=== PATIENT | male | born 1950 | race Hispanic/Latino ===

== ENCOUNTER 2025-02-10 00:29 | Inpatient (IN) | payer OTHER ==
[~2025-02-10] VITALS: Ht 170.2 cm; Wt 88.9 kg
[2025-02-10] VITALS (11 sets, daily range): BP systolic 103–124; BP diastolic 58–73; PULSE 54–71; RESP 16–18; TEMP 97.6–98; O2SAT 98
[2025-02-10] MEDS: 0.9% NACL 500ML IV.SOLN 500 ML IV ONE (00:53)
[2025-02-10] MEDS ORDERED: 0.9%NACL 1000ML 1,000 ML IV ONE (01:00)
[2025-02-10 01:03] LABS: IMMATURE GRANULOCYTE ABSOLUTE 0.03 K/uL (0-1); NUCLEATED RED BLOOD CELLS 0.0 % (0.0-0.19); PLATELET COUNT (AUTO) 177 K/uL (130-400); RED BLOOD CELL COUNT(AUTO) 5.65 MIL/uL (4.50-6.20); RED CELL DISTRIBUTION WIDTH 13.6 % (11.0-15.5); WHITE BLOOD COUNT (AUTO) 9.9 K/uL (4.8-10.8)
[2025-02-10 01:06] LABS: INR 1.06 (0.85-1.15)
[2025-02-10 01:07] LABS: CREATINE KINASE, TOTAL 106.0 U/L (21-232); CREATININE 1.3 mg/dL (0.5-1.3); GLOMERULAR FILTR. RATE CALC 57.0 mL/min (>90); SODIUM SERUM 138.0 mmol/L (136-145); UREA NITROGEN, BLOOD 21.0 mg/dL (7-18)
[2025-02-10 01:08] LABS: GLUCOSE,RANDOM 464.0 mg/dL (70-105)
--- NOTE | 2025-02-10 01:33 | ERN ---
General Chief Complaint: Chest Pain Stated Complaint: CHEST PAIN. SOB Time Seen by MD: 00:30 Time Seen by Midlevel: 00:30 Source: patient History of Present Illness Initial Comments The patient is a 74-year-old male with a past medical history of type 2 diabetes and hypertension presenting to the emergency department for evaluation of chest pain that started a proximally 1 hour prior to arrival. Patient states he was going to bed when the chest pain started. On arrival with the chest pain has improved. Allergies: Coded Allergies: No Known Drug Allergies (Unverified Allergy, Unknown, 08/31/15) Home Meds Reported Medications Metformin HCl (Metformin HCl) 500 Mg Tablet, 500 MG PO BID, TAB 08/31/15 Past Medical History Past Medical History: Diabetes-Type II, High Cholesterol Past Surgical History: Cholecystectomy, Other Surgical History Other: CARDIAC STENTS ROS Dictation CONSTITUTIONAL: Negative except for HPI HEAD/FACE: Negative except for HPI EENT: Negative except for HPI RESPIRATORY: Negative except for HPI GASTROINTESTINAL/ABDOMINAL: Negative except for HPI GENITOURINARY: Negative except for HPI MUSCULOSKELETAL: Negative except for HPI INTEGUMENTARY: Negative except for HPI NEUROLOGICAL/PSYCH: Negative except for HPI HEMATOLOGIC/LYMPHATIC: Negative except for HPI All Systems Negative, Except as noted above. 13 point review of systems assessed and all negative except for above. Physical Exam Physical Exam Dictation Vital Signs reviewed General Appearance: Alert, oriented x 3, no acute distress, well developed, nourished. Head and Face: non-traumatic. Eyes: PERRL, pink conjunctivas, eyelid no trauma, anterior chamber with arcus senilis. Ears: Pinnas intact and no signs of trauma or erythema ear canals clear and no discharge TM no erythema Nose: No discharge, no bleeding. Oropharynx: Mouth normal, tongue pink, pharynx clear,no erythema, tonsils no exudates, no abscesses noted, mucous membrane moist Neck: Supple, non-tender, no thyromegaly, no masses, no JVD, no bruits Breast:Deferred Chest:No tenderness, no crepitus, no paradoxical movement, no retractions Lungs:Clear, well-ventilated, symmetric, no rales, no wheezing, no rhonchi, no stridor, good breath sounds bilaterally Heart: Regular rate, regular rhythm, no murmur, no gallops Vascular: no peripheral edema, Abdomen: Soft, positive bowel sounds, nondistended, no guarding, nontender, no rebound, no masses no hepatomegaly, no splenomegaly, no Correa's sign, no hernias. Rectal: Deferred Genital: Deferred Neurological: Normal speech, motor function intact, sensory function intact Musculoskeletal: Neck nontender, full range of motion, back nontender, full range of motion, Extremities: nontender, full range of motion Skin: Color pink, dry, no turgor, no rash, no lacerations, no abrasions, no contusions. Lymphatic: Deferred Results Laboratory and Microbiology Lab and Micro Result Laboratory Tests Test 02/10/25 00:40 02/10/25 00:43 02/10/25 01:37 White Blood Count 9.9 K/uL (4.8-10.8) Red Blood Count 5.65 MIL/uL (4.50-6.20) Hemoglobin 16.9 g/dL (14.0-18.0) Hematocrit 50.1 % (42-54) Mean Corpuscular Volume 88.7 fL (79-99) Mean Corpuscular Hemoglobin 29.9 pg (27.0-33.0) Mean Corpuscular Hemoglobin Concent 33.7 g/dL (32.0-36.0) Red Cell Distribution Width 13.6 % (11.0-15.5) Platelet Count 177 K/uL (130-400) Mean Platelet Volume 11.2 fL (7.5-10.5) H Immature Granulocyte % (Auto) 0.3 % (0-1) Neutrophils (%) (Auto) 46.0 % (40.0-77.0) Lymphocytes (%) (Auto) 41.9 % (21.0-51.0) Monocytes (%) (Auto) 6.9 % (3.0-13.0) Eosinophils (%) (Auto) 4.2 % (0.0-8.0) Basophils (%) (Auto) 0.7 % (0.0-5.0) Neutrophils # (Auto) 4.6 K/uL (1.8-7.7) Lymphocytes # (Auto) 4.2 K/uL (1.0-4.8) Monocytes # (Auto) 0.7 K/uL (0.1-1.0) Eosinophils # (Auto) 0.42 K/uL (0.00-0.70) Basophils # (Auto) 0.07 K/uL (0.00-0.20) Absolute Immature Granulocyte (auto 0.03 K/uL (0-1) Nucleated Red Blood Cells 0.0 % (0.0-0.19) Prothrombin Time 11.2 SEC (9.6-11.6) Prothromb Time International Ratio 1.06 (0.85-1.15) Activated Partial Thromboplast Time 27.6 SEC (26.3-35.5) Sodium Level 138 mmol/L (136-145) Potassium Level 3.8 mmol/L (3.5-5.1) Chloride Level 99 mmol/L (101-111) L Carbon Dioxide Level 29 mmol/L (21-32) Blood Urea Nitrogen 21 mg/dL (7-18) H Creatinine 1.3 mg/dL (0.5-1.3) Glomerular Filtration Rate Calc 57 mL/min (>90) Random Glucose 464 mg/dL (70-105) *H Total Calcium 9.0 mg/dL (8.5-10.1) Magnesium Level 1.90 mg/dL (1.80-2.40) Total Creatine Kinase 106 U/L (21-232) # Troponin I High Sensitivity 21 ng/L (4-75) 174 ng/L (4-75) *H B-Type Natriuretic Peptide 217 pg/mL (0-100) H Whole Blood Glucose 439 MG/DL (70-110) *H Bedside Glucose Comment Notified Nurse Labs Reviewed?: Yes MDM MDM: The patient is a 74-year-old male with a past medical history of type 2 diabetes and hypertension presenting to the emergency department for evaluation of chest pain that started a proximally 1 hour prior to arrival. Patient states he was going to bed when the chest pain started. On arrival with the chest pain has improved. On physical examination the patient is in no acute distress. Initial vital signs are stable. CBC shows no leukocytosis, no anemia, no thrombocytopenia. Chemistries reveal hyperglycemia with a random glucose of 464. CO2 normal. Anion gap normal. Patient is not in DKA. Patient was given 500 cc of IV fluids and was given 5 units of regular IV insulin. Initial troponin is negative. Initial EKG shows normal sinus rhythm with no ST elevations or ST depressions noted. A repeat troponin was performed which is now elevated at 174. A repeat EKG was performed which shows ST depressions consistent with an NSTEMI. Patient was started on heparin. Case discussed with benchmark service who agrees to admit for further observation and management. Differential diagnosis: NSTEMI, STEMI, costochondritis Rationale: Tests considered and ordered secondary to shared decision making include: Previous outside records reviewed: Old ER visits. Risk of complication and/or morbidity or mortality of patient management: None Medications-Per medication reconciliation Need for hospitalization: Patient does meet criteria for hospitalization. Need for emergency major/minor surgery: No There are no social concerns with this patient. Prescription drug management Prescriptions will include symptomatic care Patient's prior external medical records from other ER visits were reviewed by me as indicated. Prior testing and results from previous visits were reviewed. Prior tests were taken into account with medical decision making and resource utilization, independent historian/historians were used to obtain complete medical history. I independently interpreted the test that were performed, results were reviewed by me and considered findings on radiology if ordered. Medical management and examination interpretation discussions were had by me with other qualified healthcare professionals as indicated for the patient's care. ED Course Orders Procedure Category Date Status Time 12 Lead Ekg Tracing- EKG 02/10/25 Logged Technical 00:30 B-Type Natriuretic LAB 02/10/25 Complete Peptide 00:30 Cbc With Differential LAB 02/10/25 Complete 00:30 Basic Metabolic Panel LAB 02/10/25 Complete 00:30 Creatine Kinase, Total LAB 02/10/25 Complete 00:30 Magnesium LAB 02/10/25 Complete 00:30 Pt And Ptt LAB 02/10/25 Complete 00:30 Troponin I High LAB 02/10/25 Complete Sensitivity 00:30 Chest 1vw RAD 02/10/25 Taken 00:30 Bedside Glucose CPOE 02/10/25 Transmitted Fingerstick 00:41 0.9%Nacl 1000ml (Ns PHA 02/10/25 Complete 1000ml) 01:00 0.9% Nacl 500ml PHA 02/10/25 Complete Iv.Soln (Ns 500ml 01:00 Troponin I High LAB 02/10/25 Complete Sensitivity 01:40 Insulin Regular, PHA 02/10/25 Complete Human 3ml (Humulin R 01:30 Bedside Glucose CPOE 02/10/25 Transmitted Fingerstick 02:22 Current Medications Medications (Trade) Dose Ordered Sig/Carol Route PRN Reason Start Time Stop Time Status Last Admin Dose Admin Insulin Human Regular (humuLIN R 100 UNIT/ML 3ML) 5 unit ONCE ONCE IV 02/10/25 01:30 02/10/25 01:31 DC 02/10/25 01:30 Sodium Chloride 500 ml @ 0 mls/hr ONCE ONCE IV 02/10/25 01:00 02/10/25 01:01 DC 02/10/25 00:53 Sodium Chloride 1,000 ml @ 0 mls/hr ONCE ONCE IV 02/10/25 01:00 02/10/25 00:46 DC Vital Signs Date Time Temp Pulse Resp B/P (MAP) Pulse Ox O2 Delivery O2 Flow Rate FiO2 02/10/25 00:49 76 12 95/68 96 Room Air* 0 21 02/10/25 00:30 96.4 85 18 96/61 96 Room Air HEART Score Response (Comments) Value History: Moderate suspicion (+1) 1 EKG: Repolarization changes 1 Age: > 65yrs (+2) 2 Risk Factors: 1-2 risk factors (+1) 1 Initial Troponin: >3x Normal Limit (+2) 2 HEART Score Risk: High Risk for MACE (7-10) Total 7 DX & DISP Disposition: Inpatient Departure Impression: Primary Impression: Chest pain Additional Impressions: Non-STEMI (non-ST elevated myocardial infarction), Hyperglycemia Condition: Stable Referrals: NELLY DAVIS MD (PCP) Time of Disposition: 02:46 I have reviewed the case, and I agree with, Diagnosis and Plan I performed the substantive portion of the visit. I have reviewed and personally made and approve the management plan that is documented in the note by myself or the [facility]TON. I acknowledge for responsibility for the patient's management plan. ORLANDO PRAJAPATI PAC Feb 10, 2025 01:33
[2025-02-10] MEDS: ASPIRIN 325MG TAB PO ONE (02:32)
--- NOTE | 2025-02-10 02:49 | HMCIMG ---
EXAM: CR Chest, 1 view CLINICAL HISTORY: Shortness of breath. COMPARISON: None provided. FINDINGS: The lungs show no infiltrates or other acute findings. No pleural effusion or pneumothorax. The cardiomediastinal silhouette is within normal limits. No acute osseous abnormality. IMPRESSION: No acute cardiopulmonary process is evident. /[place]
--- NOTE | 2025-02-10 04:33 | NUR ---
Keyon DUFF,HOIST WORKER AT BEDSIDE
[2025-02-10] MEDS ORDERED: GLUCAGON 1MG KIT 1 MG ML IM PRN (05:00)
[2025-02-10] MEDS ORDERED: NITROGLYCERIN 0.4 MG SL TAB SL PRN (05:00)
[2025-02-10] MEDS ORDERED: DEXTROSE 50%-WATER 50 ML DISP.SYRIN IV PRN (05:00)
--- NOTE | 2025-02-10 05:28 | HP ---
[facility] Date of Service: Feb 10, 2025 Time of Service: 05:02 PCP: Zahraa Salvador HISTORY OF PRESENT ILLNESS: This is a 74-year-old male,a [employer] by m[employer]onism whith past medical history of diabetes, hyperlipidemia and NE/coronary artery disease with cardiac stent who presented to the Ed for complaints of midsternal chest pain that is non radiating associated with diaphoresis and this happened when patient was laying down in bed aroun 11:50 pm last night and decided to come to the ED for evaluation.Patient reports pain was persistent.As per patient he had a history of heart attack before and underwent a stent placement.Patient reports the only medication he is taking is Metformin.Patient states he is supposed to be on Aspirin but has stopped taking it.Patient reports he occasionally drinks beer and last drink was yesterday ,had 2 beers he said. Seen and examined patient in the ER awake,alert and coherent,appears comfortable.Patient denies fever,chills,cough,nausea,vomiting,palpitation and shortness of breath. Latest vital signs temperature 98.2, heart rate 75, blood pressure 124/70 saturation 97% on room air. Labs: CBC unremarkable. Chloride 99, BUN 21, random glucose 469 to 439 to 327. Troponin from 21-174. ECG result revealed revealed sinus rhythm heart rate 85 with atrial premature complex anterolateral infarct age indeterminate. Second EKG result revealed sinus rhythm heart rate 73 with left anterior fascicular block. Probable anterolateral infarct age indeterminate. Abnormal T consider ischemia lateral leads.. Chest x-ray result revealed no acute cardiopulmonary process is evident. While in the ER patient received 1500 mL NS bolus, insulin 5 units IV, aspirin 325 mg p.o. and patient was started on heparin drip per ACS protocol. We will admit patient for further medical management. REVIEW OF SYSTEMS CONSTITUTIONAL: Complain of diaphoresis Denies fevers, chills, or night sweats. No unintentional weight loss reported. NEUROLOGICAL: Denies headache, amaurosis fugax, motor weakness, sensory deficit, vertigo/spinning sensation, gait abnormalities, or tremors. ENT: No hearing loss, otalgia, otorrhea, rhinitis, rhinorrhea, hoarseness, or sore throat. CARDIOVASCULAR: Complain of midsternal chest pain Deniesdyspnea on exertion, orthopnea, paroxysmal nocturnal dyspnea, palpitations, life-threatening arrhythmias, claudication. PULMONARY: Denies any shortness of breath, cough, phlegm/sputum, hemoptysis, pleuritic chest pain. SLEEP: Denies morning headaches, daytime somnolence or napping. Denies difficulty falling asleep, staying asleep, waking from sleep. Denies knowledge of snoring. GASTROINTESTINAL: Denies any type of dysphagia to either liquids or solids. Denies nausea, vomiting, pyrosis, early satiety, abdominal pain, diarrhea, constipation, or changes in stool consistency or caliber. Denies coffee-ground emesis, hematemesis, hematochezia, or melanotic stools. GENITOURINARY: Denies frequency, urgency, nocturia, hematuria or incontinence (Storage/Irritative symptoms.) Low urinary stream, straining to void, urinary intermittency or hesitancy, splitting of the voiding stream, terminal dribbling. ENDOCRINOLOGIC: Denies polyuria, polydipsia, polyphagia or heat/cold intolerances. HEMATOLOGIC: Denies thrombophilia/previous clots, or coagulopathy/bleeding disorders. ONCOLOGIC: Denies personal history of malignancy. DERMATOLOGIC: Denies rashes or pruritus. PSYCHIATRIC: Denies any suicidal or homicidal ideation. Denies hallucinations. PAST MEDICAL HISTORY: [ Diabetes, hyperlipidemia, NE/coronary artery disease ] PAST SURGICAL HISTORY: [ Cardiac stent, cholecystectomy and left inguinal hernia repair ] PAST SOCIAL HISTORY: [ Patient lives with . Patient admits he drinks two beer yesterday. Patient reports he occasional drinks alcohol denies cigarette and recreational drug use. ] FAMILY HISTORY: [ Diabetes, cardiovascular disease, asthma and cancer ] Coded Allergies: No Known Drug Allergies (Unverified Allergy, Unknown, 08/31/15) PHYSICAL EXAM GENERAL APPEARANCE: The patient is awake, alert, and oriented, in no acute cardiopulmonary distress. NEUROLOGICAL: Cranial nerves II-XII grossly intact. Motor is 5/5 in bilateral upper and lower extremities proximal to distal. No sensory deficits. HEENT: Face is symmetric. Pupils are equal and reactive. Extraocular movements are intact. NECK: Supple. No JVD. No thyromegaly. No submental, submandibular, pre- /postauricular, occipital or supraclavicular lymphadenopathy. CHEST: Normal chest expansion. No Telemetry. LUNGS: Absence of any rales, rhonchi or any wheezing. CARDIOVASCULAR: Regular. S1 and S2 normal. No appreciable rubs, murmurs or g allops. ABDOMEN: Soft, nontender, and nondistended. There is no rebound, voluntary gua rding, or rigidity. : Deferred. No De Jesus. EXTREMITIES: Non-edematous and not cyanotic. No clubbing. Good capillary refill. SKIN: No skin breakdown. Vital Sign (Last 24 Hours) 02/10/25 03:54 Temp 98.2 Pulse 75 Resp 16 B/P (MAP) 124/70 Pulse Ox 97 O2 Delivery Room Air* O2 Flow Rate 0 FiO2 21 LABS: Laboratory: Test 02/10/25 03:51 02/10/25 01:37 02/10/25 00:43 02/10/25 00:40 Range/Units Whole Blood Glucose 327 H 70-110 MG/DL Troponin I High Sensitivity 174 *H 4-75 ng/L Bedside Glucose Comment Notified Nurse White Blood Count 9.9 4.8-10.8 K/uL Red Blood Count 5.65 4.50-6.20 MIL/uL Hemoglobin 16.9 14.0-18.0 g/dL Hematocrit 50.1 42-54 % Mean Corpuscular Volume 88.7 79-99 fL Mean Corpuscular Hemoglobin 29.9 27.0-33.0 pg Mean Corpuscular Hemoglobin Concent 33.7 32.0-36.0 g/dL Red Cell Distribution Width 13.6 11.0-15.5 % Platelet Count 177 130-400 K/uL Mean Platelet Volume 11.2 H 7.5-10.5 fL Immature Granulocyte % (Auto) 0.3 0-1 % Neutrophils (%) (Auto) 46.0 40.0-77.0 % Lymphocytes (%) (Auto) 41.9 21.0-51.0 % Monocytes (%) (Auto) 6.9 3.0-13.0 % Eosinophils (%) (Auto) 4.2 0.0-8.0 % Basophils (%) (Auto) 0.7 0.0-5.0 % Neutrophils # (Auto) 4.6 1.8-7.7 K/uL Lymphocytes # (Auto) 4.2 1.0-4.8 K/uL Monocytes # (Auto) 0.7 0.1-1.0 K/uL Eosinophils # (Auto) 0.42 0.00-0.70 K/uL Basophils # (Auto) 0.07 0.00-0.20 K/uL Absolute Immature Granulocyte (auto 0.03 0-1 K/uL Nucleated Red Blood Cells 0.0 0.0-0.19 % Prothrombin Time 11.2 9.6-11.6 SEC Prothromb Time International Ratio 1.06 0.85-1.15 Activated Partial Thromboplast Time 27.6 26.3-35.5 SEC Sodium Level 138 136-145 mmol/L Potassium Level 3.8 3.5-5.1 mmol/L Chloride Level 99 L 101-111 mmol/L Carbon Dioxide Level 29 21-32 mmol/L Blood Urea Nitrogen 21 H 7-18 mg/dL Creatinine 1.3 0.5-1.3 mg/dL Glomerular Filtration Rate Calc 57 >90 mL/min Random Glucose 464 *H 70-105 mg/dL Total Calcium 9.0 8.5-10.1 mg/dL Magnesium Level 1.90 1.80-2.40 mg/dL Total Creatine Kinase 106 # 21-232 U/L B-Type Natriuretic Peptide 217 H 0-100 pg/mL Current Medications Medications (Trade) Dose Ordered Sig/Carol Route PRN Reason Start Time Stop Time Status Last Admin Dose Admin Acetaminophen (TYLenol 325MG TAB) 650 mg Q4H PRN PO MILD PAIN (1-3) 02/10/25 05:00 03/12/25 04:59 Acetaminophen (TYLenol 325MG TAB) 650 mg Q6H PRN PO TEMPERATURE GREATER THAN 101.5 02/10/25 05:00 03/12/25 04:59 Aspirin (Aspirin 81mg Ec Tab) 81 mg DAILY PO 02/10/25 09:00 03/12/25 08:59 Dextrose (D50w) 50 ml AD PRN IV HYPOGLYCEMIA PROTOCOL 02/10/25 05:00 03/12/25 04:59 Famotidine (Pepcid 20mg Tab) 20 mg DAILY PO 02/10/25 09:00 03/12/25 08:59 Glucagon (Glucagon 1mg Kit) 1 mg AD PRN IM HYPOGLYCEMIA PROTOCOL 02/10/25 05:00 03/12/25 04:59 Heparin Sodium/ Dextrose 250 ml @ 0 mls/hr PROTOCOL IV 02/10/25 03:00 03/12/25 02:59 02/10/25 03:00 16.2 MLS/HR Insulin Human Regular (humuLIN R 100 UNIT/ML 3ML) INSULIN SLIDING SCAL... Q4H SQ 02/10/25 05:00 03/12/25 04:59 Magnesium Sulfate 50 ml @ 0 mls/hr PROTOCOL PRN IV OTHER [SEE ORDER COMMENTS] 02/10/25 05:00 03/12/25 04:59 Nitroglycerin (Nitrostat) 0.4 mg PROTOCOL PRN SL CHEST PAIN 02/10/25 05:00 03/12/25 04:59 Ondansetron HCl (zoFRAN 4MG INJ) 4 mg Q6H PRN IV NAUSEA/VOMITING 02/10/25 05:00 03/12/25 04:59 Potassium Chloride 100 ml @ 100 mls/hr AD PRN IV POTASSIUM PROTOCOL 02/10/25 05:00 03/12/25 04:59 Potassium Chloride (K-Dur/Klor-Con 20meq) 20 meq AD PRN PO POTASSIUM PROTOCOL 02/10/25 05:00 03/12/25 04:59 Potassium Chloride (KCl 10% Elixir 20meq/15ml) 20 meq AD PRN PO POTASSIUM PROTOCOL 02/10/25 05:00 03/12/25 04:59 Sodium Chloride 1,000 ml @ 100 mls/hr Q10H IV 02/10/25 05:00 03/12/25 04:59 DIAGNOSTICS / RADIOLOGY: [ ] ASSESSMENT: Chest pain rule out ACS: NSTEMI POA Hyperglycemia secondary to uncontrolled diabetes POA Hyperlipidemia POA Obesity POA NE/Coronary artery disease with cardiac stent POA PLAN: We will admit patient in PCCU We will start on consistent carb diet We will start on aspirin 81 mg p.o. daily We will start on famotidine 20 mg p.o. daily for GI prophylaxis We will start NS @ 100 ml / hr x 1 bag and re evaluate We will replace electrolytes as needed per protocol We will start on insulin sliding scale q.4 hours with hypoglycemia protocol We will add prn medication for fever,pain,cough , nausea and vomiting We will reconcile home meds once medlist available We will trend troponin q.6 x3 We will request for echocardiogram We will seek Cardiology consultation We will request labs in am Further orders to follow depending on above results Case discussed with attending physician and came up with above treatment and plan of care. ADVANCED CARE PLANNING 1. Which of the following were discussed? Hospice Care - No Therapeutic options - Yes Advance Directives - No Other discussions - 2. Discussed with who? Patient and Emily 3. Voluntary nature of this service was explained to the patient? Yes 4. Amount of time spent - _24 min 5. Reviewed by Physician? (if this service was performed by NPP) Yes Patient seen and examined by me. Agree with note by WIND UP OPERATOR SEE ADDITIONAL ORDERS PER CHART DISCUSSED WITH NURSING STAFF MIGUEL DUFF DATA KEYER Feb 10, 2025 05:28
[2025-02-10] MEDS: 0.9%NACL 1000ML 1,000 ML IV SCH (05:56)
--- NOTE | 2025-02-10 06:05 | EKG ---
[facility] Test Date: 2025-02-10 Test Time: 02:31:00 Pat Name: EMMY GRACE Department: [facility]HIP Room: 201 Gender: M Photogeologist: [id number] : 1950 Requested By: ORLANDO PRAJAPATI Order Number: [id number] Reading MD: Benjamin Don Measurements Intervals [place] Rate: 73 P: 36 [place]: 170 QRS: -42 QRSD: 88 T: 186 QT: 367 QTc: 404 Interpretive Statements Sinus rhythm Left anterior fascicular block Old extensive anteroalateral myocardial infarction. Inferolateral ischemic changes. Compared to ECG 03/10/2016 06:24:08 Left anterior fascicular block now present ST-wave abnormality now present Possible ischemia now present Myocardial infarct finding still present Electronically Signed On 02-10-2025 19:03:15 SLIPPER MAKER by Benjamin Don Please click the below link to view image of tracing.
--- NOTE | 2025-02-10 06:06 | EKG ---
[facility] Test Date: 2025-02-10 Test Time: 00:27:05 Pat Name: EMMY GRACE Department: EDHIP Room: 201 Gender: M Licensed Occupational Therapist: [id number] : 1950 Requested By: ORLANDO PRAJAPATI Order Number: [id number] Reading MD: Benjamin Don Measurements Intervals [place] Rate: 85 P: 44 [place]: 171 QRS: -10 QRSD: 100 T: 73 QT: 357 QTc: 424 Interpretive Statements Sinus rhythm Atrial premature complex Anterolateral infarct, age indeterminate Compared to ECG 03/10/2016 06:24:08 Atrial premature complex(es) now present Myocardial infarct finding still present Electronically Signed On 02-10-2025 19:02:10 SITE PROMOTION AGENT by Benjamin Don Please click the below link to view image of tracing.
[2025-02-10 09:09] LABS: INR 1.01 (0.85-1.15)
[2025-02-10] MEDS: FAMOTIDINE 20MG TAB PO SCH (09:11)
[2025-02-10] MEDS: ASPIRIN 81 MG EC TAB PO SCH (09:11)
--- NOTE | 2025-02-10 09:21 | NUR ---
DCP:HOME Pt currently lives at home with his Emily Coffey [phone]. Pt states that he uses a cane at home to ambulate. Pt does not have any home health or provider services. Pt states that he is able to complete ADL independently. PCP is [place] [facility] and uses [facility] for any RX needs. At DC pt will want to go home and family can assist with transportation.
[2025-02-10 10:02] LABS: APPEARANCE,URINE CLEAR (CLEAR); GLUCOSE, URINE (UA) >=1000 mg/dL (NEGATIVE); LEUKOCYTE ESTERASE ,URINE NEGATIVE Leu/uL (NEGATIVE); NITRATE,URINE NEGATIVE (NEGATIVE); OCCULT BLOOD,URINE NEGATIVE (NEGATIVE)
[2025-02-10 10:03] LABS: ADD UA MICROSCOPIC YES
[2025-02-10 10:28] LABS: SQUAMOUS EPITHELIAL CELL,UR RARE /HPF (0-2)
--- NOTE | 2025-02-10 11:51 | PN ---
[facility] PROGRESS NOTE Date of Service: Feb 10, 2025 Time of Service: 11:27 HISTORY OF PRESENT ILLNESS: This is a 74-year-old male,a [employer] whith past medical history of diabetes, hyperlipidemia and AZ/coronary artery disease with cardiac stent who presented to the Ed for complaints of midsternal chest pain that is non radiating associated with diaphoresis and this happened when patient was laying down in bed aroun 11:50 pm last night and decided to come to the ED for evaluation.Patient reports pain was persistent.As per patient he had a history of heart attack before and underwent a stent placement.Patient reports the only medication he is taking is Metformin.Patient states he is supposed to be on Aspirin but has stopped taking it.Patient reports he occasionally drinks beer and last drink was yesterday ,had 2 beers he said. Seen and examined patient in the ER awake,alert and coherent,appears comfortable.Patient denies fever,chills,cough,nausea,vomiting,palpitation and shortness of breath. Latest vital signs temperature 98.2, heart rate 75, blood pressure 124/70 saturation 97% on room air. Labs: CBC unremarkable. Chloride 99, BUN 21, random glucose 469 to 439 to 327. Troponin from . ECG result revealed revealed sinus rhythm heart rate 85 with atrial premature complex anterolateral infarct age indeterminate. Second EKG result revealed sinus rhythm heart rate 73 with left anterior fascicular block. Probable anterolateral infarct age indeterminate. Abnormal T consider ischemia lateral leads.. Chest x-ray result revealed no acute cardiopulmonary process is evident. While in the ER patient received 1500 mL NS bolus, insulin 5 units IV, aspirin 325 mg p.o. and patient was started on heparin drip per ACS protocol. SUBJECTIVE: 02/10/25: Patient was seen and evaluated in ED9. Patient was alert, awake and orientedX3. Patient reports that he doesn't have any chest pain today. Patient reports occasional shortness of breath during nights. Patient denies any shortness of breath, nausea, vomiting, palpitations and lightheadedness. Patient denies any abdominal pain, burning urination. Patient mentions that he only takes metformin 3-4 times per week and has stopped taking aspirin because it wasn't reconciled. Troponin from . 2D ECHO was done, pending results. Patient is currently on Heparin drip REVIEW OF SYSTEMS CONSTITUTIONAL: Denies fevers, chills, or night sweats. No unintentional weight loss reported. NEUROLOGICAL: Denies headache, amaurosis fugax, motor weakness, sensory deficit, vertigo/spinning sensation, gait abnormalities, or tremors. ENT: No hearing loss, otalgia, otorrhea, rhinitis, rhinorrhea, hoarseness, or sore throat. CARDIOVASCULAR: Denies chest pain, dyspnea on exertion, orthopnea, paroxysmal nocturnal dyspnea, palpitations, life-threatening arrhythmias, claudication. PULMONARY: Denies any shortness of breath, cough, phlegm/sputum, hemoptysis, pleuritic chest pain. SLEEP: Denies morning headaches, daytime somnolence or napping. Denies difficulty falling asleep, staying asleep, waking from sleep. Denies knowledge of snoring. GASTROINTESTINAL: Denies any type of dysphagia to either liquids or solids. Denies nausea, vomiting, pyrosis, early satiety, abdominal pain, diarrhea, constipation, or changes in stool consistency or caliber. Denies coffee-ground emesis, hematemesis, hematochezia, or melanotic stools. GENITOURINARY: Denies frequency, urgency, nocturia, hematuria or incontinence (Storage/Irritative symptoms.) Low urinary stream, straining to void, urinary intermittency or hesitancy, splitting of the voiding stream, terminal dribbling. ENDOCRINOLOGIC: Denies polyuria, polydipsia, polyphagia or heat/cold intolerances. HEMATOLOGIC: Denies thrombophilia/previous clots, or coagulopathy/bleeding disorders. ONCOLOGIC: Denies personal history of malignancy. DERMATOLOGIC: Denies rashes or pruritus. PSYCHIATRIC: Denies any suicidal or homicidal ideation. Denies hallucinations. PHYSICAL EXAM GENERAL APPEARANCE: The patient is awake, alert, and oriented, in no acute cardiopulmonary distress. NEUROLOGICAL: Cranial nerves II-XII grossly intact. Motor is 5/5 in bilateral upper and lower extremities proximal to distal. No sensory deficits. HEENT: Face is symmetric. Pupils are equal and reactive. Extraocular movements are intact. NECK: Supple. No JVD. No thyromegaly. No submental, submandibular, pre- /postauricular, occipital or supraclavicular lymphadenopathy. CHEST: Normal chest expansion. No Telemetry. LUNGS: Absence of any rales, rhonchi or any wheezing. CARDIOVASCULAR: Regular. S1 and S2 normal. No appreciable rubs, murmurs or gallops. ABDOMEN: Soft, nontender, and nondistended. There is no rebound, voluntary guarding, or rigidity. : Deferred. No De Jesus. EXTREMITIES: Non-edematous and not cyanotic. No clubbing. Good capillary refill. SKIN: No skin breakdown. Vital Signs (last 8hr) Date Time Temp Pulse Resp B/P (MAP) Pulse Ox O2 Delivery O2 Flow Rate FiO2 02/10/25 07:28 97.9 71 14 121/69 98 Room Air* 0 21 02/10/25 05:58 98.1 71 16 111/68 97 Room Air* 0 21 02/10/25 03:54 98.2 75 16 124/70 97 Room Air* 0 21 LABS: Laboratory: Test 02/10/25 09:10 02/10/25 08:54 02/10/25 08:51 02/10/25 01:37 Range/Units Urine Color LIGHT-YELLOW YELLOW Urine Appearance CLEAR CLEAR Urine pH 5.5 5.0-8.0 Urine Specific [place] 1.039 H 1.001-1.031 Urine Protein NEGATIVE NEGATIVE mg/dL Urine Glucose (UA) >=1000 H NEGATIVE mg/dL Urine Ketones 10 H NEGATIVE mg/dL Urine Occult Blood NEGATIVE NEGATIVE Urine Nitrate NEGATIVE NEGATIVE Urine Bilirubin NEGATIVE NEGATIVE mg/dL Urine Urobilinogen 0.2 0.2-1.0 mg/dL Urine Leukocyte Esterase NEGATIVE NEGATIVE Minerva/uL Urine RBC 0-1 0-1 /HPF Urine WBC 6-10 H 0-1 /HPF Urine Squamous Epithelial Cells RARE 0-2 /HPF Urine Bacteria None None Seen /HPF Whole Blood Glucose 285 H 70-110 MG/DL Prothrombin Time 10.7 9.6-11.6 SEC Prothromb Time International Ratio 1.01 0.85-1.15 Activated Partial Thromboplast Time 59.9 #H 26.3-35.5 SEC Whole Blood Ketones Quantitative 0.4 0.0-0.6 mmol/L Troponin I High Sensitivity 174 *H 4-75 ng/L Test 02/10/25 00:43 02/10/25 00:40 Range/Units Bedside Glucose Comment Notified Nurse White Blood Count 9.9 4.8-10.8 K/uL Red Blood Count 5.65 4.50-6.20 MIL/uL Hemoglobin 16.9 14.0-18.0 g/dL Hematocrit 50.1 42-54 % Mean Corpuscular Volume 88.7 79-99 fL Mean Corpuscular Hemoglobin 29.9 27.0-33.0 pg Mean Corpuscular Hemoglobin Concent 33.7 32.0-36.0 g/dL Red Cell Distribution Width 13.6 11.0-15.5 % Platelet Count 177 130-400 K/uL Mean Platelet Volume 11.2 H 7.5-10.5 fL Immature Granulocyte % (Auto) 0.3 0-1 % Neutrophils (%) (Auto) 46.0 40.0-77.0 % Lymphocytes (%) (Auto) 41.9 21.0-51.0 % Monocytes (%) (Auto) 6.9 3.0-13.0 % Eosinophils (%) (Auto) 4.2 0.0-8.0 % Basophils (%) (Auto) 0.7 0.0-5.0 % Neutrophils # (Auto) 4.6 1.8-7.7 K/uL Lymphocytes # (Auto) 4.2 1.0-4.8 K/uL Monocytes # (Auto) 0.7 0.1-1.0 K/uL Eosinophils # (Auto) 0.42 0.00-0.70 K/uL Basophils # (Auto) 0.07 0.00-0.20 K/uL Absolute Immature Granulocyte (auto 0.03 0-1 K/uL Nucleated Red Blood Cells 0.0 0.0-0.19 % Sodium Level 138 136-145 mmol/L Potassium Level 3.8 3.5-5.1 mmol/L Chloride Level 99 L 101-111 mmol/L Carbon Dioxide Level 29 21-32 mmol/L Blood Urea Nitrogen 21 H 7-18 mg/dL Creatinine 1.3 0.5-1.3 mg/dL Glomerular Filtration Rate Calc 57 >90 mL/min Random Glucose 464 *H 70-105 mg/dL Total Calcium 9.0 8.5-10.1 mg/dL Magnesium Level 1.90 1.80-2.40 mg/dL Total Creatine Kinase 106 # 21-232 U/L B-Type Natriuretic Peptide 217 H 0-100 pg/mL Current Medications Medications (Trade) Dose Ordered Sig/Carol Route PRN Reason Start Time Stop Time Status Last Admin Dose Admin Acetaminophen (TYLenol 325MG TAB) 650 mg Q4H PRN PO MILD PAIN (1-3) 02/10/25 05:00 03/12/25 04:59 Acetaminophen (TYLenol 325MG TAB) 650 mg Q6H PRN PO TEMPERATURE GREATER THAN 101.5 02/10/25 05:00 03/12/25 04:59 Aspirin (Aspirin 81mg Ec Tab) 81 mg DAILY PO 02/10/25 09:00 03/12/25 08:59 02/10/25 09:11 81 MG Dextrose (D50w) 50 ml AD PRN IV HYPOGLYCEMIA PROTOCOL 02/10/25 05:00 03/12/25 04:59 Famotidine (Pepcid 20mg Tab) 20 mg DAILY PO 02/10/25 09:00 03/12/25 08:59 02/10/25 09:11 20 MG Glucagon (Glucagon 1mg Kit) 1 mg AD PRN IM HYPOGLYCEMIA PROTOCOL 02/10/25 05:00 03/12/25 04:59 Heparin Sodium/ Dextrose 250 ml @ 0 mls/hr PROTOCOL IV 02/10/25 03:00 03/12/25 02:59 02/10/25 03:00 16.2 MLS/HR Insulin Human Regular (humuLIN R 100 UNIT/ML 3ML) INSULIN SLIDING SCAL... Q4H SQ 02/10/25 05:00 02/10/25 11:10 DC 02/10/25 09:15 6 UNIT Insulin Human Regular (humuLIN R 100 UNIT/ML 3ML) INSULIN SLIDING SCAL... Q6H6 SQ 02/10/25 12:00 03/12/25 04:59 Magnesium Sulfate 50 ml @ 0 mls/hr PROTOCOL PRN IV OTHER [SEE ORDER COMMENTS] 02/10/25 05:00 03/12/25 04:59 Nitroglycerin (Nitrostat) 0.4 mg PROTOCOL PRN SL CHEST PAIN 02/10/25 05:00 03/12/25 04:59 Ondansetron HCl (zoFRAN 4MG INJ) 4 mg Q6H PRN IV NAUSEA/VOMITING 02/10/25 05:00 03/12/25 04:59 Potassium Chloride 100 ml @ 100 mls/hr AD PRN IV POTASSIUM PROTOCOL 02/10/25 05:00 03/12/25 04:59 Potassium Chloride (K-Dur/Klor-Con 20meq) 20 meq AD PRN PO POTASSIUM PROTOCOL 02/10/25 05:00 03/12/25 04:59 Potassium Chloride (KCl 10% Elixir 20meq/15ml) 20 meq AD PRN PO POTASSIUM PROTOCOL 02/10/25 05:00 03/12/25 04:59 Sodium Chloride 1,000 ml @ 100 mls/hr Q10H IV 02/10/25 05:00 03/12/25 04:59 02/10/25 05:56 100 MLS/HR DIAGNOSTICS / RADIOLOGY: [place] [address] [address] IMAGING REPORT Signed PATIENT: EMMY GRACE MR#: [id number] : 1950 SEX: M AGE: 74 LOCATION: [facility] ORDER STATUS: REG ER REPORT#: [id number] SERVICE REASON: sob ORDERING PHYSICIAN: ORLANDO PRAJAPATI PAC PROCEDURE: CXR1VW - CHEST 1VW EXAM: CR Chest, 1 view CLINICAL HISTORY: Shortness of breath. COMPARISON: None provided. FINDINGS: The lungs show no infiltrates or other acute findings. No pleural effusion or pneumothorax. The cardiomediastinal silhouette is within normal limits. No acute osseous abnormality. IMPRESSION: No acute cardiopulmonary process is evident. /[place] DICTATED BY: LAN BURR Jr., MD DATE: 02/10/25347 ELECTRONICALLY SIGNED BY: LAN BURR Jr., MD DATE: 02/10/25347 ASSESSMENT: Chest pain rule out ACS: NSTEMI POA Hyperglycemia secondary to uncontrolled diabetes POA Hyperlipidemia POA Medication noncompliance, POA Obesity POA AZ/Coronary artery disease with cardiac stent POA PLAN: Chest pain rule out ACS: NSTEMI POA: * On presentation patient vitals were temperature 98.2, heart rate 75, blood pressure 124/70 saturation 97% on room air. Pertinent labs - Troponin from 21- 174. Total CK-106 * EKG was done which revealed sinus rhythm heart rate 85 with atrial premature complex anterolateral infarct age indeterminate. Second EKG result revealed sinus rhythm heart rate 73 with left anterior fascicular block. Probable anterolateral infarct age indeterminate. Abnormal T consider ischemia lateral leads. * PERC score was one, Wells score was zero. Very low suspicion for Pulmonary Embolism. * Chest x-ray was done, results show no acute cardiopulmonary process * 2-D ECHO was ordered, pending results. * Lipid panel was ordered, pending results. * Cardiology was consulted, will follow their recommendations. * Started on Heparin drip. * Started patient on aspirin 81 mg p.o. daily * Troponin trends 21>174 * Will trend troponin q.6 x3 Hyperglycemia secondary to uncontrolled diabetes POA: * On presentation Random blood glucose levels 469>439>327. * Ketones - 0.4, Anion gap was 10. DKA was ruled out. * Patient started on Insulin Sliding Scale with monitoring Q6H. * Started patient on IV fluids Sodium Chloride 1000mls @ 100mls/hr. * Endocrinology was consulted, will follow their recommendations. Supportive measures * GI prophylaxis with Famotidine * DVT prophylaxis with SCD's. Already on Heparin. ATTESTATION BY PHYSICIAN I have seen and examined the patient. I reviewed the documentation, medical decision making, and treatment plan as noted by the resident physician above. I agree with the findings and plan of care. DIANNE STEELE MD, SHAJI MD Feb 10, 2025 11:51
--- NOTE | 2025-02-10 12:53 | CONS ---
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 He presented to the emergency room with acute onset of midsternal chest pressure associated with diaphoresis but no dyspnea, beginning at about midnight prompting ER visit. He ruled in for an NSTEMI with initial troponin of 21 increasing further to 174 on the 2nd troponin. His 12 lead EKG in the ER demonstrates an extensive old anterior wall ME with QS is from V1 to V4 and [address] depressions leads 2, AVF, and V5 and V6. Preliminary report of the 2D echo today demonstrated an LVEF of 35-40%. He has had no recurrent chest discomfort since approximately 1 hour after arrival. Past Medical History: As per HPI and summarized below Past Surgical History: Hernia repair Cholecystectomy Family History: Noncontributory Social History: Noncontributory Habits: Never smoker. Occasional alcohol consumption. Denies illicit drug use Home Meds: Metformin 100 mg b.i.d. Current Meds: Medications Dose Ordered Sig/Carol Start Time Stop Time Status Last Admin Heparin Sodium/ Dextrose 250 ml @ 0 mls/hr PROTOCOL 02/10/25 03:00 03/12/25 02:59 02/10/25 03:00 Acetaminophen 650 mg Q6H PRN 02/10/25 05:00 03/12/25 04:59 Acetaminophen 650 mg Q4H PRN 02/10/25 05:00 03/12/25 04:59 Ondansetron HCl 4 mg Q6H PRN 02/10/25 05:00 03/12/25 04:59 Nitroglycerin 0.4 mg PROTOCOL PRN 02/10/25 05:00 03/12/25 04:59 Famotidine 20 mg DAILY 02/10/25 09:00 03/12/25 08:59 02/10/25 09:11 Sodium Chloride 1,000 ml @ 100 mls/hr Q10H 02/10/25 05:00 03/12/25 04:59 02/10/25 05:56 Dextrose 50 ml AD PRN 02/10/25 05:00 03/12/25 04:59 Glucagon 1 mg AD PRN 02/10/25 05:00 03/12/25 04:59 Magnesium Sulfate 50 ml @ 0 mls/hr PROTOCOL PRN 02/10/25 05:00 03/12/25 04:59 Potassium Chloride 100 ml @ 100 mls/hr AD PRN 02/10/25 05:00 03/12/25 04:59 Potassium Chloride 20 meq AD PRN 02/10/25 05:00 03/12/25 04:59 Potassium Chloride 20 meq AD PRN 02/10/25 05:00 03/12/25 04:59 Aspirin 81 mg DAILY 02/10/25 09:00 03/12/25 08:59 02/10/25 09:11 Insulin Human Regular INSULIN SLIDING SCAL... Q6H6 02/10/25 12:00 03/12/25 04:59 02/10/25 13:09 Review of Systems: CONST: No fever, fatigue, or weight changes. EYES: No recent vision problems. ENT: No congestion, ear pain, or sore throat. C/V: Chest pressure with associated diaphoresis prompting ER visit. Denies palpitations and dyspnea. RESP: No cough, congestion, wheezing or shortness of breath. GI: No abdominal pain, nausea, vomiting, constipation, or diarrhea. : No incontinence or dysuria. SKIN: No rash. NEURO: No headache, focal numbness or weakness, dizziness, or seizures. PSYCH: No depression or anxiety. HEME: No abnormal bruising or bleeding. LYMPH: No swollen glands. Physical Examination: GENERAL: No acute distress. HEAD: Normal with no signs of head trauma. EYES: PERRLA, EOMI, conjunctiva and sclera normal. ENT: Hearing grossly intact, normal oropharynx. NECK: Supple without JVD. There is no tenderness, lymphadenopathy, or masses. No thyromegaly. Normal carotid upstrokes without bruits. LUNGS: Clear breath sounds bilaterally. No wheezes, or rhonchi. HEART: Normal rate and rhythm. Normal S1 and S2 without murmurs, gallop or rub. VASC: Peripheral pulses +2 bilaterally. ABD: Bowel sounds normal, soft, nontender, no masses, no organomegaly. No audible bruits. : Not examined LYMPH: No lymphadenopathy noted. EXT: No clubbing, cyanosis, in 1+ left pedal edema. SKIN: No rashes or lesions noted. NEURO: Awake, alert, and oriented x3. No focal sensory or strength deficits noted. Vital Signs (last 8hr) Date Time Temp Pulse Resp B/P (MAP) Pulse Ox O2 Delivery O2 Flow Rate FiO2 02/10/25 12:02 98.1 61 14 105/63 95 Room Air* 0 21 02/10/25 07:28 97.9 71 14 121/69 98 Room Air* 0 21 02/10/25 05:58 98.1 71 16 111/68 97 Room Air* 0 21 Laboratory: Hematology Labs: Test 02/10/25 00:40 Range/Units White Blood Count 9.9 4.8-10.8 K/uL Red Blood Count 5.65 4.50-6.20 MIL/uL Hemoglobin 16.9 14.0-18.0 g/dL Hematocrit 50.1 42-54 % Mean Corpuscular Volume 88.7 79-99 fL Mean Corpuscular Hemoglobin 29.9 27.0-33.0 pg Mean Corpuscular Hemoglobin Concent 33.7 32.0-36.0 g/dL Red Cell Distribution Width 13.6 11.0-15.5 % Platelet Count 177 130-400 K/uL Mean Platelet Volume 11.2 H 7.5-10.5 fL Immature Granulocyte % (Auto) 0.3 0-1 % Neutrophils (%) (Auto) 46.0 40.0-77.0 % Lymphocytes (%) (Auto) 41.9 21.0-51.0 % Monocytes (%) (Auto) 6.9 3.0-13.0 % Eosinophils (%) (Auto) 4.2 0.0-8.0 % Basophils (%) (Auto) 0.7 0.0-5.0 % Neutrophils # (Auto) 4.6 1.8-7.7 K/uL Lymphocytes # (Auto) 4.2 1.0-4.8 K/uL Monocytes # (Auto) 0.7 0.1-1.0 K/uL Eosinophils # (Auto) 0.42 0.00-0.70 K/uL Basophils # (Auto) 0.07 0.00-0.20 K/uL Absolute Immature Granulocyte (auto 0.03 0-1 K/uL Nucleated Red Blood Cells 0.0 0.0-0.19 % Chemistry Labs: Test 02/10/25 11:51 02/10/25 08:51 02/10/25 01:37 02/10/25 00:43 Range/Units Whole Blood Glucose 239 H 70-110 MG/DL Whole Blood Ketones Quantitative 0.4 0.0-0.6 mmol/L Troponin I High Sensitivity 174 *H 4-75 ng/L Bedside Glucose Comment Notified Nurse Test 02/10/25 00:40 Range/Units Sodium Level 138 136-145 mmol/L Potassium Level 3.8 3.5-5.1 mmol/L Chloride Level 99 L 101-111 mmol/L Carbon Dioxide Level 29 21-32 mmol/L Blood Urea Nitrogen 21 H 7-18 mg/dL Creatinine 1.3 0.5-1.3 mg/dL Glomerular Filtration Rate Calc 57 >90 mL/min Random Glucose 464 *H 70-105 mg/dL Total Calcium 9.0 8.5-10.1 mg/dL Magnesium Level 1.90 1.80-2.40 mg/dL Total Creatine Kinase 106 # 21-232 U/L B-Type Natriuretic Peptide 217 H 0-100 pg/mL Coagulation Labs: Test 02/10/25 08:51 Range/Units Prothrombin Time 10.7 9.6-11.6 SEC Prothromb Time International Ratio 1.01 0.85-1.15 Activated Partial Thromboplast Time 59.9 #H 26.3-35.5 SEC Diagnostics / Radiology: Impression and Plan: Non-STEMI with initial troponin of 21 increasing to 174, with associated inferolateral ischemic EKG changes: CAD status post remote extensive anterior wall ME 03/09/2016 s/p 2.5 x 23 mm Xience Alpine BLAIR to the proximal to mid LAD, 2.5 x 8 mm Xience Alpine BLAIR to the mid LAD, and 2.25 by 15 mm Xience Alpine BLAIR to the distal LAD: Noncompliance with antiplatelet therapy and statin therapy: -proceed with heparin drip as you are doing, Plavix 600 mg load followed by 75 mg daily, and aspirin 325 mg load followed by 81 mg daily -proceed with left heart catheterization. The complications, risks, alternatives, and benefits were discussed with the patient and he understands and wishes to proceed. Further recommendations will follow depending on the results of his cardiac catheterization. Moderate ischemic cardiomyopathy with LVEF of 35-40% by preliminary 2D echo 02/10/2025: Noncompliance with CHRISTIANNE inhibitor therapy in the past: Acute on chronic HFrEF: -furosemide 20 IV now and in a.m., with plans for reassessment (BNP of 217 with CHF changes on chest x-ray 02/10/2025) -begin Jardiance 10 mg daily, Entresto 24/26 mg 0.5 tablet p.o. b.i.d., and spironolactone 25 mg p.o. 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
[2025-02-10 13:19] LABS: INR 1.04 (0.85-1.15)
[2025-02-10] MEDS: EMPAGLIFLOZIN 10MG TABLET PO SCH (14:30)
[2025-02-10] MEDS: SPIRONOLACTONE 25 MG TAB PO SCH (14:30)
[2025-02-10] MEDS: ASPIRIN 325MG TAB PO SCH (14:32)
[2025-02-10] MEDS ORDERED: IOHEXOL-350 50ML VIAL IV ONE (15:22)
[2025-02-10] MEDS ORDERED: LIDOCAINE HCL 400MG/20ML VIAL ONE (15:22)
[2025-02-10] MEDS ORDERED: IOHEXOL 350 MG/ML 100ML INFUS..BTL IV ONE (15:22)
[2025-02-10] MEDS ORDERED: NITROGLYCERIN 50MG VIAL ONE (15:23)
[2025-02-10] MEDS ORDERED: HEParin-NS 1,000 UNIT/500 ML 1,000 ML IV ONE (15:23)
[2025-02-10] MEDS ORDERED: HEParin-NS 1,000 UNIT/500 ML 500 ML IV ONE (15:35)
[2025-02-10] MEDS ORDERED: MIDAZOLAM HCL 1 MG/ML 2ML VIAL ONE (15:40)
[2025-02-10] MEDS ORDERED: BIVALIRUDIN 250 MG/VIAL IV ONE (16:15)
--- NOTE | 2025-02-10 17:48 | PRN ---
DATE OF PROCEDURE: 02/10/2025 PROCEDURE PERFORMED: LEFT HEART CATHETERIZATION, LV-GRAM, LEFT AND RIGHT SELECTIVE CORONARY ANGIOGRAM, INJECTION OF RIGHT SUBCLAVIAN (ARTERIA LUSORIA), INJECTION OF RIGHT COMMON CAROTID, INJECTION OF LEFT SUBCLAVIAN, RIGHT COMMON FEMORAL ANGIOGRAM, MYNX CLOSURE OF RIGHT COMMON FEMORAL ARTERY, AND CONSCIOUS SEDATION PROCESSING OPERATOR: Benjamin Cannon MD, [facility] INDICATION: Small non STEMI, acute on chronic HFrEF, inferolateral ischemic EKG changes PROCEDURE NOTE: After informed consent was obtained the patient was prepped and draped in the usual sterile fashion. A 6 [place] arterial sheath was inserted in the right femoral artery using a micropuncture technique with a front wall, first pass puncture, with ultrasoud guidance. This was performed after fluoroscopic identification of bony landmarks to facilitate a more accurate puncture of the right common femoral artery. The arterial sheath was aspirated and flushed. A 6 [place] pigtail catheter was then advanced over a J-tipped guidewire to the ascending aorta and was prolapsed into the left ventricle. The catheter was aspirated and flushed and pressure measurements were obtained. A left ventriculogram was then performed in a 30 KOO projection. A pullback procedure was then performed, and this catheter was removed over a J-tipped guidewire. A 6F JL-4 was then advanced to the ascending aorta over a J-tipped guidewire, was aspirated and flushed, and was used for selective left coronary angiograms in multiple obliquities. A JR-4 was advanced in a similar fashion to the ascending aorta over a J-tipped guidewire and was used for selective right coronary angiograms in multiple obliquities with findings as outlined below. To assess suitability for use as a bypass conduit the JR4 was then used for selective injection of the left subclavian artery. 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 Mynx closure was successful without bleeding or hematoma. The patient tolerated the procedure well and was returned to the holding area in stable condition. FINDINGS: LEFT HEART HEMODYNAMICS: The patient's LVEDP was 22 mm of mercury prior to the LV-gram and unchanged at 22 mm of mercury after. There was no aortic valve gradient on pullback procedure. LEFT VENTRICULOGRAM: A left ventriculogram in a 30 degree KOO projection demonstrated only basal segments benjy with akinesis of the anteroapical wall, dyskinesis of the apex, and akinesis of the inferoapical wall. The LVEF estimate was 20%. There was no angiographic MR. CORONARY ANGIOGRAM: LEFT MAIN: The left main was normal. LEFT ANTERIOR DESCENDING: The LAD was chronically occluded just after a 1st diagonal branch with the o ngoing LAD noted to fill by [id number] collaterals. There was patency of the mid and distal LAD identified. The 1st diagonal had a 60% ostial stenosis and provided a collateral to the diagonal two. LEFT CIRCUMFLEX: The left circumflex had a 90% proximal stenosis and a 60% stenosis on the superior branch of the OM1 with a 70% stenosis on the inferior branch of the OM1. The distal left circumflex terminated in the AV groove as a small trifurcating terminal OM2. RAMUS INTERMEDIATE BRANCH: There was no ramus intermediate branch. RIGHT CORONARY ARTERY: The right coronary was dominant and had a 50% ostial stenosis, 75% proximal stenosis, 60 and 60% tandem mid RCA stenosis, and a 95% hazy-appearing distal RCA stenosis (culprit). The PDA had a 90% ostial stenosis. There were moderate sized PDA, PLVB1, and PLVB2 branches. IMPRESSION: Severe ischemic cardiomyopathy with LVEF of 20% and only basal segments con tracting. There may be significant viable myocardium in the circumflex and distal RCA distribution. Non STEMI (tiny) likely due to 95% distal RCA stenosis which provides collateral filling of a chronically occluded mid LAD. There was visible patency of the mid to distal LAD via collaterals from the RCA. Severe three-vessel CAD with occluded mid LAD, 90% proximal left circumflex, 95% distal RCA, and 90% ostial PDA. No aortic stenosis. No mitral regurgitation. 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 Suitable BISHOP for use as a bypass conduit. RECOMMENDATION: Consider coronary artery bypass grafting with either intra-aortic balloon pump or Impella support COMPLICATIONS OF PROCEDURE: None, the patient tolerated the procedure well and was returned to his room in stable condition. HEMOSTASIS: Mynx closure device successful without bleeding or hematoma. ESTIMATED BLOOD LOSS: Less than 10 mL. CONTRAST TOTAL: 155 mL. BENJAMIN CANNON MD Feb 10, 2025 17:48
--- NOTE | 2025-02-10 18:12 | HMCSR ---
APPROVED REPORT EXAM: Two-dimensional and M-mode echocardiogram with Doppler and color Doppler. INDICATION ICD: Non ST-elevation SC I21.4 2D Dimensions RVDd 3.4 cm LVEF(%) 35.5 (>50%) LA ESV INDEX (BP) 30.44 mL/m2 IVSd 1.1 (0.7-1.1cm) FS(%) 17 % LVDd 6.0 (3.8-5.6cm) LA (2D) 4.0 (1.6-4.0cm) PWd 0.9 (0.7-1.1cm) Ao Root(2D) 3.9 (2.0-3.7cm) IVSs 1.3 cm LVOT diam 2.3 (1.8-2.4cm) LVDs 5.0 (2.5-4.0cm) PWs 1.3 cm Deformation Strain Apical 4 -8.5 % Apical 2 -9.7 % Apical 3 -8.2 % Global Strain -8.8 % M-Mode Dimensions EPSS 1.9 cm LA (MM) 4.5 (1.6-4.0cm) Ao Root(MM) 4.2 (2.0-3.7cm) Aortic Valve AoV Vmax 0.9 m/s Ao Peak GR 3.5 mmHg LVOT Vmax 0.8 m/s AoV VTI 0.2 m Ao Mean GR 2.2 mmHg LVOT VTI 0.16 m MAHIN (VMAX) 3.74 cm2 Al P1/2T 735 ms MAHIN (VTI) 3.9 cm2 Mitral Valve MV E Vmax 94.1 cm/s DECEL Time 136 ms MV A Vmax 58.4 cm/s P 1/2 T 31 ms E/A ratio 1.6 MVA (PHT) 7.1 cm2 TDI E/E' Medial 23.6 E/E' Lateral 27.9 Medial E' Peak V 3.98 cm/s Lateral E' Peak V 3.37 cm/s Pulmonary Valve PV Vmax 0.8 m/s PI End Beatrice. Jose 184.0 cm/s PV Mean GR 1.5 mmHg PV Peak GR 2.7 mmHg Tricuspid Valve TR Vmax 1.6 m/s RAP (EST) 3 mmHg RVSP 13.7 mmHg TR Peak GR 10.7 mmHg Left Ventricle The left ventricle is normal size. Reduced GLS -9.0% Distal inferoseptal thinning and akinesis. Apical, apical lateral, and anteroapical thinning and akinesis. There is normal left ventricular wall thickness. LVEF is 25%. Stage III diastolic dysfunction. Right Ventricle The right ventricle is normal size. Right ventricular systolic function is borderline reduced. Atria The left atrium size is normal. The right atrium size is normal. Aortic Valve The aortic valve is trileaflet normal in structure. Trace of aortic regurgitation is present. There is no aortic valvular stenosis. Mitral Valve The mitral valve is normal in structure. There is trace mitral valve regurgitation noted. Posterior mitral annular calcification. There is no mitral valve stenosis. Tricuspid Valve The tricuspid valve is normal in structure. There is trace of tricuspid valve regurgitation noted. Pulmonic Valve The pulmonary valve is normal in structure. There is trace pulmonic valvular regurgitation. Great Vessels The aortic root is normal in size. The IVC is normal in size and collapses >50% with inspiration. Pericardium There is no pericardial effusion. Other Information Quality : Fair Conclusion The left ventricle is normal size. There is normal left ventricular wall thickness. Reduced GLS -9.0% Distal inferoseptal thinning and akinesis. Apical, apical lateral, and anteroapical thinning and akinesis. LVEF is 25%. Stage III diastolic dysfunction. There is trace mitral valve regurgitation noted. Posterior mitral annular calcification. There is trace of tricuspid valve regurgitation noted. There is no pericardial effusion.
[2025-02-10] MEDS: SACUBITRIL/VALSARTAN 1 EACH TABLET PO SCH (21:10)
[2025-02-11] VITALS (9 sets, daily range): BP systolic 97–120; BP diastolic 49–75; PULSE 63–74; RESP 18; TEMP 97.9–98.5; O2SAT 98
[2025-02-11 03:57] LABS: IMMATURE GRANULOCYTE ABSOLUTE 0.02 K/uL (0-1); NUCLEATED RED BLOOD CELLS 0.0 % (0.0-0.19); PLATELET COUNT (AUTO) 164 K/uL (130-400); RED BLOOD CELL COUNT(AUTO) 5.05 MIL/uL (4.50-6.20); RED CELL DISTRIBUTION WIDTH 13.9 % (11.0-15.5); WHITE BLOOD COUNT (AUTO) 8.6 K/uL (4.8-10.8)
[2025-02-11 04:16] LABS: ERYTHROCYTE SEDIMENTATION RATE 9 MM/HR (0-20)
[2025-02-11 04:32] LABS: ASPARTATE AMINOTRANSFERASE 73.0 U/L (10-37); CREATINE KINASE, TOTAL 287.0 U/L (21-232); CREATININE 0.8 mg/dL (0.5-1.3); GLOMERULAR FILTR. RATE CALC 92.0 mL/min (>90); GLUCOSE,RANDOM 199.0 mg/dL (70-105); LDL DIRECT 82.0 mg/dL (0-99); SODIUM SERUM 138.0 mmol/L (136-145); TOTAL PROTEIN, SERUM 5.9 g/dL (6.0-8.3); UREA NITROGEN, BLOOD 14.0 mg/dL (7-18)
--- NOTE | 2025-02-11 06:36 | CONS ---
CONSULT NOTE: Endocrinology Consult Chief complaint: chest pain Reason for consult: uncontrolled dm-2 DOS: 02/11/25 HISTORY OF PRESENT ILLNESS: This is a 74-year-old male,a Denominational by adventist whith past medical history of diabetes, hyperlipidemia and IA/coronary artery disease with cardiac stent who presented to the Ed for complaints of midsternal chest pain cardiac cath show triple vessel heart disease and CTS consulted. patient in the ER awake,alert and coherent,appears comfortable.Patient denies fever,chills,cough,nausea,vomiting,palpitation and shortness of breath. Latest vital signs temperature 98.2, heart rate 75, blood pressure 124/70 saturation 97% on room air. Labs: CBC unremarkable. Chloride 99, BUN 21, random glucose 469 to 439 to 327. Troponin from 21-174. ECG result revealed revealed sinus rhythm heart rate 85 with atrial premature complex anterolateral infarct age indeterminate. Second EKG result revealed sinus rhythm heart rate 73 with left anterior fascicular block. Probable anterolateral infarct age indeterminate. Abnormal T consider ischemia lateral leads.. Chest x-ray result revealed no acute cardiopulmonary process is evident. While in the ER patient received 1500 mL NS bolus, insulin 5 units IV, aspirin 325 mg p.o. and patient was started on heparin drip per ACS protocol. Home diabetic regimen: metformin 500 mg bid, Hba1c 13.9% REVIEW OF SYSTEMS CONSTITUTIONAL: Denies fevers, chills, or night sweats. No unintentional weight loss reported. NEUROLOGICAL: Denies headache, amaurosis fugax, motor weakness, sensory deficit, vertigo/spinning sensation, gait abnormalities, or tremors. ENT: No hearing loss, otalgia, otorrhea, rhinitis, rhinorrhea, hoarseness, or sore throat. CARDIOVASCULAR: Deniesdyspnea on exertion, orthopnea, paroxysmal nocturnal dyspnea, palpitations, life-threatening arrhythmias, claudication. PULMONARY: Denies any shortness of breath, cough, phlegm/sputum, hemoptysis, pleuritic chest pain. SLEEP: Denies morning headaches, daytime somnolence or napping. Denies difficulty falling asleep, staying asleep, waking from sleep. Denies knowledge of snoring. GASTROINTESTINAL: Denies any type of dysphagia to either liquids or solids. Denies nausea, vomiting, pyrosis, early satiety, abdominal pain, diarrhea, constipation, or changes in stool consistency or caliber. Denies coffee-ground emesis, hematemesis, hematochezia, or melanotic stools. GENITOURINARY: Denies frequency, urgency, nocturia, hematuria or incontinence (Storage/Irritative symptoms.) Low urinary stream, straining to void, urinary intermittency or hesitancy, splitting of the voiding stream, terminal dribbling. ENDOCRINOLOGIC: Denies polyuria, polydipsia, polyphagia or heat/cold intolerances. HEMATOLOGIC: Denies thrombophilia/previous clots, or coagulopathy/bleeding disorders. ONCOLOGIC: Denies personal history of malignancy. DERMATOLOGIC: Denies rashes or pruritus. PSYCHIATRIC: Denies any suicidal or homicidal ideation. Denies hallucinations. PAST MEDICAL HISTORY: [ Diabetes, hyperlipidemia, IA/coronary artery disease ] PAST SURGICAL HISTORY: [ Cardiac stent, cholecystectomy and left inguinal hernia repair ] PAST SOCIAL HISTORY: [ Patient lives with . Patient admits he drinks two beer yesterday. Patient reports he occasional drinks alcohol denies cigarette and recreational drug use. ] FAMILY HISTORY: [ Diabetes, cardiovascular disease, asthma and cancer ] Coded Allergies: No Known Drug Allergies (Unverified Allergy, Unknown, 08/31/15) PHYSICAL EXAM GENERAL APPEARANCE: The patient is awake, alert, and oriented, in no acute cardiopulmonary distress. NEUROLOGICAL: Cranial nerves II-XII grossly intact. Motor is 5/5 in bilateral upper and lower extremities proximal to distal. No sensory deficits. HEENT: Face is symmetric. Pupils are equal and reactive. Extraocular movements are intact. NECK: Supple. No JVD. No thyromegaly. No submental, submandibular, pre- /postauricular, occipital or supraclavicular lymphadenopathy. CHEST: Normal chest expansion. No Telemetry. LUNGS: Absence of any rales, rhonchi or any wheezing. CARDIOVASCULAR: Regular. S1 and S2 normal. No appreciable rubs, murmurs or gallops. ABDOMEN: Soft, nontender, and nondistended. There is no rebound, voluntary guarding, or rigidity. : Deferred. No De Jesus. EXTREMITIES: Non-edematous and not cyanotic. No clubbing. Good capillary refill. SKIN: No skin breakdown. ASSESSMENT: Hyperglycemia secondary to uncontrolled diabetes POA Home diabetic regimen: metformin 500 mg bid, Hba1c 13.9% glucose is uncontrolled at home and glucose is high, so insulin adjusted. Chest pain rule out ACS: NSTEMI POA triple vessel disease Hyperlipidemia POA Obesity POA IA/Coronary artery disease with cardiac stent POA PLAN: start Lantus 15 units daily and adjust for fasting glucose. start Regular insulin 3 units three times before meals and adjust for post- prandial glucose. Continue medium dose sliding scale insulin. Monitor glucose q x 6 hourly. Continue carb consistent diet. Keep glucose less than 180 mg/dl. Patient will need insulin at discharge. Thanks for allowing me to participate in patient care and will continue to follow up. Vital Signs 02/10/25 02/11/25 22:33 04:00 Temp 98.1 Pulse 63 Resp 18 B/P (MAP) 97/49 Pulse Ox 96 O2 Delivery Room Air O2 Flow Rate 0 FiO2 21 Hematology Labs: Test 02/11/25 03:13 Range/Units White Blood Count 8.6 4.8-10.8 K/uL Red Blood Count 5.05 4.50-6.20 MIL/uL Hemoglobin 15.0 14.0-18.0 g/dL Hematocrit 44.2 42-54 % Mean Corpuscular Volume 87.5 79-99 fL Mean Corpuscular Hemoglobin 29.7 27.0-33.0 pg Mean Corpuscular Hemoglobin Concent 33.9 32.0-36.0 g/dL Red Cell Distribution Width 13.9 11.0-15.5 % Platelet Count 164 130-400 K/uL Mean Platelet Volume 11.3 H 7.5-10.5 fL Immature Granulocyte % (Auto) 0.2 0-1 % Neutrophils (%) (Auto) 63.6 40.0-77.0 % Lymphocytes (%) (Auto) 23.0 21.0-51.0 % Monocytes (%) (Auto) 7.9 3.0-13.0 % Eosinophils (%) (Auto) 4.5 0.0-8.0 % Basophils (%) (Auto) 0.8 0.0-5.0 % Neutrophils # (Auto) 5.5 1.8-7.7 K/uL Lymphocytes # (Auto) 2.0 1.0-4.8 K/uL Monocytes # (Auto) 0.7 0.1-1.0 K/uL Eosinophils # (Auto) 0.39 0.00-0.70 K/uL Basophils # (Auto) 0.07 0.00-0.20 K/uL Absolute Immature Granulocyte (auto 0.02 0-1 K/uL Nucleated Red Blood Cells 0.0 0.0-0.19 % Erythrocyte Sedimentation Rate 9 0-20 MM/HR Chemistry Labs: Test 02/11/25 04:41 02/11/25 03:13 02/10/25 19:07 02/10/25 08:51 Range/Units Whole Blood Glucose 181 H 70-110 MG/DL Sodium Level 138 136-145 mmol/L Potassium Level 3.3 L 3.5-5.1 mmol/L Chloride Level 103 101-111 mmol/L Carbon Dioxide Level 26 21-32 mmol/L Blood Urea Nitrogen 14 7-18 mg/dL Creatinine 0.8 0.5-1.3 mg/dL Glomerular Filtration Rate Calc 92 >90 mL/min Random Glucose 199 H 70-105 mg/dL Hemoglobin A1c 13.9 H 4.0-6.0 % Estimated Average Glucose (eAG) 352 H 70-126 mg/dL Total Calcium 8.3 L 8.5-10.1 mg/dL Magnesium Level 1.60 L 1.80-2.40 mg/dL Total Bilirubin 1.6 H 0.2-1.0 mg/dL Aspartate Amino Transf (AST/SGOT) 73 H 10-37 U/L Alanine Aminotransferase (ALT/SGPT) 35 12-78 U/L Alkaline Phosphatase 60 50-136 U/L Total Creatine Kinase 287 #H 21-232 U/L Troponin I High Sensitivity 76714 *H 4-75 ng/L Total Protein 5.9 L 6.0-8.3 g/dL Albumin 3.1 L 3.5-5.0 g/dL Triglycerides Level 75 30-200 mg/dL Cholesterol Level 139 <200 mg/dL LDL Cholesterol 82 0-99 mg/dL HDL Cholesterol 49 29-71 mg/dL Thyroid Stimulating Hormone (TSH) 2.64 0.36-3.74 uIU/mL B-Type Natriuretic Peptide 488 H 0-100 pg/mL Whole Blood Ketones Quantitative 0.4 0.0-0.6 mmol/L Test 02/10/25 00:43 Range/Units Bedside Glucose Comment Notified Nurse Coagulation Labs: Test 02/11/25 05:23 02/10/25 12:56 Range/Units Activated Partial Thromboplast Time 27.1 26.3-35.5 SEC Prothrombin Time 11.0 9.6-11.6 SEC Prothromb Time International Ratio 1.04 0.85-1.15 Current Medications Medications (Trade) Dose Ordered Sig/Carol Route Start Time Stop Time Status Last Admin Dose Admin Aspirin (Aspirin 325mg Tab) 325 mg ONCE PO 02/10/25 14:30 02/10/25 17:22 DC 02/10/25 14:32 325 MG Aspirin (Aspirin 81mg Ec Tab) 81 mg DAILY PO 02/10/25 09:00 03/12/25 08:59 02/10/25 09:11 81 MG Clopidogrel Bisulfate (plaVIX 300MG TAB) 600 mg ONCE PO 02/10/25 14:00 02/10/25 17:22 DC 02/10/25 14:19 600 MG Clopidogrel Bisulfate (plaVIX 75MG) 75 mg DAILY PO 02/11/25 09:00 03/13/25 08:59 Empaglifozin (Jardiance 10mg) 10 mg DAILY PO 02/10/25 14:30 03/12/25 14:29 Famotidine (Pepcid 20mg Tab) 20 mg DAILY PO 02/10/25 09:00 03/12/25 08:59 02/10/25 09:11 20 MG Furosemide (LASix 20MG VIAL) 20 mg ONCE IV 02/10/25 17:00 02/10/25 21:00 DC 02/10/25 17:00 20 MG Furosemide (LASix 20MG VIAL) 20 mg ONCE IV 02/11/25 09:00 02/11/25 13:00 Heparin Sodium/ Dextrose 250 ml @ 0 mls/hr PROTOCOL IV 02/10/25 03:00 02/10/25 17:22 DC 02/10/25 03:00 16.2 MLS/HR Heparin Sodium/ Dextrose 250 ml @ 0 mls/hr Q6H IV 02/11/25 06:30 03/13/25 06:29 02/11/25 05:53 0 MLS/HR Insulin Human Regular (humuLIN R 100 UNIT/ML 3ML) INSULIN SLIDING SCAL... Q4H SQ 02/10/25 05:00 02/10/25 11:10 DC 02/10/25 09:15 6 UNIT Insulin Human Regular (humuLIN R 100 UNIT/ML 3ML) INSULIN SLIDING SCAL... Q6H6 SQ 02/10/25 12:00 03/12/25 04:59 02/11/25 05:09 2 UNIT Sacubitril/ Valsartan (Entresto 24 Mg-26 Mg Tablet) 0.5 each BID PO 02/10/25 21:00 03/12/25 20:59 02/10/25 21:10 0.5 EACH Sodium Chloride 1,000 ml @ 100 mls/hr Q10H IV 02/10/25 05:00 02/10/25 17:22 DC 02/10/25 14:20 100 MLS/HR Spironolactone (Aldactone 25mg) 25 mg DAILY PO 02/10/25 14:30 03/12/25 14:29 EUGENE ZARATE MD Feb 11, 2025 06:36
--- NOTE | 2025-02-11 07:25 | PN ---
[facility] Cardiology Progress Note CARDIOLOGY PROGRESS NOTE FEBRUARY 11, 2025 Problems: 1. Non ST-elevation myocardial infarction 2. Remote myocardial infarction status post stenting of the mid LAD and distal L AD February 2016 3. Multivessel CAD with ejection fraction of 20% per for Yazidi 5. Diabetes mellitus type 2 6. Dyslipidemia 7. Hypertension 8. 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 Buddhist 10. History of beta estela intolerance due to erectile dysfunction This patient was admitted with a non ST-elevation [place] and underwent left heart catheterization yesterday. He was found to have multivessel CAD with total occlusion of the LAD which fills via collaterals. Ejection fraction of 20%. This morning blood pressure is running 100 systolic heart rate is in the 60s the patient is afebrile. White count 8.6 hemoglobin 15 platelet count [id number]. Potassium 3.3 BUN 14 creatinine 0.8. [place] [address]. LDL olga lidia sterol of 82. The patient continues on aspirin clopidogrel empagliflozin famotidine heparin protocol insulin scale potassium protocol Entresto and spironolactone. Surgical consult has been requested. The patient has been pain-free overnight. Cath site shows no hematoma. Clopidogrel until a decision is made regarding surgery. MAGGIE PIKE MD Feb 11, 2025 07:25
--- NOTE | 2025-02-11 07:30 | NUR ---
DR. FRIED HERE AND SPOKE WITH PT CONCERNING SURGERY TO BYPASS HIS HEART OCCLUSIONS AND THE NEED TO USE THE IMPELLA 5 DURING AND AFTER SURGERY. PT WAS ADVISED OF THE RISKS INVOLVED WITH THE SURGERY AND WAS ALLOWED TO ASK QUESTIONS AND HAVE ALSO BEEN ADVISED THAT DR PACHECO WOULD BE THE SURGEON THAT WOULD PROBABLY BE DOING THE SURGERY AND PT AND HIS ASKED IF THEY WANTED FOR DR RICHARD TO DO IT HOW COULD THAT HAPPEN. DR. FRIED TOLD THEM THEY WOULD HAVE TO GO TO [place] TO HAVE THE SURGERY DONE. THEY WOULD LIKE TO CONSIDER THAT OPTION, DR FRIED TOLD THEM TO THINK ABOUT IT AND THAT HE WOULD BE BACK TOMORROW TO SEE THE PATIENT.
--- NOTE | 2025-02-11 11:49 | EKG ---
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 : [id number] Requested By: ORLANDO PRAJAPATI Order Number: [id number] Reading MD: Benjamin Don Measurements Intervals [place] Rate: 63 P: 33 DC: 159 QRS: -51 QRSD: 88 T: 0 QT: 383 QTc: 392 Interpretive Statements Sinus rhythm Inferior-lateral ischemia suspected Probable old anterior infarct, age indeterminate Compared to ECG 02/10/2025 02:31:00 Left anterior fascicular block no longer present Possible ischemia no longer present Myocardial infarct finding still present Electronically Signed On 02-11-2025 18:59:11 [employer]GER [employer]ARM by Benjamin Don Please click the below link to view image of tracing.
[2025-02-11 12:10] LABS: INR 1.09 (0.85-1.15)
--- NOTE | 2025-02-11 12:22 | CONS ---
SUBJECTIVE: The patient is a 74-year-old male with diabetes mellitus, hyperlipidemia, and known coronary artery disease, having undergone replacement of 3 stents in his left anterior descending artery in [address] elevation [place]. The patient has not always been compliant with his medications or his followup. The patient presented on this hospitalization with chest pain and diaphoresis and had an elevation in his troponins. His ischemic changes on his EKG were in the inferior leads and he was taken to the pharmacy laboratory technician where he was found to have multivessel coronary artery disease. The culprit lesion was felt to be his distal right coronary artery. His proximal LAD was occluded with retrograde filling of the LAD via the right system. He also had a 90% proximal left circumflex stenosis. On echocardiogram, the patient's ejection fraction was severely depressed and subjectively looked approximately 15% to 20%. Cardiovascular Surgery was consulted for possible coronary artery bypass grafting. OBJECTIVE: GENERAL: On exam, the patient is a pleasant elderly male, in no apparent distress. HEENT: Normocephalic, atraumatic. Extraocular movements intact. CHEST: He is breathing comfortably, off of oxygen. HEART: S1 and S2, and regular. LUNGS: Unlabored at rest on room air while sitting in bed in the upright position. His lungs are clear to auscultation. ABDOMEN: Reveals mild to moderate obesity. EXTREMITIES: Perfusion of his lower extremities appears adequate. LABORATORY DATA: His BUN is 14, creatinine 0.8. His CBC results are uneventful. His troponin started at 21 roughly 2 days ago and has bumped up to 14,000 today. His chest x-ray today appears clear. He had some mild interstitial edema on his initial chest x-ray on admission. ASSESSMENT AND PLAN: Multivessel coronary artery disease. I believe the patient would have a survival benefit and a better chance at symptom relief with coronary artery bypass grafting, which would be high risk given his age and low ejection fraction. I would perform the surgery with Impella left ventricular assist support. This was presented to the family. They are going to think about it. I will [place] back tomorrow and see what the decision is. TID: [id number] RECEIPT: [id number]
--- NOTE | 2025-02-11 14:22 | PN ---
[facility] PROGRESS NOTE Date of Service: Feb 11, 2025 Time of Service: 14:21 HISTORY OF PRESENT ILLNESS: This is a 74-year-old male,a Shinto by faith whith past medical history of diabetes, hyperlipidemia and HI/coronary artery disease with cardiac stent who presented to the Ed for complaints of midsternal chest pain that is non radiating associated with diaphoresis and this happened when patient was laying down in bed aroun 11:50 pm last night and decided to come to the ED for evaluation.Patient reports pain was persistent.As per patient he had a history of heart attack before and underwent a stent placement.Patient reports the only medication he is taking is Metformin.Patient states he is supposed to be on Aspirin but has stopped taking it.Patient reports he occasionally drinks beer and last drink was yesterday ,had 2 beers he said. Seen and examined patient in the ER awake,alert and coherent,appears comfortable.Patient denies fever,chills,cough,nausea,vomiting,palpitation and shortness of breath. Latest vital signs temperature 98.2, heart rate 75, blood pressure 124/70 saturation 97% on room air. Labs: CBC unremarkable. Chloride 99, BUN 21, random glucose 469 to 439 to 327. Troponin from -. ECG result revealed revealed sinus rhythm heart rate 85 with atrial premature complex anterolateral infarct age indeterminate. Second EKG result revealed sinus rhythm heart rate 73 with left anterior fascicular block. Probable anterolateral infarct age indeterminate. Abnormal T consider ischemia lateral leads.. Chest x-ray result revealed no acute cardiopulmonary process is evident. While in the ER patient received 1500 mL NS bolus, insulin 5 units IV, aspirin 325 mg p.o. and patient was started on heparin drip per ACS protocol. SUBJECTIVE: 02/10/25: Patient was seen and evaluated in ED9. Patient was alert, awake and orientedX3. Patient reports that he doesn't have any chest pain today. Patient reports occasional shortness of breath during nights. Patient denies any shortness of breath, nausea, vomiting, palpitations and lightheadedness. Patient denies any abdominal pain, burning urination. Patient mentions that he only takes metformin 3-4 times per week and has stopped taking aspirin because it wasn't reconciled. Troponin from -. 2D ECHO was done, pending results. Patient is currently on Heparin drip 02/11/25: Patient was evaluated at the bedside this morning. No overnight event. He is AAO x3. patient reported that he does not have chest pain or shortness of breath. He is hemodynamically stable. The labs remarkable for potassium 3.3, magnesium 1.6, HbA1c 13.9, troponin 12781. Left heart catheterization revealed severe triple-vessel disease. Echocardiogram revealed 25% ejection fraction with segmental akinesis. CT surgery was consulted who recommended CABG with Impella left ventricle assist. Family to decide about the procedure. He is currently on heparin drip, aspirin. Endocrinology on board. Rest of the plan as discussed below. REVIEW OF SYSTEMS CONSTITUTIONAL: Denies fevers, chills, or night sweats. No unintentional weight loss reported. NEUROLOGICAL: Denies headache, amaurosis fugax, motor weakness, sensory deficit, vertigo/spinning sensation, gait abnormalities, or tremors. ENT: No hearing loss, otalgia, otorrhea, rhinitis, rhinorrhea, hoarseness, or sore throat. CARDIOVASCULAR: Denies chest pain, dyspnea on exertion, orthopnea, paroxysmal nocturnal dyspnea, palpitations, life-threatening arrhythmias, claudication. PULMONARY: Denies any shortness of breath, cough, phlegm/sputum, hemoptysis, pleuritic chest pain. SLEEP: Denies morning headaches, daytime somnolence or napping. Denies difficulty falling asleep, staying asleep, waking from sleep. Denies knowledge of snoring. GASTROINTESTINAL: Denies any type of dysphagia to either liquids or solids. Denies nausea, vomiting, pyrosis, early satiety, abdominal pain, diarrhea, constipation, or changes in stool consistency or caliber. Denies coffee-ground emesis, hematemesis, hematochezia, or melanotic stools. GENITOURINARY: Denies frequency, urgency, nocturia, hematuria or incontinence (Storage/Irritative symptoms.) Low urinary stream, straining to void, urinary intermittency or hesitancy, splitting of the voiding stream, terminal dribbling. ENDOCRINOLOGIC: Denies polyuria, polydipsia, polyphagia or heat/cold intolerances. HEMATOLOGIC: Denies thrombophilia/previous clots, or coagulopathy/bleeding disorders. ONCOLOGIC: Denies personal history of malignancy. DERMATOLOGIC: Denies rashes or pruritus. PSYCHIATRIC: Denies any suicidal or homicidal ideation. Denies hallucinations. PHYSICAL EXAM GENERAL APPEARANCE: The patient is awake, alert, and oriented, in no acute cardiopulmonary distress. NEUROLOGICAL: Cranial nerves II-XII grossly intact. Motor is 5/5 in bilateral upper and lower extremities proximal to distal. No sensory deficits. HEENT: Face is symmetric. Pupils are equal and reactive. Extraocular movements are intact. NECK: Supple. No JVD. No thyromegaly. No submental, submandibular, pre- /postauricular, occipital or supraclavicular lymphadenopathy. CHEST: Normal chest expansion. No Telemetry. LUNGS: Absence of any rales, rhonchi or any wheezing. CARDIOVASCULAR: Regular. S1 and S2 normal. No appreciable rubs, murmurs or gallops. ABDOMEN: Soft, nontender, and nondistended. There is no rebound, voluntary guarding, or rigidity. : Deferred. No De Jesus. EXTREMITIES: Non-edematous and not cyanotic. No clubbing. Good capillary refill. SKIN: No skin breakdown. Vital Signs (last 8hr) Date Time Temp Pulse Resp B/P (MAP) Pulse Ox O2 Delivery O2 Flow Rate FiO2 02/11/25 11:54 97.9 68 18 107/62 96 Room Air 02/11/25 07:44 98.2 64 18 105/63 95 Room Air 02/11/25 07:15 98 Room Air* 0 21 LABS: Laboratory: Test 02/11/25 11:54 02/11/25 11:49 02/11/25 03:13 02/10/25 19:07 Range/Units Whole Blood Glucose 290 #H 70-110 MG/DL Prothrombin Time 11.5 9.6-11.6 SEC Prothromb Time International Ratio 1.09 0.85-1.15 Activated Partial Thromboplast Time > 139.0 #*H 26.3-35.5 SEC Troponin I High Sensitivity 8340 *H 4-75 ng/L White Blood Count 8.6 4.8-10.8 K/uL Red Blood Count 5.05 4.50-6.20 MIL/uL Hemoglobin 15.0 14.0-18.0 g/dL Hematocrit 44.2 42-54 % Mean Corpuscular Volume 87.5 79-99 fL Mean Corpuscular Hemoglobin 29.7 27.0-33.0 pg Mean Corpuscular Hemoglobin Concent 33.9 32.0-36.0 g/dL Red Cell Distribution Width 13.9 11.0-15.5 % Platelet Count 164 130-400 K/uL Mean Platelet Volume 11.3 H 7.5-10.5 fL Immature Granulocyte % (Auto) 0.2 0-1 % Neutrophils (%) (Auto) 63.6 40.0-77.0 % Lymphocytes (%) (Auto) 23.0 21.0-51.0 % Monocytes (%) (Auto) 7.9 3.0-13.0 % Eosinophils (%) (Auto) 4.5 0.0-8.0 % Basophils (%) (Auto) 0.8 0.0-5.0 % Neutrophils # (Auto) 5.5 1.8-7.7 K/uL Lymphocytes # (Auto) 2.0 1.0-4.8 K/uL Monocytes # (Auto) 0.7 0.1-1.0 K/uL Eosinophils # (Auto) 0.39 0.00-0.70 K/uL Basophils # (Auto) 0.07 0.00-0.20 K/uL Absolute Immature Granulocyte (auto 0.02 0-1 K/uL Nucleated Red Blood Cells 0.0 0.0-0.19 % Erythrocyte Sedimentation Rate 9 0-20 MM/HR Sodium Level 138 136-145 mmol/L Potassium Level 3.3 L 3.5-5.1 mmol/L Chloride Level 103 101-111 mmol/L Carbon Dioxide Level 26 21-32 mmol/L Blood Urea Nitrogen 14 7-18 mg/dL Creatinine 0.8 0.5-1.3 mg/dL Glomerular Filtration Rate Calc 92 >90 mL/min Random Glucose 199 H 70-105 mg/dL Hemoglobin A1c 13.9 H 4.0-6.0 % Estimated Average Glucose (eAG) 352 H 70-126 mg/dL Total Calcium 8.3 L 8.5-10.1 mg/dL Magnesium Level 1.60 L 1.80-2.40 mg/dL Total Bilirubin 1.6 H 0.2-1.0 mg/dL Aspartate Amino Transf (AST/SGOT) 73 H 10-37 U/L Alanine Aminotransferase (ALT/SGPT) 35 12-78 U/L Alkaline Phosphatase 60 50-136 U/L Total Creatine Kinase 287 #H 21-232 U/L Total Protein 5.9 L 6.0-8.3 g/dL Albumin 3.1 L 3.5-5.0 g/dL Triglycerides Level 75 30-200 mg/dL Cholesterol Level 139 <200 mg/dL LDL Cholesterol 82 0-99 mg/dL HDL Cholesterol 49 29-71 mg/dL Thyroid Stimulating Hormone (TSH) 2.64 0.36-3.74 uIU/mL B-Type Natriuretic Peptide 488 H 0-100 pg/mL Test 02/10/25 09:10 02/10/25 08:51 02/10/25 00:43 Range/Units Urine Color LIGHT-YELLOW YELLOW Urine Appearance CLEAR CLEAR Urine pH 5.5 5.0-8.0 Urine Specific [place] 1.039 H 1.001-1.031 Urine Protein NEGATIVE NEGATIVE mg/dL Urine Glucose (UA) >=1000 H NEGATIVE mg/dL Urine Ketones 10 H NEGATIVE mg/dL Urine Occult Blood NEGATIVE NEGATIVE Urine Nitrate NEGATIVE NEGATIVE Urine Bilirubin NEGATIVE NEGATIVE mg/dL Urine Urobilinogen 0.2 0.2-1.0 mg/dL Urine Leukocyte Esterase NEGATIVE NEGATIVE [place]/uL Urine RBC 0-1 0-1 /HPF Urine WBC 6-10 H 0-1 /HPF Urine Squamous Epithelial Cells RARE 0-2 /HPF Urine Bacteria None None Seen /HPF Whole Blood Ketones Quantitative 0.4 0.0-0.6 mmol/L Bedside Glucose Comment Notified Nurse Current Medications Medications (Trade) Dose Ordered Sig/Carol Route PRN Reason Start Time Stop Time Status Last Admin Dose Admin Acetaminophen (TYLenol 325MG TAB) 650 mg Q4H PRN PO MILD PAIN (1-3) 02/10/25 05:00 03/12/25 04:59 Acetaminophen (TYLenol 325MG TAB) 650 mg Q6H PRN PO TEMPERATURE GREATER THAN 101.5 02/10/25 05:00 03/12/25 04:59 Aspirin (Aspirin 325mg Tab) 325 mg ONCE PO 02/10/25 14:30 02/10/25 17:22 DC 02/10/25 14:32 325 MG Aspirin (Aspirin 81mg Ec Tab) 81 mg DAILY PO 02/10/25 09:00 03/12/25 08:59 02/11/25 09:15 81 MG Clopidogrel Bisulfate (plaVIX 300MG TAB) 600 mg ONCE PO 02/10/25 14:00 02/10/25 17:22 DC 02/10/25 14:19 600 MG Clopidogrel Bisulfate (plaVIX 75MG) 75 mg DAILY PO 02/11/25 09:00 02/11/25 07:28 DC Dextrose (D50w) 50 ml AD PRN IV HYPOGLYCEMIA PROTOCOL 02/10/25 05:00 03/12/25 04:59 Empaglifozin (Jardiance 10mg) 10 mg DAILY PO 02/10/25 14:30 03/12/25 14:29 02/11/25 09:16 10 MG Famotidine (Pepcid 20mg Tab) 20 mg DAILY PO 02/10/25 09:00 03/12/25 08:59 02/11/25 09:16 20 MG Furosemide (LASix 20MG TAB) 20 mg DAILY PO 02/11/25 09:00 03/13/25 08:59 02/11/25 09:16 20 MG Furosemide (LASix 20MG VIAL) 20 mg ONCE IV 02/10/25 17:00 02/10/25 21:00 DC 02/10/25 17:00 20 MG Furosemide (LASix 20MG VIAL) 20 mg ONCE IV 02/11/25 09:00 02/11/25 07:43 DC Glucagon (Glucagon 1mg Kit) 1 mg AD PRN IM HYPOGLYCEMIA PROTOCOL 02/10/25 05:00 03/12/25 04:59 Heparin Sodium/ Dextrose 250 ml @ 0 mls/hr PROTOCOL IV 02/10/25 03:00 02/10/25 17:22 DC 02/10/25 03:00 16.2 MLS/HR Heparin Sodium/ Dextrose 250 ml @ 0 mls/hr Q6H IV 02/11/25 06:30 03/13/25 06:29 02/11/25 13:52 9 MLS/HR Insulin Glargine (LANtus 100 UNITS/ML 10 ML VIAL) 15 units DAILY08 SQ 02/11/25 08:00 03/13/25 07:59 02/11/25 09:18 15 UNITS Insulin Human Regular (humuLIN R 100 UNIT/ML 3ML) INSULIN SLIDING SCAL... Q4H SQ 02/10/25 05:00 02/10/25 11:10 DC 02/10/25 09:15 6 UNIT Insulin Human Regular (humuLIN R 100 UNIT/ML 3ML) INSULIN SLIDING SCAL... Q6H6 SQ 02/10/25 12:00 03/12/25 04:59 02/11/25 13:53 6 UNIT Magnesium Sulfate 50 ml @ 0 mls/hr PROTOCOL PRN IV OTHER [SEE ORDER COMMENTS] 02/10/25 05:00 03/12/25 04:59 Nitroglycerin (Nitrostat) 0.4 mg PROTOCOL PRN SL CHEST PAIN 02/10/25 05:00 03/12/25 04:59 Ondansetron HCl (zoFRAN 4MG INJ) 4 mg Q6H PRN IV NAUSEA/VOMITING 02/10/25 05:00 03/12/25 04:59 Potassium Chloride 100 ml @ 100 mls/hr AD PRN IV POTASSIUM PROTOCOL 02/10/25 05:00 03/12/25 04:59 Potassium Chloride (K-Dur/Klor-Con 20meq) 20 meq AD PRN PO POTASSIUM PROTOCOL 02/10/25 05:00 03/12/25 04:59 Potassium Chloride (KCl 10% Elixir 20meq/15ml) 20 meq AD PRN PO POTASSIUM PROTOCOL 02/10/25 05:00 03/12/25 04:59 Sacubitril/ Valsartan (Entresto 24 Mg-26 Mg Tablet) 0.5 each BID PO 02/10/25 21:00 03/12/25 20:59 02/11/25 09:16 0.5 EACH Sodium Chloride 1,000 ml @ 100 mls/hr Q10H IV 02/10/25 05:00 02/10/25 17:22 DC 02/10/25 14:20 100 MLS/HR Spironolactone (Aldactone 25mg) 25 mg DAILY PO 02/10/25 14:30 03/12/25 14:29 02/11/25 09:15 25 MG DIAGNOSTICS / RADIOLOGY: [ ] ASSESSMENT: Chest pain rule out ACS: NSTEMI POA Hyperglycemia secondary to uncontrolled diabetes POA Hyperlipidemia POA Medication noncompliance, POA Obesity POA HI/Coronary artery disease with cardiac stent POA PLAN: NSTEMI POA: * EKG was done which revealed sinus rhythm heart rate 85 with atrial premature complex anterolateral infarct age indeterminate. Second EKG result revealed sinus rhythm heart rate 73 with left anterior fascicular block. Probable a nterolateral infarct age indeterminate. Abnormal T consider ischemia lateral leads. * PERC score was one, Wells score was zero. Very low suspicion for Pulmonary Embolism. * Chest x-ray was done, results show no acute cardiopulmonary process * 2-D ECHO with ejection fraction 25% with segmental akinesis (apical, apical lateral, anteroapical), LDL 89, BNP 488 * Troponin trends 21>174>11794 * Left heart catheterization revealed severe three-vessel CAD with occluded mid LAD, 90% proximal left circumflex, 95% distal RCA, and 90% ostial PDA. * CT surgery was consulted who recommended CABG with Impella left ventricle assist support. The patient with the family to decide. * on Heparin drip and aspirin 81 mg p.o. daily Hyperglycemia secondary to uncontrolled diabetes POA: * HbA1c 13.9, blood glucose 181 * Following the Endocrinology recommendations. He is on Lantus 15 units, low- dose sliding scale insulin and Jardiance 10 mg * We will monitor blood glucose. Hypokalemia Hypomagnesemia Potassium 3.3, magnesium 1.6 We will replete the electrolytes and monitor Supportive measures * GI prophylaxis with Famotidine * DVT prophylaxis with SCD's. Already on Heparin. ATTESTATION BY PHYSICIAN I have seen and examined the patient. I reviewed the documentation, medical decision making, and treatment plan as noted by the resident provider above. I agree with the findings and plan of care. Jason Hare IV, MD, SUNIL MD Feb 11, 2025 14:21
--- NOTE | 2025-02-11 23:42 | HMCIMG ---
STUDY: X-RAY OF THE CHEST, 1 VIEW HISTORY: Congestive heart failure. TECHNIQUE: A single frontal view of the chest is submitted for interpretation. COMPARISON: Chest radiograph from 02/10/2025 at 01:02 EST. FINDINGS: Pulmonary heck: Improved aeration of both lungs compared with the prior study. Mild prominence of the pulmonary vascular markings is present, compatible with mild vascular congestion. No focal consolidation or overt pulmonary edema is identified. Cardiac silhouette: Borderline cardiomegaly, stable in size and contour compared with the prior examination. Mediastinum and renzo: Mediastinal contours are within normal limits. Hilar vascular structures are mildly prominent in keeping with vascular congestion. Osseous structures: Visualized ribs, clavicles, and thoracic spine show no acute osseous abnormality. Miscellaneous: No sizable pleural effusion or pneumothorax is identified. Costophrenic angles are clear. No free subdiaphragmatic air is seen. IMPRESSION: * Mild pulmonary vascular congestion with improved lung aeration compared with the chest radiograph from 02/10/2025 at 01:02 EST; no overt pulmonary edema. * Stable borderline cardiomegaly. /[place]
[2025-02-12] VITALS (9 sets, daily range): BP systolic 92–122; BP diastolic 44–69; PULSE 62–70; RESP 18; TEMP 97.7–98.7; O2SAT 96
[2025-02-12 03:41] LABS: IMMATURE GRANULOCYTE ABSOLUTE 0.05 K/uL (0-1); NUCLEATED RED BLOOD CELLS 0.0 % (0.0-0.19); PLATELET COUNT (AUTO) 176 K/uL (130-400); RED BLOOD CELL COUNT(AUTO) 5.29 MIL/uL (4.50-6.20); RED CELL DISTRIBUTION WIDTH 13.8 % (11.0-15.5); WHITE BLOOD COUNT (AUTO) 9.9 K/uL (4.8-10.8)
[2025-02-12 03:57] LABS: INR 1.07 (0.85-1.15)
[2025-02-12 04:08] LABS: CREATININE 0.9 mg/dL (0.5-1.3); GLOMERULAR FILTR. RATE CALC 89.0 mL/min (>90); GLUCOSE,RANDOM 100.0 mg/dL (70-105); SODIUM SERUM 140.0 mmol/L (136-145); UREA NITROGEN, BLOOD 15.0 mg/dL (7-18)
--- NOTE | 2025-02-12 07:01 | PN ---
[facility] [address] Cardiology Progress Note Calves on cardiology progress note February 12, 2025 Problems: 1. Non ST-elevation myocardial infarction 2. Remote myocardial infarction status post stenting of the mid LAD and distal LAD February 2016 3. Multivessel CAD with ejection fraction of 20% per for [facility] 5. Diabetes mellitus type 2 6. Dyslipidemia 7. Hypertension 8. 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 Hindu 10. History of beta estela intolerance due to erectile dysfunction The patient was pain-free overnight. The patient is considered a high-risk patient for bypass surgery. He has been offered bypass with Impella support by Dr. Kaur. This morning blood pressure is running 110-120 systolic heart rate has been in the 60s and 70s. White count 9.9 hemoglobin 15.6 platelet count 320783. Potassium 3.1 which will be supplemented with protocol BUN 15 creatinine 0.9. Troponins peaked at 8000 and are coming down. The patient continues on aspirin empagliflozin famotidine furosemide 20 mg daily insulin scale potassium protocol Entresto spironolactone and heparin protocol. The patient had bradycardia on admission but heart rate is coming up as his blood pressure. We will start low-dose beta estela therapy and observe. Dr. Mann we will resume care in the morning. MAGGIE PIKE MD Feb 12, 2025 07:00
[2025-02-12] MEDS: MAGNESIUM 2GM PREMIX 50ML 50 ML IV PRN (07:13)
[2025-02-12] MEDS: PoTASSium chloRIDE 20MEQ ER 20 MEQ ERTAB PO PRN (07:13)
[2025-02-12 10:26] LABS: INR 1.06 (0.85-1.15)
--- NOTE | 2025-02-12 11:24 | PN ---
SUBJECTIVE: The patient has coronary artery disease and ischemic cardiomyopathy. The patient was recommended to have an Impella supported coronary artery bypass grafting. The family requested further teaching on the Impella catheter and the new accounts banking representative was in the room talking with him and his and kids. OBJECTIVE: VITAL SIGNS: Temperature 97.9, blood pressure 122/69, pulse 64, respirations 18, oxygen saturation 96% on room air. HEENT: Exam is normocephalic, atraumatic. Extraocular movements are intact. HEART: S1 and S2 and regular. LUNGS: Unlabored at rest but are somewhat distant. ABDOMEN: Reveals at least moderate obesity. EXTREMITIES: Perfusion appears adequate. ASSESSMENT AND PLAN: Coronary artery disease with ischemic cardiomyopathy. Still recommend coronary artery bypass grafting with the L5.5 Impella left ventricular assist device. In the meantime, continue aspirin, metoprolol, Aldactone, Jardiance, Entresto, and Lasix. TID: [id number] RECEIPT: [id number]
--- NOTE | 2025-02-12 12:17 | PN ---
[facility] PROGRESS NOTE Date of Service: Feb 12, 2025 Time of Service: 12:16 HISTORY OF PRESENT ILLNESS: This is a 74-year-old male,a Oriental orthodox by adventism whith past medical history of diabetes, hyperlipidemia and TX/coronary artery disease with cardiac stent who presented to the Ed for complaints of midsternal chest pain that is non radiating associated with diaphoresis and this happened when patient was laying down in bed aroun 11:50 pm last night and decided to come to the ED for evaluation.Patient reports pain was persistent.As per patient he had a history of heart attack before and underwent a stent placement.Patient reports the only medication he is taking is Metformin.Patient states he is supposed to be on Aspirin but has stopped taking it.Patient reports he occasionally drinks beer and last drink was yesterday ,had 2 beers he said. Seen and examined patient in the ER awake,alert and coherent,appears comfortable.Patient denies fever,chills,cough,nausea,vomiting,palpitation and shortness of breath. Latest vital signs temperature 98.2, heart rate 75, blood pressure 124/70 saturation 97% on room air. Labs: CBC unremarkable. Chloride 99, BUN 21, random glucose 469 to 439 to 327. Troponin from -. ECG result revealed revealed sinus rhythm heart rate 85 with atrial premature complex anterolateral infarct age indeterminate. Second EKG result revealed sinus rhythm heart rate 73 with left anterior fascicular block. Probable anterolateral infarct age indeterminate. Abnormal T consider ischemia lateral leads.. Chest x-ray result revealed no acute cardiopulmonary process is evident. While in the ER patient received 1500 mL NS bolus, insulin 5 units IV, aspirin 325 mg p.o. and patient was started on heparin drip per ACS protocol. SUBJECTIVE: 02/10/25: Patient was seen and evaluated in ED9. Patient was alert, awake and orientedX3. Patient reports that he doesn't have any chest pain today. Patient reports occasional shortness of breath during nights. Patient denies any shortness of breath, nausea, vomiting, palpitations and lightheadedness. Patient denies any abdominal pain, burning urination. Patient mentions that he only takes metformin 3-4 times per week and has stopped taking aspirin because it wasn't reconciled. Troponin from -. 2D ECHO was done, pending results. Patient is currently on Heparin drip 02/11/25: Patient was evaluated at the bedside this morning. No overnight event. He is AAO x3. patient reported that he does not have chest pain or shortness of breath. He is hemodynamically stable. The labs remarkable for potassium 3.3, magnesium 1.6, HbA1c 13.9, troponin [id number]. Left heart catheterization revealed severe triple-vessel disease. Echocardiogram revealed 25% ejection fraction with segmental akinesis. CT surgery was consulted who recommended CABG with Impella left ventricle assist. Family to decide about the procedure. He is currently on heparin drip, aspirin. Endocrinology on board. Rest of the plan as discussed below. 02/12/25: Patient was evaluated at the bedside this morning. No overnight event. He is AAO x3. patient reported that he does not have chest pain or shortness of breath. He is hemodynamically stable. Cardiology is on board and Dr. Blanton have suggested low-dose beta estela like metoprolol tartrate 12.5 mg b.i.d. for his heart failure. Dr Kaur still recommends CABG with 5.5 Impella LVAD and the patient agrees to it. We will continue Entresto, Aldactone, Jardiance, aspirin, Lasix as per CT surgeon recommendations. Today his potassium is 3.1 and we would like to be above 4 for CABG patients. So we will replace potassium REVIEW OF SYSTEMS CONSTITUTIONAL: Denies fevers, chills, or night sweats. No unintentional weight loss reported. NEUROLOGICAL: Denies headache, amaurosis fugax, motor weakness, sensory deficit, vertigo/spinning sensation, gait abnormalities, or tremors. ENT: No hearing loss, otalgia, otorrhea, rhinitis, rhinorrhea, hoarseness, or sore throat. CARDIOVASCULAR: Denies chest pain, dyspnea on exertion, orthopnea, paroxysmal nocturnal dyspnea, palpitations, life-threatening arrhythmias, claudication. PULMONARY: Denies any shortness of breath, cough, phlegm/sputum, hemoptysis, pleuritic chest pain. SLEEP: Denies morning headaches, daytime somnolence or napping. Denies difficulty falling asleep, staying asleep, waking from sleep. Denies knowledge of snoring. GASTROINTESTINAL: Denies any type of dysphagia to either liquids or solids. Denies nausea, vomiting, pyrosis, early satiety, abdominal pain, diarrhea, constipation, or changes in stool consistency or caliber. Denies coffee-ground emesis, hematemesis, hematochezia, or melanotic stools. GENITOURINARY: Denies frequency, urgency, nocturia, hematuria or incontinence (Storage/Irritative symptoms.) Low urinary stream, straining to void, urinary intermittency or hesitancy, splitting of the voiding stream, terminal dribbling. ENDOCRINOLOGIC: Denies polyuria, polydipsia, polyphagia or heat/cold intolerances. HEMATOLOGIC: Denies thrombophilia/previous clots, or coagulopathy/bleeding disorders. ONCOLOGIC: Denies personal history of malignancy. DERMATOLOGIC: Denies rashes or pruritus. PSYCHIATRIC: Denies any suicidal or homicidal ideation. Denies hallucinations. PHYSICAL EXAM GENERAL APPEARANCE: The patient is awake, alert, and oriented, in no acute c ardiopulmonary distress. NEUROLOGICAL: Cranial nerves II-XII grossly intact. Motor is 5/5 in bilateral upper and lower extremities proximal to distal. No sensory deficits. HEENT: Face is symmetric. Pupils are equal and reactive. Extraocular movements are intact. NECK: Supple. No JVD. No thyromegaly. No submental, submandibular, pre- /postauricular, occipital or supraclavicular lymphadenopathy. CHEST: Normal chest expansion. No Telemetry. LUNGS: Absence of any rales, rhonchi or any wheezing. CARDIOVASCULAR: Regular. S1 and S2 normal. No appreciable rubs, murmurs or gallops. ABDOMEN: Soft, nontender, and nondistended. There is no rebound, voluntary guarding, or rigidity. : Deferred. No De Jesus. EXTREMITIES: Non-edematous and not cyanotic. No clubbing. Good capillary refill. SKIN: No skin breakdown. Vital Signs (last 8hr) Date Time Temp Pulse Resp B/P (MAP) Pulse Ox O2 Delivery O2 Flow Rate FiO2 02/12/25 08:00 96 Room Air* 0 21 02/12/25 07:55 97.9 64 18 122/69 96 Room Air LABS: Laboratory: Test 02/12/25 11:33 02/12/25 10:07 02/12/25 03:11 02/11/25 19:48 Range/Units Whole Blood Glucose 145 H 70-110 MG/DL Prothrombin Time 11.2 9.6-11.6 SEC Prothromb Time International Ratio 1.06 0.85-1.15 Activated Partial Thromboplast Time 58.1 #H 26.3-35.5 SEC White Blood Count 9.9 4.8-10.8 K/uL Red Blood Count 5.29 4.50-6.20 MIL/uL Hemoglobin 15.6 14.0-18.0 g/dL Hematocrit 45.3 42-54 % Mean Corpuscular Volume 85.6 79-99 fL Mean Corpuscular Hemoglobin 29.5 27.0-33.0 pg Mean Corpuscular Hemoglobin Concent 34.4 32.0-36.0 g/dL Red Cell Distribution Width 13.8 11.0-15.5 % Platelet Count 176 130-400 K/uL Mean Platelet Volume 11.6 H 7.5-10.5 fL Immature Granulocyte % (Auto) 0.5 0-1 % Neutrophils (%) (Auto) 59.6 40.0-77.0 % Lymphocytes (%) (Auto) 26.8 21.0-51.0 % Monocytes (%) (Auto) 8.5 3.0-13.0 % Eosinophils (%) (Auto) 3.7 0.0-8.0 % Basophils (%) (Auto) 0.9 0.0-5.0 % Neutrophils # (Auto) 5.9 1.8-7.7 K/uL Lymphocytes # (Auto) 2.7 1.0-4.8 K/uL Monocytes # (Auto) 0.8 0.1-1.0 K/uL Eosinophils # (Auto) 0.37 0.00-0.70 K/uL Basophils # (Auto) 0.09 0.00-0.20 K/uL Absolute Immature Granulocyte (auto 0.05 0-1 K/uL Nucleated Red Blood Cells 0.0 0.0-0.19 % Sodium Level 140 136-145 mmol/L Potassium Level 3.1 L 3.5-5.1 mmol/L Chloride Level 103 101-111 mmol/L Carbon Dioxide Level 28 21-32 mmol/L Blood Urea Nitrogen 15 7-18 mg/dL Creatinine 0.9 0.5-1.3 mg/dL Glomerular Filtration Rate Calc 89 >90 mL/min Random Glucose 100 70-105 mg/dL Total Calcium 8.7 8.5-10.1 mg/dL Magnesium Level 1.70 L 1.80-2.40 mg/dL Troponin I High Sensitivity 7546 *H 4-75 ng/L Test 02/11/25 03:13 02/10/25 19:07 Range/Units Erythrocyte Sedimentation Rate 9 0-20 MM/HR Hemoglobin A1c 13.9 H 4.0-6.0 % Estimated Average Glucose (eAG) 352 H 70-126 mg/dL Total Bilirubin 1.6 H 0.2-1.0 mg/dL Aspartate Amino Transf (AST/SGOT) 73 H 10-37 U/L Alanine Aminotransferase (ALT/SGPT) 35 12-78 U/L Alkaline Phosphatase 60 50-136 U/L Total Creatine Kinase 287 #H 21-232 U/L Total Protein 5.9 L 6.0-8.3 g/dL Albumin 3.1 L 3.5-5.0 g/dL Triglycerides Level 75 30-200 mg/dL Cholesterol Level 139 <200 mg/dL LDL Cholesterol 82 0-99 mg/dL HDL Cholesterol 49 29-71 mg/dL Thyroid Stimulating Hormone (TSH) 2.64 0.36-3.74 uIU/mL B-Type Natriuretic Peptide 488 H 0-100 pg/mL Current Medications Medications (Trade) Dose Ordered Sig/Carol Route PRN Reason Start Time Stop Time Status Last Admin Dose Admin Acetaminophen (TYLenol 325MG TAB) 650 mg Q4H PRN PO MILD PAIN (1-3) 02/10/25 05:00 03/12/25 04:59 Acetaminophen (TYLenol 325MG TAB) 650 mg Q6H PRN PO TEMPERATURE GREATER THAN 101.5 02/10/25 05:00 03/12/25 04:59 Aspirin (Aspirin 325mg Tab) 325 mg ONCE PO 02/10/25 14:30 02/10/25 17:22 DC 02/10/25 14:32 325 MG Aspirin (Aspirin 81mg Ec Tab) 81 mg DAILY PO 02/10/25 09:00 03/12/25 08:59 02/12/25 08:47 81 MG Clopidogrel Bisulfate (plaVIX 300MG TAB) 600 mg ONCE PO 02/10/25 14:00 02/10/25 17:22 DC 02/10/25 14:19 600 MG Clopidogrel Bisulfate (plaVIX 75MG) 75 mg DAILY PO 02/11/25 09:00 02/11/25 07:28 DC Dextrose (D50w) 50 ml AD PRN IV HYPOGLYCEMIA PROTOCOL 02/10/25 05:00 03/12/25 04:59 Empaglifozin (Jardiance 10mg) 10 mg DAILY PO 02/10/25 14:30 03/12/25 14:29 02/12/25 08:48 10 MG Famotidine (Pepcid 20mg Tab) 20 mg DAILY PO 02/10/25 09:00 03/12/25 08:59 02/12/25 08:49 20 MG Furosemide (LASix 20MG TAB) 20 mg DAILY PO 02/11/25 09:00 03/13/25 08:59 02/12/25 08:48 20 MG Furosemide (LASix 20MG VIAL) 20 mg ONCE IV 02/10/25 17:00 02/10/25 21:00 DC 02/10/25 17:00 20 MG Furosemide (LASix 20MG VIAL) 20 mg ONCE IV 02/11/25 09:00 02/11/25 07:43 DC Glucagon (Glucagon 1mg Kit) 1 mg AD PRN IM HYPOGLYCEMIA PROTOCOL 02/10/25 05:00 03/12/25 04:59 Heparin Sodium/ Dextrose 250 ml @ 0 mls/hr PROTOCOL IV 02/10/25 03:00 02/10/25 17:22 DC 02/10/25 03:00 16.2 MLS/HR Heparin Sodium/ Dextrose 250 ml @ 0 mls/hr Q6H IV 02/11/25 06:30 03/13/25 06:29 02/12/25 11:23 0 MLS/HR Insulin Glargine (LANtus 100 UNITS/ML 10 ML VIAL) 15 units DAILY08 SQ 02/11/25 08:00 03/13/25 07:59 02/12/25 08:54 15 UNITS Insulin Human Regular (humuLIN R 100 UNIT/ML 3ML) 3 unit TIDAC SQ 02/12/25 07:30 03/14/25 07:29 Insulin Human Regular (humuLIN R 100 UNIT/ML 3ML) INSULIN SLIDING SCAL... Q4H SQ 02/10/25 05:00 02/10/25 11:10 DC 02/10/25 09:15 6 UNIT Insulin Human Regular (humuLIN R 100 UNIT/ML 3ML) INSULIN SLIDING SCAL... Q6H6 SQ 02/10/25 12:00 03/12/25 04:59 02/11/25 17:29 2 UNIT Magnesium Sulfate 50 ml @ 0 mls/hr PROTOCOL PRN IV OTHER [SEE ORDER COMMENTS] 02/10/25 05:00 03/12/25 04:59 02/12/25 07:13 25 MLS/HR Metoprolol Tartrate (loprESSOR) 12.5 mg BID PO 02/12/25 09:00 03/14/25 08:59 02/12/25 08:49 12.5 MG Nitroglycerin (Nitrostat) 0.4 mg PROTOCOL PRN SL CHEST PAIN 02/10/25 05:00 03/12/25 04:59 Ondansetron HCl (zoFRAN 4MG INJ) 4 mg Q6H PRN IV NAUSEA/VOMITING 02/10/25 05:00 03/12/25 04:59 Potassium Chloride 100 ml @ 100 mls/hr AD PRN IV POTASSIUM PROTOCOL 02/10/25 05:00 03/12/25 04:59 Potassium Chloride (K-Dur/Klor-Con 20meq) 20 meq AD PRN PO POTASSIUM PROTOCOL 02/10/25 05:00 03/12/25 04:59 02/12/25 09:26 20 MEQ Potassium Chloride (KCl 10% Elixir 20meq/15ml) 20 meq AD PRN PO POTASSIUM PROTOCOL 02/10/25 05:00 03/12/25 04:59 Sacubitril/ Valsartan (Entresto 24 Mg-26 Mg Tablet) 0.5 each BID PO 02/10/25 21:00 03/12/25 20:59 02/12/25 08:48 0.5 EACH Sodium Chloride 1,000 ml @ 100 mls/hr Q10H IV 02/10/25 05:00 02/10/25 17:22 DC 02/10/25 14:20 100 MLS/HR Spironolactone (Aldactone 25mg) 25 mg DAILY PO 02/10/25 14:30 03/12/25 14:29 02/12/25 08:47 25 MG DIAGNOSTICS / RADIOLOGY: [ ] ASSESSMENT: Chest pain rule out ACS: NSTEMI POA Hyperglycemia secondary to uncontrolled diabetes POA Hyperlipidemia POA Medication noncompliance, POA Obesity POA TX/Coronary artery disease with cardiac stent POA PLAN: NSTEMI POA: * EKG was done which revealed sinus rhythm heart rate 85 with atrial premature complex anterolateral infarct age indeterminate. Second EKG result revealed sinus rhythm heart rate 73 with left anterior fascicular block. Probable anterolateral infarct age indeterminate. Abnormal T consider ischemia lateral leads. * PERC score was one, Wells score was zero. Very low suspicion for Pulmonary Embolism. * Chest x-ray was done, results show no acute cardiopulmonary process * 2-D ECHO with ejection fraction 25% with segmental akinesis (apical, apical la teral, anteroapical), LDL 89, BNP 488 * Troponin trends [id number] * Left heart catheterization revealed severe three-vessel CAD with occluded mid LAD, 90% proximal left circumflex, 95% distal RCA, and 90% ostial PDA. * CT surgery was consulted who recommended CABG with Impella left ventricle assist support. The patient with the family to decide. * on Heparin drip and aspirin 81 mg p.o. daily Hyperglycemia secondary to uncontrolled diabetes POA: * HbA1c 13.9, blood glucose 181 * Following the Endocrinology recommendations. He is on Lantus 15 units, low- dose sliding scale insulin and Jardiance 10 mg * We will monitor blood glucose. Hypokalemia Hypomagnesemia Potassium 3.1, magnesium 1.6 We will replete the electrolytes and monitor We want potassium to be minimum of 4-4.5 for CABG patients We will start 2 doses of potassium 40 mEq per mL once and recheck potassium levels after 4 hours. We will start Slow-Mag oral t.i.d. once and recheck magnesium levels tomorrow Supportive measures * GI prophylaxis with Famotidine * DVT prophylaxis with SCD's. Already on Heparin. ATTESTATION BY PHYSICIAN I have seen and examined the patient. I reviewed the documentation, medical decision making, and treatment plan as noted by the resident physician above. I agree with the findings and plan of care. Jason Hare IV, MD, BHAVANI MD Feb 12, 2025 12:17
[2025-02-12] MEDS: MAGNESIUM CHLORIDE 64 MG TABLET.SA PO ONE (13:11)
--- NOTE | 2025-02-12 20:25 | PN ---
Endocrinology progress note DOS: 02/12/25 subjective: glucose are improving. Home diabetic regimen: metformin 500 mg bid, Hba1c 13.9% REVIEW OF SYSTEMS CONSTITUTIONAL: Denies fevers, chills, or night sweats. No unintentional weight loss reported. NEUROLOGICAL: Denies headache, amaurosis fugax, motor weakness, sensory deficit, vertigo/spinning sensation, gait abnormalities, or tremors. ENT: No hearing loss, otalgia, otorrhea, rhinitis, rhinorrhea, hoarseness, or sore throat. CARDIOVASCULAR: Deniesdyspnea on exertion, orthopnea, paroxysmal nocturnal dyspnea, palpitations, life-threatening arrhythmias, claudication. PULMONARY: Denies any shortness of breath, cough, phlegm/sputum, hemoptysis, pleuritic chest pain. SLEEP: Denies morning headaches, daytime somnolence or napping. Denies difficulty falling asleep, staying asleep, waking from sleep. Denies knowledge of snoring. GASTROINTESTINAL: Denies any type of dysphagia to either liquids or solids. Denies nausea, vomiting, pyrosis, early satiety, abdominal pain, diarrhea, constipation, or changes in stool consistency or caliber. Denies coffee-ground emesis, hematemesis, hematochezia, or melanotic stools. GENITOURINARY: Denies frequency, urgency, nocturia, hematuria or incontinence (Storage/Irritative symptoms.) Low urinary stream, straining to void, urinary intermittency or hesitancy, splitting of the voiding stream, terminal dribbling. ENDOCRINOLOGIC: Denies polyuria, polydipsia, polyphagia or heat/cold intolerances. HEMATOLOGIC: Denies thrombophilia/previous clots, or coagulopathy/bleeding disorders. ONCOLOGIC: Denies personal history of malignancy. DERMATOLOGIC: Denies rashes or pruritus. PSYCHIATRIC: Denies any suicidal or homicidal ideation. Denies hallucinations. PAST MEDICAL HISTORY: [ Diabetes, hyperlipidemia, CT/coronary artery disease ] PAST SURGICAL HISTORY: [ Cardiac stent, cholecystectomy and left inguinal hernia repair ] PAST SOCIAL HISTORY: [ Patient lives with . Patient admits he drinks two beer yesterday. Patient reports he occasional drinks alcohol denies cigarette and recreational drug use. ] FAMILY HISTORY: [ Diabetes, cardiovascular disease, asthma and cancer ] Coded Allergies: No Known Drug Allergies (Unverified Allergy, Unknown, 08/31/15) ASSESSMENT: Hyperglycemia secondary to uncontrolled diabetes POA Home diabetic regimen: metformin 500 mg bid, Hba1c 13.9% glucose is uncontrolled at home and glucose is high, so insulin adjusted. Chest pain rule out ACS: NSTEMI POA triple vessel disease Hyperlipidemia POA Obesity POA CT/Coronary artery disease with cardiac stent POA PLAN: continue Lantus 15 units daily and adjust for fasting glucose. continue Regular insulin 3 units three times before meals and adjust for post- prandial glucose. Continue medium dose sliding scale insulin. Monitor glucose q x 6 hourly. Continue carb consistent diet. Keep glucose less than 180 mg/dl. Patient will need insulin at discharge. Vitals/Labs Vital Signs Date Time Temp Pulse Resp B/P (MAP) Pulse Ox O2 Delivery O2 Flow Rate FiO2 02/12/25 18:48 98.4 70 18 105/62 96 Room Air 02/12/25 08:00 0 21 Laboratory Tests 02/12/25 03:11 Medications Current Medications Sodium Chloride 1,000 ml @ 0 mls/hr ONCE ONCE IV; Start 02/10/25 at 01:00; Stop 02/10/25 at 00:46; Status DC Sodium Chloride 500 ml @ 0 mls/hr ONCE ONCE IV Last administered on 02/10/25at 00:53; Start 02/10/25 at 01:00; Stop 02/10/25 at 01:01; Status DC Insulin Human Regular 5 unit ONCE ONCE IV Last administered on 02/10/25at 01:30; Start 02/10/25 at 01:30; Stop 02/10/25 at 01:31; Status DC Aspirin 325 mg ONCE ONCE PO Last administered on 02/10/25at 02:32; Start 02/10/25 at 02:30; Stop 02/10/25 at 02:31; Status DC Heparin Sodium/ Dextrose 250 ml @ 0 mls/hr PROTOCOL IV Last administered on 02/10/25at 03:00; Start 02/10/25 at 03:00; Stop 02/10/25 at 17:22; Status DC Heparin Sodium (Porcine) 7,000 unit ONCE ONCE SQ Last administered on 02/10/25at 02:55; Start 02/10/25 at 03:00; Stop 02/10/25 at 03:01; Status DC Acetaminophen 650 mg Q6H PRN PO Last administered on 02/12/25at 17:13; Start 02/10/25 at 05:00; Stop 03/12/25 at 04:59 Acetaminophen 650 mg Q4H PRN PO; Start 02/10/25 at 05:00; Stop 03/12/25 at 04:59 Ondansetron HCl 4 mg Q6H PRN IV; Start 02/10/25 at 05:00; Stop 03/12/25 at 04:59 Nitroglycerin 0.4 mg PROTOCOL PRN SL; Start 02/10/25 at 05:00; Stop 03/12/25 at 04:59 Famotidine 20 mg DAILY PO Last administered on 02/12/25at 08:49; Start 02/10/25 at 09:00; Stop 03/12/25 at 08:59 Sodium Chloride 1,000 ml @ 100 mls/hr Q10H IV Last administered on 02/10/25at 14:20; Start 02/10/25 at 05:00; Stop 02/10/25 at 17:22; Status DC Insulin Human Regular INSULIN SLIDING SCAL... Q4H SQ Last administered on 02/10/25at 09:15; Start 02/10/25 at 05:00; Stop 02/10/25 at 11:10; Status DC Dextrose 50 ml AD PRN IV; Start 02/10/25 at 05:00; Stop 03/12/25 at 04:59 Glucagon 1 mg AD PRN IM; Start 02/10/25 at 05:00; Stop 03/12/25 at 04:59 Magnesium Sulfate 50 ml @ 0 mls/hr PROTOCOL PRN IV Last administered on 02/12/25at 07:13; Start 02/10/25 at 05:00; Stop 03/12/25 at 04:59 Potassium Chloride 100 ml @ 100 mls/hr AD PRN IV; Start 02/10/25 at 05:00; Stop 03/12/25 at 04:59 Potassium Chloride 20 meq AD PRN PO; Start 02/10/25 at 05:00; Stop 03/12/25 at 04:59 Potassium Chloride 20 meq AD PRN PO Last administered on 02/12/25at 12:55; Start 02/10/25 at 05:00; Stop 03/12/25 at 04:59 Aspirin 81 mg DAILY PO Last administered on 02/12/25at 08:47; Start 02/10/25 at 09:00; Stop 03/12/25 at 08:59 Insulin Human Regular INSULIN SLIDING SCAL... Q6H6 SQ Last administered on 02/11/25at 17:29; Start 02/10/25 at 12:00; Stop 03/12/25 at 04:59 Clopidogrel Bisulfate 600 mg ONCE PO Last administered on 02/10/25at 14:19; Start 02/10/25 at 14:00; Stop 02/10/25 at 17:22; Status DC Aspirin 325 mg ONCE PO Last administered on 02/10/25at 14:32; Start 02/10/25 at 14:30; Stop 02/10/25 at 17:22; Status DC Sacubitril/ Valsartan 0.5 each BID PO Last administered on 02/12/25at 20:13; Start 02/10/25 at 21:00; Stop 03/12/25 at 20:59 Empaglifozin 10 mg DAILY PO Last administered on 02/12/25at 08:48; Start 02/10/25 at 14:30; Stop 03/12/25 at 14:29 Spironolactone 25 mg DAILY PO Last administered on 02/12/25at 08:47; Start 02/10/25 at 14:30; Stop 03/12/25 at 14:29 Furosemide 20 mg ONCE IV Last administered on 02/10/25at 17:00; Start 02/10/25 at 17:00; Stop 02/10/25 at 21:00; Status DC Furosemide 20 mg ONCE IV; Start 02/11/25 at 09:00; Stop 02/11/25 at 07:43; Status DC Lidocaine HCl 20 ml STK-MED ONCE .ROUTE; Start 02/10/25 at 15:22; Stop 02/10/25 at 15:23; Status DC Iohexol 35,000 mg STK-MED ONCE IV; Start 02/10/25 at 15:22; Stop 02/10/25 at 15:23; Status DC Iohexol 50 ml STK-MED ONCE IV; Start 02/10/25 at 15:22; Stop 02/10/25 at 15:23; Status DC Heparin Sodium (Porcine) 10,000 unit STK-MED ONCE .ROUTE; Start 02/10/25 at 15:23; Stop 02/10/25 at 15:23; Status DC Heparin Sodium/ Sodium Chloride 1,000 ml @ As Directed STK-MED ONCE IV; Start 02/10/25 at 15:23; Stop 02/10/25 at 15:23; Status DC Nitroglycerin 50 mg STK-MED ONCE .ROUTE; Start 02/10/25 at 15:23; Stop 02/10/25 at 15:23; Status DC Heparin Sodium/ Sodium Chloride 500 ml @ As Directed STK-MED ONCE IV; Start 02/10/25 at 15:35; Stop 02/10/25 at 15:35; Status DC Fentanyl Citrate 100 mcg STK-MED ONCE .ROUTE; Start 02/10/25 at 15:39; Stop 02/10/25 at 15:40; Status DC Midazolam HCl 2 mg STK-MED ONCE .ROUTE; Start 02/10/25 at 15:40; Stop 02/10/25 at 15:40; Status DC Bivalirudin 250 mg STK-MED ONCE IV; Start 02/10/25 at 16:15; Stop 02/10/25 at 16:15; Status DC Heparin Sodium (Porcine) 7,000 unit ONCE ONCE IV Last administered on 02/11/25at 05:46; Start 02/11/25 at 05:30; Stop 02/11/25 at 05:31; Status DC Heparin Sodium/ Dextrose 250 ml @ 0 mls/hr Q6H IV Last administered on 02/12/25at 11:23; Start 02/11/25 at 06:30; Stop 03/13/25 at 06:29 Clopidogrel Bisulfate 75 mg DAILY PO; Start 02/11/25 at 09:00; Stop 02/11/25 at 07:28; Status DC Insulin Glargine 15 units DAILY08 SQ Last administered on 02/12/25at 08:54; Start 02/11/25 at 08:00; Stop 03/13/25 at 07:59 Furosemide 20 mg DAILY PO Last administered on 02/12/25at 08:48; Start 02/11/25 at 09:00; Stop 03/13/25 at 08:59 Insulin Human Regular 3 unit TIDAC SQ Last administered on 02/12/25at 16:31; Start 02/12/25 at 07:30; Stop 03/14/25 at 07:29 Metoprolol Tartrate 12.5 mg BID PO Last administered on 02/12/25at 20:13; Start 02/12/25 at 09:00; Stop 03/14/25 at 08:59 Potassium Chloride 40 meq BID ONCE PO; Start 02/12/25 at 21:00; Stop 02/12/25 at 21:01 Magnesium Chloride 64 mg Q8H6 ONCE PO; Start 02/12/25 at 14:00; Stop 02/12/25 at 14:01; Status DC Heparin Sodium (Porcine) *calculation based on ACTUAL B... AD PRN IV Last administered on 02/12/25at 20:16; Start 02/12/25 at 21:00; Stop 03/14/25 at 20:59 EUGENE ZARATE MD Feb 12, 2025 20:25
[2025-02-12] MEDS: PoTASSium chloRIDE 20MEQ ER 20 MEQ ERTAB PO ONE (21:00)
[2025-02-13] VITALS (8 sets, daily range): BP systolic 99–115; BP diastolic 59–69; PULSE 63–87; RESP 16–20; TEMP 98.1–98.5; O2SAT 96–97
[2025-02-13 02:36] LABS: NUCLEATED RED BLOOD CELLS 0.0 % (0.0-0.19); PLATELET COUNT (AUTO) 184.0 K/uL (130-400); RED BLOOD CELL COUNT(AUTO) 5.22 MIL/uL (4.50-6.20); RED CELL DISTRIBUTION WIDTH 14.0 % (11.0-15.5); WHITE BLOOD COUNT (AUTO) 10.3 K/uL (4.8-10.8)
[2025-02-13 02:43] LABS: CREATININE 0.9 mg/dL (0.5-1.3); GLOMERULAR FILTR. RATE CALC 89.0 mL/min (>90); GLUCOSE,RANDOM 101.0 mg/dL (70-105); SODIUM SERUM 137.0 mmol/L (136-145); UREA NITROGEN, BLOOD 19.0 mg/dL (7-18)
--- NOTE | 2025-02-13 13:38 | PN ---
[facility] PROGRESS NOTE Date of Service: Feb 13, 2025 Time of Service: 13:37 HISTORY OF PRESENT ILLNESS: This is a 74-year-old male,a Mormon by tenriism whith past medical history of diabetes, hyperlipidemia and MT/coronary artery disease with cardiac stent who presented to the Ed for complaints of midsternal chest pain that is non radiating associated with diaphoresis and this happened when patient was laying down in bed aroun 11:50 pm last night and decided to come to the ED for evaluation.Patient reports pain was persistent.As per patient he had a history of heart attack before and underwent a stent placement.Patient reports the only medication he is taking is Metformin.Patient states he is supposed to be on Aspirin but has stopped taking it.Patient reports he occasionally drinks beer and last drink was yesterday ,had 2 beers he said. Seen and examined patient in the ER awake,alert and coherent,appears comfortable.Patient denies fever,chills,cough,nausea,vomiting,palpitation and shortness of breath. Latest vital signs temperature 98.2, heart rate 75, blood pressure 124/70 saturation 97% on room air. Labs: CBC unremarkable. Chloride 99, BUN 21, random glucose 469 to 439 to 327. Troponin from -. ECG result revealed revealed sinus rhythm heart rate 85 with atrial premature complex anterolateral infarct age indeterminate. Second EKG result revealed sinus rhythm heart rate 73 with left anterior fascicular block. Probable anterolateral infarct age indeterminate. Abnormal T consider ischemia lateral leads.. Chest x-ray result revealed no acute cardiopulmonary process is evident. While in the ER patient received 1500 mL NS bolus, insulin 5 units IV, aspirin 325 mg p.o. and patient was started on heparin drip per ACS protocol. SUBJECTIVE: 02/10/25: Patient was seen and evaluated in ED9. Patient was alert, awake and orientedX3. Patient reports that he doesn't have any chest pain today. Patient reports occasional shortness of breath during nights. Patient denies any shortness of breath, nausea, vomiting, palpitations and lightheadedness. Patient denies any abdominal pain, burning urination. Patient mentions that he only takes metformin 3-4 times per week and has stopped taking aspirin because it wasn't reconciled. Troponin from -. 2D ECHO was done, pending results. Patient is currently on Heparin drip 02/11/25: Patient was evaluated at the bedside this morning. No overnight event. He is AAO x3. patient reported that he does not have chest pain or shortness of breath. He is hemodynamically stable. The labs remarkable for potassium 3.3, magnesium 1.6, HbA1c 13.9, troponin 23524. Left heart catheterization revealed severe triple-vessel disease. Echocardiogram revealed 25% ejection fraction with segmental akinesis. CT surgery was consulted who recommended CABG with Impella left ventricle assist. Family to decide about the procedure. He is currently on heparin drip, aspirin. Endocrinology on board. Rest of the plan as discussed below. 02/12/25: Patient was evaluated at the bedside this morning. No overnight event. He is AAO x3. patient reported that he does not have chest pain or shortness of breath. He is hemodynamically stable. Cardiology is on board and Dr. Blanton have suggested low-dose beta estela like metoprolol tartrate 12.5 mg b.i.d. for his heart failure. Dr Fried still recommends CABG with 5.5 Impella LVAD and the patient agrees to it. We will continue Entresto, Aldactone, Jardiance, aspirin, Lasix as per CT surgeon recommendations. Today his potassium is 3.1 and we would like to be above 4 for CABG patients. So we will replace potassium 02/13/25: Patient was seen and evaluated in room 201. Patient reports feeling better. patient denies any chest pain, shortness of breath. He is continuing on Entresto, Aldactone, Jardiance, aspirin, Lasix as per CT surgeon recommendations.Patients Potassium today is 3.7, will continue replacing potassium. Patients was present along with the patient, she has a few question about the CABG procedure which she wanted to ask Dr. Alexis. REVIEW OF SYSTEMS CONSTITUTIONAL: Denies fevers, chills, or night sweats. No unintentional weig ht loss reported. NEUROLOGICAL: Denies headache, amaurosis fugax, motor weakness, sensory deficit, vertigo/spinning sensation, gait abnormalities, or tremors. ENT: No hearing loss, otalgia, otorrhea, rhinitis, rhinorrhea, hoarseness, or sore throat. CARDIOVASCULAR: Denies chest pain, dyspnea on exertion, orthopnea, paroxysmal nocturnal dyspnea, palpitations, life-threatening arrhythmias, claudication. PULMONARY: Denies any shortness of breath, cough, phlegm/sputum, hemoptysis, pleuritic chest pain. SLEEP: Denies morning headaches, daytime somnolence or napping. Denies difficulty falling asleep, staying asleep, waking from sleep. Denies knowledge of snoring. GASTROINTESTINAL: Denies any type of dysphagia to either liquids or solids. Denies nausea, vomiting, pyrosis, early satiety, abdominal pain, diarrhea, constipation, or changes in stool consistency or caliber. Denies coffee-ground emesis, hematemesis, hematochezia, or melanotic stools. GENITOURINARY: Denies frequency, urgency, nocturia, hematuria or incontinence (Storage/Irritative symptoms.) Low urinary stream, straining to void, urinary intermittency or hesitancy, splitting of the voiding stream, terminal dribbling. ENDOCRINOLOGIC: Denies polyuria, polydipsia, polyphagia or heat/cold intolerances. HEMATOLOGIC: Denies thrombophilia/previous clots, or coagulopathy/bleeding disorders. ONCOLOGIC: Denies personal history of malignancy. DERMATOLOGIC: Denies rashes or pruritus. PSYCHIATRIC: Denies any suicidal or homicidal ideation. Denies hallucinations. PHYSICAL EXAM GENERAL APPEARANCE: The patient is awake, alert, and oriented, in no acute cardiopulmonary distress. NEUROLOGICAL: Cranial nerves II-XII grossly intact. Motor is 5/5 in bilateral upper and lower extremities proximal to distal. No sensory deficits. HEENT: Face is symmetric. Pupils are equal and reactive. Extraocular movements are intact. NECK: Supple. No JVD. No thyromegaly. No submental, submandibular, pre- /postauricular, occipital or supraclavicular lymphadenopathy. CHEST: Normal chest expansion. No Telemetry. LUNGS: Absence of any rales, rhonchi or any wheezing. CARDIOVASCULAR: Regular. S1 and S2 normal. No appreciable rubs, murmurs or gallops. ABDOMEN: Soft, nontender, and nondistended. There is no rebound, voluntary guarding, or rigidity. : Deferred. No De Jesus. EXTREMITIES: Non-edematous and not cyanotic. No clubbing. Good capillary refill. SKIN: No skin breakdown. Vital Signs (last 8hr) Date Time Temp Pulse Resp B/P (MAP) Pulse Ox O2 Delivery O2 Flow Rate FiO2 11/17/25 11:00 98.2 66 20 99/59 94 Room Air 02/13/25 07:00 98.2 68 16 112/66 95 Room Air LABS: Laboratory: Test 02/13/25 10:55 02/13/25 09:04 02/13/25 02:22 02/12/25 10:07 Range/Units Whole Blood Glucose 161 #H 70-110 MG/DL Bedside Glucose Comment Notified Nurse Activated Partial Thromboplast Time 71.4 H 26.3-35.5 SEC White Blood Count 10.3 4.8-10.8 K/uL Red Blood Count 5.22 4.50-6.20 MIL/uL Hemoglobin 15.5 14.0-18.0 g/dL Hematocrit 45.1 42-54 % Mean Corpuscular Volume 86.4 79-99 fL Mean Corpuscular Hemoglobin 29.7 27.0-33.0 pg Mean Corpuscular Hemoglobin Concent 34.4 32.0-36.0 g/dL Red Cell Distribution Width 14.0 11.0-15.5 % Platelet Count 184 130-400 K/uL Mean Platelet Volume 11.2 H 7.5-10.5 fL Nucleated Red Blood Cells 0.0 0.0-0.19 % Sodium Level 137 136-145 mmol/L Potassium Level 3.7 3.5-5.1 mmol/L Chloride Level 102 101-111 mmol/L Carbon Dioxide Level 26 21-32 mmol/L Blood Urea Nitrogen 19 H 7-18 mg/dL Creatinine 0.9 0.5-1.3 mg/dL Glomerular Filtration Rate Calc 89 >90 mL/min Random Glucose 101 70-105 mg/dL Total Calcium 8.6 8.5-10.1 mg/dL Magnesium Level 2.10 1.80-2.40 mg/dL Prothrombin Time 11.2 9.6-11.6 SEC Prothromb Time International Ratio 1.06 0.85-1.15 Test 02/12/25 03:11 02/11/25 19:48 Range/Units Immature Granulocyte % (Auto) 0.5 0-1 % Neutrophils (%) (Auto) 59.6 40.0-77.0 % Lymphocytes (%) (Auto) 26.8 21.0-51.0 % Monocytes (%) (Auto) 8.5 3.0-13.0 % Eosinophils (%) (Auto) 3.7 0.0-8.0 % Basophils (%) (Auto) 0.9 0.0-5.0 % Neutrophils # (Auto) 5.9 1.8-7.7 K/uL Lymphocytes # (Auto) 2.7 1.0-4.8 K/uL Monocytes # (Auto) 0.8 0.1-1.0 K/uL Eosinophils # (Auto) 0.37 0.00-0.70 K/uL Basophils # (Auto) 0.09 0.00-0.20 K/uL Absolute Immature Granulocyte (auto 0.05 0-1 K/uL Troponin I High Sensitivity 7546 *H 4-75 ng/L Current Medications Medications (Trade) Dose Ordered Sig/Carol Route PRN Reason Start Time Stop Time Status Last Admin Dose Admin Acetaminophen (TYLenol 325MG TAB) 650 mg Q4H PRN PO MILD PAIN (1-3) 02/10/25 05:00 03/12/25 04:59 Acetaminophen (TYLenol 325MG TAB) 650 mg Q6H PRN PO TEMPERATURE GREATER THAN 101.5 02/10/25 05:00 03/12/25 04:59 02/12/25 17:13 650 MG Aspirin (Aspirin 325mg Tab) 325 mg ONCE PO 02/10/25 14:30 02/10/25 17:22 DC 02/10/25 14:32 325 MG Aspirin (Aspirin 81mg Ec Tab) 81 mg DAILY PO 02/10/25 09:00 03/12/25 08:59 02/13/25 10:52 81 MG Clopidogrel Bisulfate (plaVIX 300MG TAB) 600 mg ONCE PO 02/10/25 14:00 02/10/25 17:22 DC 02/10/25 14:19 600 MG Clopidogrel Bisulfate (plaVIX 75MG) 75 mg DAILY PO 02/11/25 09:00 02/11/25 07:28 DC Dextrose (D50w) 50 ml AD PRN IV HYPOGLYCEMIA PROTOCOL 02/10/25 05:00 03/12/25 04:59 Empaglifozin (Jardiance 10mg) 10 mg DAILY PO 02/10/25 14:30 03/12/25 14:29 02/13/25 10:52 10 MG Famotidine (Pepcid 20mg Tab) 20 mg DAILY PO 02/10/25 09:00 03/12/25 08:59 02/13/25 10:53 20 MG Furosemide (LASix 20MG TAB) 20 mg DAILY PO 02/11/25 09:00 03/13/25 08:59 02/13/25 10:52 20 MG Furosemide (LASix 20MG VIAL) 20 mg ONCE IV 02/10/25 17:00 02/10/25 21:00 DC 02/10/25 17:00 20 MG Furosemide (LASix 20MG VIAL) 20 mg ONCE IV 02/11/25 09:00 02/11/25 07:43 DC Glucagon (Glucagon 1mg Kit) 1 mg AD PRN IM HYPOGLYCEMIA PROTOCOL 02/10/25 05:00 03/12/25 04:59 Heparin Sodium (Porcine) (HEParin 5,000 UNIT VIAL) *calculation based on ACTUAL B... AD PRN IV HEPARIN PROTOCOL 02/12/25 21:00 03/14/25 20:59 02/12/25 20:16 4,000 UNIT Heparin Sodium/ Dextrose 250 ml @ 0 mls/hr PROTOCOL IV 02/10/25 03:00 02/10/25 17:22 DC 02/10/25 03:00 16.2 MLS/HR Heparin Sodium/ Dextrose 250 ml @ 0 mls/hr Q6H IV 02/11/25 06:30 03/13/25 06:29 02/13/25 13:01 9 MLS/HR Insulin Glargine (LANtus 100 UNITS/ML 10 ML VIAL) 12 units DAILY08 SQ 02/13/25 08:00 03/15/25 07:59 02/13/25 10:51 12 UNITS Insulin Glargine (LANtus 100 UNITS/ML 10 ML VIAL) 15 units DAILY08 SQ 02/11/25 08:00 02/13/25 05:24 DC 02/12/25 08:54 15 UNITS Insulin Human Regular (humuLIN R 100 UNIT/ML 3ML) 3 unit TIDAC SQ 02/12/25 07:30 03/14/25 07:29 02/12/25 16:31 3 UNIT Insulin Human Regular (humuLIN R 100 UNIT/ML 3ML) INSULIN SLIDING SCAL... Q4H SQ 02/10/25 05:00 02/10/25 11:10 DC 02/10/25 09:15 6 UNIT Insulin Human Regular (humuLIN R 100 UNIT/ML 3ML) INSULIN SLIDING SCAL... Q6H6 SQ 02/10/25 12:00 03/12/25 04:59 02/11/25 17:29 2 UNIT Magnesium Sulfate 50 ml @ 0 mls/hr PROTOCOL PRN IV OTHER [SEE ORDER COMMENTS] 02/10/25 05:00 03/12/25 04:59 02/12/25 07:13 25 MLS/HR Metoprolol Tartrate (loprESSOR) 12.5 mg BID PO 02/12/25 09:00 03/14/25 08:59 02/13/25 10:56 12.5 MG Nitroglycerin (Nitrostat) 0.4 mg PROTOCOL PRN SL CHEST PAIN 02/10/25 05:00 03/12/25 04:59 Ondansetron HCl (zoFRAN 4MG INJ) 4 mg Q6H PRN IV NAUSEA/VOMITING 02/10/25 05:00 03/12/25 04:59 Potassium Chloride 100 ml @ 100 mls/hr AD PRN IV POTASSIUM PROTOCOL 02/10/25 05:00 03/12/25 04:59 Potassium Chloride (K-Dur/Klor-Con 20meq) 20 meq AD PRN PO POTASSIUM PROTOCOL 02/10/25 05:00 03/12/25 04:59 02/13/25 05:45 20 MEQ Potassium Chloride (KCl 10% Elixir 20meq/15ml) 20 meq AD PRN PO POTASSIUM PROTOCOL 02/10/25 05:00 03/12/25 04:59 Sacubitril/ Valsartan (Entresto 24 Mg-26 Mg Tablet) 0.5 each BID PO 02/10/25 21:00 03/12/25 20:59 02/13/25 10:53 0.5 EACH Sodium Chloride 1,000 ml @ 100 mls/hr Q10H IV 02/10/25 05:00 02/10/25 17:22 DC 02/10/25 14:20 100 MLS/HR Spironolactone (Aldactone 25mg) 25 mg DAILY PO 02/10/25 14:30 03/12/25 14:29 02/13/25 10:52 25 MG DIAGNOSTICS / RADIOLOGY: [facility] [address] [place] [address] IMAGING REPORT Signed PATIENT: EMMY GRACE MR#: [id number] : 1950 SEX: M AGE: 74 LOCATION: 2AH ORDER 7 STATUS: ADM IN REPORT#: [id number] SERVICE 5 REASON: CHF ORDERING PHYSICIAN: ART FRIED MD PROCEDURE: CXR1VW - CHEST 1VW STUDY: X-RAY OF THE CHEST, 1 VIEW HISTORY: Congestive heart failure. TECHNIQUE: A single frontal view of the chest is submitted for interpretation. COMPARISON: Chest radiograph from 02/10/2025 at 01:02 EST. FINDINGS: Pulmonary heck: Improved aeration of both lungs compared with the prior study. Mild prominence of the pulmonary vascular markings is present, compatible with mild vascular congestion. No focal consolidation or overt pulmonary edema is identified. Cardiac silhouette: Borderline cardiomegaly, stable in size and contour compared with the prior examination. Mediastinum and renzo: Mediastinal contours are within normal limits. Hilar vascular structures are mildly prominent in keeping with vascular congestion. Osseous structures: Visualized ribs, clavicles, and thoracic spine show no acute osseous abnormality. Miscellaneous: No sizable pleural effusion or pneumothorax is identified. Costophrenic angles are clear. No free subdiaphragmatic air is seen. IMPRESSION: * Mild pulmonary vascular congestion with improved lung aeration compared with the chest radiograph from 02/10/2025 at 01:02 EST; no overt pulmonary edema. * Stable borderline cardiomegaly. /[place] DICTATED BY: PAOLO LYNN MD DATE: 02/12/2540 ELECTRONICALLY SIGNED BY: PAOLO LYNN MD DATE: 02/12/2540 ASSESSMENT: Chest pain rule out ACS: NSTEMI POA Hyperglycemia secondary to uncontrolled diabetes POA Hyperlipidemia POA Medication noncompliance, POA Obesity POA MT/Coronary artery disease with cardiac stent POA PLAN: NSTEMI POA: * EKG was done which revealed sinus rhythm heart rate 85 with atrial premature complex anterolateral infarct age indeterminate. Second EKG result revealed sinus rhythm heart rate 73 with left anterior fascicular block. Probable anterolateral infarct age indeterminate. Abnormal T consider ischemia lateral leads. * PERC score was one, Wells score was zero. Very low suspicion for Pulmonary Embolism. * Chest x-ray was done, results show no acute cardiopulmonary process * 2-D ECHO with ejection fraction 25% with segmental akinesis (apical, apical lateral, anteroapical), LDL 89, BNP 488 * Troponin trends 21>174>46763>8340>7546 * Left heart catheterization revealed severe three-vessel CAD with occluded mid LAD, 90% proximal left circumflex, 95% distal RCA, and 90% ostial PDA. * As per CT surgeon recommendations patient was started on Entresto 0.5 each, Aldactone 25mg, Jardiance 10mg, Lasix 20mg. * CT surgery was consulted who recommended CABG with Impella left ventricle assist support. The patient with the family to decide. * on Heparin drip and aspirin 81 mg p.o. daily Hyperglycemia secondary to uncontrolled diabetes POA: * HbA1c 13.9, blood glucose 181 * Following the Endocrinology recommendations. He is on Lantus 15 units, low- dose sliding scale insulin and Jardiance 10 mg * We will monitor blood glucose. Hypokalemia Hypomagnesemia Potassium 3.1, magnesium 1.6 We will replete the electrolytes and monitor We want potassium to be minimum of 4-4.5 for CABG patients We will start 2 doses of potassium 40 mEq per mL once and recheck potassium levels after 4 hours. We will start Slow-Mag oral t.i.d. once and recheck magnesium levels tomorrow Supportive measures * GI prophylaxis with Famotidine * DVT prophylaxis with SCD's. Already on Heparin. ATTESTATION BY PHYSICIAN I have seen and examined the patient. I reviewed the documentation, medical decision making, and treatment plan as noted by the resident physician above. I agree with the findings and plan of care. DIANNE STEELE MD, SHAJI MD Feb 13, 2025 13:38
[2025-02-13 15:15] LABS: INR 1.03 (0.85-1.15)
--- NOTE | 2025-02-13 18:54 | PN ---
[facility] CARDIOLOGY PROGRESS NOTE Date Patient Seen: Feb 13, 2025 Time of Visit: 18:48 Interval History: [pending CABG ] Physical Examination: GENERAL: [No acute distress.] HEAD: [Normal with no signs of head trauma.] EYES: [PERRLA, EOMI, conjunctiva and sclera normal.] ENT: [Hearing grossly intact, normal oropharynx.] NECK: [Supple without JVD. There is no tenderness, lymphadenopathy, or masses. No thyromegaly. Normal carotid upstrokes without bruits.] LUNGS: [Clear breath sounds bilaterally. There are right basilar rales one third of the way up the chest. No wheezes, or rhonchi.] HEART: [Normal rate and rhythm. Normal S1 and S2 without mumurs, gallop or rub.] VASC: [Peripheral pulses +2 bilaterally.] ABD: [Bowel sounds normal, soft, nontender, no masses, no organomegaly. No audible bruits.] : [Not examined] LYMPH: [No lymphadenopathy noted.] EXT: [No clubbing, cyanosis or edema.] SKIN: [No rashes or lesions noted.] NEURO: [Awake, alert, and oriented x3. No focal sensory or strength deficits noted.] Laboratory: [ ] Hematology Labs: Test 02/13/25 02:22 02/12/25 03:11 Range/Units White Blood Count 10.3 4.8-10.8 K/uL Red Blood Count 5.22 4.50-6.20 MIL/uL Hemoglobin 15.5 14.0-18.0 g/dL Hematocrit 45.1 42-54 % Mean Corpuscular Volume 86.4 79-99 fL Mean Corpuscular Hemoglobin 29.7 27.0-33.0 pg Mean Corpuscular Hemoglobin Concent 34.4 32.0-36.0 g/dL Red Cell Distribution Width 14.0 11.0-15.5 % Platelet Count 184 130-400 K/uL Mean Platelet Volume 11.2 H 7.5-10.5 fL Nucleated Red Blood Cells 0.0 0.0-0.19 % Immature Granulocyte % (Auto) 0.5 0-1 % Neutrophils (%) (Auto) 59.6 40.0-77.0 % Lymphocytes (%) (Auto) 26.8 21.0-51.0 % Monocytes (%) (Auto) 8.5 3.0-13.0 % Eosinophils (%) (Auto) 3.7 0.0-8.0 % Basophils (%) (Auto) 0.9 0.0-5.0 % Neutrophils # (Auto) 5.9 1.8-7.7 K/uL Lymphocytes # (Auto) 2.7 1.0-4.8 K/uL Monocytes # (Auto) 0.8 0.1-1.0 K/uL Eosinophils # (Auto) 0.37 0.00-0.70 K/uL Basophils # (Auto) 0.09 0.00-0.20 K/uL Absolute Immature Granulocyte (auto 0.05 0-1 K/uL Chemistry Labs: Test 02/13/25 16:06 02/13/25 02:22 02/11/25 19:48 Range/Units Whole Blood Glucose 160 H 70-110 MG/DL Bedside Glucose Comment Notified Nurse Sodium Level 137 136-145 mmol/L Potassium Level 3.7 3.5-5.1 mmol/L Chloride Level 102 101-111 mmol/L Carbon Dioxide Level 26 21-32 mmol/L Blood Urea Nitrogen 19 H 7-18 mg/dL Creatinine 0.9 0.5-1.3 mg/dL Glomerular Filtration Rate Calc 89 >90 mL/min Random Glucose 101 70-105 mg/dL Total Calcium 8.6 8.5-10.1 mg/dL Magnesium Level 2.10 1.80-2.40 mg/dL Troponin I High Sensitivity 7546 *H 4-75 ng/L Coagulation Labs: Test 02/13/25 14:51 Range/Units Prothrombin Time 10.9 9.6-11.6 SEC Prothromb Time International Ratio 1.03 0.85-1.15 Activated Partial Thromboplast Time 52.4 #H 26.3-35.5 SEC Diagnostics / Radiology: [Copy/Paste Echos/Imaging Report here] Impression and Plan: [ 1. Non ST-elevation myocardial infarction 2. Remote myocardial infarction status post stenting of the mid LAD and distal LAD February 2016 3. Multivessel CAD with ejection fraction of 20% per for Islam 5. Diabetes mellitus type 2 6. Dyslipidemia 7. Hypertension 8. 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 History of beta estela intolerance due to erectile dysfunction #NSTEMI with HFrEEFF 20%% due to ICM - The patient is considered a high-risk patient for bypass surgery. He has been offered bypass with Impella 5.5 support -Trop 14217 -continue aspirin, metoprolol, Aldactone, Jardiance, Entresto, and Lasix ] COREEN ROBERTO MD Feb 13, 2025 18:54
--- NOTE | 2025-02-13 20:49 | PN ---
Endocrinology progress note DOS: 02/13/25 subjective: glucose are improving. Home diabetic regimen: metformin 500 mg bid, Hba1c 13.9% REVIEW OF SYSTEMS CONSTITUTIONAL: Denies fevers, chills, or night sweats. No unintentional weight loss reported. NEUROLOGICAL: Denies headache, amaurosis fugax, motor weakness, sensory deficit, vertigo/spinning sensation, gait abnormalities, or tremors. ENT: No hearing loss, otalgia, otorrhea, rhinitis, rhinorrhea, hoarseness, or sore throat. CARDIOVASCULAR: Deniesdyspnea on exertion, orthopnea, paroxysmal nocturnal dyspnea, palpitations, life-threatening arrhythmias, claudication. PULMONARY: Denies any shortness of breath, cough, phlegm/sputum, hemoptysis, pleuritic chest pain. SLEEP: Denies morning headaches, daytime somnolence or napping. Denies difficulty falling asleep, staying asleep, waking from sleep. Denies knowledge of snoring. GASTROINTESTINAL: Denies any type of dysphagia to either liquids or solids. Denies nausea, vomiting, pyrosis, early satiety, abdominal pain, diarrhea, constipation, or changes in stool consistency or caliber. Denies coffee-ground emesis, hematemesis, hematochezia, or melanotic stools. GENITOURINARY: Denies frequency, urgency, nocturia, hematuria or incontinence (Storage/Irritative symptoms.) Low urinary stream, straining to void, urinary intermittency or hesitancy, splitting of the voiding stream, terminal dribbling. ENDOCRINOLOGIC: Denies polyuria, polydipsia, polyphagia or heat/cold intolerances. HEMATOLOGIC: Denies thrombophilia/previous clots, or coagulopathy/bleeding disorders. ONCOLOGIC: Denies personal history of malignancy. DERMATOLOGIC: Denies rashes or pruritus. PSYCHIATRIC: Denies any suicidal or homicidal ideation. Denies hallucinations. PAST MEDICAL HISTORY: [ Diabetes, hyperlipidemia, DC/coronary artery disease ] PAST SURGICAL HISTORY: [ Cardiac stent, cholecystectomy and left inguinal hernia repair ] PAST SOCIAL HISTORY: [ Patient lives with . Patient admits he drinks two beer yesterday. Patient reports he occasional drinks alcohol denies cigarette and recreational drug use. ] FAMILY HISTORY: [ Diabetes, cardiovascular disease, asthma and cancer ] Coded Allergies: No Known Drug Allergies (Unverified Allergy, Unknown, 08/31/15) ASSESSMENT: Hyperglycemia secondary to uncontrolled diabetes POA Home diabetic regimen: metformin 500 mg bid, Hba1c 13.9% glucose is uncontrolled at home and glucose is high, so insulin adjusted. Chest pain rule out ACS: NSTEMI POA triple vessel disease Hyperlipidemia POA Obesity POA DC/Coronary artery disease with cardiac stent POA PLAN: decrease Lantus to 12 units daily due to low normal glucose and adjust for fasting glucose. continue Regular insulin 3 units three times before meals and adjust for post- prandial glucose. Continue medium dose sliding scale insulin. Monitor glucose q x 6 hourly. Continue carb consistent diet. Keep glucose less than 180 mg/dl. Patient will need insulin at discharge. Vitals/Labs Vital Signs Date Time Temp Pulse Resp B/P (MAP) Pulse Ox O2 Delivery O2 Flow Rate FiO2 02/13/25 16:00 98.4 72 20 110/69 99 Room Air 02/13/25 08:00 0 21 Laboratory Tests 02/13/25 02:22 Medications Current Medications Sodium Chloride 1,000 ml @ 0 mls/hr ONCE ONCE IV; Start 02/10/25 at 01:00; Stop 02/10/25 at 00:46; Status DC Sodium Chloride 500 ml @ 0 mls/hr ONCE ONCE IV Last administered on 02/10/25at 00:53; Start 02/10/25 at 01:00; Stop 02/10/25 at 01:01; Status DC Insulin Human Regular 5 unit ONCE ONCE IV Last administered on 02/10/25at 01:30; Start 02/10/25 at 01:30; Stop 02/10/25 at 01:31; Status DC Aspirin 325 mg ONCE ONCE PO Last administered on 02/10/25at 02:32; Start 02/10/25 at 02:30; Stop 02/10/25 at 02:31; Status DC Heparin Sodium/ Dextrose 250 ml @ 0 mls/hr PROTOCOL IV Last administered on 02/10/25at 03:00; Start 02/10/25 at 03:00; Stop 02/10/25 at 17:22; Status DC Heparin Sodium (Porcine) 7,000 unit ONCE ONCE SQ Last administered on 02/10/25at 02:55; Start 02/10/25 at 03:00; Stop 02/10/25 at 03:01; Status DC Acetaminophen 650 mg Q6H PRN PO Last administered on 02/12/25at 17:13; Start 02/10/25 at 05:00; Stop 03/12/25 at 04:59 Acetaminophen 650 mg Q4H PRN PO; Start 02/10/25 at 05:00; Stop 03/12/25 at 04:59 Ondansetron HCl 4 mg Q6H PRN IV; Start 02/10/25 at 05:00; Stop 03/12/25 at 04:59 Nitroglycerin 0.4 mg PROTOCOL PRN SL; Start 02/10/25 at 05:00; Stop 03/12/25 at 04:59 Famotidine 20 mg DAILY PO Last administered on 02/13/25at 10:53; Start 02/10/25 at 09:00; Stop 03/12/25 at 08:59 Sodium Chloride 1,000 ml @ 100 mls/hr Q10H IV Last administered on 02/10/25at 14:20; Start 02/10/25 at 05:00; Stop 02/10/25 at 17:22; Status DC Insulin Human Regular INSULIN SLIDING SCAL... Q4H SQ Last administered on 02/10/25at 09:15; Start 02/10/25 at 05:00; Stop 02/10/25 at 11:10; Status DC Dextrose 50 ml AD PRN IV; Start 02/10/25 at 05:00; Stop 03/12/25 at 04:59 Glucagon 1 mg AD PRN IM; Start 02/10/25 at 05:00; Stop 03/12/25 at 04:59 Magnesium Sulfate 50 ml @ 0 mls/hr PROTOCOL PRN IV Last administered on 02/12/25at 07:13; Start 02/10/25 at 05:00; Stop 03/12/25 at 04:59 Potassium Chloride 100 ml @ 100 mls/hr AD PRN IV; Start 02/10/25 at 05:00; Stop 03/12/25 at 04:59 Potassium Chloride 20 meq AD PRN PO; Start 02/10/25 at 05:00; Stop 03/12/25 at 04:59 Potassium Chloride 20 meq AD PRN PO Last administered on 02/13/25at 05:45; Start 02/10/25 at 05:00; Stop 03/12/25 at 04:59 Aspirin 81 mg DAILY PO Last administered on 02/13/25at 10:52; Start 02/10/25 at 09:00; Stop 03/12/25 at 08:59 Insulin Human Regular INSULIN SLIDING SCAL... Q6H6 SQ Last administered on 02/11/25at 17:29; Start 02/10/25 at 12:00; Stop 03/12/25 at 04:59 Clopidogrel Bisulfate 600 mg ONCE PO Last administered on 02/10/25at 14:19; Start 02/10/25 at 14:00; Stop 02/10/25 at 17:22; Status DC Aspirin 325 mg ONCE PO Last administered on 02/10/25at 14:32; Start 02/10/25 at 14:30; Stop 02/10/25 at 17:22; Status DC Sacubitril/ Valsartan 0.5 each BID PO Last administered on 02/13/25at 10:53; Start 02/10/25 at 21:00; Stop 03/12/25 at 20:59 Empaglifozin 10 mg DAILY PO Last administered on 02/13/25at 10:52; Start 02/10/25 at 14:30; Stop 03/12/25 at 14:29 Spironolactone 25 mg DAILY PO Last administered on 02/13/25at 10:52; Start 02/10/25 at 14:30; Stop 03/12/25 at 14:29 Furosemide 20 mg ONCE IV Last administered on 02/10/25at 17:00; Start 02/10/25 at 17:00; Stop 02/10/25 at 21:00; Status DC Furosemide 20 mg ONCE IV; Start 02/11/25 at 09:00; Stop 02/11/25 at 07:43; Status DC Lidocaine HCl 20 ml STK-MED ONCE .ROUTE; Start 02/10/25 at 15:22; Stop 02/10/25 at 15:23; Status DC Iohexol 35,000 mg STK-MED ONCE IV; Start 02/10/25 at 15:22; Stop 02/10/25 at 15:23; Status DC Iohexol 50 ml STK-MED ONCE IV; Start 02/10/25 at 15:22; Stop 02/10/25 at 15:23; Status DC Heparin Sodium (Porcine) 10,000 unit STK-MED ONCE .ROUTE; Start 02/10/25 at 15:23; Stop 02/10/25 at 15:23; Status DC Heparin Sodium/ Sodium Chloride 1,000 ml @ As Directed STK-MED ONCE IV; Start 02/10/25 at 15:23; Stop 02/10/25 at 15:23; Status DC Nitroglycerin 50 mg STK-MED ONCE .ROUTE; Start 02/10/25 at 15:23; Stop 02/10/25 at 15:23; Status DC Heparin Sodium/ Sodium Chloride 500 ml @ As Directed STK-MED ONCE IV; Start 02/10/25 at 15:35; Stop 02/10/25 at 15:35; Status DC Fentanyl Citrate 100 mcg STK-MED ONCE .ROUTE; Start 02/10/25 at 15:39; Stop 02/10/25 at 15:40; Status DC Midazolam HCl 2 mg STK-MED ONCE .ROUTE; Start 02/10/25 at 15:40; Stop 02/10/25 at 15:40; Status DC Bivalirudin 250 mg STK-MED ONCE IV; Start 02/10/25 at 16:15; Stop 02/10/25 at 16:15; Status DC Heparin Sodium (Porcine) 7,000 unit ONCE ONCE IV Last administered on 02/11/25at 05:46; Start 02/11/25 at 05:30; Stop 02/11/25 at 05:31; Status DC Heparin Sodium/ Dextrose 250 ml @ 0 mls/hr Q6H IV Last administered on 02/13/25at 13:01; Start 02/11/25 at 06:30; Stop 03/13/25 at 06:29 Clopidogrel Bisulfate 75 mg DAILY PO; Start 02/11/25 at 09:00; Stop 02/11/25 at 07:28; Status DC Insulin Glargine 15 units DAILY08 SQ Last administered on 02/12/25at 08:54; Start 02/11/25 at 08:00; Stop 02/13/25 at 05:24; Status DC Furosemide 20 mg DAILY PO Last administered on 02/13/25at 10:52; Start 02/11/25 at 09:00; Stop 03/13/25 at 08:59 Insulin Human Regular 3 unit TIDAC SQ Last administered on 02/12/25at 16:31; Start 02/12/25 at 07:30; Stop 03/14/25 at 07:29 Metoprolol Tartrate 12.5 mg BID PO Last administered on 02/13/25at 10:56; Start 02/12/25 at 09:00; Stop 03/14/25 at 08:59 Potassium Chloride 40 meq BID ONCE PO; Start 02/12/25 at 21:00; Stop 02/12/25 at 21:01; Status DC Magnesium Chloride 64 mg Q8H6 ONCE PO; Start 02/12/25 at 14:00; Stop 02/12/25 at 14:01; Status DC Heparin Sodium (Porcine) *calculation based on ACTUAL B... AD PRN IV Last administered on 02/12/25at 20:16; Start 02/12/25 at 21:00; Stop 03/14/25 at 20:59 Insulin Glargine 12 units DAILY08 SQ Last administered on 02/13/25at 10:51; Start 02/13/25 at 08:00; Stop 03/15/25 at 07:59 Cefazolin Sodium 2 gm ONCALL IVP; Start 02/13/25 at 20:00; Stop 02/15/25 at 19:59 EUGENE ZARATE MD Feb 13, 2025 20:49
[2025-02-14] VITALS (48 sets, daily range): BP systolic 77–157; BP diastolic 40–114; PULSE 64–136; RESP 9–22; TEMP 97.8–98.4; O2SAT 96–100
--- NOTE | 2025-02-14 02:20 | CONS ---
REFERRING PHYSICIAN: Dr. Don. CONSULTING PHYSICIAN: Hipolito Alexis MD REASON FOR CONSULTATION: Coronary artery disease. HISTORY OF PRESENT ILLNESS: This patient has a history of coronary artery disease status post non-Q-wave myocardial infarction. 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 He has got obstruction 85% on the right coronary artery system, and prior to the trifurcation, the oblique margins has got 90% obstruction. The patient is referred for surgical revascularization. I had the opportunity to review the films, examine the patient, and go over the medical record. I have discussed with Dr. Don and both agreed. Surgery is indicated and we recommended it. The patient understands that he is at high risk due to the low ejection fraction and the fact that he is [employer]. I have discussed with him the fact that he may need some support to perform the surgery, either cardiopulmonary support, intraaortic balloon pump, and/or Impella. He understands this and he also understands that anticoagulation during or after surgery could get complicated with excess bleeding. Fortunately, the patient has a hemoglobin of 15. I think we will try to proceed without the loss of much blood. He understands the indications for surgery as well as the potential complications of the operation including but not limited to postoperative bleeding, infection, stroke, and/or . He understands this as well as associated morbidity, mortality of the procedure as it relates to his own comorbidities and wished to proceed with surgery. PLAN: We discussed with the patient possibility of him needing some support. We will initiate with an intraaortic balloon pump, and if this is not sufficient, then we will proceed with placement of Impella L5. He also stated that if need to be, he would accept blood or blood products. Plan for surgery tomorrow. TID: [id number] RECEIPT: [id number]
--- NOTE | 2025-02-14 04:28 | EKG ---
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 : 1950 Requested By: FRANKY PACHECO Order Number: [id number] Reading MD: Gerry Smith Measurements Intervals [place] Rate: 67 P: 33 [place]: 172 QRS: -79 QRSD: 90 T: 36 QT: 410 QTc: 433 Interpretive Statements Normal sinus rhythm Left axis deviation Low voltage QRS Possible Anterolateral infarct , age undetermined Compared to ECG 02/11/2025 03:40:20 Left-axis deviation now present Low QRS voltage now present Possible ischemia no longer present Myocardial infarct finding still present Electronically Signed On 02-14-2025 19:22:39 NIGHT TIME BABYSITTER by Gerry Smith Please click the below link to view image of tracing.
[2025-02-14 05:20] LABS: ABG BASE EXCESS -3.0 mmol/L (-2.0-3.0); ABG HCO3 20.0 mmol/L (21.0-28.0); ABG OXYGEN SATURATION 95.8 % (94.0-98.0); ABG PCO2 31 mmHg (35-48); ABG PH 7.423 (7.350-7.450); CARBON MONOXIDE 1.1 % (0.5-1.5); PO2, ARTERIAL BG 78.5 mmHg (83.0-108.0); TEMPERATURE, CELSIUS BG 37.0 CELSIUS (35.5-37.0); VENT MODE, BG RA,21 (ROOM AIR)
[2025-02-14 05:53] LABS: IMMATURE GRANULOCYTE ABSOLUTE 0.04 K/uL (0-1); NUCLEATED RED BLOOD CELLS 0.0 % (0.0-0.19); PLATELET COUNT (AUTO) 223 K/uL (130-400); RED BLOOD CELL COUNT(AUTO) 5.79 MIL/uL (4.50-6.20); RED CELL DISTRIBUTION WIDTH 14.0 % (11.0-15.5); WHITE BLOOD COUNT (AUTO) 10.6 K/uL (4.8-10.8)
[2025-02-14 06:04] LABS: INR 1.03 (0.85-1.15)
[2025-02-14 06:08] LABS: ASPARTATE AMINOTRANSFERASE 30.0 U/L (10-37); CREATININE 1.1 mg/dL (0.5-1.3); GLOMERULAR FILTR. RATE CALC 70.0 mL/min (>90); GLUCOSE,RANDOM 100.0 mg/dL (70-105); LDL DIRECT 107.0 mg/dL (0-99); SODIUM SERUM 136.0 mmol/L (136-145); TOTAL PROTEIN, SERUM 7.8 g/dL (6.0-8.3); UREA NITROGEN, BLOOD 22.0 mg/dL (7-18)
--- NOTE | 2025-02-14 06:50 | NUR ---
Patient taken to the OR for a CABG from room 201.
[2025-02-14] MEDS ORDERED: NITROGLYCERIN 50MG/D5W 250ML 1 BOT ONE (07:00)
[2025-02-14] MEDS ORDERED: NOREPINEPHRIN 8MG/250ML NS 250 ML IV PRN (07:00)
[2025-02-14] MEDS ORDERED: HEParin-NS 1,000 UNIT/500 ML 500 ML IV ONE (07:38)
--- NOTE | 2025-02-14 07:42 | PN ---
[facility] CARDIOLOGY PROGRESS NOTE Date Patient Seen: Feb 14, 2025 Time of Visit: 07:41 Interval History: [pending CABG ] Physical Examination: GENERAL: [No acute distress.] HEAD: [Normal with no signs of head trauma.] EYES: [PERRLA, EOMI, conjunctiva and sclera normal.] ENT: [Hearing grossly intact, normal oropharynx.] NECK: [Supple without JVD. There is no tenderness, lymphadenopathy, or masses. No thyromegaly. Normal carotid upstrokes without bruits.] LUNGS: [Clear breath sounds bilaterally. There are right basilar rales one third of the way up the chest. No wheezes, or rhonchi.] HEART: [Normal rate and rhythm. Normal S1 and S2 without mumurs, gallop or rub.] VASC: [Peripheral pulses +2 bilaterally.] ABD: [Bowel sounds normal, soft, nontender, no masses, no organomegaly. No audible bruits.] : [Not examined] LYMPH: [No lymphadenopathy noted.] EXT: [No clubbing, cyanosis or edema.] SKIN: [No rashes or lesions noted.] NEURO: [Awake, alert, and oriented x3. No focal sensory or strength deficits noted.] Laboratory: [ ] Hematology Labs: Test 02/14/25 05:21 Range/Units White Blood Count 10.6 4.8-10.8 K/uL Red Blood Count 5.79 4.50-6.20 MIL/uL Hemoglobin 17.2 14.0-18.0 g/dL Hematocrit 49.7 42-54 % Mean Corpuscular Volume 85.8 79-99 fL Mean Corpuscular Hemoglobin 29.7 27.0-33.0 pg Mean Corpuscular Hemoglobin Concent 34.6 32.0-36.0 g/dL Red Cell Distribution Width 14.0 11.0-15.5 % Platelet Count 223 130-400 K/uL Mean Platelet Volume 10.9 H 7.5-10.5 fL Immature Granulocyte % (Auto) 0.4 0-1 % Neutrophils (%) (Auto) 56.7 40.0-77.0 % Lymphocytes (%) (Auto) 29.1 21.0-51.0 % Monocytes (%) (Auto) 9.3 3.0-13.0 % Eosinophils (%) (Auto) 3.8 0.0-8.0 % Basophils (%) (Auto) 0.7 0.0-5.0 % Neutrophils # (Auto) 6.0 1.8-7.7 K/uL Lymphocytes # (Auto) 3.1 1.0-4.8 K/uL Monocytes # (Auto) 1.0 0.1-1.0 K/uL Eosinophils # (Auto) 0.40 0.00-0.70 K/uL Basophils # (Auto) 0.07 0.00-0.20 K/uL Absolute Immature Granulocyte (auto 0.04 0-1 K/uL Nucleated Red Blood Cells 0.0 0.0-0.19 % Chemistry Labs: Test 02/14/25 07:09 02/14/25 05:21 02/13/25 16:06 02/13/25 02:22 Range/Units Whole Blood Glucose 82 70-110 MG/DL Sodium Level 136 136-145 mmol/L Potassium Level 4.0 3.5-5.1 mmol/L Chloride Level 98 L 101-111 mmol/L Carbon Dioxide Level 25 21-32 mmol/L Blood Urea Nitrogen 22 H 7-18 mg/dL Creatinine 1.1 0.5-1.3 mg/dL Glomerular Filtration Rate Calc 70 >90 mL/min Random Glucose 100 70-105 mg/dL Total Calcium 9.4 8.5-10.1 mg/dL Total Bilirubin 2.0 H 0.2-1.0 mg/dL Aspartate Amino Transf (AST/SGOT) 30 10-37 U/L Alanine Aminotransferase (ALT/SGPT) 32 12-78 U/L Alkaline Phosphatase 80 50-136 U/L Total Protein 7.8 6.0-8.3 g/dL Albumin 3.8 3.5-5.0 g/dL Triglycerides Level 100 30-200 mg/dL Cholesterol Level 187 # <200 mg/dL LDL Cholesterol 107 H 0-99 mg/dL HDL Cholesterol 63 29-71 mg/dL Bedside Glucose Comment Notified Nurse Magnesium Level 2.10 1.80-2.40 mg/dL Coagulation Labs: Test 02/14/25 05:21 Range/Units Prothrombin Time 10.9 9.6-11.6 SEC Prothromb Time International Ratio 1.03 0.85-1.15 Activated Partial Thromboplast Time 29.7 # 26.3-35.5 SEC Diagnostics / Radiology: [Copy/Paste Echos/Imaging Report here] Impression and Plan: [ 1. Non ST-elevation myocardial infarction 2. Remote myocardial infarction status post stenting of the mid LAD and distal LAD February 2016 3. Multivessel CAD with ejection fraction of 20% per for Sikhism 5. Diabetes mellitus type 2 6. Dyslipidemia 7. Hypertension 8. 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 Judaism 10. History of beta estela intolerance due to erectile dysfunction #NSTEMI with HFrEEFF 20%% due to ICM - The patient is considered a high-risk patient for bypass surgery. He has been offered bypass with IABP and if needed for more support an Impella 5.5 would be placed -Trop 14,217, now has downtrended -continue aspirin, metoprolol, Aldactone, Jardiance, Entresto, and Lasix ] COREEN ROBERTO MD Feb 14, 2025 07:42
[2025-02-14] MEDS ORDERED: MIDAZOLAM HCL 1 MG/ML 2ML VIAL ONE ×2 (08:14→08:20)
[2025-02-14] MEDS ORDERED: NOREPINEPHRINE BITARTRATE 1 MG/1 ML ML IV ONE (08:17)
[2025-02-14] MEDS ORDERED: PROTamine SULFate 10 MG/ML 25ML VIAL IV ONE (08:17)
[2025-02-14] MEDS ORDERED: SODIUM BICARB 50MEQ 50ML VIAL 200 ML ONE ×2 (08:17→10:53)
[2025-02-14] MEDS ORDERED: LIDOCAINE PF 100MG/5ML (2%) SYRINGE 5ML ONE (08:17)
--- NOTE | 2025-02-14 08:55 | HMCIMG ---
CHEST 1VW REASON: preop CABG COMPARISON: Prior study from 02/11/2025 is available. FINDINGS: Single view of the chest was obtained. Lungs are clear. Heart size is normal. There is no pulmonary vascular congestion. Mediastinum and bony thorax appear unremarkable. The study is limited due to poor inspiratory radiograph. The study is unchanged from prior study. IMPRESSION: 1. Normal single view chest x-ray.
[2025-02-14 09:16] LABS: ABG BASE EXCESS -5.2 mmol/L (-2.0-3.0); ABG HCO3 20.4 mmol/L (21.0-28.0); ABG OXYGEN SATURATION 100.0 % (94.0-98.0); ABG PCO2 40 mmHg (35-48); ABG PH 7.325 (7.350-7.450); CARBON MONOXIDE 0.8 % (0.5-1.5); DEVICE COMMENT 1; PO2, ARTERIAL BG 390.3 mmHg (83.0-108.0); TEMPERATURE, CELSIUS BG 37.0 CELSIUS (35.5-37.0)
[2025-02-14] MEDS ORDERED: 0.9%NACL 10ML VIAL IVP PRN (10:00)
[2025-02-14] MEDS: 0.9%NACL 1000ML 1,000 ML IV SCH (10:00)
[2025-02-14] MEDS ORDERED: GLUCAGON 1MG KIT 1 MG ML IM PRN (10:00)
[2025-02-14] MEDS ORDERED: 0.9% NACL 500ML IV.SOLN 500 ML IV SCH (10:00)
[2025-02-14] MEDS ORDERED: NOREPINEPHRINE BITARTRATE 8 MG in DEXTROSE 5%-WATER 250 ML IV PRN (10:00)
[2025-02-14] MEDS ORDERED: DEXTROSE 50%-WATER 50 ML DISP.SYRIN IV PRN (10:00)
[2025-02-14] MEDS ORDERED: MAGNESIUM HYDROXIDE 30 ML/UDCUP PO PRN (10:00)
[2025-02-14] MEDS ORDERED: NITROGLYCERIN 50MG/D5W 250ML 250 BOT IV SCH (10:00)
[2025-02-14] MEDS: PAPAVERINE HCL 30 MG/ML 2ML VIAL ONE (10:10)
[2025-02-14] MEDS ORDERED: COMPOUND IV MISC 1 EACH IVSOLN MISC PRN (10:30)
[2025-02-14] MEDS ORDERED: COMPOUND IV REFRIGERATED 1 EACH IVSOLN MISC PRN (10:30)
[2025-02-14 10:43] LABS: ABG BASE EXCESS -5.1 mmol/L (-2.0-3.0); ABG HCO3 19.4 mmol/L (21.0-28.0); ABG OXYGEN SATURATION 99.8 % (94.0-98.0); ABG PCO2 35 mmHg (35-48); ABG PH 7.363 (7.350-7.450); CARBON MONOXIDE 0.3 % (0.5-1.5); DEVICE COMMENT 3; PO2, ARTERIAL BG 399.3 mmHg (83.0-108.0); TEMPERATURE, CELSIUS BG 37.0 CELSIUS (35.5-37.0)
[2025-02-14] MEDS ORDERED: SODIUM BICARB 50MEQ 50ML VIAL 50 ML ONE (10:52)
--- NOTE | 2025-02-14 11:00 | NUR ---
PT HAVING SURGERY TODAY.
[2025-02-14 12:07] LABS: ABG BASE EXCESS -7.2 mmol/L (-2.0-3.0); ABG HCO3 18.1 mmol/L (21.0-28.0); ABG OXYGEN SATURATION 99.7 % (94.0-98.0); ABG PCO2 36 mmHg (35-48); ABG PH 7.319 (7.350-7.450); CARBON MONOXIDE 0.4 % (0.5-1.5); DEVICE COMMENT 3; PO2, ARTERIAL BG 323.2 mmHg (83.0-108.0); TEMPERATURE, CELSIUS BG 37.0 CELSIUS (35.5-37.0)
[2025-02-14] MEDS ORDERED: SODIUM BICARB 50MEQ 50ML VIAL 100 ML ONE (12:16)
[2025-02-14 12:53] LABS: ABG BASE EXCESS -4.5 mmol/L (-2.0-3.0); ABG HCO3 20.9 mmol/L (21.0-28.0); ABG OXYGEN SATURATION 98.9 % (94.0-98.0); ABG PCO2 40 mmHg (35-48); ABG PH 7.338 (7.350-7.450); CARBON MONOXIDE 0.6 % (0.5-1.5); DEVICE COMMENT A-LINE JEMMA; PO2, ARTERIAL BG 215.7 mmHg (83.0-108.0); TEMPERATURE, CELSIUS BG 37.0 CELSIUS (35.5-37.0)
[2025-02-14 12:58] LABS: NUCLEATED RED BLOOD CELLS 0.0 % (0.0-0.19); PLATELET COUNT (AUTO) 176.0 K/uL (130-400); RED BLOOD CELL COUNT(AUTO) 4.22 MIL/uL (4.50-6.20); RED CELL DISTRIBUTION WIDTH 13.8 % (11.0-15.5); WHITE BLOOD COUNT (AUTO) 21.4 K/uL (4.8-10.8)
--- NOTE | 2025-02-14 13:05 | EKG ---
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
[2025-02-14 13:14] LABS: INR 1.3 (0.85-1.15)
[2025-02-14 13:26] LABS: CREATININE 1.1 mg/dL (0.5-1.3); GLOMERULAR FILTR. RATE CALC 70.0 mL/min (>90); GLUCOSE,RANDOM 153.0 mg/dL (70-105); PHOSPHORUS 5.8 mg/dL (2.5-4.9); SODIUM SERUM 149.0 mmol/L (136-145); UREA NITROGEN, BLOOD 21.0 mg/dL (7-18)
[2025-02-14] MEDS: ASPIRIN 81MG CHEW TAB NG ONE (13:56)
[2025-02-14 13:57] LABS: ABG BASE EXCESS -2.2 mmol/L (-2.0-3.0); ABG HCO3 22.2 mmol/L (21.0-28.0); ABG OXYGEN SATURATION 99.2 % (94.0-98.0); ABG PCO2 37 mmHg (35-48); ABG PH 7.396 (7.350-7.450); CARBON MONOXIDE 0.8 % (0.5-1.5); PO2, ARTERIAL BG 295.2 mmHg (83.0-108.0); TEMPERATURE, CELSIUS BG 37.0 CELSIUS (35.5-37.0); VENT MODE, BG SIMV PS10 (ROOM AIR)
[2025-02-14] MEDS: SODIUM BICARB 50MEQ 50ML VIAL IV PRN (13:57)
[2025-02-14] MEDS: CALCIUM GLUC 1GM 1 GM in 0.9%NACL 50ML 50 ML IV PRN (14:06)
--- NOTE | 2025-02-14 14:06 | HMCIMG ---
EXAM: CR Chest, 2 View. CLINICAL HISTORY: s/p CABG COMPARISON: None provided. Same day FINDINGS: LUNGS: Mild left perihilar atelectasis noted. Endotracheal tube is 5.8 cm from the gabriel. Right IJ sheath is in the SVC. Left-sided chest tube noted PLEURAL SPACES: No pleural effusion or pneumothorax. MEDIASTINUM: The cardiomediastinal silhouette is within normal limits. BONES: No acute osseous abnormality. IMPRESSION: Postsurgical changes with mild left perihilar atelectasis /[facility]
[2025-02-14] MEDS: ALBUMIN (HUMAN) 5% 250 ML IV PRN (14:42)
--- NOTE | 2025-02-14 14:51 | NUR ---
dr. gomez was made aware of patient's low bp and having to go up on the vasopressin, patient was given albumin.
[2025-02-14 15:13] LABS: ABG BASE EXCESS -4.4 mmol/L (-2.0-3.0); ABG HCO3 20.0 mmol/L (21.0-28.0); ABG OXYGEN SATURATION 99.1 % (94.0-98.0); ABG PCO2 35 mmHg (35-48); ABG PH 7.378 (7.350-7.450); CARBON MONOXIDE 0.9 % (0.5-1.5); PO2, ARTERIAL BG 225.7 mmHg (83.0-108.0); TEMPERATURE, CELSIUS BG 37.0 CELSIUS (35.5-37.0); VENT MODE, BG SIMV PS10 (ROOM AIR)
--- NOTE | 2025-02-14 15:15 | NUR ---
dr. gomez was updated again on the patient's abg and and his vs. md was also made aware of the patient;'s CHEST TUBE OUT PUT OF 500 ML IN THE LAST 30 MINUTES, WAITING TO CALL BACK.
[2025-02-14 15:58] LABS: ABG BASE EXCESS -0.2 mmol/L (-2.0-3.0); ABG HCO3 23.9 mmol/L (21.0-28.0); ABG OXYGEN SATURATION 98.1 % (94.0-98.0); ABG PCO2 37 mmHg (35-48); ABG PH 7.426 (7.350-7.450); CARBON MONOXIDE 0.7 % (0.5-1.5); PO2, ARTERIAL BG 123.4 mmHg (83.0-108.0); TEMPERATURE, CELSIUS BG 37.0 CELSIUS (35.5-37.0); VENT MODE, BG SIMV PS10 (ROOM AIR)
--- NOTE | 2025-02-14 16:14 | PN ---
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 whith past medical history of diabetes, hyperlipidemia and MS/coronary artery disease with cardiac stent who presented to the Ed for complaints of midsternal chest pain that is non radiating associated with diaphoresis and this happened when patient was laying down in bed aroun 11:50 pm last night and decided to come to the ED for evaluation.Patient reports pain was persistent.As per patient he had a history of heart attack before and underwent a stent placement.Patient reports the only medication he is taking is Metformin.Patient states he is supposed to be on Aspirin but has stopped taking it.Patient reports he occasionally drinks beer and last drink was yesterday ,had 2 beers he said. Seen and examined patient in the ER awake,alert and coherent,appears comfortable.Patient denies fever,chills,cough,nausea,vomiting,palpitation and shortness of breath. Latest vital signs temperature 98.2, heart rate 75, blood pressure 124/70 saturation 97% on room air. Labs: CBC unremarkable. Chloride 99, BUN 21, random glucose 469 to 439 to 327. Troponin from -. ECG result revealed revealed sinus rhythm heart rate 85 with atrial premature complex anterolateral infarct age indeterminate. Second EKG result revealed sinus rhythm heart rate 73 with left anterior fascicular block. Probable anterolateral infarct age indeterminate. Abnormal T consider ischemia lateral leads.. Chest x-ray result revealed no acute cardiopulmonary process is evident. While in the ER patient received 1500 mL NS bolus, insulin 5 units IV, aspirin 325 mg p.o. and patient was started on heparin drip per ACS protocol. SUBJECTIVE: 02/10/25: Patient was seen and evaluated in ED9. Patient was alert, awake and orientedX3. Patient reports that he doesn't have any chest pain today. Patient reports occasional shortness of breath during nights. Patient denies any shortness of breath, nausea, vomiting, palpitations and lightheadedness. Patient denies any abdominal pain, burning urination. Patient mentions that he only takes metformin 3-4 times per week and has stopped taking aspirin because it wasn't reconciled. Troponin from -. 2D ECHO was done, pending results. Patient is currently on Heparin drip 02/11/25: Patient was evaluated at the bedside this morning. No overnight event. He is AAO x3. patient reported that he does not have chest pain or shortness of breath. He is hemodynamically stable. The labs remarkable for potassium 3.3, magnesium 1.6, HbA1c 13.9, troponin [id number]. Left heart catheterization revealed severe triple-vessel disease. Echocardiogram revealed 25% ejection fraction with segmental akinesis. CT surgery was consulted who recommended CABG with Impella left ventricle assist. Family to decide about the procedure. He is currently on heparin drip, aspirin. Endocrinology on board. Rest of the plan as discussed below. 02/12/25: Patient was evaluated at the bedside this morning. No overnight event. He is AAO x3. patient reported that he does not have chest pain or shortness of breath. He is hemodynamically stable. Cardiology is on board and Dr. Blanton have suggested low-dose beta estela like metoprolol tartrate 12.5 mg b.i.d. for his heart failure. Dr Kaur still recommends CABG with 5.5 Impella LVAD and the patient agrees to it. We will continue Entresto, Aldactone, Jardiance, aspirin, Lasix as per CT surgeon recommendations. Today his potassium is 3.1 and we would like to be above 4 for CABG patients. So we will replace potassium 02/13/25: Patient was seen and evaluated in room 201. Patient reports feeling better. patient denies any chest pain, shortness of breath. He is continuing on Entresto, Aldactone, Jardiance, aspirin, Lasix as per CT surgeon recommendations.Patients Potassium today is 3.7, will continue replacing potassium. Patients was present along with the patient, she has a few question about the CABG procedure which she wanted to ask Dr. Pacheco. 02/14/25. Patient was undergoing CABG procedure today in the morning. REVIEW OF SYSTEMS CONSTITUTIONAL: Denies fevers, chills, or night sweats. No unintentional weight loss reported. NEUROLOGICAL: Denies headache, amaurosis fugax, motor weakness, sensory deficit, vertigo/spinning sensation, gait abnormalities, or tremors. ENT: No hearing loss, otalgia, otorrhea, rhinitis, rhinorrhea, hoarseness, or sore throat. CARDIOVASCULAR: Denies chest pain, dyspnea on exertion, orthopnea, paroxysmal nocturnal dyspnea, palpitations, life-threatening arrhythmias, claudication. PULMONARY: Denies any shortness of breath, cough, phlegm/sputum, hemoptysis, pleuritic chest pain. SLEEP: Denies morning headaches, daytime somnolence or napping. Denies difficulty falling asleep, staying asleep, waking from sleep. Denies knowledge of snoring. GASTROINTESTINAL: Denies any type of dysphagia to either liquids or solids. Denies nausea, vomiting, pyrosis, early satiety, abdominal pain, diarrhea, constipation, or changes in stool consistency or caliber. Denies coffee-ground emesis, hematemesis, hematochezia, or melanotic stools. GENITOURINARY: Denies frequency, urgency, nocturia, hematuria or incontinence (Storage/Irritative symptoms.) Low urinary stream, straining to void, urinary intermittency or hesitancy, splitting of the voiding stream, terminal dribbling. ENDOCRINOLOGIC: Denies polyuria, polydipsia, polyphagia or heat/cold intolerances. HEMATOLOGIC: Denies thrombophilia/previous clots, or coagulopathy/bleeding disorders. ONCOLOGIC: Denies personal history of malignancy. DERMATOLOGIC: Denies rashes or pruritus. PSYCHIATRIC: Denies any suicidal or homicidal ideation. Denies hallucinations. PHYSICAL EXAM GENERAL APPEARANCE: The patient is awake, alert, and oriented, in no acute cardiopulmonary distress. NEUROLOGICAL: Cranial nerves II-XII grossly intact. Motor is 5/5 in bilateral upper and lower extremities proximal to distal. No sensory deficits. HEENT: Face is symmetric. Pupils are equal and reactive. Extraocular movements are intact. NECK: Supple. No JVD. No thyromegaly. No submental, submandibular, pre- /postauricular, occipital or supraclavicular lymphadenopathy. CHEST: Normal chest expansion. No Telemetry. LUNGS: Absence of any rales, rhonchi or any wheezing. CARDIOVASCULAR: Regular. S1 and S2 normal. No appreciable rubs, murmurs or gallops. ABDOMEN: Soft, nontender, and nondistended. There is no rebound, voluntary guarding, or rigidity. : Deferred. No De Jesus. EXTREMITIES: Non-edematous and not cyanotic. No clubbing. Good capillary refill. SKIN: No skin breakdown. Vital Signs (last 8hr) Date Time Temp Pulse Resp B/P (MAP) Pulse Ox O2 Delivery O2 Flow Rate FiO2 02/14/25 15:20 40 02/14/25 14:13 125 70 02/14/25 14:02 70 02/14/25 12:45 110 100 LABS: Laboratory: Test 02/14/25 15:56 02/14/25 13:49 02/14/25 12:52 02/14/25 05:21 Range/Units Blood Gas Specimen Type Arterial Arterial Blood pH 7.426 7.350-7.450 Arterial Blood Partial Pressure CO2 37 35-48 mmHg Arterial Blood Partial Pressure O2 123.4 H 83.0-108.0 mmHg Arterial Blood HCO3 23.9 21.0-28.0 mmol/L Arterial Blood Oxygen Saturation 98.1 H 94.0-98.0 % Arterial Blood Base Excess -0.2 -2.0-3.0 mmol/L Hemoglobin (Blood Gas) 12.8 L 13.5-17.5 g/dL Sodium (Blood Gas) 153 H 136-145 MMOL/L Bedside Potassium (Blood Gas) 3.2 L 3.4-4.5 MMOL/L Bedside Chloride (Blood Gas) 106 98-107 MMOL/L Bedside Glucose (Blood Gas) 149 H 65-95 MG/DL Bedside Ionized Calcium (Blood Gas) 1.06 L 1.15-1.33 MMOL/L Bedside Lactic Acid (Blood Gas) 10.07 *H 0.36-0.75 MMOL/L Blood Gas Temperature 37.0 35.5-37.0 CELSIUS Blood Gas Respiration Rate 8.0 min. Blood Gas Vent Mode SIMV PS10 ROOM AIR FiO2 40.0 % Blood Gas Tidal Volume 650 ml Blood Gas PEEP 5 cm H2O Blood Gas Specimen Comment ALINEGEMMA Whole Blood Glucose 166 #H 70-110 MG/DL White Blood Count 21.4 #H 4.8-10.8 K/uL Red Blood Count 4.22 #L 4.50-6.20 MIL/uL Hemoglobin 12.6 #L 14.0-18.0 g/dL Hematocrit 36.6 #L 42-54 % Mean Corpuscular Volume 86.7 79-99 fL Mean Corpuscular Hemoglobin 29.9 27.0-33.0 pg Mean Corpuscular Hemoglobin Concent 34.4 32.0-36.0 g/dL Red Cell Distribution Width 13.8 11.0-15.5 % Platelet Count 176 130-400 K/uL Mean Platelet Volume 11.4 H 7.5-10.5 fL Nucleated Red Blood Cells 0.0 0.0-0.19 % Prothrombin Time 13.4 #H 9.6-11.6 SEC Prothromb Time International Ratio 1.30 H 0.85-1.15 Activated Partial Thromboplast Time 25.1 L 26.3-35.5 SEC Sodium Level 149 H 136-145 mmol/L Potassium Level 3.3 L 3.5-5.1 mmol/L Chloride Level 107 101-111 mmol/L Carbon Dioxide Level 23 21-32 mmol/L Blood Urea Nitrogen 21 H 7-18 mg/dL Creatinine 1.1 0.5-1.3 mg/dL Glomerular Filtration Rate Calc 70 >90 mL/min Random Glucose 153 #H 70-105 mg/dL Total Calcium 8.5 8.5-10.1 mg/dL Phosphorus Level 5.8 H 2.5-4.9 mg/dL Magnesium Level 1.50 L 1.80-2.40 mg/dL Immature Granulocyte % (Auto) 0.4 0-1 % Neutrophils (%) (Auto) 56.7 40.0-77.0 % Lymphocytes (%) (Auto) 29.1 21.0-51.0 % Monocytes (%) (Auto) 9.3 3.0-13.0 % Eosinophils (%) (Auto) 3.8 0.0-8.0 % Basophils (%) (Auto) 0.7 0.0-5.0 % Neutrophils # (Auto) 6.0 1.8-7.7 K/uL Lymphocytes # (Auto) 3.1 1.0-4.8 K/uL Monocytes # (Auto) 1.0 0.1-1.0 K/uL Eosinophils # (Auto) 0.40 0.00-0.70 K/uL Basophils # (Auto) 0.07 0.00-0.20 K/uL Absolute Immature Granulocyte (auto 0.04 0-1 K/uL Total Bilirubin 2.0 H 0.2-1.0 mg/dL Aspartate Amino Transf (AST/SGOT) 30 10-37 U/L Alanine Aminotransferase (ALT/SGPT) 32 12-78 U/L Alkaline Phosphatase 80 50-136 U/L Total Protein 7.8 6.0-8.3 g/dL Albumin 3.8 3.5-5.0 g/dL Triglycerides Level 100 30-200 mg/dL Cholesterol Level 187 # <200 mg/dL LDL Cholesterol 107 H 0-99 mg/dL HDL Cholesterol 63 29-71 mg/dL Test 02/13/25 16:06 Range/Units Bedside Glucose Comment Notified Nurse Current Medications Medications (Trade) Dose Ordered Sig/Carol Route PRN Reason Start Time Stop Time Status Last Admin Dose Admin Acetaminophen (TYLenol 325MG TAB) 650 mg Q4H PRN PO MILD PAIN (1-3) 02/10/25 05:00 02/14/25 10:05 DC Acetaminophen (TYLenol 325MG TAB) 650 mg Q4H PRN PO Temp >38.3C(AFTER EXTUBATION) 02/14/25 10:00 03/16/25 09:59 Acetaminophen (TYLenol 325MG TAB) 650 mg Q6H PRN PO TEMPERATURE GREATER THAN 101.5 02/10/25 05:00 02/14/25 10:17 DC 02/12/25 17:13 650 MG Acetaminophen (TYLenol 325MG TAB) 650 mg Q6H PRN PO MILD PAIN (1-3) 02/14/25 10:00 03/16/25 09:59 Acetaminophen (TYLenol 650MG SUPPOSITORY) 650 mg Q4H PRN RC Temp >38.3C WHILE INTUBATED 02/14/25 10:00 03/16/25 09:59 Acetaminophen (acetaMINOPHEN 1,000MG/100ML) 1,000 mg Q6H6 IV 02/14/25 14:00 02/15/25 13:59 02/14/25 15:01 1,000 MG Albumin Human 250 ml @ 0 mls/hr AD IV 02/14/25 15:30 02/19/25 15:29 Albumin Human 250 ml @ 0 mls/hr AD PRN IV IF HEMODYNAMICALLY UNSTABLE 02/14/25 10:00 02/14/25 14:42 DC 02/14/25 14:42 500 MLS/HR Aminocaproic Acid 09586 mg/Sodium Chloride 310 ml @ 25 mls/hr AD IV 02/14/25 10:00 02/14/25 10:19 DC Aminocaproic Acid 66029 mg/Sodium Chloride 480 ml @ 0 mls/hr AD PRN IV BLEEDING CONTROL 02/14/25 06:30 03/16/25 06:29 Aminocaproic Acid 25183 mg/Sodium Chloride 480 ml @ 0 mls/hr AD PRN IV BLEEDING CONTROL 02/14/25 07:00 02/14/25 06:51 DC Aspirin (Aspirin 325mg Tab) 325 mg ONCE PO 02/10/25 14:30 02/10/25 17:22 DC 02/10/25 14:32 325 MG Aspirin (Aspirin 81mg Ec Tab) 81 mg DAILY PO 02/10/25 09:00 03/12/25 08:59 02/13/25 10:52 81 MG Atorvastatin Calcium (LIPItor 40MG) 40 mg HS PO 02/14/25 21:00 03/16/25 20:59 Calcium Gluconate 1 gm/Sodium Chloride 60 ml @ 200 mls/hr AD PRN IV HYPOCALCEMIA 02/14/25 10:00 03/16/25 09:59 02/14/25 14:06 200 MLS/HR Cefazolin Sodium (Ancef) 2 gm ONCALL IVP 02/13/25 20:00 02/15/25 19:59 02/14/25 08:50 2 GM Cefazolin Sodium (Ancef) 2 gm Q8H IVPB 02/14/25 15:00 02/15/25 07:01 02/14/25 15:04 2 GM Clopidogrel Bisulfate (plaVIX 300MG TAB) 600 mg ONCE PO 02/10/25 14:00 02/10/25 17:22 DC 02/10/25 14:19 600 MG Clopidogrel Bisulfate (plaVIX 75MG) 75 mg DAILY PO 02/11/25 09:00 02/11/25 07:28 DC Dexmedetomidine/ Sodium Chloride (PRECEdex 400MCG/ 100ML-NS) 400 mcg PROTOCOL IV 02/14/25 10:00 02/15/25 09:59 Dextrose (D50w) 50 ml AD PRN IV HYPOGLYCEMIA PROTOCOL 02/10/25 05:00 02/14/25 10:17 DC Dextrose (D50w) 50 ml AD PRN IV HYPOGLYCEMIA PROTOCOL 02/14/25 10:00 03/16/25 09:59 Docusate Sodium (COLace 100MG CAP) 100 mg BID PO 02/14/25 21:00 03/16/25 20:59 Empaglifozin (Jardiance 10mg) 10 mg DAILY PO 02/10/25 14:30 02/14/25 09:59 DC 02/13/25 10:52 10 MG Enoxaparin Sodium (Lovenox) 30 mg DAILY SQ 02/17/25 09:00 03/19/25 08:59 Epinephrine HCl 10 mg/Sodium Chloride 250 ml @ 0 mls/hr AD PRN IV TITRATE 02/14/25 06:30 03/16/25 06:29 Epinephrine HCl 10 mg/Sodium Chloride 250 ml @ 0 mls/hr AD PRN IV TITRATE 02/14/25 07:00 02/14/25 06:51 DC Epinephrine HCl 10 mg/Sodium Chloride 250 ml @ 0 mls/hr AD PRN IV POST-OP CARDIOVASCULAR ORDERS 02/14/25 10:00 02/14/25 10:14 DC Famotidine (Pepcid 20mg Vial) 20 mg BID IV 02/14/25 21:00 03/16/25 20:59 Famotidine (Pepcid 20mg Tab) 20 mg DAILY PO 02/10/25 09:00 02/14/25 09:59 DC 02/13/25 10:53 20 MG Furosemide (LASix 20MG TAB) 20 mg DAILY PO 02/11/25 09:00 02/14/25 09:59 DC 02/13/25 10:52 20 MG Furosemide (LASix 20MG TAB) 20 mg Q12H PO 02/16/25 09:00 03/18/25 08:59 Furosemide (LASix 20MG VIAL) 20 mg ONCE IV 02/10/25 17:00 02/10/25 21:00 DC 02/10/25 17:00 20 MG Furosemide (LASix 20MG VIAL) 20 mg ONCE IV 02/11/25 09:00 02/11/25 07:43 DC Furosemide (LASix 20MG VIAL) 20 mg Q12H IV 02/15/25 09:00 02/16/25 08:59 Glucagon (Glucagon 1mg Kit) 1 mg AD PRN IM HYPOGLYCEMIA PROTOCOL 02/10/25 05:00 02/14/25 10:17 DC Glucagon (Glucagon 1mg Kit) 1 mg AD PRN IM HYPOGLYCEMIA PROTOCOL 02/14/25 10:00 03/16/25 09:59 Heparin Sodium (Porcine) (HEParin 5,000 UNIT VIAL) *calculation based on ACTUAL B... AD PRN IV HEPARIN PROTOCOL 02/12/25 21:00 02/14/25 09:59 DC 02/12/25 20:16 4,000 UNIT Heparin Sodium/ Dextrose 250 ml @ 0 mls/hr PROTOCOL IV 02/10/25 03:00 02/10/25 17:22 DC 02/10/25 03:00 16.2 MLS/HR Heparin Sodium/ Dextrose 250 ml @ 0 mls/hr Q6H IV 02/11/25 06:30 02/14/25 09:59 DC 02/13/25 13:01 9 MLS/HR Insulin Glargine (LANtus 100 UNITS/ML 10 ML VIAL) 12 units DAILY08 SQ 02/13/25 08:00 02/14/25 09:59 DC 02/13/25 10:51 12 UNITS Insulin Glargine (LANtus 100 UNITS/ML 10 ML VIAL) 15 units DAILY08 SQ 02/11/25 08:00 02/13/25 05:24 DC 02/12/25 08:54 15 UNITS Insulin Human Regular (humuLIN R 100 UNIT/ML 3ML) 3 unit TIDAC SQ 02/12/25 07:30 02/14/25 09:59 DC 02/12/25 16:31 3 UNIT Insulin Human Regular (humuLIN R 100 UNIT/ML 3ML) INSULIN SLIDING SCAL... Q4H SQ 02/10/25 05:00 02/10/25 11:10 DC 02/10/25 09:15 6 UNIT Insulin Human Regular (humuLIN R 100 UNIT/ML 3ML) INSULIN SLIDING SCAL... Q6H6 SQ 02/10/25 12:00 02/14/25 09:59 DC 02/11/25 17:29 2 UNIT Insulin Human Regular 100 unit/ Sodium Chloride 100 ml @ 0 mls/hr AD IV 02/14/25 10:00 02/16/25 09:59 Lactulose (Constulose 20gm/ 30ml Udcup) 20 gm BID PRN PO CONSTIPATION 02/14/25 10:00 03/16/25 09:59 Magnesium Hydroxide (Milk Of Magnesium 30ml) 30 ml DAILY PRN PO CONSTIPATION 02/14/25 10:00 03/16/25 09:59 Magnesium Sulfate 50 ml @ 12.5 mls/hr AD PRN IV MAG LEVEL LESS THAN 2.0 02/14/25 10:00 03/16/25 09:59 Magnesium Sulfate 50 ml @ 0 mls/hr PROTOCOL PRN IV OTHER [SEE ORDER COMMENTS] 02/10/25 05:00 02/14/25 10:17 DC 02/12/25 07:13 25 MLS/HR Metoprolol Tartrate (loprESSOR) 12.5 mg BID PO 02/12/25 09:00 02/14/25 09:59 DC 02/14/25 06:44 12.5 MG Metoprolol Tartrate (loprESSOR) 12.5 mg BID PO 02/16/25 09:00 03/18/25 08:59 Morphine Sulfate (morPHINE 2MG SYG) 0.5 mg Q2H PRN IV MODERATE PAIN (4-6) IF NPO 02/14/25 10:00 02/15/25 09:59 Morphine Sulfate (morPHINE 2MG SYG) 1 mg Q2H PRN IV SEVERE PAIN (7-10) IF NPO 02/14/25 10:30 02/21/25 10:29 02/14/25 14:23 1 MG Nitroglycerin (Nitrostat) 0.4 mg PROTOCOL PRN SL CHEST PAIN 02/10/25 05:00 02/14/25 09:59 DC Nitroglycerin/ Dextrose 0 ml @ 0 mls/hr AD IV 02/14/25 10:00 02/17/25 09:59 Norepinephrine Bitartrate 250 ml @ 0 mls/hr AD PRN IV TITRATE 02/14/25 06:30 03/16/25 06:29 Norepinephrine Bitartrate 250 ml @ 0 mls/hr AD PRN IV TITRATE 02/14/25 07:00 02/14/25 06:51 DC Norepinephrine Bitartrate 8 mg/ Dextrose 250 ml @ 0 mls/hr AD PRN IV POST-OP CARDIOVASCULAR ORDERS 02/14/25 10:00 02/14/25 10:14 DC Ondansetron HCl (zoFRAN 4MG INJ) 4 mg Q6H PRN IV NAUSEA/VOMITING 02/10/25 05:00 02/14/25 10:17 DC Ondansetron HCl (zoFRAN 4MG INJ) 4 mg Q6H PRN IV NAUSEA/VOMITING 02/14/25 10:00 03/16/25 09:59 Potassium Phosphate 250 ml @ 42 mls/hr AD PRN IV LOW PHOS LEVEL 02/14/25 10:00 03/16/25 09:59 Potassium Chloride 100 ml @ 100 mls/hr AD PRN IV POTASSIUM PROTOCOL 02/10/25 05:00 03/12/25 04:59 02/14/25 14:11 100 MLS/HR Potassium Chloride 100 ml @ 100 mls/hr AD PRN IV HYPOKALEMIA 02/14/25 10:00 03/16/25 09:59 Potassium Chloride (K-Dur/Klor-Con 20meq) 20 meq AD PRN PO POTASSIUM PROTOCOL 02/10/25 05:00 03/12/25 04:59 02/13/25 05:45 20 MEQ Potassium Chloride (KCl 10% Elixir 20meq/15ml) 20 meq AD PRN PO POTASSIUM PROTOCOL 02/10/25 05:00 03/12/25 04:59 Propofol 100 ml @ 0 mls/hr AD PRN IV SEDATION 02/14/25 10:00 02/18/25 09:59 Sacubitril/ Valsartan (Entresto 24 Mg-26 Mg Tablet) 0.5 each BID PO 02/10/25 21:00 02/14/25 09:59 DC 02/13/25 21:11 0.5 EACH Sodium Bicarbonate (Sodium Bicarb 50meq 50ml Vial) 50 meq AD PRN IV OTHER[SEE DOSING INSTRUCTIONS] 02/14/25 10:00 02/17/25 09:59 02/14/25 15:32 50 MEQ Sodium Chloride 500 ml @ 0 mls/hr AD IV 02/14/25 10:00 03/16/25 09:59 Sodium Chloride 1,000 ml @ 10 mls/hr ONCE IV 02/14/25 10:00 02/15/25 09:59 Sodium Chloride 1,000 ml @ 100 mls/hr Q10H IV 02/10/25 05:00 02/10/25 17:22 DC 02/10/25 14:20 100 MLS/HR Sodium Chloride (NS Flush 10ml) 10 ml Q8H PRN IVP IV LINE FLUSH 02/14/25 10:00 03/16/25 09:59 Spironolactone (Aldactone 25mg) 25 mg DAILY PO 02/10/25 14:30 02/14/25 09:59 DC 02/13/25 10:52 25 MG Tramadol HCl (UltRAM) 25 mg Q6H PRN PO MODERATE PAIN (4-6) 02/14/25 10:00 02/19/25 09:59 Tramadol HCl (UltRAM) 50 mg Q6H PRN PO SEVERE PAIN (7-10) 02/14/25 10:00 02/19/25 09:59 Vasopressin 40 units/Sodium Chloride 40 ml @ 0 mls/hr PROTOCOL IV 02/14/25 13:00 03/16/25 12:59 DIAGNOSTICS / RADIOLOGY: [place] [address] IMAGING REPORT Signed PATIENT: EMMY GRACE MR#: [id number] : 1950 SEX: M AGE: 74 LOCATION: 2CV ORDER 1007 STATUS: ADM IN REPORT#: [id number] SERVICE 1200 REASON: s/p CABG ORDERING PHYSICIAN: FRANKY PACHECO MD PROCEDURE: CXR1VW - CHEST 1VW EXAM: CR Chest, 2 View. CLINICAL HISTORY: s/p CABG COMPARISON: None provided. Same day FINDINGS: LUNGS: Mild left perihilar atelectasis noted. Endotracheal tube is 5.8 cm from the gabriel. Right IJ sheath is in the SVC. Left-sided chest tube noted PLEURAL SPACES: No pleural effusion or pneumothorax. MEDIASTINUM: The cardiomediastinal silhouette is within normal limits. BONES: No acute osseous abnormality. IMPRESSION: Postsurgical changes with mild left perihilar atelectasis /[place] DICTATED BY: NAYA RUBIO MD DATE: 02/14/251504 ELECTRONICALLY SIGNED BY: NAYA RUBIO MD DATE: 02/14/251504 ASSESSMENT: Chest pain rule out ACS: NSTEMI POA Hyperglycemia secondary to uncontrolled diabetes POA Hyperlipidemia POA Medication noncompliance, POA Obesity POA MS/Coronary artery disease with cardiac stent POA PLAN: NSTEMI POA: * EKG was done which revealed sinus rhythm heart rate 85 with atrial premature complex anterolateral infarct age indeterminate. Second EKG result revealed sinus rhythm heart rate 73 with left anterior fascicular block. Probable anterolateral infarct age indeterminate. Abnormal T consider ischemia lateral leads. * PERC score was one, Wells score was zero. Very low suspicion for Pulmonary Embolism. * Chest x-ray done on 02/14/25 show, postsurgical changes with mild left perihilar atelectasis * 2-D ECHO with ejection fraction 25% with segmental akinesis (apical, apical lateral, anteroapical), LDL 89, BNP 488 * Troponin trends [id number] * Left heart catheterization revealed severe three-vessel CAD with occluded mid LAD, 90% proximal left circumflex, 95% distal RCA, and 90% ostial PDA. * As per CT surgeon recommendations patient was started on Entresto 0.5 each, Aldactone 25mg, Jardiance 10mg, Lasix 20mg. * CT surgery was consulted, Patient underwent CABG with Impella left ventricle assist support on 02/14/25. * On Heparin drip and aspirin 81 mg p.o. daily Hyperglycemia secondary to uncontrolled diabetes POA: * HbA1c 13.9, blood glucose 181 * Following the Endocrinology recommendations. He is on Lantus 15 units, low- dose sliding scale insulin and Jardiance 10 mg * We will monitor blood glucose. Hypokalemia Hypomagnesemia Potassium 3.1, magnesium 1.6 We will replete the electrolytes and monitor We want potassium to be minimum of 4-4.5 for CABG patients Ordered 2 doses of potassium 40 mEq per mL once. We will start Slow-Mag oral t.i.d. once and will keep monitoring mag nesium levels. Supportive measures * GI prophylaxis with Famotidine * DVT prophylaxis with SCD's. Already on Heparin. ATTESTATION BY PHYSICIAN I have seen and examined the patient. I reviewed the documentation, medical decision making, and treatment plan as noted by the resident physician above. I agree with the findings and plan of care. DIANNE STEELE MD, SHAJI MD Feb 14, 2025 16:14
[2025-02-14] MEDS: CALCIUM GLUC 1GM 2 GM in 0.9%NACL 100ML 100 ML IV ONE (16:15)
--- NOTE | 2025-02-14 16:42 | NUR ---
PATIENT'S CT OUTPUT DECREASED - ONLY 50 ML FOR THE LAST HOUR, TARA VALADEZ WAS UPDATED AND HE HELD THE ORDER FOR FACTOR 7 AND K CENTRA, WILL CONTINUE TO MONITOR.
[2025-02-14 17:01] LABS: ABG BASE EXCESS -2.5 mmol/L (-2.0-3.0); ABG HCO3 21.5 mmol/L (21.0-28.0); ABG OXYGEN SATURATION 97.9 % (94.0-98.0); ABG PCO2 35 mmHg (35-48); ABG PH 7.406 (7.350-7.450); CARBON MONOXIDE 0.8 % (0.5-1.5); PO2, ARTERIAL BG 122.5 mmHg (83.0-108.0); TEMPERATURE, CELSIUS BG 37.0 CELSIUS (35.5-37.0); VENT MODE, BG SIMV PS10 (ROOM AIR)
--- NOTE | 2025-02-14 17:25 | NUR ---
PATIENT HAD A RUN OF VTACH, PATIENT'S ELECTROLYTES HAVE BEEN REPLACED- MAG OF 1.5, 2 GMS OF MAG WAS STARTED, PATIENT WAS AWAKE, HAD BEEN PLACED ON CPAP AND THIS HAPPENED 9 VTACH0 LESS THAN 10 MIN OF PLACING THE PATIENT ON CPAP. PLACED BACK ON SIMV MODE.
[2025-02-14] MEDS: MAGNESIUM 2GM PREMIX 50ML 50 ML IV PRN (17:29)
[2025-02-14] MEDS ORDERED: PHARMACY COMMUNICATION MISC SCH (18:00)
[2025-02-14] MEDS: SODIUM BICARB 50MEQ 50ML VIAL 25 MEQ in DEXTROSE 5%-WATER 1,000 ML IV SCH (18:19)
[2025-02-14 18:28] LABS: ABG BASE EXCESS -1.4 mmol/L (-2.0-3.0); ABG HCO3 22.3 mmol/L (21.0-28.0); ABG OXYGEN SATURATION 97.9 % (94.0-98.0); ABG PCO2 34 mmHg (35-48); ABG PH 7.432 (7.350-7.450); CARBON MONOXIDE 0.5 % (0.5-1.5); PO2, ARTERIAL BG 116.2 mmHg (83.0-108.0); TEMPERATURE, CELSIUS BG 37.0 CELSIUS (35.5-37.0); VENT MODE, BG SIMV (ROOM AIR)
--- NOTE | 2025-02-14 18:30 | NUR ---
PATIENT HAS ONLY [address] OUTPUT FOR THE LAST 3 HOURS, WAS AWAKE AND FOLLOWING COMMANDS, NOW PLACED ON CPAP. ELECTROLYTES CONTINUED TO BE REPLACED.
[2025-02-14 19:16] LABS: ABG BASE EXCESS 0.8 mmol/L (-2.0-3.0); ABG HCO3 24.2 mmol/L (21.0-28.0); ABG OXYGEN SATURATION 97.9 % (94.0-98.0); ABG PCO2 35 mmHg (35-48); ABG PH 7.463 (7.350-7.450); CARBON MONOXIDE 0.6 % (0.5-1.5); CPAP, BG 10 cm H2O; PO2, ARTERIAL BG 113.2 mmHg (83.0-108.0); TEMPERATURE, CELSIUS BG 37.0 CELSIUS (35.5-37.0); VENT MODE, BG CPAP (ROOM AIR)
[2025-02-14 20:12] LABS: ABG BASE EXCESS 0.8 mmol/L (-2.0-3.0); ABG HCO3 24.2 mmol/L (21.0-28.0); ABG OXYGEN SATURATION 98.0 % (94.0-98.0); ABG PCO2 35 mmHg (35-48); ABG PH 7.460 (7.350-7.450); CARBON MONOXIDE 0.4 % (0.5-1.5); CPAP, BG 10 cm H2O; PO2, ARTERIAL BG 120.5 mmHg (83.0-108.0); TEMPERATURE, CELSIUS BG 37.0 CELSIUS (35.5-37.0); VENT MODE, BG CPAP (ROOM AIR)
--- NOTE | 2025-02-14 20:20 | NUR ---
Patient extubated Patient extubated by RT Jason, placed on aerosol mask 10 lpm 40 % fio2.
[2025-02-14] MEDS: FAMOTIDINE 20MG VIAL IV SCH (20:31)
--- NOTE | 2025-02-14 20:47 | PN ---
Endocrinology progress note DOS: 02/14/25 subjective: glucose are improving and scheduled for CABG procedure today. Home diabetic regimen: metformin 500 mg bid, Hba1c 13.9% . PAST MEDICAL HISTORY: [ Diabetes, hyperlipidemia, [place]/coronary artery disease ] PAST SURGICAL HISTORY: [ Cardiac stent, cholecystectomy and left inguinal hernia repair ] PAST SOCIAL HISTORY: [ Patient lives with . Patient admits he drinks two beer yesterday. Patient reports he occasional drinks alcohol denies cigarette and recreational drug use. ] FAMILY HISTORY: [ Diabetes, cardiovascular disease, asthma and cancer ] Coded Allergies: No Known Drug Allergies (Unverified Allergy, Unknown, 08/31/15) ASSESSMENT: Hyperglycemia secondary to uncontrolled diabetes POA Home diabetic regimen: metformin 500 mg bid, Hba1c 13.9% glucose is uncontrolled at home and glucose is high, so insulin adjusted. Chest pain rule out ACS: NSTEMI POA triple vessel disease Hyperlipidemia POA Obesity POA [place]/Coronary artery disease with cardiac stent POA PLAN: start insulin drip after CABG., continue Lantus t 12 units daily continue Regular insulin 3 units three times before meals and adjust for post- prandial glucose. Continue medium dose sliding scale insulin. Monitor glucose q x 6 hourly. Keep glucose less than 180 mg/dl. Patient will need insulin at discharge Vitals/Labs Vital Signs Date Time Temp Pulse Resp B/P (MAP) Pulse Ox O2 Delivery O2 Flow Rate FiO2 02/14/25 18:33 126 40 02/14/25 18:00 143/83 (103) 100 02/14/25 17:00 9 02/14/25 17:00 Ventilator+ 02/14/25 16:00 98.2 02/13/25 19:18 0 Laboratory Tests 02/14/25 05:21 02/14/25 12:52 Microbiology Date/Time Source Procedure Growth Status 02/14/25 06:40 Nasal Nasal Screen MRSA (PCR)([facility]) - Final Complete Medications Current Medications Sodium Chloride 1,000 ml @ 0 mls/hr ONCE ONCE IV; Start 02/10/25 at 01:00; Stop 02/10/25 at 00:46; Status DC Sodium Chloride 500 ml @ 0 mls/hr ONCE ONCE IV Last administered on 02/10/25at 00:53; Start 02/10/25 at 01:00; Stop 02/10/25 at 01:01; Status DC Insulin Human Regular 5 unit ONCE ONCE IV Last administered on 02/10/25at 01:30; Start 02/10/25 at 01:30; Stop 02/10/25 at 01:31; Status DC Aspirin 325 mg ONCE ONCE PO Last administered on 02/10/25at 02:32; Start 02/10/25 at 02:30; Stop 02/10/25 at 02:31; Status DC Heparin Sodium/ Dextrose 250 ml @ 0 mls/hr PROTOCOL IV Last administered on 02/10/25at 03:00; Start 02/10/25 at 03:00; Stop 02/10/25 at 17:22; Status DC Heparin Sodium (Porcine) 7,000 unit ONCE ONCE SQ Last administered on 02/10/25at 02:55; Start 02/10/25 at 03:00; Stop 02/10/25 at 03:01; Status DC Acetaminophen 650 mg Q6H PRN PO Last administered on 02/12/25at 17:13; Start 02/10/25 at 05:00; Stop 02/14/25 at 10:17; Status DC Acetaminophen 650 mg Q4H PRN PO; Start 02/10/25 at 05:00; Stop 02/14/25 at 10:05; Status DC Ondansetron HCl 4 mg Q6H PRN IV; Start 02/10/25 at 05:00; Stop 02/14/25 at 10:17; Status DC Nitroglycerin 0.4 mg PROTOCOL PRN SL; Start 02/10/25 at 05:00; Stop 02/14/25 at 09:59; Status DC Famotidine 20 mg DAILY PO Last administered on 02/13/25at 10:53; Start 02/10/25 at 09:00; Stop 02/14/25 at 09:59; Status DC Sodium Chloride 1,000 ml @ 100 mls/hr Q10H IV Last administered on 02/10/25at 14:20; Start 02/10/25 at 05:00; Stop 02/10/25 at 17:22; Status DC Insulin Human Regular INSULIN SLIDING SCAL... Q4H SQ Last administered on 02/10/25at 09:15; Start 02/10/25 at 05:00; Stop 02/10/25 at 11:10; Status DC Dextrose 50 ml AD PRN IV; Start 02/10/25 at 05:00; Stop 02/14/25 at 10:17; Status DC Glucagon 1 mg AD PRN IM; Start 02/10/25 at 05:00; Stop 02/14/25 at 10:17; Status DC Magnesium Sulfate 50 ml @ 0 mls/hr PROTOCOL PRN IV Last administered on 02/12/25at 07:13; Start 02/10/25 at 05:00; Stop 02/14/25 at 10:17; Status DC Potassium Chloride 100 ml @ 100 mls/hr AD PRN IV Last administered on 02/14/25at 20:31; Start 02/10/25 at 05:00; Stop 03/12/25 at 04:59 Potassium Chloride 20 meq AD PRN PO; Start 02/10/25 at 05:00; Stop 03/12/25 at 04:59 Potassium Chloride 20 meq AD PRN PO Last administered on 02/13/25at 05:45; Start 02/10/25 at 05:00; Stop 03/12/25 at 04:59 Aspirin 81 mg DAILY PO Last administered on 02/13/25at 10:52; Start 02/10/25 at 09:00; Stop 03/12/25 at 08:59 Insulin Human Regular INSULIN SLIDING SCAL... Q6H6 SQ Last administered on 02/11/25at 17:29; Start 02/10/25 at 12:00; Stop 02/14/25 at 09:59; Status DC Clopidogrel Bisulfate 600 mg ONCE PO Last administered on 02/10/25at 14:19; Start 02/10/25 at 14:00; Stop 02/10/25 at 17:22; Status DC Aspirin 325 mg ONCE PO Last administered on 02/10/25at 14:32; Start 02/10/25 at 14:30; Stop 02/10/25 at 17:22; Status DC Sacubitril/ Valsartan 0.5 each BID PO Last administered on 02/13/25at 21:11; Start 02/10/25 at 21:00; Stop 02/14/25 at 09:59; Status DC Empaglifozin 10 mg DAILY PO Last administered on 02/13/25at 10:52; Start 02/10/25 at 14:30; Stop 02/14/25 at 09:59; Status DC Spironolactone 25 mg DAILY PO Last administered on 02/13/25at 10:52; Start 02/10/25 at 14:30; Stop 02/14/25 at 09:59; Status DC Furosemide 20 mg ONCE IV Last administered on 02/10/25at 17:00; Start 02/10/25 at 17:00; Stop 02/10/25 at 21:00; Status DC Furosemide 20 mg ONCE IV; Start 02/11/25 at 09:00; Stop 02/11/25 at 07:43; Status DC Lidocaine HCl 20 ml STK-MED ONCE .ROUTE; Start 02/10/25 at 15:22; Stop 02/10/25 at 15:23; Status DC Iohexol 35,000 mg STK-MED ONCE IV; Start 02/10/25 at 15:22; Stop 02/10/25 at 15:23; Status DC Iohexol 50 ml STK-MED ONCE IV; Start 02/10/25 at 15:22; Stop 02/10/25 at 15:23; Status DC Heparin Sodium (Porcine) 10,000 unit STK-MED ONCE .ROUTE; Start 02/10/25 at 15:23; Stop 02/10/25 at 15:23; Status DC Heparin Sodium/ Sodium Chloride 1,000 ml @ As Directed STK-MED ONCE IV; Start 02/10/25 at 15:23; Stop 02/10/25 at 15:23; Status DC Nitroglycerin 50 mg STK-MED ONCE .ROUTE; Start 02/10/25 at 15:23; Stop 02/10/25 at 15:23; Status DC Heparin Sodium/ Sodium Chloride 500 ml @ As Directed STK-MED ONCE IV; Start 02/10/25 at 15:35; Stop 02/10/25 at 15:35; Status DC Fentanyl Citrate 100 mcg STK-MED ONCE .ROUTE; Start 02/10/25 at 15:39; Stop 02/10/25 at 15:40; Status DC Midazolam HCl 2 mg STK-MED ONCE .ROUTE; Start 02/10/25 at 15:40; Stop 02/10/25 at 15:40; Status DC Bivalirudin 250 mg STK-MED ONCE IV; Start 02/10/25 at 16:15; Stop 02/10/25 at 16:15; Status DC Heparin Sodium (Porcine) 7,000 unit ONCE ONCE IV Last administered on 02/11/25at 05:46; Start 02/11/25 at 05:30; Stop 02/11/25 at 05:31; Status DC Heparin Sodium/ Dextrose 250 ml @ 0 mls/hr Q6H IV Last administered on 02/13/25at 13:01; Start 02/11/25 at 06:30; Stop 02/14/25 at 09:59; Status DC Clopidogrel Bisulfate 75 mg DAILY PO; Start 02/11/25 at 09:00; Stop 02/11/25 at 07:28; Status DC Insulin Glargine 15 units DAILY08 SQ Last administered on 02/12/25at 08:54; Start 02/11/25 at 08:00; Stop 02/13/25 at 05:24; Status DC Furosemide 20 mg DAILY PO Last administered on 02/13/25at 10:52; Start 02/11/25 at 09:00; Stop 02/14/25 at 09:59; Status DC Insulin Human Regular 3 unit TIDAC SQ Last administered on 02/12/25at 16:31; Start 02/12/25 at 07:30; Stop 02/14/25 at 09:59; Status DC Metoprolol Tartrate 12.5 mg BID PO Last administered on 02/14/25at 06:44; Start 02/12/25 at 09:00; Stop 02/14/25 at 09:59; Status DC Potassium Chloride 40 meq BID ONCE PO; Start 02/12/25 at 21:00; Stop 02/12/25 at 21:01; Status DC Magnesium Chloride 64 mg Q8H6 ONCE PO; Start 02/12/25 at 14:00; Stop 02/12/25 at 14:01; Status DC Heparin Sodium (Porcine) *calculation based on ACTUAL B... AD PRN IV Last administered on 02/12/25at 20:16; Start 02/12/25 at 21:00; Stop 02/14/25 at 09:59; Status DC Insulin Glargine 12 units DAILY08 SQ Last administered on 02/13/25at 10:51; Start 02/13/25 at 08:00; Stop 02/14/25 at 09:59; Status DC Cefazolin Sodium 2 gm ONCALL IVP Last administered on 02/14/25at 08:50; Start 02/13/25 at 20:00; Stop 02/14/25 at 18:51; Status DC Epinephrine HCl 10 mg/Sodium Chloride 250 ml @ 0 mls/hr AD PRN IV; Start 02/14/25 at 06:30; Stop 03/16/25 at 06:29 Norepinephrine Bitartrate 250 ml @ 0 mls/hr AD PRN IV; Start 02/14/25 at 06:30; Stop 03/16/25 at 06:29 Aminocaproic Acid 58944 mg/Sodium Chloride 480 ml @ 0 mls/hr AD PRN IV; Start 02/14/25 at 06:30; Stop 03/16/25 at 06:29 Epinephrine HCl 10 mg/Sodium Chloride 250 ml @ 0 mls/hr AD PRN IV; Start 02/14/25 at 07:00; Stop 02/14/25 at 06:51; Status DC Norepinephrine Bitartrate 250 ml @ 0 mls/hr AD PRN IV; Start 02/14/25 at 07:00; Stop 02/14/25 at 06:51; Status DC Aminocaproic Acid 13927 mg/Sodium Chloride 480 ml @ 0 mls/hr AD PRN IV; Start 02/14/25 at 07:00; Stop 02/14/25 at 06:51; Status DC Cefazolin Sodium 2 gm STK-MED ONCE .ROUTE; Start 02/14/25 at 06:53; Stop 02/14/25 at 06:53; Status DC Nitroglycerin/ Dextrose 1 ml @ As Directed STK-MED ONCE .ROUTE; Start 02/14/25 at 07:00; Stop 02/14/25 at 07:00; Status DC Cefazolin Sodium 1 gm STK-MED ONCE .ROUTE Last administered on 02/14/25at 10:09; Start 02/14/25 at 07:37; Stop 02/14/25 at 07:38; Status DC Heparin Sodium/ Sodium Chloride 500 ml @ As Directed STK-MED ONCE IV; Start 02/14/25 at 07:38; Stop 02/14/25 at 07:38; Status DC Papaverine HCl 60 mg STK-MED ONCE .ROUTE Last administered on 02/14/25at 10:10; Start 02/14/25 at 07:38; Stop 02/14/25 at 07:38; Status DC Midazolam HCl 2 mg STK-MED ONCE .ROUTE; Start 02/14/25 at 08:14; Stop 02/14/25 at 08:14; Status DC Ketamine HCl 500 mg STK-MED ONCE IJ; Start 02/14/25 at 08:16; Stop 02/14/25 at 08:16; Status DC Protamine Sulfate 250 mg STK-MED ONCE IV; Start 02/14/25 at 08:17; Stop 02/14/25 at 08:17; Status DC Lidocaine HCl 100 mg STK-MED ONCE .ROUTE; Start 02/14/25 at 08:17; Stop 02/14/25 at 08:17; Status DC Heparin Sodium (Porcine) 10,000 unit STK-MED ONCE .ROUTE; Start 02/14/25 at 08:17; Stop 02/14/25 at 08:17; Status DC Epinephrine HCl 1 mg STK-MED ONCE .ROUTE; Start 02/14/25 at 08:17; Stop 02/14/25 at 08:17; Status DC Sodium Bicarbonate 200 ml @ As Directed STK-MED ONCE .ROUTE; Start 02/14/25 at 08:17; Stop 02/14/25 at 08:17; Status DC Norepinephrine Bitartrate 4 mg STK-MED ONCE IV; Start 02/14/25 at 08:17; Stop 02/14/25 at 08:17; Status DC Propofol 200 mg STK-MED ONCE IV; Start 02/14/25 at 08:19; Stop 02/14/25 at 08:19; Status DC Fentanyl Citrate 1,000 mcg STK-MED ONCE IJ; Start 02/14/25 at 08:19; Stop 02/14/25 at 08:19; Status DC Midazolam HCl 2 mg STK-MED ONCE .ROUTE; Start 02/14/25 at 08:20; Stop 02/14/25 at 08:20; Status DC Rocuronium [place] 50 mg STK-MED ONCE .ROUTE; Start 02/14/25 at 08:20; Stop 02/14/25 at 08:20; Status DC Acetaminophen 1,000 mg Q6H6 IV Last administered on 02/14/25at 18:34; Start 02/14/25 at 14:00; Stop 02/15/25 at 13:59 Aspirin 81 mg ONCE ONCE NG Last administered on 02/14/25at 13:56; Start 02/14/25 at 14:00; Stop 02/14/25 at 14:01; Status DC Docusate Sodium 100 mg BID PO; Start 02/14/25 at 21:00; Stop 03/16/25 at 20:59 Lactulose 20 gm BID PRN PO; Start 02/14/25 at 10:00; Stop 03/16/25 at 09:59 Furosemide 20 mg Q12H PO; Start 02/16/25 at 09:00; Stop 03/18/25 at 08:59 Furosemide 20 mg Q12H IV; Start 02/15/25 at 09:00; Stop 02/16/25 at 08:59 Atorvastatin Calcium 40 mg HS PO; Start 02/14/25 at 21:00; Stop 03/16/25 at 20:59 Enoxaparin Sodium 30 mg DAILY SQ; Start 02/17/25 at 09:00; Stop 03/19/25 at 08:59 Metoprolol Tartrate 12.5 mg BID PO; Start 02/16/25 at 09:00; Stop 03/18/25 at 08:59 Magnesium Hydroxide 30 ml DAILY PRN PO; Start 02/14/25 at 10:00; Stop 03/16/25 at 09:59 Dexmedetomidine/ Sodium Chloride 400 mcg PROTOCOL IV; Start 02/14/25 at 10:00; Stop 02/15/25 at 09:59 Acetaminophen 650 mg Q6H PRN PO; Start 02/14/25 at 10:00; Stop 03/16/25 at 09:59 Heparin Sodium (Porcine) 10,000 unit STK-MED ONCE .ROUTE; Start 02/14/25 at 10:00; Stop 02/14/25 at 10:00; Status DC Sodium Chloride 1,000 ml @ 10 mls/hr ONCE IV; Start 02/14/25 at 10:00; Stop 02/15/25 at 09:59 Sodium Chloride 10 ml Q8H PRN IVP; Start 02/14/25 at 10:00; Stop 03/16/25 at 09:59 Morphine Sulfate 0.5 mg Q2H PRN IV; Start 02/14/25 at 10:00; Stop 02/15/25 at 09:59 Morphine Sulfate 1 mg Q2H PRN IV Last administered on 02/14/25at 14:23; Start 02/14/25 at 10:30; Stop 02/21/25 at 10:29 Acetaminophen 650 mg Q4H PRN RC; Start 02/14/25 at 10:00; Stop 03/16/25 at 09:59 Ondansetron HCl 4 mg Q6H PRN IV; Start 02/14/25 at 10:00; Stop 03/16/25 at 09:59 Sodium Chloride 500 ml @ 0 mls/hr AD IV; Start 02/14/25 at 10:00; Stop 03/16/25 at 09:59 Nitroglycerin/ Dextrose 0 ml @ 0 mls/hr AD IV; Start 02/14/25 at 10:00; Stop 02/17/25 at 09:59 Propofol 100 ml @ 0 mls/hr AD PRN IV; Start 02/14/25 at 10:00; Stop 02/18/25 at 09:59 Norepinephrine Bitartrate 8 mg/ Dextrose 250 ml @ 0 mls/hr AD PRN IV; Start 02/14/25 at 10:00; Stop 02/14/25 at 10:14; Status DC Epinephrine HCl 10 mg/Sodium Chloride 250 ml @ 0 mls/hr AD PRN IV; Start 02/14/25 at 10:00; Stop 02/14/25 at 10:14; Status DC Aminocaproic Acid 02958 mg/Sodium Chloride 310 ml @ 25 mls/hr AD IV; Start 02/14/25 at 10:00; Stop 02/14/25 at 10:19; Status DC Calcium Gluconate 1 gm/Sodium Chloride 60 ml @ 200 mls/hr AD PRN IV Last administered on 02/14/25at 20:31; Start 02/14/25 at 10:00; Stop 03/16/25 at 09:59 Magnesium Sulfate 50 ml @ 12.5 mls/hr AD PRN IV Last administered on 02/14/25at 17:29; Start 02/14/25 at 10:00; Stop 03/16/25 at 09:59 Potassium Chloride 100 ml @ 100 mls/hr AD PRN IV; Start 02/14/25 at 10:00; Stop 03/16/25 at 09:59 Potassium Phosphate 250 ml @ 42 mls/hr AD PRN IV; Start 02/14/25 at 10:00; Stop 03/16/25 at 09:59 Albumin Human 250 ml @ 0 mls/hr AD PRN IV Last administered on 02/14/25at 14:42; Start 02/14/25 at 10:00; Stop 02/14/25 at 14:42; Status DC Acetaminophen 650 mg Q4H PRN PO; Start 02/14/25 at 10:00; Stop 03/16/25 at 09:59 Insulin Human Regular 100 unit/ Sodium Chloride 100 ml @ 0 mls/hr AD IV; Start 02/14/25 at 10:00; Stop 02/16/25 at 09:59 Cefazolin Sodium 2 gm Q8H IVPB Last administered on 02/14/25at 15:04; Start 02/14/25 at 15:00; Stop 02/15/25 at 07:01 Tramadol HCl 25 mg Q6H PRN PO; Start 02/14/25 at 10:00; Stop 02/19/25 at 09:59 Tramadol HCl 50 mg Q6H PRN PO; Start 02/14/25 at 10:00; Stop 02/19/25 at 09:59 Famotidine 20 mg BID IV Last administered on 02/14/25at 20:31; Start 02/14/25 at 21:00; Stop 03/16/25 at 20:59 Sodium Bicarbonate 50 meq AD PRN IV Last administered on 02/14/25at 18:40; Start 02/14/25 at 10:00; Stop 02/17/25 at 09:59 Dextrose 50 ml AD PRN IV; Start 02/14/25 at 10:00; Stop 03/16/25 at 09:59 Glucagon 1 mg AD PRN IM; Start 02/14/25 at 10:00; Stop 03/16/25 at 09:59 Dobutamine HCl 250 mg STK-MED ONCE .ROUTE; Start 02/14/25 at 10:28; Stop 02/14/25 at 10:28; Status DC Sodium Bicarbonate 50 ml @ As Directed STK-MED ONCE .ROUTE; Start 02/14/25 at 10:52; Stop 02/14/25 at 10:52; Status DC Sodium Bicarbonate 200 ml @ As Directed STK-MED ONCE .ROUTE; Start 02/14/25 at 10:53; Stop 02/14/25 at 10:53; Status DC Vasopressin 20 units STK-MED ONCE .ROUTE; Start 02/14/25 at 11:51; Stop 02/14/25 at 11:51; Status DC Rocuronium [place] 50 mg STK-MED ONCE .ROUTE; Start 02/14/25 at 12:14; Stop 02/14/25 at 12:14; Status DC Sodium Bicarbonate 100 ml @ As Directed STK-MED ONCE .ROUTE; Start 02/14/25 at 12:16; Stop 02/14/25 at 12:16; Status DC Vasopressin 40 units/Sodium Chloride 40 ml @ 0 mls/hr PROTOCOL IV; Start 02/14/25 at 13:00; Stop 03/16/25 at 12:59 Albumin Human 250 ml @ 0 mls/hr AD IV; Start 02/14/25 at 15:30; Stop 02/19/25 at 15:29 Calcium Gluconate 2 gm/Sodium Chloride 100 ml @ 0 mls/hr ONCE ONCE IV Last administered on 02/14/25at 16:15; Start 02/14/25 at 16:30; Stop 02/14/25 at 16:31; Status DC Pharmacy Profile Note 1 each ONCE MISC; Start 02/14/25 at 18:00; Stop 02/14/25 at 18:27; Status DC Sodium Bicarbonate 25 meq/Dextrose 1,025 ml @ 0 mls/hr Q0M IV Last administered on 02/14/25at 18:19; Start 02/14/25 at 18:00; Stop 03/16/25 at 17:59 EUGENE ZARATE MD Feb 14, 2025 20:47
[2025-02-14 21:50] LABS: ABG BASE EXCESS 0.8 mmol/L (-2.0-3.0); ABG HCO3 24.8 mmol/L (21.0-28.0); ABG OXYGEN SATURATION 96.3 % (94.0-98.0); ABG PCO2 38 mmHg (35-48); ABG PH 7.438 (7.350-7.450); CARBON MONOXIDE 0.3 % (0.5-1.5); PO2, ARTERIAL BG 88.6 mmHg (83.0-108.0); TEMPERATURE, CELSIUS BG 37.0 CELSIUS (35.5-37.0); VENT MODE, BG AM,40 (ROOM AIR)
--- NOTE | 2025-02-14 21:53 | NUR ---
RE: Pedal pulses Dr. Alexis made aware of difficulty finding pedal pulses on bilateral lower extremities. Informed MD lower extremities warmed and pedal pulse to right foot found by doppler. No pedal pulse to left foot. Postibial pulses by doppler to bilateral lower extremities. No new orders received.
[2025-02-14] MEDS: VASOpressin 20 UNITS/ML 1ML Vi 40 UNITS in 0.9%NACL 50ML 40 ML IV SCH (22:11)
[2025-02-15] VITALS (103 sets, daily range): BP systolic 85–157; BP diastolic 14–91; PULSE 91–121; RESP 7–30; TEMP 97.8–99.2; O2SAT 93–98
--- NOTE | 2025-02-15 06:22 | OP ---
DATE OF PROCEDURE: 02/14/2025 PREOPERATIVE DIAGNOSIS: Depressed ventricular function, ischemic cardiomyopathy, three-vessel coronary artery disease, ejection fraction of 20%. PROCEDURE PERFORMED: 1. Insertion of intraaortic balloon pump, left. 2. Insertion of L5.5 Impella through an 8 mm conduit on the ascending aorta. 3. Off-pump CABG x 3: BISHOP to LAD, reverse saphenous vein graft to oblique marginal, reverse saphenous vein graft to PDA. 4. Left atrial clipping. SURGEON: Hipolito Alexis MD PROP CUTTER: Samm. ANESTHESIA: Dr. Redmond. CARDIOLOGY: Dr. Don. DISPOSITION: Stable. COMPLICATIONS: None. ESTIMATED BLOOD LOSS: 700 mL. BLOOD UTILIZATION: None. DRAINS: 32 mediastinal, 24 Nikolai. IMPLANTS: 1. An 8 mm Dacron graft on the ascending aorta. 2. Three LATA plates with sixteen #16 gauge screws and two #12 screws, three plates. 3. A 45-mm AtriCure clip. INDICATIONS: This is a patient of Dr. Don, whom I had the opportunity to review the medical record, examine the patient, and review the medical imaging. I have discussed the patient at length with Dr. Don and Dr. Kaur, my partner. As a team, we all agree that surgery would be indicated at a higher risk and would more than likely require some mechanical assistance after the procedure. The patient has a history of large anterolateral infarction, which is old. 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 He has got a 90% obstruction of the proximal circumflex vessel. The right coronary system has a 90% obstruction of the PDA. The veins were of poor quality, measuring about 2-2.5 mm max. The internal mammary artery was a good conduit, was anastomosed to the mid LAD between the stents. At the end of the procedure, transesophageal echocardiogram, which was utilized throughout the whole procedure to monitor function and to position the Impella L5.5. DESCRIPTION OF PROCEDURE IN DETAIL: With the patient in the supine position after adequate induction of general endotracheal anesthesia, preoperative intravenous antibiotics, percutaneous arterial and venous lines. A surgeon-directed timeout utilizing 2 patient identifiers, followed by a mid sternotomy and simultaneous harvesting of the left internal mammary artery from anterior left chest wall and greater saphenous vein from the left lower extremity using endoscopic technique. Access on the right groin was obtained at this time and an intraaortic balloon pump was advanced under echocardiographic guidance. After the patient was heparinized and the ACT came out to about over 400, the BISHOP was anastomosed to the LAD with end-to-side technique with a running suture of 7-0 Prolene between the stents. When I lifted the heart, despite the intraaortic balloon pump, the systemic pressure dropped despite of inotropic support in the intraaortic balloon pump and the decision was to proceed with placement of Impella L4.5. Utilizing a Heartstring device at the top of the ascending aorta opposite to the innominate artery, a 4.8 mm Heartstring was placed and an end-to-side anastomosis between the 8 mm Dacron graft and the ascending aorta was performed. The graft was then exited through a stab wound on the left supraclavicular area. The Impella was de-aired and advanced under direct echocardiographic guidance and started at 2.8 L. The heart was then elevated and utilizing a mechanical stabilizer and an end-to-end anastomosis performed between the saphenous vein graft and the larger oblique marginal. In the same manner, the PDA was then bypassed. Utilizing a Heartstring device, a proximal anastomosis was performed on the ascending aorta with a oblique marginal graft. A venovenous anastomosis performed between the PDA graft and the circumflex graft, the reason being that we do not have any more Heartstrings and the vein is quite small. Once the heart was fully revascularized, the transesophageal echocardiogram demonstrates improved function and the intraaortic balloon pump is 1:3 and the Impella is flowing at P4 with a good systemic blood pressure. Protamine was given. Hemostasis was achieved. The Impella is shortened and the conduit is buried under the skin and closed with valeria. Two chest drains were placed. The pericardium partially closed. Stainless steel wires for sternum wound x4 and 3 LATA plates with 18 screws, sixteen #16, and two #12. The #1 Vicryl and 3-0 Monocryl used for closure. The left atrial appendage was ligated so the patient reaches 3 on the CHADS criteria. The left atrial appendage was ligated just immediately after performing the graft to the oblique marginal artery. A number 45-mm AtriCure was utilized. The wound was dressed and the patient was transferred in stable condition to the ICU at P4, flowing at 2.5 L and intraaortic balloon pump 1:3 with good blood pressure. TID: [id number] RECEIPT: [id number] cc: RENATO DON MD(User)
[2025-02-15] MEDS: INSULIN REGULAR, HUMAN 3ML 100 UNIT in 0.9%NACL 100ML 99 ML IV SCH (06:30)
[2025-02-15 06:43] LABS: NUCLEATED RED BLOOD CELLS 0.0 % (0.0-0.19); PLATELET COUNT (AUTO) 160.0 K/uL (130-400); RED BLOOD CELL COUNT(AUTO) 3.51 MIL/uL (4.50-6.20); RED CELL DISTRIBUTION WIDTH 14.4 % (11.0-15.5); WHITE BLOOD COUNT (AUTO) 18.6 K/uL (4.8-10.8)
[2025-02-15 06:55] LABS: INR 1.09 (0.85-1.15)
[2025-02-15 07:00] LABS: ABG BASE EXCESS 5.4 mmol/L (-2.0-3.0); ABG HCO3 28.8 mmol/L (21.0-28.0); ABG OXYGEN SATURATION 93.5 % (94.0-98.0); ABG PCO2 38 mmHg (35-48); ABG PH 7.498 (7.350-7.450); CARBON MONOXIDE 0.2 % (0.5-1.5); PO2, ARTERIAL BG 67.9 mmHg (83.0-108.0); TEMPERATURE, CELSIUS BG 37.0 CELSIUS (35.5-37.0); VENT MODE, BG 4 L NC (ROOM AIR)
[2025-02-15 07:09] LABS: CREATININE 1.2 mg/dL (0.5-1.3); GLOMERULAR FILTR. RATE CALC 63.0 mL/min (>90); GLUCOSE,RANDOM 118.0 mg/dL (70-105); PHOSPHORUS 4.6 mg/dL (2.5-4.9); SODIUM SERUM 151.0 mmol/L (136-145); UREA NITROGEN, BLOOD 18.0 mg/dL (7-18)
--- NOTE | 2025-02-15 07:26 | PN ---
[facility] CARDIOLOGY PROGRESS NOTE Date Patient Seen: Feb 15, 2025 Time of Visit: 07:24 Interval History: [s/p Impella assisted CABG ] Physical Examination: GENERAL: [No acute distress.] HEAD: [Normal with no signs of head trauma.] EYES: [PERRLA, EOMI, conjunctiva and sclera normal.] ENT: [Hearing grossly intact, normal oropharynx.] NECK: [Supple without JVD. There is no tenderness, lymphadenopathy, or masses. No thyromegaly. Normal carotid upstrokes without bruits.] LUNGS: [Clear breath sounds bilaterally. There are right basilar rales one third of the way up the chest. No wheezes, or rhonchi.] HEART: [Normal rate and rhythm. Normal S1 and S2 without mumurs, gallop or rub.] VASC: [Peripheral pulses +2 bilaterally.] ABD: [Bowel sounds normal, soft, nontender, no masses, no organomegaly. No audible bruits.] : [Not examined] LYMPH: [No lymphadenopathy noted.] EXT: [No clubbing, cyanosis or edema.] SKIN: [No rashes or lesions noted.] NEURO: [Awake, alert, and oriented x3. No focal sensory or strength deficits noted.] Laboratory: [ ] Hematology Labs: Test 02/15/25 05:35 02/14/25 05:21 Range/Units White Blood Count 18.6 H 4.8-10.8 K/uL Red Blood Count 3.51 L 4.50-6.20 MIL/uL Hemoglobin 10.6 L 14.0-18.0 g/dL Hematocrit 30.7 L 42-54 % Mean Corpuscular Volume 87.5 79-99 fL Mean Corpuscular Hemoglobin 30.2 27.0-33.0 pg Mean Corpuscular Hemoglobin Concent 34.5 32.0-36.0 g/dL Red Cell Distribution Width 14.4 11.0-15.5 % Platelet Count 160 130-400 K/uL Mean Platelet Volume 12.1 H 7.5-10.5 fL Nucleated Red Blood Cells 0.0 0.0-0.19 % Immature Granulocyte % (Auto) 0.4 0-1 % Neutrophils (%) (Auto) 56.7 40.0-77.0 % Lymphocytes (%) (Auto) 29.1 21.0-51.0 % Monocytes (%) (Auto) 9.3 3.0-13.0 % Eosinophils (%) (Auto) 3.8 0.0-8.0 % Basophils (%) (Auto) 0.7 0.0-5.0 % Neutrophils # (Auto) 6.0 1.8-7.7 K/uL Lymphocytes # (Auto) 3.1 1.0-4.8 K/uL Monocytes # (Auto) 1.0 0.1-1.0 K/uL Eosinophils # (Auto) 0.40 0.00-0.70 K/uL Basophils # (Auto) 0.07 0.00-0.20 K/uL Absolute Immature Granulocyte (auto 0.04 0-1 K/uL Chemistry Labs: Test 02/15/25 06:05 02/15/25 05:35 02/14/25 05:21 02/13/25 16:06 Range/Units Whole Blood Glucose 116 H 70-110 MG/DL Sodium Level 151 H 136-145 mmol/L Potassium Level 3.5 3.5-5.1 mmol/L Chloride Level 109 101-111 mmol/L Carbon Dioxide Level 31 21-32 mmol/L Blood Urea Nitrogen 18 7-18 mg/dL Creatinine 1.2 0.5-1.3 mg/dL Glomerular Filtration Rate Calc 63 >90 mL/min Random Glucose 118 H 70-105 mg/dL Total Calcium 9.0 8.5-10.1 mg/dL Ionized Calcium 1.10 L 1.15-1.33 MMOL/L Phosphorus Level 4.6 2.5-4.9 mg/dL Magnesium Level 2.00 1.80-2.40 mg/dL Total Bilirubin 2.0 H 0.2-1.0 mg/dL Aspartate Amino Transf (AST/SGOT) 30 10-37 U/L Alanine Aminotransferase (ALT/SGPT) 32 12-78 U/L Alkaline Phosphatase 80 50-136 U/L Total Protein 7.8 6.0-8.3 g/dL Albumin 3.8 3.5-5.0 g/dL Triglycerides Level 100 30-200 mg/dL Cholesterol Level 187 # <200 mg/dL LDL Cholesterol 107 H 0-99 mg/dL HDL Cholesterol 63 29-71 mg/dL Bedside Glucose Comment Notified Nurse Coagulation Labs: Test 02/15/25 05:35 Range/Units Prothrombin Time 11.5 9.6-11.6 SEC Prothromb Time International Ratio 1.09 0.85-1.15 Activated Partial Thromboplast Time 28.3 26.3-35.5 SEC Diagnostics / Radiology: [Copy/Paste Echos/Imaging Report here] Impression and Plan: [ 1. Non ST-elevation myocardial infarction 2. Remote myocardial infarction status post stenting of the mid LAD and distal LAD February 2016 3. 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 Diabetes mellitus type 2 6. Dyslipidemia 7. Hypertension 8. 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 Anglican 10. History of beta estela intolerance due to erectile dysfunction #NSTEMI with HFrEEFF 20%% due to ICM s/p Impella assisted CABG 3v (BISHOP to LAD, SVG to OM, SVG R PDA) -IABP -Trop 14,217, now has downtrended -lasix IV 20 mg q12h, aspirin 81 mg qd, atorvastatin -Wean pressors as MAPs allow, rest of care per CV surgery ] COREEN ROBERTO MD Feb 15, 2025 07:26
--- NOTE | 2025-02-15 09:37 | CONS ---
[facility] CONSULTATION NOTE Date Patient Seen: Feb 14, 2025 Time of Visit: 09:37 Supervising Physician: DR LU GARCIA Reason for Consultation: ICU MEDICAL MANAGEMENT Primary Care Physician: [ ] Outpatient Specialists: [ ] Inpatient Consults: [ ] PROBLEM LIST: CAD, status post CABG x3 Impella and a intra-aortic balloon pump support Type 2 diabetes Congested heart failure EF 20% HPI: 74-year-old male with a past medical history of recurrent noncompliance, hypertension/hypotension on medications, hyperlipidemia, prior left occipital an left parietal CVA February 2023, diabetes mellitus type 2, erectile dysfunction on beta-blockers, chronic systolic heart failure (HFrEF), ischemic cardiomyopathy with LVEF of 40% by 2D echo 04/22/2021, and CAD status post acute anterior RI s/p C 03/09/2016, presenting to the cardiac care unit status post CABG x3 vessels, patient presents intubated, sedated, currently on levo, epi and vaso. He presents with a Impella 5.5 along with a intra-aortic balloon pump at 1:3. No reported complications. Admitted in the hospitalist service, critical Care consulted for ICU medical management Full code PAST MEDICAL HX: see above PAST SURGICAL HX: noncontributory SOCIAL HISTORY: No tobacco, ETOH, or illicit drug use Coded Allergies: No Known Drug Allergies (Unverified Allergy, Unknown, 08/31/15) REVIEW OF SYSTEMS: 12 point ROS reviewed with patient. Pertinent positives mentioned above. Otherwise negative. PHYSICAL EXAM: GENERAL: Patient presenting intubated and sedated HEENT: EOMI, Sclera non icteric, moist mucosa NECK: Supple, no JVD, trachea midline LUNGS: Clear breath sounds bilaterally. No wheezes HEART: Regular rate and rhythm. Normal S1 and S2, without murmurs ABD: Abdomen soft, nontender. Bowel sounds present EXT: No clubbing cyanosis or edema NEURO: Sedated Vital Signs (last 8hr) Date Time Temp Pulse Resp B/P (MAP) Pulse Ox O2 Delivery O2 Flow Rate FiO2 02/15/25 07:30 97 Nasal Cannula* 4 36 02/15/25 06:53 98 22 N/Cannula Low lpm 4.0 36 02/15/25 06:30 101 18 141/59 (86) 94 02/15/25 06:15 100 16 133/57 (82) 95 02/15/25 06:00 101 16 145/58 (87) 97 02/15/25 05:45 101 16 136/59 (84) 95 02/15/25 05:30 104 14 107/62 (77) 98 02/15/25 05:15 103 12 130/61 (84) 96 02/15/25 05:00 102 14 140/58 (85) 96 02/15/25 04:45 105 18 122/64 (83) 97 02/15/25 04:30 112 15 112/57 (75) 97 02/15/25 04:15 106 15 116/62 (80) 96 02/15/25 04:00 108 16 118/61 (80) 97 02/15/25 03:45 108 18 140/58 (85) 98 02/15/25 03:30 109 16 109/59 (76) 96 02/15/25 03:15 109 16 124/54 (77) 97 02/15/25 03:00 108 15 135/58 (83) 98 02/15/25 03:00 98.8 02/15/25 03:00 97 Nasal Cannula* 4 36 02/15/25 02:45 108 16 129/57 (81) 99 02/15/25 02:30 108 14 129/55 (79) 99 02/15/25 02:15 109 18 128/55 (79) 98 02/15/25 02:00 110 16 122/53 (76) 98 02/15/25 01:45 110 14 123/53 (76) 97 LABS: Hematology Labs: Test 02/15/25 05:35 02/14/25 05:21 Range/Units White Blood Count 18.6 H 4.8-10.8 K/uL Red Blood Count 3.51 L 4.50-6.20 MIL/uL Hemoglobin 10.6 L 14.0-18.0 g/dL Hematocrit 30.7 L 42-54 % Mean Corpuscular Volume 87.5 79-99 fL Mean Corpuscular Hemoglobin 30.2 27.0-33.0 pg Mean Corpuscular Hemoglobin Concent 34.5 32.0-36.0 g/dL Red Cell Distribution Width 14.4 11.0-15.5 % Platelet Count 160 130-400 K/uL Mean Platelet Volume 12.1 H 7.5-10.5 fL Nucleated Red Blood Cells 0.0 0.0-0.19 % Immature Granulocyte % (Auto) 0.4 0-1 % Neutrophils (%) (Auto) 56.7 40.0-77.0 % Lymphocytes (%) (Auto) 29.1 21.0-51.0 % Monocytes (%) (Auto) 9.3 3.0-13.0 % Eosinophils (%) (Auto) 3.8 0.0-8.0 % Basophils (%) (Auto) 0.7 0.0-5.0 % Neutrophils # (Auto) 6.0 1.8-7.7 K/uL Lymphocytes # (Auto) 3.1 1.0-4.8 K/uL Monocytes # (Auto) 1.0 0.1-1.0 K/uL Eosinophils # (Auto) 0.40 0.00-0.70 K/uL Basophils # (Auto) 0.07 0.00-0.20 K/uL Absolute Immature Granulocyte (auto 0.04 0-1 K/uL Chemistry Labs: Test 02/15/25 09:14 02/15/25 05:35 02/14/25 05:21 02/13/25 16:06 Range/Units Whole Blood Glucose 131 H 70-110 MG/DL Sodium Level 151 H 136-145 mmol/L Potassium Level 3.5 3.5-5.1 mmol/L Chloride Level 109 101-111 mmol/L Carbon Dioxide Level 31 21-32 mmol/L Blood Urea Nitrogen 18 7-18 mg/dL Creatinine 1.2 0.5-1.3 mg/dL Glomerular Filtration Rate Calc 63 >90 mL/min Random Glucose 118 H 70-105 mg/dL Total Calcium 9.0 8.5-10.1 mg/dL Ionized Calcium 1.10 L 1.15-1.33 MMOL/L Phosphorus Level 4.6 2.5-4.9 mg/dL Magnesium Level 2.00 1.80-2.40 mg/dL Total Bilirubin 2.0 H 0.2-1.0 mg/dL Aspartate Amino Transf (AST/SGOT) 30 10-37 U/L Alanine Aminotransferase (ALT/SGPT) 32 12-78 U/L Alkaline Phosphatase 80 50-136 U/L Total Protein 7.8 6.0-8.3 g/dL Albumin 3.8 3.5-5.0 g/dL Triglycerides Level 100 30-200 mg/dL Cholesterol Level 187 # <200 mg/dL LDL Cholesterol 107 H 0-99 mg/dL HDL Cholesterol 63 29-71 mg/dL Bedside Glucose Comment Notified Nurse Coagulation Labs: Test 02/15/25 05:35 Range/Units Prothrombin Time 11.5 9.6-11.6 SEC Prothromb Time International Ratio 1.09 0.85-1.15 Activated Partial Thromboplast Time 28.3 26.3-35.5 SEC DIAGNOSTICS / RADIOLOGY RESULTS: [ ] PLAN Follow CT surgeon postop protocol Weaning pressors I&Os Chest x-ray, ABG, vent management NEURO: Minimize central acting medications as possible. Fall Precautions. Well lighted room through the day and minimize interruptions through the night to prevent acute delirium. PULMONARY: Supplemental 02 as needed Titrate Fio2 to keep Spo2 > or = 90% DuoNebs and CPT as needed IS hourly while awake for pulmonary hygiene Out of bed to chair as tolerated VAP Bundle Vent/BIPAP Settings: [ ] Driving pressure: [ ] P Plat: [ ] Static C: [ ] Static R: [ ] P/F Ratio: [ ] CARDIOVASCULAR: Follow hemodynamics. Titrate vasopressor to keep MAP >65 or systolic blood pressure >95mmHg DIPS: [ ] LINES: [ ] GI & NUTRITION: Continue nutritional support Aspirations precautions Prokinetic agents and laxatives as needed KIDNEYS & ELECTROLYTES: Strict monitoring of intake and output Daily weights Avoid nephrotoxic agents Monitor electrolytes and replace as needed Goal urine output of 30mL/hr or 0.5mL/kg/hr Urine output: [ ] Fluid Balance: [ ] ENDOCRINE: Maintain blood glucose between 100-180 at all times. Insulin sliding scale for blood glucose management INFECTIOUS DISEASE: Trend temperature. Caldwell-culture if febrile. Micro: [ ] Antibiotics: [ ] HEMATOLOGY & COAGULATION: Monitor H&H. Keep Hgb > 7 Transfuse 1 unit of PRBC for Hgb < 7 Transfuse 1 pack of platelets of platelets < 20, 000 Watch for any signs and symptoms of bleeding SKIN: Pressure ulcer prevention per facility protocol Rehab: PT/OT Prophylaxis: GI: [ ] DVT: [ ] Code Status: Full Resuscitation Disposition: [ ] Other: Total patient care time exceeds 35 minutes excluding all procedures. Case was discussed and seen with my supervising physician. The above plan was formulated and agreed upon. MAGGIE JARRELL PAC Feb 15, 2025 09:37
--- NOTE | 2025-02-15 09:45 | PN ---
[facility] PROGRESS NOTE Date Patient Seen: Feb 15, 2025 Time of Visit: 09:43 Supervising Physician: Dr Willy Smith Primary Care Physician: [ ] Outpatient Specialists: [ ] Inpatient Consults: [ ] PROBLEM LIST: CAD, status post CABG x3 Impella and a intra-aortic balloon pump support Type 2 diabetes Congested heart failure EF 20% INTERVAL HISTORY: Patient was seen and examined, patient extubated at 8:20 p.m. overnight No acute events Patient is off levo, continues on epi and vaso P4/1-2 Chest tube to 60/12 Urine output 1100/12 Chest x-ray left congestion but stable Labs are stable Plan: Follow CT surgeon recs/protocol I&Os Weaning pressors Follow chest x-rays PT/OT when able Total critical care time spent 56 minutes, time excludes any procedures or educational time REVIEW OF SYSTEMS: 12 point ROS reviewed with patient. Pertinent positives mentioned above. Otherwise negative. PHYSICAL EXAM: GENERAL: Patient presenting intubated and sedated HEENT: EOMI, Sclera non icteric, moist mucosa NECK: Supple, no JVD, trachea midline LUNGS: Clear breath sounds bilaterally. No wheezes HEART: Regular rate and rhythm. Normal S1 and S2, without murmurs ABD: Abdomen soft, nontender. Bowel sounds present EXT: No clubbing cyanosis or edema NEURO: Sedated Vital Signs (last 8hr) Date Time Temp Pulse Resp B/P (MAP) Pulse Ox O2 Delivery O2 Flow Rate FiO2 02/15/25 07:30 97 Nasal Cannula* 4 36 02/15/25 06:53 98 22 N/Cannula Low lpm 4.0 36 02/15/25 06:30 101 18 141/59 (86) 94 02/15/25 06:15 100 16 133/57 (82) 95 02/15/25 06:00 101 16 145/58 (87) 97 02/15/25 05:45 101 16 136/59 (84) 95 02/15/25 05:30 104 14 107/62 (77) 98 02/15/25 05:15 103 12 130/61 (84) 96 02/15/25 05:00 102 14 140/58 (85) 96 02/15/25 04:45 105 18 122/64 (83) 97 02/15/25 04:30 112 15 112/57 (75) 97 02/15/25 04:15 106 15 116/62 (80) 96 02/15/25 04:00 108 16 118/61 (80) 97 02/15/25 03:45 108 18 140/58 (85) 98 02/15/25 03:30 109 16 109/59 (76) 96 02/15/25 03:15 109 16 124/54 (77) 97 02/15/25 03:00 108 15 135/58 (83) 98 02/15/25 03:00 98.8 02/15/25 03:00 97 Nasal Cannula* 4 36 02/15/25 02:45 108 16 129/57 (81) 99 02/15/25 02:30 108 14 129/55 (79) 99 02/15/25 02:15 109 18 128/55 (79) 98 02/15/25 02:00 110 16 122/53 (76) 98 02/15/25 01:45 110 14 123/53 (76) 97 LABS: Hematology Labs: Test 02/15/25 05:35 02/14/25 05:21 Range/Units White Blood Count 18.6 H 4.8-10.8 K/uL Red Blood Count 3.51 L 4.50-6.20 MIL/uL Hemoglobin 10.6 L 14.0-18.0 g/dL Hematocrit 30.7 L 42-54 % Mean Corpuscular Volume 87.5 79-99 fL Mean Corpuscular Hemoglobin 30.2 27.0-33.0 pg Mean Corpuscular Hemoglobin Concent 34.5 32.0-36.0 g/dL Red Cell Distribution Width 14.4 11.0-15.5 % Platelet Count 160 130-400 K/uL Mean Platelet Volume 12.1 H 7.5-10.5 fL Nucleated Red Blood Cells 0.0 0.0-0.19 % Immature Granulocyte % (Auto) 0.4 0-1 % Neutrophils (%) (Auto) 56.7 40.0-77.0 % Lymphocytes (%) (Auto) 29.1 21.0-51.0 % Monocytes (%) (Auto) 9.3 3.0-13.0 % Eosinophils (%) (Auto) 3.8 0.0-8.0 % Basophils (%) (Auto) 0.7 0.0-5.0 % Neutrophils # (Auto) 6.0 1.8-7.7 K/uL Lymphocytes # (Auto) 3.1 1.0-4.8 K/uL Monocytes # (Auto) 1.0 0.1-1.0 K/uL Eosinophils # (Auto) 0.40 0.00-0.70 K/uL Basophils # (Auto) 0.07 0.00-0.20 K/uL Absolute Immature Granulocyte (auto 0.04 0-1 K/uL Chemistry Labs: Test 02/15/25 09:14 02/15/25 05:35 02/14/25 05:21 02/13/25 16:06 Range/Units Whole Blood Glucose 131 H 70-110 MG/DL Sodium Level 151 H 136-145 mmol/L Potassium Level 3.5 3.5-5.1 mmol/L Chloride Level 109 101-111 mmol/L Carbon Dioxide Level 31 21-32 mmol/L Blood Urea Nitrogen 18 7-18 mg/dL Creatinine 1.2 0.5-1.3 mg/dL Glomerular Filtration Rate Calc 63 >90 mL/min Random Glucose 118 H 70-105 mg/dL Total Calcium 9.0 8.5-10.1 mg/dL Ionized Calcium 1.10 L 1.15-1.33 MMOL/L Phosphorus Level 4.6 2.5-4.9 mg/dL Magnesium Level 2.00 1.80-2.40 mg/dL Total Bilirubin 2.0 H 0.2-1.0 mg/dL Aspartate Amino Transf (AST/SGOT) 30 10-37 U/L Alanine Aminotransferase (ALT/SGPT) 32 12-78 U/L Alkaline Phosphatase 80 50-136 U/L Total Protein 7.8 6.0-8.3 g/dL Albumin 3.8 3.5-5.0 g/dL Triglycerides Level 100 30-200 mg/dL Cholesterol Level 187 # <200 mg/dL LDL Cholesterol 107 H 0-99 mg/dL HDL Cholesterol 63 29-71 mg/dL Bedside Glucose Comment Notified Nurse Coagulation Labs: Test 02/15/25 05:35 Range/Units Prothrombin Time 11.5 9.6-11.6 SEC Prothromb Time International Ratio 1.09 0.85-1.15 Activated Partial Thromboplast Time 28.3 26.3-35.5 SEC DIAGNOSTICS / RADIOLOGY RESULTS: [ ] PLAN NEURO: Minimize central acting medications as possible. Fall Precautions. Well lighted room through the day and minimize interruptions through the night to prevent acute delirium. PULMONARY: Supplemental 02 as needed Titrate Fio2 to keep Spo2 > or = 90% DuoNebs and CPT as needed IS hourly while awake for pulmonary hygiene Out of bed to chair as tolerated VAP Bundle Vent/BIPAP Settings: [ ] Driving pressure: [ ] P Plat: [ ] Static C: [ ] Static R: [ ] P/F Ratio: [ ] CARDIOVASCULAR: Follow hemodynamics. Titrate vasopressor to keep MAP >65 or systolic blood pressure >95mmHg DIPS: [ ] LINES: [ ] GI & NUTRITION: Continue nutritional support Aspirations precautions Prokinetic agents and laxatives as needed KIDNEYS & ELECTROLYTES: Strict monitoring of intake and output Daily weights Avoid nephrotoxic agents Monitor electrolytes and replace as needed Goal urine output of 30mL/hr or 0.5mL/kg/hr Urine output: [ ] Fluid Balance: [ ] ENDOCRINE: Maintain blood glucose between 100-180 at all times. Insulin sliding scale for blood glucose management INFECTIOUS DISEASE: Trend temperature. Caldwell-culture if febrile. Micro: [ ] Antibiotics: [ ] HEMATOLOGY & COAGULATION: Monitor H&H. Keep Hgb > 7 Transfuse 1 unit of PRBC for Hgb < 7 Transfuse 1 pack of platelets of platelets < 20, 000 Watch for any signs and symptoms of bleeding SKIN: Pressure ulcer prevention per facility protocol Rehab: PT/OT Prophylaxis: GI: [ ] DVT: [ ] Code Status: Full Resuscitation Disposition: [ ] Case was discussed and seen with my supervising physician. The above plan was formulated and agreed upon. MAGGIE JARRELL PAC Feb 15, 2025 09:45
--- NOTE | 2025-02-15 11:02 | HMCIMG ---
EXAM: CR Chest, 1 View. CLINICAL HISTORY: s/p CABG COMPARISON: 02/14/2025 FINDINGS: LUNGS: Relatively poor aeration of the left lung. The right lung remains clear. PLEURAL SPACES: No pneumothorax. Questionable left pleural effusion with adjacent lung atelectasis. MEDIASTINUM: Cardiac size is stable. Stable post-CABG changes. BONES: No aggressive appearing osseous lesion seen. IMPRESSION: Post-surgical changes with a questionable left pleural effusion and a relatively poor aeration of the left lung. /[place]
[2025-02-15 11:16] LABS: ABG BASE EXCESS 5.3 mmol/L (-2.0-3.0); ABG HCO3 28.9 mmol/L (21.0-28.0); ABG OXYGEN SATURATION 92.8 % (94.0-98.0); ABG PCO2 38 mmHg (35-48); ABG PH 7.494 (7.350-7.450); CARBON MONOXIDE 0.3 % (0.5-1.5); PO2, ARTERIAL BG 64.0 mmHg (83.0-108.0); TEMPERATURE, CELSIUS BG 37.0 CELSIUS (35.5-37.0); VENT MODE, BG 4 L NC (ROOM AIR)
--- NOTE | 2025-02-15 11:25 | NUR ---
PATIENT HAD A 5 BEAT RUN OF VTACH. PATIENT NOTED ALSO NOTED THAT HIS BP DROPPED TO THE 70'S SYSTOLIC WHEN HE HAD THE VTACH. ABG WAS DONE AND NOTED THAT HIS KK AND CALCIUM 3.43 AND 1.14 RESPECTIVELY, THET WERE IMMEDIATELY EPLACED AND RESTARTED THE VASOPRESSIN. PATIENT WAS AWAKE, ALERT WITH NO DISTRESS NOTED AND NO DISCOMFORT VERBALIZED.
--- NOTE | 2025-02-15 11:45 | NUR ---
PATIENT WAS BEING TURNED TO CLEAN AFTER HAVING A BOWEL MOVEMENT AND PATIENT HAD ANOTHER EPISODE OF VTACH . PATIENT HAD A 5 BEAT RUN OF VTACH EARLIER, ABG WAS DONE WITH LOW K AND CALCIUM. REPLACING THE ELECTROLYTES. dR. Sanchez WAS MADE AWARE OF THE ISSUE. AWAITING FOR HIM TO CALL BACK.
--- NOTE | 2025-02-15 14:03 | NUR ---
Pt with impella and IABP. PT to follow as able
[2025-02-15 14:04] LABS: ABG BASE EXCESS 3.9 mmol/L (-2.0-3.0); ABG HCO3 27.2 mmol/L (21.0-28.0); ABG OXYGEN SATURATION 92.0 % (94.0-98.0); ABG PCO2 36 mmHg (35-48); ABG PH 7.494 (7.350-7.450); CARBON MONOXIDE 0.2 % (0.5-1.5); PO2, ARTERIAL BG 61.6 mmHg (83.0-108.0); TEMPERATURE, CELSIUS BG 37.0 CELSIUS (35.5-37.0); VENT MODE, BG 4 L NC (ROOM AIR)
--- NOTE | 2025-02-15 14:48 | PN ---
[facility] PROGRESS NOTE Date of Service: Feb 15, 2025 Time of Service: 14:38 HISTORY OF PRESENT ILLNESS: This is a 74-year-old male,a [employer] by y[employer]id[employer] whith past medical history of diabetes, hyperlipidemia and NM/coronary artery disease with cardiac stent who presented to the Ed for complaints of midsternal chest pain that is non radiating associated with diaphoresis and this happened when patient was laying down in bed aroun 11:50 pm last night and decided to come to the ED for evaluation.Patient reports pain was persistent.As per patient he had a history of heart attack before and underwent a stent placement.Patient reports the only medication he is taking is Metformin.Patient states he is supposed to be on Aspirin but has stopped taking it.Patient reports he occasionally drinks beer and last drink was yesterday ,had 2 beers he said. Seen and examined patient in the ER awake,alert and coherent,appears comfortable.Patient denies fever,chills,cough,nausea,vomiting,palpitation and shortness of breath. Latest vital signs temperature 98.2, heart rate 75, blood pressure 124/70 saturation 97% on room air. Labs: CBC unremarkable. Chloride 99, BUN 21, random glucose 469 to 439 to 327. Troponin from -. ECG result revealed revealed sinus rhythm heart rate 85 with atrial premature complex anterolateral infarct age indeterminate. Second EKG result revealed sinus rhythm heart rate 73 with left anterior fascicular block. Probable anterolateral infarct age indeterminate. Abnormal T consider ischemia lateral leads.. Chest x-ray result revealed no acute cardiopulmonary process is evident. While in the ER patient received 1500 mL NS bolus, insulin 5 units IV, aspirin 325 mg p.o. and patient was started on heparin drip per ACS protocol. SUBJECTIVE: 02/10/25: Patient was seen and evaluated in ED9. Patient was alert, awake and orientedX3. Patient reports that he doesn't have any chest pain today. Patient reports occasional shortness of breath during nights. Patient denies any shortness of breath, nausea, vomiting, palpitations and lightheadedness. Patient denies any abdominal pain, burning urination. Patient mentions that he only takes metformin 3-4 times per week and has stopped taking aspirin because it wasn't reconciled. Troponin from -. 2D ECHO was done, pending results. Patient is currently on Heparin drip 02/11/25: Patient was evaluated at the bedside this morning. No overnight event. He is AAO x3. patient reported that he does not have chest pain or shortness of breath. He is hemodynamically stable. The labs remarkable for potassium 3.3, magnesium 1.6, HbA1c 13.9, troponin [id number]. Left heart catheterization revealed severe triple-vessel disease. Echocardiogram revealed 25% ejection fraction with segmental akinesis. CT surgery was consulted who recommended CABG with Impella left ventricle assist. Family to decide about the procedure. He is currently on heparin drip, aspirin. Endocrinology on board. Rest of the plan as discussed below. 02/12/25: Patient was evaluated at the bedside this morning. No overnight event. He is AAO x3. patient reported that he does not have chest pain or shortness of breath. He is hemodynamically stable. Cardiology is on board and Dr. Blanton have suggested low-dose beta estela like metoprolol tartrate 12.5 mg b.i.d. for his heart failure. Dr Kaur still recommends CABG with 5.5 Impella LVAD and the patient agrees to it. We will continue Entresto, Aldactone, Jardiance, aspirin, Lasix as per CT surgeon recommendations. Today his potassium is 3.1 and we would like to be above 4 for CABG patients. So we will replace potassium 02/13/25: Patient was seen and evaluated in room 201. Patient reports feeling better. patient denies any chest pain, shortness of breath. He is continuing on Entresto, Aldactone, Jardiance, aspirin, Lasix as per CT surgeon recommendations.Patients Potassium today is 3.7, will continue replacing potassium. Patients was present along with the patient, she has a few question about the CABG procedure which she wanted to ask Dr. Pacheco. 02/14/25. Patient was undergoing CABG procedure today in the morning. 02/15/25: Patient was seen and evaluated in room 213. Patient status post CABG day 1. Patient denies any fever, chills, shortness of breath. Patient complaints of pain along the incision. Patient is on IABP and Impella support. patient is on Vasopressin and Norepinephrine drip. Entresto, Aldactone, Jardiance were discontinued by Dr. Pacheco. CT surgery are on the case and will follow their recommendations. REVIEW OF SYSTEMS CONSTITUTIONAL: Denies fevers, chills, or night sweats. No unintentional weight loss reported. NEUROLOGICAL: Denies headache, amaurosis fugax, motor weakness, sensory deficit, vertigo/spinning sensation, gait abnormalities, or tremors. ENT: No hearing loss, otalgia, otorrhea, rhinitis, rhinorrhea, hoarseness, or sore throat. CARDIOVASCULAR: Denies chest pain, dyspnea on exertion, orthopnea, paroxysmal nocturnal dyspnea, palpitations, life-threatening arrhythmias, claudication. PULMONARY: Denies any shortness of breath, cough, phlegm/sputum, hemoptysis, pleuritic chest pain. SLEEP: Denies morning headaches, daytime somnolence or napping. Denies difficulty falling asleep, staying asleep, waking from sleep. Denies knowledge of snoring. GASTROINTESTINAL: Denies any type of dysphagia to either liquids or solids. Denies nausea, vomiting, pyrosis, early satiety, abdominal pain, diarrhea, constipation, or changes in stool consistency or caliber. Denies coffee-ground emesis, hematemesis, hematochezia, or melanotic stools. GENITOURINARY: Denies frequency, urgency, nocturia, hematuria or incontinence (Storage/Irritative symptoms.) Low urinary stream, straining to void, urinary intermittency or hesitancy, splitting of the voiding stream, terminal dribbling. ENDOCRINOLOGIC: Denies polyuria, polydipsia, polyphagia or heat/cold intolerances. HEMATOLOGIC: Denies thrombophilia/previous clots, or coagulopathy/bleeding disorders. ONCOLOGIC: Denies personal history of malignancy. DERMATOLOGIC: Denies rashes or pruritus. PSYCHIATRIC: Denies any suicidal or homicidal ideation. Denies hallucinations. PHYSICAL EXAM GENERAL APPEARANCE: The patient is awake, alert, and oriented, in no acute cardiopulmonary distress. NEUROLOGICAL: Cranial nerves II-XII grossly intact. Motor is 5/5 in bilateral upper and lower extremities proximal to distal. No sensory deficits. HEENT: Face is symmetric. Pupils are equal and reactive. Extraocular movements are intact. NECK: Supple. No JVD. No thyromegaly. No submental, submandibular, pre- /postauricular, occipital or supraclavicular lymphadenopathy. CHEST: Normal chest expansion. No Telemetry. LUNGS: Absence of any rales, rhonchi or any wheezing. CARDIOVASCULAR: Regular. S1 and S2 normal. No appreciable rubs, murmurs or g allops. ABDOMEN: Soft, nontender, and nondistended. There is no rebound, voluntary gua rding, or rigidity. : Deferred. No De Jesus. EXTREMITIES: Non-edematous and not cyanotic. No clubbing. Good capillary refill. SKIN: No skin breakdown. Vital Signs (last 8hr) Date Time Temp Pulse Resp B/P (MAP) Pulse Ox O2 Delivery O2 Flow Rate FiO2 02/15/25 11:18 104 22 N/Cannula Low lpm 4.0 36 02/15/25 09:15 101 12 125/72 (89) 93 02/15/25 09:00 99 24 145/55 (85) 94 02/15/25 08:45 95 21 131/51 (77) 96 02/15/25 08:30 101 10 121/74 (90) 94 02/15/25 08:15 92 14 115/49 (71) 94 02/15/25 08:00 95 22 127/63 (84) 94 02/15/25 08:00 97.9 02/15/25 07:45 96 29 127/58 (81) 95 02/15/25 07:30 97 Nasal Cannula* 4 36 02/15/25 07:30 98 22 135/61 (85) 93 02/15/25 07:15 105 24 129/56 (80) 92 02/15/25 07:00 101 11 135/72 (93) 93 02/15/25 06:53 98 22 N/Cannula Low lpm 4.0 36 LABS: Laboratory: Test 02/15/25 14:02 02/15/25 13:02 02/15/25 11:24 02/15/25 05:35 Range/Units Blood Gas Specimen Type Arterial Arterial Blood pH 7.494 H 7.350-7.450 Arterial Blood Partial Pressure CO2 36 35-48 mmHg Arterial Blood Partial Pressure O2 61.6 L 83.0-108.0 mmHg Arterial Blood HCO3 27.2 21.0-28.0 mmol/L Arterial Blood Oxygen Saturation 92.0 L 94.0-98.0 % Arterial Blood Base Excess 3.9 H -2.0-3.0 mmol/L Hemoglobin (Blood Gas) 10.5 L 13.5-17.5 g/dL Sodium (Blood Gas) 142 136-145 MMOL/L Bedside Potassium (Blood Gas) 3.8 3.4-4.5 MMOL/L Bedside Chloride (Blood Gas) 106 98-107 MMOL/L Bedside Glucose (Blood Gas) 125 H 65-95 MG/DL Bedside Ionized Calcium (Blood Gas) 1.16 1.15-1.33 MMOL/L Bedside Lactic Acid (Blood Gas) 1.64 H 0.36-0.75 MMOL/L Blood Gas Temperature 37.0 35.5-37.0 CELSIUS Blood Gas Flow-by 4.00 0.00-15.00 L/min Blood Gas Vent Mode 4 L NC ROOM AIR FiO2 36.0 % Blood Gas Specimen Comment HIWOT JEAN RN Whole Blood Glucose 117 H 70-110 MG/DL Potassium Level 3.6 3.5-5.1 mmol/L Magnesium Level 2.00 1.80-2.40 mg/dL White Blood Count 18.6 H 4.8-10.8 K/uL Red Blood Count 3.51 L 4.50-6.20 MIL/uL Hemoglobin 10.6 L 14.0-18.0 g/dL Hematocrit 30.7 L 42-54 % Mean Corpuscular Volume 87.5 79-99 fL Mean Corpuscular Hemoglobin 30.2 27.0-33.0 pg Mean Corpuscular Hemoglobin Concent 34.5 32.0-36.0 g/dL Red Cell Distribution Width 14.4 11.0-15.5 % Platelet Count 160 130-400 K/uL Mean Platelet Volume 12.1 H 7.5-10.5 fL Nucleated Red Blood Cells 0.0 0.0-0.19 % Prothrombin Time 11.5 9.6-11.6 SEC Prothromb Time International Ratio 1.09 0.85-1.15 Activated Partial Thromboplast Time 28.3 26.3-35.5 SEC Sodium Level 151 H 136-145 mmol/L Chloride Level 109 101-111 mmol/L Carbon Dioxide Level 31 21-32 mmol/L Blood Urea Nitrogen 18 7-18 mg/dL Creatinine 1.2 0.5-1.3 mg/dL Glomerular Filtration Rate Calc 63 >90 mL/min Random Glucose 118 H 70-105 mg/dL Total Calcium 9.0 8.5-10.1 mg/dL Ionized Calcium 1.10 L 1.15-1.33 MMOL/L Phosphorus Level 4.6 2.5-4.9 mg/dL Test 02/14/25 20:11 02/14/25 18:26 02/14/25 05:21 02/13/25 16:06 Range/Units Blood Gas PEEP 5 cm H2O Blood Gas CPAP 10 cm H2O Blood Gas Respiration Rate 6.0 min. Blood Gas Tidal Volume 650 ml Immature Granulocyte % (Auto) 0.4 0-1 % Neutrophils (%) (Auto) 56.7 40.0-77.0 % Lymphocytes (%) (Auto) 29.1 21.0-51.0 % Monocytes (%) (Auto) 9.3 3.0-13.0 % Eosinophils (%) (Auto) 3.8 0.0-8.0 % Basophils (%) (Auto) 0.7 0.0-5.0 % Neutrophils # (Auto) 6.0 1.8-7.7 K/uL Lymphocytes # (Auto) 3.1 1.0-4.8 K/uL Monocytes # (Auto) 1.0 0.1-1.0 K/uL Eosinophils # (Auto) 0.40 0.00-0.70 K/uL Basophils # (Auto) 0.07 0.00-0.20 K/uL Absolute Immature Granulocyte (auto 0.04 0-1 K/uL Total Bilirubin 2.0 H 0.2-1.0 mg/dL Aspartate Amino Transf (AST/SGOT) 30 10-37 U/L Alanine Aminotransferase (ALT/SGPT) 32 12-78 U/L Alkaline Phosphatase 80 50-136 U/L Total Protein 7.8 6.0-8.3 g/dL Albumin 3.8 3.5-5.0 g/dL Triglycerides Level 100 30-200 mg/dL Cholesterol Level 187 # <200 mg/dL LDL Cholesterol 107 H 0-99 mg/dL HDL Cholesterol 63 29-71 mg/dL Bedside Glucose Comment Notified Nurse Current Medications Medications (Trade) Dose Ordered Sig/Carol Route PRN Reason Start Time Stop Time Status Last Admin Dose Admin Acetaminophen (TYLenol 325MG TAB) 650 mg Q4H PRN PO MILD PAIN (1-3) 02/10/25 05:00 02/14/25 10:05 DC Acetaminophen (TYLenol 325MG TAB) 650 mg Q4H PRN PO Temp >38.3C(AFTER EXTUBATION) 02/14/25 10:00 03/16/25 09:59 Acetaminophen (TYLenol 325MG TAB) 650 mg Q6H PRN PO TEMPERATURE GREATER THAN 101.5 02/10/25 05:00 02/14/25 10:17 DC 02/12/25 17:13 650 MG Acetaminophen (TYLenol 325MG TAB) 650 mg Q6H PRN PO MILD PAIN (1-3) 02/14/25 10:00 03/16/25 09:59 Acetaminophen (TYLenol 650MG SUPPOSITORY) 650 mg Q4H PRN RC Temp >38.3C WHILE INTUBATED 02/14/25 10:00 03/16/25 09:59 Acetaminophen (acetaMINOPHEN 1,000MG/100ML) 1,000 mg Q6H6 IV 02/14/25 14:00 02/15/25 13:59 DC 02/15/25 12:14 1,000 MG Albumin Human 250 ml @ 0 mls/hr AD IV 02/14/25 15:30 02/19/25 15:29 Albumin Human 250 ml @ 0 mls/hr AD PRN IV IF HEMODYNAMICALLY UNSTABLE 02/14/25 10:00 02/14/25 14:42 DC 02/14/25 14:42 500 MLS/HR Aminocaproic Acid 72167 mg/Sodium Chloride 310 ml @ 25 mls/hr AD IV 02/14/25 10:00 02/14/25 10:19 DC Aminocaproic Acid 96608 mg/Sodium Chloride 480 ml @ 0 mls/hr AD PRN IV BLEEDING CONTROL 02/14/25 06:30 03/16/25 06:29 Aminocaproic Acid 86235 mg/Sodium Chloride 480 ml @ 0 mls/hr AD PRN IV BLEEDING CONTROL 02/14/25 07:00 02/14/25 06:51 DC Aspirin (Aspirin 325mg Tab) 325 mg ONCE PO 02/10/25 14:30 02/10/25 17:22 DC 02/10/25 14:32 325 MG Aspirin (Aspirin 81mg Ec Tab) 81 mg DAILY PO 02/10/25 09:00 03/12/25 08:59 02/15/25 09:20 81 MG Atorvastatin Calcium (LIPItor 40MG) 40 mg HS PO 02/14/25 21:00 03/16/25 20:59 02/14/25 22:55 40 MG Calcium Gluconate 1 gm/Sodium Chloride 60 ml @ 200 mls/hr AD PRN IV HYPOCALCEMIA 02/14/25 10:00 03/16/25 09:59 02/15/25 14:09 200 MLS/HR Cefazolin Sodium (Ancef) 2 gm ONCALL IVP 02/13/25 20:00 02/14/25 18:51 DC 02/14/25 08:50 2 GM Cefazolin Sodium (Ancef) 2 gm Q8H IVPB 02/14/25 15:00 02/15/25 07:01 DC 02/15/25 06:25 2 GM Clopidogrel Bisulfate (plaVIX 300MG TAB) 600 mg ONCE PO 02/10/25 14:00 02/10/25 17:22 DC 02/10/25 14:19 600 MG Clopidogrel Bisulfate (plaVIX 75MG) 75 mg DAILY PO 02/11/25 09:00 02/11/25 07:28 DC Dexmedetomidine/ Sodium Chloride (PRECEdex 400MCG/ 100ML-NS) 400 mcg PROTOCOL IV 02/14/25 10:00 02/15/25 09:59 DC Dextrose (D50w) 50 ml AD PRN IV HYPOGLYCEMIA PROTOCOL 02/10/25 05:00 02/14/25 10:17 DC Dextrose (D50w) 50 ml AD PRN IV HYPOGLYCEMIA PROTOCOL 02/14/25 10:00 03/16/25 09:59 Docusate Sodium (COLace 100MG CAP) 100 mg BID PO 02/14/25 21:00 03/16/25 20:59 02/15/25 09:20 100 MG Empaglifozin (Jardiance 10mg) 10 mg DAILY PO 02/10/25 14:30 02/14/25 09:59 DC 02/13/25 10:52 10 MG Enoxaparin Sodium (Lovenox) 30 mg DAILY SQ 02/17/25 09:00 03/19/25 08:59 Epinephrine HCl 10 mg/Sodium Chloride 250 ml @ 0 mls/hr AD PRN IV TITRATE 02/14/25 06:30 03/16/25 06:29 Epinephrine HCl 10 mg/Sodium Chloride 250 ml @ 0 mls/hr AD PRN IV TITRATE 02/14/25 07:00 02/14/25 06:51 DC Epinephrine HCl 10 mg/Sodium Chloride 250 ml @ 0 mls/hr AD PRN IV POST-OP CARDIOVASCULAR ORDERS 02/14/25 10:00 02/14/25 10:14 DC Famotidine (Pepcid 20mg Vial) 20 mg BID IV 02/14/25 21:00 03/16/25 20:59 02/15/25 09:20 20 MG Famotidine (Pepcid 20mg Tab) 20 mg DAILY PO 02/10/25 09:00 02/14/25 09:59 DC 02/13/25 10:53 20 MG Furosemide (LASix 20MG TAB) 20 mg DAILY PO 02/11/25 09:00 02/14/25 09:59 DC 02/13/25 10:52 20 MG Furosemide (LASix 20MG TAB) 20 mg Q12H PO 02/16/25 09:00 03/18/25 08:59 Furosemide (LASix 20MG VIAL) 20 mg ONCE IV 02/10/25 17:00 02/10/25 21:00 DC 02/10/25 17:00 20 MG Furosemide (LASix 20MG VIAL) 20 mg ONCE IV 02/11/25 09:00 02/11/25 07:43 DC Furosemide (LASix 20MG VIAL) 20 mg Q12H IV 02/15/25 09:00 02/16/25 08:59 02/15/25 09:20 20 MG Glucagon (Glucagon 1mg Kit) 1 mg AD PRN IM HYPOGLYCEMIA PROTOCOL 02/10/25 05:00 02/14/25 10:17 DC Glucagon (Glucagon 1mg Kit) 1 mg AD PRN IM HYPOGLYCEMIA PROTOCOL 02/14/25 10:00 03/16/25 09:59 Heparin Sodium (Porcine) (HEParin 5,000 UNIT VIAL) *calculation based on ACTUAL B... AD PRN IV HEPARIN PROTOCOL 02/12/25 21:00 02/14/25 09:59 DC 02/12/25 20:16 4,000 UNIT Heparin Sodium/ Dextrose 250 ml @ 0 mls/hr PROTOCOL IV 02/10/25 03:00 02/10/25 17:22 DC 02/10/25 03:00 16.2 MLS/HR Heparin Sodium/ Dextrose 250 ml @ 0 mls/hr Q6H IV 02/11/25 06:30 02/14/25 09:59 DC 02/13/25 13:01 9 MLS/HR Insulin Glargine (LANtus 100 UNITS/ML 10 ML VIAL) 12 units DAILY08 SQ 02/13/25 08:00 02/14/25 09:59 DC 02/13/25 10:51 12 UNITS Insulin Glargine (LANtus 100 UNITS/ML 10 ML VIAL) 15 units DAILY08 SQ 02/11/25 08:00 02/13/25 05:24 DC 02/12/25 08:54 15 UNITS Insulin Human Regular (humuLIN R 100 UNIT/ML 3ML) 3 unit TIDAC SQ 02/12/25 07:30 02/14/25 09:59 DC 02/12/25 16:31 3 UNIT Insulin Human Regular (humuLIN R 100 UNIT/ML 3ML) INSULIN SLIDING SCAL... Q4H SQ 02/10/25 05:00 02/10/25 11:10 DC 02/10/25 09:15 6 UNIT Insulin Human Regular (humuLIN R 100 UNIT/ML 3ML) INSULIN SLIDING SCAL... Q6H6 SQ 02/10/25 12:00 02/14/25 09:59 DC 02/11/25 17:29 2 UNIT Insulin Human Regular 100 unit/ Sodium Chloride 100 ml @ 0 mls/hr AD IV 02/14/25 10:00 02/16/25 09:59 02/15/25 06:30 3 MLS/HR Lactulose (Constulose 20gm/ 30ml Udcup) 20 gm BID PRN PO CONSTIPATION 02/14/25 10:00 03/16/25 09:59 Magnesium Hydroxide (Milk Of Magnesium 30ml) 30 ml DAILY PRN PO CONSTIPATION 02/14/25 10:00 03/16/25 09:59 Magnesium Sulfate 50 ml @ 12.5 mls/hr AD PRN IV MAG LEVEL LESS THAN 2.0 02/14/25 10:00 03/16/25 09:59 02/15/25 12:14 12.5 MLS/HR Magnesium Sulfate 50 ml @ 0 mls/hr PROTOCOL PRN IV OTHER [SEE ORDER COMMENTS] 02/10/25 05:00 02/14/25 10:17 DC 02/12/25 07:13 25 MLS/HR Metoprolol Tartrate (loprESSOR) 12.5 mg BID PO 02/12/25 09:00 02/14/25 09:59 DC 02/14/25 06:44 12.5 MG Metoprolol Tartrate (loprESSOR) 12.5 mg BID PO 02/16/25 09:00 03/18/25 08:59 Morphine Sulfate (morPHINE 2MG SYG) 0.5 mg Q2H PRN IV MODERATE PAIN (4-6) IF NPO 02/14/25 10:00 02/15/25 09:59 DC Morphine Sulfate (morPHINE 2MG SYG) 1 mg Q2H PRN IV SEVERE PAIN (7-10) IF NPO 02/14/25 10:30 02/21/25 10:29 02/14/25 14:23 1 MG Nitroglycerin (Nitrostat) 0.4 mg PROTOCOL PRN SL CHEST PAIN 02/10/25 05:00 02/14/25 09:59 DC Nitroglycerin/ Dextrose 0 ml @ 0 mls/hr AD IV 02/14/25 10:00 02/17/25 09:59 Norepinephrine Bitartrate 250 ml @ 0 mls/hr AD PRN IV TITRATE 02/14/25 06:30 03/16/25 06:29 Norepinephrine Bitartrate 250 ml @ 0 mls/hr AD PRN IV TITRATE 02/14/25 07:00 02/14/25 06:51 DC Norepinephrine Bitartrate 8 mg/ Dextrose 250 ml @ 0 mls/hr AD PRN IV POST-OP CARDIOVASCULAR ORDERS 02/14/25 10:00 02/14/25 10:14 DC Ondansetron HCl (zoFRAN 4MG INJ) 4 mg Q6H PRN IV NAUSEA/VOMITING 02/10/25 05:00 02/14/25 10:17 DC Ondansetron HCl (zoFRAN 4MG INJ) 4 mg Q6H PRN IV NAUSEA/VOMITING 02/14/25 10:00 03/16/25 09:59 Pharmacy Profile Note (Pharmacy Communication) 1 each ONCE MISC 02/14/25 18:00 02/14/25 18:27 DC Potassium Phosphate 250 ml @ 42 mls/hr AD PRN IV LOW PHOS LEVEL 02/14/25 10:00 03/16/25 09:59 Potassium Chloride 100 ml @ 100 mls/hr AD PRN IV POTASSIUM PROTOCOL 02/10/25 05:00 02/15/25 06:27 DC 02/15/25 05:43 100 MLS/HR Potassium Chloride 100 ml @ 100 mls/hr AD PRN IV HYPOKALEMIA 02/14/25 10:00 03/16/25 09:59 02/15/25 14:10 100 MLS/HR Potassium Chloride (K-Dur/Klor-Con 20meq) 20 meq AD PRN PO POTASSIUM PROTOCOL 02/10/25 05:00 03/12/25 04:59 02/13/25 05:45 20 MEQ Potassium Chloride (KCl 10% Elixir 20meq/15ml) 20 meq AD PRN PO POTASSIUM PROTOCOL 02/10/25 05:00 03/12/25 04:59 Propofol 100 ml @ 0 mls/hr AD PRN IV SEDATION 02/14/25 10:00 02/18/25 09:59 Sacubitril/ Valsartan (Entresto 24 Mg-26 Mg Tablet) 0.5 each BID PO 02/10/25 21:00 02/14/25 09:59 DC 02/13/25 21:11 0.5 EACH Sodium Bicarbonate 25 meq/Dextrose 1,025 ml @ 0 mls/hr Q0M IV 02/14/25 18:00 03/16/25 17:59 02/14/25 18:19 0 MLS/HR Sodium Bicarbonate (Sodium Bicarb 50meq 50ml Vial) 50 meq AD PRN IV OTHER[SEE DOSING INSTRUCTIONS] 02/14/25 10:00 02/17/25 09:59 02/14/25 18:40 50 MEQ Sodium Chloride 500 ml @ 0 mls/hr AD IV 02/14/25 10:00 03/16/25 09:59 Sodium Chloride 1,000 ml @ 10 mls/hr ONCE IV 02/14/25 10:00 02/15/25 09:59 DC Sodium Chloride 1,000 ml @ 100 mls/hr Q10H IV 02/10/25 05:00 02/10/25 17:22 DC 02/10/25 14:20 100 MLS/HR Sodium Chloride (NS Flush 10ml) 10 ml Q8H PRN IVP IV LINE FLUSH 02/14/25 10:00 03/16/25 09:59 Spironolactone (Aldactone 25mg) 25 mg DAILY PO 02/10/25 14:30 02/14/25 09:59 DC 02/13/25 10:52 25 MG Tramadol HCl (UltRAM) 25 mg Q6H PRN PO MODERATE PAIN (4-6) 02/14/25 10:00 02/19/25 09:59 Tramadol HCl (UltRAM) 50 mg Q6H PRN PO SEVERE PAIN (7-10) 02/14/25 10:00 02/19/25 09:59 Vasopressin 40 units/Sodium Chloride 40 ml @ 0 mls/hr PROTOCOL IV 02/14/25 13:00 03/16/25 12:59 02/14/25 22:11 1.8 MLS/HR DIAGNOSTICS / RADIOLOGY: [address] [address] IMAGING REPORT Signed PATIENT: EMMY GRACE MR#: [id number] : 1950 SEX: M AGE: 74 LOCATION: 2CV ORDER 2300 STATUS: ADM IN REPORT#: [id number] SERVICE 0400 REASON: s/p CABG ORDERING PHYSICIAN: FRANKY PACHECO MD PROCEDURE: CXR1VW - CHEST 1VW EXAM: CR Chest, 1 View. CLINICAL HISTORY: s/p CABG COMPARISON: 02/14/2025 FINDINGS: LUNGS: Relatively poor aeration of the left lung. The right lung remains clear. PLEURAL SPACES: No pneumothorax. Questionable left pleural effusion with adjacent lung atelectasis. MEDIASTINUM: Cardiac size is stable. Stable post-CABG changes. BONES: No aggressive appearing osseous lesion seen. IMPRESSION: Post-surgical changes with a questionable left pleural effusion and a relatively poor aeration of the left lung. /[place] DICTATED BY: LAN BURR Jr., MD DATE: 02/15/25 120 ELECTRONICALLY SIGNED BY: LAN BURR Jr., MD DATE: 02/15/25 1201 ASSESSMENT: Chest pain rule out ACS: NSTEMI POA Hyperglycemia secondary to uncontrolled diabetes POA Hyperlipidemia POA Medication noncompliance, POA Obesity POA NM/Coronary artery disease with cardiac stent POA PLAN: NSTEMI POA: * EKG was done which revealed sinus rhythm heart rate 85 with atrial premature complex anterolateral infarct age indeterminate. Second EKG result revealed sinus rhythm heart rate 73 with left anterior fascicular block. Probable anterolateral infarct age indeterminate. Abnormal T consider ischemia lateral leads. * PERC score was one, Wells score was zero. Very low suspicion for Pulmonary Embolism. * Chest x-ray done on 02/14/25 show, postsurgical changes with mild left perihilar atelectasis * 2-D ECHO with ejection fraction 25% with segmental akinesis (apical, apical lateral, anteroapical), LDL 89, BNP 488 * Troponin trends 21>[id number] * Left heart catheterization revealed severe three-vessel CAD with occluded mid LAD, 90% proximal left circumflex, 95% distal RCA, and 90% ostial PDA. * As per CT surgeon recommendations Entresto 0.5 each, Aldactone 25mg, Jardiance 10mg were held. 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 * On aspirin 81 mg p.o. along with Furosemide 20mg. * Currently on Vasopressin and Norepinephrine drip. * Patient was started on Lovenox 30mg. Hyperglycemia secondary to uncontrolled diabetes POA: * HbA1c 13.9, blood glucose 181 * Following the Endocrinology recommendations. He is on Lantus 15 units, low- dose sliding scale insulin and Jardiance 10 mg * We will monitor blood glucose. Hypokalemia Hypomagnesemia Potassium 3.1, magnesium 1.6 We will replete the electrolytes and monitor We want potassium to be minimum of 4-4.5 for CABG patients Ordered 2 doses of potassium 40 mEq per mL once. We will start Slow-Mag oral t.i.d. once and will keep monitoring magnesium levels. Supportive measures * GI prophylaxis with Famotidine * DVT prophylaxis with SCD's. Already on Heparin. ATTESTATION BY PHYSICIAN I have seen and examined the patient. I reviewed the documentation, medical decision making, and treatment plan as noted by the resident physician above. I agree with the findings and plan of care. DIANNE STEELE MD, SHAJI MD Feb 15, 2025 14:48
--- NOTE | 2025-02-15 15:48 | NUR ---
DR. PACHECO CAME AND HAS RECEIVED THE PATIENT'S BALLOON PUMP, THEN PRESSURE WAS APPLED BY MAGGIE ROSALES RN. Addendum: 02/15/25 at 1746 by TED GARCIA RN RN CORRECTION: DR PACHECO REMOVED THE BALLOON PUMP.
--- NOTE | 2025-02-15 16:30 | NUR ---
R GROIN SITE WAS SOFT TO TOUCH, NO HEMATOMA NOTED AFTER THE PRESSURE WAS APPLIED FOR 30 MINUTES POST REMOVAL OF IABP, BOTH PEDAL AND POSTERIOR TIBIAL PULSES WERE NOTED BY DOPPLER , PATIENT WAS INSTRUCTED TO REMAIN ON BEDREST FOR 4 HOURS . WILL CONTINUE TO MONITOR. hIS LEFT GROIN AREA REMAINED BULGING FROM HIS INGUINAL HERNIA. WILL CONTINUE TO MONITOR.
[2025-02-15 16:31] LABS: ABG BASE EXCESS 4.8 mmol/L (-2.0-3.0); ABG HCO3 28.1 mmol/L (21.0-28.0); ABG OXYGEN SATURATION 92.6 % (94.0-98.0); ABG PCO2 37 mmHg (35-48); ABG PH 7.500 (7.350-7.450); CARBON MONOXIDE 0.3 % (0.5-1.5); PO2, ARTERIAL BG 63.4 mmHg (83.0-108.0); TEMPERATURE, CELSIUS BG 37.0 CELSIUS (35.5-37.0); VENT MODE, BG 5 L NC (ROOM AIR)
--- NOTE | 2025-02-15 17:54 | NUR ---
NOTED THAT PATIENT IS GETTING DISORIENTED AND CONFUSED BUT NO AGITATION NOTED. PATIENT WAS THEN REORIENTED TO HIS ENVIRONMENT .
[2025-02-15 18:50] LABS: ABG BASE EXCESS 3.9 mmol/L (-2.0-3.0); ABG HCO3 27.1 mmol/L (21.0-28.0); ABG OXYGEN SATURATION 96.0 % (94.0-98.0); ABG PCO2 35 mmHg (35-48); ABG PH 7.504 (7.350-7.450); CARBON MONOXIDE 0.3 % (0.5-1.5); PO2, ARTERIAL BG 78.8 mmHg (83.0-108.0); TEMPERATURE, CELSIUS BG 37.0 CELSIUS (35.5-37.0); VENT MODE, BG NC (ROOM AIR)
[2025-02-16] VITALS (98 sets, daily range): BP systolic 72–143; BP diastolic 40–77; PULSE 97–112; RESP 4–57; TEMP 98.2–100.2; O2SAT 97–99
[2025-02-16 04:39] LABS: NUCLEATED RED BLOOD CELLS 0.0 % (0.0-0.19); PLATELET COUNT (AUTO) 122.0 K/uL (130-400); RED BLOOD CELL COUNT(AUTO) 2.85 MIL/uL (4.50-6.20); RED CELL DISTRIBUTION WIDTH 14.7 % (11.0-15.5); WHITE BLOOD COUNT (AUTO) 21.0 K/uL (4.8-10.8)
[2025-02-16 05:03] LABS: CREATININE 1.1 mg/dL (0.5-1.3); GLOMERULAR FILTR. RATE CALC 70.0 mL/min (>90); GLUCOSE,RANDOM 148.0 mg/dL (70-105); SODIUM SERUM 142.0 mmol/L (136-145); UREA NITROGEN, BLOOD 19.0 mg/dL (7-18)
--- NOTE | 2025-02-16 05:39 | NUR ---
Physician Update Spoke with Dr. Hipolito Alexis in regard to patient's drop in hemoglobin and tachycardic baseline. Notified MD that the hemoglobin went from 10.6 to 8.5 in this AM's labs. In addition, MD was updated on patient being tachycardic in the 105s range. MD stated that the patient is a Yazidi and to discontinue all upcoming labs except to have an ABG done every 4 hours. Orders were read back and confirmed and placed in the EMR.
--- NOTE | 2025-02-16 06:45 | PN ---
SUBJECTIVE: Status post status post CABG, depressed ventricular function. Impella supported L 5.5. Intraaortic balloon pump. Postoperative day #1. OBJECTIVE: GENERAL: Awake, in no acute distress. VITAL SIGNS: Stable as recorded in the medical record. CARDIAC: The patient is extubated, hemodynamically stable on P4. Intraaortic balloon pump is 1-3. The patient has good urinary output. Pulses are present. Sternum is stable. Heart sounds are crisp. LUNGS: Clear. ASSESSMENT: Status post coronary artery bypass graft. * Coronary artery disease. Aspirin 81 mg. * Deep vein thrombosis prophylaxis, sequential compression devices as well in bed. * Depressed ventricular function. The patient has poor ventricular function secondary to a large anterolateral infarction status post revascularization with the use of an Impella L 5.5. The flow was dropped to P4, flowing approximately 2 liters. Intraaortic balloon pump is removed today. Pulses present on the extremity with the balloon. The aortic conduit is on the supraclavicular area on the left side and the incision is sealed. PLAN: * Discontinue intraaortic balloon pump. * Wean Impella. * Out of bed in a chair tomorrow. Encourage deep breathing and coughing. TID: [id number] RECEIPT: [id number]
[2025-02-16 07:29] LABS: ABG BASE EXCESS 0.2 mmol/L (-2.0-3.0); ABG HCO3 22.8 mmol/L (21.0-28.0); ABG OXYGEN SATURATION 95.4 % (94.0-98.0); ABG PCO2 29 mmHg (35-48); ABG PH 7.509 (7.350-7.450); CARBON MONOXIDE 0.1 % (0.5-1.5); DEVICE COMMENT RN BRIZA; PO2, ARTERIAL BG 78.3 mmHg (83.0-108.0); TEMPERATURE, CELSIUS BG 37.0 CELSIUS (35.5-37.0); VENT MODE, BG NC (ROOM AIR)
[2025-02-16] MEDS: FAMOTIDINE 20MG TAB PO SCH (08:19)
[2025-02-16] MEDS ORDERED: RENAL DOSE IV ONE (10:30)
--- NOTE | 2025-02-16 10:36 | PN ---
[facility] PROGRESS NOTE Date Patient Seen: Feb 16, 2025 Time of Visit: 10:33 Supervising Physician: Dr Alyssa Carrillo Primary Care Physician: [ ] Outpatient Specialists: [ ] Inpatient Consults: [ ] PROBLEM LIST: CAD, status post CABG x3 Impella and a intra-aortic balloon pump support Type 2 diabetes Congested heart failure EF 20% INTERVAL HISTORY: Patient was seen and examined, patient is resting comfortably in bed, reporting his pain controlled He is postop day 2., the balloon pump was removed yesterday Continues on the Impella at P4 Nasal cannula at 5 L, minimal IS effort, attempting to encourage, chest x-ray reveals continued atelectasis more on the right congestion left He continues on epi Chest tube 100/12, urine output 1.4/12 Plan: Follow CT surgeon recs/protocol I&Os Weaning pressors Follow chest x-rays PT/OT when able Total critical care time spent 51 minutes, time excludes any procedures or educational time REVIEW OF SYSTEMS: 12 point ROS reviewed with patient. Pertinent positives mentioned above. Otherwise negative. PHYSICAL EXAM: GENERAL: Patient comfortable in bed, HEENT: EOMI, Sclera non icteric, moist mucosa NECK: Supple, no JVD, trachea midline LUNGS: Clear breath sounds bilaterally. No wheezes HEART: Regular rate and rhythm. Normal S1 and S2, without murmurs ABD: Abdomen soft, nontender. Bowel sounds present EXT: No clubbing cyanosis or edema NEURO: Awake alert and oriented Vital Signs (last 8hr) Date Time Temp Pulse Resp B/P (MAP) Pulse Ox O2 Delivery O2 Flow Rate FiO2 02/16/25 09:00 108 6 98/50 (66) 98 110/64 (79) 02/16/25 08:45 108 9 96/49 (65) 98 112/69 (83) 02/16/25 08:30 108 8 96/50 (65) 97 112/54 (73) 02/16/25 08:15 106 36 100/49 (66) 100 105/55 (72) 02/16/25 08:00 99 Nasal Cannula* 5 40 02/16/25 08:00 98.6 Nasal Cannula 5.0 40 02/16/25 08:00 108 12 98/50 (66) 99 96/56 (69) 02/16/25 07:45 108 22 103/52 (69) 98 111/69 (83) 02/16/25 07:30 107 14 107/47 (67) 100 104/57 (73) 02/16/25 07:15 106 15 88/45 (59) 98 94/55 (68) 02/16/25 07:03 110 26 N/Cannula Low lpm 5.0 40 02/16/25 07:00 110 15 94/42 (59) 96 111/76 (88) 02/16/25 06:45 109 16 97 121/71 (88) 02/16/25 06:30 109 26 98 102/77 (85) 02/16/25 06:15 110 19 98 117/65 (82) 02/16/25 06:00 110 23 98/49 (65) 98 40 118/66 (83) 02/16/25 05:45 109 28 97 134/75 (94) 02/16/25 05:30 108 26 99 112/70 (84) 02/16/25 05:15 109 25 99 109/73 (85) 02/16/25 05:00 110 16 104/50 (68) 98 40 95/68 (77) 02/16/25 04:45 109 27 99 114/62 (79) 02/16/25 04:30 109 18 98 113/64 (80) 02/16/25 04:15 109 19 97 134/46 (75) 02/16/25 04:00 98.2 Nasal Cannula 5.0 40 02/16/25 04:00 98.2 108 25 112/46 (68) 98 40 109/62 (78) 02/16/25 04:00 98 Nasal Cannula* 5 40 02/16/25 03:45 109 22 99 115/63 (80) 02/16/25 03:30 108 17 97 103/72 (82) 02/16/25 03:15 109 16 96 106/73 (84) 02/16/25 03:00 108 19 102/48 (66) 96 40 106/57 (73) 02/16/25 02:45 110 17 97 92/73 (79) LABS: Hematology Labs: Test 02/16/25 04:29 Range/Units White Blood Count 21.0 H 4.8-10.8 K/uL Red Blood Count 2.85 L 4.50-6.20 MIL/uL Hemoglobin 8.5 L 14.0-18.0 g/dL Hematocrit 25.1 L 42-54 % Mean Corpuscular Volume 88.1 79-99 fL Mean Corpuscular Hemoglobin 29.8 27.0-33.0 pg Mean Corpuscular Hemoglobin Concent 33.9 32.0-36.0 g/dL Red Cell Distribution Width 14.7 11.0-15.5 % Platelet Count 122 L 130-400 K/uL Mean Platelet Volume 11.4 H 7.5-10.5 fL Nucleated Red Blood Cells 0.0 0.0-0.19 % Chemistry Labs: Test 02/16/25 04:29 02/15/25 05:35 Range/Units Sodium Level 142 136-145 mmol/L Potassium Level 4.1 3.5-5.1 mmol/L Chloride Level 104 101-111 mmol/L Carbon Dioxide Level 26 21-32 mmol/L Blood Urea Nitrogen 19 H 7-18 mg/dL Creatinine 1.1 0.5-1.3 mg/dL Glomerular Filtration Rate Calc 70 >90 mL/min Whole Blood Glucose 139 H 70-110 MG/DL Random Glucose 148 H 70-105 mg/dL Total Calcium 9.0 8.5-10.1 mg/dL Ionized Calcium 1.10 L 1.15-1.33 MMOL/L Magnesium Level 1.90 1.80-2.40 mg/dL Phosphorus Level 4.6 2.5-4.9 mg/dL Coagulation Labs: Test 02/15/25 05:35 Range/Units Prothrombin Time 11.5 9.6-11.6 SEC Prothromb Time International Ratio 1.09 0.85-1.15 Activated Partial Thromboplast Time 28.3 26.3-35.5 SEC DIAGNOSTICS / RADIOLOGY RESULTS: [ ] PLAN NEURO: Minimize central acting medications as possible. Fall Precautions. Well lighted room through the day and minimize interruptions through the night to prevent acute delirium. PULMONARY: Supplemental 02 as needed Titrate Fio2 to keep Spo2 > or = 90% DuoNebs and CPT as needed IS hourly while awake for pulmonary hygiene Out of bed to chair as tolerated VAP Bundle Vent/BIPAP Settings: [ ] Driving pressure: [ ] P Plat: [ ] Static C: [ ] Static R: [ ] P/F Ratio: [ ] CARDIOVASCULAR: Follow hemodynamics. Titrate vasopressor to keep MAP >65 or systolic blood pressure >95mmHg DIPS: [ ] LINES: [ ] GI & NUTRITION: Continue nutritional support Aspirations precautions Prokinetic agents and laxatives as needed KIDNEYS & ELECTROLYTES: Strict monitoring of intake and output Daily weights Avoid nephrotoxic agents Monitor electrolytes and replace as needed Goal urine output of 30mL/hr or 0.5mL/kg/hr Urine output: [ ] Fluid Balance: [ ] ENDOCRINE: Maintain blood glucose between 100-180 at all times. Insulin sliding scale for blood glucose management INFECTIOUS DISEASE: Trend temperature. Caldwell-culture if febrile. Micro: [ ] Antibiotics: [ ] HEMATOLOGY & COAGULATION: Monitor H&H. Keep Hgb > 7 Transfuse 1 unit of PRBC for Hgb < 7 Transfuse 1 pack of platelets of platelets < 20, 000 Watch for any signs and symptoms of bleeding SKIN: Pressure ulcer prevention per facility protocol Rehab: PT/OT Prophylaxis: GI: [ ] DVT: [ ] Code Status: Full Resuscitation Disposition: [ ] Case was discussed and seen with my supervising physician. The above plan was formulated and agreed upon. MAGGIE JARRELL PAC Feb 16, 2025 10:36
[2025-02-16] MEDS: SODIUM CHLORIDE 3% FOR INHALATION 4 ML/AMP VIAL.NEB IH ONE ×3 (10:53→19:16)
[2025-02-16 10:59] LABS: ABG BASE EXCESS -1.4 mmol/L (-2.0-3.0); ABG HCO3 21.2 mmol/L (21.0-28.0); ABG OXYGEN SATURATION 95.2 % (94.0-98.0); ABG PCO2 28 mmHg (35-48); ABG PH 7.498 (7.350-7.450); CARBON MONOXIDE 0.2 % (0.5-1.5); DEVICE COMMENT RN BRIZA; PO2, ARTERIAL BG 75.2 mmHg (83.0-108.0); TEMPERATURE, CELSIUS BG 37.0 CELSIUS (35.5-37.0); VENT MODE, BG NC (ROOM AIR)
--- NOTE | 2025-02-16 11:34 | PN ---
[facility] CARDIOLOGY PROGRESS NOTE Cardiology progress note dictated for Marcela Smith MD Date Patient Seen: Feb 16, 2025 Time of Visit: 11:20 Interval History: s/p Impella assisted CABG Physical Examination: GENERAL: No acute distress. HEAD: Normal with no signs of head trauma. EYES: conjunctiva and sclera normal. NECK: Supple without JVD. Rt SBCV central line. Lt SBCV Impella, site without hematoma. LUNGS: Clear breath sounds bilaterally. No wheezes, or rhonchi. HEART: Normal rate and rhythm. Normal S1 and S2 without murmurs, gallop or rub. VASC: Peripheral pulses +2 bilaterally. EXT: Lt radial line. Mediastinal chest tube draining serosanguineous fluid. De Jesus catheter draining clear yellow urine. NEURO: Confused Laboratory: Hematology Labs: Test 02/16/25 04:29 Range/Units White Blood Count 21.0 H 4.8-10.8 K/uL Red Blood Count 2.85 L 4.50-6.20 MIL/uL Hemoglobin 8.5 L 14.0-18.0 g/dL Hematocrit 25.1 L 42-54 % Mean Corpuscular Volume 88.1 79-99 fL Mean Corpuscular Hemoglobin 29.8 27.0-33.0 pg Mean Corpuscular Hemoglobin Concent 33.9 32.0-36.0 g/dL Red Cell Distribution Width 14.7 11.0-15.5 % Platelet Count 122 L 130-400 K/uL Mean Platelet Volume 11.4 H 7.5-10.5 fL Nucleated Red Blood Cells 0.0 0.0-0.19 % Chemistry Labs: Test 02/16/25 04:29 02/15/25 05:35 Range/Units Sodium Level 142 136-145 mmol/L Potassium Level 4.1 3.5-5.1 mmol/L Chloride Level 104 101-111 mmol/L Carbon Dioxide Level 26 21-32 mmol/L Blood Urea Nitrogen 19 H 7-18 mg/dL Creatinine 1.1 0.5-1.3 mg/dL Glomerular Filtration Rate Calc 70 >90 mL/min Whole Blood Glucose 139 H 70-110 MG/DL Random Glucose 148 H 70-105 mg/dL Total Calcium 9.0 8.5-10.1 mg/dL Ionized Calcium 1.10 L 1.15-1.33 MMOL/L Magnesium Level 1.90 1.80-2.40 mg/dL Phosphorus Level 4.6 2.5-4.9 mg/dL Coagulation Labs: Test 02/15/25 05:35 Range/Units Prothrombin Time 11.5 9.6-11.6 SEC Prothromb Time International Ratio 1.09 0.85-1.15 Activated Partial Thromboplast Time 28.3 26.3-35.5 SEC Diagnostics / Radiology: Impression and Plan: 1. Non ST-elevation myocardial infarction 2. Remote myocardial infarction status post stenting of the mid LAD and distal LAD February 2016 3. Multivessel CAD with ejection fraction of 20% per for [facility] 5. Diabetes mellitus type 2 6. Dyslipidemia 7. Hypertension 8. 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 History of beta estela intolerance due to erectile dysfunction #NSTEMI with HFrEEFF 20%% due to ICM s/p Impella assisted CABG 3v (BISHOP to LAD, SVG to OM, SVG R PDA) with Left atrial clipping with a 45-mm AtriCure clip on 02/04/[address] Alexis -IABP discontinued 02/15 -Trop peak at 14,217, has downtrended to [id number] -Chest x ray 02/16 with left pleural effusion, the patient will be started on a Lasix gtt at 5mg/hr -Left lung US pending, the patient will be started on broad spectrum antibiotics, pending ID consult. Will start on Cefepime -Continue aspirin 81 mg qd, Atorvastatin 40mg q hs, and Metoprolol tartrate 12.5mg bid -Rest of care per CV surgery PATRICIA SALGADO Feb 16, 2025 11:34 MARCELA SMITH MD Feb 16, 2025 12:02
[2025-02-16] MEDS: VANCOMYCIN 2GM/500 ML BAG 500 ML IV ONE (11:39)
--- NOTE | 2025-02-16 11:49 | HMCIMG ---
EXAM: CR Chest, 1 View. CLINICAL HISTORY: s/p CABG COMPARISON: 02/15/2025 FINDINGS: The right IJ line is at the SVC. LUNGS: Diffuse airspace disease of the left lung, predominantly involving the left lower zone, with a questionable pleural effusion. PLEURAL SPACES: No pneumothorax. MEDIASTINUM: The cardiac size is stable. BONES: No acute osseous abnormality. IMPRESSION: Diffuse airspace disease of the left lung, predominantly involving the left lower zone, could be due to an infection or atelectasis. Questionable left pleural effusion. /[place]
--- NOTE | 2025-02-16 11:53 | CONS ---
INFECTIOUS DISEASE CONSULTATION NOTE Date of Service: Feb 16, 2025 Reason for Consultation: Leukocytosis Requesting Physician: Dr. Smith HISTORY OF PRESENT ILLNESS This is a 74-year-old male patient with current medical history of diabetes mellitus, hyperlipidemia, coronary artery disease and myocardial infarction who initially presented to the emergency room with chief complaint of chest pain and diaphoresis. Patient underwent a left heart catheterization on 02/10/2025 with findings of severe ischemic cardiomyopathy with EF of 20% and severe triple- vessel coronary artery disease and patient underwent a coronary artery bypass graft on 02/14/2025. The WBC has persistently remain high for the past 3 days postoperatively and the reason for this consult. The WBC today is 21.0 but he is afebrile, temperature is 98.6. A chest x-ray done yesterday showing postsurgical changes with a questionable left pleural effusion and a poor aeration of the left lung. On examination patient has crackles on the right side. Chest tube remains in place. Patient has been started on vancomycin and cefepime. Sputum cultures were collected this morning and patient has been started on Lasix drip. We will continue current antibiotics and follow up on the culture results. REVIEW OF SYSTEMS Unable to obtain. Questions were answered by patient's present at bedside. PAST MEDICAL HISTORY: Diabetes mellitus. Hypercholesterolemia. Coronary artery disease. Myocardial infarction. PAST SURGICAL HISTORY: Cholecystectomy. Left inguinal hernia repair. Cardiac stents. Bilateral cataract surgery. PAST SOCIAL HISTORY: Occasional drinks beer. FAMILY HISTORY: Noncontributory. Coded Allergies: No Known Drug Allergies (Unverified Allergy, Unknown, 08/31/15) PHYSICAL EXAM EYES: Anicteric. Pupils equal and reactive. HENT: No oral thrush seen, moist Oral mucosa. NECK: Supple, no JVD or thyromegaly. LUNGS: Good air entry. Crackles on the right side and diminished on the left side. CHEST: Chest tube. Sternal incision. CARDIOVASCULAR: S1, S2 regular. No murmur heard. ABDOMEN: Soft, non tender, bowel sounds present. CENTRAL NERVOUS SYSTEM: Awake, alert, oriented. SKIN: No rashes, no swelling. Vein harvesting surgical incisions to bilateral lower extremities.. LYMPHATICS: No peripheral lymphadenopathy. MUSCULOSKELETAL: No joint swelling, erythema or tenderness. EXTREMITIES: No cyanosis or clubbing. 1+ edema to bilateral feet. BACK: No deformity, no pressure ulcer. GENITOURINARY: No dysuria or hematuria. De Jesus catheter. Vital Sign (Last 24 Hours) 02/16/25 02/16/25 08:00 09:00 Temp 98.6 Pulse 108 Resp 6 B/P (MAP) 98/50 (66) 110/64 (79) Pulse Ox 98 O2 Delivery Nasal Cannula* O2 Flow Rate 5 FiO2 40 Intake & Output (last 24hrs) 02/15/25 02/15/25 02/16/25 15:00 23:00 07:00 Intake Total 1123.6 ml 628.8 ml 628.6 ml Output Total 965 ml 1195 ml 670 ml Balance 158.6 ml -566.2 ml -41.4 ml LABS: Laboratory: Test 02/16/25 10:57 02/16/25 04:29 02/15/25 05:35 02/14/25 20:11 Range/Units Blood Gas Specimen Type Arterial Arterial Blood pH 7.498 H 7.350-7.450 Arterial Blood Partial Pressure CO2 28 L 35-48 mmHg Arterial Blood Partial Pressure O2 75.2 L 83.0-108.0 mmHg Arterial Blood HCO3 21.2 21.0-28.0 mmol/L Arterial Blood Oxygen Saturation 95.2 94.0-98.0 % Arterial Blood Base Excess -1.4 -2.0-3.0 mmol/L Hemoglobin (Blood Gas) 9.3 L 13.5-17.5 g/dL Sodium (Blood Gas) 136 136-145 MMOL/L Bedside Potassium (Blood Gas) 4.4 3.4-4.5 MMOL/L Bedside Chloride (Blood Gas) 102 98-107 MMOL/L Bedside Glucose (Blood Gas) 182 H 65-95 MG/DL Bedside Ionized Calcium (Blood Gas) 1.17 1.15-1.33 MMOL/L Bedside Lactic Acid (Blood Gas) 1.57 H 0.36-0.75 MMOL/L Blood Gas Temperature 37.0 35.5-37.0 CELSIUS Blood Gas Flow-by 5.00 0.00-15.00 L/min Blood Gas Vent Mode NC ROOM AIR FiO2 40.0 % Blood Gas Specimen Comment RN AL White Blood Count 21.0 H 4.8-10.8 K/uL Red Blood Count 2.85 L 4.50-6.20 MIL/uL Hemoglobin 8.5 L 14.0-18.0 g/dL Hematocrit 25.1 L 42-54 % Mean Corpuscular Volume 88.1 79-99 fL Mean Corpuscular Hemoglobin 29.8 27.0-33.0 pg Mean Corpuscular Hemoglobin Concent 33.9 32.0-36.0 g/dL Red Cell Distribution Width 14.7 11.0-15.5 % Platelet Count 122 L 130-400 K/uL Mean Platelet Volume 11.4 H 7.5-10.5 fL Nucleated Red Blood Cells 0.0 0.0-0.19 % Sodium Level 142 136-145 mmol/L Potassium Level 4.1 3.5-5.1 mmol/L Chloride Level 104 101-111 mmol/L Carbon Dioxide Level 26 21-32 mmol/L Blood Urea Nitrogen 19 H 7-18 mg/dL Creatinine 1.1 0.5-1.3 mg/dL Glomerular Filtration Rate Calc 70 >90 mL/min Whole Blood Glucose 139 H 70-110 MG/DL Random Glucose 148 H 70-105 mg/dL Total Calcium 9.0 8.5-10.1 mg/dL Ionized Calcium 1.10 L 1.15-1.33 MMOL/L Magnesium Level 1.90 1.80-2.40 mg/dL Prothrombin Time 11.5 9.6-11.6 SEC Prothromb Time International Ratio 1.09 0.85-1.15 Activated Partial Thromboplast Time 28.3 26.3-35.5 SEC Phosphorus Level 4.6 2.5-4.9 mg/dL Blood Gas PEEP 5 cm H2O Blood Gas CPAP 10 cm H2O Test 02/14/25 18:26 Range/Units Blood Gas Respiration Rate 6.0 min. Blood Gas Tidal Volume 650 ml ASSESSMENT: Possible hospital-acquired pneumonia. Leukocytosis. 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 Postop anemia. Left Pleural effusion. Diabetes mellitus. PLAN: Continue vancomycin as currently ordered. Continue cefepime. We will follow up on the sputum cultures results. Has been started on Lasix drip. Continue oxygen support. Continue GI prophylaxis. Monitor electrolytes. This case was reviewed and discussed with my supervising physician Dr. Mckeon and the above assessment and plan was formulated and agreed upon. ATTESTATION BY PHYSICIAN I have seen and examined the patient. I reviewed the documentation, medical decision making, and treatment plan as noted by the mid-level provider above. I agree with the findings and plan of care. BERENICE MCKEON MD, [facility] Feb 16, 2025 11:53
[2025-02-16 15:23] LABS: ABG BASE EXCESS -1.8 mmol/L (-2.0-3.0); ABG HCO3 20.7 mmol/L (21.0-28.0); ABG OXYGEN SATURATION 96.3 % (94.0-98.0); ABG PCO2 27 mmHg (35-48); ABG PH 7.497 (7.350-7.450); CARBON MONOXIDE 0.3 % (0.5-1.5); DEVICE COMMENT RN BRIZA; PO2, ARTERIAL BG 86.6 mmHg (83.0-108.0); TEMPERATURE, CELSIUS BG 37.0 CELSIUS (35.5-37.0); VENT MODE, BG NC (ROOM AIR)
--- NOTE | 2025-02-16 15:34 | PN ---
[facility] PROGRESS NOTE Date of Service: Feb 16, 2025 Time of Service: 15:24 HISTORY OF PRESENT ILLNESS: This is a 74-year-old male,a Bahai by sabianist whith past medical history of diabetes, hyperlipidemia and [place]/coronary artery disease with cardiac stent who presented to the Ed for complaints of midsternal chest pain that is non radiating associated with diaphoresis and this happened when patient was laying down in bed aroun 11:50 pm last night and decided to come to the ED for evaluation.Patient reports pain was persistent.As per patient he had a history of heart attack before and underwent a stent placement.Patient reports the only medication he is taking is Metformin.Patient states he is supposed to be on Aspirin but has stopped taking it.Patient reports he occasionally drinks beer and last drink was yesterday ,had 2 beers he said. Seen and examined patient in the ER awake,alert and coherent,appears comfortable.Patient denies fever,chills,cough,nausea,vomiting,palpitation and shortness of breath. Latest vital signs temperature 98.2, heart rate 75, blood pressure 124/70 saturation 97% on room air. Labs: CBC unremarkable. Chloride 99, BUN 21, random glucose 469 to 439 to 327. Troponin from -. ECG result revealed revealed sinus rhythm heart rate 85 with atrial premature complex anterolateral infarct age indeterminate. Second EKG result revealed sinus rhythm heart rate 73 with left anterior fascicular block. Probable anterolateral infarct age indeterminate. Abnormal T consider ischemia lateral leads.. Chest x-ray result revealed no acute cardiopulmonary process is evident. While in the ER patient received 1500 mL NS bolus, insulin 5 units IV, aspirin 325 mg p.o. and patient was started on heparin drip per ACS protocol. SUBJECTIVE: 02/10/25: Patient was seen and evaluated in ED9. Patient was alert, awake and orientedX3. Patient reports that he doesn't have any chest pain today. Patient reports occasional shortness of breath during nights. Patient denies any shortness of breath, nausea, vomiting, palpitations and lightheadedness. Patient denies any abdominal pain, burning urination. Patient mentions that he only takes metformin 3-4 times per week and has stopped taking aspirin because it wasn't reconciled. Troponin from -. 2D ECHO was done, pending results. Patient is currently on Heparin drip 02/11/25: Patient was evaluated at the bedside this morning. No overnight event. He is AAO x3. patient reported that he does not have chest pain or shortness of breath. He is hemodynamically stable. The labs remarkable for potassium 3.3, magnesium 1.6, HbA1c 13.9, troponin 18121. Left heart catheterization revealed severe triple-vessel disease. Echocardiogram revealed 25% ejection fraction with segmental akinesis. CT surgery was consulted who recommended CABG with Impella left ventricle assist. Family to decide about the procedure. He is currently on heparin drip, aspirin. Endocrinology on board. Rest of the plan as discussed below. 02/12/25: Patient was evaluated at the bedside this morning. No overnight event. He is AAO x3. patient reported that he does not have chest pain or shortness of breath. He is hemodynamically stable. Cardiology is on board and Dr. Blanton have suggested low-dose beta estela like metoprolol tartrate 12.5 mg b.i.d. for his heart failure. Dr Kaur still recommends CABG with 5.5 Impella LVAD and the patient agrees to it. We will continue Entresto, Aldactone, Jardiance, aspirin, Lasix as per CT surgeon recommendations. Today his potassium is 3.1 and we would like to be above 4 for CABG patients. So we will replace potassium 02/13/25: Patient was seen and evaluated in room 201. Patient reports feeling better. patient denies any chest pain, shortness of breath. He is continuing on Entresto, Aldactone, Jardiance, aspirin, Lasix as per CT surgeon recommendations.Patients Potassium today is 3.7, will continue replacing potassium. Patients was present along with the patient, she has a few question about the CABG procedure which she wanted to ask Dr. Pacheco. 02/14/25. Patient was undergoing CABG procedure today in the morning. 02/15/25: Patient was seen and evaluated in room 213. Patient status post CABG day 1. Patient denies any fever, chills, shortness of breath. Patient complaints of pain along the incision. Patient is on IABP and Impella support. patient is on Vasopressin and Norepinephrine drip. Entresto, Aldactone, Jardiance were discontinued by Dr. Pacheco. CT surgery are on the case and will follow their recommendations. 02/16/25: Patient was seen and evaluated in room 213. Patient status post CABG day 2. patient was asleep when we went bedside. Spoke the the nurse regarding overnights and she mentioned that patient was a bit confused in the night but later improved with sleep. Patient is continuing on Epinephrine drip. Patient was weaned off IABP and is currently only on Impella. Patient was started on Vancomycin and cefepime due to elevated WBC levels and findings suggestive of pneumonia on chest x-ray REVIEW OF SYSTEMS CONSTITUTIONAL: Denies fevers, chills, or night sweats. No unintentional we ight loss reported. NEUROLOGICAL: Denies headache, amaurosis fugax, motor weakness, sensory deficit, vertigo/spinning sensation, gait abnormalities, or tremors. ENT: No hearing loss, otalgia, otorrhea, rhinitis, rhinorrhea, hoarseness, or sore throat. CARDIOVASCULAR: Denies chest pain, dyspnea on exertion, orthopnea, paroxysmal nocturnal dyspnea, palpitations, life-threatening arrhythmias, claudication. PULMONARY: Denies any shortness of breath, cough, phlegm/sputum, hemoptysis, pleuritic chest pain. SLEEP: Denies morning headaches, daytime somnolence or napping. Denies difficulty falling asleep, staying asleep, waking from sleep. Denies knowledge of snoring. GASTROINTESTINAL: Denies any type of dysphagia to either liquids or solids. Denies nausea, vomiting, pyrosis, early satiety, abdominal pain, diarrhea, constipation, or changes in stool consistency or caliber. Denies coffee-ground emesis, hematemesis, hematochezia, or melanotic stools. GENITOURINARY: Denies frequency, urgency, nocturia, hematuria or incontinence (Storage/Irritative symptoms.) Low urinary stream, straining to void, urinary intermittency or hesitancy, splitting of the voiding stream, terminal dribbling. ENDOCRINOLOGIC: Denies polyuria, polydipsia, polyphagia or heat/cold intolerances. HEMATOLOGIC: Denies thrombophilia/previous clots, or coagulopathy/bleeding disorders. ONCOLOGIC: Denies personal history of malignancy. DERMATOLOGIC: Denies rashes or pruritus. PSYCHIATRIC: Denies any suicidal or homicidal ideation. Denies hallucinations. PHYSICAL EXAM GENERAL APPEARANCE: The patient is awake, alert, and oriented, in no acute cardiopulmonary distress. NEUROLOGICAL: Cranial nerves II-XII grossly intact. Motor is 5/5 in bilateral upper and lower extremities proximal to distal. No sensory deficits. HEENT: Face is symmetric. Pupils are equal and reactive. Extraocular movements are intact. NECK: Supple. No JVD. No thyromegaly. No submental, submandibular, pre- /postauricular, occipital or supraclavicular lymphadenopathy. CHEST: Normal chest expansion. No Telemetry. LUNGS: Absence of any rales, rhonchi or any wheezing. CARDIOVASCULAR: Regular. S1 and S2 normal. No appreciable rubs, murmurs or gallops. ABDOMEN: Soft, nontender, and nondistended. There is no rebound, voluntary guarding, or rigidity. : Deferred. No De Jesus. EXTREMITIES: Non-edematous and not cyanotic. No clubbing. Good capillary refill. SKIN: No skin breakdown. Vital Signs (last 8hr) Date Time Temp Pulse Resp B/P (MAP) Pulse Ox O2 Delivery O2 Flow Rate FiO2 02/16/25 14:45 107 23 116/53 (74) 97 110/61 (77) 02/16/25 14:30 107 23 118/55 (76) 99 117/71 (86) 02/16/25 14:15 108 22 81/70 (74) 112/64 (80) 02/16/25 14:00 107 23 72/53 (59) 112/45 (67) 02/16/25 13:45 106 22 111/55 (73) 119/66 (83) 02/16/25 13:30 106 57 110/55 (73) 124/71 (88) 02/16/25 13:15 108 30 124/60 (81) 127/73 (91) 02/16/25 13:00 102 15 131/60 (83) 98 128/73 (91) 02/16/25 12:45 110 4 130/59 (82) 98 136/77 (96) 02/16/25 12:30 109 126/57 (80) 99 128/72 (90) 02/16/25 12:15 107 109/52 (71) 100 132/70 (90) 02/16/25 12:00 109 121/57 (78) 100 129/68 (88) 02/16/25 12:00 99.0 Nasal Cannula 5.0 40 02/16/25 12:00 99 Nasal Cannula* 5 40 02/16/25 11:45 108 124/58 (80) 98 134/70 (91) 02/16/25 11:30 99.0 109 18 123/57 (79) 99 128/72 (90) 02/16/25 11:15 107 13 109/54 (72) 99 121/62 (81) 02/16/25 11:00 110 24 100/48 (65) 98 116/65 (82) 02/16/25 10:45 108 18 124/58 (80) 100 111/61 (78) 02/16/25 10:30 106 18 115/56 (75) 97 120/65 (83) 02/16/25 10:15 111 18 97/49 (65) 96 116/58 (77) 02/16/25 10:00 111 12 115/52 (73) 95 125/71 (89) 02/16/25 09:45 112 18 99/53 (68) 98 116/63 (80) 02/16/25 09:30 105 18 97/47 (64) 99 114/67 (83) 02/16/25 09:15 110 9 92/48 (63) 97 112/64 (80) 02/16/25 09:00 108 6 98/50 (66) 98 110/64 (79) 02/16/25 08:45 108 9 96/49 (65) 98 112/69 (83) 02/16/25 08:30 108 8 96/50 (65) 97 112/54 (73) 02/16/25 08:15 106 36 100/49 (66) 100 105/55 (72) 02/16/25 08:00 99 Nasal Cannula* 5 40 02/16/25 08:00 98.6 Nasal Cannula 5.0 40 02/16/25 08:00 108 12 98/50 (66) 99 96/56 (69) 02/16/25 07:45 108 22 103/52 (69) 98 111/69 (83) 02/16/25 07:30 107 14 107/47 (67) 100 104/57 (73) LABS: Laboratory: Test 02/16/25 15:21 02/16/25 04:29 02/15/25 05:35 02/14/25 20:11 Range/Units Blood Gas Specimen Type Arterial Arterial Blood pH 7.497 H 7.350-7.450 Arterial Blood Partial Pressure CO2 27 L 35-48 mmHg Arterial Blood Partial Pressure O2 86.6 83.0-108.0 mmHg Arterial Blood HCO3 20.7 L 21.0-28.0 mmol/L Arterial Blood Oxygen Saturation 96.3 94.0-98.0 % Arterial Blood Base Excess -1.8 -2.0-3.0 mmol/L Hemoglobin (Blood Gas) 9.4 L 13.5-17.5 g/dL Sodium (Blood Gas) 138 136-145 MMOL/L Bedside Potassium (Blood Gas) 3.8 3.4-4.5 MMOL/L Bedside Chloride (Blood Gas) 101 98-107 MMOL/L Bedside Glucose (Blood Gas) 185 H 65-95 MG/DL Bedside Ionized Calcium (Blood Gas) 1.14 L 1.15-1.33 MMOL/L Bedside Lactic Acid (Blood Gas) 1.35 H 0.36-0.75 MMOL/L Blood Gas Temperature 37.0 35.5-37.0 CELSIUS Blood Gas Flow-by 5.00 0.00-15.00 L/min Blood Gas Vent Mode NC ROOM AIR FiO2 40.0 % Blood Gas Specimen Comment RN AL White Blood Count 21.0 H 4.8-10.8 K/uL Red Blood Count 2.85 L 4.50-6.20 MIL/uL Hemoglobin 8.5 L 14.0-18.0 g/dL Hematocrit 25.1 L 42-54 % Mean Corpuscular Volume 88.1 79-99 fL Mean Corpuscular Hemoglobin 29.8 27.0-33.0 pg Mean Corpuscular Hemoglobin Concent 33.9 32.0-36.0 g/dL Red Cell Distribution Width 14.7 11.0-15.5 % Platelet Count 122 L 130-400 K/uL Mean Platelet Volume 11.4 H 7.5-10.5 fL Nucleated Red Blood Cells 0.0 0.0-0.19 % Sodium Level 142 136-145 mmol/L Potassium Level 4.1 3.5-5.1 mmol/L Chloride Level 104 101-111 mmol/L Carbon Dioxide Level 26 21-32 mmol/L Blood Urea Nitrogen 19 H 7-18 mg/dL Creatinine 1.1 0.5-1.3 mg/dL Glomerular Filtration Rate Calc 70 >90 mL/min Whole Blood Glucose 139 H 70-110 MG/DL Random Glucose 148 H 70-105 mg/dL Total Calcium 9.0 8.5-10.1 mg/dL Ionized Calcium 1.10 L 1.15-1.33 MMOL/L Magnesium Level 1.90 1.80-2.40 mg/dL Prothrombin Time 11.5 9.6-11.6 SEC Prothromb Time International Ratio 1.09 0.85-1.15 Activated Partial Thromboplast Time 28.3 26.3-35.5 SEC Phosphorus Level 4.6 2.5-4.9 mg/dL Blood Gas PEEP 5 cm H2O Blood Gas CPAP 10 cm H2O Test 02/14/25 18:26 Range/Units Blood Gas Respiration Rate 6.0 min. Blood Gas Tidal Volume 650 ml Current Medications Medications (Trade) Dose Ordered Sig/Carol Route PRN Reason Start Time Stop Time Status Last Admin Dose Admin Acetaminophen (TYLenol 325MG TAB) 650 mg Q4H PRN PO MILD PAIN (1-3) 02/10/25 05:00 02/14/25 10:05 DC Acetaminophen (TYLenol 325MG TAB) 650 mg Q4H PRN PO Temp >38.3C(AFTER EXTUBATION) 02/14/25 10:00 03/16/25 09:59 Acetaminophen (TYLenol 325MG TAB) 650 mg Q6H PRN PO TEMPERATURE GREATER THAN 101.5 02/10/25 05:00 02/14/25 10:17 DC 02/12/25 17:13 650 MG Acetaminophen (TYLenol 325MG TAB) 650 mg Q6H PRN PO MILD PAIN (1-3) 02/14/25 10:00 03/16/25 09:59 Acetaminophen (TYLenol 650MG SUPPOSITORY) 650 mg Q4H PRN RC Temp >38.3C WHILE INTUBATED 02/14/25 10:00 03/16/25 09:59 Acetaminophen (acetaMINOPHEN 1,000MG/100ML) 1,000 mg Q6H6 IV 02/14/25 14:00 02/15/25 13:59 DC 02/15/25 12:14 1,000 MG Albumin Human 250 ml @ 0 mls/hr AD IV 02/14/25 15:30 02/19/25 15:29 Albumin Human 250 ml @ 0 mls/hr AD PRN IV IF HEMODYNAMICALLY UNSTABLE 02/14/25 10:00 02/14/25 14:42 DC 02/14/25 14:42 500 MLS/HR Aminocaproic Acid 99135 mg/Sodium Chloride 310 ml @ 25 mls/hr AD IV 02/14/25 10:00 02/14/25 10:19 DC Aminocaproic Acid 78352 mg/Sodium Chloride 480 ml @ 0 mls/hr AD PRN IV BLEEDING CONTROL 02/14/25 06:30 03/16/25 06:29 Aminocaproic Acid 85629 mg/Sodium Chloride 480 ml @ 0 mls/hr AD PRN IV BLEEDING CONTROL 02/14/25 07:00 02/14/25 06:51 DC Aspirin (Aspirin 325mg Tab) 325 mg ONCE PO 02/10/25 14:30 02/10/25 17:22 DC 02/10/25 14:32 325 MG Aspirin (Aspirin 81mg Ec Tab) 81 mg DAILY PO 02/10/25 09:00 03/12/25 08:59 02/16/25 08:19 81 MG Atorvastatin Calcium (LIPItor 40MG) 40 mg HS PO 02/14/25 21:00 03/16/25 20:59 02/15/25 20:16 40 MG Calcium Gluconate 1 gm/Sodium Chloride 60 ml @ 200 mls/hr AD PRN IV HYPOCALCEMIA 02/14/25 10:00 03/16/25 09:59 02/16/25 11:27 200 MLS/HR Cefazolin Sodium (Ancef) 2 gm ONCALL IVP 02/13/25 20:00 02/14/25 18:51 DC 02/14/25 08:50 2 GM Cefazolin Sodium (Ancef) 2 gm Q8H IVPB 02/14/25 15:00 02/15/25 07:01 DC 02/15/25 06:25 2 GM Cefepime HCl (MAXipime 1 GM vial) 1 gm Q12H IVPB 02/16/25 10:30 02/26/25 10:29 02/16/25 10:46 1 GM Clopidogrel Bisulfate (plaVIX 300MG TAB) 600 mg ONCE PO 02/10/25 14:00 02/10/25 17:22 DC 02/10/25 14:19 600 MG Clopidogrel Bisulfate (plaVIX 75MG) 75 mg DAILY PO 02/11/25 09:00 02/11/25 07:28 DC Dexmedetomidine/ Sodium Chloride (PRECEdex 400MCG/ 100ML-NS) 400 mcg PROTOCOL IV 02/14/25 10:00 02/15/25 09:59 DC Dextrose (D50w) 50 ml AD PRN IV HYPOGLYCEMIA PROTOCOL 02/10/25 05:00 02/14/25 10:17 DC Dextrose (D50w) 50 ml AD PRN IV HYPOGLYCEMIA PROTOCOL 02/14/25 10:00 03/16/25 09:59 Docusate Sodium (COLace 100MG CAP) 100 mg BID PO 02/14/25 21:00 03/16/25 20:59 02/16/25 08:19 100 MG Empaglifozin (Jardiance 10mg) 10 mg DAILY PO 02/10/25 14:30 02/14/25 09:59 DC 02/13/25 10:52 10 MG Enoxaparin Sodium (Lovenox) 30 mg DAILY SQ 02/17/25 09:00 03/19/25 08:59 Epinephrine HCl 10 mg/Sodium Chloride 250 ml @ 0 mls/hr AD PRN IV TITRATE 02/14/25 06:30 03/16/25 06:29 02/16/25 00:51 4.32 MLS/HR Epinephrine HCl 10 mg/Sodium Chloride 250 ml @ 0 mls/hr AD PRN IV TITRATE 02/14/25 07:00 02/14/25 06:51 DC Epinephrine HCl 10 mg/Sodium Chloride 250 ml @ 0 mls/hr AD PRN IV POST-OP CARDIOVASCULAR ORDERS 02/14/25 10:00 02/14/25 10:14 DC Famotidine (Pepcid 20mg Vial) 20 mg BID IV 02/14/25 21:00 02/16/25 07:58 DC 02/15/25 20:15 20 MG Famotidine (Pepcid 20mg Tab) 20 mg BID PO 02/16/25 09:00 03/18/25 08:59 02/16/25 08:19 20 MG Famotidine (Pepcid 20mg Tab) 20 mg DAILY PO 02/10/25 09:00 02/14/25 09:59 DC 02/13/25 10:53 20 MG Furosemide (LASix 20MG TAB) 20 mg DAILY PO 02/11/25 09:00 02/14/25 09:59 DC 02/13/25 10:52 20 MG Furosemide (LASix 20MG TAB) 20 mg Q12H PO 02/16/25 09:00 02/16/25 10:21 DC 02/16/25 08:19 20 MG Furosemide (LASix 20MG VIAL) 20 mg ONCE IV 02/10/25 17:00 02/10/25 21:00 DC 02/10/25 17:00 20 MG Furosemide (LASix 20MG VIAL) 20 mg ONCE IV 02/11/25 09:00 02/11/25 07:43 DC Furosemide (LASix 20MG VIAL) 20 mg Q12H IV 02/15/25 09:00 02/16/25 08:59 DC 02/15/25 20:16 20 MG Furosemide 100 mg/ Sodium Chloride 100 ml @ 0 mls/hr PROTOCOL IV 02/16/25 10:30 03/18/25 10:29 02/16/25 10:39 5 MLS/HR Glucagon (Glucagon 1mg Kit) 1 mg AD PRN IM HYPOGLYCEMIA PROTOCOL 02/10/25 05:00 02/14/25 10:17 DC Glucagon (Glucagon 1mg Kit) 1 mg AD PRN IM HYPOGLYCEMIA PROTOCOL 02/14/25 10:00 03/16/25 09:59 Heparin Sodium (Porcine) (HEParin 5,000 UNIT VIAL) *calculation based on ACTUAL B... AD PRN IV HEPARIN PROTOCOL 02/12/25 21:00 02/14/25 09:59 DC 02/12/25 20:16 4,000 UNIT Heparin Sodium/ Dextrose 250 ml @ 0 mls/hr PROTOCOL IV 02/10/25 03:00 02/10/25 17:22 DC 02/10/25 03:00 16.2 MLS/HR Heparin Sodium/ Dextrose 250 ml @ 0 mls/hr Q6H IV 02/11/25 06:30 02/14/25 09:59 DC 02/13/25 13:01 9 MLS/HR Insulin Glargine (LANtus 100 UNITS/ML 10 ML VIAL) 12 units DAILY08 SQ 02/13/25 08:00 02/14/25 09:59 DC 02/13/25 10:51 12 UNITS Insulin Glargine (LANtus 100 UNITS/ML 10 ML VIAL) 15 units DAILY08 SQ 02/11/25 08:00 02/13/25 05:24 DC 02/12/25 08:54 15 UNITS Insulin Human Regular (humuLIN R 100 UNIT/ML 3ML) 3 unit TIDAC SQ 02/12/25 07:30 02/14/25 09:59 DC 02/12/25 16:31 3 UNIT Insulin Human Regular (humuLIN R 100 UNIT/ML 3ML) INSULIN SLIDING SCAL... ACHS SQ 02/16/25 11:30 03/18/25 11:29 02/16/25 11:25 2 UNIT Insulin Human Regular (humuLIN R 100 UNIT/ML 3ML) INSULIN SLIDING SCAL... Q4H SQ 02/10/25 05:00 02/10/25 11:10 DC 02/10/25 09:15 6 UNIT Insulin Human Regular (humuLIN R 100 UNIT/ML 3ML) INSULIN SLIDING SCAL... Q6H6 SQ 02/10/25 12:00 02/14/25 09:59 DC 02/11/25 17:29 2 UNIT Insulin Human Regular 100 unit/ Sodium Chloride 100 ml @ 0 mls/hr AD IV 02/14/25 10:00 02/16/25 09:59 DC 02/15/25 06:30 3 MLS/HR Lactulose (Constulose 20gm/ 30ml Udcup) 20 gm BID PRN PO CONSTIPATION 02/14/25 10:00 03/16/25 09:59 Magnesium Hydroxide (Milk Of Magnesium 30ml) 30 ml DAILY PRN PO CONSTIPATION 02/14/25 10:00 03/16/25 09:59 Magnesium Sulfate 50 ml @ 12.5 mls/hr AD PRN IV MAG LEVEL LESS THAN 2.0 02/14/25 10:00 03/16/25 09:59 02/16/25 05:10 12.5 MLS/HR Magnesium Sulfate 50 ml @ 0 mls/hr PROTOCOL PRN IV OTHER [SEE ORDER COMMENTS] 02/10/25 05:00 02/14/25 10:17 DC 02/12/25 07:13 25 MLS/HR Metoprolol Tartrate (loprESSOR) 12.5 mg BID PO 02/12/25 09:00 02/14/25 09:59 DC 02/14/25 06:44 12.5 MG Metoprolol Tartrate (loprESSOR) 12.5 mg BID PO 02/16/25 09:00 03/18/25 08:59 Morphine Sulfate (morPHINE 2MG SYG) 0.5 mg Q2H PRN IV MODERATE PAIN (4-6) IF NPO 02/14/25 10:00 02/15/25 09:59 DC Morphine Sulfate (morPHINE 2MG SYG) 1 mg Q2H PRN IV SEVERE PAIN (7-10) IF NPO 02/14/25 10:30 02/21/25 10:29 02/14/25 14:23 1 MG Nitroglycerin (Nitrostat) 0.4 mg PROTOCOL PRN SL CHEST PAIN 02/10/25 05:00 02/14/25 09:59 DC Nitroglycerin/ Dextrose 0 ml @ 0 mls/hr AD IV 02/14/25 10:00 02/17/25 09:59 Norepinephrine Bitartrate 250 ml @ 0 mls/hr AD PRN IV TITRATE 02/14/25 06:30 03/16/25 06:29 Norepinephrine Bitartrate 250 ml @ 0 mls/hr AD PRN IV TITRATE 02/14/25 07:00 02/14/25 06:51 DC Norepinephrine Bitartrate 8 mg/ Dextrose 250 ml @ 0 mls/hr AD PRN IV POST-OP CARDIOVASCULAR ORDERS 02/14/25 10:00 02/14/25 10:14 DC Ondansetron HCl (zoFRAN 4MG INJ) 4 mg Q6H PRN IV NAUSEA/VOMITING 02/10/25 05:00 02/14/25 10:17 DC Ondansetron HCl (zoFRAN 4MG INJ) 4 mg Q6H PRN IV NAUSEA/VOMITING 02/14/25 10:00 03/16/25 09:59 Pharmacy Profile Note (Pharmacy Communication) 1 each ONCE MISC 02/14/25 18:00 02/14/25 18:27 DC Potassium Phosphate 250 ml @ 42 mls/hr AD PRN IV LOW PHOS LEVEL 02/14/25 10:00 03/16/25 09:59 Potassium Chloride 100 ml @ 100 mls/hr AD PRN IV POTASSIUM PROTOCOL 02/10/25 05:00 02/15/25 06:27 DC 02/15/25 05:43 100 MLS/HR Potassium Chloride 100 ml @ 100 mls/hr AD PRN IV HYPOKALEMIA 02/14/25 10:00 03/16/25 09:59 02/16/25 08:14 100 MLS/HR Potassium Chloride (K-Dur/Klor-Con 20meq) 20 meq AD PRN PO POTASSIUM PROTOCOL 02/10/25 05:00 03/12/25 04:59 02/13/25 05:45 20 MEQ Potassium Chloride (KCl 10% Elixir 20meq/15ml) 20 meq AD PRN PO POTASSIUM PROTOCOL 02/10/25 05:00 03/12/25 04:59 Propofol 100 ml @ 0 mls/hr AD PRN IV SEDATION 02/14/25 10:00 02/18/25 09:59 Sacubitril/ Valsartan (Entresto 24 Mg-26 Mg Tablet) 0.5 each BID PO 02/10/25 21:00 02/14/25 09:59 DC 02/13/25 21:11 0.5 EACH Sodium Bicarbonate 25 meq/Dextrose 1,025 ml @ 0 mls/hr Q0M IV 02/14/25 18:00 03/16/25 17:59 02/14/25 18:19 0 MLS/HR Sodium Bicarbonate (Sodium Bicarb 50meq 50ml Vial) 50 meq AD PRN IV OTHER[SEE DOSING INSTRUCTIONS] 02/14/25 10:00 02/17/25 09:59 02/16/25 11:14 50 MEQ Sodium Chloride 500 ml @ 0 mls/hr AD IV 02/14/25 10:00 03/16/25 09:59 Sodium Chloride 1,000 ml @ 10 mls/hr ONCE IV 02/14/25 10:00 02/15/25 09:59 DC Sodium Chloride 1,000 ml @ 100 mls/hr Q10H IV 02/10/25 05:00 02/10/25 17:22 DC 02/10/25 14:20 100 MLS/HR Sodium Chloride (NS Flush 10ml) 10 ml Q8H PRN IVP IV LINE FLUSH 02/14/25 10:00 03/16/25 09:59 Spironolactone (Aldactone 25mg) 25 mg DAILY PO 02/10/25 14:30 02/14/25 09:59 DC 02/13/25 10:52 25 MG Tramadol HCl (UltRAM) 25 mg Q6H PRN PO MODERATE PAIN (4-6) 02/14/25 10:00 02/19/25 09:59 Tramadol HCl (UltRAM) 50 mg Q6H PRN PO SEVERE PAIN (7-10) 02/14/25 10:00 02/19/25 09:59 Vasopressin 40 units/Sodium Chloride 40 ml @ 0 mls/hr PROTOCOL IV 02/14/25 13:00 03/16/25 12:59 02/14/25 22:11 1.8 MLS/HR DIAGNOSTICS / RADIOLOGY: [place] [id number] [address] IMAGING REPORT Signed PATIENT: EMMY GRACE MR#: [id number] : 1950 SEX: M AGE: 74 LOCATION: 2CV ORDER 2300 STATUS: ADM IN REPORT#: [id number] SERVICE 0400 REASON: s/p CABG ORDERING PHYSICIAN: FRANKY PACHECO MD PROCEDURE: CXR1VW - CHEST 1VW EXAM: CR Chest, 1 View. CLINICAL HISTORY: s/p CABG COMPARISON: 02/15/2025 FINDINGS: The right IJ line is at the SVC. LUNGS: Diffuse airspace disease of the left lung, predominantly involving the left lower zone, with a questionable pleural effusion. PLEURAL SPACES: No pneumothorax. MEDIASTINUM: The cardiac size is stable. BONES: No acute osseous abnormality. IMPRESSION: Diffuse airspace disease of the left lung, predominantly involving the left lower zone, could be due to an infection or atelectasis. Questionable left pleural effusion. /[place] DICTATED BY: LAN BURR Jr., MD DATE: 02/16/251248 ELECTRONICALLY SIGNED BY: LAN BURR Jr., MD DATE: 02/16/251248 ASSESSMENT: Chest pain rule out ACS: NSTEMI POA Suspected pneumonia findings on Chest X-ray Hyperglycemia secondary to uncontrolled diabetes POA Hyperlipidemia POA Medication noncompliance, POA Obesity POA [place]/Coronary artery disease with cardiac stent POA PLAN: NSTEMI POA: * EKG was done which revealed sinus rhythm heart rate 85 with atrial premature complex anterolateral infarct age indeterminate. Second EKG result revealed sinus rhythm heart rate 73 with left anterior fascicular block. Probable anterolateral infarct age indeterminate. Abnormal T consider ischemia lateral leads. * PERC score was one, Wells score was zero. Very low suspicion for Pulmonary Embolism. * Chest x-ray done on 02/14/25 show, postsurgical changes with mild left perihilar atelectasis * 2-D ECHO with ejection fraction 25% with segmental akinesis (apical, apical lateral, anteroapical), LDL 89, BNP 488 * Troponin trends 21>[id number] * Left heart catheterization revealed severe three-vessel CAD with occluded mid LAD, 90% proximal left circumflex, 95% distal RCA, and 90% ostial PDA. * As per CT surgeon recommendations Entresto 0.5 each, Aldactone 25mg, Jardiance 10mg were held. 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 * On aspirin 81 mg p.o. along with Furosemide 20mg. * Currently on Epinephrine drip. * Patient was started on Lovenox 30mg. Suspected pneumonia findings on Chest X-ray * Chest x-ray done on 02/16/25 show diffuse airspace disease of the left lung, predominantly involving the left lower zone, could be due to an infection or atelectasis. Questionable left pleural effusion. * Patient started on Vancomycin (day1) and cefepime (day1) * WBC count on (02/16/25) - 21 * Will monitor with daily labs. Hyperglycemia secondary to uncontrolled diabetes POA: * HbA1c 13.9, blood glucose 181 * Following the Endocrinology recommendations. He is on Lantus 15 units, low- dose sliding scale insulin and Jardiance 10 mg * We will monitor blood glucose. Hypokalemia Hypomagnesemia Potassium 3.1, magnesium 1.6 We will replete the electrolytes and monitor We want potassium to be minimum of 4-4.5 for CABG patients Ordered 2 doses of potassium 40 mEq per mL once. We will start Slow-Mag oral t.i.d. once and will keep monitoring magnesium levels. Supportive measures * GI prophylaxis with Famotidine * DVT prophylaxis with SCD's. Already on Heparin. ATTESTATION BY PHYSICIAN I have seen and examined the patient. I reviewed the documentation, medical decision making, and treatment plan as noted by the resident physician above. I agree with the findings and plan of care. Jason Hare IV, MD, SHAJI MD Feb 16, 2025 15:34
[2025-02-16 19:14] LABS: ABG BASE EXCESS 0.1 mmol/L (-2.0-3.0); ABG HCO3 22.5 mmol/L (21.0-28.0); ABG OXYGEN SATURATION 95.5 % (94.0-98.0); ABG PCO2 29 mmHg (35-48); ABG PH 7.513 (7.350-7.450); CARBON MONOXIDE 0.3 % (0.5-1.5); PO2, ARTERIAL BG 79.9 mmHg (83.0-108.0); TEMPERATURE, CELSIUS BG 37.0 CELSIUS (35.5-37.0); VENT MODE, BG NC (ROOM AIR)
--- NOTE | 2025-02-16 22:44 | HMCIMG ---
STUDY: ULTRASOUND OF THE CHEST CLINICAL INFORMATION: Left lung; rule out pleural effusion. TECHNIQUE: Targeted ultrasound of the left hemithorax was performed with real-time B-mode imaging in supine and oblique positions as clinically appropriate. COMPARISON: Chest radiograph from 02/16 at 4:16 EST. FINDINGS: LEFT PLEURAL SPACE: A significant left pleural effusion is present, with maximal fluid depth measuring approximately 3.15 cm from the skin surface at the posterior-lateral chest wall. LUNG BASES: Underlying left lower lung is partially obscured by the effusion on ultrasound; no definite large consolidation is characterized on this limited study. OTHER: No definite pleural-based mass or obvious septations are described on this examination. IMPRESSION: * Sonographic evidence of a significant left pleural effusion with maximal depth of approximately 3.15 cm from the skin surface. * Compared with the chest radiograph from 02/16 at 4:16 EST, the previously questioned left pleural effusion is confirmed and better characterized by ultrasound. /Karyn
[2025-02-16 23:06] LABS: ABG BASE EXCESS 1.9 mmol/L (-2.0-3.0); ABG HCO3 23.8 mmol/L (21.0-28.0); ABG OXYGEN SATURATION 97.5 % (94.0-98.0); ABG PCO2 27 mmHg (35-48); ABG PH 7.556 (7.350-7.450); CARBON MONOXIDE 0.1 % (0.5-1.5); PO2, ARTERIAL BG 103.3 mmHg (83.0-108.0); TEMPERATURE, CELSIUS BG 37.0 CELSIUS (35.5-37.0); VENT MODE, BG NC (ROOM AIR)
[2025-02-17] VITALS (96 sets, daily range): BP systolic 76–137; BP diastolic 42–79; PULSE 84–109; RESP 12–41; TEMP 98.2–99.6; O2SAT 98–99
[2025-02-17] MEDS: NOREPINEPHRIN 8MG/250ML NS 250 ML IV PRN (01:06)
[2025-02-17 03:14] LABS: ABG BASE EXCESS 1.1 mmol/L (-2.0-3.0); ABG HCO3 24.2 mmol/L (21.0-28.0); ABG OXYGEN SATURATION 96.5 % (94.0-98.0); ABG PCO2 32 mmHg (35-48); ABG PH 7.492 (7.350-7.450); CARBON MONOXIDE 0.3 % (0.5-1.5); PO2, ARTERIAL BG 89.1 mmHg (83.0-108.0); TEMPERATURE, CELSIUS BG 37.0 CELSIUS (35.5-37.0); VENT MODE, BG NC (ROOM AIR)
[2025-02-17 05:32] LABS: ASPARTATE AMINOTRANSFERASE 44.0 U/L (10-37); CREATININE 1.2 mg/dL (0.5-1.3); GLOMERULAR FILTR. RATE CALC 63.0 mL/min (>90); GLUCOSE,RANDOM 176.0 mg/dL (70-105); SODIUM SERUM 141.0 mmol/L (136-145); TOTAL PROTEIN, SERUM 5.6 g/dL (6.0-8.3); UREA NITROGEN, BLOOD 25.0 mg/dL (7-18)
[2025-02-17] MEDS: PoTASSium chl 10% ELIXIR 20MEQ 20 MEQ/15 ML UDCUP PO PRN (05:52)
[2025-02-17] MEDS: ENOXAPARIN SODIUM 30 MG/0.3 ML SQ SCH (06:34)
[2025-02-17 07:11] LABS: ABG BASE EXCESS 0.4 mmol/L (-2.0-3.0); ABG HCO3 23.3 mmol/L (21.0-28.0); ABG OXYGEN SATURATION 97.7 % (94.0-98.0); ABG PCO2 31 mmHg (35-48); ABG PH 7.489 (7.350-7.450); CARBON MONOXIDE 0.1 % (0.5-1.5); DEVICE COMMENT ALINE; PO2, ARTERIAL BG 111.2 mmHg (83.0-108.0); TEMPERATURE, CELSIUS BG 37.0 CELSIUS (35.5-37.0); VENT MODE, BG NC (ROOM AIR)
--- NOTE | 2025-02-17 07:26 | PN ---
[facility] CARDIOLOGY PROGRESS NOTE Date Patient Seen: Feb 17, 2025 Time of Visit: 07:23 Interval History: [s/p Impella assisted CABG. CXR improved, WBC improved ] Physical Examination: GENERAL: [No acute distress.] HEAD: [Normal with no signs of head trauma.] EYES: [PERRLA, EOMI, conjunctiva and sclera normal.] ENT: [Hearing grossly intact, normal oropharynx.] NECK: [Supple without JVD. There is no tenderness, lymphadenopathy, or masses. No thyromegaly. Normal carotid upstrokes without bruits.] LUNGS: [Clear breath sounds bilaterally. There are right basilar rales one third of the way up the chest. No wheezes, or rhonchi.] HEART: [Normal rate and rhythm. Normal S1 and S2 without mumurs, gallop or rub.] VASC: [Peripheral pulses +2 bilaterally.] ABD: [Bowel sounds normal, soft, nontender, no masses, no organomegaly. No audible bruits.] : [Not examined] LYMPH: [No lymphadenopathy noted.] EXT: [No clubbing, cyanosis or edema.] SKIN: [No rashes or lesions noted.] NEURO: [Awake, alert, and oriented x3. No focal sensory or strength deficits noted.] Laboratory: [ ] Hematology Labs: Test 02/16/25 04:29 Range/Units White Blood Count 21.0 H 4.8-10.8 K/uL Red Blood Count 2.85 L 4.50-6.20 MIL/uL Hemoglobin 8.5 L 14.0-18.0 g/dL Hematocrit 25.1 L 42-54 % Mean Corpuscular Volume 88.1 79-99 fL Mean Corpuscular Hemoglobin 29.8 27.0-33.0 pg Mean Corpuscular Hemoglobin Concent 33.9 32.0-36.0 g/dL Red Cell Distribution Width 14.7 11.0-15.5 % Platelet Count 122 L 130-400 K/uL Mean Platelet Volume 11.4 H 7.5-10.5 fL Nucleated Red Blood Cells 0.0 0.0-0.19 % Chemistry Labs: Test 02/17/25 06:10 02/17/25 04:29 02/16/25 04:29 Range/Units Whole Blood Glucose 164 H 70-110 MG/DL Sodium Level 141 136-145 mmol/L Potassium Level 3.7 3.5-5.1 mmol/L Chloride Level 99 L 101-111 mmol/L Carbon Dioxide Level 23 21-32 mmol/L Blood Urea Nitrogen 25 H 7-18 mg/dL Creatinine 1.2 0.5-1.3 mg/dL Glomerular Filtration Rate Calc 63 >90 mL/min Random Glucose 176 H 70-105 mg/dL Total Calcium 8.9 8.5-10.1 mg/dL Magnesium Level 1.70 L 1.80-2.40 mg/dL Total Bilirubin 1.4 H 0.2-1.0 mg/dL Aspartate Amino Transf (AST/SGOT) 44 H 10-37 U/L Alanine Aminotransferase (ALT/SGPT) 22 12-78 U/L Alkaline Phosphatase 59 50-136 U/L Total Protein 5.6 L 6.0-8.3 g/dL Albumin 2.3 L 3.5-5.0 g/dL Ionized Calcium 1.10 L 1.15-1.33 MMOL/L Diagnostics / Radiology: [Copy/Paste Echos/Imaging Report here] 1. Non ST-elevation myocardial infarction 2. Remote myocardial infarction status post stenting of the mid LAD and distal LAD February 2016 3. 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 Diabetes mellitus type 2 6. Dyslipidemia 7. Hypertension 8. 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 Latter-day 10. History of beta estela intolerance due to erectile dysfunction #NSTEMI with HFrEEFF 20%% due to ICM s/p Impella assisted CABG 3v (BISHOP to LAD, SVG to OM, SVG R PDA) with Left atrial clipping with a 45-mm AtriCure clip on 02/04/[address] Alexis -IABP discontinued 02/15 -Trop peak at 14,217, has downtrended to [id number] -Chest x ray 02/16 with left pleural effusion, the patient will be started on a Lasix gtt at 5mg/hr -Left lung US significant L pleural effusion however overnight much better -, the patient will be started on broad spectrum antibiotics, pending ID consult. Will start on Cefepime and Leukocytosis improved -Continue aspirin 81 mg qd, Atorvastatin 40mg q hs, and Metoprolol tartrate 12.5mg bid -Rest of care per CV surgery ] COREEN ROBERTO MD Feb 17, 2025 07:26
[2025-02-17] MEDS: FAMOTIDINE 20MG TAB PO SCH (07:45)
--- NOTE | 2025-02-17 08:00 | NUR ---
DR NORMAN ROUND ON PATIENT, CHANGE LASIX DRIP TO 2.5MG/HOUR EXAMINED TELE STRIPS FROM LAST NIGHT IF ARRHYTHMIAS OCCUR TO CALL MD. NO ECTOPY SINCE ELECTROLYTE REPLACEMENT. CARE ONGOING.
--- NOTE | 2025-02-17 08:50 | HMCIMG ---
EXAM: CR Chest, 1 View. CLINICAL HISTORY: s/p CABG COMPARISON: 02/16/2025 FINDINGS: The right IJ line terminates at the SVC. LUNGS: Small stable left pleural effusion with adjacent lung atelectasis. The right lung remains clear. PLEURAL SPACES: No pneumothorax. MEDIASTINUM: Cardiac size is stable. Post sternotomy changes. BONES: No acute osseous abnormality. IMPRESSION: 1. Small stable left pleural effusion with adjacent lung atelectasis. 2. Right IJ line terminates at the SVC. No significant interval changes since the prior study. /Holt
--- NOTE | 2025-02-17 10:47 | PN ---
[facility] PROGRESS NOTE Date Patient Seen: Feb 17, 2025 Time of Visit: 10:45 Supervising Physician: Dr Willy Smith Primary Care Physician: [ ] Outpatient Specialists: [ ] Inpatient Consults: [ ] PROBLEM LIST: CAD, status post CABG x3 Impella and a intra-aortic balloon pump support Type 2 diabetes Congested heart failure EF 20% INTERVAL HISTORY: Patient seen and examined, patient resting comfortably in bed, tolerating his diet, reporting his pain controlled No acute events overnight, afebrile Patient continues on the Impella at P4, neurovascularly intact to lower extremity Nasal cannula at 2 L Continues on low-dose epi, Lasix drip rate has been decreased, patient with a almost 6 L out in urine in the last 24 Chest tube 140/in the 24 and 70 overnight, chest x-ray improving Plan: Follow CT surgeon recs/protocol I&Os Weaning pressors Follow chest x-rays PT/OT when able Total critical care time spent 47 minutes, time excludes any procedures or educational time REVIEW OF SYSTEMS: 12 point ROS reviewed with patient. Pertinent positives mentioned above. Otherwise negative. PHYSICAL EXAM: GENERAL: Patient comfortable in bed, HEENT: EOMI, Sclera non icteric, moist mucosa NECK: Supple, no JVD, trachea midline LUNGS: Clear breath sounds bilaterally. No wheezes HEART: Regular rate and rhythm. Normal S1 and S2, without murmurs ABD: Abdomen soft, nontender. Bowel sounds present EXT: No clubbing cyanosis or edema NEURO: Awake alert and oriented Vital Signs (last 8hr) Date Time Temp Pulse Resp B/P (MAP) Pulse Ox O2 Delivery O2 Flow Rate FiO2 02/17/25 10:00 105 18 120/52 (74) 98 02/17/25 09:45 105 13 105/46 (65) 97 97/57 (70) 02/17/25 09:30 105 20 116/49 (71) 95 02/17/25 09:15 105 20 120/51 (74) 97 02/17/25 09:00 106 16 100/46 (64) 99 02/17/25 08:45 105 18 112/49 (70) 99 114/62 (79) 02/17/25 08:30 104 21 115/52 (73) 98 02/17/25 08:15 103 23 124/56 (78) 98 02/17/25 08:00 98 Nasal Cannula* 4 36 02/17/25 08:00 104 18 114/52 (72) 99 02/17/25 08:00 98.2 105 19 99 Nasal Cannula 4.0 02/17/25 07:45 106 13 112/59 (76) 96 118/64 (82) 02/17/25 07:30 104 14 109/59 (76) 97 02/17/25 07:15 106 20 105/49 (67) 98 02/17/25 07:00 105 22 113/53 (73) 98 109/74 (86) 02/17/25 06:58 104 14 N/Cannula Low lpm 5.0 40 02/17/25 06:45 105 21 111/51 (71) 100 113/63 (80) 02/17/25 06:15 105 17 112/51 (71) 99 111/69 (83) 02/17/25 06:00 106 20 112/51 (71) 99 40 111/71 (84) 02/17/25 05:45 106 18 107/54 (71) 99 124/69 (87) 02/17/25 05:30 106 22 128/60 (82) 98 113/75 (88) 02/17/25 05:15 107 22 122/57 (78) 98 126/77 (93) 02/17/25 05:00 106 22 79/60 (66) 100 40 116/71 (86) 02/17/25 04:45 104 19 101/48 (65) 97 106/65 (79) 02/17/25 04:30 106 21 98/46 (63) 97 111/66 (81) 02/17/25 04:15 104 21 96/47 (63) 97 101/51 (68) 02/17/25 04:01 98 Nasal Cannula* 5 40 02/17/25 04:00 99.7 105 20 112/55 (74) 98 40 117/63 (81) 02/17/25 03:45 105 20 107/50 (69) 98 102/55 (71) 02/17/25 03:30 105 18 99/49 (66) 98 101/60 (74) 02/17/25 03:15 105 25 118/56 (76) 98 115/64 (81) 02/17/25 03:00 108 21 130/60 (83) 98 40 124/70 (88) LABS: Hematology Labs: Test 02/16/25 04:29 Range/Units White Blood Count 21.0 H 4.8-10.8 K/uL Red Blood Count 2.85 L 4.50-6.20 MIL/uL Hemoglobin 8.5 L 14.0-18.0 g/dL Hematocrit 25.1 L 42-54 % Mean Corpuscular Volume 88.1 79-99 fL Mean Corpuscular Hemoglobin 29.8 27.0-33.0 pg Mean Corpuscular Hemoglobin Concent 33.9 32.0-36.0 g/dL Red Cell Distribution Width 14.7 11.0-15.5 % Platelet Count 122 L 130-400 K/uL Mean Platelet Volume 11.4 H 7.5-10.5 fL Nucleated Red Blood Cells 0.0 0.0-0.19 % Chemistry Labs: Test 02/17/25 06:10 02/17/25 04:29 02/16/25 04:29 Range/Units Whole Blood Glucose 164 H 70-110 MG/DL Sodium Level 141 136-145 mmol/L Potassium Level 3.7 3.5-5.1 mmol/L Chloride Level 99 L 101-111 mmol/L Carbon Dioxide Level 23 21-32 mmol/L Blood Urea Nitrogen 25 H 7-18 mg/dL Creatinine 1.2 0.5-1.3 mg/dL Glomerular Filtration Rate Calc 63 >90 mL/min Random Glucose 176 H 70-105 mg/dL Total Calcium 8.9 8.5-10.1 mg/dL Magnesium Level 1.70 L 1.80-2.40 mg/dL Total Bilirubin 1.4 H 0.2-1.0 mg/dL Aspartate Amino Transf (AST/SGOT) 44 H 10-37 U/L Alanine Aminotransferase (ALT/SGPT) 22 12-78 U/L Alkaline Phosphatase 59 50-136 U/L Total Protein 5.6 L 6.0-8.3 g/dL Albumin 2.3 L 3.5-5.0 g/dL Ionized Calcium 1.10 L 1.15-1.33 MMOL/L DIAGNOSTICS / RADIOLOGY RESULTS: [ ] PLAN NEURO: Minimize central acting medications as possible. Fall Precautions. Well lighted room through the day and minimize interruptions through the night to prevent acute delirium. PULMONARY: Supplemental 02 as needed Titrate Fio2 to keep Spo2 > or = 90% DuoNebs and CPT as needed IS hourly while awake for pulmonary hygiene Out of bed to chair as tolerated VAP Bundle Vent/BIPAP Settings: [ ] Driving pressure: [ ] P Plat: [ ] Static C: [ ] Static R: [ ] P/F Ratio: [ ] CARDIOVASCULAR: Follow hemodynamics. Titrate vasopressor to keep MAP >65 or systolic blood pressure >95mmHg DIPS: [ ] LINES: [ ] GI & NUTRITION: Continue nutritional support Aspirations precautions Prokinetic agents and laxatives as needed KIDNEYS & ELECTROLYTES: Strict monitoring of intake and output Daily weights Avoid nephrotoxic agents Monitor electrolytes and replace as needed Goal urine output of 30mL/hr or 0.5mL/kg/hr Urine output: [ ] Fluid Balance: [ ] ENDOCRINE: Maintain blood glucose between 100-180 at all times. Insulin sliding scale for blood glucose management INFECTIOUS DISEASE: Trend temperature. Caldwell-culture if febrile. Micro: [ ] Antibiotics: [ ] HEMATOLOGY & COAGULATION: Monitor H&H. Keep Hgb > 7 Transfuse 1 unit of PRBC for Hgb < 7 Transfuse 1 pack of platelets of platelets < 20, 000 Watch for any signs and symptoms of bleeding SKIN: Pressure ulcer prevention per facility protocol Rehab: PT/OT Prophylaxis: GI: [ ] DVT: [ ] Code Status: Full Resuscitation Disposition: [ ] Case was discussed and seen with my supervising physician. The above plan was formulated and agreed upon. MAGGIE JARRELL PAC Feb 17, 2025 10:47
[2025-02-17 11:19] LABS: ABG BASE EXCESS -2.5 mmol/L (-2.0-3.0); ABG HCO3 20.4 mmol/L (21.0-28.0); ABG OXYGEN SATURATION 96.8 % (94.0-98.0); ABG PCO2 29 mmHg (35-48); ABG PH 7.472 (7.350-7.450); CARBON MONOXIDE 0.1 % (0.5-1.5); DEVICE COMMENT ALINE; PO2, ARTERIAL BG 95.0 mmHg (83.0-108.0); TEMPERATURE, CELSIUS BG 37.0 CELSIUS (35.5-37.0)
--- NOTE | 2025-02-17 12:08 | NUR ---
[facility] ICU Skin Assessment: Patient assessed by wound healing team. Patient with no wounds or skin breakdown noted. Assessment and recommendations provided to primary nurse. Education provided.
--- NOTE | 2025-02-17 14:33 | PN ---
[facility] PROGRESS NOTE Date of Service: Feb 17, 2025 Time of Service: 14:24 HISTORY OF PRESENT ILLNESS: This is a 74-year-old male,a [employer] by rastafarian whith past medical history of diabetes, hyperlipidemia and [place]/coronary artery disease with cardiac stent who presented to the Ed for complaints of midsternal chest pain that is non radiating associated with diaphoresis and this happened when patient was laying down in bed aroun 11:50 pm last night and decided to come to the ED for evaluation.Patient reports pain was persistent.As per patient he had a history of heart attack before and underwent a stent placement.Patient reports the only medication he is taking is Metformin.Patient states he is supposed to be on Aspirin but has stopped taking it.Patient reports he occasionally drinks beer and last drink was yesterday ,had 2 beers he said. Seen and examined patient in the ER awake,alert and coherent,appears comfortable.Patient denies fever,chills,cough,nausea,vomiting,palpitation and shortness of breath. Latest vital signs temperature 98.2, heart rate 75, blood pressure 124/70 saturation 97% on room air. Labs: CBC unremarkable. Chloride 99, BUN 21, random glucose 469 to 439 to 327. Troponin from . ECG result revealed revealed sinus rhythm heart rate 85 with atrial premature complex anterolateral infarct age indeterminate. Second EKG result revealed sinus rhythm heart rate 73 with left anterior fascicular block. Probable anterolateral infarct age indeterminate. Abnormal T consider ischemia lateral leads.. Chest x-ray result revealed no acute cardiopulmonary process is evident. While in the ER patient received 1500 mL NS bolus, insulin 5 units IV, aspirin 325 mg p.o. and patient was started on heparin drip per ACS protocol. SUBJECTIVE: 02/10/25: Patient was seen and evaluated in ED9. Patient was alert, awake and orientedX3. Patient reports that he doesn't have any chest pain today. Patient reports occasional shortness of breath during nights. Patient denies any shortness of breath, nausea, vomiting, palpitations and lightheadedness. Patient denies any abdominal pain, burning urination. Patient mentions that he only takes metformin 3-4 times per week and has stopped taking aspirin because it wasn't reconciled. Troponin from . 2D ECHO was done, pending results. Patient is currently on Heparin drip 02/11/25: Patient was evaluated at the bedside this morning. No overnight event. He is AAO x3. patient reported that he does not have chest pain or shortness of breath. He is hemodynamically stable. The labs remarkable for potassium 3.3, magnesium 1.6, HbA1c 13.9, troponin 51313. Left heart catheterization revealed severe triple-vessel disease. Echocardiogram revealed 25% ejection fraction with segmental akinesis. CT surgery was consulted who recommended CABG with Impella left ventricle assist. Family to decide about the procedure. He is currently on heparin drip, aspirin. Endocrinology on board. Rest of the plan as discussed below. 02/12/25: Patient was evaluated at the bedside this morning. No overnight event. He is AAO x3. patient reported that he does not have chest pain or shortness of breath. He is hemodynamically stable. Cardiology is on board and Dr. Blanton have suggested low-dose beta estela like metoprolol tartrate 12.5 mg b.i.d. for his heart failure. Dr Kaur still recommends CABG with 5.5 Impella LVAD and the patient agrees to it. We will continue Entresto, Aldactone, Jardiance, aspirin, Lasix as per CT surgeon recommendations. Today his potassium is 3.1 and we would like to be above 4 for CABG patients. So we will replace potassium 02/13/25: Patient was seen and evaluated in room 201. Patient reports feeling better. patient denies any chest pain, shortness of breath. He is continuing on Entresto, Aldactone, Jardiance, aspirin, Lasix as per CT surgeon recommendations.Patients Potassium today is 3.7, will continue replacing potassium. Patients was present along with the patient, she has a few question about the CABG procedure which she wanted to ask Dr. Pacheco. 02/14/25. Patient was undergoing CABG procedure today in the morning. 02/15/25: Patient was seen and evaluated in room 213. Patient status post CABG day 1. Patient denies any fever, chills, shortness of breath. Patient complaints of pain along the incision. Patient is on IABP and Impella support. patient is on Vasopressin and Norepinephrine drip. Entresto, Aldactone, Jardiance were discontinued by Dr. Pacheco. CT surgery are on the case and will follow their recommendations. 02/16/25: Patient was seen and evaluated in room 213. Patient status post CABG day 2. patient was asleep when we went bedside. Spoke with the nurse regarding overnights and she mentioned that patient was a bit confused in the night but later improved with sleep. Patient is continuing on Epinephrine drip. Patient was weaned off IABP and is currently only on Impella. Patient was started on Vancomycin and cefepime due to elevated WBC levels and findings suggestive of pneumonia on chest x-ray 02/17/25: Patient was seen and evaluated in room 213. Patient status post CABG day 2. patient was asleep when we went bedside. Spoke with the nurse regarding overnights and he mentioned that patient was started on lasix protocol. Patient is continuing on Epinephrine drip and Impella. Critical care are on the case and will follow their recommendations. REVIEW OF SYSTEMS CONSTITUTIONAL: Denies fevers, chills, or night sweats. No unintentional weig ht loss reported. NEUROLOGICAL: Denies headache, amaurosis fugax, motor weakness, sensory deficit, vertigo/spinning sensation, gait abnormalities, or tremors. ENT: No hearing loss, otalgia, otorrhea, rhinitis, rhinorrhea, hoarseness, or sore throat. CARDIOVASCULAR: Denies chest pain, dyspnea on exertion, orthopnea, paroxysmal nocturnal dyspnea, palpitations, life-threatening arrhythmias, claudication. PULMONARY: Denies any shortness of breath, cough, phlegm/sputum, hemoptysis, pleuritic chest pain. SLEEP: Denies morning headaches, daytime somnolence or napping. Denies difficulty falling asleep, staying asleep, waking from sleep. Denies knowledge of snoring. GASTROINTESTINAL: Denies any type of dysphagia to either liquids or solids. Denies nausea, vomiting, pyrosis, early satiety, abdominal pain, diarrhea, constipation, or changes in stool consistency or caliber. Denies coffee-ground emesis, hematemesis, hematochezia, or melanotic stools. GENITOURINARY: Denies frequency, urgency, nocturia, hematuria or incontinence (Storage/Irritative symptoms.) Low urinary stream, straining to void, urinary intermittency or hesitancy, splitting of the voiding stream, terminal dribbling. ENDOCRINOLOGIC: Denies polyuria, polydipsia, polyphagia or heat/cold intolerances. HEMATOLOGIC: Denies thrombophilia/previous clots, or coagulopathy/bleeding disorders. ONCOLOGIC: Denies personal history of malignancy. DERMATOLOGIC: Denies rashes or pruritus. PSYCHIATRIC: Denies any suicidal or homicidal ideation. Denies hallucinations. PHYSICAL EXAM GENERAL APPEARANCE: The patient is awake, alert, and oriented, in no acute cardiopulmonary distress. NEUROLOGICAL: Cranial nerves II-XII grossly intact. Motor is 5/5 in bilateral upper and lower extremities proximal to distal. No sensory deficits. HEENT: Face is symmetric. Pupils are equal and reactive. Extraocular movements are intact. NECK: Supple. No JVD. No thyromegaly. No submental, submandibular, pre- /postauricular, occipital or supraclavicular lymphadenopathy. CHEST: Normal chest expansion. No Telemetry. LUNGS: Absence of any rales, rhonchi or any wheezing. CARDIOVASCULAR: Regular. S1 and S2 normal. No appreciable rubs, murmurs or gallops. ABDOMEN: Soft, nontender, and nondistended. There is no rebound, voluntary guarding, or rigidity. : Deferred. No De Jesus. EXTREMITIES: Non-edematous and not cyanotic. No clubbing. Good capillary refill. SKIN: No skin breakdown. Vital Signs (last 8hr) Date Time Temp Pulse Resp B/P (MAP) Pulse Ox O2 Delivery O2 Flow Rate FiO2 02/17/25 12:00 98 Nasal Cannula* 4 36 02/17/25 12:00 98.8 02/17/25 11:32 105 14 N/Cannula Low lpm 4.0 36 02/17/25 10:00 105 18 120/52 (74) 98 02/17/25 09:45 105 13 105/46 (65) 97 97/57 (70) 02/17/25 09:30 105 20 116/49 (71) 95 02/17/25 09:15 105 20 120/51 (74) 97 02/17/25 09:00 106 16 100/46 (64) 99 02/17/25 08:45 105 18 112/49 (70) 99 114/62 (79) 02/17/25 08:30 104 21 115/52 (73) 98 02/17/25 08:15 103 23 124/56 (78) 98 02/17/25 08:00 98 Nasal Cannula* 4 36 02/17/25 08:00 104 18 114/52 (72) 99 02/17/25 08:00 98.2 105 19 99 Nasal Cannula 4.0 02/17/25 07:45 106 13 112/59 (76) 96 118/64 (82) 02/17/25 07:30 104 14 109/59 (76) 97 02/17/25 07:15 106 20 105/49 (67) 98 02/17/25 07:00 105 22 113/53 (73) 98 109/74 (86) 02/17/25 06:58 104 14 N/Cannula Low lpm 5.0 40 02/17/25 06:45 105 21 111/51 (71) 100 113/63 (80) LABS: Laboratory: Test 02/17/25 11:18 02/17/25 06:10 02/17/25 04:29 02/17/25 03:12 Range/Units Blood Gas Specimen Type Arterial Arterial Blood pH 7.472 H 7.350-7.450 Arterial Blood Partial Pressure CO2 29 L 35-48 mmHg Arterial Blood Partial Pressure O2 95.0 83.0-108.0 mmHg Arterial Blood HCO3 20.4 L 21.0-28.0 mmol/L Arterial Blood Oxygen Saturation 96.8 94.0-98.0 % Arterial Blood Base Excess -2.5 L -2.0-3.0 mmol/L Hemoglobin (Blood Gas) 9.4 L 13.5-17.5 g/dL Sodium (Blood Gas) 137 136-145 MMOL/L Bedside Potassium (Blood Gas) 3.9 3.4-4.5 MMOL/L Bedside Chloride (Blood Gas) 98 98-107 MMOL/L Bedside Glucose (Blood Gas) 188 H 65-95 MG/DL Bedside Ionized Calcium (Blood Gas) 1.14 L 1.15-1.33 MMOL/L Bedside Lactic Acid (Blood Gas) 1.57 H 0.36-0.75 MMOL/L Blood Gas Temperature 37.0 35.5-37.0 CELSIUS Blood Gas Flow-by 4.00 0.00-15.00 L/min Blood Gas Vent Mode YAQUELIN JOSHI ROOM AIR FiO2 36.0 % Blood Gas Specimen Yari MI Whole Blood Glucose 164 H 70-110 MG/DL Sodium Level 141 136-145 mmol/L Potassium Level 3.7 3.5-5.1 mmol/L Chloride Level 99 L 101-111 mmol/L Carbon Dioxide Level 23 21-32 mmol/L Blood Urea Nitrogen 25 H 7-18 mg/dL Creatinine 1.2 0.5-1.3 mg/dL Glomerular Filtration Rate Calc 63 >90 mL/min Random Glucose 176 H 70-105 mg/dL Total Calcium 8.9 8.5-10.1 mg/dL Magnesium Level 1.70 L 1.80-2.40 mg/dL Total Bilirubin 1.4 H 0.2-1.0 mg/dL Aspartate Amino Transf (AST/SGOT) 44 H 10-37 U/L Alanine Aminotransferase (ALT/SGPT) 22 12-78 U/L Alkaline Phosphatase 59 50-136 U/L Total Protein 5.6 L 6.0-8.3 g/dL Albumin 2.3 L 3.5-5.0 g/dL Blood Gas Respiration Rate 5.0 min. Test 02/16/25 04:29 Range/Units White Blood Count 21.0 H 4.8-10.8 K/uL Red Blood Count 2.85 L 4.50-6.20 MIL/uL Hemoglobin 8.5 L 14.0-18.0 g/dL Hematocrit 25.1 L 42-54 % Mean Corpuscular Volume 88.1 79-99 fL Mean Corpuscular Hemoglobin 29.8 27.0-33.0 pg Mean Corpuscular Hemoglobin Concent 33.9 32.0-36.0 g/dL Red Cell Distribution Width 14.7 11.0-15.5 % Platelet Count 122 L 130-400 K/uL Mean Platelet Volume 11.4 H 7.5-10.5 fL Nucleated Red Blood Cells 0.0 0.0-0.19 % Ionized Calcium 1.10 L 1.15-1.33 MMOL/L Current Medications Medications (Trade) Dose Ordered Sig/Carol Route PRN Reason Start Time Stop Time Status Last Admin Dose Admin Acetaminophen (TYLenol 325MG TAB) 650 mg Q4H PRN PO MILD PAIN (1-3) 02/10/25 05:00 02/14/25 10:05 DC Acetaminophen (TYLenol 325MG TAB) 650 mg Q4H PRN PO Temp >38.3C(AFTER EXTUBATION) 02/14/25 10:00 03/16/25 09:59 Acetaminophen (TYLenol 325MG TAB) 650 mg Q6H PRN PO TEMPERATURE GREATER THAN 101.5 02/10/25 05:00 02/14/25 10:17 DC 02/12/25 17:13 650 MG Acetaminophen (TYLenol 325MG TAB) 650 mg Q6H PRN PO MILD PAIN (1-3) 02/14/25 10:00 03/16/25 09:59 Acetaminophen (TYLenol 650MG SUPPOSITORY) 650 mg Q4H PRN RC Temp >38.3C WHILE INTUBATED 02/14/25 10:00 03/16/25 09:59 Acetaminophen (acetaMINOPHEN 1,000MG/100ML) 1,000 mg Q6H6 IV 02/14/25 14:00 02/15/25 13:59 DC 02/15/25 12:14 1,000 MG Albumin Human 250 ml @ 0 mls/hr AD IV 02/14/25 15:30 02/19/25 15:29 Albumin Human 250 ml @ 0 mls/hr AD PRN IV IF HEMODYNAMICALLY UNSTABLE 02/14/25 10:00 02/14/25 14:42 DC 02/14/25 14:42 500 MLS/HR Aminocaproic Acid 70296 mg/Sodium Chloride 310 ml @ 25 mls/hr AD IV 02/14/25 10:00 02/14/25 10:19 DC Aminocaproic Acid 34341 mg/Sodium Chloride 480 ml @ 0 mls/hr AD PRN IV BLEEDING CONTROL 02/14/25 06:30 03/16/25 06:29 Aminocaproic Acid 00006 mg/Sodium Chloride 480 ml @ 0 mls/hr AD PRN IV BLEEDING CONTROL 02/14/25 07:00 02/14/25 06:51 DC Aspirin (Aspirin 325mg Tab) 325 mg ONCE PO 02/10/25 14:30 02/10/25 17:22 DC 02/10/25 14:32 325 MG Aspirin (Aspirin 81mg Ec Tab) 81 mg DAILY PO 02/10/25 09:00 03/12/25 08:59 02/17/25 07:45 81 MG Atorvastatin Calcium (LIPItor 40MG) 40 mg HS PO 02/14/25 21:00 03/16/25 20:59 02/16/25 20:03 40 MG Calcium Gluconate 1 gm/Sodium Chloride 60 ml @ 200 mls/hr AD PRN IV HYPOCALCEMIA 02/14/25 10:00 03/16/25 09:59 02/17/25 11:47 200 MLS/HR Cefazolin Sodium (Ancef) 2 gm ONCALL IVP 02/13/25 20:00 02/14/25 18:51 DC 02/14/25 08:50 2 GM Cefazolin Sodium (Ancef) 2 gm Q8H IVPB 02/14/25 15:00 02/15/25 07:01 DC 02/15/25 06:25 2 GM Cefepime HCl (MAXipime 1 GM vial) 1 gm Q12H IVPB 02/16/25 10:30 02/26/25 10:29 02/17/25 09:45 1 GM Clopidogrel Bisulfate (plaVIX 300MG TAB) 600 mg ONCE PO 02/10/25 14:00 02/10/25 17:22 DC 02/10/25 14:19 600 MG Clopidogrel Bisulfate (plaVIX 75MG) 75 mg DAILY PO 02/11/25 09:00 02/11/25 07:28 DC Dexmedetomidine/ Sodium Chloride (PRECEdex 400MCG/ 100ML-NS) 400 mcg PROTOCOL IV 02/14/25 10:00 02/15/25 09:59 DC Dextrose (D50w) 50 ml AD PRN IV HYPOGLYCEMIA PROTOCOL 02/10/25 05:00 02/14/25 10:17 DC Dextrose (D50w) 50 ml AD PRN IV HYPOGLYCEMIA PROTOCOL 02/14/25 10:00 03/16/25 09:59 Docusate Sodium (COLace 100MG CAP) 100 mg BID PO 02/14/25 21:00 03/16/25 20:59 02/16/25 20:03 100 MG Empaglifozin (Jardiance 10mg) 10 mg DAILY PO 02/10/25 14:30 02/14/25 09:59 DC 02/13/25 10:52 10 MG Enoxaparin Sodium (Lovenox) 30 mg DAILY SQ 02/17/25 09:00 03/19/25 08:59 Epinephrine HCl 10 mg/Sodium Chloride 250 ml @ 0 mls/hr AD PRN IV TITRATE 02/14/25 06:30 03/16/25 06:29 02/16/25 00:51 4.32 MLS/HR Epinephrine HCl 10 mg/Sodium Chloride 250 ml @ 0 mls/hr AD PRN IV TITRATE 02/14/25 07:00 02/14/25 06:51 DC Epinephrine HCl 10 mg/Sodium Chloride 250 ml @ 0 mls/hr AD PRN IV POST-OP CARDIOVASCULAR ORDERS 02/14/25 10:00 02/14/25 10:14 DC Famotidine (Pepcid 20mg Vial) 20 mg BID IV 02/14/25 21:00 02/16/25 07:58 DC 02/15/25 20:15 20 MG Famotidine (Pepcid 20mg Tab) 20 mg BID PO 02/16/25 09:00 02/17/25 07:09 DC 02/16/25 20:03 20 MG Famotidine (Pepcid 20mg Tab) 20 mg DAILY PO 02/10/25 09:00 02/14/25 09:59 DC 02/13/25 10:53 20 MG Famotidine (Pepcid 20mg Tab) 20 mg DAILY PO 02/17/25 09:00 03/18/25 08:59 02/17/25 07:45 20 MG Furosemide (LASix 20MG TAB) 20 mg DAILY PO 02/11/25 09:00 02/14/25 09:59 DC 02/13/25 10:52 20 MG Furosemide (LASix 20MG TAB) 20 mg Q12H PO 02/16/25 09:00 02/16/25 10:21 DC 02/16/25 08:19 20 MG Furosemide (LASix 20MG VIAL) 20 mg ONCE IV 02/10/25 17:00 02/10/25 21:00 DC 02/10/25 17:00 20 MG Furosemide (LASix 20MG VIAL) 20 mg ONCE IV 02/11/25 09:00 02/11/25 07:43 DC Furosemide (LASix 20MG VIAL) 20 mg Q12H IV 02/15/25 09:00 02/16/25 08:59 DC 02/15/25 20:16 20 MG Furosemide 100 mg/ Sodium Chloride 100 ml @ 0 mls/hr PROTOCOL IV 02/16/25 10:30 03/18/25 10:29 02/17/25 14:05 10 MLS/HR Glucagon (Glucagon 1mg Kit) 1 mg AD PRN IM HYPOGLYCEMIA PROTOCOL 02/10/25 05:00 02/14/25 10:17 DC Glucagon (Glucagon 1mg Kit) 1 mg AD PRN IM HYPOGLYCEMIA PROTOCOL 02/14/25 10:00 03/16/25 09:59 Heparin Sodium (Porcine) (HEParin 5,000 UNIT VIAL) *calculation based on ACTUAL B... AD PRN IV HEPARIN PROTOCOL 02/12/25 21:00 02/14/25 09:59 DC 02/12/25 20:16 4,000 UNIT Heparin Sodium/ Dextrose 250 ml @ 0 mls/hr PROTOCOL IV 02/10/25 03:00 02/10/25 17:22 DC 02/10/25 03:00 16.2 MLS/HR Heparin Sodium/ Dextrose 250 ml @ 0 mls/hr Q6H IV 02/11/25 06:30 02/14/25 09:59 DC 02/13/25 13:01 9 MLS/HR Home Med (Home Medication) Brimonidine Tartrate/Timolol (Brimonidine-[place]... DAILY OP 02/18/25 09:00 03/20/25 08:59 Insulin Glargine (LANtus 100 UNITS/ML 10 ML VIAL) 12 units DAILY08 SQ 02/13/25 08:00 02/14/25 09:59 DC 02/13/25 10:51 12 UNITS Insulin Glargine (LANtus 100 UNITS/ML 10 ML VIAL) 15 units DAILY08 SQ 02/11/25 08:00 02/13/25 05:24 DC 02/12/25 08:54 15 UNITS Insulin Human Regular (humuLIN R 100 UNIT/ML 3ML) 3 unit TIDAC SQ 02/12/25 07:30 02/14/25 09:59 DC 02/12/25 16:31 3 UNIT Insulin Human Regular (humuLIN R 100 UNIT/ML 3ML) INSULIN SLIDING SCAL... ACHS SQ 02/16/25 11:30 03/18/25 11:29 02/17/25 11:36 2 UNIT Insulin Human Regular (humuLIN R 100 UNIT/ML 3ML) INSULIN SLIDING SCAL... Q4H SQ 02/10/25 05:00 02/10/25 11:10 DC 02/10/25 09:15 6 UNIT Insulin Human Regular (humuLIN R 100 UNIT/ML 3ML) INSULIN SLIDING SCAL... Q6H6 SQ 02/10/25 12:00 02/14/25 09:59 DC 02/11/25 17:29 2 UNIT Insulin Human Regular 100 unit/ Sodium Chloride 100 ml @ 0 mls/hr AD IV 02/14/25 10:00 02/16/25 09:59 DC 02/15/25 06:30 3 MLS/HR Lactulose (Constulose 20gm/ 30ml Udcup) 20 gm BID PRN PO CONSTIPATION 02/14/25 10:00 03/16/25 09:59 Latanoprost (Xalatan) 1 DROP FOR EACH EYE HS OP 02/17/25 21:00 03/19/25 20:59 Magnesium Hydroxide (Milk Of Magnesium 30ml) 30 ml DAILY PRN PO CONSTIPATION 02/14/25 10:00 03/16/25 09:59 Magnesium Sulfate 50 ml @ 12.5 mls/hr AD PRN IV MAG LEVEL LESS THAN 2.0 02/14/25 10:00 03/16/25 09:59 02/17/25 05:49 12.5 MLS/HR Magnesium Sulfate 50 ml @ 0 mls/hr PROTOCOL PRN IV OTHER [SEE ORDER COMMENTS] 02/10/25 05:00 02/14/25 10:17 DC 02/12/25 07:13 25 MLS/HR Metoprolol Tartrate (loprESSOR) 12.5 mg BID PO 02/12/25 09:00 02/14/25 09:59 DC 02/14/25 06:44 12.5 MG Metoprolol Tartrate (loprESSOR) 12.5 mg BID PO 02/16/25 09:00 03/18/25 08:59 Morphine Sulfate (morPHINE 2MG SYG) 0.5 mg Q2H PRN IV MODERATE PAIN (4-6) IF NPO 02/14/25 10:00 02/15/25 09:59 DC Morphine Sulfate (morPHINE 2MG SYG) 1 mg Q2H PRN IV SEVERE PAIN (7-10) IF NPO 02/14/25 10:30 02/21/25 10:29 02/14/25 14:23 1 MG Nitroglycerin (Nitrostat) 0.4 mg PROTOCOL PRN SL CHEST PAIN 02/10/25 05:00 02/14/25 09:59 DC Nitroglycerin/ Dextrose 0 ml @ 0 mls/hr AD IV 02/14/25 10:00 02/17/25 09:59 DC Norepinephrine Bitartrate 250 ml @ 0 mls/hr AD PRN IV TITRATE 02/14/25 06:30 03/16/25 06:29 02/17/25 01:06 1.9 MLS/HR Norepinephrine Bitartrate 250 ml @ 0 mls/hr AD PRN IV TITRATE 02/14/25 07:00 02/14/25 06:51 DC Norepinephrine Bitartrate 8 mg/ Dextrose 250 ml @ 0 mls/hr AD PRN IV POST-OP CARDIOVASCULAR ORDERS 02/14/25 10:00 02/14/25 10:14 DC Ondansetron HCl (zoFRAN 4MG INJ) 4 mg Q6H PRN IV NAUSEA/VOMITING 02/10/25 05:00 02/14/25 10:17 DC Ondansetron HCl (zoFRAN 4MG INJ) 4 mg Q6H PRN IV NAUSEA/VOMITING 02/14/25 10:00 03/16/25 09:59 Pharmacy Profile Note (Pharmacy Communication) 1 each ONCE MISC 02/14/25 18:00 02/14/25 18:27 DC Potassium Phosphate 250 ml @ 42 mls/hr AD PRN IV LOW PHOS LEVEL 02/14/25 10:00 03/16/25 09:59 Potassium Chloride 100 ml @ 100 mls/hr AD PRN IV POTASSIUM PROTOCOL 02/10/25 05:00 02/15/25 06:27 DC 02/15/25 05:43 100 MLS/HR Potassium Chloride 100 ml @ 100 mls/hr AD PRN IV HYPOKALEMIA 02/14/25 10:00 03/16/25 09:59 02/17/25 14:16 100 MLS/HR Potassium Chloride (K-Dur/Klor-Con 20meq) 20 meq AD PRN PO POTASSIUM PROTOCOL 02/10/25 05:00 03/12/25 04:59 02/13/25 05:45 20 MEQ Potassium Chloride (KCl 10% Elixir 20meq/15ml) 20 meq AD PRN PO POTASSIUM PROTOCOL 02/10/25 05:00 03/12/25 04:59 02/17/25 05:52 20 MEQ Propofol 100 ml @ 0 mls/hr AD PRN IV SEDATION 02/14/25 10:00 02/18/25 09:59 Sacubitril/ Valsartan (Entresto 24 Mg-26 Mg Tablet) 0.5 each BID PO 02/10/25 21:00 02/14/25 09:59 DC 02/13/25 21:11 0.5 EACH Sodium Bicarbonate 25 meq/Dextrose 1,025 ml @ 0 mls/hr Q0M IV 02/14/25 18:00 03/16/25 17:59 02/14/25 18:19 0 MLS/HR Sodium Bicarbonate (Sodium Bicarb 50meq 50ml Vial) 50 meq AD PRN IV OTHER[SEE DOSING INSTRUCTIONS] 02/14/25 10:00 02/17/25 09:59 DC 02/16/25 15:25 50 MEQ Sodium Chloride 500 ml @ 0 mls/hr AD IV 02/14/25 10:00 03/16/25 09:59 Sodium Chloride 1,000 ml @ 10 mls/hr ONCE IV 02/14/25 10:00 02/15/25 09:59 DC Sodium Chloride 1,000 ml @ 100 mls/hr Q10H IV 02/10/25 05:00 02/10/25 17:22 DC 02/10/25 14:20 100 MLS/HR Sodium Chloride (NS Flush 10ml) 10 ml Q8H PRN IVP IV LINE FLUSH 02/14/25 10:00 03/16/25 09:59 Spironolactone (Aldactone 25mg) 25 mg DAILY PO 02/10/25 14:30 02/14/25 09:59 DC 02/13/25 10:52 25 MG Tramadol HCl (UltRAM) 25 mg Q6H PRN PO MODERATE PAIN (4-6) 02/14/25 10:00 02/19/25 09:59 Tramadol HCl (UltRAM) 50 mg Q6H PRN PO SEVERE PAIN (7-10) 02/14/25 10:00 02/19/25 09:59 Vasopressin 40 units/Sodium Chloride 40 ml @ 0 mls/hr PROTOCOL IV 02/14/25 13:00 03/16/25 12:59 02/14/25 22:11 1.8 MLS/HR DIAGNOSTICS / RADIOLOGY: [place] [id number] [address] IMAGING REPORT Signed PATIENT: EMMY GRACE MR#: [id number] : 1950 SEX: M AGE: 74 LOCATION: 2BH ORDER 230 STATUS: ADM IN REPORT#: [id number] SERVICE 0400 REASON: s/p CABG ORDERING PHYSICIAN: FRANKY PACHECO MD PROCEDURE: CXR1VW - CHEST 1VW EXAM: CR Chest, 1 View. CLINICAL HISTORY: s/p CABG COMPARISON: 02/16/2025 FINDINGS: The right IJ line terminates at the SVC. LUNGS: Small stable left pleural effusion with adjacent lung atelectasis. The right lung remains clear. PLEURAL SPACES: No pneumothorax. MEDIASTINUM: Cardiac size is stable. Post sternotomy changes. BONES: No acute osseous abnormality. IMPRESSION: 1. Small stable left pleural effusion with adjacent lung atelectasis. 2. Right IJ line terminates at the SVC. No significant interval changes since the prior study. /[place] DICTATED BY: LAN BURR Jr., MD DATE: 02/17/25949 ELECTRONICALLY SIGNED BY: LAN BURR Jr., MD DATE: 02/17/2550 ASSESSMENT: Chest pain rule out ACS: NSTEMI POA Suspected pneumonia findings on Chest X-ray Hyperglycemia secondary to uncontrolled diabetes POA Hyperlipidemia POA Medication noncompliance, POA Obesity POA [place]/Coronary artery disease with cardiac stent POA PLAN: NSTEMI POA: * EKG was done which revealed sinus rhythm heart rate 85 with atrial premature complex anterolateral infarct age indeterminate. Second EKG result revealed sinus rhythm heart rate 73 with left anterior fascicular block. Probable anterolateral infarct age indeterminate. Abnormal T consider ischemia lateral leads. * PERC score was one, Wells score was zero. Very low suspicion for Pulmonary Emb olism. * Chest x-ray done on 02/17/25 show, small stable left pleural effusion with adjacent lung atelectasis. * 2-D ECHO with ejection fraction 25% with segmental akinesis (apical, apical lateral, anteroapical), LDL 89, BNP 488 * Troponin trends 21>174>[id number]>[id number] * Left heart catheterization revealed severe three-vessel CAD with occluded mid LAD, 90% proximal left circumflex, 95% distal RCA, and 90% ostial PDA. * As per CT surgeon recommendations Entresto 0.5 each, Aldactone 25mg, Jardiance 10mg were held. 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 * On aspirin 81 mg p.o. * Patient sstarted on Lasix protocol * Currently on Epinephrine drip. * Patient was started on Lovenox 30mg. Suspected pneumonia findings on Chest X-ray * Chest x-ray done on 02/16/25 show diffuse airspace disease of the left lung, predominantly involving the left lower zone, could be due to an infection or atelectasis. Questionable left pleural effusion. * Chest x-ray done on 02/17/25 show, small stable left pleural effusion with adjacent lung atelectasis. * Patient started on Vancomycin (day2) and cefepime (day2) * WBC count on (02/16/25) - 21 * Will monitor with daily labs. Hyperglycemia secondary to uncontrolled diabetes POA: * HbA1c 13.9, blood glucose 181 * Following the Endocrinology recommendations. He is on Lantus 15 units, low- dose sliding scale insulin and Jardiance 10 mg * We will monitor blood glucose. Hypokalemia Hypomagnesemia Potassium 3.1, magnesium 1.6 We will replete the electrolytes and monitor We want potassium to be minimum of 4-4.5 for CABG patients Ordered 2 doses of potassium 40 mEq per mL once. We will start Slow-Mag oral t.i.d. once and will keep monitoring magnesium levels. Supportive measures * GI prophylaxis with Famotidine * DVT prophylaxis with Lovenox ATTESTATION BY PHYSICIAN I have seen and examined the patient. I reviewed the documentation, medical decision making, and treatment plan as noted by the resident physician above. I agree with the findings and plan of care. Jason Hare IV, MD, SHAJI MD Feb 17, 2025 14:33
--- NOTE | 2025-02-17 15:14 | PN ---
INFECTIOUS DISEASE PROGRESS NOTE Date of Service: Feb 17, 2025 SUBJECTIVE: This 74-year-old male patient is being seen today in the ICU. Patient is status post CABG, February 14, 2025. Chest x-ray shows small stable left pleural effusion with adjacent lung atelectasis. This time he is calm in no respiratory distress. No nausea or vomiting are being reported. He continues on oxygen via nasal cannula2 L. patient remains on vancomycin and cefepime. On Lasix drip. No family at bedside at this time. No acute events are being reported by nurse at this time. REVIEW OF SYSTEMS Unable to obtain. Questions were answered by patient's present at bedside. PHYSICAL EXAM EYES: Anicteric. Pupils equal and reactive. HENT: No oral thrush seen, moist Oral mucosa. NECK: Supple, no JVD or thyromegaly. LUNGS: Good air entry. Crackles on the right side and diminished on the left side. CHEST: Chest tube. Sternal incision. CARDIOVASCULAR: S1, S2 regular. No murmur heard. ABDOMEN: Soft, non tender, bowel sounds present. CENTRAL NERVOUS SYSTEM: Awake, alert, oriented. SKIN: No rashes, no swelling. Vein harvesting surgical incisions to bilateral lower extremities.. LYMPHATICS: No peripheral lymphadenopathy. MUSCULOSKELETAL: No joint swelling, erythema or tenderness. EXTREMITIES: No cyanosis or clubbing. 1+ edema to bilateral feet. BACK: No deformity, no pressure ulcer. GENITOURINARY: No dysuria or hematuria. De Jesus catheter. Vital Sign (Last 12 Hours) 02/17/25 02/17/25 02/17/25 02/17/25 03:15 03:30 03:45 04:00 Temp 99.7 Pulse 105 105 105 105 Resp B/P (MAP) 118/56 (76) 99/49 (66) 107/50 (69) 112/55 (74) 115/64 (81) 101/60 (74) 102/55 (71) 117/63 (81) Pulse Ox 98 98 98 98 FiO2 40 02/17/25 02/17/25 02/17/25 02/17/25 04:01 04:15 04:30 04:45 Pulse 104 106 104 Resp B/P (MAP) 96/47 (63) 98/46 (63) 101/48 (65) 101/51 (68) 111/66 (81) 106/65 (79) Pulse Ox 98 97 97 97 O2 Delivery Nasal Cannula* O2 Flow Rate 5 FiO2 40 02/17/25 02/17/25 02/17/25 02/17/25 05:00 05:15 05:30 05:45 Pulse 106 107 106 106 Resp 22 22 22 18 B/P (MAP) 79/60 (66) 122/57 (78) 128/60 (82) 107/54 (71) 116/71 (86) 126/77 (93) 113/75 (88) 124/69 (87) Pulse Ox 100 98 98 99 FiO2 40 02/17/25 02/17/25 02/17/25 02/17/25 06:00 06:15 06:45 06:58 Pulse 106 105 105 104 Resp 20 17 21 14 B/P (MAP) 112/51 (71) 112/51 (71) 111/51 (71) 111/71 (84) 111/69 (83) 113/63 (80) Pulse Ox 99 99 100 O2 Delivery N/Cannula Low lpm O2 Flow Rate 5.0 FiO2 40 40 02/17/25 02/17/25 02/17/25 02/17/25 07:00 07:15 07:30 07:45 Pulse 105 106 104 106 Resp 20 14 13 B/P (MAP) 113/53 (73) 105/49 (67) 109/59 (76) 112/59 (76) 109/74 (86) 118/64 (82) Pulse Ox 98 98 97 96 02/17/25 02/17/25 02/17/25 02/17/25 08:00 08:00 08:00 08:15 Temp 98.2 Pulse 105 104 103 Resp 18 23 B/P (MAP) 114/52 (72) 124/56 (78) Pulse Ox 99 99 98 98 O2 Delivery Nasal Cannula Nasal Cannula* O2 Flow Rate 4.0 4 FiO2 36 02/17/25 02/17/25 02/17/25 02/17/25 08:30 08:45 09:00 09:15 Pulse 104 105 106 105 Resp 21 18 16 20 B/P (MAP) 115/52 (73) 112/49 (70) 100/46 (64) 120/51 (74) 114/62 (79) Pulse Ox 98 99 99 97 02/17/25 02/17/25 02/17/25 02/17/25 09:30 09:45 10:00 11:32 Pulse 105 105 105 105 Resp 20 13 18 14 B/P (MAP) 116/49 (71) 105/46 (65) 120/52 (74) 97/57 (70) Pulse Ox 95 97 98 O2 Delivery N/Cannula Low lpm O2 Flow Rate 4.0 FiO2 36 02/17/25 02/17/25 12:00 12:00 Temp 98.8 Pulse Ox 98 O2 Delivery Nasal Cannula* O2 Flow Rate 4 FiO2 36 Intake & Output (last 24hrs) 02/16/25 02/16/25 02/17/25 14:59 22:59 06:59 Intake Total 1744.4 ml 1290.6 ml 948.6 ml Output Total 1200 ml 2370 ml 2275 ml Balance 544.4 ml -1079.4 ml -1326.4 ml LABS: Laboratory: Test 02/17/25 11:18 02/17/25 06:10 02/17/25 04:29 02/17/25 03:12 Range/Units Blood Gas Specimen Type Arterial Arterial Blood pH 7.472 H 7.350-7.450 Arterial Blood Partial Pressure CO2 29 L 35-48 mmHg Arterial Blood Partial Pressure O2 95.0 83.0-108.0 mmHg Arterial Blood HCO3 20.4 L 21.0-28.0 mmol/L Arterial Blood Oxygen Saturation 96.8 94.0-98.0 % Arterial Blood Base Excess -2.5 L -2.0-3.0 mmol/L Hemoglobin (Blood Gas) 9.4 L 13.5-17.5 g/dL Sodium (Blood Gas) 137 136-145 MMOL/L Bedside Potassium (Blood Gas) 3.9 3.4-4.5 MMOL/L Bedside Chloride (Blood Gas) 98 98-107 MMOL/L Bedside Glucose (Blood Gas) 188 H 65-95 MG/DL Bedside Ionized Calcium (Blood Gas) 1.14 L 1.15-1.33 MMOL/L Bedside Lactic Acid (Blood Gas) 1.57 H 0.36-0.75 MMOL/L Blood Gas Temperature 37.0 35.5-37.0 CELSIUS Blood Gas Flow-by 4.00 0.00-15.00 L/min Blood Gas Vent Mode YAQUELIN RN ROOM AIR FiO2 36.0 % Blood Gas Specimen Comment HIWOT Whole Blood Glucose 164 H 70-110 MG/DL Sodium Level 141 136-145 mmol/L Potassium Level 3.7 3.5-5.1 mmol/L Chloride Level 99 L 101-111 mmol/L Carbon Dioxide Level 23 21-32 mmol/L Blood Urea Nitrogen 25 H 7-18 mg/dL Creatinine 1.2 0.5-1.3 mg/dL Glomerular Filtration Rate Calc 63 >90 mL/min Random Glucose 176 H 70-105 mg/dL Total Calcium 8.9 8.5-10.1 mg/dL Magnesium Level 1.70 L 1.80-2.40 mg/dL Total Bilirubin 1.4 H 0.2-1.0 mg/dL Aspartate Amino Transf (AST/SGOT) 44 H 10-37 U/L Alanine Aminotransferase (ALT/SGPT) 22 12-78 U/L Alkaline Phosphatase 59 50-136 U/L Total Protein 5.6 L 6.0-8.3 g/dL Albumin 2.3 L 3.5-5.0 g/dL Blood Gas Respiration Rate 5.0 min. Test 02/16/25 04:29 Range/Units White Blood Count 21.0 H 4.8-10.8 K/uL Red Blood Count 2.85 L 4.50-6.20 MIL/uL Hemoglobin 8.5 L 14.0-18.0 g/dL Hematocrit 25.1 L 42-54 % Mean Corpuscular Volume 88.1 79-99 fL Mean Corpuscular Hemoglobin 29.8 27.0-33.0 pg Mean Corpuscular Hemoglobin Concent 33.9 32.0-36.0 g/dL Red Cell Distribution Width 14.7 11.0-15.5 % Platelet Count 122 L 130-400 K/uL Mean Platelet Volume 11.4 H 7.5-10.5 fL Nucleated Red Blood Cells 0.0 0.0-0.19 % Ionized Calcium 1.10 L 1.15-1.33 MMOL/L ASSESSMENT: Possible hospital-acquired pneumonia. Leukocytosis. 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 Postop anemia. Left Pleural effusion. Diabetes mellitus. Congenital heart failure EF of 20% PLAN: Continue vancomycin as currently ordered. Continue cefepime. We will follow up on the sputum cultures results. Has been started on Lasix drip. Continue oxygen support. Continue GI prophylaxis. Monitor electrolytes. This case was reviewed and discussed with my supervising physician Dr. Mckeon and the above assessment and plan was formulated and agreed upon. LINSEY [facility] Feb 17, 2025 15:14
[2025-02-17 16:29] LABS: ABG BASE EXCESS -0.5 mmol/L (-2.0-3.0); ABG HCO3 22.6 mmol/L (21.0-28.0); ABG OXYGEN SATURATION 95.2 % (94.0-98.0); ABG PCO2 31 mmHg (35-48); ABG PH 7.476 (7.350-7.450); CARBON MONOXIDE 0.1 % (0.5-1.5); DEVICE COMMENT ALINE; PO2, ARTERIAL BG 80.5 mmHg (83.0-108.0); TEMPERATURE, CELSIUS BG 37.0 CELSIUS (35.5-37.0)
[2025-02-17 20:09] LABS: ABG BASE EXCESS -0.5 mmol/L (-2.0-3.0); ABG HCO3 22.1 mmol/L (21.0-28.0); ABG OXYGEN SATURATION 97.6 % (94.0-98.0); ABG PCO2 30 mmHg (35-48); ABG PH 7.489 (7.350-7.450); CARBON MONOXIDE 0.3 % (0.5-1.5); DEVICE COMMENT TED RN, AL; PO2, ARTERIAL BG 107.1 mmHg (83.0-108.0); TEMPERATURE, CELSIUS BG 37.0 CELSIUS (35.5-37.0); VENT MODE, BG 4LNC (ROOM AIR)
[2025-02-17] MEDS: LATANOPROST 2.5 ML DROPS OP SCH (20:19)
[2025-02-18] VITALS (102 sets, daily range): BP systolic 87–258; BP diastolic 45–258; PULSE 77–101; RESP 10–51; TEMP 98.1–98.8; O2SAT 95–98
[2025-02-18 00:25] LABS: ABG BASE EXCESS 1.4 mmol/L (-2.0-3.0); ABG HCO3 24.2 mmol/L (21.0-28.0); ABG OXYGEN SATURATION 97.0 % (94.0-98.0); ABG PCO2 31 mmHg (35-48); ABG PH 7.507 (7.350-7.450); CARBON MONOXIDE 0.3 % (0.5-1.5); DEVICE COMMENT TED RN, AL; PO2, ARTERIAL BG 94.6 mmHg (83.0-108.0); TEMPERATURE, CELSIUS BG 37.0 CELSIUS (35.5-37.0); VENT MODE, BG 4LNC (ROOM AIR)
[2025-02-18 04:15] LABS: ABG BASE EXCESS 0.6 mmol/L (-2.0-3.0); ABG HCO3 23.2 mmol/L (21.0-28.0); ABG PCO2 32 mmHg (35-48); ABG PH 7.479 (7.350-7.450); DEVICE COMMENT TED RN, AL; PO2, ARTERIAL BG 93.1 mmHg (83.0-108.0); TEMPERATURE, CELSIUS BG 37.0 CELSIUS (35.5-37.0); VENT MODE, BG 2LNC (ROOM AIR)
[2025-02-18 04:28] LABS: IMMATURE GRANULOCYTE ABSOLUTE 0.24 K/uL (0-1); NUCLEATED RED BLOOD CELLS 0.4 % (0.0-0.19); PLATELET COUNT (AUTO) 149 K/uL (130-400); RED BLOOD CELL COUNT(AUTO) 2.80 MIL/uL (4.50-6.20); RED CELL DISTRIBUTION WIDTH 14.0 % (11.0-15.5); WHITE BLOOD COUNT (AUTO) 15.7 K/uL (4.8-10.8)
[2025-02-18 04:41] LABS: CREATININE 1.0 mg/dL (0.5-1.3); GLOMERULAR FILTR. RATE CALC 78.0 mL/min (>90); GLUCOSE,RANDOM 165.0 mg/dL (70-105); SODIUM SERUM 136.0 mmol/L (136-145); UREA NITROGEN, BLOOD 25.0 mg/dL (7-18)
--- NOTE | 2025-02-18 10:19 | PN ---
[facility] PROGRESS NOTE Date Patient Seen: Feb 18, 2025 Time of Visit: 10:16 Supervising Physician: Dr Antonio Zhong Primary Care Physician: [ ] Outpatient Specialists: [ ] Inpatient Consults: [ ] PROBLEM LIST: CAD, status post CABG x3 Impella and a intra-aortic balloon pump support Type 2 diabetes Congested heart failure EF 20% INTERVAL HISTORY: Patient was seen and examined, patient is actually sitting at the bedside chair, he is having breakfast, reports his pain controlled Patient is awake alert and oriented. He continues with the Impella now at P3 Neurovascularly intact upper and lowers Good pulses Nasal cannula at 2 L. Good urine output No family members at bedside. Plan: Follow CT surgeon recs/protocol I&Os Weaning pressors Follow chest x-rays PT/OT when able Encourage IS, patient's chest x-ray continues with atelectasis prominent on the right Total critical care time spent 44 minutes, time excludes any procedures or educational time REVIEW OF SYSTEMS: 12 point ROS reviewed with patient. Pertinent positives mentioned above. Otherwise negative. PHYSICAL EXAM: GENERAL: Patient comfortable in bed, HEENT: EOMI, Sclera non icteric, moist mucosa NECK: Supple, no JVD, trachea midline LUNGS: Clear breath sounds bilaterally. No wheezes HEART: Regular rate and rhythm. Normal S1 and S2, without murmurs ABD: Abdomen soft, nontender. Bowel sounds present EXT: No clubbing cyanosis or edema NEURO: Awake alert and oriented Vital Signs (last 8hr) Date Time Temp Pulse Resp B/P (MAP) Pulse Ox O2 Delivery O2 Flow Rate FiO2 02/18/25 10:00 99 19 120/55 (76) 93 102/59 (73) 02/18/25 09:30 99 15 113/55 (74) 94 02/18/25 09:15 98 19 120/52 (74) 94 02/18/25 09:00 99 18 112/52 (72) 93 101/64 (76) 02/18/25 08:45 99 20 119/54 (75) 93 02/18/25 08:30 98 20 116/52 (73) 93 02/18/25 08:15 97 17 102/55 (71) 92 02/18/25 08:00 98.8 94 13 101/51 (68) 94 91/64 (73) 02/18/25 08:00 98.8 02/18/25 07:52 97 18 N/A Room Air 21 02/18/25 07:45 96 10 103/48 (66) 94 02/18/25 07:30 96 Room Air* 0 21 02/18/25 07:30 97 21 92/52 (65) 94 02/18/25 07:15 97 16 114/47 (69) 95 02/18/25 07:00 94 19 115/50 (71) 93 106/58 (74) 02/18/25 06:45 96 14 108/49 (68) 93 02/18/25 06:30 94 19 95/61 (72) 95 02/18/25 06:15 99 20 123/53 (76) 94 02/18/25 06:00 100 18 118/52 (74) 93 21 111/64 (80) 02/18/25 05:45 101 16 109/57 (74) 02/18/25 05:30 96 20 87/75 (79) 96 02/18/25 05:15 97 20 123/52 (75) 97 02/18/25 05:00 95 20 105/51 (69) 97 24 105/62 (76) 02/18/25 04:45 96 20 100/50 (67) 98 02/18/25 04:30 96 20 110/53 (72) 98 02/18/25 04:24 98.8 02/18/25 04:15 94 20 108/52 (70) 95 28 02/18/25 04:01 96 Nasal Cannula* 2 28 02/18/25 04:00 77 19 115/56 (75) 96 110/67 (81) 02/18/25 03:45 96 24 98/49 (65) 97 02/18/25 03:30 96 36 112/56 (74) 95 02/18/25 03:15 90 24 103/51 (68) 97 02/18/25 03:00 85 19 111/54 (73) 97 28 107/67 (80) 02/18/25 02:45 96 28 112/56 (74) 96 02/18/25 02:30 84 18 108/53 (71) 97 LABS: Hematology Labs: Test 02/18/25 04:11 Range/Units White Blood Count 15.7 H 4.8-10.8 K/uL Red Blood Count 2.80 L 4.50-6.20 MIL/uL Hemoglobin 8.3 L 14.0-18.0 g/dL Hematocrit 25.0 L 42-54 % Mean Corpuscular Volume 89.3 79-99 fL Mean Corpuscular Hemoglobin 29.6 27.0-33.0 pg Mean Corpuscular Hemoglobin Concent 33.2 32.0-36.0 g/dL Red Cell Distribution Width 14.0 11.0-15.5 % Platelet Count 149 130-400 K/uL Mean Platelet Volume 11.4 H 7.5-10.5 fL Immature Granulocyte % (Auto) 1.5 H 0-1 % Neutrophils (%) (Auto) 74.2 40.0-77.0 % Lymphocytes (%) (Auto) 12.6 L 21.0-51.0 % Monocytes (%) (Auto) 11.0 3.0-13.0 % Eosinophils (%) (Auto) 0.4 0.0-8.0 % Basophils (%) (Auto) 0.3 0.0-5.0 % Neutrophils # (Auto) 11.6 H 1.8-7.7 K/uL Lymphocytes # (Auto) 2.0 1.0-4.8 K/uL Monocytes # (Auto) 1.7 H 0.1-1.0 K/uL Eosinophils # (Auto) 0.06 0.00-0.70 K/uL Basophils # (Auto) 0.04 0.00-0.20 K/uL Absolute Immature Granulocyte (auto 0.24 0-1 K/uL Nucleated Red Blood Cells 0.4 H 0.0-0.19 % Chemistry Labs: Test 02/18/25 04:11 02/17/25 20:04 02/17/25 04:29 Range/Units Sodium Level 136 136-145 mmol/L Potassium Level 3.6 3.5-5.1 mmol/L Chloride Level 94 L 101-111 mmol/L Carbon Dioxide Level 24 21-32 mmol/L Blood Urea Nitrogen 25 H 7-18 mg/dL Creatinine 1.0 0.5-1.3 mg/dL Glomerular Filtration Rate Calc 78 >90 mL/min Random Glucose 165 H 70-105 mg/dL Total Calcium 8.5 8.5-10.1 mg/dL Magnesium Level 1.80 1.80-2.40 mg/dL Whole Blood Glucose 165 H 70-110 MG/DL Total Bilirubin 1.4 H 0.2-1.0 mg/dL Aspartate Amino Transf (AST/SGOT) 44 H 10-37 U/L Alanine Aminotransferase (ALT/SGPT) 22 12-78 U/L Alkaline Phosphatase 59 50-136 U/L Total Protein 5.6 L 6.0-8.3 g/dL Albumin 2.3 L 3.5-5.0 g/dL DIAGNOSTICS / RADIOLOGY RESULTS: [ ] PLAN NEURO: Minimize central acting medications as possible. Fall Precautions. Well lighted room through the day and minimize interruptions through the night to prevent acute delirium. PULMONARY: Supplemental 02 as needed Titrate Fio2 to keep Spo2 > or = 90% DuoNebs and CPT as needed IS hourly while awake for pulmonary hygiene Out of bed to chair as tolerated VAP Bundle Vent/BIPAP Settings: [ ] Driving pressure: [ ] P Plat: [ ] Static C: [ ] Static R: [ ] P/F Ratio: [ ] CARDIOVASCULAR: Follow hemodynamics. Titrate vasopressor to keep MAP >65 or systolic blood pressure >95mmHg DIPS: [ ] LINES: [ ] GI & NUTRITION: Continue nutritional support Aspirations precautions Prokinetic agents and laxatives as needed KIDNEYS & ELECTROLYTES: Strict monitoring of intake and output Daily weights Avoid nephrotoxic agents Monitor electrolytes and replace as needed Goal urine output of 30mL/hr or 0.5mL/kg/hr Urine output: [ ] Fluid Balance: [ ] ENDOCRINE: Maintain blood glucose between 100-180 at all times. Insulin sliding scale for blood glucose management INFECTIOUS DISEASE: Trend temperature. Caldwell-culture if febrile. Micro: [ ] Antibiotics: [ ] HEMATOLOGY & COAGULATION: Monitor H&H. Keep Hgb > 7 Transfuse 1 unit of PRBC for Hgb < 7 Transfuse 1 pack of platelets of platelets < 20, 000 Watch for any signs and symptoms of bleeding SKIN: Pressure ulcer prevention per facility protocol Rehab: PT/OT Prophylaxis: GI: [ ] DVT: [ ] Code Status: Full Resuscitation Disposition: [ ] Case was discussed and seen with my supervising physician. The above plan was formulated and agreed upon. MAGGIE JARRELL PAC Feb 18, 2025 10:19
[2025-02-18] MEDS: ALBUMIN (HUMAN) 5% 250 ML IV SCH (10:27)
[2025-02-18] MEDS ORDERED: ALBUMIN (HUMAN) 5% 250 ML IV SCH (10:30)
--- NOTE | 2025-02-18 10:47 | PN ---
INFECTIOUS DISEASE PROGRESS NOTE Date of Service: Feb 18, 2025 SUBJECTIVE: This 74-year-old male patient who is is status post CABG and Impella still in place . The WBC has improved to 15.7 today and remains afebrile, temperature is 98.8.. No growth reported on the sputum cultures yet. Continues on cefepime and we will continue vancomycin per pharmacy protocol. PHYSICAL EXAM EYES: Anicteric. Pupils equal and reactive. HENT: No oral thrush seen, moist Oral mucosa. NECK: Supple, no JVD or thyromegaly. LUNGS: Good air entry. diminished breath sounds. CHEST: Chest tube. Sternal incision. CARDIOVASCULAR: S1, S2 regular. No murmur heard. ABDOMEN: Soft, non tender, bowel sounds present. CENTRAL NERVOUS SYSTEM: Awake, alert, oriented. SKIN: No rashes, no swelling. Vein harvesting surgical incisions to bilateral lower extremities.. LYMPHATICS: No peripheral lymphadenopathy. MUSCULOSKELETAL: No joint swelling, erythema or tenderness. EXTREMITIES: No cyanosis or clubbing. 1+ edema to bilateral feet. BACK: No deformity, no pressure ulcer. GENITOURINARY: No dysuria or hematuria. De Jesus catheter. Vital Sign (Last 12 Hours) 02/17/25 02/17/25 02/17/25 02/17/25 22:45 23:00 23:15 23:30 Pulse 95 94 95 95 Resp 20 22 24 30 B/P (MAP) 96/50 (65) 107/54 (71) 111/55 (73) 98/49 (65) 115/68 (84) Pulse Ox 97 97 98 98 FiO2 28 02/17/25 02/18/25 02/18/25 02/18/25 23:45 00:00 00:03 00:05 Temp 98.6 Pulse 84 94 Resp 20 26 B/P (MAP) 105/52 (69) 100/50 (67) 102/60 (74) Pulse Ox 98 98 98 O2 Delivery Nasal Cannula* O2 Flow Rate 3 FiO2 28 32 02/18/25 02/18/25 02/18/25 02/18/25 00:15 00:30 00:45 01:00 Pulse 89 84 84 79 Resp 28 22 37 25 B/P (MAP) 102/50 (67) 97/49 (65) 106/53 (70) 109/54 (72) 115/68 (84) Pulse Ox 97 97 97 97 FiO2 28 02/18/25 02/18/25 02/18/25 02/18/25 01:15 01:30 01:45 02:00 Pulse 94 83 94 94 Resp 21 20 20 17 B/P (MAP) 108/54 (72) 113/56 (75) 112/57 (75) 101/52 (68) 109/62 (78) Pulse Ox 97 98 95 98 FiO2 28 02/18/25 02/18/25 02/18/25 02/18/25 02:15 02:30 02:45 03:00 Pulse 94 84 96 85 Resp 16 18 28 19 B/P (MAP) 112/55 (74) 108/53 (71) 112/56 (74) 111/54 (73) 107/67 (80) Pulse Ox 97 97 96 97 FiO2 28 02/18/25 02/18/25 02/18/25 02/18/25 03:15 03:30 03:45 04:00 Pulse 90 96 96 77 Resp 24 36 24 19 B/P (MAP) 103/51 (68) 112/56 (74) 98/49 (65) 115/56 (75) 110/67 (81) Pulse Ox 97 95 97 96 02/18/25 02/18/25 02/18/25 02/18/25 04:01 04:15 04:24 04:30 Temp 98.8 Pulse 94 96 Resp 20 20 B/P (MAP) 108/52 (70) 110/53 (72) Pulse Ox 96 95 98 O2 Delivery Nasal Cannula* O2 Flow Rate 2 FiO2 28 02/18/25 02/18/25 02/18/25 02/18/25 04:45 05:00 05:15 05:30 Pulse 96 95 97 96 Resp 20 20 20 20 B/P (MAP) 100/50 (67) 105/51 (69) 123/52 (75) 87/75 (79) 105/62 (76) Pulse Ox 98 97 97 96 FiO2 24 02/18/25 02/18/25 02/18/25 02/18/25 05:45 06:00 06:15 06:30 Pulse 101 100 99 94 Resp 16 18 20 19 B/P (MAP) 109/57 (74) 118/52 (74) 123/53 (76) 95/61 (72) 111/64 (80) Pulse Ox 93 94 95 FiO2 21 02/18/25 02/18/25 02/18/25 02/18/25 06:45 07:00 07:15 07:30 Pulse 96 94 97 97 Resp 14 19 16 21 B/P (MAP) 108/49 (68) 115/50 (71) 114/47 (69) 92/52 (65) 106/58 (74) Pulse Ox 93 93 95 94 02/18/25 02/18/25 02/18/25 02/18/25 07:30 07:45 07:52 08:00 Temp 98.8 Pulse 96 97 Resp 10 18 B/P (MAP) 103/48 (66) Pulse Ox 96 94 O2 Delivery Room Air* N/A Room Air O2 Flow Rate 0 FiO2 21 21 02/18/25 02/18/25 02/18/25 02/18/25 08:00 08:15 08:30 08:45 Temp 98.8 Pulse 94 97 98 99 Resp 13 17 20 20 B/P (MAP) 101/51 (68) 102/55 (71) 116/52 (73) 119/54 (75) 91/64 (73) Pulse Ox 94 92 93 93 02/18/25 02/18/25 02/18/25 02/18/25 09:00 09:15 09:30 10:00 Pulse 99 98 99 99 Resp 18 19 15 19 B/P (MAP) 112/52 (72) 120/52 (74) 113/55 (74) 120/55 (76) 101/64 (76) 102/59 (73) Pulse Ox 93 94 94 93 Intake & Output (last 24hrs) 02/17/25 02/17/25 02/18/25 15:00 23:00 07:00 Intake Total 492.6 ml 677.6 ml 964.4 ml Output Total 2390 ml 1020 ml 1080 ml Balance -1897.4 ml -342.4 ml -115.6 ml LABS: Laboratory: Test 02/18/25 04:11 02/17/25 20:04 02/17/25 04:29 02/17/25 03:12 Range/Units White Blood Count 15.7 H 4.8-10.8 K/uL Red Blood Count 2.80 L 4.50-6.20 MIL/uL Hemoglobin 8.3 L 14.0-18.0 g/dL Hematocrit 25.0 L 42-54 % Mean Corpuscular Volume 89.3 79-99 fL Mean Corpuscular Hemoglobin 29.6 27.0-33.0 pg Mean Corpuscular Hemoglobin Concent 33.2 32.0-36.0 g/dL Red Cell Distribution Width 14.0 11.0-15.5 % Platelet Count 149 130-400 K/uL Mean Platelet Volume 11.4 H 7.5-10.5 fL Immature Granulocyte % (Auto) 1.5 H 0-1 % Neutrophils (%) (Auto) 74.2 40.0-77.0 % Lymphocytes (%) (Auto) 12.6 L 21.0-51.0 % Monocytes (%) (Auto) 11.0 3.0-13.0 % Eosinophils (%) (Auto) 0.4 0.0-8.0 % Basophils (%) (Auto) 0.3 0.0-5.0 % Neutrophils # (Auto) 11.6 H 1.8-7.7 K/uL Lymphocytes # (Auto) 2.0 1.0-4.8 K/uL Monocytes # (Auto) 1.7 H 0.1-1.0 K/uL Eosinophils # (Auto) 0.06 0.00-0.70 K/uL Basophils # (Auto) 0.04 0.00-0.20 K/uL Absolute Immature Granulocyte (auto 0.24 0-1 K/uL Nucleated Red Blood Cells 0.4 H 0.0-0.19 % Blood Gas Specimen Type Arterial Arterial Blood pH 7.479 H 7.350-7.450 Arterial Blood Partial Pressure CO2 32 L 35-48 mmHg Arterial Blood Partial Pressure O2 93.1 83.0-108.0 mmHg Arterial Blood HCO3 23.2 21.0-28.0 mmol/L Arterial Blood Base Excess 0.6 -2.0-3.0 mmol/L Sodium (Blood Gas) 134 L 136-145 MMOL/L Bedside Potassium (Blood Gas) 3.6 3.4-4.5 MMOL/L Bedside Chloride (Blood Gas) 96 L 98-107 MMOL/L Bedside Glucose (Blood Gas) 170 H 65-95 MG/DL Bedside Ionized Calcium (Blood Gas) 1.14 L 1.15-1.33 MMOL/L Bedside Lactic Acid (Blood Gas) 1.20 H 0.36-0.75 MMOL/L Blood Gas Temperature 37.0 35.5-37.0 CELSIUS Blood Gas Flow-by 2.00 0.00-15.00 L/min Blood Gas Vent Mode 2LNC ROOM AIR FiO2 28.0 % Blood Gas Specimen Comment JIAN RN, [place] Sodium Level 136 136-145 mmol/L Potassium Level 3.6 3.5-5.1 mmol/L Chloride Level 94 L 101-111 mmol/L Carbon Dioxide Level 24 21-32 mmol/L Blood Urea Nitrogen 25 H 7-18 mg/dL Creatinine 1.0 0.5-1.3 mg/dL Glomerular Filtration Rate Calc 78 >90 mL/min Random Glucose 165 H 70-105 mg/dL Total Calcium 8.5 8.5-10.1 mg/dL Magnesium Level 1.80 1.80-2.40 mg/dL Whole Blood Glucose 165 H 70-110 MG/DL Total Bilirubin 1.4 H 0.2-1.0 mg/dL Aspartate Amino Transf (AST/SGOT) 44 H 10-37 U/L Alanine Aminotransferase (ALT/SGPT) 22 12-78 U/L Alkaline Phosphatase 59 50-136 U/L Total Protein 5.6 L 6.0-8.3 g/dL Albumin 2.3 L 3.5-5.0 g/dL Blood Gas Respiration Rate 5.0 min. ASSESSMENT: Possible hospital-acquired pneumonia. Leukocytosis. 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 Postop anemia. Left Pleural effusion. Diabetes mellitus. Congenital heart failure EF of 20% PLAN: Continue cefepime. Continue vancomycin per pharmacy protocol. Continue GI prophylaxis. We will follow up on the sputum cultures results. Continue on Lasix drip. Continue oxygen support. Monitor electrolytes. This case was reviewed and discussed with my supervising physician Dr. Mckeon and the above assessment and plan was formulated and agreed upon. ATTESTATION BY PHYSICIAN I have seen and examined the patient. I reviewed the documentation, medical decision making, and treatment plan as noted by the mid-level provider above. I agree with the findings and plan of care. BERENICE MCKEON MD, [facility] Feb 18, 2025 10:47
[2025-02-18] MEDS ORDERED: VANCOMYCIN PROTOCOL PER PHARMACY IV SCH (11:00)
--- NOTE | 2025-02-18 11:37 | PN ---
PROGRESS NOTE PROBLEM LIST: 1. Non ST-elevation myocardial infarction 2. Remote myocardial infarction status post stenting of the mid LAD and distal LAD February 2016 3. 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 Diabetes mellitus type 2 6. Dyslipidemia 7. Hypertension 8. 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 Shinto 10. History of beta estela intolerance due to erectile dysfunction 11. Status post coronary artery bypass grafting x3 with a oliver-lad, SVG-OMB, SVG-PDA on 02/14/2025 with 5.5 Impella device placed INTERIM HISTORY OF PRESENT ILLNESS: Patient is sitting comfortably in chair. He did just undergo physical therapy. He is answering questions appropriately. Family members are at bedside. REVIEW OF SYSTEMS: No fever, headache, chest pain, abdominal pain, nausea, vomiting, or diarrhea. VITAL SIGNS Vital Signs Date Time Temp Pulse Resp B/P (MAP) Pulse Ox O2 Delivery O2 Flow Rate FiO2 02/18/25 10:00 99 19 120/55 (76) 93 102/59 (73) 02/18/25 08:00 98.8 02/18/25 07:52 N/A Room Air 02/18/25 07:30 0 Laboratory Tests 02/18/25 04:11 LABS/MEDS Laboratory Tests Test 02/17/25 15:58 02/17/25 16:27 02/17/25 20:04 02/17/25 20:05 Whole Blood Glucose 159 MG/DL (70-110) H 165 MG/DL (70-110) H Blood Gas Specimen Type Arterial Arterial Blood pH 7.476 (7.350-7.450) Arterial Blood Partial Pressure CO2 31 mmHg (35-48) L Arterial Blood Partial Pressure O2 80.5 mmHg (83.0-108.0) L Arterial Blood HCO3 22.6 mmol/L (21.0-28.0) Arterial Blood Oxygen Saturation 95.2 % (94.0-98.0) Arterial Blood Base Excess -0.5 mmol/L (-2.0-3.0) Hemoglobin (Blood Gas) 9.8 g/dL (13.5-17.5) L Sodium (Blood Gas) 137 MMOL/L (136-145) Bedside Potassium (Blood Gas) 3.9 MMOL/L (3.4-4.5) Bedside Chloride (Blood Gas) 98 MMOL/L (98-107) Bedside Glucose (Blood Gas) 178 MG/DL (65-95) H Bedside Ionized Calcium (Blood Gas) 1.12 MMOL/L (1.15-1.33) L Bedside Lactic Acid (Blood Gas) 1.58 MMOL/L (0.36-0.75) H Blood Gas Temperature 37.0 CELSIUS (35.5-37.0) Blood Gas Flow-by 4.00 L/min (0.00-15.00) Blood Gas Vent Mode YAQUELIN ARTEAGA RN (ROOM AIR) FiO2 36.0 % Blood Gas Specimen Comment HIWOT Magnesium Level 1.70 mg/dL (1.80-2.40) L Test 02/17/25 20:07 02/18/25 00:12 02/18/25 00:23 02/18/25 04:11 Blood Gas Specimen Type Arterial Arterial Arterial Arterial Blood pH 7.489 (7.350-7.450) 7.507 (7.350-7.450) 7.479 (7.350-7.450) Arterial Blood Partial Pressure CO2 30 mmHg (35-48) L 31 mmHg (35-48) L 32 mmHg (35-48) L Arterial Blood Partial Pressure O2 107.1 mmHg (83.0-108.0) 94.6 mmHg (83.0-108.0) 93.1 mmHg (83.0-108.0) Arterial Blood HCO3 22.1 mmol/L (21.0-28.0) 24.2 mmol/L (21.0-28.0) 23.2 mmol/L (21.0-28.0) Arterial Blood Oxygen Saturation 97.6 % (94.0-98.0) 97.0 % (94.0-98.0) Pending Arterial Blood Base Excess -0.5 mmol/L (-2.0-3.0) 1.4 mmol/L (-2.0-3.0) 0.6 mmol/L (-2.0-3.0) Hemoglobin (Blood Gas) 10.8 g/dL (13.5-17.5) L 9.2 g/dL (13.5-17.5) L Pending Sodium (Blood Gas) 135 MMOL/L (136-145) L 135 MMOL/L (136-145) L 134 MMOL/L (136-145) L Bedside Potassium (Blood Gas) 3.8 MMOL/L (3.4-4.5) 3.7 MMOL/L (3.4-4.5) 3.6 MMOL/L (3.4-4.5) Bedside Chloride (Blood Gas) 96 MMOL/L (98-107) L 96 MMOL/L (98-107) L 96 MMOL/L (98-107) L Bedside Glucose (Blood Gas) 168 MG/DL (65-95) H 175 MG/DL (65-95) H 170 MG/DL (65-95) H Bedside Ionized Calcium (Blood Gas) 1.12 MMOL/L (1.15-1.33) L 1.11 MMOL/L (1.15-1.33) L 1.14 MMOL/L (1.15-1.33) L Bedside Lactic Acid (Blood Gas) 1.49 MMOL/L (0.36-0.75) H 1.56 MMOL/L (0.36-0.75) H 1.20 MMOL/L (0.36-0.75) H Blood Gas Temperature 37.0 CELSIUS (35.5-37.0) 37.0 CELSIUS (35.5-37.0) 37.0 CELSIUS (35.5-37.0) Blood Gas Flow-by 4.00 L/min (0.00-15.00) 4.00 L/min (0.00-15.00) 2.00 L/min (0.00-15.00) Blood Gas Vent Mode 4LNC (ROOM AIR) 4LNC (ROOM AIR) 2LNC (ROOM AIR) FiO2 36.0 % 36.0 % 28.0 % Blood Gas Specimen Comment JIAN RN, AL JIAN RN, AL JIAN RN, AL Magnesium Level 2.10 mg/dL (1.80-2.40) 1.80 mg/dL (1.80-2.40) White Blood Count 15.7 K/uL (4.8-10.8) H Red Blood Count 2.80 MIL/uL (4.50-6.20) L Hemoglobin 8.3 g/dL (14.0-18.0) L Hematocrit 25.0 % (42-54) L Mean Corpuscular Volume 89.3 fL (79-99) Mean Corpuscular Hemoglobin 29.6 pg (27.0-33.0) Mean Corpuscular Hemoglobin Concent 33.2 g/dL (32.0-36.0) Red Cell Distribution Width 14.0 % (11.0-15.5) Platelet Count 149 K/uL (130-400) Mean Platelet Volume 11.4 fL (7.5-10.5) H Immature Granulocyte % (Auto) 1.5 % (0-1) H Neutrophils (%) (Auto) 74.2 % (40.0-77.0) Lymphocytes (%) (Auto) 12.6 % (21.0-51.0) L Monocytes (%) (Auto) 11.0 % (3.0-13.0) Eosinophils (%) (Auto) 0.4 % (0.0-8.0) Basophils (%) (Auto) 0.3 % (0.0-5.0) Neutrophils # (Auto) 11.6 K/uL (1.8-7.7) H Lymphocytes # (Auto) 2.0 K/uL (1.0-4.8) Monocytes # (Auto) 1.7 K/uL (0.1-1.0) H Eosinophils # (Auto) 0.06 K/uL (0.00-0.70) Basophils # (Auto) 0.04 K/uL (0.00-0.20) Absolute Immature Granulocyte (auto 0.24 K/uL (0-1) Nucleated Red Blood Cells 0.4 % (0.0-0.19) H Sodium Level 136 mmol/L (136-145) Potassium Level 3.6 mmol/L (3.5-5.1) Chloride Level 94 mmol/L (101-111) L Carbon Dioxide Level 24 mmol/L (21-32) Blood Urea Nitrogen 25 mg/dL (7-18) H Creatinine 1.0 mg/dL (0.5-1.3) Glomerular Filtration Rate Calc 78 mL/min (>90) Random Glucose 165 mg/dL (70-105) H Total Calcium 8.5 mg/dL (8.5-10.1) Current Medications Sodium Chloride 1,000 ml @ 0 mls/hr ONCE ONCE IV; Start 02/10/25 at 01:00; Stop 02/10/25 at 00:46; Status DC Sodium Chloride 500 ml @ 0 mls/hr ONCE ONCE IV Last administered on 02/10/25at 00:53; Start 02/10/25 at 01:00; Stop 02/10/25 at 01:01; Status DC Insulin Human Regular 5 unit ONCE ONCE IV Last administered on 02/10/25at 01:30; Start 02/10/25 at 01:30; Stop 02/10/25 at 01:31; Status DC Aspirin 325 mg ONCE ONCE PO Last administered on 02/10/25at 02:32; Start 02/10/25 at 02:30; Stop 02/10/25 at 02:31; Status DC Heparin Sodium/ Dextrose 250 ml @ 0 mls/hr PROTOCOL IV Last administered on 02/10/25at 03:00; Start 02/10/25 at 03:00; Stop 02/10/25 at 17:22; Status DC Heparin Sodium (Porcine) 7,000 unit ONCE ONCE SQ Last administered on 02/10/25at 02:55; Start 02/10/25 at 03:00; Stop 02/10/25 at 03:01; Status DC Acetaminophen 650 mg Q6H PRN PO Last administered on 02/12/25at 17:13; Start 02/10/25 at 05:00; Stop 02/14/25 at 10:17; Status DC Acetaminophen 650 mg Q4H PRN PO; Start 02/10/25 at 05:00; Stop 02/14/25 at 10:05; Status DC Ondansetron HCl 4 mg Q6H PRN IV; Start 02/10/25 at 05:00; Stop 02/14/25 at 10:17; Status DC Nitroglycerin 0.4 mg PROTOCOL PRN SL; Start 02/10/25 at 05:00; Stop 02/14/25 at 09:59; Status DC Famotidine 20 mg DAILY PO Last administered on 02/13/25at 10:53; Start 02/10/25 at 09:00; Stop 02/14/25 at 09:59; Status DC Sodium Chloride 1,000 ml @ 100 mls/hr Q10H IV Last administered on 02/10/25at 14:20; Start 02/10/25 at 05:00; Stop 02/10/25 at 17:22; Status DC Insulin Human Regular INSULIN SLIDING SCAL... Q4H SQ Last administered on 02/10/25at 09:15; Start 02/10/25 at 05:00; Stop 02/10/25 at 11:10; Status DC Dextrose 50 ml AD PRN IV; Start 02/10/25 at 05:00; Stop 02/14/25 at 10:17; Status DC Glucagon 1 mg AD PRN IM; Start 02/10/25 at 05:00; Stop 02/14/25 at 10:17; Status DC Magnesium Sulfate 50 ml @ 0 mls/hr PROTOCOL PRN IV Last administered on 02/12/25at 07:13; Start 02/10/25 at 05:00; Stop 02/14/25 at 10:17; Status DC Potassium Chloride 100 ml @ 100 mls/hr AD PRN IV Last administered on 02/15/25at 05:43; Start 02/10/25 at 05:00; Stop 02/15/25 at 06:27; Status DC Potassium Chloride 20 meq AD PRN PO Last administered on 02/17/25at 05:52; Start 02/10/25 at 05:00; Stop 03/12/25 at 04:59 Potassium Chloride 20 meq AD PRN PO Last administered on 02/13/25at 05:45; Start 02/10/25 at 05:00; Stop 03/12/25 at 04:59 Aspirin 81 mg DAILY PO Last administered on 02/18/25at 08:14; Start 02/10/25 at 09:00; Stop 03/12/25 at 08:59 Insulin Human Regular INSULIN SLIDING SCAL... Q6H6 SQ Last administered on 02/11/25at 17:29; Start 02/10/25 at 12:00; Stop 02/14/25 at 09:59; Status DC Clopidogrel Bisulfate 600 mg ONCE PO Last administered on 02/10/25at 14:19; Start 02/10/25 at 14:00; Stop 02/10/25 at 17:22; Status DC Aspirin 325 mg ONCE PO Last administered on 02/10/25at 14:32; Start 02/10/25 at 14:30; Stop 02/10/25 at 17:22; Status DC Sacubitril/ Valsartan 0.5 each BID PO Last administered on 02/13/25at 21:11; Start 02/10/25 at 21:00; Stop 02/14/25 at 09:59; Status DC Empaglifozin 10 mg DAILY PO Last administered on 02/13/25at 10:52; Start 02/10/25 at 14:30; Stop 02/14/25 at 09:59; Status DC Spironolactone 25 mg DAILY PO Last administered on 02/13/25at 10:52; Start 02/10/25 at 14:30; Stop 02/14/25 at 09:59; Status DC Furosemide 20 mg ONCE IV Last administered on 02/10/25at 17:00; Start 02/10/25 at 17:00; Stop 02/10/25 at 21:00; Status DC Furosemide 20 mg ONCE IV; Start 02/11/25 at 09:00; Stop 02/11/25 at 07:43; Status DC Lidocaine HCl 20 ml STK-MED ONCE .ROUTE; Start 02/10/25 at 15:22; Stop 02/10/25 at 15:23; Status DC Iohexol 35,000 mg STK-MED ONCE IV; Start 02/10/25 at 15:22; Stop 02/10/25 at 15:23; Status DC Iohexol 50 ml STK-MED ONCE IV; Start 02/10/25 at 15:22; Stop 02/10/25 at 15:23; Status DC Heparin Sodium (Porcine) 10,000 unit STK-MED ONCE .ROUTE; Start 02/10/25 at 15:23; Stop 02/10/25 at 15:23; Status DC Heparin Sodium/ Sodium Chloride 1,000 ml @ As Directed STK-MED ONCE IV; Start 02/10/25 at 15:23; Stop 02/10/25 at 15:23; Status DC Nitroglycerin 50 mg STK-MED ONCE .ROUTE; Start 02/10/25 at 15:23; Stop 02/10/25 at 15:23; Status DC Heparin Sodium/ Sodium Chloride 500 ml @ As Directed STK-MED ONCE IV; Start 02/10/25 at 15:35; Stop 02/10/25 at 15:35; Status DC Fentanyl Citrate 100 mcg STK-MED ONCE .ROUTE; Start 02/10/25 at 15:39; Stop 02/10/25 at 15:40; Status DC Midazolam HCl 2 mg STK-MED ONCE .ROUTE; Start 02/10/25 at 15:40; Stop 02/10/25 at 15:40; Status DC Bivalirudin 250 mg STK-MED ONCE IV; Start 02/10/25 at 16:15; Stop 02/10/25 at 16:15; Status DC Heparin Sodium (Porcine) 7,000 unit ONCE ONCE IV Last administered on 02/11/25at 05:46; Start 02/11/25 at 05:30; Stop 02/11/25 at 05:31; Status DC Heparin Sodium/ Dextrose 250 ml @ 0 mls/hr Q6H IV Last administered on 02/13/25at 13:01; Start 02/11/25 at 06:30; Stop 02/14/25 at 09:59; Status DC Clopidogrel Bisulfate 75 mg DAILY PO; Start 02/11/25 at 09:00; Stop 02/11/25 at 07:28; Status DC Insulin Glargine 15 units DAILY08 SQ Last administered on 02/12/25at 08:54; Start 02/11/25 at 08:00; Stop 02/13/25 at 05:24; Status DC Furosemide 20 mg DAILY PO Last administered on 02/13/25at 10:52; Start 02/11/25 at 09:00; Stop 02/14/25 at 09:59; Status DC Insulin Human Regular 3 unit TIDAC SQ Last administered on 02/12/25at 16:31; Start 02/12/25 at 07:30; Stop 02/14/25 at 09:59; Status DC Metoprolol Tartrate 12.5 mg BID PO Last administered on 02/14/25at 06:44; Start 02/12/25 at 09:00; Stop 02/14/25 at 09:59; Status DC Potassium Chloride 40 meq BID ONCE PO; Start 02/12/25 at 21:00; Stop 02/12/25 at 21:01; Status DC Magnesium Chloride 64 mg Q8H6 ONCE PO; Start 02/12/25 at 14:00; Stop 02/12/25 at 14:01; Status DC Heparin Sodium (Porcine) *calculation based on ACTUAL B... AD PRN IV Last administered on 02/12/25at 20:16; Start 02/12/25 at 21:00; Stop 02/14/25 at 09:59; Status DC Insulin Glargine 12 units DAILY08 SQ Last administered on 02/13/25at 10:51; Start 02/13/25 at 08:00; Stop 02/14/25 at 09:59; Status DC Cefazolin Sodium 2 gm ONCALL IVP Last administered on 02/14/25at 08:50; Start 02/13/25 at 20:00; Stop 02/14/25 at 18:51; Status DC Epinephrine HCl 10 mg/Sodium Chloride 250 ml @ 0 mls/hr AD PRN IV Last administered on 02/16/25at 00:51; Start 02/14/25 at 06:30; Stop 03/16/25 at 06:29 Norepinephrine Bitartrate 250 ml @ 0 mls/hr AD PRN IV Last administered on 02/17/25at 01:06; Start 02/14/25 at 06:30; Stop 03/16/25 at 06:29 Aminocaproic Acid 71391 mg/Sodium Chloride 480 ml @ 0 mls/hr AD PRN IV; Start 02/14/25 at 06:30; Stop 03/16/25 at 06:29 Epinephrine HCl 10 mg/Sodium Chloride 250 ml @ 0 mls/hr AD PRN IV; Start 02/14/25 at 07:00; Stop 02/14/25 at 06:51; Status DC Norepinephrine Bitartrate 250 ml @ 0 mls/hr AD PRN IV; Start 02/14/25 at 07:00; Stop 02/14/25 at 06:51; Status DC Aminocaproic Acid 79649 mg/Sodium Chloride 480 ml @ 0 mls/hr AD PRN IV; Start 02/14/25 at 07:00; Stop 02/14/25 at 06:51; Status DC Cefazolin Sodium 2 gm STK-MED ONCE .ROUTE; Start 02/14/25 at 06:53; Stop 02/14/25 at 06:53; Status DC Nitroglycerin/ Dextrose 1 ml @ As Directed STK-MED ONCE .ROUTE; Start 02/14/25 at 07:00; Stop 02/14/25 at 07:00; Status DC Cefazolin Sodium 1 gm STK-MED ONCE .ROUTE Last administered on 02/14/25at 10:09; Start 02/14/25 at 07:37; Stop 02/14/25 at 07:38; Status DC Heparin Sodium/ Sodium Chloride 500 ml @ As Directed STK-MED ONCE IV; Start 02/14/25 at 07:38; Stop 02/14/25 at 07:38; Status DC Papaverine HCl 60 mg STK-MED ONCE .ROUTE Last administered on 02/14/25at 10:10; Start 02/14/25 at 07:38; Stop 02/14/25 at 07:38; Status DC Midazolam HCl 2 mg STK-MED ONCE .ROUTE; Start 02/14/25 at 08:14; Stop 02/14/25 at 08:14; Status DC Ketamine HCl 500 mg STK-MED ONCE IJ; Start 02/14/25 at 08:16; Stop 02/14/25 at 08:16; Status DC Protamine Sulfate 250 mg STK-MED ONCE IV; Start 02/14/25 at 08:17; Stop 02/14/25 at 08:17; Status DC Lidocaine HCl 100 mg STK-MED ONCE .ROUTE; Start 02/14/25 at 08:17; Stop 02/14/25 at 08:17; Status DC Heparin Sodium (Porcine) 10,000 unit STK-MED ONCE .ROUTE; Start 02/14/25 at 08:17; Stop 02/14/25 at 08:17; Status DC Epinephrine HCl 1 mg STK-MED ONCE .ROUTE; Start 02/14/25 at 08:17; Stop 02/14/25 at 08:17; Status DC Sodium Bicarbonate 200 ml @ As Directed STK-MED ONCE .ROUTE; Start 02/14/25 at 08:17; Stop 02/14/25 at 08:17; Status DC Norepinephrine Bitartrate 4 mg STK-MED ONCE IV; Start 02/14/25 at 08:17; Stop 02/14/25 at 08:17; Status DC Propofol 200 mg STK-MED ONCE IV; Start 02/14/25 at 08:19; Stop 02/14/25 at 08:19; Status DC Fentanyl Citrate 1,000 mcg STK-MED ONCE IJ; Start 02/14/25 at 08:19; Stop 02/14/25 at 08:19; Status DC Midazolam HCl 2 mg STK-MED ONCE .ROUTE; Start 02/14/25 at 08:20; Stop 02/14/25 at 08:20; Status DC Rocuronium [place] 50 mg STK-MED ONCE .ROUTE; Start 02/14/25 at 08:20; Stop 02/14/25 at 08:20; Status DC Acetaminophen 1,000 mg Q6H6 IV Last administered on 02/15/25at 12:14; Start 02/14/25 at 14:00; Stop 02/15/25 at 13:59; Status DC Aspirin 81 mg ONCE ONCE NG Last administered on 02/14/25at 13:56; Start 02/14/25 at 14:00; Stop 02/14/25 at 14:01; Status DC Docusate Sodium 100 mg BID PO Last administered on 02/18/25at 08:13; Start 02/14/25 at 21:00; Stop 03/16/25 at 20:59 Lactulose 20 gm BID PRN PO; Start 02/14/25 at 10:00; Stop 03/16/25 at 09:59 Furosemide 20 mg Q12H PO Last administered on 02/16/25at 08:19; Start 02/16/25 at 09:00; Stop 02/16/25 at 10:21; Status DC Furosemide 20 mg Q12H IV Last administered on 02/15/25at 20:16; Start 02/15/25 at 09:00; Stop 02/16/25 at 08:59; Status DC Atorvastatin Calcium 40 mg HS PO Last administered on 02/17/25at 20:15; Start 02/14/25 at 21:00; Stop 03/16/25 at 20:59 Enoxaparin Sodium 30 mg DAILY SQ Last administered on 02/18/25at 08:17; Start 02/17/25 at 09:00; Stop 03/19/25 at 08:59 Metoprolol Tartrate 12.5 mg BID PO; Start 02/16/25 at 09:00; Stop 03/18/25 at 08:59 Magnesium Hydroxide 30 ml DAILY PRN PO; Start 02/14/25 at 10:00; Stop 03/16/25 at 09:59 Dexmedetomidine/ Sodium Chloride 400 mcg PROTOCOL IV; Start 02/14/25 at 10:00; Stop 02/15/25 at 09:59; Status DC Acetaminophen 650 mg Q6H PRN PO; Start 02/14/25 at 10:00; Stop 03/16/25 at 09:59 Heparin Sodium (Porcine) 10,000 unit STK-MED ONCE .ROUTE; Start 02/14/25 at 10:00; Stop 02/14/25 at 10:00; Status DC Sodium Chloride 1,000 ml @ 10 mls/hr ONCE IV; Start 02/14/25 at 10:00; Stop 02/15/25 at 09:59; Status DC Sodium Chloride 10 ml Q8H PRN IVP; Start 02/14/25 at 10:00; Stop 03/16/25 at 09:59 Morphine Sulfate 0.5 mg Q2H PRN IV; Start 02/14/25 at 10:00; Stop 02/15/25 at 09:59; Status DC Morphine Sulfate 1 mg Q2H PRN IV Last administered on 02/14/25at 14:23; Start 02/14/25 at 10:30; Stop 02/21/25 at 10:29 Acetaminophen 650 mg Q4H PRN RC; Start 02/14/25 at 10:00; Stop 03/16/25 at 09:59 Ondansetron HCl 4 mg Q6H PRN IV; Start 02/14/25 at 10:00; Stop 03/16/25 at 09:59 Sodium Chloride 500 ml @ 0 mls/hr AD IV; Start 02/14/25 at 10:00; Stop 03/16/25 at 09:59 Nitroglycerin/ Dextrose 0 ml @ 0 mls/hr AD IV; Start 02/14/25 at 10:00; Stop 02/17/25 at 09:59; Status DC Propofol 100 ml @ 0 mls/hr AD PRN IV; Start 02/14/25 at 10:00; Stop 02/18/25 at 09:59; Status DC Norepinephrine Bitartrate 8 mg/ Dextrose 250 ml @ 0 mls/hr AD PRN IV; Start 02/14/25 at 10:00; Stop 02/14/25 at 10:14; Status DC Epinephrine HCl 10 mg/Sodium Chloride 250 ml @ 0 mls/hr AD PRN IV; Start 02/14/25 at 10:00; Stop 02/14/25 at 10:14; Status DC Aminocaproic Acid 11578 mg/Sodium Chloride 310 ml @ 25 mls/hr AD IV; Start 02/14/25 at 10:00; Stop 02/14/25 at 10:19; Status DC Calcium Gluconate 1 gm/Sodium Chloride 60 ml @ 200 mls/hr AD PRN IV Last administered on 02/18/25at 04:22; Start 02/14/25 at 10:00; Stop 03/16/25 at 09:59 Magnesium Sulfate 50 ml @ 12.5 mls/hr AD PRN IV Last administered on 02/18/25at 04:48; Start 02/14/25 at 10:00; Stop 03/16/25 at 09:59 Potassium Chloride 100 ml @ 100 mls/hr AD PRN IV Last administered on 02/18/25at 04:18; Start 02/14/25 at 10:00; Stop 03/16/25 at 09:59 Potassium Phosphate 250 ml @ 42 mls/hr AD PRN IV; Start 02/14/25 at 10:00; Stop 03/16/25 at 09:59 Albumin Human 250 ml @ 0 mls/hr AD PRN IV Last administered on 02/14/25at 14:42; Start 02/14/25 at 10:00; Stop 02/14/25 at 14:42; Status DC Acetaminophen 650 mg Q4H PRN PO; Start 02/14/25 at 10:00; Stop 03/16/25 at 09:59 Insulin Human Regular 100 unit/ Sodium Chloride 100 ml @ 0 mls/hr AD IV Last administered on 02/15/25at 06:30; Start 02/14/25 at 10:00; Stop 02/16/25 at 09:59; Status DC Cefazolin Sodium 2 gm Q8H IVPB Last administered on 02/15/25at 06:25; Start 02/14/25 at 15:00; Stop 02/15/25 at 07:01; Status DC Tramadol HCl 25 mg Q6H PRN PO; Start 02/14/25 at 10:00; Stop 02/19/25 at 09:59 Tramadol HCl 50 mg Q6H PRN PO; Start 02/14/25 at 10:00; Stop 02/19/25 at 09:59 Famotidine 20 mg BID IV Last administered on 02/15/25at 20:15; Start 02/14/25 at 21:00; Stop 02/16/25 at 07:58; Status DC Sodium Bicarbonate 50 meq AD PRN IV Last administered on 02/16/25at 15:25; Start 02/14/25 at 10:00; Stop 02/17/25 at 09:59; Status DC Dextrose 50 ml AD PRN IV; Start 02/14/25 at 10:00; Stop 03/16/25 at 09:59 Glucagon 1 mg AD PRN IM; Start 02/14/25 at 10:00; Stop 03/16/25 at 09:59 Dobutamine HCl 250 mg STK-MED ONCE .ROUTE; Start 02/14/25 at 10:28; Stop 02/14/25 at 10:28; Status DC Sodium Bicarbonate 50 ml @ As Directed STK-MED ONCE .ROUTE; Start 02/14/25 at 10:52; Stop 02/14/25 at 10:52; Status DC Sodium Bicarbonate 200 ml @ As Directed STK-MED ONCE .ROUTE; Start 02/14/25 at 10:53; Stop 02/14/25 at 10:53; Status DC Vasopressin 20 units STK-MED ONCE .ROUTE; Start 02/14/25 at 11:51; Stop 02/14/25 at 11:51; Status DC Rocuronium [place] 50 mg STK-MED ONCE .ROUTE; Start 02/14/25 at 12:14; Stop 02/14/25 at 12:14; Status DC Sodium Bicarbonate 100 ml @ As Directed STK-MED ONCE .ROUTE; Start 02/14/25 at 12:16; Stop 02/14/25 at 12:16; Status DC Vasopressin 40 units/Sodium Chloride 40 ml @ 0 mls/hr PROTOCOL IV Last administered on 02/14/25at 22:11; Start 02/14/25 at 13:00; Stop 03/16/25 at 12:59 Albumin Human 250 ml @ 0 mls/hr AD IV Last administered on 02/18/25at 10:27; Start 02/14/25 at 15:30; Stop 02/18/25 at 10:40; Status DC Calcium Gluconate 2 gm/Sodium Chloride 100 ml @ 0 mls/hr ONCE ONCE IV Last administered on 02/14/25at 16:15; Start 02/14/25 at 16:30; Stop 02/14/25 at 16:31; Status DC Pharmacy Profile Note 1 each ONCE MISC; Start 02/14/25 at 18:00; Stop 02/14/25 at 18:27; Status DC Sodium Bicarbonate 25 meq/Dextrose 1,025 ml @ 0 mls/hr Q0M IV Last administered on 02/14/25at 18:19; Start 02/14/25 at 18:00; Stop 03/16/25 at 17:59 Famotidine 20 mg BID PO Last administered on 02/16/25at 20:03; Start 02/16/25 at 09:00; Stop 02/17/25 at 07:09; Status DC Insulin Human Regular INSULIN SLIDING SCAL... ACHS SQ Last administered on 02/17/25at 11:36; Start 02/16/25 at 11:30; Stop 03/18/25 at 11:29 Cefepime HCl 1 gm Q12H IVPB Last administered on 02/18/25at 10:27; Start 02/16/25 at 10:30; Stop 02/26/25 at 10:29 Furosemide 100 mg/ Sodium Chloride 100 ml @ 0 mls/hr PROTOCOL IV Last administered on 02/17/25at 14:05; Start 02/16/25 at 10:30; Stop 03/18/25 at 10:29 Vancomycin HCl 500 ml @ 250 mls/hr ONCE ONCE IV Last administered on 02/16/25at 11:39; Start 02/16/25 at 12:00; Stop 02/16/25 at 13:59; Status DC Sodium Chloride 4 ml STK-MED ONCE IH Last administered on 02/16/25at 10:53; Start 02/16/25 at 10:44; Stop 02/16/25 at 10:44; Status DC Sodium Chloride 4 ml STK-MED ONCE IH Last administered on 02/16/25at 14:33; Start 02/16/25 at 14:26; Stop 02/16/25 at 14:26; Status DC Sodium Chloride 4 ml STK-MED ONCE IH Last administered on 02/16/25at 19:16; Start 02/16/25 at 18:32; Stop 02/16/25 at 18:32; Status DC Famotidine 20 mg DAILY PO Last administered on 02/18/25at 08:13; Start 02/17/25 at 09:00; Stop 03/18/25 at 08:59 Latanoprost 1 DROP FOR EACH EYE HS OP; Start 02/17/25 at 21:00; Stop 03/19/25 at 20:59 Home Med (Brimonidine-Timolol 0.2%/0.5% EYE DROPS) DAILY OP; Start 02/18/25 at 09:00; Stop 03/20/25 at 08:59 Albumin Human 250 ml @ 0 mls/hr AD IV; Start 02/18/25 at 10:30; Stop 02/23/25 at 10:29 Vancomycin HCl 1 each AD IV; Start 02/18/25 at 11:00; Stop 03/04/25 at 10:59 Vancomycin HCl 250 ml @ 125 mls/hr Q12H IV; Start 02/18/25 at 11:30; Stop 02/28/25 at 11:29 PHYSICAL EXAMINATION: GENERAL: No acute distress. HEENT: Normocephalic, atraumatic. CARDIAC: Positive S1 and S2. No murmurs. LUNGS: Clear to auscultation bilaterally. ABDOMEN: Bowel sounds present, soft, nontender. EXTREMITIES: No edema bilaterally. NEUROLOGIC: Cranial nerves 2-12 grossly intact. PSYCHIATRIC: Calm. TELEMETRY: Sinus rhythm ASSESSMENT: 1. Non ST-elevation myocardial infarction 2. Remote myocardial infarction status post stenting of the mid LAD and distal LAD February 2016 3. 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 Diabetes mellitus type 2 6. Dyslipidemia 7. Hypertension 8. 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 Shinto 10. History of beta estela intolerance due to erectile dysfunction 11. Status post coronary artery bypass grafting x3 with a oliver-lad, SVG-OMB, SVG-PDA with 5.5 Impella placement still active PLAN: Currently patient remains on an epinephrine drip. We do have a 2D echocardiogram pending to confirm placement of Impella. Impella management per CT surgery. At this time we will hold off on a guideline directed medical therapy involving CHRISTIANNE inhibition, ARB,ARNI's and/or beta-blockade until epinephrine drip has been discontinued. Likely Impella will be in place until Thursday. Patient will remain in the ICU. Would continue with antiplatelet agent as well as high-dose statin. We will continue to follow closely. BILLY FOSTER MD Feb 18, 2025 11:37
[2025-02-18] MEDS: VANCOMYCIN 1G/250ML KIT 250 ML IV SCH (12:30)
[2025-02-18 12:45] LABS: ABG BASE EXCESS -0.2 mmol/L (-2.0-3.0); ABG HCO3 22.3 mmol/L (21.0-28.0); ABG OXYGEN SATURATION 94.3 % (94.0-98.0); ABG PCO2 29 mmHg (35-48); ABG PH 7.509 (7.350-7.450); CARBON MONOXIDE 0.7 % (0.5-1.5); DEVICE COMMENT RN ARACELY; PO2, ARTERIAL BG 71.3 mmHg (83.0-108.0); TEMPERATURE, CELSIUS BG 37.0 CELSIUS (35.5-37.0); VENT MODE, BG RA (ROOM AIR)
--- NOTE | 2025-02-18 14:24 | PN ---
[facility] PROGRESS NOTE Date of Service: Feb 18, 2025 Time of Service: 9:10 HISTORY OF PRESENT ILLNESS: This is a 74-year-old male,a Congregational by judaism whith past medical history of diabetes, hyperlipidemia and MS/coronary artery disease with cardiac stent who presented to the Ed for complaints of midsternal chest pain that is non radiating associated with diaphoresis and this happened when patient was laying down in bed aroun 11:50 pm last night and decided to come to the ED for evaluation.Patient reports pain was persistent.As per patient he had a history of heart attack before and underwent a stent placement.Patient reports the only medication he is taking is Metformin.Patient states he is supposed to be on Aspirin but has stopped taking it.Patient reports he occasionally drinks beer and last drink was yesterday ,had 2 beers he said. Seen and examined patient in the ER awake,alert and coherent,appears comfortable.Patient denies fever,chills,cough,nausea,vomiting,palpitation and shortness of breath. Latest vital signs temperature 98.2, heart rate 75, blood pressure 124/70 saturation 97% on room air. Labs: CBC unremarkable. Chloride 99, BUN 21, random glucose 469 to 439 to 327. Troponin from -. ECG result revealed revealed sinus rhythm heart rate 85 with atrial premature complex anterolateral infarct age indeterminate. Second EKG result revealed sinus rhythm heart rate 73 with left anterior fascicular block. Probable anterolateral infarct age indeterminate. Abnormal T consider ischemia lateral leads.. Chest x-ray result revealed no acute cardiopulmonary process is evident. While in the ER patient received 1500 mL NS bolus, insulin 5 units IV, aspirin 325 mg p.o. and patient was started on heparin drip per ACS protocol. SUBJECTIVE: 02/10/25: Patient was seen and evaluated in ED9. Patient was alert, awake and orientedX3. Patient reports that he doesn't have any chest pain today. Patient reports occasional shortness of breath during nights. Patient denies any shortness of breath, nausea, vomiting, palpitations and lightheadedness. Patient denies any abdominal pain, burning urination. Patient mentions that he only takes metformin 3-4 times per week and has stopped taking aspirin because it wasn't reconciled. Troponin from -. 2D ECHO was done, pending results. Patient is currently on Heparin drip 02/11/25: Patient was evaluated at the bedside this morning. No overnight event. He is AAO x3. patient reported that he does not have chest pain or shortness of breath. He is hemodynamically stable. The labs remarkable for potassium 3.3, magnesium 1.6, HbA1c 13.9, troponin 02633. Left heart catheterization revealed severe triple-vessel disease. Echocardiogram revealed 25% ejection fraction with segmental akinesis. CT surgery was consulted who recommended CABG with Impella left ventricle assist. Family to decide about the procedure. He is currently on heparin drip, aspirin. Endocrinology on board. Rest of the plan as discussed below. 02/12/25: Patient was evaluated at the bedside this morning. No overnight event. He is AAO x3. patient reported that he does not have chest pain or shortness of breath. He is hemodynamically stable. Cardiology is on board and Dr. Blanton have suggested low-dose beta estela like metoprolol tartrate 12.5 mg b.i.d. for his heart failure. Dr Kaur still recommends CABG with 5.5 Impella LVAD and the patient agrees to it. We will continue Entresto, Aldactone, Jardiance, aspirin, Lasix as per CT surgeon recommendations. Today his potassium is 3.1 and we would like to be above 4 for CABG patients. So we will replace potassium 02/13/25: Patient was seen and evaluated in room 201. Patient reports feeling better. patient denies any chest pain, shortness of breath. He is continuing on Entresto, Aldactone, Jardiance, aspirin, Lasix as per CT surgeon recommendations.Patients Potassium today is 3.7, will continue replacing potassium. Patients was present along with the patient, she has a few question about the CABG procedure which she wanted to ask Dr. Pacheco. 02/14/25. Patient was undergoing CABG procedure today in the morning. 02/15/25: Patient was seen and evaluated in room 213. Patient status post CABG day 1. Patient denies any fever, chills, shortness of breath. Patient complaints of pain along the incision. Patient is on IABP and Impella support. patient is on Vasopressin and Norepinephrine drip. Entresto, Aldactone, Jardiance were discontinued by Dr. Pacheco. CT surgery are on the case and will follow their recommendations. 02/16/25: Patient was seen and evaluated in room 213. Patient status post CABG day 2. patient was asleep when we went bedside. Spoke with the nurse regarding overnights and she mentioned that patient was a bit confused in the night but later improved with sleep. Patient is continuing on Epinephrine drip. Patient was weaned off IABP and is currently only on Impella. Patient was started on Vancomycin and cefepime due to elevated WBC levels and findings suggestive of pneumonia on chest x-ray 02/17/25: Patient was seen and evaluated in room 213. Patient status post CABG day 2. patient was asleep when we went bedside. Spoke with the nurse regarding overnights and he mentioned that patient was started on lasix protocol. Patient is continuing on Epinephrine drip and Impella. Critical care are on the case and will follow their recommendations. 02/18/25: Patient was seen and examined at bedside. He is status post CABG day 3. He continues on Lasix drip 2.5, With Impella P3 support and epinephrine drip. His total output in the past 24 hours has been optimal, 4740 versus 2165 input. No acute events overnight. We will follow CTS recommendations regarding further weaning off Impella. REVIEW OF SYSTEMS CONSTITUTIONAL: Denies fevers, chills, or night sweats. No unintentional weight loss reported. NEUROLOGICAL: Denies headache, amaurosis fugax, motor weakness, sensory deficit, vertigo/spinning sensation, gait abnormalities, or tremors. ENT: No hearing loss, otalgia, otorrhea, rhinitis, rhinorrhea, hoarseness, or sore throat. CARDIOVASCULAR: Denies chest pain, dyspnea on exertion, orthopnea, paroxysmal nocturnal dyspnea, palpitations, life-threatening arrhythmias, claudication. PULMONARY: Denies any cough, phlegm/sputum, hemoptysis, pleuritic chest pain. GASTROINTESTINAL: Denies any type of dysphagia to either liquids or solids. Denies nausea, vomiting, pyrosis, early satiety, abdominal pain, diarrhea, constipation, or changes in stool consistency or caliber. Denies coffee-ground emesis, hematemesis, hematochezia, or melanotic stools. GENITOURINARY: Denies frequency, urgency, nocturia, hematuria or incontinence (Storage/Irritative symptoms.) Low urinary stream, straining to void, urinary intermittency or hesitancy, splitting of the voiding stream, terminal dribbling. PHYSICAL EXAM GENERAL APPEARANCE: The patient is awake, alert, and oriented, in no acute cardiopulmonary distress. NEUROLOGICAL: Cranial nerves II-XII grossly intact. Motor is 5/5 in bilateral upper and lower extremities proximal to distal. No sensory deficits. HEENT: Face is symmetric. Pupils are equal and reactive. Extraocular movements are intact. NECK: Supple. No JVD. No thyromegaly. No submental, submandibular, pre- /postauricular, occipital or supraclavicular lymphadenopathy. CHEST: Normal chest expansion. No Telemetry. LUNGS: Absence of any rales, rhonchi or any wheezing. CARDIOVASCULAR: Regular. S1 and S2 normal. No appreciable rubs, murmurs or gallops. ABDOMEN: Soft, nontender, and nondistended. There is no rebound, voluntary guarding, or rigidity. : Deferred. No De Jesus. EXTREMITIES: Non-edematous and not cyanotic. No clubbing. Good capillary refill. SKIN: No skin breakdown. Vital Signs (last 8hr) Date Time Temp Pulse Resp B/P (MAP) Pulse Ox O2 Delivery O2 Flow Rate FiO2 02/18/25 12:54 97 18 N/Cannula Low lpm 28 02/18/25 12:15 84 19 113/50 (71) 95 02/18/25 12:00 98.8 02/18/25 12:00 98.1 84 22 128/65 (86) 95 96/52 (67) 02/18/25 12:00 95 Room Air* 0 21 02/18/25 11:45 84 19 103/45 (64) 89 02/18/25 11:30 85 20 128/64 (85) 94 02/18/25 11:15 86 20 104/87 (93) 97 02/18/25 11:00 92 21 120/57 (78) 94 108/70 (83) 02/18/25 10:30 96 22 127/52 (77) 95 02/18/25 10:15 95 15 125/52 (76) 94 02/18/25 10:00 99 19 120/55 (76) 93 102/59 (73) 02/18/25 09:30 99 15 113/55 (74) 94 02/18/25 09:15 98 19 120/52 (74) 94 02/18/25 09:00 99 18 112/52 (72) 93 101/64 (76) 02/18/25 08:45 99 20 119/54 (75) 93 02/18/25 08:30 98 20 116/52 (73) 93 02/18/25 08:15 97 17 102/55 (71) 92 02/18/25 08:00 98.8 94 13 101/51 (68) 94 91/64 (73) 02/18/25 08:00 98.8 02/18/25 07:52 97 18 N/A Room Air 21 02/18/25 07:45 96 10 103/48 (66) 94 02/18/25 07:30 96 Room Air* 0 21 02/18/25 07:30 97 21 92/52 (65) 94 02/18/25 07:15 97 16 114/47 (69) 95 02/18/25 07:00 94 19 115/50 (71) 93 106/58 (74) 02/18/25 06:45 96 14 108/49 (68) 93 02/18/25 06:30 94 19 95/61 (72) 95 LABS: Laboratory: Test 02/18/25 12:42 02/18/25 12:26 02/18/25 04:11 02/17/25 04:29 Range/Units Blood Gas Specimen Type Arterial Arterial Blood pH 7.509 H 7.350-7.450 Arterial Blood Partial Pressure CO2 29 L 35-48 mmHg Arterial Blood Partial Pressure O2 71.3 L 83.0-108.0 mmHg Arterial Blood HCO3 22.3 21.0-28.0 mmol/L Arterial Blood Oxygen Saturation 94.3 94.0-98.0 % Arterial Blood Base Excess -0.2 -2.0-3.0 mmol/L Hemoglobin (Blood Gas) 8.8 L 13.5-17.5 g/dL Sodium (Blood Gas) 133 L 136-145 MMOL/L Bedside Potassium (Blood Gas) 3.5 3.4-4.5 MMOL/L Bedside Chloride (Blood Gas) 96 L 98-107 MMOL/L Bedside Glucose (Blood Gas) 207 H 65-95 MG/DL Bedside Ionized Calcium (Blood Gas) 1.07 L 1.15-1.33 MMOL/L Bedside Lactic Acid (Blood Gas) 1.29 H 0.36-0.75 MMOL/L Blood Gas Temperature 37.0 35.5-37.0 CELSIUS Blood Gas Vent Mode RA ROOM AIR FiO2 21.0 % Blood Gas Specimen Comment ADI SANON Whole Blood Glucose 198 H 70-110 MG/DL White Blood Count 15.7 H 4.8-10.8 K/uL Red Blood Count 2.80 L 4.50-6.20 MIL/uL Hemoglobin 8.3 L 14.0-18.0 g/dL Hematocrit 25.0 L 42-54 % Mean Corpuscular Volume 89.3 79-99 fL Mean Corpuscular Hemoglobin 29.6 27.0-33.0 pg Mean Corpuscular Hemoglobin Concent 33.2 32.0-36.0 g/dL Red Cell Distribution Width 14.0 11.0-15.5 % Platelet Count 149 130-400 K/uL Mean Platelet Volume 11.4 H 7.5-10.5 fL Immature Granulocyte % (Auto) 1.5 H 0-1 % Neutrophils (%) (Auto) 74.2 40.0-77.0 % Lymphocytes (%) (Auto) 12.6 L 21.0-51.0 % Monocytes (%) (Auto) 11.0 3.0-13.0 % Eosinophils (%) (Auto) 0.4 0.0-8.0 % Basophils (%) (Auto) 0.3 0.0-5.0 % Neutrophils # (Auto) 11.6 H 1.8-7.7 K/uL Lymphocytes # (Auto) 2.0 1.0-4.8 K/uL Monocytes # (Auto) 1.7 H 0.1-1.0 K/uL Eosinophils # (Auto) 0.06 0.00-0.70 K/uL Basophils # (Auto) 0.04 0.00-0.20 K/uL Absolute Immature Granulocyte (auto 0.24 0-1 K/uL Nucleated Red Blood Cells 0.4 H 0.0-0.19 % Blood Gas Flow-by 2.00 0.00-15.00 L/min Sodium Level 136 136-145 mmol/L Potassium Level 3.6 3.5-5.1 mmol/L Chloride Level 94 L 101-111 mmol/L Carbon Dioxide Level 24 21-32 mmol/L Blood Urea Nitrogen 25 H 7-18 mg/dL Creatinine 1.0 0.5-1.3 mg/dL Glomerular Filtration Rate Calc 78 >90 mL/min Random Glucose 165 H 70-105 mg/dL Total Calcium 8.5 8.5-10.1 mg/dL Magnesium Level 1.80 1.80-2.40 mg/dL Total Bilirubin 1.4 H 0.2-1.0 mg/dL Aspartate Amino Transf (AST/SGOT) 44 H 10-37 U/L Alanine Aminotransferase (ALT/SGPT) 22 12-78 U/L Alkaline Phosphatase 59 50-136 U/L Total Protein 5.6 L 6.0-8.3 g/dL Albumin 2.3 L 3.5-5.0 g/dL Test 02/17/25 03:12 Range/Units Blood Gas Respiration Rate 5.0 min. Current Medications Medications (Trade) Dose Ordered Sig/Carol Route PRN Reason Start Time Stop Time Status Last Admin Dose Admin Acetaminophen (TYLenol 325MG TAB) 650 mg Q4H PRN PO MILD PAIN (1-3) 02/10/25 05:00 02/14/25 10:05 DC Acetaminophen (TYLenol 325MG TAB) 650 mg Q4H PRN PO Temp >38.3C(AFTER EXTUBATION) 02/14/25 10:00 03/16/25 09:59 Acetaminophen (TYLenol 325MG TAB) 650 mg Q6H PRN PO TEMPERATURE GREATER THAN 101.5 02/10/25 05:00 02/14/25 10:17 DC 02/12/25 17:13 650 MG Acetaminophen (TYLenol 325MG TAB) 650 mg Q6H PRN PO MILD PAIN (1-3) 02/14/25 10:00 03/16/25 09:59 Acetaminophen (TYLenol 650MG SUPPOSITORY) 650 mg Q4H PRN RC Temp >38.3C WHILE INTUBATED 02/14/25 10:00 03/16/25 09:59 Acetaminophen (acetaMINOPHEN 1,000MG/100ML) 1,000 mg Q6H6 IV 02/14/25 14:00 02/15/25 13:59 DC 02/15/25 12:14 1,000 MG Albumin Human 250 ml @ 0 mls/hr AD IV 02/14/25 15:30 02/18/25 10:40 DC 02/18/25 10:27 250 MLS/HR Albumin Human 250 ml @ 0 mls/hr AD IV 02/18/25 10:30 02/23/25 10:29 Albumin Human 250 ml @ 0 mls/hr AD PRN IV IF HEMODYNAMICALLY UNSTABLE 02/14/25 10:00 02/14/25 14:42 DC 02/14/25 14:42 500 MLS/HR Aminocaproic Acid 68183 mg/Sodium Chloride 310 ml @ 25 mls/hr AD IV 02/14/25 10:00 02/14/25 10:19 DC Aminocaproic Acid 81647 mg/Sodium Chloride 480 ml @ 0 mls/hr AD PRN IV BLEEDING CONTROL 02/14/25 06:30 03/16/25 06:29 Aminocaproic Acid 66470 mg/Sodium Chloride 480 ml @ 0 mls/hr AD PRN IV BLEEDING CONTROL 02/14/25 07:00 02/14/25 06:51 DC Aspirin (Aspirin 325mg Tab) 325 mg ONCE PO 02/10/25 14:30 02/10/25 17:22 DC 02/10/25 14:32 325 MG Aspirin (Aspirin 81mg Ec Tab) 81 mg DAILY PO 02/10/25 09:00 03/12/25 08:59 02/18/25 08:14 81 MG Atorvastatin Calcium (LIPItor 40MG) 40 mg HS PO 02/14/25 21:00 03/16/25 20:59 02/17/25 20:15 40 MG Calcium Gluconate 1 gm/Sodium Chloride 60 ml @ 200 mls/hr AD PRN IV HYPOCALCEMIA 02/14/25 10:00 03/16/25 09:59 02/18/25 12:49 200 MLS/HR Cefazolin Sodium (Ancef) 2 gm ONCALL IVP 02/13/25 20:00 02/14/25 18:51 DC 02/14/25 08:50 2 GM Cefazolin Sodium (Ancef) 2 gm Q8H IVPB 02/14/25 15:00 02/15/25 07:01 DC 02/15/25 06:25 2 GM Cefepime HCl (MAXipime 1 GM vial) 1 gm Q12H IVPB 02/16/25 10:30 02/26/25 10:29 02/18/25 10:27 1 GM Clopidogrel Bisulfate (plaVIX 300MG TAB) 600 mg ONCE PO 02/10/25 14:00 02/10/25 17:22 DC 02/10/25 14:19 600 MG Clopidogrel Bisulfate (plaVIX 75MG) 75 mg DAILY PO 02/11/25 09:00 02/11/25 07:28 DC Dexmedetomidine/ Sodium Chloride (PRECEdex 400MCG/ 100ML-NS) 400 mcg PROTOCOL IV 02/14/25 10:00 02/15/25 09:59 DC Dextrose (D50w) 50 ml AD PRN IV HYPOGLYCEMIA PROTOCOL 02/10/25 05:00 02/14/25 10:17 DC Dextrose (D50w) 50 ml AD PRN IV HYPOGLYCEMIA PROTOCOL 02/14/25 10:00 03/16/25 09:59 Docusate Sodium (COLace 100MG CAP) 100 mg BID PO 02/14/25 21:00 03/16/25 20:59 02/18/25 08:13 100 MG Empaglifozin (Jardiance 10mg) 10 mg DAILY PO 02/10/25 14:30 02/14/25 09:59 DC 02/13/25 10:52 10 MG Enoxaparin Sodium (Lovenox) 30 mg DAILY SQ 02/17/25 09:00 03/19/25 08:59 02/18/25 08:17 30 MG Epinephrine HCl 10 mg/Sodium Chloride 250 ml @ 0 mls/hr AD PRN IV TITRATE 02/14/25 06:30 03/16/25 06:29 02/16/25 00:51 4.32 MLS/HR Epinephrine HCl 10 mg/Sodium Chloride 250 ml @ 0 mls/hr AD PRN IV TITRATE 02/14/25 07:00 02/14/25 06:51 DC Epinephrine HCl 10 mg/Sodium Chloride 250 ml @ 0 mls/hr AD PRN IV POST-OP CARDIOVASCULAR ORDERS 02/14/25 10:00 02/14/25 10:14 DC Famotidine (Pepcid 20mg Vial) 20 mg BID IV 02/14/25 21:00 02/16/25 07:58 DC 02/15/25 20:15 20 MG Famotidine (Pepcid 20mg Tab) 20 mg BID PO 02/16/25 09:00 02/17/25 07:09 DC 02/16/25 20:03 20 MG Famotidine (Pepcid 20mg Tab) 20 mg DAILY PO 02/10/25 09:00 02/14/25 09:59 DC 02/13/25 10:53 20 MG Famotidine (Pepcid 20mg Tab) 20 mg DAILY PO 02/17/25 09:00 03/18/25 08:59 02/18/25 08:13 20 MG Furosemide (LASix 20MG TAB) 20 mg DAILY PO 02/11/25 09:00 02/14/25 09:59 DC 02/13/25 10:52 20 MG Furosemide (LASix 20MG TAB) 20 mg Q12H PO 02/16/25 09:00 02/16/25 10:21 DC 02/16/25 08:19 20 MG Furosemide (LASix 20MG VIAL) 20 mg ONCE IV 02/10/25 17:00 02/10/25 21:00 DC 02/10/25 17:00 20 MG Furosemide (LASix 20MG VIAL) 20 mg ONCE IV 02/11/25 09:00 02/11/25 07:43 DC Furosemide (LASix 20MG VIAL) 20 mg Q12H IV 02/15/25 09:00 02/16/25 08:59 DC 02/15/25 20:16 20 MG Furosemide 100 mg/ Sodium Chloride 100 ml @ 0 mls/hr PROTOCOL IV 02/16/25 10:30 03/18/25 10:29 02/17/25 14:05 10 MLS/HR Glucagon (Glucagon 1mg Kit) 1 mg AD PRN IM HYPOGLYCEMIA PROTOCOL 02/10/25 05:00 02/14/25 10:17 DC Glucagon (Glucagon 1mg Kit) 1 mg AD PRN IM HYPOGLYCEMIA PROTOCOL 02/14/25 10:00 03/16/25 09:59 Heparin Sodium (Porcine) (HEParin 5,000 UNIT VIAL) *calculation based on ACTUAL B... AD PRN IV HEPARIN PROTOCOL 02/12/25 21:00 02/14/25 09:59 DC 02/12/25 20:16 4,000 UNIT Heparin Sodium/ Dextrose 250 ml @ 0 mls/hr PROTOCOL IV 02/10/25 03:00 02/10/25 17:22 DC 02/10/25 03:00 16.2 MLS/HR Heparin Sodium/ Dextrose 250 ml @ 0 mls/hr Q6H IV 02/11/25 06:30 02/14/25 09:59 DC 02/13/25 13:01 9 MLS/HR Home Med (Home Medication) (Brimonidine-Timolol 0.2%/0.5% EYE DROPS) DAILY OP 02/18/25 09:00 03/20/25 08:59 Insulin Glargine (LANtus 100 UNITS/ML 10 ML VIAL) 12 units DAILY08 SQ 02/13/25 08:00 02/14/25 09:59 DC 02/13/25 10:51 12 UNITS Insulin Glargine (LANtus 100 UNITS/ML 10 ML VIAL) 15 units DAILY08 SQ 02/11/25 08:00 02/13/25 05:24 DC 02/12/25 08:54 15 UNITS Insulin Human Regular (humuLIN R 100 UNIT/ML 3ML) 3 unit TIDAC SQ 02/12/25 07:30 02/14/25 09:59 DC 02/12/25 16:31 3 UNIT Insulin Human Regular (humuLIN R 100 UNIT/ML 3ML) INSULIN SLIDING SCAL... ACHS SQ 02/16/25 11:30 03/18/25 11:29 02/18/25 12:31 2 UNIT Insulin Human Regular (humuLIN R 100 UNIT/ML 3ML) INSULIN SLIDING SCAL... Q4H SQ 02/10/25 05:00 02/10/25 11:10 DC 02/10/25 09:15 6 UNIT Insulin Human Regular (humuLIN R 100 UNIT/ML 3ML) INSULIN SLIDING SCAL... Q6H6 SQ 02/10/25 12:00 02/14/25 09:59 DC 02/11/25 17:29 2 UNIT Insulin Human Regular 100 unit/ Sodium Chloride 100 ml @ 0 mls/hr AD IV 02/14/25 10:00 02/16/25 09:59 DC 02/15/25 06:30 3 MLS/HR Lactulose (Constulose 20gm/ 30ml Udcup) 20 gm BID PRN PO CONSTIPATION 02/14/25 10:00 03/16/25 09:59 Latanoprost (Xalatan) 1 DROP FOR EACH EYE HS OP 02/17/25 21:00 03/19/25 20:59 Magnesium Hydroxide (Milk Of Magnesium 30ml) 30 ml DAILY PRN PO CONSTIPATION 02/14/25 10:00 03/16/25 09:59 Magnesium Sulfate 50 ml @ 12.5 mls/hr AD PRN IV MAG LEVEL LESS THAN 2.0 02/14/25 10:00 03/16/25 09:59 02/18/25 04:48 12.5 MLS/HR Magnesium Sulfate 50 ml @ 0 mls/hr PROTOCOL PRN IV OTHER [SEE ORDER COMMENTS] 02/10/25 05:00 02/14/25 10:17 DC 02/12/25 07:13 25 MLS/HR Metoprolol Tartrate (loprESSOR) 12.5 mg BID PO 02/12/25 09:00 02/14/25 09:59 DC 02/14/25 06:44 12.5 MG Metoprolol Tartrate (loprESSOR) 12.5 mg BID PO 02/16/25 09:00 03/18/25 08:59 Morphine Sulfate (morPHINE 2MG SYG) 0.5 mg Q2H PRN IV MODERATE PAIN (4-6) IF NPO 02/14/25 10:00 02/15/25 09:59 DC Morphine Sulfate (morPHINE 2MG SYG) 1 mg Q2H PRN IV SEVERE PAIN (7-10) IF NPO 02/14/25 10:30 02/21/25 10:29 02/14/25 14:23 1 MG Nitroglycerin (Nitrostat) 0.4 mg PROTOCOL PRN SL CHEST PAIN 02/10/25 05:00 02/14/25 09:59 DC Nitroglycerin/ Dextrose 0 ml @ 0 mls/hr AD IV 02/14/25 10:00 02/17/25 09:59 DC Norepinephrine Bitartrate 250 ml @ 0 mls/hr AD PRN IV TITRATE 02/14/25 06:30 03/16/25 06:29 02/17/25 01:06 1.9 MLS/HR Norepinephrine Bitartrate 250 ml @ 0 mls/hr AD PRN IV TITRATE 02/14/25 07:00 02/14/25 06:51 DC Norepinephrine Bitartrate 8 mg/ Dextrose 250 ml @ 0 mls/hr AD PRN IV POST-OP CARDIOVASCULAR ORDERS 02/14/25 10:00 02/14/25 10:14 DC Ondansetron HCl (zoFRAN 4MG INJ) 4 mg Q6H PRN IV NAUSEA/VOMITING 02/10/25 05:00 02/14/25 10:17 DC Ondansetron HCl (zoFRAN 4MG INJ) 4 mg Q6H PRN IV NAUSEA/VOMITING 02/14/25 10:00 03/16/25 09:59 Pharmacy Profile Note (Pharmacy Communication) 1 each ONCE MISC 02/14/25 18:00 02/14/25 18:27 DC Potassium Phosphate 250 ml @ 42 mls/hr AD PRN IV LOW PHOS LEVEL 02/14/25 10:00 03/16/25 09:59 Potassium Chloride 100 ml @ 100 mls/hr AD PRN IV POTASSIUM PROTOCOL 02/10/25 05:00 02/15/25 06:27 DC 02/15/25 05:43 100 MLS/HR Potassium Chloride 100 ml @ 100 mls/hr AD PRN IV HYPOKALEMIA 02/14/25 10:00 03/16/25 09:59 02/18/25 12:52 100 MLS/HR Potassium Chloride (K-Dur/Klor-Con 20meq) 20 meq AD PRN PO POTASSIUM PROTOCOL 02/10/25 05:00 03/12/25 04:59 02/13/25 05:45 20 MEQ Potassium Chloride (KCl 10% Elixir 20meq/15ml) 20 meq AD PRN PO POTASSIUM PROTOCOL 02/10/25 05:00 03/12/25 04:59 02/17/25 05:52 20 MEQ Propofol 100 ml @ 0 mls/hr AD PRN IV SEDATION 02/14/25 10:00 02/18/25 09:59 DC Sacubitril/ Valsartan (Entresto 24 Mg-26 Mg Tablet) 0.5 each BID PO 02/10/25 21:00 02/14/25 09:59 DC 02/13/25 21:11 0.5 EACH Sodium Bicarbonate 25 meq/Dextrose 1,025 ml @ 0 mls/hr Q0M IV 02/14/25 18:00 03/16/25 17:59 02/18/25 13:03 9.9 MLS/HR Sodium Bicarbonate (Sodium Bicarb 50meq 50ml Vial) 50 meq AD PRN IV OTHER[SEE DOSING INSTRUCTIONS] 02/14/25 10:00 02/17/25 09:59 DC 02/16/25 15:25 50 MEQ Sodium Chloride 500 ml @ 0 mls/hr AD IV 02/14/25 10:00 03/16/25 09:59 Sodium Chloride 1,000 ml @ 10 mls/hr ONCE IV 02/14/25 10:00 02/15/25 09:59 DC Sodium Chloride 1,000 ml @ 100 mls/hr Q10H IV 02/10/25 05:00 02/10/25 17:22 DC 02/10/25 14:20 100 MLS/HR Sodium Chloride (NS Flush 10ml) 10 ml Q8H PRN IVP IV LINE FLUSH 02/14/25 10:00 03/16/25 09:59 Spironolactone (Aldactone 25mg) 25 mg DAILY PO 02/10/25 14:30 02/14/25 09:59 DC 02/13/25 10:52 25 MG Tramadol HCl (UltRAM) 25 mg Q6H PRN PO MODERATE PAIN (4-6) 02/14/25 10:00 02/19/25 09:59 Tramadol HCl (UltRAM) 50 mg Q6H PRN PO SEVERE PAIN (7-10) 02/14/25 10:00 02/19/25 09:59 Vancomycin HCl 250 ml @ 125 mls/hr Q12H IV 02/18/25 11:30 02/28/25 11:29 02/18/25 12:30 125 MLS/HR Vancomycin HCl (Vancomycin Protocol) 1 each AD IV 02/18/25 11:00 03/04/25 10:59 Vasopressin 40 units/Sodium Chloride 40 ml @ 0 mls/hr PROTOCOL IV 02/14/25 13:00 03/16/25 12:59 02/14/25 22:11 1.8 MLS/HR DIAGNOSTICS / RADIOLOGY: PATIENT: EMMY GRACE MR#: [id number] : 1950 SEX: M AGE: 74 LOCATION: 2BH ORDER 230 STATUS: ADM IN REPORT#: [id number] SERVICE 0400 REASON: s/p CABG ORDERING PHYSICIAN: FRANKY PACHECO MD PROCEDURE: CXR1VW - CHEST 1VW EXAM: CR Chest, 1 View. CLINICAL HISTORY: s/p CABG COMPARISON: 02/16/2025 FINDINGS: The right IJ line terminates at the SVC. LUNGS: Small stable left pleural effusion with adjacent lung atelectasis. The right lung remains clear. PLEURAL SPACES: No pneumothorax. MEDIASTINUM: Cardiac size is stable. Post sternotomy changes. BONES: No acute osseous abnormality. IMPRESSION: 1. Small stable left pleural effusion with adjacent lung atelectasis. 2. Right IJ line terminates at the SVC. No significant interval changes since the prior study. /[place] DICTATED BY: LAN BURR Jr., MD DATE: 02/17/25949 ELECTRONICALLY SIGNED BY: LAN BURR Jr., MD DATE: 02/17/25949 ASSESSMENT: Chest pain rule out ACS: NSTEMI POA Suspected pneumonia findings on Chest X-ray Hyperglycemia secondary to uncontrolled diabetes POA Hyperlipidemia POA Medication noncompliance, POA Obesity POA MS/Coronary artery disease with cardiac stent POA PLAN: NSTEMI POA: * EKG was done which revealed sinus rhythm heart rate 85 with atrial premature complex anterolateral infarct age indeterminate. Second EKG result revealed sinus rhythm heart rate 73 with left anterior fascicular block. Probable anterolateral infarct age indeterminate. Abnormal T consider ischemia lateral leads. * PERC score was one, Wells score was zero. Very low suspicion for Pulmonary Embolism. * Chest x-ray done on 02/17/25 show, small stable left pleural effusion with adjacent lung atelectasis. * 2-D ECHO with ejection fraction 25% with segmental akinesis (apical, apical lateral, anteroapical), LDL 89, BNP 488 * Troponin trends 21>174>[id number]>[id number]>7546 * Left heart catheterization revealed severe three-vessel CAD with occluded mid LAD, 90% proximal left circumflex, 95% distal RCA, and 90% ostial PDA. * As per CT surgeon recommendations Entresto 0.5 each, Aldactone 25mg, Jardiance 10mg were held. 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 * On aspirin 81 mg p.o. * Continue patient on Lasix drip, 2.5 currently. Total output 4740 versus total input 2165. * Currently on Epinephrine drip. * Impella P3 support. Wean it down as recommended by CTS. * Patient was started on Lovenox 30mg. Suspected pneumonia findings on Chest X-ray * Chest x-ray done on 02/16/25 show diffuse airspace disease of the left lung, predominantly involving the left lower zone, could be due to an infection or atelectasis. Questionable left pleural effusion. * Chest x-ray done on 02/17/25 show, small stable left pleural effusion with adjacent lung atelectasis. * Patient started on Vancomycin (day3) and cefepime (day3) * WBC count on (02/16/25) - 21 * Will monitor with daily labs. Hyperglycemia secondary to uncontrolled diabetes POA: * HbA1c 13.9, blood glucose 181 * Following the Endocrinology recommendations. He is on Lantus 15 units, low- dose sliding scale insulin and Jardiance 10 mg * We will monitor blood glucose. Hypokalemia Hypomagnesemia * Potassium 3.6, magnesium 1.8 (02/18/25) * We will replete the electrolytes and monitor. * Keep potassium above 4 and magnesium above 2. * We will start Slow-Mag oral t.i.d. once and will keep monitoring magnesium levels. Supportive measures * GI prophylaxis with Famotidine * DVT prophylaxis with Lovenox ATTESTATION BY PHYSICIAN I have seen and examined the patient. I reviewed the documentation, medical decision making, and treatment plan as noted by the resident physician above. I agree with the findings and plan of care. GALINA UGARTE MD, MUHAMMAD H MD Feb 18, 2025 14:24
--- NOTE | 2025-02-18 14:57 | HMCSR ---
APPROVED REPORT EXAM: Two-dimensional and M-mode echocardiogram with Doppler and color Doppler. Study Details: HTN ,HLD , DM , NE , CADI INDICATION ICD: impella position 2D Dimensions RVDd 4.2 cm LVEF(%) 58.8 (>50%) LVED Vol(simp.) 185.6 mL IVSd 0.8 (0.7-1.1cm) FS(%) 32 % LVES Vol(simp.) 114.1 mL LVDd 5.7 (3.8-5.6cm) LA (2D) 3.5 (1.6-4.0cm) LVEF(%, simp.) 39 % PWd 1.3 (0.7-1.1cm) Ao Root(2D) 4.1 (2.0-3.7cm) LA ESV INDEX (BP) 22.78 mL/m2 IVSs 1.5 cm LVOT diam 2.7 (1.8-2.4cm) LVDs 3.9 (2.5-4.0cm) PWs 1.9 cm M-Mode Dimensions EPSS 2.4 cm LA (MM) 5.0 (1.6-4.0cm) Ao Root(MM) 4.0 (2.0-3.7cm) Aortic Valve AoV Vmax 0.9 m/s Ao Peak GR 3.0 mmHg LVOT Vmax 0.7 m/s AoV VTI 0.1 m Ao Mean GR 2.0 mmHg LVOT VTI 0.14 m MAHIN (VMAX) 4.68 cm2 MAHIN (VTI) 5.5 cm2 Mitral Valve MV E Vmax 71.4 cm/s DECEL Time 174 ms MV A Vmax 69.8 cm/s P 1/2 T 52 ms E/A ratio 1.0 MVA (PHT) 4.3 cm2 TDI E/E' Medial 12.9 E/E' Lateral 8.2 Medial E' Peak V 5.55 cm/s Lateral E' Peak V 8.66 cm/s Pulmonary Valve PV Vmax 0.8 m/s PV Mean GR 1.7 mmHg PV Peak GR 2.6 mmHg Left Ventricle The left ventricle is mildly dilated. Anterior, anteroseptal wall is akinetic. There is normal left ventricular wall thickness. LVEF is 25-30%. Stage I diastolic dysfunction. Right Ventricle The right ventricle is mildly dilated. The right ventricular systolic function is normal. Atria The left atrium size is normal. The right atrium size is normal. Aortic Valve Impella device measures 5.8 cm depth The aortic valve is mildly thickened. No aortic regurgitation is present. There is no aortic valvular stenosis. Mitral Valve The mitral valve is normal in structure and function. There is no mitral valve regurgitation noted. There is no mitral valve stenosis. Tricuspid Valve The tricuspid valve is normal in structure and function. There is no tricuspid valve regurgitation noted. Pulmonic Valve The pulmonary valve is not well visualized. There is no significant pulmonic valvular regurgitation. Great Vessels Aortic root is within normal limits. IVC is not well visualized. cover pad Pericardium not visualized ,cover pad Other Information Quality : Fair Rhythm : NSR Technically limited study due to Patient could not be placed onto left side.CABG. Conclusion The left ventricle is mildly dilated. LVEF is 25-30%. Stage I diastolic dysfunction. Anterior, anteroseptal cooper are akinetic. (Limited visualization due to inability to position patient and Impella in place) Impella device measures 5.8 cm depth
--- NOTE | 2025-02-18 14:58 | HMCIMG ---
EXAM: CR Chest, 1 View. CLINICAL HISTORY: s/p CABG COMPARISON: 02/17/2025 FINDINGS: The right IJ central venous catheter is seen again, tip at the proximal SVC. LUNGS: Interval improvement in bilateral lung aeration. Persistent left lower zone airspace disease, which could reflect atelecastis. Persistent small left pleural effusion. The left CP angle is only partially included in this exam. PLEURAL SPACES: No evidence of pneumothorax. MEDIASTINUM: Cardiac size is stable. Post-CABG changes with Impella placement. BONES: No aggressive appearing osseous lesion seen. IMPRESSION: Persistent mildly improved left lower zone airspace disease, possibly atelectasis, with a small left pleural effusion. Right IJ central venous catheter with tip at proximal SVC. Post-CABG changes with Impella placement. /Gregory
[2025-02-18 20:03] LABS: ABG BASE EXCESS 4.0 mmol/L (-2.0-3.0); ABG HCO3 27.3 mmol/L (21.0-28.0); ABG OXYGEN SATURATION 96.7 % (94.0-98.0); ABG PCO2 36 mmHg (35-48); ABG PH 7.500 (7.350-7.450); CARBON MONOXIDE 0.4 % (0.5-1.5); PO2, ARTERIAL BG 91.1 mmHg (83.0-108.0); TEMPERATURE, CELSIUS BG 37.0 CELSIUS (35.5-37.0); VENT MODE, BG NC 2L (ROOM AIR)
[2025-02-18 23:36] LABS: ABG BASE EXCESS 1.9 mmol/L (-2.0-3.0); ABG HCO3 24.9 mmol/L (21.0-28.0); ABG OXYGEN SATURATION 97.2 % (94.0-98.0); ABG PCO2 33 mmHg (35-48); ABG PH 7.499 (7.350-7.450); CARBON MONOXIDE 0.2 % (0.5-1.5); PO2, ARTERIAL BG 105.6 mmHg (83.0-108.0); TEMPERATURE, CELSIUS BG 37.0 CELSIUS (35.5-37.0); VENT MODE, BG NC 2L (ROOM AIR)
[2025-02-19] VITALS (70 sets, daily range): BP systolic 75–139; BP diastolic 44–109; PULSE 79–96; RESP 5–38; TEMP 98–98.8; O2SAT 94–99
[2025-02-19 04:21] LABS: ABG BASE EXCESS 1.3 mmol/L (-2.0-3.0); ABG HCO3 24.6 mmol/L (21.0-28.0); ABG OXYGEN SATURATION 97.0 % (94.0-98.0); ABG PCO2 34 mmHg (35-48); ABG PH 7.483 (7.350-7.450); CARBON MONOXIDE 0.5 % (0.5-1.5); PO2, ARTERIAL BG 96.6 mmHg (83.0-108.0); TEMPERATURE, CELSIUS BG 37.0 CELSIUS (35.5-37.0); VENT MODE, BG NC 2L (ROOM AIR)
[2025-02-19 04:30] LABS: NUCLEATED RED BLOOD CELLS 0.3 % (0.0-0.19); PLATELET COUNT (AUTO) 179.0 K/uL (130-400); RED BLOOD CELL COUNT(AUTO) 2.93 MIL/uL (4.50-6.20); RED CELL DISTRIBUTION WIDTH 13.5 % (11.0-15.5); WHITE BLOOD COUNT (AUTO) 15.9 K/uL (4.8-10.8)
[2025-02-19 04:42] LABS: CREATININE 0.8 mg/dL (0.5-1.3); GLOMERULAR FILTR. RATE CALC 92.0 mL/min (>90); GLUCOSE,RANDOM 163.0 mg/dL (70-105); SODIUM SERUM 132.0 mmol/L (136-145); UREA NITROGEN, BLOOD 20.0 mg/dL (7-18)
--- NOTE | 2025-02-19 08:03 | HMCIMG ---
EXAM: CR Chest, 1 View. CLINICAL HISTORY: s/p CABG COMPARISON: 02/18 6:34 EST FINDINGS: LUNGS: Right IJ central venous catheter and ventricular assist device are unchanged compared to prior study. Small left pleural effusion left basilar atelectasis. PLEURAL SPACES: No pleural effusion or pneumothorax. MEDIASTINUM: Cardiac size and mediastinal contours within normal limits. BONES: No acute osseous abnormality. IMPRESSION: Right IJ central venous catheter and ventricular assist device are unchanged compared to prior study. Small left pleural effusion left basilar atelectasis. /Astor
--- NOTE | 2025-02-19 09:57 | PN ---
[facility] PROGRESS NOTE Date Patient Seen: Feb 19, 2025 Time of Visit: 09:55 Supervising Physician: Dr Niraj Garcia Primary Care Physician: [ ] Outpatient Specialists: [ ] Inpatient Consults: [ ] PROBLEM LIST: CAD, status post CABG x3 Impella and a intra-aortic balloon pump support Type 2 diabetes Congested heart failure EF 20% INTERVAL HISTORY: Patient was seen and examined, patient is sitting comfortably at bedside, he to lerated his breakfast this morning He is comfortable reporting pain controlled, nursing reports some agitation overnight but doing well this morning He is awake alert and oriented, he continues with the Impella at P3, continues on low-dose epi Good vascular status upper and lower extremities Good urine output Chest tube out Good saturations on room air No family members at bedside. Plan: Follow CT surgeon recs/protocol I&Os Weaning pressors Follow chest x-rays PT/OT when able Patient's chest x-ray shows some improvement but he continues to need assistance or motivation for IS Total critical care time spent 42 minutes, time excludes any procedures or educational time REVIEW OF SYSTEMS: 12 point ROS reviewed with patient. Pertinent positives mentioned above. Otherwise negative. PHYSICAL EXAM: GENERAL: Patient comfortable in bed, HEENT: EOMI, Sclera non icteric, moist mucosa NECK: Supple, no JVD, trachea midline LUNGS: Clear breath sounds bilaterally. No wheezes HEART: Regular rate and rhythm. Normal S1 and S2, without murmurs ABD: Abdomen soft, nontender. Bowel sounds present EXT: No clubbing cyanosis or edema NEURO: Awake alert and oriented Vital Signs (last 8hr) Date Time Temp Pulse Resp B/P (MAP) Pulse Ox O2 Delivery O2 Flow Rate FiO2 02/19/25 08:00 98.4 02/19/25 06:20 86 19 N/A Room Air 21 02/19/25 06:15 90 15 107/49 (68) 93 02/19/25 06:00 95 21 94 28 92/57 (69) 02/19/25 05:30 89 17 139/58 (85) 100 02/19/25 05:00 89 17 99 109/66 (80) 02/19/25 04:15 88 16 99/84 (89) 99 02/19/25 04:04 98.8 02/19/25 04:03 99 Nasal Cannula* 2 28 02/19/25 04:00 88 15 124/55 (78) 99 28 111/67 (82) 02/19/25 03:45 88 15 125/56 (79) 99 02/19/25 03:30 86 19 120/54 (76) 99 02/19/25 03:15 88 17 125/55 (78) 100 02/19/25 03:00 88 16 116/59 (78) 99 28 122/63 (82) 02/19/25 02:45 87 20 126/56 (79) 99 02/19/25 02:30 88 14 125/59 (81) 99 02/19/25 02:15 86 14 121/55 (77) 99 02/19/25 02:00 88 18 121/53 (75) 99 28 110/60 (77) LABS: Hematology Labs: Test 02/19/25 04:23 02/18/25 04:11 Range/Units White Blood Count 15.9 H 4.8-10.8 K/uL Red Blood Count 2.93 L 4.50-6.20 MIL/uL Hemoglobin 8.7 L 14.0-18.0 g/dL Hematocrit 25.2 L 42-54 % Mean Corpuscular Volume 86.0 79-99 fL Mean Corpuscular Hemoglobin 29.7 27.0-33.0 pg Mean Corpuscular Hemoglobin Concent 34.5 32.0-36.0 g/dL Red Cell Distribution Width 13.5 11.0-15.5 % Platelet Count 179 130-400 K/uL Mean Platelet Volume 10.9 H 7.5-10.5 fL Nucleated Red Blood Cells 0.3 H 0.0-0.19 % Immature Granulocyte % (Auto) 1.5 H 0-1 % Neutrophils (%) (Auto) 74.2 40.0-77.0 % Lymphocytes (%) (Auto) 12.6 L 21.0-51.0 % Monocytes (%) (Auto) 11.0 3.0-13.0 % Eosinophils (%) (Auto) 0.4 0.0-8.0 % Basophils (%) (Auto) 0.3 0.0-5.0 % Neutrophils # (Auto) 11.6 H 1.8-7.7 K/uL Lymphocytes # (Auto) 2.0 1.0-4.8 K/uL Monocytes # (Auto) 1.7 H 0.1-1.0 K/uL Eosinophils # (Auto) 0.06 0.00-0.70 K/uL Basophils # (Auto) 0.04 0.00-0.20 K/uL Absolute Immature Granulocyte (auto 0.24 0-1 K/uL Chemistry Labs: Test 02/19/25 04:23 02/18/25 16:18 Range/Units Sodium Level 132 L 136-145 mmol/L Potassium Level 3.6 3.5-5.1 mmol/L Chloride Level 94 L 101-111 mmol/L Carbon Dioxide Level 25 21-32 mmol/L Blood Urea Nitrogen 20 H 7-18 mg/dL Creatinine 0.8 0.5-1.3 mg/dL Glomerular Filtration Rate Calc 92 >90 mL/min Random Glucose 163 H 70-105 mg/dL Total Calcium 8.1 L 8.5-10.1 mg/dL Magnesium Level 1.70 L 1.80-2.40 mg/dL Whole Blood Glucose 165 H 70-110 MG/DL DIAGNOSTICS / RADIOLOGY RESULTS: [ ] PLAN NEURO: Minimize central acting medications as possible. Fall Precautions. Well lighted room through the day and minimize interruptions through the night to prevent acute delirium. PULMONARY: Supplemental 02 as needed Titrate Fio2 to keep Spo2 > or = 90% DuoNebs and CPT as needed IS hourly while awake for pulmonary hygiene Out of bed to chair as tolerated VAP Bundle Vent/BIPAP Settings: [ ] Driving pressure: [ ] P Plat: [ ] Static C: [ ] Static R: [ ] P/F Ratio: [ ] CARDIOVASCULAR: Follow hemodynamics. Titrate vasopressor to keep MAP >65 or systolic blood pressure >95mmHg DIPS: [ ] LINES: [ ] GI & NUTRITION: Continue nutritional support Aspirations precautions Prokinetic agents and laxatives as needed KIDNEYS & ELECTROLYTES: Strict monitoring of intake and output Daily weights Avoid nephrotoxic agents Monitor electrolytes and replace as needed Goal urine output of 30mL/hr or 0.5mL/kg/hr Urine output: [ ] Fluid Balance: [ ] ENDOCRINE: Maintain blood glucose between 100-180 at all times. Insulin sliding scale for blood glucose management INFECTIOUS DISEASE: Trend temperature. Caldwell-culture if febrile. Micro: [ ] Antibiotics: [ ] HEMATOLOGY & COAGULATION: Monitor H&H. Keep Hgb > 7 Transfuse 1 unit of PRBC for Hgb < 7 Transfuse 1 pack of platelets of platelets < 20, 000 Watch for any signs and symptoms of bleeding SKIN: Pressure ulcer prevention per facility protocol Rehab: PT/OT Prophylaxis: GI: [ ] DVT: [ ] Code Status: Full Resuscitation Disposition: [ ] Case was discussed and seen with my supervising physician. The above plan was formulated and agreed upon. MAGGIE JARRELL PAC Feb 19, 2025 09:57
[2025-02-19] MEDS: PoTASSium chloRIDE 20MEQ ER 20 MEQ ERTAB PO SCH (11:21)
--- NOTE | 2025-02-19 12:08 | PN ---
[facility] Cardiology Progress Note PROBLEM LIST: Status post coronary artery bypass grafting x3 with a BISHOP-LAD, SVG-OMB, SVG-PDA on 02/14/2025 with 5.5 Impella or ] Non ST-elevation myocardial infarction on admission, peak troponin Remote myocardial infarction status post stenting of the mid LAD and distal LAD February 2016 Multivessel CAD with ejection fraction of 20% Chronic combined systolic and diastolic CHF, on Lasix drip 02/10/2025 preoperative echo, EF 25%, grade 3 diastolic dysfunction 05/19/2024 echo, postoperative EF 25-30%, akinetic anterior and anteroseptal w alls Ischemic cardiomyopathy Remote myocardial infarction status post stenting of the mid LAD and distal LAD February 2016 Diabetes mellitus type 2 Dyslipidemia Hypertension 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 He states he feels better than yesterday. Denies chest discomfort, palpitations, shortness of breath. He has been delirious, thinking he is in [address] [place] [address] in [place] and then in a city in [facility]. He is, however, aware that these were delusions. Epinephrine discontinued. Continues on a Lasix drip, Impella at P3. Chest tube output 60 cc yesterday. Repeat ECHO performed today, EF estimated 30-35%. No fever, reports of bleeding ] PHYSICAL EXAMINATION: Vital Signs (Last 48hrs) Date Time Temp Pulse Resp B/P (MAP) Pulse Ox O2 Delivery O2 Flow Rate FiO2 02/19/25 08:00 98.4 02/19/25 06:20 86 19 N/A Room Air 21 02/19/25 06:15 90 15 107/49 (68) 93 02/19/25 06:00 95 21 94 28 92/57 (69) 02/19/25 05:30 89 17 139/58 (85) 100 02/19/25 05:00 89 17 99 109/66 (80) 02/19/25 04:15 88 16 99/84 (89) 99 02/19/25 04:04 98.8 02/19/25 04:03 99 Nasal Cannula* 2 28 02/19/25 04:00 88 15 124/55 (78) 99 28 111/67 (82) 02/19/25 03:45 88 15 125/56 (79) 99 02/19/25 03:30 86 19 120/54 (76) 99 02/19/25 03:15 88 17 125/55 (78) 100 02/19/25 03:00 88 16 116/59 (78) 99 28 122/63 (82) 02/19/25 02:45 87 20 126/56 (79) 99 02/19/25 02:30 88 14 125/59 (81) 99 02/19/25 02:15 86 14 121/55 (77) 99 02/19/25 02:00 88 18 121/53 (75) 99 28 110/60 (77) 02/19/25 01:45 89 19 135/58 (83) 99 02/19/25 01:30 88 19 120/54 (76) 100 02/19/25 01:15 88 19 120/55 (76) 99 02/19/25 01:00 88 11 124/56 (78) 99 28 114/66 (82) 02/19/25 00:45 87 15 124/55 (78) 100 02/19/25 00:30 87 16 128/56 (80) 99 02/19/25 00:20 98 Nasal Cannula* 2 28 02/19/25 00:18 98.8 02/19/25 00:15 87 13 118/54 (75) 100 02/19/25 00:00 88 16 126/56 (79) 98 28 111/68 (82) 02/18/25 23:45 87 23 119/53 (75) 97 02/18/25 23:30 87 17 123/54 (77) 100 02/18/25 23:15 88 15 121/56 (77) 99 02/18/25 23:00 87 15 122/56 (78) 99 28 107/68 (81) 02/18/25 22:45 88 16 119/55 (76) 99 02/18/25 22:30 87 13 127/58 (81) 100 02/18/25 22:30 87 13 127/58 (81) 100 02/18/25 22:15 88 19 119/55 (76) 98 02/18/25 22:00 87 20 122/56 (78) 98 28 110/65 (80) 02/18/25 21:45 86 16 122/56 (78) 99 02/18/25 21:30 86 18 123/56 (78) 98 02/18/25 21:25 88 18 N/Cannula Low lpm 28 02/18/25 21:15 87 19 124/57 (79) 99 02/18/25 21:00 85 15 128/57 (80) 99 28 107/67 (80) 02/18/25 20:45 86 15 123/56 (78) 100 02/18/25 20:30 84 19 123/55 (77) 98 02/18/25 20:15 86 17 125/55 (78) 98 02/18/25 20:00 98 Nasal Cannula* 2 28 02/18/25 20:00 85 16 258/258 (258) 99 28 110/62 (78) 02/18/25 19:52 98.8 02/18/25 19:45 86 15 118/52 (74) 98 02/18/25 19:30 85 14 121/52 (75) 98 02/18/25 19:15 85 17 123/52 (75) 98 02/18/25 19:00 84 18 115/51 (72) 98 28 107/65 (79) 02/18/25 18:45 84 17 116/50 (72) 97 02/18/25 18:30 84 20 124/52 (76) 98 02/18/25 18:15 84 20 124/52 (76) 98 02/18/25 18:00 83 19 129/56 (80) 98 111/64 (80) 02/18/25 17:45 84 15 126/54 (78) 97 02/18/25 17:30 84 14 123/54 (77) 98 02/18/25 17:15 84 18 121/53 (75) 98 02/18/25 17:00 81 13 130/57 (81) 98 104/64 (77) 02/18/25 16:45 87 20 140/58 (85) 99 02/18/25 16:30 85 23 136/57 (83) 98 02/18/25 16:15 84 17 130/53 (78) 98 02/18/25 16:00 98.4 02/18/25 16:00 98.4 85 18 125/53 (77) 99 104/60 (75) 02/18/25 16:00 97 Nasal Cannula* 2 28 02/18/25 15:45 84 20 129/53 (78) 98 02/18/25 15:30 85 17 126/53 (77) 99 02/18/25 15:15 85 18 128/54 (78) 99 02/18/25 15:00 84 18 122/53 (76) 96 109/70 (83) 02/18/25 14:45 83 20 121/55 (77) 94 02/18/25 14:30 83 20 121/53 (75) 95 02/18/25 14:15 82 19 125/60 (81) 98 02/18/25 14:00 83 24 124/57 (79) 100 114/72 (86) 02/18/25 13:45 84 17 133/58 (83) 98 02/18/25 13:30 84 19 119/54 (75) 100 02/18/25 13:15 84 17 122/54 (76) 100 02/18/25 13:00 84 15 122/52 (75) 100 110/73 (85) 02/18/25 12:54 97 18 N/Cannula Low lpm 28 02/18/25 12:45 82 23 122/55 (77) 100 02/18/25 12:30 83 17 118/52 (74) 99 02/18/25 12:15 84 19 113/50 (71) 95 02/18/25 12:00 98.8 02/18/25 12:00 98.1 84 22 128/65 (86) 95 96/52 (67) 02/18/25 12:00 95 Room Air* 0 21 02/18/25 11:45 84 19 103/45 (64) 89 02/18/25 11:30 85 20 128/64 (85) 94 02/18/25 11:15 86 20 104/87 (93) 97 02/18/25 11:00 92 21 120/57 (78) 94 108/70 (83) 02/18/25 10:30 96 22 127/52 (77) 95 02/18/25 10:15 95 15 125/52 (76) 94 02/18/25 10:00 99 19 120/55 (76) 93 102/59 (73) 02/18/25 09:30 99 15 113/55 (74) 94 02/18/25 09:15 98 19 120/52 (74) 94 02/18/25 09:00 99 18 112/52 (72) 93 101/64 (76) 02/18/25 08:45 99 20 119/54 (75) 93 02/18/25 08:30 98 20 116/52 (73) 93 02/18/25 08:15 97 17 102/55 (71) 92 02/18/25 08:00 98.8 94 13 101/51 (68) 94 91/64 (73) 02/18/25 08:00 98.8 02/18/25 07:52 97 18 N/A Room Air 21 02/18/25 07:45 96 10 103/48 (66) 94 02/18/25 07:30 96 Room Air* 0 21 02/18/25 07:30 97 21 92/52 (65) 94 02/18/25 07:15 97 16 114/47 (69) 95 02/18/25 07:00 94 19 115/50 (71) 93 106/58 (74) 02/18/25 06:45 96 14 108/49 (68) 93 02/18/25 06:30 94 19 95/61 (72) 95 02/18/25 06:15 99 20 123/53 (76) 94 02/18/25 06:00 100 18 118/52 (74) 93 21 111/64 (80) 02/18/25 05:45 101 16 109/57 (74) 02/18/25 05:30 96 20 87/75 (79) 96 02/18/25 05:15 97 20 123/52 (75) 97 02/18/25 05:00 95 20 105/51 (69) 97 24 105/62 (76) 02/18/25 04:45 96 20 100/50 (67) 98 02/18/25 04:30 96 20 110/53 (72) 98 02/18/25 04:24 98.8 02/18/25 04:15 94 20 108/52 (70) 95 28 02/18/25 04:01 96 Nasal Cannula* 2 28 02/18/25 04:00 77 19 115/56 (75) 96 110/67 (81) 02/18/25 03:45 96 24 98/49 (65) 97 02/18/25 03:30 96 36 112/56 (74) 95 02/18/25 03:15 90 24 103/51 (68) 97 02/18/25 03:00 85 19 111/54 (73) 97 28 107/67 (80) 02/18/25 02:45 96 28 112/56 (74) 96 02/18/25 02:30 84 18 108/53 (71) 97 02/18/25 02:15 94 16 112/55 (74) 97 02/18/25 02:00 94 17 101/52 (68) 98 28 109/62 (78) 02/18/25 01:45 94 20 112/57 (75) 95 02/18/25 01:30 83 20 113/56 (75) 98 02/18/25 01:15 94 21 108/54 (72) 97 02/18/25 01:00 79 25 109/54 (72) 97 28 115/68 (84) 02/18/25 00:45 84 37 106/53 (70) 97 02/18/25 00:30 84 22 97/49 (65) 97 02/18/25 00:15 89 28 102/50 (67) 97 02/18/25 00:05 98.6 02/18/25 00:03 98 Nasal Cannula* 3 32 02/18/25 00:00 94 26 100/50 (67) 98 28 102/60 (74) 02/17/25 23:45 84 20 105/52 (69) 98 02/17/25 23:30 95 30 98/49 (65) 98 02/17/25 23:15 95 24 111/55 (73) 98 02/17/25 23:00 94 22 107/54 (71) 97 28 115/68 (84) 02/17/25 22:45 95 20 96/50 (65) 97 02/17/25 22:30 96 20 101/50 (67) 98 02/17/25 22:15 84 26 112/58 (76) 95 02/17/25 22:00 90 27 108/54 (72) 99 32 106/64 (78) 02/17/25 21:45 96 25 109/54 (72) 99 02/17/25 21:30 93 18 106/52 (70) 98 02/17/25 21:15 95 20 117/56 (76) 99 02/17/25 21:00 97 18 117/55 (75) 98 32 111/69 (83) 02/17/25 20:45 92 22 116/53 (74) 98 02/17/25 20:30 97 19 120/54 (76) 97 02/17/25 20:15 95 20 121/58 (79) 99 02/17/25 20:00 96 20 99 32 107/79 (88) 02/17/25 20:00 98 Nasal Cannula* 3 32 02/17/25 19:45 97 17 130/62 (84) 99 02/17/25 19:30 95 39 116/54 (74) 99 02/17/25 19:15 96 24 118/56 (76) 99 02/17/25 19:00 98.4 96 25 124/59 (80) 100 107/71 (83) 02/17/25 18:45 97 21 131/62 (85) 100 02/17/25 18:45 96 14 N/Cannula Low lpm 4.0 36 02/17/25 18:30 95 13 130/59 (82) 99 02/17/25 18:15 96 41 126/58 (80) 100 02/17/25 17:30 97 21 126/66 (86) 100 02/17/25 17:15 96 21 124/60 (81) 100 02/17/25 17:00 97 17 111/52 (71) 100 02/17/25 17:00 Nasal Cannula* 4 36 02/17/25 16:45 97 18 126/59 (81) 99 119/72 (88) 02/17/25 16:30 97 24 137/63 (87) 99 02/17/25 16:15 100 22 113/56 (75) 98 02/17/25 16:00 103 21 121/54 (76) 99 02/17/25 16:00 98 Nasal Cannula* 4 36 02/17/25 16:00 99.0 02/17/25 15:45 97 18 108/50 (69) 98 109/68 (82) 02/17/25 15:30 97 24 94/45 (61) 100 02/17/25 15:15 97 22 103/49 (67) 100 02/17/25 15:00 98 23 96/45 (62) 100 02/17/25 14:45 98 19 105/49 (67) 100 109/61 (77) 02/17/25 14:30 97 21 109/50 (69) 100 02/17/25 14:15 98 18 113/52 (72) 99 02/17/25 14:00 99 22 112/52 (72) 99 02/17/25 13:45 98 22 118/57 (77) 99 117/67 (84) 02/17/25 13:30 98 16 103/50 (67) 99 02/17/25 13:15 97 25 111/58 (75) 99 02/17/25 13:00 97 16 109/52 (71) 97 02/17/25 12:45 99 19 115/57 (76) 99 120/65 (83) 02/17/25 12:30 98 19 124/58 (80) 100 02/17/25 12:15 100 19 122/55 (77) 100 General: Resting comfortably, no acute distress, visiting with family. HEENT: Atraumatic. Hearing is intact. No facial asymmetry, nasal discharge, icterus or lid lag. Cardiovascular: Rhythm and rate regular. No murmur. No edema. Respiratory: Lungs clear to the bases. No retractions, wheezes or rhonchi. Gastrointestinal: Benign, soft, nontender, nondistended. Extremities: No amputations. Range of motion is grossly normal. Neurology/Psychiatry: No tremors. Speech is clear. Alert and oriented x 3. Cooperative and pleasant. LABORATORY DATA: [ Laboratory Tests Test 02/18/25 16:18 02/18/25 20:01 02/18/25 20:05 02/18/25 23:34 Whole Blood Glucose 165 MG/DL (70-110) H Blood Gas Specimen Type Arterial Arterial Arterial Blood pH 7.500 (7.350-7.450) 7.499 (7.350-7.450) Arterial Blood Partial Pressure CO2 36 mmHg (35-48) 33 mmHg (35-48) L Arterial Blood Partial Pressure O2 91.1 mmHg (83.0-108.0) 105.6 mmHg (83.0-108.0) Arterial Blood HCO3 27.3 mmol/L (21.0-28.0) 24.9 mmol/L (21.0-28.0) Arterial Blood Oxygen Saturation 96.7 % (94.0-98.0) 97.2 % (94.0-98.0) Arterial Blood Base Excess 4.0 mmol/L (-2.0-3.0) H 1.9 mmol/L (-2.0-3.0) Hemoglobin (Blood Gas) 9.3 g/dL (13.5-17.5) L 9.3 g/dL (13.5-17.5) L Sodium (Blood Gas) 134 MMOL/L (136-145) L 132 MMOL/L (136-145) L Bedside Potassium (Blood Gas) 3.3 MMOL/L (3.4-4.5) L 3.4 MMOL/L (3.4-4.5) Bedside Chloride (Blood Gas) 97 MMOL/L (98-107) L 98 MMOL/L (98-107) Bedside Glucose (Blood Gas) 172 MG/DL (65-95) H 163 MG/DL (65-95) H Bedside Ionized Calcium (Blood Gas) 1.06 MMOL/L (1.15-1.33) L 1.07 MMOL/L (1.15-1.33) L Bedside Lactic Acid (Blood Gas) 1.32 MMOL/L (0.36-0.75) H 1.11 MMOL/L (0.36-0.75) H Blood Gas Temperature 37.0 CELSIUS (35.5-37.0) 37.0 CELSIUS (35.5-37.0) Blood Gas Flow-by 2.00 L/min (0.00-15.00) 2.00 L/min (0.00-15.00) Blood Gas Vent Mode NC 2L (ROOM AIR) NC 2L (ROOM AIR) FiO2 28.0 % 28.0 % Blood Gas Specimen Comment AL,RN JIAN AL,RN JIAN Magnesium Level 1.90 mg/dL (1.80-2.40) Test 02/19/25 04:18 02/19/25 04:23 02/19/25 11:37 Blood Gas Specimen Type Arterial Arterial Blood pH 7.483 (7.350-7.450) Arterial Blood Partial Pressure CO2 34 mmHg (35-48) L Arterial Blood Partial Pressure O2 96.6 mmHg (83.0-108.0) Arterial Blood HCO3 24.6 mmol/L (21.0-28.0) Arterial Blood Oxygen Saturation 97.0 % (94.0-98.0) Arterial Blood Base Excess 1.3 mmol/L (-2.0-3.0) Hemoglobin (Blood Gas) 9.3 g/dL (13.5-17.5) L Sodium (Blood Gas) 133 MMOL/L (136-145) L Bedside Potassium (Blood Gas) 3.8 MMOL/L (3.4-4.5) Bedside Chloride (Blood Gas) 97 MMOL/L (98-107) L Bedside Glucose (Blood Gas) 172 MG/DL (65-95) H Bedside Ionized Calcium (Blood Gas) 1.12 MMOL/L (1.15-1.33) L Bedside Lactic Acid (Blood Gas) 1.17 MMOL/L (0.36-0.75) H Blood Gas Temperature 37.0 CELSIUS (35.5-37.0) Blood Gas Flow-by 2.00 L/min (0.00-15.00) Blood Gas Vent Mode NC 2L (ROOM AIR) FiO2 28.0 % Blood Gas Specimen Comment ADI NAVARRO White Blood Count 15.9 K/uL (4.8-10.8) H Red Blood Count 2.93 MIL/uL (4.50-6.20) L Hemoglobin 8.7 g/dL (14.0-18.0) L Hematocrit 25.2 % (42-54) L Mean Corpuscular Volume 86.0 fL (79-99) Mean Corpuscular Hemoglobin 29.7 pg (27.0-33.0) Mean Corpuscular Hemoglobin Concent 34.5 g/dL (32.0-36.0) Red Cell Distribution Width 13.5 % (11.0-15.5) Platelet Count 179 K/uL (130-400) Mean Platelet Volume 10.9 fL (7.5-10.5) H Nucleated Red Blood Cells 0.3 % (0.0-0.19) H Sodium Level 132 mmol/L (136-145) L Potassium Level 3.6 mmol/L (3.5-5.1) Chloride Level 94 mmol/L (101-111) L Carbon Dioxide Level 25 mmol/L (21-32) Blood Urea Nitrogen 20 mg/dL (7-18) H Creatinine 0.8 mg/dL (0.5-1.3) Glomerular Filtration Rate Calc 92 mL/min (>90) Random Glucose 163 mg/dL (70-105) H Total Calcium 8.1 mg/dL (8.5-10.1) L Magnesium Level 1.70 mg/dL (1.80-2.40) L Whole Blood Glucose 182 MG/DL (70-110) H ] RADIOLOGY: [] PLAN: [Continue care Lasix drip, Impella. Not a candidate for beta-estela yet due to marginal blood pressures.] JESSICA GARCIA PAC Feb 19, 2025 12:08
--- NOTE | 2025-02-19 13:10 | HMCSR ---
APPROVED REPORT EXAM: Limited Two-dimensional echocardiogram with color Doppler. INDICATION ICD: Possible removal of impella device 2D Dimensions IVSd 1.2 (0.7-1.1cm) LVEF(%) 31.0 (>50%) LVDd 5.3 (3.8-5.6cm) FS(%) 15 % PWd 1.2 (0.7-1.1cm) Ao Root(2D) 3.7 (2.0-3.7cm) IVSs 1.0 cm LVDs 4.5 (2.5-4.0cm) PWs 1.4 cm Left Ventricle Left ventricular cavity size is normal. Impella device measuring 6.5cm into the left ventricle. Anterior, anteroseptal wall is thin and akinetic. Anterolateral wall is hypokinetic. There is borderline increase in left ventricular wall thickness. LVEF is 25-30%. Right Ventricle The right ventricular systolic function is normal. Mitral Valve The mitral valve is normal in structure. Mitral valve opens well. Pericardium No pericardial effusion. Other Information Quality : Limited/Follow-up Rhythm : NSR Conclusion LVEF is 25-30%. Anterior, anteroseptal wall is thin and akinetic. Anterolateral wall is hypokinetic. No pericardial effusion. Impella device measuring 6.5cm into the left ventricle.
--- NOTE | 2025-02-19 13:43 | PN ---
[facility] PROGRESS NOTE Date of Service: Feb 19, 2025 Time of Service: 13:23 HISTORY OF PRESENT ILLNESS: This is a 74-year-old male,a Religious by gnosticism whith past medical history of diabetes, hyperlipidemia and LA/coronary artery disease with cardiac stent who presented to the Ed for complaints of midsternal chest pain that is non radiating associated with diaphoresis and this happened when patient was laying down in bed aroun 11:50 pm last night and decided to come to the ED for evaluation.Patient reports pain was persistent.As per patient he had a history of heart attack before and underwent a stent placement.Patient reports the only medication he is taking is Metformin.Patient states he is supposed to be on Aspirin but has stopped taking it.Patient reports he occasionally drinks beer and last drink was yesterday ,had 2 beers he said. Seen and examined patient in the ER awake,alert and coherent,appears comfortable.Patient denies fever,chills,cough,nausea,vomiting,palpitation and shortness of breath. Latest vital signs temperature 98.2, heart rate 75, blood pressure 124/70 saturation 97% on room air. Labs: CBC unremarkable. Chloride 99, BUN 21, random glucose 469 to 439 to 327. Troponin from -. ECG result revealed revealed sinus rhythm heart rate 85 with atrial premature complex anterolateral infarct age indeterminate. Second EKG result revealed sinus rhythm heart rate 73 with left anterior fascicular block. Probable anterolateral infarct age indeterminate. Abnormal T consider ischemia lateral leads.. Chest x-ray result revealed no acute cardiopulmonary process is evident. While in the ER patient received 1500 mL NS bolus, insulin 5 units IV, aspirin 325 mg p.o. and patient was started on heparin drip per ACS protocol. SUBJECTIVE: 02/10/25: Patient was seen and evaluated in ED9. Patient was alert, awake and orientedX3. Patient reports that he doesn't have any chest pain today. Patient reports occasional shortness of breath during nights. Patient denies any shortness of breath, nausea, vomiting, palpitations and lightheadedness. Patient denies any abdominal pain, burning urination. Patient mentions that he only takes metformin 3-4 times per week and has stopped taking aspirin because it wasn't reconciled. Troponin from -. 2D ECHO was done, pending results. Patient is currently on Heparin drip 02/11/25: Patient was evaluated at the bedside this morning. No overnight event. He is AAO x3. patient reported that he does not have chest pain or shortness of breath. He is hemodynamically stable. The labs remarkable for potassium 3.3, magnesium 1.6, HbA1c 13.9, troponin [id number]. Left heart catheterization revealed severe triple-vessel disease. Echocardiogram revealed 25% ejection fraction with segmental akinesis. CT surgery was consulted who recommended CABG with Impella left ventricle assist. Family to decide about the procedure. He is currently on heparin drip, aspirin. Endocrinology on board. Rest of the plan as discussed below. 02/12/25: Patient was evaluated at the bedside this morning. No overnight event. He is AAO x3. patient reported that he does not have chest pain or shortness of breath. He is hemodynamically stable. Cardiology is on board and Dr. Blanton have suggested low-dose beta estela like metoprolol tartrate 12.5 mg b.i.d. for his heart failure. Dr Fried still recommends CABG with 5.5 Impella LVAD and the patient agrees to it. We will continue Entresto, Aldactone, Jardiance, aspirin, Lasix as per CT surgeon recommendations. Today his potassium is 3.1 and we would like to be above 4 for CABG patients. So we will replace potassium 02/13/25: Patient was seen and evaluated in room 201. Patient reports feeling better. patient denies any chest pain, shortness of breath. He is continuing on Entresto, Aldactone, Jardiance, aspirin, Lasix as per CT surgeon recommendations.Patients Potassium today is 3.7, will continue replacing potassium. Patients was present along with the patient, she has a few question about the CABG procedure which she wanted to ask Dr. Pacheco. 02/14/25. Patient was undergoing CABG procedure today in the morning. 02/15/25: Patient was seen and evaluated in room 213. Patient status post CABG day 1. Patient denies any fever, chills, shortness of breath. Patient complaints of pain along the incision. Patient is on IABP and Impella support. patient is on Vasopressin and Norepinephrine drip. Entresto, Aldactone, Jardiance were discontinued by Dr. Pacheco. CT surgery are on the case and will follow their recommendations. 02/16/25: Patient was seen and evaluated in room 213. Patient status post CABG day 2. patient was asleep when we went bedside. Spoke with the nurse regarding overnights and she mentioned that patient was a bit confused in the night but later improved with sleep. Patient is continuing on Epinephrine drip. Patient was weaned off IABP and is currently only on Impella. Patient was started on Vancomycin and cefepime due to elevated WBC levels and findings suggestive of pneumonia on chest x-ray 02/17/25: Patient was seen and evaluated in room 213. Patient status post CABG day 2. patient was asleep when we went bedside. Spoke with the nurse regarding overnights and he mentioned that patient was started on lasix protocol. Patient is continuing on Epinephrine drip and Impella. Critical care are on the case and will follow their recommendations. 02/18/25: Patient was seen and examined at bedside. He is status post CABG day 3. He continues on Lasix drip 2.5, With Impella P3 support and epinephrine drip. His total output in the past 24 hours has been optimal, 4740 versus 2165 input. No acute events overnight. We will follow CTS recommendations regarding further weaning off Impella. 02/19/25: Patient was seen and evaluated in room 210. He is status post CABG day 3. He continues on Lasix drip 2.5, With Impella P3 support and epinephrine drip. His totl output in the past 24 hours has been 2905 versus 4072. No acute overnight. Patient is scheduled for possible impella removal tomorrow. REVIEW OF SYSTEMS CONSTITUTIONAL: Denies fevers, chills, or night sweats. No unintentional weight loss reported. NEUROLOGICAL: Denies headache, amaurosis fugax, motor weakness, sensory deficit, vertigo/spinning sensation, gait abnormalities, or tremors. ENT: No hearing loss, otalgia, otorrhea, rhinitis, rhinorrhea, hoarseness, or sore throat. CARDIOVASCULAR: Denies chest pain, dyspnea on exertion, orthopnea, paroxysmal nocturnal dyspnea, palpitations, life-threatening arrhythmias, claudication. PULMONARY: Denies any cough, phlegm/sputum, hemoptysis, pleuritic chest pain. GASTROINTESTINAL: Denies any type of dysphagia to either liquids or solids. Denies nausea, vomiting, pyrosis, early satiety, abdominal pain, diarrhea, constipation, or changes in stool consistency or caliber. Denies coffee-ground emesis, hematemesis, hematochezia, or melanotic stools. GENITOURINARY: Denies frequency, urgency, nocturia, hematuria or incontinence (Storage/Irritative symptoms.) Low urinary stream, straining to void, urinary intermittency or hesitancy, splitting of the voiding stream, terminal dribbling. PHYSICAL EXAM GENERAL APPEARANCE: The patient is awake, alert, and oriented, in no acute cardiopulmonary distress. NEUROLOGICAL: Cranial nerves II-XII grossly intact. Motor is 5/5 in bilateral upper and lower extremities proximal to distal. No sensory deficits. HEENT: Face is symmetric. Pupils are equal and reactive. Extraocular movements are intact. NECK: Supple. No JVD. No thyromegaly. No submental, submandibular, pre- /postauricular, occipital or supraclavicular lymphadenopathy. CHEST: Normal chest expansion. No Telemetry. LUNGS: Absence of any rales, rhonchi or any wheezing. CARDIOVASCULAR: Regular. S1 and S2 normal. No appreciable rubs, murmurs or gallops. ABDOMEN: Soft, nontender, and nondistended. There is no rebound, voluntary guarding, or rigidity. : Deferred. No De Jesus. EXTREMITIES: Non-edematous and not cyanotic. No clubbing. Good capillary refill. SKIN: No skin breakdown. Vital Signs (last 8hr) Date Time Temp Pulse Resp B/P (MAP) Pulse Ox O2 Delivery O2 Flow Rate FiO2 02/19/25 12:00 98.6 02/19/25 08:00 98.4 02/19/25 06:20 86 19 N/A Room Air 21 02/19/25 06:15 90 15 107/49 (68) 93 02/19/25 06:00 95 21 94 28 92/57 (69) 02/19/25 05:30 89 17 139/58 (85) 100 LABS: Laboratory: Test 02/19/25 11:37 02/19/25 04:23 02/19/25 04:18 02/18/25 04:11 Range/Units Whole Blood Glucose 182 H 70-110 MG/DL White Blood Count 15.9 H 4.8-10.8 K/uL Red Blood Count 2.93 L 4.50-6.20 MIL/uL Hemoglobin 8.7 L 14.0-18.0 g/dL Hematocrit 25.2 L 42-54 % Mean Corpuscular Volume 86.0 79-99 fL Mean Corpuscular Hemoglobin 29.7 27.0-33.0 pg Mean Corpuscular Hemoglobin Concent 34.5 32.0-36.0 g/dL Red Cell Distribution Width 13.5 11.0-15.5 % Platelet Count 179 130-400 K/uL Mean Platelet Volume 10.9 H 7.5-10.5 fL Nucleated Red Blood Cells 0.3 H 0.0-0.19 % Sodium Level 132 L 136-145 mmol/L Potassium Level 3.6 3.5-5.1 mmol/L Chloride Level 94 L 101-111 mmol/L Carbon Dioxide Level 25 21-32 mmol/L Blood Urea Nitrogen 20 H 7-18 mg/dL Creatinine 0.8 0.5-1.3 mg/dL Glomerular Filtration Rate Calc 92 >90 mL/min Random Glucose 163 H 70-105 mg/dL Total Calcium 8.1 L 8.5-10.1 mg/dL Magnesium Level 1.70 L 1.80-2.40 mg/dL Blood Gas Specimen Type Arterial Arterial Blood pH 7.483 H 7.350-7.450 Arterial Blood Partial Pressure CO2 34 L 35-48 mmHg Arterial Blood Partial Pressure O2 96.6 83.0-108.0 mmHg Arterial Blood HCO3 24.6 21.0-28.0 mmol/L Arterial Blood Oxygen Saturation 97.0 94.0-98.0 % Arterial Blood Base Excess 1.3 -2.0-3.0 mmol/L Hemoglobin (Blood Gas) 9.3 L 13.5-17.5 g/dL Sodium (Blood Gas) 133 L 136-145 MMOL/L Bedside Potassium (Blood Gas) 3.8 3.4-4.5 MMOL/L Bedside Chloride (Blood Gas) 97 L 98-107 MMOL/L Bedside Glucose (Blood Gas) 172 H 65-95 MG/DL Bedside Ionized Calcium (Blood Gas) 1.12 L 1.15-1.33 MMOL/L Bedside Lactic Acid (Blood Gas) 1.17 H 0.36-0.75 MMOL/L Blood Gas Temperature 37.0 35.5-37.0 CELSIUS Blood Gas Flow-by 2.00 0.00-15.00 L/min Blood Gas Vent Mode NC 2L ROOM AIR FiO2 28.0 % Blood Gas Specimen Comment MELANIE, ADI JIAN Immature Granulocyte % (Auto) 1.5 H 0-1 % Neutrophils (%) (Auto) 74.2 40.0-77.0 % Lymphocytes (%) (Auto) 12.6 L 21.0-51.0 % Monocytes (%) (Auto) 11.0 3.0-13.0 % Eosinophils (%) (Auto) 0.4 0.0-8.0 % Basophils (%) (Auto) 0.3 0.0-5.0 % Neutrophils # (Auto) 11.6 H 1.8-7.7 K/uL Lymphocytes # (Auto) 2.0 1.0-4.8 K/uL Monocytes # (Auto) 1.7 H 0.1-1.0 K/uL Eosinophils # (Auto) 0.06 0.00-0.70 K/uL Basophils # (Auto) 0.04 0.00-0.20 K/uL Absolute Immature Granulocyte (auto 0.24 0-1 K/uL Current Medications Medications (Trade) Dose Ordered Sig/Carol Route PRN Reason Start Time Stop Time Status Last Admin Dose Admin Acetaminophen (TYLenol 325MG TAB) 650 mg Q4H PRN PO MILD PAIN (1-3) 02/10/25 05:00 02/14/25 10:05 DC Acetaminophen (TYLenol 325MG TAB) 650 mg Q4H PRN PO Temp >38.3C(AFTER EXTUBATION) 02/14/25 10:00 03/16/25 09:59 Acetaminophen (TYLenol 325MG TAB) 650 mg Q6H PRN PO TEMPERATURE GREATER THAN 101.5 02/10/25 05:00 02/14/25 10:17 DC 02/12/25 17:13 650 MG Acetaminophen (TYLenol 325MG TAB) 650 mg Q6H PRN PO MILD PAIN (1-3) 02/14/25 10:00 03/16/25 09:59 Acetaminophen (TYLenol 650MG SUPPOSITORY) 650 mg Q4H PRN RC Temp >38.3C WHILE INTUBATED 02/14/25 10:00 03/16/25 09:59 Acetaminophen (acetaMINOPHEN 1,000MG/100ML) 1,000 mg Q6H6 IV 02/14/25 14:00 02/15/25 13:59 DC 02/15/25 12:14 1,000 MG Albumin Human 250 ml @ 0 mls/hr AD IV 02/14/25 15:30 02/18/25 10:40 DC 02/18/25 10:27 250 MLS/HR Albumin Human 250 ml @ 0 mls/hr AD IV 02/18/25 10:30 02/23/25 10:29 Albumin Human 250 ml @ 0 mls/hr AD PRN IV IF HEMODYNAMICALLY UNSTABLE 02/14/25 10:00 02/14/25 14:42 DC 02/14/25 14:42 500 MLS/HR Aminocaproic Acid 20726 mg/Sodium Chloride 310 ml @ 25 mls/hr AD IV 02/14/25 10:00 02/14/25 10:19 DC Aminocaproic Acid 05745 mg/Sodium Chloride 480 ml @ 0 mls/hr AD PRN IV BLEEDING CONTROL 02/14/25 06:30 03/16/25 06:29 Aminocaproic Acid 16345 mg/Sodium Chloride 480 ml @ 0 mls/hr AD PRN IV BLEEDING CONTROL 02/14/25 07:00 02/14/25 06:51 DC Aspirin (Aspirin 325mg Tab) 325 mg ONCE PO 02/10/25 14:30 02/10/25 17:22 DC 02/10/25 14:32 325 MG Aspirin (Aspirin 81mg Ec Tab) 81 mg DAILY PO 02/10/25 09:00 03/12/25 08:59 02/19/25 08:13 81 MG Atorvastatin Calcium (LIPItor 40MG) 40 mg HS PO 02/14/25 21:00 03/16/25 20:59 02/18/25 20:12 40 MG Calcium Gluconate 1 gm/Sodium Chloride 60 ml @ 200 mls/hr AD PRN IV HYPOCALCEMIA 02/14/25 10:00 03/16/25 09:59 02/19/25 04:28 200 MLS/HR Cefazolin Sodium (Ancef) 2 gm ONCALL IVP 02/13/25 20:00 02/14/25 18:51 DC 02/14/25 08:50 2 GM Cefazolin Sodium (Ancef) 2 gm Q8H IVPB 02/14/25 15:00 02/15/25 07:01 DC 02/15/25 06:25 2 GM Cefepime HCl (MAXipime 1 GM vial) 1 gm Q12H IVPB 02/16/25 10:30 02/26/25 10:29 02/19/25 11:20 1 GM Clopidogrel Bisulfate (plaVIX 300MG TAB) 600 mg ONCE PO 02/10/25 14:00 02/10/25 17:22 DC 02/10/25 14:19 600 MG Clopidogrel Bisulfate (plaVIX 75MG) 75 mg DAILY PO 02/11/25 09:00 02/11/25 07:28 DC Dexmedetomidine/ Sodium Chloride (PRECEdex 400MCG/ 100ML-NS) 400 mcg PROTOCOL IV 02/14/25 10:00 02/15/25 09:59 DC Dextrose (D50w) 50 ml AD PRN IV HYPOGLYCEMIA PROTOCOL 02/10/25 05:00 02/14/25 10:17 DC Dextrose (D50w) 50 ml AD PRN IV HYPOGLYCEMIA PROTOCOL 02/14/25 10:00 03/16/25 09:59 Docusate Sodium (COLace 100MG CAP) 100 mg BID PO 02/14/25 21:00 03/16/25 20:59 02/18/25 08:13 100 MG Empaglifozin (Jardiance 10mg) 10 mg DAILY PO 02/10/25 14:30 02/14/25 09:59 DC 02/13/25 10:52 10 MG Enoxaparin Sodium (Lovenox) 30 mg DAILY SQ 02/17/25 09:00 03/19/25 08:59 02/19/25 08:13 30 MG Epinephrine HCl 10 mg/Sodium Chloride 250 ml @ 0 mls/hr AD PRN IV TITRATE 02/14/25 06:30 03/16/25 06:29 02/16/25 00:51 4.32 MLS/HR Epinephrine HCl 10 mg/Sodium Chloride 250 ml @ 0 mls/hr AD PRN IV TITRATE 02/14/25 07:00 02/14/25 06:51 DC Epinephrine HCl 10 mg/Sodium Chloride 250 ml @ 0 mls/hr AD PRN IV POST-OP CARDIOVASCULAR ORDERS 02/14/25 10:00 02/14/25 10:14 DC Famotidine (Pepcid 20mg Vial) 20 mg BID IV 02/14/25 21:00 02/16/25 07:58 DC 02/15/25 20:15 20 MG Famotidine (Pepcid 20mg Tab) 20 mg BID PO 02/16/25 09:00 02/17/25 07:09 DC 02/16/25 20:03 20 MG Famotidine (Pepcid 20mg Tab) 20 mg DAILY PO 02/10/25 09:00 02/14/25 09:59 DC 02/13/25 10:53 20 MG Famotidine (Pepcid 20mg Tab) 20 mg DAILY PO 02/17/25 09:00 03/18/25 08:59 02/19/25 08:13 20 MG Furosemide (LASix 20MG TAB) 20 mg DAILY PO 02/11/25 09:00 02/14/25 09:59 DC 02/13/25 10:52 20 MG Furosemide (LASix 20MG TAB) 20 mg Q12H PO 02/16/25 09:00 02/16/25 10:21 DC 02/16/25 08:19 20 MG Furosemide (LASix 20MG VIAL) 20 mg ONCE IV 02/10/25 17:00 02/10/25 21:00 DC 02/10/25 17:00 20 MG Furosemide (LASix 20MG VIAL) 20 mg ONCE IV 02/11/25 09:00 02/11/25 07:43 DC Furosemide (LASix 20MG VIAL) 20 mg Q12H IV 02/15/25 09:00 02/16/25 08:59 DC 02/15/25 20:16 20 MG Furosemide 100 mg/ Sodium Chloride 100 ml @ 0 mls/hr PROTOCOL IV 02/16/25 10:30 03/18/25 10:29 02/19/25 11:35 2.5 MLS/HR Glucagon (Glucagon 1mg Kit) 1 mg AD PRN IM HYPOGLYCEMIA PROTOCOL 02/10/25 05:00 02/14/25 10:17 DC Glucagon (Glucagon 1mg Kit) 1 mg AD PRN IM HYPOGLYCEMIA PROTOCOL 02/14/25 10:00 03/16/25 09:59 Heparin Sodium (Porcine) (HEParin 5,000 UNIT VIAL) *calculation based on ACTUAL B... AD PRN IV HEPARIN PROTOCOL 02/12/25 21:00 02/14/25 09:59 DC 02/12/25 20:16 4,000 UNIT Heparin Sodium/ Dextrose 250 ml @ 0 mls/hr PROTOCOL IV 02/10/25 03:00 02/10/25 17:22 DC 02/10/25 03:00 16.2 MLS/HR Heparin Sodium/ Dextrose 250 ml @ 0 mls/hr Q6H IV 02/11/25 06:30 02/14/25 09:59 DC 02/13/25 13:01 9 MLS/HR Home Med (Home Medication) (Brimonidine-Timolol 0.2%/0.5% EYE DROPS) DAILY OP 02/18/25 09:00 03/20/25 08:59 02/19/25 08:14 1 EACH Insulin Glargine (LANtus 100 UNITS/ML 10 ML VIAL) 12 units DAILY08 SQ 02/13/25 08:00 02/14/25 09:59 DC 02/13/25 10:51 12 UNITS Insulin Glargine (LANtus 100 UNITS/ML 10 ML VIAL) 15 units DAILY08 SQ 02/11/25 08:00 02/13/25 05:24 DC 02/12/25 08:54 15 UNITS Insulin Human Regular (humuLIN R 100 UNIT/ML 3ML) 3 unit TIDAC SQ 02/12/25 07:30 02/14/25 09:59 DC 02/12/25 16:31 3 UNIT Insulin Human Regular (humuLIN R 100 UNIT/ML 3ML) INSULIN SLIDING SCAL... ACHS SQ 02/16/25 11:30 03/18/25 11:29 02/19/25 11:41 2 UNIT Insulin Human Regular (humuLIN R 100 UNIT/ML 3ML) INSULIN SLIDING SCAL... Q4H SQ 02/10/25 05:00 02/10/25 11:10 DC 02/10/25 09:15 6 UNIT Insulin Human Regular (humuLIN R 100 UNIT/ML 3ML) INSULIN SLIDING SCAL... Q6H6 SQ 02/10/25 12:00 02/14/25 09:59 DC 02/11/25 17:29 2 UNIT Insulin Human Regular 100 unit/ Sodium Chloride 100 ml @ 0 mls/hr AD IV 02/14/25 10:00 02/16/25 09:59 DC 02/15/25 06:30 3 MLS/HR Lactulose (Constulose 20gm/ 30ml Udcup) 20 gm BID PRN PO CONSTIPATION 02/14/25 10:00 03/16/25 09:59 Latanoprost (Xalatan) 1 DROP FOR EACH EYE HS OP 02/17/25 21:00 03/19/25 20:59 Magnesium Hydroxide (Milk Of Magnesium 30ml) 30 ml DAILY PRN PO CONSTIPATION 02/14/25 10:00 03/16/25 09:59 Magnesium Sulfate 50 ml @ 12.5 mls/hr AD PRN IV MAG LEVEL LESS THAN 2.0 02/14/25 10:00 03/16/25 09:59 02/19/25 04:49 12.5 MLS/HR Magnesium Sulfate 50 ml @ 0 mls/hr PROTOCOL PRN IV OTHER [SEE ORDER COMMENTS] 02/10/25 05:00 02/14/25 10:17 DC 02/12/25 07:13 25 MLS/HR Metoprolol Tartrate (loprESSOR) 12.5 mg BID PO 02/12/25 09:00 02/14/25 09:59 DC 02/14/25 06:44 12.5 MG Metoprolol Tartrate (loprESSOR) 12.5 mg BID PO 02/16/25 09:00 03/18/25 08:59 Morphine Sulfate (morPHINE 2MG SYG) 0.5 mg Q2H PRN IV MODERATE PAIN (4-6) IF NPO 02/14/25 10:00 02/15/25 09:59 DC Morphine Sulfate (morPHINE 2MG SYG) 1 mg Q2H PRN IV SEVERE PAIN (7-10) IF NPO 02/14/25 10:30 02/21/25 10:29 02/14/25 14:23 1 MG Nitroglycerin (Nitrostat) 0.4 mg PROTOCOL PRN SL CHEST PAIN 02/10/25 05:00 02/14/25 09:59 DC Nitroglycerin/ Dextrose 0 ml @ 0 mls/hr AD IV 02/14/25 10:00 02/17/25 09:59 DC Norepinephrine Bitartrate 250 ml @ 0 mls/hr AD PRN IV TITRATE 02/14/25 06:30 03/16/25 06:29 02/17/25 01:06 1.9 MLS/HR Norepinephrine Bitartrate 250 ml @ 0 mls/hr AD PRN IV TITRATE 02/14/25 07:00 02/14/25 06:51 DC Norepinephrine Bitartrate 8 mg/ Dextrose 250 ml @ 0 mls/hr AD PRN IV POST-OP CARDIOVASCULAR ORDERS 02/14/25 10:00 02/14/25 10:14 DC Ondansetron HCl (zoFRAN 4MG INJ) 4 mg Q6H PRN IV NAUSEA/VOMITING 02/10/25 05:00 02/14/25 10:17 DC Ondansetron HCl (zoFRAN 4MG INJ) 4 mg Q6H PRN IV NAUSEA/VOMITING 02/14/25 10:00 03/16/25 09:59 Pharmacy Profile Note (Pharmacy Communication) 1 each ONCE MISC 02/14/25 18:00 02/14/25 18:27 DC Potassium Phosphate 250 ml @ 42 mls/hr AD PRN IV LOW PHOS LEVEL 02/14/25 10:00 03/16/25 09:59 Potassium Chloride 100 ml @ 100 mls/hr AD PRN IV POTASSIUM PROTOCOL 02/10/25 05:00 02/15/25 06:27 DC 02/15/25 05:43 100 MLS/HR Potassium Chloride 100 ml @ 100 mls/hr AD PRN IV HYPOKALEMIA 02/14/25 10:00 03/16/25 09:59 02/19/25 04:28 100 MLS/HR Potassium Chloride (K-Dur/Klor-Con 20meq) 20 meq AD PRN PO POTASSIUM PROTOCOL 02/10/25 05:00 03/12/25 04:59 02/18/25 20:18 20 MEQ Potassium Chloride (K-Dur/Klor-Con 20meq) 20 meq BID PO 02/19/25 10:30 03/21/25 10:29 02/19/25 11:21 20 MEQ Potassium Chloride (KCl 10% Elixir 20meq/15ml) 20 meq AD PRN PO POTASSIUM PROTOCOL 02/10/25 05:00 03/12/25 04:59 02/17/25 05:52 20 MEQ Propofol 100 ml @ 0 mls/hr AD PRN IV SEDATION 02/14/25 10:00 02/18/25 09:59 DC Sacubitril/ Valsartan (Entresto 24 Mg-26 Mg Tablet) 0.5 each BID PO 02/10/25 21:00 02/14/25 09:59 DC 02/13/25 21:11 0.5 EACH Sodium Bicarbonate 25 meq/Dextrose 1,025 ml @ 0 mls/hr Q0M IV 02/14/25 18:00 03/16/25 17:59 02/18/25 13:03 9.9 MLS/HR Sodium Bicarbonate (Sodium Bicarb 50meq 50ml Vial) 50 meq AD PRN IV OTHER[SEE DOSING INSTRUCTIONS] 02/14/25 10:00 02/17/25 09:59 DC 02/16/25 15:25 50 MEQ Sodium Chloride 500 ml @ 0 mls/hr AD IV 02/14/25 10:00 03/16/25 09:59 Sodium Chloride 1,000 ml @ 10 mls/hr ONCE IV 02/14/25 10:00 02/15/25 09:59 DC Sodium Chloride 1,000 ml @ 100 mls/hr Q10H IV 02/10/25 05:00 02/10/25 17:22 DC 02/10/25 14:20 100 MLS/HR Sodium Chloride (NS Flush 10ml) 10 ml Q8H PRN IVP IV LINE FLUSH 02/14/25 10:00 03/16/25 09:59 Spironolactone (Aldactone 25mg) 25 mg DAILY PO 02/10/25 14:30 02/14/25 09:59 DC 02/13/25 10:52 25 MG Tramadol HCl (UltRAM) 25 mg Q6H PRN PO MODERATE PAIN (4-6) 02/14/25 10:00 02/19/25 09:59 DC Tramadol HCl (UltRAM) 50 mg Q6H PRN PO SEVERE PAIN (7-10) 02/14/25 10:00 02/19/25 09:59 DC Vancomycin HCl 250 ml @ 125 mls/hr Q12H IV 02/18/25 11:30 02/28/25 11:29 02/19/25 11:20 125 MLS/HR Vancomycin HCl (Vancomycin Protocol) 1 each AD IV 02/18/25 11:00 03/04/25 10:59 Vasopressin 40 units/Sodium Chloride 40 ml @ 0 mls/hr PROTOCOL IV 02/14/25 13:00 03/16/25 12:59 02/14/25 22:11 1.8 MLS/HR DIAGNOSTICS / RADIOLOGY: [place] [address] [place] [address] [id number] IMAGING REPORT Signed PATIENT: EMMY GRACE MR#: [id number] : 1950 SEX: M AGE: 74 LOCATION: [facility] ORDER 1016 STATUS: ADM IN REPORT#: [id number] SERVICE 1013 REASON: POSSIBLE IMPELLA REMOVAL ORDERING PHYSICIAN: ART FRIED MD PROCEDURE: ECHO FU LD - ECHO 2-D F/U-LTD APPROVED REPORT EXAM: Limited Two-dimensional echocardiogram with color Doppler. INDICATION ICD: Possible removal of impella device 2D Dimensions IVSd 1.2 (0.7-1.1cm) LVEF(%) 31.0 (>50%) LVDd 5.3 (3.8-5.6cm) FS(%) 15 % PWd 1.2 (0.7-1.1cm) Ao Root(2D) 3.7 (2.0-3.7cm) IVSs 1.0 cm LVDs 4.5 (2.5-4.0cm) PWs 1.4 cm Left Ventricle Left ventricular cavity size is normal. Impella device measuring 6.5cm into the left ventricle. Anterior, anteroseptal wall is thin and akinetic. Anterolateral wall is hypokinetic. There is borderline increase in left ventricular wall thickness. LVEF is 25-30%. Right Ventricle The right ventricular systolic function is normal. Mitral Valve The mitral valve is normal in structure. Mitral valve opens well. Pericardium No pericardial effusion. Other Information Quality : Limited/Follow-up Rhythm : NSR Conclusion LVEF is 25-30%. Anterior, anteroseptal wall is thin and akinetic. Anterolateral wall is hypokinetic. No pericardial effusion. Impella device measuring 6.5cm into the left ventricle. DICTATED BY: SHAQ ARREOLA DO DATE: 02/19/25 1201 ELECTRONICALLY SIGNED BY: SHAQ ARREOLA DO DATE: 02/19/25 1310 [facility] [address] [place], [place] [phone] IMAGING REPORT Signed PATIENT: EMMY GRACE MR#: [id number] : 1950 SEX: M AGE: 74 LOCATION: [facility] ORDER 2300 STATUS: ADM IN REPORT#: [id number] SERVICE 0400 REASON: s/p CABG ORDERING PHYSICIAN: FRANKY PACHECO MD PROCEDURE: CXR1VW - CHEST 1VW EXAM: CR Chest, 1 View. CLINICAL HISTORY: s/p CABG COMPARISON: 02/18 6:34 EST FINDINGS: LUNGS: Right IJ central venous catheter and ventricular assist device are unchanged compared to prior study. Small left pleural effusion left basilar atelectasis. PLEURAL SPACES: No pleural effusion or pneumothorax. MEDIASTINUM: Cardiac size and mediastinal contours within normal limits. BONES: No acute osseous abnormality. IMPRESSION: Right IJ central venous catheter and ventricular assist device are unchanged compared to prior study. Small left pleural effusion left basilar atelectasis. /[place] DICTATED BY: STEPHON BOWERS DO DATE: 02/19/25901 ELECTRONICALLY SIGNED BY: STEPHON BOWERS DO DATE: 02/19/25901 ASSESSMENT: Chest pain rule out ACS: NSTEMI POA Suspected pneumonia findings on Chest X-ray Hyperglycemia secondary to uncontrolled diabetes POA Hyperlipidemia POA Medication noncompliance, POA Obesity POA [place]/Coronary artery disease with cardiac stent POA PLAN: NSTEMI POA: * EKG was done which revealed sinus rhythm heart rate 85 with atrial premature complex anterolateral infarct age indeterminate. Second EKG result revealed sinus rhythm heart rate 73 with left anterior fascicular block. Probable anterolateral infarct age indeterminate. Abnormal T consider ischemia lateral leads. * PERC score was one, Wells score was zero. Very low suspicion for Pulmonary Embolism. * Chest x-ray done on 02/17/25 show, small stable left pleural effusion with adjacent lung atelectasis. follow up x-ray from 02/19/25 show no interval change. * 2-D ECHO on 02/19/25 show LVEF of 25-30% with segmental akinesis (apical, apical lateral, anteroapical), LDL 89, BNP 488 * Troponin trends [id number] * Left heart catheterization revealed severe three-vessel CAD with occluded mid LAD, 90% proximal left circumflex, 95% distal RCA, and 90% ostial PDA. * As per CT surgeon recommendations Entresto 0.5 each, Aldactone 25mg, Jardiance 10mg were held. 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 * On aspirin 81 mg p.o. * Continue patient on Lasix drip, 2.5 currently. Total output 2905 versus total input 4072. * Currently on Epinephrine drip. * Impella P3 support. Wean it down as recommended by CTS, possible tomorrow. * Patient was started on Lovenox 30mg. Suspected pneumonia findings on Chest X-ray * Chest x-ray done on 02/16/25 show diffuse airspace disease of the left lung, predominantly involving the left lower zone, could be due to an infection or atelectasis. Questionable left pleural effusion. * Chest x-ray done on 02/17/25 show, small stable left pleural effusion with adjacent lung atelectasis. follow up x-ray from 02/19/25 show no interval change. * Patient started on Vancomycin (day4) and cefepime (day4) * WBC count on (02/19/25) - 15.9 * Will monitor with daily labs. Hyperglycemia secondary to uncontrolled diabetes POA: * HbA1c 13.9, blood glucose 181 * Following the Endocrinology recommendations. He is on Lantus 15 units, low- dose sliding scale insulin and Jardiance 10 mg * We will monitor blood glucose. Hypokalemia Hypomagnesemia * Potassium 3.6, magnesium 1.7 (02/19/25) * We will replete the electrolytes and monitor. * Keep potassium above 4 and magnesium above 2. * We will start Slow-Mag oral t.i.d. once and will keep monitoring magnesium levels. Supportive measures * GI prophylaxis with Famotidine * DVT prophylaxis with Lovenox ATTESTATION BY PHYSICIAN I have seen and examined the patient. I reviewed the documentation, medical decision making, and treatment plan as noted by the resident provider above. I agree with the findings and plan of care. Joe Jackman MD, SHAJI MD Feb 19, 2025 13:43
--- NOTE | 2025-02-19 16:29 | PN ---
INFECTIOUS DISEASE PROGRESS NOTE Date of Service: Feb 19, 2025 SUBJECTIVE: This 74-year-old male patient who was seen at bedside in room 210. Patient is awake, alert and eating lunch. No dyspnea observe but patient is currently on oxygen via nasal cannula at 2 L/min. Patient is s/p CABG and Impel la still in place. During rounding today patient was pending a 2D echo to be done today. Patient's and daughter present visiting at bedside. WBC remains about the same at 15.9. No fever, temperature is 98.4. We will continue on cefepime and vancomycin. No other issues reported by nursing. PHYSICAL EXAM EYES: Anicteric. Pupils equal and reactive. HENT: No oral thrush seen, moist Oral mucosa. NECK: Supple, no JVD or thyromegaly. LUNGS: Good air entry. diminished breath sounds. CHEST: Chest tube. Sternal incision. CARDIOVASCULAR: S1, S2 regular. No murmur heard. ABDOMEN: Soft, non tender, bowel sounds present. CENTRAL NERVOUS SYSTEM: Awake, alert, oriented. SKIN: No rashes, no swelling. Vein harvesting surgical incisions to bilateral lower extremities.. LYMPHATICS: No peripheral lymphadenopathy. MUSCULOSKELETAL: No joint swelling, erythema or tenderness. EXTREMITIES: No cyanosis or clubbing. 1+ edema to bilateral feet. BACK: No deformity, no pressure ulcer. GENITOURINARY: No dysuria or hematuria. De Jesus catheter. Vital Sign (Last 12 Hours) 02/19/25 02/19/25 02/19/25 02/19/25 05:00 05:30 06:00 06:15 Pulse 89 89 95 90 Resp 17 17 21 15 B/P (MAP) 139/58 (85) 107/49 (68) 109/66 (80) 92/57 (69) Pulse Ox 99 100 94 93 FiO2 28 02/19/25 02/19/25 02/19/25 02/19/25 06:20 08:00 08:00 12:00 Temp 98.4 98.6 Pulse 86 Resp 19 Pulse Ox 99 O2 Delivery N/A Room Air Nasal Cannula* O2 Flow Rate 2 FiO2 21 28 02/19/25 02/19/25 12:00 16:00 Temp 98.4 Pulse Ox 96 O2 Delivery Room Air* O2 Flow Rate 0 FiO2 21 Intake & Output (last 24hrs) 11/02/18/25 02/19/25 15:00 23:00 07:00 Intake Total 1634.4 ml 1373.9 ml 1036.9 ml Output Total 900 ml 840 ml 1065 ml Balance 734.4 ml 533.9 ml -28.1 ml LABS: Laboratory: Test 02/19/25 11:37 02/19/25 04:23 02/19/25 04:18 02/18/25 04:11 Range/Units Whole Blood Glucose 182 H 70-110 MG/DL White Blood Count 15.9 H 4.8-10.8 K/uL Red Blood Count 2.93 L 4.50-6.20 MIL/uL Hemoglobin 8.7 L 14.0-18.0 g/dL Hematocrit 25.2 L 42-54 % Mean Corpuscular Volume 86.0 79-99 fL Mean Corpuscular Hemoglobin 29.7 27.0-33.0 pg Mean Corpuscular Hemoglobin Concent 34.5 32.0-36.0 g/dL Red Cell Distribution Width 13.5 11.0-15.5 % Platelet Count 179 130-400 K/uL Mean Platelet Volume 10.9 H 7.5-10.5 fL Nucleated Red Blood Cells 0.3 H 0.0-0.19 % Sodium Level 132 L 136-145 mmol/L Potassium Level 3.6 3.5-5.1 mmol/L Chloride Level 94 L 101-111 mmol/L Carbon Dioxide Level 25 21-32 mmol/L Blood Urea Nitrogen 20 H 7-18 mg/dL Creatinine 0.8 0.5-1.3 mg/dL Glomerular Filtration Rate Calc 92 >90 mL/min Random Glucose 163 H 70-105 mg/dL Total Calcium 8.1 L 8.5-10.1 mg/dL Magnesium Level 1.70 L 1.80-2.40 mg/dL Blood Gas Specimen Type Arterial Arterial Blood pH 7.483 H 7.350-7.450 Arterial Blood Partial Pressure CO2 34 L 35-48 mmHg Arterial Blood Partial Pressure O2 96.6 83.0-108.0 mmHg Arterial Blood HCO3 24.6 21.0-28.0 mmol/L Arterial Blood Oxygen Saturation 97.0 94.0-98.0 % Arterial Blood Base Excess 1.3 -2.0-3.0 mmol/L Hemoglobin (Blood Gas) 9.3 L 13.5-17.5 g/dL Sodium (Blood Gas) 133 L 136-145 MMOL/L Bedside Potassium (Blood Gas) 3.8 3.4-4.5 MMOL/L Bedside Chloride (Blood Gas) 97 L 98-107 MMOL/L Bedside Glucose (Blood Gas) 172 H 65-95 MG/DL Bedside Ionized Calcium (Blood Gas) 1.12 L 1.15-1.33 MMOL/L Bedside Lactic Acid (Blood Gas) 1.17 H 0.36-0.75 MMOL/L Blood Gas Temperature 37.0 35.5-37.0 CELSIUS Blood Gas Flow-by 2.00 0.00-15.00 L/min Blood Gas Vent Mode NC 2L ROOM AIR FiO2 28.0 % Blood Gas Specimen Comment ADI NAVARRO JIAN Immature Granulocyte % (Auto) 1.5 H 0-1 % Neutrophils (%) (Auto) 74.2 40.0-77.0 % Lymphocytes (%) (Auto) 12.6 L 21.0-51.0 % Monocytes (%) (Auto) 11.0 3.0-13.0 % Eosinophils (%) (Auto) 0.4 0.0-8.0 % Basophils (%) (Auto) 0.3 0.0-5.0 % Neutrophils # (Auto) 11.6 H 1.8-7.7 K/uL Lymphocytes # (Auto) 2.0 1.0-4.8 K/uL Monocytes # (Auto) 1.7 H 0.1-1.0 K/uL Eosinophils # (Auto) 0.06 0.00-0.70 K/uL Basophils # (Auto) 0.04 0.00-0.20 K/uL Absolute Immature Granulocyte (auto 0.24 0-1 K/uL ASSESSMENT: Possible hospital-acquired pneumonia. Leukocytosis. 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 Postop anemia. Left Pleural effusion. Diabetes mellitus. Congenital heart failure EF of 20% PLAN: Continue cefepime. Continue vancomycin per pharmacy protocol. Continue GI prophylaxis. Continue on Lasix drip. Continue oxygen support. Monitor electrolytes. Patient is pending a 2D echo to be done today. This case was reviewed and discussed with my supervising physician Dr. Mckeon and the above assessment and plan was formulated and agreed upon. ATTESTATION BY PHYSICIAN I have seen and examined the patient. I reviewed the documentation, medical deci khalida making, and treatment plan as noted by the mid-level provider above. I agree with the findings and plan of care. BERENICE MCKEON MD, MIRTA L [facility] Feb 19, 2025 16:29
--- NOTE | 2025-02-19 16:46 | CCATH ---
This gentleman is coursing postoperative day 4 status post Impella supported CABG for depressed ventricular function. PHYSICAL EXAMINATION: GENERAL: He is awake, alert, in no acute distress, sitting in a chair comfortable. VITAL SIGNS: Status was according to the medical record. His Impella L5.5 is working well, introduced through an aortic conduit and flowing at P3 level about close to 2 L/min. ASSESSMENT: * Anemia secondary to ____ the patient has witnessed and hemoglobin maintains 7.9 to 8, stable. No evidence of bleeding. Impella functioning well. * Congestive heart failure. He has depressed ventricular function noted at 20% with a large anterolateral scar. He seems to be doing well hemodynamically. We will continue to wean the Impella and plan for Impella removal on Thursday. We will assess with echocardiogram and revisit the function. * Fluid overload. The patient has been on Lasix drip, now has decreased to 2.5 mg/hour since the patient is diuresed over 5 L in the last 2 days. * Coronary artery disease. Continue aspirin 81 mg status post 3 bypasses and will initiate Plavix once the Impella is removed. PLAN: Continue to wean Impella. Check position of Impella by echocardiogram. Revisit heart function. Low-dose beta-estela as tolerated. Remove the Impella on Thursday. TID: [id number] RECEIPT: [id number]
--- NOTE | 2025-02-19 19:10 | PN ---
SUBJECTIVE: The patient is postop day #5 from an Impella supported coronary artery bypass grafting. His Impella has been weaned down to a level of P3, which is giving him 1.7 liters per minute of flow. He offers no complaints. He is sitting up in a bedside chair. OBJECTIVE: VITAL SIGNS: His vital signs revealed pulse 93, blood pressure 110/45, respirations are 18, oxygen saturation is 96% on nasal cannula oxygen. HEENT: Reveals normocephalic, atraumatic. He has nasal cannula oxygen. Prongs under his nose. He has a right cervical central venous line. He has a left lower cervical Impella left ventricular assist device. CHEST: His sternal wound is bandaged. His chest tubes are out. LUNGS: His lungs reveal decreased breath sounds in the left base. HEART: His heart is S1, S2 and regular. ABDOMEN: His abdomen reveals mild to moderate obesity with positive bowel sounds. GENITOURINARY: He has a De Jesus catheter in his bladder. EXTREMITIES: He has a left radial art line. He has SCDs on his lower extremities. ASSESSMENT AND PLAN: 1. Status post Impella supported coronary artery bypass grafting. Continue aspirin, Lasix drip. Discontinue epinephrine drip. We will obtain an echocardiogram with the Impella catheter placed down to P2. If this looks reasonable, we could probably discontinue the Impella catheter tomorrow. 2. Hypercholesterolemia. Lipitor at bedtime. Low cholesterol, cardiac diet. 3. Postoperative acute pulmonary insufficiency secondary to thoracic surgery and left pleural effusion. I encouraged incentive spirometry. Support oxygen needs with nasal cannula oxygen to keep oxygen saturation greater than 90%. 4. Deep venous thrombosis prophylaxis. Continue SCDs to the lower extremities. Time spent 30 minutes. The patient is critically ill in the ICU. TID: [id number] RECEIPT: [id number]
[2025-02-20] VITALS (106 sets, daily range): BP systolic 60–225; BP diastolic 42–223; PULSE 44–91; RESP 6–37; TEMP 97.7–98.4; O2SAT 95–100
[2025-02-20 05:02] LABS: IMMATURE GRANULOCYTE ABSOLUTE 1.14 K/uL (0-1); NUCLEATED RED BLOOD CELLS 0.1 % (0.0-0.19); PLATELET COUNT (AUTO) 118 K/uL (130-400); RED BLOOD CELL COUNT(AUTO) 2.58 MIL/uL (4.50-6.20); RED CELL DISTRIBUTION WIDTH 13.4 % (11.0-15.5); WHITE BLOOD COUNT (AUTO) 14.0 K/uL (4.8-10.8)
[2025-02-20 05:24] LABS: ASPARTATE AMINOTRANSFERASE 40.0 U/L (10-37); CREATININE 0.7 mg/dL (0.5-1.3); GLOMERULAR FILTR. RATE CALC 95.0 mL/min (>90); GLUCOSE,RANDOM 127.0 mg/dL (70-105); SODIUM SERUM 133.0 mmol/L (136-145); TOTAL PROTEIN, SERUM 4.7 g/dL (6.0-8.3); UREA NITROGEN, BLOOD 15.0 mg/dL (7-18)
--- NOTE | 2025-02-20 08:56 | PN ---
[facility] PROGRESS NOTE Date of Service: Feb 20, 2025 Time of Service: 08:44 HISTORY OF PRESENT ILLNESS: This is a 74-year-old male,a [employer] by [employer] whith past medical history of diabetes, hyperlipidemia and [place]/coronary artery disease with cardiac stent who presented to the Ed for complaints of midsternal chest pain that is non radiating associated with diaphoresis and this happened when patient was laying down in bed aroun 11:50 pm last night and decided to come to the ED for evaluation.Patient reports pain was persistent.As per patient he had a history of heart attack before and underwent a stent placement.Patient reports the only medication he is taking is Metformin.Patient states he is supposed to be on Aspirin but has stopped taking it.Patient reports he occasionally drinks beer and last drink was yesterday ,had 2 beers he said. Seen and examined patient in the ER awake,alert and coherent,appears comfortable.Patient denies fever,chills,cough,nausea,vomiting,palpitation and shortness of breath. Latest vital signs temperature 98.2, heart rate 75, blood pressure 124/70 saturation 97% on room air. Labs: CBC unremarkable. Chloride 99, BUN 21, random glucose 469 to 439 to 327. Troponin from -. ECG result revealed revealed sinus rhythm heart rate 85 with atrial premature complex anterolateral infarct age indeterminate. Second EKG result revealed sinus rhythm heart rate 73 with left anterior fascicular block. Probable anterolateral infarct age indeterminate. Abnormal T consider ischemia lateral leads.. Chest x-ray result revealed no acute cardiopulmonary process is evident. While in the ER patient received 1500 mL NS bolus, insulin 5 units IV, aspirin 325 mg p.o. and patient was started on heparin drip per [facility] protocol. SUBJECTIVE: 02/10/25: Patient was seen and evaluated in ED9. Patient was alert, awake and orientedX3. Patient reports that he doesn't have any chest pain today. Patient reports occasional shortness of breath during nights. Patient denies any shortness of breath, nausea, vomiting, palpitations and lightheadedness. Patient denies any abdominal pain, burning urination. Patient mentions that he only takes metformin 3-4 times per week and has stopped taking aspirin because it wasn't reconciled. Troponin from -. 2D ECHO was done, pending results. Patient is currently on Heparin drip 02/11/25: Patient was evaluated at the bedside this morning. No overnight event. He is AAO x3. patient reported that he does not have chest pain or shortness of breath. He is hemodynamically stable. The labs remarkable for potassium 3.3, magnesium 1.6, HbA1c 13.9, troponin 23300. Left heart catheterization revealed severe triple-vessel disease. Echocardiogram revealed 25% ejection fraction with segmental akinesis. CT surgery was consulted who recommended CABG with Impella left ventricle assist. Family to decide about the procedure. He is currently on heparin drip, aspirin. Endocrinology on board. Rest of the plan as discussed below. 02/12/25: Patient was evaluated at the bedside this morning. No overnight event. He is AAO x3. patient reported that he does not have chest pain or shortness of breath. He is hemodynamically stable. Cardiology is on board and Dr. Blanton have suggested low-dose beta estela like metoprolol tartrate 12.5 mg b.i.d. for his heart failure. Dr Kaur still recommends CABG with 5.5 Impella LVAD and the patient agrees to it. We will continue Entresto, Aldactone, Jardiance, aspirin, Lasix as per CT surgeon recommendations. Today his potassium is 3.1 and we would like to be above 4 for CABG patients. So we will replace potassium 02/13/25: Patient was seen and evaluated in room 201. Patient reports feeling better. patient denies any chest pain, shortness of breath. He is continuing on Entresto, Aldactone, Jardiance, aspirin, Lasix as per CT surgeon recommendations.Patients Potassium today is 3.7, will continue replacing potassium. Patients was present along with the patient, she has a few question about the CABG procedure which she wanted to ask Dr. Alexis. 02/14/25. Patient was undergoing CABG procedure today in the morning. 02/15/25: Patient was seen and evaluated in room 213. Patient status post CABG day 1. Patient denies any fever, chills, shortness of breath. Patient complaints of pain along the incision. Patient is on IABP and Impella support. patient is on Vasopressin and Norepinephrine drip. Entresto, Aldactone, Jardiance were discontinued by Dr. Alexis. CT surgery are on the case and will follow their recommendations. 02/16/25: Patient was seen and evaluated in room 213. Patient status post CABG day 2. patient was asleep when we went bedside. Spoke with the nurse regarding overnights and she mentioned that patient was a bit confused in the night but later improved with sleep. Patient is continuing on Epinephrine drip. Patient was weaned off IABP and is currently only on Impella. Patient was started on Vancomycin and cefepime due to elevated WBC levels and findings suggestive of pneumonia on chest x-ray 02/17/25: Patient was seen and evaluated in room 213. Patient status post CABG day 2. patient was asleep when we went bedside. Spoke with the nurse regarding overnights and he mentioned that patient was started on lasix protocol. Patient is continuing on Epinephrine drip and Impella. Critical care are on the case and will follow their recommendations. 02/18/25: Patient was seen and examined at bedside. He is status post CABG day 3. He continues on Lasix drip 2.5, With Impella P3 support and epinephrine drip. His total output in the past 24 hours has been optimal, 4740 versus 2165 input. No acute events overnight. We will follow CTS recommendations regarding further weaning off Impella. 02/19/25: Patient was seen and evaluated in room 210. He is status post CABG day 4. He continues on Lasix drip 2.5, With Impella P3 support and epinephrine drip. His total output in the past 24 hours has been 2905 versus 4072. No acute overnight. Patient is scheduled for possible impella removal tomorrow. 02/20/25: Patient was seen and evaluated in room 210. He is status post CABG day 5. He continues on Lasix drip 2.5, Impella setting have been maintained at P3 settings. He is continuing on epinephrine drip. Cefepime was discontinued yesterday because overnight the patient was confused, agitated and combative suspecting the cause of his confusion and started on Zosyn. His total output in the past 24 hours has been 2675 versus 2206. Patient is scheduled for possible impella removal tomorrow. REVIEW OF SYSTEMS CONSTITUTIONAL: Denies fevers, chills, or night sweats. No unintentional weight loss reported. NEUROLOGICAL: Denies headache, amaurosis fugax, motor weakness, sensory deficit, vertigo/spinning sensation, gait abnormalities, or tremors. ENT: No hearing loss, otalgia, otorrhea, rhinitis, rhinorrhea, hoarseness, or sore throat. CARDIOVASCULAR: Denies chest pain, dyspnea on exertion, orthopnea, paroxysmal nocturnal dyspnea, palpitations, life-threatening arrhythmias, claudication. PULMONARY: Denies any cough, phlegm/sputum, hemoptysis, pleuritic chest pain. GASTROINTESTINAL: Denies any type of dysphagia to either liquids or solids. Denies nausea, vomiting, pyrosis, early satiety, abdominal pain, diarrhea, constipation, or changes in stool consistency or caliber. Denies coffee-ground emesis, hematemesis, hematochezia, or melanotic stools. GENITOURINARY: Denies frequency, urgency, nocturia, hematuria or incontinence (Storage/Irritative symptoms.) Low urinary stream, straining to void, urinary intermittency or hesitancy, splitting of the voiding stream, terminal dribbling. PHYSICAL EXAM GENERAL APPEARANCE: The patient is awake, alert, and oriented, in no acute cardiopulmonary distress. NEUROLOGICAL: Cranial nerves II-XII grossly intact. Motor is 5/5 in bilateral upper and lower extremities proximal to distal. No sensory deficits. HEENT: Face is symmetric. Pupils are equal and reactive. Extraocular movements are intact. NECK: Supple. No JVD. No thyromegaly. No submental, submandibular, pre- /postauricular, occipital or supraclavicular lymphadenopathy. CHEST: Normal chest expansion. No Telemetry. LUNGS: Absence of any rales, rhonchi or any wheezing. CARDIOVASCULAR: Regular. S1 and S2 normal. No appreciable rubs, murmurs or gallops. ABDOMEN: Soft, nontender, and nondistended. There is no rebound, voluntary guarding, or rigidity. : Deferred. No De Jesus. EXTREMITIES: Non-edematous and not cyanotic. No clubbing. Good capillary refill. SKIN: No skin breakdown. Vital Signs (last 8hr) Date Time Temp Pulse Resp B/P (MAP) Pulse Ox O2 Delivery O2 Flow Rate FiO2 02/20/25 06:45 89 27 116/104 (108) 98 02/20/25 06:38 90 23 112/98 (103) 98 95/50 (65) 02/20/25 06:30 91 21 144/123 (130) 98 02/20/25 06:15 85 21 91/75 (80) 98 02/20/25 06:07 82 21 77/66 (70) 98 98/59 (72) 02/20/25 06:00 81 19 80/66 (71) 98 02/20/25 05:45 82 23 85/68 (74) 97 02/20/25 05:30 83 16 90/72 (78) 98 02/20/25 05:27 80 37 83/66 (72) 98 93/60 (71) 02/20/25 05:15 84 25 225/223 (224) 02/20/25 05:00 83 19 96/46 (63) 95 02/20/25 04:45 96 Room Air* 0 21 02/20/25 04:45 85 17 101/52 (68) 94 02/20/25 04:38 86 21 101/48 (65) 94 117/70 (86) 02/20/25 04:30 98.4 85 18 74/55 (61) 96 02/20/25 04:15 84 13 87/55 (66) 95 02/20/25 04:08 82 15 88/55 (66) 95 129/77 (94) 02/20/25 04:00 98.2 02/20/25 04:00 82 7 82/51 (61) 95 02/20/25 03:45 83 15 85/53 (64) 96 02/20/25 03:38 66 21 84/56 (65) 94 113/67 (82) 02/20/25 03:30 48 24 83/57 (66) 95 02/20/25 03:15 66 20 83/47 (59) 95 02/20/25 03:00 66 22 85/57 (66) 94 02/20/25 02:45 82 19 77/63 (68) 95 02/20/25 02:38 81 20 81/57 (65) 93 107/58 (74) 02/20/25 02:30 82 22 95/59 (71) 94 02/20/25 02:15 80 18 65/48 (54) 02/20/25 02:08 44 19 70/48 (55) 103/64 (77) 02/20/25 02:00 46 21 69/53 (58) 95 02/20/25 01:45 71 19 63/50 (54) 96 11/24/25 01:38 64 16 60/47 (51) 97 110/60 (77) 02/20/25 01:30 79 19 63/51 (55) 97 02/20/25 01:15 60 19 62/48 (53) 96 02/20/25 01:08 67 20 62/50 (54) 96 113/57 (75) 02/20/25 01:00 78 21 60/46 (51) 96 02/20/25 00:45 70 19 76/48 (57) 96 LABS: Laboratory: Test 02/20/25 04:23 02/19/25 22:20 02/19/25 20:19 02/19/25 04:18 Range/Units White Blood Count 14.0 H 4.8-10.8 K/uL Red Blood Count 2.58 L 4.50-6.20 MIL/uL Hemoglobin 7.6 L 14.0-18.0 g/dL Hematocrit 22.6 L 42-54 % Mean Corpuscular Volume 87.6 79-99 fL Mean Corpuscular Hemoglobin 29.5 27.0-33.0 pg Mean Corpuscular Hemoglobin Concent 33.6 32.0-36.0 g/dL Red Cell Distribution Width 13.4 11.0-15.5 % Platelet Count 118 #L 130-400 K/uL Mean Platelet Volume 11.7 H 7.5-10.5 fL Immature Granulocyte % (Auto) 8.2 H 0-1 % Neutrophils (%) (Auto) 64.1 40.0-77.0 % Lymphocytes (%) (Auto) 15.6 L 21.0-51.0 % Monocytes (%) (Auto) 9.0 3.0-13.0 % Eosinophils (%) (Auto) 2.5 0.0-8.0 % Basophils (%) (Auto) 0.6 0.0-5.0 % Neutrophils # (Auto) 9.0 H 1.8-7.7 K/uL Lymphocytes # (Auto) 2.2 1.0-4.8 K/uL Monocytes # (Auto) 1.3 H 0.1-1.0 K/uL Eosinophils # (Auto) 0.35 0.00-0.70 K/uL Basophils # (Auto) 0.08 0.00-0.20 K/uL Absolute Immature Granulocyte (auto 1.14 H 0-1 K/uL Nucleated Red Blood Cells 0.1 0.0-0.19 % Sodium Level 133 L 136-145 mmol/L Potassium Level 2.9 *L 3.5-5.1 mmol/L Chloride Level 97 L 101-111 mmol/L Carbon Dioxide Level 26 21-32 mmol/L Blood Urea Nitrogen 15 7-18 mg/dL Creatinine 0.7 0.5-1.3 mg/dL Glomerular Filtration Rate Calc 95 >90 mL/min Random Glucose 127 H 70-105 mg/dL Total Calcium 6.9 L 8.5-10.1 mg/dL Magnesium Level 1.50 L 1.80-2.40 mg/dL Total Bilirubin 1.3 H 0.2-1.0 mg/dL Aspartate Amino Transf (AST/SGOT) 40 H 10-37 U/L Alanine Aminotransferase (ALT/SGPT) 26 12-78 U/L Alkaline Phosphatase 61 50-136 U/L Total Protein 4.7 L 6.0-8.3 g/dL Albumin 1.9 L 3.5-5.0 g/dL Vancomycin Level Trough 31.5 *H 10.0-20.0 UG/ML Whole Blood Glucose 181 H 70-110 MG/DL Blood Gas Specimen Type Arterial Arterial Blood pH 7.483 H 7.350-7.450 Arterial Blood Partial Pressure CO2 34 L 35-48 mmHg Arterial Blood Partial Pressure O2 96.6 83.0-108.0 mmHg Arterial Blood HCO3 24.6 21.0-28.0 mmol/L Arterial Blood Oxygen Saturation 97.0 94.0-98.0 % Arterial Blood Base Excess 1.3 -2.0-3.0 mmol/L Hemoglobin (Blood Gas) 9.3 L 13.5-17.5 g/dL Sodium (Blood Gas) 133 L 136-145 MMOL/L Bedside Potassium (Blood Gas) 3.8 3.4-4.5 MMOL/L Bedside Chloride (Blood Gas) 97 L 98-107 MMOL/L Bedside Glucose (Blood Gas) 172 H 65-95 MG/DL Bedside Ionized Calcium (Blood Gas) 1.12 L 1.15-1.33 MMOL/L Bedside Lactic Acid (Blood Gas) 1.17 H 0.36-0.75 MMOL/L Blood Gas Temperature 37.0 35.5-37.0 CELSIUS Blood Gas Flow-by 2.00 0.00-15.00 L/min Blood Gas Vent Mode NC 2L ROOM AIR FiO2 28.0 % Blood Gas Specimen Comment MELANIE, RN JIAN Current Medications Medications (Trade) Dose Ordered Sig/Carol Route PRN Reason Start Time Stop Time Status Last Admin Dose Admin Acetaminophen (TYLenol 325MG TAB) 650 mg Q4H PRN PO MILD PAIN (1-3) 02/10/25 05:00 02/14/25 10:05 DC Acetaminophen (TYLenol 325MG TAB) 650 mg Q4H PRN PO Temp >38.3C(AFTER EXTUBATION) 02/14/25 10:00 03/16/25 09:59 Acetaminophen (TYLenol 325MG TAB) 650 mg Q6H PRN PO TEMPERATURE GREATER THAN 101.5 02/10/25 05:00 02/14/25 10:17 DC 02/12/25 17:13 650 MG Acetaminophen (TYLenol 325MG TAB) 650 mg Q6H PRN PO MILD PAIN (1-3) 02/14/25 10:00 03/16/25 09:59 Acetaminophen (TYLenol 650MG SUPPOSITORY) 650 mg Q4H PRN RC Temp >38.3C WHILE INTUBATED 02/14/25 10:00 03/16/25 09:59 Acetaminophen (acetaMINOPHEN 1,000MG/100ML) 1,000 mg Q6H6 IV 02/14/25 14:00 02/15/25 13:59 DC 02/15/25 12:14 1,000 MG Albumin Human 250 ml @ 0 mls/hr AD IV 02/14/25 15:30 02/18/25 10:40 DC 02/18/25 10:27 250 MLS/HR Albumin Human 250 ml @ 0 mls/hr AD IV 02/18/25 10:30 02/23/25 10:29 Albumin Human 250 ml @ 0 mls/hr AD PRN IV IF HEMODYNAMICALLY UNSTABLE 02/14/25 10:00 02/14/25 14:42 DC 02/14/25 14:42 500 MLS/HR Aminocaproic Acid 97189 mg/Sodium Chloride 310 ml @ 25 mls/hr AD IV 02/14/25 10:00 02/14/25 10:19 DC Aminocaproic Acid 22794 mg/Sodium Chloride 480 ml @ 0 mls/hr AD PRN IV BLEEDING CONTROL 02/14/25 06:30 03/16/25 06:29 Aminocaproic Acid 31394 mg/Sodium Chloride 480 ml @ 0 mls/hr AD PRN IV BLEEDING CONTROL 02/14/25 07:00 02/14/25 06:51 DC Aspirin (Aspirin 325mg Tab) 325 mg ONCE PO 02/10/25 14:30 02/10/25 17:22 DC 02/10/25 14:32 325 MG Aspirin (Aspirin 81mg Ec Tab) 81 mg DAILY PO 02/10/25 09:00 03/12/25 08:59 02/19/25 08:13 81 MG Atorvastatin Calcium (LIPItor 40MG) 40 mg HS PO 02/14/25 21:00 03/16/25 20:59 02/19/25 20:32 40 MG Calcium Gluconate 1 gm/Sodium Chloride 60 ml @ 200 mls/hr AD PRN IV HYPOCALCEMIA 02/14/25 10:00 03/16/25 09:59 02/19/25 04:28 200 MLS/HR Cefazolin Sodium (Ancef) 2 gm ONCALL IVP 02/13/25 20:00 02/14/25 18:51 DC 02/14/25 08:50 2 GM Cefazolin Sodium (Ancef) 2 gm Q8H IVPB 02/14/25 15:00 02/15/25 07:01 DC 02/15/25 06:25 2 GM Cefepime HCl (MAXipime 1 GM vial) 1 gm Q12H IVPB 02/16/25 10:30 02/20/25 08:16 DC 02/19/25 22:54 1 GM Clopidogrel Bisulfate (plaVIX 300MG TAB) 600 mg ONCE PO 02/10/25 14:00 02/10/25 17:22 DC 02/10/25 14:19 600 MG Clopidogrel Bisulfate (plaVIX 75MG) 75 mg DAILY PO 02/11/25 09:00 02/11/25 07:28 DC Dexmedetomidine/ Sodium Chloride (PRECEdex 400MCG/ 100ML-NS) 400 mcg PROTOCOL IV 02/14/25 10:00 02/15/25 09:59 DC Dexmedetomidine/ Sodium Chloride (PRECEdex 400MCG/ 100ML-NS) 400 mcg PROTOCOL IV 02/20/25 07:30 03/22/25 07:29 Dextrose (D50w) 50 ml AD PRN IV HYPOGLYCEMIA PROTOCOL 02/10/25 05:00 02/14/25 10:17 DC Dextrose (D50w) 50 ml AD PRN IV HYPOGLYCEMIA PROTOCOL 02/14/25 10:00 03/16/25 09:59 Docusate Sodium (COLace 100MG CAP) 100 mg BID PO 02/14/25 21:00 03/16/25 20:59 02/18/25 08:13 100 MG Empaglifozin (Jardiance 10mg) 10 mg DAILY PO 02/10/25 14:30 02/14/25 09:59 DC 02/13/25 10:52 10 MG Enoxaparin Sodium (Lovenox) 30 mg DAILY SQ 02/17/25 09:00 03/19/25 08:59 02/19/25 08:13 30 MG Epinephrine HCl 10 mg/Sodium Chloride 250 ml @ 0 mls/hr AD PRN IV TITRATE 02/14/25 06:30 03/16/25 06:29 02/16/25 00:51 4.32 MLS/HR Epinephrine HCl 10 mg/Sodium Chloride 250 ml @ 0 mls/hr AD PRN IV TITRATE 02/14/25 07:00 02/14/25 06:51 DC Epinephrine HCl 10 mg/Sodium Chloride 250 ml @ 0 mls/hr AD PRN IV POST-OP CARDIOVASCULAR ORDERS 02/14/25 10:00 02/14/25 10:14 DC Famotidine (Pepcid 20mg Vial) 20 mg BID IV 02/14/25 21:00 02/16/25 07:58 DC 02/15/25 20:15 20 MG Famotidine (Pepcid 20mg Tab) 20 mg BID PO 02/16/25 09:00 02/17/25 07:09 DC 02/16/25 20:03 20 MG Famotidine (Pepcid 20mg Tab) 20 mg DAILY PO 02/10/25 09:00 02/14/25 09:59 DC 02/13/25 10:53 20 MG Famotidine (Pepcid 20mg Tab) 20 mg DAILY PO 02/17/25 09:00 03/18/25 08:59 02/19/25 08:13 20 MG Furosemide (LASix 20MG TAB) 20 mg DAILY PO 02/11/25 09:00 02/14/25 09:59 DC 02/13/25 10:52 20 MG Furosemide (LASix 20MG TAB) 20 mg Q12H PO 02/16/25 09:00 02/16/25 10:21 DC 02/16/25 08:19 20 MG Furosemide (LASix 20MG VIAL) 20 mg ONCE IV 02/10/25 17:00 02/10/25 21:00 DC 02/10/25 17:00 20 MG Furosemide (LASix 20MG VIAL) 20 mg ONCE IV 02/11/25 09:00 02/11/25 07:43 DC Furosemide (LASix 20MG VIAL) 20 mg Q12H IV 02/15/25 09:00 02/16/25 08:59 DC 02/15/25 20:16 20 MG Furosemide 100 mg/ Sodium Chloride 100 ml @ 0 mls/hr PROTOCOL IV 02/16/25 10:30 03/18/25 10:29 02/19/25 11:35 2.5 MLS/HR Glucagon (Glucagon 1mg Kit) 1 mg AD PRN IM HYPOGLYCEMIA PROTOCOL 02/10/25 05:00 02/14/25 10:17 DC Glucagon (Glucagon 1mg Kit) 1 mg AD PRN IM HYPOGLYCEMIA PROTOCOL 02/14/25 10:00 03/16/25 09:59 Heparin Sodium (Porcine) (HEParin 5,000 UNIT VIAL) *calculation based on ACTUAL B... AD PRN IV HEPARIN PROTOCOL 02/12/25 21:00 02/14/25 09:59 DC 02/12/25 20:16 4,000 UNIT Heparin Sodium/ Dextrose 250 ml @ 0 mls/hr PROTOCOL IV 02/10/25 03:00 02/10/25 17:22 DC 02/10/25 03:00 16.2 MLS/HR Heparin Sodium/ Dextrose 250 ml @ 0 mls/hr Q6H IV 02/11/25 06:30 02/14/25 09:59 DC 02/13/25 13:01 9 MLS/HR Home Med (Home Medication) (Brimonidine-Timolol 0.2%/0.5% EYE DROPS) DAILY OP 02/18/25 09:00 03/20/25 08:59 02/20/25 08:26 1 EACH Insulin Glargine (LANtus 100 UNITS/ML 10 ML VIAL) 12 units DAILY08 SQ 02/13/25 08:00 02/14/25 09:59 DC 02/13/25 10:51 12 UNITS Insulin Glargine (LANtus 100 UNITS/ML 10 ML VIAL) 15 units DAILY08 SQ 02/11/25 08:00 02/13/25 05:24 DC 02/12/25 08:54 15 UNITS Insulin Human Regular (humuLIN R 100 UNIT/ML 3ML) 3 unit TIDAC SQ 02/12/25 07:30 02/14/25 09:59 DC 02/12/25 16:31 3 UNIT Insulin Human Regular (humuLIN R 100 UNIT/ML 3ML) INSULIN SLIDING SCAL... ACHS SQ 02/16/25 11:30 03/18/25 11:29 02/19/25 20:45 2 UNIT Insulin Human Regular (humuLIN R 100 UNIT/ML 3ML) INSULIN SLIDING SCAL... Q4H SQ 02/10/25 05:00 02/10/25 11:10 DC 02/10/25 09:15 6 UNIT Insulin Human Regular (humuLIN R 100 UNIT/ML 3ML) INSULIN SLIDING SCAL... Q6H6 SQ 02/10/25 12:00 02/14/25 09:59 DC 02/11/25 17:29 2 UNIT Insulin Human Regular 100 unit/ Sodium Chloride 100 ml @ 0 mls/hr AD IV 02/14/25 10:00 02/16/25 09:59 DC 02/15/25 06:30 3 MLS/HR Lactulose (Constulose 20gm/ 30ml Udcup) 20 gm BID PRN PO CONSTIPATION 02/14/25 10:00 03/16/25 09:59 Latanoprost (Xalatan) 1 DROP FOR EACH EYE HS OP 02/17/25 21:00 03/19/25 20:59 02/19/25 22:55 1 DROP Magnesium Hydroxide (Milk Of Magnesium 30ml) 30 ml DAILY PRN PO CONSTIPATION 02/14/25 10:00 03/16/25 09:59 Magnesium Sulfate 50 ml @ 12.5 mls/hr AD PRN IV MAG LEVEL LESS THAN 2.0 02/14/25 10:00 03/16/25 09:59 02/20/25 08:30 12.5 MLS/HR Magnesium Sulfate 50 ml @ 0 mls/hr PROTOCOL PRN IV OTHER [SEE ORDER COMMENTS] 02/10/25 05:00 02/14/25 10:17 DC 02/12/25 07:13 25 MLS/HR Metoprolol Tartrate (loprESSOR) 12.5 mg BID PO 02/12/25 09:00 02/14/25 09:59 DC 02/14/25 06:44 12.5 MG Metoprolol Tartrate (loprESSOR) 12.5 mg BID PO 02/16/25 09:00 03/18/25 08:59 Morphine Sulfate (morPHINE 2MG SYG) 0.5 mg Q2H PRN IV MODERATE PAIN (4-6) IF NPO 02/14/25 10:00 02/15/25 09:59 DC Morphine Sulfate (morPHINE 2MG SYG) 1 mg Q2H PRN IV SEVERE PAIN (7-10) IF NPO 02/14/25 10:30 02/19/25 13:29 DC 02/14/25 14:23 1 MG Nitroglycerin (Nitrostat) 0.4 mg PROTOCOL PRN SL CHEST PAIN 02/10/25 05:00 02/14/25 09:59 DC Nitroglycerin/ Dextrose 0 ml @ 0 mls/hr AD IV 02/14/25 10:00 02/17/25 09:59 DC Norepinephrine Bitartrate 250 ml @ 0 mls/hr AD PRN IV TITRATE 02/14/25 06:30 03/16/25 06:29 02/17/25 01:06 1.9 MLS/HR Norepinephrine Bitartrate 250 ml @ 0 mls/hr AD PRN IV TITRATE 02/14/25 07:00 02/14/25 06:51 DC Norepinephrine Bitartrate 8 mg/ Dextrose 250 ml @ 0 mls/hr AD PRN IV POST-OP CARDIOVASCULAR ORDERS 02/14/25 10:00 02/14/25 10:14 DC Ondansetron HCl (zoFRAN 4MG INJ) 4 mg Q6H PRN IV NAUSEA/VOMITING 02/10/25 05:00 02/14/25 10:17 DC Ondansetron HCl (zoFRAN 4MG INJ) 4 mg Q6H PRN IV NAUSEA/VOMITING 02/14/25 10:00 03/16/25 09:59 Pharmacy Profile Note (Pharmacy Communication) 1 each ONCE MISC 02/14/25 18:00 02/14/25 18:27 DC Potassium Phosphate 250 ml @ 42 mls/hr AD PRN IV LOW PHOS LEVEL 02/14/25 10:00 03/16/25 09:59 Potassium Chloride 100 ml @ 100 mls/hr AD PRN IV POTASSIUM PROTOCOL 02/10/25 05:00 02/15/25 06:27 DC 02/15/25 05:43 100 MLS/HR Potassium Chloride 100 ml @ 100 mls/hr AD PRN IV HYPOKALEMIA 02/14/25 10:00 03/16/25 09:59 02/20/25 08:15 100 MLS/HR Potassium Chloride (K-Dur/Klor-Con 20meq) 20 meq AD PRN PO POTASSIUM PROTOCOL 02/10/25 05:00 03/12/25 04:59 02/18/25 20:18 20 MEQ Potassium Chloride (K-Dur/Klor-Con 20meq) 20 meq BID PO 02/19/25 10:30 03/21/25 10:29 02/19/25 20:32 20 MEQ Potassium Chloride (KCl 10% Elixir 20meq/15ml) 20 meq AD PRN PO POTASSIUM PROTOCOL 02/10/25 05:00 03/12/25 04:59 02/17/25 05:52 20 MEQ Propofol 100 ml @ 0 mls/hr AD PRN IV SEDATION 02/14/25 10:00 02/18/25 09:59 DC Sacubitril/ Valsartan (Entresto 24 Mg-26 Mg Tablet) 0.5 each BID PO 02/10/25 21:00 02/14/25 09:59 DC 02/13/25 21:11 0.5 EACH Sodium Bicarbonate 25 meq/Dextrose 1,025 ml @ 0 mls/hr Q0M IV 02/14/25 18:00 03/16/25 17:59 02/18/25 13:03 9.9 MLS/HR Sodium Bicarbonate (Sodium Bicarb 50meq 50ml Vial) 50 meq AD PRN IV OTHER[SEE DOSING INSTRUCTIONS] 02/14/25 10:00 02/17/25 09:59 DC 02/16/25 15:25 50 MEQ Sodium Chloride 500 ml @ 0 mls/hr AD IV 02/14/25 10:00 03/16/25 09:59 Sodium Chloride 1,000 ml @ 10 mls/hr ONCE IV 02/14/25 10:00 02/15/25 09:59 DC Sodium Chloride 1,000 ml @ 100 mls/hr Q10H IV 02/10/25 05:00 02/10/25 17:22 DC 02/10/25 14:20 100 MLS/HR Sodium Chloride (NS Flush 10ml) 10 ml Q8H PRN IVP IV LINE FLUSH 02/14/25 10:00 03/16/25 09:59 Spironolactone (Aldactone 25mg) 25 mg DAILY PO 02/10/25 14:30 02/14/25 09:59 DC 02/13/25 10:52 25 MG Tramadol HCl (UltRAM) 25 mg Q6H PRN PO MODERATE PAIN (4-6) 02/14/25 10:00 02/19/25 09:59 DC Tramadol HCl (UltRAM) 50 mg Q6H PRN PO SEVERE PAIN (7-10) 02/14/25 10:00 02/19/25 09:59 DC Vancomycin HCl 250 ml @ 125 mls/hr Q12H IV 02/18/25 11:30 02/28/25 11:29 Hold 02/19/25 11:20 125 MLS/HR Vancomycin HCl (Vancomycin Protocol) 1 each AD IV 02/18/25 11:00 03/04/25 10:59 Vasopressin 40 units/Sodium Chloride 40 ml @ 0 mls/hr PROTOCOL IV 02/14/25 13:00 03/16/25 12:59 02/14/25 22:11 1.8 MLS/HR DIAGNOSTICS / RADIOLOGY: [ ] ASSESSMENT: Chest pain rule out ACS: NSTEMI POA Suspected pneumonia findings on Chest X-ray Hyperglycemia secondary to uncontrolled diabetes POA Hyperlipidemia POA Medication noncompliance, POA Obesity POA [place]/Coronary artery disease with cardiac stent POA PLAN: NSTEMI POA: * EKG was done which revealed sinus rhythm heart rate 85 with atrial premature complex anterolateral infarct age indeterminate. Second EKG result revealed sinus rhythm heart rate 73 with left anterior fascicular block. Probable anterolateral infarct age indeterminate. Abnormal T consider ischemia lateral leads. * PERC score was one, Wells score was zero. Very low suspicion for Pulmonary Embolism. * Chest x-ray done on 02/17/25 show, small stable left pleural effusion with adjacent lung atelectasis. follow up x-ray from 02/19/25 show no interval change. * 2-D ECHO on 02/19/25 show LVEF of 25-30% with segmental akinesis (apical, api gisela lateral, anteroapical), LDL 89, BNP 488 * Troponin trends 21>[id number] * Left heart catheterization revealed severe three-vessel CAD with occluded mid LAD, 90% proximal left circumflex, 95% distal RCA, and 90% ostial PDA. * As per CT surgeon recommendations Entresto 0.5 each, Aldactone 25mg, Jardiance 10mg were held. 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 * On aspirin 81 mg p.o. * Continue patient on Lasix drip, 2.5 currently. Total output 2675 versus total input 2206. * Continuing on Epinephrine drip. * Impella setting maintained at P3. Wean it down as recommended by CTS, possible tomorrow. Suspected pneumonia findings on Chest X-ray * Chest x-ray done on 02/16/25 show diffuse airspace disease of the left lung, predominantly involving the left lower zone, could be due to an infection or atelectasis. Questionable left pleural effusion. * Chest x-ray done on 02/17/25 show, small stable left pleural effusion with adjacent lung atelectasis. follow up x-ray from 02/19/25 show no interval change. * Patient continuing on Vancomycin (day5) and cefepime was discontinued on 02/19/25 suspecting the cause of his confusion and agitation and Started on Zosyn from 02/20/25 * WBC count on (02/20/25) - 14 * Will monitor with daily labs. Hyperglycemia secondary to uncontrolled diabetes POA: * HbA1c 13.9, blood glucose 181 * Following the Endocrinology recommendations. He is on Lantus 15 units, low- dose sliding scale insulin and Jardiance 10 mg * We will monitor blood glucose. Hypokalemia Hypomagnesemia * Potassium 3.6, magnesium 1.5 (02/20/25) * We will replete the electrolytes and monitor. * Keep potassium above 4 and magnesium above 2. * We will start Slow-Mag oral t.i.d. once and will keep monitoring magnesium le vels. Supportive measures * GI prophylaxis with Famotidine * DVT prophylaxis with SCD's ATTESTATION BY PHYSICIAN I have seen and examined the patient. I reviewed the documentation, medical decision making, and treatment plan as noted by the resident provider above. I agree with the findings and plan of care. Joe Jackman MD, SHAJI MD Feb 20, 2025 08:56
[2025-02-20] MEDS: ALBUMIN (HUMAN) 25% 50 ML IV SCH (09:14)
[2025-02-20] MEDS: EMPAGLIFLOZIN 10MG TABLET PO SCH (09:14)
[2025-02-20] MEDS: SPIRONOLACTONE 25 MG TAB PO SCH (09:15)
[2025-02-20 09:21] LABS: ABG BASE EXCESS 2.9 mmol/L (-2.0-3.0); ABG HCO3 26.7 mmol/L (21.0-28.0); ABG OXYGEN SATURATION 95.4 % (94.0-98.0); ABG PCO2 37 mmHg (35-48); ABG PH 7.471 (7.350-7.450); CARBON MONOXIDE 1.3 % (0.5-1.5); DEVICE COMMENT ALINE; PO2, ARTERIAL BG 79.3 mmHg (83.0-108.0); TEMPERATURE, CELSIUS BG 37.0 CELSIUS (35.5-37.0); VENT MODE, BG NC ARACELY RN (ROOM AIR)
[2025-02-20 09:43] LABS: IMMATURE GRANULOCYTE ABSOLUTE 1.60 K/uL (0-1); NUCLEATED RED BLOOD CELLS 0.3 % (0.0-0.19); PLATELET COUNT (AUTO) 225 K/uL (130-400); RED BLOOD CELL COUNT(AUTO) 2.83 MIL/uL (4.50-6.20); RED CELL DISTRIBUTION WIDTH 13.5 % (11.0-15.5); WHITE BLOOD COUNT (AUTO) 18.6 K/uL (4.8-10.8)
[2025-02-20 10:07] LABS: ASPARTATE AMINOTRANSFERASE 43.0 U/L (10-37); CREATININE 0.7 mg/dL (0.5-1.3); GLOMERULAR FILTR. RATE CALC 95.0 mL/min (>90); GLUCOSE,RANDOM 194.0 mg/dL (70-105); SODIUM SERUM 130.0 mmol/L (136-145); TOTAL PROTEIN, SERUM 5.2 g/dL (6.0-8.3); UREA NITROGEN, BLOOD 18.0 mg/dL (7-18)
[2025-02-20] MEDS ORDERED: PHARMACY COMMUNICATION MISC SCH (11:30)
--- NOTE | 2025-02-20 11:41 | PN ---
SUBJECTIVE: The patient is postop day 6 from an Impella supported coronary artery bypass grafting. This morning, the patient became acutely confused and combative trying to pull out his lines and the Impella ventricular assist device. He required placement on Precedex. The cloth classer felt this might be due to his cefepime and this was discontinued. OBJECTIVE: VITAL SIGNS: His vital signs reveal pulse 89, respirations are 27, blood pressure is 116/98. Oxygen saturation is 98% on room air. HEENT: Normocephalic, atraumatic. NECK: He has Impella catheters in his left neck. He has a right-sided central venous line. His Impella is at P3, giving him 1.7 liters per minute of flow. LUNGS: Reveal slightly decreased breath sounds on the left, otherwise they are clear. ABDOMEN: His abdomen reveals mild to moderate obesity. GENITOURINARY: De Jesus catheter in his bladder. EXTREMITIES: He has a left radial art line. He has SCDs and JIAN stockings on his lower extremities. LABORATORY DATA: His white cell count is 14,000, his hemoglobin is 7.6. BUN 16, creatinine 0.7, albumin 1.9. His echocardiogram yesterday, P2 was 25% to 30%. ASSESSMENT AND PLAN: * Status post Impella supported coronary artery bypass graft. Continue with aspirin. Change metoprolol to Coreg. Add Aldactone and Jardiance. Change Lasix script to Lasix 20 mg twice a day and plan Impella removal tomorrow morning. * Hypercholesterolemia. Lipitor 40 mg at bedtime and low cholesterol, cardiac diet. * Hypoalbunemia. We will reschedule doses of 25% albumin twice a day. * Deep venous thrombosis prophylaxis, Lovenox 30 mg subcutaneous daily. Time spent 30 minutes. Patient is critically ill in the ICU. TID: [id number] RECEIPT: [id number]
[2025-02-20] MEDS: ZOSYN 3.375GM+NS 50ML 50 ML IVPB SCH (12:26)
--- NOTE | 2025-02-20 14:10 | NUR ---
PT COMBATIVE AND AGITATED PT BECAME AGITATED AND COMBATIVE, TRYING TO HOT 1;1 SITTER AND RN. PT DISLODGED ARTERIAL LINE. 10 MIN MANUAL PRESSURE APPLIED. DR FRIED CALLED AND NOTIFIED. NEW ORDERS RECEIVED.
--- NOTE | 2025-02-20 17:50 | PN ---
[facility] PROGRESS NOTE Date Patient Seen: Feb 20, 2025 Time of Visit: 13:43 Supervising Physician: CINDY Primary Care Physician: KELLEY ENCINAS MD Outpatient Specialists: Inpatient Consults: CINYD PROBLEM LIST: CAD, status post CABG x3 Impella and a intra-aortic balloon pump support Type 2 diabetes Congested heart failure EF 20% INTERVAL HISTORY: Patient was seen and examined, noted to be encephalopathic started on precedex, decision was made to stop Cefepime patient is s/p CABG, hx of Impella, Ol to blace back on Epi Drip due to hypotension. Patient mental status has improved. No report of fever, chills, nausea or vomiting. is at the bedside. Plan: He was started on Zosyn. Stop Cefepime Follow CT surgeon recs/protocol I&Os Weaning pressors PT/OT when able Total critical care time spent 45 minutes, time excludes any procedures or educational time REVIEW OF SYSTEMS: 12 point ROS reviewed with patient. Pertinent positives mentioned above. Otherwise negative. PHYSICAL EXAM: GENERAL: Patient comfortable in bed, HEENT: EOMI, Sclera non icteric, moist mucosa NECK: Supple, no JVD, trachea midline LUNGS: Clear breath sounds bilaterally. No wheezes HEART: Regular rate and rhythm. Normal S1 and S2, without murmurs ABD: Abdomen soft, nontender. Bowel sounds present EXT: No clubbing cyanosis or edema NEURO: Awake alert and oriented Vital Signs (last 8hr) Date Time Temp Pulse Resp B/P (MAP) Pulse Ox O2 Delivery O2 Flow Rate FiO2 02/20/25 17:00 79 16 99 115/75 (88) 02/20/25 16:45 78 15 98 125/76 (92) 02/20/25 16:30 78 16 100 125/79 (94) 02/20/25 16:15 78 15 100 114/74 (87) 02/20/25 16:00 98.1 78 15 100 108/74 (85) 02/20/25 16:00 100 Nasal Cannula* 2 28 02/20/25 16:00 98.1 02/20/25 15:45 78 15 100 120/73 (89) 02/20/25 15:30 78 15 100 120/73 (89) 02/20/25 15:15 78 16 100 114/75 (88) 02/20/25 15:00 79 17 99 118/77 (91) 02/20/25 14:45 80 17 100 114/67 (83) 02/20/25 14:30 79 16 100 124/84 (97) 02/20/25 14:15 80 18 100 114/70 (85) 02/20/25 14:00 79 22 100 106/63 (77) 02/20/25 13:45 80 16 100 02/20/25 13:30 79 16 114/55 (74) 99 02/20/25 13:15 82 17 95/51 (66) 100 102/70 (81) 02/20/25 13:00 78 17 93/58 (70) 100 103/62 (76) 02/20/25 12:45 78 19 93/58 (70) 100 142/84 (103) 02/20/25 12:30 77 17 115/59 (77) 100 108/69 (82) 02/20/25 12:15 77 15 120/62 (81) 100 102/55 (71) 02/20/25 12:00 97.7 02/20/25 12:00 100 Nasal Cannula* 2 28 02/20/25 12:00 97.7 77 12 120/62 (81) 100 114/77 (89) 02/20/25 11:45 74 18 103/58 (73) 100 96/60 (72) 02/20/25 11:35 75 19 N/Cannula Low lpm 2.0 28 02/20/25 11:30 74 16 114/61 (78) 100 102/68 (79) 02/20/25 11:15 75 23 99/56 (70) 100 90/59 (69) 02/20/25 11:00 75 17 102/57 (72) 100 91/64 (73) 02/20/25 10:45 74 17 103/56 (72) 100 95/63 (74) 02/20/25 10:30 76 19 103/59 (74) 100 95/65 (75) 02/20/25 10:15 77 17 115/63 (80) 100 103/63 (76) 02/20/25 10:00 76 12 114/64 (81) 100 108/64 (79) 02/20/25 09:45 75 16 104/71 (82) 100 117/73 (88) LABS: Hematology Labs: Test 02/20/25 09:27 Range/Units White Blood Count 18.6 #H 4.8-10.8 K/uL Red Blood Count 2.83 L 4.50-6.20 MIL/uL Hemoglobin 8.4 L 14.0-18.0 g/dL Hematocrit 24.6 L 42-54 % Mean Corpuscular Volume 86.9 79-99 fL Mean Corpuscular Hemoglobin 29.7 27.0-33.0 pg Mean Corpuscular Hemoglobin Concent 34.1 32.0-36.0 g/dL Red Cell Distribution Width 13.5 11.0-15.5 % Platelet Count 225 # 130-400 K/uL Mean Platelet Volume 11.1 H 7.5-10.5 fL Immature Granulocyte % (Auto) 8.6 H 0-1 % Neutrophils (%) (Auto) 63.4 40.0-77.0 % Lymphocytes (%) (Auto) 15.1 L 21.0-51.0 % Monocytes (%) (Auto) 10.2 3.0-13.0 % Eosinophils (%) (Auto) 2.1 0.0-8.0 % Basophils (%) (Auto) 0.6 0.0-5.0 % Neutrophils # (Auto) 11.8 H 1.8-7.7 K/uL Lymphocytes # (Auto) 2.8 1.0-4.8 K/uL Monocytes # (Auto) 1.9 H 0.1-1.0 K/uL Eosinophils # (Auto) 0.39 0.00-0.70 K/uL Basophils # (Auto) 0.11 0.00-0.20 K/uL Absolute Immature Granulocyte (auto 1.60 H 0-1 K/uL Nucleated Red Blood Cells 0.3 H 0.0-0.19 % Chemistry Labs: Test 02/20/25 16:43 02/20/25 09:27 02/20/25 04:23 Range/Units Whole Blood Glucose 178 H 70-110 MG/DL Sodium Level 130 L 136-145 mmol/L Potassium Level 4.2 3.5-5.1 mmol/L Chloride Level 94 L 101-111 mmol/L Carbon Dioxide Level 26 21-32 mmol/L Blood Urea Nitrogen 18 7-18 mg/dL Creatinine 0.7 0.5-1.3 mg/dL Glomerular Filtration Rate Calc 95 >90 mL/min Random Glucose 194 #H 70-105 mg/dL Total Calcium 7.5 L 8.5-10.1 mg/dL Total Bilirubin 1.5 H 0.2-1.0 mg/dL Aspartate Amino Transf (AST/SGOT) 43 H 10-37 U/L Alanine Aminotransferase (ALT/SGPT) 27 12-78 U/L Alkaline Phosphatase 65 50-136 U/L Ammonia 26 11-32 umol/L Total Protein 5.2 L 6.0-8.3 g/dL Albumin 2.2 L 3.5-5.0 g/dL Thyroid Stimulating Hormone (TSH) 4.34 #H 0.36-3.74 uIU/mL Magnesium Level 1.50 L 1.80-2.40 mg/dL DIAGNOSTICS / RADIOLOGY RESULTS: [ ] PLAN NEURO: Minimize central acting medications as possible. Maintain fall precautions, adequate lighting during the day PULMONARY: Supplemental 02 as needed. Maintain aspiration precautions at all times CARDIOVASCULAR: Follow hemodynamics. Vital signs per facility protocol GI & NUTRITION: Continue with nutritional support. Continue stool softeners and laxatives as needed. KIDNEYS & ELECTROLYTES: Strict monitoring of intake, output and overall fluid balance. Avoid nephrotoxic medications to the extent possible. Medications to be dosed according to renal function. Monitor electrolytes and replace as needed ENDOCRINE: Maintain blood glucose between 100-180 at all times. Hypoglycemia protocol in place INFECTIOUS DISEASE: Trend temperature, WBC and procalcitonin level Follow cultures, deescalate antibiotics as soon as possible. Panculture if new onset fever ONCOLOGY/HEMATOLOGY/COAGULATION: Monitor for s/s of bleeding Monitor hemoglobin, coagulation studies as needed SKIN: Pressure ulcer prevention per facility protocol Specialty mattress ORTHO/REHAB: Continue PT/OT Prophylaxis: Continue GI and DVT prophylaxis Code Status: Full Resuscitation Disposition: TBD ATTESTATION BY PHYSICIAN Documentation assistance provided by a scribe, information recorded by the scribe was done at my direction and has been reviewed and validated by me." AJITH SCANLON MD I personally scribed for AJITH SCANLON MD ([email or web address]) on 02/20/25 at 17:50. Electronically submitted by Lydia Bearden ([id number]). AJITH SCANLON MD Feb 20, 2025 17:50
--- NOTE | 2025-02-20 18:00 | PN ---
INFECTIOUS DISEASE PROGRESS NOTE Date of Service: Feb 20, 2025 SUBJECTIVE: This 74-year-old male patient who was seen at bedside in room 210. Patient is awake, alert, oriented to person only but able to recognize his who is present at bedside. Per report patient got very delirium throughout the night and this morning. The cefepime has been discontinued and will be started on Zosyn by the critical Care team. The vancomycin is currently on hold due to high vanco trough. Remains on oxygen support via nasal cannula at 2 L/min. Patient is s/p CABG on 02/14/2025. The WBC still elevated this morning at 18.6 but no fever. We will continue to follow patient's care. PHYSICAL EXAM EYES: Anicteric. Pupils equal and reactive. HENT: No oral thrush seen, moist Oral mucosa. NECK: Supple, no JVD or thyromegaly. LUNGS: Good air entry. diminished breath sounds. CHEST: Chest tube. Sternal incision. CARDIOVASCULAR: S1, S2 regular. No murmur heard. ABDOMEN: Soft, non tender, bowel sounds present. CENTRAL NERVOUS SYSTEM: Awake, alert, oriented. SKIN: No rashes, no swelling. Vein harvesting surgical incisions to bilateral lower extremities.. LYMPHATICS: No peripheral lymphadenopathy. MUSCULOSKELETAL: No joint swelling, erythema or tenderness. EXTREMITIES: No cyanosis or clubbing. 1+ edema to bilateral feet. BACK: No deformity, no pressure ulcer. GENITOURINARY: No dysuria or hematuria. De Jesus catheter. Vital Sign (Last 12 Hours) 02/20/25 02/20/25 02/20/25 02/20/25 06:00 06:07 06:15 06:30 Pulse 81 82 85 91 Resp 19 21 21 21 B/P (MAP) 80/66 (71) 77/66 (70) 91/75 (80) 144/123 (130) 98/59 (72) Pulse Ox 98 98 98 98 02/20/25 02/20/25 02/20/25 02/20/25 06:38 06:45 07:00 07:15 Pulse 90 89 90 87 Resp 23 27 23 22 B/P (MAP) 112/98 (103) 116/104 (108) 112/98 (103) 110/95 (100) 95/50 (65) 95/50 (65) 106/58 (74) Pulse Ox 98 98 02/20/25 02/20/25 02/20/25 02/20/25 07:30 07:45 08:00 08:00 Temp 98.4 Pulse 87 78 Resp 22 19 B/P (MAP) 100/80 (87) 83/72 (76) 116/67 (83) Pulse Ox 77 100 O2 Delivery Nasal Cannula* O2 Flow Rate 2 FiO2 28 02/20/25 02/20/25 02/20/25 02/20/25 08:00 08:15 08:30 08:45 Temp 98.4 Pulse 82 77 75 74 Resp 14 17 18 17 B/P (MAP) 111/64 (80) 92/82 (85) 92/82 (85) 103/91 (95) 96/70 (79) 109/48 (68) 88/42 (57) 82/50 (61) Pulse Ox 76 92 94 99 02/20/25 02/20/25 02/20/25 02/20/25 09:00 09:15 09:23 09:45 Pulse 74 79 85 75 Resp 36 17 19 16 B/P (MAP) 88/52 (64) 122/87 (99) 104/71 (82) 83/47 (59) 133/84 (100) 117/73 (88) Pulse Ox 99 100 100 O2 Delivery N/Cannula Low lpm O2 Flow Rate 2.0 FiO2 28 02/20/25 02/20/25 02/20/25 02/20/25 10:00 10:15 10:30 10:45 Pulse 76 77 76 74 Resp 12 17 19 17 B/P (MAP) 114/64 (81) 115/63 (80) 103/59 (74) 103/56 (72) 108/64 (79) 103/63 (76) 95/65 (75) 95/63 (74) Pulse Ox 100 100 100 100 02/20/25 02/20/25 02/20/25 02/20/25 11:00 11:15 11:30 11:35 Pulse 75 75 74 75 Resp 17 23 16 19 B/P (MAP) 102/57 (72) 99/56 (70) 114/61 (78) 91/64 (73) 90/59 (69) 102/68 (79) Pulse Ox 100 100 100 O2 Delivery N/Cannula Low lpm O2 Flow Rate 2.0 FiO2 28 02/20/25 02/20/25 02/20/25 02/20/25 11:45 12:00 12:00 12:00 Temp 97.7 97.7 Pulse 74 77 Resp 18 12 B/P (MAP) 103/58 (73) 120/62 (81) 96/60 (72) 114/77 (89) Pulse Ox 100 100 100 O2 Delivery Nasal Cannula* O2 Flow Rate 2 FiO2 28 02/20/25 02/20/25 02/20/25 02/20/25 12:15 12:30 12:45 13:00 Pulse 77 77 78 78 Resp 15 17 19 17 B/P (MAP) 120/62 (81) 115/59 (77) 93/58 (70) 93/58 (70) 102/55 (71) 108/69 (82) 142/84 (103) 103/62 (76) Pulse Ox 100 100 100 100 02/20/25 02/20/25 02/20/25 02/20/25 13:15 13:30 13:45 14:00 Pulse 82 79 80 79 Resp 17 16 16 22 B/P (MAP) 95/51 (66) 114/55 (74) 102/70 (81) 106/63 (77) Pulse Ox 100 99 100 100 02/20/25 02/20/25 02/20/25 02/20/25 14:15 14:30 14:45 15:00 Pulse 80 79 80 79 Resp 18 16 17 17 B/P (MAP) 114/70 (85) 124/84 (97) 114/67 (83) 118/77 (91) Pulse Ox 100 100 100 99 02/20/25 02/20/25 02/20/25 02/20/25 15:15 15:30 15:45 16:00 Temp 98.1 Pulse 78 78 78 Resp 16 15 15 B/P (MAP) 114/75 (88) 120/73 (89) 120/73 (89) Pulse Ox 100 100 100 02/20/25 02/20/25 02/20/25 02/20/25 16:00 16:00 16:15 16:30 Temp 98.1 Pulse 78 78 78 Resp 15 15 16 B/P (MAP) 108/74 (85) 114/74 (87) 125/79 (94) Pulse Ox 100 100 100 100 O2 Delivery Nasal Cannula* O2 Flow Rate 2 FiO2 28 02/20/25 02/20/25 16:45 17:00 Pulse 78 79 Resp 15 16 B/P (MAP) 125/76 (92) 115/75 (88) Pulse Ox 98 99 Intake & Output (last 24hrs) 02/19/25 02/19/25 02/20/25 15:00 23:00 07:00 Intake Total 925.2 ml 982.4 ml 294.9 ml Output Total 1000 ml 875 ml 850 ml Balance -74.8 ml 107.4 ml -555.1 ml LABS: Laboratory: Test 02/20/25 16:43 02/20/25 09:27 02/20/25 09:19 02/20/25 04:23 Range/Units Whole Blood Glucose 178 H 70-110 MG/DL White Blood Count 18.6 #H 4.8-10.8 K/uL Red Blood Count 2.83 L 4.50-6.20 MIL/uL Hemoglobin 8.4 L 14.0-18.0 g/dL Hematocrit 24.6 L 42-54 % Mean Corpuscular Volume 86.9 79-99 fL Mean Corpuscular Hemoglobin 29.7 27.0-33.0 pg Mean Corpuscular Hemoglobin Concent 34.1 32.0-36.0 g/dL Red Cell Distribution Width 13.5 11.0-15.5 % Platelet Count 225 # 130-400 K/uL Mean Platelet Volume 11.1 H 7.5-10.5 fL Immature Granulocyte % (Auto) 8.6 H 0-1 % Neutrophils (%) (Auto) 63.4 40.0-77.0 % Lymphocytes (%) (Auto) 15.1 L 21.0-51.0 % Monocytes (%) (Auto) 10.2 3.0-13.0 % Eosinophils (%) (Auto) 2.1 0.0-8.0 % Basophils (%) (Auto) 0.6 0.0-5.0 % Neutrophils # (Auto) 11.8 H 1.8-7.7 K/uL Lymphocytes # (Auto) 2.8 1.0-4.8 K/uL Monocytes # (Auto) 1.9 H 0.1-1.0 K/uL Eosinophils # (Auto) 0.39 0.00-0.70 K/uL Basophils # (Auto) 0.11 0.00-0.20 K/uL Absolute Immature Granulocyte (auto 1.60 H 0-1 K/uL Nucleated Red Blood Cells 0.3 H 0.0-0.19 % Sodium Level 130 L 136-145 mmol/L Potassium Level 4.2 3.5-5.1 mmol/L Chloride Level 94 L 101-111 mmol/L Carbon Dioxide Level 26 21-32 mmol/L Blood Urea Nitrogen 18 7-18 mg/dL Creatinine 0.7 0.5-1.3 mg/dL Glomerular Filtration Rate Calc 95 >90 mL/min Random Glucose 194 #H 70-105 mg/dL Total Calcium 7.5 L 8.5-10.1 mg/dL Total Bilirubin 1.5 H 0.2-1.0 mg/dL Aspartate Amino Transf (AST/SGOT) 43 H 10-37 U/L Alanine Aminotransferase (ALT/SGPT) 27 12-78 U/L Alkaline Phosphatase 65 50-136 U/L Ammonia 26 11-32 umol/L Total Protein 5.2 L 6.0-8.3 g/dL Albumin 2.2 L 3.5-5.0 g/dL Thyroid Stimulating Hormone (TSH) 4.34 #H 0.36-3.74 uIU/mL Blood Gas Specimen Type Arterial Arterial Blood pH 7.471 H 7.350-7.450 Arterial Blood Partial Pressure CO2 37 35-48 mmHg Arterial Blood Partial Pressure O2 79.3 L 83.0-108.0 mmHg Arterial Blood HCO3 26.7 21.0-28.0 mmol/L Arterial Blood Oxygen Saturation 95.4 94.0-98.0 % Arterial Blood Base Excess 2.9 -2.0-3.0 mmol/L Hemoglobin (Blood Gas) 9.5 L 13.5-17.5 g/dL Sodium (Blood Gas) 130 L 136-145 MMOL/L Bedside Potassium (Blood Gas) 4.4 3.4-4.5 MMOL/L Bedside Chloride (Blood Gas) 98 98-107 MMOL/L Bedside Glucose (Blood Gas) 198 H 65-95 MG/DL Bedside Ionized Calcium (Blood Gas) 1.06 L 1.15-1.33 MMOL/L Bedside Lactic Acid (Blood Gas) 1.40 H 0.36-0.75 MMOL/L Blood Gas Temperature 37.0 35.5-37.0 CELSIUS Blood Gas Flow-by 2.00 0.00-15.00 L/min Blood Gas Vent Mode CHANDLER SANON RN ROOM AIR FiO2 28.0 % Blood Gas Specimen Comment HIWOT Magnesium Level 1.50 L 1.80-2.40 mg/dL Test 02/19/25 22:20 Range/Units Vancomycin Level Trough 31.5 *H 10.0-20.0 UG/ML ASSESSMENT: Possible hospital-acquired pneumonia. Leukocytosis. 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 Postop anemia. Left Pleural effusion. Diabetes mellitus. Congenital heart failure EF of 20% PLAN: Cefepime has been discontinued. Started on Zosyn 3.375 g IV every 8 hours. Vancomycin is on hold due to elevated vanco trough. Continue GI prophylaxis. Continue on Lasix drip. Continue oxygen support. Monitor electrolytes. This case was reviewed and discussed with my supervising physician Dr. Mckeon and the above assessment and plan was formulated and agreed upon. ATTESTATION BY PHYSICIAN I have seen and examined the patient. I reviewed the documentation, medical decision making, and treatment plan as noted by the mid-level provider above. I agree with the findings and plan of care. BERENICE MCKEON MD, MIRTA L NURSE TRANSPLANT Feb 20, 2025 18:00
--- NOTE | 2025-02-20 18:37 | PN ---
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 His remembers that I had cared for him after his 1st myocardial infarct but apparently he subsequently got lost to follow up. Currently both sides are ventilated, no rales or rhonchi, patient is in fact delirious and his and daughter can not understand his words when he tries to speak. First and second heart sounds are auscultated but soft. Mild generalized edema. Impella in place. I have no new in size to offer nor any change of treatment to recommend, apart from attempts to wean an Impella that has been in place for six days. This has already been on the agenda, but because the patient was less stable today removal was deferred. Vitals/Labs Vital Signs Date Time Temp Pulse Resp B/P (MAP) Pulse Ox O2 Delivery O2 Flow Rate FiO2 02/20/25 17:00 79 16 99 115/75 (88) 02/20/25 16:00 98.1 02/20/25 16:00 Nasal Cannula* 2 28 Laboratory Tests 02/20/25 04:23 02/20/25 09:27 Medications Current Medications Sodium Chloride 1,000 ml @ 0 mls/hr ONCE ONCE IV; Start 02/10/25 at 01:00; Stop 02/10/25 at 00:46; Status DC Sodium Chloride 500 ml @ 0 mls/hr ONCE ONCE IV Last administered on 02/10/25at 00:53; Start 02/10/25 at 01:00; Stop 02/10/25 at 01:01; Status DC Insulin Human Regular 5 unit ONCE ONCE IV Last administered on 02/10/25at 01:30; Start 02/10/25 at 01:30; Stop 02/10/25 at 01:31; Status DC Aspirin 325 mg ONCE ONCE PO Last administered on 02/10/25at 02:32; Start 02/10/25 at 02:30; Stop 02/10/25 at 02:31; Status DC Heparin Sodium/ Dextrose 250 ml @ 0 mls/hr PROTOCOL IV Last administered on 02/10/25at 03:00; Start 02/10/25 at 03:00; Stop 02/10/25 at 17:22; Status DC Heparin Sodium (Porcine) 7,000 unit ONCE ONCE SQ Last administered on 02/10/25at 02:55; Start 02/10/25 at 03:00; Stop 02/10/25 at 03:01; Status DC Acetaminophen 650 mg Q6H PRN PO Last administered on 02/12/25at 17:13; Start 02/10/25 at 05:00; Stop 02/14/25 at 10:17; Status DC Acetaminophen 650 mg Q4H PRN PO; Start 02/10/25 at 05:00; Stop 02/14/25 at 10:05; Status DC Ondansetron HCl 4 mg Q6H PRN IV; Start 02/10/25 at 05:00; Stop 02/14/25 at 10:17; Status DC Nitroglycerin 0.4 mg PROTOCOL PRN SL; Start 02/10/25 at 05:00; Stop 02/14/25 at 09:59; Status DC Famotidine 20 mg DAILY PO Last administered on 02/13/25at 10:53; Start 02/10/25 at 09:00; Stop 02/14/25 at 09:59; Status DC Sodium Chloride 1,000 ml @ 100 mls/hr Q10H IV Last administered on 02/10/25at 14:20; Start 02/10/25 at 05:00; Stop 02/10/25 at 17:22; Status DC Insulin Human Regular INSULIN SLIDING SCAL... Q4H SQ Last administered on 02/10/25at 09:15; Start 02/10/25 at 05:00; Stop 02/10/25 at 11:10; Status DC Dextrose 50 ml AD PRN IV; Start 02/10/25 at 05:00; Stop 02/14/25 at 10:17; Status DC Glucagon 1 mg AD PRN IM; Start 02/10/25 at 05:00; Stop 02/14/25 at 10:17; Status DC Magnesium Sulfate 50 ml @ 0 mls/hr PROTOCOL PRN IV Last administered on 02/12/25at 07:13; Start 02/10/25 at 05:00; Stop 02/14/25 at 10:17; Status DC Potassium Chloride 100 ml @ 100 mls/hr AD PRN IV Last administered on 02/15/25at 05:43; Start 02/10/25 at 05:00; Stop 02/15/25 at 06:27; Status DC Potassium Chloride 20 meq AD PRN PO Last administered on 02/17/25at 05:52; Start 02/10/25 at 05:00; Stop 03/12/25 at 04:59 Potassium Chloride 20 meq AD PRN PO Last administered on 02/18/25at 20:18; Start 02/10/25 at 05:00; Stop 03/12/25 at 04:59 Aspirin 81 mg DAILY PO Last administered on 02/19/25at 08:13; Start 02/10/25 at 09:00; Stop 03/12/25 at 08:59 Insulin Human Regular INSULIN SLIDING SCAL... Q6H6 SQ Last administered on 02/11/25at 17:29; Start 02/10/25 at 12:00; Stop 02/14/25 at 09:59; Status DC Clopidogrel Bisulfate 600 mg ONCE PO Last administered on 02/10/25at 14:19; Start 02/10/25 at 14:00; Stop 02/10/25 at 17:22; Status DC Aspirin 325 mg ONCE PO Last administered on 02/10/25at 14:32; Start 02/10/25 at 14:30; Stop 02/10/25 at 17:22; Status DC Sacubitril/ Valsartan 0.5 each BID PO Last administered on 02/13/25at 21:11; Start 02/10/25 at 21:00; Stop 02/14/25 at 09:59; Status DC Empaglifozin 10 mg DAILY PO Last administered on 02/13/25at 10:52; Start 02/10/25 at 14:30; Stop 02/14/25 at 09:59; Status DC Spironolactone 25 mg DAILY PO Last administered on 02/13/25at 10:52; Start 02/10/25 at 14:30; Stop 02/14/25 at 09:59; Status DC Furosemide 20 mg ONCE IV Last administered on 02/10/25at 17:00; Start 02/10/25 at 17:00; Stop 02/10/25 at 21:00; Status DC Furosemide 20 mg ONCE IV; Start 02/11/25 at 09:00; Stop 02/11/25 at 07:43; Status DC Lidocaine HCl 20 ml STK-MED ONCE .ROUTE; Start 02/10/25 at 15:22; Stop 02/10/25 at 15:23; Status DC Iohexol 35,000 mg STK-MED ONCE IV; Start 02/10/25 at 15:22; Stop 02/10/25 at 15:23; Status DC Iohexol 50 ml STK-MED ONCE IV; Start 02/10/25 at 15:22; Stop 02/10/25 at 15:23; Status DC Heparin Sodium (Porcine) 10,000 unit STK-MED ONCE .ROUTE; Start 02/10/25 at 15:23; Stop 02/10/25 at 15:23; Status DC Heparin Sodium/ Sodium Chloride 1,000 ml @ As Directed STK-MED ONCE IV; Start 02/10/25 at 15:23; Stop 02/10/25 at 15:23; Status DC Nitroglycerin 50 mg STK-MED ONCE .ROUTE; Start 02/10/25 at 15:23; Stop 02/10/25 at 15:23; Status DC Heparin Sodium/ Sodium Chloride 500 ml @ As Directed STK-MED ONCE IV; Start 02/10/25 at 15:35; Stop 02/10/25 at 15:35; Status DC Fentanyl Citrate 100 mcg STK-MED ONCE .ROUTE; Start 02/10/25 at 15:39; Stop 02/10/25 at 15:40; Status DC Midazolam HCl 2 mg STK-MED ONCE .ROUTE; Start 02/10/25 at 15:40; Stop 02/10/25 at 15:40; Status DC Bivalirudin 250 mg STK-MED ONCE IV; Start 02/10/25 at 16:15; Stop 02/10/25 at 16:15; Status DC Heparin Sodium (Porcine) 7,000 unit ONCE ONCE IV Last administered on 02/11/25at 05:46; Start 02/11/25 at 05:30; Stop 02/11/25 at 05:31; Status DC Heparin Sodium/ Dextrose 250 ml @ 0 mls/hr Q6H IV Last administered on 02/13/25at 13:01; Start 02/11/25 at 06:30; Stop 02/14/25 at 09:59; Status DC Clopidogrel Bisulfate 75 mg DAILY PO; Start 02/11/25 at 09:00; Stop 02/11/25 at 07:28; Status DC Insulin Glargine 15 units DAILY08 SQ Last administered on 02/12/25at 08:54; Start 02/11/25 at 08:00; Stop 02/13/25 at 05:24; Status DC Furosemide 20 mg DAILY PO Last administered on 02/13/25at 10:52; Start 02/11/25 at 09:00; Stop 02/14/25 at 09:59; Status DC Insulin Human Regular 3 unit TIDAC SQ Last administered on 02/12/25at 16:31; Start 02/12/25 at 07:30; Stop 02/14/25 at 09:59; Status DC Metoprolol Tartrate 12.5 mg BID PO Last administered on 02/14/25at 06:44; Start 02/12/25 at 09:00; Stop 02/14/25 at 09:59; Status DC Potassium Chloride 40 meq BID ONCE PO; Start 02/12/25 at 21:00; Stop 02/12/25 at 21:01; Status DC Magnesium Chloride 64 mg Q8H6 ONCE PO; Start 02/12/25 at 14:00; Stop 02/12/25 at 14:01; Status DC Heparin Sodium (Porcine) *calculation based on ACTUAL B... AD PRN IV Last administered on 02/12/25at 20:16; Start 02/12/25 at 21:00; Stop 02/14/25 at 09:59; Status DC Insulin Glargine 12 units DAILY08 SQ Last administered on 02/13/25at 10:51; Start 02/13/25 at 08:00; Stop 02/14/25 at 09:59; Status DC Cefazolin Sodium 2 gm ONCALL IVP Last administered on 02/14/25at 08:50; Start 02/13/25 at 20:00; Stop 02/14/25 at 18:51; Status DC Epinephrine HCl 10 mg/Sodium Chloride 250 ml @ 0 mls/hr AD PRN IV Last administered on 02/20/25at 17:32; Start 02/14/25 at 06:30; Stop 03/16/25 at 06:29 Norepinephrine Bitartrate 250 ml @ 0 mls/hr AD PRN IV Last administered on 02/17/25at 01:06; Start 02/14/25 at 06:30; Stop 03/16/25 at 06:29 Aminocaproic Acid 31614 mg/Sodium Chloride 480 ml @ 0 mls/hr AD PRN IV; Start 02/14/25 at 06:30; Stop 03/16/25 at 06:29 Epinephrine HCl 10 mg/Sodium Chloride 250 ml @ 0 mls/hr AD PRN IV; Start 02/14/25 at 07:00; Stop 02/14/25 at 06:51; Status DC Norepinephrine Bitartrate 250 ml @ 0 mls/hr AD PRN IV; Start 02/14/25 at 07:00; Stop 02/14/25 at 06:51; Status DC Aminocaproic Acid 28431 mg/Sodium Chloride 480 ml @ 0 mls/hr AD PRN IV; Start 02/14/25 at 07:00; Stop 02/14/25 at 06:51; Status DC Cefazolin Sodium 2 gm STK-MED ONCE .ROUTE; Start 02/14/25 at 06:53; Stop 02/14/25 at 06:53; Status DC Nitroglycerin/ Dextrose 1 ml @ As Directed STK-MED ONCE .ROUTE; Start 02/14/25 at 07:00; Stop 02/14/25 at 07:00; Status DC Cefazolin Sodium 1 gm STK-MED ONCE .ROUTE Last administered on 02/14/25at 10:09; Start 02/14/25 at 07:37; Stop 02/14/25 at 07:38; Status DC Heparin Sodium/ Sodium Chloride 500 ml @ As Directed STK-MED ONCE IV; Start 02/14/25 at 07:38; Stop 02/14/25 at 07:38; Status DC Papaverine HCl 60 mg STK-MED ONCE .ROUTE Last administered on 02/14/25at 10:10; Start 02/14/25 at 07:38; Stop 02/14/25 at 07:38; Status DC Midazolam HCl 2 mg STK-MED ONCE .ROUTE; Start 02/14/25 at 08:14; Stop 02/14/25 at 08:14; Status DC Ketamine HCl 500 mg STK-MED ONCE IJ; Start 02/14/25 at 08:16; Stop 02/14/25 at 08:16; Status DC Protamine Sulfate 250 mg STK-MED ONCE IV; Start 02/14/25 at 08:17; Stop 02/14/25 at 08:17; Status DC Lidocaine HCl 100 mg STK-MED ONCE .ROUTE; Start 02/14/25 at 08:17; Stop 02/14/25 at 08:17; Status DC Heparin Sodium (Porcine) 10,000 unit STK-MED ONCE .ROUTE; Start 02/14/25 at 08:17; Stop 02/14/25 at 08:17; Status DC Epinephrine HCl 1 mg STK-MED ONCE .ROUTE; Start 02/14/25 at 08:17; Stop 02/14/25 at 08:17; Status DC Sodium Bicarbonate 200 ml @ As Directed STK-MED ONCE .ROUTE; Start 02/14/25 at 08:17; Stop 02/14/25 at 08:17; Status DC Norepinephrine Bitartrate 4 mg STK-MED ONCE IV; Start 02/14/25 at 08:17; Stop 02/14/25 at 08:17; Status DC Propofol 200 mg STK-MED ONCE IV; Start 02/14/25 at 08:19; Stop 02/14/25 at 08:19; Status DC Fentanyl Citrate 1,000 mcg STK-MED ONCE IJ; Start 02/14/25 at 08:19; Stop 02/14/25 at 08:19; Status DC Midazolam HCl 2 mg STK-MED ONCE .ROUTE; Start 02/14/25 at 08:20; Stop 02/14/25 at 08:20; Status DC Rocuronium [place] 50 mg STK-MED ONCE .ROUTE; Start 02/14/25 at 08:20; Stop 02/14/25 at 08:20; Status DC Acetaminophen 1,000 mg Q6H6 IV Last administered on 02/15/25at 12:14; Start 02/14/25 at 14:00; Stop 02/15/25 at 13:59; Status DC Aspirin 81 mg ONCE ONCE NG Last administered on 02/14/25at 13:56; Start 02/14/25 at 14:00; Stop 02/14/25 at 14:01; Status DC Docusate Sodium 100 mg BID PO Last administered on 02/18/25at 08:13; Start 02/14/25 at 21:00; Stop 03/16/25 at 20:59 Lactulose 20 gm BID PRN PO; Start 02/14/25 at 10:00; Stop 03/16/25 at 09:59 Furosemide 20 mg Q12H PO Last administered on 02/16/25at 08:19; Start 02/16/25 at 09:00; Stop 02/16/25 at 10:21; Status DC Furosemide 20 mg Q12H IV Last administered on 02/15/25at 20:16; Start 02/15/25 at 09:00; Stop 02/16/25 at 08:59; Status DC Atorvastatin Calcium 40 mg HS PO Last administered on 02/19/25at 20:32; Start 02/14/25 at 21:00; Stop 03/16/25 at 20:59 Enoxaparin Sodium 30 mg DAILY SQ Last administered on 02/19/25at 08:13; Start 02/17/25 at 09:00; Stop 03/19/25 at 08:59 Metoprolol Tartrate 12.5 mg BID PO; Start 02/16/25 at 09:00; Stop 02/20/25 at 09:01; Status DC Magnesium Hydroxide 30 ml DAILY PRN PO; Start 02/14/25 at 10:00; Stop 03/16/25 at 09:59 Dexmedetomidine/ Sodium Chloride 400 mcg PROTOCOL IV; Start 02/14/25 at 10:00; Stop 02/15/25 at 09:59; Status DC Acetaminophen 650 mg Q6H PRN PO; Start 02/14/25 at 10:00; Stop 03/16/25 at 09:59 Heparin Sodium (Porcine) 10,000 unit STK-MED ONCE .ROUTE; Start 02/14/25 at 10:00; Stop 02/14/25 at 10:00; Status DC Sodium Chloride 1,000 ml @ 10 mls/hr ONCE IV; Start 02/14/25 at 10:00; Stop 02/15/25 at 09:59; Status DC Sodium Chloride 10 ml Q8H PRN IVP; Start 02/14/25 at 10:00; Stop 03/16/25 at 09:59 Morphine Sulfate 0.5 mg Q2H PRN IV; Start 02/14/25 at 10:00; Stop 02/15/25 at 09:59; Status DC Morphine Sulfate 1 mg Q2H PRN IV Last administered on 02/14/25at 14:23; Start 02/14/25 at 10:30; Stop 02/19/25 at 13:29; Status DC Acetaminophen 650 mg Q4H PRN RC; Start 02/14/25 at 10:00; Stop 03/16/25 at 09:59 Ondansetron HCl 4 mg Q6H PRN IV; Start 02/14/25 at 10:00; Stop 03/16/25 at 09:59 Sodium Chloride 500 ml @ 0 mls/hr AD IV; Start 02/14/25 at 10:00; Stop 03/16/25 at 09:59 Nitroglycerin/ Dextrose 0 ml @ 0 mls/hr AD IV; Start 02/14/25 at 10:00; Stop 02/17/25 at 09:59; Status DC Propofol 100 ml @ 0 mls/hr AD PRN IV; Start 02/14/25 at 10:00; Stop 02/18/25 at 09:59; Status DC Norepinephrine Bitartrate 8 mg/ Dextrose 250 ml @ 0 mls/hr AD PRN IV; Start 02/14/25 at 10:00; Stop 02/14/25 at 10:14; Status DC Epinephrine HCl 10 mg/Sodium Chloride 250 ml @ 0 mls/hr AD PRN IV; Start 02/14/25 at 10:00; Stop 02/14/25 at 10:14; Status DC Aminocaproic Acid 28771 mg/Sodium Chloride 310 ml @ 25 mls/hr AD IV; Start 02/14/25 at 10:00; Stop 02/14/25 at 10:19; Status DC Calcium Gluconate 1 gm/Sodium Chloride 60 ml @ 200 mls/hr AD PRN IV Last administered on 02/20/25at 12:47; Start 02/14/25 at 10:00; Stop 03/16/25 at 09:59 Magnesium Sulfate 50 ml @ 12.5 mls/hr AD PRN IV Last administered on 02/20/25at 08:30; Start 02/14/25 at 10:00; Stop 03/16/25 at 09:59 Potassium Chloride 100 ml @ 100 mls/hr AD PRN IV Last administered on 02/20/25at 09:14; Start 02/14/25 at 10:00; Stop 03/16/25 at 09:59 Potassium Phosphate 250 ml @ 42 mls/hr AD PRN IV; Start 02/14/25 at 10:00; Stop 03/16/25 at 09:59 Albumin Human 250 ml @ 0 mls/hr AD PRN IV Last administered on 02/14/25at 14:42; Start 02/14/25 at 10:00; Stop 02/14/25 at 14:42; Status DC Acetaminophen 650 mg Q4H PRN PO; Start 02/14/25 at 10:00; Stop 03/16/25 at 09:59 Insulin Human Regular 100 unit/ Sodium Chloride 100 ml @ 0 mls/hr AD IV Last administered on 02/15/25at 06:30; Start 02/14/25 at 10:00; Stop 02/16/25 at 09:59; Status DC Cefazolin Sodium 2 gm Q8H IVPB Last administered on 02/15/25at 06:25; Start 02/14/25 at 15:00; Stop 02/15/25 at 07:01; Status DC Tramadol HCl 25 mg Q6H PRN PO; Start 02/14/25 at 10:00; Stop 02/19/25 at 09:59; Status DC Tramadol HCl 50 mg Q6H PRN PO; Start 02/14/25 at 10:00; Stop 02/19/25 at 09:59; Status DC Famotidine 20 mg BID IV Last administered on 02/15/25at 20:15; Start 02/14/25 at 21:00; Stop 02/16/25 at 07:58; Status DC Sodium Bicarbonate 50 meq AD PRN IV Last administered on 02/16/25at 15:25; Start 02/14/25 at 10:00; Stop 02/17/25 at 09:59; Status DC Dextrose 50 ml AD PRN IV; Start 02/14/25 at 10:00; Stop 03/16/25 at 09:59 Glucagon 1 mg AD PRN IM; Start 02/14/25 at 10:00; Stop 03/16/25 at 09:59 Dobutamine HCl 250 mg STK-MED ONCE .ROUTE; Start 02/14/25 at 10:28; Stop 02/14/25 at 10:28; Status DC Sodium Bicarbonate 50 ml @ As Directed STK-MED ONCE .ROUTE; Start 02/14/25 at 10:52; Stop 02/14/25 at 10:52; Status DC Sodium Bicarbonate 200 ml @ As Directed STK-MED ONCE .ROUTE; Start 02/14/25 at 10:53; Stop 02/14/25 at 10:53; Status DC Vasopressin 20 units STK-MED ONCE .ROUTE; Start 02/14/25 at 11:51; Stop 02/14/25 at 11:51; Status DC Rocuronium [place] 50 mg STK-MED ONCE .ROUTE; Start 02/14/25 at 12:14; Stop 02/14/25 at 12:14; Status DC Sodium Bicarbonate 100 ml @ As Directed STK-MED ONCE .ROUTE; Start 02/14/25 at 12:16; Stop 02/14/25 at 12:16; Status DC Vasopressin 40 units/Sodium Chloride 40 ml @ 0 mls/hr PROTOCOL IV Last administered on 02/14/25at 22:11; Start 02/14/25 at 13:00; Stop 03/16/25 at 12:59 Albumin Human 250 ml @ 0 mls/hr AD IV Last administered on 02/18/25at 10:27; Start 02/14/25 at 15:30; Stop 02/18/25 at 10:40; Status DC Calcium Gluconate 2 gm/Sodium Chloride 100 ml @ 0 mls/hr ONCE ONCE IV Last administered on 02/14/25at 16:15; Start 02/14/25 at 16:30; Stop 02/14/25 at 16:31; Status DC Pharmacy Profile Note 1 each ONCE MISC; Start 02/14/25 at 18:00; Stop 02/14/25 at 18:27; Status DC Sodium Bicarbonate 25 meq/Dextrose 1,025 ml @ 0 mls/hr Q0M IV Last administered on 02/18/25at 13:03; Start 02/14/25 at 18:00; Stop 03/16/25 at 17:59 Famotidine 20 mg BID PO Last administered on 02/16/25at 20:03; Start 02/16/25 at 09:00; Stop 02/17/25 at 07:09; Status DC Insulin Human Regular INSULIN SLIDING SCAL... ACHS SQ Last administered on 02/19/25at 20:45; Start 02/16/25 at 11:30; Stop 03/18/25 at 11:29 Cefepime HCl 1 gm Q12H IVPB Last administered on 02/19/25at 22:54; Start 02/16/25 at 10:30; Stop 02/20/25 at 08:16; Status DC Furosemide 100 mg/ Sodium Chloride 100 ml @ 0 mls/hr PROTOCOL IV Last administered on 02/19/25at 11:35; Start 02/16/25 at 10:30; Stop 02/20/25 at 09:01; Status DC Vancomycin HCl 500 ml @ 250 mls/hr ONCE ONCE IV Last administered on 02/16/25at 11:39; Start 02/16/25 at 12:00; Stop 02/16/25 at 13:59; Status DC Sodium Chloride 4 ml STK-MED ONCE IH Last administered on 02/16/25at 10:53; Start 02/16/25 at 10:44; Stop 02/16/25 at 10:44; Status DC Sodium Chloride 4 ml STK-MED ONCE IH Last administered on 02/16/25at 14:33; Start 02/16/25 at 14:26; Stop 02/16/25 at 14:26; Status DC Sodium Chloride 4 ml STK-MED ONCE IH Last administered on 02/16/25at 19:16; Start 02/16/25 at 18:32; Stop 02/16/25 at 18:32; Status DC Famotidine 20 mg DAILY PO Last administered on 02/19/25at 08:13; Start 02/17/25 at 09:00; Stop 03/18/25 at 08:59 Latanoprost 1 DROP FOR EACH EYE HS OP Last administered on 02/19/25at 22:55; Start 02/17/25 at 21:00; Stop 03/19/25 at 20:59 Home Med (Brimonidine-Timolol 0.2%/0.5% EYE DROPS) DAILY OP Last administered on 02/20/25at 08:26; Start 02/18/25 at 09:00; Stop 03/20/25 at 08:59 Albumin Human 250 ml @ 0 mls/hr AD IV; Start 02/18/25 at 10:30; Stop 02/20/25 at 09:03; Status DC Vancomycin HCl 1 each AD IV; Start 02/18/25 at 11:00; Stop 03/04/25 at 10:59 Vancomycin HCl 250 ml @ 125 mls/hr Q12H IV Last administered on 02/19/25at 11:20; Start 02/18/25 at 11:30; Stop 02/28/25 at 11:29; Status Hold Potassium Chloride 20 meq BID PO Last administered on 02/19/25at 20:32; Start 02/19/25 at 10:30; Stop 03/21/25 at 10:29 Dexmedetomidine/ Sodium Chloride 400 mcg STK-MED ONCE IV Last administered on 02/20/25at 07:08; Start 02/20/25 at 07:00; Stop 02/20/25 at 07:00; Status DC Dexmedetomidine/ Sodium Chloride 400 mcg PROTOCOL IV Last administered on 02/20/25at 18:08; Start 02/20/25 at 07:30; Stop 03/22/25 at 07:29 Carvedilol 3.125 mg BID PO; Start 02/20/25 at 21:00; Stop 03/22/25 at 20:59 Spironolactone 25 mg DAILY PO Last administered on 02/20/25at 09:15; Start 02/20/25 at 09:00; Stop 03/22/25 at 08:59 Empaglifozin 10 mg DAILY PO Last administered on 02/20/25at 09:14; Start 02/20/25 at 09:00; Stop 03/22/25 at 08:59 Albumin Human 50 ml @ 0 mls/hr Q12H9 IV Last administered on 02/20/25at 09:14; Start 02/20/25 at 09:00; Stop 02/25/25 at 08:59 Furosemide 20 mg Q12H IV; Start 02/20/25 at 09:00; Stop 03/22/25 at 08:59 Pharmacy Profile Note 1 each ONCE MISC; Start 02/20/25 at 11:30; Stop 02/20/25 at 11:19; Status DC Piperacillin Sod/ Tazobactam Sod 50 ml @ 12.5 mls/hr Q8H IVPB Last administered on 02/20/25at 12:26; Start 02/20/25 at 11:30; Stop 03/02/25 at 11:29 KIRSTIE KEITH MD Feb 20, 2025 18:37
--- NOTE | 2025-02-20 20:52 | PN ---
Endocrinology progress note DOS: 02/20/25 subjective: glucose are improving and s/p CABG procedure Home diabetic regimen: metformin 500 mg bid, Hba1c 13.9% PAST MEDICAL HISTORY: [ Diabetes, hyperlipidemia, GA/coronary artery disease ] PAST SURGICAL HISTORY: [ Cardiac stent, cholecystectomy and left inguinal hernia repair ] PAST SOCIAL HISTORY: [ Patient lives with . Patient admits he drinks two beer yesterday. Patient reports he occasional drinks alcohol denies cigarette and recreational drug use. ] FAMILY HISTORY: [ Diabetes, cardiovascular disease, asthma and cancer ] Coded Allergies: No Known Drug Allergies (Unverified Allergy, Unknown, 08/31/15) ASSESSMENT: Hyperglycemia secondary to uncontrolled diabetes POA Home diabetic regimen: metformin 500 mg bid, Hba1c 13.9% glucose is stable now. NSTEMI POA s/p CABG triple vessel disease s/p CABG Hyperlipidemia POA Obesity POA GA/Coronary artery disease with cardiac stent POA PLAN: OFF insulin drip Off lantus and regular insulin. Continue low dose sliding scale insulin. Monitor glucose q x 6 hourly. Keep glucose less than 180 mg/dl. Patient will need insulin at discharge Vitals/Labs Vital Signs Date Time Temp Pulse Resp B/P (MAP) Pulse Ox O2 Delivery O2 Flow Rate FiO2 02/20/25 20:13 98.1 02/20/25 17:00 79 16 99 115/75 (88) 02/20/25 16:00 Nasal Cannula* 2 28 Laboratory Tests 02/20/25 04:23 02/20/25 09:27 Medications Current Medications Sodium Chloride 1,000 ml @ 0 mls/hr ONCE ONCE IV; Start 02/10/25 at 01:00; Stop 02/10/25 at 00:46; Status DC Sodium Chloride 500 ml @ 0 mls/hr ONCE ONCE IV Last administered on 02/10/25at 00:53; Start 02/10/25 at 01:00; Stop 02/10/25 at 01:01; Status DC Insulin Human Regular 5 unit ONCE ONCE IV Last administered on 02/10/25at 01:30; Start 02/10/25 at 01:30; Stop 02/10/25 at 01:31; Status DC Aspirin 325 mg ONCE ONCE PO Last administered on 02/10/25at 02:32; Start 02/10/25 at 02:30; Stop 02/10/25 at 02:31; Status DC Heparin Sodium/ Dextrose 250 ml @ 0 mls/hr PROTOCOL IV Last administered on 02/10/25at 03:00; Start 02/10/25 at 03:00; Stop 02/10/25 at 17:22; Status DC Heparin Sodium (Porcine) 7,000 unit ONCE ONCE SQ Last administered on 02/10/25at 02:55; Start 02/10/25 at 03:00; Stop 02/10/25 at 03:01; Status DC Acetaminophen 650 mg Q6H PRN PO Last administered on 02/12/25at 17:13; Start 02/10/25 at 05:00; Stop 02/14/25 at 10:17; Status DC Acetaminophen 650 mg Q4H PRN PO; Start 02/10/25 at 05:00; Stop 02/14/25 at 10:05; Status DC Ondansetron HCl 4 mg Q6H PRN IV; Start 02/10/25 at 05:00; Stop 02/14/25 at 10:17; Status DC Nitroglycerin 0.4 mg PROTOCOL PRN SL; Start 02/10/25 at 05:00; Stop 02/14/25 at 09:59; Status DC Famotidine 20 mg DAILY PO Last administered on 02/13/25at 10:53; Start 02/10/25 at 09:00; Stop 02/14/25 at 09:59; Status DC Sodium Chloride 1,000 ml @ 100 mls/hr Q10H IV Last administered on 02/10/25at 14:20; Start 02/10/25 at 05:00; Stop 02/10/25 at 17:22; Status DC Insulin Human Regular INSULIN SLIDING SCAL... Q4H SQ Last administered on 02/10/25at 09:15; Start 02/10/25 at 05:00; Stop 02/10/25 at 11:10; Status DC Dextrose 50 ml AD PRN IV; Start 02/10/25 at 05:00; Stop 02/14/25 at 10:17; Status DC Glucagon 1 mg AD PRN IM; Start 02/10/25 at 05:00; Stop 02/14/25 at 10:17; Status DC Magnesium Sulfate 50 ml @ 0 mls/hr PROTOCOL PRN IV Last administered on 02/12/25at 07:13; Start 02/10/25 at 05:00; Stop 02/14/25 at 10:17; Status DC Potassium Chloride 100 ml @ 100 mls/hr AD PRN IV Last administered on 02/15/25at 05:43; Start 02/10/25 at 05:00; Stop 02/15/25 at 06:27; Status DC Potassium Chloride 20 meq AD PRN PO Last administered on 02/17/25at 05:52; Start 02/10/25 at 05:00; Stop 03/12/25 at 04:59 Potassium Chloride 20 meq AD PRN PO Last administered on 02/18/25at 20:18; Start 02/10/25 at 05:00; Stop 03/12/25 at 04:59 Aspirin 81 mg DAILY PO Last administered on 02/19/25at 08:13; Start 02/10/25 at 09:00; Stop 03/12/25 at 08:59 Insulin Human Regular INSULIN SLIDING SCAL... Q6H6 SQ Last administered on 02/11/25at 17:29; Start 02/10/25 at 12:00; Stop 02/14/25 at 09:59; Status DC Clopidogrel Bisulfate 600 mg ONCE PO Last administered on 02/10/25at 14:19; Start 02/10/25 at 14:00; Stop 02/10/25 at 17:22; Status DC Aspirin 325 mg ONCE PO Last administered on 02/10/25at 14:32; Start 02/10/25 at 14:30; Stop 02/10/25 at 17:22; Status DC Sacubitril/ Valsartan 0.5 each BID PO Last administered on 02/13/25at 21:11; Start 02/10/25 at 21:00; Stop 02/14/25 at 09:59; Status DC Empaglifozin 10 mg DAILY PO Last administered on 02/13/25at 10:52; Start 02/10/25 at 14:30; Stop 02/14/25 at 09:59; Status DC Spironolactone 25 mg DAILY PO Last administered on 02/13/25at 10:52; Start 02/10/25 at 14:30; Stop 02/14/25 at 09:59; Status DC Furosemide 20 mg ONCE IV Last administered on 02/10/25at 17:00; Start 02/10/25 at 17:00; Stop 02/10/25 at 21:00; Status DC Furosemide 20 mg ONCE IV; Start 02/11/25 at 09:00; Stop 02/11/25 at 07:43; Status DC Lidocaine HCl 20 ml STK-MED ONCE .ROUTE; Start 02/10/25 at 15:22; Stop 02/10/25 at 15:23; Status DC Iohexol 35,000 mg STK-MED ONCE IV; Start 02/10/25 at 15:22; Stop 02/10/25 at 15:23; Status DC Iohexol 50 ml STK-MED ONCE IV; Start 02/10/25 at 15:22; Stop 02/10/25 at 15:23; Status DC Heparin Sodium (Porcine) 10,000 unit STK-MED ONCE .ROUTE; Start 02/10/25 at 15:23; Stop 02/10/25 at 15:23; Status DC Heparin Sodium/ Sodium Chloride 1,000 ml @ As Directed STK-MED ONCE IV; Start 02/10/25 at 15:23; Stop 02/10/25 at 15:23; Status DC Nitroglycerin 50 mg STK-MED ONCE .ROUTE; Start 02/10/25 at 15:23; Stop 02/10/25 at 15:23; Status DC Heparin Sodium/ Sodium Chloride 500 ml @ As Directed STK-MED ONCE IV; Start 02/10/25 at 15:35; Stop 02/10/25 at 15:35; Status DC Fentanyl Citrate 100 mcg STK-MED ONCE .ROUTE; Start 02/10/25 at 15:39; Stop 02/10/25 at 15:40; Status DC Midazolam HCl 2 mg STK-MED ONCE .ROUTE; Start 02/10/25 at 15:40; Stop 02/10/25 at 15:40; Status DC Bivalirudin 250 mg STK-MED ONCE IV; Start 02/10/25 at 16:15; Stop 02/10/25 at 16:15; Status DC Heparin Sodium (Porcine) 7,000 unit ONCE ONCE IV Last administered on 02/11/25at 05:46; Start 02/11/25 at 05:30; Stop 02/11/25 at 05:31; Status DC Heparin Sodium/ Dextrose 250 ml @ 0 mls/hr Q6H IV Last administered on 02/13/25at 13:01; Start 02/11/25 at 06:30; Stop 02/14/25 at 09:59; Status DC Clopidogrel Bisulfate 75 mg DAILY PO; Start 02/11/25 at 09:00; Stop 02/11/25 at 07:28; Status DC Insulin Glargine 15 units DAILY08 SQ Last administered on 02/12/25at 08:54; Start 02/11/25 at 08:00; Stop 02/13/25 at 05:24; Status DC Furosemide 20 mg DAILY PO Last administered on 02/13/25at 10:52; Start 02/11/25 at 09:00; Stop 02/14/25 at 09:59; Status DC Insulin Human Regular 3 unit TIDAC SQ Last administered on 02/12/25at 16:31; Start 02/12/25 at 07:30; Stop 02/14/25 at 09:59; Status DC Metoprolol Tartrate 12.5 mg BID PO Last administered on 02/14/25at 06:44; Start 02/12/25 at 09:00; Stop 02/14/25 at 09:59; Status DC Potassium Chloride 40 meq BID ONCE PO; Start 02/12/25 at 21:00; Stop 02/12/25 at 21:01; Status DC Magnesium Chloride 64 mg Q8H6 ONCE PO; Start 02/12/25 at 14:00; Stop 02/12/25 at 14:01; Status DC Heparin Sodium (Porcine) *calculation based on ACTUAL B... AD PRN IV Last administered on 02/12/25at 20:16; Start 02/12/25 at 21:00; Stop 02/14/25 at 09:59; Status DC Insulin Glargine 12 units DAILY08 SQ Last administered on 02/13/25at 10:51; Start 02/13/25 at 08:00; Stop 02/14/25 at 09:59; Status DC Cefazolin Sodium 2 gm ONCALL IVP Last administered on 02/14/25at 08:50; Start 02/13/25 at 20:00; Stop 02/14/25 at 18:51; Status DC Epinephrine HCl 10 mg/Sodium Chloride 250 ml @ 0 mls/hr AD PRN IV Last administered on 02/20/25at 17:32; Start 02/14/25 at 06:30; Stop 03/16/25 at 06:29 Norepinephrine Bitartrate 250 ml @ 0 mls/hr AD PRN IV Last administered on 02/17/25at 01:06; Start 02/14/25 at 06:30; Stop 03/16/25 at 06:29 Aminocaproic Acid 51171 mg/Sodium Chloride 480 ml @ 0 mls/hr AD PRN IV; Start 02/14/25 at 06:30; Stop 03/16/25 at 06:29 Epinephrine HCl 10 mg/Sodium Chloride 250 ml @ 0 mls/hr AD PRN IV; Start 02/14/25 at 07:00; Stop 02/14/25 at 06:51; Status DC Norepinephrine Bitartrate 250 ml @ 0 mls/hr AD PRN IV; Start 02/14/25 at 07:00; Stop 02/14/25 at 06:51; Status DC Aminocaproic Acid 70214 mg/Sodium Chloride 480 ml @ 0 mls/hr AD PRN IV; Start 02/14/25 at 07:00; Stop 02/14/25 at 06:51; Status DC Cefazolin Sodium 2 gm STK-MED ONCE .ROUTE; Start 02/14/25 at 06:53; Stop 02/14/25 at 06:53; Status DC Nitroglycerin/ Dextrose 1 ml @ As Directed STK-MED ONCE .ROUTE; Start 02/14/25 at 07:00; Stop 02/14/25 at 07:00; Status DC Cefazolin Sodium 1 gm STK-MED ONCE .ROUTE Last administered on 02/14/25at 10:09; Start 02/14/25 at 07:37; Stop 02/14/25 at 07:38; Status DC Heparin Sodium/ Sodium Chloride 500 ml @ As Directed STK-MED ONCE IV; Start 02/14/25 at 07:38; Stop 02/14/25 at 07:38; Status DC Papaverine HCl 60 mg STK-MED ONCE .ROUTE Last administered on 02/14/25at 10:10; Start 02/14/25 at 07:38; Stop 02/14/25 at 07:38; Status DC Midazolam HCl 2 mg STK-MED ONCE .ROUTE; Start 02/14/25 at 08:14; Stop 02/14/25 at 08:14; Status DC Ketamine HCl 500 mg STK-MED ONCE IJ; Start 02/14/25 at 08:16; Stop 02/14/25 at 08:16; Status DC Protamine Sulfate 250 mg STK-MED ONCE IV; Start 02/14/25 at 08:17; Stop 02/14/25 at 08:17; Status DC Lidocaine HCl 100 mg STK-MED ONCE .ROUTE; Start 02/14/25 at 08:17; Stop 02/14/25 at 08:17; Status DC Heparin Sodium (Porcine) 10,000 unit STK-MED ONCE .ROUTE; Start 02/14/25 at 08:17; Stop 02/14/25 at 08:17; Status DC Epinephrine HCl 1 mg STK-MED ONCE .ROUTE; Start 02/14/25 at 08:17; Stop 02/14/25 at 08:17; Status DC Sodium Bicarbonate 200 ml @ As Directed STK-MED ONCE .ROUTE; Start 02/14/25 at 08:17; Stop 02/14/25 at 08:17; Status DC Norepinephrine Bitartrate 4 mg STK-MED ONCE IV; Start 02/14/25 at 08:17; Stop 02/14/25 at 08:17; Status DC Propofol 200 mg STK-MED ONCE IV; Start 02/14/25 at 08:19; Stop 02/14/25 at 08:19; Status DC Fentanyl Citrate 1,000 mcg STK-MED ONCE IJ; Start 02/14/25 at 08:19; Stop 02/14/25 at 08:19; Status DC Midazolam HCl 2 mg STK-MED ONCE .ROUTE; Start 02/14/25 at 08:20; Stop 02/14/25 at 08:20; Status DC Rocuronium [place] 50 mg STK-MED ONCE .ROUTE; Start 02/14/25 at 08:20; Stop 02/14/25 at 08:20; Status DC Acetaminophen 1,000 mg Q6H6 IV Last administered on 02/15/25at 12:14; Start 02/14/25 at 14:00; Stop 02/15/25 at 13:59; Status DC Aspirin 81 mg ONCE ONCE NG Last administered on 02/14/25at 13:56; Start 02/14/25 at 14:00; Stop 02/14/25 at 14:01; Status DC Docusate Sodium 100 mg BID PO Last administered on 02/20/25at 20:05; Start 02/14/25 at 21:00; Stop 03/16/25 at 20:59 Lactulose 20 gm BID PRN PO; Start 02/14/25 at 10:00; Stop 03/16/25 at 09:59 Furosemide 20 mg Q12H PO Last administered on 02/16/25at 08:19; Start 02/16/25 at 09:00; Stop 02/16/25 at 10:21; Status DC Furosemide 20 mg Q12H IV Last administered on 02/15/25at 20:16; Start 02/15/25 at 09:00; Stop 02/16/25 at 08:59; Status DC Atorvastatin Calcium 40 mg HS PO Last administered on 02/20/25at 20:05; Start 02/14/25 at 21:00; Stop 03/16/25 at 20:59 Enoxaparin Sodium 30 mg DAILY SQ Last administered on 02/19/25at 08:13; Start 02/17/25 at 09:00; Stop 03/19/25 at 08:59 Metoprolol Tartrate 12.5 mg BID PO; Start 02/16/25 at 09:00; Stop 02/20/25 at 09:01; Status DC Magnesium Hydroxide 30 ml DAILY PRN PO; Start 02/14/25 at 10:00; Stop 03/16/25 at 09:59 Dexmedetomidine/ Sodium Chloride 400 mcg PROTOCOL IV; Start 02/14/25 at 10:00; Stop 02/15/25 at 09:59; Status DC Acetaminophen 650 mg Q6H PRN PO; Start 02/14/25 at 10:00; Stop 03/16/25 at 09:59 Heparin Sodium (Porcine) 10,000 unit STK-MED ONCE .ROUTE; Start 02/14/25 at 10:00; Stop 02/14/25 at 10:00; Status DC Sodium Chloride 1,000 ml @ 10 mls/hr ONCE IV; Start 02/14/25 at 10:00; Stop 02/15/25 at 09:59; Status DC Sodium Chloride 10 ml Q8H PRN IVP; Start 02/14/25 at 10:00; Stop 03/16/25 at 09:59 Morphine Sulfate 0.5 mg Q2H PRN IV; Start 02/14/25 at 10:00; Stop 02/15/25 at 09:59; Status DC Morphine Sulfate 1 mg Q2H PRN IV Last administered on 02/14/25at 14:23; Start 02/14/25 at 10:30; Stop 02/19/25 at 13:29; Status DC Acetaminophen 650 mg Q4H PRN RC; Start 02/14/25 at 10:00; Stop 03/16/25 at 09:59 Ondansetron HCl 4 mg Q6H PRN IV; Start 02/14/25 at 10:00; Stop 03/16/25 at 09:59 Sodium Chloride 500 ml @ 0 mls/hr AD IV; Start 02/14/25 at 10:00; Stop 03/16/25 at 09:59 Nitroglycerin/ Dextrose 0 ml @ 0 mls/hr AD IV; Start 02/14/25 at 10:00; Stop 02/17/25 at 09:59; Status DC Propofol 100 ml @ 0 mls/hr AD PRN IV; Start 02/14/25 at 10:00; Stop 02/18/25 at 09:59; Status DC Norepinephrine Bitartrate 8 mg/ Dextrose 250 ml @ 0 mls/hr AD PRN IV; Start 02/14/25 at 10:00; Stop 02/14/25 at 10:14; Status DC Epinephrine HCl 10 mg/Sodium Chloride 250 ml @ 0 mls/hr AD PRN IV; Start 02/14/25 at 10:00; Stop 02/14/25 at 10:14; Status DC Aminocaproic Acid 09940 mg/Sodium Chloride 310 ml @ 25 mls/hr AD IV; Start 02/14/25 at 10:00; Stop 02/14/25 at 10:19; Status DC Calcium Gluconate 1 gm/Sodium Chloride 60 ml @ 200 mls/hr AD PRN IV Last administered on 02/20/25at 12:47; Start 02/14/25 at 10:00; Stop 03/16/25 at 09:59 Magnesium Sulfate 50 ml @ 12.5 mls/hr AD PRN IV Last administered on 02/20/25at 08:30; Start 02/14/25 at 10:00; Stop 03/16/25 at 09:59 Potassium Chloride 100 ml @ 100 mls/hr AD PRN IV Last administered on 02/20/25at 09:14; Start 02/14/25 at 10:00; Stop 03/16/25 at 09:59 Potassium Phosphate 250 ml @ 42 mls/hr AD PRN IV; Start 02/14/25 at 10:00; Stop 03/16/25 at 09:59 Albumin Human 250 ml @ 0 mls/hr AD PRN IV Last administered on 02/14/25at 14:42; Start 02/14/25 at 10:00; Stop 02/14/25 at 14:42; Status DC Acetaminophen 650 mg Q4H PRN PO; Start 02/14/25 at 10:00; Stop 03/16/25 at 09:59 Insulin Human Regular 100 unit/ Sodium Chloride 100 ml @ 0 mls/hr AD IV Last administered on 02/15/25at 06:30; Start 02/14/25 at 10:00; Stop 02/16/25 at 09:59; Status DC Cefazolin Sodium 2 gm Q8H IVPB Last administered on 02/15/25at 06:25; Start 02/14/25 at 15:00; Stop 02/15/25 at 07:01; Status DC Tramadol HCl 25 mg Q6H PRN PO; Start 02/14/25 at 10:00; Stop 02/19/25 at 09:59; Status DC Tramadol HCl 50 mg Q6H PRN PO; Start 02/14/25 at 10:00; Stop 02/19/25 at 09:59; Status DC Famotidine 20 mg BID IV Last administered on 02/15/25at 20:15; Start 02/14/25 at 21:00; Stop 02/16/25 at 07:58; Status DC Sodium Bicarbonate 50 meq AD PRN IV Last administered on 02/16/25at 15:25; Start 02/14/25 at 10:00; Stop 02/17/25 at 09:59; Status DC Dextrose 50 ml AD PRN IV; Start 02/14/25 at 10:00; Stop 03/16/25 at 09:59 Glucagon 1 mg AD PRN IM; Start 02/14/25 at 10:00; Stop 03/16/25 at 09:59 Dobutamine HCl 250 mg STK-MED ONCE .ROUTE; Start 02/14/25 at 10:28; Stop 02/14/25 at 10:28; Status DC Sodium Bicarbonate 50 ml @ As Directed STK-MED ONCE .ROUTE; Start 02/14/25 at 10:52; Stop 02/14/25 at 10:52; Status DC Sodium Bicarbonate 200 ml @ As Directed STK-MED ONCE .ROUTE; Start 02/14/25 at 10:53; Stop 02/14/25 at 10:53; Status DC Vasopressin 20 units STK-MED ONCE .ROUTE; Start 02/14/25 at 11:51; Stop 02/14/25 at 11:51; Status DC Rocuronium [place] 50 mg STK-MED ONCE .ROUTE; Start 02/14/25 at 12:14; Stop 02/14/25 at 12:14; Status DC Sodium Bicarbonate 100 ml @ As Directed STK-MED ONCE .ROUTE; Start 02/14/25 at 12:16; Stop 02/14/25 at 12:16; Status DC Vasopressin 40 units/Sodium Chloride 40 ml @ 0 mls/hr PROTOCOL IV Last administered on 02/14/25at 22:11; Start 02/14/25 at 13:00; Stop 03/16/25 at 12:59 Albumin Human 250 ml @ 0 mls/hr AD IV Last administered on 02/18/25at 10:27; Start 02/14/25 at 15:30; Stop 02/18/25 at 10:40; Status DC Calcium Gluconate 2 gm/Sodium Chloride 100 ml @ 0 mls/hr ONCE ONCE IV Last administered on 02/14/25at 16:15; Start 02/14/25 at 16:30; Stop 02/14/25 at 16:31; Status DC Pharmacy Profile Note 1 each ONCE MISC; Start 02/14/25 at 18:00; Stop 02/14/25 at 18:27; Status DC Sodium Bicarbonate 25 meq/Dextrose 1,025 ml @ 0 mls/hr Q0M IV Last administered on 02/18/25at 13:03; Start 02/14/25 at 18:00; Stop 03/16/25 at 17:59 Famotidine 20 mg BID PO Last administered on 02/16/25at 20:03; Start 02/16/25 at 09:00; Stop 02/17/25 at 07:09; Status DC Insulin Human Regular INSULIN SLIDING SCAL... ACHS SQ Last administered on 02/19/25at 20:45; Start 02/16/25 at 11:30; Stop 03/18/25 at 11:29 Cefepime HCl 1 gm Q12H IVPB Last administered on 02/19/25at 22:54; Start 02/16/25 at 10:30; Stop 02/20/25 at 08:16; Status DC Furosemide 100 mg/ Sodium Chloride 100 ml @ 0 mls/hr PROTOCOL IV Last administered on 02/19/25at 11:35; Start 02/16/25 at 10:30; Stop 02/20/25 at 09:01; Status DC Vancomycin HCl 500 ml @ 250 mls/hr ONCE ONCE IV Last administered on 02/16/25at 11:39; Start 02/16/25 at 12:00; Stop 02/16/25 at 13:59; Status DC Sodium Chloride 4 ml STK-MED ONCE IH Last administered on 02/16/25at 10:53; Start 02/16/25 at 10:44; Stop 02/16/25 at 10:44; Status DC Sodium Chloride 4 ml STK-MED ONCE IH Last administered on 02/16/25at 14:33; Start 02/16/25 at 14:26; Stop 02/16/25 at 14:26; Status DC Sodium Chloride 4 ml STK-MED ONCE IH Last administered on 02/16/25at 19:16; Start 02/16/25 at 18:32; Stop 02/16/25 at 18:32; Status DC Famotidine 20 mg DAILY PO Last administered on 02/19/25at 08:13; Start 02/17/25 at 09:00; Stop 03/18/25 at 08:59 Latanoprost 1 DROP FOR EACH EYE HS OP Last administered on 02/19/25at 22:55; Start 02/17/25 at 21:00; Stop 03/19/25 at 20:59 Home Med (Brimonidine-Timolol 0.2%/0.5% EYE DROPS) DAILY OP Last administered on 02/20/25at 08:26; Start 02/18/25 at 09:00; Stop 03/20/25 at 08:59 Albumin Human 250 ml @ 0 mls/hr AD IV; Start 02/18/25 at 10:30; Stop 02/20/25 at 09:03; Status DC Vancomycin HCl 1 each AD IV; Start 02/18/25 at 11:00; Stop 03/04/25 at 10:59 Vancomycin HCl 250 ml @ 125 mls/hr Q12H IV Last administered on 02/19/25at 11:20; Start 02/18/25 at 11:30; Stop 02/28/25 at 11:29; Status Hold Potassium Chloride 20 meq BID PO Last administered on 02/19/25at 20:32; Start 02/19/25 at 10:30; Stop 03/21/25 at 10:29 Dexmedetomidine/ Sodium Chloride 400 mcg STK-MED ONCE IV Last administered on 02/20/25at 07:08; Start 02/20/25 at 07:00; Stop 02/20/25 at 07:00; Status DC Dexmedetomidine/ Sodium Chloride 400 mcg PROTOCOL IV Last administered on 02/20/25at 18:08; Start 02/20/25 at 07:30; Stop 03/22/25 at 07:29 Carvedilol 3.125 mg BID PO; Start 02/20/25 at 21:00; Stop 03/22/25 at 20:59 Spironolactone 25 mg DAILY PO Last administered on 02/20/25at 09:15; Start 02/20/25 at 09:00; Stop 03/22/25 at 08:59 Empaglifozin 10 mg DAILY PO Last administered on 02/20/25at 09:14; Start 02/20/25 at 09:00; Stop 03/22/25 at 08:59 Albumin Human 50 ml @ 0 mls/hr Q12H9 IV Last administered on 02/20/25at 20:06; Start 02/20/25 at 09:00; Stop 02/25/25 at 08:59 Furosemide 20 mg Q12H IV Last administered on 02/20/25at 20:05; Start 02/20/25 at 09:00; Stop 03/22/25 at 08:59 Pharmacy Profile Note 1 each ONCE MISC; Start 02/20/25 at 11:30; Stop 02/20/25 at 11:19; Status DC Piperacillin Sod/ Tazobactam Sod 50 ml @ 12.5 mls/hr Q8H IVPB Last administered on 02/20/25at 20:06; Start 02/20/25 at 11:30; Stop 03/02/25 at 11:29 EUGENE ZARATE MD Feb 20, 2025 20:52
[2025-02-21] VITALS (97 sets, daily range): BP systolic 51–222; BP diastolic -12–221; PULSE 75–90; RESP 9–90; TEMP 97.7–98.4; O2SAT 100
[2025-02-21 03:03] LABS: ABG BASE EXCESS 0.1 mmol/L (-2.0-3.0); ABG HCO3 23.1 mmol/L (21.0-28.0); ABG OXYGEN SATURATION 92.8 % (94.0-98.0); ABG PCO2 32 mmHg (35-48); ABG PH 7.477 (7.350-7.450); CARBON MONOXIDE 1.2 % (0.5-1.5); PO2, ARTERIAL BG 67.5 mmHg (83.0-108.0); TEMPERATURE, CELSIUS BG 37.0 CELSIUS (35.5-37.0); VENT MODE, BG RA (ROOM AIR)
[2025-02-21 04:52] LABS: IMMATURE GRANULOCYTE ABSOLUTE 2.37 K/uL (0-1); NUCLEATED RED BLOOD CELLS 1.0 % (0.0-0.19); PLATELET COUNT (AUTO) 299 K/uL (130-400); RED BLOOD CELL COUNT(AUTO) 3.19 MIL/uL (4.50-6.20); RED CELL DISTRIBUTION WIDTH 13.9 % (11.0-15.5); WHITE BLOOD COUNT (AUTO) 17.9 K/uL (4.8-10.8)
[2025-02-21 05:03] LABS: INR 1.14 (0.85-1.15)
[2025-02-21 05:12] LABS: ASPARTATE AMINOTRANSFERASE 29.0 U/L (10-37); CREATININE 0.7 mg/dL (0.5-1.3); GLOMERULAR FILTR. RATE CALC 95.0 mL/min (>90); GLUCOSE,RANDOM 209.0 mg/dL (70-105); SODIUM SERUM 134.0 mmol/L (136-145); TOTAL PROTEIN, SERUM 6.1 g/dL (6.0-8.3); UREA NITROGEN, BLOOD 16.0 mg/dL (7-18); VANCOMYCIN TROUGH 2.8 UG/ML (10.0-20.0)
--- NOTE | 2025-02-21 05:23 | HMCIMG ---
STUDY: X-RAY OF THE CHEST, 1 VIEW HISTORY: Pleural effusion. TECHNIQUE: A single frontal view of the chest is submitted for interpretation. COMPARISON: Chest radiograph from 02/19 at 4:35 EST. FINDINGS: Pulmonary heck: Small left basilar atelectasis. No new focal consolidation, pulmonary edema, or suspicious pulmonary nodule is identified. Cardiac silhouette: Cardiac size and contour are within normal limits for the technique. Mediastinum and renzo: Mediastinal contours and hilar structures are stable and within normal limits. No mediastinal widening is seen. Osseous structures: Status post median sternotomy. No acute displaced rib or thoracic vertebral fracture is identified. No aggressive osseous lesion. Miscellaneous: Right internal jugular central venous catheter and ventricular assist device hardware are in stable position compared with the prior study. Small left pleural effusion with associated left basilar atelectasis. No right pleural effusion or pneumothorax. IMPRESSION: * Small left pleural effusion with associated left basilar atelectasis. No radiographic evidence of pneumonia or pulmonary edema. * Right internal jugular central venous catheter and ventricular assist device in stable position. * No pneumothorax or new focal consolidation identified. * Status post median sternotomy without acute osseous abnormality. * Compared with the chest radiograph from 02/19 at 4:35 EST, the appearance of the lungs, pleural spaces, and support devices is stable. Management should be guided by the clinical context and symptoms rather than any new radiographic change. /Leonardo
[2025-02-21] MEDS: VANCOMYCIN 1G/250ML KIT 250 ML IV SCH (06:09)
[2025-02-21] MEDS: CALCIUM GLUC 1GM/10ML VIAL ONE (08:37)
[2025-02-21] MEDS: LIDOCAINE HCL 1% 20 ML VIAL INJ ONE (12:18)
[2025-02-21] MEDS ORDERED: ETOMIDATE 20MG VIAL ONE (12:27)
[2025-02-21] MEDS ORDERED: LIDOCAINE HCL 1% 20 ML VIAL ONE (12:31)
[2025-02-21] MEDS ORDERED: LIDOCAINE PF 100MG/5ML (2%) SYRINGE 5ML ONE (12:46)
--- NOTE | 2025-02-21 13:53 | OP ---
DATE OF PROCEDURE: 02/21/2025 PREOPERATIVE DIAGNOSIS: Impella L5.5 left ventricular assist device. POSTOPERATIVE DIAGNOSIS: Impella L5.5 left ventricular assist device. PROCEDURE PERFORMED: Removal of Impella L5.5 left ventricular assist device. OPERATING SURGEON: Serge Kaur MD. TELECOMMUNICATION ENGINEER: JING Culver. ANESTHESIOLOGIST: Mike Dallas MD. TYPE OF ANESTHESIA: General endotracheal anesthesia. BRIEF HISTORY: The patient is a 74-year-old male who underwent a coronary artery bypass grafting using Impella support due to markedly low ejection fraction. The patient had been weaned off of all drips up until yesterday when he required sedation due to an acute delirium episode. He, however, had been weaned down to P3 and echo on P2 revealed an ejection fraction of 20-25%. He presents now for removal of the Impella catheter. DESCRIPTION OF PROCEDURE: The patient was brought to the operating room and placed on the operating table in the supine position. He was given general endotracheal anesthesia. After placing lines and catheters, his neck, chest, and abdomen were prepped and draped in the usual sterile fashion. Previous skin valeria were removed and the edge of the aortic conduit was grasped with a hemostat. The sutures securing the Impella catheter were cut and the sutures around the graft were removed. The Impella catheter was turned off and then removed from the conduit, which was then clamped with a partial occlusion clamp. A thoracic stapler was then fired across the end of the aortic conduit removing approximately 2 cm. The end was doubly clipped with large clips. The graft was then scrubbed with undiluted Betadine and antibiotic solution. It was then allowed to withdraw into the chest. The neck incision was then closed with 2 layers of running Vicryl suture and the skin was closed using a running intracuticular Monocryl stitch. The wounds were cleaned, dried, covered with bandages, and the patient was undraped, extubated, and taken to the ICU in critical but stable condition. TID: [id number] RECEIPT: [id number] cc: Cha MCKINNEY II MD(User), FRANKY PACHECO MD(User), JING CULVER, RENATO CANNON MD(User)
[2025-02-21] MEDS: SUGAMMADEX SODIUM 200 MG/2 ML VIAL IV ONE (15:15)
--- NOTE | 2025-02-21 15:29 | PN ---
[facility] PROGRESS NOTE Date of Service: Feb 21, 2025 Time of Service: 15:15 HISTORY OF PRESENT ILLNESS: This is a 74-year-old male,a [employer] by yazidi whith past medical history of diabetes, hyperlipidemia and MS/coronary artery disease with cardiac stent who presented to the Ed for complaints of midsternal chest pain that is non radiating associated with diaphoresis and this happened when patient was laying down in bed aroun 11:50 pm last night and decided to come to the ED for evaluation.Patient reports pain was persistent.As per patient he had a history of heart attack before and underwent a stent placement.Patient reports the only medication he is taking is Metformin.Patient states he is supposed to be on Aspirin but has stopped taking it.Patient reports he occasionally drinks beer and last drink was yesterday ,had 2 beers he said. Seen and examined patient in the ER awake,alert and coherent,appears comfortable.Patient denies fever,chills,cough,nausea,vomiting,palpitation and shortness of breath. Latest vital signs temperature 98.2, heart rate 75, blood pressure 124/70 saturation 97% on room air. Labs: CBC unremarkable. Chloride 99, BUN 21, random glucose 469 to 439 to 327. Troponin from -. ECG result revealed revealed sinus rhythm heart rate 85 with atrial premature complex anterolateral infarct age indeterminate. Second EKG result revealed sinus rhythm heart rate 73 with left anterior fascicular block. Probable anterolateral infarct age indeterminate. Abnormal T consider ischemia lateral leads.. Chest x-ray result revealed no acute cardiopulmonary process is evident. While in the ER patient received 1500 mL NS bolus, insulin 5 units IV, aspirin 325 mg p.o. and patient was started on heparin drip per [facility] protocol. SUBJECTIVE: 02/10/25: Patient was seen and evaluated in ED9. Patient was alert, awake and orientedX3. Patient reports that he doesn't have any chest pain today. Patient reports occasional shortness of breath during nights. Patient denies any shortness of breath, nausea, vomiting, palpitations and lightheadedness. Patient denies any abdominal pain, burning urination. Patient mentions that he only takes metformin 3-4 times per week and has stopped taking aspirin because it wasn't reconciled. Troponin from -. 2D ECHO was done, pending results. Patient is currently on Heparin drip 02/11/25: Patient was evaluated at the bedside this morning. No overnight event. He is AAO x3. patient reported that he does not have chest pain or shortness of breath. He is hemodynamically stable. The labs remarkable for potassium 3.3, magnesium 1.6, HbA1c 13.9, troponin 56442. Left heart catheterization revealed severe triple-vessel disease. Echocardiogram revealed 25% ejection fraction with segmental akinesis. CT surgery was consulted who recommended CABG with Impella left ventricle assist. Family to decide about the procedure. He is currently on heparin drip, aspirin. Endocrinology on board. Rest of the plan as discussed below. 02/12/25: Patient was evaluated at the bedside this morning. No overnight event. He is AAO x3. patient reported that he does not have chest pain or shortness of breath. He is hemodynamically stable. Cardiology is on board and Dr. Blanton have suggested low-dose beta estela like metoprolol tartrate 12.5 mg b.i.d. for his heart failure. Dr Kaur still recommends CABG with 5.5 Impella LVAD and the patient agrees to it. We will continue Entresto, Aldactone, Jardiance, aspirin, Lasix as per CT surgeon recommendations. Today his potassium is 3.1 and we would like to be above 4 for CABG patients. So we will replace potassium 02/13/25: Patient was seen and evaluated in room 201. Patient reports feeling better. patient denies any chest pain, shortness of breath. He is continuing on Entresto, Aldactone, Jardiance, aspirin, Lasix as per CT surgeon recommendations.Patients Potassium today is 3.7, will continue replacing potassium. Patients was present along with the patient, she has a few question about the CABG procedure which she wanted to ask Dr. Alexis. 02/14/25. Patient was undergoing CABG procedure today in the morning. 02/15/25: Patient was seen and evaluated in room 213. Patient status post CABG day 1. Patient denies any fever, chills, shortness of breath. Patient complaints of pain along the incision. Patient is on IABP and Impella support. patient is on Vasopressin and Norepinephrine drip. Entresto, Aldactone, Jardiance were discontinued by Dr. Alexis. CT surgery are on the case and will follow their recommendations. 02/16/25: Patient was seen and evaluated in room 213. Patient status post CABG day 2. patient was asleep when we went bedside. Spoke with the nurse regarding overnights and she mentioned that patient was a bit confused in the night but later improved with sleep. Patient is continuing on Epinephrine drip. Patient was weaned off IABP and is currently only on Impella. Patient was started on Vancomycin and cefepime due to elevated WBC levels and findings suggestive of pneumonia on chest x-ray 02/17/25: Patient was seen and evaluated in room 213. Patient status post CABG day 2. patient was asleep when we went bedside. Spoke with the nurse regarding overnights and he mentioned that patient was started on lasix protocol. Patient is continuing on Epinephrine drip and Impella. Critical care are on the case and will follow their recommendations. 02/18/25: Patient was seen and examined at bedside. He is status post CABG day 3. He continues on Lasix drip 2.5, With Impella P3 support and epinephrine drip. His total output in the past 24 hours has been optimal, 4740 versus 2165 input. No acute events overnight. We will follow CTS recommendations regarding further weaning off Impella. 02/19/25: Patient was seen and evaluated in room 210. He is status post CABG day 4. He continues on Lasix drip 2.5, With Impella P3 support and epinephrine drip. His total output in the past 24 hours has been 2905 versus 4072. No acute overnight. Patient is scheduled for possible impella removal tomorrow. 02/20/25: Patient was seen and evaluated in room 210. He is status post CABG day 5. He continues on Lasix drip 2.5, Impella setting have been maintained at P3 settings. He is continuing on epinephrine drip. Cefepime was discontinued yesterday because overnight the patient was confused, agitated and combative suspecting the cause of his confusion and started on Zosyn. His total output in the past 24 hours has been 2675 versus 2206. Patient is scheduled for possible impella removal tomorrow. 02/21/25: Patient was seen and evaluated in room 210. He is status post CABG day 6. Patient is continuing on Epinephrine drip. patient was started on Lasix 20mg IV. Patient is scheduled for impella removal today. Patient is continuing on Zosyn. His total output in the past 24 hours has been 6700 versus 1785. REVIEW OF SYSTEMS CONSTITUTIONAL: Denies fevers, chills, or night sweats. No unintentional weight loss reported. NEUROLOGICAL: Denies headache, amaurosis fugax, motor weakness, sensory deficit, vertigo/spinning sensation, gait abnormalities, or tremors. ENT: No hearing loss, otalgia, otorrhea, rhinitis, rhinorrhea, hoarseness, or sore throat. CARDIOVASCULAR: Denies chest pain, dyspnea on exertion, orthopnea, paroxysmal nocturnal dyspnea, palpitations, life-threatening arrhythmias, claudication. PULMONARY: Denies any cough, phlegm/sputum, hemoptysis, pleuritic chest pain. GASTROINTESTINAL: Denies any type of dysphagia to either liquids or solids. Denies nausea, vomiting, pyrosis, early satiety, abdominal pain, diarrhea, constipation, or changes in stool consistency or caliber. Denies coffee-ground emesis, hematemesis, hematochezia, or melanotic stools. GENITOURINARY: Denies frequency, urgency, nocturia, hematuria or incontinence (Storage/Irritative symptoms.) Low urinary stream, straining to void, urinary intermittency or hesitancy, splitting of the voiding stream, terminal dribbling. PHYSICAL EXAM GENERAL APPEARANCE: The patient is awake, alert, and oriented, in no acute cardiopulmonary distress. NEUROLOGICAL: Cranial nerves II-XII grossly intact. Motor is 5/5 in bilateral upper and lower extremities proximal to distal. No sensory deficits. HEENT: Face is symmetric. Pupils are equal and reactive. Extraocular movements are intact. NECK: Supple. No JVD. No thyromegaly. No submental, submandibular, pre- /postauricular, occipital or supraclavicular lymphadenopathy. CHEST: Normal chest expansion. No Telemetry. LUNGS: Absence of any rales, rhonchi or any wheezing. CARDIOVASCULAR: Regular. S1 and S2 normal. No appreciable rubs, murmurs or gallops. ABDOMEN: Soft, nontender, and nondistended. There is no rebound, voluntary guarding, or rigidity. : Deferred. No De Jesus. EXTREMITIES: Non-edematous and not cyanotic. No clubbing. Good capillary refill. SKIN: No skin breakdown. Vital Signs (last 8hr) Date Time Temp Pulse Resp B/P (MAP) Pulse Ox O2 Delivery O2 Flow Rate FiO2 02/21/25 12:00 100 Nasal Cannula* 3 32 02/21/25 11:23 88 27 100 36 119/64 (82) 02/21/25 11:08 88 17 100 36 126/71 (89) 02/21/25 10:53 89 17 100 36 127/77 (94) 02/21/25 10:38 89 17 100 36 127/76 (93) 02/21/25 10:22 89 19 100 36 123/80 (94) 02/21/25 10:08 90 17 100 36 121/73 (89) 02/21/25 09:52 90 16 100 36 123/77 (92) 02/21/25 09:38 90 17 100 36 122/76 (91) 02/21/25 09:22 90 16 100 36 132/79 (96) 02/21/25 09:08 89 16 100 36 128/79 (95) 02/21/25 08:52 89 19 100 36 122/79 (93) 02/21/25 08:38 89 19 100 36 117/72 (87) 02/21/25 08:23 89 17 100 36 131/85 (100) 02/21/25 08:08 84 21 126/84 (98) 100 36 02/21/25 08:00 100 Nasal Cannula* 3 32 02/21/25 07:53 88 16 131/86 (101) 100 36 02/21/25 07:38 87 15 131/83 (99) 100 36 02/21/25 07:30 98.2 02/21/25 07:23 87 15 132/83 (99) 100 36 LABS: Laboratory: Test 02/21/25 11:34 02/21/25 04:21 02/21/25 03:01 02/20/25 09:27 Range/Units Whole Blood Glucose 193 H 70-110 MG/DL White Blood Count 17.9 H 4.8-10.8 K/uL Red Blood Count 3.19 L 4.50-6.20 MIL/uL Hemoglobin 9.6 L 14.0-18.0 g/dL Hematocrit 27.9 L 42-54 % Mean Corpuscular Volume 87.5 79-99 fL Mean Corpuscular Hemoglobin 30.1 27.0-33.0 pg Mean Corpuscular Hemoglobin Concent 34.4 32.0-36.0 g/dL Red Cell Distribution Width 13.9 11.0-15.5 % Platelet Count 299 # 130-400 K/uL Mean Platelet Volume 11.8 H 7.5-10.5 fL Immature Granulocyte % (Auto) 13.3 H 0-1 % Neutrophils (%) (Auto) 59.5 40.0-77.0 % Lymphocytes (%) (Auto) 14.7 L 21.0-51.0 % Monocytes (%) (Auto) 10.4 3.0-13.0 % Eosinophils (%) (Auto) 1.0 0.0-8.0 % Basophils (%) (Auto) 1.1 0.0-5.0 % Neutrophils # (Auto) 10.6 H 1.8-7.7 K/uL Lymphocytes # (Auto) 2.6 1.0-4.8 K/uL Monocytes # (Auto) 1.9 H 0.1-1.0 K/uL Eosinophils # (Auto) 0.17 0.00-0.70 K/uL Basophils # (Auto) 0.20 0.00-0.20 K/uL Absolute Immature Granulocyte (auto 2.37 H 0-1 K/uL Nucleated Red Blood Cells 1.0 H 0.0-0.19 % Prothrombin Time 11.9 H 9.6-11.6 SEC Prothromb Time International Ratio 1.14 0.85-1.15 Activated Partial Thromboplast Time 31.0 26.3-35.5 SEC Fibrinogen 550 *H 180-350 mg/dL Sodium Level 134 L 136-145 mmol/L Potassium Level 3.6 3.5-5.1 mmol/L Chloride Level 95 L 101-111 mmol/L Carbon Dioxide Level 23 21-32 mmol/L Blood Urea Nitrogen 16 7-18 mg/dL Creatinine 0.7 0.5-1.3 mg/dL Glomerular Filtration Rate Calc 95 >90 mL/min Random Glucose 209 H 70-105 mg/dL Total Calcium 8.3 L 8.5-10.1 mg/dL Magnesium Level 1.80 1.80-2.40 mg/dL Total Bilirubin 1.9 #H 0.2-1.0 mg/dL Aspartate Amino Transf (AST/SGOT) 29 10-37 U/L Alanine Aminotransferase (ALT/SGPT) 26 12-78 U/L Alkaline Phosphatase 73 50-136 U/L Total Protein 6.1 6.0-8.3 g/dL Albumin 2.7 #L 3.5-5.0 g/dL Vancomycin Level Trough 2.8 #L 10.0-20.0 UG/ML Blood Gas Specimen Type Arterial Arterial Blood pH 7.477 H 7.350-7.450 Arterial Blood Partial Pressure CO2 32 L 35-48 mmHg Arterial Blood Partial Pressure O2 67.5 L 83.0-108.0 mmHg Arterial Blood HCO3 23.1 21.0-28.0 mmol/L Arterial Blood Oxygen Saturation 92.8 L 94.0-98.0 % Arterial Blood Base Excess 0.1 -2.0-3.0 mmol/L Hemoglobin (Blood Gas) 11.5 L 13.5-17.5 g/dL Sodium (Blood Gas) 136 136-145 MMOL/L Bedside Potassium (Blood Gas) 3.7 3.4-4.5 MMOL/L Bedside Chloride (Blood Gas) 99 98-107 MMOL/L Bedside Glucose (Blood Gas) 219 H 65-95 MG/DL Bedside Ionized Calcium (Blood Gas) 1.09 L 1.15-1.33 MMOL/L Bedside Lactic Acid (Blood Gas) 1.42 H 0.36-0.75 MMOL/L Blood Gas Temperature 37.0 35.5-37.0 CELSIUS Blood Gas Vent Mode RA ROOM AIR FiO2 21.0 % Blood Gas Specimen Comment MARGUERITE RN, RB Ammonia 26 11-32 umol/L Thyroid Stimulating Hormone (TSH) 4.34 #H 0.36-3.74 uIU/mL Test 02/20/25 09:19 Range/Units Blood Gas Flow-by 2.00 0.00-15.00 L/min Current Medications Medications (Trade) Dose Ordered Sig/Carol Route PRN Reason Start Time Stop Time Status Last Admin Dose Admin Acetaminophen (TYLenol 325MG TAB) 650 mg Q4H PRN PO MILD PAIN (1-3) 02/10/25 05:00 02/14/25 10:05 DC Acetaminophen (TYLenol 325MG TAB) 650 mg Q4H PRN PO Temp >38.3C(AFTER EXTUBATION) 02/14/25 10:00 03/16/25 09:59 Acetaminophen (TYLenol 325MG TAB) 650 mg Q6H PRN PO TEMPERATURE GREATER THAN 101.5 02/10/25 05:00 02/14/25 10:17 DC 02/12/25 17:13 650 MG Acetaminophen (TYLenol 325MG TAB) 650 mg Q6H PRN PO MILD PAIN (1-3) 02/14/25 10:00 03/16/25 09:59 Acetaminophen (TYLenol 650MG SUPPOSITORY) 650 mg Q4H PRN RC Temp >38.3C WHILE INTUBATED 02/14/25 10:00 03/16/25 09:59 Acetaminophen (acetaMINOPHEN 1,000MG/100ML) 1,000 mg Q6H6 IV 02/14/25 14:00 02/15/25 13:59 DC 02/15/25 12:14 1,000 MG Albumin Human 50 ml @ 0 mls/hr Q12H9 IV 02/20/25 09:00 02/25/25 08:59 02/21/25 11:16 50 MLS/HR Albumin Human 250 ml @ 0 mls/hr AD IV 02/14/25 15:30 02/18/25 10:40 DC 02/18/25 10:27 250 MLS/HR Albumin Human 250 ml @ 0 mls/hr AD IV 02/18/25 10:30 02/20/25 09:03 DC Albumin Human 250 ml @ 0 mls/hr AD PRN IV IF HEMODYNAMICALLY UNSTABLE 02/14/25 10:00 02/14/25 14:42 DC 02/14/25 14:42 500 MLS/HR Aminocaproic Acid 43012 mg/Sodium Chloride 310 ml @ 25 mls/hr AD IV 02/14/25 10:00 02/14/25 10:19 DC Aminocaproic Acid 32210 mg/Sodium Chloride 480 ml @ 0 mls/hr AD PRN IV BLEEDING CONTROL 02/14/25 06:30 03/16/25 06:29 Aminocaproic Acid 29284 mg/Sodium Chloride 480 ml @ 0 mls/hr AD PRN IV BLEEDING CONTROL 02/14/25 07:00 02/14/25 06:51 DC Aspirin (Aspirin 325mg Tab) 325 mg ONCE PO 02/10/25 14:30 02/10/25 17:22 DC 02/10/25 14:32 325 MG Aspirin (Aspirin 81mg Ec Tab) 81 mg DAILY PO 02/10/25 09:00 03/12/25 08:59 02/19/25 08:13 81 MG Atorvastatin Calcium (LIPItor 40MG) 40 mg HS PO 02/14/25 21:00 03/16/25 20:59 02/20/25 20:05 40 MG Calcium Gluconate 1 gm/Sodium Chloride 60 ml @ 200 mls/hr AD PRN IV HYPOCALCEMIA 02/14/25 10:00 03/16/25 09:59 02/21/25 08:36 200 MLS/HR Carvedilol (Coreg 3.125MG) 3.125 mg BID PO 02/20/25 21:00 03/22/25 20:59 Cefazolin Sodium (Ancef) 2 gm ONCALL IVP 02/13/25 20:00 02/14/25 18:51 DC 02/14/25 08:50 2 GM Cefazolin Sodium (Ancef) 2 gm Q8H IVPB 02/14/25 15:00 02/15/25 07:01 DC 02/15/25 06:25 2 GM Cefepime HCl (MAXipime 1 GM vial) 1 gm Q12H IVPB 02/16/25 10:30 02/20/25 08:16 DC 02/19/25 22:54 1 GM Clopidogrel Bisulfate (plaVIX 300MG TAB) 600 mg ONCE PO 02/10/25 14:00 02/10/25 17:22 DC 02/10/25 14:19 600 MG Clopidogrel Bisulfate (plaVIX 75MG) 75 mg DAILY PO 02/11/25 09:00 02/11/25 07:28 DC Dexmedetomidine/ Sodium Chloride (PRECEdex 400MCG/ 100ML-NS) 400 mcg PROTOCOL IV 02/14/25 10:00 02/15/25 09:59 DC Dexmedetomidine/ Sodium Chloride (PRECEdex 400MCG/ 100ML-NS) 400 mcg PROTOCOL IV 02/20/25 07:30 03/22/25 07:29 02/21/25 12:42 400 MCG Dextrose (D50w) 50 ml AD PRN IV HYPOGLYCEMIA PROTOCOL 02/10/25 05:00 02/14/25 10:17 DC Dextrose (D50w) 50 ml AD PRN IV HYPOGLYCEMIA PROTOCOL 02/14/25 10:00 03/16/25 09:59 Docusate Sodium (COLace 100MG CAP) 100 mg BID PO 02/14/25 21:00 03/16/25 20:59 02/20/25 20:05 100 MG Empaglifozin (Jardiance 10mg) 10 mg DAILY PO 02/10/25 14:30 02/14/25 09:59 DC 02/13/25 10:52 10 MG Empaglifozin (Jardiance 10mg) 10 mg DAILY PO 02/20/25 09:00 03/22/25 08:59 02/20/25 09:14 10 MG Enoxaparin Sodium (Lovenox) 30 mg DAILY SQ 02/17/25 09:00 03/19/25 08:59 02/19/25 08:13 30 MG Epinephrine HCl 10 mg/Sodium Chloride 250 ml @ 0 mls/hr AD PRN IV TITRATE 02/14/25 06:30 03/16/25 06:29 02/20/25 17:32 2.9 MLS/HR Epinephrine HCl 10 mg/Sodium Chloride 250 ml @ 0 mls/hr AD PRN IV TITRATE 02/14/25 07:00 02/14/25 06:51 DC Epinephrine HCl 10 mg/Sodium Chloride 250 ml @ 0 mls/hr AD PRN IV POST-OP CARDIOVASCULAR ORDERS 02/14/25 10:00 02/14/25 10:14 DC Famotidine (Pepcid 20mg Vial) 20 mg BID IV 02/14/25 21:00 02/16/25 07:58 DC 02/15/25 20:15 20 MG Famotidine (Pepcid 20mg Tab) 20 mg BID PO 02/16/25 09:00 02/17/25 07:09 DC 02/16/25 20:03 20 MG Famotidine (Pepcid 20mg Tab) 20 mg DAILY PO 02/10/25 09:00 02/14/25 09:59 DC 02/13/25 10:53 20 MG Famotidine (Pepcid 20mg Tab) 20 mg DAILY PO 02/17/25 09:00 03/18/25 08:59 02/19/25 08:13 20 MG Furosemide (LASix 20MG TAB) 20 mg DAILY PO 02/11/25 09:00 02/14/25 09:59 DC 02/13/25 10:52 20 MG Furosemide (LASix 20MG TAB) 20 mg Q12H PO 02/16/25 09:00 02/16/25 10:21 DC 02/16/25 08:19 20 MG Furosemide (LASix 20MG VIAL) 20 mg ONCE IV 02/10/25 17:00 02/10/25 21:00 DC 02/10/25 17:00 20 MG Furosemide (LASix 20MG VIAL) 20 mg ONCE IV 02/11/25 09:00 02/11/25 07:43 DC Furosemide (LASix 20MG VIAL) 20 mg Q12H IV 02/15/25 09:00 02/16/25 08:59 DC 02/15/25 20:16 20 MG Furosemide (LASix 20MG VIAL) 20 mg Q12H IV 02/20/25 09:00 03/22/25 08:59 02/20/25 20:05 20 MG Furosemide 100 mg/ Sodium Chloride 100 ml @ 0 mls/hr PROTOCOL IV 02/16/25 10:30 02/20/25 09:01 DC 02/19/25 11:35 2.5 MLS/HR Glucagon (Glucagon 1mg Kit) 1 mg AD PRN IM HYPOGLYCEMIA PROTOCOL 02/10/25 05:00 02/14/25 10:17 DC Glucagon (Glucagon 1mg Kit) 1 mg AD PRN IM HYPOGLYCEMIA PROTOCOL 02/14/25 10:00 03/16/25 09:59 Heparin Sodium (Porcine) (HEParin 5,000 UNIT VIAL) *calculation based on ACTUAL B... AD PRN IV HEPARIN PROTOCOL 02/12/25 21:00 02/14/25 09:59 DC 02/12/25 20:16 4,000 UNIT Heparin Sodium/ Dextrose 250 ml @ 0 mls/hr PROTOCOL IV 02/10/25 03:00 02/10/25 17:22 DC 02/10/25 03:00 16.2 MLS/HR Heparin Sodium/ Dextrose 250 ml @ 0 mls/hr Q6H IV 02/11/25 06:30 02/14/25 09:59 DC 02/13/25 13:01 9 MLS/HR Home Med (Home Medication) (Brimonidine-Timolol 0.2%/0.5% EYE DROPS) DAILY OP 02/18/25 09:00 03/20/25 08:59 02/21/25 08:45 1 EACH Insulin Glargine (LANtus 100 UNITS/ML 10 ML VIAL) 10 units DAILY SQ 02/21/25 09:00 03/23/25 08:59 Insulin Glargine (LANtus 100 UNITS/ML 10 ML VIAL) 12 units DAILY08 SQ 02/13/25 08:00 02/14/25 09:59 DC 02/13/25 10:51 12 UNITS Insulin Glargine (LANtus 100 UNITS/ML 10 ML VIAL) 15 units DAILY08 SQ 02/11/25 08:00 02/13/25 05:24 DC 02/12/25 08:54 15 UNITS Insulin Human Regular (humuLIN R 100 UNIT/ML 3ML) 3 unit TIDAC SQ 02/12/25 07:30 02/14/25 09:59 DC 02/12/25 16:31 3 UNIT Insulin Human Regular (humuLIN R 100 UNIT/ML 3ML) INSULIN SLIDING SCAL... ACHS SQ 02/16/25 11:30 03/18/25 11:29 02/21/25 06:34 2 UNIT Insulin Human Regular (humuLIN R 100 UNIT/ML 3ML) INSULIN SLIDING SCAL... Q4H SQ 02/10/25 05:00 02/10/25 11:10 DC 02/10/25 09:15 6 UNIT Insulin Human Regular (humuLIN R 100 UNIT/ML 3ML) INSULIN SLIDING SCAL... Q6H6 SQ 02/10/25 12:00 02/14/25 09:59 DC 02/11/25 17:29 2 UNIT Insulin Human Regular 100 unit/ Sodium Chloride 100 ml @ 0 mls/hr AD IV 02/14/25 10:00 02/16/25 09:59 DC 02/15/25 06:30 3 MLS/HR Lactulose (Constulose 20gm/ 30ml Udcup) 20 gm BID PRN PO CONSTIPATION 02/14/25 10:00 03/16/25 09:59 Latanoprost (Xalatan) 1 DROP FOR EACH EYE HS OP 02/17/25 21:00 03/19/25 20:59 02/19/25 22:55 1 DROP Magnesium Hydroxide (Milk Of Magnesium 30ml) 30 ml DAILY PRN PO CONSTIPATION 02/14/25 10:00 03/16/25 09:59 Magnesium Sulfate 50 ml @ 12.5 mls/hr AD PRN IV MAG LEVEL LESS THAN 2.0 02/14/25 10:00 03/16/25 09:59 02/21/25 09:33 12.5 MLS/HR Magnesium Sulfate 50 ml @ 0 mls/hr PROTOCOL PRN IV OTHER [SEE ORDER COMMENTS] 02/10/25 05:00 02/14/25 10:17 DC 02/12/25 07:13 25 MLS/HR Metoprolol Tartrate (loprESSOR) 12.5 mg BID PO 02/12/25 09:00 02/14/25 09:59 DC 02/14/25 06:44 12.5 MG Metoprolol Tartrate (loprESSOR) 12.5 mg BID PO 02/16/25 09:00 02/20/25 09:01 DC Morphine Sulfate (morPHINE 2MG SYG) 0.5 mg Q2H PRN IV MODERATE PAIN (4-6) IF NPO 02/14/25 10:00 02/15/25 09:59 DC Morphine Sulfate (morPHINE 2MG SYG) 1 mg Q2H PRN IV SEVERE PAIN (7-10) IF NPO 02/14/25 10:30 02/19/25 13:29 DC 02/14/25 14:23 1 MG Nitroglycerin (Nitrostat) 0.4 mg PROTOCOL PRN SL CHEST PAIN 02/10/25 05:00 02/14/25 09:59 DC Nitroglycerin/ Dextrose 0 ml @ 0 mls/hr AD IV 02/14/25 10:00 02/17/25 09:59 DC Norepinephrine Bitartrate 250 ml @ 0 mls/hr AD PRN IV TITRATE 02/14/25 06:30 03/16/25 06:29 02/17/25 01:06 1.9 MLS/HR Norepinephrine Bitartrate 250 ml @ 0 mls/hr AD PRN IV TITRATE 02/14/25 07:00 02/14/25 06:51 DC Norepinephrine Bitartrate 8 mg/ Dextrose 250 ml @ 0 mls/hr AD PRN IV POST-OP CARDIOVASCULAR ORDERS 02/14/25 10:00 02/14/25 10:14 DC Ondansetron HCl (zoFRAN 4MG INJ) 4 mg Q6H PRN IV NAUSEA/VOMITING 02/10/25 05:00 02/14/25 10:17 DC Ondansetron HCl (zoFRAN 4MG INJ) 4 mg Q6H PRN IV NAUSEA/VOMITING 02/14/25 10:00 03/16/25 09:59 Pharmacy Profile Note (Pharmacy Communication) 1 each ONCE MISC 02/14/25 18:00 02/14/25 18:27 DC Pharmacy Profile Note (Pharmacy Communication) 1 each ONCE MISC 02/20/25 11:30 02/20/25 11:19 DC Piperacillin Sod/ Tazobactam Sod 50 ml @ 12.5 mls/hr Q8H IVPB 02/20/25 11:30 03/02/25 11:29 02/21/25 11:18 12.5 MLS/HR Potassium Phosphate 250 ml @ 42 mls/hr AD PRN IV LOW PHOS LEVEL 02/14/25 10:00 03/16/25 09:59 Potassium Chloride 100 ml @ 100 mls/hr AD PRN IV POTASSIUM PROTOCOL 02/10/25 05:00 02/15/25 06:27 DC 02/15/25 05:43 100 MLS/HR Potassium Chloride 100 ml @ 100 mls/hr AD PRN IV HYPOKALEMIA 02/14/25 10:00 03/16/25 09:59 02/21/25 11:17 100 MLS/HR Potassium Chloride (K-Dur/Klor-Con 20meq) 20 meq AD PRN PO POTASSIUM PROTOCOL 02/10/25 05:00 03/12/25 04:59 02/18/25 20:18 20 MEQ Potassium Chloride (K-Dur/Klor-Con 20meq) 20 meq BID PO 02/19/25 10:30 03/21/25 10:29 02/19/25 20:32 20 MEQ Potassium Chloride (KCl 10% Elixir 20meq/15ml) 20 meq AD PRN PO POTASSIUM PROTOCOL 02/10/25 05:00 03/12/25 04:59 02/17/25 05:52 20 MEQ Propofol 100 ml @ 0 mls/hr AD PRN IV SEDATION 02/14/25 10:00 02/18/25 09:59 DC Sacubitril/ Valsartan (Entresto 24 Mg-26 Mg Tablet) 0.5 each BID PO 02/10/25 21:00 02/14/25 09:59 DC 02/13/25 21:11 0.5 EACH Sodium Bicarbonate 25 meq/Dextrose 1,025 ml @ 0 mls/hr Q0M IV 02/14/25 18:00 03/16/25 17:59 02/18/25 13:03 9.9 MLS/HR Sodium Bicarbonate (Sodium Bicarb 50meq 50ml Vial) 50 meq AD PRN IV OTHER[SEE DOSING INSTRUCTIONS] 02/14/25 10:00 02/17/25 09:59 DC 02/16/25 15:25 50 MEQ Sodium Chloride 500 ml @ 0 mls/hr AD IV 02/14/25 10:00 03/16/25 09:59 Sodium Chloride 1,000 ml @ 10 mls/hr ONCE IV 02/14/25 10:00 02/15/25 09:59 DC Sodium Chloride 1,000 ml @ 100 mls/hr Q10H IV 02/10/25 05:00 02/10/25 17:22 DC 02/10/25 14:20 100 MLS/HR Sodium Chloride (NS Flush 10ml) 10 ml Q8H PRN IVP IV LINE FLUSH 02/14/25 10:00 03/16/25 09:59 Spironolactone (Aldactone 25mg) 25 mg DAILY PO 02/10/25 14:30 02/14/25 09:59 DC 02/13/25 10:52 25 MG Spironolactone (Aldactone 25mg) 25 mg DAILY PO 02/20/25 09:00 03/22/25 08:59 02/20/25 09:15 25 MG Tramadol HCl (UltRAM) 25 mg Q6H PRN PO MODERATE PAIN (4-6) 02/14/25 10:00 02/19/25 09:59 DC Tramadol HCl (UltRAM) 50 mg Q6H PRN PO SEVERE PAIN (7-10) 02/14/25 10:00 02/19/25 09:59 DC Vancomycin HCl 250 ml @ 125 mls/hr Q12H IV 02/18/25 11:30 02/21/25 05:33 DC 02/19/25 11:20 125 MLS/HR Vancomycin HCl 250 ml @ 125 mls/hr Q24H IV 02/21/25 06:00 02/28/25 11:29 02/21/25 06:09 125 MLS/HR Vancomycin HCl (Vancomycin Protocol) 1 each AD IV 02/18/25 11:00 03/04/25 10:59 Vasopressin 40 units/Sodium Chloride 40 ml @ 0 mls/hr PROTOCOL IV 02/14/25 13:00 03/16/25 12:59 02/14/25 22:11 1.8 MLS/HR DIAGNOSTICS / RADIOLOGY: [ ] ASSESSMENT: Chest pain rule out ACS: NSTEMI POA Suspected pneumonia findings on Chest X-ray Hyperglycemia secondary to uncontrolled diabetes POA Hyperlipidemia POA Medication noncompliance, POA Obesity POA MS/Coronary artery disease with cardiac stent POA PLAN: NSTEMI POA: * EKG was done which revealed sinus rhythm heart rate 85 with atrial premature complex anterolateral infarct age indeterminate. Second EKG result revealed sinus rhythm heart rate 73 with left anterior fascicular block. Probable anterolateral infarct age indeterminate. Abnormal T consider ischemia lateral leads. * PERC score was one, Wells score was zero. Very low suspicion for Pulmonary Embolism. * Chest x-ray done on 02/17/25 show, small stable left pleural effusion with adjacent lung atelectasis. follow up x-ray from 02/19/25 show no interval change. * 2-D ECHO on 02/19/25 show LVEF of 25-30% with segmental akinesis (apical, apical lateral, anteroapical), LDL 89, BNP 488 * Troponin trends [id number] * Left heart catheterization revealed severe three-vessel CAD with occluded mid LAD, 90% proximal left circumflex, 95% distal RCA, and 90% ostial PDA. * As per CT surgeon recommendations Entresto 0.5 each, Aldactone 25mg, Jardiance 10mg were held. 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 * On aspirin 81 mg p.o. * Patient started on lasix 20mg IV. His total output in the past 24 hours has been 6700 versus 1785 * Continuing on Epinephrine drip. * Impella scheduled for removal today (02/21/25). Suspected pneumonia findings on Chest X-ray * Chest x-ray done on 02/16/25 show diffuse airspace disease of the left lung, predominantly involving the left lower zone, could be due to an infection or atelectasis. Questionable left pleural effusion. * Chest x-ray done on 02/17/25 show, small stable left pleural effusion with adjacent lung atelectasis. follow up x-ray from 02/19/25 show no interval change. * Patient started on Zosyn from 02/20/25 * WBC count on (02/20/25) - 17.9 * Will monitor with daily labs. Hyperglycemia secondary to uncontrolled diabetes POA: * HbA1c 13.9, blood glucose 181 * Following the Endocrinology recommendations. He is on Lantus 15 units, low- dose sliding scale insulin and Jardiance 10 mg * We will monitor blood glucose. Hypokalemia Hypomagnesemia * Potassium 3.6, magnesium 1.8 (02/21/25) * We will replete the electrolytes and monitor. * Keep potassium above 4 and magnesium above 2. * We will start Slow-Mag oral t.i.d. once and will keep monitoring magnesium levels. Supportive measures * GI prophylaxis with Famotidine * DVT prophylaxis with SCD's ATTESTATION BY PHYSICIAN I have seen and examined the patient. I reviewed the documentation, medical decision making, and treatment plan as noted by the resident physician above. I agree with the findings and plan of care. Jason Hare IV, MD, SHAJI MD Feb 21, 2025 15:29
--- NOTE | 2025-02-21 15:44 | PN ---
[facility] PROGRESS NOTE Date Patient Seen: Feb 21, 2025 Time of Visit: 15:41 Supervising Physician: AJITH SCANLON MD Primary Care Physician: KELLEY ENCINAS MD Outpatient Specialists: Inpatient Consults: BIS PROBLEM LIST: CAD, status post CABG x3 Impella and a intra-aortic balloon pump support Type 2 diabetes Congested heart failure EF 20% Obstructive coronary artery disease Atherosclerosis Primary hypertension Morbid obesity; BMI 36 Cardiogenic shock INTERVAL HISTORY: Patient seen and evaluated, remains on low-dose Precedex. Afebrile, no acute distress Patient is more awake, more alert Cefepime was discontinued currently on Zosyn Patient with generalized Weakness and fatigue remains on supplemental oxygen Voiding, no urgency or hematuria Systolic blood pressure remains in the 120s Denies palpitations, denies chest pain. REVIEW OF SYSTEMS: 12 point ROS reviewed with patient. Pertinent positives mentioned above. Otherwise negative. PHYSICAL EXAM: GENERAL: Patient comfortable in bed, HEENT: EOMI, Sclera non icteric, moist mucosa NECK: Supple, no JVD, trachea midline LUNGS: Clear breath sounds bilaterally. No wheezes HEART: Regular rate and rhythm. Normal S1 and S2, without murmurs sternum wound looks clean, no bleeding or discharge. ABD: Abdomen soft, nontender. Bowel sounds present EXT: No clubbing cyanosis or edema NEURO: Awake alert and oriented Vital Signs (last 8hr) Date Time Temp Pulse Resp B/P (MAP) Pulse Ox O2 Delivery O2 Flow Rate FiO2 02/21/25 12:00 100 Nasal Cannula* 3 32 02/21/25 11:23 88 27 100 36 119/64 (82) 02/21/25 11:08 88 17 100 36 126/71 (89) 02/21/25 10:53 89 17 100 36 127/77 (94) 02/21/25 10:38 89 17 100 36 127/76 (93) 02/21/25 10:22 89 19 100 36 123/80 (94) 02/21/25 10:08 90 17 100 36 121/73 (89) 02/21/25 09:52 90 16 100 36 123/77 (92) 02/21/25 09:38 90 17 100 36 122/76 (91) 02/21/25 09:22 90 16 100 36 132/79 (96) 02/21/25 09:08 89 16 100 36 128/79 (95) 02/21/25 08:52 89 19 100 36 122/79 (93) 02/21/25 08:38 89 19 100 36 117/72 (87) 02/21/25 08:23 89 17 100 36 131/85 (100) 02/21/25 08:08 84 21 126/84 (98) 100 36 02/21/25 08:00 100 Nasal Cannula* 3 32 02/21/25 07:53 88 16 131/86 (101) 100 36 LABS: Hematology Labs: Test 02/21/25 04:21 Range/Units White Blood Count 17.9 H 4.8-10.8 K/uL Red Blood Count 3.19 L 4.50-6.20 MIL/uL Hemoglobin 9.6 L 14.0-18.0 g/dL Hematocrit 27.9 L 42-54 % Mean Corpuscular Volume 87.5 79-99 fL Mean Corpuscular Hemoglobin 30.1 27.0-33.0 pg Mean Corpuscular Hemoglobin Concent 34.4 32.0-36.0 g/dL Red Cell Distribution Width 13.9 11.0-15.5 % Platelet Count 299 # 130-400 K/uL Mean Platelet Volume 11.8 H 7.5-10.5 fL Immature Granulocyte % (Auto) 13.3 H 0-1 % Neutrophils (%) (Auto) 59.5 40.0-77.0 % Lymphocytes (%) (Auto) 14.7 L 21.0-51.0 % Monocytes (%) (Auto) 10.4 3.0-13.0 % Eosinophils (%) (Auto) 1.0 0.0-8.0 % Basophils (%) (Auto) 1.1 0.0-5.0 % Neutrophils # (Auto) 10.6 H 1.8-7.7 K/uL Lymphocytes # (Auto) 2.6 1.0-4.8 K/uL Monocytes # (Auto) 1.9 H 0.1-1.0 K/uL Eosinophils # (Auto) 0.17 0.00-0.70 K/uL Basophils # (Auto) 0.20 0.00-0.20 K/uL Absolute Immature Granulocyte (auto 2.37 H 0-1 K/uL Nucleated Red Blood Cells 1.0 H 0.0-0.19 % Chemistry Labs: Test 02/21/25 11:34 02/21/25 04:21 02/20/25 09:27 Range/Units Whole Blood Glucose 193 H 70-110 MG/DL Sodium Level 134 L 136-145 mmol/L Potassium Level 3.6 3.5-5.1 mmol/L Chloride Level 95 L 101-111 mmol/L Carbon Dioxide Level 23 21-32 mmol/L Blood Urea Nitrogen 16 7-18 mg/dL Creatinine 0.7 0.5-1.3 mg/dL Glomerular Filtration Rate Calc 95 >90 mL/min Random Glucose 209 H 70-105 mg/dL Total Calcium 8.3 L 8.5-10.1 mg/dL Magnesium Level 1.80 1.80-2.40 mg/dL Total Bilirubin 1.9 #H 0.2-1.0 mg/dL Aspartate Amino Transf (AST/SGOT) 29 10-37 U/L Alanine Aminotransferase (ALT/SGPT) 26 12-78 U/L Alkaline Phosphatase 73 50-136 U/L Total Protein 6.1 6.0-8.3 g/dL Albumin 2.7 #L 3.5-5.0 g/dL Ammonia 26 11-32 umol/L Thyroid Stimulating Hormone (TSH) 4.34 #H 0.36-3.74 uIU/mL Coagulation Labs: Test 02/21/25 04:21 Range/Units Prothrombin Time 11.9 H 9.6-11.6 SEC Prothromb Time International Ratio 1.14 0.85-1.15 Activated Partial Thromboplast Time 31.0 26.3-35.5 SEC Fibrinogen 550 *H 180-350 mg/dL DIAGNOSTICS / RADIOLOGY RESULTS: [ ] PLAN Continue ICU medical management Wean off Precedex Monitor urinary output Telemetry monitoring Continue Zosyn Incentive spirometry daily Follow cardiology recommendations Optimize cardiac medications NEURO: Minimize central acting medications as possible. Fall Precautions. Well lighted room through the day and minimize interruptions through the night t o prevent acute delirium. PULMONARY: Supplemental 02 as needed Titrate Fio2 to keep Spo2 > or = 90% DuoNebs and CPT as needed IS hourly while awake for pulmonary hygiene Out of bed to chair as tolerated VAP Bundle Vent/BIPAP Settings: [ ] Driving pressure: [ ] P Plat: [ ] Static C: [ ] Static R: [ ] P/F Ratio: [ ] CARDIOVASCULAR: Follow hemodynamics. Titrate vasopressor to keep MAP >65 or systolic blood pressure >95mmHg DIPS: [ ] LINES: [ ] GI & NUTRITION: Continue nutritional support Aspirations precautions Prokinetic agents and laxatives as needed KIDNEYS & ELECTROLYTES: Strict monitoring of intake and output Daily weights Avoid nephrotoxic agents Monitor electrolytes and replace as needed Goal urine output of 30mL/hr or 0.5mL/kg/hr Urine output: [ ] Fluid Balance: [ ] ENDOCRINE: Maintain blood glucose between 100-180 at all times. Insulin sliding scale for blood glucose management INFECTIOUS DISEASE: Trend temperature. Caldwell-culture if febrile. Micro: [ ] Antibiotics: [ ] HEMATOLOGY & COAGULATION: Monitor H&H. Keep Hgb > 7 Transfuse 1 unit of PRBC for Hgb < 7 Transfuse 1 pack of platelets of platelets < 20, 000 Watch for any signs and symptoms of bleeding SKIN: Pressure ulcer prevention per facility protocol Rehab: PT/OT Prophylaxis: GI: [Protonix ] DVT: [Lovenox ] Code Status: Full Resuscitation Disposition: [ Continue medical management in the ICU] Total critical care time 35 minutes I personally scribed for AJITH SCANLON MD ([email or web address]) on 02/21/25 at 15:44. Elect ronically submitted by Jason Garcia ([email or web address]). AJITH SCANLON MD Feb 21, 2025 15:44
--- NOTE | 2025-02-21 16:14 | PN ---
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 His is very pleased with the improvement in status. His Impella has been removed in his blood pressure and rhythm are stable. Patient is overweight, alert, oriented, and conversant. No JVD, no rales, diminished breath sounds at bases noted. First and second heart sounds auscultated but mildly depressed in intensity, no murmur. Abdomen protuberant with normal bowel sounds, no bleeding from access site for Impella. Impression and plan: Stable and improving, continue current treatment. Out of bed when able. Vitals/Labs Vital Signs Date Time Temp Pulse Resp B/P (MAP) Pulse Ox O2 Delivery O2 Flow Rate FiO2 02/21/25 15:15 78 48 136/65 (88) 100 36 02/21/25 12:00 98.4 02/21/25 12:00 Nasal Cannula* 3 Laboratory Tests 02/21/25 04:21 Medications Current Medications Sodium Chloride 1,000 ml @ 0 mls/hr ONCE ONCE IV; Start 02/10/25 at 01:00; Stop 02/10/25 at 00:46; Status DC Sodium Chloride 500 ml @ 0 mls/hr ONCE ONCE IV Last administered on 02/10/25at 00:53; Start 02/10/25 at 01:00; Stop 02/10/25 at 01:01; Status DC Insulin Human Regular 5 unit ONCE ONCE IV Last administered on 02/10/25at 01:30; Start 02/10/25 at 01:30; Stop 02/10/25 at 01:31; Status DC Aspirin 325 mg ONCE ONCE PO Last administered on 02/10/25at 02:32; Start 02/10/25 at 02:30; Stop 02/10/25 at 02:31; Status DC Heparin Sodium/ Dextrose 250 ml @ 0 mls/hr PROTOCOL IV Last administered on 02/10/25at 03:00; Start 02/10/25 at 03:00; Stop 02/10/25 at 17:22; Status DC Heparin Sodium (Porcine) 7,000 unit ONCE ONCE SQ Last administered on 02/10/25at 02:55; Start 02/10/25 at 03:00; Stop 02/10/25 at 03:01; Status DC Acetaminophen 650 mg Q6H PRN PO Last administered on 02/12/25at 17:13; Start 02/10/25 at 05:00; Stop 02/14/25 at 10:17; Status DC Acetaminophen 650 mg Q4H PRN PO; Start 02/10/25 at 05:00; Stop 02/14/25 at 10:05; Status DC Ondansetron HCl 4 mg Q6H PRN IV; Start 02/10/25 at 05:00; Stop 02/14/25 at 10:17; Status DC Nitroglycerin 0.4 mg PROTOCOL PRN SL; Start 02/10/25 at 05:00; Stop 02/14/25 at 09:59; Status DC Famotidine 20 mg DAILY PO Last administered on 02/13/25at 10:53; Start 02/10/25 at 09:00; Stop 02/14/25 at 09:59; Status DC Sodium Chloride 1,000 ml @ 100 mls/hr Q10H IV Last administered on 02/10/25at 14:20; Start 02/10/25 at 05:00; Stop 02/10/25 at 17:22; Status DC Insulin Human Regular INSULIN SLIDING SCAL... Q4H SQ Last administered on 02/10/25at 09:15; Start 02/10/25 at 05:00; Stop 02/10/25 at 11:10; Status DC Dextrose 50 ml AD PRN IV; Start 02/10/25 at 05:00; Stop 02/14/25 at 10:17; Status DC Glucagon 1 mg AD PRN IM; Start 02/10/25 at 05:00; Stop 02/14/25 at 10:17; Status DC Magnesium Sulfate 50 ml @ 0 mls/hr PROTOCOL PRN IV Last administered on 02/12/25at 07:13; Start 02/10/25 at 05:00; Stop 02/14/25 at 10:17; Status DC Potassium Chloride 100 ml @ 100 mls/hr AD PRN IV Last administered on 02/15/25at 05:43; Start 02/10/25 at 05:00; Stop 02/15/25 at 06:27; Status DC Potassium Chloride 20 meq AD PRN PO Last administered on 02/17/25at 05:52; Start 02/10/25 at 05:00; Stop 03/12/25 at 04:59 Potassium Chloride 20 meq AD PRN PO Last administered on 02/18/25at 20:18; Start 02/10/25 at 05:00; Stop 03/12/25 at 04:59 Aspirin 81 mg DAILY PO Last administered on 02/21/25at 15:14; Start 02/10/25 at 09:00; Stop 03/12/25 at 08:59 Insulin Human Regular INSULIN SLIDING SCAL... Q6H6 SQ Last administered on 02/11/25at 17:29; Start 02/10/25 at 12:00; Stop 02/14/25 at 09:59; Status DC Clopidogrel Bisulfate 600 mg ONCE PO Last administered on 02/10/25at 14:19; Start 02/10/25 at 14:00; Stop 02/10/25 at 17:22; Status DC Aspirin 325 mg ONCE PO Last administered on 02/10/25at 14:32; Start 02/10/25 at 14:30; Stop 02/10/25 at 17:22; Status DC Sacubitril/ Valsartan 0.5 each BID PO Last administered on 02/13/25at 21:11; Start 02/10/25 at 21:00; Stop 02/14/25 at 09:59; Status DC Empaglifozin 10 mg DAILY PO Last administered on 02/13/25at 10:52; Start 02/10/25 at 14:30; Stop 02/14/25 at 09:59; Status DC Spironolactone 25 mg DAILY PO Last administered on 02/13/25at 10:52; Start 02/10/25 at 14:30; Stop 02/14/25 at 09:59; Status DC Furosemide 20 mg ONCE IV Last administered on 02/10/25at 17:00; Start 02/10/25 at 17:00; Stop 02/10/25 at 21:00; Status DC Furosemide 20 mg ONCE IV; Start 02/11/25 at 09:00; Stop 02/11/25 at 07:43; Status DC Lidocaine HCl 20 ml STK-MED ONCE .ROUTE; Start 02/10/25 at 15:22; Stop 02/10/25 at 15:23; Status DC Iohexol 35,000 mg STK-MED ONCE IV; Start 02/10/25 at 15:22; Stop 02/10/25 at 15:23; Status DC Iohexol 50 ml STK-MED ONCE IV; Start 02/10/25 at 15:22; Stop 02/10/25 at 15:23; Status DC Heparin Sodium (Porcine) 10,000 unit STK-MED ONCE .ROUTE; Start 02/10/25 at 15:23; Stop 02/10/25 at 15:23; Status DC Heparin Sodium/ Sodium Chloride 1,000 ml @ As Directed STK-MED ONCE IV; Start 02/10/25 at 15:23; Stop 02/10/25 at 15:23; Status DC Nitroglycerin 50 mg STK-MED ONCE .ROUTE; Start 02/10/25 at 15:23; Stop 02/10/25 at 15:23; Status DC Heparin Sodium/ Sodium Chloride 500 ml @ As Directed STK-MED ONCE IV; Start 02/10/25 at 15:35; Stop 02/10/25 at 15:35; Status DC Fentanyl Citrate 100 mcg STK-MED ONCE .ROUTE; Start 02/10/25 at 15:39; Stop 02/10/25 at 15:40; Status DC Midazolam HCl 2 mg STK-MED ONCE .ROUTE; Start 02/10/25 at 15:40; Stop 02/10/25 at 15:40; Status DC Bivalirudin 250 mg STK-MED ONCE IV; Start 02/10/25 at 16:15; Stop 02/10/25 at 16:15; Status DC Heparin Sodium (Porcine) 7,000 unit ONCE ONCE IV Last administered on 02/11/25at 05:46; Start 02/11/25 at 05:30; Stop 02/11/25 at 05:31; Status DC Heparin Sodium/ Dextrose 250 ml @ 0 mls/hr Q6H IV Last administered on 02/13/25at 13:01; Start 02/11/25 at 06:30; Stop 02/14/25 at 09:59; Status DC Clopidogrel Bisulfate 75 mg DAILY PO; Start 02/11/25 at 09:00; Stop 02/11/25 at 07:28; Status DC Insulin Glargine 15 units DAILY08 SQ Last administered on 02/12/25at 08:54; Start 02/11/25 at 08:00; Stop 02/13/25 at 05:24; Status DC Furosemide 20 mg DAILY PO Last administered on 02/13/25at 10:52; Start 02/11/25 at 09:00; Stop 02/14/25 at 09:59; Status DC Insulin Human Regular 3 unit TIDAC SQ Last administered on 02/12/25at 16:31; Start 02/12/25 at 07:30; Stop 02/14/25 at 09:59; Status DC Metoprolol Tartrate 12.5 mg BID PO Last administered on 02/14/25at 06:44; Start 02/12/25 at 09:00; Stop 02/14/25 at 09:59; Status DC Potassium Chloride 40 meq BID ONCE PO; Start 02/12/25 at 21:00; Stop 02/12/25 at 21:01; Status DC Magnesium Chloride 64 mg Q8H6 ONCE PO; Start 02/12/25 at 14:00; Stop 02/12/25 at 14:01; Status DC Heparin Sodium (Porcine) *calculation based on ACTUAL B... AD PRN IV Last administered on 02/12/25at 20:16; Start 02/12/25 at 21:00; Stop 02/14/25 at 09:59; Status DC Insulin Glargine 12 units DAILY08 SQ Last administered on 02/13/25at 10:51; Start 02/13/25 at 08:00; Stop 02/14/25 at 09:59; Status DC Cefazolin Sodium 2 gm ONCALL IVP Last administered on 02/14/25at 08:50; Start 02/13/25 at 20:00; Stop 02/14/25 at 18:51; Status DC Epinephrine HCl 10 mg/Sodium Chloride 250 ml @ 0 mls/hr AD PRN IV Last administered on 02/20/25at 17:32; Start 02/14/25 at 06:30; Stop 03/16/25 at 06:29 Norepinephrine Bitartrate 250 ml @ 0 mls/hr AD PRN IV Last administered on 02/17/25at 01:06; Start 02/14/25 at 06:30; Stop 03/16/25 at 06:29 Aminocaproic Acid 89914 mg/Sodium Chloride 480 ml @ 0 mls/hr AD PRN IV; Start 02/14/25 at 06:30; Stop 03/16/25 at 06:29 Epinephrine HCl 10 mg/Sodium Chloride 250 ml @ 0 mls/hr AD PRN IV; Start 02/14/25 at 07:00; Stop 02/14/25 at 06:51; Status DC Norepinephrine Bitartrate 250 ml @ 0 mls/hr AD PRN IV; Start 02/14/25 at 07:00; Stop 02/14/25 at 06:51; Status DC Aminocaproic Acid 58582 mg/Sodium Chloride 480 ml @ 0 mls/hr AD PRN IV; Start 02/14/25 at 07:00; Stop 02/14/25 at 06:51; Status DC Cefazolin Sodium 2 gm STK-MED ONCE .ROUTE; Start 02/14/25 at 06:53; Stop 02/14/25 at 06:53; Status DC Nitroglycerin/ Dextrose 1 ml @ As Directed STK-MED ONCE .ROUTE; Start 02/14/25 at 07:00; Stop 02/14/25 at 07:00; Status DC Cefazolin Sodium 1 gm STK-MED ONCE .ROUTE Last administered on 02/14/25at 10:09; Start 02/14/25 at 07:37; Stop 02/14/25 at 07:38; Status DC Heparin Sodium/ Sodium Chloride 500 ml @ As Directed STK-MED ONCE IV; Start 02/14/25 at 07:38; Stop 02/14/25 at 07:38; Status DC Papaverine HCl 60 mg STK-MED ONCE .ROUTE Last administered on 02/14/25at 10:10; Start 02/14/25 at 07:38; Stop 02/14/25 at 07:38; Status DC Midazolam HCl 2 mg STK-MED ONCE .ROUTE; Start 02/14/25 at 08:14; Stop 02/14/25 at 08:14; Status DC Ketamine HCl 500 mg STK-MED ONCE IJ; Start 02/14/25 at 08:16; Stop 02/14/25 at 08:16; Status DC Protamine Sulfate 250 mg STK-MED ONCE IV; Start 02/14/25 at 08:17; Stop 02/14/25 at 08:17; Status DC Lidocaine HCl 100 mg STK-MED ONCE .ROUTE; Start 02/14/25 at 08:17; Stop 02/14/25 at 08:17; Status DC Heparin Sodium (Porcine) 10,000 unit STK-MED ONCE .ROUTE; Start 02/14/25 at 08:17; Stop 02/14/25 at 08:17; Status DC Epinephrine HCl 1 mg STK-MED ONCE .ROUTE; Start 02/14/25 at 08:17; Stop 02/14/25 at 08:17; Status DC Sodium Bicarbonate 200 ml @ As Directed STK-MED ONCE .ROUTE; Start 02/14/25 at 08:17; Stop 02/14/25 at 08:17; Status DC Norepinephrine Bitartrate 4 mg STK-MED ONCE IV; Start 02/14/25 at 08:17; Stop 02/14/25 at 08:17; Status DC Propofol 200 mg STK-MED ONCE IV; Start 02/14/25 at 08:19; Stop 02/14/25 at 08:19; Status DC Fentanyl Citrate 1,000 mcg STK-MED ONCE IJ; Start 02/14/25 at 08:19; Stop 02/14/25 at 08:19; Status DC Midazolam HCl 2 mg STK-MED ONCE .ROUTE; Start 02/14/25 at 08:20; Stop 02/14/25 at 08:20; Status DC Rocuronium [place] 50 mg STK-MED ONCE .ROUTE; Start 02/14/25 at 08:20; Stop 02/14/25 at 08:20; Status DC Acetaminophen 1,000 mg Q6H6 IV Last administered on 02/15/25at 12:14; Start 02/14/25 at 14:00; Stop 02/15/25 at 13:59; Status DC Aspirin 81 mg ONCE ONCE NG Last administered on 02/14/25at 13:56; Start 02/14/25 at 14:00; Stop 02/14/25 at 14:01; Status DC Docusate Sodium 100 mg BID PO Last administered on 02/20/25at 20:05; Start 02/14/25 at 21:00; Stop 03/16/25 at 20:59 Lactulose 20 gm BID PRN PO; Start 02/14/25 at 10:00; Stop 03/16/25 at 09:59 Furosemide 20 mg Q12H PO Last administered on 02/16/25at 08:19; Start 02/16/25 at 09:00; Stop 02/16/25 at 10:21; Status DC Furosemide 20 mg Q12H IV Last administered on 02/15/25at 20:16; Start 02/15/25 at 09:00; Stop 02/16/25 at 08:59; Status DC Atorvastatin Calcium 40 mg HS PO Last administered on 02/20/25at 20:05; Start 02/14/25 at 21:00; Stop 03/16/25 at 20:59 Enoxaparin Sodium 30 mg DAILY SQ Last administered on 02/21/25at 15:15; Start 02/17/25 at 09:00; Stop 03/19/25 at 08:59 Metoprolol Tartrate 12.5 mg BID PO; Start 02/16/25 at 09:00; Stop 02/20/25 at 09:01; Status DC Magnesium Hydroxide 30 ml DAILY PRN PO; Start 02/14/25 at 10:00; Stop 03/16/25 at 09:59 Dexmedetomidine/ Sodium Chloride 400 mcg PROTOCOL IV; Start 02/14/25 at 10:00; Stop 02/15/25 at 09:59; Status DC Acetaminophen 650 mg Q6H PRN PO; Start 02/14/25 at 10:00; Stop 03/16/25 at 09:59 Heparin Sodium (Porcine) 10,000 unit STK-MED ONCE .ROUTE; Start 02/14/25 at 10:00; Stop 02/14/25 at 10:00; Status DC Sodium Chloride 1,000 ml @ 10 mls/hr ONCE IV; Start 02/14/25 at 10:00; Stop 02/15/25 at 09:59; Status DC Sodium Chloride 10 ml Q8H PRN IVP; Start 02/14/25 at 10:00; Stop 03/16/25 at 09:59 Morphine Sulfate 0.5 mg Q2H PRN IV; Start 02/14/25 at 10:00; Stop 02/15/25 at 09:59; Status DC Morphine Sulfate 1 mg Q2H PRN IV Last administered on 02/14/25at 14:23; Start 02/14/25 at 10:30; Stop 02/19/25 at 13:29; Status DC Acetaminophen 650 mg Q4H PRN RC; Start 02/14/25 at 10:00; Stop 03/16/25 at 09:59 Ondansetron HCl 4 mg Q6H PRN IV; Start 02/14/25 at 10:00; Stop 03/16/25 at 09:59 Sodium Chloride 500 ml @ 0 mls/hr AD IV; Start 02/14/25 at 10:00; Stop 03/16/25 at 09:59 Nitroglycerin/ Dextrose 0 ml @ 0 mls/hr AD IV; Start 02/14/25 at 10:00; Stop 02/17/25 at 09:59; Status DC Propofol 100 ml @ 0 mls/hr AD PRN IV; Start 02/14/25 at 10:00; Stop 02/18/25 at 09:59; Status DC Norepinephrine Bitartrate 8 mg/ Dextrose 250 ml @ 0 mls/hr AD PRN IV; Start 02/14/25 at 10:00; Stop 02/14/25 at 10:14; Status DC Epinephrine HCl 10 mg/Sodium Chloride 250 ml @ 0 mls/hr AD PRN IV; Start 02/14/25 at 10:00; Stop 02/14/25 at 10:14; Status DC Aminocaproic Acid 65226 mg/Sodium Chloride 310 ml @ 25 mls/hr AD IV; Start 02/14/25 at 10:00; Stop 02/14/25 at 10:19; Status DC Calcium Gluconate 1 gm/Sodium Chloride 60 ml @ 200 mls/hr AD PRN IV Last administered on 02/21/25at 08:36; Start 02/14/25 at 10:00; Stop 03/16/25 at 09:59 Magnesium Sulfate 50 ml @ 12.5 mls/hr AD PRN IV Last administered on 02/21/25at 09:33; Start 02/14/25 at 10:00; Stop 03/16/25 at 09:59 Potassium Chloride 100 ml @ 100 mls/hr AD PRN IV Last administered on 02/21/25at 11:17; Start 02/14/25 at 10:00; Stop 03/16/25 at 09:59 Potassium Phosphate 250 ml @ 42 mls/hr AD PRN IV; Start 02/14/25 at 10:00; Stop 03/16/25 at 09:59 Albumin Human 250 ml @ 0 mls/hr AD PRN IV Last administered on 02/14/25at 14:42; Start 02/14/25 at 10:00; Stop 02/14/25 at 14:42; Status DC Acetaminophen 650 mg Q4H PRN PO; Start 02/14/25 at 10:00; Stop 03/16/25 at 09:59 Insulin Human Regular 100 unit/ Sodium Chloride 100 ml @ 0 mls/hr AD IV Last administered on 02/15/25at 06:30; Start 02/14/25 at 10:00; Stop 02/16/25 at 09:59; Status DC Cefazolin Sodium 2 gm Q8H IVPB Last administered on 02/15/25at 06:25; Start 02/14/25 at 15:00; Stop 02/15/25 at 07:01; Status DC Tramadol HCl 25 mg Q6H PRN PO; Start 02/14/25 at 10:00; Stop 02/19/25 at 09:59; Status DC Tramadol HCl 50 mg Q6H PRN PO; Start 02/14/25 at 10:00; Stop 02/19/25 at 09:59; Status DC Famotidine 20 mg BID IV Last administered on 02/15/25at 20:15; Start 02/14/25 at 21:00; Stop 02/16/25 at 07:58; Status DC Sodium Bicarbonate 50 meq AD PRN IV Last administered on 02/16/25at 15:25; Start 02/14/25 at 10:00; Stop 02/17/25 at 09:59; Status DC Dextrose 50 ml AD PRN IV; Start 02/14/25 at 10:00; Stop 03/16/25 at 09:59 Glucagon 1 mg AD PRN IM; Start 02/14/25 at 10:00; Stop 03/16/25 at 09:59 Dobutamine HCl 250 mg STK-MED ONCE .ROUTE; Start 02/14/25 at 10:28; Stop 02/14/25 at 10:28; Status DC Sodium Bicarbonate 50 ml @ As Directed STK-MED ONCE .ROUTE; Start 02/14/25 at 10:52; Stop 02/14/25 at 10:52; Status DC Sodium Bicarbonate 200 ml @ As Directed STK-MED ONCE .ROUTE; Start 02/14/25 at 10:53; Stop 02/14/25 at 10:53; Status DC Vasopressin 20 units STK-MED ONCE .ROUTE; Start 02/14/25 at 11:51; Stop 02/14/25 at 11:51; Status DC Rocuronium [place] 50 mg STK-MED ONCE .ROUTE; Start 02/14/25 at 12:14; Stop 02/14/25 at 12:14; Status DC Sodium Bicarbonate 100 ml @ As Directed STK-MED ONCE .ROUTE; Start 02/14/25 at 12:16; Stop 02/14/25 at 12:16; Status DC Vasopressin 40 units/Sodium Chloride 40 ml @ 0 mls/hr PROTOCOL IV Last administered on 02/14/25at 22:11; Start 02/14/25 at 13:00; Stop 03/16/25 at 12:59 Albumin Human 250 ml @ 0 mls/hr AD IV Last administered on 02/18/25at 10:27; Start 02/14/25 at 15:30; Stop 02/18/25 at 10:40; Status DC Calcium Gluconate 2 gm/Sodium Chloride 100 ml @ 0 mls/hr ONCE ONCE IV Last administered on 02/14/25at 16:15; Start 02/14/25 at 16:30; Stop 02/14/25 at 16:31; Status DC Pharmacy Profile Note 1 each ONCE MISC; Start 02/14/25 at 18:00; Stop 02/14/25 at 18:27; Status DC Sodium Bicarbonate 25 meq/Dextrose 1,025 ml @ 0 mls/hr Q0M IV Last administered on 02/18/25at 13:03; Start 02/14/25 at 18:00; Stop 03/16/25 at 17:59 Famotidine 20 mg BID PO Last administered on 02/16/25at 20:03; Start 02/16/25 at 09:00; Stop 02/17/25 at 07:09; Status DC Insulin Human Regular INSULIN SLIDING SCAL... ACHS SQ Last administered on 02/21/25at 06:34; Start 02/16/25 at 11:30; Stop 03/18/25 at 11:29 Cefepime HCl 1 gm Q12H IVPB Last administered on 02/19/25at 22:54; Start 02/16/25 at 10:30; Stop 02/20/25 at 08:16; Status DC Furosemide 100 mg/ Sodium Chloride 100 ml @ 0 mls/hr PROTOCOL IV Last administered on 02/19/25at 11:35; Start 02/16/25 at 10:30; Stop 02/20/25 at 09:01; Status DC Vancomycin HCl 500 ml @ 250 mls/hr ONCE ONCE IV Last administered on 02/16/25at 11:39; Start 02/16/25 at 12:00; Stop 02/16/25 at 13:59; Status DC Sodium Chloride 4 ml STK-MED ONCE IH Last administered on 02/16/25at 10:53; Start 02/16/25 at 10:44; Stop 02/16/25 at 10:44; Status DC Sodium Chloride 4 ml STK-MED ONCE IH Last administered on 02/16/25at 14:33; Start 02/16/25 at 14:26; Stop 02/16/25 at 14:26; Status DC Sodium Chloride 4 ml STK-MED ONCE IH Last administered on 02/16/25at 19:16; Start 02/16/25 at 18:32; Stop 02/16/25 at 18:32; Status DC Famotidine 20 mg DAILY PO Last administered on 02/21/25at 15:15; Start 02/17/25 at 09:00; Stop 03/18/25 at 08:59 Latanoprost 1 DROP FOR EACH EYE HS OP Last administered on 02/19/25at 22:55; Start 02/17/25 at 21:00; Stop 03/19/25 at 20:59 Home Med (Brimonidine-Timolol 0.2%/0.5% EYE DROPS) DAILY OP Last administered on 02/21/25at 08:45; Start 02/18/25 at 09:00; Stop 03/20/25 at 08:59 Albumin Human 250 ml @ 0 mls/hr AD IV; Start 02/18/25 at 10:30; Stop 02/20/25 at 09:03; Status DC Vancomycin HCl 1 each AD IV; Start 02/18/25 at 11:00; Stop 03/04/25 at 10:59 Vancomycin HCl 250 ml @ 125 mls/hr Q12H IV Last administered on 02/19/25at 11:20; Start 02/18/25 at 11:30; Stop 02/21/25 at 05:33; Status DC Potassium Chloride 20 meq BID PO Last administered on 02/19/25at 20:32; Start 02/19/25 at 10:30; Stop 03/21/25 at 10:29 Dexmedetomidine/ Sodium Chloride 400 mcg STK-MED ONCE IV Last administered on 02/20/25at 07:08; Start 02/20/25 at 07:00; Stop 02/20/25 at 07:00; Status DC Dexmedetomidine/ Sodium Chloride 400 mcg PROTOCOL IV Last administered on 02/21/25at 12:42; Start 02/20/25 at 07:30; Stop 03/22/25 at 07:29 Carvedilol 3.125 mg BID PO; Start 02/20/25 at 21:00; Stop 03/22/25 at 20:59 Spironolactone 25 mg DAILY PO Last administered on 02/20/25at 09:15; Start 02/20/25 at 09:00; Stop 03/22/25 at 08:59 Empaglifozin 10 mg DAILY PO Last administered on 02/20/25at 09:14; Start 02/20/25 at 09:00; Stop 03/22/25 at 08:59 Albumin Human 50 ml @ 0 mls/hr Q12H9 IV Last administered on 02/21/25at 11:16; Start 02/20/25 at 09:00; Stop 02/25/25 at 08:59 Furosemide 20 mg Q12H IV Last administered on 02/21/25at 15:18; Start 02/20/25 at 09:00; Stop 03/22/25 at 08:59 Pharmacy Profile Note 1 each ONCE MISC; Start 02/20/25 at 11:30; Stop 02/20/25 at 11:19; Status DC Piperacillin Sod/ Tazobactam Sod 50 ml @ 12.5 mls/hr Q8H IVPB Last administered on 02/21/25at 11:18; Start 02/20/25 at 11:30; Stop 03/02/25 at 11:29 Vancomycin HCl 250 ml @ 125 mls/hr Q24H IV Last administered on 02/21/25at 06:09; Start 02/21/25 at 06:00; Stop 02/28/25 at 11:29 Insulin Glargine 10 units DAILY SQ; Start 02/21/25 at 09:00; Stop 03/23/25 at 08:59 Calcium Gluconate 1 gm STK-MED ONCE .ROUTE; Start 02/21/25 at 08:34; Stop 02/21/25 at 08:34; Status DC Etomidate 20 mg STK-MED ONCE .ROUTE; Start 02/21/25 at 12:27; Stop 02/21/25 at 12:28; Status DC Fentanyl Citrate 100 mcg STK-MED ONCE .ROUTE; Start 02/21/25 at 12:30; Stop 02/21/25 at 12:30; Status DC Rocuronium [place] 50 mg STK-MED ONCE .ROUTE; Start 02/21/25 at 12:30; Stop 02/21/25 at 12:30; Status DC Lidocaine HCl 20 ml STK-MED ONCE .ROUTE; Start 02/21/25 at 12:31; Stop 02/21/25 at 12:31; Status DC Cefazolin Sodium 1 gm STK-MED ONCE .ROUTE; Start 02/21/25 at 12:31; Stop 02/21/25 at 12:32; Status DC Bupivacaine HCl 2.5 mg STK-MED ONCE IJ; Start 02/21/25 at 12:32; Stop 02/21/25 at 12:32; Status DC Propofol 200 mg STK-MED ONCE IV; Start 02/21/25 at 12:35; Stop 02/21/25 at 12:35; Status DC Lidocaine HCl 100 mg STK-MED ONCE .ROUTE; Start 02/21/25 at 12:46; Stop 02/21/25 at 12:46; Status DC Cefazolin Sodium 1 gm STK-MED ONCE .ROUTE; Start 02/21/25 at 12:51; Stop 02/21/25 at 12:51; Status DC Rocuronium [place] 50 mg STK-MED ONCE .ROUTE; Start 02/21/25 at 13:03; Stop 02/21/25 at 13:03; Status DC Cefazolin Sodium 2 gm STK-MED ONCE IVPB Last administered on 02/21/25at 12:53; Start 02/21/25 at 12:53; Stop 02/21/25 at 14:14; Status DC Lidocaine HCl 20 ml STK-MED ONCE INJ Last administered on 02/21/25at 12:18; Start 02/21/25 at 12:18; Stop 02/21/25 at 14:14; Status DC Bupivacaine HCl 75 mg STK-MED ONCE IJ Last administered on 02/21/25at 12:18; Start 02/21/25 at 12:18; Stop 02/21/25 at 14:14; Status DC KIRSTIE KEITH MD Feb 21, 2025 16:14
--- NOTE | 2025-02-21 18:51 | HMCIMG ---
STUDY: X-RAY OF THE CHEST, 1 VIEW HISTORY: Evaluation in a patient with a history of an Impella/ventricular assist device. TECHNIQUE: A single portable AP view of the chest is submitted for interpretation. COMPARISON: Chest radiograph from 02/20/2025 at 10:52 EST. FINDINGS: Pulmonary heck: A possible small, stable left-sided pleural effusion persists. There is ill-defined hazy ground-glass???type opacity over the left hemithorax, which may in part be related to patient rotation and portable technique. No focal lobar consolidation is identified. No pneumothorax is seen. Cardiac silhouette: Cardiac silhouette appears enlarged, likely accentuated by AP projection and portable technique. Mediastinum and renzo: Central airways and mediastinal contours are unremarkable without definite widening or discrete hilar mass. Osseous structures: Post-CABG sternal sutures are present. No acute rib or thoracic spine fracture or destructive osseous lesion is identified. Miscellaneous: A right-sided central venous catheter is present with its tip at or near the cavoatrial junction. Ventricular assist device hardware is visualized and appears unchanged in position and configuration compared with the prior study. health nurse leads overlie the thorax. No subdiaphragmatic free air is seen. IMPRESSION: * Small, stable left pleural effusion with persistent hazy opacity over the left hemithorax, which may be accentuated by patient rotation and portable technique. No new focal consolidation or pneumothorax. Compared with the chest radiograph from 02/20/2025 at 10:52 EST, no significant interval change is identified. * Cardiomegaly in a patient with prior CABG, at least partly related to AP projection. * Right central venous catheter and ventricular assist device hardware in satisfactory and unchanged radiographic position. /[place]
--- NOTE | 2025-02-21 20:13 | PN ---
Endocrinology progress note DOS: 02/21/25 subjective: glucose are improving and s/p CABG procedure Home diabetic regimen: metformin 500 mg bid, Hba1c 13.9% PAST MEDICAL HISTORY: [ Diabetes, hyperlipidemia, GA/coronary artery disease ] PAST SURGICAL HISTORY: [ Cardiac stent, cholecystectomy and left inguinal hernia repair ] PAST SOCIAL HISTORY: [ Patient lives with . Patient admits he drinks two beer yesterday. Patient reports he occasional drinks alcohol denies cigarette and recreational drug use. ] FAMILY HISTORY: [ Diabetes, cardiovascular disease, asthma and cancer ] Coded Allergies: No Known Drug Allergies (Unverified Allergy, Unknown, 08/31/15) ASSESSMENT: Hyperglycemia secondary to uncontrolled diabetes POA Home diabetic regimen: metformin 500 mg bid, Hba1c 13.9% glucose is stable now. NSTEMI POA s/p CABG triple vessel disease s/p CABG Hyperlipidemia POA Obesity POA GA/Coronary artery disease with cardiac stent POA PLAN: OFF insulin drip start lantus 12 units daily. off regular insulin. Continue low dose sliding scale insulin. Monitor glucose q x 6 hourly. Keep glucose less than 180 mg/dl. Patient will need insulin at discharge Vitals/Labs Vital Signs Date Time Temp Pulse Resp B/P (MAP) Pulse Ox O2 Delivery O2 Flow Rate FiO2 02/21/25 18:15 80 70 128/52 (77) 100 28 02/21/25 16:14 97.9 02/21/25 16:00 Nasal Cannula* 3 Laboratory Tests 02/21/25 04:21 02/21/25 15:50 Medications Current Medications Sodium Chloride 1,000 ml @ 0 mls/hr ONCE ONCE IV; Start 02/10/25 at 01:00; Stop 02/10/25 at 00:46; Status DC Sodium Chloride 500 ml @ 0 mls/hr ONCE ONCE IV Last administered on 02/10/25at 00:53; Start 02/10/25 at 01:00; Stop 02/10/25 at 01:01; Status DC Insulin Human Regular 5 unit ONCE ONCE IV Last administered on 02/10/25at 01:30; Start 02/10/25 at 01:30; Stop 02/10/25 at 01:31; Status DC Aspirin 325 mg ONCE ONCE PO Last administered on 02/10/25at 02:32; Start 02/10/25 at 02:30; Stop 02/10/25 at 02:31; Status DC Heparin Sodium/ Dextrose 250 ml @ 0 mls/hr PROTOCOL IV Last administered on 02/10/25at 03:00; Start 02/10/25 at 03:00; Stop 02/10/25 at 17:22; Status DC Heparin Sodium (Porcine) 7,000 unit ONCE ONCE SQ Last administered on 02/10/25at 02:55; Start 02/10/25 at 03:00; Stop 02/10/25 at 03:01; Status DC Acetaminophen 650 mg Q6H PRN PO Last administered on 02/12/25at 17:13; Start 02/10/25 at 05:00; Stop 02/14/25 at 10:17; Status DC Acetaminophen 650 mg Q4H PRN PO; Start 02/10/25 at 05:00; Stop 02/14/25 at 10:05; Status DC Ondansetron HCl 4 mg Q6H PRN IV; Start 02/10/25 at 05:00; Stop 02/14/25 at 10:17; Status DC Nitroglycerin 0.4 mg PROTOCOL PRN SL; Start 02/10/25 at 05:00; Stop 02/14/25 at 09:59; Status DC Famotidine 20 mg DAILY PO Last administered on 02/13/25at 10:53; Start 02/10/25 at 09:00; Stop 02/14/25 at 09:59; Status DC Sodium Chloride 1,000 ml @ 100 mls/hr Q10H IV Last administered on 02/10/25at 14:20; Start 02/10/25 at 05:00; Stop 02/10/25 at 17:22; Status DC Insulin Human Regular INSULIN SLIDING SCAL... Q4H SQ Last administered on 02/10/25at 09:15; Start 02/10/25 at 05:00; Stop 02/10/25 at 11:10; Status DC Dextrose 50 ml AD PRN IV; Start 02/10/25 at 05:00; Stop 02/14/25 at 10:17; Status DC Glucagon 1 mg AD PRN IM; Start 02/10/25 at 05:00; Stop 02/14/25 at 10:17; Status DC Magnesium Sulfate 50 ml @ 0 mls/hr PROTOCOL PRN IV Last administered on 02/12/25at 07:13; Start 02/10/25 at 05:00; Stop 02/14/25 at 10:17; Status DC Potassium Chloride 100 ml @ 100 mls/hr AD PRN IV Last administered on 02/15/25at 05:43; Start 02/10/25 at 05:00; Stop 02/15/25 at 06:27; Status DC Potassium Chloride 20 meq AD PRN PO Last administered on 02/17/25at 05:52; Start 02/10/25 at 05:00; Stop 03/12/25 at 04:59 Potassium Chloride 20 meq AD PRN PO Last administered on 02/18/25at 20:18; Start 02/10/25 at 05:00; Stop 03/12/25 at 04:59 Aspirin 81 mg DAILY PO Last administered on 02/21/25at 15:14; Start 02/10/25 at 09:00; Stop 03/12/25 at 08:59 Insulin Human Regular INSULIN SLIDING SCAL... Q6H6 SQ Last administered on 02/11/25at 17:29; Start 02/10/25 at 12:00; Stop 02/14/25 at 09:59; Status DC Clopidogrel Bisulfate 600 mg ONCE PO Last administered on 02/10/25at 14:19; Start 02/10/25 at 14:00; Stop 02/10/25 at 17:22; Status DC Aspirin 325 mg ONCE PO Last administered on 02/10/25at 14:32; Start 02/10/25 at 14:30; Stop 02/10/25 at 17:22; Status DC Sacubitril/ Valsartan 0.5 each BID PO Last administered on 02/13/25at 21:11; Start 02/10/25 at 21:00; Stop 02/14/25 at 09:59; Status DC Empaglifozin 10 mg DAILY PO Last administered on 02/13/25at 10:52; Start 02/10/25 at 14:30; Stop 02/14/25 at 09:59; Status DC Spironolactone 25 mg DAILY PO Last administered on 02/13/25at 10:52; Start 02/10/25 at 14:30; Stop 02/14/25 at 09:59; Status DC Furosemide 20 mg ONCE IV Last administered on 02/10/25at 17:00; Start 02/10/25 at 17:00; Stop 02/10/25 at 21:00; Status DC Furosemide 20 mg ONCE IV; Start 02/11/25 at 09:00; Stop 02/11/25 at 07:43; Status DC Lidocaine HCl 20 ml STK-MED ONCE .ROUTE; Start 02/10/25 at 15:22; Stop 02/10/25 at 15:23; Status DC Iohexol 35,000 mg STK-MED ONCE IV; Start 02/10/25 at 15:22; Stop 02/10/25 at 15:23; Status DC Iohexol 50 ml STK-MED ONCE IV; Start 02/10/25 at 15:22; Stop 02/10/25 at 15:23; Status DC Heparin Sodium (Porcine) 10,000 unit STK-MED ONCE .ROUTE; Start 02/10/25 at 15:23; Stop 02/10/25 at 15:23; Status DC Heparin Sodium/ Sodium Chloride 1,000 ml @ As Directed STK-MED ONCE IV; Start 02/10/25 at 15:23; Stop 02/10/25 at 15:23; Status DC Nitroglycerin 50 mg STK-MED ONCE .ROUTE; Start 02/10/25 at 15:23; Stop 02/10/25 at 15:23; Status DC Heparin Sodium/ Sodium Chloride 500 ml @ As Directed STK-MED ONCE IV; Start 02/10/25 at 15:35; Stop 02/10/25 at 15:35; Status DC Fentanyl Citrate 100 mcg STK-MED ONCE .ROUTE; Start 02/10/25 at 15:39; Stop 02/10/25 at 15:40; Status DC Midazolam HCl 2 mg STK-MED ONCE .ROUTE; Start 02/10/25 at 15:40; Stop 02/10/25 at 15:40; Status DC Bivalirudin 250 mg STK-MED ONCE IV; Start 02/10/25 at 16:15; Stop 02/10/25 at 16:15; Status DC Heparin Sodium (Porcine) 7,000 unit ONCE ONCE IV Last administered on 02/11/25at 05:46; Start 02/11/25 at 05:30; Stop 02/11/25 at 05:31; Status DC Heparin Sodium/ Dextrose 250 ml @ 0 mls/hr Q6H IV Last administered on 02/13/25at 13:01; Start 02/11/25 at 06:30; Stop 02/14/25 at 09:59; Status DC Clopidogrel Bisulfate 75 mg DAILY PO; Start 02/11/25 at 09:00; Stop 02/11/25 at 07:28; Status DC Insulin Glargine 15 units DAILY08 SQ Last administered on 02/12/25at 08:54; Start 02/11/25 at 08:00; Stop 02/13/25 at 05:24; Status DC Furosemide 20 mg DAILY PO Last administered on 02/13/25at 10:52; Start 02/11/25 at 09:00; Stop 02/14/25 at 09:59; Status DC Insulin Human Regular 3 unit TIDAC SQ Last administered on 02/12/25at 16:31; Start 02/12/25 at 07:30; Stop 02/14/25 at 09:59; Status DC Metoprolol Tartrate 12.5 mg BID PO Last administered on 02/14/25at 06:44; Start 02/12/25 at 09:00; Stop 02/14/25 at 09:59; Status DC Potassium Chloride 40 meq BID ONCE PO; Start 02/12/25 at 21:00; Stop 02/12/25 at 21:01; Status DC Magnesium Chloride 64 mg Q8H6 ONCE PO; Start 02/12/25 at 14:00; Stop 02/12/25 at 14:01; Status DC Heparin Sodium (Porcine) *calculation based on ACTUAL B... AD PRN IV Last administered on 02/12/25at 20:16; Start 02/12/25 at 21:00; Stop 02/14/25 at 09:59; Status DC Insulin Glargine 12 units DAILY08 SQ Last administered on 02/13/25at 10:51; Start 02/13/25 at 08:00; Stop 02/14/25 at 09:59; Status DC Cefazolin Sodium 2 gm ONCALL IVP Last administered on 02/14/25at 08:50; Start 02/13/25 at 20:00; Stop 02/14/25 at 18:51; Status DC Epinephrine HCl 10 mg/Sodium Chloride 250 ml @ 0 mls/hr AD PRN IV Last administered on 02/20/25at 17:32; Start 02/14/25 at 06:30; Stop 03/16/25 at 06:29 Norepinephrine Bitartrate 250 ml @ 0 mls/hr AD PRN IV Last administered on 02/17/25at 01:06; Start 02/14/25 at 06:30; Stop 03/16/25 at 06:29 Aminocaproic Acid 66307 mg/Sodium Chloride 480 ml @ 0 mls/hr AD PRN IV; Start 02/14/25 at 06:30; Stop 03/16/25 at 06:29 Epinephrine HCl 10 mg/Sodium Chloride 250 ml @ 0 mls/hr AD PRN IV; Start 02/14/25 at 07:00; Stop 02/14/25 at 06:51; Status DC Norepinephrine Bitartrate 250 ml @ 0 mls/hr AD PRN IV; Start 02/14/25 at 07:00; Stop 02/14/25 at 06:51; Status DC Aminocaproic Acid 80557 mg/Sodium Chloride 480 ml @ 0 mls/hr AD PRN IV; Start 02/14/25 at 07:00; Stop 02/14/25 at 06:51; Status DC Cefazolin Sodium 2 gm STK-MED ONCE .ROUTE; Start 02/14/25 at 06:53; Stop 02/14/25 at 06:53; Status DC Nitroglycerin/ Dextrose 1 ml @ As Directed STK-MED ONCE .ROUTE; Start 02/14/25 at 07:00; Stop 02/14/25 at 07:00; Status DC Cefazolin Sodium 1 gm STK-MED ONCE .ROUTE Last administered on 02/14/25at 10:09; Start 02/14/25 at 07:37; Stop 02/14/25 at 07:38; Status DC Heparin Sodium/ Sodium Chloride 500 ml @ As Directed STK-MED ONCE IV; Start 02/14/25 at 07:38; Stop 02/14/25 at 07:38; Status DC Papaverine HCl 60 mg STK-MED ONCE .ROUTE Last administered on 02/14/25at 10:10; Start 02/14/25 at 07:38; Stop 02/14/25 at 07:38; Status DC Midazolam HCl 2 mg STK-MED ONCE .ROUTE; Start 02/14/25 at 08:14; Stop 02/14/25 at 08:14; Status DC Ketamine HCl 500 mg STK-MED ONCE IJ; Start 02/14/25 at 08:16; Stop 02/14/25 at 08:16; Status DC Protamine Sulfate 250 mg STK-MED ONCE IV; Start 02/14/25 at 08:17; Stop 02/14/25 at 08:17; Status DC Lidocaine HCl 100 mg STK-MED ONCE .ROUTE; Start 02/14/25 at 08:17; Stop 02/14/25 at 08:17; Status DC Heparin Sodium (Porcine) 10,000 unit STK-MED ONCE .ROUTE; Start 02/14/25 at 08:17; Stop 02/14/25 at 08:17; Status DC Epinephrine HCl 1 mg STK-MED ONCE .ROUTE; Start 02/14/25 at 08:17; Stop 02/14/25 at 08:17; Status DC Sodium Bicarbonate 200 ml @ As Directed STK-MED ONCE .ROUTE; Start 02/14/25 at 08:17; Stop 02/14/25 at 08:17; Status DC Norepinephrine Bitartrate 4 mg STK-MED ONCE IV; Start 02/14/25 at 08:17; Stop 02/14/25 at 08:17; Status DC Propofol 200 mg STK-MED ONCE IV; Start 02/14/25 at 08:19; Stop 02/14/25 at 08:19; Status DC Fentanyl Citrate 1,000 mcg STK-MED ONCE IJ; Start 02/14/25 at 08:19; Stop 02/14/25 at 08:19; Status DC Midazolam HCl 2 mg STK-MED ONCE .ROUTE; Start 02/14/25 at 08:20; Stop 02/14/25 at 08:20; Status DC Rocuronium [place] 50 mg STK-MED ONCE .ROUTE; Start 02/14/25 at 08:20; Stop 02/14/25 at 08:20; Status DC Acetaminophen 1,000 mg Q6H6 IV Last administered on 02/15/25at 12:14; Start 02/14/25 at 14:00; Stop 02/15/25 at 13:59; Status DC Aspirin 81 mg ONCE ONCE NG Last administered on 02/14/25at 13:56; Start 02/14/25 at 14:00; Stop 02/14/25 at 14:01; Status DC Docusate Sodium 100 mg BID PO Last administered on 02/20/25at 20:05; Start 02/14/25 at 21:00; Stop 03/16/25 at 20:59 Lactulose 20 gm BID PRN PO; Start 02/14/25 at 10:00; Stop 03/16/25 at 09:59 Furosemide 20 mg Q12H PO Last administered on 02/16/25at 08:19; Start 02/16/25 at 09:00; Stop 02/16/25 at 10:21; Status DC Furosemide 20 mg Q12H IV Last administered on 02/15/25at 20:16; Start 02/15/25 at 09:00; Stop 02/16/25 at 08:59; Status DC Atorvastatin Calcium 40 mg HS PO Last administered on 02/20/25at 20:05; Start 02/14/25 at 21:00; Stop 03/16/25 at 20:59 Enoxaparin Sodium 30 mg DAILY SQ Last administered on 02/21/25at 15:15; Start 02/17/25 at 09:00; Stop 03/19/25 at 08:59 Metoprolol Tartrate 12.5 mg BID PO; Start 02/16/25 at 09:00; Stop 02/20/25 at 09:01; Status DC Magnesium Hydroxide 30 ml DAILY PRN PO; Start 02/14/25 at 10:00; Stop 03/16/25 at 09:59 Dexmedetomidine/ Sodium Chloride 400 mcg PROTOCOL IV; Start 02/14/25 at 10:00; Stop 02/15/25 at 09:59; Status DC Acetaminophen 650 mg Q6H PRN PO; Start 02/14/25 at 10:00; Stop 03/16/25 at 09:59 Heparin Sodium (Porcine) 10,000 unit STK-MED ONCE .ROUTE; Start 02/14/25 at 10:00; Stop 02/14/25 at 10:00; Status DC Sodium Chloride 1,000 ml @ 10 mls/hr ONCE IV; Start 02/14/25 at 10:00; Stop 02/15/25 at 09:59; Status DC Sodium Chloride 10 ml Q8H PRN IVP; Start 02/14/25 at 10:00; Stop 03/16/25 at 09:59 Morphine Sulfate 0.5 mg Q2H PRN IV; Start 02/14/25 at 10:00; Stop 02/15/25 at 09:59; Status DC Morphine Sulfate 1 mg Q2H PRN IV Last administered on 02/14/25at 14:23; Start 02/14/25 at 10:30; Stop 02/19/25 at 13:29; Status DC Acetaminophen 650 mg Q4H PRN RC; Start 02/14/25 at 10:00; Stop 03/16/25 at 09:59 Ondansetron HCl 4 mg Q6H PRN IV; Start 02/14/25 at 10:00; Stop 03/16/25 at 09:59 Sodium Chloride 500 ml @ 0 mls/hr AD IV; Start 02/14/25 at 10:00; Stop 03/16/25 at 09:59 Nitroglycerin/ Dextrose 0 ml @ 0 mls/hr AD IV; Start 02/14/25 at 10:00; Stop 02/17/25 at 09:59; Status DC Propofol 100 ml @ 0 mls/hr AD PRN IV; Start 02/14/25 at 10:00; Stop 02/18/25 at 09:59; Status DC Norepinephrine Bitartrate 8 mg/ Dextrose 250 ml @ 0 mls/hr AD PRN IV; Start 02/14/25 at 10:00; Stop 02/14/25 at 10:14; Status DC Epinephrine HCl 10 mg/Sodium Chloride 250 ml @ 0 mls/hr AD PRN IV; Start 02/14/25 at 10:00; Stop 02/14/25 at 10:14; Status DC Aminocaproic Acid 10651 mg/Sodium Chloride 310 ml @ 25 mls/hr AD IV; Start 02/14/25 at 10:00; Stop 02/14/25 at 10:19; Status DC Calcium Gluconate 1 gm/Sodium Chloride 60 ml @ 200 mls/hr AD PRN IV Last administered on 02/21/25at 08:36; Start 02/14/25 at 10:00; Stop 03/16/25 at 09:59 Magnesium Sulfate 50 ml @ 12.5 mls/hr AD PRN IV Last administered on 02/21/25at 16:43; Start 02/14/25 at 10:00; Stop 03/16/25 at 09:59 Potassium Chloride 100 ml @ 100 mls/hr AD PRN IV Last administered on 02/21/25at 16:43; Start 02/14/25 at 10:00; Stop 03/16/25 at 09:59 Potassium Phosphate 250 ml @ 42 mls/hr AD PRN IV; Start 02/14/25 at 10:00; Stop 03/16/25 at 09:59 Albumin Human 250 ml @ 0 mls/hr AD PRN IV Last administered on 02/14/25at 14:42; Start 02/14/25 at 10:00; Stop 02/14/25 at 14:42; Status DC Acetaminophen 650 mg Q4H PRN PO; Start 02/14/25 at 10:00; Stop 03/16/25 at 09:59 Insulin Human Regular 100 unit/ Sodium Chloride 100 ml @ 0 mls/hr AD IV Last administered on 02/15/25at 06:30; Start 02/14/25 at 10:00; Stop 02/16/25 at 09:59; Status DC Cefazolin Sodium 2 gm Q8H IVPB Last administered on 02/15/25at 06:25; Start 02/14/25 at 15:00; Stop 02/15/25 at 07:01; Status DC Tramadol HCl 25 mg Q6H PRN PO; Start 02/14/25 at 10:00; Stop 02/19/25 at 09:59; Status DC Tramadol HCl 50 mg Q6H PRN PO; Start 02/14/25 at 10:00; Stop 02/19/25 at 09:59; Status DC Famotidine 20 mg BID IV Last administered on 02/15/25at 20:15; Start 02/14/25 at 21:00; Stop 02/16/25 at 07:58; Status DC Sodium Bicarbonate 50 meq AD PRN IV Last administered on 02/16/25at 15:25; Start 02/14/25 at 10:00; Stop 02/17/25 at 09:59; Status DC Dextrose 50 ml AD PRN IV; Start 02/14/25 at 10:00; Stop 03/16/25 at 09:59 Glucagon 1 mg AD PRN IM; Start 02/14/25 at 10:00; Stop 03/16/25 at 09:59 Dobutamine HCl 250 mg STK-MED ONCE .ROUTE; Start 02/14/25 at 10:28; Stop 02/14/25 at 10:28; Status DC Sodium Bicarbonate 50 ml @ As Directed STK-MED ONCE .ROUTE; Start 02/14/25 at 10:52; Stop 02/14/25 at 10:52; Status DC Sodium Bicarbonate 200 ml @ As Directed STK-MED ONCE .ROUTE; Start 02/14/25 at 10:53; Stop 02/14/25 at 10:53; Status DC Vasopressin 20 units STK-MED ONCE .ROUTE; Start 02/14/25 at 11:51; Stop 02/14/25 at 11:51; Status DC Rocuronium [place] 50 mg STK-MED ONCE .ROUTE; Start 02/14/25 at 12:14; Stop 02/14/25 at 12:14; Status DC Sodium Bicarbonate 100 ml @ As Directed STK-MED ONCE .ROUTE; Start 02/14/25 at 12:16; Stop 02/14/25 at 12:16; Status DC Vasopressin 40 units/Sodium Chloride 40 ml @ 0 mls/hr PROTOCOL IV Last administered on 02/14/25at 22:11; Start 02/14/25 at 13:00; Stop 03/16/25 at 12:59 Albumin Human 250 ml @ 0 mls/hr AD IV Last administered on 02/18/25at 10:27; Start 02/14/25 at 15:30; Stop 02/18/25 at 10:40; Status DC Calcium Gluconate 2 gm/Sodium Chloride 100 ml @ 0 mls/hr ONCE ONCE IV Last administered on 02/14/25at 16:15; Start 02/14/25 at 16:30; Stop 02/14/25 at 16:31; Status DC Pharmacy Profile Note 1 each ONCE MISC; Start 02/14/25 at 18:00; Stop 02/14/25 at 18:27; Status DC Sodium Bicarbonate 25 meq/Dextrose 1,025 ml @ 0 mls/hr Q0M IV Last administered on 02/18/25at 13:03; Start 02/14/25 at 18:00; Stop 03/16/25 at 17:59 Famotidine 20 mg BID PO Last administered on 02/16/25at 20:03; Start 02/16/25 at 09:00; Stop 02/17/25 at 07:09; Status DC Insulin Human Regular INSULIN SLIDING SCAL... ACHS SQ Last administered on 02/21/25at 06:34; Start 02/16/25 at 11:30; Stop 03/18/25 at 11:29 Cefepime HCl 1 gm Q12H IVPB Last administered on 02/19/25at 22:54; Start 02/16/25 at 10:30; Stop 02/20/25 at 08:16; Status DC Furosemide 100 mg/ Sodium Chloride 100 ml @ 0 mls/hr PROTOCOL IV Last administered on 02/19/25at 11:35; Start 02/16/25 at 10:30; Stop 02/20/25 at 09:01; Status DC Vancomycin HCl 500 ml @ 250 mls/hr ONCE ONCE IV Last administered on 02/16/25at 11:39; Start 02/16/25 at 12:00; Stop 02/16/25 at 13:59; Status DC Sodium Chloride 4 ml STK-MED ONCE IH Last administered on 02/16/25at 10:53; Start 02/16/25 at 10:44; Stop 02/16/25 at 10:44; Status DC Sodium Chloride 4 ml STK-MED ONCE IH Last administered on 02/16/25at 14:33; Start 02/16/25 at 14:26; Stop 02/16/25 at 14:26; Status DC Sodium Chloride 4 ml STK-MED ONCE IH Last administered on 02/16/25at 19:16; Start 02/16/25 at 18:32; Stop 02/16/25 at 18:32; Status DC Famotidine 20 mg DAILY PO Last administered on 02/21/25at 15:15; Start 02/17/25 at 09:00; Stop 03/18/25 at 08:59 Latanoprost 1 DROP FOR EACH EYE HS OP Last administered on 02/19/25at 22:55; Start 02/17/25 at 21:00; Stop 03/19/25 at 20:59 Home Med (Brimonidine-Timolol 0.2%/0.5% EYE DROPS) DAILY OP Last administered on 02/21/25at 08:45; Start 02/18/25 at 09:00; Stop 03/20/25 at 08:59 Albumin Human 250 ml @ 0 mls/hr AD IV; Start 02/18/25 at 10:30; Stop 02/20/25 at 09:03; Status DC Vancomycin HCl 1 each AD IV; Start 02/18/25 at 11:00; Stop 03/04/25 at 10:59 Vancomycin HCl 250 ml @ 125 mls/hr Q12H IV Last administered on 02/19/25at 11:20; Start 02/18/25 at 11:30; Stop 02/21/25 at 05:33; Status DC Potassium Chloride 20 meq BID PO Last administered on 02/19/25at 20:32; Start 02/19/25 at 10:30; Stop 03/21/25 at 10:29 Dexmedetomidine/ Sodium Chloride 400 mcg STK-MED ONCE IV Last administered on 02/20/25at 07:08; Start 02/20/25 at 07:00; Stop 02/20/25 at 07:00; Status DC Dexmedetomidine/ Sodium Chloride 400 mcg PROTOCOL IV Last administered on 02/21/25at 12:42; Start 02/20/25 at 07:30; Stop 03/22/25 at 07:29 Carvedilol 3.125 mg BID PO; Start 02/20/25 at 21:00; Stop 03/22/25 at 20:59 Spironolactone 25 mg DAILY PO Last administered on 02/20/25at 09:15; Start 02/20/25 at 09:00; Stop 03/22/25 at 08:59 Empaglifozin 10 mg DAILY PO Last administered on 02/20/25at 09:14; Start 02/20/25 at 09:00; Stop 03/22/25 at 08:59 Albumin Human 50 ml @ 0 mls/hr Q12H9 IV Last administered on 02/21/25at 11:16; Start 02/20/25 at 09:00; Stop 02/25/25 at 08:59 Furosemide 20 mg Q12H IV Last administered on 02/21/25at 15:18; Start 02/20/25 at 09:00; Stop 03/22/25 at 08:59 Pharmacy Profile Note 1 each ONCE MISC; Start 02/20/25 at 11:30; Stop 02/20/25 at 11:19; Status DC Piperacillin Sod/ Tazobactam Sod 50 ml @ 12.5 mls/hr Q8H IVPB Last administered on 02/21/25at 11:18; Start 02/20/25 at 11:30; Stop 03/02/25 at 11:29 Vancomycin HCl 250 ml @ 125 mls/hr Q24H IV Last administered on 02/21/25at 06:09; Start 02/21/25 at 06:00; Stop 02/28/25 at 11:29 Insulin Glargine 10 units DAILY SQ; Start 02/21/25 at 09:00; Stop 03/23/25 at 08:59 Calcium Gluconate 1 gm STK-MED ONCE .ROUTE; Start 02/21/25 at 08:34; Stop 02/21/25 at 08:34; Status DC Etomidate 20 mg STK-MED ONCE .ROUTE; Start 02/21/25 at 12:27; Stop 02/21/25 at 12:28; Status DC Fentanyl Citrate 100 mcg STK-MED ONCE .ROUTE; Start 02/21/25 at 12:30; Stop 02/21/25 at 12:30; Status DC Rocuronium [place] 50 mg STK-MED ONCE .ROUTE; Start 02/21/25 at 12:30; Stop 02/21/25 at 12:30; Status DC Lidocaine HCl 20 ml STK-MED ONCE .ROUTE; Start 02/21/25 at 12:31; Stop 02/21/25 at 12:31; Status DC Cefazolin Sodium 1 gm STK-MED ONCE .ROUTE; Start 02/21/25 at 12:31; Stop 02/21/25 at 12:32; Status DC Bupivacaine HCl 2.5 mg STK-MED ONCE IJ; Start 02/21/25 at 12:32; Stop 02/21/25 at 12:32; Status DC Propofol 200 mg STK-MED ONCE IV; Start 02/21/25 at 12:35; Stop 02/21/25 at 12:35; Status DC Lidocaine HCl 100 mg STK-MED ONCE .ROUTE; Start 02/21/25 at 12:46; Stop 02/21/25 at 12:46; Status DC Cefazolin Sodium 1 gm STK-MED ONCE .ROUTE; Start 02/21/25 at 12:51; Stop 02/21/25 at 12:51; Status DC Rocuronium [place] 50 mg STK-MED ONCE .ROUTE; Start 02/21/25 at 13:03; Stop 02/21/25 at 13:03; Status DC Cefazolin Sodium 2 gm STK-MED ONCE IVPB Last administered on 02/21/25at 12:53; Start 02/21/25 at 12:53; Stop 02/21/25 at 14:14; Status DC Lidocaine HCl 20 ml STK-MED ONCE INJ Last administered on 02/21/25at 12:18; Start 02/21/25 at 12:18; Stop 02/21/25 at 14:14; Status DC Bupivacaine HCl 75 mg STK-MED ONCE IJ Last administered on 02/21/25at 12:18; Start 02/21/25 at 12:18; Stop 02/21/25 at 14:14; Status DC EUGENE ZARATE MD Feb 21, 2025 20:12
--- NOTE | 2025-02-21 21:35 | PN ---
INFECTIOUS DISEASE PROGRESS NOTE Date of Service: Feb 21, 2025 SUBJECTIVE: This 74-year-old male patient who was seen at bedside in room 210. Patient is s/p CABG on 02/14/2025 and during rounding today patient was out to OR for surgical removal of Impella. The WBC is slowly improving and is 17.9 with no documented fever. We will continue on Zosyn and vancomycin. We will continue to follow patient's care. PHYSICAL EXAM EYES: Anicteric. Pupils equal and reactive. HENT: No oral thrush seen, moist Oral mucosa. NECK: Supple, no JVD or thyromegaly. LUNGS: Good air entry. diminished breath sounds. CHEST: Sternal incision. CARDIOVASCULAR: S1, S2 regular. No murmur heard. ABDOMEN: Soft, non tender, bowel sounds present. CENTRAL NERVOUS SYSTEM: Awake, alert, oriented. SKIN: No rashes, no swelling. Vein harvesting surgical incisions to bilateral lower extremities.. LYMPHATICS: No peripheral lymphadenopathy. MUSCULOSKELETAL: No joint swelling, erythema or tenderness. EXTREMITIES: No cyanosis or clubbing. 1+ edema to bilateral feet. BACK: No deformity, no pressure ulcer. GENITOURINARY: No dysuria or hematuria. De Jesus catheter. Vital Sign (Last 12 Hours) 02/21/25 02/21/25 02/21/25 02/21/25 09:38 09:52 10:08 10:22 Pulse 90 90 90 89 Resp 17 16 17 19 B/P (MAP) 122/76 (91) 123/77 (92) 121/73 (89) 123/80 (94) Pulse Ox 100 100 100 100 FiO2 36 36 36 36 02/21/25 02/21/25 02/21/25 02/21/25 10:38 10:53 11:08 11:23 Pulse 89 89 88 88 Resp 17 17 17 27 B/P (MAP) 127/76 (93) 127/77 (94) 126/71 (89) 119/64 (82) Pulse Ox 100 100 100 100 FiO2 36 36 36 36 02/21/25 02/21/25 02/21/25 02/21/25 12:00 12:00 13:19 13:23 Temp 98.4 Pulse 90 90 Resp 15 10 B/P (MAP) 137/56 (83) 115/80 (92) Pulse Ox 100 100 100 O2 Delivery Nasal Cannula* O2 Flow Rate 3 FiO2 32 36 36 02/21/25 02/21/25 02/21/25 02/21/25 13:38 13:45 13:53 14:00 Pulse 90 80 89 85 Resp 9 67 14 16 B/P (MAP) 152/66 (94) 142/63 (89) 143/55 (84) 94/40 (58) 105/51 (69) 114/67 (83) Pulse Ox 100 100 100 100 FiO2 36 36 36 36 02/21/25 02/21/25 02/21/25 02/21/25 14:08 14:15 14:22 14:30 Pulse 82 86 88 86 Resp 19 20 18 19 B/P (MAP) 132/55 (80) 144/60 (88) 160/81 (107) 157/68 (97) 96/52 (67) 102/69 (80) Pulse Ox 100 100 100 100 FiO2 36 36 36 36 02/21/25 02/21/25 02/21/25 02/21/25 14:37 14:45 14:53 15:00 Pulse 84 81 81 79 Resp 14 22 13 22 B/P (MAP) 157/83 (107) 145/66 (92) 133/62 (85) 143/63 (89) 125/74 (91) 120/80 (93) Pulse Ox 100 100 100 100 FiO2 36 36 36 36 02/21/25 02/21/25 02/21/25 02/21/25 15:08 15:15 15:30 15:38 Pulse 78 78 78 77 Resp 77 48 84 65 B/P (MAP) 137/65 (89) 136/65 (88) 119/55 (76) 119/54 (75) 101/67 (78) 101/65 (77) Pulse Ox 100 100 100 100 FiO2 36 36 28 28 02/21/25 02/21/25 02/21/25 02/21/25 15:45 16:00 16:00 16:14 Temp 97.9 Pulse 78 77 Resp 33 56 B/P (MAP) 121/55 (77) 107/49 (68) Pulse Ox 100 100 100 O2 Delivery Nasal Cannula* O2 Flow Rate 3 FiO2 28 32 28 02/21/25 02/21/25 02/21/25 02/21/25 16:15 16:30 16:38 16:45 Pulse 78 79 75 79 Resp 68 34 37 37 B/P (MAP) 116/51 (72) 121/52 (75) 114/49 (70) 126/53 (77) 108/61 (77) Pulse Ox 100 100 100 100 FiO2 28 28 28 28 02/21/25 02/21/25 02/21/25 02/21/25 17:00 17:15 17:30 17:38 Pulse 81 80 78 80 Resp 43 36 17 20 B/P (MAP) 126/53 (77) 128/52 (77) 110/49 (69) 120/49 (72) 103/63 (76) Pulse Ox 100 100 99 100 FiO2 28 28 28 28 02/21/25 02/21/25 02/21/25 02/21/25 17:45 18:00 18:15 21:00 Pulse 80 81 80 Resp 31 77 70 B/P (MAP) 127/51 (76) 132/53 (79) 128/52 (77) 130/85 Pulse Ox 100 100 100 FiO2 28 28 28 Intake & Output (last 24hrs) 0 02/20/25 02/20/25 02/21/25 15:00 23:00 07:00 Intake Total 663.8 ml 418.5 ml 818.1 ml Output Total 1250 ml 700 ml 4775 ml Balance -586.2 ml -281.5 ml -3956.9 ml LABS: Laboratory: Test 02/21/25 20:44 02/21/25 15:50 02/21/25 04:21 02/21/25 03:01 Range/Units Whole Blood Glucose 173 H 70-110 MG/DL Potassium Level 3.9 3.5-5.1 mmol/L Magnesium Level 1.80 1.80-2.40 mg/dL White Blood Count 17.9 H 4.8-10.8 K/uL Red Blood Count 3.19 L 4.50-6.20 MIL/uL Hemoglobin 9.6 L 14.0-18.0 g/dL Hematocrit 27.9 L 42-54 % Mean Corpuscular Volume 87.5 79-99 fL Mean Corpuscular Hemoglobin 30.1 27.0-33.0 pg Mean Corpuscular Hemoglobin Concent 34.4 32.0-36.0 g/dL Red Cell Distribution Width 13.9 11.0-15.5 % Platelet Count 299 # 130-400 K/uL Mean Platelet Volume 11.8 H 7.5-10.5 fL Immature Granulocyte % (Auto) 13.3 H 0-1 % Neutrophils (%) (Auto) 59.5 40.0-77.0 % Lymphocytes (%) (Auto) 14.7 L 21.0-51.0 % Monocytes (%) (Auto) 10.4 3.0-13.0 % Eosinophils (%) (Auto) 1.0 0.0-8.0 % Basophils (%) (Auto) 1.1 0.0-5.0 % Neutrophils # (Auto) 10.6 H 1.8-7.7 K/uL Lymphocytes # (Auto) 2.6 1.0-4.8 K/uL Monocytes # (Auto) 1.9 H 0.1-1.0 K/uL Eosinophils # (Auto) 0.17 0.00-0.70 K/uL Basophils # (Auto) 0.20 0.00-0.20 K/uL Absolute Immature Granulocyte (auto 2.37 H 0-1 K/uL Nucleated Red Blood Cells 1.0 H 0.0-0.19 % Prothrombin Time 11.9 H 9.6-11.6 SEC Prothromb Time International Ratio 1.14 0.85-1.15 Activated Partial Thromboplast Time 31.0 26.3-35.5 SEC Fibrinogen 550 *H 180-350 mg/dL Sodium Level 134 L 136-145 mmol/L Chloride Level 95 L 101-111 mmol/L Carbon Dioxide Level 23 21-32 mmol/L Blood Urea Nitrogen 16 7-18 mg/dL Creatinine 0.7 0.5-1.3 mg/dL Glomerular Filtration Rate Calc 95 >90 mL/min Random Glucose 209 H 70-105 mg/dL Total Calcium 8.3 L 8.5-10.1 mg/dL Total Bilirubin 1.9 #H 0.2-1.0 mg/dL Aspartate Amino Transf (AST/SGOT) 29 10-37 U/L Alanine Aminotransferase (ALT/SGPT) 26 12-78 U/L Alkaline Phosphatase 73 50-136 U/L Total Protein 6.1 6.0-8.3 g/dL Albumin 2.7 #L 3.5-5.0 g/dL Vancomycin Level Trough 2.8 #L 10.0-20.0 UG/ML Blood Gas Specimen Type Arterial Arterial Blood pH 7.477 H 7.350-7.450 Arterial Blood Partial Pressure CO2 32 L 35-48 mmHg Arterial Blood Partial Pressure O2 67.5 L 83.0-108.0 mmHg Arterial Blood HCO3 23.1 21.0-28.0 mmol/L Arterial Blood Oxygen Saturation 92.8 L 94.0-98.0 % Arterial Blood Base Excess 0.1 -2.0-3.0 mmol/L Hemoglobin (Blood Gas) 11.5 L 13.5-17.5 g/dL Sodium (Blood Gas) 136 136-145 MMOL/L Bedside Potassium (Blood Gas) 3.7 3.4-4.5 MMOL/L Bedside Chloride (Blood Gas) 99 98-107 MMOL/L Bedside Glucose (Blood Gas) 219 H 65-95 MG/DL Bedside Ionized Calcium (Blood Gas) 1.09 L 1.15-1.33 MMOL/L Bedside Lactic Acid (Blood Gas) 1.42 H 0.36-0.75 MMOL/L Blood Gas Temperature 37.0 35.5-37.0 CELSIUS Blood Gas Vent Mode RA ROOM AIR FiO2 21.0 % Blood Gas Specimen Comment MARGUERITE RN, RB Test 02/20/25 09:27 02/20/25 09:19 Range/Units Ammonia 26 11-32 umol/L Thyroid Stimulating Hormone (TSH) 4.34 #H 0.36-3.74 uIU/mL Blood Gas Flow-by 2.00 0.00-15.00 L/min ASSESSMENT: Possible hospital-acquired pneumonia. Leukocytosis. 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 Postop anemia. Left Pleural effusion. Diabetes mellitus. Congestive heart failure. PLAN: Continue on Zosyn. Continue Vancomycin per pharmacy protocol. Continue GI prophylaxis. Continue on Lasix drip. Continue oxygen support. Monitor electrolytes. Scheduled for surgical removal of Impella for today. This case was reviewed and discussed with my supervising physician Dr. Mckeon and the above assessment and plan was formulated and agreed upon. ATTESTATION BY PHYSICIAN I have seen and examined the patient. I reviewed the documentation, medical decision making, and treatment plan as noted by the mid-level provider above. I agree with the findings and plan of care. BERENICE MCKEON MD, [facility] Feb 21, 2025 21:35
[2025-02-22] VITALS (111 sets, daily range): BP systolic 100–170; BP diastolic 35–76; PULSE 70–113; RESP 16–137; TEMP 97.7–99.3; O2SAT 98–100
[2025-02-22 04:36] LABS: IMMATURE GRANULOCYTE ABSOLUTE 1.33 K/uL (0-1); NUCLEATED RED BLOOD CELLS 0.7 % (0.0-0.19); PLATELET COUNT (AUTO) 310 K/uL (130-400); RED BLOOD CELL COUNT(AUTO) 2.75 MIL/uL (4.50-6.20); RED CELL DISTRIBUTION WIDTH 14.7 % (11.0-15.5); WHITE BLOOD COUNT (AUTO) 14.0 K/uL (4.8-10.8)
[2025-02-22 04:50] LABS: CREATININE 0.9 mg/dL (0.5-1.3); GLOMERULAR FILTR. RATE CALC 89.0 mL/min (>90); GLUCOSE,RANDOM 183.0 mg/dL (70-105); SODIUM SERUM 133.0 mmol/L (136-145); UREA NITROGEN, BLOOD 14.0 mg/dL (7-18)
--- NOTE | 2025-02-22 10:13 | PN ---
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 Levophed drip was discontinued last night. Patient has had some issues with delirium and ing. Patient is receiving albumin and H&H has remained stable. Due to buddhist beliefs the patient is not receiving any blood products. REVIEW OF SYSTEMS: No fever, headache, chest pain, abdominal pain, nausea, vomiting, or diarrhea. VITAL SIGNS Vital Signs Date Time Temp Pulse Resp B/P (MAP) Pulse Ox O2 Delivery O2 Flow Rate FiO2 02/22/25 09:00 135/49 02/22/25 06:26 74 19 N/Cannula Low lpm 3.0 32 02/22/25 06:00 100 02/22/25 04:32 97.9 Laboratory Tests 02/21/25 15:50 02/22/25 04:11 LABS/MEDS Laboratory Tests Test 02/21/25 11:34 02/21/25 15:50 02/21/25 17:07 02/21/25 20:44 Whole Blood Glucose 193 MG/DL (70-110) H 174 MG/DL (70-110) H 173 MG/DL (70-110) H Potassium Level 3.9 mmol/L (3.5-5.1) Magnesium Level 1.80 mg/dL (1.80-2.40) Test 02/22/25 04:11 02/22/25 06:25 White Blood Count 14.0 K/uL (4.8-10.8) H Red Blood Count 2.75 MIL/uL (4.50-6.20) L Hemoglobin 8.2 g/dL (14.0-18.0) L Hematocrit 24.2 % (42-54) L Mean Corpuscular Volume 88.0 fL (79-99) Mean Corpuscular Hemoglobin 29.8 pg (27.0-33.0) Mean Corpuscular Hemoglobin Concent 33.9 g/dL (32.0-36.0) Red Cell Distribution Width 14.7 % (11.0-15.5) Platelet Count 310 K/uL (130-400) Mean Platelet Volume 10.8 fL (7.5-10.5) H Immature Granulocyte % (Auto) 9.5 % (0-1) H Neutrophils (%) (Auto) 57.9 % (40.0-77.0) Lymphocytes (%) (Auto) 18.8 % (21.0-51.0) L Monocytes (%) (Auto) 9.9 % (3.0-13.0) Eosinophils (%) (Auto) 3.3 % (0.0-8.0) Basophils (%) (Auto) 0.6 % (0.0-5.0) Neutrophils # (Auto) 8.1 K/uL (1.8-7.7) H Lymphocytes # (Auto) 2.6 K/uL (1.0-4.8) Monocytes # (Auto) 1.4 K/uL (0.1-1.0) H Eosinophils # (Auto) 0.46 K/uL (0.00-0.70) Basophils # (Auto) 0.08 K/uL (0.00-0.20) Absolute Immature Granulocyte (auto 1.33 K/uL (0-1) H Nucleated Red Blood Cells 0.7 % (0.0-0.19) H Sodium Level 133 mmol/L (136-145) L Potassium Level 3.8 mmol/L (3.5-5.1) Chloride Level 98 mmol/L (101-111) L Carbon Dioxide Level 26 mmol/L (21-32) Blood Urea Nitrogen 14 mg/dL (7-18) Creatinine 0.9 mg/dL (0.5-1.3) Glomerular Filtration Rate Calc 89 mL/min (>90) Random Glucose 183 mg/dL (70-105) H Total Calcium 7.8 mg/dL (8.5-10.1) L Magnesium Level 2.00 mg/dL (1.80-2.40) Whole Blood Glucose 175 MG/DL (70-110) H Current Medications Sodium Chloride 1,000 ml @ 0 mls/hr ONCE ONCE IV; Start 02/10/25 at 01:00; Stop 02/10/25 at 00:46; Status DC Sodium Chloride 500 ml @ 0 mls/hr ONCE ONCE IV Last administered on 02/10/25at 00:53; Start 02/10/25 at 01:00; Stop 02/10/25 at 01:01; Status DC Insulin Human Regular 5 unit ONCE ONCE IV Last administered on 02/10/25at 01:30; Start 02/10/25 at 01:30; Stop 02/10/25 at 01:31; Status DC Aspirin 325 mg ONCE ONCE PO Last administered on 02/10/25at 02:32; Start 02/10/25 at 02:30; Stop 02/10/25 at 02:31; Status DC Heparin Sodium/ Dextrose 250 ml @ 0 mls/hr PROTOCOL IV Last administered on 02/10/25at 03:00; Start 02/10/25 at 03:00; Stop 02/10/25 at 17:22; Status DC Heparin Sodium (Porcine) 7,000 unit ONCE ONCE SQ Last administered on 02/10/25at 02:55; Start 02/10/25 at 03:00; Stop 02/10/25 at 03:01; Status DC Acetaminophen 650 mg Q6H PRN PO Last administered on 02/12/25at 17:13; Start 02/10/25 at 05:00; Stop 02/14/25 at 10:17; Status DC Acetaminophen 650 mg Q4H PRN PO; Start 02/10/25 at 05:00; Stop 02/14/25 at 10:05; Status DC Ondansetron HCl 4 mg Q6H PRN IV; Start 02/10/25 at 05:00; Stop 02/14/25 at 10:17; Status DC Nitroglycerin 0.4 mg PROTOCOL PRN SL; Start 02/10/25 at 05:00; Stop 02/14/25 at 09:59; Status DC Famotidine 20 mg DAILY PO Last administered on 02/13/25at 10:53; Start 02/10/25 at 09:00; Stop 02/14/25 at 09:59; Status DC Sodium Chloride 1,000 ml @ 100 mls/hr Q10H IV Last administered on 02/10/25at 14:20; Start 02/10/25 at 05:00; Stop 02/10/25 at 17:22; Status DC Insulin Human Regular INSULIN SLIDING SCAL... Q4H SQ Last administered on 02/10/25at 09:15; Start 02/10/25 at 05:00; Stop 02/10/25 at 11:10; Status DC Dextrose 50 ml AD PRN IV; Start 02/10/25 at 05:00; Stop 02/14/25 at 10:17; Status DC Glucagon 1 mg AD PRN IM; Start 02/10/25 at 05:00; Stop 02/14/25 at 10:17; Status DC Magnesium Sulfate 50 ml @ 0 mls/hr PROTOCOL PRN IV Last administered on 02/12/25at 07:13; Start 02/10/25 at 05:00; Stop 02/14/25 at 10:17; Status DC Potassium Chloride 100 ml @ 100 mls/hr AD PRN IV Last administered on 02/15/25at 05:43; Start 02/10/25 at 05:00; Stop 02/15/25 at 06:27; Status DC Potassium Chloride 20 meq AD PRN PO Last administered on 02/22/25at 06:27; Start 02/10/25 at 05:00; Stop 03/12/25 at 04:59 Potassium Chloride 20 meq AD PRN PO Last administered on 02/18/25at 20:18; Start 02/10/25 at 05:00; Stop 03/12/25 at 04:59 Aspirin 81 mg DAILY PO Last administered on 02/22/25at 09:38; Start 02/10/25 at 09:00; Stop 03/12/25 at 08:59 Insulin Human Regular INSULIN SLIDING SCAL... Q6H6 SQ Last administered on 02/11/25at 17:29; Start 02/10/25 at 12:00; Stop 02/14/25 at 09:59; Status DC Clopidogrel Bisulfate 600 mg ONCE PO Last administered on 02/10/25at 14:19; Start 02/10/25 at 14:00; Stop 02/10/25 at 17:22; Status DC Aspirin 325 mg ONCE PO Last administered on 02/10/25at 14:32; Start 02/10/25 at 14:30; Stop 02/10/25 at 17:22; Status DC Sacubitril/ Valsartan 0.5 each BID PO Last administered on 02/13/25at 21:11; Start 02/10/25 at 21:00; Stop 02/14/25 at 09:59; Status DC Empaglifozin 10 mg DAILY PO Last administered on 02/13/25at 10:52; Start 02/10/25 at 14:30; Stop 02/14/25 at 09:59; Status DC Spironolactone 25 mg DAILY PO Last administered on 02/13/25at 10:52; Start 02/10/25 at 14:30; Stop 02/14/25 at 09:59; Status DC Furosemide 20 mg ONCE IV Last administered on 02/10/25at 17:00; Start 02/10/25 at 17:00; Stop 02/10/25 at 21:00; Status DC Furosemide 20 mg ONCE IV; Start 02/11/25 at 09:00; Stop 02/11/25 at 07:43; Status DC Lidocaine HCl 20 ml STK-MED ONCE .ROUTE; Start 02/10/25 at 15:22; Stop 02/10/25 at 15:23; Status DC Iohexol 35,000 mg STK-MED ONCE IV; Start 02/10/25 at 15:22; Stop 02/10/25 at 15:23; Status DC Iohexol 50 ml STK-MED ONCE IV; Start 02/10/25 at 15:22; Stop 02/10/25 at 15:23; Status DC Heparin Sodium (Porcine) 10,000 unit STK-MED ONCE .ROUTE; Start 02/10/25 at 15:23; Stop 02/10/25 at 15:23; Status DC Heparin Sodium/ Sodium Chloride 1,000 ml @ As Directed STK-MED ONCE IV; Start 02/10/25 at 15:23; Stop 02/10/25 at 15:23; Status DC Nitroglycerin 50 mg STK-MED ONCE .ROUTE; Start 02/10/25 at 15:23; Stop 02/10/25 at 15:23; Status DC Heparin Sodium/ Sodium Chloride 500 ml @ As Directed STK-MED ONCE IV; Start 02/10/25 at 15:35; Stop 02/10/25 at 15:35; Status DC Fentanyl Citrate 100 mcg STK-MED ONCE .ROUTE; Start 02/10/25 at 15:39; Stop 02/10/25 at 15:40; Status DC Midazolam HCl 2 mg STK-MED ONCE .ROUTE; Start 02/10/25 at 15:40; Stop 02/10/25 at 15:40; Status DC Bivalirudin 250 mg STK-MED ONCE IV; Start 02/10/25 at 16:15; Stop 02/10/25 at 16:15; Status DC Heparin Sodium (Porcine) 7,000 unit ONCE ONCE IV Last administered on 02/11/25at 05:46; Start 02/11/25 at 05:30; Stop 02/11/25 at 05:31; Status DC Heparin Sodium/ Dextrose 250 ml @ 0 mls/hr Q6H IV Last administered on 02/13/25at 13:01; Start 02/11/25 at 06:30; Stop 02/14/25 at 09:59; Status DC Clopidogrel Bisulfate 75 mg DAILY PO; Start 02/11/25 at 09:00; Stop 02/11/25 at 07:28; Status DC Insulin Glargine 15 units DAILY08 SQ Last administered on 02/12/25at 08:54; Start 02/11/25 at 08:00; Stop 02/13/25 at 05:24; Status DC Furosemide 20 mg DAILY PO Last administered on 02/13/25at 10:52; Start 02/11/25 at 09:00; Stop 02/14/25 at 09:59; Status DC Insulin Human Regular 3 unit TIDAC SQ Last administered on 02/12/25at 16:31; Start 02/12/25 at 07:30; Stop 02/14/25 at 09:59; Status DC Metoprolol Tartrate 12.5 mg BID PO Last administered on 02/14/25at 06:44; Start 02/12/25 at 09:00; Stop 02/14/25 at 09:59; Status DC Potassium Chloride 40 meq BID ONCE PO; Start 02/12/25 at 21:00; Stop 02/12/25 at 21:01; Status DC Magnesium Chloride 64 mg Q8H6 ONCE PO; Start 02/12/25 at 14:00; Stop 02/12/25 at 14:01; Status DC Heparin Sodium (Porcine) *calculation based on ACTUAL B... AD PRN IV Last administered on 02/12/25at 20:16; Start 02/12/25 at 21:00; Stop 02/14/25 at 09:59; Status DC Insulin Glargine 12 units DAILY08 SQ Last administered on 02/13/25at 10:51; Start 02/13/25 at 08:00; Stop 02/14/25 at 09:59; Status DC Cefazolin Sodium 2 gm ONCALL IVP Last administered on 02/14/25at 08:50; Start 02/13/25 at 20:00; Stop 02/14/25 at 18:51; Status DC Epinephrine HCl 10 mg/Sodium Chloride 250 ml @ 0 mls/hr AD PRN IV Last administered on 02/20/25at 17:32; Start 02/14/25 at 06:30; Stop 03/16/25 at 06:29 Norepinephrine Bitartrate 250 ml @ 0 mls/hr AD PRN IV Last administered on 02/17/25at 01:06; Start 02/14/25 at 06:30; Stop 03/16/25 at 06:29 Aminocaproic Acid 75995 mg/Sodium Chloride 480 ml @ 0 mls/hr AD PRN IV; Start 02/14/25 at 06:30; Stop 03/16/25 at 06:29 Epinephrine HCl 10 mg/Sodium Chloride 250 ml @ 0 mls/hr AD PRN IV; Start 02/14/25 at 07:00; Stop 02/14/25 at 06:51; Status DC Norepinephrine Bitartrate 250 ml @ 0 mls/hr AD PRN IV; Start 02/14/25 at 07:00; Stop 02/14/25 at 06:51; Status DC Aminocaproic Acid 35273 mg/Sodium Chloride 480 ml @ 0 mls/hr AD PRN IV; Start 02/14/25 at 07:00; Stop 02/14/25 at 06:51; Status DC Cefazolin Sodium 2 gm STK-MED ONCE .ROUTE; Start 02/14/25 at 06:53; Stop 02/14/25 at 06:53; Status DC Nitroglycerin/ Dextrose 1 ml @ As Directed STK-MED ONCE .ROUTE; Start 02/14/25 at 07:00; Stop 02/14/25 at 07:00; Status DC Cefazolin Sodium 1 gm STK-MED ONCE .ROUTE Last administered on 02/14/25at 10:09; Start 02/14/25 at 07:37; Stop 02/14/25 at 07:38; Status DC Heparin Sodium/ Sodium Chloride 500 ml @ As Directed STK-MED ONCE IV; Start 02/14/25 at 07:38; Stop 02/14/25 at 07:38; Status DC Papaverine HCl 60 mg STK-MED ONCE .ROUTE Last administered on 02/14/25at 10:10; Start 02/14/25 at 07:38; Stop 02/14/25 at 07:38; Status DC Midazolam HCl 2 mg STK-MED ONCE .ROUTE; Start 02/14/25 at 08:14; Stop 02/14/25 at 08:14; Status DC Ketamine HCl 500 mg STK-MED ONCE IJ; Start 02/14/25 at 08:16; Stop 02/14/25 at 08:16; Status DC Protamine Sulfate 250 mg STK-MED ONCE IV; Start 02/14/25 at 08:17; Stop 02/14/25 at 08:17; Status DC Lidocaine HCl 100 mg STK-MED ONCE .ROUTE; Start 02/14/25 at 08:17; Stop 02/14/25 at 08:17; Status DC Heparin Sodium (Porcine) 10,000 unit STK-MED ONCE .ROUTE; Start 02/14/25 at 08:17; Stop 02/14/25 at 08:17; Status DC Epinephrine HCl 1 mg STK-MED ONCE .ROUTE; Start 02/14/25 at 08:17; Stop 02/14/25 at 08:17; Status DC Sodium Bicarbonate 200 ml @ As Directed STK-MED ONCE .ROUTE; Start 02/14/25 at 08:17; Stop 02/14/25 at 08:17; Status DC Norepinephrine Bitartrate 4 mg STK-MED ONCE IV; Start 02/14/25 at 08:17; Stop 02/14/25 at 08:17; Status DC Propofol 200 mg STK-MED ONCE IV; Start 02/14/25 at 08:19; Stop 02/14/25 at 08:19; Status DC Fentanyl Citrate 1,000 mcg STK-MED ONCE IJ; Start 02/14/25 at 08:19; Stop 02/14/25 at 08:19; Status DC Midazolam HCl 2 mg STK-MED ONCE .ROUTE; Start 02/14/25 at 08:20; Stop 02/14/25 at 08:20; Status DC Rocuronium [place] 50 mg STK-MED ONCE .ROUTE; Start 02/14/25 at 08:20; Stop 02/14/25 at 08:20; Status DC Acetaminophen 1,000 mg Q6H6 IV Last administered on 02/15/25at 12:14; Start 02/14/25 at 14:00; Stop 02/15/25 at 13:59; Status DC Aspirin 81 mg ONCE ONCE NG Last administered on 02/14/25at 13:56; Start 02/14/25 at 14:00; Stop 02/14/25 at 14:01; Status DC Docusate Sodium 100 mg BID PO Last administered on 02/22/25at 09:38; Start 02/14/25 at 21:00; Stop 03/16/25 at 20:59 Lactulose 20 gm BID PRN PO; Start 02/14/25 at 10:00; Stop 03/16/25 at 09:59 Furosemide 20 mg Q12H PO Last administered on 02/16/25at 08:19; Start 02/16/25 at 09:00; Stop 02/16/25 at 10:21; Status DC Furosemide 20 mg Q12H IV Last administered on 02/15/25at 20:16; Start 02/15/25 at 09:00; Stop 02/16/25 at 08:59; Status DC Atorvastatin Calcium 40 mg HS PO Last administered on 02/21/25at 21:03; Start 02/14/25 at 21:00; Stop 03/16/25 at 20:59 Enoxaparin Sodium 30 mg DAILY SQ Last administered on 02/22/25at 09:37; Start 02/17/25 at 09:00; Stop 03/19/25 at 08:59 Metoprolol Tartrate 12.5 mg BID PO; Start 02/16/25 at 09:00; Stop 02/20/25 at 09:01; Status DC Magnesium Hydroxide 30 ml DAILY PRN PO; Start 02/14/25 at 10:00; Stop 03/16/25 at 09:59 Dexmedetomidine/ Sodium Chloride 400 mcg PROTOCOL IV; Start 02/14/25 at 10:00; Stop 02/15/25 at 09:59; Status DC Acetaminophen 650 mg Q6H PRN PO; Start 02/14/25 at 10:00; Stop 03/16/25 at 09:59 Heparin Sodium (Porcine) 10,000 unit STK-MED ONCE .ROUTE; Start 02/14/25 at 10:00; Stop 02/14/25 at 10:00; Status DC Sodium Chloride 1,000 ml @ 10 mls/hr ONCE IV; Start 02/14/25 at 10:00; Stop 02/15/25 at 09:59; Status DC Sodium Chloride 10 ml Q8H PRN IVP; Start 02/14/25 at 10:00; Stop 03/16/25 at 09:59 Morphine Sulfate 0.5 mg Q2H PRN IV; Start 02/14/25 at 10:00; Stop 02/15/25 at 09:59; Status DC Morphine Sulfate 1 mg Q2H PRN IV Last administered on 02/14/25at 14:23; Start 02/14/25 at 10:30; Stop 02/19/25 at 13:29; Status DC Acetaminophen 650 mg Q4H PRN RC; Start 02/14/25 at 10:00; Stop 03/16/25 at 09:59 Ondansetron HCl 4 mg Q6H PRN IV; Start 02/14/25 at 10:00; Stop 03/16/25 at 09:59 Sodium Chloride 500 ml @ 0 mls/hr AD IV; Start 02/14/25 at 10:00; Stop 03/16/25 at 09:59 Nitroglycerin/ Dextrose 0 ml @ 0 mls/hr AD IV; Start 02/14/25 at 10:00; Stop 02/17/25 at 09:59; Status DC Propofol 100 ml @ 0 mls/hr AD PRN IV; Start 02/14/25 at 10:00; Stop 02/18/25 at 09:59; Status DC Norepinephrine Bitartrate 8 mg/ Dextrose 250 ml @ 0 mls/hr AD PRN IV; Start 02/14/25 at 10:00; Stop 02/14/25 at 10:14; Status DC Epinephrine HCl 10 mg/Sodium Chloride 250 ml @ 0 mls/hr AD PRN IV; Start 02/14/25 at 10:00; Stop 02/14/25 at 10:14; Status DC Aminocaproic Acid 01144 mg/Sodium Chloride 310 ml @ 25 mls/hr AD IV; Start 02/14/25 at 10:00; Stop 02/14/25 at 10:19; Status DC Calcium Gluconate 1 gm/Sodium Chloride 60 ml @ 200 mls/hr AD PRN IV Last administered on 02/21/25at 08:36; Start 02/14/25 at 10:00; Stop 03/16/25 at 09:59 Magnesium Sulfate 50 ml @ 12.5 mls/hr AD PRN IV Last administered on 02/21/25at 16:43; Start 02/14/25 at 10:00; Stop 03/16/25 at 09:59 Potassium Chloride 100 ml @ 100 mls/hr AD PRN IV Last administered on 02/21/25at 16:43; Start 02/14/25 at 10:00; Stop 03/16/25 at 09:59 Potassium Phosphate 250 ml @ 42 mls/hr AD PRN IV; Start 02/14/25 at 10:00; Stop 03/16/25 at 09:59 Albumin Human 250 ml @ 0 mls/hr AD PRN IV Last administered on 02/14/25at 14:42; Start 02/14/25 at 10:00; Stop 02/14/25 at 14:42; Status DC Acetaminophen 650 mg Q4H PRN PO; Start 02/14/25 at 10:00; Stop 03/16/25 at 09:59 Insulin Human Regular 100 unit/ Sodium Chloride 100 ml @ 0 mls/hr AD IV Last administered on 02/15/25at 06:30; Start 02/14/25 at 10:00; Stop 02/16/25 at 09:59; Status DC Cefazolin Sodium 2 gm Q8H IVPB Last administered on 02/15/25at 06:25; Start 02/14/25 at 15:00; Stop 02/15/25 at 07:01; Status DC Tramadol HCl 25 mg Q6H PRN PO; Start 02/14/25 at 10:00; Stop 02/19/25 at 09:59; Status DC Tramadol HCl 50 mg Q6H PRN PO; Start 02/14/25 at 10:00; Stop 02/19/25 at 09:59; Status DC Famotidine 20 mg BID IV Last administered on 02/15/25at 20:15; Start 02/14/25 at 21:00; Stop 02/16/25 at 07:58; Status DC Sodium Bicarbonate 50 meq AD PRN IV Last administered on 02/16/25at 15:25; Start 02/14/25 at 10:00; Stop 02/17/25 at 09:59; Status DC Dextrose 50 ml AD PRN IV; Start 02/14/25 at 10:00; Stop 03/16/25 at 09:59 Glucagon 1 mg AD PRN IM; Start 02/14/25 at 10:00; Stop 03/16/25 at 09:59 Dobutamine HCl 250 mg STK-MED ONCE .ROUTE; Start 02/14/25 at 10:28; Stop 02/14/25 at 10:28; Status DC Sodium Bicarbonate 50 ml @ As Directed STK-MED ONCE .ROUTE; Start 02/14/25 at 10:52; Stop 02/14/25 at 10:52; Status DC Sodium Bicarbonate 200 ml @ As Directed STK-MED ONCE .ROUTE; Start 02/14/25 at 10:53; Stop 02/14/25 at 10:53; Status DC Vasopressin 20 units STK-MED ONCE .ROUTE; Start 02/14/25 at 11:51; Stop 02/14/25 at 11:51; Status DC Rocuronium [place] 50 mg STK-MED ONCE .ROUTE; Start 02/14/25 at 12:14; Stop 02/14/25 at 12:14; Status DC Sodium Bicarbonate 100 ml @ As Directed STK-MED ONCE .ROUTE; Start 02/14/25 at 12:16; Stop 02/14/25 at 12:16; Status DC Vasopressin 40 units/Sodium Chloride 40 ml @ 0 mls/hr PROTOCOL IV Last administered on 02/14/25at 22:11; Start 02/14/25 at 13:00; Stop 03/16/25 at 12:59 Albumin Human 250 ml @ 0 mls/hr AD IV Last administered on 02/18/25at 10:27; Start 02/14/25 at 15:30; Stop 02/18/25 at 10:40; Status DC Calcium Gluconate 2 gm/Sodium Chloride 100 ml @ 0 mls/hr ONCE ONCE IV Last administered on 02/14/25at 16:15; Start 02/14/25 at 16:30; Stop 02/14/25 at 16:31; Status DC Pharmacy Profile Note 1 each ONCE MISC; Start 02/14/25 at 18:00; Stop 02/14/25 at 18:27; Status DC Sodium Bicarbonate 25 meq/Dextrose 1,025 ml @ 0 mls/hr Q0M IV Last administered on 02/18/25at 13:03; Start 02/14/25 at 18:00; Stop 03/16/25 at 17:59 Famotidine 20 mg BID PO Last administered on 02/16/25at 20:03; Start 02/16/25 at 09:00; Stop 02/17/25 at 07:09; Status DC Insulin Human Regular INSULIN SLIDING SCAL... ACHS SQ Last administered on 02/21/25at 06:34; Start 02/16/25 at 11:30; Stop 03/18/25 at 11:29 Cefepime HCl 1 gm Q12H IVPB Last administered on 02/19/25at 22:54; Start 02/16/25 at 10:30; Stop 02/20/25 at 08:16; Status DC Furosemide 100 mg/ Sodium Chloride 100 ml @ 0 mls/hr PROTOCOL IV Last administered on 02/19/25at 11:35; Start 02/16/25 at 10:30; Stop 02/20/25 at 09:01; Status DC Vancomycin HCl 500 ml @ 250 mls/hr ONCE ONCE IV Last administered on 02/16/25at 11:39; Start 02/16/25 at 12:00; Stop 02/16/25 at 13:59; Status DC Sodium Chloride 4 ml STK-MED ONCE IH Last administered on 02/16/25at 10:53; Start 02/16/25 at 10:44; Stop 02/16/25 at 10:44; Status DC Sodium Chloride 4 ml STK-MED ONCE IH Last administered on 02/16/25at 14:33; Start 02/16/25 at 14:26; Stop 02/16/25 at 14:26; Status DC Sodium Chloride 4 ml STK-MED ONCE IH Last administered on 02/16/25at 19:16; Start 02/16/25 at 18:32; Stop 02/16/25 at 18:32; Status DC Famotidine 20 mg DAILY PO Last administered on 02/22/25at 09:38; Start 02/17/25 at 09:00; Stop 03/18/25 at 08:59 Latanoprost 1 DROP FOR EACH EYE HS OP Last administered on 02/21/25at 21:04; Start 02/17/25 at 21:00; Stop 03/19/25 at 20:59 Home Med (Brimonidine-Timolol 0.2%/0.5% EYE DROPS) DAILY OP Last administered on 02/22/25at 09:40; Start 02/18/25 at 09:00; Stop 03/20/25 at 08:59 Albumin Human 250 ml @ 0 mls/hr AD IV; Start 02/18/25 at 10:30; Stop 02/20/25 at 09:03; Status DC Vancomycin HCl 1 each AD IV; Start 02/18/25 at 11:00; Stop 03/04/25 at 10:59 Vancomycin HCl 250 ml @ 125 mls/hr Q12H IV Last administered on 02/19/25at 11:20; Start 02/18/25 at 11:30; Stop 02/21/25 at 05:33; Status DC Potassium Chloride 20 meq BID PO Last administered on 02/22/25at 09:38; Start 02/19/25 at 10:30; Stop 03/21/25 at 10:29 Dexmedetomidine/ Sodium Chloride 400 mcg STK-MED ONCE IV Last administered on 02/20/25at 07:08; Start 02/20/25 at 07:00; Stop 02/20/25 at 07:00; Status DC Dexmedetomidine/ Sodium Chloride 400 mcg PROTOCOL IV Last administered on 02/22/25at 05:51; Start 02/20/25 at 07:30; Stop 03/22/25 at 07:29 Carvedilol 3.125 mg BID PO; Start 02/20/25 at 21:00; Stop 03/22/25 at 20:59 Spironolactone 25 mg DAILY PO Last administered on 02/22/25at 09:39; Start 02/20/25 at 09:00; Stop 03/22/25 at 08:59 Empaglifozin 10 mg DAILY PO Last administered on 02/22/25at 09:38; Start 02/20/25 at 09:00; Stop 03/22/25 at 08:59 Albumin Human 50 ml @ 0 mls/hr Q12H9 IV Last administered on 02/22/25at 09:35; Start 02/20/25 at 09:00; Stop 02/25/25 at 08:59 Furosemide 20 mg Q12H IV Last administered on 02/22/25at 09:36; Start 02/20/25 at 09:00; Stop 03/22/25 at 08:59 Pharmacy Profile Note 1 each ONCE MISC; Start 02/20/25 at 11:30; Stop 02/20/25 at 11:19; Status DC Piperacillin Sod/ Tazobactam Sod 50 ml @ 12.5 mls/hr Q8H IVPB Last administered on 02/22/25at 04:30; Start 02/20/25 at 11:30; Stop 03/02/25 at 11:29 Vancomycin HCl 250 ml @ 125 mls/hr Q24H IV Last administered on 02/22/25at 06:27; Start 02/21/25 at 06:00; Stop 02/28/25 at 11:29 Insulin Glargine 10 units DAILY SQ; Start 02/21/25 at 09:00; Stop 03/23/25 at 08:59 Calcium Gluconate 1 gm STK-MED ONCE .ROUTE; Start 02/21/25 at 08:34; Stop 02/21/25 at 08:34; Status DC Etomidate 20 mg STK-MED ONCE .ROUTE; Start 02/21/25 at 12:27; Stop 02/21/25 at 12:28; Status DC Fentanyl Citrate 100 mcg STK-MED ONCE .ROUTE; Start 02/21/25 at 12:30; Stop 02/21/25 at 12:30; Status DC Rocuronium [place] 50 mg STK-MED ONCE .ROUTE; Start 02/21/25 at 12:30; Stop 02/21/25 at 12:30; Status DC Lidocaine HCl 20 ml STK-MED ONCE .ROUTE; Start 02/21/25 at 12:31; Stop 02/21/25 at 12:31; Status DC Cefazolin Sodium 1 gm STK-MED ONCE .ROUTE; Start 02/21/25 at 12:31; Stop 02/21/25 at 12:32; Status DC Bupivacaine HCl 2.5 mg STK-MED ONCE IJ; Start 02/21/25 at 12:32; Stop 02/21/25 at 12:32; Status DC Propofol 200 mg STK-MED ONCE IV; Start 02/21/25 at 12:35; Stop 02/21/25 at 12:35; Status DC Lidocaine HCl 100 mg STK-MED ONCE .ROUTE; Start 02/21/25 at 12:46; Stop 02/21/25 at 12:46; Status DC Cefazolin Sodium 1 gm STK-MED ONCE .ROUTE; Start 02/21/25 at 12:51; Stop 02/21/25 at 12:51; Status DC Rocuronium [place] 50 mg STK-MED ONCE .ROUTE; Start 02/21/25 at 13:03; Stop 02/21/25 at 13:03; Status DC Cefazolin Sodium 2 gm STK-MED ONCE IVPB Last administered on 02/21/25at 12:53; Start 02/21/25 at 12:53; Stop 02/21/25 at 14:14; Status DC Lidocaine HCl 20 ml STK-MED ONCE INJ Last administered on 02/21/25at 12:18; Start 02/21/25 at 12:18; Stop 02/21/25 at 14:14; Status DC Bupivacaine HCl 75 mg STK-MED ONCE IJ Last administered on 02/21/25at 12:18; Start 02/21/25 at 12:18; Stop 02/21/25 at 14:14; Status DC PHYSICAL EXAMINATION: GENERAL: No acute distress. HEENT: Normocephalic, atraumatic. CARDIAC: Positive S1 and S2. No obvious murmurs LUNGS: Clear to auscultation bilaterally. ABDOMEN: Bowel sounds present, soft, nontender. EXTREMITIES: Pneumatic compression in place NEUROLOGIC: Cranial nerves 2-12 grossly intact. PSYCHIATRIC: Calm. 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 We will institute guideline directed medical therapy regarding CHRISTIANNE inhibition/ARB/beta blockers as blood pressure tolerates. No new orders being placed today. We will see how patient does in regards to hemodynamics but will hold off on any initiation of medications today. We will continue to follow closely. BILLY FOSTER MD Feb 22, 2025 10:13
--- NOTE | 2025-02-22 11:53 | NUR ---
[facility] ICU Skin Assessment: Patient assessed by wound healing team. Patient with no wounds or skin breakdown noted. Assessment and recommendations provided to primary nurse. Education provided.
--- NOTE | 2025-02-22 12:48 | HMCIMG ---
CHEST 1VW REASON: s/p PICC LINE PLACEMENT COMPARISON: Prior study from 02/21/2025 is available. FINDINGS: Single view of the chest was obtained. There is mild cardiomegaly with median sternotomy with cardiac and aspiration procedure. There is a moderate left-sided pleural effusion with hazy appearance of the left lung. The right lung appears to be clear. There is a vascular sheath seen in the right internal jugular vein. There is a left-sided PICC catheter with tip in superior vena cava.. Mediastinum and bony thorax appear unremarkable. IMPRESSION: 1. Support lines including right internal jugular vascular sheath and left-sided PICC catheter to be in satisfactory position 2. Cardiomegaly with median sternotomy with cardiac revascularization procedure 3. There is suggestion of a moderate left-sided pleural effusion. This is amenable for thoracentesis.
--- NOTE | 2025-02-22 13:35 | PN ---
[facility] PROGRESS NOTE Date Patient Seen: Feb 22, 2025 Time of Visit: 13:25 Supervising Physician: MARGARITA RINALDI MD Primary Care Physician: KELLEY ENCINAS MD Outpatient Specialists: Inpatient Consults: BIS PROBLEM LIST: CAD, status post CABG x3 Impella and a intra-aortic balloon pump support Type 2 diabetes Congested heart failure EF 20% Obstructive coronary artery disease Atherosclerosis Primary hypertension Morbid obesity; BMI 36 Cardiogenic shock INTERVAL HISTORY: Impella device removed this morning Patient on room air No acute distress, off pressors Still on 3 L O2 Denies chest pain, denies palpitations Complains of generalized weakness Patient awake and alert, off Precedex Patient is now up to chair REVIEW OF SYSTEMS: 12 point ROS reviewed with patient. Pertinent positives mentioned above. Otherwise negative. PHYSICAL EXAM: GENERAL: Patient comfortable in bed, HEENT: EOMI, Sclera non icteric, moist mucosa NECK: Supple, no JVD, trachea midline LUNGS: Clear breath sounds bilaterally. No wheezes HEART: Regular rate and rhythm. Normal S1 and S2, without murmurs sternum wound looks clean, no bleeding or discharge. ABD: Abdomen soft, nontender. Bowel sounds present EXT: No clubbing cyanosis or edema NEURO: Awake alert and oriented Vital Signs (last 8hr) Date Time Temp Pulse Resp B/P (MAP) Pulse Ox O2 Delivery O2 Flow Rate FiO2 02/22/25 09:00 135/49 02/22/25 06:26 74 19 N/Cannula Low lpm 3.0 32 02/22/25 06:00 75 28 135/49 (77) 100 02/22/25 05:45 76 42 139/51 (80) 100 02/22/25 05:38 93 23 135/50 (78) 100 126/76 (93) 02/22/25 05:30 77 39 134/51 (78) 100 LABS: Hematology Labs: Test 02/22/25 04:11 Range/Units White Blood Count 14.0 H 4.8-10.8 K/uL Red Blood Count 2.75 L 4.50-6.20 MIL/uL Hemoglobin 8.2 L 14.0-18.0 g/dL Hematocrit 24.2 L 42-54 % Mean Corpuscular Volume 88.0 79-99 fL Mean Corpuscular Hemoglobin 29.8 27.0-33.0 pg Mean Corpuscular Hemoglobin Concent 33.9 32.0-36.0 g/dL Red Cell Distribution Width 14.7 11.0-15.5 % Platelet Count 310 130-400 K/uL Mean Platelet Volume 10.8 H 7.5-10.5 fL Immature Granulocyte % (Auto) 9.5 H 0-1 % Neutrophils (%) (Auto) 57.9 40.0-77.0 % Lymphocytes (%) (Auto) 18.8 L 21.0-51.0 % Monocytes (%) (Auto) 9.9 3.0-13.0 % Eosinophils (%) (Auto) 3.3 0.0-8.0 % Basophils (%) (Auto) 0.6 0.0-5.0 % Neutrophils # (Auto) 8.1 H 1.8-7.7 K/uL Lymphocytes # (Auto) 2.6 1.0-4.8 K/uL Monocytes # (Auto) 1.4 H 0.1-1.0 K/uL Eosinophils # (Auto) 0.46 0.00-0.70 K/uL Basophils # (Auto) 0.08 0.00-0.20 K/uL Absolute Immature Granulocyte (auto 1.33 H 0-1 K/uL Nucleated Red Blood Cells 0.7 H 0.0-0.19 % Chemistry Labs: Test 02/22/25 11:49 02/22/25 04:11 02/21/25 04:21 Range/Units Whole Blood Glucose 217 H 70-110 MG/DL Sodium Level 133 L 136-145 mmol/L Potassium Level 3.8 3.5-5.1 mmol/L Chloride Level 98 L 101-111 mmol/L Carbon Dioxide Level 26 21-32 mmol/L Blood Urea Nitrogen 14 7-18 mg/dL Creatinine 0.9 0.5-1.3 mg/dL Glomerular Filtration Rate Calc 89 >90 mL/min Random Glucose 183 H 70-105 mg/dL Total Calcium 7.8 L 8.5-10.1 mg/dL Magnesium Level 2.00 1.80-2.40 mg/dL Total Bilirubin 1.9 #H 0.2-1.0 mg/dL Aspartate Amino Transf (AST/SGOT) 29 10-37 U/L Alanine Aminotransferase (ALT/SGPT) 26 12-78 U/L Alkaline Phosphatase 73 50-136 U/L Total Protein 6.1 6.0-8.3 g/dL Albumin 2.7 #L 3.5-5.0 g/dL Coagulation Labs: Test 02/21/25 04:21 Range/Units Prothrombin Time 11.9 H 9.6-11.6 SEC Prothromb Time International Ratio 1.14 0.85-1.15 Activated Partial Thromboplast Time 31.0 26.3-35.5 SEC Fibrinogen 550 *H 180-350 mg/dL DIAGNOSTICS / RADIOLOGY RESULTS: [ ] PLAN Patient does have a small pleural effusion to the left lung there is no need for any thoracentesis at this time Patient is still on epinephrine and we will continue on epinephrine as per instructions by Cardiothoracic surgeon Hold off midodrine for 24 more hours PICC line placement today Telemetry monitoring NEURO: Minimize central acting medications as possible. Fall Precautions. Well lighted room through the day and minimize interruptions through the night to prevent acute delirium. PULMONARY: Supplemental 02 as needed Titrate Fio2 to keep Spo2 > or = 90% DuoNebs and CPT as needed IS hourly while awake for pulmonary hygiene Out of bed to chair as tolerated VAP Bundle Vent/BIPAP Settings: [ ] Driving pressure: [ ] P Plat: [ ] Static C: [ ] Static R: [ ] P/F Ratio: [ ] CARDIOVASCULAR: Follow hemodynamics. Titrate vasopressor to keep MAP >65 or systolic blood pressure >95mmHg DIPS: [ ] LINES: [ ] GI & NUTRITION: Continue nutritional support Aspirations precautions Prokinetic agents and laxatives as needed KIDNEYS & ELECTROLYTES: Strict monitoring of intake and output Daily weights Avoid nephrotoxic agents Monitor electrolytes and replace as needed Goal urine output of 30mL/hr or 0.5mL/kg/hr Urine output: [ ] Fluid Balance: [ ] ENDOCRINE: Maintain blood glucose between 100-180 at all times. Insulin sliding scale for blood glucose management INFECTIOUS DISEASE: Trend temperature. Caldwell-culture if febrile. Micro: [ ] Antibiotics: [ ] HEMATOLOGY & COAGULATION: Monitor H&H. Keep Hgb > 7 Transfuse 1 unit of PRBC for Hgb < 7 Transfuse 1 pack of platelets of platelets < 20, 000 Watch for any signs and symptoms of bleeding SKIN: Pressure ulcer prevention per facility protocol Rehab: PT/OT Prophylaxis: GI: [Protonix ] DVT: [Lovenox ] Code Status: Full Resuscitation Disposition: [ Continue medical management in the ICU] Total critical care time 35 minutes I personally scribed for MARGARITA RINALDI MD ([facility]) on 02/22/25 at 13:35. Electronically submitted by Jason Garcia ([facility]). MARGARITA RINALDI MD Feb 22, 2025 13:35
--- NOTE | 2025-02-22 14:54 | PN ---
[facility] PROGRESS NOTE Date of Service: Feb 22, 2025 Time of Service: 14:28 HISTORY OF PRESENT ILLNESS: This is a 74-year-old male,a [employer] whith past medical history of diabetes, hyperlipidemia and IA/coronary artery disease with cardiac stent who presented to the Ed for complaints of midsternal chest pain that is non radiating associated with diaphoresis and this happened when patient was laying down in bed aroun 11:50 pm last night and decided to come to the ED for evaluation.Patient reports pain was persistent.As per patient he had a history of heart attack before and underwent a stent placement.Patient reports the only medication he is taking is Metformin.Patient states he is supposed to be on Aspirin but has stopped taking it.Patient reports he occasionally drinks beer and last drink was yesterday ,had 2 beers he said. Seen and examined patient in the ER awake,alert and coherent,appears comfortable.Patient denies fever,chills,cough,nausea,vomiting,palpitation and shortness of breath. Latest vital signs temperature 98.2, heart rate 75, blood pressure 124/70 saturation 97% on room air. Labs: CBC unremarkable. Chloride 99, BUN 21, random glucose 469 to 439 to 327. Troponin from -. ECG result revealed revealed sinus rhythm heart rate 85 with atrial premature complex anterolateral infarct age indeterminate. Second EKG result revealed sinus rhythm heart rate 73 with left anterior fascicular block. Probable anterolateral infarct age indeterminate. Abnormal T consider ischemia lateral leads.. Chest x-ray result revealed no acute cardiopulmonary process is evident. While in the ER patient received 1500 mL NS bolus, insulin 5 units IV, aspirin 325 mg p.o. and patient was started on heparin drip per [facility] protocol. SUBJECTIVE: 02/10/25: Patient was seen and evaluated in ED9. Patient was alert, awake and orientedX3. Patient reports that he doesn't have any chest pain today. Patient reports occasional shortness of breath during nights. Patient denies any shortness of breath, nausea, vomiting, palpitations and lightheadedness. Patient denies any abdominal pain, burning urination. Patient mentions that he only takes metformin 3-4 times per week and has stopped taking aspirin because it wasn't reconciled. Troponin from -. 2D ECHO was done, pending results. Patient is currently on Heparin drip 02/11/25: Patient was evaluated at the bedside this morning. No overnight event. He is AAO x3. patient reported that he does not have chest pain or shortness of breath. He is hemodynamically stable. The labs remarkable for potassium 3.3, magnesium 1.6, HbA1c 13.9, troponin 21687. Left heart catheterization revealed severe triple-vessel disease. Echocardiogram revealed 25% ejection fraction with segmental akinesis. CT surgery was consulted who recommended CABG with Impella left ventricle assist. Family to decide about the procedure. He is currently on heparin drip, aspirin. Endocrinology on board. Rest of the plan as discussed below. 02/12/25: Patient was evaluated at the bedside this morning. No overnight event. He is AAO x3. patient reported that he does not have chest pain or shortness of breath. He is hemodynamically stable. Cardiology is on board and Dr. Blanton have suggested low-dose beta estela like metoprolol tartrate 12.5 mg b.i.d. for his heart failure. Dr Fried still recommends CABG with 5.5 Impella LVAD and the patient agrees to it. We will continue Entresto, Aldactone, Jardiance, aspirin, Lasix as per CT surgeon recommendations. Today his potassium is 3.1 and we would like to be above 4 for CABG patients. So we will replace potassium 02/13/25: Patient was seen and evaluated in room 201. Patient reports feeling better. patient denies any chest pain, shortness of breath. He is continuing on Entresto, Aldactone, Jardiance, aspirin, Lasix as per CT surgeon recommendations.Patients Potassium today is 3.7, will continue replacing potassium. Patients was present along with the patient, she has a few question about the CABG procedure which she wanted to ask Dr. Alexis. 02/14/25. Patient was undergoing CABG procedure today in the morning. 02/15/25: Patient was seen and evaluated in room 213. Patient status post CABG day 1. Patient denies any fever, chills, shortness of breath. Patient complaints of pain along the incision. Patient is on IABP and Impella support. patient is on Vasopressin and Norepinephrine drip. Entresto, Aldactone, Jardiance were discontinued by Dr. Alexis. CT surgery are on the case and will follow their recommendations. 02/16/25: Patient was seen and evaluated in room 213. Patient status post CABG day 2. patient was asleep when we went bedside. Spoke with the nurse regarding overnights and she mentioned that patient was a bit confused in the night but later improved with sleep. Patient is continuing on Epinephrine drip. Patient was weaned off IABP and is currently only on Impella. Patient was started on Vancomycin and cefepime due to elevated WBC levels and findings suggestive of pneumonia on chest x-ray 02/17/25: Patient was seen and evaluated in room 213. Patient status post CABG day 2. patient was asleep when we went bedside. Spoke with the nurse regarding overnights and he mentioned that patient was started on lasix protocol. Patient is continuing on Epinephrine drip and Impella. Critical care are on the case and will follow their recommendations. 02/18/25: Patient was seen and examined at bedside. He is status post CABG day 3. He continues on Lasix drip 2.5, With Impella P3 support and epinephrine drip. His total output in the past 24 hours has been optimal, 4740 versus 2165 input. No acute events overnight. We will follow CTS recommendations regarding further weaning off Impella. 02/19/25: Patient was seen and evaluated in room 210. He is status post CABG day 4. He continues on Lasix drip 2.5, With Impella P3 support and epinephrine drip. His total output in the past 24 hours has been 2905 versus 4072. No acute overnight. Patient is scheduled for possible impella removal tomorrow. 02/20/25: Patient was seen and evaluated in room 210. He is status post CABG day 5. He continues on Lasix drip 2.5, Impella setting have been maintained at P3 settings. He is continuing on epinephrine drip. Cefepime was discontinued yesterday because overnight the patient was confused, agitated and combative suspecting the cause of his confusion and started on Zosyn. His total output in the past 24 hours has been 2675 versus 2206. Patient is scheduled for possible impella removal tomorrow. 02/21/25: Patient was seen and evaluated in room 210. He is status post CABG day 6. Patient is continuing on Epinephrine drip. patient was started on Lasix 20mg IV. Patient is scheduled for impella removal today. Patient is continuing on Zosyn. His total output in the past 24 hours has been 6700 versus 1785. 02/22/25: Patient was seen and evaluated in room 210. Patient reports feeling better and he doesn't have any active complaints, Impella was removed yesterday and patient is continuing on Epinephrine drip. patient denies any shortness of breath, fever, chills and chest pain. Patient is continuing on Zosyn. His total output in the past 24 hours has been 3650 versus 1775. REVIEW OF SYSTEMS CONSTITUTIONAL: Denies fevers, chills, or night sweats. No unintentional weight loss reported. NEUROLOGICAL: Denies headache, amaurosis fugax, motor weakness, sensory deficit, vertigo/spinning sensation, gait abnormalities, or tremors. ENT: No hearing loss, otalgia, otorrhea, rhinitis, rhinorrhea, hoarseness, or sore throat. CARDIOVASCULAR: Denies chest pain, dyspnea on exertion, orthopnea, paroxysmal nocturnal dyspnea, palpitations, life-threatening arrhythmias, claudication. PULMONARY: Denies any cough, phlegm/sputum, hemoptysis, pleuritic chest pain. GASTROINTESTINAL: Denies any type of dysphagia to either liquids or solids. Denies nausea, vomiting, pyrosis, early satiety, abdominal pain, diarrhea, constipation, or changes in stool consistency or caliber. Denies coffee-ground emesis, hematemesis, hematochezia, or melanotic stools. GENITOURINARY: Denies frequency, urgency, nocturia, hematuria or incontinence (Storage/Irritative symptoms.) Low urinary stream, straining to void, urinary intermittency or hesitancy, splitting of the voiding stream, terminal dribbling. PHYSICAL EXAM GENERAL APPEARANCE: The patient is awake, alert, and oriented, in no acute cardiopulmonary distress. NEUROLOGICAL: Cranial nerves II-XII grossly intact. Motor is 5/5 in bilateral upper and lower extremities proximal to distal. No sensory deficits. HEENT: Face is symmetric. Pupils are equal and reactive. Extraocular movements are intact. NECK: Supple. No JVD. No thyromegaly. No submental, submandibular, pre- /postauricular, occipital or supraclavicular lymphadenopathy. CHEST: Normal chest expansion. No Telemetry. LUNGS: Absence of any rales, rhonchi or any wheezing. CARDIOVASCULAR: Regular. S1 and S2 normal. No appreciable rubs, murmurs or g allops. ABDOMEN: Soft, nontender, and nondistended. There is no rebound, voluntary gua rding, or rigidity. : Deferred. No De Jesus. EXTREMITIES: Non-edematous and not cyanotic. No clubbing. Good capillary refill. SKIN: No skin breakdown. Vital Signs (last 8hr) Date Time Temp Pulse Resp B/P (MAP) Pulse Ox O2 Delivery O2 Flow Rate FiO2 02/22/25 09:00 135/49 LABS: Laboratory: Test 02/22/25 11:49 02/22/25 04:11 02/21/25 04:21 02/21/25 03:01 Range/Units Whole Blood Glucose 217 H 70-110 MG/DL White Blood Count 14.0 H 4.8-10.8 K/uL Red Blood Count 2.75 L 4.50-6.20 MIL/uL Hemoglobin 8.2 L 14.0-18.0 g/dL Hematocrit 24.2 L 42-54 % Mean Corpuscular Volume 88.0 79-99 fL Mean Corpuscular Hemoglobin 29.8 27.0-33.0 pg Mean Corpuscular Hemoglobin Concent 33.9 32.0-36.0 g/dL Red Cell Distribution Width 14.7 11.0-15.5 % Platelet Count 310 130-400 K/uL Mean Platelet Volume 10.8 H 7.5-10.5 fL Immature Granulocyte % (Auto) 9.5 H 0-1 % Neutrophils (%) (Auto) 57.9 40.0-77.0 % Lymphocytes (%) (Auto) 18.8 L 21.0-51.0 % Monocytes (%) (Auto) 9.9 3.0-13.0 % Eosinophils (%) (Auto) 3.3 0.0-8.0 % Basophils (%) (Auto) 0.6 0.0-5.0 % Neutrophils # (Auto) 8.1 H 1.8-7.7 K/uL Lymphocytes # (Auto) 2.6 1.0-4.8 K/uL Monocytes # (Auto) 1.4 H 0.1-1.0 K/uL Eosinophils # (Auto) 0.46 0.00-0.70 K/uL Basophils # (Auto) 0.08 0.00-0.20 K/uL Absolute Immature Granulocyte (auto 1.33 H 0-1 K/uL Nucleated Red Blood Cells 0.7 H 0.0-0.19 % Sodium Level 133 L 136-145 mmol/L Potassium Level 3.8 3.5-5.1 mmol/L Chloride Level 98 L 101-111 mmol/L Carbon Dioxide Level 26 21-32 mmol/L Blood Urea Nitrogen 14 7-18 mg/dL Creatinine 0.9 0.5-1.3 mg/dL Glomerular Filtration Rate Calc 89 >90 mL/min Random Glucose 183 H 70-105 mg/dL Total Calcium 7.8 L 8.5-10.1 mg/dL Magnesium Level 2.00 1.80-2.40 mg/dL Prothrombin Time 11.9 H 9.6-11.6 SEC Prothromb Time International Ratio 1.14 0.85-1.15 Activated Partial Thromboplast Time 31.0 26.3-35.5 SEC Fibrinogen 550 *H 180-350 mg/dL Total Bilirubin 1.9 #H 0.2-1.0 mg/dL Aspartate Amino Transf (AST/SGOT) 29 10-37 U/L Alanine Aminotransferase (ALT/SGPT) 26 12-78 U/L Alkaline Phosphatase 73 50-136 U/L Total Protein 6.1 6.0-8.3 g/dL Albumin 2.7 #L 3.5-5.0 g/dL Vancomycin Level Trough 2.8 #L 10.0-20.0 UG/ML Blood Gas Specimen Type Arterial Arterial Blood pH 7.477 H 7.350-7.450 Arterial Blood Partial Pressure CO2 32 L 35-48 mmHg Arterial Blood Partial Pressure O2 67.5 L 83.0-108.0 mmHg Arterial Blood HCO3 23.1 21.0-28.0 mmol/L Arterial Blood Oxygen Saturation 92.8 L 94.0-98.0 % Arterial Blood Base Excess 0.1 -2.0-3.0 mmol/L Hemoglobin (Blood Gas) 11.5 L 13.5-17.5 g/dL Sodium (Blood Gas) 136 136-145 MMOL/L Bedside Potassium (Blood Gas) 3.7 3.4-4.5 MMOL/L Bedside Chloride (Blood Gas) 99 98-107 MMOL/L Bedside Glucose (Blood Gas) 219 H 65-95 MG/DL Bedside Ionized Calcium (Blood Gas) 1.09 L 1.15-1.33 MMOL/L Bedside Lactic Acid (Blood Gas) 1.42 H 0.36-0.75 MMOL/L Blood Gas Temperature 37.0 35.5-37.0 CELSIUS Blood Gas Vent Mode RA ROOM AIR FiO2 21.0 % Blood Gas Specimen Comment MARGUERITE RN, RB Current Medications Medications (Trade) Dose Ordered Sig/Carol Route PRN Reason Start Time Stop Time Status Last Admin Dose Admin Acetaminophen (TYLenol 325MG TAB) 650 mg Q4H PRN PO MILD PAIN (1-3) 02/10/25 05:00 02/14/25 10:05 DC Acetaminophen (TYLenol 325MG TAB) 650 mg Q4H PRN PO Temp >38.3C(AFTER EXTUBATION) 02/14/25 10:00 03/16/25 09:59 Acetaminophen (TYLenol 325MG TAB) 650 mg Q6H PRN PO TEMPERATURE GREATER THAN 101.5 02/10/25 05:00 02/14/25 10:17 DC 02/12/25 17:13 650 MG Acetaminophen (TYLenol 325MG TAB) 650 mg Q6H PRN PO MILD PAIN (1-3) 02/14/25 10:00 03/16/25 09:59 Acetaminophen (TYLenol 650MG SUPPOSITORY) 650 mg Q4H PRN RC Temp >38.3C WHILE INTUBATED 02/14/25 10:00 03/16/25 09:59 Acetaminophen (acetaMINOPHEN 1,000MG/100ML) 1,000 mg Q6H6 IV 02/14/25 14:00 02/15/25 13:59 DC 02/15/25 12:14 1,000 MG Albumin Human 50 ml @ 0 mls/hr Q12H9 IV 02/20/25 09:00 02/25/25 08:59 02/22/25 09:35 50 MLS/HR Albumin Human 250 ml @ 0 mls/hr AD IV 02/14/25 15:30 02/18/25 10:40 DC 02/18/25 10:27 250 MLS/HR Albumin Human 250 ml @ 0 mls/hr AD IV 02/18/25 10:30 02/20/25 09:03 DC Albumin Human 250 ml @ 0 mls/hr AD PRN IV IF HEMODYNAMICALLY UNSTABLE 02/14/25 10:00 02/14/25 14:42 DC 02/14/25 14:42 500 MLS/HR Aminocaproic Acid 56175 mg/Sodium Chloride 310 ml @ 25 mls/hr AD IV 02/14/25 10:00 02/14/25 10:19 DC Aminocaproic Acid 85832 mg/Sodium Chloride 480 ml @ 0 mls/hr AD PRN IV BLEEDING CONTROL 02/14/25 06:30 03/16/25 06:29 Aminocaproic Acid 15921 mg/Sodium Chloride 480 ml @ 0 mls/hr AD PRN IV BLEEDING CONTROL 02/14/25 07:00 02/14/25 06:51 DC Aspirin (Aspirin 325mg Tab) 325 mg ONCE PO 02/10/25 14:30 02/10/25 17:22 DC 02/10/25 14:32 325 MG Aspirin (Aspirin 81mg Ec Tab) 81 mg DAILY PO 02/10/25 09:00 03/12/25 08:59 02/22/25 09:38 81 MG Atorvastatin Calcium (LIPItor 40MG) 40 mg HS PO 02/14/25 21:00 03/16/25 20:59 02/21/25 21:03 40 MG Calcium Gluconate 1 gm/Sodium Chloride 60 ml @ 200 mls/hr AD PRN IV HYPOCALCEMIA 02/14/25 10:00 03/16/25 09:59 02/21/25 08:36 200 MLS/HR Carvedilol (Coreg 3.125MG) 3.125 mg BID PO 02/20/25 21:00 03/22/25 20:59 Cefazolin Sodium (Ancef) 2 gm ONCALL IVP 02/13/25 20:00 02/14/25 18:51 DC 02/14/25 08:50 2 GM Cefazolin Sodium (Ancef) 2 gm Q8H IVPB 02/14/25 15:00 02/15/25 07:01 DC 02/15/25 06:25 2 GM Cefepime HCl (MAXipime 1 GM vial) 1 gm Q12H IVPB 02/16/25 10:30 02/20/25 08:16 DC 02/19/25 22:54 1 GM Clopidogrel Bisulfate (plaVIX 300MG TAB) 600 mg ONCE PO 02/10/25 14:00 02/10/25 17:22 DC 02/10/25 14:19 600 MG Clopidogrel Bisulfate (plaVIX 75MG) 75 mg DAILY PO 02/11/25 09:00 02/11/25 07:28 DC Dexmedetomidine/ Sodium Chloride (PRECEdex 400MCG/ 100ML-NS) 400 mcg PROTOCOL IV 02/14/25 10:00 02/15/25 09:59 DC Dexmedetomidine/ Sodium Chloride (PRECEdex 400MCG/ 100ML-NS) 400 mcg PROTOCOL IV 02/20/25 07:30 03/22/25 07:29 02/22/25 05:51 400 MCG Dextrose (D50w) 50 ml AD PRN IV HYPOGLYCEMIA PROTOCOL 02/10/25 05:00 02/14/25 10:17 DC Dextrose (D50w) 50 ml AD PRN IV HYPOGLYCEMIA PROTOCOL 02/14/25 10:00 03/16/25 09:59 Docusate Sodium (COLace 100MG CAP) 100 mg BID PO 02/14/25 21:00 03/16/25 20:59 02/22/25 09:38 100 MG Empaglifozin (Jardiance 10mg) 10 mg DAILY PO 02/10/25 14:30 02/14/25 09:59 DC 02/13/25 10:52 10 MG Empaglifozin (Jardiance 10mg) 10 mg DAILY PO 02/20/25 09:00 03/22/25 08:59 02/22/25 09:38 10 MG Enoxaparin Sodium (Lovenox) 30 mg DAILY SQ 02/17/25 09:00 03/19/25 08:59 02/22/25 09:37 30 MG Epinephrine HCl 10 mg/Sodium Chloride 250 ml @ 0 mls/hr AD PRN IV TITRATE 02/14/25 06:30 03/16/25 06:29 02/20/25 17:32 2.9 MLS/HR Epinephrine HCl 10 mg/Sodium Chloride 250 ml @ 0 mls/hr AD PRN IV TITRATE 02/14/25 07:00 02/14/25 06:51 DC Epinephrine HCl 10 mg/Sodium Chloride 250 ml @ 0 mls/hr AD PRN IV POST-OP CARDIOVASCULAR ORDERS 02/14/25 10:00 02/14/25 10:14 DC Famotidine (Pepcid 20mg Vial) 20 mg BID IV 02/14/25 21:00 02/16/25 07:58 DC 02/15/25 20:15 20 MG Famotidine (Pepcid 20mg Tab) 20 mg BID PO 02/16/25 09:00 02/17/25 07:09 DC 02/16/25 20:03 20 MG Famotidine (Pepcid 20mg Tab) 20 mg DAILY PO 02/10/25 09:00 02/14/25 09:59 DC 02/13/25 10:53 20 MG Famotidine (Pepcid 20mg Tab) 20 mg DAILY PO 02/17/25 09:00 03/18/25 08:59 02/22/25 09:38 20 MG Furosemide (LASix 20MG TAB) 20 mg DAILY PO 02/11/25 09:00 02/14/25 09:59 DC 02/13/25 10:52 20 MG Furosemide (LASix 20MG TAB) 20 mg Q12H PO 02/16/25 09:00 02/16/25 10:21 DC 02/16/25 08:19 20 MG Furosemide (LASix 20MG VIAL) 20 mg ONCE IV 02/10/25 17:00 02/10/25 21:00 DC 02/10/25 17:00 20 MG Furosemide (LASix 20MG VIAL) 20 mg ONCE IV 02/11/25 09:00 02/11/25 07:43 DC Furosemide (LASix 20MG VIAL) 20 mg Q12H IV 02/15/25 09:00 02/16/25 08:59 DC 02/15/25 20:16 20 MG Furosemide (LASix 20MG VIAL) 20 mg Q12H IV 02/20/25 09:00 03/22/25 08:59 02/22/25 09:36 20 MG Furosemide 100 mg/ Sodium Chloride 100 ml @ 0 mls/hr PROTOCOL IV 02/16/25 10:30 02/20/25 09:01 DC 02/19/25 11:35 2.5 MLS/HR Glucagon (Glucagon 1mg Kit) 1 mg AD PRN IM HYPOGLYCEMIA PROTOCOL 02/10/25 05:00 02/14/25 10:17 DC Glucagon (Glucagon 1mg Kit) 1 mg AD PRN IM HYPOGLYCEMIA PROTOCOL 02/14/25 10:00 03/16/25 09:59 Heparin Sodium (Porcine) (HEParin 5,000 UNIT VIAL) *calculation based on ACTUAL B... AD PRN IV HEPARIN PROTOCOL 02/12/25 21:00 02/14/25 09:59 DC 02/12/25 20:16 4,000 UNIT Heparin Sodium/ Dextrose 250 ml @ 0 mls/hr PROTOCOL IV 02/10/25 03:00 02/10/25 17:22 DC 02/10/25 03:00 16.2 MLS/HR Heparin Sodium/ Dextrose 250 ml @ 0 mls/hr Q6H IV 02/11/25 06:30 02/14/25 09:59 DC 02/13/25 13:01 9 MLS/HR Home Med (Home Medication) (Brimonidine-Timolol 0.2%/0.5% EYE DROPS) DAILY OP 02/18/25 09:00 03/20/25 08:59 02/22/25 09:40 1 EACH Insulin Glargine (LANtus 100 UNITS/ML 10 ML VIAL) 10 units DAILY SQ 02/21/25 09:00 03/23/25 08:59 02/22/25 11:54 10 UNITS Insulin Glargine (LANtus 100 UNITS/ML 10 ML VIAL) 12 units DAILY08 SQ 02/13/25 08:00 02/14/25 09:59 DC 02/13/25 10:51 12 UNITS Insulin Glargine (LANtus 100 UNITS/ML 10 ML VIAL) 15 units DAILY08 02/11/25 08:00 02/13/25 05:24 DC 02/12/25 08:54 15 UNITS Insulin Human Regular (humuLIN R 100 UNIT/ML 3ML) 3 unit TIDAC SQ 02/12/25 07:30 02/14/25 09:59 DC 02/12/25 16:31 3 UNIT Insulin Human Regular (humuLIN R 100 UNIT/ML 3ML) INSULIN SLIDING SCAL... ACHS SQ 02/16/25 11:30 03/18/25 11:29 02/22/25 11:55 3 UNIT Insulin Human Regular (humuLIN R 100 UNIT/ML 3ML) INSULIN SLIDING SCAL... Q4H SQ 02/10/25 05:00 02/10/25 11:10 DC 02/10/25 09:15 6 UNIT Insulin Human Regular (humuLIN R 100 UNIT/ML 3ML) INSULIN SLIDING SCAL... Q6H6 SQ 02/10/25 12:00 02/14/25 09:59 DC 02/11/25 17:29 2 UNIT Insulin Human Regular 100 unit/ Sodium Chloride 100 ml @ 0 mls/hr AD IV 02/14/25 10:00 02/16/25 09:59 DC 02/15/25 06:30 3 MLS/HR Lactulose (Constulose 20gm/ 30ml Udcup) 20 gm BID PRN PO CONSTIPATION 02/14/25 10:00 03/16/25 09:59 Latanoprost (Xalatan) 1 DROP FOR EACH EYE HS OP 02/17/25 21:00 03/19/25 20:59 02/21/25 21:04 1 DROP Magnesium Hydroxide (Milk Of Magnesium 30ml) 30 ml DAILY PRN PO CONSTIPATION 02/14/25 10:00 03/16/25 09:59 Magnesium Sulfate 50 ml @ 12.5 mls/hr AD PRN IV MAG LEVEL LESS THAN 2.0 02/14/25 10:00 03/16/25 09:59 02/21/25 16:43 12.5 MLS/HR Magnesium Sulfate 50 ml @ 0 mls/hr PROTOCOL PRN IV OTHER [SEE ORDER COMMENTS] 02/10/25 05:00 02/14/25 10:17 DC 02/12/25 07:13 25 MLS/HR Metoprolol Tartrate (loprESSOR) 12.5 mg BID PO 02/12/25 09:00 02/14/25 09:59 DC 02/14/25 06:44 12.5 MG Metoprolol Tartrate (loprESSOR) 12.5 mg BID PO 02/16/25 09:00 02/20/25 09:01 DC Morphine Sulfate (morPHINE 2MG SYG) 0.5 mg Q2H PRN IV MODERATE PAIN (4-6) IF NPO 02/14/25 10:00 02/15/25 09:59 DC Morphine Sulfate (morPHINE 2MG SYG) 1 mg Q2H PRN IV SEVERE PAIN (7-10) IF NPO 02/14/25 10:30 02/19/25 13:29 DC 02/14/25 14:23 1 MG Nitroglycerin (Nitrostat) 0.4 mg PROTOCOL PRN SL CHEST PAIN 02/10/25 05:00 02/14/25 09:59 DC Nitroglycerin/ Dextrose 0 ml @ 0 mls/hr AD IV 02/14/25 10:00 02/17/25 09:59 DC Norepinephrine Bitartrate 250 ml @ 0 mls/hr AD PRN IV TITRATE 02/14/25 06:30 03/16/25 06:29 02/17/25 01:06 1.9 MLS/HR Norepinephrine Bitartrate 250 ml @ 0 mls/hr AD PRN IV TITRATE 02/14/25 07:00 02/14/25 06:51 DC Norepinephrine Bitartrate 8 mg/ Dextrose 250 ml @ 0 mls/hr AD PRN IV POST-OP CARDIOVASCULAR ORDERS 02/14/25 10:00 02/14/25 10:14 DC Ondansetron HCl (zoFRAN 4MG INJ) 4 mg Q6H PRN IV NAUSEA/VOMITING 02/10/25 05:00 02/14/25 10:17 DC Ondansetron HCl (zoFRAN 4MG INJ) 4 mg Q6H PRN IV NAUSEA/VOMITING 02/14/25 10:00 03/16/25 09:59 Pharmacy Profile Note (Pharmacy Communication) 1 each ONCE MISC 02/14/25 18:00 02/14/25 18:27 DC Pharmacy Profile Note (Pharmacy Communication) 1 each ONCE MISC 02/20/25 11:30 02/20/25 11:19 DC Piperacillin Sod/ Tazobactam Sod 50 ml @ 12.5 mls/hr Q8H IVPB 02/20/25 11:30 03/02/25 11:29 02/22/25 11:55 12.5 MLS/HR Potassium Phosphate 250 ml @ 42 mls/hr AD PRN IV LOW PHOS LEVEL 02/14/25 10:00 03/16/25 09:59 Potassium Chloride 100 ml @ 100 mls/hr AD PRN IV POTASSIUM PROTOCOL 02/10/25 05:00 02/15/25 06:27 DC 02/15/25 05:43 100 MLS/HR Potassium Chloride 100 ml @ 100 mls/hr AD PRN IV HYPOKALEMIA 02/14/25 10:00 03/16/25 09:59 02/21/25 16:43 100 MLS/HR Potassium Chloride (K-Dur/Klor-Con 20meq) 20 meq AD PRN PO POTASSIUM PROTOCOL 02/10/25 05:00 03/12/25 04:59 02/18/25 20:18 20 MEQ Potassium Chloride (K-Dur/Klor-Con 20meq) 20 meq BID PO 02/19/25 10:30 03/21/25 10:29 02/22/25 09:38 20 MEQ Potassium Chloride (KCl 10% Elixir 20meq/15ml) 20 meq AD PRN PO POTASSIUM PROTOCOL 02/10/25 05:00 03/12/25 04:59 02/22/25 06:27 20 MEQ Propofol 100 ml @ 0 mls/hr AD PRN IV SEDATION 02/14/25 10:00 02/18/25 09:59 DC Sacubitril/ Valsartan (Entresto 24 Mg-26 Mg Tablet) 0.5 each BID PO 02/10/25 21:00 02/14/25 09:59 DC 02/13/25 21:11 0.5 EACH Sodium Bicarbonate 25 meq/Dextrose 1,025 ml @ 0 mls/hr Q0M IV 02/14/25 18:00 03/16/25 17:59 02/18/25 13:03 9.9 MLS/HR Sodium Bicarbonate (Sodium Bicarb 50meq 50ml Vial) 50 meq AD PRN IV OTHER[SEE DOSING INSTRUCTIONS] 02/14/25 10:00 02/17/25 09:59 DC 02/16/25 15:25 50 MEQ Sodium Chloride 500 ml @ 0 mls/hr AD IV 02/14/25 10:00 03/16/25 09:59 Sodium Chloride 1,000 ml @ 10 mls/hr ONCE IV 02/14/25 10:00 02/15/25 09:59 DC Sodium Chloride 1,000 ml @ 100 mls/hr Q10H IV 02/10/25 05:00 02/10/25 17:22 DC 02/10/25 14:20 100 MLS/HR Sodium Chloride (NS Flush 10ml) 10 ml Q8H PRN IVP IV LINE FLUSH 02/14/25 10:00 03/16/25 09:59 Spironolactone (Aldactone 25mg) 25 mg DAILY PO 02/10/25 14:30 02/14/25 09:59 DC 02/13/25 10:52 25 MG Spironolactone (Aldactone 25mg) 25 mg DAILY PO 02/20/25 09:00 03/22/25 08:59 02/22/25 09:39 25 MG Tramadol HCl (UltRAM) 25 mg Q6H PRN PO MODERATE PAIN (4-6) 02/14/25 10:00 02/19/25 09:59 DC Tramadol HCl (UltRAM) 50 mg Q6H PRN PO SEVERE PAIN (7-10) 02/14/25 10:00 02/19/25 09:59 DC Vancomycin HCl 250 ml @ 125 mls/hr Q12H IV 02/18/25 11:30 02/21/25 05:33 DC 02/19/25 11:20 125 MLS/HR Vancomycin HCl 250 ml @ 125 mls/hr Q24H IV 02/21/25 06:00 02/28/25 11:29 02/22/25 06:27 125 MLS/HR Vancomycin HCl (Vancomycin Protocol) 1 each AD IV 02/18/25 11:00 03/04/25 10:59 Vasopressin 40 units/Sodium Chloride 40 ml @ 0 mls/hr PROTOCOL IV 02/14/25 13:00 03/16/25 12:59 02/14/25 22:11 1.8 MLS/HR DIAGNOSTICS / RADIOLOGY: [place] [address] IMAGING REPORT Signed PATIENT: EMMY GRACE MR#: [id number] : 1950 SEX: M AGE: 74 LOCATION: 2BH ORDER 28 STATUS: ADM IN REPORT#: [id number] SERVICE 27 REASON: s/p PICC LINE PLACEMENT ORDERING PHYSICIAN: ART FRIED MD PROCEDURE: CXR1VW - CHEST 1VW CHEST 1VW REASON: s/p PICC LINE PLACEMENT COMPARISON: Prior study from 02/21/2025 is available. FINDINGS: Single view of the chest was obtained. There is mild cardiomegaly with median sternotomy with cardiac and aspiration procedure. There is a moderate left-sided pleural effusion with hazy appearance of the left lung. The right lung appears to be clear. There is a vascular sheath seen in the right internal jugular vein. There is a left-sided PICC catheter with tip in superior vena cava.. Mediastinum and bony thorax appear unremarkable. IMPRESSION: 1. Support lines including right internal jugular vascular sheath and left-sided PICC catheter to be in satisfactory position 2. Cardiomegaly with median sternotomy with cardiac revascularization procedure 3. There is suggestion of a moderate left-sided pleural effusion. This is amenable for thoracentesis. DICTATED BY: MARIBELL MILLS MD DATE: 02/22/251243 ELECTRONICALLY SIGNED BY: MARIBELL MILLS MD DATE: 02/22/251247 ASSESSMENT: Chest pain rule out ACS: NSTEMI POA Suspected pneumonia findings on Chest X-ray Possible metabolic encephalopathy Hyperglycemia secondary to uncontrolled diabetes POA Hyperlipidemia POA Medication noncompliance, POA Obesity POA IA/Coronary artery disease with cardiac stent POA PLAN: NSTEMI POA: * EKG was done which revealed sinus rhythm heart rate 85 with atrial premature complex anterolateral infarct age indeterminate. Second EKG result revealed sinus rhythm heart rate 73 with left anterior fascicular block. Probable anterolateral infarct age indeterminate. Abnormal T consider ischemia lateral leads. * PERC score was one, Wells score was zero. Very low suspicion for Pulmonary Embolism. * Chest x-ray done on 02/17/25 show, small stable left pleural effusion with adjacent lung atelectasis. follow up x-ray from 02/19/25 show no interval change. * 2-D ECHO on 02/19/25 show LVEF of 25-30% with segmental akinesis (apical, apical lateral, anteroapical), LDL 89, BNP 488 * Troponin trends 21>174>[id number]>[id number]>7546 * Left heart catheterization revealed severe three-vessel CAD with occluded mid LAD, 90% proximal left circumflex, 95% distal RCA, and 90% ostial PDA. * As per CT surgeon recommendations Entresto 0.5 each, Jardiance 10mg were held. 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 * On aspirin 81 mg p.o. * Patient started on lasix 20mg IV, Aldactone 25mg. His total output in the past 24 hours has been 3650 versus 1775. * Continuing on Epinephrine drip. * Impella scheduled for removal on (02/21/25). Suspected pneumonia findings on Chest X-ray * Chest x-ray done on 02/16/25 show diffuse airspace disease of the left lung, predominantly involving the left lower zone, could be due to an infection or atelectasis. Questionable left pleural effusion. * Chest x-ray done on 02/17/25 show, small stable left pleural effusion with adjacent lung atelectasis. follow up x-ray from 02/19/25 show no interval change. * Patient started on Zosyn from 02/20/25 * WBC count on (02/22/25) - 14.0 * Will monitor with daily labs. Possible metabolic encephalopathy * Chest x-ray done on 02/17/25 show, small stable left pleural effusion with adjacent lung atelectasis. * Patient was started on Vancomycin and cefepime due to elevated WBC levels and findings suggestive of pneumonia on chest x-ray * Cefepime was discontinued on 02/20/25 because the patient was confused, agita martin and combative suspecting the cause of his confusion and was started on Zosyn. * Will monitor with daily labs Hyperglycemia secondary to uncontrolled diabetes POA: * HbA1c 13.9, blood glucose 181 * Following the Endocrinology recommendations. He is on Lantus 15 units, low- dose sliding scale insulin and Jardiance 10 mg * We will monitor blood glucose. Hypokalemia Hypomagnesemia * Potassium 3.8, magnesium 2.0 (02/22/25) * We will replete the electrolytes and monitor. * Keep potassium above 4 and magnesium above 2. * We will start Slow-Mag oral t.i.d. once and will keep monitoring magnesium levels. Supportive measures * GI prophylaxis with Famotidine * DVT prophylaxis with SCD's ATTESTATION BY PHYSICIAN I have seen and examined the patient. I reviewed the documentation, medical decision making, and treatment plan as noted by the resident physician above. I agree with the findings and plan of care. DIANNE STEELE MD, SHAJI MD Feb 22, 2025 14:54
--- NOTE | 2025-02-22 19:16 | PN ---
Endocrinology progress note DOS: 02/22/25 subjective: glucose are improving and s/p CABG procedure Home diabetic regimen: metformin 500 mg bid, Hba1c 13.9% PAST MEDICAL HISTORY: [ Diabetes, hyperlipidemia, VA/coronary artery disease ] PAST SURGICAL HISTORY: [ Cardiac stent, cholecystectomy and left inguinal hernia repair ] PAST SOCIAL HISTORY: [ Patient lives with . Patient admits he drinks two beer yesterday. Patient reports he occasional drinks alcohol denies cigarette and recreational drug use. ] FAMILY HISTORY: [ Diabetes, cardiovascular disease, asthma and cancer ] Coded Allergies: No Known Drug Allergies (Unverified Allergy, Unknown, 08/31/15) ASSESSMENT: Hyperglycemia secondary to uncontrolled diabetes POA Home diabetic regimen: metformin 500 mg bid, Hba1c 13.9% glucose is improving. NSTEMI POA s/p CABG triple vessel disease s/p CABG Hyperlipidemia POA Obesity POA VA/Coronary artery disease with cardiac stent POA PLAN: OFF insulin drip increase lantus to 12 units daily. off regular insulin. Continue low dose sliding scale insulin. Monitor glucose q x 6 hourly. Keep glucose less than 180 mg/dl. Patient will need insulin at discharge Vitals/Labs Vital Signs Date Time Temp Pulse Resp B/P (MAP) Pulse Ox O2 Delivery O2 Flow Rate FiO2 02/22/25 18:30 80 48 115/44 (67) 100 28 02/22/25 12:00 Nasal Cannula* 2 02/22/25 04:32 97.9 Laboratory Tests 02/22/25 04:11 Medications Current Medications Sodium Chloride 1,000 ml @ 0 mls/hr ONCE ONCE IV; Start 02/10/25 at 01:00; Stop 02/10/25 at 00:46; Status DC Sodium Chloride 500 ml @ 0 mls/hr ONCE ONCE IV Last administered on 02/10/25at 00:53; Start 02/10/25 at 01:00; Stop 02/10/25 at 01:01; Status DC Insulin Human Regular 5 unit ONCE ONCE IV Last administered on 02/10/25at 01:30; Start 02/10/25 at 01:30; Stop 02/10/25 at 01:31; Status DC Aspirin 325 mg ONCE ONCE PO Last administered on 02/10/25at 02:32; Start 02/10/25 at 02:30; Stop 02/10/25 at 02:31; Status DC Heparin Sodium/ Dextrose 250 ml @ 0 mls/hr PROTOCOL IV Last administered on 02/10/25at 03:00; Start 02/10/25 at 03:00; Stop 02/10/25 at 17:22; Status DC Heparin Sodium (Porcine) 7,000 unit ONCE ONCE SQ Last administered on 02/10/25at 02:55; Start 02/10/25 at 03:00; Stop 02/10/25 at 03:01; Status DC Acetaminophen 650 mg Q6H PRN PO Last administered on 02/12/25at 17:13; Start 02/10/25 at 05:00; Stop 02/14/25 at 10:17; Status DC Acetaminophen 650 mg Q4H PRN PO; Start 02/10/25 at 05:00; Stop 02/14/25 at 10:05; Status DC Ondansetron HCl 4 mg Q6H PRN IV; Start 02/10/25 at 05:00; Stop 02/14/25 at 10:17; Status DC Nitroglycerin 0.4 mg PROTOCOL PRN SL; Start 02/10/25 at 05:00; Stop 02/14/25 at 09:59; Status DC Famotidine 20 mg DAILY PO Last administered on 02/13/25at 10:53; Start 02/10/25 at 09:00; Stop 02/14/25 at 09:59; Status DC Sodium Chloride 1,000 ml @ 100 mls/hr Q10H IV Last administered on 02/10/25at 14:20; Start 02/10/25 at 05:00; Stop 02/10/25 at 17:22; Status DC Insulin Human Regular INSULIN SLIDING SCAL... Q4H SQ Last administered on 02/10/25at 09:15; Start 02/10/25 at 05:00; Stop 02/10/25 at 11:10; Status DC Dextrose 50 ml AD PRN IV; Start 02/10/25 at 05:00; Stop 02/14/25 at 10:17; Status DC Glucagon 1 mg AD PRN IM; Start 02/10/25 at 05:00; Stop 02/14/25 at 10:17; Status DC Magnesium Sulfate 50 ml @ 0 mls/hr PROTOCOL PRN IV Last administered on 02/12/25at 07:13; Start 02/10/25 at 05:00; Stop 02/14/25 at 10:17; Status DC Potassium Chloride 100 ml @ 100 mls/hr AD PRN IV Last administered on 02/15/25at 05:43; Start 02/10/25 at 05:00; Stop 02/15/25 at 06:27; Status DC Potassium Chloride 20 meq AD PRN PO Last administered on 02/22/25at 06:27; Start 02/10/25 at 05:00; Stop 03/12/25 at 04:59 Potassium Chloride 20 meq AD PRN PO Last administered on 02/18/25at 20:18; Start 02/10/25 at 05:00; Stop 03/12/25 at 04:59 Aspirin 81 mg DAILY PO Last administered on 02/22/25at 09:38; Start 02/10/25 at 09:00; Stop 03/12/25 at 08:59 Insulin Human Regular INSULIN SLIDING SCAL... Q6H6 SQ Last administered on 02/11/25at 17:29; Start 02/10/25 at 12:00; Stop 02/14/25 at 09:59; Status DC Clopidogrel Bisulfate 600 mg ONCE PO Last administered on 02/10/25at 14:19; Start 02/10/25 at 14:00; Stop 02/10/25 at 17:22; Status DC Aspirin 325 mg ONCE PO Last administered on 02/10/25at 14:32; Start 02/10/25 at 14:30; Stop 02/10/25 at 17:22; Status DC Sacubitril/ Valsartan 0.5 each BID PO Last administered on 02/13/25at 21:11; Start 02/10/25 at 21:00; Stop 02/14/25 at 09:59; Status DC Empaglifozin 10 mg DAILY PO Last administered on 02/13/25at 10:52; Start 02/10/25 at 14:30; Stop 02/14/25 at 09:59; Status DC Spironolactone 25 mg DAILY PO Last administered on 02/13/25at 10:52; Start 02/10/25 at 14:30; Stop 02/14/25 at 09:59; Status DC Furosemide 20 mg ONCE IV Last administered on 02/10/25at 17:00; Start 02/10/25 at 17:00; Stop 02/10/25 at 21:00; Status DC Furosemide 20 mg ONCE IV; Start 02/11/25 at 09:00; Stop 02/11/25 at 07:43; Status DC Lidocaine HCl 20 ml STK-MED ONCE .ROUTE; Start 02/10/25 at 15:22; Stop 02/10/25 at 15:23; Status DC Iohexol 35,000 mg STK-MED ONCE IV; Start 02/10/25 at 15:22; Stop 02/10/25 at 15:23; Status DC Iohexol 50 ml STK-MED ONCE IV; Start 02/10/25 at 15:22; Stop 02/10/25 at 15:23; Status DC Heparin Sodium (Porcine) 10,000 unit STK-MED ONCE .ROUTE; Start 02/10/25 at 15:23; Stop 02/10/25 at 15:23; Status DC Heparin Sodium/ Sodium Chloride 1,000 ml @ As Directed STK-MED ONCE IV; Start 02/10/25 at 15:23; Stop 02/10/25 at 15:23; Status DC Nitroglycerin 50 mg STK-MED ONCE .ROUTE; Start 02/10/25 at 15:23; Stop 02/10/25 at 15:23; Status DC Heparin Sodium/ Sodium Chloride 500 ml @ As Directed STK-MED ONCE IV; Start 02/10/25 at 15:35; Stop 02/10/25 at 15:35; Status DC Fentanyl Citrate 100 mcg STK-MED ONCE .ROUTE; Start 02/10/25 at 15:39; Stop 02/10/25 at 15:40; Status DC Midazolam HCl 2 mg STK-MED ONCE .ROUTE; Start 02/10/25 at 15:40; Stop 02/10/25 at 15:40; Status DC Bivalirudin 250 mg STK-MED ONCE IV; Start 02/10/25 at 16:15; Stop 02/10/25 at 16:15; Status DC Heparin Sodium (Porcine) 7,000 unit ONCE ONCE IV Last administered on 02/11/25at 05:46; Start 02/11/25 at 05:30; Stop 02/11/25 at 05:31; Status DC Heparin Sodium/ Dextrose 250 ml @ 0 mls/hr Q6H IV Last administered on 02/13/25at 13:01; Start 02/11/25 at 06:30; Stop 02/14/25 at 09:59; Status DC Clopidogrel Bisulfate 75 mg DAILY PO; Start 02/11/25 at 09:00; Stop 02/11/25 at 07:28; Status DC Insulin Glargine 15 units DAILY08 SQ Last administered on 02/12/25at 08:54; Start 02/11/25 at 08:00; Stop 02/13/25 at 05:24; Status DC Furosemide 20 mg DAILY PO Last administered on 02/13/25at 10:52; Start 02/11/25 at 09:00; Stop 02/14/25 at 09:59; Status DC Insulin Human Regular 3 unit TIDAC SQ Last administered on 02/12/25at 16:31; Start 02/12/25 at 07:30; Stop 02/14/25 at 09:59; Status DC Metoprolol Tartrate 12.5 mg BID PO Last administered on 02/14/25at 06:44; Start 02/12/25 at 09:00; Stop 02/14/25 at 09:59; Status DC Potassium Chloride 40 meq BID ONCE PO; Start 02/12/25 at 21:00; Stop 02/12/25 at 21:01; Status DC Magnesium Chloride 64 mg Q8H6 ONCE PO; Start 02/12/25 at 14:00; Stop 02/12/25 at 14:01; Status DC Heparin Sodium (Porcine) *calculation based on ACTUAL B... AD PRN IV Last administered on 02/12/25at 20:16; Start 02/12/25 at 21:00; Stop 02/14/25 at 09:59; Status DC Insulin Glargine 12 units DAILY08 SQ Last administered on 02/13/25at 10:51; Start 02/13/25 at 08:00; Stop 02/14/25 at 09:59; Status DC Cefazolin Sodium 2 gm ONCALL IVP Last administered on 02/14/25at 08:50; Start 02/13/25 at 20:00; Stop 02/14/25 at 18:51; Status DC Epinephrine HCl 10 mg/Sodium Chloride 250 ml @ 0 mls/hr AD PRN IV Last administered on 02/20/25at 17:32; Start 02/14/25 at 06:30; Stop 03/16/25 at 06:29 Norepinephrine Bitartrate 250 ml @ 0 mls/hr AD PRN IV Last administered on 02/17/25at 01:06; Start 02/14/25 at 06:30; Stop 03/16/25 at 06:29 Aminocaproic Acid 99111 mg/Sodium Chloride 480 ml @ 0 mls/hr AD PRN IV; Start 02/14/25 at 06:30; Stop 03/16/25 at 06:29 Epinephrine HCl 10 mg/Sodium Chloride 250 ml @ 0 mls/hr AD PRN IV; Start 02/14/25 at 07:00; Stop 02/14/25 at 06:51; Status DC Norepinephrine Bitartrate 250 ml @ 0 mls/hr AD PRN IV; Start 02/14/25 at 07:00; Stop 02/14/25 at 06:51; Status DC Aminocaproic Acid 93634 mg/Sodium Chloride 480 ml @ 0 mls/hr AD PRN IV; Start 02/14/25 at 07:00; Stop 02/14/25 at 06:51; Status DC Cefazolin Sodium 2 gm STK-MED ONCE .ROUTE; Start 02/14/25 at 06:53; Stop 02/14/25 at 06:53; Status DC Nitroglycerin/ Dextrose 1 ml @ As Directed STK-MED ONCE .ROUTE; Start 02/14/25 at 07:00; Stop 02/14/25 at 07:00; Status DC Cefazolin Sodium 1 gm STK-MED ONCE .ROUTE Last administered on 02/14/25at 10:09; Start 02/14/25 at 07:37; Stop 02/14/25 at 07:38; Status DC Heparin Sodium/ Sodium Chloride 500 ml @ As Directed STK-MED ONCE IV; Start 02/14/25 at 07:38; Stop 02/14/25 at 07:38; Status DC Papaverine HCl 60 mg STK-MED ONCE .ROUTE Last administered on 02/14/25at 10:10; Start 02/14/25 at 07:38; Stop 02/14/25 at 07:38; Status DC Midazolam HCl 2 mg STK-MED ONCE .ROUTE; Start 02/14/25 at 08:14; Stop 02/14/25 at 08:14; Status DC Ketamine HCl 500 mg STK-MED ONCE IJ; Start 02/14/25 at 08:16; Stop 02/14/25 at 08:16; Status DC Protamine Sulfate 250 mg STK-MED ONCE IV; Start 02/14/25 at 08:17; Stop 02/14/25 at 08:17; Status DC Lidocaine HCl 100 mg STK-MED ONCE .ROUTE; Start 02/14/25 at 08:17; Stop 02/14/25 at 08:17; Status DC Heparin Sodium (Porcine) 10,000 unit STK-MED ONCE .ROUTE; Start 02/14/25 at 08:17; Stop 02/14/25 at 08:17; Status DC Epinephrine HCl 1 mg STK-MED ONCE .ROUTE; Start 02/14/25 at 08:17; Stop 02/14/25 at 08:17; Status DC Sodium Bicarbonate 200 ml @ As Directed STK-MED ONCE .ROUTE; Start 02/14/25 at 08:17; Stop 02/14/25 at 08:17; Status DC Norepinephrine Bitartrate 4 mg STK-MED ONCE IV; Start 02/14/25 at 08:17; Stop 02/14/25 at 08:17; Status DC Propofol 200 mg STK-MED ONCE IV; Start 02/14/25 at 08:19; Stop 02/14/25 at 08:19; Status DC Fentanyl Citrate 1,000 mcg STK-MED ONCE IJ; Start 02/14/25 at 08:19; Stop 02/14/25 at 08:19; Status DC Midazolam HCl 2 mg STK-MED ONCE .ROUTE; Start 02/14/25 at 08:20; Stop 02/14/25 at 08:20; Status DC Rocuronium [place] 50 mg STK-MED ONCE .ROUTE; Start 02/14/25 at 08:20; Stop 02/14/25 at 08:20; Status DC Acetaminophen 1,000 mg Q6H6 IV Last administered on 02/15/25at 12:14; Start 02/14/25 at 14:00; Stop 02/15/25 at 13:59; Status DC Aspirin 81 mg ONCE ONCE NG Last administered on 02/14/25at 13:56; Start 02/14/25 at 14:00; Stop 02/14/25 at 14:01; Status DC Docusate Sodium 100 mg BID PO Last administered on 02/22/25at 09:38; Start 02/14/25 at 21:00; Stop 03/16/25 at 20:59 Lactulose 20 gm BID PRN PO; Start 02/14/25 at 10:00; Stop 03/16/25 at 09:59 Furosemide 20 mg Q12H PO Last administered on 02/16/25at 08:19; Start 02/16/25 at 09:00; Stop 02/16/25 at 10:21; Status DC Furosemide 20 mg Q12H IV Last administered on 02/15/25at 20:16; Start 02/15/25 at 09:00; Stop 02/16/25 at 08:59; Status DC Atorvastatin Calcium 40 mg HS PO Last administered on 02/21/25at 21:03; Start 02/14/25 at 21:00; Stop 03/16/25 at 20:59 Enoxaparin Sodium 30 mg DAILY SQ Last administered on 02/22/25at 09:37; Start 02/17/25 at 09:00; Stop 03/19/25 at 08:59 Metoprolol Tartrate 12.5 mg BID PO; Start 02/16/25 at 09:00; Stop 02/20/25 at 09:01; Status DC Magnesium Hydroxide 30 ml DAILY PRN PO; Start 02/14/25 at 10:00; Stop 03/16/25 at 09:59 Dexmedetomidine/ Sodium Chloride 400 mcg PROTOCOL IV; Start 02/14/25 at 10:00; Stop 02/15/25 at 09:59; Status DC Acetaminophen 650 mg Q6H PRN PO; Start 02/14/25 at 10:00; Stop 03/16/25 at 09:59 Heparin Sodium (Porcine) 10,000 unit STK-MED ONCE .ROUTE; Start 02/14/25 at 10:00; Stop 02/14/25 at 10:00; Status DC Sodium Chloride 1,000 ml @ 10 mls/hr ONCE IV; Start 02/14/25 at 10:00; Stop 02/15/25 at 09:59; Status DC Sodium Chloride 10 ml Q8H PRN IVP; Start 02/14/25 at 10:00; Stop 03/16/25 at 09:59 Morphine Sulfate 0.5 mg Q2H PRN IV; Start 02/14/25 at 10:00; Stop 02/15/25 at 09:59; Status DC Morphine Sulfate 1 mg Q2H PRN IV Last administered on 02/14/25at 14:23; Start 02/14/25 at 10:30; Stop 02/19/25 at 13:29; Status DC Acetaminophen 650 mg Q4H PRN RC; Start 02/14/25 at 10:00; Stop 03/16/25 at 09:59 Ondansetron HCl 4 mg Q6H PRN IV; Start 02/14/25 at 10:00; Stop 03/16/25 at 09:59 Sodium Chloride 500 ml @ 0 mls/hr AD IV; Start 02/14/25 at 10:00; Stop 03/16/25 at 09:59 Nitroglycerin/ Dextrose 0 ml @ 0 mls/hr AD IV; Start 02/14/25 at 10:00; Stop 02/17/25 at 09:59; Status DC Propofol 100 ml @ 0 mls/hr AD PRN IV; Start 02/14/25 at 10:00; Stop 02/18/25 at 09:59; Status DC Norepinephrine Bitartrate 8 mg/ Dextrose 250 ml @ 0 mls/hr AD PRN IV; Start 02/14/25 at 10:00; Stop 02/14/25 at 10:14; Status DC Epinephrine HCl 10 mg/Sodium Chloride 250 ml @ 0 mls/hr AD PRN IV; Start 02/14/25 at 10:00; Stop 02/14/25 at 10:14; Status DC Aminocaproic Acid 59169 mg/Sodium Chloride 310 ml @ 25 mls/hr AD IV; Start 02/14/25 at 10:00; Stop 02/14/25 at 10:19; Status DC Calcium Gluconate 1 gm/Sodium Chloride 60 ml @ 200 mls/hr AD PRN IV Last administered on 02/21/25at 08:36; Start 02/14/25 at 10:00; Stop 03/16/25 at 09:59 Magnesium Sulfate 50 ml @ 12.5 mls/hr AD PRN IV Last administered on 02/21/25at 16:43; Start 02/14/25 at 10:00; Stop 03/16/25 at 09:59 Potassium Chloride 100 ml @ 100 mls/hr AD PRN IV Last administered on 02/21/25at 16:43; Start 02/14/25 at 10:00; Stop 03/16/25 at 09:59 Potassium Phosphate 250 ml @ 42 mls/hr AD PRN IV; Start 02/14/25 at 10:00; Stop 03/16/25 at 09:59 Albumin Human 250 ml @ 0 mls/hr AD PRN IV Last administered on 02/14/25at 14:42; Start 02/14/25 at 10:00; Stop 02/14/25 at 14:42; Status DC Acetaminophen 650 mg Q4H PRN PO; Start 02/14/25 at 10:00; Stop 03/16/25 at 09:59 Insulin Human Regular 100 unit/ Sodium Chloride 100 ml @ 0 mls/hr AD IV Last administered on 02/15/25at 06:30; Start 02/14/25 at 10:00; Stop 02/16/25 at 09:59; Status DC Cefazolin Sodium 2 gm Q8H IVPB Last administered on 02/15/25at 06:25; Start 02/14/25 at 15:00; Stop 02/15/25 at 07:01; Status DC Tramadol HCl 25 mg Q6H PRN PO; Start 02/14/25 at 10:00; Stop 02/19/25 at 09:59; Status DC Tramadol HCl 50 mg Q6H PRN PO; Start 02/14/25 at 10:00; Stop 02/19/25 at 09:59; Status DC Famotidine 20 mg BID IV Last administered on 02/15/25at 20:15; Start 02/14/25 at 21:00; Stop 02/16/25 at 07:58; Status DC Sodium Bicarbonate 50 meq AD PRN IV Last administered on 02/16/25at 15:25; Start 02/14/25 at 10:00; Stop 02/17/25 at 09:59; Status DC Dextrose 50 ml AD PRN IV; Start 02/14/25 at 10:00; Stop 03/16/25 at 09:59 Glucagon 1 mg AD PRN IM; Start 02/14/25 at 10:00; Stop 03/16/25 at 09:59 Dobutamine HCl 250 mg STK-MED ONCE .ROUTE; Start 02/14/25 at 10:28; Stop 02/14/25 at 10:28; Status DC Sodium Bicarbonate 50 ml @ As Directed STK-MED ONCE .ROUTE; Start 02/14/25 at 10:52; Stop 02/14/25 at 10:52; Status DC Sodium Bicarbonate 200 ml @ As Directed STK-MED ONCE .ROUTE; Start 02/14/25 at 10:53; Stop 02/14/25 at 10:53; Status DC Vasopressin 20 units STK-MED ONCE .ROUTE; Start 02/14/25 at 11:51; Stop 02/14/25 at 11:51; Status DC Rocuronium [place] 50 mg STK-MED ONCE .ROUTE; Start 02/14/25 at 12:14; Stop 02/14/25 at 12:14; Status DC Sodium Bicarbonate 100 ml @ As Directed STK-MED ONCE .ROUTE; Start 02/14/25 at 12:16; Stop 02/14/25 at 12:16; Status DC Vasopressin 40 units/Sodium Chloride 40 ml @ 0 mls/hr PROTOCOL IV Last administered on 02/14/25at 22:11; Start 02/14/25 at 13:00; Stop 03/16/25 at 12:59 Albumin Human 250 ml @ 0 mls/hr AD IV Last administered on 02/18/25at 10:27; Start 02/14/25 at 15:30; Stop 02/18/25 at 10:40; Status DC Calcium Gluconate 2 gm/Sodium Chloride 100 ml @ 0 mls/hr ONCE ONCE IV Last administered on 02/14/25at 16:15; Start 02/14/25 at 16:30; Stop 02/14/25 at 16:31; Status DC Pharmacy Profile Note 1 each ONCE MISC; Start 02/14/25 at 18:00; Stop 02/14/25 at 18:27; Status DC Sodium Bicarbonate 25 meq/Dextrose 1,025 ml @ 0 mls/hr Q0M IV Last administered on 02/18/25at 13:03; Start 02/14/25 at 18:00; Stop 03/16/25 at 17:59 Famotidine 20 mg BID PO Last administered on 02/16/25at 20:03; Start 02/16/25 at 09:00; Stop 02/17/25 at 07:09; Status DC Insulin Human Regular INSULIN SLIDING SCAL... ACHS SQ Last administered on 02/22/25at 11:55; Start 02/16/25 at 11:30; Stop 03/18/25 at 11:29 Cefepime HCl 1 gm Q12H IVPB Last administered on 02/19/25at 22:54; Start 02/16/25 at 10:30; Stop 02/20/25 at 08:16; Status DC Furosemide 100 mg/ Sodium Chloride 100 ml @ 0 mls/hr PROTOCOL IV Last administered on 02/19/25at 11:35; Start 02/16/25 at 10:30; Stop 02/20/25 at 09:01; Status DC Vancomycin HCl 500 ml @ 250 mls/hr ONCE ONCE IV Last administered on 02/16/25at 11:39; Start 02/16/25 at 12:00; Stop 02/16/25 at 13:59; Status DC Sodium Chloride 4 ml STK-MED ONCE IH Last administered on 02/16/25at 10:53; Start 02/16/25 at 10:44; Stop 02/16/25 at 10:44; Status DC Sodium Chloride 4 ml STK-MED ONCE IH Last administered on 02/16/25at 14:33; Start 02/16/25 at 14:26; Stop 02/16/25 at 14:26; Status DC Sodium Chloride 4 ml STK-MED ONCE IH Last administered on 02/16/25at 19:16; Start 02/16/25 at 18:32; Stop 02/16/25 at 18:32; Status DC Famotidine 20 mg DAILY PO Last administered on 02/22/25at 09:38; Start 02/17/25 at 09:00; Stop 03/18/25 at 08:59 Latanoprost 1 DROP FOR EACH EYE HS OP Last administered on 02/21/25at 21:04; Start 02/17/25 at 21:00; Stop 03/19/25 at 20:59 Home Med (Brimonidine-Timolol 0.2%/0.5% EYE DROPS) DAILY OP Last administered on 02/22/25at 09:40; Start 02/18/25 at 09:00; Stop 03/20/25 at 08:59 Albumin Human 250 ml @ 0 mls/hr AD IV; Start 02/18/25 at 10:30; Stop 02/20/25 at 09:03; Status DC Vancomycin HCl 1 each AD IV; Start 02/18/25 at 11:00; Stop 03/04/25 at 10:59 Vancomycin HCl 250 ml @ 125 mls/hr Q12H IV Last administered on 02/19/25at 11:20; Start 02/18/25 at 11:30; Stop 02/21/25 at 05:33; Status DC Potassium Chloride 20 meq BID PO Last administered on 02/22/25at 09:38; Start 02/19/25 at 10:30; Stop 03/21/25 at 10:29 Dexmedetomidine/ Sodium Chloride 400 mcg STK-MED ONCE IV Last administered on 02/20/25at 07:08; Start 02/20/25 at 07:00; Stop 02/20/25 at 07:00; Status DC Dexmedetomidine/ Sodium Chloride 400 mcg PROTOCOL IV Last administered on 02/22/25at 05:51; Start 02/20/25 at 07:30; Stop 02/22/25 at 15:01; Status DC Carvedilol 3.125 mg BID PO; Start 02/20/25 at 21:00; Stop 03/22/25 at 20:59 Spironolactone 25 mg DAILY PO Last administered on 02/22/25at 09:39; Start 02/20/25 at 09:00; Stop 03/22/25 at 08:59 Empaglifozin 10 mg DAILY PO Last administered on 02/22/25at 09:38; Start 02/20/25 at 09:00; Stop 02/22/25 at 15:01; Status DC Albumin Human 50 ml @ 0 mls/hr Q12H9 IV Last administered on 02/22/25at 09:35; Start 02/20/25 at 09:00; Stop 02/25/25 at 08:59 Furosemide 20 mg Q12H IV Last administered on 02/22/25at 09:36; Start 02/20/25 at 09:00; Stop 03/22/25 at 08:59 Pharmacy Profile Note 1 each ONCE MISC; Start 02/20/25 at 11:30; Stop 02/20/25 at 11:19; Status DC Piperacillin Sod/ Tazobactam Sod 50 ml @ 12.5 mls/hr Q8H IVPB Last administered on 02/22/25at 11:55; Start 02/20/25 at 11:30; Stop 03/02/25 at 11:29 Vancomycin HCl 250 ml @ 125 mls/hr Q24H IV Last administered on 02/22/25at 06:27; Start 02/21/25 at 06:00; Stop 02/28/25 at 11:29 Insulin Glargine 10 units DAILY SQ Last administered on 02/22/25at 11:54; Start 02/21/25 at 09:00; Stop 03/23/25 at 08:59 Calcium Gluconate 1 gm STK-MED ONCE .ROUTE; Start 02/21/25 at 08:34; Stop 02/21/25 at 08:34; Status DC Etomidate 20 mg STK-MED ONCE .ROUTE; Start 02/21/25 at 12:27; Stop 02/21/25 at 12:28; Status DC Fentanyl Citrate 100 mcg STK-MED ONCE .ROUTE; Start 02/21/25 at 12:30; Stop 02/21/25 at 12:30; Status DC Rocuronium [place] 50 mg STK-MED ONCE .ROUTE; Start 02/21/25 at 12:30; Stop 02/21/25 at 12:30; Status DC Lidocaine HCl 20 ml STK-MED ONCE .ROUTE; Start 02/21/25 at 12:31; Stop 02/21/25 at 12:31; Status DC Cefazolin Sodium 1 gm STK-MED ONCE .ROUTE; Start 02/21/25 at 12:31; Stop 02/21/25 at 12:32; Status DC Bupivacaine HCl 2.5 mg STK-MED ONCE IJ; Start 02/21/25 at 12:32; Stop 02/21/25 at 12:32; Status DC Propofol 200 mg STK-MED ONCE IV; Start 02/21/25 at 12:35; Stop 02/21/25 at 12:35; Status DC Lidocaine HCl 100 mg STK-MED ONCE .ROUTE; Start 02/21/25 at 12:46; Stop 02/21/25 at 12:46; Status DC Cefazolin Sodium 1 gm STK-MED ONCE .ROUTE; Start 02/21/25 at 12:51; Stop 02/21/25 at 12:51; Status DC Rocuronium [place] 50 mg STK-MED ONCE .ROUTE; Start 02/21/25 at 13:03; Stop 11/25/25 at 13:03; Status DC Cefazolin Sodium 2 gm STK-MED ONCE IVPB Last administered on 02/21/25at 12:53; Start 02/21/25 at 12:53; Stop 02/21/25 at 14:14; Status DC Lidocaine HCl 20 ml STK-MED ONCE INJ Last administered on 02/21/25at 12:18; Start 02/21/25 at 12:18; Stop 02/21/25 at 14:14; Status DC Bupivacaine HCl 75 mg STK-MED ONCE IJ Last administered on 02/21/25at 12:18; Start 02/21/25 at 12:18; Stop 02/21/25 at 14:14; Status DC EUGENE ZARATE MD Feb 22, 2025 19:16
--- NOTE | 2025-02-22 21:59 | PN ---
INFECTIOUS DISEASE PROGRESS NOTE Date of Service: Feb 22, 2025 SUBJECTIVE: This 74-year-old male patient who answer most questions appropriately during rounding today. Patient is s/p surgical removal of Impella day # 1. Patient is currently on a 1-1 sitter observation due to patient was confused throughout the night. No fever reported the WBC still slightly elevated at 14.0. Continues on Zosyn and vancomycin. PHYSICAL EXAM EYES: Anicteric. Pupils equal and reactive. HENT: No oral thrush seen, moist Oral mucosa. NECK: Supple, no JVD or thyromegaly. LUNGS: Good air entry. diminished breath sounds. CHEST: Sternal incision. CARDIOVASCULAR: S1, S2 regular. No murmur heard. ABDOMEN: Soft, non tender, bowel sounds present. CENTRAL NERVOUS SYSTEM: Awake, alert, oriented. SKIN: No rashes, no swelling. Vein harvesting surgical incisions to bilateral lower extremities.. LYMPHATICS: No peripheral lymphadenopathy. MUSCULOSKELETAL: No joint swelling, erythema or tenderness. EXTREMITIES: No cyanosis or clubbing. 1+ edema to bilateral feet. BACK: No deformity, no pressure ulcer. GENITOURINARY: No dysuria or hematuria. De Jesus catheter. Vital Sign (Last 12 Hours) 02/22/25 02/22/25 02/22/25 02/22/25 10:00 10:15 10:30 10:38 Pulse 75 72 72 73 Resp 104 48 35 137 B/P (MAP) 106/42 (63) 115/44 (67) 114/42 (66) 114/43 (66) 101/54 (70) Pulse Ox 92 100 100 100 FiO2 28 02/22/25 02/22/25 02/22/25 02/22/25 10:45 11:15 11:30 11:45 Pulse 74 77 77 88 Resp 22 26 29 24 B/P (MAP) 123/48 (73) 128/52 (77) 128/47 (74) 150/59 (89) Pulse Ox 100 100 100 97 FiO2 28 28 28 28 02/22/25 02/22/25 02/22/25 02/22/25 12:00 12:00 12:15 12:30 Pulse 79 77 77 Resp 34 43 45 B/P (MAP) 125/47 (73) 117/42 (67) 112/37 (62) Pulse Ox 100 100 100 100 O2 Delivery Nasal Cannula* O2 Flow Rate 2 FiO2 02/22/25 02/22/25 02/22/25 02/22/25 12:45 13:00 13:15 13:30 Pulse 77 77 77 77 Resp 31 36 29 38 B/P (MAP) 115/38 (63) 107/35 (59) 114/38 (63) 118/40 (66) Pulse Ox 100 100 100 100 FiO2 02/22/25 02/22/25 02/22/25 02/22/25 13:45 14:00 14:15 14:30 Pulse 78 78 79 80 Resp 49 52 38 28 B/P (MAP) 112/37 (62) 117/38 (64) 120/39 (66) 115/38 (63) Pulse Ox 100 100 100 100 FiO2 02/22/25 02/22/25 02/22/25 02/22/25 14:45 14:48 15:00 15:15 Pulse 81 80 78 77 Resp 27 41 B/P (MAP) 134/49 (77) 123/45 (71) 105/50 (68) Pulse Ox 100 100 100 100 FiO2 02/22/25 02/22/25 02/22/25 02/22/25 15:30 15:38 15:45 16:00 Pulse 77 77 77 Resp 40 47 48 B/P (MAP) 126/47 (73) 121/46 (71) 122/46 (71) 110/54 (72) Pulse Ox 100 100 100 100 O2 Delivery Nasal Cannula* O2 Flow Rate 2 FiO2 02/22/25 02/22/25 02/22/25 02/22/25 16:00 16:15 16:30 16:38 Pulse 78 77 77 79 Resp 105 53 45 36 B/P (MAP) 124/46 (72) 121/45 (70) 119/45 (69) 130/61 (84) 108/63 (78) Pulse Ox 100 100 100 100 FiO2 02/22/25 02/22/25 02/22/25 02/22/25 16:45 17:00 17:15 17:30 Pulse 80 80 81 80 Resp 74 36 79 77 B/P (MAP) 141/59 (86) 140/59 (86) 132/54 (80) 126/52 (76) Pulse Ox 99 100 100 99 FiO2 28 28 28 28 02/22/25 02/22/25 02/22/25 02/22/25 17:38 17:45 18:00 18:15 Pulse 80 80 81 80 Resp 85 73 57 34 B/P (MAP) 130/50 (76) 127/50 (75) 111/45 (67) 114/44 (67) 114/63 (80) Pulse Ox 100 100 100 100 FiO2 28 28 28 28 02/22/25 02/22/25 02/22/25 02/22/25 18:30 20:00 20:00 20:40 Temp 99.3 Pulse 80 Resp 48 B/P (MAP) 115/44 (67) 121/52 Pulse Ox 100 100 O2 Delivery Nasal Cannula* O2 Flow Rate 2 FiO2 28 Intake & Output (last 24hrs) 02/21/25 02/21/25 02/22/25 15:00 23:00 07:00 Intake Total 754.4 ml 642.9 ml 251.7 ml Output Total 825 ml 1250 ml 1400 ml Balance -70.6 ml -607.1 ml -1148.3 ml LABS: Laboratory: Test 02/22/25 20:20 02/22/25 04:11 02/21/25 04:21 02/21/25 03:01 Range/Units Whole Blood Glucose 139 H 70-110 MG/DL White Blood Count 14.0 H 4.8-10.8 K/uL Red Blood Count 2.75 L 4.50-6.20 MIL/uL Hemoglobin 8.2 L 14.0-18.0 g/dL Hematocrit 24.2 L 42-54 % Mean Corpuscular Volume 88.0 79-99 fL Mean Corpuscular Hemoglobin 29.8 27.0-33.0 pg Mean Corpuscular Hemoglobin Concent 33.9 32.0-36.0 g/dL Red Cell Distribution Width 14.7 11.0-15.5 % Platelet Count 310 130-400 K/uL Mean Platelet Volume 10.8 H 7.5-10.5 fL Immature Granulocyte % (Auto) 9.5 H 0-1 % Neutrophils (%) (Auto) 57.9 40.0-77.0 % Lymphocytes (%) (Auto) 18.8 L 21.0-51.0 % Monocytes (%) (Auto) 9.9 3.0-13.0 % Eosinophils (%) (Auto) 3.3 0.0-8.0 % Basophils (%) (Auto) 0.6 0.0-5.0 % Neutrophils # (Auto) 8.1 H 1.8-7.7 K/uL Lymphocytes # (Auto) 2.6 1.0-4.8 K/uL Monocytes # (Auto) 1.4 H 0.1-1.0 K/uL Eosinophils # (Auto) 0.46 0.00-0.70 K/uL Basophils # (Auto) 0.08 0.00-0.20 K/uL Absolute Immature Granulocyte (auto 1.33 H 0-1 K/uL Nucleated Red Blood Cells 0.7 H 0.0-0.19 % Sodium Level 133 L 136-145 mmol/L Potassium Level 3.8 3.5-5.1 mmol/L Chloride Level 98 L 101-111 mmol/L Carbon Dioxide Level 26 21-32 mmol/L Blood Urea Nitrogen 14 7-18 mg/dL Creatinine 0.9 0.5-1.3 mg/dL Glomerular Filtration Rate Calc 89 >90 mL/min Random Glucose 183 H 70-105 mg/dL Total Calcium 7.8 L 8.5-10.1 mg/dL Magnesium Level 2.00 1.80-2.40 mg/dL Prothrombin Time 11.9 H 9.6-11.6 SEC Prothromb Time International Ratio 1.14 0.85-1.15 Activated Partial Thromboplast Time 31.0 26.3-35.5 SEC Fibrinogen 550 *H 180-350 mg/dL Total Bilirubin 1.9 #H 0.2-1.0 mg/dL Aspartate Amino Transf (AST/SGOT) 29 10-37 U/L Alanine Aminotransferase (ALT/SGPT) 26 12-78 U/L Alkaline Phosphatase 73 50-136 U/L Total Protein 6.1 6.0-8.3 g/dL Albumin 2.7 #L 3.5-5.0 g/dL Vancomycin Level Trough 2.8 #L 10.0-20.0 UG/ML Blood Gas Specimen Type Arterial Arterial Blood pH 7.477 H 7.350-7.450 Arterial Blood Partial Pressure CO2 32 L 35-48 mmHg Arterial Blood Partial Pressure O2 67.5 L 83.0-108.0 mmHg Arterial Blood HCO3 23.1 21.0-28.0 mmol/L Arterial Blood Oxygen Saturation 92.8 L 94.0-98.0 % Arterial Blood Base Excess 0.1 -2.0-3.0 mmol/L Hemoglobin (Blood Gas) 11.5 L 13.5-17.5 g/dL Sodium (Blood Gas) 136 136-145 MMOL/L Bedside Potassium (Blood Gas) 3.7 3.4-4.5 MMOL/L Bedside Chloride (Blood Gas) 99 98-107 MMOL/L Bedside Glucose (Blood Gas) 219 H 65-95 MG/DL Bedside Ionized Calcium (Blood Gas) 1.09 L 1.15-1.33 MMOL/L Bedside Lactic Acid (Blood Gas) 1.42 H 0.36-0.75 MMOL/L Blood Gas Temperature 37.0 35.5-37.0 CELSIUS Blood Gas Vent Mode RA ROOM AIR FiO2 21.0 % Blood Gas Specimen Comment MARGUERITE RN, RB ASSESSMENT: Possible hospital-acquired pneumonia. Leukocytosis. Multivessel coronary artery disease, status post CABG on 02/14/2025, s.p surgical removal of Impella. Postop anemia. Left Pleural effusion. Diabetes mellitus. Congestive heart failure. PLAN: Continue on Zosyn. Continue Vancomycin per pharmacy protocol. Continue GI prophylaxis. Continue diuretics Monitor electrolytes. Continue oxygen support. Patient is on 1:1 sitter observation. This case was reviewed and discussed with my supervising physician Dr. Mckeon and the above assessment and plan was formulated and agreed upon. ATTESTATION BY PHYSICIAN I have seen and examined the patient. I reviewed the documentation, medical decision making, and treatment plan as noted by the mid-level provider above. I agree with the findings and plan of care. BERENICE MCKEON MD, [facility] Feb 22, 2025 21:59
[2025-02-23] VITALS (76 sets, daily range): BP systolic 90–145; BP diastolic 35–80; PULSE 75–98; RESP 11–117; TEMP 97.6–98.8; O2SAT 98–100
--- NOTE | 2025-02-23 02:07 | PN ---
SUBJECTIVE: The patient is postop day #8 from an Impella supported coronary artery bypass grafting. He is postop day #1 from removal of the Impella catheter. Since removal of the catheter yesterday, the patient has been doing well. He has been weaned off his levophed drip and has weaned down to a very low dose of epinephrine. OBJECTIVE: VITAL SIGNS: His vitals are stable. Pulse of 74, respirations 19, blood pressure is 135/49, oxygen saturation 100%. HEENT: Exam is normocephalic, atraumatic. CHEST: He has nasal cannula oxygen prongs under his nose. His left cervical Impella site is bandaged. He has a right Cordis introducer through which an epinephrine drip at 0.02 mcg/kg/min is infusing. His sternal wound is bandaged. His chest tubes have been removed. HEART: S1 and S2 and regular. LUNGS: Unlabored on oxygen. ABDOMEN: Reveals moderate obesity with positive bowel sounds. GENITOURINARY: He has a De Jesus catheter in his bladder. EXTREMITIES: He has JIAN stockings and SCDs on his lower extremities. His white cell count is 14,000, hemoglobin 8.2. BUN is 14, creatinine is 0.9. ASSESSMENT AND PLAN: * Status post coronary artery bypass grafting and removal of Impella catheter. Continue to wean epinephrine drip. Hold beta-estela while still on epinephrine. Continue Lasix and aspirin as well as Jardiance and Aldactone. Get patient up into a bedside chair. Discontinue his cervical central venous line for infectious reasons after placement of a PICC line. * Postoperative acute pulmonary insufficiency secondary to thoracic surgery and heart failure. Continue supportive oxygen needs to maintain oxygen saturation greater than 90% on room air. Encouraged incentive spirometry. * Hypercholesterolemia. Lipitor 40 mg p.o. at bedtime, low cholesterol, cardiac diet. * Deep venous thrombosis prophylaxis. Lovenox 30 mg subcutaneous daily. The patient is critically ill in the ICU. TID: [id number] RECEIPT: [id number]
[2025-02-23 05:36] LABS: IMMATURE GRANULOCYTE ABSOLUTE 0.68 K/uL (0-1); NUCLEATED RED BLOOD CELLS 0.2 % (0.0-0.19); PLATELET COUNT (AUTO) 345 K/uL (130-400); RED BLOOD CELL COUNT(AUTO) 2.81 MIL/uL (4.50-6.20); RED CELL DISTRIBUTION WIDTH 15.0 % (11.0-15.5); WHITE BLOOD COUNT (AUTO) 14.6 K/uL (4.8-10.8)
[2025-02-23 06:12] LABS: ASPARTATE AMINOTRANSFERASE 23.0 U/L (10-37); CREATININE 0.8 mg/dL (0.5-1.3); GLOMERULAR FILTR. RATE CALC 92.0 mL/min (>90); GLUCOSE,RANDOM 116.0 mg/dL (70-105); SODIUM SERUM 135.0 mmol/L (136-145); TOTAL PROTEIN, SERUM 5.9 g/dL (6.0-8.3); UREA NITROGEN, BLOOD 13.0 mg/dL (7-18)
--- NOTE | 2025-02-23 09:35 | NUR ---
MD ROUNDS in to see pt - updated. Meds reviewed with MD - coreg held while pt on epi, midodrine added - MD aware Jardiance d/c'd by . MD aware of blood-tinged urine - per MD continue lovenox unless increased bleeding/clots in urine noted. Pt reported onset of left ankle discomfort - assessed by MD. No additional orders received regarding latter. Pt has PRN pain meds available. When questioned, pt denies prior pain/injury to left ankle. Denies hx of gout. Spouse at bedside and confirmed same.
--- NOTE | 2025-02-23 10:13 | PN ---
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 He was admitted 02/10/2025 secondary to a non-STEMI. He underwent left heart catheterization which showed multivessel coronary artery disease with occluded mid LAD, 90% stenosis of the proximal left circumflex, 95% stenosis the distal RCA 90% stenosis of the ostial PDA with LVEF 20% with the akinesis of the anteroapical and inferior apical cooper and dyskinesis of the apex. He is status post CABG x3 with left atrial appendage clipping and insertion of IABP and Impella 02/14/2025. His most recent echocardiogram 02/19/2025 for Impella placement shows an ejection fraction of 25-30% with anterior and anteroseptal wall thinning and akinesis, and anterolateral wall hypokinesis. Impella was discontinued 02/21/2025. He is currently in sinus rhythm with heart rates in the 90s. He had an episode of nonsustained monomorphic ventricular tachycardia 02/16/2025. His most recent blood pressure is 115/48. White blood count 14.6, hemoglobin 8.2, hematocrit 25.3, platelets 345, creatinine 0.8, potassium 3.8, bilirubin 1.9, albumin 3.0. His 24 hour I and O balance is-3070.5 mL. He reports discomfort to his left ankle but denies chest pain, shortness or breath, dizziness or palpitations. On exam, he is in no acute distress, regular rate and rhythm, lungs are clear to auscultation bilaterally, no lower extremity edema is noted. Assessment: 1. Non-STEMI. 2. Status post CABG x3 with left atrial appendage clipping with insertion of IABP and Impella 02/14/2025. 3. Ischemic cardiomyopathy. 4. Postoperative blood loss anemia. 5. Type 2 diabetes mellitus. 6. History of CVA. Plan: 1. He presented with a non-STEMI and underwent left heart catheterization revealing multivessel coronary artery disease with LVEF 20%. He is status post CABG x3 with left atrial appendage clipping 02/14/2025. He remains on low-dose epinephrine. 2. Continue aspirin 81 mg once daily, atorvastatin 40 mg once daily, IV furosemide 20 mg twice daily and spironolactone 25 mg once daily. Carvedilol remains on hold due to need for pressor support. Advance medical therapy as tolerated. 3. Continue recommendations per CT surgery. 4. We will follow the patient. Vitals/Labs Vital Signs Date Time Temp Pulse Resp B/P (MAP) Pulse Ox O2 Delivery O2 Flow Rate FiO2 02/23/25 07:04 88 21 N/Cannula Low lpm 3.0 32 02/23/25 05:15 120/46 (70) 100 02/23/25 04:00 98.8 Laboratory Tests 02/23/25 04:58 CRYSTAL ANDERSON PAC Feb 23, 2025 10:13
--- NOTE | 2025-02-23 10:19 | PN ---
SUBJECTIVE: The patient is postop day 9 from an Impella supported coronary artery bypass grafting. The Impella was removed 2 days ago and the patient has been doing well; however, he is on a low dose of epinephrine drip. Today, he is more awake and alert, and he is for the first time since surgery up in a chair, visiting with his . OBJECTIVE: VITAL SIGNS: His vital signs reveal a pulse of 88, respirations 21, blood pressure is 120/46, oxygen saturation 100%. HEENT: HEENT exam reveals to be normocephalic, atraumatic. Extraocular movements intact. His central venous line has been removed. His Impella catheter has been removed from his neck. CHEST: His sternal wound is bandaged. His chest tubes are out. HEART: His heart is S1 and S2 and regular. LUNGS: His lungs are unlabored at rest. ABDOMEN: His abdomen reveals mild to moderate obesity. GENITOURINARY: He has a De Jesus catheter in his bladder. EXTREMITIES: He has a left upper extremity PICC line. He has a right radial art line. He has SCDs and JIAN stockings on his lower extremities. ASSESSMENT AND PLAN: * Status post coronary artery bypass grafting with history of low ejection fraction. Continue to wean epinephrine drip. We will start midodrine 10 mg t.i.d. Continue Lasix, Aldactone, aspirin, and sternal precautions. * Hypercholesterolemia. Lipitor at bedtime and low cholesterol, cardiac diet. * Deep venous thrombosis prophylaxis. Continue SCDs and Lovenox. In summary, thank you very much. Time spent 30 minutes. The patient is critically ill in the ICU. TID: [id number] RECEIPT: [id number]
--- NOTE | 2025-02-23 14:49 | PN ---
[facility] PROGRESS NOTE Date of Service: Feb 23, 2025 Time of Service: 14:30 HISTORY OF PRESENT ILLNESS: This is a 74-year-old male,a [employer] by christianity whith past medical history of diabetes, hyperlipidemia and [place]/coronary artery disease with cardiac stent who presented to the Ed for complaints of midsternal chest pain that is non radiating associated with diaphoresis and this happened when patient was laying down in bed aroun 11:50 pm last night and decided to come to the ED for evaluation.Patient reports pain was persistent.As per patient he had a history of heart attack before and underwent a stent placement.Patient reports the only medication he is taking is Metformin.Patient states he is supposed to be on Aspirin but has stopped taking it.Patient reports he occasionally drinks beer and last drink was yesterday ,had 2 beers he said. Seen and examined patient in the ER awake,alert and coherent,appears comfortable.Patient denies fever,chills,cough,nausea,vomiting,palpitation and shortness of breath. Latest vital signs temperature 98.2, heart rate 75, blood pressure 124/70 saturation 97% on room air. Labs: CBC unremarkable. Chloride 99, BUN 21, random glucose 469 to 439 to 327. Troponin from -. ECG result revealed revealed sinus rhythm heart rate 85 with atrial premature complex anterolateral infarct age indeterminate. Second EKG result revealed sinus rhythm heart rate 73 with left anterior fascicular block. Probable anterolateral infarct age indeterminate. Abnormal T consider ischemia lateral leads.. Chest x-ray result revealed no acute cardiopulmonary process is evident. While in the ER patient received 1500 mL NS bolus, insulin 5 units IV, aspirin 325 mg p.o. and patient was started on heparin drip per [facility] protocol. SUBJECTIVE: 02/10/25: Patient was seen and evaluated in ED9. Patient was alert, awake and orientedX3. Patient reports that he doesn't have any chest pain today. Patient reports occasional shortness of breath during nights. Patient denies any shortness of breath, nausea, vomiting, palpitations and lightheadedness. Patient denies any abdominal pain, burning urination. Patient mentions that he only takes metformin 3-4 times per week and has stopped taking aspirin because it wasn't reconciled. Troponin from -. 2D ECHO was done, pending results. Patient is currently on Heparin drip 02/11/25: Patient was evaluated at the bedside this morning. No overnight event. He is AAO x3. patient reported that he does not have chest pain or shortness of breath. He is hemodynamically stable. The labs remarkable for potassium 3.3, magnesium 1.6, HbA1c 13.9, troponin [id number]. Left heart catheterization revealed severe triple-vessel disease. Echocardiogram revealed 25% ejection fraction with segmental akinesis. CT surgery was consulted who recommended CABG with Impella left ventricle assist. Family to decide about the procedure. He is currently on heparin drip, aspirin. Endocrinology on board. Rest of the plan as discussed below. 02/12/25: Patient was evaluated at the bedside this morning. No overnight event. He is AAO x3. patient reported that he does not have chest pain or shortness of breath. He is hemodynamically stable. Cardiology is on board and Dr. Blanton have suggested low-dose beta estela like metoprolol tartrate 12.5 mg b.i.d. for his heart failure. Dr Kaur still recommends CABG with 5.5 Impella LVAD and the patient agrees to it. We will continue Entresto, Aldactone, Jardiance, aspirin, Lasix as per CT surgeon recommendations. Today his potassium is 3.1 and we would like to be above 4 for CABG patients. So we will replace potassium 02/13/25: Patient was seen and evaluated in room 201. Patient reports feeling better. patient denies any chest pain, shortness of breath. He is continuing on Entresto, Aldactone, Jardiance, aspirin, Lasix as per CT surgeon recommendations.Patients Potassium today is 3.7, will continue replacing potassium. Patients was present along with the patient, she has a few question about the CABG procedure which she wanted to ask Dr. Alexis. 02/14/25. Patient was undergoing CABG procedure today in the morning. 02/15/25: Patient was seen and evaluated in room 213. Patient status post CABG day 1. Patient denies any fever, chills, shortness of breath. Patient complaints of pain along the incision. Patient is on IABP and Impella support. patient is on Vasopressin and Norepinephrine drip. Entresto, Aldactone, Jardiance were discontinued by Dr. Alexis. CT surgery are on the case and will follow their recommendations. 02/16/25: Patient was seen and evaluated in room 213. Patient status post CABG day 2. patient was asleep when we went bedside. Spoke with the nurse regarding overnights and she mentioned that patient was a bit confused in the night but later improved with sleep. Patient is continuing on Epinephrine drip. Patient was weaned off IABP and is currently only on Impella. Patient was started on Vancomycin and cefepime due to elevated WBC levels and findings suggestive of pneumonia on chest x-ray 02/17/25: Patient was seen and evaluated in room 213. Patient status post CABG day 2. patient was asleep when we went bedside. Spoke with the nurse regarding overnights and he mentioned that patient was started on lasix protocol. Patient is continuing on Epinephrine drip and Impella. Critical care are on the case and will follow their recommendations. 02/18/25: Patient was seen and examined at bedside. He is status post CABG day 3. He continues on Lasix drip 2.5, With Impella P3 support and epinephrine drip. His total output in the past 24 hours has been optimal, 4740 versus 2165 input. No acute events overnight. We will follow CTS recommendations regarding further weaning off Impella. 02/19/25: Patient was seen and evaluated in room 210. He is status post CABG day 4. He continues on Lasix drip 2.5, With Impella P3 support and epinephrine drip. His total output in the past 24 hours has been 2905 versus 4072. No acute overnight. Patient is scheduled for possible impella removal tomorrow. 02/20/25: Patient was seen and evaluated in room 210. He is status post CABG day 5. He continues on Lasix drip 2.5, Impella setting have been maintained at P3 settings. He is continuing on epinephrine drip. Cefepime was discontinued yesterday because overnight the patient was confused, agitated and combative suspecting the cause of his confusion and started on Zosyn. His total output in the past 24 hours has been 2675 versus 2206. Patient is scheduled for possible impella removal tomorrow. 02/21/25: Patient was seen and evaluated in room 210. He is status post CABG day 6. Patient is continuing on Epinephrine drip. patient was started on Lasix 20mg IV. Patient is scheduled for impella removal today. Patient is continuing on Zosyn. His total output in the past 24 hours has been 6700 versus 1785. 02/22/25: Patient was seen and evaluated in room 210. He is status post CABG day 7. Patient reports feeling better and he doesn't have any active complaints, Impella was removed yesterday and patient is continuing on Epinephrine drip. patient denies any shortness of breath, fever, chills and chest pain. Patient is continuing on Zosyn. His total output in the past 24 hours has been 3650 versus 1775. 02/23/25: Patient was seen and evaluated in room 210. He is status post CABG day 8. Patient complains of pain in left lower extremity, Patient denies any erythema, chest pain. Patient denies any fever, chills, shortness of breath, and dizziness. Ankle X-ray, US venous Doppler was ordered, will follow the results. Patient is continuing on lasix 20mg. His total output in the past 24 hours has been 4900 versus 1829. REVIEW OF SYSTEMS CONSTITUTIONAL: Denies fevers, chills, or night sweats. No unintentional weight loss reported. NEUROLOGICAL: Denies headache, amaurosis fugax, motor weakness, sensory defic it, vertigo/spinning sensation, gait abnormalities, or tremors. ENT: No hearing loss, otalgia, otorrhea, rhinitis, rhinorrhea, hoarseness, or sore throat. CARDIOVASCULAR: Denies chest pain, dyspnea on exertion, orthopnea, paroxysmal nocturnal dyspnea, palpitations, life-threatening arrhythmias, claudication. PULMONARY: Denies any cough, phlegm/sputum, hemoptysis, pleuritic chest pain. GASTROINTESTINAL: Denies any type of dysphagia to either liquids or solids. Denies nausea, vomiting, pyrosis, early satiety, abdominal pain, diarrhea, constipation, or changes in stool consistency or caliber. Denies coffee-ground emesis, hematemesis, hematochezia, or melanotic stools. GENITOURINARY: Denies frequency, urgency, nocturia, hematuria or incontinence (Storage/Irritative symptoms.) Low urinary stream, straining to void, urinary intermittency or hesitancy, splitting of the voiding stream, terminal dribbling. PHYSICAL EXAM GENERAL APPEARANCE: The patient is awake, alert, and oriented, in no acute cardiopulmonary distress. NEUROLOGICAL: Cranial nerves II-XII grossly intact. Motor is 5/5 in bilateral upper and lower extremities proximal to distal. No sensory deficits. HEENT: Face is symmetric. Pupils are equal and reactive. Extraocular movements are intact. NECK: Supple. No JVD. No thyromegaly. No submental, submandibular, pre-/postauricular, occipital or supraclavicular lymphadenopathy. CHEST: Normal chest expansion. No Telemetry. LUNGS: Absence of any rales, rhonchi or any wheezing. CARDIOVASCULAR: Regular. S1 and S2 normal. No appreciable rubs, murmurs or gallops. ABDOMEN: Soft, nontender, and nondistended. There is no rebound, voluntary guarding, or rigidity. : Deferred. No De Jesus. EXTREMITIES: Non-edematous and not cyanotic. No clubbing. Good capillary refill. SKIN: No skin breakdown. Vital Signs (last 8hr) Date Time Temp Pulse Resp B/P (MAP) Pulse Ox O2 Delivery O2 Flow Rate FiO2 02/23/25 14:15 83 117/46 (69) 02/23/25 14:00 81 20 115/41 (65) 98 115/63 (80) 02/23/25 13:30 80 113/41 (65) 02/23/25 13:15 80 115/43 (67) 02/23/25 13:00 79 21 125/49 (74) 99 128/67 (87) 02/23/25 12:45 79 114/47 (69) 02/23/25 12:30 80 133/53 (79) 02/23/25 12:00 78 19 114/44 (67) 98 116/68 (84) 02/23/25 11:15 79 118/46 (70) 02/23/25 11:12 98 Room Air* 0 21 02/23/25 11:00 81 18 117/57 (77) 96 02/23/25 11:00 98.1 02/23/25 10:45 80 02/23/25 10:30 78 02/23/25 10:15 85 15 120/53 (75) 99 02/23/25 10:00 87 16 117/51 (73) 97 115/60 (78) 02/23/25 09:45 88 118/49 (72) 02/23/25 09:30 88 106/46 (66) 02/23/25 09:15 90 105/45 (65) 02/23/25 09:00 91 12 102/44 (63) 100 105/38 (60) 02/23/25 08:00 97.5 91 11 122/49 (73) 100 103/51 (68) 02/23/25 07:23 99 Nasal Cannula* 2 28 02/23/25 07:04 88 21 N/Cannula Low lpm 3.0 32 02/23/25 07:00 98.8 02/23/25 07:00 89 13 120/64 (82) 100 114/67 (83) LABS: Laboratory: Test 02/23/25 11:45 02/23/25 04:58 02/22/25 04:11 Range/Units Whole Blood Glucose 140 H 70-110 MG/DL White Blood Count 14.6 H 4.8-10.8 K/uL Red Blood Count 2.81 L 4.50-6.20 MIL/uL Hemoglobin 8.2 L 14.0-18.0 g/dL Hematocrit 25.3 L 42-54 % Mean Corpuscular Volume 90.0 79-99 fL Mean Corpuscular Hemoglobin 29.2 27.0-33.0 pg Mean Corpuscular Hemoglobin Concent 32.4 32.0-36.0 g/dL Red Cell Distribution Width 15.0 11.0-15.5 % Platelet Count 345 130-400 K/uL Mean Platelet Volume 10.4 7.5-10.5 fL Immature Granulocyte % (Auto) 4.7 H 0-1 % Neutrophils (%) (Auto) 66.0 40.0-77.0 % Lymphocytes (%) (Auto) 18.4 L 21.0-51.0 % Monocytes (%) (Auto) 8.9 3.0-13.0 % Eosinophils (%) (Auto) 1.5 0.0-8.0 % Basophils (%) (Auto) 0.5 0.0-5.0 % Neutrophils # (Auto) 9.7 H 1.8-7.7 K/uL Lymphocytes # (Auto) 2.7 1.0-4.8 K/uL Monocytes # (Auto) 1.3 H 0.1-1.0 K/uL Eosinophils # (Auto) 0.22 0.00-0.70 K/uL Basophils # (Auto) 0.08 0.00-0.20 K/uL Absolute Immature Granulocyte (auto 0.68 0-1 K/uL Nucleated Red Blood Cells 0.2 H 0.0-0.19 % Sodium Level 135 L 136-145 mmol/L Potassium Level 3.8 3.5-5.1 mmol/L Chloride Level 98 L 101-111 mmol/L Carbon Dioxide Level 22 21-32 mmol/L Blood Urea Nitrogen 13 7-18 mg/dL Creatinine 0.8 0.5-1.3 mg/dL Glomerular Filtration Rate Calc 92 >90 mL/min Random Glucose 116 H 70-105 mg/dL Total Calcium 7.8 L 8.5-10.1 mg/dL Total Bilirubin 1.9 H 0.2-1.0 mg/dL Aspartate Amino Transf (AST/SGOT) 23 10-37 U/L Alanine Aminotransferase (ALT/SGPT) 22 12-78 U/L Alkaline Phosphatase 61 50-136 U/L Total Protein 5.9 L 6.0-8.3 g/dL Albumin 3.0 L 3.5-5.0 g/dL Magnesium Level 2.00 1.80-2.40 mg/dL Current Medications Medications (Trade) Dose Ordered Sig/Carol Route PRN Reason Start Time Stop Time Status Last Admin Dose Admin Acetaminophen (TYLenol 325MG TAB) 650 mg Q4H PRN PO MILD PAIN (1-3) 02/10/25 05:00 02/14/25 10:05 DC Acetaminophen (TYLenol 325MG TAB) 650 mg Q4H PRN PO Temp >38.3C(AFTER EXTUBATION) 02/14/25 10:00 03/16/25 09:59 Acetaminophen (TYLenol 325MG TAB) 650 mg Q6H PRN PO TEMPERATURE GREATER THAN 101.5 02/10/25 05:00 02/14/25 10:17 DC 02/12/25 17:13 650 MG Acetaminophen (TYLenol 325MG TAB) 650 mg Q6H PRN PO MILD PAIN (1-3) 02/14/25 10:00 03/16/25 09:59 Acetaminophen (TYLenol 650MG SUPPOSITORY) 650 mg Q4H PRN RC Temp >38.3C WHILE INTUBATED 02/14/25 10:00 02/23/25 11:52 DC Acetaminophen (acetaMINOPHEN 1,000MG/100ML) 1,000 mg Q6H6 IV 02/14/25 14:00 02/15/25 13:59 DC 02/15/25 12:14 1,000 MG Albumin Human 50 ml @ 0 mls/hr Q12H9 IV 02/20/25 09:00 02/25/25 08:59 02/23/25 09:48 999 MLS/HR Albumin Human 250 ml @ 0 mls/hr AD IV 02/14/25 15:30 02/18/25 10:40 DC 02/18/25 10:27 250 MLS/HR Albumin Human 250 ml @ 0 mls/hr AD IV 02/18/25 10:30 02/20/25 09:03 DC Albumin Human 250 ml @ 0 mls/hr AD PRN IV IF HEMODYNAMICALLY UNSTABLE 02/14/25 10:00 02/14/25 14:42 DC 02/14/25 14:42 500 MLS/HR Aminocaproic Acid 18832 mg/Sodium Chloride 310 ml @ 25 mls/hr AD IV 02/14/25 10:00 02/14/25 10:19 DC Aminocaproic Acid 17635 mg/Sodium Chloride 480 ml @ 0 mls/hr AD PRN IV BLEEDING CONTROL 02/14/25 06:30 02/23/25 11:52 DC Aminocaproic Acid 30107 mg/Sodium Chloride 480 ml @ 0 mls/hr AD PRN IV BLEEDING CONTROL 02/14/25 07:00 02/14/25 06:51 DC Aspirin (Aspirin 325mg Tab) 325 mg ONCE PO 02/10/25 14:30 02/10/25 17:22 DC 02/10/25 14:32 325 MG Aspirin (Aspirin 81mg Ec Tab) 81 mg DAILY PO 02/10/25 09:00 03/12/25 08:59 02/23/25 09:48 81 MG Atorvastatin Calcium (LIPItor 40MG) 40 mg HS PO 02/14/25 21:00 03/16/25 20:59 02/22/25 20:39 40 MG Calcium Gluconate 1 gm/Sodium Chloride 60 ml @ 200 mls/hr AD PRN IV HYPOCALCEMIA 02/14/25 10:00 03/16/25 09:59 02/21/25 08:36 200 MLS/HR Carvedilol (Coreg 3.125MG) 3.125 mg BID PO 02/20/25 21:00 03/22/25 20:59 Hold Cefazolin Sodium (Ancef) 2 gm ONCALL IVP 02/13/25 20:00 02/14/25 18:51 DC 02/14/25 08:50 2 GM Cefazolin Sodium (Ancef) 2 gm Q8H IVPB 02/14/25 15:00 02/15/25 07:01 DC 02/15/25 06:25 2 GM Cefepime HCl (MAXipime 1 GM vial) 1 gm Q12H IVPB 02/16/25 10:30 02/20/25 08:16 DC 02/19/25 22:54 1 GM Clopidogrel Bisulfate (plaVIX 300MG TAB) 600 mg ONCE PO 02/10/25 14:00 02/10/25 17:22 DC 02/10/25 14:19 600 MG Clopidogrel Bisulfate (plaVIX 75MG) 75 mg DAILY PO 02/11/25 09:00 02/11/25 07:28 DC Dexmedetomidine/ Sodium Chloride (PRECEdex 400MCG/ 100ML-NS) 400 mcg PROTOCOL IV 02/14/25 10:00 02/15/25 09:59 DC Dexmedetomidine/ Sodium Chloride (PRECEdex 400MCG/ 100ML-NS) 400 mcg PROTOCOL IV 02/20/25 07:30 02/22/25 15:01 DC 02/22/25 05:51 400 MCG Dexmedetomidine/ Sodium Chloride (PRECEdex 400MCG/ 100ML-NS) 400 mcg PROTOCOL IV 02/23/25 00:00 03/25/25 00:00 02/23/25 00:17 400 MCG Dextrose (D50w) 50 ml AD PRN IV HYPOGLYCEMIA PROTOCOL 02/10/25 05:00 02/14/25 10:17 DC Dextrose (D50w) 50 ml AD PRN IV HYPOGLYCEMIA PROTOCOL 02/14/25 10:00 03/16/25 09:59 Docusate Sodium (COLace 100MG CAP) 100 mg BID PO 02/14/25 21:00 03/16/25 20:59 02/23/25 09:48 100 MG Empaglifozin (Jardiance 10mg) 10 mg DAILY PO 02/10/25 14:30 02/14/25 09:59 DC 02/13/25 10:52 10 MG Empaglifozin (Jardiance 10mg) 10 mg DAILY PO 02/20/25 09:00 02/22/25 15:01 DC 02/22/25 09:38 10 MG Enoxaparin Sodium (Lovenox) 30 mg DAILY SQ 02/17/25 09:00 03/19/25 08:59 02/23/25 10:12 30 MG Epinephrine HCl 10 mg/Sodium Chloride 250 ml @ 0 mls/hr AD PRN IV TITRATE 02/14/25 06:30 03/16/25 06:29 02/20/25 17:32 2.9 MLS/HR Epinephrine HCl 10 mg/Sodium Chloride 250 ml @ 0 mls/hr AD PRN IV TITRATE 02/14/25 07:00 02/14/25 06:51 DC Epinephrine HCl 10 mg/Sodium Chloride 250 ml @ 0 mls/hr AD PRN IV POST-OP CARDIOVASCULAR ORDERS 02/14/25 10:00 02/14/25 10:14 DC Famotidine (Pepcid 20mg Vial) 20 mg BID IV 02/14/25 21:00 02/16/25 07:58 DC 02/15/25 20:15 20 MG Famotidine (Pepcid 20mg Tab) 20 mg BID PO 02/16/25 09:00 02/17/25 07:09 DC 02/16/25 20:03 20 MG Famotidine (Pepcid 20mg Tab) 20 mg DAILY PO 02/10/25 09:00 02/14/25 09:59 DC 02/13/25 10:53 20 MG Famotidine (Pepcid 20mg Tab) 20 mg DAILY PO 02/17/25 09:00 03/18/25 08:59 02/23/25 09:48 20 MG Furosemide (LASix 20MG TAB) 20 mg DAILY PO 02/11/25 09:00 02/14/25 09:59 DC 02/13/25 10:52 20 MG Furosemide (LASix 20MG TAB) 20 mg Q12H PO 02/16/25 09:00 02/16/25 10:21 DC 02/16/25 08:19 20 MG Furosemide (LASix 20MG VIAL) 20 mg ONCE IV 02/10/25 17:00 02/10/25 21:00 DC 02/10/25 17:00 20 MG Furosemide (LASix 20MG VIAL) 20 mg ONCE IV 02/11/25 09:00 02/11/25 07:43 DC Furosemide (LASix 20MG VIAL) 20 mg Q12H IV 02/15/25 09:00 02/16/25 08:59 DC 02/15/25 20:16 20 MG Furosemide (LASix 20MG VIAL) 20 mg Q12H IV 02/20/25 09:00 03/22/25 08:59 02/23/25 09:49 20 MG Furosemide 100 mg/ Sodium Chloride 100 ml @ 0 mls/hr PROTOCOL IV 02/16/25 10:30 02/20/25 09:01 DC 02/19/25 11:35 2.5 MLS/HR Glucagon (Glucagon 1mg Kit) 1 mg AD PRN IM HYPOGLYCEMIA PROTOCOL 02/10/25 05:00 02/14/25 10:17 DC Glucagon (Glucagon 1mg Kit) 1 mg AD PRN IM HYPOGLYCEMIA PROTOCOL 02/14/25 10:00 03/16/25 09:59 Heparin Sodium (Porcine) (HEParin 5,000 UNIT VIAL) *calculation based on ACTUAL B... AD PRN IV HEPARIN PROTOCOL 02/12/25 21:00 02/14/25 09:59 DC 02/12/25 20:16 4,000 UNIT Heparin Sodium/ Dextrose 250 ml @ 0 mls/hr PROTOCOL IV 02/10/25 03:00 02/10/25 17:22 DC 02/10/25 03:00 16.2 MLS/HR Heparin Sodium/ Dextrose 250 ml @ 0 mls/hr Q6H IV 02/11/25 06:30 02/14/25 09:59 DC 02/13/25 13:01 9 MLS/HR Home Med (Home Medication) (Brimonidine-Timolol 0.2%/0.5% EYE DROPS) DAILY OP 02/18/25 09:00 03/20/25 08:59 02/23/25 09:50 2 EACH Insulin Glargine (LANtus 100 UNITS/ML 10 ML VIAL) 10 units DAILY SQ 02/21/25 09:00 02/22/25 19:17 DC 02/22/25 11:54 10 UNITS Insulin Glargine (LANtus 100 UNITS/ML 10 ML VIAL) 12 units DAILY SQ 02/23/25 09:00 03/25/25 08:59 02/23/25 10:14 12 UNITS Insulin Glargine (LANtus 100 UNITS/ML 10 ML VIAL) 12 units DAILY08 SQ 02/13/25 08:00 02/14/25 09:59 DC 02/13/25 10:51 12 UNITS Insulin Glargine (LANtus 100 UNITS/ML 10 ML VIAL) 15 units DAILY08 SQ 02/11/25 08:00 02/13/25 05:24 DC 02/12/25 08:54 15 UNITS Insulin Human Regular (humuLIN R 100 UNIT/ML 3ML) 3 unit TIDAC SQ 02/12/25 07:30 02/14/25 09:59 DC 02/12/25 16:31 3 UNIT Insulin Human Regular (humuLIN R 100 UNIT/ML 3ML) INSULIN SLIDING SCAL... ACHS SQ 02/16/25 11:30 03/18/25 11:29 02/22/25 11:55 3 UNIT Insulin Human Regular (humuLIN R 100 UNIT/ML 3ML) INSULIN SLIDING SCAL... Q4H SQ 02/10/25 05:00 02/10/25 11:10 DC 02/10/25 09:15 6 UNIT Insulin Human Regular (humuLIN R 100 UNIT/ML 3ML) INSULIN SLIDING SCAL... Q6H6 SQ 02/10/25 12:00 02/14/25 09:59 DC 02/11/25 17:29 2 UNIT Insulin Human Regular 100 unit/ Sodium Chloride 100 ml @ 0 mls/hr AD IV 02/14/25 10:00 02/16/25 09:59 DC 02/15/25 06:30 3 MLS/HR Lactulose (Constulose 20gm/ 30ml Udcup) 20 gm BID PRN PO CONSTIPATION 02/14/25 10:00 03/16/25 09:59 Latanoprost (Xalatan) 1 DROP FOR EACH EYE HS OP 02/17/25 21:00 03/19/25 20:59 02/22/25 21:17 1 DROP Magnesium Hydroxide (Milk Of Magnesium 30ml) 30 ml DAILY PRN PO CONSTIPATION 02/14/25 10:00 03/16/25 09:59 Magnesium Sulfate 50 ml @ 12.5 mls/hr AD PRN IV MAG LEVEL LESS THAN 2.0 02/14/25 10:00 03/16/25 09:59 02/21/25 16:43 12.5 MLS/HR Magnesium Sulfate 50 ml @ 0 mls/hr PROTOCOL PRN IV OTHER [SEE ORDER COMMENTS] 02/10/25 05:00 02/14/25 10:17 DC 02/12/25 07:13 25 MLS/HR Metoprolol Tartrate (loprESSOR) 12.5 mg BID PO 02/12/25 09:00 02/14/25 09:59 DC 02/14/25 06:44 12.5 MG Metoprolol Tartrate (loprESSOR) 12.5 mg BID PO 02/16/25 09:00 02/20/25 09:01 DC Midodrine (PROAMatine 5 MG TABLET) 10 mg TID PO 02/23/25 14:00 03/25/25 13:59 02/23/25 14:10 10 MG Morphine Sulfate (morPHINE 2MG SYG) 0.5 mg Q2H PRN IV MODERATE PAIN (4-6) IF NPO 02/14/25 10:00 02/15/25 09:59 DC Morphine Sulfate (morPHINE 2MG SYG) 1 mg Q2H PRN IV SEVERE PAIN (7-10) IF NPO 02/14/25 10:30 02/19/25 13:29 DC 02/14/25 14:23 1 MG Nitroglycerin (Nitrostat) 0.4 mg PROTOCOL PRN SL CHEST PAIN 02/10/25 05:00 02/14/25 09:59 DC Nitroglycerin/ Dextrose 0 ml @ 0 mls/hr AD IV 02/14/25 10:00 02/17/25 09:59 DC Norepinephrine Bitartrate 250 ml @ 0 mls/hr AD PRN IV TITRATE 02/14/25 06:30 03/16/25 06:29 02/17/25 01:06 1.9 MLS/HR Norepinephrine Bitartrate 250 ml @ 0 mls/hr AD PRN IV TITRATE 02/14/25 07:00 02/14/25 06:51 DC Norepinephrine Bitartrate 8 mg/ Dextrose 250 ml @ 0 mls/hr AD PRN IV POST-OP CARDIOVASCULAR ORDERS 02/14/25 10:00 02/14/25 10:14 DC Ondansetron HCl (zoFRAN 4MG INJ) 4 mg Q6H PRN IV NAUSEA/VOMITING 02/10/25 05:00 02/14/25 10:17 DC Ondansetron HCl (zoFRAN 4MG INJ) 4 mg Q6H PRN IV NAUSEA/VOMITING 02/14/25 10:00 03/16/25 09:59 Pharmacy Profile Note (Pharmacy Communication) 1 each ONCE MISC 02/14/25 18:00 02/14/25 18:27 DC Pharmacy Profile Note (Pharmacy Communication) 1 each ONCE MISC 02/20/25 11:30 02/20/25 11:19 DC Piperacillin Sod/ Tazobactam Sod 50 ml @ 12.5 mls/hr Q8H IVPB 02/20/25 11:30 03/02/25 11:29 02/23/25 11:58 12.5 MLS/HR Potassium Phosphate 250 ml @ 42 mls/hr AD PRN IV LOW PHOS LEVEL 02/14/25 10:00 03/16/25 09:59 Potassium Chloride 100 ml @ 100 mls/hr AD PRN IV POTASSIUM PROTOCOL 02/10/25 05:00 02/15/25 06:27 DC 02/15/25 05:43 100 MLS/HR Potassium Chloride 100 ml @ 100 mls/hr AD PRN IV HYPOKALEMIA 02/14/25 10:00 03/16/25 09:59 02/21/25 16:43 100 MLS/HR Potassium Chloride (K-Dur/Klor-Con 20meq) 20 meq AD PRN PO POTASSIUM PROTOCOL 02/10/25 05:00 03/12/25 04:59 02/18/25 20:18 20 MEQ Potassium Chloride (K-Dur/Klor-Con 20meq) 20 meq BID PO 02/19/25 10:30 03/21/25 10:29 02/23/25 09:51 20 MEQ Potassium Chloride (KCl 10% Elixir 20meq/15ml) 20 meq AD PRN PO POTASSIUM PROTOCOL 02/10/25 05:00 03/12/25 04:59 02/22/25 06:27 20 MEQ Prednisone (deltaSONE/ oraSONE 20MG TAB) 20 mg DAILY PO 02/23/25 12:30 02/26/25 13:00 02/23/25 14:10 20 MG Propofol 100 ml @ 0 mls/hr AD PRN IV SEDATION 02/14/25 10:00 02/18/25 09:59 DC Sacubitril/ Valsartan (Entresto 24 Mg-26 Mg Tablet) 0.5 each BID PO 02/10/25 21:00 02/14/25 09:59 DC 02/13/25 21:11 0.5 EACH Sodium Bicarbonate 25 meq/Dextrose 1,025 ml @ 0 mls/hr Q0M IV 02/14/25 18:00 03/16/25 17:59 02/18/25 13:03 9.9 MLS/HR Sodium Bicarbonate (Sodium Bicarb 50meq 50ml Vial) 50 meq AD PRN IV OTHER[SEE DOSING INSTRUCTIONS] 02/14/25 10:00 02/17/25 09:59 DC 02/16/25 15:25 50 MEQ Sodium Chloride 500 ml @ 0 mls/hr AD IV 02/14/25 10:00 03/16/25 09:59 Sodium Chloride 1,000 ml @ 10 mls/hr ONCE IV 02/14/25 10:00 02/15/25 09:59 DC Sodium Chloride 1,000 ml @ 100 mls/hr Q10H IV 02/10/25 05:00 02/10/25 17:22 DC 02/10/25 14:20 100 MLS/HR Sodium Chloride (NS Flush 10ml) 10 ml Q8H PRN IVP IV LINE FLUSH 02/14/25 10:00 03/16/25 09:59 Spironolactone (Aldactone 25mg) 25 mg DAILY PO 02/10/25 14:30 02/14/25 09:59 DC 02/13/25 10:52 25 MG Spironolactone (Aldactone 25mg) 25 mg DAILY PO 02/20/25 09:00 03/22/25 08:59 02/23/25 09:48 25 MG Tramadol HCl (UltRAM) 25 mg Q6H PRN PO MODERATE PAIN (4-6) 02/14/25 10:00 02/19/25 09:59 DC Tramadol HCl (UltRAM) 50 mg Q6H PRN PO SEVERE PAIN (7-10) 02/14/25 10:00 02/19/25 09:59 DC Vancomycin HCl 250 ml @ 125 mls/hr Q12H IV 02/18/25 11:30 02/21/25 05:33 DC 02/19/25 11:20 125 MLS/HR Vancomycin HCl 250 ml @ 125 mls/hr Q24H IV 02/21/25 06:00 02/28/25 11:29 02/23/25 06:28 125 MLS/HR Vancomycin HCl (Vancomycin Protocol) 1 each AD IV 02/18/25 11:00 03/04/25 10:59 Vasopressin 40 units/Sodium Chloride 40 ml @ 0 mls/hr PROTOCOL IV 02/14/25 13:00 03/16/25 12:59 02/14/25 22:11 1.8 MLS/HR DIAGNOSTICS / RADIOLOGY: [ ] ASSESSMENT: Chest pain rule out ACS: NSTEMI POA Suspected pneumonia findings on Chest X-ray Possible metabolic encephalopathy Hyperglycemia secondary to uncontrolled diabetes POA Hyperlipidemia POA Medication noncompliance, POA Obesity POA [place]/Coronary artery disease with cardiac stent POA PLAN: NSTEMI POA: * EKG was done which revealed sinus rhythm heart rate 85 with atrial premature complex anterolateral infarct age indeterminate. Second EKG result revealed sinus rhythm heart rate 73 with left anterior fascicular block. Probable anterolateral infarct age indeterminate. Abnormal T consider ischemia lateral leads. * PERC score was one, Wells score was zero. Very low suspicion for Pulmonary Embolism. * Chest x-ray done on 02/17/25 show, small stable left pleural effusion with adjacent lung atelectasis. follow up x-ray from 02/19/25 show no interval change. * 2-D ECHO on 02/19/25 show LVEF of 25-30% with segmental akinesis (apical, apical lateral, anteroapical), LDL 89, BNP 488 * Troponin trends [id number] * Left heart catheterization revealed severe three-vessel CAD with occluded mid LAD, 90% proximal left circumflex, 95% distal RCA, and 90% ostial PDA. * As per CT surgeon recommendations Entresto 0.5 each, Jardiance 10mg were held. 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 * On aspirin 81 mg p.o. * Patient started on lasix 20mg IV, Aldactone 25mg. His total output in the past 24 hours has been 4900 versus 1829. * Continuing on Epinephrine drip. * Impella scheduled for removal on (02/21/25). Suspected pneumonia findings on Chest X-ray * Chest x-ray done on 02/16/25 show diffuse airspace disease of the left lung, predominantly involving the left lower zone, could be due to an infection or atelectasis. Questionable left pleural effusion. * Chest x-ray done on 02/17/25 show, small stable left pleural effusion with adjacent lung atelectasis. follow up x-ray from 02/19/25 show no interval change. * Patient started on Zosyn from 02/20/25 * WBC count on (02/23/25) - 14.6 * Will monitor with daily labs. Possible metabolic encephalopathy * Chest x-ray done on 02/17/25 show, small stable left pleural effusion with adjacent lung atelectasis. * Patient was started on Vancomycin and cefepime due to elevated WBC levels and findings suggestive of pneumonia on chest x-ray * Cefepime was discontinued on 02/20/25 because the patient was confused, agitated and combative suspecting the cause of his confusion and was started on Zosyn. * Will monitor with daily labs Hyperglycemia secondary to uncontrolled diabetes POA: * HbA1c 13.9, blood glucose 181 * Following the Endocrinology recommendations. He is on Lantus 15 units, low- dose sliding scale insulin and Jardiance 10 mg * We will monitor blood glucose. Hypokalemia Hypomagnesemia * Potassium 3.8, magnesium 2.0 (02/22/25) * We will replete the electrolytes and monitor. * Keep potassium above 4 and magnesium above 2. * We will start Slow-Mag oral t.i.d. once and will keep monitoring magnesium levels. Supportive measures * GI prophylaxis with Famotidine * DVT prophylaxis with SCD's ATTESTATION BY PHYSICIAN I have seen and examined the patient. I reviewed the documentation, medical decision making, and treatment plan as noted by the resident physician above. I agree with the findings and plan of care. DIANNE STEELE MD, SHAJI MD Feb 23, 2025 14:49
--- NOTE | 2025-02-23 16:03 | NUR ---
UPDATE By phone, aware of plan of care per - prednisone, ankle x-rays, AM labs.
--- NOTE | 2025-02-23 16:35 | PN ---
INFECTIOUS DISEASE FOLLOWUP NOTE SUBJECTIVE: The patient is seen and examined at bedside. No fever or chills. No nausea or vomiting. No headache or dizziness. No chest pain. No palpitations. No orthopnea. No dysuria or hematuria. PHYSICAL EXAMINATION: VITAL SIGNS: Blood pressure 98.3. EYES: No icterus. Pupils equal and reactive. HENT: No oral thrush seen. Moist oral mucosa. NECK: Supple. No JVD or thyromegaly. LUNGS: Good air entry. No rales. No rhonchi. CARDIOVASCULAR: S1 and S2, regular. No murmur heard. ABDOMEN: Full, soft. Bowel sound is present. CENTRAL NERVOUS SYSTEM: Awake, alert, oriented x3. No focal deficits. SKIN: No rashes, no itchiness. LYMPHATIC: No peripheral lymphadenopathy. BACK: No deformity. No pressure ulcer. HEMATOLOGIC: No bleeding or petechial lesion seen. MUSCULOSKELETAL: No joint swelling, erythema or tenderness. ASSESSMENT: A 74-year-old male with multiple problems which include: * Pneumonia. * Respiratory failure * Multivessel coronary artery disease, status post CABG. * Obesity. * Hypertension * Anemia. PLAN: * Continue vancomycin. * Continue Zosyn. * Continue antiplatelet. * Continue physical therapy. * Continue DVT prophylaxis. * Monitor electrolytes. * The patient will be followed closely. TID: [id number] RECEIPT: [id number] MTD
--- NOTE | 2025-02-23 19:53 | PN ---
Endocrinology progress note DOS: 02/23/25 subjective: glucose are improving/stable and s/p CABG procedure Home diabetic regimen: metformin 500 mg bid, Hba1c 13.9% PAST MEDICAL HISTORY: [ Diabetes, hyperlipidemia, NH/coronary artery disease ] PAST SURGICAL HISTORY: [ Cardiac stent, cholecystectomy and left inguinal hernia repair ] PAST SOCIAL HISTORY: [ Patient lives with . Patient admits he drinks two beer yesterday. Patient reports he occasional drinks alcohol denies cigarette and recreational drug use. ] FAMILY HISTORY: [ Diabetes, cardiovascular disease, asthma and cancer ] Coded Allergies: No Known Drug Allergies (Unverified Allergy, Unknown, 08/31/15) ASSESSMENT: Hyperglycemia secondary to uncontrolled diabetes POA Home diabetic regimen: metformin 500 mg bid, Hba1c 13.9% glucose is improving. NSTEMI POA s/p CABG triple vessel disease s/p CABG Hyperlipidemia POA Obesity POA NH/Coronary artery disease with cardiac stent POA PLAN: OFF insulin drip continue lantus 12 units daily. off regular insulin. Continue low dose sliding scale insulin. Monitor glucose q x 6 hourly. Keep glucose less than 180 mg/dl. Patient will need insulin at discharge Vitals/Labs Vital Signs Date Time Temp Pulse Resp B/P (MAP) Pulse Ox O2 Delivery O2 Flow Rate FiO2 02/23/25 19:38 81 18 N/Cannula Low lpm 3.0 32 02/23/25 18:00 145/80 02/23/25 17:30 98 02/23/25 15:56 97.9 Laboratory Tests 02/23/25 04:58 Medications Current Medications Sodium Chloride 1,000 ml @ 0 mls/hr ONCE ONCE IV; Start 02/10/25 at 01:00; Stop 02/10/25 at 00:46; Status DC Sodium Chloride 500 ml @ 0 mls/hr ONCE ONCE IV Last administered on 02/10/25at 00:53; Start 02/10/25 at 01:00; Stop 02/10/25 at 01:01; Status DC Insulin Human Regular 5 unit ONCE ONCE IV Last administered on 02/10/25at 01:30; Start 02/10/25 at 01:30; Stop 02/10/25 at 01:31; Status DC Aspirin 325 mg ONCE ONCE PO Last administered on 02/10/25at 02:32; Start 02/10/25 at 02:30; Stop 02/10/25 at 02:31; Status DC Heparin Sodium/ Dextrose 250 ml @ 0 mls/hr PROTOCOL IV Last administered on 02/10/25at 03:00; Start 02/10/25 at 03:00; Stop 02/10/25 at 17:22; Status DC Heparin Sodium (Porcine) 7,000 unit ONCE ONCE SQ Last administered on 02/10/25at 02:55; Start 02/10/25 at 03:00; Stop 02/10/25 at 03:01; Status DC Acetaminophen 650 mg Q6H PRN PO Last administered on 02/12/25at 17:13; Start 02/10/25 at 05:00; Stop 02/14/25 at 10:17; Status DC Acetaminophen 650 mg Q4H PRN PO; Start 02/10/25 at 05:00; Stop 02/14/25 at 10:05; Status DC Ondansetron HCl 4 mg Q6H PRN IV; Start 02/10/25 at 05:00; Stop 02/14/25 at 10:17; Status DC Nitroglycerin 0.4 mg PROTOCOL PRN SL; Start 02/10/25 at 05:00; Stop 02/14/25 at 09:59; Status DC Famotidine 20 mg DAILY PO Last administered on 02/13/25at 10:53; Start 02/10/25 at 09:00; Stop 02/14/25 at 09:59; Status DC Sodium Chloride 1,000 ml @ 100 mls/hr Q10H IV Last administered on 02/10/25at 14:20; Start 02/10/25 at 05:00; Stop 02/10/25 at 17:22; Status DC Insulin Human Regular INSULIN SLIDING SCAL... Q4H SQ Last administered on 02/10/25at 09:15; Start 02/10/25 at 05:00; Stop 02/10/25 at 11:10; Status DC Dextrose 50 ml AD PRN IV; Start 02/10/25 at 05:00; Stop 02/14/25 at 10:17; Status DC Glucagon 1 mg AD PRN IM; Start 02/10/25 at 05:00; Stop 02/14/25 at 10:17; Status DC Magnesium Sulfate 50 ml @ 0 mls/hr PROTOCOL PRN IV Last administered on 02/12/25at 07:13; Start 02/10/25 at 05:00; Stop 02/14/25 at 10:17; Status DC Potassium Chloride 100 ml @ 100 mls/hr AD PRN IV Last administered on 02/15/25at 05:43; Start 02/10/25 at 05:00; Stop 02/15/25 at 06:27; Status DC Potassium Chloride 20 meq AD PRN PO Last administered on 02/22/25at 06:27; Start 02/10/25 at 05:00; Stop 03/12/25 at 04:59 Potassium Chloride 20 meq AD PRN PO Last administered on 02/18/25at 20:18; Start 02/10/25 at 05:00; Stop 03/12/25 at 04:59 Aspirin 81 mg DAILY PO Last administered on 02/23/25at 09:48; Start 02/10/25 at 09:00; Stop 03/12/25 at 08:59 Insulin Human Regular INSULIN SLIDING SCAL... Q6H6 SQ Last administered on 02/11/25at 17:29; Start 02/10/25 at 12:00; Stop 02/14/25 at 09:59; Status DC Clopidogrel Bisulfate 600 mg ONCE PO Last administered on 02/10/25at 14:19; Start 02/10/25 at 14:00; Stop 02/10/25 at 17:22; Status DC Aspirin 325 mg ONCE PO Last administered on 02/10/25at 14:32; Start 02/10/25 at 14:30; Stop 02/10/25 at 17:22; Status DC Sacubitril/ Valsartan 0.5 each BID PO Last administered on 02/13/25at 21:11; Start 02/10/25 at 21:00; Stop 02/14/25 at 09:59; Status DC Empaglifozin 10 mg DAILY PO Last administered on 02/13/25at 10:52; Start 02/10/25 at 14:30; Stop 02/14/25 at 09:59; Status DC Spironolactone 25 mg DAILY PO Last administered on 02/13/25at 10:52; Start 02/10/25 at 14:30; Stop 02/14/25 at 09:59; Status DC Furosemide 20 mg ONCE IV Last administered on 02/10/25at 17:00; Start 02/10/25 at 17:00; Stop 02/10/25 at 21:00; Status DC Furosemide 20 mg ONCE IV; Start 02/11/25 at 09:00; Stop 02/11/25 at 07:43; Status DC Lidocaine HCl 20 ml STK-MED ONCE .ROUTE; Start 02/10/25 at 15:22; Stop 02/10/25 at 15:23; Status DC Iohexol 35,000 mg STK-MED ONCE IV; Start 02/10/25 at 15:22; Stop 02/10/25 at 15:23; Status DC Iohexol 50 ml STK-MED ONCE IV; Start 02/10/25 at 15:22; Stop 02/10/25 at 15:23; Status DC Heparin Sodium (Porcine) 10,000 unit STK-MED ONCE .ROUTE; Start 02/10/25 at 15:23; Stop 02/10/25 at 15:23; Status DC Heparin Sodium/ Sodium Chloride 1,000 ml @ As Directed STK-MED ONCE IV; Start 02/10/25 at 15:23; Stop 02/10/25 at 15:23; Status DC Nitroglycerin 50 mg STK-MED ONCE .ROUTE; Start 02/10/25 at 15:23; Stop 02/10/25 at 15:23; Status DC Heparin Sodium/ Sodium Chloride 500 ml @ As Directed STK-MED ONCE IV; Start 02/10/25 at 15:35; Stop 02/10/25 at 15:35; Status DC Fentanyl Citrate 100 mcg STK-MED ONCE .ROUTE; Start 02/10/25 at 15:39; Stop 02/10/25 at 15:40; Status DC Midazolam HCl 2 mg STK-MED ONCE .ROUTE; Start 02/10/25 at 15:40; Stop 02/10/25 at 15:40; Status DC Bivalirudin 250 mg STK-MED ONCE IV; Start 02/10/25 at 16:15; Stop 02/10/25 at 16:15; Status DC Heparin Sodium (Porcine) 7,000 unit ONCE ONCE IV Last administered on 02/11/25at 05:46; Start 02/11/25 at 05:30; Stop 02/11/25 at 05:31; Status DC Heparin Sodium/ Dextrose 250 ml @ 0 mls/hr Q6H IV Last administered on 02/13/25at 13:01; Start 02/11/25 at 06:30; Stop 02/14/25 at 09:59; Status DC Clopidogrel Bisulfate 75 mg DAILY PO; Start 02/11/25 at 09:00; Stop 02/11/25 at 07:28; Status DC Insulin Glargine 15 units DAILY08 SQ Last administered on 02/12/25at 08:54; Start 02/11/25 at 08:00; Stop 02/13/25 at 05:24; Status DC Furosemide 20 mg DAILY PO Last administered on 02/13/25at 10:52; Start 02/11/25 at 09:00; Stop 02/14/25 at 09:59; Status DC Insulin Human Regular 3 unit TIDAC SQ Last administered on 02/12/25at 16:31; Start 02/12/25 at 07:30; Stop 02/14/25 at 09:59; Status DC Metoprolol Tartrate 12.5 mg BID PO Last administered on 02/14/25at 06:44; Start 02/12/25 at 09:00; Stop 02/14/25 at 09:59; Status DC Potassium Chloride 40 meq BID ONCE PO; Start 02/12/25 at 21:00; Stop 02/12/25 at 21:01; Status DC Magnesium Chloride 64 mg Q8H6 ONCE PO; Start 02/12/25 at 14:00; Stop 02/12/25 at 14:01; Status DC Heparin Sodium (Porcine) *calculation based on ACTUAL B... AD PRN IV Last administered on 02/12/25at 20:16; Start 02/12/25 at 21:00; Stop 02/14/25 at 09:59; Status DC Insulin Glargine 12 units DAILY08 SQ Last administered on 02/13/25at 10:51; Start 02/13/25 at 08:00; Stop 02/14/25 at 09:59; Status DC Cefazolin Sodium 2 gm ONCALL IVP Last administered on 02/14/25at 08:50; Start 02/13/25 at 20:00; Stop 02/14/25 at 18:51; Status DC Epinephrine HCl 10 mg/Sodium Chloride 250 ml @ 0 mls/hr AD PRN IV Last administered on 02/20/25at 17:32; Start 02/14/25 at 06:30; Stop 03/16/25 at 06:29 Norepinephrine Bitartrate 250 ml @ 0 mls/hr AD PRN IV Last administered on 02/17/25at 01:06; Start 02/14/25 at 06:30; Stop 03/16/25 at 06:29 Aminocaproic Acid 79989 mg/Sodium Chloride 480 ml @ 0 mls/hr AD PRN IV; Start 02/14/25 at 06:30; Stop 02/23/25 at 11:52; Status DC Epinephrine HCl 10 mg/Sodium Chloride 250 ml @ 0 mls/hr AD PRN IV; Start 02/14/25 at 07:00; Stop 02/14/25 at 06:51; Status DC Norepinephrine Bitartrate 250 ml @ 0 mls/hr AD PRN IV; Start 02/14/25 at 07:00; Stop 02/14/25 at 06:51; Status DC Aminocaproic Acid 70867 mg/Sodium Chloride 480 ml @ 0 mls/hr AD PRN IV; Start 02/14/25 at 07:00; Stop 02/14/25 at 06:51; Status DC Cefazolin Sodium 2 gm STK-MED ONCE .ROUTE; Start 02/14/25 at 06:53; Stop 02/14/25 at 06:53; Status DC Nitroglycerin/ Dextrose 1 ml @ As Directed STK-MED ONCE .ROUTE; Start 02/14/25 at 07:00; Stop 02/14/25 at 07:00; Status DC Cefazolin Sodium 1 gm STK-MED ONCE .ROUTE Last administered on 02/14/25at 10:09; Start 02/14/25 at 07:37; Stop 02/14/25 at 07:38; Status DC Heparin Sodium/ Sodium Chloride 500 ml @ As Directed STK-MED ONCE IV; Start 02/14/25 at 07:38; Stop 02/14/25 at 07:38; Status DC Papaverine HCl 60 mg STK-MED ONCE .ROUTE Last administered on 02/14/25at 10:10; Start 02/14/25 at 07:38; Stop 02/14/25 at 07:38; Status DC Midazolam HCl 2 mg STK-MED ONCE .ROUTE; Start 02/14/25 at 08:14; Stop 02/14/25 at 08:14; Status DC Ketamine HCl 500 mg STK-MED ONCE IJ; Start 02/14/25 at 08:16; Stop 02/14/25 at 08:16; Status DC Protamine Sulfate 250 mg STK-MED ONCE IV; Start 02/14/25 at 08:17; Stop 02/14/25 at 08:17; Status DC Lidocaine HCl 100 mg STK-MED ONCE .ROUTE; Start 02/14/25 at 08:17; Stop 02/14/25 at 08:17; Status DC Heparin Sodium (Porcine) 10,000 unit STK-MED ONCE .ROUTE; Start 02/14/25 at 08:17; Stop 02/14/25 at 08:17; Status DC Epinephrine HCl 1 mg STK-MED ONCE .ROUTE; Start 02/14/25 at 08:17; Stop 02/14/25 at 08:17; Status DC Sodium Bicarbonate 200 ml @ As Directed STK-MED ONCE .ROUTE; Start 02/14/25 at 08:17; Stop 02/14/25 at 08:17; Status DC Norepinephrine Bitartrate 4 mg STK-MED ONCE IV; Start 02/14/25 at 08:17; Stop 02/14/25 at 08:17; Status DC Propofol 200 mg STK-MED ONCE IV; Start 02/14/25 at 08:19; Stop 02/14/25 at 08:19; Status DC Fentanyl Citrate 1,000 mcg STK-MED ONCE IJ; Start 02/14/25 at 08:19; Stop 02/14/25 at 08:19; Status DC Midazolam HCl 2 mg STK-MED ONCE .ROUTE; Start 02/14/25 at 08:20; Stop 02/14/25 at 08:20; Status DC Rocuronium [place] 50 mg STK-MED ONCE .ROUTE; Start 02/14/25 at 08:20; Stop 02/14/25 at 08:20; Status DC Acetaminophen 1,000 mg Q6H6 IV Last administered on 02/15/25at 12:14; Start 02/14/25 at 14:00; Stop 02/15/25 at 13:59; Status DC Aspirin 81 mg ONCE ONCE NG Last administered on 02/14/25at 13:56; Start 02/14/25 at 14:00; Stop 02/14/25 at 14:01; Status DC Docusate Sodium 100 mg BID PO Last administered on 02/23/25at 09:48; Start 02/14/25 at 21:00; Stop 03/16/25 at 20:59 Lactulose 20 gm BID PRN PO; Start 02/14/25 at 10:00; Stop 03/16/25 at 09:59 Furosemide 20 mg Q12H PO Last administered on 02/16/25at 08:19; Start 02/16/25 at 09:00; Stop 02/16/25 at 10:21; Status DC Furosemide 20 mg Q12H IV Last administered on 02/15/25at 20:16; Start 02/15/25 at 09:00; Stop 02/16/25 at 08:59; Status DC Atorvastatin Calcium 40 mg HS PO Last administered on 02/22/25at 20:39; Start 02/14/25 at 21:00; Stop 03/16/25 at 20:59 Enoxaparin Sodium 30 mg DAILY SQ Last administered on 02/23/25at 10:12; Start 02/17/25 at 09:00; Stop 03/19/25 at 08:59 Metoprolol Tartrate 12.5 mg BID PO; Start 02/16/25 at 09:00; Stop 02/20/25 at 09:01; Status DC Magnesium Hydroxide 30 ml DAILY PRN PO; Start 02/14/25 at 10:00; Stop 03/16/25 at 09:59 Dexmedetomidine/ Sodium Chloride 400 mcg PROTOCOL IV; Start 02/14/25 at 10:00; Stop 02/15/25 at 09:59; Status DC Acetaminophen 650 mg Q6H PRN PO; Start 02/14/25 at 10:00; Stop 03/16/25 at 09:59 Heparin Sodium (Porcine) 10,000 unit STK-MED ONCE .ROUTE; Start 02/14/25 at 10:00; Stop 02/14/25 at 10:00; Status DC Sodium Chloride 1,000 ml @ 10 mls/hr ONCE IV; Start 02/14/25 at 10:00; Stop 02/15/25 at 09:59; Status DC Sodium Chloride 10 ml Q8H PRN IVP; Start 02/14/25 at 10:00; Stop 03/16/25 at 09:59 Morphine Sulfate 0.5 mg Q2H PRN IV; Start 02/14/25 at 10:00; Stop 02/15/25 at 09:59; Status DC Morphine Sulfate 1 mg Q2H PRN IV Last administered on 02/14/25at 14:23; Start 02/14/25 at 10:30; Stop 02/19/25 at 13:29; Status DC Acetaminophen 650 mg Q4H PRN RC; Start 02/14/25 at 10:00; Stop 02/23/25 at 11:52; Status DC Ondansetron HCl 4 mg Q6H PRN IV; Start 02/14/25 at 10:00; Stop 03/16/25 at 09:59 Sodium Chloride 500 ml @ 0 mls/hr AD IV; Start 02/14/25 at 10:00; Stop 03/16/25 at 09:59 Nitroglycerin/ Dextrose 0 ml @ 0 mls/hr AD IV; Start 02/14/25 at 10:00; Stop 02/17/25 at 09:59; Status DC Propofol 100 ml @ 0 mls/hr AD PRN IV; Start 02/14/25 at 10:00; Stop 02/18/25 at 09:59; Status DC Norepinephrine Bitartrate 8 mg/ Dextrose 250 ml @ 0 mls/hr AD PRN IV; Start 02/14/25 at 10:00; Stop 02/14/25 at 10:14; Status DC Epinephrine HCl 10 mg/Sodium Chloride 250 ml @ 0 mls/hr AD PRN IV; Start 02/14/25 at 10:00; Stop 02/14/25 at 10:14; Status DC Aminocaproic Acid 05459 mg/Sodium Chloride 310 ml @ 25 mls/hr AD IV; Start 02/14/25 at 10:00; Stop 02/14/25 at 10:19; Status DC Calcium Gluconate 1 gm/Sodium Chloride 60 ml @ 200 mls/hr AD PRN IV Last administered on 02/21/25at 08:36; Start 02/14/25 at 10:00; Stop 03/16/25 at 09:59 Magnesium Sulfate 50 ml @ 12.5 mls/hr AD PRN IV Last administered on 02/21/25at 16:43; Start 02/14/25 at 10:00; Stop 03/16/25 at 09:59 Potassium Chloride 100 ml @ 100 mls/hr AD PRN IV Last administered on 02/21/25at 16:43; Start 02/14/25 at 10:00; Stop 03/16/25 at 09:59 Potassium Phosphate 250 ml @ 42 mls/hr AD PRN IV; Start 02/14/25 at 10:00; Stop 03/16/25 at 09:59 Albumin Human 250 ml @ 0 mls/hr AD PRN IV Last administered on 02/14/25at 14:42; Start 02/14/25 at 10:00; Stop 02/14/25 at 14:42; Status DC Acetaminophen 650 mg Q4H PRN PO; Start 02/14/25 at 10:00; Stop 03/16/25 at 09:59 Insulin Human Regular 100 unit/ Sodium Chloride 100 ml @ 0 mls/hr AD IV Last administered on 02/15/25at 06:30; Start 02/14/25 at 10:00; Stop 02/16/25 at 09:59; Status DC Cefazolin Sodium 2 gm Q8H IVPB Last administered on 02/15/25at 06:25; Start 02/14/25 at 15:00; Stop 02/15/25 at 07:01; Status DC Tramadol HCl 25 mg Q6H PRN PO; Start 02/14/25 at 10:00; Stop 02/19/25 at 09:59; Status DC Tramadol HCl 50 mg Q6H PRN PO; Start 02/14/25 at 10:00; Stop 02/19/25 at 09:59; Status DC Famotidine 20 mg BID IV Last administered on 02/15/25at 20:15; Start 02/14/25 at 21:00; Stop 02/16/25 at 07:58; Status DC Sodium Bicarbonate 50 meq AD PRN IV Last administered on 02/16/25at 15:25; Start 02/14/25 at 10:00; Stop 02/17/25 at 09:59; Status DC Dextrose 50 ml AD PRN IV; Start 02/14/25 at 10:00; Stop 03/16/25 at 09:59 Glucagon 1 mg AD PRN IM; Start 02/14/25 at 10:00; Stop 03/16/25 at 09:59 Dobutamine HCl 250 mg STK-MED ONCE .ROUTE; Start 02/14/25 at 10:28; Stop 02/14/25 at 10:28; Status DC Sodium Bicarbonate 50 ml @ As Directed STK-MED ONCE .ROUTE; Start 02/14/25 at 10:52; Stop 02/14/25 at 10:52; Status DC Sodium Bicarbonate 200 ml @ As Directed STK-MED ONCE .ROUTE; Start 02/14/25 at 10:53; Stop 02/14/25 at 10:53; Status DC Vasopressin 20 units STK-MED ONCE .ROUTE; Start 02/14/25 at 11:51; Stop 02/14/25 at 11:51; Status DC Rocuronium [place] 50 mg STK-MED ONCE .ROUTE; Start 02/14/25 at 12:14; Stop 02/14/25 at 12:14; Status DC Sodium Bicarbonate 100 ml @ As Directed STK-MED ONCE .ROUTE; Start 02/14/25 at 12:16; Stop 02/14/25 at 12:16; Status DC Vasopressin 40 units/Sodium Chloride 40 ml @ 0 mls/hr PROTOCOL IV Last administered on 02/14/25at 22:11; Start 02/14/25 at 13:00; Stop 03/16/25 at 12:59 Albumin Human 250 ml @ 0 mls/hr AD IV Last administered on 02/18/25at 10:27; Start 02/14/25 at 15:30; Stop 02/18/25 at 10:40; Status DC Calcium Gluconate 2 gm/Sodium Chloride 100 ml @ 0 mls/hr ONCE ONCE IV Last administered on 02/14/25at 16:15; Start 02/14/25 at 16:30; Stop 02/14/25 at 16:31; Status DC Pharmacy Profile Note 1 each ONCE MISC; Start 02/14/25 at 18:00; Stop 02/14/25 at 18:27; Status DC Sodium Bicarbonate 25 meq/Dextrose 1,025 ml @ 0 mls/hr Q0M IV Last administered on 02/18/25at 13:03; Start 02/14/25 at 18:00; Stop 03/16/25 at 17:59 Famotidine 20 mg BID PO Last administered on 02/16/25at 20:03; Start 02/16/25 at 09:00; Stop 02/17/25 at 07:09; Status DC Insulin Human Regular INSULIN SLIDING SCAL... ACHS SQ Last administered on 02/22/25at 11:55; Start 02/16/25 at 11:30; Stop 03/18/25 at 11:29 Cefepime HCl 1 gm Q12H IVPB Last administered on 02/19/25at 22:54; Start 02/16/25 at 10:30; Stop 02/20/25 at 08:16; Status DC Furosemide 100 mg/ Sodium Chloride 100 ml @ 0 mls/hr PROTOCOL IV Last administered on 02/19/25at 11:35; Start 02/16/25 at 10:30; Stop 02/20/25 at 09:01; Status DC Vancomycin HCl 500 ml @ 250 mls/hr ONCE ONCE IV Last administered on 02/16/25at 11:39; Start 02/16/25 at 12:00; Stop 02/16/25 at 13:59; Status DC Sodium Chloride 4 ml STK-MED ONCE IH Last administered on 02/16/25at 10:53; Start 02/16/25 at 10:44; Stop 02/16/25 at 10:44; Status DC Sodium Chloride 4 ml STK-MED ONCE IH Last administered on 02/16/25at 14:33; Start 02/16/25 at 14:26; Stop 02/16/25 at 14:26; Status DC Sodium Chloride 4 ml STK-MED ONCE IH Last administered on 02/16/25at 19:16; Start 02/16/25 at 18:32; Stop 02/16/25 at 18:32; Status DC Famotidine 20 mg DAILY PO Last administered on 02/23/25at 09:48; Start 02/17/25 at 09:00; Stop 03/18/25 at 08:59 Latanoprost 1 DROP FOR EACH EYE HS OP Last administered on 02/22/25at 21:17; Start 02/17/25 at 21:00; Stop 03/19/25 at 20:59 Home Med (Brimonidine-Timolol 0.2%/0.5% EYE DROPS) DAILY OP Last administered on 02/23/25at 09:50; Start 02/18/25 at 09:00; Stop 03/20/25 at 08:59 Albumin Human 250 ml @ 0 mls/hr AD IV; Start 02/18/25 at 10:30; Stop 02/20/25 at 09:03; Status DC Vancomycin HCl 1 each AD IV; Start 02/18/25 at 11:00; Stop 03/04/25 at 10:59 Vancomycin HCl 250 ml @ 125 mls/hr Q12H IV Last administered on 02/19/25at 11:20; Start 02/18/25 at 11:30; Stop 02/21/25 at 05:33; Status DC Potassium Chloride 20 meq BID PO Last administered on 02/23/25at 09:51; Start 02/19/25 at 10:30; Stop 03/21/25 at 10:29 Dexmedetomidine/ Sodium Chloride 400 mcg STK-MED ONCE IV Last administered on 02/20/25at 07:08; Start 02/20/25 at 07:00; Stop 02/20/25 at 07:00; Status DC Dexmedetomidine/ Sodium Chloride 400 mcg PROTOCOL IV Last administered on 02/22/25at 05:51; Start 02/20/25 at 07:30; Stop 02/22/25 at 15:01; Status DC Carvedilol 3.125 mg BID PO; Start 02/20/25 at 21:00; Stop 03/22/25 at 20:59; Status Hold Spironolactone 25 mg DAILY PO Last administered on 02/23/25at 09:48; Start 02/20/25 at 09:00; Stop 03/22/25 at 08:59 Empaglifozin 10 mg DAILY PO Last administered on 02/22/25at 09:38; Start 02/20/25 at 09:00; Stop 02/22/25 at 15:01; Status DC Albumin Human 50 ml @ 0 mls/hr Q12H9 IV Last administered on 02/23/25at 09:48; Start 02/20/25 at 09:00; Stop 02/25/25 at 08:59 Furosemide 20 mg Q12H IV Last administered on 02/23/25at 09:49; Start 02/20/25 at 09:00; Stop 03/22/25 at 08:59 Pharmacy Profile Note 1 each ONCE MISC; Start 02/20/25 at 11:30; Stop 02/20/25 at 11:19; Status DC Piperacillin Sod/ Tazobactam Sod 50 ml @ 12.5 mls/hr Q8H IVPB Last administered on 02/23/25at 11:58; Start 02/20/25 at 11:30; Stop 03/02/25 at 11:29 Vancomycin HCl 250 ml @ 125 mls/hr Q24H IV Last administered on 02/23/25at 06:28; Start 02/21/25 at 06:00; Stop 02/28/25 at 11:29 Insulin Glargine 10 units DAILY SQ Last administered on 02/22/25at 11:54; Start 02/21/25 at 09:00; Stop 02/22/25 at 19:17; Status DC Calcium Gluconate 1 gm STK-MED ONCE .ROUTE; Start 02/21/25 at 08:34; Stop 02/21/25 at 08:34; Status DC Etomidate 20 mg STK-MED ONCE .ROUTE; Start 02/21/25 at 12:27; Stop 02/21/25 at 12:28; Status DC Fentanyl Citrate 100 mcg STK-MED ONCE .ROUTE; Start 02/21/25 at 12:30; Stop 02/21/25 at 12:30; Status DC Rocuronium [place] 50 mg STK-MED ONCE .ROUTE; Start 02/21/25 at 12:30; Stop 02/21/25 at 12:30; Status DC Lidocaine HCl 20 ml STK-MED ONCE .ROUTE; Start 02/21/25 at 12:31; Stop 02/21/25 at 12:31; Status DC Cefazolin Sodium 1 gm STK-MED ONCE .ROUTE; Start 02/21/25 at 12:31; Stop 02/21/25 at 12:32; Status DC Bupivacaine HCl 2.5 mg STK-MED ONCE IJ; Start 02/21/25 at 12:32; Stop 02/21/25 at 12:32; Status DC Propofol 200 mg STK-MED ONCE IV; Start 02/21/25 at 12:35; Stop 02/21/25 at 12:35; Status DC Lidocaine HCl 100 mg STK-MED ONCE .ROUTE; Start 02/21/25 at 12:46; Stop 02/21/25 at 12:46; Status DC Cefazolin Sodium 1 gm STK-MED ONCE .ROUTE; Start 02/21/25 at 12:51; Stop 02/21/25 at 12:51; Status DC Rocuronium [place] 50 mg STK-MED ONCE .ROUTE; Start 02/21/25 at 13:03; Stop 02/21/25 at 13:03; Status DC Cefazolin Sodium 2 gm STK-MED ONCE IVPB Last administered on 02/21/25at 12:53; Start 02/21/25 at 12:53; Stop 02/21/25 at 14:14; Status DC Lidocaine HCl 20 ml STK-MED ONCE INJ Last administered on 02/21/25at 12:18; Start 02/21/25 at 12:18; Stop 02/21/25 at 14:14; Status DC Bupivacaine HCl 75 mg STK-MED ONCE IJ Last administered on 02/21/25at 12:18; Start 02/21/25 at 12:18; Stop 02/21/25 at 14:14; Status DC Insulin Glargine 12 units DAILY SQ Last administered on 02/23/25at 10:14; Start 02/23/25 at 09:00; Stop 03/25/25 at 08:59 Dexmedetomidine/ Sodium Chloride 400 mcg PROTOCOL IV Last administered on 02/23/25at 00:17; Start 02/23/25 at 00:00; Stop 03/25/25 at 00:00 Midodrine 10 mg TID PO Last administered on 02/23/25at 14:10; Start 02/23/25 at 14:00; Stop 03/25/25 at 13:59 Prednisone 20 mg DAILY PO Last administered on 02/23/25at 14:10; Start 02/23/25 at 12:30; Stop 02/26/25 at 13:00 EUGENE ZARATE MD Feb 23, 2025 19:53
--- NOTE | 2025-02-23 19:58 | PN ---
[facility] PROGRESS NOTE Date Patient Seen: Feb 23, 2025 Time of Visit: 19:55 Supervising Physician: MARGARITA RINALDI MD Primary Care Physician: KELLEY ENCINAS MD Outpatient Specialists: Inpatient Consults: BIS PROBLEM LIST: CAD, status post CABG x3 Impella and a intra-aortic balloon pump support Type 2 diabetes Congested heart failure EF 20% Obstructive coronary artery disease Atherosclerosis Primary hypertension Morbid obesity; BMI 36 Cardiogenic shock INTERVAL HISTORY: Remains on epinephrine drip as per cardiovascular surgery Systolic BP in the 100's On room air, chest tubes are out Has De Jesus, urine is clear Patient is pleasantly confused Has pain and swelling of the right ankle REVIEW OF SYSTEMS: 12 point ROS reviewed with patient. Pertinent positives mentioned above. Otherwise negative. PHYSICAL EXAM: GENERAL: Patient comfortable in bed, HEENT: EOMI, Sclera non icteric, moist mucosa NECK: Supple, no JVD, trachea midline LUNGS: Clear breath sounds bilaterally. No wheezes HEART: Regular rate and rhythm. Normal S1 and S2, without murmurs sternum wound looks clean, no bleeding or discharge. ABD: Abdomen soft, nontender. Bowel sounds present EXT: Right ankle edema, hyperemia, tenderness NEURO: Awake alert and oriented Vital Signs (last 8hr) Date Time Temp Pulse Resp B/P (MAP) Pulse Ox O2 Delivery O2 Flow Rate FiO2 02/23/25 19:38 81 18 N/Cannula Low lpm 3.0 32 02/23/25 18:00 90 145/80 Room Air 02/23/25 17:30 81 25 121/46 98 Room Air 02/23/25 17:00 83 50 117/50 99 Room Air 02/23/25 16:30 80 21 111/41 97 Room Air 02/23/25 16:15 80 20 110/39 98 Room Air 02/23/25 16:05 78 20 107/49 98 Room Air 02/23/25 15:56 97.9 02/23/25 15:51 98 Room Air* 0 21 02/23/25 15:15 79 115/42 (66) 02/23/25 15:00 79 21 114/42 (66) 98 121/65 (83) 02/23/25 14:45 80 115/43 (67) 02/23/25 14:31 80 115/42 (66) 02/23/25 14:15 83 117/46 (69) 11/27/25 14:00 81 20 115/41 (65) 98 115/63 (80) 02/23/25 13:30 80 113/41 (65) 02/23/25 13:15 80 115/43 (67) 02/23/25 13:00 79 21 125/49 (74) 99 128/67 (87) 02/23/25 12:45 79 114/47 (69) 02/23/25 12:30 80 133/53 (79) 02/23/25 12:00 78 19 114/44 (67) 98 116/68 (84) LABS: Hematology Labs: Test 02/23/25 04:58 Range/Units White Blood Count 14.6 H 4.8-10.8 K/uL Red Blood Count 2.81 L 4.50-6.20 MIL/uL Hemoglobin 8.2 L 14.0-18.0 g/dL Hematocrit 25.3 L 42-54 % Mean Corpuscular Volume 90.0 79-99 fL Mean Corpuscular Hemoglobin 29.2 27.0-33.0 pg Mean Corpuscular Hemoglobin Concent 32.4 32.0-36.0 g/dL Red Cell Distribution Width 15.0 11.0-15.5 % Platelet Count 345 130-400 K/uL Mean Platelet Volume 10.4 7.5-10.5 fL Immature Granulocyte % (Auto) 4.7 H 0-1 % Neutrophils (%) (Auto) 66.0 40.0-77.0 % Lymphocytes (%) (Auto) 18.4 L 21.0-51.0 % Monocytes (%) (Auto) 8.9 3.0-13.0 % Eosinophils (%) (Auto) 1.5 0.0-8.0 % Basophils (%) (Auto) 0.5 0.0-5.0 % Neutrophils # (Auto) 9.7 H 1.8-7.7 K/uL Lymphocytes # (Auto) 2.7 1.0-4.8 K/uL Monocytes # (Auto) 1.3 H 0.1-1.0 K/uL Eosinophils # (Auto) 0.22 0.00-0.70 K/uL Basophils # (Auto) 0.08 0.00-0.20 K/uL Absolute Immature Granulocyte (auto 0.68 0-1 K/uL Nucleated Red Blood Cells 0.2 H 0.0-0.19 % Chemistry Labs: Test 02/23/25 15:53 02/23/25 04:58 02/22/25 04:11 Range/Units Whole Blood Glucose 119 H 70-110 MG/DL Bedside Glucose Comment Notified Nurse Sodium Level 135 L 136-145 mmol/L Potassium Level 3.8 3.5-5.1 mmol/L Chloride Level 98 L 101-111 mmol/L Carbon Dioxide Level 22 21-32 mmol/L Blood Urea Nitrogen 13 7-18 mg/dL Creatinine 0.8 0.5-1.3 mg/dL Glomerular Filtration Rate Calc 92 >90 mL/min Random Glucose 116 H 70-105 mg/dL Total Calcium 7.8 L 8.5-10.1 mg/dL Total Bilirubin 1.9 H 0.2-1.0 mg/dL Aspartate Amino Transf (AST/SGOT) 23 10-37 U/L Alanine Aminotransferase (ALT/SGPT) 22 12-78 U/L Alkaline Phosphatase 61 50-136 U/L Total Protein 5.9 L 6.0-8.3 g/dL Albumin 3.0 L 3.5-5.0 g/dL Magnesium Level 2.00 1.80-2.40 mg/dL DIAGNOSTICS / RADIOLOGY RESULTS: [ ] PLAN Suspected gout of the right ankle Get right ankle x-ray Start oral prednisone 20 mg daily NEURO: Minimize central acting medications as possible. Fall Precautions. Well lighted room through the day and minimize interruptions through the night to prevent acute delirium. PULMONARY: Supplemental 02 as needed Titrate Fio2 to keep Spo2 > or = 90% DuoNebs and CPT as needed IS hourly while awake for pulmonary hygiene Out of bed to chair as tolerated VAP Bundle Vent/BIPAP Settings: [ ] Driving pressure: [ ] P Plat: [ ] Static C: [ ] Static R: [ ] P/F Ratio: [ ] CARDIOVASCULAR: Follow hemodynamics. Titrate vasopressor to keep MAP >65 or systolic blood pressure >95mmHg DIPS: [ ] LINES: [ ] GI & NUTRITION: Continue nutritional support Aspirations precautions Prokinetic agents and laxatives as needed KIDNEYS & ELECTROLYTES: Strict monitoring of intake and output Daily weights Avoid nephrotoxic agents Monitor electrolytes and replace as needed Goal urine output of 30mL/hr or 0.5mL/kg/hr Urine output: [ ] Fluid Balance: [ ] ENDOCRINE: Maintain blood glucose between 100-180 at all times. Insulin sliding scale for blood glucose management INFECTIOUS DISEASE: Trend temperature. Caldwell-culture if febrile. Micro: [ ] Antibiotics: [ ] HEMATOLOGY & COAGULATION: Monitor H&H. Keep Hgb > 7 Transfuse 1 unit of PRBC for Hgb < 7 Transfuse 1 pack of platelets of platelets < 20, 000 Watch for any signs and symptoms of bleeding SKIN: Pressure ulcer prevention per facility protocol Rehab: PT/OT Prophylaxis: GI: [Protonix ] DVT: [Lovenox ] Code Status: Full Resuscitation Disposition: [ Continue medical management in the ICU] Total critical care time 35 minutes I personally scribed for MARGARITA RINALDI MD ([place]) on 02/23/25 at 19:58. Electronically submitted by Jason Garcia ([facility]). MARGARITA RINALDI MD Feb 23, 2025 19:58
--- NOTE | 2025-02-23 21:52 | HMCIMG ---
STUDY: X-RAY OF THE LEFT ANKLE, 2 VIEWS HISTORY: Left ankle pain. TECHNIQUE: Two views of the left ankle are submitted for interpretation. COMPARISON: None provided. FINDINGS: Bones and joints: Ankle mortise is symmetric and well aligned. No acute fracture or dislocation is identified. A tiny dorsal calcaneal spur is present, compatible with mild enthesopathic change. Joint spaces are preserved. Soft tissues: No focal soft tissue swelling, gas, or radiopaque foreign body. Vessels: Atherosclerotic calcifications are noted along the course of the anterior tibial and posterior tibial arteries at the level of the ankle, compatible with peripheral arterial atherosclerotic disease. IMPRESSION: * No radiographic evidence of acute fracture or dislocation of the left ankle. * Tiny dorsal calcaneal spur, compatible with mild enthesopathic/degenerative change. * Atherosclerotic calcification of the anterior tibial and posterior tibial arteries at the level of the ankle, in keeping with peripheral arterial atherosclerotic disease; correlate with vascular risk factors and symptoms of peripheral arterial disease. /[place]
--- NOTE | 2025-02-23 22:34 | HMCIMG ---
STUDY: BILATERAL LOWER EXTREMITY VENOUS DOPPLER ULTRASOUND CLINICAL INFORMATION: Bilateral lower extremity pain and swelling. TECHNIQUE: Duplex sonography of both lower extremity venous systems was performed using june-scale imaging, color Doppler, and spectral Doppler analysis with compression maneuvers and augmentation where appropriate. COMPARISON: None provided. FINDINGS: RIGHT LOWER EXTREMITY: The common femoral, femoral, popliteal, and visualized calf veins are patent and fully compressible throughout their course. No intraluminal echogenic thrombus is identified. Color Doppler demonstrates normal venous flow, and spectral Doppler shows appropriate phasicity and augmentation where assessed. The visualized segments of the great saphenous vein are patent and compressible without evidence of superficial thrombophlebitis. No focal perivenous fluid collection is seen. LEFT LOWER EXTREMITY: The common femoral, femoral, popliteal, and visualized calf veins are patent and fully compressible. No intraluminal thrombus is demonstrated. Color Doppler confirms normal venous filling, and spectral Doppler shows normal phasic flow with appropriate augmentation. The visualized portions of the great saphenous vein are patent and compressible without superficial thrombus. No perivenous fluid collection or focal soft tissue abnormality is identified. IMPRESSION: * No sonographic evidence of deep venous thrombosis in either lower extremity from the common femoral veins through the popliteal and visualized calf veins. * No superficial venous thrombosis or significant perivenous fluid collection is identified on this examination. /[place]
[2025-02-24] VITALS (44 sets, daily range): BP systolic 91–127; BP diastolic 36–72; PULSE 70–84; RESP 17–35; TEMP 98.2–98.8; O2SAT 97–100
[2025-02-24 05:12] LABS: NUCLEATED RED BLOOD CELLS 0.0 % (0.0-0.19); PLATELET COUNT (AUTO) 367.0 K/uL (130-400); RED BLOOD CELL COUNT(AUTO) 2.91 MIL/uL (4.50-6.20); RED CELL DISTRIBUTION WIDTH 15.8 % (11.0-15.5); WHITE BLOOD COUNT (AUTO) 15.8 K/uL (4.8-10.8)
[2025-02-24 05:41] LABS: ASPARTATE AMINOTRANSFERASE 25.0 U/L (10-37); CREATININE 1.0 mg/dL (0.5-1.3); GLOMERULAR FILTR. RATE CALC 78.0 mL/min (>90); GLUCOSE,RANDOM 112.0 mg/dL (70-105); PHOSPHORUS 2.9 mg/dL (2.5-4.9); SODIUM SERUM 134.0 mmol/L (136-145); TOTAL PROTEIN, SERUM 5.9 g/dL (6.0-8.3); UREA NITROGEN, BLOOD 17.0 mg/dL (7-18); VANCOMYCIN TROUGH 5.9 UG/ML (10.0-20.0)
[2025-02-24] MEDS: VANCOMYCIN 1.75 GM/250 ML BAG 250 ML IV SCH (06:26)
[2025-02-24] MEDS: EMPAGLIFLOZIN 10MG TABLET PO SCH (08:47)
--- NOTE | 2025-02-24 10:17 | PN ---
SUBJECTIVE: The patient is postop day #10 from an Impella supported coronary bypass grafting. The patient in the last 24 hours has been weaned off his epinephrine drip. His mentation is also markedly cleared from a couple of days ago where it appeared he had cefepime-induced delirium. He is also eating better. OBJECTIVE: GENERAL: In general, he is sitting upright in bed, eating his breakfast. He is accompanied by his . He is alert and orientated x3 and is conversational. VITAL SIGNS: Pulse is 78. Blood pressure is 109/39. His respiration is 21. Oxygen saturation is 97%. HEENT: Exam reveals normocephalic, atraumatic. Extraocular movements are intact. CHEST: His sternal wound is bandaged. His chest tubes have been removed. HEART: S1 and S2 and currently regular. LUNGS: His lungs are unlabored at rest. ABDOMEN: His abdomen reveals mild obesity with positive bowel sounds. GENITOURINARY: He has a De Jesus catheter in his bladder. EXTREMITIES: He has a left radial arterial line. He has a left upper extremity PICC line. He has SCDs on his lower extremities. IMAGING DATA: His chest x-ray shows good pulmonary vasculature, questionable left effusion. LABORATORY DATA: His white blood cell count is 13.8, BUN 17, and creatinine 1.0. Hemoglobin is 8.6. ASSESSMENT AND PLAN: 1. Status post Impella supported coronary artery bypass grafting. Continue aspirin, Lasix. Resume Coreg now that he is off of epinephrine drip and get patient up into bedside chair. Consult Case Management for eventual transfer to rehab. 2. Hypercholesterolemia. Lipitor at bedtime and low cholesterol, cardiac diet. 3. Deep venous thrombosis prophylaxis. Continue Lovenox subcutaneously daily. TIME SPENT: 30 minutes. Patient is critically ill in the ICU. TID: [id number] RECEIPT: [id number]
--- NOTE | 2025-02-24 11:30 | PN ---
[facility] CARDIOLOGY PROGRESS NOTE Date Patient Seen: Feb 24, 2025 Time of Visit: 11:20 Interval History: No acute events overnight., the patient is assessed at his bedside, denying any cardiac symptoms or anginal equivalents. Overnight urine ACS 1100 mL, chest x- ray with mild congestion. ] Physical Examination: GENERAL: Patient comfortable in bed, HEENT: EOMI, Sclera non icteric, moist mucosa NECK: Supple, no JVD, trachea midline LUNGS: Clear breath sounds bilaterally. No wheezes HEART: Regular rate and rhythm. Normal S1 and S2, without murmurs sternum wound looks clean, no bleeding or discharge. ABD: Abdomen soft, nontender. Bowel sounds present EXT: Right ankle edema, hyperemia, tenderness NEURO: Awake alert and oriented Laboratory: [ ] Hematology Labs: Test 02/24/25 04:59 02/23/25 04:58 Range/Units White Blood Count 15.8 H 4.8-10.8 K/uL Red Blood Count 2.91 L 4.50-6.20 MIL/uL Hemoglobin 8.6 L 14.0-18.0 g/dL Hematocrit 26.0 L 42-54 % Mean Corpuscular Volume 89.3 79-99 fL Mean Corpuscular Hemoglobin 29.6 27.0-33.0 pg Mean Corpuscular Hemoglobin Concent 33.1 32.0-36.0 g/dL Red Cell Distribution Width 15.8 H 11.0-15.5 % Platelet Count 367 130-400 K/uL Mean Platelet Volume 10.5 7.5-10.5 fL Nucleated Red Blood Cells 0.0 0.0-0.19 % Immature Granulocyte % (Auto) 4.7 H 0-1 % Neutrophils (%) (Auto) 66.0 40.0-77.0 % Lymphocytes (%) (Auto) 18.4 L 21.0-51.0 % Monocytes (%) (Auto) 8.9 3.0-13.0 % Eosinophils (%) (Auto) 1.5 0.0-8.0 % Basophils (%) (Auto) 0.5 0.0-5.0 % Neutrophils # (Auto) 9.7 H 1.8-7.7 K/uL Lymphocytes # (Auto) 2.7 1.0-4.8 K/uL Monocytes # (Auto) 1.3 H 0.1-1.0 K/uL Eosinophils # (Auto) 0.22 0.00-0.70 K/uL Basophils # (Auto) 0.08 0.00-0.20 K/uL Absolute Immature Granulocyte (auto 0.68 0-1 K/uL Chemistry Labs: Test 02/24/25 04:59 02/23/25 20:32 02/23/25 15:53 Range/Units Sodium Level 134 L 136-145 mmol/L Potassium Level 4.2 3.5-5.1 mmol/L Chloride Level 97 L 101-111 mmol/L Carbon Dioxide Level 19 L 21-32 mmol/L Blood Urea Nitrogen 17 7-18 mg/dL Creatinine 1.0 0.5-1.3 mg/dL Glomerular Filtration Rate Calc 78 >90 mL/min Random Glucose 112 H 70-105 mg/dL Lactic Acid Level 1.1 0.8-2.5 mmol/L Total Calcium 8.0 L 8.5-10.1 mg/dL Phosphorus Level 2.9 2.5-4.9 mg/dL Magnesium Level 1.90 1.80-2.40 mg/dL Total Bilirubin 1.8 H 0.2-1.0 mg/dL Aspartate Amino Transf (AST/SGOT) 25 10-37 U/L Alanine Aminotransferase (ALT/SGPT) 21 12-78 U/L Alkaline Phosphatase 57 50-136 U/L Total Protein 5.9 L 6.0-8.3 g/dL Albumin 2.9 L 3.5-5.0 g/dL Whole Blood Glucose 143 H 70-110 MG/DL Bedside Glucose Comment Notified Nurse Diagnostics / Radiology: [Copy/Paste Echos/Imaging Report here] 1. Non-STEMI. 2. Status post 3v CABG ( [id number] ) with left atrial appendage clipping with insertion of IABP and Impella 02/14/2025. 3. Ischemic cardiomyopathy. 4. Postoperative blood loss anemia. 5. Type 2 diabetes mellitus. 6. History of CVA. #NSTEMI s/p Impella assisted CABG 3v (BISHOP to LAD, SVG to OM, SVG R PDA) with Left atrial clipping with a 45-mm AtriCure clip on 02/04/[address] Alexis -IABP discontinued 02/15 -Trop peak at 14,217, has downtrended to [id number] -patient currently denies any cardiac symptoms or anginal equivalents. -keep on telemetry, monitor/replace electrolytes as needed -Continue aspirin 81 mg qd, Atorvastatin 40mg q hs, and Coreg 3.125 mg every 12 hours -Rest of care per CV surgery ] #HFrEF ICM-LVEF 25-30 %-NYHA II Compensated and euvolemic on exam 2D echocardiogram (02/19/2025) LVEF 25-30%, anterior, anteroseptal wall is thinned and akinetic, anterior lateral wall is hypokinetic. Strict I's and O's and daily weights continue Lasix 20 mg IV every 12 hours Optimize GDM T: Jardiance 10 mg daily, Coreg 3.125 mg every 12 hours, [id number] mg daily Thank you for this consult cardiology will continue to follow along Gerry castillo MD ATTESTATION BY PHYSICIAN I have seen and examined the patient, reviewed the above documentation, participated in medical decision making, made necessary modifications, and agree with the treatment plan as documented by my mid-level provider above. MD FELISA Sorensen JAMES R MD Feb 24, 2025 11:30
[2025-02-24 12:31] LABS: ABG BASE EXCESS -0.7 mmol/L (-2.0-3.0); ABG HCO3 21.5 mmol/L (21.0-28.0); ABG OXYGEN SATURATION 94.9 % (94.0-98.0); ABG PCO2 29 mmHg (35-48); ABG PH 7.484 (7.350-7.450); PO2, ARTERIAL BG 67.4 mmHg (83.0-108.0); TEMPERATURE, CELSIUS BG 37.0 CELSIUS (35.5-37.0); VENT MODE, BG ROOM AIR (ROOM AIR)
[2025-02-24 12:46] LABS: CREATININE 1.0 mg/dL (0.5-1.3); GLOMERULAR FILTR. RATE CALC 78.0 mL/min (>90); GLUCOSE,RANDOM 141.0 mg/dL (70-105); SODIUM SERUM 134.0 mmol/L (136-145); UREA NITROGEN, BLOOD 18.0 mg/dL (7-18)
--- NOTE | 2025-02-24 12:59 | NUR ---
as per dr. mcnally pt to have jardiance on hold due to co2 level
--- NOTE | 2025-02-24 13:06 | PN ---
[facility] PROGRESS NOTE Date of Service: Feb 24, 2025 Time of Service: 12:55 HISTORY OF PRESENT ILLNESS: This is a 74-year-old male,a Anglican by rastaf[employer] whith past medical history of diabetes, hyperlipidemia and MN/coronary artery disease with cardiac stent who presented to the Ed for complaints of midsternal chest pain that is non radiating associated with diaphoresis and this happened when patient was laying down in bed aroun 11:50 pm last night and decided to come to the ED for evaluation.Patient reports pain was persistent.As per patient he had a history of heart attack before and underwent a stent placement.Patient reports the only medication he is taking is Metformin.Patient states he is supposed to be on Aspirin but has stopped taking it.Patient reports he occasionally drinks beer and last drink was yesterday ,had 2 beers he said. Seen and examined patient in the ER awake,alert and coherent,appears comfortable.Patient denies fever,chills,cough,nausea,vomiting,palpitation and shortness of breath. Latest vital signs temperature 98.2, heart rate 75, blood pressure 124/70 saturation 97% on room air. Labs: CBC unremarkable. Chloride 99, BUN 21, random glucose 469 to 439 to 327. Troponin from -. ECG result revealed revealed sinus rhythm heart rate 85 with atrial premature complex anterolateral infarct age indeterminate. Second EKG result revealed sinus rhythm heart rate 73 with left anterior fascicular block. Probable anterolateral infarct age indeterminate. Abnormal T consider ischemia lateral leads.. Chest x-ray result revealed no acute cardiopulmonary process is evident. While in the ER patient received 1500 mL NS bolus, insulin 5 units IV, aspirin 325 mg p.o. and patient was started on heparin drip per [facility] protocol. SUBJECTIVE: 02/10/25: Patient was seen and evaluated in ED9. Patient was alert, awake and orientedX3. Patient reports that he doesn't have any chest pain today. Patient reports occasional shortness of breath during nights. Patient denies any shortness of breath, nausea, vomiting, palpitations and lightheadedness. Patient denies any abdominal pain, burning urination. Patient mentions that he only takes metformin 3-4 times per week and has stopped taking aspirin because it wasn't reconciled. Troponin from -. 2D ECHO was done, pending results. Patient is currently on Heparin drip 02/11/25: Patient was evaluated at the bedside this morning. No overnight event. He is AAO x3. patient reported that he does not have chest pain or shortness of breath. He is hemodynamically stable. The labs remarkable for potassium 3.3, magnesium 1.6, HbA1c 13.9, troponin 49760. Left heart catheterization revealed severe triple-vessel disease. Echocardiogram revealed 25% ejection fraction with segmental akinesis. CT surgery was consulted who recommended CABG with Impella left ventricle assist. Family to decide about the procedure. He is currently on heparin drip, aspirin. Endocrinology on board. Rest of the plan as discussed below. 02/12/25: Patient was evaluated at the bedside this morning. No overnight event. He is AAO x3. patient reported that he does not have chest pain or shortness of breath. He is hemodynamically stable. Cardiology is on board and Dr. Blanton have suggested low-dose beta estela like metoprolol tartrate 12.5 mg b.i.d. for his heart failure. Dr Kaur still recommends CABG with 5.5 Impella LVAD and the patient agrees to it. We will continue Entresto, Aldactone, Jardiance, aspirin, Lasix as per CT surgeon recommendations. Today his potassium is 3.1 and we would like to be above 4 for CABG patients. So we will replace potassium 02/13/25: Patient was seen and evaluated in room 201. Patient reports feeling better. patient denies any chest pain, shortness of breath. He is continuing on Entresto, Aldactone, Jardiance, aspirin, Lasix as per CT surgeon recommendations.Patients Potassium today is 3.7, will continue replacing potassium. Patients was present along with the patient, she has a few question about the CABG procedure which she wanted to ask Dr. Alexis. 02/14/25. Patient was undergoing CABG procedure today in the morning. 02/15/25: Patient was seen and evaluated in room 213. Patient status post CABG day 1. Patient denies any fever, chills, shortness of breath. Patient complaints of pain along the incision. Patient is on IABP and Impella support. patient is on Vasopressin and Norepinephrine drip. Entresto, Aldactone, Jardiance were discontinued by Dr. Alexis. CT surgery are on the case and will follow their recommendations. 02/16/25: Patient was seen and evaluated in room 213. Patient status post CABG day 2. patient was asleep when we went bedside. Spoke with the nurse regarding overnights and she mentioned that patient was a bit confused in the night but later improved with sleep. Patient is continuing on Epinephrine drip. Patient was weaned off IABP and is currently only on Impella. Patient was started on Vancomycin and cefepime due to elevated WBC levels and findings suggestive of pneumonia on chest x-ray 02/17/25: Patient was seen and evaluated in room 213. Patient status post CABG day 2. patient was asleep when we went bedside. Spoke with the nurse regarding overnights and he mentioned that patient was started on lasix protocol. Patient is continuing on Epinephrine drip and Impella. Critical care are on the case and will follow their recommendations. 02/18/25: Patient was seen and examined at bedside. He is status post CABG day 3. He continues on Lasix drip 2.5, With Impella P3 support and epinephrine drip. His total output in the past 24 hours has been optimal, 4740 versus 2165 input. No acute events overnight. We will follow CTS recommendations regarding further weaning off Impella. 02/19/25: Patient was seen and evaluated in room 210. He is status post CABG day 4. He continues on Lasix drip 2.5, With Impella P3 support and epinephrine drip. His total output in the past 24 hours has been 2905 versus 4072. No acute overnight. Patient is scheduled for possible impella removal tomorrow. 02/20/25: Patient was seen and evaluated in room 210. He is status post CABG day 5. He continues on Lasix drip 2.5, Impella setting have been maintained at P3 settings. He is continuing on epinephrine drip. Cefepime was discontinued yesterday because overnight the patient was confused, agitated and combative suspecting the cause of his confusion and started on Zosyn. His total output in the past 24 hours has been 2675 versus 2206. Patient is scheduled for possible impella removal tomorrow. 02/21/25: Patient was seen and evaluated in room 210. He is status post CABG day 6. Patient is continuing on Epinephrine drip. patient was started on Lasix 20mg IV. Patient is scheduled for impella removal today. Patient is continuing on Zosyn. His total output in the past 24 hours has been 6700 versus 1785. 02/22/25: Patient was seen and evaluated in room 210. He is status post CABG day 7. Patient reports feeling better and he doesn't have any active complaints, Impella was removed yesterday and patient is continuing on Epinephrine drip. patient denies any shortness of breath, fever, chills and chest pain. Patient is continuing on Zosyn. His total output in the past 24 hours has been 3650 versus 1775. 02/23/25: Patient was seen and evaluated in room 210. He is status post CABG day 8. Patient complains of pain in left lower extremity, Patient denies any erythema, chest pain. Patient denies any fever, chills, shortness of breath, and dizziness. Ankle X-ray, US venous Doppler was ordered, will follow the results. Patient is continuing on lasix 20mg. His total output in the past 24 hours has been 4900 versus 1829. 02/24/25: Patient was seen and evaluated in room 210. He is status post CABG day 9. Patient is alert, awake, oriented X3. Patient reports that his pain in the left lower leg is getting better. Venous US ordered yesterday came back unre markable. Patient denies any chest pain, shortness of breath. Epinephrine drip was discontinued. Patient was started back on Coreg 3.125mg, Jardiance 10mg under cardiology recommendations. His total output in the past 24 hours has been 3300 versus 1560. REVIEW OF SYSTEMS CONSTITUTIONAL: Denies fevers, chills, or night sweats. No unintentional weight loss reported. NEUROLOGICAL: Denies headache, amaurosis fugax, motor weakness, sensory de ficit, vertigo/spinning sensation, gait abnormalities, or tremors. ENT: No hearing loss, otalgia, otorrhea, rhinitis, rhinorrhea, hoarseness, or sore throat. CARDIOVASCULAR: Denies chest pain, dyspnea on exertion, orthopnea, paroxysmal nocturnal dyspnea, palpitations, life-threatening arrhythmias, claudication. PULMONARY: Denies any cough, phlegm/sputum, hemoptysis, pleuritic chest pain. GASTROINTESTINAL: Denies any type of dysphagia to either liquids or solids. Denies nausea, vomiting, pyrosis, early satiety, abdominal pain, diarrhea, constipation, or changes in stool consistency or caliber. Denies coffee-ground emesis, hematemesis, hematochezia, or melanotic stools. GENITOURINARY: Denies frequency, urgency, nocturia, hematuria or incontinence (Storage/Irritative symptoms.) Low urinary stream, straining to void, urinary intermittency or hesitancy, splitting of the voiding stream, terminal dribbling. PHYSICAL EXAM GENERAL APPEARANCE: The patient is awake, alert, and oriented, in no acute cardiopulmonary distress. NEUROLOGICAL: Cranial nerves II-XII grossly intact. Motor is 5/5 in bilateral upper and lower extremities proximal to distal. No sensory deficits. HEENT: Face is symmetric. Pupils are equal and reactive. Extraocular movements are intact. NECK: Supple. No JVD. No thyromegaly. No submental, submandibular, pre-/postauricular, occipital or supraclavicular lymphadenopathy. CHEST: Normal chest expansion. No Telemetry. LUNGS: Absence of any rales, rhonchi or any wheezing. CARDIOVASCULAR: Regular. S1 and S2 normal. No appreciable rubs, murmurs or gallops. ABDOMEN: Soft, nontender, and nondistended. There is no rebound, voluntary guarding, or rigidity. : Deferred. No De Jesus. EXTREMITIES: Non-edematous and not cyanotic. No clubbing. Good capillary refill. SKIN: No skin breakdown. Vital Signs (last 8hr) Date Time Temp Pulse Resp B/P (MAP) Pulse Ox O2 Delivery O2 Flow Rate FiO2 02/24/25 12:00 100 Room Air* 0 21 02/24/25 11:45 98.4 74 35 108/49 95 02/24/25 11:30 73 21 99/50 95 Room Air 02/24/25 11:15 74 21 104/44 97 Room Air 02/24/25 11:14 71 18 N/A Room Air 02/24/25 11:00 73 21 115/45 99 Room Air 02/24/25 10:45 70 21 92/36 98 Room Air 02/24/25 10:30 70 21 101/39 98 Room Air 02/24/25 10:15 71 21 101/40 99 Room Air 02/24/25 10:00 71 21 106/40 97 Room Air 02/24/25 09:45 72 21 103/40 98 Room Air 02/24/25 09:37 71 21 106/53 95 Room Air 02/24/25 09:30 72 21 103/40 98 Room Air 02/24/25 09:15 74 21 118/46 94 Room Air 02/24/25 09:00 74 21 116/45 98 Room Air 02/24/25 08:47 124/76 02/24/25 08:45 77 21 123/49 98 Room Air 02/24/25 08:30 98.8 80 21 127/49 97 Room Air 02/24/25 08:15 82 21 125/48 97 Room Air 02/24/25 08:00 81 18 124/51 97 Room Air 02/24/25 08:00 100 Room Air* 0 21 02/24/25 07:45 83 21 124/53 97 Room Air 02/24/25 07:37 84 21 125/55 96 Room Air 02/24/25 07:30 81 21 124/52 97 Room Air 02/24/25 07:15 78 21 109/38 98 Room Air 02/24/25 07:00 78 21 110/40 98 Room Air 02/24/25 06:37 78 21 109/39 97 Room Air 02/24/25 06:25 79 18 N/A Room Air 02/24/25 05:37 78 18 110/40 99 Room Air LABS: Laboratory: Test 02/24/25 12:29 02/24/25 12:26 02/24/25 11:34 02/24/25 04:59 Range/Units Blood Gas Specimen Type Arterial Arterial Blood pH 7.484 H 7.350-7.450 Arterial Blood Partial Pressure CO2 29 L 35-48 mmHg Arterial Blood Partial Pressure O2 67.4 L 83.0-108.0 mmHg Arterial Blood HCO3 21.5 21.0-28.0 mmol/L Arterial Blood Oxygen Saturation 94.9 94.0-98.0 % Arterial Blood Base Excess -0.7 -2.0-3.0 mmol/L Blood Gas Temperature 37.0 35.5-37.0 CELSIUS Blood Gas Vent Mode ROOM AIR ROOM AIR FiO2 21.0 % Blood Gas Specimen Comment HIWOT COOK Sodium Level 134 L 136-145 mmol/L Potassium Level 3.9 3.5-5.1 mmol/L Chloride Level 96 L 101-111 mmol/L Carbon Dioxide Level 22 21-32 mmol/L Blood Urea Nitrogen 18 7-18 mg/dL Creatinine 1.0 0.5-1.3 mg/dL Glomerular Filtration Rate Calc 78 >90 mL/min Random Glucose 141 H 70-105 mg/dL Total Calcium 8.5 8.5-10.1 mg/dL Whole Blood Glucose 115 H 70-110 MG/DL White Blood Count 15.8 H 4.8-10.8 K/uL Red Blood Count 2.91 L 4.50-6.20 MIL/uL Hemoglobin 8.6 L 14.0-18.0 g/dL Hematocrit 26.0 L 42-54 % Mean Corpuscular Volume 89.3 79-99 fL Mean Corpuscular Hemoglobin 29.6 27.0-33.0 pg Mean Corpuscular Hemoglobin Concent 33.1 32.0-36.0 g/dL Red Cell Distribution Width 15.8 H 11.0-15.5 % Platelet Count 367 130-400 K/uL Mean Platelet Volume 10.5 7.5-10.5 fL Nucleated Red Blood Cells 0.0 0.0-0.19 % Lactic Acid Level 1.1 0.8-2.5 mmol/L Phosphorus Level 2.9 2.5-4.9 mg/dL Magnesium Level 1.90 1.80-2.40 mg/dL Total Bilirubin 1.8 H 0.2-1.0 mg/dL Aspartate Amino Transf (AST/SGOT) 25 10-37 U/L Alanine Aminotransferase (ALT/SGPT) 21 12-78 U/L Alkaline Phosphatase 57 50-136 U/L Total Protein 5.9 L 6.0-8.3 g/dL Albumin 2.9 L 3.5-5.0 g/dL Vancomycin Level Trough 5.9 #L 10.0-20.0 UG/ML Test 02/23/25 15:53 02/23/25 04:58 Range/Units Bedside Glucose Comment Notified Nurse Immature Granulocyte % (Auto) 4.7 H 0-1 % Neutrophils (%) (Auto) 66.0 40.0-77.0 % Lymphocytes (%) (Auto) 18.4 L 21.0-51.0 % Monocytes (%) (Auto) 8.9 3.0-13.0 % Eosinophils (%) (Auto) 1.5 0.0-8.0 % Basophils (%) (Auto) 0.5 0.0-5.0 % Neutrophils # (Auto) 9.7 H 1.8-7.7 K/uL Lymphocytes # (Auto) 2.7 1.0-4.8 K/uL Monocytes # (Auto) 1.3 H 0.1-1.0 K/uL Eosinophils # (Auto) 0.22 0.00-0.70 K/uL Basophils # (Auto) 0.08 0.00-0.20 K/uL Absolute Immature Granulocyte (auto 0.68 0-1 K/uL Current Medications Medications (Trade) Dose Ordered Sig/Carol Route PRN Reason Start Time Stop Time Status Last Admin Dose Admin Acetaminophen (TYLenol 325MG TAB) 650 mg Q4H PRN PO MILD PAIN (1-3) 02/10/25 05:00 02/14/25 10:05 DC Acetaminophen (TYLenol 325MG TAB) 650 mg Q4H PRN PO Temp >38.3C(AFTER EXTUBATION) 02/14/25 10:00 03/16/25 09:59 Acetaminophen (TYLenol 325MG TAB) 650 mg Q6H PRN PO TEMPERATURE GREATER THAN 101.5 02/10/25 05:00 02/14/25 10:17 DC 02/12/25 17:13 650 MG Acetaminophen (TYLenol 325MG TAB) 650 mg Q6H PRN PO MILD PAIN (1-3) 02/14/25 10:00 03/16/25 09:59 Acetaminophen (TYLenol 650MG SUPPOSITORY) 650 mg Q4H PRN RC Temp >38.3C WHILE INTUBATED 02/14/25 10:00 02/23/25 11:52 DC Acetaminophen (acetaMINOPHEN 1,000MG/100ML) 1,000 mg Q6H6 IV 02/14/25 14:00 02/15/25 13:59 DC 02/15/25 12:14 1,000 MG Albumin Human 50 ml @ 0 mls/hr Q12H9 IV 02/20/25 09:00 02/24/25 08:42 DC 02/24/25 08:15 100 MLS/HR Albumin Human 250 ml @ 0 mls/hr AD IV 02/14/25 15:30 02/18/25 10:40 DC 02/18/25 10:27 250 MLS/HR Albumin Human 250 ml @ 0 mls/hr AD IV 02/18/25 10:30 02/20/25 09:03 DC Albumin Human 250 ml @ 0 mls/hr AD PRN IV IF HEMODYNAMICALLY UNSTABLE 02/14/25 10:00 02/14/25 14:42 DC 02/14/25 14:42 500 MLS/HR Aminocaproic Acid 11113 mg/Sodium Chloride 310 ml @ 25 mls/hr AD IV 02/14/25 10:00 02/14/25 10:19 DC Aminocaproic Acid 05924 mg/Sodium Chloride 480 ml @ 0 mls/hr AD PRN IV BLEEDING CONTROL 02/14/25 06:30 02/23/25 11:52 DC Aminocaproic Acid 22573 mg/Sodium Chloride 480 ml @ 0 mls/hr AD PRN IV BLEEDING CONTROL 02/14/25 07:00 02/14/25 06:51 DC Aspirin (Aspirin 325mg Tab) 325 mg ONCE PO 02/10/25 14:30 02/10/25 17:22 DC 02/10/25 14:32 325 MG Aspirin (Aspirin 81mg Ec Tab) 81 mg DAILY PO 02/10/25 09:00 03/12/25 08:59 02/24/25 08:16 81 MG Atorvastatin Calcium (LIPItor 40MG) 40 mg HS PO 02/14/25 21:00 03/16/25 20:59 02/23/25 20:51 40 MG Calcium Gluconate 1 gm/Sodium Chloride 60 ml @ 200 mls/hr AD PRN IV HYPOCALCEMIA 02/14/25 10:00 03/16/25 09:59 02/21/25 08:36 200 MLS/HR Carvedilol (Coreg 3.125MG) 3.125 mg BID PO 02/20/25 21:00 02/24/25 06:13 DC Carvedilol (Coreg 3.125MG) 3.125 mg BID PO 02/24/25 09:00 03/26/25 08:59 02/24/25 08:47 3.125 MG Cefazolin Sodium (Ancef) 2 gm ONCALL IVP 02/13/25 20:00 02/14/25 18:51 DC 02/14/25 08:50 2 GM Cefazolin Sodium (Ancef) 2 gm Q8H IVPB 02/14/25 15:00 02/15/25 07:01 DC 02/15/25 06:25 2 GM Cefepime HCl (MAXipime 1 GM vial) 1 gm Q12H IVPB 02/16/25 10:30 02/20/25 08:16 DC 02/19/25 22:54 1 GM Clopidogrel Bisulfate (plaVIX 300MG TAB) 600 mg ONCE PO 02/10/25 14:00 02/10/25 17:22 DC 02/10/25 14:19 600 MG Clopidogrel Bisulfate (plaVIX 75MG) 75 mg DAILY PO 02/11/25 09:00 02/11/25 07:28 DC Dexmedetomidine/ Sodium Chloride (PRECEdex 400MCG/ 100ML-NS) 400 mcg PROTOCOL IV 02/14/25 10:00 02/15/25 09:59 DC Dexmedetomidine/ Sodium Chloride (PRECEdex 400MCG/ 100ML-NS) 400 mcg PROTOCOL IV 02/20/25 07:30 02/22/25 15:01 DC 02/22/25 05:51 400 MCG Dexmedetomidine/ Sodium Chloride (PRECEdex 400MCG/ 100ML-NS) 400 mcg PROTOCOL IV 02/23/25 00:00 03/25/25 00:00 02/23/25 00:17 400 MCG Dextrose (D50w) 50 ml AD PRN IV HYPOGLYCEMIA PROTOCOL 02/10/25 05:00 02/14/25 10:17 DC Dextrose (D50w) 50 ml AD PRN IV HYPOGLYCEMIA PROTOCOL 02/14/25 10:00 03/16/25 09:59 Docusate Sodium (COLace 100MG CAP) 100 mg BID PO 02/14/25 21:00 03/16/25 20:59 02/23/25 20:51 100 MG Empaglifozin (Jardiance 10mg) 10 mg DAILY PO 02/10/25 14:30 02/14/25 09:59 DC 02/13/25 10:52 10 MG Empaglifozin (Jardiance 10mg) 10 mg DAILY PO 02/20/25 09:00 02/22/25 15:01 DC 02/22/25 09:38 10 MG Empaglifozin (Jardiance 10mg) 10 mg DAILY PO 02/24/25 09:00 03/26/25 08:59 02/24/25 08:47 10 MG Enoxaparin Sodium (Lovenox) 30 mg DAILY SQ 02/17/25 09:00 03/19/25 08:59 02/24/25 08:17 30 MG Epinephrine HCl 10 mg/Sodium Chloride 250 ml @ 0 mls/hr AD PRN IV TITRATE 02/14/25 06:30 03/16/25 06:29 02/20/25 17:32 2.9 MLS/HR Epinephrine HCl 10 mg/Sodium Chloride 250 ml @ 0 mls/hr AD PRN IV TITRATE 02/14/25 07:00 02/14/25 06:51 DC Epinephrine HCl 10 mg/Sodium Chloride 250 ml @ 0 mls/hr AD PRN IV POST-OP CARDIOVASCULAR ORDERS 02/14/25 10:00 02/14/25 10:14 DC Famotidine (Pepcid 20mg Vial) 20 mg BID IV 02/14/25 21:00 02/16/25 07:58 DC 02/15/25 20:15 20 MG Famotidine (Pepcid 20mg Tab) 20 mg BID PO 02/16/25 09:00 02/17/25 07:09 DC 02/16/25 20:03 20 MG Famotidine (Pepcid 20mg Tab) 20 mg DAILY PO 02/10/25 09:00 02/14/25 09:59 DC 02/13/25 10:53 20 MG Famotidine (Pepcid 20mg Tab) 20 mg DAILY PO 02/17/25 09:00 03/18/25 08:59 02/24/25 08:15 20 MG Furosemide (LASix 20MG TAB) 20 mg DAILY PO 02/11/25 09:00 02/14/25 09:59 DC 02/13/25 10:52 20 MG Furosemide (LASix 20MG TAB) 20 mg Q12H PO 02/16/25 09:00 02/16/25 10:21 DC 02/16/25 08:19 20 MG Furosemide (LASix 20MG VIAL) 20 mg ONCE IV 02/10/25 17:00 02/10/25 21:00 DC 02/10/25 17:00 20 MG Furosemide (LASix 20MG VIAL) 20 mg ONCE IV 02/11/25 09:00 02/11/25 07:43 DC Furosemide (LASix 20MG VIAL) 20 mg Q12H IV 02/15/25 09:00 02/16/25 08:59 DC 02/15/25 20:16 20 MG Furosemide (LASix 20MG VIAL) 20 mg Q12H IV 02/20/25 09:00 03/22/25 08:59 02/24/25 08:15 20 MG Furosemide 100 mg/ Sodium Chloride 100 ml @ 0 mls/hr PROTOCOL IV 02/16/25 10:30 02/20/25 09:01 DC 02/19/25 11:35 2.5 MLS/HR Glucagon (Glucagon 1mg Kit) 1 mg AD PRN IM HYPOGLYCEMIA PROTOCOL 02/10/25 05:00 02/14/25 10:17 DC Glucagon (Glucagon 1mg Kit) 1 mg AD PRN IM HYPOGLYCEMIA PROTOCOL 02/14/25 10:00 03/16/25 09:59 Heparin Sodium (Porcine) (HEParin 5,000 UNIT VIAL) *calculation based on ACTUAL B... AD PRN IV HEPARIN PROTOCOL 02/12/25 21:00 02/14/25 09:59 DC 02/12/25 20:16 4,000 UNIT Heparin Sodium/ Dextrose 250 ml @ 0 mls/hr PROTOCOL IV 02/10/25 03:00 02/10/25 17:22 DC 02/10/25 03:00 16.2 MLS/HR Heparin Sodium/ Dextrose 250 ml @ 0 mls/hr Q6H IV 02/11/25 06:30 02/14/25 09:59 DC 02/13/25 13:01 9 MLS/HR Home Med (Home Medication) (Brimonidine-Timolol 0.2%/0.5% EYE DROPS) DAILY OP 02/18/25 09:00 03/20/25 08:59 02/24/25 08:25 1 EACH Insulin Glargine (LANtus 100 UNITS/ML 10 ML VIAL) 10 units DAILY SQ 02/21/25 09:00 02/22/25 19:17 DC 02/22/25 11:54 10 UNITS Insulin Glargine (LANtus 100 UNITS/ML 10 ML VIAL) 12 units DAILY SQ 02/23/25 09:00 03/25/25 08:59 02/24/25 08:23 12 UNITS Insulin Glargine (LANtus 100 UNITS/ML 10 ML VIAL) 12 units DAILY08 SQ 02/13/25 08:00 02/14/25 09:59 DC 02/13/25 10:51 12 UNITS Insulin Glargine (LANtus 100 UNITS/ML 10 ML VIAL) 15 units DAILY08 SQ 02/11/25 08:00 02/13/25 05:24 DC 02/12/25 08:54 15 UNITS Insulin Human Regular (humuLIN R 100 UNIT/ML 3ML) 3 unit TIDAC SQ 02/12/25 07:30 02/14/25 09:59 DC 02/12/25 16:31 3 UNIT Insulin Human Regular (humuLIN R 100 UNIT/ML 3ML) INSULIN SLIDING SCAL... ACHS SQ 02/16/25 11:30 03/18/25 11:29 02/22/25 11:55 3 UNIT Insulin Human Regular (humuLIN R 100 UNIT/ML 3ML) INSULIN SLIDING SCAL... Q4H SQ 02/10/25 05:00 02/10/25 11:10 DC 02/10/25 09:15 6 UNIT Insulin Human Regular (humuLIN R 100 UNIT/ML 3ML) INSULIN SLIDING SCAL... Q6H6 SQ 02/10/25 12:00 02/14/25 09:59 DC 02/11/25 17:29 2 UNIT Insulin Human Regular 100 unit/ Sodium Chloride 100 ml @ 0 mls/hr AD IV 02/14/25 10:00 02/16/25 09:59 DC 02/15/25 06:30 3 MLS/HR Lactulose (Constulose 20gm/ 30ml Udcup) 20 gm BID PRN PO CONSTIPATION 02/14/25 10:00 03/16/25 09:59 Latanoprost (Xalatan) 1 DROP FOR EACH EYE HS OP 02/17/25 21:00 03/19/25 20:59 02/23/25 20:51 1 DROP Magnesium Hydroxide (Milk Of Magnesium 30ml) 30 ml DAILY PRN PO CONSTIPATION 02/14/25 10:00 03/16/25 09:59 Magnesium Sulfate 50 ml @ 12.5 mls/hr AD PRN IV MAG LEVEL LESS THAN 2.0 02/14/25 10:00 03/16/25 09:59 02/24/25 08:17 12.5 MLS/HR Magnesium Sulfate 50 ml @ 0 mls/hr PROTOCOL PRN IV OTHER [SEE ORDER COMMENTS] 02/10/25 05:00 02/14/25 10:17 DC 02/12/25 07:13 25 MLS/HR Metoprolol Tartrate (loprESSOR) 12.5 mg BID PO 02/12/25 09:00 02/14/25 09:59 DC 02/14/25 06:44 12.5 MG Metoprolol Tartrate (loprESSOR) 12.5 mg BID PO 02/16/25 09:00 02/20/25 09:01 DC Midodrine (PROAMatine 5 MG TABLET) 10 mg TID PO 02/23/25 14:00 03/25/25 13:59 02/24/25 08:16 10 MG Morphine Sulfate (morPHINE 2MG SYG) 0.5 mg Q2H PRN IV MODERATE PAIN (4-6) IF NPO 02/14/25 10:00 02/15/25 09:59 DC Morphine Sulfate (morPHINE 2MG SYG) 1 mg Q2H PRN IV SEVERE PAIN (7-10) IF NPO 02/14/25 10:30 02/19/25 13:29 DC 02/14/25 14:23 1 MG Nitroglycerin (Nitrostat) 0.4 mg PROTOCOL PRN SL CHEST PAIN 02/10/25 05:00 02/14/25 09:59 DC Nitroglycerin/ Dextrose 0 ml @ 0 mls/hr AD IV 02/14/25 10:00 02/17/25 09:59 DC Norepinephrine Bitartrate 250 ml @ 0 mls/hr AD PRN IV TITRATE 02/14/25 06:30 03/16/25 06:29 02/17/25 01:06 1.9 MLS/HR Norepinephrine Bitartrate 250 ml @ 0 mls/hr AD PRN IV TITRATE 02/14/25 07:00 02/14/25 06:51 DC Norepinephrine Bitartrate 8 mg/ Dextrose 250 ml @ 0 mls/hr AD PRN IV POST-OP CARDIOVASCULAR ORDERS 02/14/25 10:00 02/14/25 10:14 DC Ondansetron HCl (zoFRAN 4MG INJ) 4 mg Q6H PRN IV NAUSEA/VOMITING 02/10/25 05:00 02/14/25 10:17 DC Ondansetron HCl (zoFRAN 4MG INJ) 4 mg Q6H PRN IV NAUSEA/VOMITING 02/14/25 10:00 03/16/25 09:59 Pharmacy Profile Note (Pharmacy Communication) 1 each ONCE MISC 02/14/25 18:00 02/14/25 18:27 DC Pharmacy Profile Note (Pharmacy Communication) 1 each ONCE MISC 02/20/25 11:30 02/20/25 11:19 DC Piperacillin Sod/ Tazobactam Sod 50 ml @ 12.5 mls/hr Q8H IVPB 02/20/25 11:30 03/02/25 11:29 02/24/25 11:45 12.5 MLS/HR Potassium Phosphate 250 ml @ 42 mls/hr AD PRN IV LOW PHOS LEVEL 02/14/25 10:00 03/16/25 09:59 Potassium Chloride 100 ml @ 100 mls/hr AD PRN IV POTASSIUM PROTOCOL 02/10/25 05:00 02/15/25 06:27 DC 02/15/25 05:43 100 MLS/HR Potassium Chloride 100 ml @ 100 mls/hr AD PRN IV HYPOKALEMIA 02/14/25 10:00 03/16/25 09:59 02/21/25 16:43 100 MLS/HR Potassium Chloride (K-Dur/Klor-Con 20meq) 20 meq AD PRN PO POTASSIUM PROTOCOL 02/10/25 05:00 03/12/25 04:59 02/18/25 20:18 20 MEQ Potassium Chloride (K-Dur/Klor-Con 20meq) 20 meq BID PO 02/19/25 10:30 03/21/25 10:29 02/24/25 08:16 20 MEQ Potassium Chloride (KCl 10% Elixir 20meq/15ml) 20 meq AD PRN PO POTASSIUM PROTOCOL 02/10/25 05:00 03/12/25 04:59 02/22/25 06:27 20 MEQ Prednisone (deltaSONE/ oraSONE 20MG TAB) 20 mg DAILY PO 02/23/25 12:30 02/26/25 13:00 02/24/25 08:15 20 MG Propofol 100 ml @ 0 mls/hr AD PRN IV SEDATION 02/14/25 10:00 02/18/25 09:59 DC Sacubitril/ Valsartan (Entresto 24 Mg-26 Mg Tablet) 0.5 each BID PO 02/10/25 21:00 02/14/25 09:59 DC 02/13/25 21:11 0.5 EACH Sodium Bicarbonate 25 meq/Dextrose 1,025 ml @ 0 mls/hr Q0M IV 02/14/25 18:00 03/16/25 17:59 02/18/25 13:03 9.9 MLS/HR Sodium Bicarbonate (Sodium Bicarb 50meq 50ml Vial) 50 meq AD PRN IV OTHER[SEE DOSING INSTRUCTIONS] 02/14/25 10:00 02/17/25 09:59 DC 02/16/25 15:25 50 MEQ Sodium Chloride 500 ml @ 0 mls/hr AD IV 02/14/25 10:00 03/16/25 09:59 Sodium Chloride 1,000 ml @ 10 mls/hr ONCE IV 02/14/25 10:00 02/15/25 09:59 DC Sodium Chloride 1,000 ml @ 100 mls/hr Q10H IV 02/10/25 05:00 02/10/25 17:22 DC 02/10/25 14:20 100 MLS/HR Sodium Chloride (NS Flush 10ml) 10 ml Q8H PRN IVP IV LINE FLUSH 02/14/25 10:00 03/16/25 09:59 Spironolactone (Aldactone 25mg) 25 mg DAILY PO 02/10/25 14:30 02/14/25 09:59 DC 02/13/25 10:52 25 MG Spironolactone (Aldactone 25mg) 25 mg DAILY PO 02/20/25 09:00 03/22/25 08:59 02/24/25 08:16 25 MG Tramadol HCl (UltRAM) 25 mg Q6H PRN PO MODERATE PAIN (4-6) 02/14/25 10:00 02/19/25 09:59 DC Tramadol HCl (UltRAM) 50 mg Q6H PRN PO SEVERE PAIN (7-10) 02/14/25 10:00 02/19/25 09:59 DC Vancomycin HCl 250 ml @ 125 mls/hr Q12H IV 02/18/25 11:30 02/21/25 05:33 DC 02/19/25 11:20 125 MLS/HR Vancomycin HCl 250 ml @ 125 mls/hr Q24H IV 02/21/25 06:00 02/24/25 05:57 DC 02/23/25 06:28 125 MLS/HR Vancomycin HCl 250 ml @ 125 mls/hr Q24H IV 02/24/25 06:30 02/24/25 12:15 DC 02/24/25 06:26 125 MLS/HR Vancomycin HCl (Vancomycin Protocol) 1 each AD IV 02/18/25 11:00 02/24/25 12:15 DC Vasopressin 40 units/Sodium Chloride 40 ml @ 0 mls/hr PROTOCOL IV 02/14/25 13:00 03/16/25 12:59 02/14/25 22:11 1.8 MLS/HR DIAGNOSTICS / RADIOLOGY: [address] [address] IMAGING REPORT Signed PATIENT: EMMY GRACE MR#: [id number] : 1950 SEX: M AGE: 74 LOCATION: [facility] ORDER 1325 STATUS: ADM IN REPORT#: [id number] SERVICE [id number] REASON: Lower extremity pain and swelling ORDERING PHYSICIAN: ALMA BOONE MD PROCEDURE: VENOUS IKE - US VENOUS DOPPLER BILATERAL STUDY: BILATERAL LOWER EXTREMITY VENOUS DOPPLER ULTRASOUND CLINICAL INFORMATION: Bilateral lower extremity pain and swelling. TECHNIQUE: Duplex sonography of both lower extremity venous systems was performed using june-scale imaging, color Doppler, and spectral Doppler analysis with compression maneuvers and augmentation where appropriate. COMPARISON: None provided. FINDINGS: RIGHT LOWER EXTREMITY: The common femoral, femoral, popliteal, and visualized calf veins are patent and fully compressible throughout their course. No intraluminal echogenic thrombus is identified. Color Doppler demonstrates normal venous flow, and spectral Doppler shows appropriate phasicity and augmentation where assessed. The visualized segments of the great saphenous vein are patent and compressible without evidence of superficial thrombophlebitis. No focal perivenous fluid collection is seen. LEFT LOWER EXTREMITY: The common femoral, femoral, popliteal, and visualized calf veins are patent and fully compressible. No intraluminal thrombus is demonstrated. Color Doppler confirms normal venous filling, and spectral Doppler shows normal phasic flow with appropriate augmentation. The visualized portions of the great saphenous vein are patent and compressible without superficial thrombus. No perivenous fluid collection or focal soft tissue abnormality is identified. IMPRESSION: * No sonographic evidence of deep venous thrombosis in either lower extremity from the common femoral veins through the popliteal and visualized calf veins. * No superficial venous thrombosis or significant perivenous fluid collection is identified on this examination. /[facility] DICTATED BY: PAOLO LYNN MD DATE: 02/23/252332 ELECTRONICALLY SIGNED BY: PAOLO LYNN MD DATE: 02/23/252332 ASSESSMENT: Chest pain rule out ACS: NSTEMI POA Suspected pneumonia findings on Chest X-ray Possible metabolic encephalopathy Hyperglycemia secondary to uncontrolled diabetes POA Hyperlipidemia POA Medication noncompliance, POA Obesity POA MN/Coronary artery disease with cardiac stent POA PLAN: NSTEMI POA: * EKG was done which revealed sinus rhythm heart rate 85 with atrial premature complex anterolateral infarct age indeterminate. Second EKG result revealed sinus rhythm heart rate 73 with left anterior fascicular block. Probable anterolateral infarct age indeterminate. Abnormal T consider ischemia lateral leads. * PERC score was one, Wells score was zero. Very low suspicion for Pulmonary Embolism. * Chest x-ray done on 02/17/25 show, small stable left pleural effusion with adjacent lung atelectasis. follow up x-ray from 02/22/25 show Cardiomegaly with median sternotomy with cardiac revascularization procedure, there is suggestion of a moderate left-sided pleural effusion. * 2-D ECHO on 02/19/25 show LVEF of 25-30% with segmental akinesis (apical, apical lateral, anteroapical), LDL 89, BNP 488 * Troponin trends 21>174>[id number]>7546 * Left heart catheterization revealed severe three-vessel CAD with occluded mid LAD, 90% proximal left circumflex, 95% distal RCA, and 90% ostial PDA. * As per CT surgeon recommendations Entresto 0.5 each, was held. 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 * On aspirin 81 mg p.o. * Patient started on lasix 20mg IV, Aldactone 25mg. His total output in the past 24 hours has been 3300 versus 1560. * Impella scheduled for removal on (02/21/25). * Epinpehrine drip was discontinued and patient was started on Coreg 31.125, Jardiance 10mg from 02/24/25. Suspected pneumonia findings on Chest X-ray * Chest x-ray done on 02/16/25 show diffuse airspace disease of the left lung, predominantly involving the left lower zone, could be due to an infection or atelectasis. Questionable left pleural effusion. * Chest x-ray done on 02/17/25 show, small stable left pleural effusion with adjacent lung atelectasis. follow up x-ray from 02/19/25 show no interval change. * Patient started on Zosyn from 02/20/25 * WBC count on (02/24/25) - 15.8 * Will monitor with daily labs. Possible metabolic encephalopathy * Chest x-ray done on 02/17/25 show, small stable left pleural effusion with adjacent lung atelectasis. * Patient was started on Vancomycin and cefepime due to elevated WBC levels and findings suggestive of pneumonia on chest x-ray * Cefepime was discontinued on 02/20/25 because the patient was confused, agitated and combative suspecting the cause of his confusion and was started on Zosyn. * Will monitor with daily labs Hyperglycemia secondary to uncontrolled diabetes POA: * HbA1c 13.9, blood glucose 181 * Following the Endocrinology recommendations. He is on Lantus 15 units, low- dose sliding scale insulin and Jardiance 10 mg * We will monitor blood glucose. Hypokalemia Hypomagnesemia * Potassium 3.9, magnesium 1.90 (02/24/25) * We will replete the electrolytes and monitor. * Keep potassium above 4 and magnesium above 2. * We will start Slow-Mag oral t.i.d. once and will keep monitoring magnesium levels. Supportive measures * GI prophylaxis with Famotidine * DVT prophylaxis with SCD's ATTESTATION BY PHYSICIAN I have seen and examined the patient. I reviewed the documentation, medical decision making, and treatment plan as noted by the resident physician above. I agree with the findings and plan of care. DIANNE STEELE MD, SHAJI MD Feb 24, 2025 13:06
--- NOTE | 2025-02-24 17:42 | PN ---
Endocrinology progress note DOS: 02/24/25 subjective: glucose are improving/stable and s/p CABG procedure Home diabetic regimen: metformin 500 mg bid, Hba1c 13.9% PAST MEDICAL HISTORY: [ Diabetes, hyperlipidemia, DC/coronary artery disease ] PAST SURGICAL HISTORY: [ Cardiac stent, cholecystectomy and left inguinal hernia repair ] PAST SOCIAL HISTORY: [ Patient lives with . Patient admits he drinks two beer yesterday. Patient reports he occasional drinks alcohol denies cigarette and recreational drug use. ] FAMILY HISTORY: [ Diabetes, cardiovascular disease, asthma and cancer ] Coded Allergies: No Known Drug Allergies (Unverified Allergy, Unknown, 08/31/15) ASSESSMENT: Hyperglycemia secondary to uncontrolled diabetes POA Home diabetic regimen: metformin 500 mg bid, Hba1c 13.9% glucose is improving. NSTEMI POA s/p CABG triple vessel disease s/p CABG Hyperlipidemia POA Obesity POA DC/Coronary artery disease with cardiac stent POA PLAN: OFF insulin drip continue lantus 12 units daily. off regular insulin. Continue low dose sliding scale insulin. Monitor glucose q x 6 hourly. Keep glucose less than 180 mg/dl. Patient will need insulin at discharge Vitals/Labs Vital Signs Date Time Temp Pulse Resp B/P (MAP) Pulse Ox O2 Delivery O2 Flow Rate FiO2 02/24/25 16:00 98.2 72 21 116/60 100 Room Air 02/24/25 12:00 0 21 Laboratory Tests 02/24/25 04:59 02/24/25 12:26 Medications Current Medications Sodium Chloride 1,000 ml @ 0 mls/hr ONCE ONCE IV; Start 02/10/25 at 01:00; Stop 02/10/25 at 00:46; Status DC Sodium Chloride 500 ml @ 0 mls/hr ONCE ONCE IV Last administered on 02/10/25at 00:53; Start 02/10/25 at 01:00; Stop 02/10/25 at 01:01; Status DC Insulin Human Regular 5 unit ONCE ONCE IV Last administered on 02/10/25at 01:30; Start 02/10/25 at 01:30; Stop 02/10/25 at 01:31; Status DC Aspirin 325 mg ONCE ONCE PO Last administered on 02/10/25at 02:32; Start 02/10/25 at 02:30; Stop 02/10/25 at 02:31; Status DC Heparin Sodium/ Dextrose 250 ml @ 0 mls/hr PROTOCOL IV Last administered on 02/10/25at 03:00; Start 02/10/25 at 03:00; Stop 02/10/25 at 17:22; Status DC Heparin Sodium (Porcine) 7,000 unit ONCE ONCE SQ Last administered on 02/10/25at 02:55; Start 02/10/25 at 03:00; Stop 02/10/25 at 03:01; Status DC Acetaminophen 650 mg Q6H PRN PO Last administered on 02/12/25at 17:13; Start 02/10/25 at 05:00; Stop 02/14/25 at 10:17; Status DC Acetaminophen 650 mg Q4H PRN PO; Start 02/10/25 at 05:00; Stop 02/14/25 at 10:05; Status DC Ondansetron HCl 4 mg Q6H PRN IV; Start 02/10/25 at 05:00; Stop 02/14/25 at 10:17; Status DC Nitroglycerin 0.4 mg PROTOCOL PRN SL; Start 02/10/25 at 05:00; Stop 02/14/25 at 09:59; Status DC Famotidine 20 mg DAILY PO Last administered on 02/13/25at 10:53; Start 02/10/25 at 09:00; Stop 02/14/25 at 09:59; Status DC Sodium Chloride 1,000 ml @ 100 mls/hr Q10H IV Last administered on 02/10/25at 14:20; Start 02/10/25 at 05:00; Stop 02/10/25 at 17:22; Status DC Insulin Human Regular INSULIN SLIDING SCAL... Q4H SQ Last administered on 02/10/25at 09:15; Start 02/10/25 at 05:00; Stop 02/10/25 at 11:10; Status DC Dextrose 50 ml AD PRN IV; Start 02/10/25 at 05:00; Stop 02/14/25 at 10:17; Status DC Glucagon 1 mg AD PRN IM; Start 02/10/25 at 05:00; Stop 02/14/25 at 10:17; Status DC Magnesium Sulfate 50 ml @ 0 mls/hr PROTOCOL PRN IV Last administered on 02/12/25at 07:13; Start 02/10/25 at 05:00; Stop 02/14/25 at 10:17; Status DC Potassium Chloride 100 ml @ 100 mls/hr AD PRN IV Last administered on 02/15/25at 05:43; Start 02/10/25 at 05:00; Stop 02/15/25 at 06:27; Status DC Potassium Chloride 20 meq AD PRN PO Last administered on 02/22/25at 06:27; Start 02/10/25 at 05:00; Stop 03/12/25 at 04:59 Potassium Chloride 20 meq AD PRN PO Last administered on 02/18/25at 20:18; Start 02/10/25 at 05:00; Stop 03/12/25 at 04:59 Aspirin 81 mg DAILY PO Last administered on 02/24/25at 08:16; Start 02/10/25 at 09:00; Stop 03/12/25 at 08:59 Insulin Human Regular INSULIN SLIDING SCAL... Q6H6 SQ Last administered on 02/11/25at 17:29; Start 02/10/25 at 12:00; Stop 02/14/25 at 09:59; Status DC Clopidogrel Bisulfate 600 mg ONCE PO Last administered on 02/10/25at 14:19; Start 02/10/25 at 14:00; Stop 02/10/25 at 17:22; Status DC Aspirin 325 mg ONCE PO Last administered on 02/10/25at 14:32; Start 02/10/25 at 14:30; Stop 02/10/25 at 17:22; Status DC Sacubitril/ Valsartan 0.5 each BID PO Last administered on 02/13/25at 21:11; Start 02/10/25 at 21:00; Stop 02/14/25 at 09:59; Status DC Empaglifozin 10 mg DAILY PO Last administered on 02/13/25at 10:52; Start 02/10/25 at 14:30; Stop 02/14/25 at 09:59; Status DC Spironolactone 25 mg DAILY PO Last administered on 02/13/25at 10:52; Start 02/10/25 at 14:30; Stop 02/14/25 at 09:59; Status DC Furosemide 20 mg ONCE IV Last administered on 02/10/25at 17:00; Start 02/10/25 at 17:00; Stop 02/10/25 at 21:00; Status DC Furosemide 20 mg ONCE IV; Start 02/11/25 at 09:00; Stop 02/11/25 at 07:43; Status DC Lidocaine HCl 20 ml STK-MED ONCE .ROUTE; Start 02/10/25 at 15:22; Stop 02/10/25 at 15:23; Status DC Iohexol 35,000 mg STK-MED ONCE IV; Start 02/10/25 at 15:22; Stop 02/10/25 at 15:23; Status DC Iohexol 50 ml STK-MED ONCE IV; Start 02/10/25 at 15:22; Stop 02/10/25 at 15:23; Status DC Heparin Sodium (Porcine) 10,000 unit STK-MED ONCE .ROUTE; Start 02/10/25 at 15:23; Stop 02/10/25 at 15:23; Status DC Heparin Sodium/ Sodium Chloride 1,000 ml @ As Directed STK-MED ONCE IV; Start 02/10/25 at 15:23; Stop 02/10/25 at 15:23; Status DC Nitroglycerin 50 mg STK-MED ONCE .ROUTE; Start 02/10/25 at 15:23; Stop 02/10/25 at 15:23; Status DC Heparin Sodium/ Sodium Chloride 500 ml @ As Directed STK-MED ONCE IV; Start 02/10/25 at 15:35; Stop 02/10/25 at 15:35; Status DC Fentanyl Citrate 100 mcg STK-MED ONCE .ROUTE; Start 02/10/25 at 15:39; Stop 02/10/25 at 15:40; Status DC Midazolam HCl 2 mg STK-MED ONCE .ROUTE; Start 02/10/25 at 15:40; Stop 02/10/25 at 15:40; Status DC Bivalirudin 250 mg STK-MED ONCE IV; Start 02/10/25 at 16:15; Stop 02/10/25 at 16:15; Status DC Heparin Sodium (Porcine) 7,000 unit ONCE ONCE IV Last administered on 02/11/25at 05:46; Start 02/11/25 at 05:30; Stop 02/11/25 at 05:31; Status DC Heparin Sodium/ Dextrose 250 ml @ 0 mls/hr Q6H IV Last administered on 02/13/25at 13:01; Start 02/11/25 at 06:30; Stop 02/14/25 at 09:59; Status DC Clopidogrel Bisulfate 75 mg DAILY PO; Start 02/11/25 at 09:00; Stop 02/11/25 at 07:28; Status DC Insulin Glargine 15 units DAILY08 SQ Last administered on 02/12/25at 08:54; Start 02/11/25 at 08:00; Stop 02/13/25 at 05:24; Status DC Furosemide 20 mg DAILY PO Last administered on 02/13/25at 10:52; Start 02/11/25 at 09:00; Stop 02/14/25 at 09:59; Status DC Insulin Human Regular 3 unit TIDAC SQ Last administered on 02/12/25at 16:31; Start 02/12/25 at 07:30; Stop 02/14/25 at 09:59; Status DC Metoprolol Tartrate 12.5 mg BID PO Last administered on 02/14/25at 06:44; Start 02/12/25 at 09:00; Stop 02/14/25 at 09:59; Status DC Potassium Chloride 40 meq BID ONCE PO; Start 02/12/25 at 21:00; Stop 02/12/25 at 21:01; Status DC Magnesium Chloride 64 mg Q8H6 ONCE PO; Start 02/12/25 at 14:00; Stop 02/12/25 at 14:01; Status DC Heparin Sodium (Porcine) *calculation based on ACTUAL B... AD PRN IV Last administered on 02/12/25at 20:16; Start 02/12/25 at 21:00; Stop 02/14/25 at 09:59; Status DC Insulin Glargine 12 units DAILY08 SQ Last administered on 02/13/25at 10:51; Start 02/13/25 at 08:00; Stop 02/14/25 at 09:59; Status DC Cefazolin Sodium 2 gm ONCALL IVP Last administered on 02/14/25at 08:50; Start 02/13/25 at 20:00; Stop 02/14/25 at 18:51; Status DC Epinephrine HCl 10 mg/Sodium Chloride 250 ml @ 0 mls/hr AD PRN IV Last administered on 02/20/25at 17:32; Start 02/14/25 at 06:30; Stop 03/16/25 at 06:29 Norepinephrine Bitartrate 250 ml @ 0 mls/hr AD PRN IV Last administered on 02/17/25at 01:06; Start 02/14/25 at 06:30; Stop 03/16/25 at 06:29 Aminocaproic Acid 76935 mg/Sodium Chloride 480 ml @ 0 mls/hr AD PRN IV; Start 02/14/25 at 06:30; Stop 02/23/25 at 11:52; Status DC Epinephrine HCl 10 mg/Sodium Chloride 250 ml @ 0 mls/hr AD PRN IV; Start 02/14/25 at 07:00; Stop 02/14/25 at 06:51; Status DC Norepinephrine Bitartrate 250 ml @ 0 mls/hr AD PRN IV; Start 02/14/25 at 07:00; Stop 02/14/25 at 06:51; Status DC Aminocaproic Acid 22659 mg/Sodium Chloride 480 ml @ 0 mls/hr AD PRN IV; Start 02/14/25 at 07:00; Stop 02/14/25 at 06:51; Status DC Cefazolin Sodium 2 gm STK-MED ONCE .ROUTE; Start 02/14/25 at 06:53; Stop 02/14/25 at 06:53; Status DC Nitroglycerin/ Dextrose 1 ml @ As Directed STK-MED ONCE .ROUTE; Start 02/14/25 at 07:00; Stop 02/14/25 at 07:00; Status DC Cefazolin Sodium 1 gm STK-MED ONCE .ROUTE Last administered on 02/14/25at 10:09; Start 02/14/25 at 07:37; Stop 02/14/25 at 07:38; Status DC Heparin Sodium/ Sodium Chloride 500 ml @ As Directed STK-MED ONCE IV; Start 02/14/25 at 07:38; Stop 02/14/25 at 07:38; Status DC Papaverine HCl 60 mg STK-MED ONCE .ROUTE Last administered on 02/14/25at 10:10; Start 02/14/25 at 07:38; Stop 02/14/25 at 07:38; Status DC Midazolam HCl 2 mg STK-MED ONCE .ROUTE; Start 02/14/25 at 08:14; Stop 02/14/25 at 08:14; Status DC Ketamine HCl 500 mg STK-MED ONCE IJ; Start 02/14/25 at 08:16; Stop 02/14/25 at 08:16; Status DC Protamine Sulfate 250 mg STK-MED ONCE IV; Start 02/14/25 at 08:17; Stop 02/14/25 at 08:17; Status DC Lidocaine HCl 100 mg STK-MED ONCE .ROUTE; Start 02/14/25 at 08:17; Stop 02/14/25 at 08:17; Status DC Heparin Sodium (Porcine) 10,000 unit STK-MED ONCE .ROUTE; Start 02/14/25 at 08:17; Stop 02/14/25 at 08:17; Status DC Epinephrine HCl 1 mg STK-MED ONCE .ROUTE; Start 02/14/25 at 08:17; Stop 02/14/25 at 08:17; Status DC Sodium Bicarbonate 200 ml @ As Directed STK-MED ONCE .ROUTE; Start 02/14/25 at 08:17; Stop 02/14/25 at 08:17; Status DC Norepinephrine Bitartrate 4 mg STK-MED ONCE IV; Start 02/14/25 at 08:17; Stop 02/14/25 at 08:17; Status DC Propofol 200 mg STK-MED ONCE IV; Start 02/14/25 at 08:19; Stop 02/14/25 at 08:19; Status DC Fentanyl Citrate 1,000 mcg STK-MED ONCE IJ; Start 02/14/25 at 08:19; Stop 02/14/25 at 08:19; Status DC Midazolam HCl 2 mg STK-MED ONCE .ROUTE; Start 02/14/25 at 08:20; Stop 02/14/25 at 08:20; Status DC Rocuronium [place] 50 mg STK-MED ONCE .ROUTE; Start 02/14/25 at 08:20; Stop 02/14/25 at 08:20; Status DC Acetaminophen 1,000 mg Q6H6 IV Last administered on 02/15/25at 12:14; Start 02/14/25 at 14:00; Stop 02/15/25 at 13:59; Status DC Aspirin 81 mg ONCE ONCE NG Last administered on 02/14/25at 13:56; Start 02/14/25 at 14:00; Stop 02/14/25 at 14:01; Status DC Docusate Sodium 100 mg BID PO Last administered on 02/23/25at 20:51; Start 02/14/25 at 21:00; Stop 03/16/25 at 20:59 Lactulose 20 gm BID PRN PO; Start 02/14/25 at 10:00; Stop 03/16/25 at 09:59 Furosemide 20 mg Q12H PO Last administered on 02/16/25at 08:19; Start 02/16/25 at 09:00; Stop 02/16/25 at 10:21; Status DC Furosemide 20 mg Q12H IV Last administered on 02/15/25at 20:16; Start 02/15/25 at 09:00; Stop 02/16/25 at 08:59; Status DC Atorvastatin Calcium 40 mg HS PO Last administered on 02/23/25at 20:51; Start 02/14/25 at 21:00; Stop 03/16/25 at 20:59 Enoxaparin Sodium 30 mg DAILY SQ Last administered on 02/24/25at 08:17; Start 02/17/25 at 09:00; Stop 03/19/25 at 08:59 Metoprolol Tartrate 12.5 mg BID PO; Start 02/16/25 at 09:00; Stop 02/20/25 at 09:01; Status DC Magnesium Hydroxide 30 ml DAILY PRN PO; Start 02/14/25 at 10:00; Stop 03/16/25 at 09:59 Dexmedetomidine/ Sodium Chloride 400 mcg PROTOCOL IV; Start 02/14/25 at 10:00; Stop 02/15/25 at 09:59; Status DC Acetaminophen 650 mg Q6H PRN PO; Start 02/14/25 at 10:00; Stop 03/16/25 at 09:59 Heparin Sodium (Porcine) 10,000 unit STK-MED ONCE .ROUTE; Start 02/14/25 at 10:00; Stop 02/14/25 at 10:00; Status DC Sodium Chloride 1,000 ml @ 10 mls/hr ONCE IV; Start 02/14/25 at 10:00; Stop 02/15/25 at 09:59; Status DC Sodium Chloride 10 ml Q8H PRN IVP; Start 02/14/25 at 10:00; Stop 03/16/25 at 09:59 Morphine Sulfate 0.5 mg Q2H PRN IV; Start 02/14/25 at 10:00; Stop 02/15/25 at 09:59; Status DC Morphine Sulfate 1 mg Q2H PRN IV Last administered on 02/14/25at 14:23; Start 02/14/25 at 10:30; Stop 02/19/25 at 13:29; Status DC Acetaminophen 650 mg Q4H PRN RC; Start 02/14/25 at 10:00; Stop 02/23/25 at 11:52; Status DC Ondansetron HCl 4 mg Q6H PRN IV; Start 02/14/25 at 10:00; Stop 03/16/25 at 09:59 Sodium Chloride 500 ml @ 0 mls/hr AD IV; Start 02/14/25 at 10:00; Stop 03/16/25 at 09:59 Nitroglycerin/ Dextrose 0 ml @ 0 mls/hr AD IV; Start 02/14/25 at 10:00; Stop 02/17/25 at 09:59; Status DC Propofol 100 ml @ 0 mls/hr AD PRN IV; Start 02/14/25 at 10:00; Stop 02/18/25 at 09:59; Status DC Norepinephrine Bitartrate 8 mg/ Dextrose 250 ml @ 0 mls/hr AD PRN IV; Start 02/14/25 at 10:00; Stop 02/14/25 at 10:14; Status DC Epinephrine HCl 10 mg/Sodium Chloride 250 ml @ 0 mls/hr AD PRN IV; Start 02/14/25 at 10:00; Stop 02/14/25 at 10:14; Status DC Aminocaproic Acid 41406 mg/Sodium Chloride 310 ml @ 25 mls/hr AD IV; Start 02/14/25 at 10:00; Stop 02/14/25 at 10:19; Status DC Calcium Gluconate 1 gm/Sodium Chloride 60 ml @ 200 mls/hr AD PRN IV Last administered on 02/21/25at 08:36; Start 02/14/25 at 10:00; Stop 03/16/25 at 09:59 Magnesium Sulfate 50 ml @ 12.5 mls/hr AD PRN IV Last administered on 02/24/25at 08:17; Start 02/14/25 at 10:00; Stop 03/16/25 at 09:59 Potassium Chloride 100 ml @ 100 mls/hr AD PRN IV Last administered on 02/21/25at 16:43; Start 02/14/25 at 10:00; Stop 03/16/25 at 09:59 Potassium Phosphate 250 ml @ 42 mls/hr AD PRN IV; Start 02/14/25 at 10:00; Stop 03/16/25 at 09:59 Albumin Human 250 ml @ 0 mls/hr AD PRN IV Last administered on 02/14/25at 14:42; Start 02/14/25 at 10:00; Stop 02/14/25 at 14:42; Status DC Acetaminophen 650 mg Q4H PRN PO; Start 02/14/25 at 10:00; Stop 03/16/25 at 09:59 Insulin Human Regular 100 unit/ Sodium Chloride 100 ml @ 0 mls/hr AD IV Last administered on 02/15/25at 06:30; Start 02/14/25 at 10:00; Stop 02/16/25 at 09:59; Status DC Cefazolin Sodium 2 gm Q8H IVPB Last administered on 02/15/25at 06:25; Start 02/14/25 at 15:00; Stop 02/15/25 at 07:01; Status DC Tramadol HCl 25 mg Q6H PRN PO; Start 02/14/25 at 10:00; Stop 02/19/25 at 09:59; Status DC Tramadol HCl 50 mg Q6H PRN PO; Start 02/14/25 at 10:00; Stop 02/19/25 at 09:59; Status DC Famotidine 20 mg BID IV Last administered on 02/15/25at 20:15; Start 02/14/25 at 21:00; Stop 02/16/25 at 07:58; Status DC Sodium Bicarbonate 50 meq AD PRN IV Last administered on 02/16/25at 15:25; Start 02/14/25 at 10:00; Stop 02/17/25 at 09:59; Status DC Dextrose 50 ml AD PRN IV; Start 02/14/25 at 10:00; Stop 03/16/25 at 09:59 Glucagon 1 mg AD PRN IM; Start 02/14/25 at 10:00; Stop 03/16/25 at 09:59 Dobutamine HCl 250 mg STK-MED ONCE .ROUTE; Start 02/14/25 at 10:28; Stop 02/14/25 at 10:28; Status DC Sodium Bicarbonate 50 ml @ As Directed STK-MED ONCE .ROUTE; Start 02/14/25 at 10:52; Stop 02/14/25 at 10:52; Status DC Sodium Bicarbonate 200 ml @ As Directed STK-MED ONCE .ROUTE; Start 02/14/25 at 10:53; Stop 02/14/25 at 10:53; Status DC Vasopressin 20 units STK-MED ONCE .ROUTE; Start 02/14/25 at 11:51; Stop 02/14/25 at 11:51; Status DC Rocuronium [place] 50 mg STK-MED ONCE .ROUTE; Start 02/14/25 at 12:14; Stop 02/14/25 at 12:14; Status DC Sodium Bicarbonate 100 ml @ As Directed STK-MED ONCE .ROUTE; Start 02/14/25 at 12:16; Stop 02/14/25 at 12:16; Status DC Vasopressin 40 units/Sodium Chloride 40 ml @ 0 mls/hr PROTOCOL IV Last administered on 02/14/25at 22:11; Start 02/14/25 at 13:00; Stop 03/16/25 at 12:59 Albumin Human 250 ml @ 0 mls/hr AD IV Last administered on 02/18/25at 10:27; Start 02/14/25 at 15:30; Stop 02/18/25 at 10:40; Status DC Calcium Gluconate 2 gm/Sodium Chloride 100 ml @ 0 mls/hr ONCE ONCE IV Last administered on 02/14/25at 16:15; Start 02/14/25 at 16:30; Stop 02/14/25 at 16:31; Status DC Pharmacy Profile Note 1 each ONCE MISC; Start 02/14/25 at 18:00; Stop 02/14/25 at 18:27; Status DC Sodium Bicarbonate 25 meq/Dextrose 1,025 ml @ 0 mls/hr Q0M IV Last administered on 02/18/25at 13:03; Start 02/14/25 at 18:00; Stop 03/16/25 at 17:59 Famotidine 20 mg BID PO Last administered on 02/16/25at 20:03; Start 02/16/25 at 09:00; Stop 02/17/25 at 07:09; Status DC Insulin Human Regular INSULIN SLIDING SCAL... ACHS SQ Last administered on 02/22/25at 11:55; Start 02/16/25 at 11:30; Stop 03/18/25 at 11:29 Cefepime HCl 1 gm Q12H IVPB Last administered on 02/19/25at 22:54; Start 02/16/25 at 10:30; Stop 02/20/25 at 08:16; Status DC Furosemide 100 mg/ Sodium Chloride 100 ml @ 0 mls/hr PROTOCOL IV Last administered on 02/19/25at 11:35; Start 02/16/25 at 10:30; Stop 02/20/25 at 09:01; Status DC Vancomycin HCl 500 ml @ 250 mls/hr ONCE ONCE IV Last administered on 02/16/25at 11:39; Start 02/16/25 at 12:00; Stop 02/16/25 at 13:59; Status DC Sodium Chloride 4 ml STK-MED ONCE IH Last administered on 02/16/25at 10:53; Start 02/16/25 at 10:44; Stop 02/16/25 at 10:44; Status DC Sodium Chloride 4 ml STK-MED ONCE IH Last administered on 02/16/25at 14:33; Start 02/16/25 at 14:26; Stop 02/16/25 at 14:26; Status DC Sodium Chloride 4 ml STK-MED ONCE IH Last administered on 02/16/25at 19:16; Start 02/16/25 at 18:32; Stop 02/16/25 at 18:32; Status DC Famotidine 20 mg DAILY PO Last administered on 02/24/25at 08:15; Start 02/17/25 at 09:00; Stop 03/18/25 at 08:59 Latanoprost 1 DROP FOR EACH EYE HS OP Last administered on 02/23/25at 20:51; Start 02/17/25 at 21:00; Stop 03/19/25 at 20:59 Home Med (Brimonidine-Timolol 0.2%/0.5% EYE DROPS) DAILY OP Last administered on 02/24/25at 08:25; Start 02/18/25 at 09:00; Stop 03/20/25 at 08:59 Albumin Human 250 ml @ 0 mls/hr AD IV; Start 02/18/25 at 10:30; Stop 02/20/25 at 09:03; Status DC Vancomycin HCl 1 each AD IV; Start 02/18/25 at 11:00; Stop 02/24/25 at 12:15; Status DC Vancomycin HCl 250 ml @ 125 mls/hr Q12H IV Last administered on 02/19/25at 11:20; Start 02/18/25 at 11:30; Stop 02/21/25 at 05:33; Status DC Potassium Chloride 20 meq BID PO Last administered on 02/24/25at 08:16; Start 02/19/25 at 10:30; Stop 03/21/25 at 10:29 Dexmedetomidine/ Sodium Chloride 400 mcg STK-MED ONCE IV Last administered on 02/20/25at 07:08; Start 02/20/25 at 07:00; Stop 02/20/25 at 07:00; Status DC Dexmedetomidine/ Sodium Chloride 400 mcg PROTOCOL IV Last administered on 02/22/25at 05:51; Start 02/20/25 at 07:30; Stop 02/22/25 at 15:01; Status DC Carvedilol 3.125 mg BID PO; Start 02/20/25 at 21:00; Stop 02/24/25 at 06:13; Status DC Spironolactone 25 mg DAILY PO Last administered on 02/24/25at 08:16; Start 02/20/25 at 09:00; Stop 03/22/25 at 08:59 Empaglifozin 10 mg DAILY PO Last administered on 02/22/25at 09:38; Start 02/20/25 at 09:00; Stop 02/22/25 at 15:01; Status DC Albumin Human 50 ml @ 0 mls/hr Q12H9 IV Last administered on 02/24/25at 08:15; Start 02/20/25 at 09:00; Stop 02/24/25 at 08:42; Status DC Furosemide 20 mg Q12H IV Last administered on 02/24/25at 08:15; Start 02/20/25 at 09:00; Stop 03/22/25 at 08:59 Pharmacy Profile Note 1 each ONCE MISC; Start 02/20/25 at 11:30; Stop 02/20/25 at 11:19; Status DC Piperacillin Sod/ Tazobactam Sod 50 ml @ 12.5 mls/hr Q8H IVPB Last administered on 02/24/25at 11:45; Start 02/20/25 at 11:30; Stop 03/02/25 at 11:29 Vancomycin HCl 250 ml @ 125 mls/hr Q24H IV Last administered on 02/23/25at 06:28; Start 02/21/25 at 06:00; Stop 02/24/25 at 05:57; Status DC Insulin Glargine 10 units DAILY SQ Last administered on 02/22/25at 11:54; Start 02/21/25 at 09:00; Stop 02/22/25 at 19:17; Status DC Calcium Gluconate 1 gm STK-MED ONCE .ROUTE; Start 02/21/25 at 08:34; Stop 02/21/25 at 08:34; Status DC Etomidate 20 mg STK-MED ONCE .ROUTE; Start 02/21/25 at 12:27; Stop 02/21/25 at 12:28; Status DC Fentanyl Citrate 100 mcg STK-MED ONCE .ROUTE; Start 02/21/25 at 12:30; Stop 02/21/25 at 12:30; Status DC Rocuronium [place] 50 mg STK-MED ONCE .ROUTE; Start 02/21/25 at 12:30; Stop 02/21/25 at 12:30; Status DC Lidocaine HCl 20 ml STK-MED ONCE .ROUTE; Start 02/21/25 at 12:31; Stop 02/21/25 at 12:31; Status DC Cefazolin Sodium 1 gm STK-MED ONCE .ROUTE; Start 02/21/25 at 12:31; Stop 02/21/25 at 12:32; Status DC Bupivacaine HCl 2.5 mg STK-MED ONCE IJ; Start 02/21/25 at 12:32; Stop 02/21/25 at 12:32; Status DC Propofol 200 mg STK-MED ONCE IV; Start 02/21/25 at 12:35; Stop 02/21/25 at 12:35; Status DC Lidocaine HCl 100 mg STK-MED ONCE .ROUTE; Start 02/21/25 at 12:46; Stop 02/21/25 at 12:46; Status DC Cefazolin Sodium 1 gm STK-MED ONCE .ROUTE; Start 02/21/25 at 12:51; Stop 02/21/25 at 12:51; Status DC Rocuronium [place] 50 mg STK-MED ONCE .ROUTE; Start 02/21/25 at 13:03; Stop 02/21/25 at 13:03; Status DC Cefazolin Sodium 2 gm STK-MED ONCE IVPB Last administered on 02/21/25at 12:53; Start 02/21/25 at 12:53; Stop 02/21/25 at 14:14; Status DC Lidocaine HCl 20 ml STK-MED ONCE INJ Last administered on 02/21/25at 12:18; Start 02/21/25 at 12:18; Stop 02/21/25 at 14:14; Status DC Bupivacaine HCl 75 mg STK-MED ONCE IJ Last administered on 02/21/25at 12:18; Start 02/21/25 at 12:18; Stop 02/21/25 at 14:14; Status DC Insulin Glargine 12 units DAILY SQ Last administered on 02/24/25at 08:23; Start 02/23/25 at 09:00; Stop 03/25/25 at 08:59 Dexmedetomidine/ Sodium Chloride 400 mcg PROTOCOL IV Last administered on 02/23/25at 00:17; Start 02/23/25 at 00:00; Stop 03/25/25 at 00:00 Midodrine 10 mg TID PO Last administered on 02/24/25at 13:10; Start 02/23/25 at 14:00; Stop 03/25/25 at 13:59 Prednisone 20 mg DAILY PO Last administered on 02/24/25at 08:15; Start 02/23/25 at 12:30; Stop 02/26/25 at 13:00 Vancomycin HCl 250 ml @ 125 mls/hr Q24H IV Last administered on 02/24/25at 06:26; Start 02/24/25 at 06:30; Stop 02/24/25 at 12:15; Status DC Carvedilol 3.125 mg BID PO Last administered on 02/24/25at 08:47; Start 02/24/25 at 09:00; Stop 03/26/25 at 08:59 Empaglifozin 10 mg DAILY PO Last administered on 02/24/25at 08:47; Start 02/24/25 at 09:00; Stop 02/24/25 at 13:01; Status DC EUGENE ZARATE MD Feb 24, 2025 17:42
--- NOTE | 2025-02-24 18:14 | NUR ---
REPORT AND CARE GIVE TO JOANNE RN , PT [id number]. NO DISTRESS NOTED, VITALS CHARTED. SPOUSE CALLED TO CELLPHONE NO ANSWER, VOICEMAIL LEFT TO CALL BACK FOR INFORMATION ABOUT ROOM CHANGE.
--- NOTE | 2025-02-24 18:29 | PN ---
INFECTIOUS DISEASE PROGRESS NOTE Date of Service: Feb 24, 2025 SUBJECTIVE: This 74-year-old male patient who was seen and examined at bedside in room 216. During visit today patient was sitting up on the bedside chair. De Jesus catheter draining clear yellow urine. Patient is s/p surgical removal of Impella on 2024. Patient continues on a 2-1 sitter observation due to confusion episodes. No growth reported on the sputum culture. Continues on Zosyn and vancomycin. PHYSICAL EXAM EYES: Anicteric. Pupils equal and reactive. HENT: No oral thrush seen, moist Oral mucosa. NECK: Supple, no JVD or thyromegaly. LUNGS: Diminished breath sounds. Oxygen support via nasal cannula. CHEST: Sternal incision. CARDIOVASCULAR: S1, S2 regular. No murmur heard. ABDOMEN: Soft, non tender, bowel sounds present. CENTRAL NERVOUS SYSTEM: Awake, alert, oriented. SKIN: No rashes, no swelling. Vein harvesting surgical incisions to bilateral lower extremities.. LYMPHATICS: No peripheral lymphadenopathy. MUSCULOSKELETAL: No joint swelling, erythema or tenderness. EXTREMITIES: No cyanosis or clubbing. 1+ edema to bilateral feet. BACK: No deformity, no pressure ulcer. GENITOURINARY: No dysuria or hematuria. De Jesus catheter. Vital Sign (Last 12 Hours) 02/24/25 02/24/25 02/24/25 02/24/25 06:37 07:00 07:15 07:30 Pulse 78 78 78 81 Resp 21 21 21 21 B/P (MAP) 109/39 110/40 109/38 124/52 Pulse Ox 97 98 98 97 O2 Delivery Room Air Room Air Room Air Room Air 02/24/25 02/24/25 02/24/25 02/24/25 07:37 07:45 08:00 08:00 Pulse 84 83 81 Resp 21 21 18 B/P (MAP) 125/55 124/53 124/51 Pulse Ox 96 97 100 97 O2 Delivery Room Air Room Air Room Air* Room Air O2 Flow Rate 0 FiO2 21 02/24/25 02/24/25 02/24/25 02/24/25 08:15 08:30 08:45 08:47 Temp 98.8 Pulse 82 80 77 Resp 21 21 21 B/P (MAP) 125/48 127/49 123/49 124/76 Pulse Ox 97 97 98 O2 Delivery Room Air Room Air Room Air 02/24/25 02/24/25 02/24/25 02/24/25 09:00 09:15 09:30 09:37 Pulse 74 74 72 71 Resp 21 21 B/P (MAP) 116/45 118/46 103/40 106/53 Pulse Ox 98 94 98 95 O2 Delivery Room Air Room Air Room Air Room Air 02/24/25 02/24/25 02/24/25 02/24/25 09:45 10:00 10:15 10:30 Pulse 72 71 71 70 Resp 21 B/P (MAP) 103/40 106/40 101/40 101/39 Pulse Ox 98 97 99 98 O2 Delivery Room Air Room Air Room Air Room Air 02/24/25 02/24/25 02/24/25 02/24/25 10:45 11:00 11:14 11:15 Pulse 70 73 71 74 Resp B/P (MAP) 92/36 115/45 104/44 Pulse Ox 98 99 97 O2 Delivery Room Air Room Air N/A Room Air Room Air FiO2 21 02/24/25 02/24/25 02/24/25 02/24/25 11:30 11:45 12:00 12:00 Temp 98.4 Pulse 73 74 74 Resp B/P (MAP) 99/50 108/49 96/58 Pulse Ox 95 95 95 100 O2 Delivery Room Air Room Air Room Air* O2 Flow Rate 0 FiO2 21 02/24/25 02/24/25 02/24/25 02/24/25 12:15 12:30 12:45 13:00 Pulse 73 73 72 74 Resp 21 B/P (MAP) 93/55 91/52 96/58 94/52 Pulse Ox 95 96 96 95 O2 Delivery Room Air Room Air Room Air Room Air 02/24/25 02/24/25 02/24/25 02/24/25 14:00 15:00 16:00 18:00 Temp 98.2 Pulse 75 74 72 71 Resp 21 B/P (MAP) 104/42 116/46 116/60 114/72 Pulse Ox 96 96 100 100 O2 Delivery Room Air Room Air Room Air Room Air Intake & Output (last 24hrs) 02/23/25 02/23/25 02/24/25 15:00 23:00 07:00 Intake Total 650 ml 610.0 ml 300.0 ml Output Total 1000 ml 1300 ml 1000 ml Balance -350 ml -690.0 ml -700.0 ml LABS: Laboratory: Test 02/24/25 15:48 02/24/25 12:29 02/24/25 12:26 02/24/25 04:59 Range/Units Whole Blood Glucose 152 H 70-110 MG/DL Blood Gas Specimen Type Arterial Arterial Blood pH 7.484 H 7.350-7.450 Arterial Blood Partial Pressure CO2 29 L 35-48 mmHg Arterial Blood Partial Pressure O2 67.4 L 83.0-108.0 mmHg Arterial Blood HCO3 21.5 21.0-28.0 mmol/L Arterial Blood Oxygen Saturation 94.9 94.0-98.0 % Arterial Blood Base Excess -0.7 -2.0-3.0 mmol/L Blood Gas Temperature 37.0 35.5-37.0 CELSIUS Blood Gas Vent Mode ROOM AIR ROOM AIR FiO2 21.0 % Blood Gas Specimen Comment HIWOT JOEY Sodium Level 134 L 136-145 mmol/L Potassium Level 3.9 3.5-5.1 mmol/L Chloride Level 96 L 101-111 mmol/L Carbon Dioxide Level 22 21-32 mmol/L Blood Urea Nitrogen 18 7-18 mg/dL Creatinine 1.0 0.5-1.3 mg/dL Glomerular Filtration Rate Calc 78 >90 mL/min Random Glucose 141 H 70-105 mg/dL Total Calcium 8.5 8.5-10.1 mg/dL White Blood Count 15.8 H 4.8-10.8 K/uL Red Blood Count 2.91 L 4.50-6.20 MIL/uL Hemoglobin 8.6 L 14.0-18.0 g/dL Hematocrit 26.0 L 42-54 % Mean Corpuscular Volume 89.3 79-99 fL Mean Corpuscular Hemoglobin 29.6 27.0-33.0 pg Mean Corpuscular Hemoglobin Concent 33.1 32.0-36.0 g/dL Red Cell Distribution Width 15.8 H 11.0-15.5 % Platelet Count 367 130-400 K/uL Mean Platelet Volume 10.5 7.5-10.5 fL Nucleated Red Blood Cells 0.0 0.0-0.19 % Lactic Acid Level 1.1 0.8-2.5 mmol/L Phosphorus Level 2.9 2.5-4.9 mg/dL Magnesium Level 1.90 1.80-2.40 mg/dL Total Bilirubin 1.8 H 0.2-1.0 mg/dL Aspartate Amino Transf (AST/SGOT) 25 10-37 U/L Alanine Aminotransferase (ALT/SGPT) 21 12-78 U/L Alkaline Phosphatase 57 50-136 U/L Total Protein 5.9 L 6.0-8.3 g/dL Albumin 2.9 L 3.5-5.0 g/dL Vancomycin Level Trough 5.9 #L 10.0-20.0 UG/ML Test 02/23/25 15:53 02/23/25 04:58 Range/Units Bedside Glucose Comment Notified Nurse Immature Granulocyte % (Auto) 4.7 H 0-1 % Neutrophils (%) (Auto) 66.0 40.0-77.0 % Lymphocytes (%) (Auto) 18.4 L 21.0-51.0 % Monocytes (%) (Auto) 8.9 3.0-13.0 % Eosinophils (%) (Auto) 1.5 0.0-8.0 % Basophils (%) (Auto) 0.5 0.0-5.0 % Neutrophils # (Auto) 9.7 H 1.8-7.7 K/uL Lymphocytes # (Auto) 2.7 1.0-4.8 K/uL Monocytes # (Auto) 1.3 H 0.1-1.0 K/uL Eosinophils # (Auto) 0.22 0.00-0.70 K/uL Basophils # (Auto) 0.08 0.00-0.20 K/uL Absolute Immature Granulocyte (auto 0.68 0-1 K/uL ASSESSMENT: Hospital-acquired pneumonia. Leukocytosis. Multivessel coronary artery disease, s/p CABG on 02/14/2025, s.p surgical removal of Impella. Postop anemia. Left Pleural effusion. Diabetes mellitus. Congestive heart failure. PLAN: Continue on Zosyn. Continue Vancomycin per pharmacy protocol. Continue GI prophylaxis. Continue diuretics Monitor electrolytes. Continue oxygen support. Continues on 1:1 sitter observation. This case was reviewed and discussed with my supervising physician Dr. Mckeon and the above assessment and plan was formulated and agreed upon. ATTESTATION BY PHYSICIAN I have seen and examined the patient. I reviewed the documentation, medical decision making, and treatment plan as noted by the mid-level provider above. I agree with the findings and plan of care. BERENICE MCKEON MD, [facility] L [facility] Feb 24, 2025 18:29
--- NOTE | 2025-02-24 19:45 | PN ---
[facility] PROGRESS NOTE Date Patient Seen: Feb 24, 2025 Time of Visit: 19:42 Supervising Physician: MARGARITA RINALDI MD Primary Care Physician: KELLEY ENCINAS MD Outpatient Specialists: Inpatient Consults: BIS PROBLEM LIST: CAD, status post CABG x3 Impella and a intra-aortic balloon pump support Type 2 diabetes Congested heart failure EF 20% Obstructive coronary artery disease Atherosclerosis Primary hypertension Morbid obesity; BMI 36 Cardiogenic shock INTERVAL HISTORY: Patient is now on room air. He is more awake, more alert and following commands He is off pressors, hemodynamically stable Ankle pain improved, x-ray of the ankle negative for acute findings No fevers, no chills. Cultures remain negative Bicarbonate is 19 consistent with anion gap acidosis however ABG shows an ABG pH of 7.45 REVIEW OF SYSTEMS: 12 point ROS reviewed with patient. Pertinent positives mentioned above. Otherwise negative. PHYSICAL EXAM: GENERAL: Patient comfortable in bed, HEENT: EOMI, Sclera non icteric, moist mucosa NECK: Supple, no JVD, trachea midline LUNGS: Clear breath sounds bilaterally. No wheezes HEART: Regular rate and rhythm. Normal S1 and S2, without murmurs sternum wound looks clean, no bleeding or discharge. ABD: Abdomen soft, nontender. Bowel sounds present EXT: Edema and hyperemia to the right ankle have improved compared to yesterday NEURO: Awake alert and oriented Vital Signs (last 8hr) Date Time Temp Pulse Resp B/P (MAP) Pulse Ox O2 Delivery O2 Flow Rate FiO2 02/24/25 19:05 98.4 73 18 103/60 98 Room Air 02/24/25 18:00 71 21 114/72 100 Room Air 02/24/25 16:00 98.2 72 21 116/60 100 Room Air 02/24/25 15:00 74 21 116/46 96 Room Air 02/24/25 14:00 75 21 104/42 96 Room Air 02/24/25 13:00 74 21 94/52 95 Room Air 02/24/25 12:45 72 21 96/58 96 Room Air 02/24/25 12:30 73 21 91/52 96 Room Air 02/24/25 12:15 73 21 93/55 95 Room Air 02/24/25 12:00 100 Room Air* 0 21 02/24/25 12:00 74 21 96/58 95 Room Air 02/24/25 11:45 98.4 74 35 108/49 95 LABS: Hematology Labs: Test 02/24/25 04:59 02/23/25 04:58 Range/Units White Blood Count 15.8 H 4.8-10.8 K/uL Red Blood Count 2.91 L 4.50-6.20 MIL/uL Hemoglobin 8.6 L 14.0-18.0 g/dL Hematocrit 26.0 L 42-54 % Mean Corpuscular Volume 89.3 79-99 fL Mean Corpuscular Hemoglobin 29.6 27.0-33.0 pg Mean Corpuscular Hemoglobin Concent 33.1 32.0-36.0 g/dL Red Cell Distribution Width 15.8 H 11.0-15.5 % Platelet Count 367 130-400 K/uL Mean Platelet Volume 10.5 7.5-10.5 fL Nucleated Red Blood Cells 0.0 0.0-0.19 % Immature Granulocyte % (Auto) 4.7 H 0-1 % Neutrophils (%) (Auto) 66.0 40.0-77.0 % Lymphocytes (%) (Auto) 18.4 L 21.0-51.0 % Monocytes (%) (Auto) 8.9 3.0-13.0 % Eosinophils (%) (Auto) 1.5 0.0-8.0 % Basophils (%) (Auto) 0.5 0.0-5.0 % Neutrophils # (Auto) 9.7 H 1.8-7.7 K/uL Lymphocytes # (Auto) 2.7 1.0-4.8 K/uL Monocytes # (Auto) 1.3 H 0.1-1.0 K/uL Eosinophils # (Auto) 0.22 0.00-0.70 K/uL Basophils # (Auto) 0.08 0.00-0.20 K/uL Absolute Immature Granulocyte (auto 0.68 0-1 K/uL Chemistry Labs: Test 02/24/25 15:48 02/24/25 12:26 02/24/25 04:59 02/23/25 15:53 Range/Units Whole Blood Glucose 152 H 70-110 MG/DL Sodium Level 134 L 136-145 mmol/L Potassium Level 3.9 3.5-5.1 mmol/L Chloride Level 96 L 101-111 mmol/L Carbon Dioxide Level 22 21-32 mmol/L Blood Urea Nitrogen 18 7-18 mg/dL Creatinine 1.0 0.5-1.3 mg/dL Glomerular Filtration Rate Calc 78 >90 mL/min Random Glucose 141 H 70-105 mg/dL Total Calcium 8.5 8.5-10.1 mg/dL Lactic Acid Level 1.1 0.8-2.5 mmol/L Phosphorus Level 2.9 2.5-4.9 mg/dL Magnesium Level 1.90 1.80-2.40 mg/dL Total Bilirubin 1.8 H 0.2-1.0 mg/dL Aspartate Amino Transf (AST/SGOT) 25 10-37 U/L Alanine Aminotransferase (ALT/SGPT) 21 12-78 U/L Alkaline Phosphatase 57 50-136 U/L Total Protein 5.9 L 6.0-8.3 g/dL Albumin 2.9 L 3.5-5.0 g/dL Bedside Glucose Comment Notified Nurse DIAGNOSTICS / RADIOLOGY RESULTS: Right ankle x-ray negative for acute findings Chest x-ray shows small left pleural effusion PLAN Complete three days of oral prednisone and then stop Downgrade to PCCU Stop vancomycin Complete five days of Zosyn and then stop NEURO: Minimize central acting medications as possible. Fall Precautions. Well lighted room through the day and minimize interruptions through the night to prevent acute delirium. PULMONARY: Supplemental 02 as needed Titrate Fio2 to keep Spo2 > or = 90% DuoNebs and CPT as needed IS hourly while awake for pulmonary hygiene Out of bed to chair as tolerated VAP Bundle Vent/BIPAP Settings: [ ] Driving pressure: [ ] P Plat: [ ] Static C: [ ] Static R: [ ] P/F Ratio: [ ] CARDIOVASCULAR: Follow hemodynamics. Titrate vasopressor to keep MAP >65 or systolic blood pressure >95mmHg DIPS: [ ] LINES: [ ] GI & NUTRITION: Continue nutritional support Aspirations precautions Prokinetic agents and laxatives as needed KIDNEYS & ELECTROLYTES: Strict monitoring of intake and output Daily weights Avoid nephrotoxic agents Monitor electrolytes and replace as needed Goal urine output of 30mL/hr or 0.5mL/kg/hr Urine output: [ ] Fluid Balance: [ ] ENDOCRINE: Maintain blood glucose between 100-180 at all times. Insulin sliding scale for blood glucose management INFECTIOUS DISEASE: Trend temperature. Caldwell-culture if febrile. Micro: [ ] Antibiotics: [ ] HEMATOLOGY & COAGULATION: Monitor H&H. Keep Hgb > 7 Transfuse 1 unit of PRBC for Hgb < 7 Transfuse 1 pack of platelets of platelets < 20, 000 Watch for any signs and symptoms of bleeding SKIN: Pressure ulcer prevention per facility protocol Rehab: PT/OT Prophylaxis: GI: [Protonix ] DVT: [Lovenox ] Code Status: Full Resuscitation Disposition: Downgrade to PCCU and continue telemetry I personally scribed for MARGARITA RINALDI MD ([email or web address]) on 02/24/25 at 19:45. Electronically submitted by Jason Garcia ([email or web address]). MARGARITA RINALDI MD Feb 24, 2025 19:45
[2025-02-24] MEDS: ZOSYN 3.375GM+NS 50ML 50 ML IVPB SCH (21:14)
[2025-02-25] VITALS (8 sets, daily range): BP systolic 104–114; BP diastolic 57–77; PULSE 65–80; RESP 16–18; TEMP 97.1–98.3; O2SAT 96–99
[2025-02-25 05:00] LABS: IMMATURE GRANULOCYTE ABSOLUTE 0.35 K/uL (0-1); NUCLEATED RED BLOOD CELLS 0.0 % (0.0-0.19); PLATELET COUNT (AUTO) 425 K/uL (130-400); RED BLOOD CELL COUNT(AUTO) 2.96 MIL/uL (4.50-6.20); RED CELL DISTRIBUTION WIDTH 15.8 % (11.0-15.5); WHITE BLOOD COUNT (AUTO) 17.2 K/uL (4.8-10.8)
[2025-02-25 05:25] LABS: ASPARTATE AMINOTRANSFERASE 21.0 U/L (10-37); CREATININE 1.1 mg/dL (0.5-1.3); GLOMERULAR FILTR. RATE CALC 70.0 mL/min (>90); GLUCOSE,RANDOM 119.0 mg/dL (70-105); PHOSPHORUS 3.5 mg/dL (2.5-4.9); SODIUM SERUM 133.0 mmol/L (136-145); TOTAL PROTEIN, SERUM 6.1 g/dL (6.0-8.3); UREA NITROGEN, BLOOD 23.0 mg/dL (7-18)
--- NOTE | 2025-02-25 06:08 | HMCIMG ---
STUDY: X-RAY OF THE CHEST, 1 VIEW HISTORY: Follow-up. TECHNIQUE: A single AP portable view of the chest is submitted for interpretation. COMPARISON: Chest radiograph from 02/22/2025. FINDINGS: Pulmonary heck: A small left-sided pleural effusion persists and appears grossly similar to the prior study. There is an ill-defined, hazy, cosuxp-gqpli-[id number]???type opacity throughout the left hemithorax. No focal lobar consolidation or pneumothorax is identified. Cardiac silhouette: Cardiac silhouette appears enlarged, likely accentuated by AP projection and portable technique, similar to the prior radiograph. Mediastinum and renzo: Central airways and mediastinal contours are within normal limits without definite widening or discrete hilar mass. Osseous structures: Post???coronary artery bypass graft sternal sutures are present. No acute rib or thoracic spine fracture or destructive osseous lesion is identified. Miscellaneous: A left-sided PICC line with its tip in a satisfactory position. No subdiaphragmatic free air is identified. IMPRESSION: Left-sided PICC line with its tip in a satisfactory position. Small left pleural effusion with diffuse hazy opacity over the left hemithorax. Compared with the chest radiograph from 02/22/2025, the effusion and left lung opacity appear grossly similar. Post-CABG changes were again noted. /Karyn
--- NOTE | 2025-02-25 09:38 | HMCIMG ---
EXAM: CR Chest, 1 View. CLINICAL HISTORY: CABG COMPARISON: 02/24/2025 FINDINGS: A left-sided PICC line with its tip in the SVC. LUNGS: Persistent small left pleural effusion with left mid and lower zone airspace opacities. Grossly unchanged from the prior study dated 02/24/2025. PLEURAL SPACES: No pleural effusion or pneumothorax. MEDIASTINUM: Cardiac size is stable. Post-CABG changes. BONES: No aggressive appearing osseous lesion seen. IMPRESSION: 1. Persistent small left pleural effusion with left mid and lower zone airspace opacities, significantly unchanged from prior study. 2. Left-sided PICC line with tip in the SVC. /[place]
--- NOTE | 2025-02-25 12:03 | PN ---
[facility] PROGRESS NOTE Date Patient Seen: Feb 25, 2025 Time of Visit: 12:01 Interval History: No acute events overnight., patient is sitting seated recliner, currently requiring supplemental O2 by nasal cannula, currently denying any chest pain, palpitations dyspnea or any other anginal equivalents. Current creatinine 1.1, chest x-ray shows left pleural effusion, pulmonology is following. His balance is net-1610 mL, with a urine output of 2300 mL overnight Physical Examination: GENERAL: Patient comfortable in bed, HEENT: EOMI, Sclera non icteric, moist mucosa NECK: Supple, no JVD, trachea midline LUNGS: Clear breath sounds bilaterally. No wheezes HEART: Regular rate and rhythm. Normal S1 and S2, without murmurs sternum wound looks clean, no bleeding or discharge. ABD: Abdomen soft, nontender. Bowel sounds present EXT: Right ankle edema, hyperemia, tenderness NEURO: Awake alert and oriented Laboratory: [ ] Hematology Labs: Test 02/25/25 04:25 Range/Units White Blood Count 17.2 H 4.8-10.8 K/uL Red Blood Count 2.96 L 4.50-6.20 MIL/uL Hemoglobin 8.8 L 14.0-18.0 g/dL Hematocrit 26.6 L 42-54 % Mean Corpuscular Volume 89.9 79-99 fL Mean Corpuscular Hemoglobin 29.7 27.0-33.0 pg Mean Corpuscular Hemoglobin Concent 33.1 32.0-36.0 g/dL Red Cell Distribution Width 15.8 H 11.0-15.5 % Platelet Count 425 H 130-400 K/uL Mean Platelet Volume 10.4 7.5-10.5 fL Immature Granulocyte % (Auto) 2.0 H 0-1 % Neutrophils (%) (Auto) 77.3 H 40.0-77.0 % Lymphocytes (%) (Auto) 13.5 L 21.0-51.0 % Monocytes (%) (Auto) 6.6 3.0-13.0 % Eosinophils (%) (Auto) 0.3 0.0-8.0 % Basophils (%) (Auto) 0.3 0.0-5.0 % Neutrophils # (Auto) 13.2 H 1.8-7.7 K/uL Lymphocytes # (Auto) 2.3 1.0-4.8 K/uL Monocytes # (Auto) 1.1 H 0.1-1.0 K/uL Eosinophils # (Auto) 0.05 0.00-0.70 K/uL Basophils # (Auto) 0.05 0.00-0.20 K/uL Absolute Immature Granulocyte (auto 0.35 0-1 K/uL Nucleated Red Blood Cells 0.0 0.0-0.19 % Chemistry Labs: Test 02/25/25 11:04 02/25/25 04:25 02/23/25 15:53 Range/Units Whole Blood Glucose 138 H 70-110 MG/DL Sodium Level 133 L 136-145 mmol/L Potassium Level 4.2 3.5-5.1 mmol/L Chloride Level 96 L 101-111 mmol/L Carbon Dioxide Level 20 L 21-32 mmol/L Blood Urea Nitrogen 23 H 7-18 mg/dL Creatinine 1.1 0.5-1.3 mg/dL Glomerular Filtration Rate Calc 70 >90 mL/min Random Glucose 119 H 70-105 mg/dL Lactic Acid Level 1.4 0.8-2.5 mmol/L Total Calcium 8.3 L 8.5-10.1 mg/dL Phosphorus Level 3.5 2.5-4.9 mg/dL Magnesium Level 2.30 1.80-2.40 mg/dL Total Bilirubin 1.5 H 0.2-1.0 mg/dL Aspartate Amino Transf (AST/SGOT) 21 10-37 U/L Alanine Aminotransferase (ALT/SGPT) 16 # 12-78 U/L Alkaline Phosphatase 61 50-136 U/L Total Protein 6.1 6.0-8.3 g/dL Albumin 3.1 L 3.5-5.0 g/dL Bedside Glucose Comment Notified Nurse Diagnostics / Radiology: [Copy/Paste Echos/Imaging Report here] 1. Non-STEMI. 2. Status post 3v CABG ( [id number] ) with left atrial appendage clipping with insertion of IABP and Impella 02/14/2025. 3. Ischemic cardiomyopathy. 4. Postoperative blood loss anemia. 5. Type 2 diabetes mellitus. 6. History of CVA. #NSTEMI s/p Impella assisted CABG 3v (BISHOP to LAD, SVG to OM, SVG R PDA) with Left atrial clipping with a 45-mm AtriCure clip on 02/04/[address] Alexis -IABP discontinued 02/15 -Trop peak at 14,217, has downtrended to [id number] -patient currently denies any cardiac symptoms or anginal equivalents. -keep on telemetry, monitor/replace electrolytes as needed -Continue aspirin 81 mg qd, Atorvastatin 40mg q hs, and Coreg 3.125 mg every 12 hours -Rest of care per CV surgery ] #HFrEF ICM-LVEF 25-30 %-NYHA II Compensated and euvolemic on exam 2D echocardiogram (02/19/2025) LVEF 25-30%, anterior, anteroseptal wall is thinned and akinetic, anterior lateral wall is hypokinetic. Strict I's and O's and daily weights continue Lasix 20 mg IV every 12 hours. Creatinine 1.1 Currently requiring supplemental O2 by nasal cannula, currently denying any ch est pain, palpitations dyspnea or any other anginal equivalents. C hest x-ray shows left pleural effusion, pulmonology is following. His balance is net-1610 mL, with a urine output of 2300 mL overnight Optimize GDM T: Jardiance 10 mg daily, Coreg 3.125 mg every 12 hours, [id number] mg daily Unable to initiate Entresto due to soft blood pressures. Thank you for this consult cardiology will continue to follow along Gerry castillo MD ATTESTATION BY PHYSICIAN I have seen and examined the patient, reviewed the above documentation, participated in medical decision making, made necessary modifications, and agree with the treatment plan as documented by my mid-level provider above. MD FELISA Sorensen JAMES R MD Feb 25, 2025 12:03
--- NOTE | 2025-02-25 12:54 | PN ---
[facility] PROGRESS NOTE Date Patient Seen: Feb 25, 2025 Time of Visit: 12:51 Supervising Physician: HERNANDEZ TALLEY MD Primary Care Physician: KELLEY ENCINAS MD Outpatient Specialists: Inpatient Consults: BIS PROBLEM LIST: CAD, status post CABG x3 Impella and a intra-aortic balloon pump support Type 2 diabetes with hyperglycemia Congested heart failure EF 20% Obstructive coronary artery disease Atherosclerosis Primary hypertension Morbid obesity; BMI 36 Cardiogenic shock; resolved INTERVAL HISTORY: Mr. Coffey is in bed, eating lunch He is awake, alert, on room air, no acute distress Afebrile, no chest pain Denies cough, denies congestion Up and ambulatory in his hospital room No complaints REVIEW OF SYSTEMS: 12 point ROS reviewed with patient. Pertinent positives mentioned above. Otherwise negative. PHYSICAL EXAM: GENERAL: Patient comfortable in bed, HEENT: EOMI, Sclera non icteric, moist mucosa NECK: Supple, no JVD, trachea midline LUNGS: Clear breath sounds bilaterally. No wheezes HEART: Regular rate and rhythm. Normal S1 and S2, without murmurs sternum wound looks clean, no bleeding or discharge. ABD: Abdomen soft, nontender. Bowel sounds present EXT: Edema and hyperemia to the right ankle have improved compared to yesterday NEURO: Awake alert and oriented Vital Signs (last 8hr) Date Time Temp Pulse Resp B/P (MAP) Pulse Ox O2 Delivery O2 Flow Rate FiO2 02/25/25 09:31 102/58 02/25/25 08:00 97.2 68 18 105/57 99 Nasal Cannula 2.0 02/25/25 07:11 80 18 N/Cannula Low lpm 2.0 28 LABS: Hematology Labs: Test 02/25/25 04:25 Range/Units White Blood Count 17.2 H 4.8-10.8 K/uL Red Blood Count 2.96 L 4.50-6.20 MIL/uL Hemoglobin 8.8 L 14.0-18.0 g/dL Hematocrit 26.6 L 42-54 % Mean Corpuscular Volume 89.9 79-99 fL Mean Corpuscular Hemoglobin 29.7 27.0-33.0 pg Mean Corpuscular Hemoglobin Concent 33.1 32.0-36.0 g/dL Red Cell Distribution Width 15.8 H 11.0-15.5 % Platelet Count 425 H 130-400 K/uL Mean Platelet Volume 10.4 7.5-10.5 fL Immature Granulocyte % (Auto) 2.0 H 0-1 % Neutrophils (%) (Auto) 77.3 H 40.0-77.0 % Lymphocytes (%) (Auto) 13.5 L 21.0-51.0 % Monocytes (%) (Auto) 6.6 3.0-13.0 % Eosinophils (%) (Auto) 0.3 0.0-8.0 % Basophils (%) (Auto) 0.3 0.0-5.0 % Neutrophils # (Auto) 13.2 H 1.8-7.7 K/uL Lymphocytes # (Auto) 2.3 1.0-4.8 K/uL Monocytes # (Auto) 1.1 H 0.1-1.0 K/uL Eosinophils # (Auto) 0.05 0.00-0.70 K/uL Basophils # (Auto) 0.05 0.00-0.20 K/uL Absolute Immature Granulocyte (auto 0.35 0-1 K/uL Nucleated Red Blood Cells 0.0 0.0-0.19 % Chemistry Labs: Test 02/25/25 11:04 02/25/25 04:25 02/23/25 15:53 Range/Units Whole Blood Glucose 138 H 70-110 MG/DL Sodium Level 133 L 136-145 mmol/L Potassium Level 4.2 3.5-5.1 mmol/L Chloride Level 96 L 101-111 mmol/L Carbon Dioxide Level 20 L 21-32 mmol/L Blood Urea Nitrogen 23 H 7-18 mg/dL Creatinine 1.1 0.5-1.3 mg/dL Glomerular Filtration Rate Calc 70 >90 mL/min Random Glucose 119 H 70-105 mg/dL Lactic Acid Level 1.4 0.8-2.5 mmol/L Total Calcium 8.3 L 8.5-10.1 mg/dL Phosphorus Level 3.5 2.5-4.9 mg/dL Magnesium Level 2.30 1.80-2.40 mg/dL Total Bilirubin 1.5 H 0.2-1.0 mg/dL Aspartate Amino Transf (AST/SGOT) 21 10-37 U/L Alanine Aminotransferase (ALT/SGPT) 16 # 12-78 U/L Alkaline Phosphatase 61 50-136 U/L Total Protein 6.1 6.0-8.3 g/dL Albumin 3.1 L 3.5-5.0 g/dL Bedside Glucose Comment Notified Nurse DIAGNOSTICS / RADIOLOGY RESULTS: Small pleural effusion to the left lung PLAN Pleural effusion is too small and does not require thoracentesis at this time as patient is on room air, saturating above 95% and without dyspnea or orthopnea continue incentive spirometry continue diuresis cardiac diet optimize cardiac medications continue aspirin continue statin continue beta estela NEURO: Minimize central acting medications as possible. Maintain fall precautions, adequate lighting during the day PULMONARY: Supplemental 02 as needed. Maintain aspiration precautions at all times CARDIOVASCULAR: Follow hemodynamics. Vital signs per facility protocol GI & NUTRITION: Continue with nutritional support. Continue stool softeners and laxatives as needed. KIDNEYS & ELECTROLYTES: Strict monitoring of intake, output and overall fluid balance. Avoid nephrotoxic medications to the extent possible. Medications to be dosed according to renal function. Monitor electrolytes and replace as needed ENDOCRINE: Maintain blood glucose between 100-180 at all times. Hypoglycemia protocol in place INFECTIOUS DISEASE: Trend temperature, WBC and procalcitonin level Follow cultures, deescalate antibiotics as soon as possible. Panculture if new onset fever ONCOLOGY/HEMATOLOGY/COAGULATION: Monitor for s/s of bleeding Monitor hemoglobin, coagulation studies as needed SKIN: Pressure ulcer prevention per facility protocol Specialty mattress ORTHO/REHAB: Continue PT/OT Prophylaxis: Continue GI and DVT prophylaxis Code Status: Full Resuscitation Disposition: as per cardiovascular I personally scribed for HERNANDEZ YU MD ([email or web address]) on 02/25/25 at 12:54. Electronically submitted by Jason Garcia ([email or web address]). HERNANDEZ YU MD Feb 25, 2025 12:54
--- NOTE | 2025-02-25 16:25 | PN ---
[facility] PROGRESS NOTE Date of Service: Feb 25, 2025 Time of Service: 16:14 HISTORY OF PRESENT ILLNESS: This is a 74-year-old male,a [employer] by [employer] whith past medical history of diabetes, hyperlipidemia and MD/coronary artery disease with cardiac stent who presented to the Ed for complaints of midsternal chest pain that is non radiating associated with diaphoresis and this happened when patient was laying down in bed aroun 11:50 pm last night and decided to come to the ED for evaluation.Patient reports pain was persistent.As per patient he had a history of heart attack before and underwent a stent placement.Patient reports the only medication he is taking is Metformin.Patient states he is supposed to be on Aspirin but has stopped taking it.Patient reports he occasionally drinks beer and last drink was yesterday ,had 2 beers he said. Seen and examined patient in the ER awake,alert and coherent,appears comfortable.Patient denies fever,chills,cough,nausea,vomiting,palpitation and shortness of breath. Latest vital signs temperature 98.2, heart rate 75, blood pressure 124/70 saturation 97% on room air. Labs: CBC unremarkable. Chloride 99, BUN 21, random glucose 469 to 439 to 327. Troponin from -. ECG result revealed revealed sinus rhythm heart rate 85 with atrial premature complex anterolateral infarct age indeterminate. Second EKG result revealed sinus rhythm heart rate 73 with left anterior fascicular block. Probable anterolateral infarct age indeterminate. Abnormal T consider ischemia lateral leads.. Chest x-ray result revealed no acute cardiopulmonary process is evident. While in the ER patient received 1500 mL NS bolus, insulin 5 units IV, aspirin 325 mg p.o. and patient was started on heparin drip per [facility] protocol. SUBJECTIVE: 02/10/25: Patient was seen and evaluated in ED9. Patient was alert, awake and orientedX3. Patient reports that he doesn't have any chest pain today. Patient reports occasional shortness of breath during nights. Patient denies any shortness of breath, nausea, vomiting, palpitations and lightheadedness. Patient denies any abdominal pain, burning urination. Patient mentions that he only takes metformin 3-4 times per week and has stopped taking aspirin because it wasn't reconciled. Troponin from -. 2D ECHO was done, pending results. Patient is currently on Heparin drip 02/11/25: Patient was evaluated at the bedside this morning. No overnight event. He is AAO x3. patient reported that he does not have chest pain or shortness of breath. He is hemodynamically stable. The labs remarkable for potassium 3.3, magnesium 1.6, HbA1c 13.9, troponin 77884. Left heart catheterization revealed severe triple-vessel disease. Echocardiogram revealed 25% ejection fraction with segmental akinesis. CT surgery was consulted who recommended CABG with Impella left ventricle assist. Family to decide about the procedure. He is currently on heparin drip, aspirin. Endocrinology on board. Rest of the plan as discussed below. 02/12/25: Patient was evaluated at the bedside this morning. No overnight event. He is AAO x3. patient reported that he does not have chest pain or shortness of breath. He is hemodynamically stable. Cardiology is on board and Dr. Blanton have suggested low-dose beta estela like metoprolol tartrate 12.5 mg b.i.d. for his heart failure. Dr Kaur still recommends CABG with 5.5 Impella LVAD and the patient agrees to it. We will continue Entresto, Aldactone, Jardiance, aspirin, Lasix as per CT surgeon recommendations. Today his potassium is 3.1 and we would like to be above 4 for CABG patients. So we will replace potassium 02/13/25: Patient was seen and evaluated in room 201. Patient reports feeling better. patient denies any chest pain, shortness of breath. He is continuing on Entresto, Aldactone, Jardiance, aspirin, Lasix as per CT surgeon recommendations.Patients Potassium today is 3.7, will continue replacing potassium. Patients was present along with the patient, she has a few question about the CABG procedure which she wanted to ask Dr. Alexis. 02/14/25. Patient was undergoing CABG procedure today in the morning. 02/15/25: Patient was seen and evaluated in room 213. Patient status post CABG day 1. Patient denies any fever, chills, shortness of breath. Patient complaints of pain along the incision. Patient is on IABP and Impella support. patient is on Vasopressin and Norepinephrine drip. Entresto, Aldactone, Jardiance were discontinued by Dr. Alexis. CT surgery are on the case and will follow their recommendations. 02/16/25: Patient was seen and evaluated in room 213. Patient status post CABG day 2. patient was asleep when we went bedside. Spoke with the nurse regarding overnights and she mentioned that patient was a bit confused in the night but later improved with sleep. Patient is continuing on Epinephrine drip. Patient was weaned off IABP and is currently only on Impella. Patient was started on Vancomycin and cefepime due to elevated WBC levels and findings suggestive of pneumonia on chest x-ray 02/17/25: Patient was seen and evaluated in room 213. Patient status post CABG day 2. patient was asleep when we went bedside. Spoke with the nurse regarding overnights and he mentioned that patient was started on lasix protocol. Patient is continuing on Epinephrine drip and Impella. Critical care are on the case and will follow their recommendations. 02/18/25: Patient was seen and examined at bedside. He is status post CABG day 3. He continues on Lasix drip 2.5, With Impella P3 support and epinephrine drip. His total output in the past 24 hours has been optimal, 4740 versus 2165 input. No acute events overnight. We will follow CTS recommendations regarding further weaning off Impella. 02/19/25: Patient was seen and evaluated in room 210. He is status post CABG day 4. He continues on Lasix drip 2.5, With Impella P3 support and epinephrine drip. His total output in the past 24 hours has been 2905 versus 4072. No acute overnight. Patient is scheduled for possible impella removal tomorrow. 02/20/25: Patient was seen and evaluated in room 210. He is status post CABG day 5. He continues on Lasix drip 2.5, Impella setting have been maintained at P3 settings. He is continuing on epinephrine drip. Cefepime was discontinued yesterday because overnight the patient was confused, agitated and combative suspecting the cause of his confusion and started on Zosyn. His total output in the past 24 hours has been 2675 versus 2206. Patient is scheduled for possible impella removal tomorrow. 02/21/25: Patient was seen and evaluated in room 210. He is status post CABG day 6. Patient is continuing on Epinephrine drip. patient was started on Lasix 20mg IV. Patient is scheduled for impella removal today. Patient is continuing on Zosyn. His total output in the past 24 hours has been 6700 versus 1785. 02/22/25: Patient was seen and evaluated in room 210. He is status post CABG day 7. Patient reports feeling better and he doesn't have any active complaints, Impella was removed yesterday and patient is continuing on Epinephrine drip. patient denies any shortness of breath, fever, chills and chest pain. Patient is continuing on Zosyn. His total output in the past 24 hours has been 3650 versus 1775. 02/23/25: Patient was seen and evaluated in room 210. He is status post CABG day 8. Patient complains of pain in left lower extremity, Patient denies any erythema, chest pain. Patient denies any fever, chills, shortness of breath, and dizziness. Ankle X-ray, US venous Doppler was ordered, will follow the results. Patient is continuing on lasix 20mg. His total output in the past 24 hours has been 4900 versus 1829. 02/24/25: Patient was seen and evaluated in room 210. He is status post CABG day 9. Patient is alert, awake, oriented X3. Patient reports that his pain in the left lower leg is getting better. Venous US ordered yesterday came back unre markable. Patient denies any chest pain, shortness of breath. Epinephrine drip was discontinued. Patient was started back on Coreg 3.125mg, Jardiance 10mg under cardiology recommendations. His total output in the past 24 hours has been 3300 versus 1560. 02/25/25: Patient was seen and evaluated in room 233 along with his . He is status post CABG day 10. Patient's mentioned that the patient passed blood clots in urine, Patient denies any burning micturition or difficulty urinating. Patient is alert, awake, oriented X3. Patient denies any pain in left lower extremity, Patient denies any chest pain, shortness of breath. Jardiance was stopped because of elevated bicarb. His total output in the past 24 hours has been 2300 versus 690. REVIEW OF SYSTEMS CONSTITUTIONAL: Denies fevers, chills, or night sweats. No unintentional weight loss reported. NEUROLOGICAL: Denies headache, amaurosis fugax, motor weakness, sensory deficit, vertigo/spinning sensation, gait abnormalities, or tremors. ENT: No hearing loss, otalgia, otorrhea, rhinitis, rhinorrhea, hoarseness, or sore throat. CARDIOVASCULAR: Denies chest pain, dyspnea on exertion, orthopnea, paroxysmal nocturnal dyspnea, palpitations, life-threatening arrhythmias, claudication. PULMONARY: Denies any cough, phlegm/sputum, hemoptysis, pleuritic chest pain. GASTROINTESTINAL: Denies any type of dysphagia to either liquids or solids. Denies nausea, vomiting, pyrosis, early satiety, abdominal pain, diarrhea, constipation, or changes in stool consistency or caliber. Denies coffee-ground emesis, hematemesis, hematochezia, or melanotic stools. GENITOURINARY: Denies frequency, urgency, nocturia, hematuria or incontinence (Storage/Irritative symptoms.) Low urinary stream, straining to void, urinary intermittency or hesitancy, splitting of the voiding stream, terminal dribbling. PHYSICAL EXAM GENERAL APPEARANCE: The patient is awake, alert, and oriented, in no acute cardiopulmonary distress. NEUROLOGICAL: Cranial nerves II-XII grossly intact. Motor is 5/5 in bilateral upper and lower extremities proximal to distal. No sensory deficits. HEENT: Face is symmetric. Pupils are equal and reactive. Extraocular movements are intact. NECK: Supple. No JVD. No thyromegaly. No submental, submandibular, pre-/pos tauricular, occipital or supraclavicular lymphadenopathy. CHEST: Normal chest expansion. No Telemetry. LUNGS: Absence of any rales, rhonchi or any wheezing. CARDIOVASCULAR: Regular. S1 and S2 normal. No appreciable rubs, murmurs or gallops. ABDOMEN: Soft, nontender, and nondistended. There is no rebound, voluntary guarding, or rigidity. : Deferred. No De Jesus. EXTREMITIES: Non-edematous and not cyanotic. No clubbing. Good capillary refill. SKIN: No skin breakdown. Vital Signs (last 8hr) Date Time Temp Pulse Resp B/P (MAP) Pulse Ox O2 Delivery O2 Flow Rate FiO2 02/25/25 12:00 98.1 72 17 109/58 100 Nasal Cannula 2.0 02/25/25 09:31 102/58 LABS: Laboratory: Test 02/25/25 15:55 02/25/25 04:25 02/24/25 12:29 02/24/25 04:59 Range/Units Whole Blood Glucose 189 H 70-110 MG/DL White Blood Count 17.2 H 4.8-10.8 K/uL Red Blood Count 2.96 L 4.50-6.20 MIL/uL Hemoglobin 8.8 L 14.0-18.0 g/dL Hematocrit 26.6 L 42-54 % Mean Corpuscular Volume 89.9 79-99 fL Mean Corpuscular Hemoglobin 29.7 27.0-33.0 pg Mean Corpuscular Hemoglobin Concent 33.1 32.0-36.0 g/dL Red Cell Distribution Width 15.8 H 11.0-15.5 % Platelet Count 425 H 130-400 K/uL Mean Platelet Volume 10.4 7.5-10.5 fL Immature Granulocyte % (Auto) 2.0 H 0-1 % Neutrophils (%) (Auto) 77.3 H 40.0-77.0 % Lymphocytes (%) (Auto) 13.5 L 21.0-51.0 % Monocytes (%) (Auto) 6.6 3.0-13.0 % Eosinophils (%) (Auto) 0.3 0.0-8.0 % Basophils (%) (Auto) 0.3 0.0-5.0 % Neutrophils # (Auto) 13.2 H 1.8-7.7 K/uL Lymphocytes # (Auto) 2.3 1.0-4.8 K/uL Monocytes # (Auto) 1.1 H 0.1-1.0 K/uL Eosinophils # (Auto) 0.05 0.00-0.70 K/uL Basophils # (Auto) 0.05 0.00-0.20 K/uL Absolute Immature Granulocyte (auto 0.35 0-1 K/uL Nucleated Red Blood Cells 0.0 0.0-0.19 % Sodium Level 133 L 136-145 mmol/L Potassium Level 4.2 3.5-5.1 mmol/L Chloride Level 96 L 101-111 mmol/L Carbon Dioxide Level 20 L 21-32 mmol/L Blood Urea Nitrogen 23 H 7-18 mg/dL Creatinine 1.1 0.5-1.3 mg/dL Glomerular Filtration Rate Calc 70 >90 mL/min Random Glucose 119 H 70-105 mg/dL Lactic Acid Level 1.4 0.8-2.5 mmol/L Total Calcium 8.3 L 8.5-10.1 mg/dL Phosphorus Level 3.5 2.5-4.9 mg/dL Magnesium Level 2.30 1.80-2.40 mg/dL Total Bilirubin 1.5 H 0.2-1.0 mg/dL Aspartate Amino Transf (AST/SGOT) 21 10-37 U/L Alanine Aminotransferase (ALT/SGPT) 16 # 12-78 U/L Alkaline Phosphatase 61 50-136 U/L Total Protein 6.1 6.0-8.3 g/dL Albumin 3.1 L 3.5-5.0 g/dL Blood Gas Specimen Type Arterial Arterial Blood pH 7.484 H 7.350-7.450 Arterial Blood Partial Pressure CO2 29 L 35-48 mmHg Arterial Blood Partial Pressure O2 67.4 L 83.0-108.0 mmHg Arterial Blood HCO3 21.5 21.0-28.0 mmol/L Arterial Blood Oxygen Saturation 94.9 94.0-98.0 % Arterial Blood Base Excess -0.7 -2.0-3.0 mmol/L Blood Gas Temperature 37.0 35.5-37.0 CELSIUS Blood Gas Vent Mode ROOM AIR ROOM AIR FiO2 21.0 % Blood Gas Specimen Comment HIWOT COOK Vancomycin Level Trough 5.9 #L 10.0-20.0 UG/ML Current Medications Medications (Trade) Dose Ordered Sig/Carol Route PRN Reason Start Time Stop Time Status Last Admin Dose Admin Acetaminophen (TYLenol 325MG TAB) 650 mg Q4H PRN PO MILD PAIN (1-3) 02/10/25 05:00 02/14/25 10:05 DC Acetaminophen (TYLenol 325MG TAB) 650 mg Q4H PRN PO Temp >38.3C(AFTER EXTUBATION) 02/14/25 10:00 03/16/25 09:59 Acetaminophen (TYLenol 325MG TAB) 650 mg Q6H PRN PO TEMPERATURE GREATER THAN 101.5 02/10/25 05:00 02/14/25 10:17 DC 02/12/25 17:13 650 MG Acetaminophen (TYLenol 325MG TAB) 650 mg Q6H PRN PO MILD PAIN (1-3) 02/14/25 10:00 03/16/25 09:59 Acetaminophen (TYLenol 650MG SUPPOSITORY) 650 mg Q4H PRN RC Temp >38.3C WHILE INTUBATED 02/14/25 10:00 02/23/25 11:52 DC Acetaminophen (acetaMINOPHEN 1,000MG/100ML) 1,000 mg Q6H6 IV 02/14/25 14:00 02/15/25 13:59 DC 02/15/25 12:14 1,000 MG Albumin Human 50 ml @ 0 mls/hr Q12H9 IV 02/20/25 09:00 02/24/25 08:42 DC 02/24/25 08:15 100 MLS/HR Albumin Human 250 ml @ 0 mls/hr AD IV 02/14/25 15:30 02/18/25 10:40 DC 02/18/25 10:27 250 MLS/HR Albumin Human 250 ml @ 0 mls/hr AD IV 02/18/25 10:30 02/20/25 09:03 DC Albumin Human 250 ml @ 0 mls/hr AD PRN IV IF HEMODYNAMICALLY UNSTABLE 02/14/25 10:00 02/14/25 14:42 DC 02/14/25 14:42 500 MLS/HR Aminocaproic Acid 03844 mg/Sodium Chloride 310 ml @ 25 mls/hr AD IV 02/14/25 10:00 02/14/25 10:19 DC Aminocaproic Acid 41284 mg/Sodium Chloride 480 ml @ 0 mls/hr AD PRN IV BLEEDING CONTROL 02/14/25 06:30 02/23/25 11:52 DC Aminocaproic Acid 37731 mg/Sodium Chloride 480 ml @ 0 mls/hr AD PRN IV BLEEDING CONTROL 02/14/25 07:00 02/14/25 06:51 DC Aspirin (Aspirin 325mg Tab) 325 mg ONCE PO 02/10/25 14:30 02/10/25 17:22 DC 02/10/25 14:32 325 MG Aspirin (Aspirin 81mg Ec Tab) 81 mg DAILY PO 02/10/25 09:00 03/12/25 08:59 02/25/25 09:30 81 MG Atorvastatin Calcium (LIPItor 40MG) 40 mg HS PO 02/14/25 21:00 03/16/25 20:59 02/24/25 20:51 40 MG Calcium Gluconate 1 gm/Sodium Chloride 60 ml @ 200 mls/hr AD PRN IV HYPOCALCEMIA 02/14/25 10:00 03/16/25 09:59 02/21/25 08:36 200 MLS/HR Carvedilol (Coreg 3.125MG) 3.125 mg BID PO 02/20/25 21:00 02/24/25 06:13 DC Carvedilol (Coreg 3.125MG) 3.125 mg BID PO 02/24/25 09:00 03/26/25 08:59 02/25/25 09:31 3.125 MG Cefazolin Sodium (Ancef) 2 gm ONCALL IVP 02/13/25 20:00 02/14/25 18:51 DC 02/14/25 08:50 2 GM Cefazolin Sodium (Ancef) 2 gm Q8H IVPB 02/14/25 15:00 02/15/25 07:01 DC 02/15/25 06:25 2 GM Cefepime HCl (MAXipime 1 GM vial) 1 gm Q12H IVPB 02/16/25 10:30 02/20/25 08:16 DC 02/19/25 22:54 1 GM Clopidogrel Bisulfate (plaVIX 300MG TAB) 600 mg ONCE PO 02/10/25 14:00 02/10/25 17:22 DC 02/10/25 14:19 600 MG Clopidogrel Bisulfate (plaVIX 75MG) 75 mg DAILY PO 02/11/25 09:00 02/11/25 07:28 DC Dexmedetomidine/ Sodium Chloride (PRECEdex 400MCG/ 100ML-NS) 400 mcg PROTOCOL IV 02/14/25 10:00 02/15/25 09:59 DC Dexmedetomidine/ Sodium Chloride (PRECEdex 400MCG/ 100ML-NS) 400 mcg PROTOCOL IV 02/20/25 07:30 02/22/25 15:01 DC 02/22/25 05:51 400 MCG Dexmedetomidine/ Sodium Chloride (PRECEdex 400MCG/ 100ML-NS) 400 mcg PROTOCOL IV 02/23/25 00:00 03/25/25 00:00 02/23/25 00:17 400 MCG Dextrose (D50w) 50 ml AD PRN IV HYPOGLYCEMIA PROTOCOL 02/10/25 05:00 02/14/25 10:17 DC Dextrose (D50w) 50 ml AD PRN IV HYPOGLYCEMIA PROTOCOL 02/14/25 10:00 03/16/25 09:59 Docusate Sodium (COLace 100MG CAP) 100 mg BID PO 02/14/25 21:00 03/16/25 20:59 02/25/25 09:31 100 MG Empaglifozin (Jardiance 10mg) 10 mg DAILY PO 02/10/25 14:30 02/14/25 09:59 DC 02/13/25 10:52 10 MG Empaglifozin (Jardiance 10mg) 10 mg DAILY PO 02/20/25 09:00 02/22/25 15:01 DC 02/22/25 09:38 10 MG Empaglifozin (Jardiance 10mg) 10 mg DAILY PO 02/24/25 09:00 02/24/25 13:01 DC 02/24/25 08:47 10 MG Enoxaparin Sodium (Lovenox) 30 mg DAILY SQ 02/17/25 09:00 03/19/25 08:59 02/25/25 09:30 30 MG Epinephrine HCl 10 mg/Sodium Chloride 250 ml @ 0 mls/hr AD PRN IV TITRATE 02/14/25 06:30 03/16/25 06:29 02/20/25 17:32 2.9 MLS/HR Epinephrine HCl 10 mg/Sodium Chloride 250 ml @ 0 mls/hr AD PRN IV TITRATE 02/14/25 07:00 02/14/25 06:51 DC Epinephrine HCl 10 mg/Sodium Chloride 250 ml @ 0 mls/hr AD PRN IV POST-OP CARDIOVASCULAR ORDERS 02/14/25 10:00 02/14/25 10:14 DC Famotidine (Pepcid 20mg Vial) 20 mg BID IV 02/14/25 21:00 02/16/25 07:58 DC 02/15/25 20:15 20 MG Famotidine (Pepcid 20mg Tab) 20 mg BID PO 02/16/25 09:00 02/17/25 07:09 DC 02/16/25 20:03 20 MG Famotidine (Pepcid 20mg Tab) 20 mg DAILY PO 02/10/25 09:00 02/14/25 09:59 DC 02/13/25 10:53 20 MG Famotidine (Pepcid 20mg Tab) 20 mg DAILY PO 02/17/25 09:00 03/18/25 08:59 02/25/25 09:32 20 MG Furosemide (LASix 20MG TAB) 20 mg DAILY PO 02/11/25 09:00 02/14/25 09:59 DC 02/13/25 10:52 20 MG Furosemide (LASix 20MG TAB) 20 mg Q12H PO 02/16/25 09:00 02/16/25 10:21 DC 02/16/25 08:19 20 MG Furosemide (LASix 20MG VIAL) 20 mg ONCE IV 02/10/25 17:00 02/10/25 21:00 DC 02/10/25 17:00 20 MG Furosemide (LASix 20MG VIAL) 20 mg ONCE IV 02/11/25 09:00 02/11/25 07:43 DC Furosemide (LASix 20MG VIAL) 20 mg Q12H IV 02/15/25 09:00 02/16/25 08:59 DC 02/15/25 20:16 20 MG Furosemide (LASix 20MG VIAL) 20 mg Q12H IV 02/20/25 09:00 03/22/25 08:59 02/25/25 09:31 20 MG Furosemide 100 mg/ Sodium Chloride 100 ml @ 0 mls/hr PROTOCOL IV 02/16/25 10:30 02/20/25 09:01 DC 02/19/25 11:35 2.5 MLS/HR Glucagon (Glucagon 1mg Kit) 1 mg AD PRN IM HYPOGLYCEMIA PROTOCOL 02/10/25 05:00 02/14/25 10:17 DC Glucagon (Glucagon 1mg Kit) 1 mg AD PRN IM HYPOGLYCEMIA PROTOCOL 02/14/25 10:00 03/16/25 09:59 Heparin Sodium (Porcine) (HEParin 5,000 UNIT VIAL) *calculation based on ACTUAL B... AD PRN IV HEPARIN PROTOCOL 02/12/25 21:00 02/14/25 09:59 DC 02/12/25 20:16 4,000 UNIT Heparin Sodium/ Dextrose 250 ml @ 0 mls/hr PROTOCOL IV 02/10/25 03:00 02/10/25 17:22 DC 02/10/25 03:00 16.2 MLS/HR Heparin Sodium/ Dextrose 250 ml @ 0 mls/hr Q6H IV 02/11/25 06:30 02/14/25 09:59 DC 02/13/25 13:01 9 MLS/HR Home Med (Home Medication) (Brimonidine-Timolol 0.2%/0.5% EYE DROPS) DAILY OP 02/18/25 09:00 03/20/25 08:59 02/25/25 09:48 1 EACH Insulin Glargine (LANtus 100 UNITS/ML 10 ML VIAL) 10 units DAILY SQ 02/21/25 09:00 02/22/25 19:17 DC 02/22/25 11:54 10 UNITS Insulin Glargine (LANtus 100 UNITS/ML 10 ML VIAL) 12 units DAILY SQ 02/23/25 09:00 03/25/25 08:59 02/25/25 09:35 12 UNITS Insulin Glargine (LANtus 100 UNITS/ML 10 ML VIAL) 12 units DAILY08 SQ 02/13/25 08:00 02/14/25 09:59 DC 02/13/25 10:51 12 UNITS Insulin Glargine (LANtus 100 UNITS/ML 10 ML VIAL) 15 units DAILY08 SQ 02/11/25 08:00 02/13/25 05:24 DC 02/12/25 08:54 15 UNITS Insulin Human Regular (humuLIN R 100 UNIT/ML 3ML) 3 unit TIDAC SQ 02/12/25 07:30 02/14/25 09:59 DC 02/12/25 16:31 3 UNIT Insulin Human Regular (humuLIN R 100 UNIT/ML 3ML) INSULIN SLIDING SCAL... ACHS SQ 02/16/25 11:30 03/18/25 11:29 02/22/25 11:55 3 UNIT Insulin Human Regular (humuLIN R 100 UNIT/ML 3ML) INSULIN SLIDING SCAL... Q4H SQ 02/10/25 05:00 02/10/25 11:10 DC 02/10/25 09:15 6 UNIT Insulin Human Regular (humuLIN R 100 UNIT/ML 3ML) INSULIN SLIDING SCAL... Q6H6 SQ 02/10/25 12:00 02/14/25 09:59 DC 02/11/25 17:29 2 UNIT Insulin Human Regular 100 unit/ Sodium Chloride 100 ml @ 0 mls/hr AD IV 02/14/25 10:00 02/16/25 09:59 DC 02/15/25 06:30 3 MLS/HR Lactulose (Constulose 20gm/ 30ml Udcup) 20 gm BID PRN PO CONSTIPATION 02/14/25 10:00 03/16/25 09:59 Latanoprost (Xalatan) 1 DROP FOR EACH EYE HS OP 02/17/25 21:00 03/19/25 20:59 02/24/25 21:08 1 DROP Magnesium Hydroxide (Milk Of Magnesium 30ml) 30 ml DAILY PRN PO CONSTIPATION 02/14/25 10:00 03/16/25 09:59 Magnesium Sulfate 50 ml @ 12.5 mls/hr AD PRN IV MAG LEVEL LESS THAN 2.0 02/14/25 10:00 03/16/25 09:59 02/24/25 08:17 12.5 MLS/HR Magnesium Sulfate 50 ml @ 0 mls/hr PROTOCOL PRN IV OTHER [SEE ORDER COMMENTS] 02/10/25 05:00 02/14/25 10:17 DC 02/12/25 07:13 25 MLS/HR Metoprolol Tartrate (loprESSOR) 12.5 mg BID PO 02/12/25 09:00 02/14/25 09:59 DC 02/14/25 06:44 12.5 MG Metoprolol Tartrate (loprESSOR) 12.5 mg BID PO 02/16/25 09:00 02/20/25 09:01 DC Midodrine (PROAMatine 5 MG TABLET) 10 mg TID PO 02/23/25 14:00 03/25/25 13:59 02/25/25 14:15 10 MG Morphine Sulfate (morPHINE 2MG SYG) 0.5 mg Q2H PRN IV MODERATE PAIN (4-6) IF NPO 02/14/25 10:00 02/15/25 09:59 DC Morphine Sulfate (morPHINE 2MG SYG) 1 mg Q2H PRN IV SEVERE PAIN (7-10) IF NPO 02/14/25 10:30 02/19/25 13:29 DC 02/14/25 14:23 1 MG Nitroglycerin (Nitrostat) 0.4 mg PROTOCOL PRN SL CHEST PAIN 02/10/25 05:00 02/14/25 09:59 DC Nitroglycerin/ Dextrose 0 ml @ 0 mls/hr AD IV 02/14/25 10:00 02/17/25 09:59 DC Norepinephrine Bitartrate 250 ml @ 0 mls/hr AD PRN IV TITRATE 02/14/25 06:30 03/16/25 06:29 02/17/25 01:06 1.9 MLS/HR Norepinephrine Bitartrate 250 ml @ 0 mls/hr AD PRN IV TITRATE 02/14/25 07:00 02/14/25 06:51 DC Norepinephrine Bitartrate 8 mg/ Dextrose 250 ml @ 0 mls/hr AD PRN IV POST-OP CARDIOVASCULAR ORDERS 02/14/25 10:00 02/14/25 10:14 DC Ondansetron HCl (zoFRAN 4MG INJ) 4 mg Q6H PRN IV NAUSEA/VOMITING 02/10/25 05:00 02/14/25 10:17 DC Ondansetron HCl (zoFRAN 4MG INJ) 4 mg Q6H PRN IV NAUSEA/VOMITING 02/14/25 10:00 03/16/25 09:59 Pharmacy Profile Note (Pharmacy Communication) 1 each ONCE MISC 02/14/25 18:00 02/14/25 18:27 DC Pharmacy Profile Note (Pharmacy Communication) 1 each ONCE MISC 02/20/25 11:30 02/20/25 11:19 DC Piperacillin Sod/ Tazobactam Sod 50 ml @ 12.5 mls/hr Q8H IVPB 02/20/25 11:30 02/24/25 18:10 DC 02/24/25 11:45 12.5 MLS/HR Piperacillin Sod/ Tazobactam Sod 50 ml @ 12.5 mls/hr Q8H6 IVPB 02/24/25 22:00 03/06/25 21:59 02/25/25 14:12 12.5 MLS/HR Potassium Phosphate 250 ml @ 42 mls/hr AD PRN IV LOW PHOS LEVEL 02/14/25 10:00 03/16/25 09:59 Potassium Chloride 100 ml @ 100 mls/hr AD PRN IV POTASSIUM PROTOCOL 02/10/25 05:00 02/15/25 06:27 DC 02/15/25 05:43 100 MLS/HR Potassium Chloride 100 ml @ 100 mls/hr AD PRN IV HYPOKALEMIA 02/14/25 10:00 03/16/25 09:59 02/21/25 16:43 100 MLS/HR Potassium Chloride (K-Dur/Klor-Con 20meq) 20 meq AD PRN PO POTASSIUM PROTOCOL 02/10/25 05:00 03/12/25 04:59 02/18/25 20:18 20 MEQ Potassium Chloride (K-Dur/Klor-Con 20meq) 20 meq BID PO 02/19/25 10:30 03/21/25 10:29 02/25/25 09:32 20 MEQ Potassium Chloride (KCl 10% Elixir 20meq/15ml) 20 meq AD PRN PO POTASSIUM PROTOCOL 02/10/25 05:00 03/12/25 04:59 02/25/25 09:30 20 MEQ Prednisone (deltaSONE/ oraSONE 20MG TAB) 20 mg DAILY PO 02/23/25 12:30 02/26/25 13:00 02/25/25 09:32 20 MG Propofol 100 ml @ 0 mls/hr AD PRN IV SEDATION 02/14/25 10:00 02/18/25 09:59 DC Sacubitril/ Valsartan (Entresto 24 Mg-26 Mg Tablet) 0.5 each BID PO 02/10/25 21:00 02/14/25 09:59 DC 02/13/25 21:11 0.5 EACH Sodium Bicarbonate 25 meq/Dextrose 1,025 ml @ 0 mls/hr Q0M IV 02/14/25 18:00 03/16/25 17:59 02/18/25 13:03 9.9 MLS/HR Sodium Bicarbonate (Sodium Bicarb 50meq 50ml Vial) 50 meq AD PRN IV OTHER[SEE DOSING INSTRUCTIONS] 02/14/25 10:00 02/17/25 09:59 DC 02/16/25 15:25 50 MEQ Sodium Chloride 500 ml @ 0 mls/hr AD IV 02/14/25 10:00 03/16/25 09:59 Sodium Chloride 1,000 ml @ 10 mls/hr ONCE IV 02/14/25 10:00 02/15/25 09:59 DC Sodium Chloride 1,000 ml @ 100 mls/hr Q10H IV 02/10/25 05:00 02/10/25 17:22 DC 02/10/25 14:20 100 MLS/HR Sodium Chloride (NS Flush 10ml) 10 ml Q8H PRN IVP IV LINE FLUSH 02/14/25 10:00 03/16/25 09:59 Spironolactone (Aldactone 25mg) 25 mg DAILY PO 02/10/25 14:30 02/14/25 09:59 DC 02/13/25 10:52 25 MG Spironolactone (Aldactone 25mg) 25 mg DAILY PO 02/20/25 09:00 03/22/25 08:59 02/25/25 09:34 25 MG Tramadol HCl (UltRAM) 25 mg Q6H PRN PO MODERATE PAIN (4-6) 02/14/25 10:00 02/19/25 09:59 DC Tramadol HCl (UltRAM) 50 mg Q6H PRN PO SEVERE PAIN (7-10) 02/14/25 10:00 02/19/25 09:59 DC Vancomycin HCl 250 ml @ 125 mls/hr Q12H IV 02/18/25 11:30 02/21/25 05:33 DC 02/19/25 11:20 125 MLS/HR Vancomycin HCl 250 ml @ 125 mls/hr Q24H IV 02/21/25 06:00 02/24/25 05:57 DC 02/23/25 06:28 125 MLS/HR Vancomycin HCl 250 ml @ 125 mls/hr Q24H IV 02/24/25 06:30 02/24/25 12:15 DC 02/24/25 06:26 125 MLS/HR Vancomycin HCl (Vancomycin Protocol) 1 each AD IV 02/18/25 11:00 02/24/25 12:15 DC Vasopressin 40 units/Sodium Chloride 40 ml @ 0 mls/hr PROTOCOL IV 02/14/25 13:00 03/16/25 12:59 02/14/25 22:11 1.8 MLS/HR DIAGNOSTICS / RADIOLOGY: [address] [address] IMAGING REPORT Signed PATIENT: EMMY GRACE MR#: [id number] : 1950 SEX: M AGE: 74 LOCATION: 2DH ORDER 2300 STATUS: ADM IN REPORT#: [id number] SERVICE 0600 REASON: CABG ORDERING PHYSICIAN: MARGARITA RINALDI MD PROCEDURE: CXR1VW - CHEST 1VW EXAM: CR Chest, 1 View. CLINICAL HISTORY: CABG COMPARISON: 02/24/2025 FINDINGS: A left-sided PICC line with its tip in the SVC. LUNGS: Persistent small left pleural effusion with left mid and lower zone airspace opacities. Grossly unchanged from the prior study dated 02/24/2025. PLEURAL SPACES: No pleural effusion or pneumothorax. MEDIASTINUM: Cardiac size is stable. Post-CABG changes. BONES: No aggressive appearing osseous lesion seen. IMPRESSION: 1. Persistent small left pleural effusion with left mid and lower zone airspace opacities, significantly unchanged from prior study. 2. Left-sided PICC line with tip in the SVC. /[place] DICTATED BY: LAN BURR Jr., MD DATE: 02/25/25 1037 ELECTRONICALLY SIGNED BY: LAN BRUR Jr., MD DATE: 02/25/25 1037 ASSESSMENT: Chest pain rule out ACS: NSTEMI POA Suspected pneumonia findings on Chest X-ray Possible metabolic encephalopathy Hyperglycemia secondary to uncontrolled diabetes POA Hyperlipidemia POA Medication noncompliance, POA Obesity POA MD/Coronary artery disease with cardiac stent POA PLAN: NSTEMI POA: * EKG was done which revealed sinus rhythm heart rate 85 with atrial premature complex anterolateral infarct age indeterminate. Second EKG result revealed sinus rhythm heart rate 73 with left anterior fascicular block. Probable anterolateral infarct age indeterminate. Abnormal T consider ischemia lateral leads. * PERC score was one, Wells score was zero. Very low suspicion for Pulmonary Embolism. * Chest x-ray done on 02/17/25 show, small stable left pleural effusion with adjacent lung atelectasis. follow up x-ray from 02/22/25 show Cardiomegaly with median sternotomy with cardiac revascularization procedure, there is suggestion of a moderate left-sided pleural effusion. * 2-D ECHO on 02/19/25 show LVEF of 25-30% with segmental akinesis (apical, apical lateral, anteroapical), LDL 89, BNP 488 * Troponin trends 21>174>[id number] * Left heart catheterization revealed severe three-vessel CAD with occluded mid LAD, 90% proximal left circumflex, 95% distal RCA, and 90% ostial PDA. * As per CT surgeon recommendations Entresto 0.5 each, was held. 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 * On aspirin 81 mg p.o. * Patient started on lasix 20mg IV, Aldactone 25mg. His total output in the past 24 hours has been 2300 versus 690. * Impella scheduled for removal on (02/21/25). * Epinpehrine drip was discontinued and patient was started on Coreg 31.125, * Jardiance 10mg was held due to elevated bicarb. Suspected pneumonia findings on Chest X-ray * Chest x-ray done on 02/16/25 show diffuse airspace disease of the left lung, predominantly involving the left lower zone, could be due to an infection or atelectasis. Questionable left pleural effusion. * Chest x-ray done on 02/17/25 show, small stable left pleural effusion with adjacent lung atelectasis. follow up x-ray from 02/19/25 show no interval change. * Patient started on Zosyn from 02/20/25 * WBC count on (02/25/25) - 17.2 * Patient started on Prednisone 20mg PO * Will monitor with daily labs. Possible metabolic encephalopathy * Chest x-ray done on 02/17/25 show, small stable left pleural effusion with adjacent lung atelectasis. * Patient was started on Vancomycin and cefepime due to elevated WBC levels and findings suggestive of pneumonia on chest x-ray * Cefepime was discontinued on 02/20/25 because the patient was confused, agitated and combative suspecting the cause of his confusion and was started on Zosyn. * Will monitor with daily labs Hyperglycemia secondary to uncontrolled diabetes POA: * HbA1c 13.9, blood glucose 181 * Following the Endocrinology recommendations. He is on Lantus 15 units, low- dose sliding scale insulin * Jardiance 10mg was held due to elevated bicarb. * We will monitor blood glucose. Hypokalemia Hypomagnesemia * Potassium 3.9, magnesium 2.3 (02/25/25) * We will replete the electrolytes and monitor. * Keep potassium above 4 and magnesium above 2. * We will start Slow-Mag oral t.i.d. once and will keep monitoring magnesium levels. Supportive measures * GI prophylaxis with Famotidine * DVT prophylaxis with SCD's ATTESTATION BY PHYSICIAN I have seen and examined the patient. I reviewed the documentation, medical decision making, and treatment plan as noted by the resident provider above. I agree with the findings and plan of care. Joe Jackman MD, SHAJI MD Feb 25, 2025 16:25
--- NOTE | 2025-02-25 17:06 | PN ---
INFECTIOUS DISEASE PROGRESS NOTE Date of Service: Feb 25, 2025 SUBJECTIVE: This 74-year-old male patient who was seen and examined at bedside in room 223. Patient is s/p surgical removal of Impella on 2024. Remains afebrile and the WBC is still elevated at 17.2. Chest x-ray still showing small left pleural effusion. Patient continues on oxygen via nasal cannula at 2 L/min and on diuretics. We will continue on Zosyn and vancomycin. Family present at bedside and reported that patient did not do very well with physical therapy yesterday. PHYSICAL EXAM EYES: Anicteric. Pupils equal and reactive. HENT: No oral thrush seen, moist Oral mucosa. NECK: Supple, no JVD or thyromegaly. LUNGS: Diminished breath sounds. Oxygen support via nasal cannula. CHEST: Sternal incision. CARDIOVASCULAR: S1, S2 regular. No murmur heard. ABDOMEN: Soft, non tender, bowel sounds present. CENTRAL NERVOUS SYSTEM: Awake, alert, oriented. SKIN: No rashes, no swelling. Vein harvesting surgical incisions to bilateral lower extremities.. LYMPHATICS: No peripheral lymphadenopathy. MUSCULOSKELETAL: No joint swelling, erythema or tenderness. EXTREMITIES: No cyanosis or clubbing. 1+ edema to bilateral feet. BACK: No deformity, no pressure ulcer. GENITOURINARY: No dysuria or hematuria. De Jesus catheter. Vital Sign (Last 12 Hours) 02/25/25 02/25/25 02/25/25 02/25/25 07:11 08:00 08:00 09:31 Temp 97.2 Pulse 80 68 Resp 18 18 B/P (MAP) 105/57 102/58 Pulse Ox 98 99 O2 Delivery N/Cannula Low lpm Room Air* Nasal Cannula O2 Flow Rate 2.0 0 2.0 FiO2 28 21 02/25/25 12:00 Temp 98.1 Pulse 72 Resp 17 B/P (MAP) 109/58 Pulse Ox 100 O2 Delivery Nasal Cannula O2 Flow Rate 2.0 Intake & Output (last 24hrs) 02/24/25 02/24/25 02/25/25 15:00 23:00 07:00 Intake Total 400.0 ml 290.0 ml Output Total 1400 ml 900 ml Balance -1000.0 ml -610.0 ml LABS: Laboratory: Test 02/25/25 15:55 02/25/25 04:25 02/24/25 12:29 02/24/25 04:59 Range/Units Whole Blood Glucose 189 H 70-110 MG/DL White Blood Count 17.2 H 4.8-10.8 K/uL Red Blood Count 2.96 L 4.50-6.20 MIL/uL Hemoglobin 8.8 L 14.0-18.0 g/dL Hematocrit 26.6 L 42-54 % Mean Corpuscular Volume 89.9 79-99 fL Mean Corpuscular Hemoglobin 29.7 27.0-33.0 pg Mean Corpuscular Hemoglobin Concent 33.1 32.0-36.0 g/dL Red Cell Distribution Width 15.8 H 11.0-15.5 % Platelet Count 425 H 130-400 K/uL Mean Platelet Volume 10.4 7.5-10.5 fL Immature Granulocyte % (Auto) 2.0 H 0-1 % Neutrophils (%) (Auto) 77.3 H 40.0-77.0 % Lymphocytes (%) (Auto) 13.5 L 21.0-51.0 % Monocytes (%) (Auto) 6.6 3.0-13.0 % Eosinophils (%) (Auto) 0.3 0.0-8.0 % Basophils (%) (Auto) 0.3 0.0-5.0 % Neutrophils # (Auto) 13.2 H 1.8-7.7 K/uL Lymphocytes # (Auto) 2.3 1.0-4.8 K/uL Monocytes # (Auto) 1.1 H 0.1-1.0 K/uL Eosinophils # (Auto) 0.05 0.00-0.70 K/uL Basophils # (Auto) 0.05 0.00-0.20 K/uL Absolute Immature Granulocyte (auto 0.35 0-1 K/uL Nucleated Red Blood Cells 0.0 0.0-0.19 % Sodium Level 133 L 136-145 mmol/L Potassium Level 4.2 3.5-5.1 mmol/L Chloride Level 96 L 101-111 mmol/L Carbon Dioxide Level 20 L 21-32 mmol/L Blood Urea Nitrogen 23 H 7-18 mg/dL Creatinine 1.1 0.5-1.3 mg/dL Glomerular Filtration Rate Calc 70 >90 mL/min Random Glucose 119 H 70-105 mg/dL Lactic Acid Level 1.4 0.8-2.5 mmol/L Total Calcium 8.3 L 8.5-10.1 mg/dL Phosphorus Level 3.5 2.5-4.9 mg/dL Magnesium Level 2.30 1.80-2.40 mg/dL Total Bilirubin 1.5 H 0.2-1.0 mg/dL Aspartate Amino Transf (AST/SGOT) 21 10-37 U/L Alanine Aminotransferase (ALT/SGPT) 16 # 12-78 U/L Alkaline Phosphatase 61 50-136 U/L Total Protein 6.1 6.0-8.3 g/dL Albumin 3.1 L 3.5-5.0 g/dL Blood Gas Specimen Type Arterial Arterial Blood pH 7.484 H 7.350-7.450 Arterial Blood Partial Pressure CO2 29 L 35-48 mmHg Arterial Blood Partial Pressure O2 67.4 L 83.0-108.0 mmHg Arterial Blood HCO3 21.5 21.0-28.0 mmol/L Arterial Blood Oxygen Saturation 94.9 94.0-98.0 % Arterial Blood Base Excess -0.7 -2.0-3.0 mmol/L Blood Gas Temperature 37.0 35.5-37.0 CELSIUS Blood Gas Vent Mode ROOM AIR ROOM AIR FiO2 21.0 % Blood Gas Specimen Comment HIWOT COOK Vancomycin Level Trough 5.9 #L 10.0-20.0 UG/ML ASSESSMENT: Hospital-acquired pneumonia. Leukocytosis. Multivessel coronary artery disease, s/p CABG on 02/14/2025, s.p surgical removal of Impella. Postop anemia. Left Pleural effusion. Diabetes mellitus. Congestive heart failure. PLAN: Continue on Zosyn. Continue Vancomycin per pharmacy protocol. Continue GI prophylaxis. Continue diuretics Monitor electrolytes. Continue oxygen support. Continue physical therapy. This case was reviewed and discussed with my supervising physician Dr. Harrell and the above assessment and plan was formulated and agreed upon. ATTESTATION BY PHYSICIAN I have seen and examined the patient. I reviewed the documentation, medical decision making, and treatment plan as noted by the mid-level provider above. I agree with the findings and plan of care. BERENICE HARRELL MD, MIRTA L [facility] Feb 25, 2025 17:06
--- NOTE | 2025-02-25 20:54 | PN ---
Endocrinology progress note DOS: 02/25/25 subjective: glucose are improving/stable and s/p CABG procedure Home diabetic regimen: metformin 500 mg bid, Hba1c 13.9% PAST MEDICAL HISTORY: [ Diabetes, hyperlipidemia, ND/coronary artery disease ] PAST SURGICAL HISTORY: [ Cardiac stent, cholecystectomy and left inguinal hernia repair ] PAST SOCIAL HISTORY: [ Patient lives with . Patient admits he drinks two beer yesterday. Patient reports he occasional drinks alcohol denies cigarette and recreational drug use. ] FAMILY HISTORY: [ Diabetes, cardiovascular disease, asthma and cancer ] Coded Allergies: No Known Drug Allergies (Unverified Allergy, Unknown, 08/31/15) ASSESSMENT: Hyperglycemia secondary to uncontrolled diabetes POA Home diabetic regimen: metformin 500 mg bid, Hba1c 13.9% glucose is improving. NSTEMI POA s/p CABG triple vessel disease s/p CABG Hyperlipidemia POA Obesity POA ND/Coronary artery disease with cardiac stent POA PLAN: OFF insulin drip continue lantus 12 units daily. off regular insulin. Continue low dose sliding scale insulin. Monitor glucose q x 6 hourly. Keep glucose less than 180 mg/dl. Patient will need insulin at discharge Vitals/Labs Vital Signs Date Time Temp Pulse Resp B/P (MAP) Pulse Ox O2 Delivery O2 Flow Rate FiO2 02/25/25 19:09 98.2 74 18 104/77 94 Room Air 02/25/25 12:00 2.0 02/25/25 08:00 21 Laboratory Tests 02/25/25 04:25 Medications Current Medications Sodium Chloride 1,000 ml @ 0 mls/hr ONCE ONCE IV; Start 02/10/25 at 01:00; Stop 02/10/25 at 00:46; Status DC Sodium Chloride 500 ml @ 0 mls/hr ONCE ONCE IV Last administered on 02/10/25at 00:53; Start 02/10/25 at 01:00; Stop 02/10/25 at 01:01; Status DC Insulin Human Regular 5 unit ONCE ONCE IV Last administered on 02/10/25at 01:30; Start 02/10/25 at 01:30; Stop 02/10/25 at 01:31; Status DC Aspirin 325 mg ONCE ONCE PO Last administered on 02/10/25at 02:32; Start 02/10/25 at 02:30; Stop 02/10/25 at 02:31; Status DC Heparin Sodium/ Dextrose 250 ml @ 0 mls/hr PROTOCOL IV Last administered on 02/10/25at 03:00; Start 02/10/25 at 03:00; Stop 02/10/25 at 17:22; Status DC Heparin Sodium (Porcine) 7,000 unit ONCE ONCE SQ Last administered on 02/10/25at 02:55; Start 02/10/25 at 03:00; Stop 02/10/25 at 03:01; Status DC Acetaminophen 650 mg Q6H PRN PO Last administered on 02/12/25at 17:13; Start 02/10/25 at 05:00; Stop 02/14/25 at 10:17; Status DC Acetaminophen 650 mg Q4H PRN PO; Start 02/10/25 at 05:00; Stop 02/14/25 at 10:05; Status DC Ondansetron HCl 4 mg Q6H PRN IV; Start 02/10/25 at 05:00; Stop 02/14/25 at 10:17; Status DC Nitroglycerin 0.4 mg PROTOCOL PRN SL; Start 02/10/25 at 05:00; Stop 02/14/25 at 09:59; Status DC Famotidine 20 mg DAILY PO Last administered on 02/13/25at 10:53; Start 02/10/25 at 09:00; Stop 02/14/25 at 09:59; Status DC Sodium Chloride 1,000 ml @ 100 mls/hr Q10H IV Last administered on 02/10/25at 14:20; Start 02/10/25 at 05:00; Stop 02/10/25 at 17:22; Status DC Insulin Human Regular INSULIN SLIDING SCAL... Q4H SQ Last administered on 02/10/25at 09:15; Start 02/10/25 at 05:00; Stop 02/10/25 at 11:10; Status DC Dextrose 50 ml AD PRN IV; Start 02/10/25 at 05:00; Stop 02/14/25 at 10:17; Status DC Glucagon 1 mg AD PRN IM; Start 02/10/25 at 05:00; Stop 02/14/25 at 10:17; Status DC Magnesium Sulfate 50 ml @ 0 mls/hr PROTOCOL PRN IV Last administered on 02/12/25at 07:13; Start 02/10/25 at 05:00; Stop 02/14/25 at 10:17; Status DC Potassium Chloride 100 ml @ 100 mls/hr AD PRN IV Last administered on 02/15/25at 05:43; Start 02/10/25 at 05:00; Stop 02/15/25 at 06:27; Status DC Potassium Chloride 20 meq AD PRN PO Last administered on 02/25/25at 09:30; Start 02/10/25 at 05:00; Stop 03/12/25 at 04:59 Potassium Chloride 20 meq AD PRN PO Last administered on 02/18/25at 20:18; Start 02/10/25 at 05:00; Stop 03/12/25 at 04:59 Aspirin 81 mg DAILY PO Last administered on 02/25/25at 09:30; Start 02/10/25 at 09:00; Stop 03/12/25 at 08:59 Insulin Human Regular INSULIN SLIDING SCAL... Q6H6 SQ Last administered on 02/11/25at 17:29; Start 02/10/25 at 12:00; Stop 02/14/25 at 09:59; Status DC Clopidogrel Bisulfate 600 mg ONCE PO Last administered on 02/10/25at 14:19; Start 02/10/25 at 14:00; Stop 02/10/25 at 17:22; Status DC Aspirin 325 mg ONCE PO Last administered on 02/10/25at 14:32; Start 02/10/25 at 14:30; Stop 02/10/25 at 17:22; Status DC Sacubitril/ Valsartan 0.5 each BID PO Last administered on 02/13/25at 21:11; Start 02/10/25 at 21:00; Stop 02/14/25 at 09:59; Status DC Empaglifozin 10 mg DAILY PO Last administered on 02/13/25at 10:52; Start 02/10/25 at 14:30; Stop 02/14/25 at 09:59; Status DC Spironolactone 25 mg DAILY PO Last administered on 02/13/25at 10:52; Start 02/10/25 at 14:30; Stop 02/14/25 at 09:59; Status DC Furosemide 20 mg ONCE IV Last administered on 02/10/25at 17:00; Start 02/10/25 at 17:00; Stop 02/10/25 at 21:00; Status DC Furosemide 20 mg ONCE IV; Start 02/11/25 at 09:00; Stop 02/11/25 at 07:43; Status DC Lidocaine HCl 20 ml STK-MED ONCE .ROUTE; Start 02/10/25 at 15:22; Stop 02/10/25 at 15:23; Status DC Iohexol 35,000 mg STK-MED ONCE IV; Start 02/10/25 at 15:22; Stop 02/10/25 at 15:23; Status DC Iohexol 50 ml STK-MED ONCE IV; Start 02/10/25 at 15:22; Stop 02/10/25 at 15:23; Status DC Heparin Sodium (Porcine) 10,000 unit STK-MED ONCE .ROUTE; Start 02/10/25 at 15:23; Stop 02/10/25 at 15:23; Status DC Heparin Sodium/ Sodium Chloride 1,000 ml @ As Directed STK-MED ONCE IV; Start 02/10/25 at 15:23; Stop 02/10/25 at 15:23; Status DC Nitroglycerin 50 mg STK-MED ONCE .ROUTE; Start 02/10/25 at 15:23; Stop 02/10/25 at 15:23; Status DC Heparin Sodium/ Sodium Chloride 500 ml @ As Directed STK-MED ONCE IV; Start 02/10/25 at 15:35; Stop 02/10/25 at 15:35; Status DC Fentanyl Citrate 100 mcg STK-MED ONCE .ROUTE; Start 02/10/25 at 15:39; Stop 02/10/25 at 15:40; Status DC Midazolam HCl 2 mg STK-MED ONCE .ROUTE; Start 02/10/25 at 15:40; Stop 02/10/25 at 15:40; Status DC Bivalirudin 250 mg STK-MED ONCE IV; Start 02/10/25 at 16:15; Stop 02/10/25 at 16:15; Status DC Heparin Sodium (Porcine) 7,000 unit ONCE ONCE IV Last administered on 02/11/25at 05:46; Start 02/11/25 at 05:30; Stop 02/11/25 at 05:31; Status DC Heparin Sodium/ Dextrose 250 ml @ 0 mls/hr Q6H IV Last administered on 02/13/25at 13:01; Start 02/11/25 at 06:30; Stop 02/14/25 at 09:59; Status DC Clopidogrel Bisulfate 75 mg DAILY PO; Start 02/11/25 at 09:00; Stop 02/11/25 at 07:28; Status DC Insulin Glargine 15 units DAILY08 SQ Last administered on 02/12/25at 08:54; Start 02/11/25 at 08:00; Stop 02/13/25 at 05:24; Status DC Furosemide 20 mg DAILY PO Last administered on 02/13/25at 10:52; Start 02/11/25 at 09:00; Stop 02/14/25 at 09:59; Status DC Insulin Human Regular 3 unit TIDAC SQ Last administered on 02/12/25at 16:31; Start 02/12/25 at 07:30; Stop 02/14/25 at 09:59; Status DC Metoprolol Tartrate 12.5 mg BID PO Last administered on 02/14/25at 06:44; Start 02/12/25 at 09:00; Stop 02/14/25 at 09:59; Status DC Potassium Chloride 40 meq BID ONCE PO; Start 02/12/25 at 21:00; Stop 02/12/25 at 21:01; Status DC Magnesium Chloride 64 mg Q8H6 ONCE PO; Start 02/12/25 at 14:00; Stop 02/12/25 at 14:01; Status DC Heparin Sodium (Porcine) *calculation based on ACTUAL B... AD PRN IV Last administered on 02/12/25at 20:16; Start 02/12/25 at 21:00; Stop 02/14/25 at 09:59; Status DC Insulin Glargine 12 units DAILY08 SQ Last administered on 02/13/25at 10:51; Start 02/13/25 at 08:00; Stop 02/14/25 at 09:59; Status DC Cefazolin Sodium 2 gm ONCALL IVP Last administered on 02/14/25at 08:50; Start 02/13/25 at 20:00; Stop 02/14/25 at 18:51; Status DC Epinephrine HCl 10 mg/Sodium Chloride 250 ml @ 0 mls/hr AD PRN IV Last administered on 02/20/25at 17:32; Start 02/14/25 at 06:30; Stop 03/16/25 at 06:29 Norepinephrine Bitartrate 250 ml @ 0 mls/hr AD PRN IV Last administered on 02/17/25at 01:06; Start 02/14/25 at 06:30; Stop 03/16/25 at 06:29 Aminocaproic Acid 62858 mg/Sodium Chloride 480 ml @ 0 mls/hr AD PRN IV; Start 02/14/25 at 06:30; Stop 02/23/25 at 11:52; Status DC Epinephrine HCl 10 mg/Sodium Chloride 250 ml @ 0 mls/hr AD PRN IV; Start 02/14/25 at 07:00; Stop 02/14/25 at 06:51; Status DC Norepinephrine Bitartrate 250 ml @ 0 mls/hr AD PRN IV; Start 02/14/25 at 07:00; Stop 02/14/25 at 06:51; Status DC Aminocaproic Acid 90518 mg/Sodium Chloride 480 ml @ 0 mls/hr AD PRN IV; Start 02/14/25 at 07:00; Stop 02/14/25 at 06:51; Status DC Cefazolin Sodium 2 gm STK-MED ONCE .ROUTE; Start 02/14/25 at 06:53; Stop 02/14/25 at 06:53; Status DC Nitroglycerin/ Dextrose 1 ml @ As Directed STK-MED ONCE .ROUTE; Start 02/14/25 at 07:00; Stop 02/14/25 at 07:00; Status DC Cefazolin Sodium 1 gm STK-MED ONCE .ROUTE Last administered on 02/14/25at 10:09; Start 02/14/25 at 07:37; Stop 02/14/25 at 07:38; Status DC Heparin Sodium/ Sodium Chloride 500 ml @ As Directed STK-MED ONCE IV; Start 02/14/25 at 07:38; Stop 02/14/25 at 07:38; Status DC Papaverine HCl 60 mg STK-MED ONCE .ROUTE Last administered on 02/14/25at 10:10; Start 02/14/25 at 07:38; Stop 02/14/25 at 07:38; Status DC Midazolam HCl 2 mg STK-MED ONCE .ROUTE; Start 02/14/25 at 08:14; Stop 02/14/25 at 08:14; Status DC Ketamine HCl 500 mg STK-MED ONCE IJ; Start 02/14/25 at 08:16; Stop 02/14/25 at 08:16; Status DC Protamine Sulfate 250 mg STK-MED ONCE IV; Start 02/14/25 at 08:17; Stop 02/14/25 at 08:17; Status DC Lidocaine HCl 100 mg STK-MED ONCE .ROUTE; Start 02/14/25 at 08:17; Stop 02/14/25 at 08:17; Status DC Heparin Sodium (Porcine) 10,000 unit STK-MED ONCE .ROUTE; Start 02/14/25 at 08:17; Stop 02/14/25 at 08:17; Status DC Epinephrine HCl 1 mg STK-MED ONCE .ROUTE; Start 02/14/25 at 08:17; Stop 02/14/25 at 08:17; Status DC Sodium Bicarbonate 200 ml @ As Directed STK-MED ONCE .ROUTE; Start 02/14/25 at 08:17; Stop 02/14/25 at 08:17; Status DC Norepinephrine Bitartrate 4 mg STK-MED ONCE IV; Start 02/14/25 at 08:17; Stop 02/14/25 at 08:17; Status DC Propofol 200 mg STK-MED ONCE IV; Start 02/14/25 at 08:19; Stop 02/14/25 at 08:19; Status DC Fentanyl Citrate 1,000 mcg STK-MED ONCE IJ; Start 02/14/25 at 08:19; Stop 02/14/25 at 08:19; Status DC Midazolam HCl 2 mg STK-MED ONCE .ROUTE; Start 02/14/25 at 08:20; Stop 02/14/25 at 08:20; Status DC Rocuronium [place] 50 mg STK-MED ONCE .ROUTE; Start 02/14/25 at 08:20; Stop 02/14/25 at 08:20; Status DC Acetaminophen 1,000 mg Q6H6 IV Last administered on 02/15/25at 12:14; Start 02/14/25 at 14:00; Stop 02/15/25 at 13:59; Status DC Aspirin 81 mg ONCE ONCE NG Last administered on 02/14/25at 13:56; Start 02/14/25 at 14:00; Stop 02/14/25 at 14:01; Status DC Docusate Sodium 100 mg BID PO Last administered on 02/25/25at 09:31; Start 02/14/25 at 21:00; Stop 03/16/25 at 20:59 Lactulose 20 gm BID PRN PO; Start 02/14/25 at 10:00; Stop 03/16/25 at 09:59 Furosemide 20 mg Q12H PO Last administered on 02/16/25at 08:19; Start 02/16/25 at 09:00; Stop 02/16/25 at 10:21; Status DC Furosemide 20 mg Q12H IV Last administered on 02/15/25at 20:16; Start 02/15/25 at 09:00; Stop 02/16/25 at 08:59; Status DC Atorvastatin Calcium 40 mg HS PO Last administered on 02/24/25at 20:51; Start 02/14/25 at 21:00; Stop 03/16/25 at 20:59 Enoxaparin Sodium 30 mg DAILY SQ Last administered on 02/25/25at 09:30; Start 02/17/25 at 09:00; Stop 03/19/25 at 08:59 Metoprolol Tartrate 12.5 mg BID PO; Start 02/16/25 at 09:00; Stop 02/20/25 at 09:01; Status DC Magnesium Hydroxide 30 ml DAILY PRN PO; Start 02/14/25 at 10:00; Stop 03/16/25 at 09:59 Dexmedetomidine/ Sodium Chloride 400 mcg PROTOCOL IV; Start 02/14/25 at 10:00; Stop 02/15/25 at 09:59; Status DC Acetaminophen 650 mg Q6H PRN PO; Start 02/14/25 at 10:00; Stop 03/16/25 at 09:59 Heparin Sodium (Porcine) 10,000 unit STK-MED ONCE .ROUTE; Start 02/14/25 at 10:00; Stop 02/14/25 at 10:00; Status DC Sodium Chloride 1,000 ml @ 10 mls/hr ONCE IV; Start 02/14/25 at 10:00; Stop 02/15/25 at 09:59; Status DC Sodium Chloride 10 ml Q8H PRN IVP; Start 02/14/25 at 10:00; Stop 03/16/25 at 09:59 Morphine Sulfate 0.5 mg Q2H PRN IV; Start 02/14/25 at 10:00; Stop 02/15/25 at 09:59; Status DC Morphine Sulfate 1 mg Q2H PRN IV Last administered on 02/14/25at 14:23; Start 02/14/25 at 10:30; Stop 02/19/25 at 13:29; Status DC Acetaminophen 650 mg Q4H PRN RC; Start 02/14/25 at 10:00; Stop 02/23/25 at 11:52; Status DC Ondansetron HCl 4 mg Q6H PRN IV; Start 02/14/25 at 10:00; Stop 03/16/25 at 09:59 Sodium Chloride 500 ml @ 0 mls/hr AD IV; Start 02/14/25 at 10:00; Stop 03/16/25 at 09:59 Nitroglycerin/ Dextrose 0 ml @ 0 mls/hr AD IV; Start 02/14/25 at 10:00; Stop 02/17/25 at 09:59; Status DC Propofol 100 ml @ 0 mls/hr AD PRN IV; Start 02/14/25 at 10:00; Stop 02/18/25 at 09:59; Status DC Norepinephrine Bitartrate 8 mg/ Dextrose 250 ml @ 0 mls/hr AD PRN IV; Start 02/14/25 at 10:00; Stop 02/14/25 at 10:14; Status DC Epinephrine HCl 10 mg/Sodium Chloride 250 ml @ 0 mls/hr AD PRN IV; Start 02/14/25 at 10:00; Stop 02/14/25 at 10:14; Status DC Aminocaproic Acid 01126 mg/Sodium Chloride 310 ml @ 25 mls/hr AD IV; Start 02/14/25 at 10:00; Stop 02/14/25 at 10:19; Status DC Calcium Gluconate 1 gm/Sodium Chloride 60 ml @ 200 mls/hr AD PRN IV Last administered on 02/21/25at 08:36; Start 02/14/25 at 10:00; Stop 03/16/25 at 09:59 Magnesium Sulfate 50 ml @ 12.5 mls/hr AD PRN IV Last administered on 02/24/25at 08:17; Start 02/14/25 at 10:00; Stop 03/16/25 at 09:59 Potassium Chloride 100 ml @ 100 mls/hr AD PRN IV Last administered on 02/21/25at 16:43; Start 02/14/25 at 10:00; Stop 03/16/25 at 09:59 Potassium Phosphate 250 ml @ 42 mls/hr AD PRN IV; Start 02/14/25 at 10:00; Stop 03/16/25 at 09:59 Albumin Human 250 ml @ 0 mls/hr AD PRN IV Last administered on 02/14/25at 14:42; Start 02/14/25 at 10:00; Stop 02/14/25 at 14:42; Status DC Acetaminophen 650 mg Q4H PRN PO; Start 02/14/25 at 10:00; Stop 03/16/25 at 09:59 Insulin Human Regular 100 unit/ Sodium Chloride 100 ml @ 0 mls/hr AD IV Last administered on 02/15/25at 06:30; Start 02/14/25 at 10:00; Stop 02/16/25 at 09:59; Status DC Cefazolin Sodium 2 gm Q8H IVPB Last administered on 02/15/25at 06:25; Start 02/14/25 at 15:00; Stop 02/15/25 at 07:01; Status DC Tramadol HCl 25 mg Q6H PRN PO; Start 02/14/25 at 10:00; Stop 02/19/25 at 09:59; Status DC Tramadol HCl 50 mg Q6H PRN PO; Start 02/14/25 at 10:00; Stop 02/19/25 at 09:59; Status DC Famotidine 20 mg BID IV Last administered on 02/15/25at 20:15; Start 02/14/25 at 21:00; Stop 02/16/25 at 07:58; Status DC Sodium Bicarbonate 50 meq AD PRN IV Last administered on 02/16/25at 15:25; Start 02/14/25 at 10:00; Stop 02/17/25 at 09:59; Status DC Dextrose 50 ml AD PRN IV; Start 02/14/25 at 10:00; Stop 03/16/25 at 09:59 Glucagon 1 mg AD PRN IM; Start 02/14/25 at 10:00; Stop 03/16/25 at 09:59 Dobutamine HCl 250 mg STK-MED ONCE .ROUTE; Start 02/14/25 at 10:28; Stop 02/14/25 at 10:28; Status DC Sodium Bicarbonate 50 ml @ As Directed STK-MED ONCE .ROUTE; Start 02/14/25 at 10:52; Stop 02/14/25 at 10:52; Status DC Sodium Bicarbonate 200 ml @ As Directed STK-MED ONCE .ROUTE; Start 02/14/25 at 10:53; Stop 02/14/25 at 10:53; Status DC Vasopressin 20 units STK-MED ONCE .ROUTE; Start 02/14/25 at 11:51; Stop 02/14/25 at 11:51; Status DC Rocuronium [place] 50 mg STK-MED ONCE .ROUTE; Start 02/14/25 at 12:14; Stop 02/14/25 at 12:14; Status DC Sodium Bicarbonate 100 ml @ As Directed STK-MED ONCE .ROUTE; Start 02/14/25 at 12:16; Stop 02/14/25 at 12:16; Status DC Vasopressin 40 units/Sodium Chloride 40 ml @ 0 mls/hr PROTOCOL IV Last administered on 02/14/25at 22:11; Start 02/14/25 at 13:00; Stop 03/16/25 at 12:59 Albumin Human 250 ml @ 0 mls/hr AD IV Last administered on 02/18/25at 10:27; Start 02/14/25 at 15:30; Stop 02/18/25 at 10:40; Status DC Calcium Gluconate 2 gm/Sodium Chloride 100 ml @ 0 mls/hr ONCE ONCE IV Last administered on 02/14/25at 16:15; Start 02/14/25 at 16:30; Stop 02/14/25 at 16:31; Status DC Pharmacy Profile Note 1 each ONCE MISC; Start 02/14/25 at 18:00; Stop 02/14/25 at 18:27; Status DC Sodium Bicarbonate 25 meq/Dextrose 1,025 ml @ 0 mls/hr Q0M IV Last administered on 02/18/25at 13:03; Start 02/14/25 at 18:00; Stop 03/16/25 at 17:59 Famotidine 20 mg BID PO Last administered on 02/16/25at 20:03; Start 02/16/25 at 09:00; Stop 02/17/25 at 07:09; Status DC Insulin Human Regular INSULIN SLIDING SCAL... ACHS SQ Last administered on 02/25/25at 17:21; Start 02/16/25 at 11:30; Stop 03/18/25 at 11:29 Cefepime HCl 1 gm Q12H IVPB Last administered on 02/19/25at 22:54; Start 02/16/25 at 10:30; Stop 02/20/25 at 08:16; Status DC Furosemide 100 mg/ Sodium Chloride 100 ml @ 0 mls/hr PROTOCOL IV Last administered on 02/19/25at 11:35; Start 02/16/25 at 10:30; Stop 02/20/25 at 09:01; Status DC Vancomycin HCl 500 ml @ 250 mls/hr ONCE ONCE IV Last administered on 02/16/25at 11:39; Start 02/16/25 at 12:00; Stop 02/16/25 at 13:59; Status DC Sodium Chloride 4 ml STK-MED ONCE IH Last administered on 02/16/25at 10:53; Start 02/16/25 at 10:44; Stop 02/16/25 at 10:44; Status DC Sodium Chloride 4 ml STK-MED ONCE IH Last administered on 02/16/25at 14:33; Start 02/16/25 at 14:26; Stop 02/16/25 at 14:26; Status DC Sodium Chloride 4 ml STK-MED ONCE IH Last administered on 02/16/25at 19:16; Start 02/16/25 at 18:32; Stop 02/16/25 at 18:32; Status DC Famotidine 20 mg DAILY PO Last administered on 02/25/25at 09:32; Start 02/17/25 at 09:00; Stop 03/18/25 at 08:59 Latanoprost 1 DROP FOR EACH EYE HS OP Last administered on 02/24/25at 21:08; Start 02/17/25 at 21:00; Stop 03/19/25 at 20:59 Home Med (Brimonidine-Timolol 0.2%/0.5% EYE DROPS) DAILY OP Last administered on 02/25/25at 09:48; Start 02/18/25 at 09:00; Stop 03/20/25 at 08:59 Albumin Human 250 ml @ 0 mls/hr AD IV; Start 02/18/25 at 10:30; Stop 02/20/25 at 09:03; Status DC Vancomycin HCl 1 each AD IV; Start 02/18/25 at 11:00; Stop 02/24/25 at 12:15; Status DC Vancomycin HCl 250 ml @ 125 mls/hr Q12H IV Last administered on 02/19/25at 11:20; Start 02/18/25 at 11:30; Stop 02/21/25 at 05:33; Status DC Potassium Chloride 20 meq BID PO Last administered on 02/25/25at 09:32; Start 02/19/25 at 10:30; Stop 03/21/25 at 10:29 Dexmedetomidine/ Sodium Chloride 400 mcg STK-MED ONCE IV Last administered on 02/20/25at 07:08; Start 02/20/25 at 07:00; Stop 02/20/25 at 07:00; Status DC Dexmedetomidine/ Sodium Chloride 400 mcg PROTOCOL IV Last administered on 02/22/25at 05:51; Start 02/20/25 at 07:30; Stop 02/22/25 at 15:01; Status DC Carvedilol 3.125 mg BID PO; Start 02/20/25 at 21:00; Stop 02/24/25 at 06:13; Status DC Spironolactone 25 mg DAILY PO Last administered on 02/25/25at 09:34; Start 02/20/25 at 09:00; Stop 03/22/25 at 08:59 Empaglifozin 10 mg DAILY PO Last administered on 02/22/25at 09:38; Start 02/20/25 at 09:00; Stop 02/22/25 at 15:01; Status DC Albumin Human 50 ml @ 0 mls/hr Q12H9 IV Last administered on 02/24/25at 08:15; Start 02/20/25 at 09:00; Stop 02/24/25 at 08:42; Status DC Furosemide 20 mg Q12H IV Last administered on 02/25/25at 09:31; Start 02/20/25 at 09:00; Stop 03/22/25 at 08:59 Pharmacy Profile Note 1 each ONCE MISC; Start 02/20/25 at 11:30; Stop 02/20/25 at 11:19; Status DC Piperacillin Sod/ Tazobactam Sod 50 ml @ 12.5 mls/hr Q8H IVPB Last administered on 02/24/25at 11:45; Start 02/20/25 at 11:30; Stop 02/24/25 at 18:10; Status DC Vancomycin HCl 250 ml @ 125 mls/hr Q24H IV Last administered on 02/23/25at 06:28; Start 02/21/25 at 06:00; Stop 02/24/25 at 05:57; Status DC Insulin Glargine 10 units DAILY SQ Last administered on 02/22/25at 11:54; Start 02/21/25 at 09:00; Stop 02/22/25 at 19:17; Status DC Calcium Gluconate 1 gm STK-MED ONCE .ROUTE; Start 02/21/25 at 08:34; Stop 02/21/25 at 08:34; Status DC Etomidate 20 mg STK-MED ONCE .ROUTE; Start 02/21/25 at 12:27; Stop 02/21/25 at 12:28; Status DC Fentanyl Citrate 100 mcg STK-MED ONCE .ROUTE; Start 02/21/25 at 12:30; Stop 02/21/25 at 12:30; Status DC Rocuronium [place] 50 mg STK-MED ONCE .ROUTE; Start 02/21/25 at 12:30; Stop 02/21/25 at 12:30; Status DC Lidocaine HCl 20 ml STK-MED ONCE .ROUTE; Start 02/21/25 at 12:31; Stop 02/21/25 at 12:31; Status DC Cefazolin Sodium 1 gm STK-MED ONCE .ROUTE; Start 02/21/25 at 12:31; Stop 02/21/25 at 12:32; Status DC Bupivacaine HCl 2.5 mg STK-MED ONCE IJ; Start 02/21/25 at 12:32; Stop 02/21/25 at 12:32; Status DC Propofol 200 mg STK-MED ONCE IV; Start 02/21/25 at 12:35; Stop 02/21/25 at 12:35; Status DC Lidocaine HCl 100 mg STK-MED ONCE .ROUTE; Start 02/21/25 at 12:46; Stop 02/21/25 at 12:46; Status DC Cefazolin Sodium 1 gm STK-MED ONCE .ROUTE; Start 02/21/25 at 12:51; Stop 02/21/25 at 12:51; Status DC Rocuronium [place] 50 mg STK-MED ONCE .ROUTE; Start 02/21/25 at 13:03; Stop 02/21/25 at 13:03; Status DC Cefazolin Sodium 2 gm STK-MED ONCE IVPB Last administered on 02/21/25at 12:53; Start 02/21/25 at 12:53; Stop 02/21/25 at 14:14; Status DC Lidocaine HCl 20 ml STK-MED ONCE INJ Last administered on 02/21/25at 12:18; Start 02/21/25 at 12:18; Stop 02/21/25 at 14:14; Status DC Bupivacaine HCl 75 mg STK-MED ONCE IJ Last administered on 02/21/25at 12:18; Start 02/21/25 at 12:18; Stop 02/21/25 at 14:14; Status DC Insulin Glargine 12 units DAILY SQ Last administered on 02/25/25at 09:35; Start 02/23/25 at 09:00; Stop 03/25/25 at 08:59 Dexmedetomidine/ Sodium Chloride 400 mcg PROTOCOL IV Last administered on 02/23/25at 00:17; Start 02/23/25 at 00:00; Stop 03/25/25 at 00:00 Midodrine 10 mg TID PO Last administered on 02/25/25at 14:15; Start 02/23/25 at 14:00; Stop 03/25/25 at 13:59 Prednisone 20 mg DAILY PO Last administered on 02/25/25at 09:32; Start 02/23/25 at 12:30; Stop 02/26/25 at 13:00 Vancomycin HCl 250 ml @ 125 mls/hr Q24H IV Last administered on 02/24/25at 06:26; Start 02/24/25 at 06:30; Stop 02/24/25 at 12:15; Status DC Carvedilol 3.125 mg BID PO Last administered on 02/25/25at 09:31; Start 02/24/25 at 09:00; Stop 03/26/25 at 08:59 Empaglifozin 10 mg DAILY PO Last administered on 02/24/25at 08:47; Start 02/24/25 at 09:00; Stop 02/24/25 at 13:01; Status DC Piperacillin Sod/ Tazobactam Sod 50 ml @ 12.5 mls/hr Q8H6 IVPB Last administered on 02/25/25at 14:12; Start 02/24/25 at 22:00; Stop 03/06/25 at 21:59 EUGENE ZARATE MD Feb 25, 2025 20:54
--- NOTE | 2025-02-25 21:22 | PN ---
SUBJECTIVE: The patient is postop day #11 from an Impella supported coronary artery bypass grafting. His Impella has been removed and the patient has been transferred out of the ICU to Telemetry floor yesterday. He has been doing well and offers no complaints. OBJECTIVE: VITAL SIGNS: Temperature 97.2, blood pressure 105/57, pulse 68, respirations 18, oxygen saturation 99% on room air. HEENT: Exam reveals normocephalic, atraumatic. Extraocular movements intact. He has nasal cannula oxygen prongs under his nose. HEART: S1 and S2 and regular. CHEST: His sternal wound is healing well. His chest tubes have been removed. ABDOMEN: Nondistended. EXTREMITIES: He has JIAN stockings on his lower extremities. EVH site is healing well. LABORATORY DATA: His hemoglobin is 8.8. His chest x-ray looks like he has a left-sided effusion or some atelectasis. BUN 23, creatinine 1.1. ASSESSMENT AND PLAN: * Status post Impella supported coronary artery bypass grafting. Continue aspirin, Lasix, Coreg, Jardiance, Aldactone. Continue sternal precautions. Physical therapy/occupational therapy and cardiac rehab for ambulation. We will consult case management for possible placement to [facility] facility for continued rehab. * Postoperative acute pulmonary insufficiency. We will consult Pulmonary to ultrasound his left chest and if there is an effusion, to drain it. Wean nasal cannula oxygen to keep oxygen saturations greater than 90%. * Hypercholesterolemia. Lipitor at bedtime. Low cholesterol, cardiac diet. * Deep venous thrombosis prophylaxis. Lovenox subcutaneous daily. TID: [id number] RECEIPT: [id number]
[2025-02-26] VITALS (9 sets, daily range): BP systolic 96–107; BP diastolic 53–63; PULSE 65–76; RESP 18; TEMP 97–98.7; O2SAT 95–96
[2025-02-26 03:51] LABS: IMMATURE GRANULOCYTE ABSOLUTE 0.27 K/uL (0-1); NUCLEATED RED BLOOD CELLS 0.0 % (0.0-0.19); PLATELET COUNT (AUTO) 465 K/uL (130-400); RED BLOOD CELL COUNT(AUTO) 2.96 MIL/uL (4.50-6.20); RED CELL DISTRIBUTION WIDTH 15.6 % (11.0-15.5); WHITE BLOOD COUNT (AUTO) 15.4 K/uL (4.8-10.8)
[2025-02-26 04:15] LABS: ASPARTATE AMINOTRANSFERASE 18.0 U/L (10-37); CREATININE 1.1 mg/dL (0.5-1.3); GLOMERULAR FILTR. RATE CALC 70.0 mL/min (>90); GLUCOSE,RANDOM 123.0 mg/dL (70-105); SODIUM SERUM 139.0 mmol/L (136-145); TOTAL PROTEIN, SERUM 5.9 g/dL (6.0-8.3); UREA NITROGEN, BLOOD 24.0 mg/dL (7-18)
--- NOTE | 2025-02-26 08:27 | PN ---
[facility] PROGRESS NOTE Date Patient Seen: Feb 26, 2025 Time of Visit: 08:26 Supervising Physician: Dr. Louie Primary Care Physician: KELLEY ENCINAS MD Outpatient Specialists: Inpatient Consults: BIS PROBLEM LIST: CAD, status post CABG x3 Left-sided hemothorax s/p thoracentesis on 02/26/2025 with 1100 cc blood drained Impella and a intra-aortic balloon pump support Type 2 diabetes with hyperglycemia Congested heart failure EF 20% Obstructive coronary artery disease Atherosclerosis Primary hypertension Morbid obesity; BMI 36 Cardiogenic shock; resolved INTERVAL HISTORY: Patient evaluated at bedside today, he's resting comfortably, been working with the chemotherapy well, is at bedside, On chest X-ray, patient appears to have a left-sided pleural effusion, First EV surgery, we have been requested to attempt a thoracentesis, Ultrasound at bedside, showed adequate fluid for attempt, Thoracentesis was performed on the left side. Lung cavity, with approximately 1.1 liters of primarily sanguineous fluid removed, Patient tolerated the procedure well, We will order chest X-ray post-procedurally to evaluate for pneumothorax, At this time, patient will continue on the current CV-ICU protocol and will be assessed for SNF placement for continued physical therapy following his CABG procedure, REVIEW OF SYSTEMS: 12 point ROS reviewed with patient. Pertinent positives mentioned above. Otherwise negative. PHYSICAL EXAM: GENERAL: Patient comfortable in bed, HEENT: EOMI, Sclera non icteric, moist mucosa NECK: Supple, no JVD, trachea midline LUNGS: Clear breath sounds bilaterally. No wheezes HEART: Regular rate and rhythm. Normal S1 and S2, without murmurs sternum wound looks clean, no bleeding or discharge. ABD: Abdomen soft, nontender. Bowel sounds present EXT: Edema and hyperemia to the right ankle have improved compared to yesterday NEURO: Awake alert and oriented Vital Signs (last 8hr) Date Time Temp Pulse Resp B/P (MAP) Pulse Ox O2 Delivery O2 Flow Rate FiO2 02/26/25 07:54 97.5 66 18 106/60 97 Room Air 02/26/25 06:22 76 18 N/A Room Air 02/26/25 03:20 98.2 69 18 105/57 95 Room Air LABS: Hematology Labs: Test 02/26/25 03:11 Range/Units White Blood Count 15.4 H 4.8-10.8 K/uL Red Blood Count 2.96 L 4.50-6.20 MIL/uL Hemoglobin 8.9 L 14.0-18.0 g/dL Hematocrit 26.2 L 42-54 % Mean Corpuscular Volume 88.5 79-99 fL Mean Corpuscular Hemoglobin 30.1 27.0-33.0 pg Mean Corpuscular Hemoglobin Concent 34.0 32.0-36.0 g/dL Red Cell Distribution Width 15.6 H 11.0-15.5 % Platelet Count 465 H 130-400 K/uL Mean Platelet Volume 10.3 7.5-10.5 fL Immature Granulocyte % (Auto) 1.7 H 0-1 % Neutrophils (%) (Auto) 76.6 40.0-77.0 % Lymphocytes (%) (Auto) 13.5 L 21.0-51.0 % Monocytes (%) (Auto) 8.0 3.0-13.0 % Eosinophils (%) (Auto) 0.1 0.0-8.0 % Basophils (%) (Auto) 0.1 0.0-5.0 % Neutrophils # (Auto) 11.8 H 1.8-7.7 K/uL Lymphocytes # (Auto) 2.1 1.0-4.8 K/uL Monocytes # (Auto) 1.2 H 0.1-1.0 K/uL Eosinophils # (Auto) 0.02 0.00-0.70 K/uL Basophils # (Auto) 0.02 0.00-0.20 K/uL Absolute Immature Granulocyte (auto 0.27 0-1 K/uL Nucleated Red Blood Cells 0.0 0.0-0.19 % Chemistry Labs: Test 02/26/25 05:20 02/26/25 03:11 02/25/25 19:42 02/25/25 04:25 Range/Units Whole Blood Glucose 116 H 70-110 MG/DL Sodium Level 139 136-145 mmol/L Potassium Level 4.1 3.5-5.1 mmol/L Chloride Level 101 101-111 mmol/L Carbon Dioxide Level 28 21-32 mmol/L Blood Urea Nitrogen 24 H 7-18 mg/dL Creatinine 1.1 0.5-1.3 mg/dL Glomerular Filtration Rate Calc 70 >90 mL/min Random Glucose 123 H 70-105 mg/dL Total Calcium 8.1 L 8.5-10.1 mg/dL Total Bilirubin 1.3 H 0.2-1.0 mg/dL Aspartate Amino Transf (AST/SGOT) 18 10-37 U/L Alanine Aminotransferase (ALT/SGPT) 15 12-78 U/L Alkaline Phosphatase 57 50-136 U/L Total Protein 5.9 L 6.0-8.3 g/dL Albumin 3.0 L 3.5-5.0 g/dL Bedside Glucose Comment Notified Nurse Lactic Acid Level 1.4 0.8-2.5 mmol/L Phosphorus Level 3.5 2.5-4.9 mg/dL Magnesium Level 2.30 1.80-2.40 mg/dL DIAGNOSTICS / RADIOLOGY RESULTS: [ ] PLAN Pleural effusion is too small and does not require thoracentesis at this time as patient is on room air, saturating above 95% and without dyspnea or orthopnea continue incentive spirometry continue diuresis cardiac diet optimize cardiac medications continue aspirin continue statin continue beta estela NEURO: Minimize central acting medications as possible. Maintain fall precautions, adequate lighting during the day PULMONARY: Supplemental 02 as needed. Maintain aspiration precautions at all times CARDIOVASCULAR: Follow hemodynamics. Vital signs per facility protocol GI & NUTRITION: Continue with nutritional support. Continue stool softeners and laxatives as needed. KIDNEYS & ELECTROLYTES: Strict monitoring of intake, output and overall fluid balance. Avoid nephrotoxic medications to the extent possible. Medications to be dosed according to renal function. Monitor electrolytes and replace as needed ENDOCRINE: Maintain blood glucose between 100-180 at all times. Hypoglycemia protocol in place INFECTIOUS DISEASE: Trend temperature, WBC and procalcitonin level Follow cultures, deescalate antibiotics as soon as possible. Panculture if new onset fever ONCOLOGY/HEMATOLOGY/COAGULATION: Monitor for s/s of bleeding Monitor hemoglobin, coagulation studies as needed SKIN: Pressure ulcer prevention per facility protocol Specialty mattress ORTHO/REHAB: Continue PT/OT Prophylaxis: Continue GI and DVT prophylaxis Code Status: Full Resuscitation Disposition: as per cardiovascular NAYA TAYLOR PAC Feb 26, 2025 08:27
--- NOTE | 2025-02-26 09:11 | PN ---
[facility] PROGRESS NOTE Date Patient Seen: Feb 26, 2025 Time of Visit: 09:08 Interval History: No acute events overnight., patient currently denying any cardiac symptoms or anginal equivalents, respiratory status is stable, slightly improved. overnight urine output 2300 mL , chest x-ray shows ongoing bilateral pulmonary congestion mostly on the left Physical Examination: GENERAL: Patient comfortable in bed, HEENT: EOMI, Sclera non icteric, moist mucosa NECK: Supple, no JVD, trachea midline LUNGS: Decreased breath sounds in the bases bilaterally HEART: Regular rate and rhythm. Normal S1 and S2, without murmurs sternum wound looks clean, no bleeding or discharge. ABD: Abdomen soft, nontender. Bowel sounds present EXT: Right ankle edema, hyperemia, tenderness NEURO: Awake alert and oriented Laboratory: [ ] Hematology Labs: Test 02/26/25 03:11 Range/Units White Blood Count 15.4 H 4.8-10.8 K/uL Red Blood Count 2.96 L 4.50-6.20 MIL/uL Hemoglobin 8.9 L 14.0-18.0 g/dL Hematocrit 26.2 L 42-54 % Mean Corpuscular Volume 88.5 79-99 fL Mean Corpuscular Hemoglobin 30.1 27.0-33.0 pg Mean Corpuscular Hemoglobin Concent 34.0 32.0-36.0 g/dL Red Cell Distribution Width 15.6 H 11.0-15.5 % Platelet Count 465 H 130-400 K/uL Mean Platelet Volume 10.3 7.5-10.5 fL Immature Granulocyte % (Auto) 1.7 H 0-1 % Neutrophils (%) (Auto) 76.6 40.0-77.0 % Lymphocytes (%) (Auto) 13.5 L 21.0-51.0 % Monocytes (%) (Auto) 8.0 3.0-13.0 % Eosinophils (%) (Auto) 0.1 0.0-8.0 % Basophils (%) (Auto) 0.1 0.0-5.0 % Neutrophils # (Auto) 11.8 H 1.8-7.7 K/uL Lymphocytes # (Auto) 2.1 1.0-4.8 K/uL Monocytes # (Auto) 1.2 H 0.1-1.0 K/uL Eosinophils # (Auto) 0.02 0.00-0.70 K/uL Basophils # (Auto) 0.02 0.00-0.20 K/uL Absolute Immature Granulocyte (auto 0.27 0-1 K/uL Nucleated Red Blood Cells 0.0 0.0-0.19 % Chemistry Labs: Test 02/26/25 05:20 02/26/25 03:11 02/25/25 19:42 02/25/25 04:25 Range/Units Whole Blood Glucose 116 H 70-110 MG/DL Sodium Level 139 136-145 mmol/L Potassium Level 4.1 3.5-5.1 mmol/L Chloride Level 101 101-111 mmol/L Carbon Dioxide Level 28 21-32 mmol/L Blood Urea Nitrogen 24 H 7-18 mg/dL Creatinine 1.1 0.5-1.3 mg/dL Glomerular Filtration Rate Calc 70 >90 mL/min Random Glucose 123 H 70-105 mg/dL Total Calcium 8.1 L 8.5-10.1 mg/dL Total Bilirubin 1.3 H 0.2-1.0 mg/dL Aspartate Amino Transf (AST/SGOT) 18 10-37 U/L Alanine Aminotransferase (ALT/SGPT) 15 12-78 U/L Alkaline Phosphatase 57 50-136 U/L Total Protein 5.9 L 6.0-8.3 g/dL Albumin 3.0 L 3.5-5.0 g/dL Bedside Glucose Comment Notified Nurse Lactic Acid Level 1.4 0.8-2.5 mmol/L Phosphorus Level 3.5 2.5-4.9 mg/dL Magnesium Level 2.30 1.80-2.40 mg/dL Diagnostics / Radiology: [Copy/Paste Echos/Imaging Report here] 1. Non-STEMI. 2. Status post 3v CABG ( [id number] ) with left atrial jani endage clipping with insertion of IABP and Impella 02/14/2025. 3. Ischemic cardiomyopathy. 4. Postoperative blood loss anemia. 5. Type 2 diabetes mellitus. 6. History of CVA. #NSTEMI s/p Impella assisted CABG 3v (BISHOP to LAD, SVG to OM, SVG R PDA) with Left atrial clipping with a 45-mm AtriCure clip on 02/04/[address] Alexis -IABP discontinued 02/15 -Trop peak at 14,217, has downtrended to [id number] -patient currently denies any cardiac symptoms or anginal equivalents. -keep on telemetry, monitor/replace electrolytes as needed -Continue aspirin 81 mg qd, Atorvastatin 40mg q hs, and Coreg 3.125 mg every 12 hours -Rest of care per CV surgery ] #HFrEF ICM-LVEF 25-30 %-NYHA II Compensated and euvolemic on exam 2D echocardiogram (02/19/2025) LVEF 25-30%, anterior, anteroseptal wall is thinned and akinetic, anterior lateral wall is hypokinetic. Strict I's and O's and daily weights Currently requiring supplemental O2 by nasal cannula, currently denying any chest pain, palpitations dyspnea or any other anginal equivalents. C Chest x-ray shows ongoing bilateral pulmonary congestion mostly on the left , overnight uresis 2300 mL. We will increase Lasix to 40 mg IV every 12 hours, creatinine 1.1 Optimize GDM T: Jardiance 10 mg daily, Coreg 3.125 mg every 12 hours, [id number] mg daily Unable to initiate Entresto due to soft blood pressures. Thank you for this consult cardiology will continue to follow along Gerry castillo MD ATTESTATION BY PHYSICIAN I have seen and examined the patient, reviewed the above documentation, participated in medical decision making, made necessary modifications, and agree with the treatment plan as documented by my mid-level provider above. MD FELISA Sorensen JAMES R MD Feb 26, 2025 09:11
--- NOTE | 2025-02-26 10:17 | PN ---
[facility] PROGRESS NOTE Date of Service: Feb 26, 2025 Time of Service: 10:15 HISTORY OF PRESENT ILLNESS: This is a 74-year-old male,a [employer] by roman catholic whith past medical history of diabetes, hyperlipidemia and WI/coronary artery disease with cardiac stent who presented to the Ed for complaints of midsternal chest pain that is non radiating associated with diaphoresis and this happened when patient was laying down in bed aroun 11:50 pm last night and decided to come to the ED for evaluation.Patient reports pain was persistent.As per patient he had a history of heart attack before and underwent a stent placement.Patient reports the only medication he is taking is Metformin.Patient states he is supposed to be on Aspirin but has stopped taking it.Patient reports he occasionally drinks beer and last drink was yesterday ,had 2 beers he said. Seen and examined patient in the ER awake,alert and coherent,appears comfortable.Patient denies fever,chills,cough,nausea,vomiting,palpitation and shortness of breath. Latest vital signs temperature 98.2, heart rate 75, blood pressure 124/70 saturation 97% on room air. Labs: CBC unremarkable. Chloride 99, BUN 21, random glucose 469 to 439 to 327. Troponin from -. ECG result revealed revealed sinus rhythm heart rate 85 with atrial premature complex anterolateral infarct age indeterminate. Second EKG result revealed sinus rhythm heart rate 73 with left anterior fascicular block. Probable anterolateral infarct age indeterminate. Abnormal T consider ischemia lateral leads.. Chest x-ray result revealed no acute cardiopulmonary process is evident. While in the ER patient received 1500 mL NS bolus, insulin 5 units IV, aspirin 325 mg p.o. and patient was started on heparin drip per [facility] protocol. SUBJECTIVE: 02/10/25: Patient was seen and evaluated in ED9. Patient was alert, awake and orientedX3. Patient reports that he doesn't have any chest pain today. Patient reports occasional shortness of breath during nights. Patient denies any shortness of breath, nausea, vomiting, palpitations and lightheadedness. Patient denies any abdominal pain, burning urination. Patient mentions that he only takes metformin 3-4 times per week and has stopped taking aspirin because it wasn't reconciled. Troponin from -. 2D ECHO was done, pending results. Patient is currently on Heparin drip 02/11/25: Patient was evaluated at the bedside this morning. No overnight event. He is AAO x3. patient reported that he does not have chest pain or shortness of breath. He is hemodynamically stable. The labs remarkable for potassium 3.3, magnesium 1.6, HbA1c 13.9, troponin 65432. Left heart catheterization revealed severe triple-vessel disease. Echocardiogram revealed 25% ejection fraction with segmental akinesis. CT surgery was consulted who recommended CABG with Impella left ventricle assist. Family to decide about the procedure. He is currently on heparin drip, aspirin. Endocrinology on board. Rest of the plan as discussed below. 02/12/25: Patient was evaluated at the bedside this morning. No overnight event. He is AAO x3. patient reported that he does not have chest pain or shortness of breath. He is hemodynamically stable. Cardiology is on board and Dr. Blanton have suggested low-dose beta estela like metoprolol tartrate 12.5 mg b.i.d. for his heart failure. Dr Kaur still recommends CABG with 5.5 Impella LVAD and the patient agrees to it. We will continue Entresto, Aldactone, Jardiance, aspirin, Lasix as per CT surgeon recommendations. Today his potassium is 3.1 and we would like to be above 4 for CABG patients. So we will replace potassium 02/13/25: Patient was seen and evaluated in room 201. Patient reports feeling better. patient denies any chest pain, shortness of breath. He is continuing on Entresto, Aldactone, Jardiance, aspirin, Lasix as per CT surgeon recommendations.Patients Potassium today is 3.7, will continue replacing potassium. Patients was present along with the patient, she has a few question about the CABG procedure which she wanted to ask Dr. Alexis. 02/14/25. Patient was undergoing CABG procedure today in the morning. 02/15/25: Patient was seen and evaluated in room 213. Patient status post CABG day 1. Patient denies any fever, chills, shortness of breath. Patient complaints of pain along the incision. Patient is on IABP and Impella support. patient is on Vasopressin and Norepinephrine drip. Entresto, Aldactone, Jardiance were discontinued by Dr. Alexis. CT surgery are on the case and will follow their recommendations. 02/16/25: Patient was seen and evaluated in room 213. Patient status post CABG day 2. patient was asleep when we went bedside. Spoke with the nurse regarding overnights and she mentioned that patient was a bit confused in the night but later improved with sleep. Patient is continuing on Epinephrine drip. Patient was weaned off IABP and is currently only on Impella. Patient was started on Vancomycin and cefepime due to elevated WBC levels and findings suggestive of pneumonia on chest x-ray 02/17/25: Patient was seen and evaluated in room 213. Patient status post CABG day 2. patient was asleep when we went bedside. Spoke with the nurse regarding overnights and he mentioned that patient was started on lasix protocol. Patient is continuing on Epinephrine drip and Impella. Critical care are on the case and will follow their recommendations. 02/18/25: Patient was seen and examined at bedside. He is status post CABG day 3. He continues on Lasix drip 2.5, With Impella P3 support and epinephrine drip. His total output in the past 24 hours has been optimal, 4740 versus 2165 input. No acute events overnight. We will follow CTS recommendations regarding further weaning off Impella. 02/19/25: Patient was seen and evaluated in room 210. He is status post CABG day 4. He continues on Lasix drip 2.5, With Impella P3 support and epinephrine drip. His total output in the past 24 hours has been 2905 versus 4072. No acute overnight. Patient is scheduled for possible impella removal tomorrow. 02/20/25: Patient was seen and evaluated in room 210. He is status post CABG day 5. He continues on Lasix drip 2.5, Impella setting have been maintained at P3 settings. He is continuing on epinephrine drip. Cefepime was discontinued yesterday because overnight the patient was confused, agitated and combative suspecting the cause of his confusion and started on Zosyn. His total output in the past 24 hours has been 2675 versus 2206. Patient is scheduled for possible impella removal tomorrow. 02/21/25: Patient was seen and evaluated in room 210. He is status post CABG day 6. Patient is continuing on Epinephrine drip. patient was started on Lasix 20mg IV. Patient is scheduled for impella removal today. Patient is continuing on Zosyn. His total output in the past 24 hours has been 6700 versus 1785. 02/22/25: Patient was seen and evaluated in room 210. He is status post CABG day 7. Patient reports feeling better and he doesn't have any active complaints, Impella was removed yesterday and patient is continuing on Epinephrine drip. patient denies any shortness of breath, fever, chills and chest pain. Patient is continuing on Zosyn. His total output in the past 24 hours has been 3650 versus 1775. 02/23/25: Patient was seen and evaluated in room 210. He is status post CABG day 8. Patient complains of pain in left lower extremity, Patient denies any erythema, chest pain. Patient denies any fever, chills, shortness of breath, and dizziness. Ankle X-ray, US venous Doppler was ordered, will follow the results. Patient is continuing on lasix 20mg. His total output in the past 24 hours has been 4900 versus 1829. 02/24/25: Patient was seen and evaluated in room 210. He is status post CABG day 9. Patient is alert, awake, oriented X3. Patient reports that his pain in the left lower leg is getting better. Venous US ordered yesterday came back unre markable. Patient denies any chest pain, shortness of breath. Epinephrine drip was discontinued. Patient was started back on Coreg 3.125mg, Jardiance 10mg under cardiology recommendations. His total output in the past 24 hours has been 3300 versus 1560. 02/25/25: Patient was seen and evaluated in room 233 along with his . He is status post CABG day 10. Patient's mentioned that the patient passed blood clots in urine, Patient denies any burning micturition or difficulty urinating. Patient is alert, awake, oriented X3. Patient denies any pain in left lower extremity, Patient denies any chest pain, shortness of breath. Jardiance was stopped because of elevated bicarb. His total output in the past 24 hours has been 2300 versus 690. 02.26.2024: Patient is seen and evaluated in room 223. His current blood pressure is 105/57. He is on Aspirin, Lasix, Coreg, Jardiance, Aldactone, and Lipitor. Case management is coordinating cardiac rehabilitation and potential SNF placement tomorrow. Pulmonology advised thoracentesis for left pleural effusion, the patient is saturating above 95%. The patient reports no dyspnea or orthopnea. He is receiving 12 units of Lantus and is off the insulin drip. He is on Zosyn and Vancomycin, and his WBC is 15.4 today. Bilirubin is trending down to 1.3 REVIEW OF SYSTEMS CONSTITUTIONAL: Denies fevers, chills, or night sweats. No unintentional weight loss reported. NEUROLOGICAL: Denies headache, amaurosis fugax, motor weakness, sensory deficit, vertigo/spinning sensation, gait abnormalities, or tremors. ENT: No hearing loss, otalgia, otorrhea, rhinitis, rhinorrhea, hoarseness, or sore throat. CARDIOVASCULAR: Denies chest pain, dyspnea on exertion, orthopnea, paroxysmal nocturnal dyspnea, palpitations, life-threatening arrhythmias, claudication. PULMONARY: Denies any cough, phlegm/sputum, hemoptysis, pleuritic chest pain. GASTROINTESTINAL: Denies any type of dysphagia to either liquids or solids. Denies nausea, vomiting, pyrosis, early satiety, abdominal pain, diarrhea, constipation, or changes in stool consistency or caliber. Denies coffee-ground emesis, hematemesis, hematochezia, or melanotic stools. GENITOURINARY: Denies frequency, urgency, nocturia, hematuria or incontinence (Storage/Irritative symptoms.) Low urinary stream, straining to void, urinary intermittency or hesitancy, splitting of the voiding stream, terminal dribbling. PHYSICAL EXAM GENERAL APPEARANCE: The patient is awake, alert, and oriented, in no acute cardiopulmonary distress. NEUROLOGICAL: Motor is 5/5 in bilateral upper and lower extremities proximal to distal. No sensory deficits. HEENT: Face is symmetric. Pupils are equal and reactive. Extraocular movements are intact. NECK: Supple. No thyromegaly. No submental, submandibular, pre-/postauricular, occipital or supraclavicular lymphadenopathy. CHEST: Normal chest expansion. No Telemetry. LUNGS: Absence of any rales, rhonchi or any wheezing. CARDIOVASCULAR: Regular. S1 and S2 normal. No appreciable rubs, murmurs or gallops. ABDOMEN: Soft, nontender, and nondistended. There is no rebound, voluntary guarding, or rigidity. : Deferred. No De Jesus. EXTREMITIES: Non-edematous and not cyanotic. No clubbing. Good capillary refill. SKIN: sternal scar - post CABG Vital Signs (last 8hr) Date Time Temp Pulse Resp B/P (MAP) Pulse Ox O2 Delivery O2 Flow Rate FiO2 02/26/25 09:50 125/66 02/26/25 07:54 97.5 66 18 106/60 97 Room Air 21 02/26/25 06:22 76 18 N/A Room Air 02/26/25 03:20 98.2 69 18 105/57 95 Room Air LABS: Laboratory: Test 02/26/25 05:20 02/26/25 03:11 02/25/25 19:42 02/25/25 04:25 Range/Units Whole Blood Glucose 116 H 70-110 MG/DL White Blood Count 15.4 H 4.8-10.8 K/uL Red Blood Count 2.96 L 4.50-6.20 MIL/uL Hemoglobin 8.9 L 14.0-18.0 g/dL Hematocrit 26.2 L 42-54 % Mean Corpuscular Volume 88.5 79-99 fL Mean Corpuscular Hemoglobin 30.1 27.0-33.0 pg Mean Corpuscular Hemoglobin Concent 34.0 32.0-36.0 g/dL Red Cell Distribution Width 15.6 H 11.0-15.5 % Platelet Count 465 H 130-400 K/uL Mean Platelet Volume 10.3 7.5-10.5 fL Immature Granulocyte % (Auto) 1.7 H 0-1 % Neutrophils (%) (Auto) 76.6 40.0-77.0 % Lymphocytes (%) (Auto) 13.5 L 21.0-51.0 % Monocytes (%) (Auto) 8.0 3.0-13.0 % Eosinophils (%) (Auto) 0.1 0.0-8.0 % Basophils (%) (Auto) 0.1 0.0-5.0 % Neutrophils # (Auto) 11.8 H 1.8-7.7 K/uL Lymphocytes # (Auto) 2.1 1.0-4.8 K/uL Monocytes # (Auto) 1.2 H 0.1-1.0 K/uL Eosinophils # (Auto) 0.02 0.00-0.70 K/uL Basophils # (Auto) 0.02 0.00-0.20 K/uL Absolute Immature Granulocyte (auto 0.27 0-1 K/uL Nucleated Red Blood Cells 0.0 0.0-0.19 % Sodium Level 139 136-145 mmol/L Potassium Level 4.1 3.5-5.1 mmol/L Chloride Level 101 101-111 mmol/L Carbon Dioxide Level 28 21-32 mmol/L Blood Urea Nitrogen 24 H 7-18 mg/dL Creatinine 1.1 0.5-1.3 mg/dL Glomerular Filtration Rate Calc 70 >90 mL/min Random Glucose 123 H 70-105 mg/dL Total Calcium 8.1 L 8.5-10.1 mg/dL Total Bilirubin 1.3 H 0.2-1.0 mg/dL Aspartate Amino Transf (AST/SGOT) 18 10-37 U/L Alanine Aminotransferase (ALT/SGPT) 15 12-78 U/L Alkaline Phosphatase 57 50-136 U/L Total Protein 5.9 L 6.0-8.3 g/dL Albumin 3.0 L 3.5-5.0 g/dL Bedside Glucose Comment Notified Nurse Lactic Acid Level 1.4 0.8-2.5 mmol/L Phosphorus Level 3.5 2.5-4.9 mg/dL Magnesium Level 2.30 1.80-2.40 mg/dL Test 02/24/25 12:29 Range/Units Blood Gas Specimen Type Arterial Arterial Blood pH 7.484 H 7.350-7.450 Arterial Blood Partial Pressure CO2 29 L 35-48 mmHg Arterial Blood Partial Pressure O2 67.4 L 83.0-108.0 mmHg Arterial Blood HCO3 21.5 21.0-28.0 mmol/L Arterial Blood Oxygen Saturation 94.9 94.0-98.0 % Arterial Blood Base Excess -0.7 -2.0-3.0 mmol/L Blood Gas Temperature 37.0 35.5-37.0 CELSIUS Blood Gas Vent Mode ROOM AIR ROOM AIR FiO2 21.0 % Blood Gas Specimen Comment HIWOT COOK Current Medications Medications (Trade) Dose Ordered Sig/Carol Route PRN Reason Start Time Stop Time Status Last Admin Dose Admin Acetaminophen (TYLenol 325MG TAB) 650 mg Q4H PRN PO MILD PAIN (1-3) 02/10/25 05:00 02/14/25 10:05 DC Acetaminophen (TYLenol 325MG TAB) 650 mg Q4H PRN PO Temp >38.3C(AFTER EXTUBATION) 02/14/25 10:00 03/16/25 09:59 Acetaminophen (TYLenol 325MG TAB) 650 mg Q6H PRN PO TEMPERATURE GREATER THAN 101.5 02/10/25 05:00 02/14/25 10:17 DC 02/12/25 17:13 650 MG Acetaminophen (TYLenol 325MG TAB) 650 mg Q6H PRN PO MILD PAIN (1-3) 02/14/25 10:00 03/16/25 09:59 Acetaminophen (TYLenol 650MG SUPPOSITORY) 650 mg Q4H PRN RC Temp >38.3C WHILE INTUBATED 02/14/25 10:00 02/23/25 11:52 DC Acetaminophen (acetaMINOPHEN 1,000MG/100ML) 1,000 mg Q6H6 IV 02/14/25 14:00 02/15/25 13:59 DC 02/15/25 12:14 1,000 MG Albumin Human 50 ml @ 0 mls/hr Q12H9 IV 02/20/25 09:00 02/24/25 08:42 DC 02/24/25 08:15 100 MLS/HR Albumin Human 250 ml @ 0 mls/hr AD IV 02/14/25 15:30 02/18/25 10:40 DC 02/18/25 10:27 250 MLS/HR Albumin Human 250 ml @ 0 mls/hr AD IV 02/18/25 10:30 02/20/25 09:03 DC Albumin Human 250 ml @ 0 mls/hr AD PRN IV IF HEMODYNAMICALLY UNSTABLE 02/14/25 10:00 02/14/25 14:42 DC 02/14/25 14:42 500 MLS/HR Aminocaproic Acid 87316 mg/Sodium Chloride 310 ml @ 25 mls/hr AD IV 02/14/25 10:00 02/14/25 10:19 DC Aminocaproic Acid 48300 mg/Sodium Chloride 480 ml @ 0 mls/hr AD PRN IV BLEEDING CONTROL 02/14/25 06:30 02/23/25 11:52 DC Aminocaproic Acid 66852 mg/Sodium Chloride 480 ml @ 0 mls/hr AD PRN IV BLEEDING CONTROL 02/14/25 07:00 02/14/25 06:51 DC Aspirin (Aspirin 325mg Tab) 325 mg ONCE PO 02/10/25 14:30 02/10/25 17:22 DC 02/10/25 14:32 325 MG Aspirin (Aspirin 81mg Ec Tab) 81 mg DAILY PO 02/10/25 09:00 03/12/25 08:59 02/26/25 09:50 81 MG Atorvastatin Calcium (LIPItor 40MG) 40 mg HS PO 02/14/25 21:00 03/16/25 20:59 02/25/25 21:31 40 MG Calcium Gluconate 1 gm/Sodium Chloride 60 ml @ 200 mls/hr AD PRN IV HYPOCALCEMIA 02/14/25 10:00 03/16/25 09:59 02/21/25 08:36 200 MLS/HR Carvedilol (Coreg 3.125MG) 3.125 mg BID PO 02/20/25 21:00 02/24/25 06:13 DC Carvedilol (Coreg 3.125MG) 3.125 mg BID PO 02/24/25 09:00 03/26/25 08:59 02/26/25 09:50 3.125 MG Cefazolin Sodium (Ancef) 2 gm ONCALL IVP 02/13/25 20:00 02/14/25 18:51 DC 02/14/25 08:50 2 GM Cefazolin Sodium (Ancef) 2 gm Q8H IVPB 02/14/25 15:00 02/15/25 07:01 DC 02/15/25 06:25 2 GM Cefepime HCl (MAXipime 1 GM vial) 1 gm Q12H IVPB 02/16/25 10:30 02/20/25 08:16 DC 02/19/25 22:54 1 GM Clopidogrel Bisulfate (plaVIX 300MG TAB) 600 mg ONCE PO 02/10/25 14:00 02/10/25 17:22 DC 02/10/25 14:19 600 MG Clopidogrel Bisulfate (plaVIX 75MG) 75 mg DAILY PO 02/11/25 09:00 02/11/25 07:28 DC Dexmedetomidine/ Sodium Chloride (PRECEdex 400MCG/ 100ML-NS) 400 mcg PROTOCOL IV 02/14/25 10:00 02/15/25 09:59 DC Dexmedetomidine/ Sodium Chloride (PRECEdex 400MCG/ 100ML-NS) 400 mcg PROTOCOL IV 02/20/25 07:30 02/22/25 15:01 DC 02/22/25 05:51 400 MCG Dexmedetomidine/ Sodium Chloride (PRECEdex 400MCG/ 100ML-NS) 400 mcg PROTOCOL IV 02/23/25 00:00 03/25/25 00:00 02/23/25 00:17 400 MCG Dextrose (D50w) 50 ml AD PRN IV HYPOGLYCEMIA PROTOCOL 02/10/25 05:00 02/14/25 10:17 DC Dextrose (D50w) 50 ml AD PRN IV HYPOGLYCEMIA PROTOCOL 02/14/25 10:00 03/16/25 09:59 Docusate Sodium (COLace 100MG CAP) 100 mg BID PO 02/14/25 21:00 03/16/25 20:59 02/26/25 09:50 100 MG Empaglifozin (Jardiance 10mg) 10 mg DAILY PO 02/10/25 14:30 02/14/25 09:59 DC 02/13/25 10:52 10 MG Empaglifozin (Jardiance 10mg) 10 mg DAILY PO 02/20/25 09:00 02/22/25 15:01 DC 02/22/25 09:38 10 MG Empaglifozin (Jardiance 10mg) 10 mg DAILY PO 02/24/25 09:00 02/24/25 13:01 DC 02/24/25 08:47 10 MG Enoxaparin Sodium (Lovenox) 30 mg DAILY SQ 02/17/25 09:00 03/19/25 08:59 02/26/25 09:51 30 MG Epinephrine HCl 10 mg/Sodium Chloride 250 ml @ 0 mls/hr AD PRN IV TITRATE 02/14/25 06:30 03/16/25 06:29 02/20/25 17:32 2.9 MLS/HR Epinephrine HCl 10 mg/Sodium Chloride 250 ml @ 0 mls/hr AD PRN IV TITRATE 02/14/25 07:00 02/14/25 06:51 DC Epinephrine HCl 10 mg/Sodium Chloride 250 ml @ 0 mls/hr AD PRN IV POST-OP CARDIOVASCULAR ORDERS 02/14/25 10:00 02/14/25 10:14 DC Famotidine (Pepcid 20mg Vial) 20 mg BID IV 02/14/25 21:00 02/16/25 07:58 DC 02/15/25 20:15 20 MG Famotidine (Pepcid 20mg Tab) 20 mg BID PO 02/16/25 09:00 02/17/25 07:09 DC 02/16/25 20:03 20 MG Famotidine (Pepcid 20mg Tab) 20 mg DAILY PO 02/10/25 09:00 02/14/25 09:59 DC 02/13/25 10:53 20 MG Famotidine (Pepcid 20mg Tab) 20 mg DAILY PO 02/17/25 09:00 03/18/25 08:59 02/26/25 09:50 20 MG Furosemide (LASix 20MG TAB) 20 mg DAILY PO 02/11/25 09:00 02/14/25 09:59 DC 02/13/25 10:52 20 MG Furosemide (LASix 20MG TAB) 20 mg Q12H PO 02/16/25 09:00 02/16/25 10:21 DC 02/16/25 08:19 20 MG Furosemide (LASix 20MG VIAL) 20 mg ONCE IV 02/10/25 17:00 02/10/25 21:00 DC 02/10/25 17:00 20 MG Furosemide (LASix 20MG VIAL) 20 mg ONCE IV 02/11/25 09:00 02/11/25 07:43 DC Furosemide (LASix 20MG VIAL) 20 mg Q12H IV 02/15/25 09:00 02/16/25 08:59 DC 02/15/25 20:16 20 MG Furosemide (LASix 20MG VIAL) 20 mg Q12H IV 02/20/25 09:00 02/26/25 09:43 DC 02/25/25 21:27 20 MG Furosemide (LASix 40MG VIAL) 40 mg Q12H IV 02/26/25 10:00 03/28/25 09:59 02/26/25 09:49 40 MG Furosemide 100 mg/ Sodium Chloride 100 ml @ 0 mls/hr PROTOCOL IV 02/16/25 10:30 02/20/25 09:01 DC 02/19/25 11:35 2.5 MLS/HR Glucagon (Glucagon 1mg Kit) 1 mg AD PRN IM HYPOGLYCEMIA PROTOCOL 02/10/25 05:00 02/14/25 10:17 DC Glucagon (Glucagon 1mg Kit) 1 mg AD PRN IM HYPOGLYCEMIA PROTOCOL 02/14/25 10:00 03/16/25 09:59 Heparin Sodium (Porcine) (HEParin 5,000 UNIT VIAL) *calculation based on ACTUAL B... AD PRN IV HEPARIN PROTOCOL 02/12/25 21:00 02/14/25 09:59 DC 02/12/25 20:16 4,000 UNIT Heparin Sodium/ Dextrose 250 ml @ 0 mls/hr PROTOCOL IV 02/10/25 03:00 02/10/25 17:22 DC 02/10/25 03:00 16.2 MLS/HR Heparin Sodium/ Dextrose 250 ml @ 0 mls/hr Q6H IV 02/11/25 06:30 02/14/25 09:59 DC 02/13/25 13:01 9 MLS/HR Home Med (Home Medication) (Brimonidine-Timolol 0.2%/0.5% EYE DROPS) DAILY OP 02/18/25 09:00 03/20/25 08:59 02/26/25 09:56 1 EACH Insulin Glargine (LANtus 100 UNITS/ML 10 ML VIAL) 10 units DAILY SQ 02/21/25 09:00 02/22/25 19:17 DC 02/22/25 11:54 10 UNITS Insulin Glargine (LANtus 100 UNITS/ML 10 ML VIAL) 12 units DAILY SQ 02/23/25 09:00 03/25/25 08:59 02/26/25 09:55 12 UNITS Insulin Glargine (LANtus 100 UNITS/ML 10 ML VIAL) 12 units DAILY08 02/13/25 08:00 02/14/25 09:59 DC 02/13/25 10:51 12 UNITS Insulin Glargine (LANtus 100 UNITS/ML 10 ML VIAL) 15 units DAILY08 SQ 02/11/25 08:00 02/13/25 05:24 DC 02/12/25 08:54 15 UNITS Insulin Human Regular (humuLIN R 100 UNIT/ML 3ML) 3 unit TIDAC SQ 02/12/25 07:30 02/14/25 09:59 DC 02/12/25 16:31 3 UNIT Insulin Human Regular (humuLIN R 100 UNIT/ML 3ML) INSULIN SLIDING SCAL... ACHS SQ 02/16/25 11:30 03/18/25 11:29 02/25/25 21:26 2 UNIT Insulin Human Regular (humuLIN R 100 UNIT/ML 3ML) INSULIN SLIDING SCAL... Q4H SQ 02/10/25 05:00 02/10/25 11:10 DC 02/10/25 09:15 6 UNIT Insulin Human Regular (humuLIN R 100 UNIT/ML 3ML) INSULIN SLIDING SCAL... Q6H6 SQ 02/10/25 12:00 02/14/25 09:59 DC 02/11/25 17:29 2 UNIT Insulin Human Regular 100 unit/ Sodium Chloride 100 ml @ 0 mls/hr AD IV 02/14/25 10:00 02/16/25 09:59 DC 02/15/25 06:30 3 MLS/HR Lactulose (Constulose 20gm/ 30ml Udcup) 20 gm BID PRN PO CONSTIPATION 02/14/25 10:00 03/16/25 09:59 Latanoprost (Xalatan) 1 DROP FOR EACH EYE HS OP 02/17/25 21:00 03/19/25 20:59 02/25/25 21:45 1 DROP Magnesium Hydroxide (Milk Of Magnesium 30ml) 30 ml DAILY PRN PO CONSTIPATION 02/14/25 10:00 03/16/25 09:59 Magnesium Sulfate 50 ml @ 12.5 mls/hr AD PRN IV MAG LEVEL LESS THAN 2.0 02/14/25 10:00 03/16/25 09:59 02/24/25 08:17 12.5 MLS/HR Magnesium Sulfate 50 ml @ 0 mls/hr PROTOCOL PRN IV OTHER [SEE ORDER COMMENTS] 02/10/25 05:00 02/14/25 10:17 DC 02/12/25 07:13 25 MLS/HR Metoprolol Tartrate (loprESSOR) 12.5 mg BID PO 02/12/25 09:00 02/14/25 09:59 DC 02/14/25 06:44 12.5 MG Metoprolol Tartrate (loprESSOR) 12.5 mg BID PO 02/16/25 09:00 02/20/25 09:01 DC Midodrine (PROAMatine 5 MG TABLET) 10 mg TID PO 02/23/25 14:00 03/25/25 13:59 02/26/25 09:50 10 MG Morphine Sulfate (morPHINE 2MG SYG) 0.5 mg Q2H PRN IV MODERATE PAIN (4-6) IF NPO 02/14/25 10:00 02/15/25 09:59 DC Morphine Sulfate (morPHINE 2MG SYG) 1 mg Q2H PRN IV SEVERE PAIN (7-10) IF NPO 02/14/25 10:30 02/19/25 13:29 DC 02/14/25 14:23 1 MG Nitroglycerin (Nitrostat) 0.4 mg PROTOCOL PRN SL CHEST PAIN 02/10/25 05:00 02/14/25 09:59 DC Nitroglycerin/ Dextrose 0 ml @ 0 mls/hr AD IV 02/14/25 10:00 02/17/25 09:59 DC Norepinephrine Bitartrate 250 ml @ 0 mls/hr AD PRN IV TITRATE 02/14/25 06:30 03/16/25 06:29 02/17/25 01:06 1.9 MLS/HR Norepinephrine Bitartrate 250 ml @ 0 mls/hr AD PRN IV TITRATE 02/14/25 07:00 02/14/25 06:51 DC Norepinephrine Bitartrate 8 mg/ Dextrose 250 ml @ 0 mls/hr AD PRN IV POST-OP CARDIOVASCULAR ORDERS 02/14/25 10:00 02/14/25 10:14 DC Ondansetron HCl (zoFRAN 4MG INJ) 4 mg Q6H PRN IV NAUSEA/VOMITING 02/10/25 05:00 02/14/25 10:17 DC Ondansetron HCl (zoFRAN 4MG INJ) 4 mg Q6H PRN IV NAUSEA/VOMITING 02/14/25 10:00 03/16/25 09:59 Pharmacy Profile Note (Pharmacy Communication) 1 each ONCE MISC 02/14/25 18:00 02/14/25 18:27 DC Pharmacy Profile Note (Pharmacy Communication) 1 each ONCE MISC 02/20/25 11:30 02/20/25 11:19 DC Piperacillin Sod/ Tazobactam Sod 50 ml @ 12.5 mls/hr Q8H IVPB 02/20/25 11:30 02/24/25 18:10 DC 02/24/25 11:45 12.5 MLS/HR Piperacillin Sod/ Tazobactam Sod 50 ml @ 12.5 mls/hr Q8H6 IVPB 02/24/25 22:00 03/06/25 21:59 02/26/25 06:34 12.5 MLS/HR Potassium Phosphate 250 ml @ 42 mls/hr AD PRN IV LOW PHOS LEVEL 02/14/25 10:00 03/16/25 09:59 Potassium Chloride 100 ml @ 100 mls/hr AD PRN IV POTASSIUM PROTOCOL 02/10/25 05:00 02/15/25 06:27 DC 02/15/25 05:43 100 MLS/HR Potassium Chloride 100 ml @ 100 mls/hr AD PRN IV HYPOKALEMIA 02/14/25 10:00 03/16/25 09:59 02/21/25 16:43 100 MLS/HR Potassium Chloride (K-Dur/Klor-Con 20meq) 20 meq AD PRN PO POTASSIUM PROTOCOL 02/10/25 05:00 03/12/25 04:59 02/18/25 20:18 20 MEQ Potassium Chloride (K-Dur/Klor-Con 20meq) 20 meq BID PO 02/19/25 10:30 03/21/25 10:29 02/26/25 09:55 20 MEQ Potassium Chloride (KCl 10% Elixir 20meq/15ml) 20 meq AD PRN PO POTASSIUM PROTOCOL 02/10/25 05:00 03/12/25 04:59 02/25/25 09:30 20 MEQ Prednisone (deltaSONE/ oraSONE 20MG TAB) 20 mg DAILY PO 02/23/25 12:30 02/26/25 13:00 02/26/25 09:50 20 MG Propofol 100 ml @ 0 mls/hr AD PRN IV SEDATION 02/14/25 10:00 02/18/25 09:59 DC Sacubitril/ Valsartan (Entresto 24 Mg-26 Mg Tablet) 0.5 each BID PO 02/10/25 21:00 02/14/25 09:59 DC 02/13/25 21:11 0.5 EACH Sodium Bicarbonate 25 meq/Dextrose 1,025 ml @ 0 mls/hr Q0M IV 02/14/25 18:00 03/16/25 17:59 02/18/25 13:03 9.9 MLS/HR Sodium Bicarbonate (Sodium Bicarb 50meq 50ml Vial) 50 meq AD PRN IV OTHER[SEE DOSING INSTRUCTIONS] 02/14/25 10:00 02/17/25 09:59 DC 02/16/25 15:25 50 MEQ Sodium Chloride 500 ml @ 0 mls/hr AD IV 02/14/25 10:00 03/16/25 09:59 Sodium Chloride 1,000 ml @ 10 mls/hr ONCE IV 02/14/25 10:00 02/15/25 09:59 DC Sodium Chloride 1,000 ml @ 100 mls/hr Q10H IV 02/10/25 05:00 02/10/25 17:22 DC 02/10/25 14:20 100 MLS/HR Sodium Chloride (NS Flush 10ml) 10 ml Q8H PRN IVP IV LINE FLUSH 02/14/25 10:00 03/16/25 09:59 Spironolactone (Aldactone 25mg) 25 mg DAILY PO 02/10/25 14:30 02/14/25 09:59 DC 02/13/25 10:52 25 MG Spironolactone (Aldactone 25mg) 25 mg DAILY PO 02/20/25 09:00 03/22/25 08:59 02/26/25 09:55 25 MG Tramadol HCl (UltRAM) 25 mg Q6H PRN PO MODERATE PAIN (4-6) 02/14/25 10:00 02/19/25 09:59 DC Tramadol HCl (UltRAM) 50 mg Q6H PRN PO SEVERE PAIN (7-10) 02/14/25 10:00 02/19/25 09:59 DC Vancomycin HCl 250 ml @ 125 mls/hr Q12H IV 02/18/25 11:30 02/21/25 05:33 DC 02/19/25 11:20 125 MLS/HR Vancomycin HCl 250 ml @ 125 mls/hr Q24H IV 02/21/25 06:00 02/24/25 05:57 DC 02/23/25 06:28 125 MLS/HR Vancomycin HCl 250 ml @ 125 mls/hr Q24H IV 02/24/25 06:30 02/24/25 12:15 DC 02/24/25 06:26 125 MLS/HR Vancomycin HCl (Vancomycin Protocol) 1 each AD IV 02/18/25 11:00 02/24/25 12:15 DC Vasopressin 40 units/Sodium Chloride 40 ml @ 0 mls/hr PROTOCOL IV 02/14/25 13:00 03/16/25 12:59 02/14/25 22:11 1.8 MLS/HR DIAGNOSTICS / RADIOLOGY: [ ] ASSESSMENT: Chest pain rule out ACS: NSTEMI POA Suspected pneumonia findings on Chest X-ray Possible metabolic encephalopathy Hyperglycemia secondary to uncontrolled diabetes POA Hyperlipidemia POA Medication noncompliance, POA Obesity POA [place]/Coronary artery disease with cardiac stent POA PLAN: NSTEMI POA: * EKG was done which revealed sinus rhythm heart rate 85 with atrial premature complex anterolateral infarct age indeterminate. Second EKG result revealed sinus rhythm heart rate 73 with left anterior fascicular block. Probable anterolateral infarct age indeterminate. Abnormal T consider ischemia lateral leads. * PERC score was one, Wells score was zero. Very low suspicion for Pulmonary Embolism. * Chest X - ray on 02.25.2025 - Persistent small left pleural effusion with left mid and lower zone airspace opacities, significantly unchanged from prior study. * Thoracentesis done today - removed 1.1 lit of fluid by Dr. Loiue and the patient tolerated the procedure well * Chest x-ray done on 02/17/25 show, small stable left pleural effusion with adjacent lung atelectasis. follow up x-ray from 02/22/25 show Cardiomegaly with median sternotomy with cardiac revascularization procedure, there is suggestion of a moderate left-sided pleural effusion. * 2-D ECHO on 02/19/25 show LVEF of 25-30% with segmental akinesis (apical, apical lateral, anteroapical), LDL 89, BNP 488 * Troponin trends [id number] * Left heart catheterization revealed severe three-vessel CAD with occluded mid LAD, 90% proximal left circumflex, 95% distal RCA, and 90% ostial PDA. * As per CT surgeon recommendations Entresto 0.5 each, was held. 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 * On aspirin 81 mg p.o. * Patient started on lasix 20mg IV, Aldactone 25mg. His total output in the past 24 hours has been 2300 versus 690. * Impella removed * Epinpehrine drip was discontinued and patient was started on Coreg 31.125, * Jardiance 10mg was held due to elevated bicarb. Suspected pneumonia findings on Chest X-ray * Chest x-ray done on 02/16/25 show diffuse airspace disease of the left lung, predominantly involving the left lower zone, could be due to an infection or atelectasis. Questionable left pleural effusion. * Chest x-ray done on 02/17/25 show, small stable left pleural effusion with adjacent lung atelectasis. follow up x-ray from 02/19/25 show no interval change. * Patient started on Zosyn from 02/20/25 * WBC count on (02/26/25) - 15.4 * Patient started on Prednisone 20mg PO * Will monitor with daily labs. Possible metabolic encephalopathy * Chest x-ray done on 02/17/25 show, small stable left pleural effusion with adjacent lung atelectasis. * Patient was started on Vancomycin and cefepime due to elevated WBC levels and findings suggestive of pneumonia on chest x-ray * Cefepime was discontinued on 02/20/25 because the patient was confused, agitated and combative suspecting the cause of his confusion and was started on Zosyn. * Will monitor with daily labs Hyperglycemia secondary to uncontrolled diabetes POA: * HbA1c 13.9, blood glucose 123 * Following the Endocrinology recommendations. He is on Lantus 15 units, low- dose sliding scale insulin * Jardiance 10mg was held due to elevated bicarb. * We will monitor blood glucose. Hypokalemia Hypomagnesemia * Potassium 4.1 - ..2024 * Magnesium 2.3 (02/26/25) * We will replete the electrolytes and monitor. * Keep potassium above 4 and magnesium above 2. * We will start Slow-Mag oral t.i.d. once and will keep monitoring magnesium levels. Supportive measures * GI prophylaxis with Famotidine * DVT prophylaxis with SCD's ATTESTATION BY PHYSICIAN I have seen and examined the patient. I reviewed the documentation, medical decision making, and treatment plan as noted by the resident provider above. I agree with the findings and plan of care. Joe Jackman MD, LAKSHMI MD Feb 26, 2025 10:17
--- NOTE | 2025-02-26 13:20 | NUR ---
DR LOVELACE AND NAYA MILLER DOUGHNUT GLAZIER PERFORMED LEFT THORACENTESIS AT BEDSIDE. 1100CC OF BLOODY FLUID REMOVED. PATIENT TOLERATED THE PROCEDURE WELL
--- NOTE | 2025-02-26 14:08 | PRN ---
Procedure performed: Thoracentesis Intraoperative US Body site: Left chest Description of procedure: Consent obtained Time out done Hand hygiene Intraoperative US used to localize pleural fluid and edgardo the skin at puncture site. Thoracentesis tray used. [1100] ml of bloody pleural fluid drained Pt tolerated procedure well Post procedure chest x ray was ordered NAYA TAYLOR PAC Feb 26, 2025 14:08
--- NOTE | 2025-02-26 14:33 | NUR ---
[facility] Met w pt and spouse this afternoon to follow up on dcp. They mention that they have discussed options and 1st choice will be [facility]. 2nd WOH. DANIAL obtained. Informed them would be pending ins approval. Referral/PAS[facility] faxed to [facility]. Luann notified of new referral.
--- NOTE | 2025-02-26 19:43 | PN ---
Endocrinology progress note DOS: 02/26/25 subjective: glucose are improving/stable and s/p CABG procedure Home diabetic regimen: metformin 500 mg bid, Hba1c 13.9% PAST MEDICAL HISTORY: [ Diabetes, hyperlipidemia, SD/coronary artery disease ] PAST SURGICAL HISTORY: [ Cardiac stent, cholecystectomy and left inguinal hernia repair ] PAST SOCIAL HISTORY: [ Patient lives with . Patient admits he drinks two beer yesterday. Patient reports he occasional drinks alcohol denies cigarette and recreational drug use. ] FAMILY HISTORY: [ Diabetes, cardiovascular disease, asthma and cancer ] Coded Allergies: No Known Drug Allergies (Unverified Allergy, Unknown, 08/31/15) ASSESSMENT: Hyperglycemia secondary to uncontrolled diabetes POA Home diabetic regimen: metformin 500 mg bid, Hba1c 13.9% glucose is improving. NSTEMI POA s/p CABG triple vessel disease s/p CABG Hyperlipidemia POA Obesity POA SD/Coronary artery disease with cardiac stent POA PLAN: OFF insulin drip continue lantus 12 units daily. off regular insulin. Continue low dose sliding scale insulin. Monitor glucose q x 6 hourly. Keep glucose less than 180 mg/dl. Patient will need insulin at discharge Vitals/Labs Vital Signs Date Time Temp Pulse Resp B/P (MAP) Pulse Ox O2 Delivery O2 Flow Rate FiO2 02/26/25 18:59 97.5 68 18 96/53 95 Room Air 02/26/25 16:00 21 02/26/25 07:00 0 Laboratory Tests 02/26/25 03:11 Medications Current Medications Sodium Chloride 1,000 ml @ 0 mls/hr ONCE ONCE IV; Start 02/10/25 at 01:00; Stop 02/10/25 at 00:46; Status DC Sodium Chloride 500 ml @ 0 mls/hr ONCE ONCE IV Last administered on 02/10/25at 00:53; Start 02/10/25 at 01:00; Stop 02/10/25 at 01:01; Status DC Insulin Human Regular 5 unit ONCE ONCE IV Last administered on 02/10/25at 01:30; Start 02/10/25 at 01:30; Stop 02/10/25 at 01:31; Status DC Aspirin 325 mg ONCE ONCE PO Last administered on 02/10/25at 02:32; Start 02/10/25 at 02:30; Stop 02/10/25 at 02:31; Status DC Heparin Sodium/ Dextrose 250 ml @ 0 mls/hr PROTOCOL IV Last administered on 02/10/25at 03:00; Start 02/10/25 at 03:00; Stop 02/10/25 at 17:22; Status DC Heparin Sodium (Porcine) 7,000 unit ONCE ONCE SQ Last administered on 02/10/25at 02:55; Start 02/10/25 at 03:00; Stop 02/10/25 at 03:01; Status DC Acetaminophen 650 mg Q6H PRN PO Last administered on 02/12/25at 17:13; Start 02/10/25 at 05:00; Stop 02/14/25 at 10:17; Status DC Acetaminophen 650 mg Q4H PRN PO; Start 02/10/25 at 05:00; Stop 02/14/25 at 10:05; Status DC Ondansetron HCl 4 mg Q6H PRN IV; Start 02/10/25 at 05:00; Stop 02/14/25 at 10:17; Status DC Nitroglycerin 0.4 mg PROTOCOL PRN SL; Start 02/10/25 at 05:00; Stop 02/14/25 at 09:59; Status DC Famotidine 20 mg DAILY PO Last administered on 02/13/25at 10:53; Start 02/10/25 at 09:00; Stop 02/14/25 at 09:59; Status DC Sodium Chloride 1,000 ml @ 100 mls/hr Q10H IV Last administered on 02/10/25at 14:20; Start 02/10/25 at 05:00; Stop 02/10/25 at 17:22; Status DC Insulin Human Regular INSULIN SLIDING SCAL... Q4H SQ Last administered on 02/10/25at 09:15; Start 02/10/25 at 05:00; Stop 02/10/25 at 11:10; Status DC Dextrose 50 ml AD PRN IV; Start 02/10/25 at 05:00; Stop 02/14/25 at 10:17; Status DC Glucagon 1 mg AD PRN IM; Start 02/10/25 at 05:00; Stop 02/14/25 at 10:17; Status DC Magnesium Sulfate 50 ml @ 0 mls/hr PROTOCOL PRN IV Last administered on 02/12/25at 07:13; Start 02/10/25 at 05:00; Stop 02/14/25 at 10:17; Status DC Potassium Chloride 100 ml @ 100 mls/hr AD PRN IV Last administered on 02/15/25at 05:43; Start 02/10/25 at 05:00; Stop 02/15/25 at 06:27; Status DC Potassium Chloride 20 meq AD PRN PO Last administered on 02/25/25at 09:30; Start 02/10/25 at 05:00; Stop 03/12/25 at 04:59 Potassium Chloride 20 meq AD PRN PO Last administered on 02/18/25at 20:18; Start 02/10/25 at 05:00; Stop 03/12/25 at 04:59 Aspirin 81 mg DAILY PO Last administered on 02/26/25at 09:50; Start 02/10/25 at 09:00; Stop 03/12/25 at 08:59 Insulin Human Regular INSULIN SLIDING SCAL... Q6H6 SQ Last administered on 02/11/25at 17:29; Start 02/10/25 at 12:00; Stop 02/14/25 at 09:59; Status DC Clopidogrel Bisulfate 600 mg ONCE PO Last administered on 02/10/25at 14:19; Start 02/10/25 at 14:00; Stop 02/10/25 at 17:22; Status DC Aspirin 325 mg ONCE PO Last administered on 02/10/25at 14:32; Start 02/10/25 at 14:30; Stop 02/10/25 at 17:22; Status DC Sacubitril/ Valsartan 0.5 each BID PO Last administered on 02/13/25at 21:11; Start 02/10/25 at 21:00; Stop 02/14/25 at 09:59; Status DC Empaglifozin 10 mg DAILY PO Last administered on 02/13/25at 10:52; Start 02/10/25 at 14:30; Stop 02/14/25 at 09:59; Status DC Spironolactone 25 mg DAILY PO Last administered on 02/13/25at 10:52; Start 02/10/25 at 14:30; Stop 02/14/25 at 09:59; Status DC Furosemide 20 mg ONCE IV Last administered on 02/10/25at 17:00; Start 02/10/25 at 17:00; Stop 02/10/25 at 21:00; Status DC Furosemide 20 mg ONCE IV; Start 02/11/25 at 09:00; Stop 02/11/25 at 07:43; Status DC Lidocaine HCl 20 ml STK-MED ONCE .ROUTE; Start 02/10/25 at 15:22; Stop 02/10/25 at 15:23; Status DC Iohexol 35,000 mg STK-MED ONCE IV; Start 02/10/25 at 15:22; Stop 02/10/25 at 15:23; Status DC Iohexol 50 ml STK-MED ONCE IV; Start 02/10/25 at 15:22; Stop 02/10/25 at 15:23; Status DC Heparin Sodium (Porcine) 10,000 unit STK-MED ONCE .ROUTE; Start 02/10/25 at 15:23; Stop 02/10/25 at 15:23; Status DC Heparin Sodium/ Sodium Chloride 1,000 ml @ As Directed STK-MED ONCE IV; Start 02/10/25 at 15:23; Stop 02/10/25 at 15:23; Status DC Nitroglycerin 50 mg STK-MED ONCE .ROUTE; Start 02/10/25 at 15:23; Stop 02/10/25 at 15:23; Status DC Heparin Sodium/ Sodium Chloride 500 ml @ As Directed STK-MED ONCE IV; Start 02/10/25 at 15:35; Stop 02/10/25 at 15:35; Status DC Fentanyl Citrate 100 mcg STK-MED ONCE .ROUTE; Start 02/10/25 at 15:39; Stop 02/10/25 at 15:40; Status DC Midazolam HCl 2 mg STK-MED ONCE .ROUTE; Start 02/10/25 at 15:40; Stop 02/10/25 at 15:40; Status DC Bivalirudin 250 mg STK-MED ONCE IV; Start 02/10/25 at 16:15; Stop 02/10/25 at 16:15; Status DC Heparin Sodium (Porcine) 7,000 unit ONCE ONCE IV Last administered on 02/11/25at 05:46; Start 02/11/25 at 05:30; Stop 02/11/25 at 05:31; Status DC Heparin Sodium/ Dextrose 250 ml @ 0 mls/hr Q6H IV Last administered on 02/13/25at 13:01; Start 02/11/25 at 06:30; Stop 02/14/25 at 09:59; Status DC Clopidogrel Bisulfate 75 mg DAILY PO; Start 02/11/25 at 09:00; Stop 02/11/25 at 07:28; Status DC Insulin Glargine 15 units DAILY08 SQ Last administered on 02/12/25at 08:54; Start 02/11/25 at 08:00; Stop 02/13/25 at 05:24; Status DC Furosemide 20 mg DAILY PO Last administered on 02/13/25at 10:52; Start 02/11/25 at 09:00; Stop 02/14/25 at 09:59; Status DC Insulin Human Regular 3 unit TIDAC SQ Last administered on 02/12/25at 16:31; Start 02/12/25 at 07:30; Stop 02/14/25 at 09:59; Status DC Metoprolol Tartrate 12.5 mg BID PO Last administered on 02/14/25at 06:44; Start 02/12/25 at 09:00; Stop 02/14/25 at 09:59; Status DC Potassium Chloride 40 meq BID ONCE PO; Start 02/12/25 at 21:00; Stop 02/12/25 at 21:01; Status DC Magnesium Chloride 64 mg Q8H6 ONCE PO; Start 02/12/25 at 14:00; Stop 02/12/25 at 14:01; Status DC Heparin Sodium (Porcine) *calculation based on ACTUAL B... AD PRN IV Last administered on 02/12/25at 20:16; Start 02/12/25 at 21:00; Stop 02/14/25 at 09:59; Status DC Insulin Glargine 12 units DAILY08 SQ Last administered on 02/13/25at 10:51; Start 02/13/25 at 08:00; Stop 02/14/25 at 09:59; Status DC Cefazolin Sodium 2 gm ONCALL IVP Last administered on 02/14/25at 08:50; Start 02/13/25 at 20:00; Stop 02/14/25 at 18:51; Status DC Epinephrine HCl 10 mg/Sodium Chloride 250 ml @ 0 mls/hr AD PRN IV Last administered on 02/20/25at 17:32; Start 02/14/25 at 06:30; Stop 03/16/25 at 06:29 Norepinephrine Bitartrate 250 ml @ 0 mls/hr AD PRN IV Last administered on 02/17/25at 01:06; Start 02/14/25 at 06:30; Stop 03/16/25 at 06:29 Aminocaproic Acid 18635 mg/Sodium Chloride 480 ml @ 0 mls/hr AD PRN IV; Start 02/14/25 at 06:30; Stop 02/23/25 at 11:52; Status DC Epinephrine HCl 10 mg/Sodium Chloride 250 ml @ 0 mls/hr AD PRN IV; Start 02/14/25 at 07:00; Stop 02/14/25 at 06:51; Status DC Norepinephrine Bitartrate 250 ml @ 0 mls/hr AD PRN IV; Start 02/14/25 at 07:00; Stop 02/14/25 at 06:51; Status DC Aminocaproic Acid 76425 mg/Sodium Chloride 480 ml @ 0 mls/hr AD PRN IV; Start 02/14/25 at 07:00; Stop 02/14/25 at 06:51; Status DC Cefazolin Sodium 2 gm STK-MED ONCE .ROUTE; Start 02/14/25 at 06:53; Stop 02/14/25 at 06:53; Status DC Nitroglycerin/ Dextrose 1 ml @ As Directed STK-MED ONCE .ROUTE; Start 02/14/25 at 07:00; Stop 02/14/25 at 07:00; Status DC Cefazolin Sodium 1 gm STK-MED ONCE .ROUTE Last administered on 02/14/25at 10:09; Start 02/14/25 at 07:37; Stop 02/14/25 at 07:38; Status DC Heparin Sodium/ Sodium Chloride 500 ml @ As Directed STK-MED ONCE IV; Start 02/14/25 at 07:38; Stop 02/14/25 at 07:38; Status DC Papaverine HCl 60 mg STK-MED ONCE .ROUTE Last administered on 02/14/25at 10:10; Start 02/14/25 at 07:38; Stop 02/14/25 at 07:38; Status DC Midazolam HCl 2 mg STK-MED ONCE .ROUTE; Start 02/14/25 at 08:14; Stop 02/14/25 at 08:14; Status DC Ketamine HCl 500 mg STK-MED ONCE IJ; Start 02/14/25 at 08:16; Stop 02/14/25 at 08:16; Status DC Protamine Sulfate 250 mg STK-MED ONCE IV; Start 02/14/25 at 08:17; Stop 02/14/25 at 08:17; Status DC Lidocaine HCl 100 mg STK-MED ONCE .ROUTE; Start 02/14/25 at 08:17; Stop 02/14/25 at 08:17; Status DC Heparin Sodium (Porcine) 10,000 unit STK-MED ONCE .ROUTE; Start 02/14/25 at 08:17; Stop 02/14/25 at 08:17; Status DC Epinephrine HCl 1 mg STK-MED ONCE .ROUTE; Start 02/14/25 at 08:17; Stop 02/14/25 at 08:17; Status DC Sodium Bicarbonate 200 ml @ As Directed STK-MED ONCE .ROUTE; Start 02/14/25 at 08:17; Stop 02/14/25 at 08:17; Status DC Norepinephrine Bitartrate 4 mg STK-MED ONCE IV; Start 02/14/25 at 08:17; Stop 02/14/25 at 08:17; Status DC Propofol 200 mg STK-MED ONCE IV; Start 02/14/25 at 08:19; Stop 02/14/25 at 08:19; Status DC Fentanyl Citrate 1,000 mcg STK-MED ONCE IJ; Start 02/14/25 at 08:19; Stop 02/14/25 at 08:19; Status DC Midazolam HCl 2 mg STK-MED ONCE .ROUTE; Start 02/14/25 at 08:20; Stop 02/14/25 at 08:20; Status DC Rocuronium [place] 50 mg STK-MED ONCE .ROUTE; Start 02/14/25 at 08:20; Stop 02/14/25 at 08:20; Status DC Acetaminophen 1,000 mg Q6H6 IV Last administered on 02/15/25at 12:14; Start 02/14/25 at 14:00; Stop 02/15/25 at 13:59; Status DC Aspirin 81 mg ONCE ONCE NG Last administered on 02/14/25at 13:56; Start 02/14/25 at 14:00; Stop 02/14/25 at 14:01; Status DC Docusate Sodium 100 mg BID PO Last administered on 02/26/25at 09:50; Start 02/14/25 at 21:00; Stop 03/16/25 at 20:59 Lactulose 20 gm BID PRN PO; Start 02/14/25 at 10:00; Stop 03/16/25 at 09:59 Furosemide 20 mg Q12H PO Last administered on 02/16/25at 08:19; Start 02/16/25 at 09:00; Stop 02/16/25 at 10:21; Status DC Furosemide 20 mg Q12H IV Last administered on 02/15/25at 20:16; Start 02/15/25 at 09:00; Stop 02/16/25 at 08:59; Status DC Atorvastatin Calcium 40 mg HS PO Last administered on 02/25/25at 21:31; Start 02/14/25 at 21:00; Stop 03/16/25 at 20:59 Enoxaparin Sodium 30 mg DAILY SQ Last administered on 02/26/25at 09:51; Start 02/17/25 at 09:00; Stop 03/19/25 at 08:59 Metoprolol Tartrate 12.5 mg BID PO; Start 02/16/25 at 09:00; Stop 02/20/25 at 09:01; Status DC Magnesium Hydroxide 30 ml DAILY PRN PO; Start 02/14/25 at 10:00; Stop 03/16/25 at 09:59 Dexmedetomidine/ Sodium Chloride 400 mcg PROTOCOL IV; Start 02/14/25 at 10:00; Stop 02/15/25 at 09:59; Status DC Acetaminophen 650 mg Q6H PRN PO; Start 02/14/25 at 10:00; Stop 03/16/25 at 09:59 Heparin Sodium (Porcine) 10,000 unit STK-MED ONCE .ROUTE; Start 02/14/25 at 10:00; Stop 02/14/25 at 10:00; Status DC Sodium Chloride 1,000 ml @ 10 mls/hr ONCE IV; Start 02/14/25 at 10:00; Stop 02/15/25 at 09:59; Status DC Sodium Chloride 10 ml Q8H PRN IVP; Start 02/14/25 at 10:00; Stop 03/16/25 at 09:59 Morphine Sulfate 0.5 mg Q2H PRN IV; Start 02/14/25 at 10:00; Stop 02/15/25 at 09:59; Status DC Morphine Sulfate 1 mg Q2H PRN IV Last administered on 02/14/25at 14:23; Start 02/14/25 at 10:30; Stop 02/19/25 at 13:29; Status DC Acetaminophen 650 mg Q4H PRN RC; Start 02/14/25 at 10:00; Stop 02/23/25 at 11:52; Status DC Ondansetron HCl 4 mg Q6H PRN IV; Start 02/14/25 at 10:00; Stop 03/16/25 at 09:59 Sodium Chloride 500 ml @ 0 mls/hr AD IV; Start 02/14/25 at 10:00; Stop 03/16/25 at 09:59 Nitroglycerin/ Dextrose 0 ml @ 0 mls/hr AD IV; Start 02/14/25 at 10:00; Stop 02/17/25 at 09:59; Status DC Propofol 100 ml @ 0 mls/hr AD PRN IV; Start 02/14/25 at 10:00; Stop 02/18/25 at 09:59; Status DC Norepinephrine Bitartrate 8 mg/ Dextrose 250 ml @ 0 mls/hr AD PRN IV; Start 02/14/25 at 10:00; Stop 02/14/25 at 10:14; Status DC Epinephrine HCl 10 mg/Sodium Chloride 250 ml @ 0 mls/hr AD PRN IV; Start 02/14/25 at 10:00; Stop 02/14/25 at 10:14; Status DC Aminocaproic Acid 00236 mg/Sodium Chloride 310 ml @ 25 mls/hr AD IV; Start 02/14/25 at 10:00; Stop 02/14/25 at 10:19; Status DC Calcium Gluconate 1 gm/Sodium Chloride 60 ml @ 200 mls/hr AD PRN IV Last administered on 02/21/25at 08:36; Start 02/14/25 at 10:00; Stop 03/16/25 at 09:59 Magnesium Sulfate 50 ml @ 12.5 mls/hr AD PRN IV Last administered on 02/24/25at 08:17; Start 02/14/25 at 10:00; Stop 03/16/25 at 09:59 Potassium Chloride 100 ml @ 100 mls/hr AD PRN IV Last administered on 02/21/25at 16:43; Start 02/14/25 at 10:00; Stop 03/16/25 at 09:59 Potassium Phosphate 250 ml @ 42 mls/hr AD PRN IV; Start 02/14/25 at 10:00; Stop 03/16/25 at 09:59 Albumin Human 250 ml @ 0 mls/hr AD PRN IV Last administered on 02/14/25at 14:42; Start 02/14/25 at 10:00; Stop 02/14/25 at 14:42; Status DC Acetaminophen 650 mg Q4H PRN PO; Start 02/14/25 at 10:00; Stop 03/16/25 at 09:59 Insulin Human Regular 100 unit/ Sodium Chloride 100 ml @ 0 mls/hr AD IV Last administered on 02/15/25at 06:30; Start 02/14/25 at 10:00; Stop 02/16/25 at 09:59; Status DC Cefazolin Sodium 2 gm Q8H IVPB Last administered on 02/15/25at 06:25; Start 02/14/25 at 15:00; Stop 02/15/25 at 07:01; Status DC Tramadol HCl 25 mg Q6H PRN PO; Start 02/14/25 at 10:00; Stop 02/19/25 at 09:59; Status DC Tramadol HCl 50 mg Q6H PRN PO; Start 02/14/25 at 10:00; Stop 02/19/25 at 09:59; Status DC Famotidine 20 mg BID IV Last administered on 02/15/25at 20:15; Start 02/14/25 at 21:00; Stop 02/16/25 at 07:58; Status DC Sodium Bicarbonate 50 meq AD PRN IV Last administered on 02/16/25at 15:25; Start 02/14/25 at 10:00; Stop 02/17/25 at 09:59; Status DC Dextrose 50 ml AD PRN IV; Start 02/14/25 at 10:00; Stop 03/16/25 at 09:59 Glucagon 1 mg AD PRN IM; Start 02/14/25 at 10:00; Stop 03/16/25 at 09:59 Dobutamine HCl 250 mg STK-MED ONCE .ROUTE; Start 02/14/25 at 10:28; Stop 02/14/25 at 10:28; Status DC Sodium Bicarbonate 50 ml @ As Directed STK-MED ONCE .ROUTE; Start 02/14/25 at 10:52; Stop 02/14/25 at 10:52; Status DC Sodium Bicarbonate 200 ml @ As Directed STK-MED ONCE .ROUTE; Start 02/14/25 at 10:53; Stop 02/14/25 at 10:53; Status DC Vasopressin 20 units STK-MED ONCE .ROUTE; Start 02/14/25 at 11:51; Stop 02/14/25 at 11:51; Status DC Rocuronium [place] 50 mg STK-MED ONCE .ROUTE; Start 02/14/25 at 12:14; Stop 02/14/25 at 12:14; Status DC Sodium Bicarbonate 100 ml @ As Directed STK-MED ONCE .ROUTE; Start 02/14/25 at 12:16; Stop 02/14/25 at 12:16; Status DC Vasopressin 40 units/Sodium Chloride 40 ml @ 0 mls/hr PROTOCOL IV Last administered on 02/14/25at 22:11; Start 02/14/25 at 13:00; Stop 03/16/25 at 12:59 Albumin Human 250 ml @ 0 mls/hr AD IV Last administered on 02/18/25at 10:27; Start 02/14/25 at 15:30; Stop 02/18/25 at 10:40; Status DC Calcium Gluconate 2 gm/Sodium Chloride 100 ml @ 0 mls/hr ONCE ONCE IV Last administered on 02/14/25at 16:15; Start 02/14/25 at 16:30; Stop 02/14/25 at 16:31; Status DC Pharmacy Profile Note 1 each ONCE MISC; Start 02/14/25 at 18:00; Stop 02/14/25 at 18:27; Status DC Sodium Bicarbonate 25 meq/Dextrose 1,025 ml @ 0 mls/hr Q0M IV Last administered on 02/18/25at 13:03; Start 02/14/25 at 18:00; Stop 03/16/25 at 17:59 Famotidine 20 mg BID PO Last administered on 02/16/25at 20:03; Start 02/16/25 at 09:00; Stop 02/17/25 at 07:09; Status DC Insulin Human Regular INSULIN SLIDING SCAL... ACHS SQ Last administered on 02/26/25at 16:31; Start 02/16/25 at 11:30; Stop 03/18/25 at 11:29 Cefepime HCl 1 gm Q12H IVPB Last administered on 02/19/25at 22:54; Start 02/16/25 at 10:30; Stop 02/20/25 at 08:16; Status DC Furosemide 100 mg/ Sodium Chloride 100 ml @ 0 mls/hr PROTOCOL IV Last administered on 02/19/25at 11:35; Start 02/16/25 at 10:30; Stop 02/20/25 at 09:01; Status DC Vancomycin HCl 500 ml @ 250 mls/hr ONCE ONCE IV Last administered on 02/16/25at 11:39; Start 02/16/25 at 12:00; Stop 02/16/25 at 13:59; Status DC Sodium Chloride 4 ml STK-MED ONCE IH Last administered on 02/16/25at 10:53; Start 02/16/25 at 10:44; Stop 02/16/25 at 10:44; Status DC Sodium Chloride 4 ml STK-MED ONCE IH Last administered on 02/16/25at 14:33; Start 02/16/25 at 14:26; Stop 02/16/25 at 14:26; Status DC Sodium Chloride 4 ml STK-MED ONCE IH Last administered on 02/16/25at 19:16; Start 02/16/25 at 18:32; Stop 02/16/25 at 18:32; Status DC Famotidine 20 mg DAILY PO Last administered on 02/26/25at 09:50; Start 02/17/25 at 09:00; Stop 03/18/25 at 08:59 Latanoprost 1 DROP FOR EACH EYE HS OP Last administered on 02/25/25at 21:45; Start 02/17/25 at 21:00; Stop 03/19/25 at 20:59 Home Med (Brimonidine-Timolol 0.2%/0.5% EYE DROPS) DAILY OP Last administered on 02/26/25at 09:56; Start 02/18/25 at 09:00; Stop 03/20/25 at 08:59 Albumin Human 250 ml @ 0 mls/hr AD IV; Start 02/18/25 at 10:30; Stop 02/20/25 at 09:03; Status DC Vancomycin HCl 1 each AD IV; Start 02/18/25 at 11:00; Stop 02/24/25 at 12:15; Status DC Vancomycin HCl 250 ml @ 125 mls/hr Q12H IV Last administered on 02/19/25at 11:20; Start 02/18/25 at 11:30; Stop 02/21/25 at 05:33; Status DC Potassium Chloride 20 meq BID PO Last administered on 02/26/25at 09:55; Start 02/19/25 at 10:30; Stop 03/21/25 at 10:29 Dexmedetomidine/ Sodium Chloride 400 mcg STK-MED ONCE IV Last administered on 02/20/25at 07:08; Start 02/20/25 at 07:00; Stop 02/20/25 at 07:00; Status DC Dexmedetomidine/ Sodium Chloride 400 mcg PROTOCOL IV Last administered on 02/22/25at 05:51; Start 02/20/25 at 07:30; Stop 02/22/25 at 15:01; Status DC Carvedilol 3.125 mg BID PO; Start 02/20/25 at 21:00; Stop 02/24/25 at 06:13; Status DC Spironolactone 25 mg DAILY PO Last administered on 02/26/25at 09:55; Start 02/20/25 at 09:00; Stop 03/22/25 at 08:59 Empaglifozin 10 mg DAILY PO Last administered on 02/22/25at 09:38; Start 02/20/25 at 09:00; Stop 02/22/25 at 15:01; Status DC Albumin Human 50 ml @ 0 mls/hr Q12H9 IV Last administered on 02/24/25at 08:15; Start 02/20/25 at 09:00; Stop 02/24/25 at 08:42; Status DC Furosemide 20 mg Q12H IV Last administered on 02/25/25at 21:27; Start 02/20/25 at 09:00; Stop 02/26/25 at 09:43; Status DC Pharmacy Profile Note 1 each ONCE MISC; Start 02/20/25 at 11:30; Stop 02/20/25 at 11:19; Status DC Piperacillin Sod/ Tazobactam Sod 50 ml @ 12.5 mls/hr Q8H IVPB Last administered on 02/24/25at 11:45; Start 02/20/25 at 11:30; Stop 02/24/25 at 18:10; Status DC Vancomycin HCl 250 ml @ 125 mls/hr Q24H IV Last administered on 02/23/25at 06:28; Start 02/21/25 at 06:00; Stop 02/24/25 at 05:57; Status DC Insulin Glargine 10 units DAILY SQ Last administered on 02/22/25at 11:54; Start 02/21/25 at 09:00; Stop 02/22/25 at 19:17; Status DC Calcium Gluconate 1 gm STK-MED ONCE .ROUTE; Start 02/21/25 at 08:34; Stop 02/21/25 at 08:34; Status DC Etomidate 20 mg STK-MED ONCE .ROUTE; Start 02/21/25 at 12:27; Stop 02/21/25 at 12:28; Status DC Fentanyl Citrate 100 mcg STK-MED ONCE .ROUTE; Start 02/21/25 at 12:30; Stop 02/21/25 at 12:30; Status DC Rocuronium [place] 50 mg STK-MED ONCE .ROUTE; Start 02/21/25 at 12:30; Stop 02/21/25 at 12:30; Status DC Lidocaine HCl 20 ml STK-MED ONCE .ROUTE; Start 02/21/25 at 12:31; Stop 02/21/25 at 12:31; Status DC Cefazolin Sodium 1 gm STK-MED ONCE .ROUTE; Start 02/21/25 at 12:31; Stop 02/21/25 at 12:32; Status DC Bupivacaine HCl 2.5 mg STK-MED ONCE IJ; Start 02/21/25 at 12:32; Stop 02/21/25 at 12:32; Status DC Propofol 200 mg STK-MED ONCE IV; Start 02/21/25 at 12:35; Stop 02/21/25 at 12:35; Status DC Lidocaine HCl 100 mg STK-MED ONCE .ROUTE; Start 02/21/25 at 12:46; Stop 02/21/25 at 12:46; Status DC Cefazolin Sodium 1 gm STK-MED ONCE .ROUTE; Start 02/21/25 at 12:51; Stop 02/21/25 at 12:51; Status DC Rocuronium [place] 50 mg STK-MED ONCE .ROUTE; Start 02/21/25 at 13:03; Stop 02/21/25 at 13:03; Status DC Cefazolin Sodium 2 gm STK-MED ONCE IVPB Last administered on 02/21/25at 12:53; Start 02/21/25 at 12:53; Stop 02/21/25 at 14:14; Status DC Lidocaine HCl 20 ml STK-MED ONCE INJ Last administered on 02/21/25at 12:18; Start 02/21/25 at 12:18; Stop 02/21/25 at 14:14; Status DC Bupivacaine HCl 75 mg STK-MED ONCE IJ Last administered on 02/21/25at 12:18; Start 02/21/25 at 12:18; Stop 02/21/25 at 14:14; Status DC Insulin Glargine 12 units DAILY SQ Last administered on 02/26/25at 09:55; Start 02/23/25 at 09:00; Stop 03/25/25 at 08:59 Dexmedetomidine/ Sodium Chloride 400 mcg PROTOCOL IV Last administered on 02/23/25at 00:17; Start 02/23/25 at 00:00; Stop 03/25/25 at 00:00 Midodrine 10 mg TID PO Last administered on 02/26/25at 14:09; Start 02/23/25 at 14:00; Stop 03/25/25 at 13:59 Prednisone 20 mg DAILY PO Last administered on 02/26/25at 09:50; Start 02/23/25 at 12:30; Stop 02/26/25 at 13:00; Status DC Vancomycin HCl 250 ml @ 125 mls/hr Q24H IV Last administered on 02/24/25at 06:26; Start 02/24/25 at 06:30; Stop 02/24/25 at 12:15; Status DC Carvedilol 3.125 mg BID PO Last administered on 02/26/25at 09:50; Start 02/24/25 at 09:00; Stop 03/26/25 at 08:59 Empaglifozin 10 mg DAILY PO Last administered on 02/24/25at 08:47; Start 02/24/25 at 09:00; Stop 02/24/25 at 13:01; Status DC Piperacillin Sod/ Tazobactam Sod 50 ml @ 12.5 mls/hr Q8H6 IVPB Last administered on 02/26/25at 14:09; Start 02/24/25 at 22:00; Stop 03/06/25 at 21:59 Furosemide 40 mg Q12H IV Last administered on 02/26/25at 09:49; Start 02/26/25 at 10:00; Stop 03/28/25 at 09:59 EUGENE ZARATE MD Feb 26, 2025 19:43
--- NOTE | 2025-02-26 21:19 | PN ---
SUBJECTIVE: The patient is postop day #12 from an Impella supported coronary artery bypass grafting. His Impella has been removed and the patient has been transferred out of the ICU and has been doing well. He has started to ambulate, but is only ambulating to the door of his room. He is off of oxygen. He is sitting up in a bedside chair, visiting with his , and he has no complaints. OBJECTIVE: VITAL SIGNS: Temperature 97.5, blood pressure is 106/60, pulse 66, respirations 18, and oxygen saturation 97% on room air. HEENT: Normocephalic, atraumatic. Extraocular movements intact. His mentation is clear. CHEST: His sternal wound is healing well. His chest tubes are out. HEART: S1, S2 and regular. LUNGS: Unlabored at rest off of oxygen. ABDOMEN: Reveals mild obesity with positive bowel sounds. EXTREMITIES: He has JIAN stockings on his lower extremities. ASSESSMENT AND PLAN: * Status post coronary artery bypass grafting with low ejection fraction. Continue aspirin, Coreg, Aldactone, Lasix, and now that he is eating whole meals, we would start Jardiance. Continue cardiac rehab and plan to transfer to a fpc facility. * Hypercholesterolemia. Lipitor at bedtime and low cholesterol, cardiac diet. * Deep venous thrombosis prophylaxis: Lovenox 30 mg subcutaneous daily. TID: [id number] RECEIPT: [id number]
[2025-02-27 03:40] VITALS: BP 102/56; PULSE 67; RESP 20; TEMP 98.4
[2025-02-27 05:34] LABS: IMMATURE GRANULOCYTE ABSOLUTE 0.28 K/uL (0-1); NUCLEATED RED BLOOD CELLS 0.1 % (0.0-0.19); PLATELET COUNT (AUTO) 470 K/uL (130-400); RED BLOOD CELL COUNT(AUTO) 3.30 MIL/uL (4.50-6.20); RED CELL DISTRIBUTION WIDTH 16.0 % (11.0-15.5); WHITE BLOOD COUNT (AUTO) 16.9 K/uL (4.8-10.8)
[2025-02-27 05:42] LABS: CREATININE 1.1 mg/dL (0.5-1.3); GLOMERULAR FILTR. RATE CALC 70.0 mL/min (>90); GLUCOSE,RANDOM 146.0 mg/dL (70-105); SODIUM SERUM 138.0 mmol/L (136-145); UREA NITROGEN, BLOOD 22.0 mg/dL (7-18)
--- NOTE | 2025-02-27 05:58 | HMCIMG ---
EXAM: CR Chest, 2 View. CLINICAL HISTORY: post thora COMPARISON: 02/25/2025 FINDINGS: LUNGS: Interval reduction in the small left pleural effusion with adjacent lung atelectasis. The right lung remains clear. PLEURAL SPACES: No pneumothorax. MEDIASTINUM: The cardiac size is stable. Prior median sternotomy status. BONES: No aggressive appearing osseous lesion seen. IMPRESSION: Interval reduction in the small left pleural effusion with adjacent lung atelectasis. /[place]
[2025-02-27 08:00] VITALS: BP 93/49; PULSE 66; RESP 16; TEMP 97.5; O2SAT 95
[2025-02-27 08:11] LABS: % IRON SATURATION 39.6 % (30-44); IRON, SERUM 61.0 mcg/dL (65-175)
--- NOTE | 2025-02-27 08:44 | PN ---
1. Non-STEMI. 2. Status post 3v CABG ( [id number] ) with left atrial appendage clipping with insertion of IABP and Impella 02/14/2025. 3. Ischemic cardiomyopathy. 4. Postoperative blood loss anemia. 5. Type 2 diabetes mellitus. 6. History of CVA. 7. Acute systolic heart failure with anterior infarct and 25-30% ejection fraction Patient is in good spirits, very enthused about going to rehab today. Denies any shortness of breath or chest pain, states he has been ambulating some. Chest is clear with nonlabored respiration, normal S1 and S2, no murmur, regular rhythm. No obvious neurologic deficits. Cognition intact and patient is conversant. Impression and plan: Very difficult hospitalization with heart failure and myocardial infarct, status post coronary bypass and atrial appendage clip. Approved from cardiology perspective for discharge to rehab. Vitals/Labs Vital Signs Date Time Temp Pulse Resp B/P (MAP) Pulse Ox O2 Delivery O2 Flow Rate FiO2 02/27/25 08:00 97.5 66 16 93/49 96 Room Air 21 02/26/25 20:00 0 Laboratory Tests 02/27/25 05:22 Medications Current Medications Sodium Chloride 1,000 ml @ 0 mls/hr ONCE ONCE IV; Start 02/10/25 at 01:00; Stop 02/10/25 at 00:46; Status DC Sodium Chloride 500 ml @ 0 mls/hr ONCE ONCE IV Last administered on 02/10/25at 00:53; Start 02/10/25 at 01:00; Stop 02/10/25 at 01:01; Status DC Insulin Human Regular 5 unit ONCE ONCE IV Last administered on 02/10/25at 01:30; Start 02/10/25 at 01:30; Stop 02/10/25 at 01:31; Status DC Aspirin 325 mg ONCE ONCE PO Last administered on 02/10/25at 02:32; Start 02/10/25 at 02:30; Stop 02/10/25 at 02:31; Status DC Heparin Sodium/ Dextrose 250 ml @ 0 mls/hr PROTOCOL IV Last administered on 02/10/25at 03:00; Start 02/10/25 at 03:00; Stop 02/10/25 at 17:22; Status DC Heparin Sodium (Porcine) 7,000 unit ONCE ONCE SQ Last administered on 02/10/25at 02:55; Start 02/10/25 at 03:00; Stop 02/10/25 at 03:01; Status DC Acetaminophen 650 mg Q6H PRN PO Last administered on 02/12/25at 17:13; Start 02/10/25 at 05:00; Stop 02/14/25 at 10:17; Status DC Acetaminophen 650 mg Q4H PRN PO; Start 02/10/25 at 05:00; Stop 02/14/25 at 10:05; Status DC Ondansetron HCl 4 mg Q6H PRN IV; Start 02/10/25 at 05:00; Stop 02/14/25 at 10:17; Status DC Nitroglycerin 0.4 mg PROTOCOL PRN SL; Start 02/10/25 at 05:00; Stop 02/14/25 at 09:59; Status DC Famotidine 20 mg DAILY PO Last administered on 02/13/25at 10:53; Start 02/10/25 at 09:00; Stop 02/14/25 at 09:59; Status DC Sodium Chloride 1,000 ml @ 100 mls/hr Q10H IV Last administered on 02/10/25at 14:20; Start 02/10/25 at 05:00; Stop 02/10/25 at 17:22; Status DC Insulin Human Regular INSULIN SLIDING SCAL... Q4H SQ Last administered on 02/10/25at 09:15; Start 02/10/25 at 05:00; Stop 02/10/25 at 11:10; Status DC Dextrose 50 ml AD PRN IV; Start 02/10/25 at 05:00; Stop 02/14/25 at 10:17; Status DC Glucagon 1 mg AD PRN IM; Start 02/10/25 at 05:00; Stop 02/14/25 at 10:17; Status DC Magnesium Sulfate 50 ml @ 0 mls/hr PROTOCOL PRN IV Last administered on 02/12/25at 07:13; Start 02/10/25 at 05:00; Stop 02/14/25 at 10:17; Status DC Potassium Chloride 100 ml @ 100 mls/hr AD PRN IV Last administered on 02/15/25at 05:43; Start 02/10/25 at 05:00; Stop 02/15/25 at 06:27; Status DC Potassium Chloride 20 meq AD PRN PO Last administered on 02/25/25at 09:30; Start 02/10/25 at 05:00; Stop 03/12/25 at 04:59 Potassium Chloride 20 meq AD PRN PO Last administered on 02/18/25at 20:18; Start 02/10/25 at 05:00; Stop 03/12/25 at 04:59 Aspirin 81 mg DAILY PO Last administered on 02/26/25at 09:50; Start 02/10/25 at 09:00; Stop 03/12/25 at 08:59 Insulin Human Regular INSULIN SLIDING SCAL... Q6H6 SQ Last administered on 02/11/25at 17:29; Start 02/10/25 at 12:00; Stop 02/14/25 at 09:59; Status DC Clopidogrel Bisulfate 600 mg ONCE PO Last administered on 02/10/25at 14:19; Start 02/10/25 at 14:00; Stop 02/10/25 at 17:22; Status DC Aspirin 325 mg ONCE PO Last administered on 02/10/25at 14:32; Start 02/10/25 at 14:30; Stop 02/10/25 at 17:22; Status DC Sacubitril/ Valsartan 0.5 each BID PO Last administered on 02/13/25at 21:11; Start 02/10/25 at 21:00; Stop 02/14/25 at 09:59; Status DC Empaglifozin 10 mg DAILY PO Last administered on 02/13/25at 10:52; Start 02/10/25 at 14:30; Stop 02/14/25 at 09:59; Status DC Spironolactone 25 mg DAILY PO Last administered on 02/13/25at 10:52; Start 02/10/25 at 14:30; Stop 02/14/25 at 09:59; Status DC Furosemide 20 mg ONCE IV Last administered on 02/10/25at 17:00; Start 02/10/25 at 17:00; Stop 02/10/25 at 21:00; Status DC Furosemide 20 mg ONCE IV; Start 02/11/25 at 09:00; Stop 02/11/25 at 07:43; Status DC Lidocaine HCl 20 ml STK-MED ONCE .ROUTE; Start 02/10/25 at 15:22; Stop 02/10/25 at 15:23; Status DC Iohexol 35,000 mg STK-MED ONCE IV; Start 02/10/25 at 15:22; Stop 02/10/25 at 15:23; Status DC Iohexol 50 ml STK-MED ONCE IV; Start 02/10/25 at 15:22; Stop 02/10/25 at 15:23; Status DC Heparin Sodium (Porcine) 10,000 unit STK-MED ONCE .ROUTE; Start 02/10/25 at 15:23; Stop 02/10/25 at 15:23; Status DC Heparin Sodium/ Sodium Chloride 1,000 ml @ As Directed STK-MED ONCE IV; Start 02/10/25 at 15:23; Stop 02/10/25 at 15:23; Status DC Nitroglycerin 50 mg STK-MED ONCE .ROUTE; Start 02/10/25 at 15:23; Stop 02/10/25 at 15:23; Status DC Heparin Sodium/ Sodium Chloride 500 ml @ As Directed STK-MED ONCE IV; Start 02/10/25 at 15:35; Stop 02/10/25 at 15:35; Status DC Fentanyl Citrate 100 mcg STK-MED ONCE .ROUTE; Start 02/10/25 at 15:39; Stop 02/10/25 at 15:40; Status DC Midazolam HCl 2 mg STK-MED ONCE .ROUTE; Start 02/10/25 at 15:40; Stop 02/10/25 at 15:40; Status DC Bivalirudin 250 mg STK-MED ONCE IV; Start 02/10/25 at 16:15; Stop 02/10/25 at 16:15; Status DC Heparin Sodium (Porcine) 7,000 unit ONCE ONCE IV Last administered on 02/11/25at 05:46; Start 02/11/25 at 05:30; Stop 02/11/25 at 05:31; Status DC Heparin Sodium/ Dextrose 250 ml @ 0 mls/hr Q6H IV Last administered on 02/13/25at 13:01; Start 02/11/25 at 06:30; Stop 02/14/25 at 09:59; Status DC Clopidogrel Bisulfate 75 mg DAILY PO; Start 02/11/25 at 09:00; Stop 02/11/25 at 07:28; Status DC Insulin Glargine 15 units DAILY08 SQ Last administered on 02/12/25at 08:54; Start 02/11/25 at 08:00; Stop 02/13/25 at 05:24; Status DC Furosemide 20 mg DAILY PO Last administered on 02/13/25at 10:52; Start 02/11/25 at 09:00; Stop 02/14/25 at 09:59; Status DC Insulin Human Regular 3 unit TIDAC SQ Last administered on 02/12/25at 16:31; Start 02/12/25 at 07:30; Stop 02/14/25 at 09:59; Status DC Metoprolol Tartrate 12.5 mg BID PO Last administered on 02/14/25at 06:44; Start 02/12/25 at 09:00; Stop 02/14/25 at 09:59; Status DC Potassium Chloride 40 meq BID ONCE PO; Start 02/12/25 at 21:00; Stop 02/12/25 at 21:01; Status DC Magnesium Chloride 64 mg Q8H6 ONCE PO; Start 02/12/25 at 14:00; Stop 02/12/25 at 14:01; Status DC Heparin Sodium (Porcine) *calculation based on ACTUAL B... AD PRN IV Last administered on 02/12/25at 20:16; Start 02/12/25 at 21:00; Stop 02/14/25 at 09:59; Status DC Insulin Glargine 12 units DAILY08 SQ Last administered on 02/13/25at 10:51; Start 02/13/25 at 08:00; Stop 02/14/25 at 09:59; Status DC Cefazolin Sodium 2 gm ONCALL IVP Last administered on 02/14/25at 08:50; Start 02/13/25 at 20:00; Stop 02/14/25 at 18:51; Status DC Epinephrine HCl 10 mg/Sodium Chloride 250 ml @ 0 mls/hr AD PRN IV Last administered on 02/20/25at 17:32; Start 02/14/25 at 06:30; Stop 03/16/25 at 06:29 Norepinephrine Bitartrate 250 ml @ 0 mls/hr AD PRN IV Last administered on 02/17/25at 01:06; Start 02/14/25 at 06:30; Stop 03/16/25 at 06:29 Aminocaproic Acid 67860 mg/Sodium Chloride 480 ml @ 0 mls/hr AD PRN IV; Start 02/14/25 at 06:30; Stop 02/23/25 at 11:52; Status DC Epinephrine HCl 10 mg/Sodium Chloride 250 ml @ 0 mls/hr AD PRN IV; Start 02/14/25 at 07:00; Stop 02/14/25 at 06:51; Status DC Norepinephrine Bitartrate 250 ml @ 0 mls/hr AD PRN IV; Start 02/14/25 at 07:00; Stop 02/14/25 at 06:51; Status DC Aminocaproic Acid 69206 mg/Sodium Chloride 480 ml @ 0 mls/hr AD PRN IV; Start 02/14/25 at 07:00; Stop 02/14/25 at 06:51; Status DC Cefazolin Sodium 2 gm STK-MED ONCE .ROUTE; Start 02/14/25 at 06:53; Stop 02/14/25 at 06:53; Status DC Nitroglycerin/ Dextrose 1 ml @ As Directed STK-MED ONCE .ROUTE; Start 02/14/25 at 07:00; Stop 02/14/25 at 07:00; Status DC Cefazolin Sodium 1 gm STK-MED ONCE .ROUTE Last administered on 02/14/25at 10:09; Start 02/14/25 at 07:37; Stop 02/14/25 at 07:38; Status DC Heparin Sodium/ Sodium Chloride 500 ml @ As Directed STK-MED ONCE IV; Start 02/14/25 at 07:38; Stop 02/14/25 at 07:38; Status DC Papaverine HCl 60 mg STK-MED ONCE .ROUTE Last administered on 02/14/25at 10:10; Start 02/14/25 at 07:38; Stop 02/14/25 at 07:38; Status DC Midazolam HCl 2 mg STK-MED ONCE .ROUTE; Start 02/14/25 at 08:14; Stop 02/14/25 at 08:14; Status DC Ketamine HCl 500 mg STK-MED ONCE IJ; Start 02/14/25 at 08:16; Stop 02/14/25 at 08:16; Status DC Protamine Sulfate 250 mg STK-MED ONCE IV; Start 02/14/25 at 08:17; Stop 02/14/25 at 08:17; Status DC Lidocaine HCl 100 mg STK-MED ONCE .ROUTE; Start 02/14/25 at 08:17; Stop 02/14/25 at 08:17; Status DC Heparin Sodium (Porcine) 10,000 unit STK-MED ONCE .ROUTE; Start 02/14/25 at 08:17; Stop 02/14/25 at 08:17; Status DC Epinephrine HCl 1 mg STK-MED ONCE .ROUTE; Start 02/14/25 at 08:17; Stop 02/14/25 at 08:17; Status DC Sodium Bicarbonate 200 ml @ As Directed STK-MED ONCE .ROUTE; Start 02/14/25 at 08:17; Stop 02/14/25 at 08:17; Status DC Norepinephrine Bitartrate 4 mg STK-MED ONCE IV; Start 02/14/25 at 08:17; Stop 02/14/25 at 08:17; Status DC Propofol 200 mg STK-MED ONCE IV; Start 02/14/25 at 08:19; Stop 02/14/25 at 08:19; Status DC Fentanyl Citrate 1,000 mcg STK-MED ONCE IJ; Start 02/14/25 at 08:19; Stop 02/14/25 at 08:19; Status DC Midazolam HCl 2 mg STK-MED ONCE .ROUTE; Start 02/14/25 at 08:20; Stop 02/14/25 at 08:20; Status DC Rocuronium [place] 50 mg STK-MED ONCE .ROUTE; Start 02/14/25 at 08:20; Stop 02/14/25 at 08:20; Status DC Acetaminophen 1,000 mg Q6H6 IV Last administered on 02/15/25at 12:14; Start 02/14/25 at 14:00; Stop 02/15/25 at 13:59; Status DC Aspirin 81 mg ONCE ONCE NG Last administered on 02/14/25at 13:56; Start 02/14/25 at 14:00; Stop 02/14/25 at 14:01; Status DC Docusate Sodium 100 mg BID PO Last administered on 02/26/25at 20:22; Start 02/14/25 at 21:00; Stop 03/16/25 at 20:59 Lactulose 20 gm BID PRN PO; Start 02/14/25 at 10:00; Stop 03/16/25 at 09:59 Furosemide 20 mg Q12H PO Last administered on 02/16/25at 08:19; Start 02/16/25 at 09:00; Stop 02/16/25 at 10:21; Status DC Furosemide 20 mg Q12H IV Last administered on 02/15/25at 20:16; Start 02/15/25 at 09:00; Stop 02/16/25 at 08:59; Status DC Atorvastatin Calcium 40 mg HS PO Last administered on 02/26/25at 20:22; Start 02/14/25 at 21:00; Stop 03/16/25 at 20:59 Enoxaparin Sodium 30 mg DAILY SQ Last administered on 02/26/25at 09:51; Start 02/17/25 at 09:00; Stop 03/19/25 at 08:59 Metoprolol Tartrate 12.5 mg BID PO; Start 02/16/25 at 09:00; Stop 02/20/25 at 09:01; Status DC Magnesium Hydroxide 30 ml DAILY PRN PO; Start 02/14/25 at 10:00; Stop 03/16/25 at 09:59 Dexmedetomidine/ Sodium Chloride 400 mcg PROTOCOL IV; Start 02/14/25 at 10:00; Stop 02/15/25 at 09:59; Status DC Acetaminophen 650 mg Q6H PRN PO; Start 02/14/25 at 10:00; Stop 03/16/25 at 09:59 Heparin Sodium (Porcine) 10,000 unit STK-MED ONCE .ROUTE; Start 02/14/25 at 10:00; Stop 02/14/25 at 10:00; Status DC Sodium Chloride 1,000 ml @ 10 mls/hr ONCE IV; Start 02/14/25 at 10:00; Stop 02/15/25 at 09:59; Status DC Sodium Chloride 10 ml Q8H PRN IVP; Start 02/14/25 at 10:00; Stop 03/16/25 at 09:59 Morphine Sulfate 0.5 mg Q2H PRN IV; Start 02/14/25 at 10:00; Stop 02/15/25 at 09:59; Status DC Morphine Sulfate 1 mg Q2H PRN IV Last administered on 02/14/25at 14:23; Start 02/14/25 at 10:30; Stop 02/19/25 at 13:29; Status DC Acetaminophen 650 mg Q4H PRN RC; Start 02/14/25 at 10:00; Stop 02/23/25 at 11:52; Status DC Ondansetron HCl 4 mg Q6H PRN IV; Start 02/14/25 at 10:00; Stop 03/16/25 at 09:59 Sodium Chloride 500 ml @ 0 mls/hr AD IV; Start 02/14/25 at 10:00; Stop 03/16/25 at 09:59 Nitroglycerin/ Dextrose 0 ml @ 0 mls/hr AD IV; Start 02/14/25 at 10:00; Stop 02/17/25 at 09:59; Status DC Propofol 100 ml @ 0 mls/hr AD PRN IV; Start 02/14/25 at 10:00; Stop 02/18/25 at 09:59; Status DC Norepinephrine Bitartrate 8 mg/ Dextrose 250 ml @ 0 mls/hr AD PRN IV; Start 02/14/25 at 10:00; Stop 02/14/25 at 10:14; Status DC Epinephrine HCl 10 mg/Sodium Chloride 250 ml @ 0 mls/hr AD PRN IV; Start 02/14/25 at 10:00; Stop 02/14/25 at 10:14; Status DC Aminocaproic Acid 14674 mg/Sodium Chloride 310 ml @ 25 mls/hr AD IV; Start 02/14/25 at 10:00; Stop 02/14/25 at 10:19; Status DC Calcium Gluconate 1 gm/Sodium Chloride 60 ml @ 200 mls/hr AD PRN IV Last administered on 02/21/25at 08:36; Start 02/14/25 at 10:00; Stop 03/16/25 at 09:59 Magnesium Sulfate 50 ml @ 12.5 mls/hr AD PRN IV Last administered on 02/24/25at 08:17; Start 02/14/25 at 10:00; Stop 03/16/25 at 09:59 Potassium Chloride 100 ml @ 100 mls/hr AD PRN IV Last administered on 02/21/25at 16:43; Start 02/14/25 at 10:00; Stop 03/16/25 at 09:59 Potassium Phosphate 250 ml @ 42 mls/hr AD PRN IV; Start 02/14/25 at 10:00; Stop 03/16/25 at 09:59 Albumin Human 250 ml @ 0 mls/hr AD PRN IV Last administered on 02/14/25at 14:42; Start 02/14/25 at 10:00; Stop 02/14/25 at 14:42; Status DC Acetaminophen 650 mg Q4H PRN PO; Start 02/14/25 at 10:00; Stop 03/16/25 at 09:59 Insulin Human Regular 100 unit/ Sodium Chloride 100 ml @ 0 mls/hr AD IV Last administered on 02/15/25at 06:30; Start 02/14/25 at 10:00; Stop 02/16/25 at 09:59; Status DC Cefazolin Sodium 2 gm Q8H IVPB Last administered on 02/15/25at 06:25; Start 02/14/25 at 15:00; Stop 02/15/25 at 07:01; Status DC Tramadol HCl 25 mg Q6H PRN PO; Start 02/14/25 at 10:00; Stop 02/19/25 at 09:59; Status DC Tramadol HCl 50 mg Q6H PRN PO; Start 02/14/25 at 10:00; Stop 02/19/25 at 09:59; Status DC Famotidine 20 mg BID IV Last administered on 02/15/25at 20:15; Start 02/14/25 at 21:00; Stop 02/16/25 at 07:58; Status DC Sodium Bicarbonate 50 meq AD PRN IV Last administered on 02/16/25at 15:25; Start 02/14/25 at 10:00; Stop 02/17/25 at 09:59; Status DC Dextrose 50 ml AD PRN IV; Start 02/14/25 at 10:00; Stop 03/16/25 at 09:59 Glucagon 1 mg AD PRN IM; Start 02/14/25 at 10:00; Stop 03/16/25 at 09:59 Dobutamine HCl 250 mg STK-MED ONCE .ROUTE; Start 02/14/25 at 10:28; Stop 02/14/25 at 10:28; Status DC Sodium Bicarbonate 50 ml @ As Directed STK-MED ONCE .ROUTE; Start 02/14/25 at 10:52; Stop 02/14/25 at 10:52; Status DC Sodium Bicarbonate 200 ml @ As Directed STK-MED ONCE .ROUTE; Start 02/14/25 at 10:53; Stop 02/14/25 at 10:53; Status DC Vasopressin 20 units STK-MED ONCE .ROUTE; Start 02/14/25 at 11:51; Stop 02/14/25 at 11:51; Status DC Rocuronium [place] 50 mg STK-MED ONCE .ROUTE; Start 02/14/25 at 12:14; Stop 02/14/25 at 12:14; Status DC Sodium Bicarbonate 100 ml @ As Directed STK-MED ONCE .ROUTE; Start 02/14/25 at 12:16; Stop 02/14/25 at 12:16; Status DC Vasopressin 40 units/Sodium Chloride 40 ml @ 0 mls/hr PROTOCOL IV Last administered on 02/14/25at 22:11; Start 02/14/25 at 13:00; Stop 03/16/25 at 12:59 Albumin Human 250 ml @ 0 mls/hr AD IV Last administered on 02/18/25at 10:27; Start 02/14/25 at 15:30; Stop 02/18/25 at 10:40; Status DC Calcium Gluconate 2 gm/Sodium Chloride 100 ml @ 0 mls/hr ONCE ONCE IV Last administered on 02/14/25at 16:15; Start 02/14/25 at 16:30; Stop 02/14/25 at 16:31; Status DC Pharmacy Profile Note 1 each ONCE MISC; Start 02/14/25 at 18:00; Stop 02/14/25 at 18:27; Status DC Sodium Bicarbonate 25 meq/Dextrose 1,025 ml @ 0 mls/hr Q0M IV Last administered on 02/18/25at 13:03; Start 02/14/25 at 18:00; Stop 03/16/25 at 17:59 Famotidine 20 mg BID PO Last administered on 02/16/25at 20:03; Start 02/16/25 at 09:00; Stop 02/17/25 at 07:09; Status DC Insulin Human Regular INSULIN SLIDING SCAL... ACHS SQ Last administered on 02/26/25at 20:55; Start 02/16/25 at 11:30; Stop 03/18/25 at 11:29 Cefepime HCl 1 gm Q12H IVPB Last administered on 02/19/25at 22:54; Start 02/16/25 at 10:30; Stop 02/20/25 at 08:16; Status DC Furosemide 100 mg/ Sodium Chloride 100 ml @ 0 mls/hr PROTOCOL IV Last administered on 02/19/25at 11:35; Start 02/16/25 at 10:30; Stop 02/20/25 at 09:01; Status DC Vancomycin HCl 500 ml @ 250 mls/hr ONCE ONCE IV Last administered on 02/16/25at 11:39; Start 02/16/25 at 12:00; Stop 02/16/25 at 13:59; Status DC Sodium Chloride 4 ml STK-MED ONCE IH Last administered on 02/16/25at 10:53; Start 02/16/25 at 10:44; Stop 02/16/25 at 10:44; Status DC Sodium Chloride 4 ml STK-MED ONCE IH Last administered on 02/16/25at 14:33; Start 02/16/25 at 14:26; Stop 02/16/25 at 14:26; Status DC Sodium Chloride 4 ml STK-MED ONCE IH Last administered on 02/16/25at 19:16; Start 02/16/25 at 18:32; Stop 02/16/25 at 18:32; Status DC Famotidine 20 mg DAILY PO Last administered on 02/26/25at 09:50; Start 02/17/25 at 09:00; Stop 03/18/25 at 08:59 Latanoprost 1 DROP FOR EACH EYE HS OP Last administered on 02/26/25at 20:37; Start 02/17/25 at 21:00; Stop 03/19/25 at 20:59 Home Med (Brimonidine-Timolol 0.2%/0.5% EYE DROPS) DAILY OP Last administered on 02/26/25at 09:56; Start 02/18/25 at 09:00; Stop 03/20/25 at 08:59 Albumin Human 250 ml @ 0 mls/hr AD IV; Start 02/18/25 at 10:30; Stop 02/20/25 at 09:03; Status DC Vancomycin HCl 1 each AD IV; Start 02/18/25 at 11:00; Stop 02/24/25 at 12:15; Status DC Vancomycin HCl 250 ml @ 125 mls/hr Q12H IV Last administered on 02/19/25at 11:20; Start 02/18/25 at 11:30; Stop 02/21/25 at 05:33; Status DC Potassium Chloride 20 meq BID PO Last administered on 02/26/25at 20:22; Start 02/19/25 at 10:30; Stop 03/21/25 at 10:29 Dexmedetomidine/ Sodium Chloride 400 mcg STK-MED ONCE IV Last administered on 02/20/25at 07:08; Start 02/20/25 at 07:00; Stop 02/20/25 at 07:00; Status DC Dexmedetomidine/ Sodium Chloride 400 mcg PROTOCOL IV Last administered on 02/22/25at 05:51; Start 02/20/25 at 07:30; Stop 02/22/25 at 15:01; Status DC Carvedilol 3.125 mg BID PO; Start 02/20/25 at 21:00; Stop 02/24/25 at 06:13; Status DC Spironolactone 25 mg DAILY PO Last administered on 02/26/25at 09:55; Start 02/20/25 at 09:00; Stop 03/22/25 at 08:59 Empaglifozin 10 mg DAILY PO Last administered on 02/22/25at 09:38; Start 02/20/25 at 09:00; Stop 02/22/25 at 15:01; Status DC Albumin Human 50 ml @ 0 mls/hr Q12H9 IV Last administered on 02/24/25at 08:15; Start 02/20/25 at 09:00; Stop 02/24/25 at 08:42; Status DC Furosemide 20 mg Q12H IV Last administered on 02/25/25at 21:27; Start 02/20/25 at 09:00; Stop 02/26/25 at 09:43; Status DC Pharmacy Profile Note 1 each ONCE MISC; Start 02/20/25 at 11:30; Stop 02/20/25 at 11:19; Status DC Piperacillin Sod/ Tazobactam Sod 50 ml @ 12.5 mls/hr Q8H IVPB Last administered on 02/24/25at 11:45; Start 02/20/25 at 11:30; Stop 02/24/25 at 18:10; Status DC Vancomycin HCl 250 ml @ 125 mls/hr Q24H IV Last administered on 02/23/25at 06:28; Start 02/21/25 at 06:00; Stop 02/24/25 at 05:57; Status DC Insulin Glargine 10 units DAILY SQ Last administered on 02/22/25at 11:54; Start 02/21/25 at 09:00; Stop 02/22/25 at 19:17; Status DC Calcium Gluconate 1 gm STK-MED ONCE .ROUTE; Start 02/21/25 at 08:34; Stop 02/21/25 at 08:34; Status DC Etomidate 20 mg STK-MED ONCE .ROUTE; Start 02/21/25 at 12:27; Stop 02/21/25 at 12:28; Status DC Fentanyl Citrate 100 mcg STK-MED ONCE .ROUTE; Start 02/21/25 at 12:30; Stop 02/21/25 at 12:30; Status DC Rocuronium [place] 50 mg STK-MED ONCE .ROUTE; Start 02/21/25 at 12:30; Stop 02/21/25 at 12:30; Status DC Lidocaine HCl 20 ml STK-MED ONCE .ROUTE; Start 02/21/25 at 12:31; Stop 02/21/25 at 12:31; Status DC Cefazolin Sodium 1 gm STK-MED ONCE .ROUTE; Start 02/21/25 at 12:31; Stop 02/21/25 at 12:32; Status DC Bupivacaine HCl 2.5 mg STK-MED ONCE IJ; Start 02/21/25 at 12:32; Stop 02/21/25 at 12:32; Status DC Propofol 200 mg STK-MED ONCE IV; Start 02/21/25 at 12:35; Stop 02/21/25 at 12:35; Status DC Lidocaine HCl 100 mg STK-MED ONCE .ROUTE; Start 02/21/25 at 12:46; Stop 02/21/25 at 12:46; Status DC Cefazolin Sodium 1 gm STK-MED ONCE .ROUTE; Start 02/21/25 at 12:51; Stop 02/21/25 at 12:51; Status DC Rocuronium [place] 50 mg STK-MED ONCE .ROUTE; Start 02/21/25 at 13:03; Stop 02/21/25 at 13:03; Status DC Cefazolin Sodium 2 gm STK-MED ONCE IVPB Last administered on 02/21/25at 12:53; Start 02/21/25 at 12:53; Stop 02/21/25 at 14:14; Status DC Lidocaine HCl 20 ml STK-MED ONCE INJ Last administered on 02/21/25at 12:18; Start 02/21/25 at 12:18; Stop 02/21/25 at 14:14; Status DC Bupivacaine HCl 75 mg STK-MED ONCE IJ Last administered on 02/21/25at 12:18; Start 02/21/25 at 12:18; Stop 02/21/25 at 14:14; Status DC Insulin Glargine 12 units DAILY SQ Last administered on 02/26/25at 09:55; Start 02/23/25 at 09:00; Stop 03/25/25 at 08:59 Dexmedetomidine/ Sodium Chloride 400 mcg PROTOCOL IV Last administered on 02/23/25at 00:17; Start 02/23/25 at 00:00; Stop 03/25/25 at 00:00 Midodrine 10 mg TID PO Last administered on 02/26/25at 20:22; Start 02/23/25 at 14:00; Stop 03/25/25 at 13:59 Prednisone 20 mg DAILY PO Last administered on 02/26/25at 09:50; Start 02/23/25 at 12:30; Stop 02/26/25 at 13:00; Status DC Vancomycin HCl 250 ml @ 125 mls/hr Q24H IV Last administered on 02/24/25at 06:26; Start 02/24/25 at 06:30; Stop 02/24/25 at 12:15; Status DC Carvedilol 3.125 mg BID PO Last administered on 02/26/25at 20:23; Start 02/24/25 at 09:00; Stop 03/26/25 at 08:59 Empaglifozin 10 mg DAILY PO Last administered on 02/24/25at 08:47; Start 02/24/25 at 09:00; Stop 02/24/25 at 13:01; Status DC Piperacillin Sod/ Tazobactam Sod 50 ml @ 12.5 mls/hr Q8H6 IVPB Last administered on 02/27/25at 05:23; Start 02/24/25 at 22:00; Stop 03/06/25 at 21:59 Furosemide 40 mg Q12H IV Last administered on 02/26/25at 20:23; Start 02/26/25 at 10:00; Stop 03/28/25 at 09:59 KIRSTIE KEITH MD Feb 27, 2025 08:44
--- NOTE | 2025-02-27 10:02 | PN ---
INFECTIOUS DISEASE FOLLOWUP NOTE DATE OF SERVICE: 02/26/2025. SUBJECTIVE: The patient is seen and examined at bedside. The patient has no fever, no chills. The patient underwent thoracentesis today. About 1.5 L of bloody fluid was removed from the left side. No dysuria or hematuria. No rashes or itchiness. No joint pain or joint swelling. Tolerating antibiotic. PHYSICAL EXAMINATION: VITAL SIGNS: Temperature today 97.6. EYES: No icterus. Pupils are equal and reactive. HENT: No oral thrush seen. Moist oral mucosa. NECK: Supple. No JVD or thyromegaly. LUNGS: Good air entry. No crackles. CARDIOVASCULAR: S1 and S2, regular. No murmurs heard. ABDOMEN: Obese, soft and nontender. Bowel sounds present. CENTRAL NERVOUS SYSTEM: Awake, alert, oriented x 3. No focal deficits. SKIN: No rashes. No itchiness. LYMPHATIC: No peripheral lymphadenopathy. BACK: No deformity. No pressure ulcer. MUSCULOSKELETAL: No joint swelling, erythema or tenderness. ASSESSMENT: A 74-year-old male with multiple problems, which include: * pneumonia. * Pleural effusion, status post thoracentesis. * Coronary artery disease, status post coronary artery bypass grafting. * Hypertension. * Obesity. * Anemia. * PLAN: * Continue Zosyn. * Continue on oxygen. * Continue antiplatelet. * Continue antihypertensive. * Continue nutritional support. * Monitor electrolytes. * The patient will be followed up closely. TID: [id number] RECEIPT: [id number]
[2025-02-27 12:00] VITALS: BP 95/58; PULSE 69; RESP 18; TEMP 97.7
--- NOTE | 2025-02-27 13:51 | PN ---
[facility] PROGRESS NOTE Date Patient Seen: Feb 27, 2025 Time of Visit: 13:49 Supervising Physician: Dr Trey Louie Primary Care Physician: KELLEY ENCINAS MD Outpatient Specialists: Inpatient Consults: BIS PROBLEM LIST: CAD, status post CABG x3 Left-sided hemothorax s/p thoracentesis on 02/26/2025 with 1100 cc blood drained Impella and a intra-aortic balloon pump support Type 2 diabetes with hyperglycemia Congested heart failure EF 20% Obstructive coronary artery disease Atherosclerosis Primary hypertension Morbid obesity; BMI 36 Cardiogenic shock; resolved INTERVAL HISTORY: Patient evaluated at bedside today, all labs and imaging have been reviewed No acute events overnight Good O2 saturations, room air Chest x-ray reveals vast improvement from yesterday following the 1.1 L of removal fluid Plan: Follow cultures, serology Supplemental O2 Case management for SN[facility] REVIEW OF SYSTEMS: 12 point ROS reviewed with patient. Pertinent positives mentioned above. Otherwise negative. PHYSICAL EXAM: GENERAL: Patient comfortable in bed, HEENT: EOMI, Sclera non icteric, moist mucosa NECK: Supple, no JVD, trachea midline LUNGS: Clear breath sounds bilaterally. No wheezes HEART: Regular rate and rhythm. Normal S1 and S2, without murmurs sternum wound looks clean, no bleeding or discharge. ABD: Abdomen soft, nontender. Bowel sounds present EXT: Edema and hyperemia to the right ankle have improved compared to yesterday NEURO: Awake alert and oriented Vital Signs (last 8hr) Date Time Temp Pulse Resp B/P (MAP) Pulse Ox O2 Delivery O2 Flow Rate FiO2 02/27/25 12:18 95/58 02/27/25 12:00 97.7 69 18 95/58 95 Room Air 21 02/27/25 08:00 97.5 66 16 93/49 96 Room Air 21 LABS: Hematology Labs: Test 02/27/25 05:22 Range/Units White Blood Count 16.9 H 4.8-10.8 K/uL Red Blood Count 3.30 L 4.50-6.20 MIL/uL Hemoglobin 9.7 L 14.0-18.0 g/dL Hematocrit 29.4 L 42-54 % Mean Corpuscular Volume 89.1 79-99 fL Mean Corpuscular Hemoglobin 29.4 27.0-33.0 pg Mean Corpuscular Hemoglobin Concent 33.0 32.0-36.0 g/dL Red Cell Distribution Width 16.0 H 11.0-15.5 % Platelet Count 470 H 130-400 K/uL Mean Platelet Volume 10.0 7.5-10.5 fL Immature Granulocyte % (Auto) 1.7 H 0-1 % Neutrophils (%) (Auto) 71.5 40.0-77.0 % Lymphocytes (%) (Auto) 17.2 L 21.0-51.0 % Monocytes (%) (Auto) 9.2 3.0-13.0 % Eosinophils (%) (Auto) 0.1 0.0-8.0 % Basophils (%) (Auto) 0.3 0.0-5.0 % Neutrophils # (Auto) 12.1 H 1.8-7.7 K/uL Lymphocytes # (Auto) 2.9 1.0-4.8 K/uL Monocytes # (Auto) 1.6 H 0.1-1.0 K/uL Eosinophils # (Auto) 0.02 0.00-0.70 K/uL Basophils # (Auto) 0.05 0.00-0.20 K/uL Absolute Immature Granulocyte (auto 0.28 0-1 K/uL Nucleated Red Blood Cells 0.1 0.0-0.19 % Chemistry Labs: Test 02/27/25 11:08 02/27/25 07:45 02/27/25 05:22 02/26/25 19:21 Range/Units Whole Blood Glucose 173 H 70-110 MG/DL Iron Level 61 L 65-175 mcg/dL Total Iron Binding Capacity 154 L 250-450 mcg/dL Percent Iron Saturation 39.6 30-44 % Sodium Level 138 136-145 mmol/L Potassium Level 3.9 3.5-5.1 mmol/L Chloride Level 101 101-111 mmol/L Carbon Dioxide Level 28 21-32 mmol/L Blood Urea Nitrogen 22 H 7-18 mg/dL Creatinine 1.1 0.5-1.3 mg/dL Glomerular Filtration Rate Calc 70 >90 mL/min Random Glucose 146 H 70-105 mg/dL Total Calcium 8.4 L 8.5-10.1 mg/dL Magnesium Level 2.00 1.80-2.40 mg/dL Bedside Glucose Comment Notified Nurse Test 02/26/25 03:11 Range/Units Total Bilirubin 1.3 H 0.2-1.0 mg/dL Aspartate Amino Transf (AST/SGOT) 18 10-37 U/L Alanine Aminotransferase (ALT/SGPT) 15 12-78 U/L Alkaline Phosphatase 57 50-136 U/L Total Protein 5.9 L 6.0-8.3 g/dL Albumin 3.0 L 3.5-5.0 g/dL DIAGNOSTICS / RADIOLOGY RESULTS: [ ] PLAN NEURO: Minimize central acting medications as possible. Maintain fall precautions, adequate lighting during the day PULMONARY: Supplemental 02 as needed. Maintain aspiration precautions at all times CARDIOVASCULAR: Follow hemodynamics. Vital signs per facility protocol GI & NUTRITION: Continue with nutritional support. Continue stool softeners and laxatives as needed. KIDNEYS & ELECTROLYTES: Strict monitoring of intake, output and overall fluid balance. Avoid nephrotoxic medications to the extent possible. Medications to be dosed according to renal function. Monitor electrolytes and replace as needed ENDOCRINE: Maintain blood glucose between 100-180 at all times. Hypoglycemia protocol in place INFECTIOUS DISEASE: Trend temperature, WBC and procalcitonin level Follow cultures, deescalate antibiotics as soon as possible. Panculture if new onset fever ONCOLOGY/HEMATOLOGY/COAGULATION: Monitor for s/s of bleeding Monitor hemoglobin, coagulation studies as needed SKIN: Pressure ulcer prevention per facility protocol Specialty mattress ORTHO/REHAB: Continue PT/OT Prophylaxis: Continue GI and DVT prophylaxis Code Status: Full Resuscitation Disposition: as per cardiovascular MAGGIE JARRELL PAC Feb 27, 2025 13:51
[2025-02-27 16:00] VITALS: BP 111/63; PULSE 69; RESP 18; TEMP 98
--- NOTE | 2025-02-27 16:39 | NUR ---
DC PLAN SPOKE TO [facility] AT [facility] SAID THE INSURANCE PATIENT HAS IS NOT IN NETWORK. SPOUSE TRIED TO CALL INSURANCE AND SEE WHAT THE ISSUE WAS. NOT ABLE TO MAKE ANY CHANGES. GAVE OKAY TO CANCEL [facility] AND GO WITH [facility]. LET [facility] AT [facility] KNOW TO CANCEL REFERRAL. SPOKE TO [employer] FOR [facility]. PACKET SENT INCLUDING JESUS.
--- NOTE | 2025-02-27 17:14 | PN ---
[facility] PROGRESS NOTE Date of Service: Feb 27, 2025 Time of Service: 17:09 HISTORY OF PRESENT ILLNESS: This is a 74-year-old male,a [employer] whith past medical history of diabetes, hyperlipidemia and OH/coronary artery disease with cardiac stent who presented to the Ed for complaints of midsternal chest pain that is non radiating associated with diaphoresis and this happened when patient was laying down in bed aroun 11:50 pm last night and decided to come to the ED for evaluation.Patient reports pain was persistent.As per patient he had a history of heart attack before and underwent a stent placement.Patient reports the only medication he is taking is Metformin.Patient states he is supposed to be on Aspirin but has stopped taking it.Patient reports he occasionally drinks beer and last drink was yesterday ,had 2 beers he said. Seen and examined patient in the ER awake,alert and coherent,appears comfortable.Patient denies fever,chills,cough,nausea,vomiting,palpitation and shortness of breath. Latest vital signs temperature 98.2, heart rate 75, blood pressure 124/70 saturation 97% on room air. Labs: CBC unremarkable. Chloride 99, BUN 21, random glucose 469 to 439 to 327. Troponin from -. ECG result revealed revealed sinus rhythm heart rate 85 with atrial premature complex anterolateral infarct age indeterminate. Second EKG result revealed sinus rhythm heart rate 73 with left anterior fascicular block. Probable anterolateral infarct age indeterminate. Abnormal T consider ischemia lateral leads.. Chest x-ray result revealed no acute cardiopulmonary process is evident. While in the ER patient received 1500 mL NS bolus, insulin 5 units IV, aspirin 325 mg p.o. and patient was started on heparin drip per [facility] protocol. SUBJECTIVE: 02/10/25: Patient was seen and evaluated in ED9. Patient was alert, awake and orientedX3. Patient reports that he doesn't have any chest pain today. Patient reports occasional shortness of breath during nights. Patient denies any shortness of breath, nausea, vomiting, palpitations and lightheadedness. Patient denies any abdominal pain, burning urination. Patient mentions that he only takes metformin 3-4 times per week and has stopped taking aspirin because it wasn't reconciled. Troponin from -. 2D ECHO was done, pending results. Patient is currently on Heparin drip 02/11/25: Patient was evaluated at the bedside this morning. No overnight event. He is AAO x3. patient reported that he does not have chest pain or shortness of breath. He is hemodynamically stable. The labs remarkable for potassium 3.3, magnesium 1.6, HbA1c 13.9, troponin 18925. Left heart catheterization revealed severe triple-vessel disease. Echocardiogram revealed 25% ejection fraction with segmental akinesis. CT surgery was consulted who recommended CABG with Impella left ventricle assist. Family to decide about the procedure. He is currently on heparin drip, aspirin. Endocrinology on board. Rest of the plan as discussed below. 02/12/25: Patient was evaluated at the bedside this morning. No overnight event. He is AAO x3. patient reported that he does not have chest pain or shortness of breath. He is hemodynamically stable. Cardiology is on board and Dr. Blanton have suggested low-dose beta estela like metoprolol tartrate 12.5 mg b.i.d. for his heart failure. Dr Kaur still recommends CABG with 5.5 Impella LVAD and the patient agrees to it. We will continue Entresto, Aldactone, Jardiance, aspirin, Lasix as per CT surgeon recommendations. Today his potassium is 3.1 and we would like to be above 4 for CABG patients. So we will replace potassium 02/13/25: Patient was seen and evaluated in room 201. Patient reports feeling better. patient denies any chest pain, shortness of breath. He is continuing on Entresto, Aldactone, Jardiance, aspirin, Lasix as per CT surgeon recommendations.Patients Potassium today is 3.7, will continue replacing potassium. Patients was present along with the patient, she has a few question about the CABG procedure which she wanted to ask Dr. Alexis. 02/14/25. Patient was undergoing CABG procedure today in the morning. 02/15/25: Patient was seen and evaluated in room 213. Patient status post CABG day 1. Patient denies any fever, chills, shortness of breath. Patient complaints of pain along the incision. Patient is on IABP and Impella support. patient is on Vasopressin and Norepinephrine drip. Entresto, Aldactone, Jardiance were discontinued by Dr. Alexis. CT surgery are on the case and will follow their recommendations. 02/16/25: Patient was seen and evaluated in room 213. Patient status post CABG day 2. patient was asleep when we went bedside. Spoke with the nurse regarding overnights and she mentioned that patient was a bit confused in the night but later improved with sleep. Patient is continuing on Epinephrine drip. Patient was weaned off IABP and is currently only on Impella. Patient was started on Vancomycin and cefepime due to elevated WBC levels and findings suggestive of pneumonia on chest x-ray 02/17/25: Patient was seen and evaluated in room 213. Patient status post CABG day 2. patient was asleep when we went bedside. Spoke with the nurse regarding overnights and he mentioned that patient was started on lasix protocol. Patient is continuing on Epinephrine drip and Impella. Critical care are on the case and will follow their recommendations. 02/18/25: Patient was seen and examined at bedside. He is status post CABG day 3. He continues on Lasix drip 2.5, With Impella P3 support and epinephrine drip. His total output in the past 24 hours has been optimal, 4740 versus 2165 input. No acute events overnight. We will follow CTS recommendations regarding further weaning off Impella. 02/19/25: Patient was seen and evaluated in room 210. He is status post CABG day 4. He continues on Lasix drip 2.5, With Impella P3 support and epinephrine drip. His total output in the past 24 hours has been 2905 versus 4072. No acute overnight. Patient is scheduled for possible impella removal tomorrow. 02/20/25: Patient was seen and evaluated in room 210. He is status post CABG day 5. He continues on Lasix drip 2.5, Impella setting have been maintained at P3 settings. He is continuing on epinephrine drip. Cefepime was discontinued yesterday because overnight the patient was confused, agitated and combative suspecting the cause of his confusion and started on Zosyn. His total output in the past 24 hours has been 2675 versus 2206. Patient is scheduled for possible impella removal tomorrow. 02/21/25: Patient was seen and evaluated in room 210. He is status post CABG day 6. Patient is continuing on Epinephrine drip. patient was started on Lasix 20mg IV. Patient is scheduled for impella removal today. Patient is continuing on Zosyn. His total output in the past 24 hours has been 6700 versus 1785. 02/22/25: Patient was seen and evaluated in room 210. He is status post CABG day 7. Patient reports feeling better and he doesn't have any active complaints, Impella was removed yesterday and patient is continuing on Epinephrine drip. patient denies any shortness of breath, fever, chills and chest pain. Patient is continuing on Zosyn. His total output in the past 24 hours has been 3650 versus 1775. 02/23/25: Patient was seen and evaluated in room 210. He is status post CABG day 8. Patient complains of pain in left lower extremity, Patient denies any erythema, chest pain. Patient denies any fever, chills, shortness of breath, and dizziness. Ankle X-ray, US venous Doppler was ordered, will follow the results. Patient is continuing on lasix 20mg. His total output in the past 24 hours has been 4900 versus 1829. 02/24/25: Patient was seen and evaluated in room 210. He is status post CABG day 9. Patient is alert, awake, oriented X3. Patient reports that his pain in the left lower leg is getting better. Venous US ordered yesterday came back unrem arkable. Patient denies any chest pain, shortness of breath. Epinephrine drip was discontinued. Patient was started back on Coreg 3.125mg, Jardiance 10mg under cardiology recommendations. His total output in the past 24 hours has been 3300 versus 1560. 02/25/25: Patient was seen and evaluated in room 233 along with his . He is status post CABG day 10. Patient's mentioned that the patient passed blood clots in urine, Patient denies any burning micturition or difficulty urinating. Patient is alert, awake, oriented X3. Patient denies any pain in left lower extremity, Patient denies any chest pain, shortness of breath. Jardiance was stopped because of elevated bicarb. His total output in the past 24 hours has been 2300 versus 690. 02.26.2024: Patient is seen and evaluated in room 223. His current blood pressure is 105/57. He is on Aspirin, Lasix, Coreg, Jardiance, Aldactone, and Lipitor. Case management is coordinating cardiac rehabilitation and potential SNF placement tomorrow. Pulmonology advised thoracentesis for left pleural effusion, the patient is saturating above 95%. The patient reports no dyspnea or orthopnea. He is receiving 12 units of Lantus and is off the insulin drip. He is on Zosyn and Vancomycin, and his WBC is 15.4 today. Bilirubin is trending down to 1.3 .: Patient is seen and evaluated in room 223. He has no active complaints, and the nurse reports no overnight events. Chest X-ray demonstrates improvement from yesterday following thoracentesis. Case management is arranging placement to a long-term facility, pending approval. From the cardiology perspective, the patient is cleared and approved for discharge to rehab. REVIEW OF SYSTEMS CONSTITUTIONAL: Denies fevers, chills, or night sweats. No unintentional weight loss reported. NEUROLOGICAL: Denies headache, amaurosis fugax, motor weakness, sensory deficit, vertigo/spinning sensation, gait abnormalities, or tremors. ENT: No hearing loss, otalgia, otorrhea, rhinitis, rhinorrhea, hoarseness, or sore throat. CARDIOVASCULAR: Denies chest pain, dyspnea on exertion, orthopnea, paroxysmal nocturnal dyspnea, palpitations, life-threatening arrhythmias, claudication. PULMONARY: Denies any cough, phlegm/sputum, hemoptysis, pleuritic chest pain. GASTROINTESTINAL: Denies any type of dysphagia to either liquids or solids. Denies nausea, vomiting, pyrosis, early satiety, abdominal pain, diarrhea, constipation, or changes in stool consistency or caliber. Denies coffee-ground emesis, hematemesis, hematochezia, or melanotic stools. GENITOURINARY: Denies frequency, urgency, nocturia, hematuria or incontinence (Storage/Irritative symptoms.) Low urinary stream, straining to void, urinary intermittency or hesitancy, splitting of the voiding stream, terminal dribbling. PHYSICAL EXAM GENERAL APPEARANCE: The patient is awake, alert, and oriented, in no acute cardiopulmonary distress. NEUROLOGICAL: Motor is 5/5 in bilateral upper and lower extremities proximal to distal. No sensory deficits. HEENT: Face is symmetric. Pupils are equal and reactive. Extraocular movements are intact. NECK: Supple. No thyromegaly. No submental, submandibular, pre-/postauricular, occipital or supraclavicular lymphadenopathy. CHEST: Normal chest expansion. No Telemetry. LUNGS: Absence of any rales, rhonchi or any wheezing. CARDIOVASCULAR: Regular. S1 and S2 normal. No appreciable rubs, murmurs or gallops. ABDOMEN: Soft, nontender, and nondistended. There is no rebound, voluntary guarding, or rigidity. : Deferred. No De Jesus. EXTREMITIES: Non-edematous and not cyanotic. No clubbing. Good capillary refill. SKIN: sternal scar - post CABG Vital Signs (last 8hr) Date Time Temp Pulse Resp B/P (MAP) Pulse Ox O2 Delivery O2 Flow Rate FiO2 02/27/25 16:00 98.1 69 18 111/63 97 Room Air 21 02/27/25 12:18 95/58 02/27/25 12:00 97.7 69 18 95/58 95 Room Air 21 LABS: Laboratory: Test 02/27/25 15:34 02/27/25 07:45 02/27/25 05:22 02/26/25 03:11 Range/Units Whole Blood Glucose 235 H 70-110 MG/DL Bedside Glucose Comment Notified Nurse Iron Level 61 L 65-175 mcg/dL Total Iron Binding Capacity 154 L 250-450 mcg/dL Percent Iron Saturation 39.6 30-44 % White Blood Count 16.9 H 4.8-10.8 K/uL Red Blood Count 3.30 L 4.50-6.20 MIL/uL Hemoglobin 9.7 L 14.0-18.0 g/dL Hematocrit 29.4 L 42-54 % Mean Corpuscular Volume 89.1 79-99 fL Mean Corpuscular Hemoglobin 29.4 27.0-33.0 pg Mean Corpuscular Hemoglobin Concent 33.0 32.0-36.0 g/dL Red Cell Distribution Width 16.0 H 11.0-15.5 % Platelet Count 470 H 130-400 K/uL Mean Platelet Volume 10.0 7.5-10.5 fL Immature Granulocyte % (Auto) 1.7 H 0-1 % Neutrophils (%) (Auto) 71.5 40.0-77.0 % Lymphocytes (%) (Auto) 17.2 L 21.0-51.0 % Monocytes (%) (Auto) 9.2 3.0-13.0 % Eosinophils (%) (Auto) 0.1 0.0-8.0 % Basophils (%) (Auto) 0.3 0.0-5.0 % Neutrophils # (Auto) 12.1 H 1.8-7.7 K/uL Lymphocytes # (Auto) 2.9 1.0-4.8 K/uL Monocytes # (Auto) 1.6 H 0.1-1.0 K/uL Eosinophils # (Auto) 0.02 0.00-0.70 K/uL Basophils # (Auto) 0.05 0.00-0.20 K/uL Absolute Immature Granulocyte (auto 0.28 0-1 K/uL Nucleated Red Blood Cells 0.1 0.0-0.19 % Sodium Level 138 136-145 mmol/L Potassium Level 3.9 3.5-5.1 mmol/L Chloride Level 101 101-111 mmol/L Carbon Dioxide Level 28 21-32 mmol/L Blood Urea Nitrogen 22 H 7-18 mg/dL Creatinine 1.1 0.5-1.3 mg/dL Glomerular Filtration Rate Calc 70 >90 mL/min Random Glucose 146 H 70-105 mg/dL Total Calcium 8.4 L 8.5-10.1 mg/dL Magnesium Level 2.00 1.80-2.40 mg/dL Total Bilirubin 1.3 H 0.2-1.0 mg/dL Aspartate Amino Transf (AST/SGOT) 18 10-37 U/L Alanine Aminotransferase (ALT/SGPT) 15 12-78 U/L Alkaline Phosphatase 57 50-136 U/L Total Protein 5.9 L 6.0-8.3 g/dL Albumin 3.0 L 3.5-5.0 g/dL Current Medications Medications (Trade) Dose Ordered Sig/Carol Route PRN Reason Start Time Stop Time Status Last Admin Dose Admin Acetaminophen (TYLenol 325MG TAB) 650 mg Q4H PRN PO MILD PAIN (1-3) 02/10/25 05:00 02/14/25 10:05 DC Acetaminophen (TYLenol 325MG TAB) 650 mg Q4H PRN PO Temp >38.3C(AFTER EXTUBATION) 02/14/25 10:00 03/16/25 09:59 Acetaminophen (TYLenol 325MG TAB) 650 mg Q6H PRN PO TEMPERATURE GREATER THAN 101.5 02/10/25 05:00 02/14/25 10:17 DC 02/12/25 17:13 650 MG Acetaminophen (TYLenol 325MG TAB) 650 mg Q6H PRN PO MILD PAIN (1-3) 02/14/25 10:00 03/16/25 09:59 Acetaminophen (TYLenol 650MG SUPPOSITORY) 650 mg Q4H PRN RC Temp >38.3C WHILE INTUBATED 02/14/25 10:00 02/23/25 11:52 DC Acetaminophen (acetaMINOPHEN 1,000MG/100ML) 1,000 mg Q6H6 IV 02/14/25 14:00 02/15/25 13:59 DC 02/15/25 12:14 1,000 MG Albumin Human 50 ml @ 0 mls/hr Q12H9 IV 02/20/25 09:00 02/24/25 08:42 DC 02/24/25 08:15 100 MLS/HR Albumin Human 250 ml @ 0 mls/hr AD IV 02/14/25 15:30 02/18/25 10:40 DC 02/18/25 10:27 250 MLS/HR Albumin Human 250 ml @ 0 mls/hr AD IV 02/18/25 10:30 02/20/25 09:03 DC Albumin Human 250 ml @ 0 mls/hr AD PRN IV IF HEMODYNAMICALLY UNSTABLE 02/14/25 10:00 02/14/25 14:42 DC 02/14/25 14:42 500 MLS/HR Aminocaproic Acid 91239 mg/Sodium Chloride 310 ml @ 25 mls/hr AD IV 02/14/25 10:00 02/14/25 10:19 DC Aminocaproic Acid 05548 mg/Sodium Chloride 480 ml @ 0 mls/hr AD PRN IV BLEEDING CONTROL 02/14/25 06:30 02/23/25 11:52 DC Aminocaproic Acid 61917 mg/Sodium Chloride 480 ml @ 0 mls/hr AD PRN IV BLEEDING CONTROL 02/14/25 07:00 02/14/25 06:51 DC Aspirin (Aspirin 325mg Tab) 325 mg ONCE PO 02/10/25 14:30 02/10/25 17:22 DC 02/10/25 14:32 325 MG Aspirin (Aspirin 81mg Ec Tab) 81 mg DAILY PO 02/10/25 09:00 03/12/25 08:59 02/27/25 12:13 81 MG Atorvastatin Calcium (LIPItor 40MG) 40 mg HS PO 02/14/25 21:00 03/16/25 20:59 02/26/25 20:22 40 MG Calcium Gluconate 1 gm/Sodium Chloride 60 ml @ 200 mls/hr AD PRN IV HYPOCALCEMIA 02/14/25 10:00 03/16/25 09:59 02/21/25 08:36 200 MLS/HR Carvedilol (Coreg 3.125MG) 3.125 mg BID PO 02/20/25 21:00 02/24/25 06:13 DC Carvedilol (Coreg 3.125MG) 3.125 mg BID PO 02/24/25 09:00 03/26/25 08:59 02/27/25 12:18 3.125 MG Cefazolin Sodium (Ancef) 2 gm ONCALL IVP 02/13/25 20:00 02/14/25 18:51 DC 02/14/25 08:50 2 GM Cefazolin Sodium (Ancef) 2 gm Q8H IVPB 02/14/25 15:00 02/15/25 07:01 DC 02/15/25 06:25 2 GM Cefepime HCl (MAXipime 1 GM vial) 1 gm Q12H IVPB 02/16/25 10:30 02/20/25 08:16 DC 02/19/25 22:54 1 GM Clopidogrel Bisulfate (plaVIX 300MG TAB) 600 mg ONCE PO 02/10/25 14:00 02/10/25 17:22 DC 02/10/25 14:19 600 MG Clopidogrel Bisulfate (plaVIX 75MG) 75 mg DAILY PO 02/11/25 09:00 02/11/25 07:28 DC Dexmedetomidine/ Sodium Chloride (PRECEdex 400MCG/ 100ML-NS) 400 mcg PROTOCOL IV 02/14/25 10:00 02/15/25 09:59 DC Dexmedetomidine/ Sodium Chloride (PRECEdex 400MCG/ 100ML-NS) 400 mcg PROTOCOL IV 02/20/25 07:30 02/22/25 15:01 DC 02/22/25 05:51 400 MCG Dexmedetomidine/ Sodium Chloride (PRECEdex 400MCG/ 100ML-NS) 400 mcg PROTOCOL IV 02/23/25 00:00 03/25/25 00:00 02/23/25 00:17 400 MCG Dextrose (D50w) 50 ml AD PRN IV HYPOGLYCEMIA PROTOCOL 02/10/25 05:00 02/14/25 10:17 DC Dextrose (D50w) 50 ml AD PRN IV HYPOGLYCEMIA PROTOCOL 02/14/25 10:00 03/16/25 09:59 Docusate Sodium (COLace 100MG CAP) 100 mg BID PO 02/14/25 21:00 03/16/25 20:59 02/27/25 12:14 100 MG Empaglifozin (Jardiance 10mg) 10 mg DAILY PO 02/10/25 14:30 02/14/25 09:59 DC 02/13/25 10:52 10 MG Empaglifozin (Jardiance 10mg) 10 mg DAILY PO 02/20/25 09:00 02/22/25 15:01 DC 02/22/25 09:38 10 MG Empaglifozin (Jardiance 10mg) 10 mg DAILY PO 02/24/25 09:00 02/24/25 13:01 DC 02/24/25 08:47 10 MG Enoxaparin Sodium (Lovenox) 30 mg DAILY SQ 02/17/25 09:00 03/19/25 08:59 02/27/25 12:15 30 MG Epinephrine HCl 10 mg/Sodium Chloride 250 ml @ 0 mls/hr AD PRN IV TITRATE 02/14/25 06:30 03/16/25 06:29 02/20/25 17:32 2.9 MLS/HR Epinephrine HCl 10 mg/Sodium Chloride 250 ml @ 0 mls/hr AD PRN IV TITRATE 02/14/25 07:00 02/14/25 06:51 DC Epinephrine HCl 10 mg/Sodium Chloride 250 ml @ 0 mls/hr AD PRN IV POST-OP CARDIOVASCULAR ORDERS 02/14/25 10:00 02/14/25 10:14 DC Famotidine (Pepcid 20mg Vial) 20 mg BID IV 02/14/25 21:00 02/16/25 07:58 DC 02/15/25 20:15 20 MG Famotidine (Pepcid 20mg Tab) 20 mg BID PO 02/16/25 09:00 02/17/25 07:09 DC 02/16/25 20:03 20 MG Famotidine (Pepcid 20mg Tab) 20 mg DAILY PO 02/10/25 09:00 02/14/25 09:59 DC 02/13/25 10:53 20 MG Famotidine (Pepcid 20mg Tab) 20 mg DAILY PO 02/17/25 09:00 03/18/25 08:59 02/27/25 12:14 20 MG Furosemide (LASix 20MG TAB) 20 mg DAILY PO 02/11/25 09:00 02/14/25 09:59 DC 02/13/25 10:52 20 MG Furosemide (LASix 20MG TAB) 20 mg Q12H PO 02/16/25 09:00 02/16/25 10:21 DC 02/16/25 08:19 20 MG Furosemide (LASix 20MG VIAL) 20 mg ONCE IV 02/10/25 17:00 02/10/25 21:00 DC 02/10/25 17:00 20 MG Furosemide (LASix 20MG VIAL) 20 mg ONCE IV 02/11/25 09:00 02/11/25 07:43 DC Furosemide (LASix 20MG VIAL) 20 mg Q12H IV 02/15/25 09:00 02/16/25 08:59 DC 02/15/25 20:16 20 MG Furosemide (LASix 20MG VIAL) 20 mg Q12H IV 02/20/25 09:00 02/26/25 09:43 DC 02/25/25 21:27 20 MG Furosemide (LASix 40MG VIAL) 40 mg Q12H IV 02/26/25 10:00 03/28/25 09:59 02/27/25 12:15 40 MG Furosemide 100 mg/ Sodium Chloride 100 ml @ 0 mls/hr PROTOCOL IV 02/16/25 10:30 02/20/25 09:01 DC 02/19/25 11:35 2.5 MLS/HR Glucagon (Glucagon 1mg Kit) 1 mg AD PRN IM HYPOGLYCEMIA PROTOCOL 02/10/25 05:00 02/14/25 10:17 DC Glucagon (Glucagon 1mg Kit) 1 mg AD PRN IM HYPOGLYCEMIA PROTOCOL 02/14/25 10:00 03/16/25 09:59 Heparin Sodium (Porcine) (HEParin 5,000 UNIT VIAL) *calculation based on ACTUAL B... AD PRN IV HEPARIN PROTOCOL 02/12/25 21:00 02/14/25 09:59 DC 02/12/25 20:16 4,000 UNIT Heparin Sodium/ Dextrose 250 ml @ 0 mls/hr PROTOCOL IV 02/10/25 03:00 02/10/25 17:22 DC 02/10/25 03:00 16.2 MLS/HR Heparin Sodium/ Dextrose 250 ml @ 0 mls/hr Q6H IV 02/11/25 06:30 02/14/25 09:59 DC 02/13/25 13:01 9 MLS/HR Home Med (Home Medication) (Brimonidine-Timolol 0.2%/0.5% EYE DROPS) DAILY OP 02/18/25 09:00 03/20/25 08:59 02/27/25 12:16 1 EACH Insulin Glargine (LANtus 100 UNITS/ML 10 ML VIAL) 10 units DAILY 02/21/25 09:00 02/22/25 19:17 DC 02/22/25 11:54 10 UNITS Insulin Glargine (LANtus 100 UNITS/ML 10 ML VIAL) 12 units DAILY SQ 02/23/25 09:00 03/25/25 08:59 02/26/25 09:55 12 UNITS Insulin Glargine (LANtus 100 UNITS/ML 10 ML VIAL) 12 units DAILY08 02/13/25 08:00 02/14/25 09:59 DC 02/13/25 10:51 12 UNITS Insulin Glargine (LANtus 100 UNITS/ML 10 ML VIAL) 15 units DAILY08 02/11/25 08:00 02/13/25 05:24 DC 02/12/25 08:54 15 UNITS Insulin Human Regular (humuLIN R 100 UNIT/ML 3ML) 3 unit TIDAC 02/12/25 07:30 02/14/25 09:59 DC 02/12/25 16:31 3 UNIT Insulin Human Regular (humuLIN R 100 UNIT/ML 3ML) INSULIN SLIDING SCAL... ACHS SQ 02/16/25 11:30 03/18/25 11:29 02/26/25 20:55 6 UNIT Insulin Human Regular (humuLIN R 100 UNIT/ML 3ML) INSULIN SLIDING SCAL... Q4H SQ 02/10/25 05:00 02/10/25 11:10 DC 02/10/25 09:15 6 UNIT Insulin Human Regular (humuLIN R 100 UNIT/ML 3ML) INSULIN SLIDING SCAL... Q6H6 SQ 02/10/25 12:00 02/14/25 09:59 DC 02/11/25 17:29 2 UNIT Insulin Human Regular 100 unit/ Sodium Chloride 100 ml @ 0 mls/hr AD IV 02/14/25 10:00 02/16/25 09:59 DC 02/15/25 06:30 3 MLS/HR Lactulose (Constulose 20gm/ 30ml Udcup) 20 gm BID PRN PO CONSTIPATION 02/14/25 10:00 03/16/25 09:59 Latanoprost (Xalatan) 1 DROP FOR EACH EYE HS OP 02/17/25 21:00 03/19/25 20:59 02/26/25 20:37 1 DROP Magnesium Hydroxide (Milk Of Magnesium 30ml) 30 ml DAILY PRN PO CONSTIPATION 02/14/25 10:00 03/16/25 09:59 Magnesium Sulfate 50 ml @ 12.5 mls/hr AD PRN IV MAG LEVEL LESS THAN 2.0 02/14/25 10:00 03/16/25 09:59 02/24/25 08:17 12.5 MLS/HR Magnesium Sulfate 50 ml @ 0 mls/hr PROTOCOL PRN IV OTHER [SEE ORDER COMMENTS] 02/10/25 05:00 02/14/25 10:17 DC 02/12/25 07:13 25 MLS/HR Metoprolol Tartrate (loprESSOR) 12.5 mg BID PO 02/12/25 09:00 02/14/25 09:59 DC 02/14/25 06:44 12.5 MG Metoprolol Tartrate (loprESSOR) 12.5 mg BID PO 02/16/25 09:00 02/20/25 09:01 DC Midodrine (PROAMatine 5 MG TABLET) 10 mg TID PO 02/23/25 14:00 03/25/25 13:59 02/27/25 12:14 10 MG Morphine Sulfate (morPHINE 2MG SYG) 0.5 mg Q2H PRN IV MODERATE PAIN (4-6) IF NPO 02/14/25 10:00 02/15/25 09:59 DC Morphine Sulfate (morPHINE 2MG SYG) 1 mg Q2H PRN IV SEVERE PAIN (7-10) IF NPO 02/14/25 10:30 02/19/25 13:29 DC 02/14/25 14:23 1 MG Nitroglycerin (Nitrostat) 0.4 mg PROTOCOL PRN SL CHEST PAIN 02/10/25 05:00 02/14/25 09:59 DC Nitroglycerin/ Dextrose 0 ml @ 0 mls/hr AD IV 02/14/25 10:00 02/17/25 09:59 DC Norepinephrine Bitartrate 250 ml @ 0 mls/hr AD PRN IV TITRATE 02/14/25 06:30 03/16/25 06:29 02/17/25 01:06 1.9 MLS/HR Norepinephrine Bitartrate 250 ml @ 0 mls/hr AD PRN IV TITRATE 02/14/25 07:00 02/14/25 06:51 DC Norepinephrine Bitartrate 8 mg/ Dextrose 250 ml @ 0 mls/hr AD PRN IV POST-OP CARDIOVASCULAR ORDERS 02/14/25 10:00 02/14/25 10:14 DC Ondansetron HCl (zoFRAN 4MG INJ) 4 mg Q6H PRN IV NAUSEA/VOMITING 02/10/25 05:00 02/14/25 10:17 DC Ondansetron HCl (zoFRAN 4MG INJ) 4 mg Q6H PRN IV NAUSEA/VOMITING 02/14/25 10:00 03/16/25 09:59 Pharmacy Profile Note (Pharmacy Communication) 1 each ONCE MISC 02/14/25 18:00 02/14/25 18:27 DC Pharmacy Profile Note (Pharmacy Communication) 1 each ONCE MISC 02/20/25 11:30 02/20/25 11:19 DC Piperacillin Sod/ Tazobactam Sod 50 ml @ 12.5 mls/hr Q8H IVPB 02/20/25 11:30 02/24/25 18:10 DC 02/24/25 11:45 12.5 MLS/HR Piperacillin Sod/ Tazobactam Sod 50 ml @ 12.5 mls/hr Q8H6 IVPB 02/24/25 22:00 03/06/25 21:59 02/27/25 05:23 12.5 MLS/HR Potassium Phosphate 250 ml @ 42 mls/hr AD PRN IV LOW PHOS LEVEL 02/14/25 10:00 03/16/25 09:59 Potassium Chloride 100 ml @ 100 mls/hr AD PRN IV POTASSIUM PROTOCOL 02/10/25 05:00 02/15/25 06:27 DC 02/15/25 05:43 100 MLS/HR Potassium Chloride 100 ml @ 100 mls/hr AD PRN IV HYPOKALEMIA 02/14/25 10:00 03/16/25 09:59 02/21/25 16:43 100 MLS/HR Potassium Chloride (K-Dur/Klor-Con 20meq) 20 meq AD PRN PO POTASSIUM PROTOCOL 02/10/25 05:00 03/12/25 04:59 02/18/25 20:18 20 MEQ Potassium Chloride (K-Dur/Klor-Con 20meq) 20 meq BID PO 02/19/25 10:30 03/21/25 10:29 02/27/25 12:28 20 MEQ Potassium Chloride (KCl 10% Elixir 20meq/15ml) 20 meq AD PRN PO POTASSIUM PROTOCOL 02/10/25 05:00 03/12/25 04:59 02/25/25 09:30 20 MEQ Prednisone (deltaSONE/ oraSONE 20MG TAB) 20 mg DAILY PO 02/23/25 12:30 02/26/25 13:00 DC 02/26/25 09:50 20 MG Propofol 100 ml @ 0 mls/hr AD PRN IV SEDATION 02/14/25 10:00 02/18/25 09:59 DC Sacubitril/ Valsartan (Entresto 24 Mg-26 Mg Tablet) 0.5 each BID PO 02/10/25 21:00 02/14/25 09:59 DC 02/13/25 21:11 0.5 EACH Sodium Bicarbonate 25 meq/Dextrose 1,025 ml @ 0 mls/hr Q0M IV 02/14/25 18:00 03/16/25 17:59 02/18/25 13:03 9.9 MLS/HR Sodium Bicarbonate (Sodium Bicarb 50meq 50ml Vial) 50 meq AD PRN IV OTHER[SEE DOSING INSTRUCTIONS] 02/14/25 10:00 02/17/25 09:59 DC 02/16/25 15:25 50 MEQ Sodium Chloride 500 ml @ 0 mls/hr AD IV 02/14/25 10:00 03/16/25 09:59 Sodium Chloride 1,000 ml @ 10 mls/hr ONCE IV 02/14/25 10:00 02/15/25 09:59 DC Sodium Chloride 1,000 ml @ 100 mls/hr Q10H IV 02/10/25 05:00 02/10/25 17:22 DC 02/10/25 14:20 100 MLS/HR Sodium Chloride (NS Flush 10ml) 10 ml Q8H PRN IVP IV LINE FLUSH 02/14/25 10:00 03/16/25 09:59 Spironolactone (Aldactone 25mg) 25 mg DAILY PO 02/10/25 14:30 02/14/25 09:59 DC 02/13/25 10:52 25 MG Spironolactone (Aldactone 25mg) 25 mg DAILY PO 02/20/25 09:00 03/22/25 08:59 02/27/25 12:14 25 MG Tramadol HCl (UltRAM) 25 mg Q6H PRN PO MODERATE PAIN (4-6) 02/14/25 10:00 02/19/25 09:59 DC Tramadol HCl (UltRAM) 50 mg Q6H PRN PO SEVERE PAIN (7-10) 02/14/25 10:00 02/19/25 09:59 DC Vancomycin HCl 250 ml @ 125 mls/hr Q12H IV 02/18/25 11:30 02/21/25 05:33 DC 02/19/25 11:20 125 MLS/HR Vancomycin HCl 250 ml @ 125 mls/hr Q24H IV 02/21/25 06:00 02/24/25 05:57 DC 02/23/25 06:28 125 MLS/HR Vancomycin HCl 250 ml @ 125 mls/hr Q24H IV 02/24/25 06:30 02/24/25 12:15 DC 02/24/25 06:26 125 MLS/HR Vancomycin HCl (Vancomycin Protocol) 1 each AD IV 02/18/25 11:00 02/24/25 12:15 DC Vasopressin 40 units/Sodium Chloride 40 ml @ 0 mls/hr PROTOCOL IV 02/14/25 13:00 03/16/25 12:59 02/14/25 22:11 1.8 MLS/HR DIAGNOSTICS / RADIOLOGY: [ ] ASSESSMENT: Chest pain rule out ACS: NSTEMI POA Suspected pneumonia findings on Chest X-ray Possible metabolic encephalopathy Hyperglycemia secondary to uncontrolled diabetes POA Hyperlipidemia POA Medication noncompliance, POA Obesity POA [place]/Coronary artery disease with cardiac stent POA PLAN: Pending SNF Approval NSTEMI POA: * EKG was done which revealed sinus rhythm heart rate 85 with atrial premature complex anterolateral infarct age indeterminate. Second EKG result revealed sinus rhythm heart rate 73 with left anterior fascicular block. Probable anterolateral infarct age indeterminate. Abnormal T consider ischemia lateral leads. * PERC score was one, Wells score was zero. Very low suspicion for Pulmonary Embolism. * Chest X - ray on 02.25.2025 - Persistent small left pleural effusion with left mid and lower zone airspace opacities, significantly unchanged from prior study. * Thoracentesis done today - removed 1.1 lit of fluid by Dr. Louie and the patient tolerated the procedure well * Chest x-ray done on 02/17/25 show, small stable left pleural effusion with adjacent lung atelectasis. follow up x-ray from 02/22/25 show Cardiomegaly with median sternotomy with cardiac revascularization procedure, there is suggestion of a moderate left-sided pleural effusion. * 2-D ECHO on 02/19/25 show LVEF of 25-30% with segmental akinesis (apical, apical lateral, anteroapical), LDL 89, BNP 488 * Troponin trends 21>[id number] * Left heart catheterization revealed severe three-vessel CAD with occluded mid LAD, 90% proximal left circumflex, 95% distal RCA, and 90% ostial PDA. * As per CT surgeon recommendations Entresto 0.5 each, was held. 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 * On aspirin 81 mg p.o. * Patient started on lasix 20mg IV, Aldactone 25mg. His total output in the past 24 hours has been 2300 versus 690. * Impella removed * Epinpehrine drip was discontinued and patient was started on Coreg 31.125, * Jardiance 10mg was held due to elevated bicarb. Suspected pneumonia findings on Chest X-ray * Chest x-ray done on 02/16/25 show diffuse airspace disease of the left lung, predominantly involving the left lower zone, could be due to an infection or atelectasis. Questionable left pleural effusion. * Chest x-ray done on 02/17/25 show, small stable left pleural effusion with adjacent lung atelectasis. follow up x-ray from 02/19/25 show no interval change. * Patient started on Zosyn from 02/20/25 * WBC count on (02/26/25) - 16.9 * Patient started on Prednisone 20mg PO * Will monitor with daily labs. Possible metabolic encephalopathy * Chest x-ray done on 02/17/25 show, small stable left pleural effusion with adjacent lung atelectasis. * Patient was started on Vancomycin and cefepime due to elevated WBC levels and findings suggestive of pneumonia on chest x-ray * Cefepime was discontinued on 02/20/25 because the patient was confused, agitated and combative suspecting the cause of his confusion and was started on Zosyn. * Will monitor with daily labs Hyperglycemia secondary to uncontrolled diabetes POA: * HbA1c 13.9, blood glucose 123 * Following the Endocrinology recommendations. He is on Lantus 15 units, low- dose sliding scale insulin * Jardiance 10mg was held due to elevated bicarb. * We will monitor blood glucose. Hypokalemia Hypomagnesemia - resolved * Potassium 3.9 - 02.27.2025 * Magnesium 2 (02.27.2025) * We will replete the electrolytes and monitor. * Keep potassium above 4 and magnesium above 2. * We will start Slow-Mag oral t.i.d. once and will keep monitoring magnesium levels. Supportive measures * GI prophylaxis with Famotidine * DVT prophylaxis with SCD's ATTESTATION BY PHYSICIAN I have seen and examined the patient. I reviewed the documentation, medical decision making, and treatment plan as noted by the resident provider above. I agree with the findings and plan of care. Juanjo Cleveland MD, LAKSHMI MD Feb 27, 2025 17:14
[2025-02-27 19:17] VITALS: BP 93/54; PULSE 68; RESP 18; TEMP 97.5
--- NOTE | 2025-02-27 19:38 | PN ---
Endocrinology progress note DOS: 02/27/25 subjective: glucose are improving/stable and s/p CABG procedure Home diabetic regimen: metformin 500 mg bid, Hba1c 13.9% s/p thoracentesis PAST MEDICAL HISTORY: [ Diabetes, hyperlipidemia, [place]/coronary artery disease ] PAST SURGICAL HISTORY: [ Cardiac stent, cholecystectomy and left inguinal hernia repair ] PAST SOCIAL HISTORY: [ Patient lives with . Patient admits he drinks two beer yesterday. Patient reports he occasional drinks alcohol denies cigarette and recreational drug use. ] FAMILY HISTORY: [ Diabetes, cardiovascular disease, asthma and cancer ] Coded Allergies: No Known Drug Allergies (Unverified Allergy, Unknown, 08/31/15) ASSESSMENT: Hyperglycemia secondary to uncontrolled diabetes POA Home diabetic regimen: metformin 500 mg bid, Hba1c 13.9% glucose is improving. NSTEMI POA s/p CABG triple vessel disease s/p CABG Hyperlipidemia POA Obesity POA [place]/Coronary artery disease with cardiac stent POA PLAN: OFF insulin drip continue lantus 12 units daily. off regular insulin. Continue low dose sliding scale insulin. Monitor glucose q x 6 hourly. Keep glucose less than 180 mg/dl. Patient will need insulin at discharge Vitals/Labs Vital Signs Date Time Temp Pulse Resp B/P (MAP) Pulse Ox O2 Delivery O2 Flow Rate FiO2 02/27/25 19:17 97.5 68 18 93/54 97 Room Air 02/27/25 16:00 21 02/27/25 08:00 0 Laboratory Tests 02/27/25 05:22 Medications Current Medications Sodium Chloride 1,000 ml @ 0 mls/hr ONCE ONCE IV; Start 02/10/25 at 01:00; Stop 02/10/25 at 00:46; Status DC Sodium Chloride 500 ml @ 0 mls/hr ONCE ONCE IV Last administered on 02/10/25at 00:53; Start 02/10/25 at 01:00; Stop 02/10/25 at 01:01; Status DC Insulin Human Regular 5 unit ONCE ONCE IV Last administered on 02/10/25at 01:30; Start 02/10/25 at 01:30; Stop 02/10/25 at 01:31; Status DC Aspirin 325 mg ONCE ONCE PO Last administered on 02/10/25at 02:32; Start 02/10/25 at 02:30; Stop 02/10/25 at 02:31; Status DC Heparin Sodium/ Dextrose 250 ml @ 0 mls/hr PROTOCOL IV Last administered on 02/10/25at 03:00; Start 02/10/25 at 03:00; Stop 02/10/25 at 17:22; Status DC Heparin Sodium (Porcine) 7,000 unit ONCE ONCE SQ Last administered on 02/10/25at 02:55; Start 02/10/25 at 03:00; Stop 02/10/25 at 03:01; Status DC Acetaminophen 650 mg Q6H PRN PO Last administered on 02/12/25at 17:13; Start 02/10/25 at 05:00; Stop 02/14/25 at 10:17; Status DC Acetaminophen 650 mg Q4H PRN PO; Start 02/10/25 at 05:00; Stop 02/14/25 at 10:05; Status DC Ondansetron HCl 4 mg Q6H PRN IV; Start 02/10/25 at 05:00; Stop 02/14/25 at 10:17; Status DC Nitroglycerin 0.4 mg PROTOCOL PRN SL; Start 02/10/25 at 05:00; Stop 02/14/25 at 09:59; Status DC Famotidine 20 mg DAILY PO Last administered on 02/13/25at 10:53; Start 02/10/25 at 09:00; Stop 02/14/25 at 09:59; Status DC Sodium Chloride 1,000 ml @ 100 mls/hr Q10H IV Last administered on 02/10/25at 14:20; Start 02/10/25 at 05:00; Stop 02/10/25 at 17:22; Status DC Insulin Human Regular INSULIN SLIDING SCAL... Q4H SQ Last administered on 02/10/25at 09:15; Start 02/10/25 at 05:00; Stop 02/10/25 at 11:10; Status DC Dextrose 50 ml AD PRN IV; Start 02/10/25 at 05:00; Stop 02/14/25 at 10:17; Status DC Glucagon 1 mg AD PRN IM; Start 02/10/25 at 05:00; Stop 02/14/25 at 10:17; Status DC Magnesium Sulfate 50 ml @ 0 mls/hr PROTOCOL PRN IV Last administered on 02/12/25at 07:13; Start 02/10/25 at 05:00; Stop 02/14/25 at 10:17; Status DC Potassium Chloride 100 ml @ 100 mls/hr AD PRN IV Last administered on 02/15/25at 05:43; Start 02/10/25 at 05:00; Stop 02/15/25 at 06:27; Status DC Potassium Chloride 20 meq AD PRN PO Last administered on 02/25/25at 09:30; Start 02/10/25 at 05:00; Stop 03/12/25 at 04:59 Potassium Chloride 20 meq AD PRN PO Last administered on 02/18/25at 20:18; Start 02/10/25 at 05:00; Stop 03/12/25 at 04:59 Aspirin 81 mg DAILY PO Last administered on 02/27/25at 12:13; Start 02/10/25 at 09:00; Stop 03/12/25 at 08:59 Insulin Human Regular INSULIN SLIDING SCAL... Q6H6 SQ Last administered on 02/11/25at 17:29; Start 02/10/25 at 12:00; Stop 02/14/25 at 09:59; Status DC Clopidogrel Bisulfate 600 mg ONCE PO Last administered on 02/10/25at 14:19; Start 02/10/25 at 14:00; Stop 02/10/25 at 17:22; Status DC Aspirin 325 mg ONCE PO Last administered on 02/10/25at 14:32; Start 02/10/25 at 14:30; Stop 02/10/25 at 17:22; Status DC Sacubitril/ Valsartan 0.5 each BID PO Last administered on 02/13/25at 21:11; Start 02/10/25 at 21:00; Stop 02/14/25 at 09:59; Status DC Empaglifozin 10 mg DAILY PO Last administered on 02/13/25at 10:52; Start 02/10/25 at 14:30; Stop 02/14/25 at 09:59; Status DC Spironolactone 25 mg DAILY PO Last administered on 02/13/25at 10:52; Start 02/10/25 at 14:30; Stop 02/14/25 at 09:59; Status DC Furosemide 20 mg ONCE IV Last administered on 02/10/25at 17:00; Start 02/10/25 at 17:00; Stop 02/10/25 at 21:00; Status DC Furosemide 20 mg ONCE IV; Start 02/11/25 at 09:00; Stop 02/11/25 at 07:43; Status DC Lidocaine HCl 20 ml STK-MED ONCE .ROUTE; Start 02/10/25 at 15:22; Stop 02/10/25 at 15:23; Status DC Iohexol 35,000 mg STK-MED ONCE IV; Start 02/10/25 at 15:22; Stop 02/10/25 at 15:23; Status DC Iohexol 50 ml STK-MED ONCE IV; Start 02/10/25 at 15:22; Stop 02/10/25 at 15:23; Status DC Heparin Sodium (Porcine) 10,000 unit STK-MED ONCE .ROUTE; Start 02/10/25 at 15:23; Stop 02/10/25 at 15:23; Status DC Heparin Sodium/ Sodium Chloride 1,000 ml @ As Directed STK-MED ONCE IV; Start 02/10/25 at 15:23; Stop 02/10/25 at 15:23; Status DC Nitroglycerin 50 mg STK-MED ONCE .ROUTE; Start 02/10/25 at 15:23; Stop 02/10/25 at 15:23; Status DC Heparin Sodium/ Sodium Chloride 500 ml @ As Directed STK-MED ONCE IV; Start 02/10/25 at 15:35; Stop 02/10/25 at 15:35; Status DC Fentanyl Citrate 100 mcg STK-MED ONCE .ROUTE; Start 02/10/25 at 15:39; Stop 02/10/25 at 15:40; Status DC Midazolam HCl 2 mg STK-MED ONCE .ROUTE; Start 02/10/25 at 15:40; Stop 02/10/25 at 15:40; Status DC Bivalirudin 250 mg STK-MED ONCE IV; Start 02/10/25 at 16:15; Stop 02/10/25 at 16:15; Status DC Heparin Sodium (Porcine) 7,000 unit ONCE ONCE IV Last administered on 02/11/25at 05:46; Start 02/11/25 at 05:30; Stop 02/11/25 at 05:31; Status DC Heparin Sodium/ Dextrose 250 ml @ 0 mls/hr Q6H IV Last administered on 02/13/25at 13:01; Start 02/11/25 at 06:30; Stop 02/14/25 at 09:59; Status DC Clopidogrel Bisulfate 75 mg DAILY PO; Start 02/11/25 at 09:00; Stop 02/11/25 at 07:28; Status DC Insulin Glargine 15 units DAILY08 SQ Last administered on 02/12/25at 08:54; Start 02/11/25 at 08:00; Stop 02/13/25 at 05:24; Status DC Furosemide 20 mg DAILY PO Last administered on 02/13/25at 10:52; Start 02/11/25 at 09:00; Stop 02/14/25 at 09:59; Status DC Insulin Human Regular 3 unit TIDAC SQ Last administered on 02/12/25at 16:31; Start 02/12/25 at 07:30; Stop 02/14/25 at 09:59; Status DC Metoprolol Tartrate 12.5 mg BID PO Last administered on 02/14/25at 06:44; Start 02/12/25 at 09:00; Stop 02/14/25 at 09:59; Status DC Potassium Chloride 40 meq BID ONCE PO; Start 02/12/25 at 21:00; Stop 02/12/25 at 21:01; Status DC Magnesium Chloride 64 mg Q8H6 ONCE PO; Start 02/12/25 at 14:00; Stop 02/12/25 at 14:01; Status DC Heparin Sodium (Porcine) *calculation based on ACTUAL B... AD PRN IV Last administered on 02/12/25at 20:16; Start 02/12/25 at 21:00; Stop 02/14/25 at 09:59; Status DC Insulin Glargine 12 units DAILY08 SQ Last administered on 02/13/25at 10:51; Start 02/13/25 at 08:00; Stop 02/14/25 at 09:59; Status DC Cefazolin Sodium 2 gm ONCALL IVP Last administered on 02/14/25at 08:50; Start 02/13/25 at 20:00; Stop 02/14/25 at 18:51; Status DC Epinephrine HCl 10 mg/Sodium Chloride 250 ml @ 0 mls/hr AD PRN IV Last administered on 02/20/25at 17:32; Start 02/14/25 at 06:30; Stop 03/16/25 at 06:29 Norepinephrine Bitartrate 250 ml @ 0 mls/hr AD PRN IV Last administered on 02/17/25at 01:06; Start 02/14/25 at 06:30; Stop 03/16/25 at 06:29 Aminocaproic Acid 68207 mg/Sodium Chloride 480 ml @ 0 mls/hr AD PRN IV; Start 02/14/25 at 06:30; Stop 02/23/25 at 11:52; Status DC Epinephrine HCl 10 mg/Sodium Chloride 250 ml @ 0 mls/hr AD PRN IV; Start 02/14/25 at 07:00; Stop 02/14/25 at 06:51; Status DC Norepinephrine Bitartrate 250 ml @ 0 mls/hr AD PRN IV; Start 02/14/25 at 07:00; Stop 02/14/25 at 06:51; Status DC Aminocaproic Acid 56100 mg/Sodium Chloride 480 ml @ 0 mls/hr AD PRN IV; Start 02/14/25 at 07:00; Stop 02/14/25 at 06:51; Status DC Cefazolin Sodium 2 gm STK-MED ONCE .ROUTE; Start 02/14/25 at 06:53; Stop 02/14/25 at 06:53; Status DC Nitroglycerin/ Dextrose 1 ml @ As Directed STK-MED ONCE .ROUTE; Start 02/14/25 at 07:00; Stop 02/14/25 at 07:00; Status DC Cefazolin Sodium 1 gm STK-MED ONCE .ROUTE Last administered on 02/14/25at 10:09; Start 02/14/25 at 07:37; Stop 02/14/25 at 07:38; Status DC Heparin Sodium/ Sodium Chloride 500 ml @ As Directed STK-MED ONCE IV; Start 02/14/25 at 07:38; Stop 02/14/25 at 07:38; Status DC Papaverine HCl 60 mg STK-MED ONCE .ROUTE Last administered on 02/14/25at 10:10; Start 02/14/25 at 07:38; Stop 02/14/25 at 07:38; Status DC Midazolam HCl 2 mg STK-MED ONCE .ROUTE; Start 02/14/25 at 08:14; Stop 02/14/25 at 08:14; Status DC Ketamine HCl 500 mg STK-MED ONCE IJ; Start 02/14/25 at 08:16; Stop 02/14/25 at 08:16; Status DC Protamine Sulfate 250 mg STK-MED ONCE IV; Start 02/14/25 at 08:17; Stop 02/14/25 at 08:17; Status DC Lidocaine HCl 100 mg STK-MED ONCE .ROUTE; Start 02/14/25 at 08:17; Stop 02/14/25 at 08:17; Status DC Heparin Sodium (Porcine) 10,000 unit STK-MED ONCE .ROUTE; Start 02/14/25 at 08:17; Stop 02/14/25 at 08:17; Status DC Epinephrine HCl 1 mg STK-MED ONCE .ROUTE; Start 02/14/25 at 08:17; Stop 02/14/25 at 08:17; Status DC Sodium Bicarbonate 200 ml @ As Directed STK-MED ONCE .ROUTE; Start 02/14/25 at 08:17; Stop 02/14/25 at 08:17; Status DC Norepinephrine Bitartrate 4 mg STK-MED ONCE IV; Start 02/14/25 at 08:17; Stop 02/14/25 at 08:17; Status DC Propofol 200 mg STK-MED ONCE IV; Start 02/14/25 at 08:19; Stop 02/14/25 at 08:19; Status DC Fentanyl Citrate 1,000 mcg STK-MED ONCE IJ; Start 02/14/25 at 08:19; Stop 02/14/25 at 08:19; Status DC Midazolam HCl 2 mg STK-MED ONCE .ROUTE; Start 02/14/25 at 08:20; Stop 02/14/25 at 08:20; Status DC Rocuronium [place] 50 mg STK-MED ONCE .ROUTE; Start 02/14/25 at 08:20; Stop 02/14/25 at 08:20; Status DC Acetaminophen 1,000 mg Q6H6 IV Last administered on 02/15/25at 12:14; Start 02/14/25 at 14:00; Stop 02/15/25 at 13:59; Status DC Aspirin 81 mg ONCE ONCE NG Last administered on 02/14/25at 13:56; Start 02/14/25 at 14:00; Stop 02/14/25 at 14:01; Status DC Docusate Sodium 100 mg BID PO Last administered on 02/27/25at 12:14; Start 02/14/25 at 21:00; Stop 03/16/25 at 20:59 Lactulose 20 gm BID PRN PO; Start 02/14/25 at 10:00; Stop 03/16/25 at 09:59 Furosemide 20 mg Q12H PO Last administered on 02/16/25at 08:19; Start 02/16/25 at 09:00; Stop 02/16/25 at 10:21; Status DC Furosemide 20 mg Q12H IV Last administered on 02/15/25at 20:16; Start 02/15/25 at 09:00; Stop 02/16/25 at 08:59; Status DC Atorvastatin Calcium 40 mg HS PO Last administered on 02/26/25at 20:22; Start 02/14/25 at 21:00; Stop 03/16/25 at 20:59 Enoxaparin Sodium 30 mg DAILY SQ Last administered on 02/27/25at 12:15; Start 02/17/25 at 09:00; Stop 03/19/25 at 08:59 Metoprolol Tartrate 12.5 mg BID PO; Start 02/16/25 at 09:00; Stop 02/20/25 at 09:01; Status DC Magnesium Hydroxide 30 ml DAILY PRN PO; Start 02/14/25 at 10:00; Stop 03/16/25 at 09:59 Dexmedetomidine/ Sodium Chloride 400 mcg PROTOCOL IV; Start 02/14/25 at 10:00; Stop 02/15/25 at 09:59; Status DC Acetaminophen 650 mg Q6H PRN PO; Start 02/14/25 at 10:00; Stop 03/16/25 at 09:59 Heparin Sodium (Porcine) 10,000 unit STK-MED ONCE .ROUTE; Start 02/14/25 at 10:00; Stop 02/14/25 at 10:00; Status DC Sodium Chloride 1,000 ml @ 10 mls/hr ONCE IV; Start 02/14/25 at 10:00; Stop 02/15/25 at 09:59; Status DC Sodium Chloride 10 ml Q8H PRN IVP; Start 02/14/25 at 10:00; Stop 03/16/25 at 09:59 Morphine Sulfate 0.5 mg Q2H PRN IV; Start 02/14/25 at 10:00; Stop 02/15/25 at 09:59; Status DC Morphine Sulfate 1 mg Q2H PRN IV Last administered on 02/14/25at 14:23; Start 02/14/25 at 10:30; Stop 02/19/25 at 13:29; Status DC Acetaminophen 650 mg Q4H PRN RC; Start 02/14/25 at 10:00; Stop 02/23/25 at 11:52; Status DC Ondansetron HCl 4 mg Q6H PRN IV; Start 02/14/25 at 10:00; Stop 03/16/25 at 09:59 Sodium Chloride 500 ml @ 0 mls/hr AD IV; Start 02/14/25 at 10:00; Stop 03/16/25 at 09:59 Nitroglycerin/ Dextrose 0 ml @ 0 mls/hr AD IV; Start 02/14/25 at 10:00; Stop 02/17/25 at 09:59; Status DC Propofol 100 ml @ 0 mls/hr AD PRN IV; Start 02/14/25 at 10:00; Stop 02/18/25 at 09:59; Status DC Norepinephrine Bitartrate 8 mg/ Dextrose 250 ml @ 0 mls/hr AD PRN IV; Start 02/14/25 at 10:00; Stop 02/14/25 at 10:14; Status DC Epinephrine HCl 10 mg/Sodium Chloride 250 ml @ 0 mls/hr AD PRN IV; Start 02/14/25 at 10:00; Stop 02/14/25 at 10:14; Status DC Aminocaproic Acid 53491 mg/Sodium Chloride 310 ml @ 25 mls/hr AD IV; Start 02/14/25 at 10:00; Stop 02/14/25 at 10:19; Status DC Calcium Gluconate 1 gm/Sodium Chloride 60 ml @ 200 mls/hr AD PRN IV Last administered on 02/21/25at 08:36; Start 02/14/25 at 10:00; Stop 03/16/25 at 09:59 Magnesium Sulfate 50 ml @ 12.5 mls/hr AD PRN IV Last administered on 02/24/25at 08:17; Start 02/14/25 at 10:00; Stop 03/16/25 at 09:59 Potassium Chloride 100 ml @ 100 mls/hr AD PRN IV Last administered on 02/21/25at 16:43; Start 02/14/25 at 10:00; Stop 03/16/25 at 09:59 Potassium Phosphate 250 ml @ 42 mls/hr AD PRN IV; Start 02/14/25 at 10:00; Stop 03/16/25 at 09:59 Albumin Human 250 ml @ 0 mls/hr AD PRN IV Last administered on 02/14/25at 14:42; Start 02/14/25 at 10:00; Stop 02/14/25 at 14:42; Status DC Acetaminophen 650 mg Q4H PRN PO; Start 02/14/25 at 10:00; Stop 03/16/25 at 09:59 Insulin Human Regular 100 unit/ Sodium Chloride 100 ml @ 0 mls/hr AD IV Last administered on 02/15/25at 06:30; Start 02/14/25 at 10:00; Stop 02/16/25 at 09:59; Status DC Cefazolin Sodium 2 gm Q8H IVPB Last administered on 02/15/25at 06:25; Start 02/14/25 at 15:00; Stop 02/15/25 at 07:01; Status DC Tramadol HCl 25 mg Q6H PRN PO; Start 02/14/25 at 10:00; Stop 02/19/25 at 09:59; Status DC Tramadol HCl 50 mg Q6H PRN PO; Start 02/14/25 at 10:00; Stop 02/19/25 at 09:59; Status DC Famotidine 20 mg BID IV Last administered on 02/15/25at 20:15; Start 02/14/25 at 21:00; Stop 02/16/25 at 07:58; Status DC Sodium Bicarbonate 50 meq AD PRN IV Last administered on 02/16/25at 15:25; Start 02/14/25 at 10:00; Stop 02/17/25 at 09:59; Status DC Dextrose 50 ml AD PRN IV; Start 02/14/25 at 10:00; Stop 03/16/25 at 09:59 Glucagon 1 mg AD PRN IM; Start 02/14/25 at 10:00; Stop 03/16/25 at 09:59 Dobutamine HCl 250 mg STK-MED ONCE .ROUTE; Start 02/14/25 at 10:28; Stop 02/14/25 at 10:28; Status DC Sodium Bicarbonate 50 ml @ As Directed STK-MED ONCE .ROUTE; Start 02/14/25 at 10:52; Stop 02/14/25 at 10:52; Status DC Sodium Bicarbonate 200 ml @ As Directed STK-MED ONCE .ROUTE; Start 02/14/25 at 10:53; Stop 02/14/25 at 10:53; Status DC Vasopressin 20 units STK-MED ONCE .ROUTE; Start 02/14/25 at 11:51; Stop 02/14/25 at 11:51; Status DC Rocuronium [place] 50 mg STK-MED ONCE .ROUTE; Start 02/14/25 at 12:14; Stop 02/14/25 at 12:14; Status DC Sodium Bicarbonate 100 ml @ As Directed STK-MED ONCE .ROUTE; Start 02/14/25 at 12:16; Stop 02/14/25 at 12:16; Status DC Vasopressin 40 units/Sodium Chloride 40 ml @ 0 mls/hr PROTOCOL IV Last administered on 02/14/25at 22:11; Start 02/14/25 at 13:00; Stop 03/16/25 at 12:59 Albumin Human 250 ml @ 0 mls/hr AD IV Last administered on 02/18/25at 10:27; Start 02/14/25 at 15:30; Stop 02/18/25 at 10:40; Status DC Calcium Gluconate 2 gm/Sodium Chloride 100 ml @ 0 mls/hr ONCE ONCE IV Last administered on 02/14/25at 16:15; Start 02/14/25 at 16:30; Stop 02/14/25 at 16:31; Status DC Pharmacy Profile Note 1 each ONCE MISC; Start 02/14/25 at 18:00; Stop 02/14/25 at 18:27; Status DC Sodium Bicarbonate 25 meq/Dextrose 1,025 ml @ 0 mls/hr Q0M IV Last administered on 02/18/25at 13:03; Start 02/14/25 at 18:00; Stop 03/16/25 at 17:59 Famotidine 20 mg BID PO Last administered on 02/16/25at 20:03; Start 02/16/25 at 09:00; Stop 02/17/25 at 07:09; Status DC Insulin Human Regular INSULIN SLIDING SCAL... ACHS SQ Last administered on 02/27/25at 17:30; Start 02/16/25 at 11:30; Stop 03/18/25 at 11:29 Cefepime HCl 1 gm Q12H IVPB Last administered on 02/19/25at 22:54; Start 02/16/25 at 10:30; Stop 02/20/25 at 08:16; Status DC Furosemide 100 mg/ Sodium Chloride 100 ml @ 0 mls/hr PROTOCOL IV Last administered on 02/19/25at 11:35; Start 02/16/25 at 10:30; Stop 02/20/25 at 09:01; Status DC Vancomycin HCl 500 ml @ 250 mls/hr ONCE ONCE IV Last administered on 02/16/25at 11:39; Start 02/16/25 at 12:00; Stop 02/16/25 at 13:59; Status DC Sodium Chloride 4 ml STK-MED ONCE IH Last administered on 02/16/25at 10:53; Start 02/16/25 at 10:44; Stop 02/16/25 at 10:44; Status DC Sodium Chloride 4 ml STK-MED ONCE IH Last administered on 02/16/25at 14:33; Start 02/16/25 at 14:26; Stop 02/16/25 at 14:26; Status DC Sodium Chloride 4 ml STK-MED ONCE IH Last administered on 02/16/25at 19:16; Start 02/16/25 at 18:32; Stop 02/16/25 at 18:32; Status DC Famotidine 20 mg DAILY PO Last administered on 02/27/25at 12:14; Start 02/17/25 at 09:00; Stop 03/18/25 at 08:59 Latanoprost 1 DROP FOR EACH EYE HS OP Last administered on 02/26/25at 20:37; Start 02/17/25 at 21:00; Stop 03/19/25 at 20:59 Home Med (Brimonidine-Timolol 0.2%/0.5% EYE DROPS) DAILY OP Last administered on 02/27/25at 12:16; Start 02/18/25 at 09:00; Stop 03/20/25 at 08:59 Albumin Human 250 ml @ 0 mls/hr AD IV; Start 02/18/25 at 10:30; Stop 02/20/25 at 09:03; Status DC Vancomycin HCl 1 each AD IV; Start 02/18/25 at 11:00; Stop 02/24/25 at 12:15; Status DC Vancomycin HCl 250 ml @ 125 mls/hr Q12H IV Last administered on 02/19/25at 11:20; Start 02/18/25 at 11:30; Stop 02/21/25 at 05:33; Status DC Potassium Chloride 20 meq BID PO Last administered on 02/27/25at 12:28; Start 02/19/25 at 10:30; Stop 03/21/25 at 10:29 Dexmedetomidine/ Sodium Chloride 400 mcg STK-MED ONCE IV Last administered on 02/20/25at 07:08; Start 02/20/25 at 07:00; Stop 02/20/25 at 07:00; Status DC Dexmedetomidine/ Sodium Chloride 400 mcg PROTOCOL IV Last administered on 02/22/25at 05:51; Start 02/20/25 at 07:30; Stop 02/22/25 at 15:01; Status DC Carvedilol 3.125 mg BID PO; Start 02/20/25 at 21:00; Stop 02/24/25 at 06:13; Status DC Spironolactone 25 mg DAILY PO Last administered on 02/27/25at 12:14; Start 02/20/25 at 09:00; Stop 03/22/25 at 08:59 Empaglifozin 10 mg DAILY PO Last administered on 02/22/25at 09:38; Start 02/20/25 at 09:00; Stop 02/22/25 at 15:01; Status DC Albumin Human 50 ml @ 0 mls/hr Q12H9 IV Last administered on 02/24/25at 08:15; Start 02/20/25 at 09:00; Stop 02/24/25 at 08:42; Status DC Furosemide 20 mg Q12H IV Last administered on 02/25/25at 21:27; Start 02/20/25 at 09:00; Stop 02/26/25 at 09:43; Status DC Pharmacy Profile Note 1 each ONCE MISC; Start 02/20/25 at 11:30; Stop 02/20/25 at 11:19; Status DC Piperacillin Sod/ Tazobactam Sod 50 ml @ 12.5 mls/hr Q8H IVPB Last administered on 02/24/25at 11:45; Start 02/20/25 at 11:30; Stop 02/24/25 at 18:10; Status DC Vancomycin HCl 250 ml @ 125 mls/hr Q24H IV Last administered on 02/23/25at 06:28; Start 02/21/25 at 06:00; Stop 02/24/25 at 05:57; Status DC Insulin Glargine 10 units DAILY SQ Last administered on 02/22/25at 11:54; Start 02/21/25 at 09:00; Stop 02/22/25 at 19:17; Status DC Calcium Gluconate 1 gm STK-MED ONCE .ROUTE; Start 02/21/25 at 08:34; Stop 02/21/25 at 08:34; Status DC Etomidate 20 mg STK-MED ONCE .ROUTE; Start 02/21/25 at 12:27; Stop 02/21/25 at 12:28; Status DC Fentanyl Citrate 100 mcg STK-MED ONCE .ROUTE; Start 02/21/25 at 12:30; Stop 02/21/25 at 12:30; Status DC Rocuronium [place] 50 mg STK-MED ONCE .ROUTE; Start 02/21/25 at 12:30; Stop 02/21/25 at 12:30; Status DC Lidocaine HCl 20 ml STK-MED ONCE .ROUTE; Start 02/21/25 at 12:31; Stop 02/21/25 at 12:31; Status DC Cefazolin Sodium 1 gm STK-MED ONCE .ROUTE; Start 02/21/25 at 12:31; Stop 02/21/25 at 12:32; Status DC Bupivacaine HCl 2.5 mg STK-MED ONCE IJ; Start 02/21/25 at 12:32; Stop 02/21/25 at 12:32; Status DC Propofol 200 mg STK-MED ONCE IV; Start 02/21/25 at 12:35; Stop 02/21/25 at 12:35; Status DC Lidocaine HCl 100 mg STK-MED ONCE .ROUTE; Start 02/21/25 at 12:46; Stop 02/21/25 at 12:46; Status DC Cefazolin Sodium 1 gm STK-MED ONCE .ROUTE; Start 02/21/25 at 12:51; Stop 02/21/25 at 12:51; Status DC Rocuronium [place] 50 mg STK-MED ONCE .ROUTE; Start 02/21/25 at 13:03; Stop 02/21/25 at 13:03; Status DC Cefazolin Sodium 2 gm STK-MED ONCE IVPB Last administered on 02/21/25at 12:53; Start 02/21/25 at 12:53; Stop 02/21/25 at 14:14; Status DC Lidocaine HCl 20 ml STK-MED ONCE INJ Last administered on 02/21/25at 12:18; Start 02/21/25 at 12:18; Stop 02/21/25 at 14:14; Status DC Bupivacaine HCl 75 mg STK-MED ONCE IJ Last administered on 02/21/25at 12:18; Start 02/21/25 at 12:18; Stop 02/21/25 at 14:14; Status DC Insulin Glargine 12 units DAILY SQ Last administered on 02/27/25at 17:30; Start 02/23/25 at 09:00; Stop 03/25/25 at 08:59 Dexmedetomidine/ Sodium Chloride 400 mcg PROTOCOL IV Last administered on 02/23/25at 00:17; Start 02/23/25 at 00:00; Stop 03/25/25 at 00:00 Midodrine 10 mg TID PO Last administered on 02/27/25at 17:21; Start 02/23/25 at 14:00; Stop 03/25/25 at 13:59 Prednisone 20 mg DAILY PO Last administered on 02/26/25at 09:50; Start 02/23/25 at 12:30; Stop 02/26/25 at 13:00; Status DC Vancomycin HCl 250 ml @ 125 mls/hr Q24H IV Last administered on 02/24/25at 06:26; Start 02/24/25 at 06:30; Stop 02/24/25 at 12:15; Status DC Carvedilol 3.125 mg BID PO Last administered on 02/27/25at 12:18; Start 02/24/25 at 09:00; Stop 03/26/25 at 08:59 Empaglifozin 10 mg DAILY PO Last administered on 02/24/25at 08:47; Start 02/24/25 at 09:00; Stop 02/24/25 at 13:01; Status DC Piperacillin Sod/ Tazobactam Sod 50 ml @ 12.5 mls/hr Q8H6 IVPB Last administered on 02/27/25at 17:20; Start 02/24/25 at 22:00; Stop 03/06/25 at 21:59 Furosemide 40 mg Q12H IV Last administered on 02/27/25at 12:15; Start 02/26/25 at 10:00; Stop 03/28/25 at 09:59 EUGENE ZARATE MD Feb 27, 2025 19:38
--- NOTE | 2025-02-27 21:43 | PN ---
INFECTIOUS DISEASE PROGRESS NOTE Date of Service: Feb 27, 2025 SUBJECTIVE: This 74-year-old male patient who was seen and examined at bedside in room 223. Patient is s/p surgical removal of Impella on 2024. We will continue on Zosyn. Patient's present at bedside. During rounding today patient has been referred to [facility] and pending insurance authorization. PHYSICAL EXAM EYES: Anicteric. Pupils equal and reactive. HENT: No oral thrush seen, moist Oral mucosa. NECK: Supple, no JVD or thyromegaly. LUNGS: Diminished breath sounds. Oxygen support via nasal cannula. CHEST: Sternal incision. CARDIOVASCULAR: S1, S2 regular. No murmur heard. ABDOMEN: Soft, non tender, bowel sounds present. CENTRAL NERVOUS SYSTEM: Awake, alert, oriented. SKIN: No rashes, no swelling. Vein harvesting surgical incisions to bilateral lower extremities.. LYMPHATICS: No peripheral lymphadenopathy. MUSCULOSKELETAL: No joint swelling, erythema or tenderness. EXTREMITIES: No cyanosis or clubbing. 1+ edema to bilateral feet, improved. BACK: No deformity, no pressure ulcer. GENITOURINARY: No dysuria or hematuria. Vital Sign (Last 12 Hours) 02/27/25 02/27/25 02/27/25 02/27/25 12:00 12:18 16:00 19:17 Temp 97.7 98.1 97.5 Pulse 69 69 68 Resp 18 18 18 B/P (MAP) 95/58 95/58 111/63 93/54 Pulse Ox 95 97 97 O2 Delivery Room Air Room Air Room Air FiO2 21 21 02/27/25 21:06 B/P (MAP) 93/54 Intake & Output (last 24hrs) 02/26/25 02/26/25 02/27/25 15:00 23:00 07:00 Intake Total 350.0 ml 50.0 ml Output Total 350 ml 600 ml Balance 0 ml -550.0 ml LABS: Laboratory: Test 02/27/25 19:51 02/27/25 15:34 02/27/25 07:45 02/27/25 05:22 Range/Units Whole Blood Glucose 200 H 70-110 MG/DL Bedside Glucose Comment Notified Nurse Iron Level 61 L 65-175 mcg/dL Total Iron Binding Capacity 154 L 250-450 mcg/dL Percent Iron Saturation 39.6 30-44 % White Blood Count 16.9 H 4.8-10.8 K/uL Red Blood Count 3.30 L 4.50-6.20 MIL/uL Hemoglobin 9.7 L 14.0-18.0 g/dL Hematocrit 29.4 L 42-54 % Mean Corpuscular Volume 89.1 79-99 fL Mean Corpuscular Hemoglobin 29.4 27.0-33.0 pg Mean Corpuscular Hemoglobin Concent 33.0 32.0-36.0 g/dL Red Cell Distribution Width 16.0 H 11.0-15.5 % Platelet Count 470 H 130-400 K/uL Mean Platelet Volume 10.0 7.5-10.5 fL Immature Granulocyte % (Auto) 1.7 H 0-1 % Neutrophils (%) (Auto) 71.5 40.0-77.0 % Lymphocytes (%) (Auto) 17.2 L 21.0-51.0 % Monocytes (%) (Auto) 9.2 3.0-13.0 % Eosinophils (%) (Auto) 0.1 0.0-8.0 % Basophils (%) (Auto) 0.3 0.0-5.0 % Neutrophils # (Auto) 12.1 H 1.8-7.7 K/uL Lymphocytes # (Auto) 2.9 1.0-4.8 K/uL Monocytes # (Auto) 1.6 H 0.1-1.0 K/uL Eosinophils # (Auto) 0.02 0.00-0.70 K/uL Basophils # (Auto) 0.05 0.00-0.20 K/uL Absolute Immature Granulocyte (auto 0.28 0-1 K/uL Nucleated Red Blood Cells 0.1 0.0-0.19 % Sodium Level 138 136-145 mmol/L Potassium Level 3.9 3.5-5.1 mmol/L Chloride Level 101 101-111 mmol/L Carbon Dioxide Level 28 21-32 mmol/L Blood Urea Nitrogen 22 H 7-18 mg/dL Creatinine 1.1 0.5-1.3 mg/dL Glomerular Filtration Rate Calc 70 >90 mL/min Random Glucose 146 H 70-105 mg/dL Total Calcium 8.4 L 8.5-10.1 mg/dL Magnesium Level 2.00 1.80-2.40 mg/dL Test 02/26/25 03:11 Range/Units Total Bilirubin 1.3 H 0.2-1.0 mg/dL Aspartate Amino Transf (AST/SGOT) 18 10-37 U/L Alanine Aminotransferase (ALT/SGPT) 15 12-78 U/L Alkaline Phosphatase 57 50-136 U/L Total Protein 5.9 L 6.0-8.3 g/dL Albumin 3.0 L 3.5-5.0 g/dL ASSESSMENT: Hospital-acquired pneumonia. Leukocytosis. 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 Postop anemia. Left Pleural effusion. Diabetes mellitus. Congestive heart failure. PLAN: Continue on Zosyn. Continue GI prophylaxis. Continue diuretics Monitor electrolytes. Continue oxygen support. Continue physical therapy. Patient has been referred to [facility]. This case was reviewed and discussed with my supervising physician Dr. Harrell and the above assessment and plan was formulated and agreed upon. ATTESTATION BY PHYSICIAN I have seen and examined the patient. I reviewed the documentation, medical decision making, and treatment plan as noted by the mid-level provider above. I agree with the findings and plan of care. BERENICE HARRELL MD, [facility] Feb 27, 2025 21:42
--- NOTE | 2025-02-27 21:59 | HMCIMG ---
STUDY: X-RAY OF THE CHEST, 1 VIEW HISTORY: Follow-up after thoracentesis. TECHNIQUE: A single frontal view of the chest is submitted for interpretation. COMPARISON: Chest radiograph from 02/26/2025 at 20:12. FINDINGS: Pulmonary heck: Stable small left basilar airspace opacity adjacent to the left hemidiaphragm, compatible with atelectasis adjacent to a small pleural effusion. The right lung remains clear without focal consolidation. Cardiac silhouette: Cardiac size is within normal limits and unchanged. Mediastinum and renzo: Mediastinal contours and hilar structures are within normal limits without new widening or mass. Median sternotomy wires are again noted. Osseous structures: Visualized ribs, clavicles, scapulae, and thoracic spine demonstrate no acute or aggressive osseous abnormality. Miscellaneous: Stable small left pleural effusion. No pneumothorax is identified. Costophrenic angles on the right are sharp. IMPRESSION: * Compared with the chest radiograph from 02/26/2025 at 20:12, there is a stable small left pleural effusion with adjacent left basilar atelectasis following thoracentesis, without evidence of pneumothorax. * Clear right lung and stable post-sternotomy cardiac and mediastinal contours, without new acute cardiopulmonary abnormality. /[place]
[2025-02-27 23:23] VITALS: BP 99/67; PULSE 64; RESP 18; TEMP 98.6
[2025-02-28] VITALS (7 sets, daily range): BP systolic 90–106; BP diastolic 52–61; PULSE 67–73; RESP 18; TEMP 97.7–98.8; O2SAT 98
[2025-02-28 05:49] LABS: IMMATURE GRANULOCYTE ABSOLUTE 0.26 K/uL (0-1); NUCLEATED RED BLOOD CELLS 0.2 % (0.0-0.19); PLATELET COUNT (AUTO) 474 K/uL (130-400); RED BLOOD CELL COUNT(AUTO) 3.63 MIL/uL (4.50-6.20); RED CELL DISTRIBUTION WIDTH 16.7 % (11.0-15.5); WHITE BLOOD COUNT (AUTO) 14.7 K/uL (4.8-10.8)
[2025-02-28 06:05] LABS: CREATININE 1.2 mg/dL (0.5-1.3); GLOMERULAR FILTR. RATE CALC 63.0 mL/min (>90); GLUCOSE,RANDOM 150.0 mg/dL (70-105); SODIUM SERUM 138.0 mmol/L (136-145); UREA NITROGEN, BLOOD 26.0 mg/dL (7-18)
--- NOTE | 2025-02-28 06:12 | PN ---
SUBJECTIVE: Status post CABG on 02/14, coursing postoperative day #13. He had an Impella of 5.5 to support him through the preoperative period. Since the patient had depressed ventricular function, ejection fraction 20% after a large anterolateral infarction, his Impella has been removed. OBJECTIVE: GENERAL: He is awake, alert, in no acute distress. HEART: Regular rate and rhythm. CHEST: Sternum is healed. LUNGS: Clear. EXTREMITIES: Pulses were present. With stasis venous ulcers, which are being cared for by wound care. ASSESSMENT: 1. Cardiac: The Impella was removed. Ejection fraction is about 20%. We will plan for possible AICD, possible LifeVest. 2. Fluid overload, Lasix 20 mg twice a day. 3. Dyslipidemia, Lipitor 40 mg once a day. PLAN: OT, PT, cardiac rehab. TID: [id number] RECEIPT: [id number]
--- NOTE | 2025-02-28 13:19 | PN ---
1. Non-STEMI. 2. Status post 3v CABG ( [id number] ) with left atrial appendage clipping with insertion of IABP and Impella 02/14/2025. 3. Ischemic cardiomyopathy. 4. Postoperative blood loss anemia. 5. Type 2 diabetes mellitus. 6. History of CVA. 7. Acute systolic heart failure with anterior infarct and 25-30% ejection fraction Patient offers no symptomatic complaints, denies shortness of breath or cough or orthopnea, denies chest pain or chest pressure and is eager to depart for rehab. Physical exam shows an overweight patient with no JVD, no rales or rhonchi, nonlabored respiration, normal S1 and S2, regular rhythm and no edema. Current renal indices are mildly prerenal and most recent chest x-ray showed clear lungs. Patient's premorbid EF was 40%, lowest EF around 15%, most recent EF 25-30%; after revascularization patient with low EF probably does have increased risk of [id number] arrest, but his long-term risk we will be defined by whether he continues to show improvement in EF. High probability that his final EF will be 35 or greater, so implantable defibrillator is not currently appropriate. Patient should be discharged with a life vest and in three months we should reassess ventricular function on an outpatient basis. Vitals/Labs Vital Signs Date Time Temp Pulse Resp B/P (MAP) Pulse Ox O2 Delivery O2 Flow Rate FiO2 02/28/25 12:00 98.1 70 18 94/53 98 Room Air 21 02/27/25 08:00 0 Laboratory Tests 02/28/25 05:34 Medications Current Medications Sodium Chloride 1,000 ml @ 0 mls/hr ONCE ONCE IV; Start 02/10/25 at 01:00; Stop 02/10/25 at 00:46; Status DC Sodium Chloride 500 ml @ 0 mls/hr ONCE ONCE IV Last administered on 02/10/25at 00:53; Start 02/10/25 at 01:00; Stop 02/10/25 at 01:01; Status DC Insulin Human Regular 5 unit ONCE ONCE IV Last administered on 02/10/25at 01:30; Start 02/10/25 at 01:30; Stop 02/10/25 at 01:31; Status DC Aspirin 325 mg ONCE ONCE PO Last administered on 02/10/25at 02:32; Start 02/10/25 at 02:30; Stop 02/10/25 at 02:31; Status DC Heparin Sodium/ Dextrose 250 ml @ 0 mls/hr PROTOCOL IV Last administered on 02/10/25at 03:00; Start 02/10/25 at 03:00; Stop 02/10/25 at 17:22; Status DC Heparin Sodium (Porcine) 7,000 unit ONCE ONCE SQ Last administered on 02/10/25at 02:55; Start 02/10/25 at 03:00; Stop 02/10/25 at 03:01; Status DC Acetaminophen 650 mg Q6H PRN PO Last administered on 02/12/25at 17:13; Start 02/10/25 at 05:00; Stop 02/14/25 at 10:17; Status DC Acetaminophen 650 mg Q4H PRN PO; Start 02/10/25 at 05:00; Stop 02/14/25 at 10:05; Status DC Ondansetron HCl 4 mg Q6H PRN IV; Start 02/10/25 at 05:00; Stop 02/14/25 at 10:17; Status DC Nitroglycerin 0.4 mg PROTOCOL PRN SL; Start 02/10/25 at 05:00; Stop 02/14/25 at 09:59; Status DC Famotidine 20 mg DAILY PO Last administered on 02/13/25at 10:53; Start 02/10/25 at 09:00; Stop 02/14/25 at 09:59; Status DC Sodium Chloride 1,000 ml @ 100 mls/hr Q10H IV Last administered on 02/10/25at 14:20; Start 02/10/25 at 05:00; Stop 02/10/25 at 17:22; Status DC Insulin Human Regular INSULIN SLIDING SCAL... Q4H SQ Last administered on 02/10/25at 09:15; Start 02/10/25 at 05:00; Stop 02/10/25 at 11:10; Status DC Dextrose 50 ml AD PRN IV; Start 02/10/25 at 05:00; Stop 02/14/25 at 10:17; Status DC Glucagon 1 mg AD PRN IM; Start 02/10/25 at 05:00; Stop 02/14/25 at 10:17; Status DC Magnesium Sulfate 50 ml @ 0 mls/hr PROTOCOL PRN IV Last administered on 02/12/25at 07:13; Start 02/10/25 at 05:00; Stop 02/14/25 at 10:17; Status DC Potassium Chloride 100 ml @ 100 mls/hr AD PRN IV Last administered on 02/15/25at 05:43; Start 02/10/25 at 05:00; Stop 02/15/25 at 06:27; Status DC Potassium Chloride 20 meq AD PRN PO Last administered on 02/25/25at 09:30; Start 02/10/25 at 05:00; Stop 03/12/25 at 04:59 Potassium Chloride 20 meq AD PRN PO Last administered on 02/18/25at 20:18; Start 02/10/25 at 05:00; Stop 03/12/25 at 04:59 Aspirin 81 mg DAILY PO Last administered on 02/28/25at 09:46; Start 02/10/25 at 09:00; Stop 03/12/25 at 08:59 Insulin Human Regular INSULIN SLIDING SCAL... Q6H6 SQ Last administered on 02/11/25at 17:29; Start 02/10/25 at 12:00; Stop 02/14/25 at 09:59; Status DC Clopidogrel Bisulfate 600 mg ONCE PO Last administered on 02/10/25at 14:19; Start 02/10/25 at 14:00; Stop 02/10/25 at 17:22; Status DC Aspirin 325 mg ONCE PO Last administered on 02/10/25at 14:32; Start 02/10/25 at 14:30; Stop 02/10/25 at 17:22; Status DC Sacubitril/ Valsartan 0.5 each BID PO Last administered on 02/13/25at 21:11; Start 02/10/25 at 21:00; Stop 02/14/25 at 09:59; Status DC Empaglifozin 10 mg DAILY PO Last administered on 02/13/25at 10:52; Start 02/10/25 at 14:30; Stop 02/14/25 at 09:59; Status DC Spironolactone 25 mg DAILY PO Last administered on 02/13/25at 10:52; Start 02/10/25 at 14:30; Stop 02/14/25 at 09:59; Status DC Furosemide 20 mg ONCE IV Last administered on 02/10/25at 17:00; Start 02/10/25 at 17:00; Stop 02/10/25 at 21:00; Status DC Furosemide 20 mg ONCE IV; Start 02/11/25 at 09:00; Stop 02/11/25 at 07:43; Status DC Lidocaine HCl 20 ml STK-MED ONCE .ROUTE; Start 02/10/25 at 15:22; Stop 02/10/25 at 15:23; Status DC Iohexol 35,000 mg STK-MED ONCE IV; Start 02/10/25 at 15:22; Stop 02/10/25 at 15:23; Status DC Iohexol 50 ml STK-MED ONCE IV; Start 02/10/25 at 15:22; Stop 02/10/25 at 15:23; Status DC Heparin Sodium (Porcine) 10,000 unit STK-MED ONCE .ROUTE; Start 02/10/25 at 15:23; Stop 02/10/25 at 15:23; Status DC Heparin Sodium/ Sodium Chloride 1,000 ml @ As Directed STK-MED ONCE IV; Start 02/10/25 at 15:23; Stop 02/10/25 at 15:23; Status DC Nitroglycerin 50 mg STK-MED ONCE .ROUTE; Start 02/10/25 at 15:23; Stop 02/10/25 at 15:23; Status DC Heparin Sodium/ Sodium Chloride 500 ml @ As Directed STK-MED ONCE IV; Start 02/10/25 at 15:35; Stop 02/10/25 at 15:35; Status DC Fentanyl Citrate 100 mcg STK-MED ONCE .ROUTE; Start 02/10/25 at 15:39; Stop 02/10/25 at 15:40; Status DC Midazolam HCl 2 mg STK-MED ONCE .ROUTE; Start 02/10/25 at 15:40; Stop 02/10/25 at 15:40; Status DC Bivalirudin 250 mg STK-MED ONCE IV; Start 02/10/25 at 16:15; Stop 02/10/25 at 16:15; Status DC Heparin Sodium (Porcine) 7,000 unit ONCE ONCE IV Last administered on 02/11/25at 05:46; Start 02/11/25 at 05:30; Stop 02/11/25 at 05:31; Status DC Heparin Sodium/ Dextrose 250 ml @ 0 mls/hr Q6H IV Last administered on 02/13/25at 13:01; Start 02/11/25 at 06:30; Stop 02/14/25 at 09:59; Status DC Clopidogrel Bisulfate 75 mg DAILY PO; Start 02/11/25 at 09:00; Stop 02/11/25 at 07:28; Status DC Insulin Glargine 15 units DAILY08 SQ Last administered on 02/12/25at 08:54; Start 02/11/25 at 08:00; Stop 02/13/25 at 05:24; Status DC Furosemide 20 mg DAILY PO Last administered on 02/13/25at 10:52; Start 02/11/25 at 09:00; Stop 02/14/25 at 09:59; Status DC Insulin Human Regular 3 unit TIDAC SQ Last administered on 02/12/25at 16:31; Start 02/12/25 at 07:30; Stop 02/14/25 at 09:59; Status DC Metoprolol Tartrate 12.5 mg BID PO Last administered on 02/14/25at 06:44; Start 02/12/25 at 09:00; Stop 02/14/25 at 09:59; Status DC Potassium Chloride 40 meq BID ONCE PO; Start 02/12/25 at 21:00; Stop 02/12/25 at 21:01; Status DC Magnesium Chloride 64 mg Q8H6 ONCE PO; Start 02/12/25 at 14:00; Stop 02/12/25 at 14:01; Status DC Heparin Sodium (Porcine) *calculation based on ACTUAL B... AD PRN IV Last administered on 02/12/25at 20:16; Start 02/12/25 at 21:00; Stop 02/14/25 at 09:59; Status DC Insulin Glargine 12 units DAILY08 SQ Last administered on 02/13/25at 10:51; Start 02/13/25 at 08:00; Stop 02/14/25 at 09:59; Status DC Cefazolin Sodium 2 gm ONCALL IVP Last administered on 02/14/25at 08:50; Start 02/13/25 at 20:00; Stop 02/14/25 at 18:51; Status DC Epinephrine HCl 10 mg/Sodium Chloride 250 ml @ 0 mls/hr AD PRN IV Last administered on 02/20/25at 17:32; Start 02/14/25 at 06:30; Stop 03/16/25 at 06:29 Norepinephrine Bitartrate 250 ml @ 0 mls/hr AD PRN IV Last administered on 02/17/25at 01:06; Start 02/14/25 at 06:30; Stop 03/16/25 at 06:29 Aminocaproic Acid 09502 mg/Sodium Chloride 480 ml @ 0 mls/hr AD PRN IV; Start 02/14/25 at 06:30; Stop 02/23/25 at 11:52; Status DC Epinephrine HCl 10 mg/Sodium Chloride 250 ml @ 0 mls/hr AD PRN IV; Start 02/14/25 at 07:00; Stop 02/14/25 at 06:51; Status DC Norepinephrine Bitartrate 250 ml @ 0 mls/hr AD PRN IV; Start 02/14/25 at 07:00; Stop 02/14/25 at 06:51; Status DC Aminocaproic Acid 17786 mg/Sodium Chloride 480 ml @ 0 mls/hr AD PRN IV; Start 02/14/25 at 07:00; Stop 02/14/25 at 06:51; Status DC Cefazolin Sodium 2 gm STK-MED ONCE .ROUTE; Start 02/14/25 at 06:53; Stop 02/14/25 at 06:53; Status DC Nitroglycerin/ Dextrose 1 ml @ As Directed STK-MED ONCE .ROUTE; Start 02/14/25 at 07:00; Stop 02/14/25 at 07:00; Status DC Cefazolin Sodium 1 gm STK-MED ONCE .ROUTE Last administered on 02/14/25at 10:09; Start 02/14/25 at 07:37; Stop 02/14/25 at 07:38; Status DC Heparin Sodium/ Sodium Chloride 500 ml @ As Directed STK-MED ONCE IV; Start 02/14/25 at 07:38; Stop 02/14/25 at 07:38; Status DC Papaverine HCl 60 mg STK-MED ONCE .ROUTE Last administered on 02/14/25at 10:10; Start 02/14/25 at 07:38; Stop 02/14/25 at 07:38; Status DC Midazolam HCl 2 mg STK-MED ONCE .ROUTE; Start 02/14/25 at 08:14; Stop 02/14/25 at 08:14; Status DC Ketamine HCl 500 mg STK-MED ONCE IJ; Start 02/14/25 at 08:16; Stop 02/14/25 at 08:16; Status DC Protamine Sulfate 250 mg STK-MED ONCE IV; Start 02/14/25 at 08:17; Stop 02/14/25 at 08:17; Status DC Lidocaine HCl 100 mg STK-MED ONCE .ROUTE; Start 02/14/25 at 08:17; Stop 02/14/25 at 08:17; Status DC Heparin Sodium (Porcine) 10,000 unit STK-MED ONCE .ROUTE; Start 02/14/25 at 08:17; Stop 02/14/25 at 08:17; Status DC Epinephrine HCl 1 mg STK-MED ONCE .ROUTE; Start 02/14/25 at 08:17; Stop 02/14/25 at 08:17; Status DC Sodium Bicarbonate 200 ml @ As Directed STK-MED ONCE .ROUTE; Start 02/14/25 at 08:17; Stop 02/14/25 at 08:17; Status DC Norepinephrine Bitartrate 4 mg STK-MED ONCE IV; Start 02/14/25 at 08:17; Stop 02/14/25 at 08:17; Status DC Propofol 200 mg STK-MED ONCE IV; Start 02/14/25 at 08:19; Stop 02/14/25 at 08:19; Status DC Fentanyl Citrate 1,000 mcg STK-MED ONCE IJ; Start 02/14/25 at 08:19; Stop 02/14/25 at 08:19; Status DC Midazolam HCl 2 mg STK-MED ONCE .ROUTE; Start 02/14/25 at 08:20; Stop 02/14/25 at 08:20; Status DC Rocuronium [place] 50 mg STK-MED ONCE .ROUTE; Start 02/14/25 at 08:20; Stop 02/14/25 at 08:20; Status DC Acetaminophen 1,000 mg Q6H6 IV Last administered on 02/15/25at 12:14; Start 02/14/25 at 14:00; Stop 02/15/25 at 13:59; Status DC Aspirin 81 mg ONCE ONCE NG Last administered on 02/14/25at 13:56; Start 02/14/25 at 14:00; Stop 02/14/25 at 14:01; Status DC Docusate Sodium 100 mg BID PO Last administered on 02/28/25at 09:46; Start 02/14/25 at 21:00; Stop 03/16/25 at 20:59 Lactulose 20 gm BID PRN PO; Start 02/14/25 at 10:00; Stop 03/16/25 at 09:59 Furosemide 20 mg Q12H PO Last administered on 02/16/25at 08:19; Start 02/16/25 at 09:00; Stop 02/16/25 at 10:21; Status DC Furosemide 20 mg Q12H IV Last administered on 02/15/25at 20:16; Start 02/15/25 at 09:00; Stop 02/16/25 at 08:59; Status DC Atorvastatin Calcium 40 mg HS PO Last administered on 02/27/25at 21:07; Start 02/14/25 at 21:00; Stop 03/16/25 at 20:59 Enoxaparin Sodium 30 mg DAILY SQ Last administered on 02/28/25at 09:46; Start 02/17/25 at 09:00; Stop 03/19/25 at 08:59 Metoprolol Tartrate 12.5 mg BID PO; Start 02/16/25 at 09:00; Stop 02/20/25 at 09:01; Status DC Magnesium Hydroxide 30 ml DAILY PRN PO; Start 02/14/25 at 10:00; Stop 03/16/25 at 09:59 Dexmedetomidine/ Sodium Chloride 400 mcg PROTOCOL IV; Start 02/14/25 at 10:00; Stop 02/15/25 at 09:59; Status DC Acetaminophen 650 mg Q6H PRN PO; Start 02/14/25 at 10:00; Stop 03/16/25 at 09:59 Heparin Sodium (Porcine) 10,000 unit STK-MED ONCE .ROUTE; Start 02/14/25 at 10:00; Stop 02/14/25 at 10:00; Status DC Sodium Chloride 1,000 ml @ 10 mls/hr ONCE IV; Start 02/14/25 at 10:00; Stop 02/15/25 at 09:59; Status DC Sodium Chloride 10 ml Q8H PRN IVP; Start 02/14/25 at 10:00; Stop 03/16/25 at 09:59 Morphine Sulfate 0.5 mg Q2H PRN IV; Start 02/14/25 at 10:00; Stop 02/15/25 at 09:59; Status DC Morphine Sulfate 1 mg Q2H PRN IV Last administered on 02/14/25at 14:23; Start 02/14/25 at 10:30; Stop 02/19/25 at 13:29; Status DC Acetaminophen 650 mg Q4H PRN RC; Start 02/14/25 at 10:00; Stop 02/23/25 at 11:52; Status DC Ondansetron HCl 4 mg Q6H PRN IV; Start 02/14/25 at 10:00; Stop 03/16/25 at 09:59 Sodium Chloride 500 ml @ 0 mls/hr AD IV; Start 02/14/25 at 10:00; Stop 03/16/25 at 09:59 Nitroglycerin/ Dextrose 0 ml @ 0 mls/hr AD IV; Start 02/14/25 at 10:00; Stop 02/17/25 at 09:59; Status DC Propofol 100 ml @ 0 mls/hr AD PRN IV; Start 02/14/25 at 10:00; Stop 02/18/25 at 09:59; Status DC Norepinephrine Bitartrate 8 mg/ Dextrose 250 ml @ 0 mls/hr AD PRN IV; Start 02/14/25 at 10:00; Stop 02/14/25 at 10:14; Status DC Epinephrine HCl 10 mg/Sodium Chloride 250 ml @ 0 mls/hr AD PRN IV; Start 02/14/25 at 10:00; Stop 02/14/25 at 10:14; Status DC Aminocaproic Acid 82495 mg/Sodium Chloride 310 ml @ 25 mls/hr AD IV; Start 02/14/25 at 10:00; Stop 02/14/25 at 10:19; Status DC Calcium Gluconate 1 gm/Sodium Chloride 60 ml @ 200 mls/hr AD PRN IV Last administered on 02/21/25at 08:36; Start 02/14/25 at 10:00; Stop 03/16/25 at 09:59 Magnesium Sulfate 50 ml @ 12.5 mls/hr AD PRN IV Last administered on 02/24/25at 08:17; Start 02/14/25 at 10:00; Stop 03/16/25 at 09:59 Potassium Chloride 100 ml @ 100 mls/hr AD PRN IV Last administered on 02/21/25at 16:43; Start 02/14/25 at 10:00; Stop 03/16/25 at 09:59 Potassium Phosphate 250 ml @ 42 mls/hr AD PRN IV; Start 02/14/25 at 10:00; Stop 03/16/25 at 09:59 Albumin Human 250 ml @ 0 mls/hr AD PRN IV Last administered on 02/14/25at 14:42; Start 02/14/25 at 10:00; Stop 02/14/25 at 14:42; Status DC Acetaminophen 650 mg Q4H PRN PO; Start 02/14/25 at 10:00; Stop 03/16/25 at 09:59 Insulin Human Regular 100 unit/ Sodium Chloride 100 ml @ 0 mls/hr AD IV Last administered on 02/15/25at 06:30; Start 02/14/25 at 10:00; Stop 02/16/25 at 09:59; Status DC Cefazolin Sodium 2 gm Q8H IVPB Last administered on 02/15/25at 06:25; Start 02/14/25 at 15:00; Stop 02/15/25 at 07:01; Status DC Tramadol HCl 25 mg Q6H PRN PO; Start 02/14/25 at 10:00; Stop 02/19/25 at 09:59; Status DC Tramadol HCl 50 mg Q6H PRN PO; Start 02/14/25 at 10:00; Stop 02/19/25 at 09:59; Status DC Famotidine 20 mg BID IV Last administered on 02/15/25at 20:15; Start 02/14/25 at 21:00; Stop 02/16/25 at 07:58; Status DC Sodium Bicarbonate 50 meq AD PRN IV Last administered on 02/16/25at 15:25; Start 02/14/25 at 10:00; Stop 02/17/25 at 09:59; Status DC Dextrose 50 ml AD PRN IV; Start 02/14/25 at 10:00; Stop 03/16/25 at 09:59 Glucagon 1 mg AD PRN IM; Start 02/14/25 at 10:00; Stop 03/16/25 at 09:59 Dobutamine HCl 250 mg STK-MED ONCE .ROUTE; Start 02/14/25 at 10:28; Stop 02/14/25 at 10:28; Status DC Sodium Bicarbonate 50 ml @ As Directed STK-MED ONCE .ROUTE; Start 02/14/25 at 10:52; Stop 02/14/25 at 10:52; Status DC Sodium Bicarbonate 200 ml @ As Directed STK-MED ONCE .ROUTE; Start 02/14/25 at 10:53; Stop 02/14/25 at 10:53; Status DC Vasopressin 20 units STK-MED ONCE .ROUTE; Start 02/14/25 at 11:51; Stop 02/14/25 at 11:51; Status DC Rocuronium [place] 50 mg STK-MED ONCE .ROUTE; Start 02/14/25 at 12:14; Stop 02/14/25 at 12:14; Status DC Sodium Bicarbonate 100 ml @ As Directed STK-MED ONCE .ROUTE; Start 02/14/25 at 12:16; Stop 02/14/25 at 12:16; Status DC Vasopressin 40 units/Sodium Chloride 40 ml @ 0 mls/hr PROTOCOL IV Last administered on 02/14/25at 22:11; Start 02/14/25 at 13:00; Stop 03/16/25 at 12:59 Albumin Human 250 ml @ 0 mls/hr AD IV Last administered on 02/18/25at 10:27; Start 02/14/25 at 15:30; Stop 02/18/25 at 10:40; Status DC Calcium Gluconate 2 gm/Sodium Chloride 100 ml @ 0 mls/hr ONCE ONCE IV Last administered on 02/14/25at 16:15; Start 02/14/25 at 16:30; Stop 02/14/25 at 16:31; Status DC Pharmacy Profile Note 1 each ONCE MISC; Start 02/14/25 at 18:00; Stop 02/14/25 at 18:27; Status DC Sodium Bicarbonate 25 meq/Dextrose 1,025 ml @ 0 mls/hr Q0M IV Last administered on 02/18/25at 13:03; Start 02/14/25 at 18:00; Stop 03/16/25 at 17:59 Famotidine 20 mg BID PO Last administered on 02/16/25at 20:03; Start 02/16/25 at 09:00; Stop 02/17/25 at 07:09; Status DC Insulin Human Regular INSULIN SLIDING SCAL... ACHS SQ Last administered on 02/27/25at 21:34; Start 02/16/25 at 11:30; Stop 02/28/25 at 05:39; Status DC Cefepime HCl 1 gm Q12H IVPB Last administered on 02/19/25at 22:54; Start 02/16/25 at 10:30; Stop 02/20/25 at 08:16; Status DC Furosemide 100 mg/ Sodium Chloride 100 ml @ 0 mls/hr PROTOCOL IV Last administered on 02/19/25at 11:35; Start 02/16/25 at 10:30; Stop 02/20/25 at 09:01; Status DC Vancomycin HCl 500 ml @ 250 mls/hr ONCE ONCE IV Last administered on 02/16/25at 11:39; Start 02/16/25 at 12:00; Stop 02/16/25 at 13:59; Status DC Sodium Chloride 4 ml STK-MED ONCE IH Last administered on 02/16/25at 10:53; Start 02/16/25 at 10:44; Stop 02/16/25 at 10:44; Status DC Sodium Chloride 4 ml STK-MED ONCE IH Last administered on 02/16/25at 14:33; Start 02/16/25 at 14:26; Stop 02/16/25 at 14:26; Status DC Sodium Chloride 4 ml STK-MED ONCE IH Last administered on 02/16/25at 19:16; Start 02/16/25 at 18:32; Stop 02/16/25 at 18:32; Status DC Famotidine 20 mg DAILY PO Last administered on 02/28/25at 09:47; Start 02/17/25 at 09:00; Stop 03/18/25 at 08:59 Latanoprost 1 DROP FOR EACH EYE HS OP Last administered on 02/27/25at 21:08; Start 02/17/25 at 21:00; Stop 03/19/25 at 20:59 Home Med (Brimonidine-Timolol 0.2%/0.5% EYE DROPS) DAILY OP Last administered on 02/28/25at 09:45; Start 02/18/25 at 09:00; Stop 03/20/25 at 08:59 Albumin Human 250 ml @ 0 mls/hr AD IV; Start 02/18/25 at 10:30; Stop 02/20/25 at 09:03; Status DC Vancomycin HCl 1 each AD IV; Start 02/18/25 at 11:00; Stop 02/24/25 at 12:15; Status DC Vancomycin HCl 250 ml @ 125 mls/hr Q12H IV Last administered on 02/19/25at 11:20; Start 02/18/25 at 11:30; Stop 02/21/25 at 05:33; Status DC Potassium Chloride 20 meq BID PO Last administered on 02/28/25at 09:47; Start 02/19/25 at 10:30; Stop 03/21/25 at 10:29 Dexmedetomidine/ Sodium Chloride 400 mcg STK-MED ONCE IV Last administered on 02/20/25at 07:08; Start 02/20/25 at 07:00; Stop 02/20/25 at 07:00; Status DC Dexmedetomidine/ Sodium Chloride 400 mcg PROTOCOL IV Last administered on 02/22/25at 05:51; Start 02/20/25 at 07:30; Stop 02/22/25 at 15:01; Status DC Carvedilol 3.125 mg BID PO; Start 02/20/25 at 21:00; Stop 02/24/25 at 06:13; Status DC Spironolactone 25 mg DAILY PO Last administered on 02/28/25at 09:47; Start 02/20/25 at 09:00; Stop 03/22/25 at 08:59 Empaglifozin 10 mg DAILY PO Last administered on 02/22/25at 09:38; Start 02/20/25 at 09:00; Stop 02/22/25 at 15:01; Status DC Albumin Human 50 ml @ 0 mls/hr Q12H9 IV Last administered on 02/24/25at 08:15; Start 02/20/25 at 09:00; Stop 02/24/25 at 08:42; Status DC Furosemide 20 mg Q12H IV Last administered on 02/25/25at 21:27; Start 02/20/25 at 09:00; Stop 02/26/25 at 09:43; Status DC Pharmacy Profile Note 1 each ONCE MISC; Start 02/20/25 at 11:30; Stop 02/20/25 at 11:19; Status DC Piperacillin Sod/ Tazobactam Sod 50 ml @ 12.5 mls/hr Q8H IVPB Last administered on 02/24/25at 11:45; Start 02/20/25 at 11:30; Stop 02/24/25 at 18:10; Status DC Vancomycin HCl 250 ml @ 125 mls/hr Q24H IV Last administered on 02/23/25at 06:28; Start 02/21/25 at 06:00; Stop 02/24/25 at 05:57; Status DC Insulin Glargine 10 units DAILY SQ Last administered on 02/22/25at 11:54; Start 02/21/25 at 09:00; Stop 02/22/25 at 19:17; Status DC Calcium Gluconate 1 gm STK-MED ONCE .ROUTE; Start 02/21/25 at 08:34; Stop 02/21/25 at 08:34; Status DC Etomidate 20 mg STK-MED ONCE .ROUTE; Start 02/21/25 at 12:27; Stop 02/21/25 at 12:28; Status DC Fentanyl Citrate 100 mcg STK-MED ONCE .ROUTE; Start 02/21/25 at 12:30; Stop 02/21/25 at 12:30; Status DC Rocuronium [place] 50 mg STK-MED ONCE .ROUTE; Start 02/21/25 at 12:30; Stop 02/21/25 at 12:30; Status DC Lidocaine HCl 20 ml STK-MED ONCE .ROUTE; Start 02/21/25 at 12:31; Stop 02/21/25 at 12:31; Status DC Cefazolin Sodium 1 gm STK-MED ONCE .ROUTE; Start 02/21/25 at 12:31; Stop 02/21/25 at 12:32; Status DC Bupivacaine HCl 2.5 mg STK-MED ONCE IJ; Start 02/21/25 at 12:32; Stop 02/21/25 at 12:32; Status DC Propofol 200 mg STK-MED ONCE IV; Start 02/21/25 at 12:35; Stop 02/21/25 at 12:35; Status DC Lidocaine HCl 100 mg STK-MED ONCE .ROUTE; Start 02/21/25 at 12:46; Stop 02/21/25 at 12:46; Status DC Cefazolin Sodium 1 gm STK-MED ONCE .ROUTE; Start 02/21/25 at 12:51; Stop 02/21/25 at 12:51; Status DC Rocuronium [place] 50 mg STK-MED ONCE .ROUTE; Start 02/21/25 at 13:03; Stop 02/21/25 at 13:03; Status DC Cefazolin Sodium 2 gm STK-MED ONCE IVPB Last administered on 02/21/25at 12:53; Start 02/21/25 at 12:53; Stop 02/21/25 at 14:14; Status DC Lidocaine HCl 20 ml STK-MED ONCE INJ Last administered on 02/21/25at 12:18; Start 02/21/25 at 12:18; Stop 02/21/25 at 14:14; Status DC Bupivacaine HCl 75 mg STK-MED ONCE IJ Last administered on 02/21/25at 12:18; Start 02/21/25 at 12:18; Stop 02/21/25 at 14:14; Status DC Insulin Glargine 12 units DAILY SQ Last administered on 02/27/25at 17:30; Start 02/23/25 at 09:00; Stop 02/28/25 at 05:39; Status DC Dexmedetomidine/ Sodium Chloride 400 mcg PROTOCOL IV Last administered on 02/23/25at 00:17; Start 02/23/25 at 00:00; Stop 03/25/25 at 00:00 Midodrine 10 mg TID PO Last administered on 02/28/25at 09:47; Start 02/23/25 at 14:00; Stop 03/25/25 at 13:59 Prednisone 20 mg DAILY PO Last administered on 02/26/25at 09:50; Start 02/23/25 at 12:30; Stop 02/26/25 at 13:00; Status DC Vancomycin HCl 250 ml @ 125 mls/hr Q24H IV Last administered on 02/24/25at 06:26; Start 02/24/25 at 06:30; Stop 02/24/25 at 12:15; Status DC Carvedilol 3.125 mg BID PO Last administered on 02/28/25at 09:50; Start 02/24/25 at 09:00; Stop 03/26/25 at 08:59 Empaglifozin 10 mg DAILY PO Last administered on 02/24/25at 08:47; Start 02/24/25 at 09:00; Stop 02/24/25 at 13:01; Status DC Piperacillin Sod/ Tazobactam Sod 50 ml @ 12.5 mls/hr Q8H6 IVPB Last administered on 02/28/25at 06:26; Start 02/24/25 at 22:00; Stop 03/06/25 at 21:59 Furosemide 40 mg Q12H IV Last administered on 02/28/25at 09:47; Start 02/26/25 at 10:00; Stop 03/28/25 at 09:59 Insulin Glargine 15 units DAILY SQ Last administered on 02/28/25at 09:53; Start 02/28/25 at 09:00; Stop 03/30/25 at 08:59 Insulin Human Regular INSULIN SLIDING SCAL... ACHS SQ Last administered on 02/28/25at 12:35; Start 02/28/25 at 07:30; Stop 03/30/25 at 07:29 KIRSTIE KEITH MD Feb 28, 2025 13:19
--- NOTE | 2025-02-28 14:15 | PN ---
[facility] PROGRESS NOTE Date of Service: Feb 28, 2025 Time of Service: 14:07 HISTORY OF PRESENT ILLNESS: This is a 74-year-old male,a Evangelical by roman catholic whith past medical history of diabetes, hyperlipidemia and OK/coronary artery disease with cardiac stent who presented to the Ed for complaints of midsternal chest pain that is non radiating associated with diaphoresis and this happened when patient was laying down in bed aroun 11:50 pm last night and decided to come to the ED for evaluation.Patient reports pain was persistent.As per patient he had a history of heart attack before and underwent a stent placement.Patient reports the only medication he is taking is Metformin.Patient states he is supposed to be on Aspirin but has stopped taking it.Patient reports he occasionally drinks beer and last drink was yesterday ,had 2 beers he said. Seen and examined patient in the ER awake,alert and coherent,appears comfortable.Patient denies fever,chills,cough,nausea,vomiting,palpitation and shortness of breath. Latest vital signs temperature 98.2, heart rate 75, blood pressure 124/70 saturation 97% on room air. Labs: CBC unremarkable. Chloride 99, BUN 21, random glucose 469 to 439 to 327. Troponin from -. ECG result revealed revealed sinus rhythm heart rate 85 with atrial premature complex anterolateral infarct age indeterminate. Second EKG result revealed sinus rhythm heart rate 73 with left anterior fascicular block. Probable anterolateral infarct age indeterminate. Abnormal T consider ischemia lateral leads.. Chest x-ray result revealed no acute cardiopulmonary process is evident. While in the ER patient received 1500 mL NS bolus, insulin 5 units IV, aspirin 325 mg p.o. and patient was started on heparin drip per [facility] protocol. SUBJECTIVE: 02/10/25: Patient was seen and evaluated in ED9. Patient was alert, awake and orientedX3. Patient reports that he doesn't have any chest pain today. Patient reports occasional shortness of breath during nights. Patient denies any shortness of breath, nausea, vomiting, palpitations and lightheadedness. Patient denies any abdominal pain, burning urination. Patient mentions that he only takes metformin 3-4 times per week and has stopped taking aspirin because it wasn't reconciled. Troponin from -. 2D ECHO was done, pending results. Patient is currently on Heparin drip 02/11/25: Patient was evaluated at the bedside this morning. No overnight event. He is AAO x3. patient reported that he does not have chest pain or shortness of breath. He is hemodynamically stable. The labs remarkable for potassium 3.3, magnesium 1.6, HbA1c 13.9, troponin 80490. Left heart catheterization revealed severe triple-vessel disease. Echocardiogram revealed 25% ejection fraction with segmental akinesis. CT surgery was consulted who recommended CABG with Impella left ventricle assist. Family to decide about the procedure. He is currently on heparin drip, aspirin. Endocrinology on board. Rest of the plan as discussed below. 02/12/25: Patient was evaluated at the bedside this morning. No overnight event. He is AAO x3. patient reported that he does not have chest pain or shortness of breath. He is hemodynamically stable. Cardiology is on board and Dr. Blanton have suggested low-dose beta estela like metoprolol tartrate 12.5 mg b.i.d. for his heart failure. Dr Kaur still recommends CABG with 5.5 Impella LVAD and the patient agrees to it. We will continue Entresto, Aldactone, Jardiance, aspirin, Lasix as per CT surgeon recommendations. Today his potassium is 3.1 and we would like to be above 4 for CABG patients. So we will replace potassium 02/13/25: Patient was seen and evaluated in room 201. Patient reports feeling better. patient denies any chest pain, shortness of breath. He is continuing on Entresto, Aldactone, Jardiance, aspirin, Lasix as per CT surgeon recommendations.Patients Potassium today is 3.7, will continue replacing potassium. Patients was present along with the patient, she has a few question about the CABG procedure which she wanted to ask Dr. Alexis. 02/14/25. Patient was undergoing CABG procedure today in the morning. 02/15/25: Patient was seen and evaluated in room 213. Patient status post CABG day 1. Patient denies any fever, chills, shortness of breath. Patient complaints of pain along the incision. Patient is on IABP and Impella support. patient is on Vasopressin and Norepinephrine drip. Entresto, Aldactone, Jardiance were discontinued by Dr. Alexis. CT surgery are on the case and will follow their recommendations. 02/16/25: Patient was seen and evaluated in room 213. Patient status post CABG day 2. patient was asleep when we went bedside. Spoke with the nurse regarding overnights and she mentioned that patient was a bit confused in the night but later improved with sleep. Patient is continuing on Epinephrine drip. Patient was weaned off IABP and is currently only on Impella. Patient was started on Vancomycin and cefepime due to elevated WBC levels and findings suggestive of pneumonia on chest x-ray 02/17/25: Patient was seen and evaluated in room 213. Patient status post CABG day 2. patient was asleep when we went bedside. Spoke with the nurse regarding overnights and he mentioned that patient was started on lasix protocol. Patient is continuing on Epinephrine drip and Impella. Critical care are on the case and will follow their recommendations. 02/18/25: Patient was seen and examined at bedside. He is status post CABG day 3. He continues on Lasix drip 2.5, With Impella P3 support and epinephrine drip. His total output in the past 24 hours has been optimal, 4740 versus 2165 input. No acute events overnight. We will follow CTS recommendations regarding further weaning off Impella. 02/19/25: Patient was seen and evaluated in room 210. He is status post CABG day 4. He continues on Lasix drip 2.5, With Impella P3 support and epinephrine drip. His total output in the past 24 hours has been 2905 versus 4072. No acute overnight. Patient is scheduled for possible impella removal tomorrow. 02/20/25: Patient was seen and evaluated in room 210. He is status post CABG day 5. He continues on Lasix drip 2.5, Impella setting have been maintained at P3 settings. He is continuing on epinephrine drip. Cefepime was discontinued yesterday because overnight the patient was confused, agitated and combative suspecting the cause of his confusion and started on Zosyn. His total output in the past 24 hours has been 2675 versus 2206. Patient is scheduled for possible impella removal tomorrow. 02/21/25: Patient was seen and evaluated in room 210. He is status post CABG day 6. Patient is continuing on Epinephrine drip. patient was started on Lasix 20mg IV. Patient is scheduled for impella removal today. Patient is continuing on Zosyn. His total output in the past 24 hours has been 6700 versus 1785. 02/22/25: Patient was seen and evaluated in room 210. He is status post CABG day 7. Patient reports feeling better and he doesn't have any active complaints, Impella was removed yesterday and patient is continuing on Epinephrine drip. patient denies any shortness of breath, fever, chills and chest pain. Patient is continuing on Zosyn. His total output in the past 24 hours has been 3650 versus 1775. 02/23/25: Patient was seen and evaluated in room 210. He is status post CABG day 8. Patient complains of pain in left lower extremity, Patient denies any erythema, chest pain. Patient denies any fever, chills, shortness of breath, and dizziness. Ankle X-ray, US venous Doppler was ordered, will follow the results. Patient is continuing on lasix 20mg. His total output in the past 24 hours has been 4900 versus 1829. 02/24/25: Patient was seen and evaluated in room 210. He is status post CABG day 9. Patient is alert, awake, oriented X3. Patient reports that his pain in the left lower leg is getting better. Venous US ordered yesterday came back unrem arkable. Patient denies any chest pain, shortness of breath. Epinephrine drip was discontinued. Patient was started back on Coreg 3.125mg, Jardiance 10mg under cardiology recommendations. His total output in the past 24 hours has been 3300 versus 1560. 02/25/25: Patient was seen and evaluated in room 233 along with his . He is status post CABG day 10. Patient's mentioned that the patient passed blood clots in urine, Patient denies any burning micturition or difficulty urinating. Patient is alert, awake, oriented X3. Patient denies any pain in left lower extremity, Patient denies any chest pain, shortness of breath. Jardiance was stopped because of elevated bicarb. His total output in the past 24 hours has been 2300 versus 690. 02.26.2024: Patient is seen and evaluated in room 223. His current blood pressure is 105/57. He is on Aspirin, Lasix, Coreg, Jardiance, Aldactone, and Lipitor. Case management is coordinating cardiac rehabilitation and potential SNF placement tomorrow. Pulmonology advised thoracentesis for left pleural effusion, the patient is saturating above 95%. The patient reports no dyspnea or orthopnea. He is receiving 12 units of Lantus and is off the insulin drip. He is on Zosyn and Vancomycin, and his WBC is 15.4 today. Bilirubin is trending down to 1.3 02.27.2025: Patient is seen and evaluated in room 223. He has no active complaints, and the nurse reports no overnight events. Chest X-ray demonstrates improvement from yesterday following thoracentesis. Case management is arranging placement to a long term facility, pending approval. From the cardiology perspective, the patient is cleared and approved for discharge to rehab. 02.28.2025: Patient is seen and evaluated in room 223. Cardiology left a note indicating possible AICD or LifeVest placement. Patient denies chest pain, shortness of breath, palpitations, and reports no lower-extremity edema. WBC is 14.7 today and trending down. Hemoglobin remains stable at 10.8. Chloride is 100 and BUN is 26. Blood sugars are 150 . Lantus has been increased from 12 units to 15 units. Pending referral to cardiac rehab. REVIEW OF SYSTEMS CONSTITUTIONAL: Denies fevers, chills, or night sweats. No unintentional weight loss reported. NEUROLOGICAL: Denies headache, amaurosis fugax, motor weakness, sensory deficit, vertigo/spinning sensation, gait abnormalities, or tremors. ENT: No hearing loss, otalgia, otorrhea, rhinitis, rhinorrhea, hoarseness, or sore throat. CARDIOVASCULAR: Denies chest pain, dyspnea on exertion, orthopnea, paroxysmal nocturnal dyspnea, palpitations, life-threatening arrhythmias, claudication. PULMONARY: Denies any cough, phlegm/sputum, hemoptysis, pleuritic chest pain. GASTROINTESTINAL: Denies any type of dysphagia to either liquids or solids. Denies nausea, vomiting, pyrosis, early satiety, abdominal pain, diarrhea, constipation, or changes in stool consistency or caliber. Denies coffee-ground emesis, hematemesis, hematochezia, or melanotic stools. GENITOURINARY: Denies frequency, urgency, nocturia, hematuria or incontinence (Storage/Irritative symptoms.) Low urinary stream, straining to void, urinary intermittency or hesitancy, splitting of the voiding stream, terminal dribbling. PHYSICAL EXAM GENERAL APPEARANCE: The patient is awake, alert, and oriented, in no acute cardiopulmonary distress. NEUROLOGICAL: Motor is 5/5 in bilateral upper and lower extremities proximal to distal. No sensory deficits. HEENT: Face is symmetric. Pupils are equal and reactive. Extraocular movements are intact. NECK: Supple. No thyromegaly. No submental, submandibular, pre-/postauricular, occipital or supraclavicular lymphadenopathy. CHEST: Normal chest expansion. No Telemetry. LUNGS: Absence of any rales, rhonchi or any wheezing. CARDIOVASCULAR: Regular. S1 and S2 normal. No appreciable rubs, murmurs or gallops. ABDOMEN: Soft, nontender, and nondistended. There is no rebound, voluntary guarding, or rigidity. : Deferred. No De Jesus. EXTREMITIES: Non-edematous and not cyanotic. No clubbing. Good capillary refill. SKIN: sternal scar - post CABG Vital Signs (last 8hr) Date Time Temp Pulse Resp B/P (MAP) Pulse Ox O2 Delivery O2 Flow Rate FiO2 02/28/25 12:00 98.1 70 18 94/53 98 Room Air 21 02/28/25 09:50 103/61 02/28/25 07:45 97.9 70 18 103/61 97 Room Air 21 LABS: Laboratory: Test 02/28/25 11:39 02/28/25 05:34 02/27/25 07:45 02/27/25 05:22 Range/Units Whole Blood Glucose 186 H 70-110 MG/DL Bedside Glucose Comment Notified Nurse White Blood Count 14.7 H 4.8-10.8 K/uL Red Blood Count 3.63 L 4.50-6.20 MIL/uL Hemoglobin 10.8 L 14.0-18.0 g/dL Hematocrit 32.7 L 42-54 % Mean Corpuscular Volume 90.1 79-99 fL Mean Corpuscular Hemoglobin 29.8 27.0-33.0 pg Mean Corpuscular Hemoglobin Concent 33.0 32.0-36.0 g/dL Red Cell Distribution Width 16.7 H 11.0-15.5 % Platelet Count 474 H 130-400 K/uL Mean Platelet Volume 10.1 7.5-10.5 fL Immature Granulocyte % (Auto) 1.8 H 0-1 % Neutrophils (%) (Auto) 65.6 40.0-77.0 % Lymphocytes (%) (Auto) 21.1 21.0-51.0 % Monocytes (%) (Auto) 9.9 3.0-13.0 % Eosinophils (%) (Auto) 1.0 0.0-8.0 % Basophils (%) (Auto) 0.6 0.0-5.0 % Neutrophils # (Auto) 9.6 H 1.8-7.7 K/uL Lymphocytes # (Auto) 3.1 1.0-4.8 K/uL Monocytes # (Auto) 1.5 H 0.1-1.0 K/uL Eosinophils # (Auto) 0.15 0.00-0.70 K/uL Basophils # (Auto) 0.09 0.00-0.20 K/uL Absolute Immature Granulocyte (auto 0.26 0-1 K/uL Nucleated Red Blood Cells 0.2 H 0.0-0.19 % Sodium Level 138 136-145 mmol/L Potassium Level 4.2 3.5-5.1 mmol/L Chloride Level 100 L 101-111 mmol/L Carbon Dioxide Level 26 21-32 mmol/L Blood Urea Nitrogen 26 H 7-18 mg/dL Creatinine 1.2 0.5-1.3 mg/dL Glomerular Filtration Rate Calc 63 >90 mL/min Random Glucose 150 H 70-105 mg/dL Total Calcium 8.6 8.5-10.1 mg/dL Iron Level 61 L 65-175 mcg/dL Total Iron Binding Capacity 154 L 250-450 mcg/dL Percent Iron Saturation 39.6 30-44 % Magnesium Level 2.00 1.80-2.40 mg/dL Current Medications Medications (Trade) Dose Ordered Sig/Carol Route PRN Reason Start Time Stop Time Status Last Admin Dose Admin Acetaminophen (TYLenol 325MG TAB) 650 mg Q4H PRN PO MILD PAIN (1-3) 02/10/25 05:00 02/14/25 10:05 DC Acetaminophen (TYLenol 325MG TAB) 650 mg Q4H PRN PO Temp >38.3C(AFTER EXTUBATION) 02/14/25 10:00 03/16/25 09:59 Acetaminophen (TYLenol 325MG TAB) 650 mg Q6H PRN PO TEMPERATURE GREATER THAN 101.5 02/10/25 05:00 02/14/25 10:17 DC 02/12/25 17:13 650 MG Acetaminophen (TYLenol 325MG TAB) 650 mg Q6H PRN PO MILD PAIN (1-3) 02/14/25 10:00 03/16/25 09:59 Acetaminophen (TYLenol 650MG SUPPOSITORY) 650 mg Q4H PRN RC Temp >38.3C WHILE INTUBATED 02/14/25 10:00 02/23/25 11:52 DC Acetaminophen (acetaMINOPHEN 1,000MG/100ML) 1,000 mg Q6H6 IV 02/14/25 14:00 02/15/25 13:59 DC 02/15/25 12:14 1,000 MG Albumin Human 50 ml @ 0 mls/hr Q12H9 IV 02/20/25 09:00 02/24/25 08:42 DC 02/24/25 08:15 100 MLS/HR Albumin Human 250 ml @ 0 mls/hr AD IV 02/14/25 15:30 02/18/25 10:40 DC 02/18/25 10:27 250 MLS/HR Albumin Human 250 ml @ 0 mls/hr AD IV 02/18/25 10:30 02/20/25 09:03 DC Albumin Human 250 ml @ 0 mls/hr AD PRN IV IF HEMODYNAMICALLY UNSTABLE 02/14/25 10:00 02/14/25 14:42 DC 02/14/25 14:42 500 MLS/HR Aminocaproic Acid 80392 mg/Sodium Chloride 310 ml @ 25 mls/hr AD IV 02/14/25 10:00 02/14/25 10:19 DC Aminocaproic Acid 19029 mg/Sodium Chloride 480 ml @ 0 mls/hr AD PRN IV BLEEDING CONTROL 02/14/25 06:30 02/23/25 11:52 DC Aminocaproic Acid 91816 mg/Sodium Chloride 480 ml @ 0 mls/hr AD PRN IV BLEEDING CONTROL 02/14/25 07:00 02/14/25 06:51 DC Aspirin (Aspirin 325mg Tab) 325 mg ONCE PO 02/10/25 14:30 02/10/25 17:22 DC 02/10/25 14:32 325 MG Aspirin (Aspirin 81mg Ec Tab) 81 mg DAILY PO 02/10/25 09:00 03/12/25 08:59 02/28/25 09:46 81 MG Atorvastatin Calcium (LIPItor 40MG) 40 mg HS PO 02/14/25 21:00 03/16/25 20:59 02/27/25 21:07 40 MG Calcium Gluconate 1 gm/Sodium Chloride 60 ml @ 200 mls/hr AD PRN IV HYPOCALCEMIA 02/14/25 10:00 03/16/25 09:59 02/21/25 08:36 200 MLS/HR Carvedilol (Coreg 3.125MG) 3.125 mg BID PO 02/20/25 21:00 02/24/25 06:13 DC Carvedilol (Coreg 3.125MG) 3.125 mg BID PO 02/24/25 09:00 03/26/25 08:59 02/28/25 09:50 3.125 MG Cefazolin Sodium (Ancef) 2 gm ONCALL IVP 02/13/25 20:00 02/14/25 18:51 DC 02/14/25 08:50 2 GM Cefazolin Sodium (Ancef) 2 gm Q8H IVPB 02/14/25 15:00 02/15/25 07:01 DC 02/15/25 06:25 2 GM Cefepime HCl (MAXipime 1 GM vial) 1 gm Q12H IVPB 02/16/25 10:30 02/20/25 08:16 DC 02/19/25 22:54 1 GM Clopidogrel Bisulfate (plaVIX 300MG TAB) 600 mg ONCE PO 02/10/25 14:00 02/10/25 17:22 DC 02/10/25 14:19 600 MG Clopidogrel Bisulfate (plaVIX 75MG) 75 mg DAILY PO 02/11/25 09:00 02/11/25 07:28 DC Dexmedetomidine/ Sodium Chloride (PRECEdex 400MCG/ 100ML-NS) 400 mcg PROTOCOL IV 02/14/25 10:00 02/15/25 09:59 DC Dexmedetomidine/ Sodium Chloride (PRECEdex 400MCG/ 100ML-NS) 400 mcg PROTOCOL IV 02/20/25 07:30 02/22/25 15:01 DC 02/22/25 05:51 400 MCG Dexmedetomidine/ Sodium Chloride (PRECEdex 400MCG/ 100ML-NS) 400 mcg PROTOCOL IV 02/23/25 00:00 03/25/25 00:00 02/23/25 00:17 400 MCG Dextrose (D50w) 50 ml AD PRN IV HYPOGLYCEMIA PROTOCOL 02/10/25 05:00 02/14/25 10:17 DC Dextrose (D50w) 50 ml AD PRN IV HYPOGLYCEMIA PROTOCOL 02/14/25 10:00 03/16/25 09:59 Docusate Sodium (COLace 100MG CAP) 100 mg BID PO 02/14/25 21:00 03/16/25 20:59 02/28/25 09:46 100 MG Empaglifozin (Jardiance 10mg) 10 mg DAILY PO 02/10/25 14:30 02/14/25 09:59 DC 02/13/25 10:52 10 MG Empaglifozin (Jardiance 10mg) 10 mg DAILY PO 02/20/25 09:00 02/22/25 15:01 DC 02/22/25 09:38 10 MG Empaglifozin (Jardiance 10mg) 10 mg DAILY PO 02/24/25 09:00 02/24/25 13:01 DC 02/24/25 08:47 10 MG Enoxaparin Sodium (Lovenox) 30 mg DAILY SQ 02/17/25 09:00 03/19/25 08:59 02/28/25 09:46 30 MG Epinephrine HCl 10 mg/Sodium Chloride 250 ml @ 0 mls/hr AD PRN IV TITRATE 02/14/25 06:30 03/16/25 06:29 02/20/25 17:32 2.9 MLS/HR Epinephrine HCl 10 mg/Sodium Chloride 250 ml @ 0 mls/hr AD PRN IV TITRATE 02/14/25 07:00 02/14/25 06:51 DC Epinephrine HCl 10 mg/Sodium Chloride 250 ml @ 0 mls/hr AD PRN IV POST-OP CARDIOVASCULAR ORDERS 02/14/25 10:00 02/14/25 10:14 DC Famotidine (Pepcid 20mg Vial) 20 mg BID IV 02/14/25 21:00 02/16/25 07:58 DC 02/15/25 20:15 20 MG Famotidine (Pepcid 20mg Tab) 20 mg BID PO 02/16/25 09:00 02/17/25 07:09 DC 02/16/25 20:03 20 MG Famotidine (Pepcid 20mg Tab) 20 mg DAILY PO 02/10/25 09:00 02/14/25 09:59 DC 02/13/25 10:53 20 MG Famotidine (Pepcid 20mg Tab) 20 mg DAILY PO 02/17/25 09:00 03/18/25 08:59 02/28/25 09:47 20 MG Furosemide (LASix 20MG TAB) 20 mg DAILY PO 02/11/25 09:00 02/14/25 09:59 DC 02/13/25 10:52 20 MG Furosemide (LASix 20MG TAB) 20 mg Q12H PO 02/16/25 09:00 02/16/25 10:21 DC 02/16/25 08:19 20 MG Furosemide (LASix 20MG VIAL) 20 mg ONCE IV 02/10/25 17:00 02/10/25 21:00 DC 02/10/25 17:00 20 MG Furosemide (LASix 20MG VIAL) 20 mg ONCE IV 02/11/25 09:00 02/11/25 07:43 DC Furosemide (LASix 20MG VIAL) 20 mg Q12H IV 02/15/25 09:00 02/16/25 08:59 DC 02/15/25 20:16 20 MG Furosemide (LASix 20MG VIAL) 20 mg Q12H IV 02/20/25 09:00 02/26/25 09:43 DC 02/25/25 21:27 20 MG Furosemide (LASix 40MG VIAL) 40 mg Q12H IV 02/26/25 10:00 03/28/25 09:59 02/28/25 09:47 40 MG Furosemide 100 mg/ Sodium Chloride 100 ml @ 0 mls/hr PROTOCOL IV 02/16/25 10:30 02/20/25 09:01 DC 02/19/25 11:35 2.5 MLS/HR Glucagon (Glucagon 1mg Kit) 1 mg AD PRN IM HYPOGLYCEMIA PROTOCOL 02/10/25 05:00 02/14/25 10:17 DC Glucagon (Glucagon 1mg Kit) 1 mg AD PRN IM HYPOGLYCEMIA PROTOCOL 02/14/25 10:00 03/16/25 09:59 Heparin Sodium (Porcine) (HEParin 5,000 UNIT VIAL) *calculation based on ACTUAL B... AD PRN IV HEPARIN PROTOCOL 02/12/25 21:00 02/14/25 09:59 DC 02/12/25 20:16 4,000 UNIT Heparin Sodium/ Dextrose 250 ml @ 0 mls/hr PROTOCOL IV 02/10/25 03:00 02/10/25 17:22 DC 02/10/25 03:00 16.2 MLS/HR Heparin Sodium/ Dextrose 250 ml @ 0 mls/hr Q6H IV 02/11/25 06:30 02/14/25 09:59 DC 02/13/25 13:01 9 MLS/HR Home Med (Home Medication) (Brimonidine-Timolol 0.2%/0.5% EYE DROPS) DAILY OP 02/18/25 09:00 03/20/25 08:59 02/28/25 09:45 1 EACH Insulin Glargine (LANtus 100 UNITS/ML 10 ML VIAL) 10 units DAILY SQ 02/21/25 09:00 02/22/25 19:17 DC 02/22/25 11:54 10 UNITS Insulin Glargine (LANtus 100 UNITS/ML 10 ML VIAL) 12 units DAILY SQ 02/23/25 09:00 02/28/25 05:39 DC 02/27/25 17:30 12 UNITS Insulin Glargine (LANtus 100 UNITS/ML 10 ML VIAL) 12 units DAILY08 02/13/25 08:00 02/14/25 09:59 DC 02/13/25 10:51 12 UNITS Insulin Glargine (LANtus 100 UNITS/ML 10 ML VIAL) 15 units DAILY SQ 02/28/25 09:00 03/30/25 08:59 02/28/25 09:53 15 UNITS Insulin Glargine (LANtus 100 UNITS/ML 10 ML VIAL) 15 units DAILY08 02/11/25 08:00 02/13/25 05:24 DC 02/12/25 08:54 15 UNITS Insulin Human Regular (humuLIN R 100 UNIT/ML 3ML) 3 unit TIDAC SQ 02/12/25 07:30 02/14/25 09:59 DC 02/12/25 16:31 3 UNIT Insulin Human Regular (humuLIN R 100 UNIT/ML 3ML) INSULIN SLIDING SCAL... ACHS SQ 02/16/25 11:30 02/28/25 05:39 DC 02/27/25 21:34 2 UNIT Insulin Human Regular (humuLIN R 100 UNIT/ML 3ML) INSULIN SLIDING SCAL... ACHS SQ 02/28/25 07:30 03/30/25 07:29 02/28/25 12:35 2 UNIT Insulin Human Regular (humuLIN R 100 UNIT/ML 3ML) INSULIN SLIDING SCAL... Q4H SQ 02/10/25 05:00 02/10/25 11:10 DC 02/10/25 09:15 6 UNIT Insulin Human Regular (humuLIN R 100 UNIT/ML 3ML) INSULIN SLIDING SCAL... Q6H6 SQ 02/10/25 12:00 02/14/25 09:59 DC 02/11/25 17:29 2 UNIT Insulin Human Regular 100 unit/ Sodium Chloride 100 ml @ 0 mls/hr AD IV 02/14/25 10:00 02/16/25 09:59 DC 02/15/25 06:30 3 MLS/HR Lactulose (Constulose 20gm/ 30ml Udcup) 20 gm BID PRN PO CONSTIPATION 02/14/25 10:00 03/16/25 09:59 Latanoprost (Xalatan) 1 DROP FOR EACH EYE HS OP 02/17/25 21:00 03/19/25 20:59 02/27/25 21:08 1 DROP Magnesium Hydroxide (Milk Of Magnesium 30ml) 30 ml DAILY PRN PO CONSTIPATION 02/14/25 10:00 03/16/25 09:59 Magnesium Sulfate 50 ml @ 12.5 mls/hr AD PRN IV MAG LEVEL LESS THAN 2.0 02/14/25 10:00 03/16/25 09:59 02/24/25 08:17 12.5 MLS/HR Magnesium Sulfate 50 ml @ 0 mls/hr PROTOCOL PRN IV OTHER [SEE ORDER COMMENTS] 02/10/25 05:00 02/14/25 10:17 DC 02/12/25 07:13 25 MLS/HR Metoprolol Tartrate (loprESSOR) 12.5 mg BID PO 02/12/25 09:00 02/14/25 09:59 DC 02/14/25 06:44 12.5 MG Metoprolol Tartrate (loprESSOR) 12.5 mg BID PO 02/16/25 09:00 02/20/25 09:01 DC Midodrine (PROAMatine 5 MG TABLET) 10 mg TID PO 02/23/25 14:00 03/25/25 13:59 02/28/25 09:47 10 MG Morphine Sulfate (morPHINE 2MG SYG) 0.5 mg Q2H PRN IV MODERATE PAIN (4-6) IF NPO 02/14/25 10:00 02/15/25 09:59 DC Morphine Sulfate (morPHINE 2MG SYG) 1 mg Q2H PRN IV SEVERE PAIN (7-10) IF NPO 02/14/25 10:30 02/19/25 13:29 DC 02/14/25 14:23 1 MG Nitroglycerin (Nitrostat) 0.4 mg PROTOCOL PRN SL CHEST PAIN 02/10/25 05:00 02/14/25 09:59 DC Nitroglycerin/ Dextrose 0 ml @ 0 mls/hr AD IV 02/14/25 10:00 02/17/25 09:59 DC Norepinephrine Bitartrate 250 ml @ 0 mls/hr AD PRN IV TITRATE 02/14/25 06:30 03/16/25 06:29 02/17/25 01:06 1.9 MLS/HR Norepinephrine Bitartrate 250 ml @ 0 mls/hr AD PRN IV TITRATE 02/14/25 07:00 02/14/25 06:51 DC Norepinephrine Bitartrate 8 mg/ Dextrose 250 ml @ 0 mls/hr AD PRN IV POST-OP CARDIOVASCULAR ORDERS 02/14/25 10:00 02/14/25 10:14 DC Ondansetron HCl (zoFRAN 4MG INJ) 4 mg Q6H PRN IV NAUSEA/VOMITING 02/10/25 05:00 02/14/25 10:17 DC Ondansetron HCl (zoFRAN 4MG INJ) 4 mg Q6H PRN IV NAUSEA/VOMITING 02/14/25 10:00 03/16/25 09:59 Pharmacy Profile Note (Pharmacy Communication) 1 each ONCE MISC 02/14/25 18:00 02/14/25 18:27 DC Pharmacy Profile Note (Pharmacy Communication) 1 each ONCE MISC 02/20/25 11:30 02/20/25 11:19 DC Piperacillin Sod/ Tazobactam Sod 50 ml @ 12.5 mls/hr Q8H IVPB 02/20/25 11:30 02/24/25 18:10 DC 02/24/25 11:45 12.5 MLS/HR Piperacillin Sod/ Tazobactam Sod 50 ml @ 12.5 mls/hr Q8H6 IVPB 02/24/25 22:00 03/06/25 21:59 02/28/25 06:26 12.5 MLS/HR Potassium Phosphate 250 ml @ 42 mls/hr AD PRN IV LOW PHOS LEVEL 02/14/25 10:00 03/16/25 09:59 Potassium Chloride 100 ml @ 100 mls/hr AD PRN IV POTASSIUM PROTOCOL 02/10/25 05:00 02/15/25 06:27 DC 02/15/25 05:43 100 MLS/HR Potassium Chloride 100 ml @ 100 mls/hr AD PRN IV HYPOKALEMIA 02/14/25 10:00 03/16/25 09:59 02/21/25 16:43 100 MLS/HR Potassium Chloride (K-Dur/Klor-Con 20meq) 20 meq AD PRN PO POTASSIUM PROTOCOL 02/10/25 05:00 03/12/25 04:59 02/18/25 20:18 20 MEQ Potassium Chloride (K-Dur/Klor-Con 20meq) 20 meq BID PO 02/19/25 10:30 03/21/25 10:29 02/28/25 09:47 20 MEQ Potassium Chloride (KCl 10% Elixir 20meq/15ml) 20 meq AD PRN PO POTASSIUM PROTOCOL 02/10/25 05:00 03/12/25 04:59 02/25/25 09:30 20 MEQ Prednisone (deltaSONE/ oraSONE 20MG TAB) 20 mg DAILY PO 02/23/25 12:30 02/26/25 13:00 DC 02/26/25 09:50 20 MG Propofol 100 ml @ 0 mls/hr AD PRN IV SEDATION 02/14/25 10:00 02/18/25 09:59 DC Sacubitril/ Valsartan (Entresto 24 Mg-26 Mg Tablet) 0.5 each BID PO 02/10/25 21:00 02/14/25 09:59 DC 02/13/25 21:11 0.5 EACH Sodium Bicarbonate 25 meq/Dextrose 1,025 ml @ 0 mls/hr Q0M IV 02/14/25 18:00 03/16/25 17:59 02/18/25 13:03 9.9 MLS/HR Sodium Bicarbonate (Sodium Bicarb 50meq 50ml Vial) 50 meq AD PRN IV OTHER[SEE DOSING INSTRUCTIONS] 02/14/25 10:00 02/17/25 09:59 DC 02/16/25 15:25 50 MEQ Sodium Chloride 500 ml @ 0 mls/hr AD IV 02/14/25 10:00 03/16/25 09:59 Sodium Chloride 1,000 ml @ 10 mls/hr ONCE IV 02/14/25 10:00 02/15/25 09:59 DC Sodium Chloride 1,000 ml @ 100 mls/hr Q10H IV 02/10/25 05:00 02/10/25 17:22 DC 02/10/25 14:20 100 MLS/HR Sodium Chloride (NS Flush 10ml) 10 ml Q8H PRN IVP IV LINE FLUSH 02/14/25 10:00 03/16/25 09:59 Spironolactone (Aldactone 25mg) 25 mg DAILY PO 02/10/25 14:30 02/14/25 09:59 DC 02/13/25 10:52 25 MG Spironolactone (Aldactone 25mg) 25 mg DAILY PO 02/20/25 09:00 03/22/25 08:59 02/28/25 09:47 25 MG Tramadol HCl (UltRAM) 25 mg Q6H PRN PO MODERATE PAIN (4-6) 02/14/25 10:00 02/19/25 09:59 DC Tramadol HCl (UltRAM) 50 mg Q6H PRN PO SEVERE PAIN (7-10) 02/14/25 10:00 02/19/25 09:59 DC Vancomycin HCl 250 ml @ 125 mls/hr Q12H IV 02/18/25 11:30 02/21/25 05:33 DC 02/19/25 11:20 125 MLS/HR Vancomycin HCl 250 ml @ 125 mls/hr Q24H IV 02/21/25 06:00 02/24/25 05:57 DC 02/23/25 06:28 125 MLS/HR Vancomycin HCl 250 ml @ 125 mls/hr Q24H IV 02/24/25 06:30 02/24/25 12:15 DC 02/24/25 06:26 125 MLS/HR Vancomycin HCl (Vancomycin Protocol) 1 each AD IV 02/18/25 11:00 02/24/25 12:15 DC Vasopressin 40 units/Sodium Chloride 40 ml @ 0 mls/hr PROTOCOL IV 02/14/25 13:00 03/16/25 12:59 02/14/25 22:11 1.8 MLS/HR DIAGNOSTICS / RADIOLOGY: [place] [address] [place] [address] IMAGING REPORT Signed PATIENT: EMMY GRACE MR#: [id number] : 1950 SEX: M AGE: 74 LOCATION: [facility] ORDER 5 STATUS: ADM IN REPORT#: [id number] SERVICE 3 REASON: follow up after thiracocentesis ORDERING PHYSICIAN: SUBHA DEL VALLE MD PROCEDURE: CXR1VW - CHEST 1VW STUDY: X-RAY OF THE CHEST, 1 VIEW HISTORY: Follow-up after thoracentesis. TECHNIQUE: A single frontal view of the chest is submitted for interpretation. COMPARISON: Chest radiograph from 02/26/2025 at 20:12. FINDINGS: Pulmonary heck: Stable small left basilar airspace opacity adjacent to the left hemidiaphragm, compatible with atelectasis adjacent to a small pleural effusion. The right lung remains clear without focal consolidation. Cardiac silhouette: Cardiac size is within normal limits and unchanged. Mediastinum and renzo: Mediastinal contours and hilar structures are within normal limits without new widening or mass. Median sternotomy wires are again noted. Osseous structures: Visualized ribs, clavicles, scapulae, and thoracic spine demonstrate no acute or aggressive osseous abnormality. Miscellaneous: Stable small left pleural effusion. No pneumothorax is identified. Costophrenic angles on the right are sharp. IMPRESSION: * Compared with the chest radiograph from 02/26/2025 at 20:12, there is a stable small left pleural effusion with adjacent left basilar atelectasis following thoracentesis, without evidence of pneumothorax. * Clear right lung and stable post-sternotomy cardiac and mediastinal contours, without new acute cardiopulmonary abnormality. /[facility] DICTATED BY: PAOLO LYNN MD DATE: 02/27/252257 ELECTRONICALLY SIGNED BY: PAOLO LYNN MD DATE: 02/27/252257 ASSESSMENT: Chest pain rule out ACS: NSTEMI POA Suspected pneumonia findings on Chest X-ray Possible metabolic encephalopathy Hyperglycemia secondary to uncontrolled diabetes POA Hyperlipidemia POA Medication noncompliance, POA Obesity POA OK/Coronary artery disease with cardiac stent POA PLAN: Pending SNF Approval NSTEMI POA: * EKG was done which revealed sinus rhythm heart rate 85 with atrial premature complex anterolateral infarct age indeterminate. Second EKG result revealed sinus rhythm heart rate 73 with left anterior fascicular block. Probable anterolateral infarct age indeterminate. Abnormal T consider ischemia lateral leads. * PERC score was one, Wells score was zero. Very low suspicion for Pulmonary Embolism. * Chest X - ray on 02.25.2025 - Persistent small left pleural effusion with left mid and lower zone airspace opacities, significantly unchanged from prior study. * Thoracentesis done today - removed 1.1 lit of fluid by Dr. Louie and the patient tolerated the procedure well * Chest x-ray done on 02/17/25 show, small stable left pleural effusion with adjacent lung atelectasis. follow up x-ray from 02/22/25 show Cardiomegaly with median sternotomy with cardiac revascularization procedure, there is suggestion of a moderate left-sided pleural effusion. * 2-D ECHO on 02/19/25 show LVEF of 25-30% with segmental akinesis (apical, apical lateral, anteroapical), LDL 89, BNP 488 * Troponin trends 21>[id number] * Left heart catheterization revealed severe three-vessel CAD with occluded mid LAD, 90% proximal left circumflex, 95% distal RCA, and 90% ostial PDA. * As per CT surgeon recommendations Entresto 0.5 each, was held. 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 * On aspirin 81 mg p.o. * Patient started on lasix 20mg IV, Aldactone 25mg. His total output in the past 24 hours has been 2300 versus 690. * Impella removed * Epinpehrine drip was discontinued and patient was started on Coreg 31.125, * Jardiance 10mg was held due to elevated bicarb. * Possible AICD or lifevest as per cardiology Suspected pneumonia findings on Chest X-ray * Chest x-ray done on 02/16/25 show diffuse airspace disease of the left lung, predominantly involving the left lower zone, could be due to an infection or atelectasis. Questionable left pleural effusion. * Chest x-ray done on 02/17/25 show, small stable left pleural effusion with adjacent lung atelectasis. follow up x-ray from 02/19/25 show no interval change. * Patient started on Zosyn from 02/20/25 * WBC count on (02/28/25) - 14.7 * Patient started on Prednisone 20mg PO * Will monitor with daily labs. Possible metabolic encephalopathy * Chest x-ray done on 02/17/25 show, small stable left pleural effusion with adjacent lung atelectasis. * Patient was started on Vancomycin and cefepime due to elevated WBC levels and findings suggestive of pneumonia on chest x-ray * Cefepime was discontinued on 02/20/25 because the patient was confused, agitated and combative suspecting the cause of his confusion and was started on Zosyn. * Will monitor with daily labs Hyperglycemia secondary to uncontrolled diabetes POA: * HbA1c 13.9, blood glucose 150 * Following the Endocrinology recommendations. He is on Lantus 15 units, low- dose sliding scale insulin * Jardiance 10mg was held due to elevated bicarb. * We will monitor blood glucose. Hypokalemia Hypomagnesemia - resolved * Potassium 4.2 - 02.28.2025 * Magnesium 2 (02.27.2025) * We will replete the electrolytes and monitor. * Keep potassium above 4 and magnesium above 2. * We will start Slow-Mag oral t.i.d. once and will keep monitoring magnesium levels. Supportive measures * GI prophylaxis with Famotidine * DVT prophylaxis with SCD's ATTESTATION BY PHYSICIAN I have seen and examined the patient. I reviewed the documentation, medical decision making, and treatment plan as noted by the resident provider above. I agree with the findings and plan of care. CristoferJuanjo edwards MD, LAKSHMI MD Feb 28, 2025 14:15
--- NOTE | 2025-02-28 15:10 | PN ---
[facility] PROGRESS NOTE Date Patient Seen: Feb 28, 2025 Time of Visit: 15:04 Supervising Physician: [ Dr Trey Louie] Primary Care Physician: KELLEY ENCINAS MD Outpatient Specialists: Inpatient Consults: BIS PROBLEM LIST: CAD, status post CABG x3 Left-sided hemothorax s/p thoracentesis on 02/26/2025 with 1100 cc blood drained Impella and a intra-aortic balloon pump support Type 2 diabetes with hyperglycemia Congested heart failure EF 20% Obstructive coronary artery disease Atherosclerosis Primary hypertension Morbid obesity; BMI 36 Cardiogenic shock; resolved INTERVAL HISTORY: Patient seen and evaluated, patient is sitting up resting comfortably. All labs and imaging have been reviewed. No acute events overnight. Patient on room air. Plan: Pending SNF her primary Case management Possible AICD versus life vest placement We will follow cardiology recommendations Supplemental O2 REVIEW OF SYSTEMS: 12 point ROS reviewed with patient. Pertinent positives mentioned above. Otherwise negative. PHYSICAL EXAM: GENERAL: Patient comfortable in bed, HEENT: EOMI, Sclera non icteric, moist mucosa NECK: Supple, no JVD, trachea midline LUNGS: Clear breath sounds bilaterally. No wheezes HEART: Regular rate and rhythm. Normal S1 and S2, without murmurs sternum wound looks clean, no bleeding or discharge. ABD: Abdomen soft, nontender. Bowel sounds present EXT: Edema and hyperemia to the right ankle have improved compared to yesterday NEURO: Awake alert and oriented Vital Signs (last 8hr) Date Time Temp Pulse Resp B/P (MAP) Pulse Ox O2 Delivery O2 Flow Rate FiO2 02/28/25 12:00 98.1 70 18 94/53 98 Room Air 21 02/28/25 09:50 103/61 02/28/25 07:45 97.9 70 18 103/61 97 Room Air 21 LABS: Hematology Labs: Test 02/28/25 05:34 Range/Units White Blood Count 14.7 H 4.8-10.8 K/uL Red Blood Count 3.63 L 4.50-6.20 MIL/uL Hemoglobin 10.8 L 14.0-18.0 g/dL Hematocrit 32.7 L 42-54 % Mean Corpuscular Volume 90.1 79-99 fL Mean Corpuscular Hemoglobin 29.8 27.0-33.0 pg Mean Corpuscular Hemoglobin Concent 33.0 32.0-36.0 g/dL Red Cell Distribution Width 16.7 H 11.0-15.5 % Platelet Count 474 H 130-400 K/uL Mean Platelet Volume 10.1 7.5-10.5 fL Immature Granulocyte % (Auto) 1.8 H 0-1 % Neutrophils (%) (Auto) 65.6 40.0-77.0 % Lymphocytes (%) (Auto) 21.1 21.0-51.0 % Monocytes (%) (Auto) 9.9 3.0-13.0 % Eosinophils (%) (Auto) 1.0 0.0-8.0 % Basophils (%) (Auto) 0.6 0.0-5.0 % Neutrophils # (Auto) 9.6 H 1.8-7.7 K/uL Lymphocytes # (Auto) 3.1 1.0-4.8 K/uL Monocytes # (Auto) 1.5 H 0.1-1.0 K/uL Eosinophils # (Auto) 0.15 0.00-0.70 K/uL Basophils # (Auto) 0.09 0.00-0.20 K/uL Absolute Immature Granulocyte (auto 0.26 0-1 K/uL Nucleated Red Blood Cells 0.2 H 0.0-0.19 % Chemistry Labs: Test 02/28/25 11:39 02/28/25 05:34 02/27/25 07:45 02/27/25 05:22 Range/Units Whole Blood Glucose 186 H 70-110 MG/DL Bedside Glucose Comment Notified Nurse Sodium Level 138 136-145 mmol/L Potassium Level 4.2 3.5-5.1 mmol/L Chloride Level 100 L 101-111 mmol/L Carbon Dioxide Level 26 21-32 mmol/L Blood Urea Nitrogen 26 H 7-18 mg/dL Creatinine 1.2 0.5-1.3 mg/dL Glomerular Filtration Rate Calc 63 >90 mL/min Random Glucose 150 H 70-105 mg/dL Total Calcium 8.6 8.5-10.1 mg/dL Iron Level 61 L 65-175 mcg/dL Total Iron Binding Capacity 154 L 250-450 mcg/dL Percent Iron Saturation 39.6 30-44 % Magnesium Level 2.00 1.80-2.40 mg/dL DIAGNOSTICS / RADIOLOGY RESULTS: [ ] NEURO: Minimize central acting medications as possible. Maintain fall precautions, adequate lighting during the day PULMONARY: Supplemental 02 as needed. Maintain aspiration precautions at all times CARDIOVASCULAR: Follow hemodynamics. Vital signs per facility protocol GI & NUTRITION: Continue with nutritional support. Continue stool softeners and laxatives as needed. KIDNEYS & ELECTROLYTES: Strict monitoring of intake, output and overall fluid balance. Avoid nephrotoxic medications to the extent possible. Medications to be dosed according to renal function. Monitor electrolytes and replace as needed ENDOCRINE: Maintain blood glucose between 100-180 at all times. Hypoglycemia protocol in place INFECTIOUS DISEASE: Trend temperature, WBC and procalcitonin level Follow cultures, deescalate antibiotics as soon as possible. Panculture if new onset fever ONCOLOGY/HEMATOLOGY/COAGULATION: Monitor for s/s of bleeding Monitor hemoglobin, coagulation studies as needed SKIN: Pressure ulcer prevention per facility protocol Specialty mattress ORTHO/REHAB: Continue PT/OT Prophylaxis: Continue GI and DVT prophylaxis Code Status: Full Resuscitation Disposition: as per cardiovascular MAGGIE JARRELL PAC Feb 28, 2025 15:10
[2025-02-28] MEDS: LACTULOSE 20 GM/30 ML UDCUP PO PRN (15:56)
--- NOTE | 2025-02-28 19:49 | PN ---
INFECTIOUS DISEASE PROGRESS NOTE Date of Service: Feb 28, 2025 SUBJECTIVE: This 74-year-old male patient who was seen and examined at bedside in room 223. Patient is s/p thoracentesis on 02/26/2025 with 1.5 L fluid removed. Patient is now saturating 98% on room air. We will continue on Zosyn. Per report [place] was not in network and patient was referred to [facility]. PHYSICAL EXAM EYES: Anicteric. Pupils equal and reactive. HENT: No oral thrush seen, moist Oral mucosa. NECK: Supple, no JVD or thyromegaly. LUNGS: Oxygen support via nasal cannula. CHEST: Sternal incision. CARDIOVASCULAR: S1, S2 regular. No murmur heard. ABDOMEN: Soft, non tender, bowel sounds present. CENTRAL NERVOUS SYSTEM: Awake, alert, oriented. SKIN: No rashes, no swelling. Vein harvesting surgical incisions to bilateral lower extremities.. LYMPHATICS: No peripheral lymphadenopathy. MUSCULOSKELETAL: No joint swelling, erythema or tenderness. EXTREMITIES: No cyanosis or clubbing. 1+ edema to bilateral feet, improved. BACK: No deformity, no pressure ulcer. GENITOURINARY: No dysuria or hematuria. Vital Sign (Last 12 Hours) 02/28/25 02/28/25 02/28/25 02/28/25 08:00 09:50 12:00 16:00 Temp 98.1 97.7 Pulse 70 69 Resp 18 18 B/P (MAP) 103/61 94/53 90/55 Pulse Ox 98 98 99 O2 Delivery Room Air* Room Air Room Air O2 Flow Rate 0 FiO2 21 21 21 Intake & Output (last 24hrs) 02/27/25 02/27/25 02/28/25 15:00 23:00 07:00 Intake Total 600.0 ml Output Total 400 ml Balance 600.0 ml -400 ml LABS: Laboratory: Test 02/28/25 15:29 02/28/25 11:39 02/28/25 05:34 02/27/25 07:45 Range/Units Whole Blood Glucose 168 H 70-110 MG/DL Bedside Glucose Comment Notified Nurse White Blood Count 14.7 H 4.8-10.8 K/uL Red Blood Count 3.63 L 4.50-6.20 MIL/uL Hemoglobin 10.8 L 14.0-18.0 g/dL Hematocrit 32.7 L 42-54 % Mean Corpuscular Volume 90.1 79-99 fL Mean Corpuscular Hemoglobin 29.8 27.0-33.0 pg Mean Corpuscular Hemoglobin Concent 33.0 32.0-36.0 g/dL Red Cell Distribution Width 16.7 H 11.0-15.5 % Platelet Count 474 H 130-400 K/uL Mean Platelet Volume 10.1 7.5-10.5 fL Immature Granulocyte % (Auto) 1.8 H 0-1 % Neutrophils (%) (Auto) 65.6 40.0-77.0 % Lymphocytes (%) (Auto) 21.1 21.0-51.0 % Monocytes (%) (Auto) 9.9 3.0-13.0 % Eosinophils (%) (Auto) 1.0 0.0-8.0 % Basophils (%) (Auto) 0.6 0.0-5.0 % Neutrophils # (Auto) 9.6 H 1.8-7.7 K/uL Lymphocytes # (Auto) 3.1 1.0-4.8 K/uL Monocytes # (Auto) 1.5 H 0.1-1.0 K/uL Eosinophils # (Auto) 0.15 0.00-0.70 K/uL Basophils # (Auto) 0.09 0.00-0.20 K/uL Absolute Immature Granulocyte (auto 0.26 0-1 K/uL Nucleated Red Blood Cells 0.2 H 0.0-0.19 % Sodium Level 138 136-145 mmol/L Potassium Level 4.2 3.5-5.1 mmol/L Chloride Level 100 L 101-111 mmol/L Carbon Dioxide Level 26 21-32 mmol/L Blood Urea Nitrogen 26 H 7-18 mg/dL Creatinine 1.2 0.5-1.3 mg/dL Glomerular Filtration Rate Calc 63 >90 mL/min Random Glucose 150 H 70-105 mg/dL Total Calcium 8.6 8.5-10.1 mg/dL Iron Level 61 L 65-175 mcg/dL Total Iron Binding Capacity 154 L 250-450 mcg/dL Percent Iron Saturation 39.6 30-44 % Test 02/27/25 05:22 Range/Units Magnesium Level 2.00 1.80-2.40 mg/dL ASSESSMENT: Hospital-acquired pneumonia. Leukocytosis. 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 Postop anemia. Left Pleural effusion. Diabetes mellitus. Congestive heart failure. PLAN: Continue on Zosyn. Continue GI prophylaxis. Continue diuretics Monitor electrolytes. Continue oxygen support. Continue physical therapy. [place] not in network and patient was referred to [facility]. This case was reviewed and discussed with my supervising physician Dr. Harrell and the above assessment and plan was formulated and agreed upon. ATTESTATION BY PHYSICIAN I have seen and examined the patient. I reviewed the documentation, medical decision making, and treatment plan as noted by the mid-level provider above. I agree with the findings and plan of care. BERENICE HARRELL MD, MIRTA L [facility] Feb 28, 2025 19:49
[2025-03-01] VITALS (9 sets, daily range): BP systolic 84–112; BP diastolic 49–61; PULSE 64–75; RESP 16–18; TEMP 97.3–98.3; O2SAT 98
--- NOTE | 2025-03-01 01:05 | PN ---
SUBJECTIVE: Status post CABG for the large anterolateral myocardial infarction and left ventricular function. The patient's ejection fraction is about 20% after revascularization and he underwent revascularization supported by Impella 5-5, which was removed last week. OBJECTIVE: GENERAL: The patient is awake, alert, and in no acute distress. VITAL SIGNS: Stable as recorded in the medical record. CHEST: Sternum stable. Incision healed. HEART: Regular rate and rhythm. No rubs, gallops, or murmur. LUNGS: Clear. EXTREMITIES: With pulses. ASSESSMENT: Status post coronary artery bypass grafting. PLAN: * Congestive heart failure. Assess ventricular function prior to decide whether the patient will be a candidate for an AICD. * Coronary artery disease. Continue aspirin, Plavix, and beta-blockers. * Fluid overload, Lasix 20 mg twice a day. * Disposition: PT/OT, cardiac rehab, discharge planning. TID: [id number] RECEIPT: [id number]
[2025-03-01 06:50] LABS: IMMATURE GRANULOCYTE ABSOLUTE 0.30 K/uL (0-1); NUCLEATED RED BLOOD CELLS 0.2 % (0.0-0.19); PLATELET COUNT (AUTO) 540 K/uL (130-400); RED BLOOD CELL COUNT(AUTO) 4.21 MIL/uL (4.50-6.20); RED CELL DISTRIBUTION WIDTH 18.0 % (11.0-15.5); WHITE BLOOD COUNT (AUTO) 15.5 K/uL (4.8-10.8)
[2025-03-01 06:59] LABS: CREATININE 1.5 mg/dL (0.5-1.3); GLOMERULAR FILTR. RATE CALC 48.0 mL/min (>90); GLUCOSE,RANDOM 164.0 mg/dL (70-105); SODIUM SERUM 135.0 mmol/L (136-145); UREA NITROGEN, BLOOD 25.0 mg/dL (7-18)
--- NOTE | 2025-03-01 10:45 | PN ---
[facility] PROGRESS NOTE Date Patient Seen: Mar 01, 2025 Time of Visit: 10:43 Supervising Physician: Dr Alyssa Carrillo Primary Care Physician: KELLEY ENCINAS MD Outpatient Specialists: Inpatient Consults: BIS PROBLEM LIST: CAD, status post CABG x3 Left-sided hemothorax s/p thoracentesis on 02/26/2025 with 1100 cc blood drained Impella and a intra-aortic balloon pump support Type 2 diabetes with hyperglycemia Congested heart failure EF 20% Obstructive coronary artery disease Atherosclerosis Primary hypertension Morbid obesity; BMI 36 Cardiogenic shock; resolved INTERVAL HISTORY: Patient seen and evaluated, patient is sitting up resting comfortably. All labs and imaging have been reviewed. No acute events overnight. Patient on room air. Patient continues to diurese on Lasix Pending measurement for his LifeVest Plan: Anticipate discharge to SNF Post LifeVest Continue diuresis Supplemental O2 if needed Cardiac rehab REVIEW OF SYSTEMS: 12 point ROS reviewed with patient. Pertinent positives mentioned above. Otherwise negative. PHYSICAL EXAM: GENERAL: Patient comfortable in bed, HEENT: EOMI, Sclera non icteric, moist mucosa NECK: Supple, no JVD, trachea midline LUNGS: Clear breath sounds bilaterally. No wheezes HEART: Regular rate and rhythm. Normal S1 and S2, without murmurs sternum wound looks clean, no bleeding or discharge. ABD: Abdomen soft, nontender. Bowel sounds present EXT: Edema and hyperemia to the right ankle have improved compared to yesterday NEURO: Awake alert and oriented Vital Signs (last 8hr) Date Time Temp Pulse Resp B/P (MAP) Pulse Ox O2 Delivery O2 Flow Rate FiO2 03/01/25 09:28 98/56 03/01/25 07:55 97.5 70 16 92/55 97 Room Air 03/01/25 04:00 98.1 68 18 104/61 94 Room Air LABS: Hematology Labs: Test 03/01/25 06:44 Range/Units White Blood Count 15.5 H 4.8-10.8 K/uL Red Blood Count 4.21 L 4.50-6.20 MIL/uL Hemoglobin 12.5 L 14.0-18.0 g/dL Hematocrit 38.4 L 42-54 % Mean Corpuscular Volume 91.2 79-99 fL Mean Corpuscular Hemoglobin 29.7 27.0-33.0 pg Mean Corpuscular Hemoglobin Concent 32.6 32.0-36.0 g/dL Red Cell Distribution Width 18.0 H 11.0-15.5 % Platelet Count 540 H 130-400 K/uL Mean Platelet Volume 10.0 7.5-10.5 fL Immature Granulocyte % (Auto) 1.9 H 0-1 % Neutrophils (%) (Auto) 64.9 40.0-77.0 % Lymphocytes (%) (Auto) 22.3 21.0-51.0 % Monocytes (%) (Auto) 9.0 3.0-13.0 % Eosinophils (%) (Auto) 1.3 0.0-8.0 % Basophils (%) (Auto) 0.6 0.0-5.0 % Neutrophils # (Auto) 10.0 H 1.8-7.7 K/uL Lymphocytes # (Auto) 3.4 1.0-4.8 K/uL Monocytes # (Auto) 1.4 H 0.1-1.0 K/uL Eosinophils # (Auto) 0.20 0.00-0.70 K/uL Basophils # (Auto) 0.10 0.00-0.20 K/uL Absolute Immature Granulocyte (auto 0.30 0-1 K/uL Nucleated Red Blood Cells 0.2 H 0.0-0.19 % Red Blood Cell Morphology See comments Chemistry Labs: Test 03/01/25 06:44 03/01/25 05:44 02/28/25 11:39 Range/Units Sodium Level 135 L 136-145 mmol/L Potassium Level 4.2 3.5-5.1 mmol/L Chloride Level 96 L 101-111 mmol/L Carbon Dioxide Level 29 21-32 mmol/L Blood Urea Nitrogen 25 H 7-18 mg/dL Creatinine 1.5 H 0.5-1.3 mg/dL Glomerular Filtration Rate Calc 48 >90 mL/min Random Glucose 164 H 70-105 mg/dL Total Calcium 9.3 8.5-10.1 mg/dL Whole Blood Glucose 157 H 70-110 MG/DL Bedside Glucose Comment Notified Nurse DIAGNOSTICS / RADIOLOGY RESULTS: [ ] NEURO: Minimize central acting medications as possible. Maintain fall precautions, adequate lighting during the day PULMONARY: Supplemental 02 as needed. Maintain aspiration precautions at all times CARDIOVASCULAR: Follow hemodynamics. Vital signs per facility protocol GI & NUTRITION: Continue with nutritional support. Continue stool softeners and laxatives as needed. KIDNEYS & ELECTROLYTES: Strict monitoring of intake, output and overall fluid balance. Avoid nephrotoxic medications to the extent possible. Medications to be dosed according to renal function. Monitor electrolytes and replace as needed ENDOCRINE: Maintain blood glucose between 100-180 at all times. Hypoglycemia protocol in place INFECTIOUS DISEASE: Trend temperature, WBC and procalcitonin level Follow cultures, deescalate antibiotics as soon as possible. Panculture if new onset fever ONCOLOGY/HEMATOLOGY/COAGULATION: Monitor for s/s of bleeding Monitor hemoglobin, coagulation studies as needed SKIN: Pressure ulcer prevention per facility protocol Specialty mattress ORTHO/REHAB: Continue PT/OT Prophylaxis: Continue GI and DVT prophylaxis Code Status: Full Resuscitation Disposition: as per cardiovascular MAGGIE JARRELL PAC Mar 01, 2025 10:45
--- NOTE | 2025-03-01 11:10 | NUR ---
DC PLAN ZOLL GOT TRIGGER FOR [facility]. DANIAL SIGNED BY PATIENT. SENT PACKET WITH TELEPHONE ORDER ON FORM. SPOKE TO [facility] NOT IN CLINIC. SPOKE TO SMOKE ROOM OPERATOR SAID WOULD HAVE PROCEDURES TODAY. LEFT FORM FOR MD TO SIGN IN SMOKE ROOM OPERATOR. CM WILL CONTINUE TO FOLLOW.
--- NOTE | 2025-03-01 14:43 | PN ---
[facility] PROGRESS NOTE Date of Service: Mar 01, 2025 Time of Service: 14:31 HISTORY OF PRESENT ILLNESS: This is a 74-year-old male,a [employer] by v[employer] whith past medical history of diabetes, hyperlipidemia and AL/coronary artery disease with cardiac stent who presented to the Ed for complaints of midsternal chest pain that is non radiating associated with diaphoresis and this happened when patient was laying down in bed aroun 11:50 pm last night and decided to come to the ED for evaluation.Patient reports pain was persistent.As per patient he had a history of heart attack before and underwent a stent placement.Patient reports the only medication he is taking is Metformin.Patient states he is supposed to be on Aspirin but has stopped taking it.Patient reports he occasionally drinks beer and last drink was yesterday ,had 2 beers he said. Seen and examined patient in the ER awake,alert and coherent,appears comfortable.Patient denies fever,chills,cough,nausea,vomiting,palpitation and shortness of breath. Latest vital signs temperature 98.2, heart rate 75, blood pressure 124/70 saturation 97% on room air. Labs: CBC unremarkable. Chloride 99, BUN 21, random glucose 469 to 439 to 327. Troponin from -. ECG result revealed revealed sinus rhythm heart rate 85 with atrial premature complex anterolateral infarct age indeterminate. Second EKG result revealed sinus rhythm heart rate 73 with left anterior fascicular block. Probable anterolateral infarct age indeterminate. Abnormal T consider ischemia lateral leads.. Chest x-ray result revealed no acute cardiopulmonary process is evident. While in the ER patient received 1500 mL NS bolus, insulin 5 units IV, aspirin 325 mg p.o. and patient was started on heparin drip per [facility] protocol. SUBJECTIVE: 02/10/25: Patient was seen and evaluated in ED9. Patient was alert, awake and orientedX3. Patient reports that he doesn't have any chest pain today. Patient reports occasional shortness of breath during nights. Patient denies any shortness of breath, nausea, vomiting, palpitations and lightheadedness. Patient denies any abdominal pain, burning urination. Patient mentions that he only takes metformin 3-4 times per week and has stopped taking aspirin because it wasn't reconciled. Troponin from -. 2D ECHO was done, pending results. Patient is currently on Heparin drip 02/11/25: Patient was evaluated at the bedside this morning. No overnight event. He is AAO x3. patient reported that he does not have chest pain or shortness of breath. He is hemodynamically stable. The labs remarkable for potassium 3.3, magnesium 1.6, HbA1c 13.9, troponin 15900. Left heart catheterization revealed severe triple-vessel disease. Echocardiogram revealed 25% ejection fraction with segmental akinesis. CT surgery was consulted who recommended CABG with Impella left ventricle assist. Family to decide about the procedure. He is currently on heparin drip, aspirin. Endocrinology on board. Rest of the plan as discussed below. 02/12/25: Patient was evaluated at the bedside this morning. No overnight event. He is AAO x3. patient reported that he does not have chest pain or shortness of breath. He is hemodynamically stable. Cardiology is on board and Dr. Blanton have suggested low-dose beta estela like metoprolol tartrate 12.5 mg b.i.d. for his heart failure. Dr Kaur still recommends CABG with 5.5 Impella LVAD and the patient agrees to it. We will continue Entresto, Aldactone, Jardiance, aspirin, Lasix as per CT surgeon recommendations. Today his potassium is 3.1 and we would like to be above 4 for CABG patients. So we will replace potassium 02/13/25: Patient was seen and evaluated in room 201. Patient reports feeling better. patient denies any chest pain, shortness of breath. He is continuing on Entresto, Aldactone, Jardiance, aspirin, Lasix as per CT surgeon recommendations.Patients Potassium today is 3.7, will continue replacing potassium. Patients was present along with the patient, she has a few question about the CABG procedure which she wanted to ask Dr. Alexis. 02/14/25. Patient was undergoing CABG procedure today in the morning. 02/15/25: Patient was seen and evaluated in room 213. Patient status post CABG day 1. Patient denies any fever, chills, shortness of breath. Patient complaints of pain along the incision. Patient is on IABP and Impella support. patient is on Vasopressin and Norepinephrine drip. Entresto, Aldactone, Jardiance were discontinued by Dr. Alexis. CT surgery are on the case and will follow their recommendations. 02/16/25: Patient was seen and evaluated in room 213. Patient status post CABG day 2. patient was asleep when we went bedside. Spoke with the nurse regarding overnights and she mentioned that patient was a bit confused in the night but later improved with sleep. Patient is continuing on Epinephrine drip. Patient was weaned off IABP and is currently only on Impella. Patient was started on Vancomycin and cefepime due to elevated WBC levels and findings suggestive of pneumonia on chest x-ray 02/17/25: Patient was seen and evaluated in room 213. Patient status post CABG day 2. patient was asleep when we went bedside. Spoke with the nurse regarding overnights and he mentioned that patient was started on lasix protocol. Patient is continuing on Epinephrine drip and Impella. Critical care are on the case and will follow their recommendations. 02/18/25: Patient was seen and examined at bedside. He is status post CABG day 3. He continues on Lasix drip 2.5, With Impella P3 support and epinephrine drip. His total output in the past 24 hours has been optimal, 4740 versus 2165 input. No acute events overnight. We will follow CTS recommendations regarding further weaning off Impella. 02/19/25: Patient was seen and evaluated in room 210. He is status post CABG day 4. He continues on Lasix drip 2.5, With Impella P3 support and epinephrine drip. His total output in the past 24 hours has been 2905 versus 4072. No acute overnight. Patient is scheduled for possible impella removal tomorrow. 02/20/25: Patient was seen and evaluated in room 210. He is status post CABG day 5. He continues on Lasix drip 2.5, Impella setting have been maintained at P3 settings. He is continuing on epinephrine drip. Cefepime was discontinued yesterday because overnight the patient was confused, agitated and combative suspecting the cause of his confusion and started on Zosyn. His total output in the past 24 hours has been 2675 versus 2206. Patient is scheduled for possible impella removal tomorrow. 02/21/25: Patient was seen and evaluated in room 210. He is status post CABG day 6. Patient is continuing on Epinephrine drip. patient was started on Lasix 20mg IV. Patient is scheduled for impella removal today. Patient is continuing on Zosyn. His total output in the past 24 hours has been 6700 versus 1785. 02/22/25: Patient was seen and evaluated in room 210. He is status post CABG day 7. Patient reports feeling better and he doesn't have any active complaints, Impella was removed yesterday and patient is continuing on Epinephrine drip. patient denies any shortness of breath, fever, chills and chest pain. Patient is continuing on Zosyn. His total output in the past 24 hours has been 3650 versus 1775. 02/23/25: Patient was seen and evaluated in room 210. He is status post CABG day 8. Patient complains of pain in left lower extremity, Patient denies any erythema, chest pain. Patient denies any fever, chills, shortness of breath, and dizziness. Ankle X-ray, US venous Doppler was ordered, will follow the results. Patient is continuing on lasix 20mg. His total output in the past 24 hours has been 4900 versus 1829. 02/24/25: Patient was seen and evaluated in room 210. He is status post CABG day 9. Patient is alert, awake, oriented X3. Patient reports that his pain in the left lower leg is getting better. Venous US ordered yesterday came back unrem arkable. Patient denies any chest pain, shortness of breath. Epinephrine drip was discontinued. Patient was started back on Coreg 3.125mg, Jardiance 10mg under cardiology recommendations. His total output in the past 24 hours has been 3300 versus 1560. 02/25/25: Patient was seen and evaluated in room 233 along with his . He is status post CABG day 10. Patient's mentioned that the patient passed blood clots in urine, Patient denies any burning micturition or difficulty urinating. Patient is alert, awake, oriented X3. Patient denies any pain in left lower extremity, Patient denies any chest pain, shortness of breath. Jardiance was stopped because of elevated bicarb. His total output in the past 24 hours has been 2300 versus 690. 02.26.2024: Patient is seen and evaluated in room 223. His current blood pressure is 105/57. He is on Aspirin, Lasix, Coreg, Jardiance, Aldactone, and Lipitor. Case management is coordinating cardiac rehabilitation and potential SNF placement tomorrow. Pulmonology advised thoracentesis for left pleural effusion, the patient is saturating above 95%. The patient reports no dyspnea or orthopnea. He is receiving 12 units of Lantus and is off the insulin drip. He is on Zosyn and Vancomycin, and his WBC is 15.4 today. Bilirubin is trending down to 1.3 02.27.2025: Patient is seen and evaluated in room 223. He has no active complaints, and the nurse reports no overnight events. Chest X-ray demonstrates improvement from yesterday following thoracentesis. Case management is arranging placement to a senior living facility, pending approval. From the cardiology perspective, the patient is cleared and approved for discharge to rehab. 02.28.2025: Patient is seen and evaluated in room 223. Cardiology left a note indicating possible AICD or LifeVest placement. Patient denies chest pain, shortness of breath, palpitations, and reports no lower-extremity edema. WBC is 14.7 today and trending down. Hemoglobin remains stable at 10.8. Chloride is 100 and BUN is 26. Blood sugars are 150 . Lantus has been increased from 12 units to 15 units. Pending referral to cardiac rehab. 03.01.2025: Patient is seen and evaluated in Room No. 223. The patient appears fluid overloaded. Laboratory results are as follows: WBC 15.5, Hemoglobin 12.5, Platelet count 540, Sodium 135, Chloride 96, BUN 25, Creatinine 1.5. Per Dr. Alexis, ventricular function will be assessed to determine candidacy for an AICD. The patient was previously on Lasix 40 mg, but due to rising BUN and creatinine, the dose has been reduced to Lasix 20 mg twice daily for volume management. REVIEW OF SYSTEMS CONSTITUTIONAL: Denies fevers, chills, or night sweats. No unintentional weight loss reported. NEUROLOGICAL: Denies headache, amaurosis fugax, motor weakness, sensory deficit, vertigo/spinning sensation, gait abnormalities, or tremors. ENT: No hearing loss, otalgia, otorrhea, rhinitis, rhinorrhea, hoarseness, or sore throat. CARDIOVASCULAR: Denies chest pain, dyspnea on exertion, orthopnea, paroxysmal nocturnal dyspnea, palpitations, life-threatening arrhythmias, claudication. PULMONARY: Denies any cough, phlegm/sputum, hemoptysis, pleuritic chest pain. GASTROINTESTINAL: Denies any type of dysphagia to either liquids or solids. Denies nausea, vomiting, pyrosis, early satiety, abdominal pain, diarrhea, constipation, or changes in stool consistency or caliber. Denies coffee-ground emesis, hematemesis, hematochezia, or melanotic stools. GENITOURINARY: Denies frequency, urgency, nocturia, hematuria or incontinence (Storage/Irritative symptoms.) Low urinary stream, straining to void, urinary intermittency or hesitancy, splitting of the voiding stream, terminal dribbling. PHYSICAL EXAM GENERAL APPEARANCE: The patient is awake, alert, and oriented, in no acute cardiopulmonary distress. NEUROLOGICAL: Motor is 5/5 in bilateral upper and lower extremities proximal to distal. No sensory deficits. HEENT: Face is symmetric. Pupils are equal and reactive. Extraocular movements are intact. NECK: Supple. No thyromegaly. No submental, submandibular, pre-/postauricular, occipital or supraclavicular lymphadenopathy. CHEST: Normal chest expansion. No Telemetry. LUNGS: Absence of any rales, rhonchi or any wheezing. CARDIOVASCULAR: Regular. S1 and S2 normal. No appreciable rubs, murmurs or gallops. ABDOMEN: Soft, nontender, and nondistended. There is no rebound, voluntary guarding, or rigidity. : Deferred. No De Jesus. EXTREMITIES: Non-edematous and not cyanotic. No clubbing. Good capillary refill. SKIN: sternal scar - post CABG Vital Signs (last 8hr) Date Time Temp Pulse Resp B/P (MAP) Pulse Ox O2 Delivery O2 Flow Rate FiO2 03/01/25 12:08 98.1 75 16 84/50 98 Room Air 03/01/25 09:28 98/56 03/01/25 08:00 98 Room Air* 0 21 03/01/25 07:55 97.5 70 16 92/55 97 Room Air LABS: Laboratory: Test 03/01/25 11:38 03/01/25 06:44 02/28/25 11:39 Range/Units Whole Blood Glucose 220 H 70-110 MG/DL White Blood Count 15.5 H 4.8-10.8 K/uL Red Blood Count 4.21 L 4.50-6.20 MIL/uL Hemoglobin 12.5 L 14.0-18.0 g/dL Hematocrit 38.4 L 42-54 % Mean Corpuscular Volume 91.2 79-99 fL Mean Corpuscular Hemoglobin 29.7 27.0-33.0 pg Mean Corpuscular Hemoglobin Concent 32.6 32.0-36.0 g/dL Red Cell Distribution Width 18.0 H 11.0-15.5 % Platelet Count 540 H 130-400 K/uL Mean Platelet Volume 10.0 7.5-10.5 fL Immature Granulocyte % (Auto) 1.9 H 0-1 % Neutrophils (%) (Auto) 64.9 40.0-77.0 % Lymphocytes (%) (Auto) 22.3 21.0-51.0 % Monocytes (%) (Auto) 9.0 3.0-13.0 % Eosinophils (%) (Auto) 1.3 0.0-8.0 % Basophils (%) (Auto) 0.6 0.0-5.0 % Neutrophils # (Auto) 10.0 H 1.8-7.7 K/uL Lymphocytes # (Auto) 3.4 1.0-4.8 K/uL Monocytes # (Auto) 1.4 H 0.1-1.0 K/uL Eosinophils # (Auto) 0.20 0.00-0.70 K/uL Basophils # (Auto) 0.10 0.00-0.20 K/uL Absolute Immature Granulocyte (auto 0.30 0-1 K/uL Nucleated Red Blood Cells 0.2 H 0.0-0.19 % Red Blood Cell Morphology See comments Sodium Level 135 L 136-145 mmol/L Potassium Level 4.2 3.5-5.1 mmol/L Chloride Level 96 L 101-111 mmol/L Carbon Dioxide Level 29 21-32 mmol/L Blood Urea Nitrogen 25 H 7-18 mg/dL Creatinine 1.5 H 0.5-1.3 mg/dL Glomerular Filtration Rate Calc 48 >90 mL/min Random Glucose 164 H 70-105 mg/dL Total Calcium 9.3 8.5-10.1 mg/dL Bedside Glucose Comment Notified Nurse Current Medications Medications (Trade) Dose Ordered Sig/Carol Route PRN Reason Start Time Stop Time Status Last Admin Dose Admin Acetaminophen (TYLenol 325MG TAB) 650 mg Q4H PRN PO MILD PAIN (1-3) 02/10/25 05:00 02/14/25 10:05 DC Acetaminophen (TYLenol 325MG TAB) 650 mg Q4H PRN PO Temp >38.3C(AFTER EXTUBATION) 02/14/25 10:00 03/16/25 09:59 Acetaminophen (TYLenol 325MG TAB) 650 mg Q6H PRN PO TEMPERATURE GREATER THAN 101.5 02/10/25 05:00 02/14/25 10:17 DC 02/12/25 17:13 650 MG Acetaminophen (TYLenol 325MG TAB) 650 mg Q6H PRN PO MILD PAIN (1-3) 02/14/25 10:00 03/16/25 09:59 Acetaminophen (TYLenol 650MG SUPPOSITORY) 650 mg Q4H PRN RC Temp >38.3C WHILE INTUBATED 02/14/25 10:00 02/23/25 11:52 DC Acetaminophen (acetaMINOPHEN 1,000MG/100ML) 1,000 mg Q6H6 IV 02/14/25 14:00 02/15/25 13:59 DC 02/15/25 12:14 1,000 MG Albumin Human 50 ml @ 0 mls/hr Q12H9 IV 02/20/25 09:00 02/24/25 08:42 DC 02/24/25 08:15 100 MLS/HR Albumin Human 250 ml @ 0 mls/hr AD IV 02/14/25 15:30 02/18/25 10:40 DC 02/18/25 10:27 250 MLS/HR Albumin Human 250 ml @ 0 mls/hr AD IV 02/18/25 10:30 02/20/25 09:03 DC Albumin Human 250 ml @ 0 mls/hr AD PRN IV IF HEMODYNAMICALLY UNSTABLE 02/14/25 10:00 02/14/25 14:42 DC 02/14/25 14:42 500 MLS/HR Aminocaproic Acid 55090 mg/Sodium Chloride 310 ml @ 25 mls/hr AD IV 02/14/25 10:00 02/14/25 10:19 DC Aminocaproic Acid 95482 mg/Sodium Chloride 480 ml @ 0 mls/hr AD PRN IV BLEEDING CONTROL 02/14/25 06:30 02/23/25 11:52 DC Aminocaproic Acid 96033 mg/Sodium Chloride 480 ml @ 0 mls/hr AD PRN IV BLEEDING CONTROL 02/14/25 07:00 02/14/25 06:51 DC Aspirin (Aspirin 325mg Tab) 325 mg ONCE PO 02/10/25 14:30 02/10/25 17:22 DC 02/10/25 14:32 325 MG Aspirin (Aspirin 81mg Ec Tab) 81 mg DAILY PO 02/10/25 09:00 03/12/25 08:59 03/01/25 09:28 81 MG Atorvastatin Calcium (LIPItor 40MG) 40 mg HS PO 02/14/25 21:00 03/16/25 20:59 02/28/25 20:52 40 MG Calcium Gluconate 1 gm/Sodium Chloride 60 ml @ 200 mls/hr AD PRN IV HYPOCALCEMIA 02/14/25 10:00 03/16/25 09:59 02/21/25 08:36 200 MLS/HR Carvedilol (Coreg 3.125MG) 3.125 mg BID PO 02/20/25 21:00 02/24/25 06:13 DC Carvedilol (Coreg 3.125MG) 3.125 mg BID PO 02/24/25 09:00 03/26/25 08:59 03/01/25 09:28 3.125 MG Cefazolin Sodium (Ancef) 2 gm ONCALL IVP 02/13/25 20:00 02/14/25 18:51 DC 02/14/25 08:50 2 GM Cefazolin Sodium (Ancef) 2 gm Q8H IVPB 02/14/25 15:00 02/15/25 07:01 DC 02/15/25 06:25 2 GM Cefepime HCl (MAXipime 1 GM vial) 1 gm Q12H IVPB 02/16/25 10:30 02/20/25 08:16 DC 02/19/25 22:54 1 GM Clopidogrel Bisulfate (plaVIX 300MG TAB) 600 mg ONCE PO 02/10/25 14:00 02/10/25 17:22 DC 02/10/25 14:19 600 MG Clopidogrel Bisulfate (plaVIX 75MG) 75 mg DAILY PO 02/11/25 09:00 02/11/25 07:28 DC Dexmedetomidine/ Sodium Chloride (PRECEdex 400MCG/ 100ML-NS) 400 mcg PROTOCOL IV 02/14/25 10:00 02/15/25 09:59 DC Dexmedetomidine/ Sodium Chloride (PRECEdex 400MCG/ 100ML-NS) 400 mcg PROTOCOL IV 02/20/25 07:30 02/22/25 15:01 DC 02/22/25 05:51 400 MCG Dexmedetomidine/ Sodium Chloride (PRECEdex 400MCG/ 100ML-NS) 400 mcg PROTOCOL IV 02/23/25 00:00 03/25/25 00:00 02/23/25 00:17 400 MCG Dextrose (D50w) 50 ml AD PRN IV HYPOGLYCEMIA PROTOCOL 02/10/25 05:00 02/14/25 10:17 DC Dextrose (D50w) 50 ml AD PRN IV HYPOGLYCEMIA PROTOCOL 02/14/25 10:00 03/16/25 09:59 Docusate Sodium (COLace 100MG CAP) 100 mg BID PO 02/14/25 21:00 03/16/25 20:59 03/01/25 09:28 100 MG Empaglifozin (Jardiance 10mg) 10 mg DAILY PO 02/10/25 14:30 02/14/25 09:59 DC 02/13/25 10:52 10 MG Empaglifozin (Jardiance 10mg) 10 mg DAILY PO 02/20/25 09:00 02/22/25 15:01 DC 02/22/25 09:38 10 MG Empaglifozin (Jardiance 10mg) 10 mg DAILY PO 02/24/25 09:00 02/24/25 13:01 DC 02/24/25 08:47 10 MG Enoxaparin Sodium (Lovenox) 30 mg DAILY SQ 02/17/25 09:00 03/19/25 08:59 03/01/25 09:26 30 MG Epinephrine HCl 10 mg/Sodium Chloride 250 ml @ 0 mls/hr AD PRN IV TITRATE 02/14/25 06:30 03/16/25 06:29 02/20/25 17:32 2.9 MLS/HR Epinephrine HCl 10 mg/Sodium Chloride 250 ml @ 0 mls/hr AD PRN IV TITRATE 02/14/25 07:00 02/14/25 06:51 DC Epinephrine HCl 10 mg/Sodium Chloride 250 ml @ 0 mls/hr AD PRN IV POST-OP CARDIOVASCULAR ORDERS 02/14/25 10:00 02/14/25 10:14 DC Famotidine (Pepcid 20mg Vial) 20 mg BID IV 02/14/25 21:00 02/16/25 07:58 DC 02/15/25 20:15 20 MG Famotidine (Pepcid 20mg Tab) 20 mg BID PO 02/16/25 09:00 02/17/25 07:09 DC 02/16/25 20:03 20 MG Famotidine (Pepcid 20mg Tab) 20 mg DAILY PO 02/10/25 09:00 02/14/25 09:59 DC 02/13/25 10:53 20 MG Famotidine (Pepcid 20mg Tab) 20 mg DAILY PO 02/17/25 09:00 03/18/25 08:59 03/01/25 09:28 20 MG Furosemide (LASix 20MG TAB) 20 mg DAILY PO 02/11/25 09:00 02/14/25 09:59 DC 02/13/25 10:52 20 MG Furosemide (LASix 20MG TAB) 20 mg Q12H PO 02/16/25 09:00 02/16/25 10:21 DC 02/16/25 08:19 20 MG Furosemide (LASix 20MG VIAL) 20 mg ONCE IV 02/10/25 17:00 02/10/25 21:00 DC 02/10/25 17:00 20 MG Furosemide (LASix 20MG VIAL) 20 mg ONCE IV 02/11/25 09:00 02/11/25 07:43 DC Furosemide (LASix 20MG VIAL) 20 mg Q12H IV 02/15/25 09:00 02/16/25 08:59 DC 02/15/25 20:16 20 MG Furosemide (LASix 20MG VIAL) 20 mg Q12H IV 02/20/25 09:00 02/26/25 09:43 DC 02/25/25 21:27 20 MG Furosemide (LASix 20MG VIAL) 20 mg Q12H IV 03/01/25 22:00 03/31/25 21:59 Furosemide (LASix 40MG VIAL) 40 mg Q12H IV 02/26/25 10:00 03/01/25 11:00 DC 03/01/25 09:28 40 MG Furosemide 100 mg/ Sodium Chloride 100 ml @ 0 mls/hr PROTOCOL IV 02/16/25 10:30 02/20/25 09:01 DC 02/19/25 11:35 2.5 MLS/HR Glucagon (Glucagon 1mg Kit) 1 mg AD PRN IM HYPOGLYCEMIA PROTOCOL 02/10/25 05:00 02/14/25 10:17 DC Glucagon (Glucagon 1mg Kit) 1 mg AD PRN IM HYPOGLYCEMIA PROTOCOL 02/14/25 10:00 03/16/25 09:59 Heparin Sodium (Porcine) (HEParin 5,000 UNIT VIAL) *calculation based on ACTUAL B... AD PRN IV HEPARIN PROTOCOL 02/12/25 21:00 02/14/25 09:59 DC 02/12/25 20:16 4,000 UNIT Heparin Sodium/ Dextrose 250 ml @ 0 mls/hr PROTOCOL IV 02/10/25 03:00 02/10/25 17:22 DC 02/10/25 03:00 16.2 MLS/HR Heparin Sodium/ Dextrose 250 ml @ 0 mls/hr Q6H IV 02/11/25 06:30 02/14/25 09:59 DC 02/13/25 13:01 9 MLS/HR Home Med (Home Medication) (Brimonidine-Timolol 0.2%/0.5% EYE DROPS) DAILY OP 02/18/25 09:00 03/20/25 08:59 03/01/25 09:29 1 EACH Insulin Glargine (LANtus 100 UNITS/ML 10 ML VIAL) 10 units DAILY SQ 02/21/25 09:00 02/22/25 19:17 DC 02/22/25 11:54 10 UNITS Insulin Glargine (LANtus 100 UNITS/ML 10 ML VIAL) 12 units DAILY SQ 02/23/25 09:00 02/28/25 05:39 DC 02/27/25 17:30 12 UNITS Insulin Glargine (LANtus 100 UNITS/ML 10 ML VIAL) 12 units DAILY08 SQ 02/13/25 08:00 02/14/25 09:59 DC 02/13/25 10:51 12 UNITS Insulin Glargine (LANtus 100 UNITS/ML 10 ML VIAL) 15 units DAILY SQ 02/28/25 09:00 03/30/25 08:59 03/01/25 09:23 15 UNITS Insulin Glargine (LANtus 100 UNITS/ML 10 ML VIAL) 15 units DAILY08 SQ 02/11/25 08:00 02/13/25 05:24 DC 02/12/25 08:54 15 UNITS Insulin Human Regular (humuLIN R 100 UNIT/ML 3ML) 3 unit TIDAC SQ 02/12/25 07:30 02/14/25 09:59 DC 02/12/25 16:31 3 UNIT Insulin Human Regular (humuLIN R 100 UNIT/ML 3ML) INSULIN SLIDING SCAL... ACHS SQ 02/16/25 11:30 02/28/25 05:39 DC 02/27/25 21:34 2 UNIT Insulin Human Regular (humuLIN R 100 UNIT/ML 3ML) INSULIN SLIDING SCAL... ACHS SQ 02/28/25 07:30 03/30/25 07:29 03/01/25 13:42 4 UNIT Insulin Human Regular (humuLIN R 100 UNIT/ML 3ML) INSULIN SLIDING SCAL... Q4H SQ 02/10/25 05:00 02/10/25 11:10 DC 02/10/25 09:15 6 UNIT Insulin Human Regular (humuLIN R 100 UNIT/ML 3ML) INSULIN SLIDING SCAL... Q6H6 SQ 02/10/25 12:00 02/14/25 09:59 DC 02/11/25 17:29 2 UNIT Insulin Human Regular 100 unit/ Sodium Chloride 100 ml @ 0 mls/hr AD IV 02/14/25 10:00 02/16/25 09:59 DC 02/15/25 06:30 3 MLS/HR Lactulose (Constulose 20gm/ 30ml Udcup) 20 gm BID PRN PO CONSTIPATION 02/14/25 10:00 03/16/25 09:59 02/28/25 15:56 20 GM Latanoprost (Xalatan) 1 DROP FOR EACH EYE HS OP 02/17/25 21:00 03/19/25 20:59 02/28/25 21:19 1 DROP Magnesium Hydroxide (Milk Of Magnesium 30ml) 30 ml DAILY PRN PO CONSTIPATION 02/14/25 10:00 03/16/25 09:59 Magnesium Sulfate 50 ml @ 12.5 mls/hr AD PRN IV MAG LEVEL LESS THAN 2.0 02/14/25 10:00 03/16/25 09:59 02/24/25 08:17 12.5 MLS/HR Magnesium Sulfate 50 ml @ 0 mls/hr PROTOCOL PRN IV OTHER [SEE ORDER COMMENTS] 02/10/25 05:00 02/14/25 10:17 DC 02/12/25 07:13 25 MLS/HR Metoprolol Tartrate (loprESSOR) 12.5 mg BID PO 02/12/25 09:00 02/14/25 09:59 DC 02/14/25 06:44 12.5 MG Metoprolol Tartrate (loprESSOR) 12.5 mg BID PO 02/16/25 09:00 02/20/25 09:01 DC Midodrine (PROAMatine 5 MG TABLET) 10 mg TID PO 02/23/25 14:00 03/25/25 13:59 03/01/25 13:44 10 MG Morphine Sulfate (morPHINE 2MG SYG) 0.5 mg Q2H PRN IV MODERATE PAIN (4-6) IF NPO 02/14/25 10:00 02/15/25 09:59 DC Morphine Sulfate (morPHINE 2MG SYG) 1 mg Q2H PRN IV SEVERE PAIN (7-10) IF NPO 02/14/25 10:30 02/19/25 13:29 DC 02/14/25 14:23 1 MG Nitroglycerin (Nitrostat) 0.4 mg PROTOCOL PRN SL CHEST PAIN 02/10/25 05:00 02/14/25 09:59 DC Nitroglycerin/ Dextrose 0 ml @ 0 mls/hr AD IV 02/14/25 10:00 02/17/25 09:59 DC Norepinephrine Bitartrate 250 ml @ 0 mls/hr AD PRN IV TITRATE 02/14/25 06:30 03/16/25 06:29 02/17/25 01:06 1.9 MLS/HR Norepinephrine Bitartrate 250 ml @ 0 mls/hr AD PRN IV TITRATE 02/14/25 07:00 02/14/25 06:51 DC Norepinephrine Bitartrate 8 mg/ Dextrose 250 ml @ 0 mls/hr AD PRN IV POST-OP CARDIOVASCULAR ORDERS 02/14/25 10:00 02/14/25 10:14 DC Ondansetron HCl (zoFRAN 4MG INJ) 4 mg Q6H PRN IV NAUSEA/VOMITING 02/10/25 05:00 02/14/25 10:17 DC Ondansetron HCl (zoFRAN 4MG INJ) 4 mg Q6H PRN IV NAUSEA/VOMITING 02/14/25 10:00 03/16/25 09:59 Pharmacy Profile Note (Pharmacy Communication) 1 each ONCE MISC 02/14/25 18:00 02/14/25 18:27 DC Pharmacy Profile Note (Pharmacy Communication) 1 each ONCE MISC 02/20/25 11:30 02/20/25 11:19 DC Piperacillin Sod/ Tazobactam Sod 50 ml @ 12.5 mls/hr Q8H IVPB 02/20/25 11:30 02/24/25 18:10 DC 02/24/25 11:45 12.5 MLS/HR Piperacillin Sod/ Tazobactam Sod 50 ml @ 12.5 mls/hr Q8H6 IVPB 02/24/25 22:00 03/06/25 21:59 03/01/25 13:44 12.5 MLS/HR Potassium Phosphate 250 ml @ 42 mls/hr AD PRN IV LOW PHOS LEVEL 02/14/25 10:00 03/16/25 09:59 Potassium Chloride 100 ml @ 100 mls/hr AD PRN IV POTASSIUM PROTOCOL 02/10/25 05:00 02/15/25 06:27 DC 02/15/25 05:43 100 MLS/HR Potassium Chloride 100 ml @ 100 mls/hr AD PRN IV HYPOKALEMIA 02/14/25 10:00 03/16/25 09:59 02/21/25 16:43 100 MLS/HR Potassium Chloride (K-Dur/Klor-Con 20meq) 20 meq AD PRN PO POTASSIUM PROTOCOL 02/10/25 05:00 03/12/25 04:59 02/18/25 20:18 20 MEQ Potassium Chloride (K-Dur/Klor-Con 20meq) 20 meq BID PO 02/19/25 10:30 03/21/25 10:29 03/01/25 09:27 20 MEQ Potassium Chloride (KCl 10% Elixir 20meq/15ml) 20 meq AD PRN PO POTASSIUM PROTOCOL 02/10/25 05:00 03/12/25 04:59 02/25/25 09:30 20 MEQ Prednisone (deltaSONE/ oraSONE 20MG TAB) 20 mg DAILY PO 02/23/25 12:30 02/26/25 13:00 DC 02/26/25 09:50 20 MG Propofol 100 ml @ 0 mls/hr AD PRN IV SEDATION 02/14/25 10:00 02/18/25 09:59 DC Sacubitril/ Valsartan (Entresto 24 Mg-26 Mg Tablet) 0.5 each BID PO 02/10/25 21:00 02/14/25 09:59 DC 02/13/25 21:11 0.5 EACH Sodium Bicarbonate 25 meq/Dextrose 1,025 ml @ 0 mls/hr Q0M IV 02/14/25 18:00 03/16/25 17:59 02/18/25 13:03 9.9 MLS/HR Sodium Bicarbonate (Sodium Bicarb 50meq 50ml Vial) 50 meq AD PRN IV OTHER[SEE DOSING INSTRUCTIONS] 02/14/25 10:00 02/17/25 09:59 DC 02/16/25 15:25 50 MEQ Sodium Chloride 500 ml @ 0 mls/hr AD IV 02/14/25 10:00 03/16/25 09:59 Sodium Chloride 1,000 ml @ 10 mls/hr ONCE IV 02/14/25 10:00 02/15/25 09:59 DC Sodium Chloride 1,000 ml @ 100 mls/hr Q10H IV 02/10/25 05:00 02/10/25 17:22 DC 02/10/25 14:20 100 MLS/HR Sodium Chloride (NS Flush 10ml) 10 ml Q8H PRN IVP IV LINE FLUSH 02/14/25 10:00 03/16/25 09:59 Spironolactone (Aldactone 25mg) 25 mg DAILY PO 02/10/25 14:30 02/14/25 09:59 DC 02/13/25 10:52 25 MG Spironolactone (Aldactone 25mg) 25 mg DAILY PO 02/20/25 09:00 03/22/25 08:59 03/01/25 09:28 25 MG Tramadol HCl (UltRAM) 25 mg Q6H PRN PO MODERATE PAIN (4-6) 02/14/25 10:00 02/19/25 09:59 DC Tramadol HCl (UltRAM) 50 mg Q6H PRN PO SEVERE PAIN (7-10) 02/14/25 10:00 02/19/25 09:59 DC Vancomycin HCl 250 ml @ 125 mls/hr Q12H IV 02/18/25 11:30 02/21/25 05:33 DC 02/19/25 11:20 125 MLS/HR Vancomycin HCl 250 ml @ 125 mls/hr Q24H IV 02/21/25 06:00 02/24/25 05:57 DC 02/23/25 06:28 125 MLS/HR Vancomycin HCl 250 ml @ 125 mls/hr Q24H IV 02/24/25 06:30 02/24/25 12:15 DC 02/24/25 06:26 125 MLS/HR Vancomycin HCl (Vancomycin Protocol) 1 each AD IV 02/18/25 11:00 02/24/25 12:15 DC Vasopressin 40 units/Sodium Chloride 40 ml @ 0 mls/hr PROTOCOL IV 02/14/25 13:00 03/16/25 12:59 02/14/25 22:11 1.8 MLS/HR DIAGNOSTICS / RADIOLOGY: [ ] ASSESSMENT: Chest pain rule out ACS: NSTEMI POA Suspected pneumonia findings on Chest X-ray Possible metabolic encephalopathy Hyperglycemia secondary to uncontrolled diabetes POA Hyperlipidemia POA Medication noncompliance, POA Obesity POA AL/Coronary artery disease with cardiac stent POA PLAN: Pending SNF Approval NSTEMI POA: * EKG was done which revealed sinus rhythm heart rate 85 with atrial premature complex anterolateral infarct age indeterminate. Second EKG result revealed sinus rhythm heart rate 73 with left anterior fascicular block. Probable anterolateral infarct age indeterminate. Abnormal T consider ischemia lateral leads. * PERC score was one, Wells score was zero. Very low suspicion for Pulmonary Embolism. * Chest X - ray on 02.25.2025 - Persistent small left pleural effusion with left mid and lower zone airspace opacities, significantly unchanged from prior study. * Thoracentesis done today - removed 1.1 lit of fluid by Dr. Louie and the patient tolerated the procedure well * Chest x-ray done on 02/17/25 show, small stable left pleural effusion with adjacent lung atelectasis. follow up x-ray from 02/22/25 show Cardiomegaly with median sternotomy with cardiac revascularization procedure, there is suggestion of a moderate left-sided pleural effusion. * 2-D ECHO on 02/19/25 show LVEF of 25-30% with segmental akinesis (apical, apical lateral, anteroapical), LDL 89, BNP 488 * Troponin trends [id number] * Left heart catheterization revealed severe three-vessel CAD with occluded mid LAD, 90% proximal left circumflex, 95% distal RCA, and 90% ostial PDA. * As per CT surgeon recommendations Entresto 0.5 each, was held. 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 * On aspirin 81 mg p.o. * Patient started on lasix 20mg IV, Aldactone 25mg. His total output in the past 24 hours has been 2300 versus 690. * Impella removed * Epinpehrine drip was discontinued and patient was started on Coreg 31.125, * Jardiance 10mg was held due to elevated bicarb. * Possible AICD or lifevest as per cardiology Suspected pneumonia findings on Chest X-ray * Chest x-ray done on 02/16/25 show diffuse airspace disease of the left lung, predominantly involving the left lower zone, could be due to an infection or atelectasis. Questionable left pleural effusion. * Chest x-ray done on 02/17/25 show, small stable left pleural effusion with adjacent lung atelectasis. follow up x-ray from 02/19/25 show no interval change. * Patient on Zosyn- Started on 02/20/25 * WBC count on (03/01/25) - 15.5 * Patient started on Prednisone 20mg PO * Will monitor with daily labs. Possible metabolic encephalopathy * Chest x-ray done on 02/17/25 show, small stable left pleural effusion with adjacent lung atelectasis. * Patient was started on Vancomycin and cefepime due to elevated WBC levels and findings suggestive of pneumonia on chest x-ray * Cefepime was discontinued on 02/20/25 because the patient was confused, agitated and combative suspecting the cause of his confusion and was started on Zosyn. * Will monitor with daily labs Hyperglycemia secondary to uncontrolled diabetes POA: * HbA1c 13.9, blood glucose 150 * Following the Endocrinology recommendations. He is on Lantus 15 units, low- dose sliding scale insulin * Jardiance 10mg was held due to elevated bicarb. * We will monitor blood glucose. Hypokalemia Hypomagnesemia - resolved * Potassium 4.2 - 02.28.2025 * Magnesium 2 (02.27.2025) * We will replete the electrolytes and monitor. * Keep potassium above 4 and magnesium above 2. * We will start Slow-Mag oral t.i.d. once and will keep monitoring magnesium levels. Supportive measures * GI prophylaxis with Famotidine * DVT prophylaxis with SCD's ATTESTATION BY PHYSICIAN I have seen and examined the patient. I reviewed the documentation, medical decision making, and treatment plan as noted by the resident provider above. I agree with the findings and plan of care. Juanjo Cleveland MD, LAKSHMI MD Mar 01, 2025 14:43
--- NOTE | 2025-03-01 17:34 | PN ---
INFECTIOUS DISEASE PROGRESS NOTE Date of Service: Mar 01, 2025 SUBJECTIVE: This 74-year-old male patient who was seen and examined at bedside in room 223. Patient is awake, alert and oriented x 3. Participating well with physical therapy and ambulated 75 feet with physical therapy assistance. WBC is still slightly elevated at 15.5 but no fever. We will continue on Zosyn. Pending insurance approval to [facility]. PHYSICAL EXAM EYES: Anicteric. Pupils equal and reactive. HENT: No oral thrush seen, moist Oral mucosa. NECK: Supple, no JVD or thyromegaly. LUNGS: Good air entry. No cough. CHEST: Sternal incision. CARDIOVASCULAR: S1, S2 regular. No murmur heard. ABDOMEN: Soft, non tender, bowel sounds present. CENTRAL NERVOUS SYSTEM: Awake, alert, oriented. SKIN: No rashes, no swelling. Vein harvesting surgical incisions to bilateral lower extremities.. LYMPHATICS: No peripheral lymphadenopathy. MUSCULOSKELETAL: No joint swelling, erythema or tenderness. EXTREMITIES: No cyanosis or clubbing. 1+ edema to bilateral feet, improved. BACK: No deformity, no pressure ulcer. GENITOURINARY: No dysuria or hematuria. Vital Sign (Last 12 Hours) 03/01/25 03/01/25 03/01/25 03/01/25 07:55 08:00 09:28 12:08 Temp 97.5 98.1 Pulse 70 75 Resp 16 16 B/P (MAP) 92/55 98/56 84/50 Pulse Ox 97 98 98 O2 Delivery Room Air Room Air* Room Air O2 Flow Rate 0 FiO2 21 03/01/25 16:05 Temp 97.3 Pulse 64 Resp 16 B/P (MAP) 87/49 Pulse Ox 99 O2 Delivery Room Air Intake & Output (last 24hrs) 02/28/25 02/28/25 03/01/25 15:00 23:00 07:00 Intake Total 100.0 ml 250.0 ml 50.0 ml Output Total 600 ml 100 ml 450 ml Balance -500.0 ml 150.0 ml -400.0 ml LABS: Laboratory: Test 03/01/25 15:49 03/01/25 06:44 02/28/25 11:39 Range/Units Whole Blood Glucose 171 H 70-110 MG/DL White Blood Count 15.5 H 4.8-10.8 K/uL Red Blood Count 4.21 L 4.50-6.20 MIL/uL Hemoglobin 12.5 L 14.0-18.0 g/dL Hematocrit 38.4 L 42-54 % Mean Corpuscular Volume 91.2 79-99 fL Mean Corpuscular Hemoglobin 29.7 27.0-33.0 pg Mean Corpuscular Hemoglobin Concent 32.6 32.0-36.0 g/dL Red Cell Distribution Width 18.0 H 11.0-15.5 % Platelet Count 540 H 130-400 K/uL Mean Platelet Volume 10.0 7.5-10.5 fL Immature Granulocyte % (Auto) 1.9 H 0-1 % Neutrophils (%) (Auto) 64.9 40.0-77.0 % Lymphocytes (%) (Auto) 22.3 21.0-51.0 % Monocytes (%) (Auto) 9.0 3.0-13.0 % Eosinophils (%) (Auto) 1.3 0.0-8.0 % Basophils (%) (Auto) 0.6 0.0-5.0 % Neutrophils # (Auto) 10.0 H 1.8-7.7 K/uL Lymphocytes # (Auto) 3.4 1.0-4.8 K/uL Monocytes # (Auto) 1.4 H 0.1-1.0 K/uL Eosinophils # (Auto) 0.20 0.00-0.70 K/uL Basophils # (Auto) 0.10 0.00-0.20 K/uL Absolute Immature Granulocyte (auto 0.30 0-1 K/uL Nucleated Red Blood Cells 0.2 H 0.0-0.19 % Red Blood Cell Morphology See comments Sodium Level 135 L 136-145 mmol/L Potassium Level 4.2 3.5-5.1 mmol/L Chloride Level 96 L 101-111 mmol/L Carbon Dioxide Level 29 21-32 mmol/L Blood Urea Nitrogen 25 H 7-18 mg/dL Creatinine 1.5 H 0.5-1.3 mg/dL Glomerular Filtration Rate Calc 48 >90 mL/min Random Glucose 164 H 70-105 mg/dL Total Calcium 9.3 8.5-10.1 mg/dL Bedside Glucose Comment Notified Nurse ASSESSMENT: Hospital-acquired pneumonia. Leukocytosis. 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 Postop anemia. Left Pleural effusion. Diabetes mellitus. Congestive heart failure. PLAN: Continue on Zosyn. Continue GI prophylaxis. Continue diuretics Monitor electrolytes. Continue physical therapy. Pending insurance approval to [facility]. This case was reviewed and discussed with my supervising physician Dr. Harrell and the above assessment and plan was formulated and agreed upon. ATTESTATION BY PHYSICIAN I have seen and examined the patient. I reviewed the documentation, medical decision making, and treatment plan as noted by the mid-level provider above. I agree with the findings and plan of care. BERENICE HARRELL MD, [facility] Mar 01, 2025 17:34
--- NOTE | 2025-03-01 19:34 | PN ---
Endocrinology progress note DOS: 03/01/25 subjective: glucose are improving/stable and s/p CABG procedure Home diabetic regimen: metformin 500 mg bid, Hba1c 13.9% s/p thoracentesis. insulin adjusted PAST MEDICAL HISTORY: [ Diabetes, hyperlipidemia, LA/coronary artery disease ] PAST SURGICAL HISTORY: [ Cardiac stent, cholecystectomy and left inguinal hernia repair ] PAST SOCIAL HISTORY: [ Patient lives with . Patient admits he drinks two beer yesterday. Patient reports he occasional drinks alcohol denies cigarette and recreational drug use. ] FAMILY HISTORY: [ Diabetes, cardiovascular disease, asthma and cancer ] Coded Allergies: No Known Drug Allergies (Unverified Allergy, Unknown, 08/31/15) ASSESSMENT: Hyperglycemia secondary to uncontrolled diabetes POA Home diabetic regimen: metformin 500 mg bid, Hba1c 13.9% glucose is improving. NSTEMI POA s/p CABG triple vessel disease s/p CABG hospital acquired pneumonia Hyperlipidemia POA Obesity POA LA/Coronary artery disease with cardiac stent POA PLAN: OFF insulin drip continue lantus 15 units daily. off regular insulin. Continue medium dose sliding scale insulin. Monitor glucose q x 6 hourly. Keep glucose less than 180 mg/dl. Patient will need insulin at discharge Vitals/Labs Vital Signs Date Time Temp Pulse Resp B/P (MAP) Pulse Ox O2 Delivery O2 Flow Rate FiO2 03/01/25 16:05 97.3 64 16 87/49 99 Room Air 03/01/25 08:00 0 21 Laboratory Tests 03/01/25 06:44 Medications Current Medications Sodium Chloride 1,000 ml @ 0 mls/hr ONCE ONCE IV; Start 02/10/25 at 01:00; Stop 02/10/25 at 00:46; Status DC Sodium Chloride 500 ml @ 0 mls/hr ONCE ONCE IV Last administered on 02/10/25at 00:53; Start 02/10/25 at 01:00; Stop 02/10/25 at 01:01; Status DC Insulin Human Regular 5 unit ONCE ONCE IV Last administered on 02/10/25at 01:30; Start 02/10/25 at 01:30; Stop 02/10/25 at 01:31; Status DC Aspirin 325 mg ONCE ONCE PO Last administered on 02/10/25at 02:32; Start 02/10/25 at 02:30; Stop 02/10/25 at 02:31; Status DC Heparin Sodium/ Dextrose 250 ml @ 0 mls/hr PROTOCOL IV Last administered on 02/10/25at 03:00; Start 02/10/25 at 03:00; Stop 02/10/25 at 17:22; Status DC Heparin Sodium (Porcine) 7,000 unit ONCE ONCE SQ Last administered on 02/10/25at 02:55; Start 02/10/25 at 03:00; Stop 02/10/25 at 03:01; Status DC Acetaminophen 650 mg Q6H PRN PO Last administered on 02/12/25at 17:13; Start 02/10/25 at 05:00; Stop 02/14/25 at 10:17; Status DC Acetaminophen 650 mg Q4H PRN PO; Start 02/10/25 at 05:00; Stop 02/14/25 at 10:05; Status DC Ondansetron HCl 4 mg Q6H PRN IV; Start 02/10/25 at 05:00; Stop 02/14/25 at 10:17; Status DC Nitroglycerin 0.4 mg PROTOCOL PRN SL; Start 02/10/25 at 05:00; Stop 02/14/25 at 09:59; Status DC Famotidine 20 mg DAILY PO Last administered on 02/13/25at 10:53; Start 02/10/25 at 09:00; Stop 02/14/25 at 09:59; Status DC Sodium Chloride 1,000 ml @ 100 mls/hr Q10H IV Last administered on 02/10/25at 14:20; Start 02/10/25 at 05:00; Stop 02/10/25 at 17:22; Status DC Insulin Human Regular INSULIN SLIDING SCAL... Q4H SQ Last administered on 02/10/25at 09:15; Start 02/10/25 at 05:00; Stop 02/10/25 at 11:10; Status DC Dextrose 50 ml AD PRN IV; Start 02/10/25 at 05:00; Stop 02/14/25 at 10:17; Status DC Glucagon 1 mg AD PRN IM; Start 02/10/25 at 05:00; Stop 02/14/25 at 10:17; Status DC Magnesium Sulfate 50 ml @ 0 mls/hr PROTOCOL PRN IV Last administered on 02/12/25at 07:13; Start 02/10/25 at 05:00; Stop 02/14/25 at 10:17; Status DC Potassium Chloride 100 ml @ 100 mls/hr AD PRN IV Last administered on 02/15/25at 05:43; Start 02/10/25 at 05:00; Stop 02/15/25 at 06:27; Status DC Potassium Chloride 20 meq AD PRN PO Last administered on 02/25/25at 09:30; Start 02/10/25 at 05:00; Stop 03/12/25 at 04:59 Potassium Chloride 20 meq AD PRN PO Last administered on 02/18/25at 20:18; Start 02/10/25 at 05:00; Stop 03/12/25 at 04:59 Aspirin 81 mg DAILY PO Last administered on 03/01/25at 09:28; Start 02/10/25 at 09:00; Stop 03/12/25 at 08:59 Insulin Human Regular INSULIN SLIDING SCAL... Q6H6 SQ Last administered on 02/11/25at 17:29; Start 02/10/25 at 12:00; Stop 02/14/25 at 09:59; Status DC Clopidogrel Bisulfate 600 mg ONCE PO Last administered on 02/10/25at 14:19; Start 02/10/25 at 14:00; Stop 02/10/25 at 17:22; Status DC Aspirin 325 mg ONCE PO Last administered on 02/10/25at 14:32; Start 02/10/25 at 14:30; Stop 02/10/25 at 17:22; Status DC Sacubitril/ Valsartan 0.5 each BID PO Last administered on 02/13/25at 21:11; Start 02/10/25 at 21:00; Stop 02/14/25 at 09:59; Status DC Empaglifozin 10 mg DAILY PO Last administered on 02/13/25at 10:52; Start 02/10/25 at 14:30; Stop 02/14/25 at 09:59; Status DC Spironolactone 25 mg DAILY PO Last administered on 02/13/25at 10:52; Start 02/10/25 at 14:30; Stop 02/14/25 at 09:59; Status DC Furosemide 20 mg ONCE IV Last administered on 02/10/25at 17:00; Start 02/10/25 at 17:00; Stop 02/10/25 at 21:00; Status DC Furosemide 20 mg ONCE IV; Start 02/11/25 at 09:00; Stop 02/11/25 at 07:43; Status DC Lidocaine HCl 20 ml STK-MED ONCE .ROUTE; Start 02/10/25 at 15:22; Stop 02/10/25 at 15:23; Status DC Iohexol 35,000 mg STK-MED ONCE IV; Start 02/10/25 at 15:22; Stop 02/10/25 at 15:23; Status DC Iohexol 50 ml STK-MED ONCE IV; Start 02/10/25 at 15:22; Stop 02/10/25 at 15:23; Status DC Heparin Sodium (Porcine) 10,000 unit STK-MED ONCE .ROUTE; Start 02/10/25 at 15:23; Stop 02/10/25 at 15:23; Status DC Heparin Sodium/ Sodium Chloride 1,000 ml @ As Directed STK-MED ONCE IV; Start 02/10/25 at 15:23; Stop 02/10/25 at 15:23; Status DC Nitroglycerin 50 mg STK-MED ONCE .ROUTE; Start 02/10/25 at 15:23; Stop 02/10/25 at 15:23; Status DC Heparin Sodium/ Sodium Chloride 500 ml @ As Directed STK-MED ONCE IV; Start 02/10/25 at 15:35; Stop 02/10/25 at 15:35; Status DC Fentanyl Citrate 100 mcg STK-MED ONCE .ROUTE; Start 02/10/25 at 15:39; Stop 02/10/25 at 15:40; Status DC Midazolam HCl 2 mg STK-MED ONCE .ROUTE; Start 02/10/25 at 15:40; Stop 02/10/25 at 15:40; Status DC Bivalirudin 250 mg STK-MED ONCE IV; Start 02/10/25 at 16:15; Stop 02/10/25 at 16:15; Status DC Heparin Sodium (Porcine) 7,000 unit ONCE ONCE IV Last administered on 02/11/25at 05:46; Start 02/11/25 at 05:30; Stop 02/11/25 at 05:31; Status DC Heparin Sodium/ Dextrose 250 ml @ 0 mls/hr Q6H IV Last administered on 02/13/25at 13:01; Start 02/11/25 at 06:30; Stop 02/14/25 at 09:59; Status DC Clopidogrel Bisulfate 75 mg DAILY PO; Start 02/11/25 at 09:00; Stop 02/11/25 at 07:28; Status DC Insulin Glargine 15 units DAILY08 SQ Last administered on 02/12/25at 08:54; Start 02/11/25 at 08:00; Stop 02/13/25 at 05:24; Status DC Furosemide 20 mg DAILY PO Last administered on 02/13/25at 10:52; Start 02/11/25 at 09:00; Stop 02/14/25 at 09:59; Status DC Insulin Human Regular 3 unit TIDAC SQ Last administered on 02/12/25at 16:31; Start 02/12/25 at 07:30; Stop 02/14/25 at 09:59; Status DC Metoprolol Tartrate 12.5 mg BID PO Last administered on 02/14/25at 06:44; Start 02/12/25 at 09:00; Stop 02/14/25 at 09:59; Status DC Potassium Chloride 40 meq BID ONCE PO; Start 02/12/25 at 21:00; Stop 02/12/25 at 21:01; Status DC Magnesium Chloride 64 mg Q8H6 ONCE PO; Start 02/12/25 at 14:00; Stop 02/12/25 at 14:01; Status DC Heparin Sodium (Porcine) *calculation based on ACTUAL B... AD PRN IV Last administered on 02/12/25at 20:16; Start 02/12/25 at 21:00; Stop 02/14/25 at 09:59; Status DC Insulin Glargine 12 units DAILY08 SQ Last administered on 02/13/25at 10:51; Start 02/13/25 at 08:00; Stop 02/14/25 at 09:59; Status DC Cefazolin Sodium 2 gm ONCALL IVP Last administered on 02/14/25at 08:50; Start 02/13/25 at 20:00; Stop 02/14/25 at 18:51; Status DC Epinephrine HCl 10 mg/Sodium Chloride 250 ml @ 0 mls/hr AD PRN IV Last administered on 02/20/25at 17:32; Start 02/14/25 at 06:30; Stop 03/16/25 at 06:29 Norepinephrine Bitartrate 250 ml @ 0 mls/hr AD PRN IV Last administered on 02/17/25at 01:06; Start 02/14/25 at 06:30; Stop 03/16/25 at 06:29 Aminocaproic Acid 70376 mg/Sodium Chloride 480 ml @ 0 mls/hr AD PRN IV; Start 02/14/25 at 06:30; Stop 02/23/25 at 11:52; Status DC Epinephrine HCl 10 mg/Sodium Chloride 250 ml @ 0 mls/hr AD PRN IV; Start 02/14/25 at 07:00; Stop 02/14/25 at 06:51; Status DC Norepinephrine Bitartrate 250 ml @ 0 mls/hr AD PRN IV; Start 02/14/25 at 07:00; Stop 02/14/25 at 06:51; Status DC Aminocaproic Acid 21013 mg/Sodium Chloride 480 ml @ 0 mls/hr AD PRN IV; Start 02/14/25 at 07:00; Stop 02/14/25 at 06:51; Status DC Cefazolin Sodium 2 gm STK-MED ONCE .ROUTE; Start 02/14/25 at 06:53; Stop 02/14/25 at 06:53; Status DC Nitroglycerin/ Dextrose 1 ml @ As Directed STK-MED ONCE .ROUTE; Start 02/14/25 at 07:00; Stop 02/14/25 at 07:00; Status DC Cefazolin Sodium 1 gm STK-MED ONCE .ROUTE Last administered on 02/14/25at 10:09; Start 02/14/25 at 07:37; Stop 02/14/25 at 07:38; Status DC Heparin Sodium/ Sodium Chloride 500 ml @ As Directed STK-MED ONCE IV; Start 02/14/25 at 07:38; Stop 02/14/25 at 07:38; Status DC Papaverine HCl 60 mg STK-MED ONCE .ROUTE Last administered on 02/14/25at 10:10; Start 02/14/25 at 07:38; Stop 02/14/25 at 07:38; Status DC Midazolam HCl 2 mg STK-MED ONCE .ROUTE; Start 02/14/25 at 08:14; Stop 02/14/25 at 08:14; Status DC Ketamine HCl 500 mg STK-MED ONCE IJ; Start 02/14/25 at 08:16; Stop 02/14/25 at 08:16; Status DC Protamine Sulfate 250 mg STK-MED ONCE IV; Start 02/14/25 at 08:17; Stop 02/14/25 at 08:17; Status DC Lidocaine HCl 100 mg STK-MED ONCE .ROUTE; Start 02/14/25 at 08:17; Stop 02/14/25 at 08:17; Status DC Heparin Sodium (Porcine) 10,000 unit STK-MED ONCE .ROUTE; Start 02/14/25 at 08:17; Stop 02/14/25 at 08:17; Status DC Epinephrine HCl 1 mg STK-MED ONCE .ROUTE; Start 02/14/25 at 08:17; Stop 02/14/25 at 08:17; Status DC Sodium Bicarbonate 200 ml @ As Directed STK-MED ONCE .ROUTE; Start 02/14/25 at 08:17; Stop 02/14/25 at 08:17; Status DC Norepinephrine Bitartrate 4 mg STK-MED ONCE IV; Start 02/14/25 at 08:17; Stop 02/14/25 at 08:17; Status DC Propofol 200 mg STK-MED ONCE IV; Start 02/14/25 at 08:19; Stop 02/14/25 at 08:19; Status DC Fentanyl Citrate 1,000 mcg STK-MED ONCE IJ; Start 02/14/25 at 08:19; Stop 02/14/25 at 08:19; Status DC Midazolam HCl 2 mg STK-MED ONCE .ROUTE; Start 02/14/25 at 08:20; Stop 02/14/25 at 08:20; Status DC Rocuronium [place] 50 mg STK-MED ONCE .ROUTE; Start 02/14/25 at 08:20; Stop 02/14/25 at 08:20; Status DC Acetaminophen 1,000 mg Q6H6 IV Last administered on 02/15/25at 12:14; Start 02/14/25 at 14:00; Stop 02/15/25 at 13:59; Status DC Aspirin 81 mg ONCE ONCE NG Last administered on 02/14/25at 13:56; Start 02/14/25 at 14:00; Stop 02/14/25 at 14:01; Status DC Docusate Sodium 100 mg BID PO Last administered on 03/01/25at 09:28; Start 02/14/25 at 21:00; Stop 03/16/25 at 20:59 Lactulose 20 gm BID PRN PO Last administered on 02/28/25at 15:56; Start 02/14/25 at 10:00; Stop 03/16/25 at 09:59 Furosemide 20 mg Q12H PO Last administered on 02/16/25at 08:19; Start 02/16/25 at 09:00; Stop 02/16/25 at 10:21; Status DC Furosemide 20 mg Q12H IV Last administered on 02/15/25at 20:16; Start 02/15/25 at 09:00; Stop 02/16/25 at 08:59; Status DC Atorvastatin Calcium 40 mg HS PO Last administered on 02/28/25at 20:52; Start 02/14/25 at 21:00; Stop 03/16/25 at 20:59 Enoxaparin Sodium 30 mg DAILY SQ Last administered on 03/01/25at 09:26; Start 02/17/25 at 09:00; Stop 03/19/25 at 08:59 Metoprolol Tartrate 12.5 mg BID PO; Start 02/16/25 at 09:00; Stop 02/20/25 at 09:01; Status DC Magnesium Hydroxide 30 ml DAILY PRN PO; Start 02/14/25 at 10:00; Stop 03/16/25 at 09:59 Dexmedetomidine/ Sodium Chloride 400 mcg PROTOCOL IV; Start 02/14/25 at 10:00; Stop 02/15/25 at 09:59; Status DC Acetaminophen 650 mg Q6H PRN PO; Start 02/14/25 at 10:00; Stop 03/16/25 at 09:59 Heparin Sodium (Porcine) 10,000 unit STK-MED ONCE .ROUTE; Start 02/14/25 at 10:00; Stop 02/14/25 at 10:00; Status DC Sodium Chloride 1,000 ml @ 10 mls/hr ONCE IV; Start 02/14/25 at 10:00; Stop 02/15/25 at 09:59; Status DC Sodium Chloride 10 ml Q8H PRN IVP; Start 02/14/25 at 10:00; Stop 03/16/25 at 09:59 Morphine Sulfate 0.5 mg Q2H PRN IV; Start 02/14/25 at 10:00; Stop 02/15/25 at 09:59; Status DC Morphine Sulfate 1 mg Q2H PRN IV Last administered on 02/14/25at 14:23; Start 02/14/25 at 10:30; Stop 02/19/25 at 13:29; Status DC Acetaminophen 650 mg Q4H PRN RC; Start 02/14/25 at 10:00; Stop 02/23/25 at 11:52; Status DC Ondansetron HCl 4 mg Q6H PRN IV; Start 02/14/25 at 10:00; Stop 03/16/25 at 09:59 Sodium Chloride 500 ml @ 0 mls/hr AD IV; Start 02/14/25 at 10:00; Stop 03/16/25 at 09:59 Nitroglycerin/ Dextrose 0 ml @ 0 mls/hr AD IV; Start 02/14/25 at 10:00; Stop 02/17/25 at 09:59; Status DC Propofol 100 ml @ 0 mls/hr AD PRN IV; Start 02/14/25 at 10:00; Stop 02/18/25 at 09:59; Status DC Norepinephrine Bitartrate 8 mg/ Dextrose 250 ml @ 0 mls/hr AD PRN IV; Start 02/14/25 at 10:00; Stop 02/14/25 at 10:14; Status DC Epinephrine HCl 10 mg/Sodium Chloride 250 ml @ 0 mls/hr AD PRN IV; Start 02/14/25 at 10:00; Stop 02/14/25 at 10:14; Status DC Aminocaproic Acid 07412 mg/Sodium Chloride 310 ml @ 25 mls/hr AD IV; Start 02/14/25 at 10:00; Stop 02/14/25 at 10:19; Status DC Calcium Gluconate 1 gm/Sodium Chloride 60 ml @ 200 mls/hr AD PRN IV Last administered on 02/21/25at 08:36; Start 02/14/25 at 10:00; Stop 03/16/25 at 09:59 Magnesium Sulfate 50 ml @ 12.5 mls/hr AD PRN IV Last administered on 02/24/25at 08:17; Start 02/14/25 at 10:00; Stop 03/16/25 at 09:59 Potassium Chloride 100 ml @ 100 mls/hr AD PRN IV Last administered on 02/21/25at 16:43; Start 02/14/25 at 10:00; Stop 03/16/25 at 09:59 Potassium Phosphate 250 ml @ 42 mls/hr AD PRN IV; Start 02/14/25 at 10:00; Stop 03/16/25 at 09:59 Albumin Human 250 ml @ 0 mls/hr AD PRN IV Last administered on 02/14/25at 14:42; Start 02/14/25 at 10:00; Stop 02/14/25 at 14:42; Status DC Acetaminophen 650 mg Q4H PRN PO; Start 02/14/25 at 10:00; Stop 03/16/25 at 09:59 Insulin Human Regular 100 unit/ Sodium Chloride 100 ml @ 0 mls/hr AD IV Last administered on 02/15/25at 06:30; Start 02/14/25 at 10:00; Stop 02/16/25 at 09:59; Status DC Cefazolin Sodium 2 gm Q8H IVPB Last administered on 02/15/25at 06:25; Start 02/14/25 at 15:00; Stop 02/15/25 at 07:01; Status DC Tramadol HCl 25 mg Q6H PRN PO; Start 02/14/25 at 10:00; Stop 02/19/25 at 09:59; Status DC Tramadol HCl 50 mg Q6H PRN PO; Start 02/14/25 at 10:00; Stop 02/19/25 at 09:59; Status DC Famotidine 20 mg BID IV Last administered on 02/15/25at 20:15; Start 02/14/25 at 21:00; Stop 02/16/25 at 07:58; Status DC Sodium Bicarbonate 50 meq AD PRN IV Last administered on 02/16/25at 15:25; Start 02/14/25 at 10:00; Stop 02/17/25 at 09:59; Status DC Dextrose 50 ml AD PRN IV; Start 02/14/25 at 10:00; Stop 03/16/25 at 09:59 Glucagon 1 mg AD PRN IM; Start 02/14/25 at 10:00; Stop 03/16/25 at 09:59 Dobutamine HCl 250 mg STK-MED ONCE .ROUTE; Start 02/14/25 at 10:28; Stop 02/14/25 at 10:28; Status DC Sodium Bicarbonate 50 ml @ As Directed STK-MED ONCE .ROUTE; Start 02/14/25 at 10:52; Stop 02/14/25 at 10:52; Status DC Sodium Bicarbonate 200 ml @ As Directed STK-MED ONCE .ROUTE; Start 02/14/25 at 10:53; Stop 02/14/25 at 10:53; Status DC Vasopressin 20 units STK-MED ONCE .ROUTE; Start 02/14/25 at 11:51; Stop 02/14/25 at 11:51; Status DC Rocuronium [place] 50 mg STK-MED ONCE .ROUTE; Start 02/14/25 at 12:14; Stop 02/14/25 at 12:14; Status DC Sodium Bicarbonate 100 ml @ As Directed STK-MED ONCE .ROUTE; Start 02/14/25 at 12:16; Stop 02/14/25 at 12:16; Status DC Vasopressin 40 units/Sodium Chloride 40 ml @ 0 mls/hr PROTOCOL IV Last administered on 02/14/25at 22:11; Start 02/14/25 at 13:00; Stop 03/16/25 at 12:59 Albumin Human 250 ml @ 0 mls/hr AD IV Last administered on 02/18/25at 10:27; Start 02/14/25 at 15:30; Stop 02/18/25 at 10:40; Status DC Calcium Gluconate 2 gm/Sodium Chloride 100 ml @ 0 mls/hr ONCE ONCE IV Last administered on 02/14/25at 16:15; Start 02/14/25 at 16:30; Stop 02/14/25 at 16:31; Status DC Pharmacy Profile Note 1 each ONCE MISC; Start 02/14/25 at 18:00; Stop 02/14/25 at 18:27; Status DC Sodium Bicarbonate 25 meq/Dextrose 1,025 ml @ 0 mls/hr Q0M IV Last administered on 02/18/25at 13:03; Start 02/14/25 at 18:00; Stop 03/16/25 at 17:59 Famotidine 20 mg BID PO Last administered on 02/16/25at 20:03; Start 02/16/25 at 09:00; Stop 02/17/25 at 07:09; Status DC Insulin Human Regular INSULIN SLIDING SCAL... ACHS SQ Last administered on 02/27/25at 21:34; Start 02/16/25 at 11:30; Stop 02/28/25 at 05:39; Status DC Cefepime HCl 1 gm Q12H IVPB Last administered on 02/19/25at 22:54; Start 02/16/25 at 10:30; Stop 02/20/25 at 08:16; Status DC Furosemide 100 mg/ Sodium Chloride 100 ml @ 0 mls/hr PROTOCOL IV Last administered on 02/19/25at 11:35; Start 02/16/25 at 10:30; Stop 02/20/25 at 09:01; Status DC Vancomycin HCl 500 ml @ 250 mls/hr ONCE ONCE IV Last administered on 02/16/25at 11:39; Start 02/16/25 at 12:00; Stop 02/16/25 at 13:59; Status DC Sodium Chloride 4 ml STK-MED ONCE IH Last administered on 02/16/25at 10:53; Start 02/16/25 at 10:44; Stop 02/16/25 at 10:44; Status DC Sodium Chloride 4 ml STK-MED ONCE IH Last administered on 02/16/25at 14:33; Start 02/16/25 at 14:26; Stop 02/16/25 at 14:26; Status DC Sodium Chloride 4 ml STK-MED ONCE IH Last administered on 02/16/25at 19:16; Start 02/16/25 at 18:32; Stop 02/16/25 at 18:32; Status DC Famotidine 20 mg DAILY PO Last administered on 03/01/25at 09:28; Start 02/17/25 at 09:00; Stop 03/18/25 at 08:59 Latanoprost 1 DROP FOR EACH EYE HS OP Last administered on 02/28/25at 21:19; Start 02/17/25 at 21:00; Stop 03/19/25 at 20:59 Home Med (Brimonidine-Timolol 0.2%/0.5% EYE DROPS) DAILY OP Last administered on 03/01/25at 09:29; Start 02/18/25 at 09:00; Stop 03/20/25 at 08:59 Albumin Human 250 ml @ 0 mls/hr AD IV; Start 02/18/25 at 10:30; Stop 02/20/25 at 09:03; Status DC Vancomycin HCl 1 each AD IV; Start 02/18/25 at 11:00; Stop 02/24/25 at 12:15; Status DC Vancomycin HCl 250 ml @ 125 mls/hr Q12H IV Last administered on 02/19/25at 11:20; Start 02/18/25 at 11:30; Stop 02/21/25 at 05:33; Status DC Potassium Chloride 20 meq BID PO Last administered on 03/01/25at 09:27; Start 02/19/25 at 10:30; Stop 03/21/25 at 10:29 Dexmedetomidine/ Sodium Chloride 400 mcg STK-MED ONCE IV Last administered on 02/20/25at 07:08; Start 02/20/25 at 07:00; Stop 02/20/25 at 07:00; Status DC Dexmedetomidine/ Sodium Chloride 400 mcg PROTOCOL IV Last administered on 02/22/25at 05:51; Start 02/20/25 at 07:30; Stop 02/22/25 at 15:01; Status DC Carvedilol 3.125 mg BID PO; Start 02/20/25 at 21:00; Stop 02/24/25 at 06:13; Status DC Spironolactone 25 mg DAILY PO Last administered on 03/01/25at 09:28; Start 02/20/25 at 09:00; Stop 03/22/25 at 08:59 Empaglifozin 10 mg DAILY PO Last administered on 02/22/25at 09:38; Start 02/20/25 at 09:00; Stop 02/22/25 at 15:01; Status DC Albumin Human 50 ml @ 0 mls/hr Q12H9 IV Last administered on 02/24/25at 08:15; Start 02/20/25 at 09:00; Stop 02/24/25 at 08:42; Status DC Furosemide 20 mg Q12H IV Last administered on 02/25/25at 21:27; Start 02/20/25 at 09:00; Stop 02/26/25 at 09:43; Status DC Pharmacy Profile Note 1 each ONCE MISC; Start 02/20/25 at 11:30; Stop 02/20/25 at 11:19; Status DC Piperacillin Sod/ Tazobactam Sod 50 ml @ 12.5 mls/hr Q8H IVPB Last administered on 02/24/25at 11:45; Start 02/20/25 at 11:30; Stop 02/24/25 at 18:10; Status DC Vancomycin HCl 250 ml @ 125 mls/hr Q24H IV Last administered on 02/23/25at 06:28; Start 02/21/25 at 06:00; Stop 02/24/25 at 05:57; Status DC Insulin Glargine 10 units DAILY SQ Last administered on 02/22/25at 11:54; Start 02/21/25 at 09:00; Stop 02/22/25 at 19:17; Status DC Calcium Gluconate 1 gm STK-MED ONCE .ROUTE; Start 02/21/25 at 08:34; Stop 02/21/25 at 08:34; Status DC Etomidate 20 mg STK-MED ONCE .ROUTE; Start 02/21/25 at 12:27; Stop 02/21/25 at 12:28; Status DC Fentanyl Citrate 100 mcg STK-MED ONCE .ROUTE; Start 02/21/25 at 12:30; Stop 02/21/25 at 12:30; Status DC Rocuronium [place] 50 mg STK-MED ONCE .ROUTE; Start 02/21/25 at 12:30; Stop 02/21/25 at 12:30; Status DC Lidocaine HCl 20 ml STK-MED ONCE .ROUTE; Start 02/21/25 at 12:31; Stop 02/21/25 at 12:31; Status DC Cefazolin Sodium 1 gm STK-MED ONCE .ROUTE; Start 02/21/25 at 12:31; Stop 02/21/25 at 12:32; Status DC Bupivacaine HCl 2.5 mg STK-MED ONCE IJ; Start 02/21/25 at 12:32; Stop 02/21/25 at 12:32; Status DC Propofol 200 mg STK-MED ONCE IV; Start 02/21/25 at 12:35; Stop 02/21/25 at 12:35; Status DC Lidocaine HCl 100 mg STK-MED ONCE .ROUTE; Start 02/21/25 at 12:46; Stop 02/21/25 at 12:46; Status DC Cefazolin Sodium 1 gm STK-MED ONCE .ROUTE; Start 02/21/25 at 12:51; Stop 02/21/25 at 12:51; Status DC Rocuronium [place] 50 mg STK-MED ONCE .ROUTE; Start 02/21/25 at 13:03; Stop 02/21/25 at 13:03; Status DC Cefazolin Sodium 2 gm STK-MED ONCE IVPB Last administered on 02/21/25at 12:53; Start 02/21/25 at 12:53; Stop 02/21/25 at 14:14; Status DC Lidocaine HCl 20 ml STK-MED ONCE INJ Last administered on 02/21/25at 12:18; Start 02/21/25 at 12:18; Stop 02/21/25 at 14:14; Status DC Bupivacaine HCl 75 mg STK-MED ONCE IJ Last administered on 02/21/25at 12:18; Start 02/21/25 at 12:18; Stop 02/21/25 at 14:14; Status DC Insulin Glargine 12 units DAILY SQ Last administered on 02/27/25at 17:30; Start 02/23/25 at 09:00; Stop 02/28/25 at 05:39; Status DC Dexmedetomidine/ Sodium Chloride 400 mcg PROTOCOL IV Last administered on 02/23/25at 00:17; Start 02/23/25 at 00:00; Stop 03/25/25 at 00:00 Midodrine 10 mg TID PO Last administered on 03/01/25at 13:44; Start 02/23/25 at 14:00; Stop 03/25/25 at 13:59 Prednisone 20 mg DAILY PO Last administered on 02/26/25at 09:50; Start 02/23/25 at 12:30; Stop 02/26/25 at 13:00; Status DC Vancomycin HCl 250 ml @ 125 mls/hr Q24H IV Last administered on 02/24/25at 06:26; Start 02/24/25 at 06:30; Stop 02/24/25 at 12:15; Status DC Carvedilol 3.125 mg BID PO Last administered on 03/01/25at 09:28; Start 02/24/25 at 09:00; Stop 03/26/25 at 08:59 Empaglifozin 10 mg DAILY PO Last administered on 02/24/25at 08:47; Start 02/24/25 at 09:00; Stop 02/24/25 at 13:01; Status DC Piperacillin Sod/ Tazobactam Sod 50 ml @ 12.5 mls/hr Q8H6 IVPB Last administered on 03/01/25at 13:44; Start 02/24/25 at 22:00; Stop 03/06/25 at 21:59 Furosemide 40 mg Q12H IV Last administered on 03/01/25at 09:28; Start 02/26/25 at 10:00; Stop 03/01/25 at 11:00; Status DC Insulin Glargine 15 units DAILY SQ Last administered on 03/01/25at 09:23; Start 02/28/25 at 09:00; Stop 03/30/25 at 08:59 Insulin Human Regular INSULIN SLIDING SCAL... ACHS SQ Last administered on 03/01/25at 13:42; Start 02/28/25 at 07:30; Stop 03/30/25 at 07:29 Furosemide 20 mg Q12H IV; Start 03/01/25 at 22:00; Stop 03/31/25 at 21:59 EUGENE ZARATE MD Mar 01, 2025 19:34
[2025-03-02] VITALS (8 sets, daily range): BP systolic 85–114; BP diastolic 46–64; PULSE 60–69; RESP 16–20; TEMP 97.4–98.4; O2SAT 95–97
[2025-03-02 03:46] LABS: IMMATURE GRANULOCYTE ABSOLUTE 0.16 K/uL (0-1); NUCLEATED RED BLOOD CELLS 0.0 % (0.0-0.19); PLATELET COUNT (AUTO) 446 K/uL (130-400); RED BLOOD CELL COUNT(AUTO) 3.57 MIL/uL (4.50-6.20); RED CELL DISTRIBUTION WIDTH 17.5 % (11.0-15.5); WHITE BLOOD COUNT (AUTO) 11.3 K/uL (4.8-10.8)
[2025-03-02 04:02] LABS: CREATININE 1.2 mg/dL (0.5-1.3); GLOMERULAR FILTR. RATE CALC 63.0 mL/min (>90); GLUCOSE,RANDOM 132.0 mg/dL (70-105); SODIUM SERUM 137.0 mmol/L (136-145); UREA NITROGEN, BLOOD 27.0 mg/dL (7-18)
--- NOTE | 2025-03-02 07:35 | PN ---
SUBJECTIVE: A 74-year-old male status post Impella 5.5, supported CABG due to low ejection fraction. Has done well. His course is postoperative day #15. OBJECTIVE: GENERAL: He is awake, alert, in no acute distress. VITAL SIGNS: Stable as recorded in the medical record. CHEST: Sternum stable. Incision is healed. LUNGS: Clear. EXTREMITIES: Warm and well perfused. No evidence of DVT, hematoma or infection. ASSESSMENT AND PLAN: Status post coronary revascularization. PLAN: * Congestive heart failure. The patient sustained a large anterolateral infarction, random, with congestive heart failure, status post surgical revascularization. We will reevaluate ejection fraction prior to discharge and recommend a LifeVest if the ejection fraction is less than 25%. * Fluid overload. Lasix 20 mg twice daily. * Dyslipidemia. Lipitor 40 mg once a day. * Deep vein thrombosis prophylaxis. Lovenox 20 mg once a day. * OT, PT, cardiac rehab, discharge. TID: [id number] RECEIPT: [id number]
--- NOTE | 2025-03-02 12:13 | PN ---
[facility] PROGRESS NOTE Date Patient Seen: Mar 02, 2025 Time of Visit: 12:12 Supervising Physician: Dr Alyssa Carrillo Primary Care Physician: KELLEY ENCINAS MD Outpatient Specialists: Inpatient Consults: BIS PROBLEM LIST: CAD, status post CABG x3 Left-sided hemothorax s/p thoracentesis on 02/26/2025 with 1100 cc blood drained Impella and a intra-aortic balloon pump support Type 2 diabetes with hyperglycemia Congested heart failure EF 20% Obstructive coronary artery disease Atherosclerosis Primary hypertension Morbid obesity; BMI 36 Cardiogenic shock; resolved INTERVAL HISTORY: Patient seen and evaluated, comfortably at bedside chair All labs and imaging have been reviewed. No acute events overnight. Patient on room air. Good saturations Tolerating PT Plan: Anticipate discharge to [facility] Continue diuresis Supplemental O2 if needed Cardiac rehab Lovenox subQ REVIEW OF SYSTEMS: 12 point ROS reviewed with patient. Pertinent positives mentioned above. Otherwise negative. PHYSICAL EXAM: GENERAL: Patient comfortable in bed, HEENT: EOMI, Sclera non icteric, moist mucosa NECK: Supple, no JVD, trachea midline LUNGS: Clear breath sounds bilaterally. No wheezes HEART: Regular rate and rhythm. Normal S1 and S2, without murmurs sternum wound looks clean, no bleeding or discharge. ABD: Abdomen soft, nontender. Bowel sounds present EXT: Edema and hyperemia to the right ankle have improved compared to yesterday NEURO: Awake alert and oriented Vital Signs (last 8hr) Date Time Temp Pulse Resp B/P (MAP) Pulse Ox O2 Delivery O2 Flow Rate FiO2 03/02/25 07:50 98.1 60 16 101/46 99 Room Air LABS: Hematology Labs: Test 03/02/25 03:13 03/01/25 06:44 Range/Units White Blood Count 11.3 #H 4.8-10.8 K/uL Red Blood Count 3.57 L 4.50-6.20 MIL/uL Hemoglobin 10.6 L 14.0-18.0 g/dL Hematocrit 32.3 L 42-54 % Mean Corpuscular Volume 90.5 79-99 fL Mean Corpuscular Hemoglobin 29.7 27.0-33.0 pg Mean Corpuscular Hemoglobin Concent 32.8 32.0-36.0 g/dL Red Cell Distribution Width 17.5 H 11.0-15.5 % Platelet Count 446 H 130-400 K/uL Mean Platelet Volume 10.2 7.5-10.5 fL Immature Granulocyte % (Auto) 1.4 H 0-1 % Neutrophils (%) (Auto) 60.2 40.0-77.0 % Lymphocytes (%) (Auto) 24.9 21.0-51.0 % Monocytes (%) (Auto) 10.8 3.0-13.0 % Eosinophils (%) (Auto) 2.2 0.0-8.0 % Basophils (%) (Auto) 0.5 0.0-5.0 % Neutrophils # (Auto) 6.8 1.8-7.7 K/uL Lymphocytes # (Auto) 2.8 1.0-4.8 K/uL Monocytes # (Auto) 1.2 H 0.1-1.0 K/uL Eosinophils # (Auto) 0.25 0.00-0.70 K/uL Basophils # (Auto) 0.06 0.00-0.20 K/uL Absolute Immature Granulocyte (auto 0.16 0-1 K/uL Nucleated Red Blood Cells 0.0 0.0-0.19 % Red Blood Cell Morphology See comments Chemistry Labs: Test 03/02/25 12:01 03/02/25 03:13 Range/Units Whole Blood Glucose 189 #H 70-110 MG/DL Sodium Level 137 136-145 mmol/L Potassium Level 4.1 3.5-5.1 mmol/L Chloride Level 99 L 101-111 mmol/L Carbon Dioxide Level 26 21-32 mmol/L Blood Urea Nitrogen 27 H 7-18 mg/dL Creatinine 1.2 0.5-1.3 mg/dL Glomerular Filtration Rate Calc 63 >90 mL/min Random Glucose 132 H 70-105 mg/dL Total Calcium 8.8 8.5-10.1 mg/dL B-Type Natriuretic Peptide 363 H 0-100 pg/mL DIAGNOSTICS / RADIOLOGY RESULTS: [ ] NEURO: Minimize central acting medications as possible. Maintain fall precautions, adequate lighting during the day PULMONARY: Supplemental 02 as needed. Maintain aspiration precautions at all times CARDIOVASCULAR: Follow hemodynamics. Vital signs per facility protocol GI & NUTRITION: Continue with nutritional support. Continue stool softeners and laxatives as needed. KIDNEYS & ELECTROLYTES: Strict monitoring of intake, output and overall fluid balance. Avoid nephrotoxic medications to the extent possible. Medications to be dosed according to renal function. Monitor electrolytes and replace as needed ENDOCRINE: Maintain blood glucose between 100-180 at all times. Hypoglycemia protocol in place INFECTIOUS DISEASE: Trend temperature, WBC and procalcitonin level Follow cultures, deescalate antibiotics as soon as possible. Panculture if new onset fever ONCOLOGY/HEMATOLOGY/COAGULATION: Monitor for s/s of bleeding Monitor hemoglobin, coagulation studies as needed SKIN: Pressure ulcer prevention per facility protocol Specialty mattress ORTHO/REHAB: Continue PT/OT Prophylaxis: Continue GI and DVT prophylaxis Code Status: Full Resuscitation Disposition: as per cardiovascular MAGGIE JARRELL PAC Mar 02, 2025 12:13
--- NOTE | 2025-03-02 12:14 | PN ---
INFECTIOUS DISEASE PROGRESS NOTE Date of Service: Mar 02, 2025 SUBJECTIVE: Patient is awake, alert and answering questions appropriately. Remains afebrile, temperature is 98.1 and the WBC continues trending down and is 11.3 today. Continues on Zosyn. Patient was sitting up on the bedside chair during rounding today. Pending insurance approval to [facility]. No other issues reported by nursing. PHYSICAL EXAM EYES: Anicteric. Pupils equal and reactive. HENT: No oral thrush seen, moist Oral mucosa. NECK: Supple, no JVD or thyromegaly. LUNGS: Good air entry. No cough. CHEST: Sternal incision. CARDIOVASCULAR: S1, S2 regular. No murmur heard. ABDOMEN: Soft, non tender, bowel sounds present. CENTRAL NERVOUS SYSTEM: Awake, alert, oriented. SKIN: No rashes, no swelling. Vein harvesting surgical incisions to bilateral lower extremities.. LYMPHATICS: No peripheral lymphadenopathy. MUSCULOSKELETAL: No joint swelling, erythema or tenderness. EXTREMITIES: No cyanosis or clubbing. 1+ edema to bilateral feet, improved. BACK: No deformity, no pressure ulcer. GENITOURINARY: No dysuria or hematuria. Vital Sign (Last 12 Hours) 03/02/25 03/02/25 04:00 07:50 Temp 98.1 98.1 Pulse 67 60 Resp 18 16 B/P (MAP) 114/64 101/46 Pulse Ox 95 99 O2 Delivery Room Air Room Air Intake & Output (last 24hrs) 03/01/25 03/01/25 03/02/25 15:00 23:00 07:00 Output Total 400 ml 150 ml Balance -400 ml -150 ml LABS: Laboratory: Test 03/02/25 12:01 03/02/25 03:13 03/01/25 06:44 Range/Units Whole Blood Glucose 189 #H 70-110 MG/DL White Blood Count 11.3 #H 4.8-10.8 K/uL Red Blood Count 3.57 L 4.50-6.20 MIL/uL Hemoglobin 10.6 L 14.0-18.0 g/dL Hematocrit 32.3 L 42-54 % Mean Corpuscular Volume 90.5 79-99 fL Mean Corpuscular Hemoglobin 29.7 27.0-33.0 pg Mean Corpuscular Hemoglobin Concent 32.8 32.0-36.0 g/dL Red Cell Distribution Width 17.5 H 11.0-15.5 % Platelet Count 446 H 130-400 K/uL Mean Platelet Volume 10.2 7.5-10.5 fL Immature Granulocyte % (Auto) 1.4 H 0-1 % Neutrophils (%) (Auto) 60.2 40.0-77.0 % Lymphocytes (%) (Auto) 24.9 21.0-51.0 % Monocytes (%) (Auto) 10.8 3.0-13.0 % Eosinophils (%) (Auto) 2.2 0.0-8.0 % Basophils (%) (Auto) 0.5 0.0-5.0 % Neutrophils # (Auto) 6.8 1.8-7.7 K/uL Lymphocytes # (Auto) 2.8 1.0-4.8 K/uL Monocytes # (Auto) 1.2 H 0.1-1.0 K/uL Eosinophils # (Auto) 0.25 0.00-0.70 K/uL Basophils # (Auto) 0.06 0.00-0.20 K/uL Absolute Immature Granulocyte (auto 0.16 0-1 K/uL Nucleated Red Blood Cells 0.0 0.0-0.19 % Sodium Level 137 136-145 mmol/L Potassium Level 4.1 3.5-5.1 mmol/L Chloride Level 99 L 101-111 mmol/L Carbon Dioxide Level 26 21-32 mmol/L Blood Urea Nitrogen 27 H 7-18 mg/dL Creatinine 1.2 0.5-1.3 mg/dL Glomerular Filtration Rate Calc 63 >90 mL/min Random Glucose 132 H 70-105 mg/dL Total Calcium 8.8 8.5-10.1 mg/dL B-Type Natriuretic Peptide 363 H 0-100 pg/mL Red Blood Cell Morphology See comments ASSESSMENT: Hospital-acquired pneumonia. Leukocytosis. 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 Postop anemia. Left Pleural effusion. Diabetes mellitus. Congestive heart failure. PLAN: Continue on Zosyn. Continue GI prophylaxis. Continue diuretics Monitor electrolytes. Continue physical therapy. Pending insurance approval to [facility]. This case was reviewed and discussed with my supervising physician Dr. Harrell and the above assessment and plan was formulated and agreed upon. ATTESTATION BY PHYSICIAN I have seen and examined the patient. I reviewed the documentation, medical decision making, and treatment plan as noted by the mid-level provider above. I agree with the findings and plan of care. BERENICE HARRELL MD, MIRTA L [facility] Mar 02, 2025 12:14
--- NOTE | 2025-03-02 15:54 | PN ---
[facility] PROGRESS NOTE Date of Service: Mar 02, 2025 Time of Service: 15:53 HISTORY OF PRESENT ILLNESS: This is a 74-year-old male,a [employer] by [employer]ism whith past medical history of diabetes, hyperlipidemia and MT/coronary artery disease with cardiac stent who presented to the Ed for complaints of midsternal chest pain that is non radiating associated with diaphoresis and this happened when patient was laying down in bed aroun 11:50 pm last night and decided to come to the ED for evaluation.Patient reports pain was persistent.As per patient he had a history of heart attack before and underwent a stent placement.Patient reports the only medication he is taking is Metformin.Patient states he is supposed to be on Aspirin but has stopped taking it.Patient reports he occasionally drinks beer and last drink was yesterday ,had 2 beers he said. Seen and examined patient in the ER awake,alert and coherent,appears comfortable.Patient denies fever,chills,cough,nausea,vomiting,palpitation and shortness of breath. Latest vital signs temperature 98.2, heart rate 75, blood pressure 124/70 saturation 97% on room air. Labs: CBC unremarkable. Chloride 99, BUN 21, random glucose 469 to 439 to 327. Troponin from -. ECG result revealed revealed sinus rhythm heart rate 85 with atrial premature complex anterolateral infarct age indeterminate. Second EKG result revealed sinus rhythm heart rate 73 with left anterior fascicular block. Probable anterolateral infarct age indeterminate. Abnormal T consider ischemia lateral leads.. Chest x-ray result revealed no acute cardiopulmonary process is evident. While in the ER patient received 1500 mL NS bolus, insulin 5 units IV, aspirin 325 mg p.o. and patient was started on heparin drip per [facility] protocol. SUBJECTIVE: 02/10/25: Patient was seen and evaluated in ED9. Patient was alert, awake and orientedX3. Patient reports that he doesn't have any chest pain today. Patient reports occasional shortness of breath during nights. Patient denies any shortness of breath, nausea, vomiting, palpitations and lightheadedness. Patient denies any abdominal pain, burning urination. Patient mentions that he only takes metformin 3-4 times per week and has stopped taking aspirin because it wasn't reconciled. Troponin from -. 2D ECHO was done, pending results. Patient is currently on Heparin drip 02/11/25: Patient was evaluated at the bedside this morning. No overnight event. He is AAO x3. patient reported that he does not have chest pain or shortness of breath. He is hemodynamically stable. The labs remarkable for potassium 3.3, magnesium 1.6, HbA1c 13.9, troponin 82466. Left heart catheterization revealed severe triple-vessel disease. Echocardiogram revealed 25% ejection fraction with segmental akinesis. CT surgery was consulted who recommended CABG with Impella left ventricle assist. Family to decide about the procedure. He is currently on heparin drip, aspirin. Endocrinology on board. Rest of the plan as discussed below. 02/12/25: Patient was evaluated at the bedside this morning. No overnight event. He is AAO x3. patient reported that he does not have chest pain or shortness of breath. He is hemodynamically stable. Cardiology is on board and Dr. Blanton have suggested low-dose beta estela like metoprolol tartrate 12.5 mg b.i.d. for his heart failure. Dr Kaur still recommends CABG with 5.5 Impella LVAD and the patient agrees to it. We will continue Entresto, Aldactone, Jardiance, aspirin, Lasix as per CT surgeon recommendations. Today his potassium is 3.1 and we would like to be above 4 for CABG patients. So we will replace potassium 02/13/25: Patient was seen and evaluated in room 201. Patient reports feeling better. patient denies any chest pain, shortness of breath. He is continuing on Entresto, Aldactone, Jardiance, aspirin, Lasix as per CT surgeon recommendations.Patients Potassium today is 3.7, will continue replacing potassium. Patients was present along with the patient, she has a few question about the CABG procedure which she wanted to ask Dr. Alexis. 02/14/25. Patient was undergoing CABG procedure today in the morning. 02/15/25: Patient was seen and evaluated in room 213. Patient status post CABG day 1. Patient denies any fever, chills, shortness of breath. Patient complaints of pain along the incision. Patient is on IABP and Impella support. patient is on Vasopressin and Norepinephrine drip. Entresto, Aldactone, Jardiance were discontinued by Dr. Alexis. CT surgery are on the case and will follow their recommendations. 02/16/25: Patient was seen and evaluated in room 213. Patient status post CABG day 2. patient was asleep when we went bedside. Spoke with the nurse regarding overnights and she mentioned that patient was a bit confused in the night but later improved with sleep. Patient is continuing on Epinephrine drip. Patient was weaned off IABP and is currently only on Impella. Patient was started on Vancomycin and cefepime due to elevated WBC levels and findings suggestive of pneumonia on chest x-ray 02/17/25: Patient was seen and evaluated in room 213. Patient status post CABG day 2. patient was asleep when we went bedside. Spoke with the nurse regarding overnights and he mentioned that patient was started on lasix protocol. Patient is continuing on Epinephrine drip and Impella. Critical care are on the case and will follow their recommendations. 02/18/25: Patient was seen and examined at bedside. He is status post CABG day 3. He continues on Lasix drip 2.5, With Impella P3 support and epinephrine drip. His total output in the past 24 hours has been optimal, 4740 versus 2165 input. No acute events overnight. We will follow CTS recommendations regarding further weaning off Impella. 02/19/25: Patient was seen and evaluated in room 210. He is status post CABG day 4. He continues on Lasix drip 2.5, With Impella P3 support and epinephrine drip. His total output in the past 24 hours has been 2905 versus 4072. No acute overnight. Patient is scheduled for possible impella removal tomorrow. 02/20/25: Patient was seen and evaluated in room 210. He is status post CABG day 5. He continues on Lasix drip 2.5, Impella setting have been maintained at P3 settings. He is continuing on epinephrine drip. Cefepime was discontinued yesterday because overnight the patient was confused, agitated and combative suspecting the cause of his confusion and started on Zosyn. His total output in the past 24 hours has been 2675 versus 2206. Patient is scheduled for possible impella removal tomorrow. 02/21/25: Patient was seen and evaluated in room 210. He is status post CABG day 6. Patient is continuing on Epinephrine drip. patient was started on Lasix 20mg IV. Patient is scheduled for impella removal today. Patient is continuing on Zosyn. His total output in the past 24 hours has been 6700 versus 1785. 02/22/25: Patient was seen and evaluated in room 210. He is status post CABG day 7. Patient reports feeling better and he doesn't have any active complaints, Impella was removed yesterday and patient is continuing on Epinephrine drip. patient denies any shortness of breath, fever, chills and chest pain. Patient is continuing on Zosyn. His total output in the past 24 hours has been 3650 versus 1775. 02/23/25: Patient was seen and evaluated in room 210. He is status post CABG day 8. Patient complains of pain in left lower extremity, Patient denies any erythema, chest pain. Patient denies any fever, chills, shortness of breath, and dizziness. Ankle X-ray, US venous Doppler was ordered, will follow the results. Patient is continuing on lasix 20mg. His total output in the past 24 hours has been 4900 versus 1829. 02/24/25: Patient was seen and evaluated in room 210. He is status post CABG day 9. Patient is alert, awake, oriented X3. Patient reports that his pain in the left lower leg is getting better. Venous US ordered yesterday came back unrem arkable. Patient denies any chest pain, shortness of breath. Epinephrine drip was discontinued. Patient was started back on Coreg 3.125mg, Jardiance 10mg under cardiology recommendations. His total output in the past 24 hours has been 3300 versus 1560. 02/25/25: Patient was seen and evaluated in room 233 along with his . He is status post CABG day 10. Patient's mentioned that the patient passed blood clots in urine, Patient denies any burning micturition or difficulty urinating. Patient is alert, awake, oriented X3. Patient denies any pain in left lower extremity, Patient denies any chest pain, shortness of breath. Jardiance was stopped because of elevated bicarb. His total output in the past 24 hours has been 2300 versus 690. 02.26.2024: Patient is seen and evaluated in room 223. His current blood pressure is 105/57. He is on Aspirin, Lasix, Coreg, Jardiance, Aldactone, and Lipitor. Case management is coordinating cardiac rehabilitation and potential SNF placement tomorrow. Pulmonology advised thoracentesis for left pleural effusion, the patient is saturating above 95%. The patient reports no dyspnea or orthopnea. He is receiving 12 units of Lantus and is off the insulin drip. He is on Zosyn and Vancomycin, and his WBC is 15.4 today. Bilirubin is trending down to 1.3 02.27.2025: Patient is seen and evaluated in room 223. He has no active complaints, and the nurse reports no overnight events. Chest X-ray demonstrates improvement from yesterday following thoracentesis. Case management is arranging placement to a [facility] facility, pending approval. From the cardiology perspective, the patient is cleared and approved for discharge to rehab. 02.28.2025: Patient is seen and evaluated in room 223. Cardiology left a note indicating possible AICD or LifeVest placement. Patient denies chest pain, shortness of breath, palpitations, and reports no lower-extremity edema. WBC is 14.7 today and trending down. Hemoglobin remains stable at 10.8. Chloride is 100 and BUN is 26. Blood sugars are 150 . Lantus has been increased from 12 units to 15 units. Pending referral to cardiac rehab. 03.01.2025: Patient is seen and evaluated in Room No. 223. The patient appears fluid overloaded. Laboratory results are as follows: WBC 15.5, Hemoglobin 12.5, Platelet count 540, Sodium 135, Chloride 96, BUN 25, Creatinine 1.5. Per Dr. Alexis, ventricular function will be assessed to determine candidacy for an AICD. The patient was previously on Lasix 40 mg, but due to rising BUN and creatinine, the dose has been reduced to Lasix 20 mg twice daily for volume management. 03.02.2025: Patient is seen and evaluated in room no. 223. Patient's WBC is 11.3 and trending down. Platelet count remains elevated at 446. Creatinine improved to 1.2 from 1.5 yesterday. BNP is 363, and we will monitor closely for any signs of fluid overload. The patient is currently wearing a LifeVest and will continue it for 8 weeks as per cardiology. We will transition Lasix from IV to oral formulation. Pending Cardiac rehabilitation approval. REVIEW OF SYSTEMS CONSTITUTIONAL: Denies fevers, chills, or night sweats. No unintentional weight loss reported. NEUROLOGICAL: Denies headache, amaurosis fugax, motor weakness, sensory deficit, vertigo/spinning sensation, gait abnormalities, or tremors. ENT: No hearing loss, otalgia, otorrhea, rhinitis, rhinorrhea, hoarseness, or sore throat. CARDIOVASCULAR: Denies chest pain, dyspnea on exertion, orthopnea, paroxysmal nocturnal dyspnea, palpitations, life-threatening arrhythmias, claudication. PULMONARY: Denies any cough, phlegm/sputum, hemoptysis, pleuritic chest pain. GASTROINTESTINAL: Denies any type of dysphagia to either liquids or solids. Denies nausea, vomiting, pyrosis, early satiety, abdominal pain, diarrhea, constipation, or changes in stool consistency or caliber. Denies coffee-ground emesis, hematemesis, hematochezia, or melanotic stools. GENITOURINARY: Denies frequency, urgency, nocturia, hematuria or incontinence (Storage/Irritative symptoms.) Low urinary stream, straining to void, urinary intermittency or hesitancy, splitting of the voiding stream, terminal dribbling. PHYSICAL EXAM GENERAL APPEARANCE: The patient is awake, alert, and oriented, in no acute cardiopulmonary distress. NEUROLOGICAL: Motor is 5/5 in bilateral upper and lower extremities proximal to distal. No sensory deficits. HEENT: Face is symmetric. Pupils are equal and reactive. Extraocular movements are intact. NECK: Supple. No thyromegaly. No submental, submandibular, pre-/postauricular, occipital or supraclavicular lymphadenopathy. CHEST: Normal chest expansion. No Telemetry. LUNGS: Absence of any rales, rhonchi or any wheezing. CARDIOVASCULAR: Regular. S1 and S2 normal. No appreciable rubs, murmurs or gallops. ABDOMEN: Soft, nontender, and nondistended. There is no rebound, voluntary guarding, or rigidity. : Deferred. No De Jesus. EXTREMITIES: Non-edematous and not cyanotic. No clubbing. Good capillary refill. SKIN: sternal scar - post CABG Vital Signs (last 8hr) Date Time Temp Pulse Resp B/P (MAP) Pulse Ox O2 Delivery O2 Flow Rate FiO2 03/02/25 12:30 98.1 69 16 86/56 97 Room Air 03/02/25 12:28 101/46 03/02/25 08:00 97 Room Air* 0 21 LABS: Laboratory: Test 03/02/25 12:01 03/02/25 03:13 03/01/25 06:44 Range/Units Whole Blood Glucose 189 #H 70-110 MG/DL White Blood Count 11.3 #H 4.8-10.8 K/uL Red Blood Count 3.57 L 4.50-6.20 MIL/uL Hemoglobin 10.6 L 14.0-18.0 g/dL Hematocrit 32.3 L 42-54 % Mean Corpuscular Volume 90.5 79-99 fL Mean Corpuscular Hemoglobin 29.7 27.0-33.0 pg Mean Corpuscular Hemoglobin Concent 32.8 32.0-36.0 g/dL Red Cell Distribution Width 17.5 H 11.0-15.5 % Platelet Count 446 H 130-400 K/uL Mean Platelet Volume 10.2 7.5-10.5 fL Immature Granulocyte % (Auto) 1.4 H 0-1 % Neutrophils (%) (Auto) 60.2 40.0-77.0 % Lymphocytes (%) (Auto) 24.9 21.0-51.0 % Monocytes (%) (Auto) 10.8 3.0-13.0 % Eosinophils (%) (Auto) 2.2 0.0-8.0 % Basophils (%) (Auto) 0.5 0.0-5.0 % Neutrophils # (Auto) 6.8 1.8-7.7 K/uL Lymphocytes # (Auto) 2.8 1.0-4.8 K/uL Monocytes # (Auto) 1.2 H 0.1-1.0 K/uL Eosinophils # (Auto) 0.25 0.00-0.70 K/uL Basophils # (Auto) 0.06 0.00-0.20 K/uL Absolute Immature Granulocyte (auto 0.16 0-1 K/uL Nucleated Red Blood Cells 0.0 0.0-0.19 % Sodium Level 137 136-145 mmol/L Potassium Level 4.1 3.5-5.1 mmol/L Chloride Level 99 L 101-111 mmol/L Carbon Dioxide Level 26 21-32 mmol/L Blood Urea Nitrogen 27 H 7-18 mg/dL Creatinine 1.2 0.5-1.3 mg/dL Glomerular Filtration Rate Calc 63 >90 mL/min Random Glucose 132 H 70-105 mg/dL Total Calcium 8.8 8.5-10.1 mg/dL B-Type Natriuretic Peptide 363 H 0-100 pg/mL Red Blood Cell Morphology See comments Current Medications Medications (Trade) Dose Ordered Sig/Carol Route PRN Reason Start Time Stop Time Status Last Admin Dose Admin Acetaminophen (TYLenol 325MG TAB) 650 mg Q4H PRN PO MILD PAIN (1-3) 02/10/25 05:00 02/14/25 10:05 DC Acetaminophen (TYLenol 325MG TAB) 650 mg Q4H PRN PO Temp >38.3C(AFTER EXTUBATION) 02/14/25 10:00 03/16/25 09:59 Acetaminophen (TYLenol 325MG TAB) 650 mg Q6H PRN PO TEMPERATURE GREATER THAN 101.5 02/10/25 05:00 02/14/25 10:17 DC 02/12/25 17:13 650 MG Acetaminophen (TYLenol 325MG TAB) 650 mg Q6H PRN PO MILD PAIN (1-3) 02/14/25 10:00 03/16/25 09:59 Acetaminophen (TYLenol 650MG SUPPOSITORY) 650 mg Q4H PRN RC Temp >38.3C WHILE INTUBATED 02/14/25 10:00 02/23/25 11:52 DC Acetaminophen (acetaMINOPHEN 1,000MG/100ML) 1,000 mg Q6H6 IV 02/14/25 14:00 02/15/25 13:59 DC 02/15/25 12:14 1,000 MG Albumin Human 50 ml @ 0 mls/hr Q12H9 IV 02/20/25 09:00 02/24/25 08:42 DC 02/24/25 08:15 100 MLS/HR Albumin Human 250 ml @ 0 mls/hr AD IV 02/14/25 15:30 02/18/25 10:40 DC 02/18/25 10:27 250 MLS/HR Albumin Human 250 ml @ 0 mls/hr AD IV 02/18/25 10:30 02/20/25 09:03 DC Albumin Human 250 ml @ 0 mls/hr AD PRN IV IF HEMODYNAMICALLY UNSTABLE 02/14/25 10:00 02/14/25 14:42 DC 02/14/25 14:42 500 MLS/HR Aminocaproic Acid 31790 mg/Sodium Chloride 310 ml @ 25 mls/hr AD IV 02/14/25 10:00 02/14/25 10:19 DC Aminocaproic Acid 38290 mg/Sodium Chloride 480 ml @ 0 mls/hr AD PRN IV BLEEDING CONTROL 02/14/25 06:30 02/23/25 11:52 DC Aminocaproic Acid 44442 mg/Sodium Chloride 480 ml @ 0 mls/hr AD PRN IV BLEEDING CONTROL 02/14/25 07:00 02/14/25 06:51 DC Aspirin (Aspirin 325mg Tab) 325 mg ONCE PO 02/10/25 14:30 02/10/25 17:22 DC 02/10/25 14:32 325 MG Aspirin (Aspirin 81mg Ec Tab) 81 mg DAILY PO 02/10/25 09:00 03/12/25 08:59 03/02/25 12:28 81 MG Atorvastatin Calcium (LIPItor 40MG) 40 mg HS PO 02/14/25 21:00 03/16/25 20:59 03/01/25 21:09 40 MG Calcium Gluconate 1 gm/Sodium Chloride 60 ml @ 200 mls/hr AD PRN IV HYPOCALCEMIA 02/14/25 10:00 03/16/25 09:59 02/21/25 08:36 200 MLS/HR Carvedilol (Coreg 3.125MG) 3.125 mg BID PO 02/20/25 21:00 02/24/25 06:13 DC Carvedilol (Coreg 3.125MG) 3.125 mg BID PO 02/24/25 09:00 03/26/25 08:59 03/02/25 12:28 3.125 MG Cefazolin Sodium (Ancef) 2 gm ONCALL IVP 02/13/25 20:00 02/14/25 18:51 DC 02/14/25 08:50 2 GM Cefazolin Sodium (Ancef) 2 gm Q8H IVPB 02/14/25 15:00 02/15/25 07:01 DC 02/15/25 06:25 2 GM Cefepime HCl (MAXipime 1 GM vial) 1 gm Q12H IVPB 02/16/25 10:30 02/20/25 08:16 DC 02/19/25 22:54 1 GM Clopidogrel Bisulfate (plaVIX 300MG TAB) 600 mg ONCE PO 02/10/25 14:00 02/10/25 17:22 DC 02/10/25 14:19 600 MG Clopidogrel Bisulfate (plaVIX 75MG) 75 mg DAILY PO 02/11/25 09:00 02/11/25 07:28 DC Dexmedetomidine/ Sodium Chloride (PRECEdex 400MCG/ 100ML-NS) 400 mcg PROTOCOL IV 02/14/25 10:00 02/15/25 09:59 DC Dexmedetomidine/ Sodium Chloride (PRECEdex 400MCG/ 100ML-NS) 400 mcg PROTOCOL IV 02/20/25 07:30 02/22/25 15:01 DC 02/22/25 05:51 400 MCG Dexmedetomidine/ Sodium Chloride (PRECEdex 400MCG/ 100ML-NS) 400 mcg PROTOCOL IV 02/23/25 00:00 03/25/25 00:00 02/23/25 00:17 400 MCG Dextrose (D50w) 50 ml AD PRN IV HYPOGLYCEMIA PROTOCOL 02/10/25 05:00 02/14/25 10:17 DC Dextrose (D50w) 50 ml AD PRN IV HYPOGLYCEMIA PROTOCOL 02/14/25 10:00 03/16/25 09:59 Docusate Sodium (COLace 100MG CAP) 100 mg BID PO 02/14/25 21:00 03/16/25 20:59 03/02/25 12:28 100 MG Empaglifozin (Jardiance 10mg) 10 mg DAILY PO 02/10/25 14:30 02/14/25 09:59 DC 02/13/25 10:52 10 MG Empaglifozin (Jardiance 10mg) 10 mg DAILY PO 02/20/25 09:00 02/22/25 15:01 DC 02/22/25 09:38 10 MG Empaglifozin (Jardiance 10mg) 10 mg DAILY PO 02/24/25 09:00 02/24/25 13:01 DC 02/24/25 08:47 10 MG Enoxaparin Sodium (Lovenox) 30 mg DAILY SQ 02/17/25 09:00 03/19/25 08:59 03/02/25 12:30 30 MG Epinephrine HCl 10 mg/Sodium Chloride 250 ml @ 0 mls/hr AD PRN IV TITRATE 02/14/25 06:30 03/16/25 06:29 02/20/25 17:32 2.9 MLS/HR Epinephrine HCl 10 mg/Sodium Chloride 250 ml @ 0 mls/hr AD PRN IV TITRATE 02/14/25 07:00 02/14/25 06:51 DC Epinephrine HCl 10 mg/Sodium Chloride 250 ml @ 0 mls/hr AD PRN IV POST-OP CARDIOVASCULAR ORDERS 02/14/25 10:00 02/14/25 10:14 DC Famotidine (Pepcid 20mg Vial) 20 mg BID IV 02/14/25 21:00 02/16/25 07:58 DC 02/15/25 20:15 20 MG Famotidine (Pepcid 20mg Tab) 20 mg BID PO 02/16/25 09:00 02/17/25 07:09 DC 02/16/25 20:03 20 MG Famotidine (Pepcid 20mg Tab) 20 mg DAILY PO 02/10/25 09:00 02/14/25 09:59 DC 02/13/25 10:53 20 MG Famotidine (Pepcid 20mg Tab) 20 mg DAILY PO 02/17/25 09:00 03/18/25 08:59 03/02/25 12:28 20 MG Furosemide (LASix 20MG TAB) 20 mg DAILY PO 02/11/25 09:00 02/14/25 09:59 DC 02/13/25 10:52 20 MG Furosemide (LASix 20MG TAB) 20 mg Q12H PO 02/16/25 09:00 02/16/25 10:21 DC 02/16/25 08:19 20 MG Furosemide (LASix 20MG VIAL) 20 mg ONCE IV 02/10/25 17:00 02/10/25 21:00 DC 02/10/25 17:00 20 MG Furosemide (LASix 20MG VIAL) 20 mg ONCE IV 02/11/25 09:00 02/11/25 07:43 DC Furosemide (LASix 20MG VIAL) 20 mg Q12H IV 02/15/25 09:00 02/16/25 08:59 DC 02/15/25 20:16 20 MG Furosemide (LASix 20MG VIAL) 20 mg Q12H IV 02/20/25 09:00 02/26/25 09:43 DC 02/25/25 21:27 20 MG Furosemide (LASix 20MG VIAL) 20 mg Q12H IV 03/01/25 22:00 03/31/25 21:59 03/02/25 12:27 20 MG Furosemide (LASix 40MG VIAL) 40 mg Q12H IV 02/26/25 10:00 03/01/25 11:00 DC 03/01/25 09:28 40 MG Furosemide 100 mg/ Sodium Chloride 100 ml @ 0 mls/hr PROTOCOL IV 02/16/25 10:30 02/20/25 09:01 DC 02/19/25 11:35 2.5 MLS/HR Glucagon (Glucagon 1mg Kit) 1 mg AD PRN IM HYPOGLYCEMIA PROTOCOL 02/10/25 05:00 02/14/25 10:17 DC Glucagon (Glucagon 1mg Kit) 1 mg AD PRN IM HYPOGLYCEMIA PROTOCOL 02/14/25 10:00 03/16/25 09:59 Heparin Sodium (Porcine) (HEParin 5,000 UNIT VIAL) *calculation based on ACTUAL B... AD PRN IV HEPARIN PROTOCOL 02/12/25 21:00 02/14/25 09:59 DC 02/12/25 20:16 4,000 UNIT Heparin Sodium/ Dextrose 250 ml @ 0 mls/hr PROTOCOL IV 02/10/25 03:00 02/10/25 17:22 DC 02/10/25 03:00 16.2 MLS/HR Heparin Sodium/ Dextrose 250 ml @ 0 mls/hr Q6H IV 02/11/25 06:30 02/14/25 09:59 DC 02/13/25 13:01 9 MLS/HR Home Med (Home Medication) (Brimonidine-Timolol 0.2%/0.5% EYE DROPS) DAILY OP 02/18/25 09:00 03/20/25 08:59 03/02/25 12:31 1 EACH Insulin Glargine (LANtus 100 UNITS/ML 10 ML VIAL) 10 units DAILY SQ 02/21/25 09:00 02/22/25 19:17 DC 02/22/25 11:54 10 UNITS Insulin Glargine (LANtus 100 UNITS/ML 10 ML VIAL) 12 units DAILY SQ 02/23/25 09:00 02/28/25 05:39 DC 02/27/25 17:30 12 UNITS Insulin Glargine (LANtus 100 UNITS/ML 10 ML VIAL) 12 units DAILY08 SQ 02/13/25 08:00 02/14/25 09:59 DC 02/13/25 10:51 12 UNITS Insulin Glargine (LANtus 100 UNITS/ML 10 ML VIAL) 15 units DAILY SQ 02/28/25 09:00 03/30/25 08:59 03/02/25 12:49 15 UNITS Insulin Glargine (LANtus 100 UNITS/ML 10 ML VIAL) 15 units DAILY08 SQ 02/11/25 08:00 02/13/25 05:24 DC 02/12/25 08:54 15 UNITS Insulin Human Regular (humuLIN R 100 UNIT/ML 3ML) 3 unit TIDAC SQ 02/12/25 07:30 02/14/25 09:59 DC 02/12/25 16:31 3 UNIT Insulin Human Regular (humuLIN R 100 UNIT/ML 3ML) INSULIN SLIDING SCAL... ACHS SQ 02/16/25 11:30 02/28/25 05:39 DC 02/27/25 21:34 2 UNIT Insulin Human Regular (humuLIN R 100 UNIT/ML 3ML) INSULIN SLIDING SCAL... ACHS SQ 02/28/25 07:30 03/30/25 07:29 03/02/25 12:49 2 UNIT Insulin Human Regular (humuLIN R 100 UNIT/ML 3ML) INSULIN SLIDING SCAL... Q4H SQ 02/10/25 05:00 02/10/25 11:10 DC 02/10/25 09:15 6 UNIT Insulin Human Regular (humuLIN R 100 UNIT/ML 3ML) INSULIN SLIDING SCAL... Q6H6 SQ 02/10/25 12:00 02/14/25 09:59 DC 02/11/25 17:29 2 UNIT Insulin Human Regular 100 unit/ Sodium Chloride 100 ml @ 0 mls/hr AD IV 02/14/25 10:00 02/16/25 09:59 DC 02/15/25 06:30 3 MLS/HR Lactulose (Constulose 20gm/ 30ml Udcup) 20 gm BID PRN PO CONSTIPATION 02/14/25 10:00 03/16/25 09:59 02/28/25 15:56 20 GM Latanoprost (Xalatan) 1 DROP FOR EACH EYE HS OP 02/17/25 21:00 03/19/25 20:59 03/01/25 21:10 1 DROP Magnesium Hydroxide (Milk Of Magnesium 30ml) 30 ml DAILY PRN PO CONSTIPATION 02/14/25 10:00 03/16/25 09:59 Magnesium Sulfate 50 ml @ 12.5 mls/hr AD PRN IV MAG LEVEL LESS THAN 2.0 02/14/25 10:00 03/16/25 09:59 02/24/25 08:17 12.5 MLS/HR Magnesium Sulfate 50 ml @ 0 mls/hr PROTOCOL PRN IV OTHER [SEE ORDER COMMENTS] 02/10/25 05:00 02/14/25 10:17 DC 02/12/25 07:13 25 MLS/HR Metoprolol Tartrate (loprESSOR) 12.5 mg BID PO 02/12/25 09:00 02/14/25 09:59 DC 02/14/25 06:44 12.5 MG Metoprolol Tartrate (loprESSOR) 12.5 mg BID PO 02/16/25 09:00 02/20/25 09:01 DC Midodrine (PROAMatine 5 MG TABLET) 10 mg TID PO 02/23/25 14:00 03/25/25 13:59 03/02/25 12:27 10 MG Morphine Sulfate (morPHINE 2MG SYG) 0.5 mg Q2H PRN IV MODERATE PAIN (4-6) IF NPO 02/14/25 10:00 02/15/25 09:59 DC Morphine Sulfate (morPHINE 2MG SYG) 1 mg Q2H PRN IV SEVERE PAIN (7-10) IF NPO 02/14/25 10:30 02/19/25 13:29 DC 02/14/25 14:23 1 MG Nitroglycerin (Nitrostat) 0.4 mg PROTOCOL PRN SL CHEST PAIN 02/10/25 05:00 02/14/25 09:59 DC Nitroglycerin/ Dextrose 0 ml @ 0 mls/hr AD IV 02/14/25 10:00 02/17/25 09:59 DC Norepinephrine Bitartrate 250 ml @ 0 mls/hr AD PRN IV TITRATE 02/14/25 06:30 03/16/25 06:29 02/17/25 01:06 1.9 MLS/HR Norepinephrine Bitartrate 250 ml @ 0 mls/hr AD PRN IV TITRATE 02/14/25 07:00 02/14/25 06:51 DC Norepinephrine Bitartrate 8 mg/ Dextrose 250 ml @ 0 mls/hr AD PRN IV POST-OP CARDIOVASCULAR ORDERS 02/14/25 10:00 02/14/25 10:14 DC Ondansetron HCl (zoFRAN 4MG INJ) 4 mg Q6H PRN IV NAUSEA/VOMITING 02/10/25 05:00 02/14/25 10:17 DC Ondansetron HCl (zoFRAN 4MG INJ) 4 mg Q6H PRN IV NAUSEA/VOMITING 02/14/25 10:00 03/16/25 09:59 Pharmacy Profile Note (Pharmacy Communication) 1 each ONCE MISC 02/14/25 18:00 02/14/25 18:27 DC Pharmacy Profile Note (Pharmacy Communication) 1 each ONCE MISC 02/20/25 11:30 02/20/25 11:19 DC Piperacillin Sod/ Tazobactam Sod 50 ml @ 12.5 mls/hr Q8H IVPB 02/20/25 11:30 02/24/25 18:10 DC 02/24/25 11:45 12.5 MLS/HR Piperacillin Sod/ Tazobactam Sod 50 ml @ 12.5 mls/hr Q8H6 IVPB 02/24/25 22:00 03/06/25 21:59 03/02/25 05:14 12.5 MLS/HR Potassium Phosphate 250 ml @ 42 mls/hr AD PRN IV LOW PHOS LEVEL 02/14/25 10:00 03/16/25 09:59 Potassium Chloride 100 ml @ 100 mls/hr AD PRN IV POTASSIUM PROTOCOL 02/10/25 05:00 02/15/25 06:27 DC 02/15/25 05:43 100 MLS/HR Potassium Chloride 100 ml @ 100 mls/hr AD PRN IV HYPOKALEMIA 02/14/25 10:00 03/16/25 09:59 02/21/25 16:43 100 MLS/HR Potassium Chloride (K-Dur/Klor-Con 20meq) 20 meq AD PRN PO POTASSIUM PROTOCOL 02/10/25 05:00 03/12/25 04:59 02/18/25 20:18 20 MEQ Potassium Chloride (K-Dur/Klor-Con 20meq) 20 meq BID PO 02/19/25 10:30 03/21/25 10:29 03/02/25 12:37 20 MEQ Potassium Chloride (KCl 10% Elixir 20meq/15ml) 20 meq AD PRN PO POTASSIUM PROTOCOL 02/10/25 05:00 03/12/25 04:59 02/25/25 09:30 20 MEQ Prednisone (deltaSONE/ oraSONE 20MG TAB) 20 mg DAILY PO 02/23/25 12:30 02/26/25 13:00 DC 02/26/25 09:50 20 MG Propofol 100 ml @ 0 mls/hr AD PRN IV SEDATION 02/14/25 10:00 02/18/25 09:59 DC Sacubitril/ Valsartan (Entresto 24 Mg-26 Mg Tablet) 0.5 each BID PO 02/10/25 21:00 02/14/25 09:59 DC 02/13/25 21:11 0.5 EACH Sodium Bicarbonate 25 meq/Dextrose 1,025 ml @ 0 mls/hr Q0M IV 02/14/25 18:00 03/16/25 17:59 02/18/25 13:03 9.9 MLS/HR Sodium Bicarbonate (Sodium Bicarb 50meq 50ml Vial) 50 meq AD PRN IV OTHER[SEE DOSING INSTRUCTIONS] 02/14/25 10:00 02/17/25 09:59 DC 02/16/25 15:25 50 MEQ Sodium Chloride 500 ml @ 0 mls/hr AD IV 02/14/25 10:00 03/16/25 09:59 Sodium Chloride 1,000 ml @ 10 mls/hr ONCE IV 02/14/25 10:00 02/15/25 09:59 DC Sodium Chloride 1,000 ml @ 100 mls/hr Q10H IV 02/10/25 05:00 02/10/25 17:22 DC 02/10/25 14:20 100 MLS/HR Sodium Chloride (NS Flush 10ml) 10 ml Q8H PRN IVP IV LINE FLUSH 02/14/25 10:00 03/16/25 09:59 Spironolactone (Aldactone 25mg) 25 mg DAILY PO 02/10/25 14:30 02/14/25 09:59 DC 02/13/25 10:52 25 MG Spironolactone (Aldactone 25mg) 25 mg DAILY PO 02/20/25 09:00 03/22/25 08:59 03/02/25 12:27 25 MG Tramadol HCl (UltRAM) 25 mg Q6H PRN PO MODERATE PAIN (4-6) 02/14/25 10:00 02/19/25 09:59 DC Tramadol HCl (UltRAM) 50 mg Q6H PRN PO SEVERE PAIN (7-10) 02/14/25 10:00 02/19/25 09:59 DC Vancomycin HCl 250 ml @ 125 mls/hr Q12H IV 02/18/25 11:30 02/21/25 05:33 DC 02/19/25 11:20 125 MLS/HR Vancomycin HCl 250 ml @ 125 mls/hr Q24H IV 02/21/25 06:00 02/24/25 05:57 DC 02/23/25 06:28 125 MLS/HR Vancomycin HCl 250 ml @ 125 mls/hr Q24H IV 02/24/25 06:30 02/24/25 12:15 DC 02/24/25 06:26 125 MLS/HR Vancomycin HCl (Vancomycin Protocol) 1 each AD IV 02/18/25 11:00 02/24/25 12:15 DC Vasopressin 40 units/Sodium Chloride 40 ml @ 0 mls/hr PROTOCOL IV 02/14/25 13:00 03/16/25 12:59 02/14/25 22:11 1.8 MLS/HR DIAGNOSTICS / RADIOLOGY: [ ] ASSESSMENT: Chest pain rule out ACS: NSTEMI POA Suspected pneumonia findings on Chest X-ray Possible metabolic encephalopathy Hyperglycemia secondary to uncontrolled diabetes POA Hyperlipidemia POA Medication noncompliance, POA Obesity POA MT/Coronary artery disease with cardiac stent POA PLAN: Pending SNF Approval NSTEMI POA: * EKG was done which revealed sinus rhythm heart rate 85 with atrial premature complex anterolateral infarct age indeterminate. Second EKG result revealed sinus rhythm heart rate 73 with left anterior fascicular block. Probable anterolateral infarct age indeterminate. Abnormal T consider ischemia lateral leads. * PERC score was one, Wells score was zero. Very low suspicion for Pulmonary Embolism. * Chest X - ray on 02.25.2025 - Persistent small left pleural effusion with left mid and lower zone airspace opacities, significantly unchanged from prior study. * Thoracentesis done today - removed 1.1 lit of fluid by Dr. Louie and the patient tolerated the procedure well * Chest x-ray done on 02/17/25 show, small stable left pleural effusion with adjacent lung atelectasis. follow up x-ray from 02/22/25 show Cardiomegaly with median sternotomy with cardiac revascularization procedure, there is suggestion of a moderate left-sided pleural effusion. * 2-D ECHO on 02/19/25 show LVEF of 25-30% with segmental akinesis (apical, apical lateral, anteroapical), LDL 89, BNP 488 * Troponin trends [id number] * Left heart catheterization revealed severe three-vessel CAD with occluded mid LAD, 90% proximal left circumflex, 95% distal RCA, and 90% ostial PDA. * As per CT surgeon recommendations Entresto 0.5 each, was held. 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 * On aspirin 81 mg p.o. * Patient is on lasix 20mg IV. * Impella removed * Epinpehrine drip was discontinued and patient was started on Coreg 31.125, * Jardiance 10mg was held due to elevated bicarb. * lifevest as per cardiology Suspected pneumonia findings on Chest X-ray * Chest x-ray done on 02/16/25 show diffuse airspace disease of the left lung, predominantly involving the left lower zone, could be due to an infection or atelectasis. Questionable left pleural effusion. * Chest x-ray done on 02/17/25 show, small stable left pleural effusion with adjacent lung atelectasis. follow up x-ray from 02/19/25 show no interval change. * Patient on Zosyn- Started on 02/20/25 * WBC count on (03/02/25) - 11.3 * Will monitor with daily labs. Possible metabolic encephalopathy * Chest x-ray done on 02/17/25 show, small stable left pleural effusion with adjacent lung atelectasis. * Patient was started on Vancomycin and cefepime due to elevated WBC levels and findings suggestive of pneumonia on chest x-ray * Cefepime was discontinued on 02/20/25 because the patient was confused, agitated and combative suspecting the cause of his confusion and was started on Zosyn. * Will monitor with daily labs Hyperglycemia secondary to uncontrolled diabetes POA: * HbA1c 13.9 * Following the Endocrinology recommendations. He is on Lantus 15 units, low- dose sliding scale insulin * Jardiance 10mg was held due to elevated bicarb. * We will monitor blood glucose. Hypokalemia Hypomagnesemia - resolved * Potassium 4.2 - 03.02.2025 * Magnesium 2 (02.27.2025) * We will replete the electrolytes and monitor. * Keep potassium above 4 and magnesium above 2. * We will start Slow-Mag oral t.i.d. once and will keep monitoring magnesium levels. Supportive measures * GI prophylaxis with Famotidine * DVT prophylaxis with SCD's ATTESTATION BY PHYSICIAN I have seen and examined the patient. I reviewed the documentation, medical decision making, and treatment plan as noted by the resident provider above. I agree with the findings and plan of care. Juanjo Cleveland MD, LAKSHMI MD Mar 02, 2025 15:54
--- NOTE | 2025-03-02 20:28 | PN ---
Endocrinology progress note DOS: 03/02/25 subjective: glucose are improving/stable and s/p CABG procedure Home diabetic regimen: metformin 500 mg bid, Hba1c 13.9% s/p thoracentesis. insulin has been adjusted PAST MEDICAL HISTORY: [ Diabetes, hyperlipidemia, IA/coronary artery disease ] PAST SURGICAL HISTORY: [ Cardiac stent, cholecystectomy and left inguinal hernia repair ] PAST SOCIAL HISTORY: [ Patient lives with . Patient admits he drinks two beer yesterday. Patient reports he occasional drinks alcohol denies cigarette and recreational drug use. ] FAMILY HISTORY: [ Diabetes, cardiovascular disease, asthma and cancer ] Coded Allergies: No Known Drug Allergies (Unverified Allergy, Unknown, 08/31/15) ASSESSMENT: Hyperglycemia secondary to uncontrolled diabetes POA improving Home diabetic regimen: metformin 500 mg bid, Hba1c 13.9% glucose is improving. NSTEMI POA s/p CABG triple vessel disease s/p CABG hospital acquired pneumonia Hyperlipidemia POA Obesity POA IA/Coronary artery disease with cardiac stent POA PLAN: OFF insulin drip continue lantus 15 units daily. off regular insulin. Continue medium dose sliding scale insulin. Monitor glucose q x 6 hourly. Keep glucose less than 180 mg/dl. Patient will need insulin at discharge Vitals/Labs Vital Signs Date Time Temp Pulse Resp B/P (MAP) Pulse Ox O2 Delivery O2 Flow Rate FiO2 03/02/25 16:00 97.3 64 16 94/52 99 Room Air 03/02/25 08:00 0 21 Laboratory Tests 03/02/25 03:13 Medications Current Medications Sodium Chloride 1,000 ml @ 0 mls/hr ONCE ONCE IV; Start 02/10/25 at 01:00; Stop 02/10/25 at 00:46; Status DC Sodium Chloride 500 ml @ 0 mls/hr ONCE ONCE IV Last administered on 02/10/25at 00:53; Start 02/10/25 at 01:00; Stop 02/10/25 at 01:01; Status DC Insulin Human Regular 5 unit ONCE ONCE IV Last administered on 02/10/25at 01:30; Start 02/10/25 at 01:30; Stop 02/10/25 at 01:31; Status DC Aspirin 325 mg ONCE ONCE PO Last administered on 02/10/25at 02:32; Start 02/10/25 at 02:30; Stop 02/10/25 at 02:31; Status DC Heparin Sodium/ Dextrose 250 ml @ 0 mls/hr PROTOCOL IV Last administered on 02/10/25at 03:00; Start 02/10/25 at 03:00; Stop 02/10/25 at 17:22; Status DC Heparin Sodium (Porcine) 7,000 unit ONCE ONCE SQ Last administered on 02/10/25at 02:55; Start 02/10/25 at 03:00; Stop 02/10/25 at 03:01; Status DC Acetaminophen 650 mg Q6H PRN PO Last administered on 02/12/25at 17:13; Start 02/10/25 at 05:00; Stop 02/14/25 at 10:17; Status DC Acetaminophen 650 mg Q4H PRN PO; Start 02/10/25 at 05:00; Stop 02/14/25 at 10:05; Status DC Ondansetron HCl 4 mg Q6H PRN IV; Start 02/10/25 at 05:00; Stop 02/14/25 at 10:17; Status DC Nitroglycerin 0.4 mg PROTOCOL PRN SL; Start 02/10/25 at 05:00; Stop 02/14/25 at 09:59; Status DC Famotidine 20 mg DAILY PO Last administered on 02/13/25at 10:53; Start 02/10/25 at 09:00; Stop 02/14/25 at 09:59; Status DC Sodium Chloride 1,000 ml @ 100 mls/hr Q10H IV Last administered on 02/10/25at 14:20; Start 02/10/25 at 05:00; Stop 02/10/25 at 17:22; Status DC Insulin Human Regular INSULIN SLIDING SCAL... Q4H SQ Last administered on 02/10/25at 09:15; Start 02/10/25 at 05:00; Stop 02/10/25 at 11:10; Status DC Dextrose 50 ml AD PRN IV; Start 02/10/25 at 05:00; Stop 02/14/25 at 10:17; Status DC Glucagon 1 mg AD PRN IM; Start 02/10/25 at 05:00; Stop 02/14/25 at 10:17; Status DC Magnesium Sulfate 50 ml @ 0 mls/hr PROTOCOL PRN IV Last administered on 02/12/25at 07:13; Start 02/10/25 at 05:00; Stop 02/14/25 at 10:17; Status DC Potassium Chloride 100 ml @ 100 mls/hr AD PRN IV Last administered on 02/15/25at 05:43; Start 02/10/25 at 05:00; Stop 02/15/25 at 06:27; Status DC Potassium Chloride 20 meq AD PRN PO Last administered on 02/25/25at 09:30; Start 02/10/25 at 05:00; Stop 03/12/25 at 04:59 Potassium Chloride 20 meq AD PRN PO Last administered on 02/18/25at 20:18; Start 02/10/25 at 05:00; Stop 03/12/25 at 04:59 Aspirin 81 mg DAILY PO Last administered on 03/02/25at 12:28; Start 02/10/25 at 09:00; Stop 03/12/25 at 08:59 Insulin Human Regular INSULIN SLIDING SCAL... Q6H6 SQ Last administered on 02/11/25at 17:29; Start 02/10/25 at 12:00; Stop 02/14/25 at 09:59; Status DC Clopidogrel Bisulfate 600 mg ONCE PO Last administered on 02/10/25at 14:19; Start 02/10/25 at 14:00; Stop 02/10/25 at 17:22; Status DC Aspirin 325 mg ONCE PO Last administered on 02/10/25at 14:32; Start 02/10/25 at 14:30; Stop 02/10/25 at 17:22; Status DC Sacubitril/ Valsartan 0.5 each BID PO Last administered on 02/13/25at 21:11; Start 02/10/25 at 21:00; Stop 02/14/25 at 09:59; Status DC Empaglifozin 10 mg DAILY PO Last administered on 02/13/25at 10:52; Start 02/10/25 at 14:30; Stop 02/14/25 at 09:59; Status DC Spironolactone 25 mg DAILY PO Last administered on 02/13/25at 10:52; Start 02/10/25 at 14:30; Stop 02/14/25 at 09:59; Status DC Furosemide 20 mg ONCE IV Last administered on 02/10/25at 17:00; Start 02/10/25 at 17:00; Stop 02/10/25 at 21:00; Status DC Furosemide 20 mg ONCE IV; Start 02/11/25 at 09:00; Stop 02/11/25 at 07:43; Status DC Lidocaine HCl 20 ml STK-MED ONCE .ROUTE; Start 02/10/25 at 15:22; Stop 02/10/25 at 15:23; Status DC Iohexol 35,000 mg STK-MED ONCE IV; Start 02/10/25 at 15:22; Stop 02/10/25 at 15:23; Status DC Iohexol 50 ml STK-MED ONCE IV; Start 02/10/25 at 15:22; Stop 02/10/25 at 15:23; Status DC Heparin Sodium (Porcine) 10,000 unit STK-MED ONCE .ROUTE; Start 02/10/25 at 15:23; Stop 02/10/25 at 15:23; Status DC Heparin Sodium/ Sodium Chloride 1,000 ml @ As Directed STK-MED ONCE IV; Start 02/10/25 at 15:23; Stop 02/10/25 at 15:23; Status DC Nitroglycerin 50 mg STK-MED ONCE .ROUTE; Start 02/10/25 at 15:23; Stop 02/10/25 at 15:23; Status DC Heparin Sodium/ Sodium Chloride 500 ml @ As Directed STK-MED ONCE IV; Start 02/10/25 at 15:35; Stop 02/10/25 at 15:35; Status DC Fentanyl Citrate 100 mcg STK-MED ONCE .ROUTE; Start 02/10/25 at 15:39; Stop 02/10/25 at 15:40; Status DC Midazolam HCl 2 mg STK-MED ONCE .ROUTE; Start 02/10/25 at 15:40; Stop 02/10/25 at 15:40; Status DC Bivalirudin 250 mg STK-MED ONCE IV; Start 02/10/25 at 16:15; Stop 02/10/25 at 16:15; Status DC Heparin Sodium (Porcine) 7,000 unit ONCE ONCE IV Last administered on 02/11/25at 05:46; Start 02/11/25 at 05:30; Stop 02/11/25 at 05:31; Status DC Heparin Sodium/ Dextrose 250 ml @ 0 mls/hr Q6H IV Last administered on 02/13/25at 13:01; Start 02/11/25 at 06:30; Stop 02/14/25 at 09:59; Status DC Clopidogrel Bisulfate 75 mg DAILY PO; Start 02/11/25 at 09:00; Stop 02/11/25 at 07:28; Status DC Insulin Glargine 15 units DAILY08 SQ Last administered on 02/12/25at 08:54; Start 02/11/25 at 08:00; Stop 02/13/25 at 05:24; Status DC Furosemide 20 mg DAILY PO Last administered on 02/13/25at 10:52; Start 02/11/25 at 09:00; Stop 02/14/25 at 09:59; Status DC Insulin Human Regular 3 unit TIDAC SQ Last administered on 02/12/25at 16:31; Start 02/12/25 at 07:30; Stop 02/14/25 at 09:59; Status DC Metoprolol Tartrate 12.5 mg BID PO Last administered on 02/14/25at 06:44; Start 02/12/25 at 09:00; Stop 02/14/25 at 09:59; Status DC Potassium Chloride 40 meq BID ONCE PO; Start 02/12/25 at 21:00; Stop 02/12/25 at 21:01; Status DC Magnesium Chloride 64 mg Q8H6 ONCE PO; Start 02/12/25 at 14:00; Stop 02/12/25 at 14:01; Status DC Heparin Sodium (Porcine) *calculation based on ACTUAL B... AD PRN IV Last administered on 02/12/25at 20:16; Start 02/12/25 at 21:00; Stop 02/14/25 at 09:59; Status DC Insulin Glargine 12 units DAILY08 SQ Last administered on 02/13/25at 10:51; Start 02/13/25 at 08:00; Stop 02/14/25 at 09:59; Status DC Cefazolin Sodium 2 gm ONCALL IVP Last administered on 02/14/25at 08:50; Start 02/13/25 at 20:00; Stop 02/14/25 at 18:51; Status DC Epinephrine HCl 10 mg/Sodium Chloride 250 ml @ 0 mls/hr AD PRN IV Last administered on 02/20/25at 17:32; Start 02/14/25 at 06:30; Stop 03/16/25 at 06:29 Norepinephrine Bitartrate 250 ml @ 0 mls/hr AD PRN IV Last administered on 02/17/25at 01:06; Start 02/14/25 at 06:30; Stop 03/16/25 at 06:29 Aminocaproic Acid 74761 mg/Sodium Chloride 480 ml @ 0 mls/hr AD PRN IV; Start 02/14/25 at 06:30; Stop 02/23/25 at 11:52; Status DC Epinephrine HCl 10 mg/Sodium Chloride 250 ml @ 0 mls/hr AD PRN IV; Start 02/14/25 at 07:00; Stop 02/14/25 at 06:51; Status DC Norepinephrine Bitartrate 250 ml @ 0 mls/hr AD PRN IV; Start 02/14/25 at 07:00; Stop 02/14/25 at 06:51; Status DC Aminocaproic Acid 94653 mg/Sodium Chloride 480 ml @ 0 mls/hr AD PRN IV; Start 02/14/25 at 07:00; Stop 02/14/25 at 06:51; Status DC Cefazolin Sodium 2 gm STK-MED ONCE .ROUTE; Start 02/14/25 at 06:53; Stop 02/14/25 at 06:53; Status DC Nitroglycerin/ Dextrose 1 ml @ As Directed STK-MED ONCE .ROUTE; Start 02/14/25 at 07:00; Stop 02/14/25 at 07:00; Status DC Cefazolin Sodium 1 gm STK-MED ONCE .ROUTE Last administered on 02/14/25at 10:09; Start 02/14/25 at 07:37; Stop 02/14/25 at 07:38; Status DC Heparin Sodium/ Sodium Chloride 500 ml @ As Directed STK-MED ONCE IV; Start 02/14/25 at 07:38; Stop 02/14/25 at 07:38; Status DC Papaverine HCl 60 mg STK-MED ONCE .ROUTE Last administered on 02/14/25at 10:10; Start 02/14/25 at 07:38; Stop 02/14/25 at 07:38; Status DC Midazolam HCl 2 mg STK-MED ONCE .ROUTE; Start 02/14/25 at 08:14; Stop 02/14/25 at 08:14; Status DC Ketamine HCl 500 mg STK-MED ONCE IJ; Start 02/14/25 at 08:16; Stop 02/14/25 at 08:16; Status DC Protamine Sulfate 250 mg STK-MED ONCE IV; Start 02/14/25 at 08:17; Stop 02/14/25 at 08:17; Status DC Lidocaine HCl 100 mg STK-MED ONCE .ROUTE; Start 02/14/25 at 08:17; Stop 02/14/25 at 08:17; Status DC Heparin Sodium (Porcine) 10,000 unit STK-MED ONCE .ROUTE; Start 02/14/25 at 08:17; Stop 02/14/25 at 08:17; Status DC Epinephrine HCl 1 mg STK-MED ONCE .ROUTE; Start 02/14/25 at 08:17; Stop 02/14/25 at 08:17; Status DC Sodium Bicarbonate 200 ml @ As Directed STK-MED ONCE .ROUTE; Start 02/14/25 at 08:17; Stop 02/14/25 at 08:17; Status DC Norepinephrine Bitartrate 4 mg STK-MED ONCE IV; Start 02/14/25 at 08:17; Stop 02/14/25 at 08:17; Status DC Propofol 200 mg STK-MED ONCE IV; Start 02/14/25 at 08:19; Stop 02/14/25 at 08:19; Status DC Fentanyl Citrate 1,000 mcg STK-MED ONCE IJ; Start 02/14/25 at 08:19; Stop 02/14/25 at 08:19; Status DC Midazolam HCl 2 mg STK-MED ONCE .ROUTE; Start 02/14/25 at 08:20; Stop 02/14/25 at 08:20; Status DC Rocuronium [place] 50 mg STK-MED ONCE .ROUTE; Start 02/14/25 at 08:20; Stop 02/14/25 at 08:20; Status DC Acetaminophen 1,000 mg Q6H6 IV Last administered on 02/15/25at 12:14; Start 02/14/25 at 14:00; Stop 02/15/25 at 13:59; Status DC Aspirin 81 mg ONCE ONCE NG Last administered on 02/14/25at 13:56; Start 02/14/25 at 14:00; Stop 02/14/25 at 14:01; Status DC Docusate Sodium 100 mg BID PO Last administered on 12/4/25at 12:28; Start 02/14/25 at 21:00; Stop 03/16/25 at 20:59 Lactulose 20 gm BID PRN PO Last administered on 02/28/25at 15:56; Start 02/14/25 at 10:00; Stop 03/16/25 at 09:59 Furosemide 20 mg Q12H PO Last administered on 02/16/25at 08:19; Start 02/16/25 at 09:00; Stop 02/16/25 at 10:21; Status DC Furosemide 20 mg Q12H IV Last administered on 02/15/25at 20:16; Start 02/15/25 at 09:00; Stop 02/16/25 at 08:59; Status DC Atorvastatin Calcium 40 mg HS PO Last administered on 03/01/25at 21:09; Start 02/14/25 at 21:00; Stop 03/16/25 at 20:59 Enoxaparin Sodium 30 mg DAILY SQ Last administered on 03/02/25at 12:30; Start 02/17/25 at 09:00; Stop 03/19/25 at 08:59 Metoprolol Tartrate 12.5 mg BID PO; Start 02/16/25 at 09:00; Stop 02/20/25 at 09:01; Status DC Magnesium Hydroxide 30 ml DAILY PRN PO; Start 02/14/25 at 10:00; Stop 03/16/25 at 09:59 Dexmedetomidine/ Sodium Chloride 400 mcg PROTOCOL IV; Start 02/14/25 at 10:00; Stop 02/15/25 at 09:59; Status DC Acetaminophen 650 mg Q6H PRN PO; Start 02/14/25 at 10:00; Stop 03/16/25 at 09:59 Heparin Sodium (Porcine) 10,000 unit STK-MED ONCE .ROUTE; Start 02/14/25 at 10:00; Stop 02/14/25 at 10:00; Status DC Sodium Chloride 1,000 ml @ 10 mls/hr ONCE IV; Start 02/14/25 at 10:00; Stop 02/15/25 at 09:59; Status DC Sodium Chloride 10 ml Q8H PRN IVP; Start 02/14/25 at 10:00; Stop 03/16/25 at 09:59 Morphine Sulfate 0.5 mg Q2H PRN IV; Start 02/14/25 at 10:00; Stop 02/15/25 at 09:59; Status DC Morphine Sulfate 1 mg Q2H PRN IV Last administered on 02/14/25at 14:23; Start 02/14/25 at 10:30; Stop 02/19/25 at 13:29; Status DC Acetaminophen 650 mg Q4H PRN RC; Start 02/14/25 at 10:00; Stop 02/23/25 at 11:52; Status DC Ondansetron HCl 4 mg Q6H PRN IV; Start 02/14/25 at 10:00; Stop 03/16/25 at 09:59 Sodium Chloride 500 ml @ 0 mls/hr AD IV; Start 02/14/25 at 10:00; Stop 03/16/25 at 09:59 Nitroglycerin/ Dextrose 0 ml @ 0 mls/hr AD IV; Start 02/14/25 at 10:00; Stop 02/17/25 at 09:59; Status DC Propofol 100 ml @ 0 mls/hr AD PRN IV; Start 02/14/25 at 10:00; Stop 02/18/25 at 09:59; Status DC Norepinephrine Bitartrate 8 mg/ Dextrose 250 ml @ 0 mls/hr AD PRN IV; Start 02/14/25 at 10:00; Stop 02/14/25 at 10:14; Status DC Epinephrine HCl 10 mg/Sodium Chloride 250 ml @ 0 mls/hr AD PRN IV; Start 02/14/25 at 10:00; Stop 02/14/25 at 10:14; Status DC Aminocaproic Acid 60034 mg/Sodium Chloride 310 ml @ 25 mls/hr AD IV; Start 02/14/25 at 10:00; Stop 02/14/25 at 10:19; Status DC Calcium Gluconate 1 gm/Sodium Chloride 60 ml @ 200 mls/hr AD PRN IV Last administered on 02/21/25at 08:36; Start 02/14/25 at 10:00; Stop 03/16/25 at 09:59 Magnesium Sulfate 50 ml @ 12.5 mls/hr AD PRN IV Last administered on 02/24/25at 08:17; Start 02/14/25 at 10:00; Stop 03/16/25 at 09:59 Potassium Chloride 100 ml @ 100 mls/hr AD PRN IV Last administered on 02/21/25at 16:43; Start 02/14/25 at 10:00; Stop 03/16/25 at 09:59 Potassium Phosphate 250 ml @ 42 mls/hr AD PRN IV; Start 02/14/25 at 10:00; Stop 03/16/25 at 09:59 Albumin Human 250 ml @ 0 mls/hr AD PRN IV Last administered on 02/14/25at 14:42; Start 02/14/25 at 10:00; Stop 02/14/25 at 14:42; Status DC Acetaminophen 650 mg Q4H PRN PO; Start 02/14/25 at 10:00; Stop 03/16/25 at 09:59 Insulin Human Regular 100 unit/ Sodium Chloride 100 ml @ 0 mls/hr AD IV Last administered on 02/15/25at 06:30; Start 02/14/25 at 10:00; Stop 02/16/25 at 09:59; Status DC Cefazolin Sodium 2 gm Q8H IVPB Last administered on 02/15/25at 06:25; Start 02/14/25 at 15:00; Stop 02/15/25 at 07:01; Status DC Tramadol HCl 25 mg Q6H PRN PO; Start 02/14/25 at 10:00; Stop 02/19/25 at 09:59; Status DC Tramadol HCl 50 mg Q6H PRN PO; Start 02/14/25 at 10:00; Stop 02/19/25 at 09:59; Status DC Famotidine 20 mg BID IV Last administered on 02/15/25at 20:15; Start 02/14/25 at 21:00; Stop 02/16/25 at 07:58; Status DC Sodium Bicarbonate 50 meq AD PRN IV Last administered on 02/16/25at 15:25; Start 02/14/25 at 10:00; Stop 02/17/25 at 09:59; Status DC Dextrose 50 ml AD PRN IV; Start 02/14/25 at 10:00; Stop 03/16/25 at 09:59 Glucagon 1 mg AD PRN IM; Start 02/14/25 at 10:00; Stop 03/16/25 at 09:59 Dobutamine HCl 250 mg STK-MED ONCE .ROUTE; Start 02/14/25 at 10:28; Stop 02/14/25 at 10:28; Status DC Sodium Bicarbonate 50 ml @ As Directed STK-MED ONCE .ROUTE; Start 02/14/25 at 10:52; Stop 02/14/25 at 10:52; Status DC Sodium Bicarbonate 200 ml @ As Directed STK-MED ONCE .ROUTE; Start 02/14/25 at 10:53; Stop 02/14/25 at 10:53; Status DC Vasopressin 20 units STK-MED ONCE .ROUTE; Start 02/14/25 at 11:51; Stop 02/14/25 at 11:51; Status DC Rocuronium [place] 50 mg STK-MED ONCE .ROUTE; Start 02/14/25 at 12:14; Stop 02/14/25 at 12:14; Status DC Sodium Bicarbonate 100 ml @ As Directed STK-MED ONCE .ROUTE; Start 02/14/25 at 12:16; Stop 02/14/25 at 12:16; Status DC Vasopressin 40 units/Sodium Chloride 40 ml @ 0 mls/hr PROTOCOL IV Last administered on 02/14/25at 22:11; Start 02/14/25 at 13:00; Stop 03/16/25 at 12:59 Albumin Human 250 ml @ 0 mls/hr AD IV Last administered on 02/18/25at 10:27; Start 02/14/25 at 15:30; Stop 02/18/25 at 10:40; Status DC Calcium Gluconate 2 gm/Sodium Chloride 100 ml @ 0 mls/hr ONCE ONCE IV Last administered on 02/14/25at 16:15; Start 02/14/25 at 16:30; Stop 02/14/25 at 16:31; Status DC Pharmacy Profile Note 1 each ONCE MISC; Start 02/14/25 at 18:00; Stop 02/14/25 at 18:27; Status DC Sodium Bicarbonate 25 meq/Dextrose 1,025 ml @ 0 mls/hr Q0M IV Last administered on 02/18/25at 13:03; Start 02/14/25 at 18:00; Stop 03/16/25 at 17:59 Famotidine 20 mg BID PO Last administered on 02/16/25at 20:03; Start 02/16/25 at 09:00; Stop 02/17/25 at 07:09; Status DC Insulin Human Regular INSULIN SLIDING SCAL... ACHS SQ Last administered on 02/27/25at 21:34; Start 02/16/25 at 11:30; Stop 02/28/25 at 05:39; Status DC Cefepime HCl 1 gm Q12H IVPB Last administered on 02/19/25at 22:54; Start 02/16/25 at 10:30; Stop 02/20/25 at 08:16; Status DC Furosemide 100 mg/ Sodium Chloride 100 ml @ 0 mls/hr PROTOCOL IV Last administered on 02/19/25at 11:35; Start 02/16/25 at 10:30; Stop 02/20/25 at 09:01; Status DC Vancomycin HCl 500 ml @ 250 mls/hr ONCE ONCE IV Last administered on 02/16/25at 11:39; Start 02/16/25 at 12:00; Stop 02/16/25 at 13:59; Status DC Sodium Chloride 4 ml STK-MED ONCE IH Last administered on 02/16/25at 10:53; Start 02/16/25 at 10:44; Stop 02/16/25 at 10:44; Status DC Sodium Chloride 4 ml STK-MED ONCE IH Last administered on 02/16/25at 14:33; Start 02/16/25 at 14:26; Stop 02/16/25 at 14:26; Status DC Sodium Chloride 4 ml STK-MED ONCE IH Last administered on 02/16/25at 19:16; Start 02/16/25 at 18:32; Stop 02/16/25 at 18:32; Status DC Famotidine 20 mg DAILY PO Last administered on 03/02/25at 12:28; Start 02/17/25 at 09:00; Stop 03/18/25 at 08:59 Latanoprost 1 DROP FOR EACH EYE HS OP Last administered on 03/01/25at 21:10; Start 02/17/25 at 21:00; Stop 03/19/25 at 20:59 Home Med (Brimonidine-Timolol 0.2%/0.5% EYE DROPS) DAILY OP Last administered on 03/02/25at 12:31; Start 02/18/25 at 09:00; Stop 03/20/25 at 08:59 Albumin Human 250 ml @ 0 mls/hr AD IV; Start 02/18/25 at 10:30; Stop 02/20/25 at 09:03; Status DC Vancomycin HCl 1 each AD IV; Start 02/18/25 at 11:00; Stop 02/24/25 at 12:15; Status DC Vancomycin HCl 250 ml @ 125 mls/hr Q12H IV Last administered on 02/19/25at 11:20; Start 02/18/25 at 11:30; Stop 02/21/25 at 05:33; Status DC Potassium Chloride 20 meq BID PO Last administered on 03/02/25at 12:37; Start 02/19/25 at 10:30; Stop 03/21/25 at 10:29 Dexmedetomidine/ Sodium Chloride 400 mcg STK-MED ONCE IV Last administered on 02/20/25at 07:08; Start 02/20/25 at 07:00; Stop 02/20/25 at 07:00; Status DC Dexmedetomidine/ Sodium Chloride 400 mcg PROTOCOL IV Last administered on 02/22/25at 05:51; Start 02/20/25 at 07:30; Stop 02/22/25 at 15:01; Status DC Carvedilol 3.125 mg BID PO; Start 02/20/25 at 21:00; Stop 02/24/25 at 06:13; Status DC Spironolactone 25 mg DAILY PO Last administered on 03/02/25at 12:27; Start 02/20/25 at 09:00; Stop 03/22/25 at 08:59 Empaglifozin 10 mg DAILY PO Last administered on 02/22/25at 09:38; Start 02/20/25 at 09:00; Stop 02/22/25 at 15:01; Status DC Albumin Human 50 ml @ 0 mls/hr Q12H9 IV Last administered on 02/24/25at 08:15; Start 02/20/25 at 09:00; Stop 02/24/25 at 08:42; Status DC Furosemide 20 mg Q12H IV Last administered on 02/25/25at 21:27; Start 02/20/25 at 09:00; Stop 02/26/25 at 09:43; Status DC Pharmacy Profile Note 1 each ONCE MISC; Start 02/20/25 at 11:30; Stop 02/20/25 at 11:19; Status DC Piperacillin Sod/ Tazobactam Sod 50 ml @ 12.5 mls/hr Q8H IVPB Last administered on 02/24/25at 11:45; Start 02/20/25 at 11:30; Stop 02/24/25 at 18:10; Status DC Vancomycin HCl 250 ml @ 125 mls/hr Q24H IV Last administered on 02/23/25at 06:28; Start 02/21/25 at 06:00; Stop 02/24/25 at 05:57; Status DC Insulin Glargine 10 units DAILY SQ Last administered on 02/22/25at 11:54; Start 02/21/25 at 09:00; Stop 02/22/25 at 19:17; Status DC Calcium Gluconate 1 gm STK-MED ONCE .ROUTE; Start 02/21/25 at 08:34; Stop 02/21/25 at 08:34; Status DC Etomidate 20 mg STK-MED ONCE .ROUTE; Start 02/21/25 at 12:27; Stop 02/21/25 at 12:28; Status DC Fentanyl Citrate 100 mcg STK-MED ONCE .ROUTE; Start 02/21/25 at 12:30; Stop 02/21/25 at 12:30; Status DC Rocuronium [place] 50 mg STK-MED ONCE .ROUTE; Start 02/21/25 at 12:30; Stop 02/21/25 at 12:30; Status DC Lidocaine HCl 20 ml STK-MED ONCE .ROUTE; Start 02/21/25 at 12:31; Stop 02/21/25 at 12:31; Status DC Cefazolin Sodium 1 gm STK-MED ONCE .ROUTE; Start 02/21/25 at 12:31; Stop 02/21/25 at 12:32; Status DC Bupivacaine HCl 2.5 mg STK-MED ONCE IJ; Start 02/21/25 at 12:32; Stop 02/21/25 at 12:32; Status DC Propofol 200 mg STK-MED ONCE IV; Start 02/21/25 at 12:35; Stop 02/21/25 at 12:35; Status DC Lidocaine HCl 100 mg STK-MED ONCE .ROUTE; Start 02/21/25 at 12:46; Stop 02/21/25 at 12:46; Status DC Cefazolin Sodium 1 gm STK-MED ONCE .ROUTE; Start 02/21/25 at 12:51; Stop 02/21/25 at 12:51; Status DC Rocuronium [place] 50 mg STK-MED ONCE .ROUTE; Start 02/21/25 at 13:03; Stop 02/21/25 at 13:03; Status DC Cefazolin Sodium 2 gm STK-MED ONCE IVPB Last administered on 02/21/25at 12:53; Start 02/21/25 at 12:53; Stop 02/21/25 at 14:14; Status DC Lidocaine HCl 20 ml STK-MED ONCE INJ Last administered on 02/21/25at 12:18; Start 02/21/25 at 12:18; Stop 02/21/25 at 14:14; Status DC Bupivacaine HCl 75 mg STK-MED ONCE IJ Last administered on 02/21/25at 12:18; Start 02/21/25 at 12:18; Stop 02/21/25 at 14:14; Status DC Insulin Glargine 12 units DAILY SQ Last administered on 02/27/25at 17:30; Start 02/23/25 at 09:00; Stop 02/28/25 at 05:39; Status DC Dexmedetomidine/ Sodium Chloride 400 mcg PROTOCOL IV Last administered on 02/23/25at 00:17; Start 02/23/25 at 00:00; Stop 03/25/25 at 00:00 Midodrine 10 mg TID PO Last administered on 03/02/25at 17:28; Start 02/23/25 at 14:00; Stop 03/25/25 at 13:59 Prednisone 20 mg DAILY PO Last administered on 02/26/25at 09:50; Start 02/23/25 at 12:30; Stop 02/26/25 at 13:00; Status DC Vancomycin HCl 250 ml @ 125 mls/hr Q24H IV Last administered on 02/24/25at 06:26; Start 02/24/25 at 06:30; Stop 02/24/25 at 12:15; Status DC Carvedilol 3.125 mg BID PO Last administered on 03/02/25at 12:28; Start 02/24/25 at 09:00; Stop 03/26/25 at 08:59 Empaglifozin 10 mg DAILY PO Last administered on 02/24/25at 08:47; Start 02/24/25 at 09:00; Stop 02/24/25 at 13:01; Status DC Piperacillin Sod/ Tazobactam Sod 50 ml @ 12.5 mls/hr Q8H6 IVPB Last administered on 03/02/25at 17:28; Start 02/24/25 at 22:00; Stop 03/06/25 at 21:59 Furosemide 40 mg Q12H IV Last administered on 03/01/25at 09:28; Start 02/26/25 at 10:00; Stop 03/01/25 at 11:00; Status DC Insulin Glargine 15 units DAILY SQ Last administered on 03/02/25at 12:49; Start 02/28/25 at 09:00; Stop 03/30/25 at 08:59 Insulin Human Regular INSULIN SLIDING SCAL... ACHS SQ Last administered on 03/02/25at 12:49; Start 02/28/25 at 07:30; Stop 03/30/25 at 07:29 Furosemide 20 mg Q12H IV Last administered on 03/02/25at 12:27; Start 03/01/25 at 22:00; Stop 03/31/25 at 21:59 EUGENE ZARATE MD Mar 02, 2025 20:28
[2025-03-03] VITALS (8 sets, daily range): BP systolic 91–111; BP diastolic 52–59; PULSE 61–63; RESP 18; TEMP 97.8–98.5; O2SAT 97–98
[2025-03-03 03:40] LABS: IMMATURE GRANULOCYTE ABSOLUTE 0.10 K/uL (0-1); NUCLEATED RED BLOOD CELLS 0.0 % (0.0-0.19); PLATELET COUNT (AUTO) 422 K/uL (130-400); RED BLOOD CELL COUNT(AUTO) 3.52 MIL/uL (4.50-6.20); RED CELL DISTRIBUTION WIDTH 17.5 % (11.0-15.5); WHITE BLOOD COUNT (AUTO) 10.7 K/uL (4.8-10.8)
[2025-03-03 03:55] LABS: CREATININE 1.3 mg/dL (0.5-1.3); GLOMERULAR FILTR. RATE CALC 57.0 mL/min (>90); GLUCOSE,RANDOM 110.0 mg/dL (70-105); SODIUM SERUM 138.0 mmol/L (136-145); UREA NITROGEN, BLOOD 25.0 mg/dL (7-18)
--- NOTE | 2025-03-03 11:00 | PN ---
[facility] PROGRESS NOTE Date Patient Seen: Mar 03, 2025 Time of Visit: 10:59 Supervising Physician: Dr Willy Smith Primary Care Physician: KELLEY ENCINAS MD Outpatient Specialists: Inpatient Consults: BIS PROBLEM LIST: CAD, status post CABG x3 Left-sided hemothorax s/p thoracentesis on 02/26/2025 with 1100 cc blood drained Impella and a intra-aortic balloon pump support Type 2 diabetes with hyperglycemia Congested heart failure EF 20% Obstructive coronary artery disease Atherosclerosis Primary hypertension Morbid obesity; BMI 36 Cardiogenic shock; resolved INTERVAL HISTORY: Patient seen and evaluated, comfortably at bedside chair All labs and imaging have been reviewed. No acute events overnight. Patient on room air. Good saturations Tolerating PT Plan: Anticipate discharge to [facility] Continue diuresis Supplemental O2 if needed Cardiac rehab Lovenox subQ REVIEW OF SYSTEMS: 12 point ROS reviewed with patient. Pertinent positives mentioned above. Otherwise negative. PHYSICAL EXAM: GENERAL: Patient comfortable in bed, HEENT: EOMI, Sclera non icteric, moist mucosa NECK: Supple, no JVD, trachea midline LUNGS: Clear breath sounds bilaterally. No wheezes HEART: Regular rate and rhythm. Normal S1 and S2, without murmurs sternum wound looks clean, no bleeding or discharge. ABD: Abdomen soft, nontender. Bowel sounds present EXT: Edema and hyperemia to the right ankle have improved compared to yesterday NEURO: Awake alert and oriented Vital Signs (last 8hr) Date Time Temp Pulse Resp B/P (MAP) Pulse Ox O2 Delivery O2 Flow Rate FiO2 03/03/25 08:00 98 Room Air* 0 21 03/03/25 07:49 97.9 62 18 91/53 98 Room Air 03/03/25 03:25 97.9 62 18 92/52 97 Room Air LABS: Hematology Labs: Test 03/03/25 03:19 Range/Units White Blood Count 10.7 4.8-10.8 K/uL Red Blood Count 3.52 L 4.50-6.20 MIL/uL Hemoglobin 10.4 L 14.0-18.0 g/dL Hematocrit 31.9 L 42-54 % Mean Corpuscular Volume 90.6 79-99 fL Mean Corpuscular Hemoglobin 29.5 27.0-33.0 pg Mean Corpuscular Hemoglobin Concent 32.6 32.0-36.0 g/dL Red Cell Distribution Width 17.5 H 11.0-15.5 % Platelet Count 422 H 130-400 K/uL Mean Platelet Volume 10.2 7.5-10.5 fL Immature Granulocyte % (Auto) 0.9 0-1 % Neutrophils (%) (Auto) 61.1 40.0-77.0 % Lymphocytes (%) (Auto) 24.5 21.0-51.0 % Monocytes (%) (Auto) 10.1 3.0-13.0 % Eosinophils (%) (Auto) 2.8 0.0-8.0 % Basophils (%) (Auto) 0.6 0.0-5.0 % Neutrophils # (Auto) 6.5 1.8-7.7 K/uL Lymphocytes # (Auto) 2.6 1.0-4.8 K/uL Monocytes # (Auto) 1.1 H 0.1-1.0 K/uL Eosinophils # (Auto) 0.30 0.00-0.70 K/uL Basophils # (Auto) 0.06 0.00-0.20 K/uL Absolute Immature Granulocyte (auto 0.10 0-1 K/uL Nucleated Red Blood Cells 0.0 0.0-0.19 % Chemistry Labs: Test 03/03/25 06:16 03/03/25 03:19 Range/Units Whole Blood Glucose 114 H 70-110 MG/DL Sodium Level 138 136-145 mmol/L Potassium Level 3.8 3.5-5.1 mmol/L Chloride Level 101 101-111 mmol/L Carbon Dioxide Level 27 21-32 mmol/L Blood Urea Nitrogen 25 H 7-18 mg/dL Creatinine 1.3 0.5-1.3 mg/dL Glomerular Filtration Rate Calc 57 >90 mL/min Random Glucose 110 H 70-105 mg/dL Total Calcium 8.7 8.5-10.1 mg/dL B-Type Natriuretic Peptide 462 H 0-100 pg/mL DIAGNOSTICS / RADIOLOGY RESULTS: [ ] NEURO: Minimize central acting medications as possible. Maintain fall precautions, adequate lighting during the day PULMONARY: Supplemental 02 as needed. Maintain aspiration precautions at all times CARDIOVASCULAR: Follow hemodynamics. Vital signs per facility protocol GI & NUTRITION: Continue with nutritional support. Continue stool softeners and laxatives as needed. KIDNEYS & ELECTROLYTES: Strict monitoring of intake, output and overall fluid balance. Avoid nephrotoxic medications to the extent possible. Medications to be dosed according to renal function. Monitor electrolytes and replace as needed ENDOCRINE: Maintain blood glucose between 100-180 at all times. Hypoglycemia protocol in place INFECTIOUS DISEASE: Trend temperature, WBC and procalcitonin level Follow cultures, deescalate antibiotics as soon as possible. Panculture if new onset fever ONCOLOGY/HEMATOLOGY/COAGULATION: Monitor for s/s of bleeding Monitor hemoglobin, coagulation studies as needed SKIN: Pressure ulcer prevention per facility protocol Specialty mattress ORTHO/REHAB: Continue PT/OT Prophylaxis: Continue GI and DVT prophylaxis Code Status: Full Resuscitation Disposition: as per cardiovascular MAGGIE JARRELL PAC Mar 03, 2025 11:00
--- NOTE | 2025-03-03 14:46 | PN ---
[facility] PROGRESS NOTE Date of Service: Mar 03, 2025 Time of Service: 14:41 HISTORY OF PRESENT ILLNESS: This is a 74-year-old male,a Muslim by confucianist whith past medical history of diabetes, hyperlipidemia and IA/coronary artery disease with cardiac stent who presented to the Ed for complaints of midsternal chest pain that is non radiating associated with diaphoresis and this happened when patient was laying down in bed aroun 11:50 pm last night and decided to come to the ED for evaluation.Patient reports pain was persistent.As per patient he had a history of heart attack before and underwent a stent placement.Patient reports the only medication he is taking is Metformin.Patient states he is supposed to be on Aspirin but has stopped taking it.Patient reports he occasionally drinks beer and last drink was yesterday ,had 2 beers he said. Seen and examined patient in the ER awake,alert and coherent,appears comfortable.Patient denies fever,chills,cough,nausea,vomiting,palpitation and shortness of breath. Latest vital signs temperature 98.2, heart rate 75, blood pressure 124/70 saturation 97% on room air. Labs: CBC unremarkable. Chloride 99, BUN 21, random glucose 469 to 439 to 327. Troponin from -. ECG result revealed revealed sinus rhythm heart rate 85 with atrial premature complex anterolateral infarct age indeterminate. Second EKG result revealed sinus rhythm heart rate 73 with left anterior fascicular block. Probable anterolateral infarct age indeterminate. Abnormal T consider ischemia lateral leads.. Chest x-ray result revealed no acute cardiopulmonary process is evident. While in the ER patient received 1500 mL NS bolus, insulin 5 units IV, aspirin 325 mg p.o. and patient was started on heparin drip per [facility] protocol. SUBJECTIVE: 02/10/25: Patient was seen and evaluated in ED9. Patient was alert, awake and orientedX3. Patient reports that he doesn't have any chest pain today. Patient reports occasional shortness of breath during nights. Patient denies any shortness of breath, nausea, vomiting, palpitations and lightheadedness. Patient denies any abdominal pain, burning urination. Patient mentions that he only takes metformin 3-4 times per week and has stopped taking aspirin because it wasn't reconciled. Troponin from -. 2D ECHO was done, pending results. Patient is currently on Heparin drip 02/11/25: Patient was evaluated at the bedside this morning. No overnight event. He is AAO x3. patient reported that he does not have chest pain or shortness of breath. He is hemodynamically stable. The labs remarkable for potassium 3.3, magnesium 1.6, HbA1c 13.9, troponin [id number]. Left heart catheterization revealed severe triple-vessel disease. Echocardiogram revealed 25% ejection fraction with segmental akinesis. CT surgery was consulted who recommended CABG with Impella left ventricle assist. Family to decide about the procedure. He is currently on heparin drip, aspirin. Endocrinology on board. Rest of the plan as discussed below. 02/12/25: Patient was evaluated at the bedside this morning. No overnight event. He is AAO x3. patient reported that he does not have chest pain or shortness of breath. He is hemodynamically stable. Cardiology is on board and Dr. Blanton have suggested low-dose beta estela like metoprolol tartrate 12.5 mg b.i.d. for his heart failure. Dr Kaur still recommends CABG with 5.5 Impella LVAD and the patient agrees to it. We will continue Entresto, Aldactone, Jardiance, aspirin, Lasix as per CT surgeon recommendations. Today his potassium is 3.1 and we would like to be above 4 for CABG patients. So we will replace potassium 02/13/25: Patient was seen and evaluated in room 201. Patient reports feeling better. patient denies any chest pain, shortness of breath. He is continuing on Entresto, Aldactone, Jardiance, aspirin, Lasix as per CT surgeon recommendations.Patients Potassium today is 3.7, will continue replacing potassium. Patients was present along with the patient, she has a few question about the CABG procedure which she wanted to ask Dr. Alexis. 02/14/25. Patient was undergoing CABG procedure today in the morning. 02/15/25: Patient was seen and evaluated in room 213. Patient status post CABG day 1. Patient denies any fever, chills, shortness of breath. Patient complaints of pain along the incision. Patient is on IABP and Impella support. patient is on Vasopressin and Norepinephrine drip. Entresto, Aldactone, Jardiance were discontinued by Dr. Alexis. CT surgery are on the case and will follow their recommendations. 02/16/25: Patient was seen and evaluated in room 213. Patient status post CABG day 2. patient was asleep when we went bedside. Spoke with the nurse regarding overnights and she mentioned that patient was a bit confused in the night but later improved with sleep. Patient is continuing on Epinephrine drip. Patient was weaned off IABP and is currently only on Impella. Patient was started on Vancomycin and cefepime due to elevated WBC levels and findings suggestive of pneumonia on chest x-ray 02/17/25: Patient was seen and evaluated in room 213. Patient status post CABG day 2. patient was asleep when we went bedside. Spoke with the nurse regarding overnights and he mentioned that patient was started on lasix protocol. Patient is continuing on Epinephrine drip and Impella. Critical care are on the case and will follow their recommendations. 02/18/25: Patient was seen and examined at bedside. He is status post CABG day 3. He continues on Lasix drip 2.5, With Impella P3 support and epinephrine drip. His total output in the past 24 hours has been optimal, 4740 versus 2165 input. No acute events overnight. We will follow CTS recommendations regarding further weaning off Impella. 02/19/25: Patient was seen and evaluated in room 210. He is status post CABG day 4. He continues on Lasix drip 2.5, With Impella P3 support and epinephrine drip. His total output in the past 24 hours has been 2905 versus 4072. No acute overnight. Patient is scheduled for possible impella removal tomorrow. 02/20/25: Patient was seen and evaluated in room 210. He is status post CABG day 5. He continues on Lasix drip 2.5, Impella setting have been maintained at P3 settings. He is continuing on epinephrine drip. Cefepime was discontinued yesterday because overnight the patient was confused, agitated and combative suspecting the cause of his confusion and started on Zosyn. His total output in the past 24 hours has been 2675 versus 2206. Patient is scheduled for possible impella removal tomorrow. 02/21/25: Patient was seen and evaluated in room 210. He is status post CABG day 6. Patient is continuing on Epinephrine drip. patient was started on Lasix 20mg IV. Patient is scheduled for impella removal today. Patient is continuing on Zosyn. His total output in the past 24 hours has been 6700 versus 1785. 02/22/25: Patient was seen and evaluated in room 210. He is status post CABG day 7. Patient reports feeling better and he doesn't have any active complaints, Impella was removed yesterday and patient is continuing on Epinephrine drip. patient denies any shortness of breath, fever, chills and chest pain. Patient is continuing on Zosyn. His total output in the past 24 hours has been 3650 versus 1775. 02/23/25: Patient was seen and evaluated in room 210. He is status post CABG day 8. Patient complains of pain in left lower extremity, Patient denies any erythema, chest pain. Patient denies any fever, chills, shortness of breath, and dizziness. Ankle X-ray, US venous Doppler was ordered, will follow the results. Patient is continuing on lasix 20mg. His total output in the past 24 hours has been 4900 versus 1829. 02/24/25: Patient was seen and evaluated in room 210. He is status post CABG day 9. Patient is alert, awake, oriented X3. Patient reports that his pain in the left lower leg is getting better. Venous US ordered yesterday came back unrem arkable. Patient denies any chest pain, shortness of breath. Epinephrine drip was discontinued. Patient was started back on Coreg 3.125mg, Jardiance 10mg under cardiology recommendations. His total output in the past 24 hours has been 3300 versus 1560. 02/25/25: Patient was seen and evaluated in room 233 along with his . He is status post CABG day 10. Patient's mentioned that the patient passed blood clots in urine, Patient denies any burning micturition or difficulty urinating. Patient is alert, awake, oriented X3. Patient denies any pain in left lower extremity, Patient denies any chest pain, shortness of breath. Jardiance was stopped because of elevated bicarb. His total output in the past 24 hours has been 2300 versus 690. 02.26.2024: Patient is seen and evaluated in room 223. His current blood pressure is 105/57. He is on Aspirin, Lasix, Coreg, Jardiance, Aldactone, and Lipitor. Case management is coordinating cardiac rehabilitation and potential SNF placement tomorrow. Pulmonology advised thoracentesis for left pleural effusion, the patient is saturating above 95%. The patient reports no dyspnea or orthopnea. He is receiving 12 units of Lantus and is off the insulin drip. He is on Zosyn and Vancomycin, and his WBC is 15.4 today. Bilirubin is trending down to 1.3 02.27.2025: Patient is seen and evaluated in room 223. He has no active complaints, and the nurse reports no overnight events. Chest X-ray demonstrates improvement from yesterday following thoracentesis. Case management is arranging placement to a senior living facility, pending approval. From the cardiology perspective, the patient is cleared and approved for discharge to rehab. 02.28.2025: Patient is seen and evaluated in room 223. Cardiology left a note indicating possible AICD or LifeVest placement. Patient denies chest pain, shortness of breath, palpitations, and reports no lower-extremity edema. WBC is 14.7 today and trending down. Hemoglobin remains stable at 10.8. Chloride is 100 and BUN is 26. Blood sugars are 150 . Lantus has been increased from 12 units to 15 units. Pending referral to cardiac rehab. 03.01.2025: Patient is seen and evaluated in Room No. 223. The patient appears fluid overloaded. Laboratory results are as follows: WBC 15.5, Hemoglobin 12.5, Platelet count 540, Sodium 135, Chloride 96, BUN 25, Creatinine 1.5. Per Dr. Alexis, ventricular function will be assessed to determine candidacy for an AICD. The patient was previously on Lasix 40 mg, but due to rising BUN and creatinine, the dose has been reduced to Lasix 20 mg twice daily for volume management. 03.02.2025: Patient is seen and evaluated in room no. 223. Patient's WBC is 11.3 and trending down. Platelet count remains elevated at 446. Creatinine improved to 1.2 from 1.5 yesterday. BNP is 363, and we will monitor closely for any signs of fluid overload. The patient is currently wearing a LifeVest and will continue it for 8 weeks as per cardiology. We will transition Lasix from IV to oral formulation. Pending Cardiac rehabilitation approval. 03.03.2025: Patient is seen and evaluated in room number 223. His blood pressure today is 91/53. White blood cell count is 10.7 and trending down. Hemoglobin remains stable at 10.4. His BUN is 25. BNP is elevated at 462, so to further assess for possible fluid overload, a chest X-ray has been ordered and the report is currently pending. We will continue to monitor for any signs of fluid overload, and SNF placement is still pending. REVIEW OF SYSTEMS CONSTITUTIONAL: Denies fevers, chills, or night sweats. No unintentional weight loss reported. NEUROLOGICAL: Denies headache, amaurosis fugax, motor weakness, sensory deficit, vertigo/spinning sensation, gait abnormalities, or tremors. ENT: No hearing loss, otalgia, otorrhea, rhinitis, rhinorrhea, hoarseness, or sore throat. CARDIOVASCULAR: Denies chest pain, dyspnea on exertion, orthopnea, paroxysmal nocturnal dyspnea, palpitations, life-threatening arrhythmias, claudication. PULMONARY: Denies any cough, phlegm/sputum, hemoptysis, pleuritic chest pain. GASTROINTESTINAL: Denies any type of dysphagia to either liquids or solids. Denies nausea, vomiting, pyrosis, early satiety, abdominal pain, diarrhea, constipation, or changes in stool consistency or caliber. Denies coffee-ground emesis, hematemesis, hematochezia, or melanotic stools. GENITOURINARY: Denies frequency, urgency, nocturia, hematuria or incontinence (Storage/Irritative symptoms.) Low urinary stream, straining to void, urinary intermittency or hesitancy, splitting of the voiding stream, terminal dribbling. PHYSICAL EXAM GENERAL APPEARANCE: The patient is awake, alert, and oriented, in no acute cardiopulmonary distress. NEUROLOGICAL: Motor is 5/5 in bilateral upper and lower extremities proximal to distal. No sensory deficits. HEENT: Face is symmetric. Pupils are equal and reactive. Extraocular movements are intact. NECK: Supple. No thyromegaly. No submental, submandibular, pre-/postauricular, occipital or supraclavicular lymphadenopathy. CHEST: Normal chest expansion. No Telemetry. LUNGS: Absence of any rales, rhonchi or any wheezing. CARDIOVASCULAR: Regular. S1 and S2 normal. No appreciable rubs, murmurs or gallops. ABDOMEN: Soft, nontender, and nondistended. There is no rebound, voluntary g uarding, or rigidity. : Deferred. No De Jesus. EXTREMITIES: Non-edematous and not cyanotic. No clubbing. Good capillary refill. SKIN: sternal scar - post CABG Vital Signs (last 8hr) Date Time Temp Pulse Resp B/P (MAP) Pulse Ox O2 Delivery O2 Flow Rate FiO2 03/03/25 11:45 98.2 63 18 95/52 95 Room Air 03/03/25 08:00 98 Room Air* 0 21 03/03/25 07:49 97.9 62 18 91/53 98 Room Air LABS: Laboratory: Test 03/03/25 12:14 03/03/25 03:19 Range/Units Whole Blood Glucose 188 #H 70-110 MG/DL White Blood Count 10.7 4.8-10.8 K/uL Red Blood Count 3.52 L 4.50-6.20 MIL/uL Hemoglobin 10.4 L 14.0-18.0 g/dL Hematocrit 31.9 L 42-54 % Mean Corpuscular Volume 90.6 79-99 fL Mean Corpuscular Hemoglobin 29.5 27.0-33.0 pg Mean Corpuscular Hemoglobin Concent 32.6 32.0-36.0 g/dL Red Cell Distribution Width 17.5 H 11.0-15.5 % Platelet Count 422 H 130-400 K/uL Mean Platelet Volume 10.2 7.5-10.5 fL Immature Granulocyte % (Auto) 0.9 0-1 % Neutrophils (%) (Auto) 61.1 40.0-77.0 % Lymphocytes (%) (Auto) 24.5 21.0-51.0 % Monocytes (%) (Auto) 10.1 3.0-13.0 % Eosinophils (%) (Auto) 2.8 0.0-8.0 % Basophils (%) (Auto) 0.6 0.0-5.0 % Neutrophils # (Auto) 6.5 1.8-7.7 K/uL Lymphocytes # (Auto) 2.6 1.0-4.8 K/uL Monocytes # (Auto) 1.1 H 0.1-1.0 K/uL Eosinophils # (Auto) 0.30 0.00-0.70 K/uL Basophils # (Auto) 0.06 0.00-0.20 K/uL Absolute Immature Granulocyte (auto 0.10 0-1 K/uL Nucleated Red Blood Cells 0.0 0.0-0.19 % Sodium Level 138 136-145 mmol/L Potassium Level 3.8 3.5-5.1 mmol/L Chloride Level 101 101-111 mmol/L Carbon Dioxide Level 27 21-32 mmol/L Blood Urea Nitrogen 25 H 7-18 mg/dL Creatinine 1.3 0.5-1.3 mg/dL Glomerular Filtration Rate Calc 57 >90 mL/min Random Glucose 110 H 70-105 mg/dL Total Calcium 8.7 8.5-10.1 mg/dL B-Type Natriuretic Peptide 462 H 0-100 pg/mL Current Medications Medications (Trade) Dose Ordered Sig/Carol Route PRN Reason Start Time Stop Time Status Last Admin Dose Admin Acetaminophen (TYLenol 325MG TAB) 650 mg Q4H PRN PO MILD PAIN (1-3) 02/10/25 05:00 02/14/25 10:05 DC Acetaminophen (TYLenol 325MG TAB) 650 mg Q4H PRN PO Temp >38.3C(AFTER EXTUBATION) 02/14/25 10:00 03/16/25 09:59 Acetaminophen (TYLenol 325MG TAB) 650 mg Q6H PRN PO TEMPERATURE GREATER THAN 101.5 02/10/25 05:00 02/14/25 10:17 DC 02/12/25 17:13 650 MG Acetaminophen (TYLenol 325MG TAB) 650 mg Q6H PRN PO MILD PAIN (1-3) 02/14/25 10:00 03/16/25 09:59 Acetaminophen (TYLenol 650MG SUPPOSITORY) 650 mg Q4H PRN RC Temp >38.3C WHILE INTUBATED 02/14/25 10:00 02/23/25 11:52 DC Acetaminophen (acetaMINOPHEN 1,000MG/100ML) 1,000 mg Q6H6 IV 02/14/25 14:00 02/15/25 13:59 DC 02/15/25 12:14 1,000 MG Albumin Human 50 ml @ 0 mls/hr Q12H9 IV 02/20/25 09:00 02/24/25 08:42 DC 02/24/25 08:15 100 MLS/HR Albumin Human 250 ml @ 0 mls/hr AD IV 02/14/25 15:30 02/18/25 10:40 DC 02/18/25 10:27 250 MLS/HR Albumin Human 250 ml @ 0 mls/hr AD IV 02/18/25 10:30 02/20/25 09:03 DC Albumin Human 250 ml @ 0 mls/hr AD PRN IV IF HEMODYNAMICALLY UNSTABLE 02/14/25 10:00 02/14/25 14:42 DC 02/14/25 14:42 500 MLS/HR Aminocaproic Acid 49093 mg/Sodium Chloride 310 ml @ 25 mls/hr AD IV 02/14/25 10:00 02/14/25 10:19 DC Aminocaproic Acid 25816 mg/Sodium Chloride 480 ml @ 0 mls/hr AD PRN IV BLEEDING CONTROL 02/14/25 06:30 02/23/25 11:52 DC Aminocaproic Acid 83278 mg/Sodium Chloride 480 ml @ 0 mls/hr AD PRN IV BLEEDING CONTROL 02/14/25 07:00 02/14/25 06:51 DC Aspirin (Aspirin 325mg Tab) 325 mg ONCE PO 02/10/25 14:30 02/10/25 17:22 DC 02/10/25 14:32 325 MG Aspirin (Aspirin 81mg Ec Tab) 81 mg DAILY PO 02/10/25 09:00 03/12/25 08:59 03/03/25 10:06 81 MG Atorvastatin Calcium (LIPItor 40MG) 40 mg HS PO 02/14/25 21:00 03/16/25 20:59 03/02/25 21:31 40 MG Calcium Gluconate 1 gm/Sodium Chloride 60 ml @ 200 mls/hr AD PRN IV HYPOCALCEMIA 02/14/25 10:00 03/16/25 09:59 02/21/25 08:36 200 MLS/HR Carvedilol (Coreg 3.125MG) 3.125 mg BID PO 02/20/25 21:00 02/24/25 06:13 DC Carvedilol (Coreg 3.125MG) 3.125 mg BID PO 02/24/25 09:00 03/26/25 08:59 03/02/25 21:31 3.125 MG Cefazolin Sodium (Ancef) 2 gm ONCALL IVP 02/13/25 20:00 02/14/25 18:51 DC 02/14/25 08:50 2 GM Cefazolin Sodium (Ancef) 2 gm Q8H IVPB 02/14/25 15:00 02/15/25 07:01 DC 02/15/25 06:25 2 GM Cefepime HCl (MAXipime 1 GM vial) 1 gm Q12H IVPB 02/16/25 10:30 02/20/25 08:16 DC 02/19/25 22:54 1 GM Clopidogrel Bisulfate (plaVIX 300MG TAB) 600 mg ONCE PO 02/10/25 14:00 02/10/25 17:22 DC 02/10/25 14:19 600 MG Clopidogrel Bisulfate (plaVIX 75MG) 75 mg DAILY PO 02/11/25 09:00 02/11/25 07:28 DC Dexmedetomidine/ Sodium Chloride (PRECEdex 400MCG/ 100ML-NS) 400 mcg PROTOCOL IV 02/14/25 10:00 02/15/25 09:59 DC Dexmedetomidine/ Sodium Chloride (PRECEdex 400MCG/ 100ML-NS) 400 mcg PROTOCOL IV 02/20/25 07:30 02/22/25 15:01 DC 02/22/25 05:51 400 MCG Dexmedetomidine/ Sodium Chloride (PRECEdex 400MCG/ 100ML-NS) 400 mcg PROTOCOL IV 02/23/25 00:00 03/25/25 00:00 02/23/25 00:17 400 MCG Dextrose (D50w) 50 ml AD PRN IV HYPOGLYCEMIA PROTOCOL 02/10/25 05:00 02/14/25 10:17 DC Dextrose (D50w) 50 ml AD PRN IV HYPOGLYCEMIA PROTOCOL 02/14/25 10:00 03/16/25 09:59 Docusate Sodium (COLace 100MG CAP) 100 mg BID PO 02/14/25 21:00 03/16/25 20:59 03/03/25 10:07 100 MG Empaglifozin (Jardiance 10mg) 10 mg DAILY PO 02/10/25 14:30 02/14/25 09:59 DC 02/13/25 10:52 10 MG Empaglifozin (Jardiance 10mg) 10 mg DAILY PO 02/20/25 09:00 02/22/25 15:01 DC 02/22/25 09:38 10 MG Empaglifozin (Jardiance 10mg) 10 mg DAILY PO 02/24/25 09:00 02/24/25 13:01 DC 02/24/25 08:47 10 MG Enoxaparin Sodium (Lovenox) 30 mg DAILY SQ 02/17/25 09:00 03/19/25 08:59 03/03/25 10:12 30 MG Epinephrine HCl 10 mg/Sodium Chloride 250 ml @ 0 mls/hr AD PRN IV TITRATE 02/14/25 06:30 03/16/25 06:29 02/20/25 17:32 2.9 MLS/HR Epinephrine HCl 10 mg/Sodium Chloride 250 ml @ 0 mls/hr AD PRN IV TITRATE 02/14/25 07:00 02/14/25 06:51 DC Epinephrine HCl 10 mg/Sodium Chloride 250 ml @ 0 mls/hr AD PRN IV POST-OP CARDIOVASCULAR ORDERS 02/14/25 10:00 02/14/25 10:14 DC Famotidine (Pepcid 20mg Vial) 20 mg BID IV 02/14/25 21:00 02/16/25 07:58 DC 02/15/25 20:15 20 MG Famotidine (Pepcid 20mg Tab) 20 mg BID PO 02/16/25 09:00 02/17/25 07:09 DC 02/16/25 20:03 20 MG Famotidine (Pepcid 20mg Tab) 20 mg DAILY PO 02/10/25 09:00 02/14/25 09:59 DC 02/13/25 10:53 20 MG Famotidine (Pepcid 20mg Tab) 20 mg DAILY PO 02/17/25 09:00 03/18/25 08:59 03/03/25 10:07 20 MG Furosemide (LASix 20MG TAB) 20 mg DAILY PO 02/11/25 09:00 02/14/25 09:59 DC 02/13/25 10:52 20 MG Furosemide (LASix 20MG TAB) 20 mg Q12H PO 02/16/25 09:00 02/16/25 10:21 DC 02/16/25 08:19 20 MG Furosemide (LASix 20MG VIAL) 20 mg ONCE IV 02/10/25 17:00 02/10/25 21:00 DC 02/10/25 17:00 20 MG Furosemide (LASix 20MG VIAL) 20 mg ONCE IV 02/11/25 09:00 02/11/25 07:43 DC Furosemide (LASix 20MG VIAL) 20 mg Q12H IV 02/15/25 09:00 02/16/25 08:59 DC 02/15/25 20:16 20 MG Furosemide (LASix 20MG VIAL) 20 mg Q12H IV 02/20/25 09:00 02/26/25 09:43 DC 02/25/25 21:27 20 MG Furosemide (LASix 20MG VIAL) 20 mg Q12H IV 03/01/25 22:00 03/31/25 21:59 03/03/25 10:07 20 MG Furosemide (LASix 40MG VIAL) 40 mg Q12H IV 02/26/25 10:00 03/01/25 11:00 DC 03/01/25 09:28 40 MG Furosemide 100 mg/ Sodium Chloride 100 ml @ 0 mls/hr PROTOCOL IV 02/16/25 10:30 02/20/25 09:01 DC 02/19/25 11:35 2.5 MLS/HR Glucagon (Glucagon 1mg Kit) 1 mg AD PRN IM HYPOGLYCEMIA PROTOCOL 02/10/25 05:00 02/14/25 10:17 DC Glucagon (Glucagon 1mg Kit) 1 mg AD PRN IM HYPOGLYCEMIA PROTOCOL 02/14/25 10:00 03/16/25 09:59 Heparin Sodium (Porcine) (HEParin 5,000 UNIT VIAL) *calculation based on ACTUAL B... AD PRN IV HEPARIN PROTOCOL 02/12/25 21:00 02/14/25 09:59 DC 02/12/25 20:16 4,000 UNIT Heparin Sodium/ Dextrose 250 ml @ 0 mls/hr PROTOCOL IV 02/10/25 03:00 02/10/25 17:22 DC 02/10/25 03:00 16.2 MLS/HR Heparin Sodium/ Dextrose 250 ml @ 0 mls/hr Q6H IV 02/11/25 06:30 02/14/25 09:59 DC 02/13/25 13:01 9 MLS/HR Home Med (Home Medication) (Brimonidine-Timolol 0.2%/0.5% EYE DROPS) DAILY OP 02/18/25 09:00 03/20/25 08:59 03/03/25 10:06 1 EACH Insulin Glargine (LANtus 100 UNITS/ML 10 ML VIAL) 10 units DAILY SQ 02/21/25 09:00 02/22/25 19:17 DC 02/22/25 11:54 10 UNITS Insulin Glargine (LANtus 100 UNITS/ML 10 ML VIAL) 12 units DAILY 02/23/25 09:00 02/28/25 05:39 DC 02/27/25 17:30 12 UNITS Insulin Glargine (LANtus 100 UNITS/ML 10 ML VIAL) 12 units DAILY08 02/13/25 08:00 02/14/25 09:59 DC 02/13/25 10:51 12 UNITS Insulin Glargine (LANtus 100 UNITS/ML 10 ML VIAL) 15 units DAILY 02/28/25 09:00 03/30/25 08:59 03/03/25 10:26 15 UNITS Insulin Glargine (LANtus 100 UNITS/ML 10 ML [facility]) [facility] 02/11/[facility] 08:00 02/13/25 05:24 DC 02/12/25 08:54 15 UNITS Insulin Human Regular (humuLIN R 100 UNIT/ML 3ML) 3 unit TIDAC 02/12/25 07:30 02/14/25 09:59 DC 02/12/25 16:31 3 UNIT Insulin Human Regular (humuLIN R 100 UNIT/ML 3ML) INSULIN SLIDING SCAL... ACHS SQ 02/16/25 11:30 02/28/25 05:39 DC 02/27/25 21:34 2 UNIT Insulin Human Regular (humuLIN R 100 UNIT/ML 3ML) INSULIN SLIDING SCAL... ACHS SQ 02/28/25 07:30 03/30/25 07:29 03/03/25 12:20 2 UNIT Insulin Human Regular (humuLIN R 100 UNIT/ML 3ML) INSULIN SLIDING SCAL... Q4H SQ 02/10/25 05:00 02/10/25 11:10 DC 02/10/25 09:15 6 UNIT Insulin Human Regular (humuLIN R 100 UNIT/ML 3ML) INSULIN SLIDING SCAL... Q6H6 02/10/25 12:00 02/14/25 09:59 DC 02/11/25 17:29 2 UNIT Insulin Human Regular 100 unit/ Sodium Chloride 100 ml @ 0 mls/hr AD IV 02/14/25 10:00 02/16/25 09:59 DC 02/15/25 06:30 3 MLS/HR Lactulose (Constulose 20gm/ 30ml Udcup) 20 gm BID PRN PO CONSTIPATION 02/14/25 10:00 03/16/25 09:59 02/28/25 15:56 20 GM Latanoprost (Xalatan) 1 DROP FOR EACH EYE HS OP 02/17/25 21:00 03/19/25 20:59 03/02/25 22:06 1 DROP Magnesium Hydroxide (Milk Of Magnesium 30ml) 30 ml DAILY PRN PO CONSTIPATION 02/14/25 10:00 03/16/25 09:59 Magnesium Sulfate 50 ml @ 12.5 mls/hr AD PRN IV MAG LEVEL LESS THAN 2.0 02/14/25 10:00 03/16/25 09:59 02/24/25 08:17 12.5 MLS/HR Magnesium Sulfate 50 ml @ 0 mls/hr PROTOCOL PRN IV OTHER [SEE ORDER COMMENTS] 02/10/25 05:00 02/14/25 10:17 DC 02/12/25 07:13 25 MLS/HR Metoprolol Tartrate (loprESSOR) 12.5 mg BID PO 02/12/25 09:00 02/14/25 09:59 DC 02/14/25 06:44 12.5 MG Metoprolol Tartrate (loprESSOR) 12.5 mg BID PO 02/16/25 09:00 02/20/25 09:01 DC Midodrine (PROAMatine 5 MG TABLET) 10 mg TID PO 02/23/25 14:00 03/25/25 13:59 03/03/25 10:12 10 MG Morphine Sulfate (morPHINE 2MG SYG) 0.5 mg Q2H PRN IV MODERATE PAIN (4-6) IF NPO 02/14/25 10:00 02/15/25 09:59 DC Morphine Sulfate (morPHINE 2MG SYG) 1 mg Q2H PRN IV SEVERE PAIN (7-10) IF NPO 02/14/25 10:30 02/19/25 13:29 DC 02/14/25 14:23 1 MG Nitroglycerin (Nitrostat) 0.4 mg PROTOCOL PRN SL CHEST PAIN 02/10/25 05:00 02/14/25 09:59 DC Nitroglycerin/ Dextrose 0 ml @ 0 mls/hr AD IV 02/14/25 10:00 02/17/25 09:59 DC Norepinephrine Bitartrate 250 ml @ 0 mls/hr AD PRN IV TITRATE 02/14/25 06:30 03/16/25 06:29 02/17/25 01:06 1.9 MLS/HR Norepinephrine Bitartrate 250 ml @ 0 mls/hr AD PRN IV TITRATE 02/14/25 07:00 02/14/25 06:51 DC Norepinephrine Bitartrate 8 mg/ Dextrose 250 ml @ 0 mls/hr AD PRN IV POST-OP CARDIOVASCULAR ORDERS 02/14/25 10:00 02/14/25 10:14 DC Ondansetron HCl (zoFRAN 4MG INJ) 4 mg Q6H PRN IV NAUSEA/VOMITING 02/10/25 05:00 02/14/25 10:17 DC Ondansetron HCl (zoFRAN 4MG INJ) 4 mg Q6H PRN IV NAUSEA/VOMITING 02/14/25 10:00 03/16/25 09:59 Pharmacy Profile Note (Pharmacy Communication) 1 each ONCE MISC 02/14/25 18:00 02/14/25 18:27 DC Pharmacy Profile Note (Pharmacy Communication) 1 each ONCE MISC 02/20/25 11:30 02/20/25 11:19 DC Piperacillin Sod/ Tazobactam Sod 50 ml @ 12.5 mls/hr Q8H IVPB 02/20/25 11:30 02/24/25 18:10 DC 02/24/25 11:45 12.5 MLS/HR Piperacillin Sod/ Tazobactam Sod 50 ml @ 12.5 mls/hr Q8H6 IVPB 02/24/25 22:00 03/06/25 21:59 03/03/25 06:36 12.5 MLS/HR Potassium Phosphate 250 ml @ 42 mls/hr AD PRN IV LOW PHOS LEVEL 02/14/25 10:00 03/16/25 09:59 Potassium Chloride 100 ml @ 100 mls/hr AD PRN IV POTASSIUM PROTOCOL 02/10/25 05:00 02/15/25 06:27 DC 02/15/25 05:43 100 MLS/HR Potassium Chloride 100 ml @ 100 mls/hr AD PRN IV HYPOKALEMIA 02/14/25 10:00 03/16/25 09:59 02/21/25 16:43 100 MLS/HR Potassium Chloride (K-Dur/Klor-Con 20meq) 20 meq AD PRN PO POTASSIUM PROTOCOL 02/10/25 05:00 03/12/25 04:59 02/18/25 20:18 20 MEQ Potassium Chloride (K-Dur/Klor-Con 20meq) 20 meq BID PO 02/19/25 10:30 03/21/25 10:29 03/03/25 10:06 20 MEQ Potassium Chloride (KCl 10% Elixir 20meq/15ml) 20 meq AD PRN PO POTASSIUM PROTOCOL 02/10/25 05:00 03/12/25 04:59 02/25/25 09:30 20 MEQ Prednisone (deltaSONE/ oraSONE 20MG TAB) 20 mg DAILY PO 02/23/25 12:30 02/26/25 13:00 DC 02/26/25 09:50 20 MG Propofol 100 ml @ 0 mls/hr AD PRN IV SEDATION 02/14/25 10:00 02/18/25 09:59 DC Sacubitril/ Valsartan (Entresto 24 Mg-26 Mg Tablet) 0.5 each BID PO 02/10/25 21:00 02/14/25 09:59 DC 02/13/25 21:11 0.5 EACH Sodium Bicarbonate 25 meq/Dextrose 1,025 ml @ 0 mls/hr Q0M IV 02/14/25 18:00 03/16/25 17:59 02/18/25 13:03 9.9 MLS/HR Sodium Bicarbonate (Sodium Bicarb 50meq 50ml Vial) 50 meq AD PRN IV OTHER[SEE DOSING INSTRUCTIONS] 02/14/25 10:00 02/17/25 09:59 DC 02/16/25 15:25 50 MEQ Sodium Chloride 500 ml @ 0 mls/hr AD IV 02/14/25 10:00 03/16/25 09:59 Sodium Chloride 1,000 ml @ 10 mls/hr ONCE IV 02/14/25 10:00 02/15/25 09:59 DC Sodium Chloride 1,000 ml @ 100 mls/hr Q10H IV 02/10/25 05:00 02/10/25 17:22 DC 02/10/25 14:20 100 MLS/HR Sodium Chloride (NS Flush 10ml) 10 ml Q8H PRN IVP IV LINE FLUSH 02/14/25 10:00 03/16/25 09:59 Spironolactone (Aldactone 25mg) 25 mg DAILY PO 02/10/25 14:30 02/14/25 09:59 DC 02/13/25 10:52 25 MG Spironolactone (Aldactone 25mg) 25 mg DAILY PO 02/20/25 09:00 03/22/25 08:59 03/03/25 10:07 25 MG Tramadol HCl (UltRAM) 25 mg Q6H PRN PO MODERATE PAIN (4-6) 02/14/25 10:00 02/19/25 09:59 DC Tramadol HCl (UltRAM) 50 mg Q6H PRN PO SEVERE PAIN (7-10) 02/14/25 10:00 02/19/25 09:59 DC Vancomycin HCl 250 ml @ 125 mls/hr Q12H IV 02/18/25 11:30 02/21/25 05:33 DC 02/19/25 11:20 125 MLS/HR Vancomycin HCl 250 ml @ 125 mls/hr Q24H IV 02/21/25 06:00 02/24/25 05:57 DC 02/23/25 06:28 125 MLS/HR Vancomycin HCl 250 ml @ 125 mls/hr Q24H IV 02/24/25 06:30 02/24/25 12:15 DC 02/24/25 06:26 125 MLS/HR Vancomycin HCl (Vancomycin Protocol) 1 each AD IV 02/18/25 11:00 02/24/25 12:15 DC Vasopressin 40 units/Sodium Chloride 40 ml @ 0 mls/hr PROTOCOL IV 02/14/25 13:00 03/16/25 12:59 02/14/25 22:11 1.8 MLS/HR DIAGNOSTICS / RADIOLOGY: ASSESSMENT: Chest pain rule out ACS: NSTEMI POA Suspected pneumonia findings on Chest X-ray Possible metabolic encephalopathy Hyperglycemia secondary to uncontrolled diabetes POA Hyperlipidemia POA Medication noncompliance, POA Obesity POA IA/Coronary artery disease with cardiac stent POA PLAN: Pending SNF Approval NSTEMI POA: * EKG was done which revealed sinus rhythm heart rate 85 with atrial premature complex anterolateral infarct age indeterminate. Second EKG result revealed sinus rhythm heart rate 73 with left anterior fascicular block. Probable anterolateral infarct age indeterminate. Abnormal T consider ischemia lateral leads. * PERC score was one, Wells score was zero. Very low suspicion for Pulmonary Embolism. * Chest X - ray on 02.25.2025 - Persistent small left pleural effusion with left mid and lower zone airspace opacities, significantly unchanged from prior study. * Thoracentesis done today - removed 1.1 lit of fluid by Dr. Louie and the patient tolerated the procedure well * Chest x-ray done on 02/17/25 show, small stable left pleural effusion with adjacent lung atelectasis. follow up x-ray from 02/22/25 show Cardiomegaly with median sternotomy with cardiac revascularization procedure, there is suggestion of a moderate left-sided pleural effusion. * 2-D ECHO on 02/19/25 show LVEF of 25-30% with segmental akinesis (apical, apic al lateral, anteroapical), LDL 89, BNP 488 * Troponin trends 21>[id number] * Left heart catheterization revealed severe three-vessel CAD with occluded mid LAD, 90% proximal left circumflex, 95% distal RCA, and 90% ostial PDA. * As per CT surgeon recommendations Entresto 0.5 each, was held. 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 * On aspirin 81 mg p.o. * Patient is on lasix 20mg IV. * Impella removed * Epinpehrine drip was discontinued and patient was started on Coreg 31.125, * Jardiance 10mg was held due to elevated bicarb. * lifevest as per cardiology * BNP - 462, so to further assess for possible fluid overload, a chest X-ray has been ordered and the report is currently pending. Suspected pneumonia findings on Chest X-ray * Chest x-ray done on 02/16/25 show diffuse airspace disease of the left lung, predominantly involving the left lower zone, could be due to an infection or atelectasis. Questionable left pleural effusion. * Chest x-ray done on 02/17/25 show, small stable left pleural effusion with adjacent lung atelectasis. follow up x-ray from 02/19/25 show no interval change. * Patient on Zosyn- Started on 02/20/25 * WBC count on (03/03/25) - 10.7 * Will monitor with daily labs. Possible metabolic encephalopathy * Chest x-ray done on 02/17/25 show, small stable left pleural effusion with adjacent lung atelectasis. * Patient was started on Vancomycin and cefepime due to elevated WBC levels and findings suggestive of pneumonia on chest x-ray * Cefepime was discontinued on 02/20/25 because the patient was confused, agitated and combative suspecting the cause of his confusion and was started on Zosyn. * Will monitor with daily labs Hyperglycemia secondary to uncontrolled diabetes POA: * HbA1c 13.9 * Following the Endocrinology recommendations. He is on Lantus 15 units, low- dose sliding scale insulin * Jardiance 10mg was held due to elevated bicarb. * We will monitor blood glucose. Hypokalemia Hypomagnesemia - resolved * Potassium 3.8 - 03.02.2025 * Magnesium 2 (02.27.2025) * We will replete the electrolytes and monitor. * Keep potassium above 4 and magnesium above 2. * We will start Slow-Mag oral t.i.d. once and will keep monitoring magnesium levels. Supportive measures * GI prophylaxis with Famotidine * DVT prophylaxis with SCD's ATTESTATION BY PHYSICIAN I have seen and examined the patient. I reviewed the documentation, medical decision making, and treatment plan as noted by the resident provider above. I agree with the findings and plan of care. Juanjo Cleveland MD, LAKSHMI MD Mar 03, 2025 14:46
--- NOTE | 2025-03-03 15:35 | PN ---
INFECTIOUS DISEASE PROGRESS NOTE Date of Service: Mar 03, 2025 SUBJECTIVE: This 74-year-old male patient is is being seen today at bedside. He is awake, alert and oriented x3. denies chest pain or shortness of breath. No nausea or vomiting. He is in no respiratory distress. Patient remains afebrile. WBC of 10.7. Pending insurance approval to [facility]. No acute events overnight. PHYSICAL EXAM EYES: Anicteric. Pupils equal and reactive. HENT: No oral thrush seen, moist Oral mucosa. NECK: Supple, no JVD or thyromegaly. LUNGS: Good air entry. No cough. CHEST: Sternal incision. CARDIOVASCULAR: S1, S2 regular. No murmur heard. ABDOMEN: Soft, non tender, bowel sounds present. CENTRAL NERVOUS SYSTEM: Awake, alert, oriented. SKIN: No rashes, no swelling. Vein harvesting surgical incisions to bilateral lower extremities.. LYMPHATICS: No peripheral lymphadenopathy. MUSCULOSKELETAL: No joint swelling, erythema or tenderness. EXTREMITIES: No cyanosis or clubbing. 1+ edema to bilateral feet, improved. BACK: No deformity, no pressure ulcer. GENITOURINARY: No dysuria or hematuria. Vital Sign (Last 12 Hours) 03/03/25 03/03/25 03/03/25 07:49 08:00 11:45 Temp 97.9 98.2 Pulse 62 63 Resp 18 18 B/P (MAP) 91/53 95/52 Pulse Ox 98 98 95 O2 Delivery Room Air Room Air* Room Air O2 Flow Rate 0 FiO2 21 Intake & Output (last 24hrs) 03/02/25 03/02/25 03/03/25 15:00 23:00 07:00 Intake Total 50.0 ml 50.0 ml Output Total 300 ml 300 ml Balance 50.0 ml -250.0 ml -300 ml LABS: Laboratory: Test 03/03/25 12:14 03/03/25 03:19 Range/Units Whole Blood Glucose 188 #H 70-110 MG/DL White Blood Count 10.7 4.8-10.8 K/uL Red Blood Count 3.52 L 4.50-6.20 MIL/uL Hemoglobin 10.4 L 14.0-18.0 g/dL Hematocrit 31.9 L 42-54 % Mean Corpuscular Volume 90.6 79-99 fL Mean Corpuscular Hemoglobin 29.5 27.0-33.0 pg Mean Corpuscular Hemoglobin Concent 32.6 32.0-36.0 g/dL Red Cell Distribution Width 17.5 H 11.0-15.5 % Platelet Count 422 H 130-400 K/uL Mean Platelet Volume 10.2 7.5-10.5 fL Immature Granulocyte % (Auto) 0.9 0-1 % Neutrophils (%) (Auto) 61.1 40.0-77.0 % Lymphocytes (%) (Auto) 24.5 21.0-51.0 % Monocytes (%) (Auto) 10.1 3.0-13.0 % Eosinophils (%) (Auto) 2.8 0.0-8.0 % Basophils (%) (Auto) 0.6 0.0-5.0 % Neutrophils # (Auto) 6.5 1.8-7.7 K/uL Lymphocytes # (Auto) 2.6 1.0-4.8 K/uL Monocytes # (Auto) 1.1 H 0.1-1.0 K/uL Eosinophils # (Auto) 0.30 0.00-0.70 K/uL Basophils # (Auto) 0.06 0.00-0.20 K/uL Absolute Immature Granulocyte (auto 0.10 0-1 K/uL Nucleated Red Blood Cells 0.0 0.0-0.19 % Sodium Level 138 136-145 mmol/L Potassium Level 3.8 3.5-5.1 mmol/L Chloride Level 101 101-111 mmol/L Carbon Dioxide Level 27 21-32 mmol/L Blood Urea Nitrogen 25 H 7-18 mg/dL Creatinine 1.3 0.5-1.3 mg/dL Glomerular Filtration Rate Calc 57 >90 mL/min Random Glucose 110 H 70-105 mg/dL Total Calcium 8.7 8.5-10.1 mg/dL B-Type Natriuretic Peptide 462 H 0-100 pg/mL ASSESSMENT: Hospital-acquired pneumonia. Leukocytosis. 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 Postop anemia. Left Pleural effusion. Diabetes mellitus. Congestive heart failure. PLAN: Continue on Zosyn. Continue GI prophylaxis. Continue diuretics Monitor electrolytes. Continue physical therapy. Pending insurance approval to [facility]. This case was reviewed and discussed with my supervising physician Dr. Mckeon and the above assessment and plan was formulated and agreed upon. LINSEY [facility] Mar 03, 2025 15:35
--- NOTE | 2025-03-03 17:02 | HMCIMG ---
EXAM: XR Chest, 1 Views. CLINICAL HISTORY: follow up after thiracocentesis COMPARISON: CR: CHEST 1View .02/27/2025 FINDINGS: LUNGS: The lungs are clear. No consolidation. PLEURAL SPACES: No pleural effusion or pneumothorax. HEART: The heart size is increased (increased cardiopulmonary ratio). Prominent aortic knuckle. BONES: Sternotomy wire sutures prominent. IMPRESSION: 1. No acute pulmonary process. /[place]
--- NOTE | 2025-03-03 20:41 | PN ---
Endocrinology progress note DOS: 03/03/25 subjective: glucose are improving/stable and s/p CABG procedure and s/p removal of impella. Home diabetic regimen: metformin 500 mg bid, Hba1c 13.9% s/p thoracentesis. insulin has been adjusted PAST MEDICAL HISTORY: [ Diabetes, hyperlipidemia, NE/coronary artery disease ] PAST SURGICAL HISTORY: [ Cardiac stent, cholecystectomy and left inguinal hernia repair ] PAST SOCIAL HISTORY: [ Patient lives with . Patient admits he drinks two beer yesterday. Patient reports he occasional drinks alcohol denies cigarette and recreational drug use. ] FAMILY HISTORY: [ Diabetes, cardiovascular disease, asthma and cancer ] Coded Allergies: No Known Drug Allergies (Unverified Allergy, Unknown, 08/31/15) ASSESSMENT: Hyperglycemia secondary to uncontrolled diabetes POA improving Home diabetic regimen: metformin 500 mg bid, Hba1c 13.9% glucose is improving. NSTEMI POA s/p CABG triple vessel disease s/p CABG hospital acquired pneumonia Hyperlipidemia POA Obesity POA NE/Coronary artery disease with cardiac stent POA PLAN: OFF insulin drip continue lantus 15 units daily. off regular insulin. Continue medium dose sliding scale insulin. Monitor glucose q x 6 hourly. Keep glucose less than 180 mg/dl. Patient will need insulin at discharge Vitals/Labs Vital Signs Date Time Temp Pulse Resp B/P (MAP) Pulse Ox O2 Delivery O2 Flow Rate FiO2 03/03/25 19:39 97.9 63 18 102/53 98 Room Air 03/03/25 08:00 0 21 Laboratory Tests 03/03/25 03:19 Medications Current Medications Sodium Chloride 1,000 ml @ 0 mls/hr ONCE ONCE IV; Start 02/10/25 at 01:00; Stop 02/10/25 at 00:46; Status DC Sodium Chloride 500 ml @ 0 mls/hr ONCE ONCE IV Last administered on 02/10/25at 00:53; Start 02/10/25 at 01:00; Stop 02/10/25 at 01:01; Status DC Insulin Human Regular 5 unit ONCE ONCE IV Last administered on 02/10/25at 01:30; Start 02/10/25 at 01:30; Stop 02/10/25 at 01:31; Status DC Aspirin 325 mg ONCE ONCE PO Last administered on 02/10/25at 02:32; Start 02/10/25 at 02:30; Stop 02/10/25 at 02:31; Status DC Heparin Sodium/ Dextrose 250 ml @ 0 mls/hr PROTOCOL IV Last administered on 02/10/25at 03:00; Start 02/10/25 at 03:00; Stop 02/10/25 at 17:22; Status DC Heparin Sodium (Porcine) 7,000 unit ONCE ONCE SQ Last administered on 02/10/25at 02:55; Start 02/10/25 at 03:00; Stop 02/10/25 at 03:01; Status DC Acetaminophen 650 mg Q6H PRN PO Last administered on 02/12/25at 17:13; Start 02/10/25 at 05:00; Stop 02/14/25 at 10:17; Status DC Acetaminophen 650 mg Q4H PRN PO; Start 02/10/25 at 05:00; Stop 02/14/25 at 10:05; Status DC Ondansetron HCl 4 mg Q6H PRN IV; Start 02/10/25 at 05:00; Stop 02/14/25 at 10:17; Status DC Nitroglycerin 0.4 mg PROTOCOL PRN SL; Start 02/10/25 at 05:00; Stop 02/14/25 at 09:59; Status DC Famotidine 20 mg DAILY PO Last administered on 02/13/25at 10:53; Start 02/10/25 at 09:00; Stop 02/14/25 at 09:59; Status DC Sodium Chloride 1,000 ml @ 100 mls/hr Q10H IV Last administered on 02/10/25at 14:20; Start 02/10/25 at 05:00; Stop 02/10/25 at 17:22; Status DC Insulin Human Regular INSULIN SLIDING SCAL... Q4H SQ Last administered on 02/10/25at 09:15; Start 02/10/25 at 05:00; Stop 02/10/25 at 11:10; Status DC Dextrose 50 ml AD PRN IV; Start 02/10/25 at 05:00; Stop 02/14/25 at 10:17; Status DC Glucagon 1 mg AD PRN IM; Start 02/10/25 at 05:00; Stop 02/14/25 at 10:17; Status DC Magnesium Sulfate 50 ml @ 0 mls/hr PROTOCOL PRN IV Last administered on 02/12/25at 07:13; Start 02/10/25 at 05:00; Stop 02/14/25 at 10:17; Status DC Potassium Chloride 100 ml @ 100 mls/hr AD PRN IV Last administered on 02/15/25at 05:43; Start 02/10/25 at 05:00; Stop 02/15/25 at 06:27; Status DC Potassium Chloride 20 meq AD PRN PO Last administered on 02/25/25at 09:30; Start 02/10/25 at 05:00; Stop 03/12/25 at 04:59 Potassium Chloride 20 meq AD PRN PO Last administered on 02/18/25at 20:18; Start 02/10/25 at 05:00; Stop 03/12/25 at 04:59 Aspirin 81 mg DAILY PO Last administered on 03/03/25at 10:06; Start 02/10/25 at 09:00; Stop 03/12/25 at 08:59 Insulin Human Regular INSULIN SLIDING SCAL... Q6H6 SQ Last administered on 02/11/25at 17:29; Start 02/10/25 at 12:00; Stop 02/14/25 at 09:59; Status DC Clopidogrel Bisulfate 600 mg ONCE PO Last administered on 02/10/25at 14:19; Start 02/10/25 at 14:00; Stop 02/10/25 at 17:22; Status DC Aspirin 325 mg ONCE PO Last administered on 02/10/25at 14:32; Start 02/10/25 at 14:30; Stop 02/10/25 at 17:22; Status DC Sacubitril/ Valsartan 0.5 each BID PO Last administered on 02/13/25at 21:11; Start 02/10/25 at 21:00; Stop 02/14/25 at 09:59; Status DC Empaglifozin 10 mg DAILY PO Last administered on 02/13/25at 10:52; Start 02/10/25 at 14:30; Stop 02/14/25 at 09:59; Status DC Spironolactone 25 mg DAILY PO Last administered on 02/13/25at 10:52; Start 02/10/25 at 14:30; Stop 02/14/25 at 09:59; Status DC Furosemide 20 mg ONCE IV Last administered on 02/10/25at 17:00; Start 02/10/25 at 17:00; Stop 02/10/25 at 21:00; Status DC Furosemide 20 mg ONCE IV; Start 02/11/25 at 09:00; Stop 02/11/25 at 07:43; Status DC Lidocaine HCl 20 ml STK-MED ONCE .ROUTE; Start 02/10/25 at 15:22; Stop 02/10/25 at 15:23; Status DC Iohexol 35,000 mg STK-MED ONCE IV; Start 02/10/25 at 15:22; Stop 02/10/25 at 15:23; Status DC Iohexol 50 ml STK-MED ONCE IV; Start 02/10/25 at 15:22; Stop 02/10/25 at 15:23; Status DC Heparin Sodium (Porcine) 10,000 unit STK-MED ONCE .ROUTE; Start 02/10/25 at 15:23; Stop 02/10/25 at 15:23; Status DC Heparin Sodium/ Sodium Chloride 1,000 ml @ As Directed STK-MED ONCE IV; Start 02/10/25 at 15:23; Stop 02/10/25 at 15:23; Status DC Nitroglycerin 50 mg STK-MED ONCE .ROUTE; Start 02/10/25 at 15:23; Stop 02/10/25 at 15:23; Status DC Heparin Sodium/ Sodium Chloride 500 ml @ As Directed STK-MED ONCE IV; Start 02/10/25 at 15:35; Stop 02/10/25 at 15:35; Status DC Fentanyl Citrate 100 mcg STK-MED ONCE .ROUTE; Start 02/10/25 at 15:39; Stop 02/10/25 at 15:40; Status DC Midazolam HCl 2 mg STK-MED ONCE .ROUTE; Start 02/10/25 at 15:40; Stop 02/10/25 at 15:40; Status DC Bivalirudin 250 mg STK-MED ONCE IV; Start 02/10/25 at 16:15; Stop 02/10/25 at 16:15; Status DC Heparin Sodium (Porcine) 7,000 unit ONCE ONCE IV Last administered on 02/11/25at 05:46; Start 02/11/25 at 05:30; Stop 02/11/25 at 05:31; Status DC Heparin Sodium/ Dextrose 250 ml @ 0 mls/hr Q6H IV Last administered on 02/13/25at 13:01; Start 02/11/25 at 06:30; Stop 02/14/25 at 09:59; Status DC Clopidogrel Bisulfate 75 mg DAILY PO; Start 02/11/25 at 09:00; Stop 02/11/25 at 07:28; Status DC Insulin Glargine 15 units DAILY08 SQ Last administered on 02/12/25at 08:54; Start 02/11/25 at 08:00; Stop 02/13/25 at 05:24; Status DC Furosemide 20 mg DAILY PO Last administered on 02/13/25at 10:52; Start 02/11/25 at 09:00; Stop 02/14/25 at 09:59; Status DC Insulin Human Regular 3 unit TIDAC SQ Last administered on 02/12/25at 16:31; Start 02/12/25 at 07:30; Stop 02/14/25 at 09:59; Status DC Metoprolol Tartrate 12.5 mg BID PO Last administered on 02/14/25at 06:44; Start 02/12/25 at 09:00; Stop 02/14/25 at 09:59; Status DC Potassium Chloride 40 meq BID ONCE PO; Start 02/12/25 at 21:00; Stop 02/12/25 at 21:01; Status DC Magnesium Chloride 64 mg Q8H6 ONCE PO; Start 02/12/25 at 14:00; Stop 02/12/25 at 14:01; Status DC Heparin Sodium (Porcine) *calculation based on ACTUAL B... AD PRN IV Last administered on 02/12/25at 20:16; Start 02/12/25 at 21:00; Stop 02/14/25 at 09:59; Status DC Insulin Glargine 12 units DAILY08 SQ Last administered on 02/13/25at 10:51; Start 02/13/25 at 08:00; Stop 02/14/25 at 09:59; Status DC Cefazolin Sodium 2 gm ONCALL IVP Last administered on 02/14/25at 08:50; Start 02/13/25 at 20:00; Stop 02/14/25 at 18:51; Status DC Epinephrine HCl 10 mg/Sodium Chloride 250 ml @ 0 mls/hr AD PRN IV Last administered on 02/20/25at 17:32; Start 02/14/25 at 06:30; Stop 03/16/25 at 06:29 Norepinephrine Bitartrate 250 ml @ 0 mls/hr AD PRN IV Last administered on 02/17/25at 01:06; Start 02/14/25 at 06:30; Stop 03/16/25 at 06:29 Aminocaproic Acid 25290 mg/Sodium Chloride 480 ml @ 0 mls/hr AD PRN IV; Start 02/14/25 at 06:30; Stop 02/23/25 at 11:52; Status DC Epinephrine HCl 10 mg/Sodium Chloride 250 ml @ 0 mls/hr AD PRN IV; Start 02/14/25 at 07:00; Stop 02/14/25 at 06:51; Status DC Norepinephrine Bitartrate 250 ml @ 0 mls/hr AD PRN IV; Start 02/14/25 at 07:00; Stop 02/14/25 at 06:51; Status DC Aminocaproic Acid 90380 mg/Sodium Chloride 480 ml @ 0 mls/hr AD PRN IV; Start 02/14/25 at 07:00; Stop 02/14/25 at 06:51; Status DC Cefazolin Sodium 2 gm STK-MED ONCE .ROUTE; Start 02/14/25 at 06:53; Stop 02/14/25 at 06:53; Status DC Nitroglycerin/ Dextrose 1 ml @ As Directed STK-MED ONCE .ROUTE; Start 02/14/25 at 07:00; Stop 02/14/25 at 07:00; Status DC Cefazolin Sodium 1 gm STK-MED ONCE .ROUTE Last administered on 02/14/25at 10:09; Start 02/14/25 at 07:37; Stop 02/14/25 at 07:38; Status DC Heparin Sodium/ Sodium Chloride 500 ml @ As Directed STK-MED ONCE IV; Start 02/14/25 at 07:38; Stop 02/14/25 at 07:38; Status DC Papaverine HCl 60 mg STK-MED ONCE .ROUTE Last administered on 02/14/25at 10:10; Start 02/14/25 at 07:38; Stop 02/14/25 at 07:38; Status DC Midazolam HCl 2 mg STK-MED ONCE .ROUTE; Start 02/14/25 at 08:14; Stop 02/14/25 at 08:14; Status DC Ketamine HCl 500 mg STK-MED ONCE IJ; Start 02/14/25 at 08:16; Stop 02/14/25 at 08:16; Status DC Protamine Sulfate 250 mg STK-MED ONCE IV; Start 02/14/25 at 08:17; Stop 02/14/25 at 08:17; Status DC Lidocaine HCl 100 mg STK-MED ONCE .ROUTE; Start 02/14/25 at 08:17; Stop 02/14/25 at 08:17; Status DC Heparin Sodium (Porcine) 10,000 unit STK-MED ONCE .ROUTE; Start 02/14/25 at 08:17; Stop 02/14/25 at 08:17; Status DC Epinephrine HCl 1 mg STK-MED ONCE .ROUTE; Start 02/14/25 at 08:17; Stop 02/14/25 at 08:17; Status DC Sodium Bicarbonate 200 ml @ As Directed STK-MED ONCE .ROUTE; Start 02/14/25 at 08:17; Stop 02/14/25 at 08:17; Status DC Norepinephrine Bitartrate 4 mg STK-MED ONCE IV; Start 02/14/25 at 08:17; Stop 02/14/25 at 08:17; Status DC Propofol 200 mg STK-MED ONCE IV; Start 02/14/25 at 08:19; Stop 02/14/25 at 08:19; Status DC Fentanyl Citrate 1,000 mcg STK-MED ONCE IJ; Start 02/14/25 at 08:19; Stop 02/14/25 at 08:19; Status DC Midazolam HCl 2 mg STK-MED ONCE .ROUTE; Start 02/14/25 at 08:20; Stop 02/14/25 at 08:20; Status DC Rocuronium [place] 50 mg STK-MED ONCE .ROUTE; Start 02/14/25 at 08:20; Stop 02/14/25 at 08:20; Status DC Acetaminophen 1,000 mg Q6H6 IV Last administered on 02/15/25at 12:14; Start 02/14/25 at 14:00; Stop 02/15/25 at 13:59; Status DC Aspirin 81 mg ONCE ONCE NG Last administered on 02/14/25at 13:56; Start 02/14/25 at 14:00; Stop 02/14/25 at 14:01; Status DC Docusate Sodium 100 mg BID PO Last administered on 03/03/25at 10:07; Start 02/14/25 at 21:00; Stop 03/16/25 at 20:59 Lactulose 20 gm BID PRN PO Last administered on 02/28/25at 15:56; Start 02/14/25 at 10:00; Stop 03/16/25 at 09:59 Furosemide 20 mg Q12H PO Last administered on 02/16/25at 08:19; Start 02/16/25 at 09:00; Stop 02/16/25 at 10:21; Status DC Furosemide 20 mg Q12H IV Last administered on 02/15/25at 20:16; Start 02/15/25 at 09:00; Stop 02/16/25 at 08:59; Status DC Atorvastatin Calcium 40 mg HS PO Last administered on 03/02/25at 21:31; Start 02/14/25 at 21:00; Stop 03/16/25 at 20:59 Enoxaparin Sodium 30 mg DAILY SQ Last administered on 03/03/25at 10:12; Start 02/17/25 at 09:00; Stop 03/19/25 at 08:59 Metoprolol Tartrate 12.5 mg BID PO; Start 02/16/25 at 09:00; Stop 02/20/25 at 09:01; Status DC Magnesium Hydroxide 30 ml DAILY PRN PO; Start 02/14/25 at 10:00; Stop 03/16/25 at 09:59 Dexmedetomidine/ Sodium Chloride 400 mcg PROTOCOL IV; Start 02/14/25 at 10:00; Stop 02/15/25 at 09:59; Status DC Acetaminophen 650 mg Q6H PRN PO; Start 02/14/25 at 10:00; Stop 03/16/25 at 09:59 Heparin Sodium (Porcine) 10,000 unit STK-MED ONCE .ROUTE; Start 02/14/25 at 10:00; Stop 02/14/25 at 10:00; Status DC Sodium Chloride 1,000 ml @ 10 mls/hr ONCE IV; Start 02/14/25 at 10:00; Stop 02/15/25 at 09:59; Status DC Sodium Chloride 10 ml Q8H PRN IVP; Start 02/14/25 at 10:00; Stop 03/16/25 at 09:59 Morphine Sulfate 0.5 mg Q2H PRN IV; Start 02/14/25 at 10:00; Stop 02/15/25 at 09:59; Status DC Morphine Sulfate 1 mg Q2H PRN IV Last administered on 02/14/25at 14:23; Start 02/14/25 at 10:30; Stop 02/19/25 at 13:29; Status DC Acetaminophen 650 mg Q4H PRN RC; Start 02/14/25 at 10:00; Stop 02/23/25 at 11:52; Status DC Ondansetron HCl 4 mg Q6H PRN IV; Start 02/14/25 at 10:00; Stop 03/16/25 at 09:59 Sodium Chloride 500 ml @ 0 mls/hr AD IV; Start 02/14/25 at 10:00; Stop 03/16/25 at 09:59 Nitroglycerin/ Dextrose 0 ml @ 0 mls/hr AD IV; Start 02/14/25 at 10:00; Stop 02/17/25 at 09:59; Status DC Propofol 100 ml @ 0 mls/hr AD PRN IV; Start 02/14/25 at 10:00; Stop 02/18/25 at 09:59; Status DC Norepinephrine Bitartrate 8 mg/ Dextrose 250 ml @ 0 mls/hr AD PRN IV; Start 02/14/25 at 10:00; Stop 02/14/25 at 10:14; Status DC Epinephrine HCl 10 mg/Sodium Chloride 250 ml @ 0 mls/hr AD PRN IV; Start 02/14/25 at 10:00; Stop 02/14/25 at 10:14; Status DC Aminocaproic Acid 49003 mg/Sodium Chloride 310 ml @ 25 mls/hr AD IV; Start 02/14/25 at 10:00; Stop 02/14/25 at 10:19; Status DC Calcium Gluconate 1 gm/Sodium Chloride 60 ml @ 200 mls/hr AD PRN IV Last administered on 02/21/25at 08:36; Start 02/14/25 at 10:00; Stop 03/16/25 at 09:59 Magnesium Sulfate 50 ml @ 12.5 mls/hr AD PRN IV Last administered on 02/24/25at 08:17; Start 02/14/25 at 10:00; Stop 03/16/25 at 09:59 Potassium Chloride 100 ml @ 100 mls/hr AD PRN IV Last administered on 02/21/25at 16:43; Start 02/14/25 at 10:00; Stop 03/16/25 at 09:59 Potassium Phosphate 250 ml @ 42 mls/hr AD PRN IV; Start 02/14/25 at 10:00; Stop 03/16/25 at 09:59 Albumin Human 250 ml @ 0 mls/hr AD PRN IV Last administered on 02/14/25at 14:42; Start 02/14/25 at 10:00; Stop 02/14/25 at 14:42; Status DC Acetaminophen 650 mg Q4H PRN PO; Start 02/14/25 at 10:00; Stop 03/16/25 at 09:59 Insulin Human Regular 100 unit/ Sodium Chloride 100 ml @ 0 mls/hr AD IV Last administered on 02/15/25at 06:30; Start 02/14/25 at 10:00; Stop 02/16/25 at 09:59; Status DC Cefazolin Sodium 2 gm Q8H IVPB Last administered on 02/15/25at 06:25; Start 02/14/25 at 15:00; Stop 02/15/25 at 07:01; Status DC Tramadol HCl 25 mg Q6H PRN PO; Start 02/14/25 at 10:00; Stop 02/19/25 at 09:59; Status DC Tramadol HCl 50 mg Q6H PRN PO; Start 02/14/25 at 10:00; Stop 02/19/25 at 09:59; Status DC Famotidine 20 mg BID IV Last administered on 02/15/25at 20:15; Start 02/14/25 at 21:00; Stop 02/16/25 at 07:58; Status DC Sodium Bicarbonate 50 meq AD PRN IV Last administered on 02/16/25at 15:25; Start 02/14/25 at 10:00; Stop 02/17/25 at 09:59; Status DC Dextrose 50 ml AD PRN IV; Start 02/14/25 at 10:00; Stop 03/16/25 at 09:59 Glucagon 1 mg AD PRN IM; Start 02/14/25 at 10:00; Stop 03/16/25 at 09:59 Dobutamine HCl 250 mg STK-MED ONCE .ROUTE; Start 02/14/25 at 10:28; Stop 02/14/25 at 10:28; Status DC Sodium Bicarbonate 50 ml @ As Directed STK-MED ONCE .ROUTE; Start 02/14/25 at 10:52; Stop 02/14/25 at 10:52; Status DC Sodium Bicarbonate 200 ml @ As Directed STK-MED ONCE .ROUTE; Start 02/14/25 at 10:53; Stop 02/14/25 at 10:53; Status DC Vasopressin 20 units STK-MED ONCE .ROUTE; Start 02/14/25 at 11:51; Stop 02/14/25 at 11:51; Status DC Rocuronium [place] 50 mg STK-MED ONCE .ROUTE; Start 02/14/25 at 12:14; Stop 02/14/25 at 12:14; Status DC Sodium Bicarbonate 100 ml @ As Directed STK-MED ONCE .ROUTE; Start 02/14/25 at 12:16; Stop 02/14/25 at 12:16; Status DC Vasopressin 40 units/Sodium Chloride 40 ml @ 0 mls/hr PROTOCOL IV Last administered on 02/14/25at 22:11; Start 02/14/25 at 13:00; Stop 03/16/25 at 12:59 Albumin Human 250 ml @ 0 mls/hr AD IV Last administered on 02/18/25at 10:27; Start 02/14/25 at 15:30; Stop 02/18/25 at 10:40; Status DC Calcium Gluconate 2 gm/Sodium Chloride 100 ml @ 0 mls/hr ONCE ONCE IV Last administered on 02/14/25at 16:15; Start 02/14/25 at 16:30; Stop 02/14/25 at 16:31; Status DC Pharmacy Profile Note 1 each ONCE MISC; Start 02/14/25 at 18:00; Stop 02/14/25 at 18:27; Status DC Sodium Bicarbonate 25 meq/Dextrose 1,025 ml @ 0 mls/hr Q0M IV Last administered on 02/18/25at 13:03; Start 02/14/25 at 18:00; Stop 03/16/25 at 17:59 Famotidine 20 mg BID PO Last administered on 02/16/25at 20:03; Start 02/16/25 at 09:00; Stop 02/17/25 at 07:09; Status DC Insulin Human Regular INSULIN SLIDING SCAL... ACHS SQ Last administered on 02/27/25at 21:34; Start 02/16/25 at 11:30; Stop 02/28/25 at 05:39; Status DC Cefepime HCl 1 gm Q12H IVPB Last administered on 02/19/25at 22:54; Start 02/16/25 at 10:30; Stop 02/20/25 at 08:16; Status DC Furosemide 100 mg/ Sodium Chloride 100 ml @ 0 mls/hr PROTOCOL IV Last administered on 02/19/25at 11:35; Start 02/16/25 at 10:30; Stop 02/20/25 at 09:01; Status DC Vancomycin HCl 500 ml @ 250 mls/hr ONCE ONCE IV Last administered on 02/16/25at 11:39; Start 02/16/25 at 12:00; Stop 02/16/25 at 13:59; Status DC Sodium Chloride 4 ml STK-MED ONCE IH Last administered on 02/16/25at 10:53; Start 02/16/25 at 10:44; Stop 02/16/25 at 10:44; Status DC Sodium Chloride 4 ml STK-MED ONCE IH Last administered on 02/16/25at 14:33; Start 02/16/25 at 14:26; Stop 02/16/25 at 14:26; Status DC Sodium Chloride 4 ml STK-MED ONCE IH Last administered on 02/16/25at 19:16; Start 02/16/25 at 18:32; Stop 02/16/25 at 18:32; Status DC Famotidine 20 mg DAILY PO Last administered on 03/03/25at 10:07; Start 02/17/25 at 09:00; Stop 03/18/25 at 08:59 Latanoprost 1 DROP FOR EACH EYE HS OP Last administered on 03/02/25at 22:06; Start 02/17/25 at 21:00; Stop 03/19/25 at 20:59 Home Med (Brimonidine-Timolol 0.2%/0.5% EYE DROPS) DAILY OP Last administered on 03/03/25at 10:06; Start 02/18/25 at 09:00; Stop 03/20/25 at 08:59 Albumin Human 250 ml @ 0 mls/hr AD IV; Start 02/18/25 at 10:30; Stop 02/20/25 at 09:03; Status DC Vancomycin HCl 1 each AD IV; Start 02/18/25 at 11:00; Stop 02/24/25 at 12:15; Status DC Vancomycin HCl 250 ml @ 125 mls/hr Q12H IV Last administered on 02/19/25at 11:20; Start 02/18/25 at 11:30; Stop 02/21/25 at 05:33; Status DC Potassium Chloride 20 meq BID PO Last administered on 03/03/25at 10:06; Start 02/19/25 at 10:30; Stop 03/21/25 at 10:29 Dexmedetomidine/ Sodium Chloride 400 mcg STK-MED ONCE IV Last administered on 02/20/25at 07:08; Start 02/20/25 at 07:00; Stop 02/20/25 at 07:00; Status DC Dexmedetomidine/ Sodium Chloride 400 mcg PROTOCOL IV Last administered on 02/22/25at 05:51; Start 02/20/25 at 07:30; Stop 02/22/25 at 15:01; Status DC Carvedilol 3.125 mg BID PO; Start 02/20/25 at 21:00; Stop 02/24/25 at 06:13; Status DC Spironolactone 25 mg DAILY PO Last administered on 03/03/25at 10:07; Start 02/20/25 at 09:00; Stop 03/22/25 at 08:59 Empaglifozin 10 mg DAILY PO Last administered on 02/22/25at 09:38; Start 02/20/25 at 09:00; Stop 02/22/25 at 15:01; Status DC Albumin Human 50 ml @ 0 mls/hr Q12H9 IV Last administered on 02/24/25at 08:15; Start 02/20/25 at 09:00; Stop 02/24/25 at 08:42; Status DC Furosemide 20 mg Q12H IV Last administered on 02/25/25at 21:27; Start 02/20/25 at 09:00; Stop 02/26/25 at 09:43; Status DC Pharmacy Profile Note 1 each ONCE MISC; Start 02/20/25 at 11:30; Stop 02/20/25 at 11:19; Status DC Piperacillin Sod/ Tazobactam Sod 50 ml @ 12.5 mls/hr Q8H IVPB Last administered on 02/24/25at 11:45; Start 02/20/25 at 11:30; Stop 02/24/25 at 18:10; Status DC Vancomycin HCl 250 ml @ 125 mls/hr Q24H IV Last administered on 02/23/25at 06:28; Start 02/21/25 at 06:00; Stop 02/24/25 at 05:57; Status DC Insulin Glargine 10 units DAILY SQ Last administered on 02/22/25at 11:54; Start 02/21/25 at 09:00; Stop 02/22/25 at 19:17; Status DC Calcium Gluconate 1 gm STK-MED ONCE .ROUTE; Start 02/21/25 at 08:34; Stop 02/21/25 at 08:34; Status DC Etomidate 20 mg STK-MED ONCE .ROUTE; Start 02/21/25 at 12:27; Stop 02/21/25 at 12:28; Status DC Fentanyl Citrate 100 mcg STK-MED ONCE .ROUTE; Start 02/21/25 at 12:30; Stop 02/21/25 at 12:30; Status DC Rocuronium [place] 50 mg STK-MED ONCE .ROUTE; Start 02/21/25 at 12:30; Stop 02/21/25 at 12:30; Status DC Lidocaine HCl 20 ml STK-MED ONCE .ROUTE; Start 02/21/25 at 12:31; Stop 02/21/25 at 12:31; Status DC Cefazolin Sodium 1 gm STK-MED ONCE .ROUTE; Start 02/21/25 at 12:31; Stop 02/21/25 at 12:32; Status DC Bupivacaine HCl 2.5 mg STK-MED ONCE IJ; Start 02/21/25 at 12:32; Stop 02/21/25 at 12:32; Status DC Propofol 200 mg STK-MED ONCE IV; Start 02/21/25 at 12:35; Stop 02/21/25 at 12:35; Status DC Lidocaine HCl 100 mg STK-MED ONCE .ROUTE; Start 02/21/25 at 12:46; Stop 02/21/25 at 12:46; Status DC Cefazolin Sodium 1 gm STK-MED ONCE .ROUTE; Start 02/21/25 at 12:51; Stop 02/21/25 at 12:51; Status DC Rocuronium [place] 50 mg STK-MED ONCE .ROUTE; Start 02/21/25 at 13:03; Stop 02/21/25 at 13:03; Status DC Cefazolin Sodium 2 gm STK-MED ONCE IVPB Last administered on 02/21/25at 12:53; Start 02/21/25 at 12:53; Stop 02/21/25 at 14:14; Status DC Lidocaine HCl 20 ml STK-MED ONCE INJ Last administered on 02/21/25at 12:18; Start 02/21/25 at 12:18; Stop 02/21/25 at 14:14; Status DC Bupivacaine HCl 75 mg STK-MED ONCE IJ Last administered on 02/21/25at 12:18; Start 02/21/25 at 12:18; Stop 02/21/25 at 14:14; Status DC Insulin Glargine 12 units DAILY SQ Last administered on 02/27/25at 17:30; Start 02/23/25 at 09:00; Stop 02/28/25 at 05:39; Status DC Dexmedetomidine/ Sodium Chloride 400 mcg PROTOCOL IV Last administered on 02/23/25at 00:17; Start 02/23/25 at 00:00; Stop 03/25/25 at 00:00 Midodrine 10 mg TID PO Last administered on 03/03/25at 14:55; Start 02/23/25 at 14:00; Stop 03/25/25 at 13:59 Prednisone 20 mg DAILY PO Last administered on 02/26/25at 09:50; Start 02/23/25 at 12:30; Stop 02/26/25 at 13:00; Status DC Vancomycin HCl 250 ml @ 125 mls/hr Q24H IV Last administered on 02/24/25at 06:26; Start 02/24/25 at 06:30; Stop 02/24/25 at 12:15; Status DC Carvedilol 3.125 mg BID PO Last administered on 03/02/25at 21:31; Start 02/24/25 at 09:00; Stop 03/26/25 at 08:59 Empaglifozin 10 mg DAILY PO Last administered on 02/24/25at 08:47; Start 02/24/25 at 09:00; Stop 02/24/25 at 13:01; Status DC Piperacillin Sod/ Tazobactam Sod 50 ml @ 12.5 mls/hr Q8H6 IVPB Last administered on 03/03/25at 14:55; Start 02/24/25 at 22:00; Stop 03/06/25 at 21:59 Furosemide 40 mg Q12H IV Last administered on 03/01/25at 09:28; Start 02/26/25 at 10:00; Stop 03/01/25 at 11:00; Status DC Insulin Glargine 15 units DAILY SQ Last administered on 03/03/25at 10:26; Start 02/28/25 at 09:00; Stop 03/30/25 at 08:59 Insulin Human Regular INSULIN SLIDING SCAL... ACHS SQ Last administered on 03/03/25at 12:20; Start 02/28/25 at 07:30; Stop 03/30/25 at 07:29 Furosemide 20 mg Q12H IV Last administered on 03/03/25at 10:07; Start 03/01/25 at 22:00; Stop 03/31/25 at 21:59 EUGENE ZARATE MD Mar 03, 2025 20:41
--- NOTE | 2025-03-03 23:00 | PN ---
SUBJECTIVE: Status post CABG, coursing with postoperative day #17. PHYSICAL EXAMINATION: GENERAL: He is awake, alert, in no acute distress. VITAL SIGNS: Stable as recorded in the medical record. CHEST: Sternum stable. Incision is healed. LUNGS: Clear. EXTREMITIES: Warm and well perfused. No evidence of DVT, hematoma, or infection. ASSESSMENT: * Status post CABG. He is supported with an Impella 5.5 for poor ejection fraction. * Congestive heart failure. The patient has low ejection fraction which is in the 20% to 25% after revascularization. We placed a LifeVest. * DVT prophylaxis. Lovenox 20 mg once a day. * Fluid overload. Lasix mg twice a day. * Coronary artery disease. Continue beta blockers as tolerated, long-acting, and aspirin 81 mg. PLAN: OT, PT, cardiac rehab, transfer to LTAC. TID: [id number] RECEIPT: [id number]
[2025-03-04] VITALS (8 sets, daily range): BP systolic 90–108; BP diastolic 52–65; PULSE 60–72; RESP 17–18; TEMP 97.5–99; O2SAT 94–97
[2025-03-04 03:45] LABS: IMMATURE GRANULOCYTE ABSOLUTE 0.07 K/uL (0-1); NUCLEATED RED BLOOD CELLS 0.0 % (0.0-0.19); PLATELET COUNT (AUTO) 380 K/uL (130-400); RED BLOOD CELL COUNT(AUTO) 3.76 MIL/uL (4.50-6.20); RED CELL DISTRIBUTION WIDTH 17.3 % (11.0-15.5); WHITE BLOOD COUNT (AUTO) 10.0 K/uL (4.8-10.8)
[2025-03-04 03:55] LABS: CREATININE 1.2 mg/dL (0.5-1.3); GLOMERULAR FILTR. RATE CALC 63.0 mL/min (>90); GLUCOSE,RANDOM 140.0 mg/dL (70-105); SODIUM SERUM 136.0 mmol/L (136-145); UREA NITROGEN, BLOOD 20.0 mg/dL (7-18)
--- NOTE | 2025-03-04 10:46 | PN ---
[facility] PROGRESS NOTE Date of Service: Mar 04, 2025 Time of Service: 10:43 HISTORY OF PRESENT ILLNESS: This is a 74-year-old male,a [employer] whith past medical history of diabetes, hyperlipidemia and ID/coronary artery disease with cardiac stent who presented to the Ed for complaints of midsternal chest pain that is non radiating associated with diaphoresis and this happened when patient was laying down in bed aroun 11:50 pm last night and decided to come to the ED for evaluation.Patient reports pain was persistent.As per patient he had a history of heart attack before and underwent a stent placement.Patient reports the only medication he is taking is Metformin.Patient states he is supposed to be on Aspirin but has stopped taking it.Patient reports he occasionally drinks beer and last drink was yesterday ,had 2 beers he said. Seen and examined patient in the ER awake,alert and coherent,appears comfortable.Patient denies fever,chills,cough,nausea,vomiting,palpitation and shortness of breath. Latest vital signs temperature 98.2, heart rate 75, blood pressure 124/70 saturation 97% on room air. Labs: CBC unremarkable. Chloride 99, BUN 21, random glucose 469 to 439 to 327. Troponin from -. ECG result revealed revealed sinus rhythm heart rate 85 with atrial premature complex anterolateral infarct age indeterminate. Second EKG result revealed sinus rhythm heart rate 73 with left anterior fascicular block. Probable anterolateral infarct age indeterminate. Abnormal T consider ischemia lateral leads.. Chest x-ray result revealed no acute cardiopulmonary process is evident. While in the ER patient received 1500 mL NS bolus, insulin 5 units IV, aspirin 325 mg p.o. and patient was started on heparin drip per [facility] protocol. SUBJECTIVE: 02/10/25: Patient was seen and evaluated in ED9. Patient was alert, awake and orientedX3. Patient reports that he doesn't have any chest pain today. Patient reports occasional shortness of breath during nights. Patient denies any shortness of breath, nausea, vomiting, palpitations and lightheadedness. Patient denies any abdominal pain, burning urination. Patient mentions that he only takes metformin 3-4 times per week and has stopped taking aspirin because it wasn't reconciled. Troponin from -. 2D ECHO was done, pending results. Patient is currently on Heparin drip 02/11/25: Patient was evaluated at the bedside this morning. No overnight event. He is AAO x3. patient reported that he does not have chest pain or shortness of breath. He is hemodynamically stable. The labs remarkable for potassium 3.3, magnesium 1.6, HbA1c 13.9, troponin 55218. Left heart catheterization revealed severe triple-vessel disease. Echocardiogram revealed 25% ejection fraction with segmental akinesis. CT surgery was consulted who recommended CABG with Impella left ventricle assist. Family to decide about the procedure. He is currently on heparin drip, aspirin. Endocrinology on board. Rest of the plan as discussed below. 02/12/25: Patient was evaluated at the bedside this morning. No overnight event. He is AAO x3. patient reported that he does not have chest pain or shortness of breath. He is hemodynamically stable. Cardiology is on board and Dr. Blanton have suggested low-dose beta estela like metoprolol tartrate 12.5 mg b.i.d. for his heart failure. Dr Kaur still recommends CABG with 5.5 Impella LVAD and the patient agrees to it. We will continue Entresto, Aldactone, Jardiance, aspirin, Lasix as per CT surgeon recommendations. Today his potassium is 3.1 and we would like to be above 4 for CABG patients. So we will replace potassium 02/13/25: Patient was seen and evaluated in room 201. Patient reports feeling better. patient denies any chest pain, shortness of breath. He is continuing on Entresto, Aldactone, Jardiance, aspirin, Lasix as per CT surgeon recommendations.Patients Potassium today is 3.7, will continue replacing potassium. Patients was present along with the patient, she has a few question about the CABG procedure which she wanted to ask Dr. Alexis. 02/14/25. Patient was undergoing CABG procedure today in the morning. 02/15/25: Patient was seen and evaluated in room 213. Patient status post CABG day 1. Patient denies any fever, chills, shortness of breath. Patient complaints of pain along the incision. Patient is on IABP and Impella support. patient is on Vasopressin and Norepinephrine drip. Entresto, Aldactone, Jardiance were discontinued by Dr. Alexis. CT surgery are on the case and will follow their recommendations. 02/16/25: Patient was seen and evaluated in room 213. Patient status post CABG day 2. patient was asleep when we went bedside. Spoke with the nurse regarding overnights and she mentioned that patient was a bit confused in the night but later improved with sleep. Patient is continuing on Epinephrine drip. Patient was weaned off IABP and is currently only on Impella. Patient was started on Vancomycin and cefepime due to elevated WBC levels and findings suggestive of pneumonia on chest x-ray 02/17/25: Patient was seen and evaluated in room 213. Patient status post CABG day 2. patient was asleep when we went bedside. Spoke with the nurse regarding overnights and he mentioned that patient was started on lasix protocol. Patient is continuing on Epinephrine drip and Impella. Critical care are on the case and will follow their recommendations. 02/18/25: Patient was seen and examined at bedside. He is status post CABG day 3. He continues on Lasix drip 2.5, With Impella P3 support and epinephrine drip. His total output in the past 24 hours has been optimal, 4740 versus 2165 input. No acute events overnight. We will follow CTS recommendations regarding further weaning off Impella. 02/19/25: Patient was seen and evaluated in room 210. He is status post CABG day 4. He continues on Lasix drip 2.5, With Impella P3 support and epinephrine drip. His total output in the past 24 hours has been 2905 versus 4072. No acute overnight. Patient is scheduled for possible impella removal tomorrow. 02/20/25: Patient was seen and evaluated in room 210. He is status post CABG day 5. He continues on Lasix drip 2.5, Impella setting have been maintained at P3 settings. He is continuing on epinephrine drip. Cefepime was discontinued yesterday because overnight the patient was confused, agitated and combative suspecting the cause of his confusion and started on Zosyn. His total output in the past 24 hours has been 2675 versus 2206. Patient is scheduled for possible impella removal tomorrow. 02/21/25: Patient was seen and evaluated in room 210. He is status post CABG day 6. Patient is continuing on Epinephrine drip. patient was started on Lasix 20mg IV. Patient is scheduled for impella removal today. Patient is continuing on Zosyn. His total output in the past 24 hours has been 6700 versus 1785. 02/22/25: Patient was seen and evaluated in room 210. He is status post CABG day 7. Patient reports feeling better and he doesn't have any active complaints, Impella was removed yesterday and patient is continuing on Epinephrine drip. patient denies any shortness of breath, fever, chills and chest pain. Patient is continuing on Zosyn. His total output in the past 24 hours has been 3650 versus 1775. 02/23/25: Patient was seen and evaluated in room 210. He is status post CABG day 8. Patient complains of pain in left lower extremity, Patient denies any erythema, chest pain. Patient denies any fever, chills, shortness of breath, and dizziness. Ankle X-ray, US venous Doppler was ordered, will follow the results. Patient is continuing on lasix 20mg. His total output in the past 24 hours has been 4900 versus 1829. 02/24/25: Patient was seen and evaluated in room 210. He is status post CABG day 9. Patient is alert, awake, oriented X3. Patient reports that his pain in the left lower leg is getting better. Venous US ordered yesterday came back unrem arkable. Patient denies any chest pain, shortness of breath. Epinephrine drip was discontinued. Patient was started back on Coreg 3.125mg, Jardiance 10mg under cardiology recommendations. His total output in the past 24 hours has been 3300 versus 1560. 02/25/25: Patient was seen and evaluated in room 233 along with his . He is status post CABG day 10. Patient's mentioned that the patient passed blood clots in urine, Patient denies any burning micturition or difficulty urinating. Patient is alert, awake, oriented X3. Patient denies any pain in left lower extremity, Patient denies any chest pain, shortness of breath. Jardiance was stopped because of elevated bicarb. His total output in the past 24 hours has been 2300 versus 690. 02.26.2024: Patient is seen and evaluated in room 223. His current blood pressure is 105/57. He is on Aspirin, Lasix, Coreg, Jardiance, Aldactone, and Lipitor. Case management is coordinating cardiac rehabilitation and potential SNF placement tomorrow. Pulmonology advised thoracentesis for left pleural effusion, the patient is saturating above 95%. The patient reports no dyspnea or orthopnea. He is receiving 12 units of Lantus and is off the insulin drip. He is on Zosyn and Vancomycin, and his WBC is 15.4 today. Bilirubin is trending down to 1.3 02.27.2025: Patient is seen and evaluated in room 223. He has no active complaints, and the nurse reports no overnight events. Chest X-ray demonstrates improvement from yesterday following thoracentesis. Case management is arranging placement to a [facility] facility, pending approval. From the cardiology perspective, the patient is cleared and approved for discharge to rehab. 02.28.2025: Patient is seen and evaluated in room 223. Cardiology left a note indicating possible AICD or LifeVest placement. Patient denies chest pain, shortness of breath, palpitations, and reports no lower-extremity edema. WBC is 14.7 today and trending down. Hemoglobin remains stable at 10.8. Chloride is 100 and BUN is 26. Blood sugars are 150 . Lantus has been increased from 12 units to 15 units. Pending referral to cardiac rehab. 03.01.2025: Patient is seen and evaluated in Room No. 223. The patient appears fluid overloaded. Laboratory results are as follows: WBC 15.5, Hemoglobin 12.5, Platelet count 540, Sodium 135, Chloride 96, BUN 25, Creatinine 1.5. Per Dr. Alexis, ventricular function will be assessed to determine candidacy for an AICD. The patient was previously on Lasix 40 mg, but due to rising BUN and creatinine, the dose has been reduced to Lasix 20 mg twice daily for volume management. 03.02.2025: Patient is seen and evaluated in room no. 223. Patient's WBC is 11.3 and trending down. Platelet count remains elevated at 446. Creatinine improved to 1.2 from 1.5 yesterday. BNP is 363, and we will monitor closely for any signs of fluid overload. The patient is currently wearing a LifeVest and will continue it for 8 weeks as per cardiology. We will transition Lasix from IV to oral formulation. Pending Cardiac rehabilitation approval. 03.03.2025: Patient is seen and evaluated in room number 223. His blood pressure today is 91/53. White blood cell count is 10.7 and trending down. Hemoglobin remains stable at 10.4. His BUN is 25. BNP is elevated at 462, so to further assess for possible fluid overload, a chest X-ray has been ordered and the report is currently pending. We will continue to monitor for any signs of fluid overload, and SNF placement is still pending. 03.04.2025: Patient was seen and evaluated in room 223. He reported no active complaints and expressed a desire to go home, as he is tired of staying in the hospital while awaiting approval. Case management is continuing to work on approval for transfer to [facility]. He will be transitioned to oral LASIX upon discharge. His current labs show a WBC of 10, hemoglobin 11, platelets 380, and magnesium 2. A chest X-ray performed yesterday showed no acute pulmonary process. REVIEW OF SYSTEMS CONSTITUTIONAL: Denies fevers, chills, or night sweats. No unintentional weight loss reported. NEUROLOGICAL: Denies headache, amaurosis fugax, motor weakness, sensory deficit, vertigo/spinning sensation, gait abnormalities, or tremors. ENT: No hearing loss, otalgia, otorrhea, rhinitis, rhinorrhea, hoarseness, or sore throat. CARDIOVASCULAR: Denies chest pain, dyspnea on exertion, orthopnea, paroxysmal nocturnal dyspnea, palpitations, life-threatening arrhythmias, claudication. PULMONARY: Denies any cough, phlegm/sputum, hemoptysis, pleuritic chest pain. GASTROINTESTINAL: Denies any type of dysphagia to either liquids or solids. Denies nausea, vomiting, pyrosis, early satiety, abdominal pain, diarrhea, constipation, or changes in stool consistency or caliber. Denies coffee-ground emesis, hematemesis, hematochezia, or melanotic stools. GENITOURINARY: Denies frequency, urgency, nocturia, hematuria or incontinence (Storage/Irritative symptoms.) Low urinary stream, straining to void, urinary intermittency or hesitancy, splitting of the voiding stream, terminal dribbling. PHYSICAL EXAM GENERAL APPEARANCE: The patient is awake, alert, and oriented, in no acute card iopulmonary distress. NEUROLOGICAL: Motor is 5/5 in bilateral upper and lower extremities proximal to distal. No sensory deficits. HEENT: Face is symmetric. Pupils are equal and reactive. Extraocular movements are intact. NECK: Supple. No thyromegaly. No submental, submandibular, pre-/postauricular, occipital or supraclavicular lymphadenopathy. CHEST: Normal chest expansion. No Telemetry. LUNGS: Absence of any rales, rhonchi or any wheezing. CARDIOVASCULAR: Regular. S1 and S2 normal. No appreciable rubs, murmurs or gallops. ABDOMEN: Soft, nontender, and nondistended. There is no rebound, voluntary guarding, or rigidity. : Deferred. No De Jesus. EXTREMITIES: Non-edematous and not cyanotic. No clubbing. Good capillary refill. SKIN: sternal scar - post CABG Vital Signs (last 8hr) Date Time Temp Pulse Resp B/P (MAP) Pulse Ox O2 Delivery O2 Flow Rate FiO2 03/04/25 10:34 107/65 03/04/25 08:11 97.7 66 18 107/65 96 Room Air 03/04/25 05:18 97.5 62 18 108/59 98 Room Air LABS: Laboratory: Test 03/04/25 03:15 03/03/25 20:01 03/03/25 03:19 Range/Units White Blood Count 10.0 4.8-10.8 K/uL Red Blood Count 3.76 L 4.50-6.20 MIL/uL Hemoglobin 11.0 L 14.0-18.0 g/dL Hematocrit 34.1 L 42-54 % Mean Corpuscular Volume 90.7 79-99 fL Mean Corpuscular Hemoglobin 29.3 27.0-33.0 pg Mean Corpuscular Hemoglobin Concent 32.3 32.0-36.0 g/dL Red Cell Distribution Width 17.3 H 11.0-15.5 % Platelet Count 380 130-400 K/uL Mean Platelet Volume 10.3 7.5-10.5 fL Immature Granulocyte % (Auto) 0.7 0-1 % Neutrophils (%) (Auto) 59.1 40.0-77.0 % Lymphocytes (%) (Auto) 24.3 21.0-51.0 % Monocytes (%) (Auto) 12.2 3.0-13.0 % Eosinophils (%) (Auto) 3.1 0.0-8.0 % Basophils (%) (Auto) 0.6 0.0-5.0 % Neutrophils # (Auto) 5.9 1.8-7.7 K/uL Lymphocytes # (Auto) 2.4 1.0-4.8 K/uL Monocytes # (Auto) 1.2 H 0.1-1.0 K/uL Eosinophils # (Auto) 0.31 0.00-0.70 K/uL Basophils # (Auto) 0.06 0.00-0.20 K/uL Absolute Immature Granulocyte (auto 0.07 0-1 K/uL Nucleated Red Blood Cells 0.0 0.0-0.19 % Sodium Level 136 136-145 mmol/L Potassium Level 4.0 3.5-5.1 mmol/L Chloride Level 101 101-111 mmol/L Carbon Dioxide Level 26 21-32 mmol/L Blood Urea Nitrogen 20 H 7-18 mg/dL Creatinine 1.2 0.5-1.3 mg/dL Glomerular Filtration Rate Calc 63 >90 mL/min Random Glucose 140 H 70-105 mg/dL Total Calcium 8.7 8.5-10.1 mg/dL Magnesium Level 2.00 1.80-2.40 mg/dL Whole Blood Glucose 160 H 70-110 MG/DL B-Type Natriuretic Peptide 462 H 0-100 pg/mL Current Medications Medications (Trade) Dose Ordered Sig/Carol Route PRN Reason Start Time Stop Time Status Last Admin Dose Admin Acetaminophen (TYLenol 325MG TAB) 650 mg Q4H PRN PO MILD PAIN (1-3) 02/10/25 05:00 02/14/25 10:05 DC Acetaminophen (TYLenol 325MG TAB) 650 mg Q4H PRN PO Temp >38.3C(AFTER EXTUBATION) 02/14/25 10:00 03/16/25 09:59 Acetaminophen (TYLenol 325MG TAB) 650 mg Q6H PRN PO TEMPERATURE GREATER THAN 101.5 02/10/25 05:00 02/14/25 10:17 DC 02/12/25 17:13 650 MG Acetaminophen (TYLenol 325MG TAB) 650 mg Q6H PRN PO MILD PAIN (1-3) 02/14/25 10:00 03/16/25 09:59 Acetaminophen (TYLenol 650MG SUPPOSITORY) 650 mg Q4H PRN RC Temp >38.3C WHILE INTUBATED 02/14/25 10:00 02/23/25 11:52 DC Acetaminophen (acetaMINOPHEN 1,000MG/100ML) 1,000 mg Q6H6 IV 02/14/25 14:00 02/15/25 13:59 DC 02/15/25 12:14 1,000 MG Albumin Human 50 ml @ 0 mls/hr Q12H9 IV 02/20/25 09:00 02/24/25 08:42 DC 02/24/25 08:15 100 MLS/HR Albumin Human 250 ml @ 0 mls/hr AD IV 02/14/25 15:30 02/18/25 10:40 DC 02/18/25 10:27 250 MLS/HR Albumin Human 250 ml @ 0 mls/hr AD IV 02/18/25 10:30 02/20/25 09:03 DC Albumin Human 250 ml @ 0 mls/hr AD PRN IV IF HEMODYNAMICALLY UNSTABLE 02/14/25 10:00 02/14/25 14:42 DC 02/14/25 14:42 500 MLS/HR Aminocaproic Acid 49075 mg/Sodium Chloride 310 ml @ 25 mls/hr AD IV 02/14/25 10:00 02/14/25 10:19 DC Aminocaproic Acid 13880 mg/Sodium Chloride 480 ml @ 0 mls/hr AD PRN IV BLEEDING CONTROL 02/14/25 06:30 02/23/25 11:52 DC Aminocaproic Acid 14174 mg/Sodium Chloride 480 ml @ 0 mls/hr AD PRN IV BLEEDING CONTROL 02/14/25 07:00 02/14/25 06:51 DC Aspirin (Aspirin 325mg Tab) 325 mg ONCE PO 02/10/25 14:30 02/10/25 17:22 DC 02/10/25 14:32 325 MG Aspirin (Aspirin 81mg Ec Tab) 81 mg DAILY PO 02/10/25 09:00 03/12/25 08:59 03/04/25 10:29 81 MG Atorvastatin Calcium (LIPItor 40MG) 40 mg HS PO 02/14/25 21:00 03/16/25 20:59 03/03/25 21:51 40 MG Calcium Gluconate 1 gm/Sodium Chloride 60 ml @ 200 mls/hr AD PRN IV HYPOCALCEMIA 02/14/25 10:00 03/16/25 09:59 02/21/25 08:36 200 MLS/HR Carvedilol (Coreg 3.125MG) 3.125 mg BID PO 02/20/25 21:00 02/24/25 06:13 DC Carvedilol (Coreg 3.125MG) 3.125 mg BID PO 02/24/25 09:00 03/26/25 08:59 03/04/25 10:34 3.125 MG Cefazolin Sodium (Ancef) 2 gm ONCALL IVP 02/13/25 20:00 02/14/25 18:51 DC 02/14/25 08:50 2 GM Cefazolin Sodium (Ancef) 2 gm Q8H IVPB 02/14/25 15:00 02/15/25 07:01 DC 02/15/25 06:25 2 GM Cefepime HCl (MAXipime 1 GM vial) 1 gm Q12H IVPB 02/16/25 10:30 02/20/25 08:16 DC 02/19/25 22:54 1 GM Clopidogrel Bisulfate (plaVIX 300MG TAB) 600 mg ONCE PO 02/10/25 14:00 02/10/25 17:22 DC 02/10/25 14:19 600 MG Clopidogrel Bisulfate (plaVIX 75MG) 75 mg DAILY PO 02/11/25 09:00 02/11/25 07:28 DC Dexmedetomidine/ Sodium Chloride (PRECEdex 400MCG/ 100ML-NS) 400 mcg PROTOCOL IV 02/14/25 10:00 02/15/25 09:59 DC Dexmedetomidine/ Sodium Chloride (PRECEdex 400MCG/ 100ML-NS) 400 mcg PROTOCOL IV 02/20/25 07:30 02/22/25 15:01 DC 02/22/25 05:51 400 MCG Dexmedetomidine/ Sodium Chloride (PRECEdex 400MCG/ 100ML-NS) 400 mcg PROTOCOL IV 02/23/25 00:00 03/25/25 00:00 02/23/25 00:17 400 MCG Dextrose (D50w) 50 ml AD PRN IV HYPOGLYCEMIA PROTOCOL 02/10/25 05:00 02/14/25 10:17 DC Dextrose (D50w) 50 ml AD PRN IV HYPOGLYCEMIA PROTOCOL 02/14/25 10:00 03/16/25 09:59 Docusate Sodium (COLace 100MG CAP) 100 mg BID PO 02/14/25 21:00 03/16/25 20:59 03/04/25 10:29 100 MG Empaglifozin (Jardiance 10mg) 10 mg DAILY PO 02/10/25 14:30 02/14/25 09:59 DC 02/13/25 10:52 10 MG Empaglifozin (Jardiance 10mg) 10 mg DAILY PO 02/20/25 09:00 02/22/25 15:01 DC 02/22/25 09:38 10 MG Empaglifozin (Jardiance 10mg) 10 mg DAILY PO 02/24/25 09:00 02/24/25 13:01 DC 02/24/25 08:47 10 MG Enoxaparin Sodium (Lovenox) 30 mg DAILY SQ 02/17/25 09:00 03/19/25 08:59 03/04/25 10:32 30 MG Epinephrine HCl 10 mg/Sodium Chloride 250 ml @ 0 mls/hr AD PRN IV TITRATE 02/14/25 06:30 03/16/25 06:29 02/20/25 17:32 2.9 MLS/HR Epinephrine HCl 10 mg/Sodium Chloride 250 ml @ 0 mls/hr AD PRN IV TITRATE 02/14/25 07:00 02/14/25 06:51 DC Epinephrine HCl 10 mg/Sodium Chloride 250 ml @ 0 mls/hr AD PRN IV POST-OP CARDIOVASCULAR ORDERS 02/14/25 10:00 02/14/25 10:14 DC Famotidine (Pepcid 20mg Vial) 20 mg BID IV 02/14/25 21:00 02/16/25 07:58 DC 02/15/25 20:15 20 MG Famotidine (Pepcid 20mg Tab) 20 mg BID PO 02/16/25 09:00 02/17/25 07:09 DC 02/16/25 20:03 20 MG Famotidine (Pepcid 20mg Tab) 20 mg DAILY PO 02/10/25 09:00 02/14/25 09:59 DC 02/13/25 10:53 20 MG Famotidine (Pepcid 20mg Tab) 20 mg DAILY PO 02/17/25 09:00 03/18/25 08:59 03/04/25 10:31 20 MG Furosemide (LASix 20MG TAB) 20 mg DAILY PO 02/11/25 09:00 02/14/25 09:59 DC 02/13/25 10:52 20 MG Furosemide (LASix 20MG TAB) 20 mg Q12H PO 02/16/25 09:00 02/16/25 10:21 DC 02/16/25 08:19 20 MG Furosemide (LASix 20MG VIAL) 20 mg ONCE IV 02/10/25 17:00 02/10/25 21:00 DC 02/10/25 17:00 20 MG Furosemide (LASix 20MG VIAL) 20 mg ONCE IV 02/11/25 09:00 02/11/25 07:43 DC Furosemide (LASix 20MG VIAL) 20 mg Q12H IV 02/15/25 09:00 02/16/25 08:59 DC 02/15/25 20:16 20 MG Furosemide (LASix 20MG VIAL) 20 mg Q12H IV 02/20/25 09:00 02/26/25 09:43 DC 02/25/25 21:27 20 MG Furosemide (LASix 20MG VIAL) 20 mg Q12H IV 03/01/25 22:00 03/31/25 21:59 03/04/25 10:32 20 MG Furosemide (LASix 40MG VIAL) 40 mg Q12H IV 02/26/25 10:00 03/01/25 11:00 DC 03/01/25 09:28 40 MG Furosemide 100 mg/ Sodium Chloride 100 ml @ 0 mls/hr PROTOCOL IV 02/16/25 10:30 02/20/25 09:01 DC 02/19/25 11:35 2.5 MLS/HR Glucagon (Glucagon 1mg Kit) 1 mg AD PRN IM HYPOGLYCEMIA PROTOCOL 02/10/25 05:00 02/14/25 10:17 DC Glucagon (Glucagon 1mg Kit) 1 mg AD PRN IM HYPOGLYCEMIA PROTOCOL 02/14/25 10:00 03/16/25 09:59 Heparin Sodium (Porcine) (HEParin 5,000 UNIT VIAL) *calculation based on ACTUAL B... AD PRN IV HEPARIN PROTOCOL 02/12/25 21:00 02/14/25 09:59 DC 02/12/25 20:16 4,000 UNIT Heparin Sodium/ Dextrose 250 ml @ 0 mls/hr PROTOCOL IV 02/10/25 03:00 02/10/25 17:22 DC 02/10/25 03:00 16.2 MLS/HR Heparin Sodium/ Dextrose 250 ml @ 0 mls/hr Q6H IV 02/11/25 06:30 02/14/25 09:59 DC 02/13/25 13:01 9 MLS/HR Home Med (Home Medication) (Brimonidine-Timolol 0.2%/0.5% EYE DROPS) DAILY OP 02/18/25 09:00 03/20/25 08:59 03/04/25 10:35 1 EACH Insulin Glargine (LANtus 100 UNITS/ML 10 ML VIAL) 10 units DAILY 02/21/25 09:00 02/22/25 19:17 DC 02/22/25 11:54 10 UNITS Insulin Glargine (LANtus 100 UNITS/ML 10 ML VIAL) 12 units DAILY 02/23/25 09:00 02/28/25 05:39 DC 02/27/25 17:30 12 UNITS Insulin Glargine (LANtus 100 UNITS/ML 10 ML VIAL) [facility] 02/13/25 08:00 02/14/25 09:59 DC 02/13/25 10:51 12 UNITS Insulin Glargine (LANtus 100 UNITS/ML 10 ML VIAL) 15 units DAILY 02/28/25 09:00 03/30/25 08:59 03/04/25 10:40 15 UNITS Insulin Glargine (LANtus 100 UNITS/ML 10 ML VIAL) [facility] 02/11/25 08:00 02/13/25 05:24 DC 02/12/25 08:54 15 UNITS Insulin Human Regular (humuLIN R 100 UNIT/ML 3ML) 3 unit TIDAC 02/12/25 07:30 02/14/25 09:59 DC 02/12/25 16:31 3 UNIT Insulin Human Regular (humuLIN R 100 UNIT/ML 3ML) INSULIN SLIDING SCAL... ACHS 02/16/25 11:30 02/28/25 05:39 DC 02/27/25 21:34 2 UNIT Insulin Human Regular (humuLIN R 100 UNIT/ML 3ML) INSULIN SLIDING SCAL... ACHS 02/28/25 07:30 03/30/25 07:29 03/03/25 12:20 2 UNIT Insulin Human Regular (humuLIN R 100 UNIT/ML 3ML) INSULIN SLIDING SCAL... Q4H SQ 02/10/25 05:00 02/10/25 11:10 DC 02/10/25 09:15 6 UNIT Insulin Human Regular (humuLIN R 100 UNIT/ML 3ML) INSULIN SLIDING SCAL... Q6H6 SQ 02/10/25 12:00 02/14/25 09:59 DC 02/11/25 17:29 2 UNIT Insulin Human Regular 100 unit/ Sodium Chloride 100 ml @ 0 mls/hr AD IV 02/14/25 10:00 02/16/25 09:59 DC 02/15/25 06:30 3 MLS/HR Lactulose (Constulose 20gm/ 30ml Udcup) 20 gm BID PRN PO CONSTIPATION 02/14/25 10:00 03/16/25 09:59 02/28/25 15:56 20 GM Latanoprost (Xalatan) 1 DROP FOR EACH EYE HS OP 02/17/25 21:00 03/19/25 20:59 03/03/25 22:00 1 DROP Magnesium Hydroxide (Milk Of Magnesium 30ml) 30 ml DAILY PRN PO CONSTIPATION 02/14/25 10:00 03/16/25 09:59 Magnesium Sulfate 50 ml @ 12.5 mls/hr AD PRN IV MAG LEVEL LESS THAN 2.0 02/14/25 10:00 03/16/25 09:59 02/24/25 08:17 12.5 MLS/HR Magnesium Sulfate 50 ml @ 0 mls/hr PROTOCOL PRN IV OTHER [SEE ORDER COMMENTS] 02/10/25 05:00 02/14/25 10:17 DC 02/12/25 07:13 25 MLS/HR Metoprolol Tartrate (loprESSOR) 12.5 mg BID PO 02/12/25 09:00 02/14/25 09:59 DC 02/14/25 06:44 12.5 MG Metoprolol Tartrate (loprESSOR) 12.5 mg BID PO 02/16/25 09:00 02/20/25 09:01 DC Midodrine (PROAMatine 5 MG TABLET) 10 mg TID PO 02/23/25 14:00 03/25/25 13:59 03/04/25 10:41 10 MG Morphine Sulfate (morPHINE 2MG SYG) 0.5 mg Q2H PRN IV MODERATE PAIN (4-6) IF NPO 02/14/25 10:00 02/15/25 09:59 DC Morphine Sulfate (morPHINE 2MG SYG) 1 mg Q2H PRN IV SEVERE PAIN (7-10) IF NPO 02/14/25 10:30 02/19/25 13:29 DC 02/14/25 14:23 1 MG Nitroglycerin (Nitrostat) 0.4 mg PROTOCOL PRN SL CHEST PAIN 02/10/25 05:00 02/14/25 09:59 DC Nitroglycerin/ Dextrose 0 ml @ 0 mls/hr AD IV 02/14/25 10:00 02/17/25 09:59 DC Norepinephrine Bitartrate 250 ml @ 0 mls/hr AD PRN IV TITRATE 02/14/25 06:30 03/16/25 06:29 02/17/25 01:06 1.9 MLS/HR Norepinephrine Bitartrate 250 ml @ 0 mls/hr AD PRN IV TITRATE 02/14/25 07:00 02/14/25 06:51 DC Norepinephrine Bitartrate 8 mg/ Dextrose 250 ml @ 0 mls/hr AD PRN IV POST-OP CARDIOVASCULAR ORDERS 02/14/25 10:00 02/14/25 10:14 DC Ondansetron HCl (zoFRAN 4MG INJ) 4 mg Q6H PRN IV NAUSEA/VOMITING 02/10/25 05:00 02/14/25 10:17 DC Ondansetron HCl (zoFRAN 4MG INJ) 4 mg Q6H PRN IV NAUSEA/VOMITING 02/14/25 10:00 03/16/25 09:59 Pharmacy Profile Note (Pharmacy Communication) 1 each ONCE MISC 02/14/25 18:00 02/14/25 18:27 DC Pharmacy Profile Note (Pharmacy Communication) 1 each ONCE MISC 02/20/25 11:30 02/20/25 11:19 DC Piperacillin Sod/ Tazobactam Sod 50 ml @ 12.5 mls/hr Q8H IVPB 02/20/25 11:30 02/24/25 18:10 DC 02/24/25 11:45 12.5 MLS/HR Piperacillin Sod/ Tazobactam Sod 50 ml @ 12.5 mls/hr Q8H6 IVPB 02/24/25 22:00 03/06/25 21:59 03/04/25 05:53 12.5 MLS/HR Potassium Phosphate 250 ml @ 42 mls/hr AD PRN IV LOW PHOS LEVEL 02/14/25 10:00 03/16/25 09:59 Potassium Chloride 100 ml @ 100 mls/hr AD PRN IV POTASSIUM PROTOCOL 02/10/25 05:00 02/15/25 06:27 DC 02/15/25 05:43 100 MLS/HR Potassium Chloride 100 ml @ 100 mls/hr AD PRN IV HYPOKALEMIA 02/14/25 10:00 03/16/25 09:59 02/21/25 16:43 100 MLS/HR Potassium Chloride (K-Dur/Klor-Con 20meq) 20 meq AD PRN PO POTASSIUM PROTOCOL 02/10/25 05:00 03/12/25 04:59 02/18/25 20:18 20 MEQ Potassium Chloride (K-Dur/Klor-Con 20meq) 20 meq BID PO 02/19/25 10:30 03/21/25 10:29 03/04/25 10:31 20 MEQ Potassium Chloride (KCl 10% Elixir 20meq/15ml) 20 meq AD PRN PO POTASSIUM PROTOCOL 02/10/25 05:00 03/12/25 04:59 02/25/25 09:30 20 MEQ Prednisone (deltaSONE/ oraSONE 20MG TAB) 20 mg DAILY PO 02/23/25 12:30 02/26/25 13:00 DC 02/26/25 09:50 20 MG Propofol 100 ml @ 0 mls/hr AD PRN IV SEDATION 02/14/25 10:00 02/18/25 09:59 DC Sacubitril/ Valsartan (Entresto 24 Mg-26 Mg Tablet) 0.5 each BID PO 02/10/25 21:00 02/14/25 09:59 DC 02/13/25 21:11 0.5 EACH Sodium Bicarbonate 25 meq/Dextrose 1,025 ml @ 0 mls/hr Q0M IV 02/14/25 18:00 03/16/25 17:59 02/18/25 13:03 9.9 MLS/HR Sodium Bicarbonate (Sodium Bicarb 50meq 50ml Vial) 50 meq AD PRN IV OTHER[SEE DOSING INSTRUCTIONS] 02/14/25 10:00 02/17/25 09:59 DC 02/16/25 15:25 50 MEQ Sodium Chloride 500 ml @ 0 mls/hr AD IV 02/14/25 10:00 03/16/25 09:59 Sodium Chloride 1,000 ml @ 10 mls/hr ONCE IV 02/14/25 10:00 02/15/25 09:59 DC Sodium Chloride 1,000 ml @ 100 mls/hr Q10H IV 02/10/25 05:00 02/10/25 17:22 DC 02/10/25 14:20 100 MLS/HR Sodium Chloride (NS Flush 10ml) 10 ml Q8H PRN IVP IV LINE FLUSH 02/14/25 10:00 03/16/25 09:59 Spironolactone (Aldactone 25mg) 25 mg DAILY PO 02/10/25 14:30 02/14/25 09:59 DC 02/13/25 10:52 25 MG Spironolactone (Aldactone 25mg) 25 mg DAILY PO 02/20/25 09:00 03/22/25 08:59 03/04/25 10:29 25 MG Tramadol HCl (UltRAM) 25 mg Q6H PRN PO MODERATE PAIN (4-6) 02/14/25 10:00 02/19/25 09:59 DC Tramadol HCl (UltRAM) 50 mg Q6H PRN PO SEVERE PAIN (7-10) 02/14/25 10:00 02/19/25 09:59 DC Vancomycin HCl 250 ml @ 125 mls/hr Q12H IV 02/18/25 11:30 02/21/25 05:33 DC 02/19/25 11:20 125 MLS/HR Vancomycin HCl 250 ml @ 125 mls/hr Q24H IV 02/21/25 06:00 02/24/25 05:57 DC 02/23/25 06:28 125 MLS/HR Vancomycin HCl 250 ml @ 125 mls/hr Q24H IV 02/24/25 06:30 02/24/25 12:15 DC 02/24/25 06:26 125 MLS/HR Vancomycin HCl (Vancomycin Protocol) 1 each AD IV 02/18/25 11:00 02/24/25 12:15 DC Vasopressin 40 units/Sodium Chloride 40 ml @ 0 mls/hr PROTOCOL IV 02/14/25 13:00 03/16/25 12:59 02/14/25 22:11 1.8 MLS/HR DIAGNOSTICS / RADIOLOGY: [facility] [address] [place] [address] IMAGING REPORT Signed PATIENT: EMMY GRACE MR#: [id number] : 1950 SEX: M AGE: 74 LOCATION: 2DH ORDER 1052 STATUS: ADM IN REPORT#: [id number] SERVICE 1040 REASON: Evaluate for fluid overload ORDERING PHYSICIAN: SUBHA DEL VALLE MD PROCEDURE: CXR1VW - CHEST 1VW EXAM: XR Chest, 1 Views. CLINICAL HISTORY: follow up after thiracocentesis COMPARISON: CR: CHEST 1View .02/27/2025 FINDINGS: LUNGS: The lungs are clear. No consolidation. PLEURAL SPACES: No pleural effusion or pneumothorax. HEART: The heart size is increased (increased cardiopulmonary ratio). Prominent aortic knuckle. BONES: Sternotomy wire sutures prominent. IMPRESSION: 1. No acute pulmonary process. /Hanna DICTATED BY: POALO LYNN MD DATE: 03/03/251800 ELECTRONICALLY SIGNED BY: PAOLO LYNN MD DATE: 03/03/251800 ASSESSMENT: Chest pain rule out ACS: NSTEMI POA Suspected pneumonia findings on Chest X-ray Possible metabolic encephalopathy Hyperglycemia secondary to uncontrolled diabetes POA Hyperlipidemia POA Medication noncompliance, POA Obesity POA ID/Coronary artery disease with cardiac stent POA PLAN: Pending SNF Approval NSTEMI POA: * EKG was done which revealed sinus rhythm heart rate 85 with atrial premature complex anterolateral infarct age indeterminate. Second EKG result revealed sinus rhythm heart rate 73 with left anterior fascicular block. Probable anterolateral infarct age indeterminate. Abnormal T consider ischemia lateral leads. * PERC score was one, Wells score was zero. Very low suspicion for Pulmonary Embolism. * Chest X - ray on 02.25.2025 - Persistent small left pleural effusion with left mid and lower zone airspace opacities, significantly unchanged from prior study. * Thoracentesis done today - removed 1.1 lit of fluid by Dr. Louie and the patient tolerated the procedure well * Chest x-ray done on 02/17/25 show, small stable left pleural effusion with adjacent lung atelectasis. follow up x-ray from 02/22/25 show Cardiomegaly with median sternotomy with cardiac revascularization procedure, there is suggestion of a moderate left-sided pleural effusion. * 2-D ECHO on 02/19/25 show LVEF of 25-30% with segmental akinesis (apical, apical lateral, anteroapical) * Troponin trends [id number] * Left heart catheterization revealed severe three-vessel CAD with occluded mid LAD, 90% proximal left circumflex, 95% distal RCA, and 90% ostial PDA. * As per CT surgeon recommendations Entresto 0.5 each, was held. 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 * On aspirin 81 mg p.o. * Patient is on lasix 20mg IV. * Impella removed * Epinpehrine drip was discontinued and patient was started on Coreg 31.125, * Jardiance 10mg was held due to elevated bicarb. * [facility] as per cardiology * BNP - 462, so to further assess for possible fluid overload, a chest X-ray has been ordered - which showed no acute process Suspected pneumonia findings on Chest X-ray * Chest x-ray done on 02/16/25 show diffuse airspace disease of the left lung, predominantly involving the left lower zone, could be due to an infection or atelectasis. Questionable left pleural effusion. * Chest x-ray done on 02/17/25 show, small stable left pleural effusion with adjacent lung atelectasis. follow up x-ray from 02/19/25 show no interval change. * Patient on Zosyn- Started on 02/20/25 * WBC count on (03/04/25) - 10 * Will monitor with daily labs. Possible metabolic encephalopathy * Chest x-ray done on 02/17/25 show, small stable left pleural effusion with adjacent lung atelectasis. * Patient was started on Vancomycin and cefepime due to elevated WBC levels and findings suggestive of pneumonia on chest x-ray * Cefepime was discontinued on 02/20/25 because the patient was confused, agitated and combative suspecting the cause of his confusion and was started on Zosyn. * Will monitor with daily labs Hyperglycemia secondary to uncontrolled diabetes POA: * HbA1c 13.9 * Following the Endocrinology recommendations. He is on Lantus 15 units, low- dose sliding scale insulin * Jardiance 10mg was held due to elevated bicarb. * We will monitor blood glucose. Hypokalemia Hypomagnesemia - resolved * Potassium 4 - 03.02.2025 * Magnesium 2 (03.04.2025) * We will replete the electrolytes and monitor. * Keep potassium above 4 and magnesium above 2. * We will start Slow-Mag oral t.i.d. once and will keep monitoring magnesium levels. Supportive measures * GI prophylaxis with Famotidine * DVT prophylaxis with SCD's SUBHA DEL VALLE MD Mar 04, 2025 10:46
--- NOTE | 2025-03-04 12:45 | PN ---
INFECTIOUS DISEASE PROGRESS NOTE Date of Service: Mar 04, 2025 SUBJECTIVE: This is a 74-year-old male patient who is still pending insurance approval to [facility]. Patient remains afebrile and the WBC has been trended down to 10.0. We will continue on Zosyn IV. PHYSICAL EXAM EYES: Anicteric. Pupils equal and reactive. HENT: No oral thrush seen, moist Oral mucosa. NECK: Supple, no JVD or thyromegaly. LUNGS: Good air entry. No cough. CHEST: Sternal incision. CARDIOVASCULAR: S1, S2 regular. No murmur heard. ABDOMEN: Soft, non tender, bowel sounds present. CENTRAL NERVOUS SYSTEM: Awake, alert, oriented. SKIN: No rashes, no swelling. Surgical incisions to bilateral lower extremities healing. LYMPHATICS: No peripheral lymphadenopathy. MUSCULOSKELETAL: No joint swelling, erythema or tenderness. EXTREMITIES: No cyanosis or clubbing. 1+ edema to bilateral feet, resolved. BACK: No deformity, no pressure ulcer. GENITOURINARY: No dysuria or hematuria. Vital Sign (Last 12 Hours) 03/04/25 03/04/25 03/04/25 05:18 08:11 10:34 Temp 97.5 97.7 Pulse 62 66 Resp 18 18 B/P (MAP) 108/59 107/65 107/65 Pulse Ox 98 96 O2 Delivery Room Air Room Air Intake & Output (last 24hrs) 03/03/25 03/03/25 03/04/25 15:00 23:00 07:00 Intake Total 240 ml 277.5 ml 12.5 ml Output Total 250 ml 725 ml 925 ml Balance -10 ml -447.5 ml -912.5 ml LABS: Laboratory: Test 03/04/25 12:06 03/04/25 03:15 03/03/25 03:19 Range/Units Whole Blood Glucose 202 H 70-110 MG/DL White Blood Count 10.0 4.8-10.8 K/uL Red Blood Count 3.76 L 4.50-6.20 MIL/uL Hemoglobin 11.0 L 14.0-18.0 g/dL Hematocrit 34.1 L 42-54 % Mean Corpuscular Volume 90.7 79-99 fL Mean Corpuscular Hemoglobin 29.3 27.0-33.0 pg Mean Corpuscular Hemoglobin Concent 32.3 32.0-36.0 g/dL Red Cell Distribution Width 17.3 H 11.0-15.5 % Platelet Count 380 130-400 K/uL Mean Platelet Volume 10.3 7.5-10.5 fL Immature Granulocyte % (Auto) 0.7 0-1 % Neutrophils (%) (Auto) 59.1 40.0-77.0 % Lymphocytes (%) (Auto) 24.3 21.0-51.0 % Monocytes (%) (Auto) 12.2 3.0-13.0 % Eosinophils (%) (Auto) 3.1 0.0-8.0 % Basophils (%) (Auto) 0.6 0.0-5.0 % Neutrophils # (Auto) 5.9 1.8-7.7 K/uL Lymphocytes # (Auto) 2.4 1.0-4.8 K/uL Monocytes # (Auto) 1.2 H 0.1-1.0 K/uL Eosinophils # (Auto) 0.31 0.00-0.70 K/uL Basophils # (Auto) 0.06 0.00-0.20 K/uL Absolute Immature Granulocyte (auto 0.07 0-1 K/uL Nucleated Red Blood Cells 0.0 0.0-0.19 % Sodium Level 136 136-145 mmol/L Potassium Level 4.0 3.5-5.1 mmol/L Chloride Level 101 101-111 mmol/L Carbon Dioxide Level 26 21-32 mmol/L Blood Urea Nitrogen 20 H 7-18 mg/dL Creatinine 1.2 0.5-1.3 mg/dL Glomerular Filtration Rate Calc 63 >90 mL/min Random Glucose 140 H 70-105 mg/dL Total Calcium 8.7 8.5-10.1 mg/dL Magnesium Level 2.00 1.80-2.40 mg/dL B-Type Natriuretic Peptide 462 H 0-100 pg/mL ASSESSMENT: Hospital-acquired pneumonia. Leukocytosis, resolving. 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 Postop anemia. Left Pleural effusion. Diabetes mellitus. Congestive heart failure. Debility. PLAN: Continue on Zosyn. Continue GI prophylaxis. Continue diuretics Monitor electrolytes. Continue physical therapy. Pending insurance approval to [facility]. This case was reviewed and discussed with my supervising physician Dr. Harrell and the above assessment and plan was formulated and agreed upon. ATTESTATION BY PHYSICIAN I have seen and examined the patient. I reviewed the documentation, medical decision making, and treatment plan as noted by the mid-level provider above. I agree with the findings and plan of care. BERENICE HARRELL MD, [facility] Mar 04, 2025 12:45
--- NOTE | 2025-03-04 13:17 | PN ---
[facility] PROGRESS NOTE Date Patient Seen: Mar 04, 2025 Time of Visit: 13:14 Supervising Physician: [ ] Primary Care Physician: KELLEY ENCINAS MD Outpatient Specialists: Inpatient Consults: BIS PROBLEM LIST: CAD, status post CABG x3 Left-sided hemothorax s/p thoracentesis HAP Impella and a intra-aortic balloon pump support Type 2 diabetes with hyperglycemia Congested heart failure EF 20% Obstructive coronary artery disease Atherosclerosis Primary hypertension Morbid obesity; BMI 36 Cardiogenic shock; resolved INTERVAL HISTORY: Patient seen and evaluated, patient is sitting comfortably at the bedside chair, reporting no chest pain or shortness of breath No acute events overnight Afebrile Good saturations on room air Tolerating PT Plan: Pending senior living facility [facility] Continue diuresis Supplemental O2 if needed Cardiac rehab Lovenox subQ Antibiotics per ID REVIEW OF SYSTEMS: 12 point ROS reviewed with patient. Pertinent positives mentioned above. Otherwise negative. PHYSICAL EXAM: GENERAL: Patient comfortable in bed, HEENT: EOMI, Sclera non icteric, moist mucosa NECK: Supple, no JVD, trachea midline LUNGS: Clear breath sounds bilaterally. No wheezes HEART: Regular rate and rhythm. Normal S1 and S2, without murmurs sternum wound looks clean, no bleeding or discharge. ABD: Abdomen soft, nontender. Bowel sounds present EXT: Edema and hyperemia to the right ankle have improved compared to yesterday NEURO: Awake alert and oriented Vital Signs (last 8hr) Date Time Temp Pulse Resp B/P (MAP) Pulse Ox O2 Delivery O2 Flow Rate FiO2 03/04/25 10:34 107/65 03/04/25 10:30 97 Room Air* 0 21 03/04/25 08:11 97.7 66 18 107/65 96 Room Air 03/04/25 05:18 97.5 62 18 108/59 98 Room Air LABS: Hematology Labs: Test 03/04/25 03:15 Range/Units White Blood Count 10.0 4.8-10.8 K/uL Red Blood Count 3.76 L 4.50-6.20 MIL/uL Hemoglobin 11.0 L 14.0-18.0 g/dL Hematocrit 34.1 L 42-54 % Mean Corpuscular Volume 90.7 79-99 fL Mean Corpuscular Hemoglobin 29.3 27.0-33.0 pg Mean Corpuscular Hemoglobin Concent 32.3 32.0-36.0 g/dL Red Cell Distribution Width 17.3 H 11.0-15.5 % Platelet Count 380 130-400 K/uL Mean Platelet Volume 10.3 7.5-10.5 fL Immature Granulocyte % (Auto) 0.7 0-1 % Neutrophils (%) (Auto) 59.1 40.0-77.0 % Lymphocytes (%) (Auto) 24.3 21.0-51.0 % Monocytes (%) (Auto) 12.2 3.0-13.0 % Eosinophils (%) (Auto) 3.1 0.0-8.0 % Basophils (%) (Auto) 0.6 0.0-5.0 % Neutrophils # (Auto) 5.9 1.8-7.7 K/uL Lymphocytes # (Auto) 2.4 1.0-4.8 K/uL Monocytes # (Auto) 1.2 H 0.1-1.0 K/uL Eosinophils # (Auto) 0.31 0.00-0.70 K/uL Basophils # (Auto) 0.06 0.00-0.20 K/uL Absolute Immature Granulocyte (auto 0.07 0-1 K/uL Nucleated Red Blood Cells 0.0 0.0-0.19 % Chemistry Labs: Test 03/04/25 12:06 03/04/25 03:15 03/03/25 03:19 Range/Units Whole Blood Glucose 202 H 70-110 MG/DL Sodium Level 136 136-145 mmol/L Potassium Level 4.0 3.5-5.1 mmol/L Chloride Level 101 101-111 mmol/L Carbon Dioxide Level 26 21-32 mmol/L Blood Urea Nitrogen 20 H 7-18 mg/dL Creatinine 1.2 0.5-1.3 mg/dL Glomerular Filtration Rate Calc 63 >90 mL/min Random Glucose 140 H 70-105 mg/dL Total Calcium 8.7 8.5-10.1 mg/dL Magnesium Level 2.00 1.80-2.40 mg/dL B-Type Natriuretic Peptide 462 H 0-100 pg/mL DIAGNOSTICS / RADIOLOGY RESULTS: [ ] NEURO: Minimize central acting medications as possible. Maintain fall precautions, adequate lighting during the day PULMONARY: Supplemental 02 as needed. Maintain aspiration precautions at all times CARDIOVASCULAR: Follow hemodynamics. Vital signs per facility protocol GI & NUTRITION: Continue with nutritional support. Continue stool softeners and laxatives as needed. KIDNEYS & ELECTROLYTES: Strict monitoring of intake, output and overall fluid balance. Avoid nephrotoxic medications to the extent possible. Medications to be dosed according to renal function. Monitor electrolytes and replace as needed ENDOCRINE: Maintain blood glucose between 100-180 at all times. Hypoglycemia protocol in place INFECTIOUS DISEASE: Trend temperature, WBC and procalcitonin level Follow cultures, deescalate antibiotics as soon as possible. Panculture if new onset fever ONCOLOGY/HEMATOLOGY/COAGULATION: Monitor for s/s of bleeding Monitor hemoglobin, coagulation studies as needed SKIN: Pressure ulcer prevention per facility protocol Specialty mattress ORTHO/REHAB: Continue PT/OT Prophylaxis: Continue GI and DVT prophylaxis Code Status: Full Resuscitation Disposition: as per cardiovascular MAGGIE JARRELL PAC Mar 04, 2025 13:17
--- NOTE | 2025-03-04 20:21 | PN ---
Endocrinology progress note DOS: 03/04/25 subjective: glucose are improving/stable and s/p CABG procedure and s/p removal of impella. Home diabetic regimen: metformin 500 mg bid, Hba1c 13.9% s/p thoracentesis. insulin has already been adjusted PAST MEDICAL HISTORY: [ Diabetes, hyperlipidemia, MS/coronary artery disease ] PAST SURGICAL HISTORY: [ Cardiac stent, cholecystectomy and left inguinal hernia repair ] PAST SOCIAL HISTORY: [ Patient lives with . Patient admits he drinks two beer yesterday. Patient reports he occasional drinks alcohol denies cigarette and recreational drug use. ] FAMILY HISTORY: [ Diabetes, cardiovascular disease, asthma and cancer ] Coded Allergies: No Known Drug Allergies (Unverified Allergy, Unknown, 08/31/15) ASSESSMENT: Hyperglycemia secondary to uncontrolled diabetes POA improving Home diabetic regimen: metformin 500 mg bid, Hba1c 13.9% glucose is improving. NSTEMI POA s/p CABG triple vessel disease s/p CABG hospital acquired pneumonia Hyperlipidemia POA Obesity POA MS/Coronary artery disease with cardiac stent POA PLAN: OFF insulin drip continue lantus 15 units daily. off regular insulin. Continue medium dose sliding scale insulin. Monitor glucose q x 6 hourly. Keep glucose less than 180 mg/dl. Patient will need insulin at discharge Vitals/Labs Vital Signs Date Time Temp Pulse Resp B/P (MAP) Pulse Ox O2 Delivery O2 Flow Rate FiO2 03/04/25 20:00 98.1 62 18 101/54 94 Room Air 03/04/25 10:30 0 21 Laboratory Tests 03/04/25 03:15 Medications Current Medications Sodium Chloride 1,000 ml @ 0 mls/hr ONCE ONCE IV; Start 02/10/25 at 01:00; Stop 02/10/25 at 00:46; Status DC Sodium Chloride 500 ml @ 0 mls/hr ONCE ONCE IV Last administered on 02/10/25at 00:53; Start 02/10/25 at 01:00; Stop 02/10/25 at 01:01; Status DC Insulin Human Regular 5 unit ONCE ONCE IV Last administered on 02/10/25at 01:30; Start 02/10/25 at 01:30; Stop 02/10/25 at 01:31; Status DC Aspirin 325 mg ONCE ONCE PO Last administered on 02/10/25at 02:32; Start 02/10/25 at 02:30; Stop 02/10/25 at 02:31; Status DC Heparin Sodium/ Dextrose 250 ml @ 0 mls/hr PROTOCOL IV Last administered on 02/10/25at 03:00; Start 02/10/25 at 03:00; Stop 02/10/25 at 17:22; Status DC Heparin Sodium (Porcine) 7,000 unit ONCE ONCE SQ Last administered on 02/10/25at 02:55; Start 02/10/25 at 03:00; Stop 02/10/25 at 03:01; Status DC Acetaminophen 650 mg Q6H PRN PO Last administered on 02/12/25at 17:13; Start 02/10/25 at 05:00; Stop 02/14/25 at 10:17; Status DC Acetaminophen 650 mg Q4H PRN PO; Start 02/10/25 at 05:00; Stop 02/14/25 at 10:05; Status DC Ondansetron HCl 4 mg Q6H PRN IV; Start 02/10/25 at 05:00; Stop 02/14/25 at 10:17; Status DC Nitroglycerin 0.4 mg PROTOCOL PRN SL; Start 02/10/25 at 05:00; Stop 02/14/25 at 09:59; Status DC Famotidine 20 mg DAILY PO Last administered on 02/13/25at 10:53; Start 02/10/25 at 09:00; Stop 02/14/25 at 09:59; Status DC Sodium Chloride 1,000 ml @ 100 mls/hr Q10H IV Last administered on 02/10/25at 14:20; Start 02/10/25 at 05:00; Stop 02/10/25 at 17:22; Status DC Insulin Human Regular INSULIN SLIDING SCAL... Q4H SQ Last administered on 02/10/25at 09:15; Start 02/10/25 at 05:00; Stop 02/10/25 at 11:10; Status DC Dextrose 50 ml AD PRN IV; Start 02/10/25 at 05:00; Stop 02/14/25 at 10:17; Status DC Glucagon 1 mg AD PRN IM; Start 02/10/25 at 05:00; Stop 02/14/25 at 10:17; Status DC Magnesium Sulfate 50 ml @ 0 mls/hr PROTOCOL PRN IV Last administered on 02/12/25at 07:13; Start 02/10/25 at 05:00; Stop 02/14/25 at 10:17; Status DC Potassium Chloride 100 ml @ 100 mls/hr AD PRN IV Last administered on 02/15/25at 05:43; Start 02/10/25 at 05:00; Stop 02/15/25 at 06:27; Status DC Potassium Chloride 20 meq AD PRN PO Last administered on 02/25/25at 09:30; Start 02/10/25 at 05:00; Stop 03/12/25 at 04:59 Potassium Chloride 20 meq AD PRN PO Last administered on 02/18/25at 20:18; Start 02/10/25 at 05:00; Stop 03/12/25 at 04:59 Aspirin 81 mg DAILY PO Last administered on 03/04/25at 10:29; Start 02/10/25 at 09:00; Stop 03/12/25 at 08:59 Insulin Human Regular INSULIN SLIDING SCAL... Q6H6 SQ Last administered on 02/11/25at 17:29; Start 02/10/25 at 12:00; Stop 02/14/25 at 09:59; Status DC Clopidogrel Bisulfate 600 mg ONCE PO Last administered on 02/10/25at 14:19; Start 02/10/25 at 14:00; Stop 02/10/25 at 17:22; Status DC Aspirin 325 mg ONCE PO Last administered on 02/10/25at 14:32; Start 02/10/25 at 14:30; Stop 02/10/25 at 17:22; Status DC Sacubitril/ Valsartan 0.5 each BID PO Last administered on 02/13/25at 21:11; Start 02/10/25 at 21:00; Stop 02/14/25 at 09:59; Status DC Empaglifozin 10 mg DAILY PO Last administered on 02/13/25at 10:52; Start 02/10/25 at 14:30; Stop 02/14/25 at 09:59; Status DC Spironolactone 25 mg DAILY PO Last administered on 02/13/25at 10:52; Start 02/10/25 at 14:30; Stop 02/14/25 at 09:59; Status DC Furosemide 20 mg ONCE IV Last administered on 02/10/25at 17:00; Start 02/10/25 at 17:00; Stop 02/10/25 at 21:00; Status DC Furosemide 20 mg ONCE IV; Start 02/11/25 at 09:00; Stop 02/11/25 at 07:43; Status DC Lidocaine HCl 20 ml STK-MED ONCE .ROUTE; Start 02/10/25 at 15:22; Stop 02/10/25 at 15:23; Status DC Iohexol 35,000 mg STK-MED ONCE IV; Start 02/10/25 at 15:22; Stop 02/10/25 at 15:23; Status DC Iohexol 50 ml STK-MED ONCE IV; Start 02/10/25 at 15:22; Stop 02/10/25 at 15:23; Status DC Heparin Sodium (Porcine) 10,000 unit STK-MED ONCE .ROUTE; Start 02/10/25 at 15:23; Stop 02/10/25 at 15:23; Status DC Heparin Sodium/ Sodium Chloride 1,000 ml @ As Directed STK-MED ONCE IV; Start 02/10/25 at 15:23; Stop 02/10/25 at 15:23; Status DC Nitroglycerin 50 mg STK-MED ONCE .ROUTE; Start 02/10/25 at 15:23; Stop 02/10/25 at 15:23; Status DC Heparin Sodium/ Sodium Chloride 500 ml @ As Directed STK-MED ONCE IV; Start 02/10/25 at 15:35; Stop 02/10/25 at 15:35; Status DC Fentanyl Citrate 100 mcg STK-MED ONCE .ROUTE; Start 02/10/25 at 15:39; Stop 02/10/25 at 15:40; Status DC Midazolam HCl 2 mg STK-MED ONCE .ROUTE; Start 02/10/25 at 15:40; Stop 02/10/25 at 15:40; Status DC Bivalirudin 250 mg STK-MED ONCE IV; Start 02/10/25 at 16:15; Stop 02/10/25 at 16:15; Status DC Heparin Sodium (Porcine) 7,000 unit ONCE ONCE IV Last administered on 02/11/25at 05:46; Start 02/11/25 at 05:30; Stop 02/11/25 at 05:31; Status DC Heparin Sodium/ Dextrose 250 ml @ 0 mls/hr Q6H IV Last administered on 02/13/25at 13:01; Start 02/11/25 at 06:30; Stop 02/14/25 at 09:59; Status DC Clopidogrel Bisulfate 75 mg DAILY PO; Start 02/11/25 at 09:00; Stop 02/11/25 at 07:28; Status DC Insulin Glargine 15 units DAILY08 SQ Last administered on 02/12/25at 08:54; Start 02/11/25 at 08:00; Stop 02/13/25 at 05:24; Status DC Furosemide 20 mg DAILY PO Last administered on 02/13/25at 10:52; Start 02/11/25 at 09:00; Stop 02/14/25 at 09:59; Status DC Insulin Human Regular 3 unit TIDAC SQ Last administered on 02/12/25at 16:31; Start 02/12/25 at 07:30; Stop 02/14/25 at 09:59; Status DC Metoprolol Tartrate 12.5 mg BID PO Last administered on 02/14/25at 06:44; Start 02/12/25 at 09:00; Stop 02/14/25 at 09:59; Status DC Potassium Chloride 40 meq BID ONCE PO; Start 02/12/25 at 21:00; Stop 02/12/25 at 21:01; Status DC Magnesium Chloride 64 mg Q8H6 ONCE PO; Start 02/12/25 at 14:00; Stop 02/12/25 at 14:01; Status DC Heparin Sodium (Porcine) *calculation based on ACTUAL B... AD PRN IV Last administered on 02/12/25at 20:16; Start 02/12/25 at 21:00; Stop 02/14/25 at 09:59; Status DC Insulin Glargine 12 units DAILY08 SQ Last administered on 02/13/25at 10:51; Start 02/13/25 at 08:00; Stop 02/14/25 at 09:59; Status DC Cefazolin Sodium 2 gm ONCALL IVP Last administered on 02/14/25at 08:50; Start 02/13/25 at 20:00; Stop 02/14/25 at 18:51; Status DC Epinephrine HCl 10 mg/Sodium Chloride 250 ml @ 0 mls/hr AD PRN IV Last administered on 02/20/25at 17:32; Start 02/14/25 at 06:30; Stop 03/16/25 at 06:29 Norepinephrine Bitartrate 250 ml @ 0 mls/hr AD PRN IV Last administered on 02/17/25at 01:06; Start 02/14/25 at 06:30; Stop 03/16/25 at 06:29 Aminocaproic Acid 41679 mg/Sodium Chloride 480 ml @ 0 mls/hr AD PRN IV; Start 02/14/25 at 06:30; Stop 02/23/25 at 11:52; Status DC Epinephrine HCl 10 mg/Sodium Chloride 250 ml @ 0 mls/hr AD PRN IV; Start 02/14/25 at 07:00; Stop 02/14/25 at 06:51; Status DC Norepinephrine Bitartrate 250 ml @ 0 mls/hr AD PRN IV; Start 02/14/25 at 07:00; Stop 02/14/25 at 06:51; Status DC Aminocaproic Acid 31114 mg/Sodium Chloride 480 ml @ 0 mls/hr AD PRN IV; Start 02/14/25 at 07:00; Stop 02/14/25 at 06:51; Status DC Cefazolin Sodium 2 gm STK-MED ONCE .ROUTE; Start 02/14/25 at 06:53; Stop 02/14/25 at 06:53; Status DC Nitroglycerin/ Dextrose 1 ml @ As Directed STK-MED ONCE .ROUTE; Start 02/14/25 at 07:00; Stop 02/14/25 at 07:00; Status DC Cefazolin Sodium 1 gm STK-MED ONCE .ROUTE Last administered on 02/14/25at 10:09; Start 02/14/25 at 07:37; Stop 02/14/25 at 07:38; Status DC Heparin Sodium/ Sodium Chloride 500 ml @ As Directed STK-MED ONCE IV; Start 02/14/25 at 07:38; Stop 02/14/25 at 07:38; Status DC Papaverine HCl 60 mg STK-MED ONCE .ROUTE Last administered on 02/14/25at 10:10; Start 02/14/25 at 07:38; Stop 02/14/25 at 07:38; Status DC Midazolam HCl 2 mg STK-MED ONCE .ROUTE; Start 02/14/25 at 08:14; Stop 02/14/25 at 08:14; Status DC Ketamine HCl 500 mg STK-MED ONCE IJ; Start 02/14/25 at 08:16; Stop 02/14/25 at 08:16; Status DC Protamine Sulfate 250 mg STK-MED ONCE IV; Start 02/14/25 at 08:17; Stop 02/14/25 at 08:17; Status DC Lidocaine HCl 100 mg STK-MED ONCE .ROUTE; Start 02/14/25 at 08:17; Stop 02/14/25 at 08:17; Status DC Heparin Sodium (Porcine) 10,000 unit STK-MED ONCE .ROUTE; Start 02/14/25 at 08:17; Stop 02/14/25 at 08:17; Status DC Epinephrine HCl 1 mg STK-MED ONCE .ROUTE; Start 02/14/25 at 08:17; Stop 02/14/25 at 08:17; Status DC Sodium Bicarbonate 200 ml @ As Directed STK-MED ONCE .ROUTE; Start 02/14/25 at 08:17; Stop 02/14/25 at 08:17; Status DC Norepinephrine Bitartrate 4 mg STK-MED ONCE IV; Start 02/14/25 at 08:17; Stop 02/14/25 at 08:17; Status DC Propofol 200 mg STK-MED ONCE IV; Start 02/14/25 at 08:19; Stop 02/14/25 at 08:19; Status DC Fentanyl Citrate 1,000 mcg STK-MED ONCE IJ; Start 02/14/25 at 08:19; Stop 02/14/25 at 08:19; Status DC Midazolam HCl 2 mg STK-MED ONCE .ROUTE; Start 02/14/25 at 08:20; Stop 02/14/25 at 08:20; Status DC Rocuronium [place] 50 mg STK-MED ONCE .ROUTE; Start 02/14/25 at 08:20; Stop 02/14/25 at 08:20; Status DC Acetaminophen 1,000 mg Q6H6 IV Last administered on 02/15/25at 12:14; Start 02/14/25 at 14:00; Stop 02/15/25 at 13:59; Status DC Aspirin 81 mg ONCE ONCE NG Last administered on 02/14/25at 13:56; Start 02/14/25 at 14:00; Stop 02/14/25 at 14:01; Status DC Docusate Sodium 100 mg BID PO Last administered on 03/04/25at 10:29; Start 02/14/25 at 21:00; Stop 03/16/25 at 20:59 Lactulose 20 gm BID PRN PO Last administered on 02/28/25at 15:56; Start 02/14/25 at 10:00; Stop 03/16/25 at 09:59 Furosemide 20 mg Q12H PO Last administered on 02/16/25at 08:19; Start 02/16/25 at 09:00; Stop 02/16/25 at 10:21; Status DC Furosemide 20 mg Q12H IV Last administered on 02/15/25at 20:16; Start 02/15/25 at 09:00; Stop 02/16/25 at 08:59; Status DC Atorvastatin Calcium 40 mg HS PO Last administered on 03/03/25at 21:51; Start 02/14/25 at 21:00; Stop 03/16/25 at 20:59 Enoxaparin Sodium 30 mg DAILY SQ Last administered on 03/04/25at 10:32; Start 02/17/25 at 09:00; Stop 03/19/25 at 08:59 Metoprolol Tartrate 12.5 mg BID PO; Start 02/16/25 at 09:00; Stop 02/20/25 at 09:01; Status DC Magnesium Hydroxide 30 ml DAILY PRN PO; Start 02/14/25 at 10:00; Stop 03/16/25 at 09:59 Dexmedetomidine/ Sodium Chloride 400 mcg PROTOCOL IV; Start 02/14/25 at 10:00; Stop 02/15/25 at 09:59; Status DC Acetaminophen 650 mg Q6H PRN PO; Start 02/14/25 at 10:00; Stop 03/16/25 at 09:59 Heparin Sodium (Porcine) 10,000 unit STK-MED ONCE .ROUTE; Start 02/14/25 at 10:00; Stop 02/14/25 at 10:00; Status DC Sodium Chloride 1,000 ml @ 10 mls/hr ONCE IV; Start 02/14/25 at 10:00; Stop 02/15/25 at 09:59; Status DC Sodium Chloride 10 ml Q8H PRN IVP; Start 02/14/25 at 10:00; Stop 03/16/25 at 09:59 Morphine Sulfate 0.5 mg Q2H PRN IV; Start 02/14/25 at 10:00; Stop 02/15/25 at 09:59; Status DC Morphine Sulfate 1 mg Q2H PRN IV Last administered on 02/14/25at 14:23; Start 02/14/25 at 10:30; Stop 02/19/25 at 13:29; Status DC Acetaminophen 650 mg Q4H PRN RC; Start 02/14/25 at 10:00; Stop 02/23/25 at 11:52; Status DC Ondansetron HCl 4 mg Q6H PRN IV; Start 02/14/25 at 10:00; Stop 03/16/25 at 09:59 Sodium Chloride 500 ml @ 0 mls/hr AD IV; Start 02/14/25 at 10:00; Stop 03/16/25 at 09:59 Nitroglycerin/ Dextrose 0 ml @ 0 mls/hr AD IV; Start 02/14/25 at 10:00; Stop 02/17/25 at 09:59; Status DC Propofol 100 ml @ 0 mls/hr AD PRN IV; Start 02/14/25 at 10:00; Stop 02/18/25 at 09:59; Status DC Norepinephrine Bitartrate 8 mg/ Dextrose 250 ml @ 0 mls/hr AD PRN IV; Start 02/14/25 at 10:00; Stop 02/14/25 at 10:14; Status DC Epinephrine HCl 10 mg/Sodium Chloride 250 ml @ 0 mls/hr AD PRN IV; Start 02/14/25 at 10:00; Stop 02/14/25 at 10:14; Status DC Aminocaproic Acid 94084 mg/Sodium Chloride 310 ml @ 25 mls/hr AD IV; Start 02/14/25 at 10:00; Stop 02/14/25 at 10:19; Status DC Calcium Gluconate 1 gm/Sodium Chloride 60 ml @ 200 mls/hr AD PRN IV Last administered on 02/21/25at 08:36; Start 02/14/25 at 10:00; Stop 03/16/25 at 09:59 Magnesium Sulfate 50 ml @ 12.5 mls/hr AD PRN IV Last administered on 02/24/25at 08:17; Start 02/14/25 at 10:00; Stop 03/16/25 at 09:59 Potassium Chloride 100 ml @ 100 mls/hr AD PRN IV Last administered on 02/21/25at 16:43; Start 02/14/25 at 10:00; Stop 03/16/25 at 09:59 Potassium Phosphate 250 ml @ 42 mls/hr AD PRN IV; Start 02/14/25 at 10:00; Stop 03/16/25 at 09:59 Albumin Human 250 ml @ 0 mls/hr AD PRN IV Last administered on 02/14/25at 14:42; Start 02/14/25 at 10:00; Stop 02/14/25 at 14:42; Status DC Acetaminophen 650 mg Q4H PRN PO; Start 02/14/25 at 10:00; Stop 03/16/25 at 09:59 Insulin Human Regular 100 unit/ Sodium Chloride 100 ml @ 0 mls/hr AD IV Last administered on 02/15/25at 06:30; Start 02/14/25 at 10:00; Stop 02/16/25 at 09:59; Status DC Cefazolin Sodium 2 gm Q8H IVPB Last administered on 02/15/25at 06:25; Start 02/14/25 at 15:00; Stop 02/15/25 at 07:01; Status DC Tramadol HCl 25 mg Q6H PRN PO; Start 02/14/25 at 10:00; Stop 02/19/25 at 09:59; Status DC Tramadol HCl 50 mg Q6H PRN PO; Start 02/14/25 at 10:00; Stop 02/19/25 at 09:59; Status DC Famotidine 20 mg BID IV Last administered on 02/15/25at 20:15; Start 02/14/25 at 21:00; Stop 02/16/25 at 07:58; Status DC Sodium Bicarbonate 50 meq AD PRN IV Last administered on 02/16/25at 15:25; Start 02/14/25 at 10:00; Stop 02/17/25 at 09:59; Status DC Dextrose 50 ml AD PRN IV; Start 02/14/25 at 10:00; Stop 03/16/25 at 09:59 Glucagon 1 mg AD PRN IM; Start 02/14/25 at 10:00; Stop 03/16/25 at 09:59 Dobutamine HCl 250 mg STK-MED ONCE .ROUTE; Start 02/14/25 at 10:28; Stop 02/14/25 at 10:28; Status DC Sodium Bicarbonate 50 ml @ As Directed STK-MED ONCE .ROUTE; Start 02/14/25 at 10:52; Stop 02/14/25 at 10:52; Status DC Sodium Bicarbonate 200 ml @ As Directed STK-MED ONCE .ROUTE; Start 02/14/25 at 10:53; Stop 02/14/25 at 10:53; Status DC Vasopressin 20 units STK-MED ONCE .ROUTE; Start 02/14/25 at 11:51; Stop 02/14/25 at 11:51; Status DC Rocuronium [place] 50 mg STK-MED ONCE .ROUTE; Start 02/14/25 at 12:14; Stop 02/14/25 at 12:14; Status DC Sodium Bicarbonate 100 ml @ As Directed STK-MED ONCE .ROUTE; Start 02/14/25 at 12:16; Stop 02/14/25 at 12:16; Status DC Vasopressin 40 units/Sodium Chloride 40 ml @ 0 mls/hr PROTOCOL IV Last administered on 02/14/25at 22:11; Start 02/14/25 at 13:00; Stop 03/16/25 at 12:59 Albumin Human 250 ml @ 0 mls/hr AD IV Last administered on 02/18/25at 10:27; Start 02/14/25 at 15:30; Stop 02/18/25 at 10:40; Status DC Calcium Gluconate 2 gm/Sodium Chloride 100 ml @ 0 mls/hr ONCE ONCE IV Last administered on 02/14/25at 16:15; Start 02/14/25 at 16:30; Stop 02/14/25 at 16:31; Status DC Pharmacy Profile Note 1 each ONCE MISC; Start 02/14/25 at 18:00; Stop 02/14/25 at 18:27; Status DC Sodium Bicarbonate 25 meq/Dextrose 1,025 ml @ 0 mls/hr Q0M IV Last administered on 02/18/25at 13:03; Start 02/14/25 at 18:00; Stop 03/16/25 at 17:59 Famotidine 20 mg BID PO Last administered on 02/16/25at 20:03; Start 02/16/25 at 09:00; Stop 02/17/25 at 07:09; Status DC Insulin Human Regular INSULIN SLIDING SCAL... ACHS SQ Last administered on 02/27/25at 21:34; Start 02/16/25 at 11:30; Stop 02/28/25 at 05:39; Status DC Cefepime HCl 1 gm Q12H IVPB Last administered on 02/19/25at 22:54; Start 02/16/25 at 10:30; Stop 02/20/25 at 08:16; Status DC Furosemide 100 mg/ Sodium Chloride 100 ml @ 0 mls/hr PROTOCOL IV Last administered on 02/19/25at 11:35; Start 02/16/25 at 10:30; Stop 02/20/25 at 09:01; Status DC Vancomycin HCl 500 ml @ 250 mls/hr ONCE ONCE IV Last administered on 02/16/25at 11:39; Start 02/16/25 at 12:00; Stop 02/16/25 at 13:59; Status DC Sodium Chloride 4 ml STK-MED ONCE IH Last administered on 02/16/25at 10:53; Start 02/16/25 at 10:44; Stop 02/16/25 at 10:44; Status DC Sodium Chloride 4 ml STK-MED ONCE IH Last administered on 02/16/25at 14:33; Start 02/16/25 at 14:26; Stop 02/16/25 at 14:26; Status DC Sodium Chloride 4 ml STK-MED ONCE IH Last administered on 02/16/25at 19:16; Start 02/16/25 at 18:32; Stop 02/16/25 at 18:32; Status DC Famotidine 20 mg DAILY PO Last administered on 03/04/25at 10:31; Start 02/17/25 at 09:00; Stop 03/18/25 at 08:59 Latanoprost 1 DROP FOR EACH EYE HS OP Last administered on 03/03/25at 22:00; Start 02/17/25 at 21:00; Stop 03/19/25 at 20:59 Home Med (Brimonidine-Timolol 0.2%/0.5% EYE DROPS) DAILY OP Last administered on 03/04/25at 10:35; Start 02/18/25 at 09:00; Stop 03/20/25 at 08:59 Albumin Human 250 ml @ 0 mls/hr AD IV; Start 02/18/25 at 10:30; Stop 02/20/25 at 09:03; Status DC Vancomycin HCl 1 each AD IV; Start 02/18/25 at 11:00; Stop 02/24/25 at 12:15; Status DC Vancomycin HCl 250 ml @ 125 mls/hr Q12H IV Last administered on 02/19/25at 11:20; Start 02/18/25 at 11:30; Stop 02/21/25 at 05:33; Status DC Potassium Chloride 20 meq BID PO Last administered on 03/04/25at 10:31; Start 02/19/25 at 10:30; Stop 03/21/25 at 10:29 Dexmedetomidine/ Sodium Chloride 400 mcg STK-MED ONCE IV Last administered on 02/20/25at 07:08; Start 02/20/25 at 07:00; Stop 02/20/25 at 07:00; Status DC Dexmedetomidine/ Sodium Chloride 400 mcg PROTOCOL IV Last administered on 02/22/25at 05:51; Start 02/20/25 at 07:30; Stop 02/22/25 at 15:01; Status DC Carvedilol 3.125 mg BID PO; Start 02/20/25 at 21:00; Stop 02/24/25 at 06:13; Status DC Spironolactone 25 mg DAILY PO Last administered on 03/04/25at 10:29; Start 02/20/25 at 09:00; Stop 03/22/25 at 08:59 Empaglifozin 10 mg DAILY PO Last administered on 02/22/25at 09:38; Start 02/20/25 at 09:00; Stop 02/22/25 at 15:01; Status DC Albumin Human 50 ml @ 0 mls/hr Q12H9 IV Last administered on 02/24/25at 08:15; Start 02/20/25 at 09:00; Stop 02/24/25 at 08:42; Status DC Furosemide 20 mg Q12H IV Last administered on 02/25/25at 21:27; Start 02/20/25 at 09:00; Stop 02/26/25 at 09:43; Status DC Pharmacy Profile Note 1 each ONCE MISC; Start 02/20/25 at 11:30; Stop 02/20/25 at 11:19; Status DC Piperacillin Sod/ Tazobactam Sod 50 ml @ 12.5 mls/hr Q8H IVPB Last administered on 02/24/25at 11:45; Start 02/20/25 at 11:30; Stop 02/24/25 at 18:10; Status DC Vancomycin HCl 250 ml @ 125 mls/hr Q24H IV Last administered on 02/23/25at 06:28; Start 02/21/25 at 06:00; Stop 02/24/25 at 05:57; Status DC Insulin Glargine 10 units DAILY SQ Last administered on 02/22/25at 11:54; Start 02/21/25 at 09:00; Stop 02/22/25 at 19:17; Status DC Calcium Gluconate 1 gm STK-MED ONCE .ROUTE; Start 02/21/25 at 08:34; Stop 02/21/25 at 08:34; Status DC Etomidate 20 mg STK-MED ONCE .ROUTE; Start 02/21/25 at 12:27; Stop 02/21/25 at 12:28; Status DC Fentanyl Citrate 100 mcg STK-MED ONCE .ROUTE; Start 02/21/25 at 12:30; Stop 02/21/25 at 12:30; Status DC Rocuronium [place] 50 mg STK-MED ONCE .ROUTE; Start 02/21/25 at 12:30; Stop 02/21/25 at 12:30; Status DC Lidocaine HCl 20 ml STK-MED ONCE .ROUTE; Start 02/21/25 at 12:31; Stop 02/21/25 at 12:31; Status DC Cefazolin Sodium 1 gm STK-MED ONCE .ROUTE; Start 02/21/25 at 12:31; Stop 02/21/25 at 12:32; Status DC Bupivacaine HCl 2.5 mg STK-MED ONCE IJ; Start 02/21/25 at 12:32; Stop 02/21/25 at 12:32; Status DC Propofol 200 mg STK-MED ONCE IV; Start 02/21/25 at 12:35; Stop 02/21/25 at 12:35; Status DC Lidocaine HCl 100 mg STK-MED ONCE .ROUTE; Start 02/21/25 at 12:46; Stop 02/21/25 at 12:46; Status DC Cefazolin Sodium 1 gm STK-MED ONCE .ROUTE; Start 02/21/25 at 12:51; Stop 02/21/25 at 12:51; Status DC Rocuronium [place] 50 mg STK-MED ONCE .ROUTE; Start 02/21/25 at 13:03; Stop 02/21/25 at 13:03; Status DC Cefazolin Sodium 2 gm STK-MED ONCE IVPB Last administered on 02/21/25at 12:53; Start 02/21/25 at 12:53; Stop 02/21/25 at 14:14; Status DC Lidocaine HCl 20 ml STK-MED ONCE INJ Last administered on 02/21/25at 12:18; Start 02/21/25 at 12:18; Stop 02/21/25 at 14:14; Status DC Bupivacaine HCl 75 mg STK-MED ONCE IJ Last administered on 02/21/25at 12:18; Start 02/21/25 at 12:18; Stop 02/21/25 at 14:14; Status DC Insulin Glargine 12 units DAILY SQ Last administered on 02/27/25at 17:30; Start 02/23/25 at 09:00; Stop 02/28/25 at 05:39; Status DC Dexmedetomidine/ Sodium Chloride 400 mcg PROTOCOL IV Last administered on 02/23/25at 00:17; Start 02/23/25 at 00:00; Stop 03/25/25 at 00:00 Midodrine 10 mg TID PO Last administered on 03/04/25at 14:07; Start 02/23/25 at 14:00; Stop 03/25/25 at 13:59 Prednisone 20 mg DAILY PO Last administered on 02/26/25at 09:50; Start 02/23/25 at 12:30; Stop 02/26/25 at 13:00; Status DC Vancomycin HCl 250 ml @ 125 mls/hr Q24H IV Last administered on 02/24/25at 06:26; Start 02/24/25 at 06:30; Stop 02/24/25 at 12:15; Status DC Carvedilol 3.125 mg BID PO Last administered on 03/04/25at 10:34; Start 02/24/25 at 09:00; Stop 03/26/25 at 08:59 Empaglifozin 10 mg DAILY PO Last administered on 02/24/25at 08:47; Start 02/24/25 at 09:00; Stop 02/24/25 at 13:01; Status DC Piperacillin Sod/ Tazobactam Sod 50 ml @ 12.5 mls/hr Q8H6 IVPB Last administered on 03/04/25at 14:07; Start 02/24/25 at 22:00; Stop 03/06/25 at 21:59 Furosemide 40 mg Q12H IV Last administered on 03/01/25at 09:28; Start 02/26/25 at 10:00; Stop 03/01/25 at 11:00; Status DC Insulin Glargine 15 units DAILY SQ Last administered on 03/04/25at 10:40; Start 02/28/25 at 09:00; Stop 03/30/25 at 08:59 Insulin Human Regular INSULIN SLIDING SCAL... ACHS SQ Last administered on 03/04/25at 12:39; Start 02/28/25 at 07:30; Stop 03/30/25 at 07:29 Furosemide 20 mg Q12H IV Last administered on 03/04/25at 10:32; Start 03/01/25 at 22:00; Stop 03/31/25 at 21:59 EUGENE ZARATE MD Mar 04, 2025 20:21
[2025-03-05] VITALS (8 sets, daily range): BP systolic 92–115; BP diastolic 47–61; PULSE 56–71; RESP 18–19; TEMP 97.7–98.2; O2SAT 95–97
[2025-03-05 03:55] LABS: IMMATURE GRANULOCYTE ABSOLUTE 0.05 K/uL (0-1); NUCLEATED RED BLOOD CELLS 0.0 % (0.0-0.19); PLATELET COUNT (AUTO) 329 K/uL (130-400); RED BLOOD CELL COUNT(AUTO) 3.64 MIL/uL (4.50-6.20); RED CELL DISTRIBUTION WIDTH 17.2 % (11.0-15.5); WHITE BLOOD COUNT (AUTO) 8.8 K/uL (4.8-10.8)
[2025-03-05 04:09] LABS: CREATININE 1.3 mg/dL (0.5-1.3); GLOMERULAR FILTR. RATE CALC 57.0 mL/min (>90); GLUCOSE,RANDOM 135.0 mg/dL (70-105); SODIUM SERUM 138.0 mmol/L (136-145); UREA NITROGEN, BLOOD 19.0 mg/dL (7-18)
--- NOTE | 2025-03-05 11:23 | PN ---
Endocrinology progress note DOS: 03/05/25 subjective: glucose are improving/stable and s/p CABG procedure and s/p removal of impella. Home diabetic regimen: metformin 500 mg bid, Hba1c 13.9% s/p thoracentesis. insulin has already been adjusted PAST MEDICAL HISTORY: [ Diabetes, hyperlipidemia, GA/coronary artery disease ] PAST SURGICAL HISTORY: [ Cardiac stent, cholecystectomy and left inguinal hernia repair ] PAST SOCIAL HISTORY: [ Patient lives with . Patient admits he drinks two beer yesterday. Patient reports he occasional drinks alcohol denies cigarette and recreational drug use. ] FAMILY HISTORY: [ Diabetes, cardiovascular disease, asthma and cancer ] Coded Allergies: No Known Drug Allergies (Unverified Allergy, Unknown, 08/31/15) ASSESSMENT: Hyperglycemia secondary to uncontrolled diabetes POA improving Home diabetic regimen: metformin 500 mg bid, Hba1c 13.9% glucose is improving. NSTEMI POA s/p CABG triple vessel disease s/p CABG hospital acquired pneumonia Hyperlipidemia POA Obesity POA GA/Coronary artery disease with cardiac stent POA PLAN: OFF insulin drip continue lantus 15 units daily. off regular insulin. Continue medium dose sliding scale insulin. Monitor glucose q x 6 hourly. Keep glucose less than 180 mg/dl. Patient will need insulin at discharge Vitals/Labs Vital Signs Date Time Temp Pulse Resp B/P (MAP) Pulse Ox O2 Delivery O2 Flow Rate FiO2 03/05/25 10:35 106/59 03/05/25 08:00 97.7 66 19 94 Room Air 03/04/25 19:20 0 21 Laboratory Tests 03/05/25 03:26 Medications Current Medications Sodium Chloride 1,000 ml @ 0 mls/hr ONCE ONCE IV; Start 02/10/25 at 01:00; Stop 02/10/25 at 00:46; Status DC Sodium Chloride 500 ml @ 0 mls/hr ONCE ONCE IV Last administered on 02/10/25at 00:53; Start 02/10/25 at 01:00; Stop 02/10/25 at 01:01; Status DC Insulin Human Regular 5 unit ONCE ONCE IV Last administered on 02/10/25at 01:30; Start 02/10/25 at 01:30; Stop 02/10/25 at 01:31; Status DC Aspirin 325 mg ONCE ONCE PO Last administered on 02/10/25at 02:32; Start 02/10/25 at 02:30; Stop 02/10/25 at 02:31; Status DC Heparin Sodium/ Dextrose 250 ml @ 0 mls/hr PROTOCOL IV Last administered on 02/10/25at 03:00; Start 02/10/25 at 03:00; Stop 02/10/25 at 17:22; Status DC Heparin Sodium (Porcine) 7,000 unit ONCE ONCE SQ Last administered on 02/10/25at 02:55; Start 02/10/25 at 03:00; Stop 02/10/25 at 03:01; Status DC Acetaminophen 650 mg Q6H PRN PO Last administered on 02/12/25at 17:13; Start 02/10/25 at 05:00; Stop 02/14/25 at 10:17; Status DC Acetaminophen 650 mg Q4H PRN PO; Start 02/10/25 at 05:00; Stop 02/14/25 at 10:05; Status DC Ondansetron HCl 4 mg Q6H PRN IV; Start 02/10/25 at 05:00; Stop 02/14/25 at 10:17; Status DC Nitroglycerin 0.4 mg PROTOCOL PRN SL; Start 02/10/25 at 05:00; Stop 02/14/25 at 09:59; Status DC Famotidine 20 mg DAILY PO Last administered on 02/13/25at 10:53; Start 02/10/25 at 09:00; Stop 02/14/25 at 09:59; Status DC Sodium Chloride 1,000 ml @ 100 mls/hr Q10H IV Last administered on 02/10/25at 14:20; Start 02/10/25 at 05:00; Stop 02/10/25 at 17:22; Status DC Insulin Human Regular INSULIN SLIDING SCAL... Q4H SQ Last administered on 02/10/25at 09:15; Start 02/10/25 at 05:00; Stop 02/10/25 at 11:10; Status DC Dextrose 50 ml AD PRN IV; Start 02/10/25 at 05:00; Stop 02/14/25 at 10:17; Status DC Glucagon 1 mg AD PRN IM; Start 02/10/25 at 05:00; Stop 02/14/25 at 10:17; Status DC Magnesium Sulfate 50 ml @ 0 mls/hr PROTOCOL PRN IV Last administered on 02/12/25at 07:13; Start 02/10/25 at 05:00; Stop 02/14/25 at 10:17; Status DC Potassium Chloride 100 ml @ 100 mls/hr AD PRN IV Last administered on 02/15/25at 05:43; Start 02/10/25 at 05:00; Stop 02/15/25 at 06:27; Status DC Potassium Chloride 20 meq AD PRN PO Last administered on 02/25/25at 09:30; Start 02/10/25 at 05:00; Stop 03/12/25 at 04:59 Potassium Chloride 20 meq AD PRN PO Last administered on 02/18/25at 20:18; Start 02/10/25 at 05:00; Stop 03/12/25 at 04:59 Aspirin 81 mg DAILY PO Last administered on 03/05/25at 10:34; Start 02/10/25 at 09:00; Stop 03/12/25 at 08:59 Insulin Human Regular INSULIN SLIDING SCAL... Q6H6 SQ Last administered on 02/11/25at 17:29; Start 02/10/25 at 12:00; Stop 02/14/25 at 09:59; Status DC Clopidogrel Bisulfate 600 mg ONCE PO Last administered on 02/10/25at 14:19; Start 02/10/25 at 14:00; Stop 02/10/25 at 17:22; Status DC Aspirin 325 mg ONCE PO Last administered on 02/10/25at 14:32; Start 02/10/25 at 14:30; Stop 02/10/25 at 17:22; Status DC Sacubitril/ Valsartan 0.5 each BID PO Last administered on 02/13/25at 21:11; Start 02/10/25 at 21:00; Stop 02/14/25 at 09:59; Status DC Empaglifozin 10 mg DAILY PO Last administered on 02/13/25at 10:52; Start 02/10/25 at 14:30; Stop 02/14/25 at 09:59; Status DC Spironolactone 25 mg DAILY PO Last administered on 02/13/25at 10:52; Start 02/10/25 at 14:30; Stop 02/14/25 at 09:59; Status DC Furosemide 20 mg ONCE IV Last administered on 02/10/25at 17:00; Start 02/10/25 at 17:00; Stop 02/10/25 at 21:00; Status DC Furosemide 20 mg ONCE IV; Start 02/11/25 at 09:00; Stop 02/11/25 at 07:43; Status DC Lidocaine HCl 20 ml STK-MED ONCE .ROUTE; Start 02/10/25 at 15:22; Stop 02/10/25 at 15:23; Status DC Iohexol 35,000 mg STK-MED ONCE IV; Start 02/10/25 at 15:22; Stop 02/10/25 at 15:23; Status DC Iohexol 50 ml STK-MED ONCE IV; Start 02/10/25 at 15:22; Stop 02/10/25 at 15:23; Status DC Heparin Sodium (Porcine) 10,000 unit STK-MED ONCE .ROUTE; Start 02/10/25 at 15:23; Stop 02/10/25 at 15:23; Status DC Heparin Sodium/ Sodium Chloride 1,000 ml @ As Directed STK-MED ONCE IV; Start 02/10/25 at 15:23; Stop 02/10/25 at 15:23; Status DC Nitroglycerin 50 mg STK-MED ONCE .ROUTE; Start 02/10/25 at 15:23; Stop 02/10/25 at 15:23; Status DC Heparin Sodium/ Sodium Chloride 500 ml @ As Directed STK-MED ONCE IV; Start 02/10/25 at 15:35; Stop 02/10/25 at 15:35; Status DC Fentanyl Citrate 100 mcg STK-MED ONCE .ROUTE; Start 02/10/25 at 15:39; Stop 02/10/25 at 15:40; Status DC Midazolam HCl 2 mg STK-MED ONCE .ROUTE; Start 02/10/25 at 15:40; Stop 02/10/25 at 15:40; Status DC Bivalirudin 250 mg STK-MED ONCE IV; Start 02/10/25 at 16:15; Stop 02/10/25 at 16:15; Status DC Heparin Sodium (Porcine) 7,000 unit ONCE ONCE IV Last administered on 02/11/25at 05:46; Start 02/11/25 at 05:30; Stop 02/11/25 at 05:31; Status DC Heparin Sodium/ Dextrose 250 ml @ 0 mls/hr Q6H IV Last administered on 02/13/25at 13:01; Start 02/11/25 at 06:30; Stop 02/14/25 at 09:59; Status DC Clopidogrel Bisulfate 75 mg DAILY PO; Start 02/11/25 at 09:00; Stop 02/11/25 at 07:28; Status DC Insulin Glargine 15 units DAILY08 SQ Last administered on 02/12/25at 08:54; Start 02/11/25 at 08:00; Stop 02/13/25 at 05:24; Status DC Furosemide 20 mg DAILY PO Last administered on 02/13/25at 10:52; Start 02/11/25 at 09:00; Stop 02/14/25 at 09:59; Status DC Insulin Human Regular 3 unit TIDAC SQ Last administered on 02/12/25at 16:31; Start 02/12/25 at 07:30; Stop 02/14/25 at 09:59; Status DC Metoprolol Tartrate 12.5 mg BID PO Last administered on 02/14/25at 06:44; Start 02/12/25 at 09:00; Stop 02/14/25 at 09:59; Status DC Potassium Chloride 40 meq BID ONCE PO; Start 02/12/25 at 21:00; Stop 02/12/25 at 21:01; Status DC Magnesium Chloride 64 mg Q8H6 ONCE PO; Start 02/12/25 at 14:00; Stop 02/12/25 at 14:01; Status DC Heparin Sodium (Porcine) *calculation based on ACTUAL B... AD PRN IV Last administered on 02/12/25at 20:16; Start 02/12/25 at 21:00; Stop 02/14/25 at 09:59; Status DC Insulin Glargine 12 units DAILY08 SQ Last administered on 02/13/25at 10:51; Start 02/13/25 at 08:00; Stop 02/14/25 at 09:59; Status DC Cefazolin Sodium 2 gm ONCALL IVP Last administered on 02/14/25at 08:50; Start 02/13/25 at 20:00; Stop 02/14/25 at 18:51; Status DC Epinephrine HCl 10 mg/Sodium Chloride 250 ml @ 0 mls/hr AD PRN IV Last administered on 02/20/25at 17:32; Start 02/14/25 at 06:30; Stop 03/16/25 at 06:29 Norepinephrine Bitartrate 250 ml @ 0 mls/hr AD PRN IV Last administered on 02/17/25at 01:06; Start 02/14/25 at 06:30; Stop 03/16/25 at 06:29 Aminocaproic Acid 26201 mg/Sodium Chloride 480 ml @ 0 mls/hr AD PRN IV; Start 02/14/25 at 06:30; Stop 02/23/25 at 11:52; Status DC Epinephrine HCl 10 mg/Sodium Chloride 250 ml @ 0 mls/hr AD PRN IV; Start 02/14/25 at 07:00; Stop 02/14/25 at 06:51; Status DC Norepinephrine Bitartrate 250 ml @ 0 mls/hr AD PRN IV; Start 02/14/25 at 07:00; Stop 02/14/25 at 06:51; Status DC Aminocaproic Acid 53157 mg/Sodium Chloride 480 ml @ 0 mls/hr AD PRN IV; Start 02/14/25 at 07:00; Stop 02/14/25 at 06:51; Status DC Cefazolin Sodium 2 gm STK-MED ONCE .ROUTE; Start 02/14/25 at 06:53; Stop 02/14/25 at 06:53; Status DC Nitroglycerin/ Dextrose 1 ml @ As Directed STK-MED ONCE .ROUTE; Start 02/14/25 at 07:00; Stop 02/14/25 at 07:00; Status DC Cefazolin Sodium 1 gm STK-MED ONCE .ROUTE Last administered on 02/14/25at 10:09; Start 02/14/25 at 07:37; Stop 02/14/25 at 07:38; Status DC Heparin Sodium/ Sodium Chloride 500 ml @ As Directed STK-MED ONCE IV; Start 02/14/25 at 07:38; Stop 02/14/25 at 07:38; Status DC Papaverine HCl 60 mg STK-MED ONCE .ROUTE Last administered on 02/14/25at 10:10; Start 02/14/25 at 07:38; Stop 02/14/25 at 07:38; Status DC Midazolam HCl 2 mg STK-MED ONCE .ROUTE; Start 02/14/25 at 08:14; Stop 02/14/25 at 08:14; Status DC Ketamine HCl 500 mg STK-MED ONCE IJ; Start 02/14/25 at 08:16; Stop 02/14/25 at 08:16; Status DC Protamine Sulfate 250 mg STK-MED ONCE IV; Start 02/14/25 at 08:17; Stop 02/14/25 at 08:17; Status DC Lidocaine HCl 100 mg STK-MED ONCE .ROUTE; Start 02/14/25 at 08:17; Stop 02/14/25 at 08:17; Status DC Heparin Sodium (Porcine) 10,000 unit STK-MED ONCE .ROUTE; Start 02/14/25 at 08:17; Stop 02/14/25 at 08:17; Status DC Epinephrine HCl 1 mg STK-MED ONCE .ROUTE; Start 02/14/25 at 08:17; Stop 02/14/25 at 08:17; Status DC Sodium Bicarbonate 200 ml @ As Directed STK-MED ONCE .ROUTE; Start 02/14/25 at 08:17; Stop 02/14/25 at 08:17; Status DC Norepinephrine Bitartrate 4 mg STK-MED ONCE IV; Start 02/14/25 at 08:17; Stop 02/14/25 at 08:17; Status DC Propofol 200 mg STK-MED ONCE IV; Start 02/14/25 at 08:19; Stop 02/14/25 at 08:19; Status DC Fentanyl Citrate 1,000 mcg STK-MED ONCE IJ; Start 02/14/25 at 08:19; Stop 02/14/25 at 08:19; Status DC Midazolam HCl 2 mg STK-MED ONCE .ROUTE; Start 02/14/25 at 08:20; Stop 02/14/25 at 08:20; Status DC Rocuronium Sunset 50 mg STK-MED ONCE .ROUTE; Start 02/14/25 at 08:20; Stop 02/14/25 at 08:20; Status DC Acetaminophen 1,000 mg Q6H6 IV Last administered on 02/15/25at 12:14; Start 02/14/25 at 14:00; Stop 02/15/25 at 13:59; Status DC Aspirin 81 mg ONCE ONCE NG Last administered on 02/14/25at 13:56; Start 02/14/25 at 14:00; Stop 02/14/25 at 14:01; Status DC Docusate Sodium 100 mg BID PO Last administered on 03/05/25at 10:34; Start 02/14/25 at 21:00; Stop 03/16/25 at 20:59 Lactulose 20 gm BID PRN PO Last administered on 02/28/25at 15:56; Start 02/14/25 at 10:00; Stop 03/16/25 at 09:59 Furosemide 20 mg Q12H PO Last administered on 02/16/25at 08:19; Start 02/16/25 at 09:00; Stop 02/16/25 at 10:21; Status DC Furosemide 20 mg Q12H IV Last administered on 02/15/25at 20:16; Start 02/15/25 at 09:00; Stop 02/16/25 at 08:59; Status DC Atorvastatin Calcium 40 mg HS PO Last administered on 03/04/25at 21:23; Start 02/14/25 at 21:00; Stop 03/16/25 at 20:59 Enoxaparin Sodium 30 mg DAILY SQ Last administered on 03/05/25at 10:37; Start 02/17/25 at 09:00; Stop 03/19/25 at 08:59 Metoprolol Tartrate 12.5 mg BID PO; Start 02/16/25 at 09:00; Stop 02/20/25 at 09:01; Status DC Magnesium Hydroxide 30 ml DAILY PRN PO; Start 02/14/25 at 10:00; Stop 03/16/25 at 09:59 Dexmedetomidine/ Sodium Chloride 400 mcg PROTOCOL IV; Start 02/14/25 at 10:00; Stop 02/15/25 at 09:59; Status DC Acetaminophen 650 mg Q6H PRN PO; Start 02/14/25 at 10:00; Stop 03/16/25 at 09:59 Heparin Sodium (Porcine) 10,000 unit STK-MED ONCE .ROUTE; Start 02/14/25 at 10:00; Stop 02/14/25 at 10:00; Status DC Sodium Chloride 1,000 ml @ 10 mls/hr ONCE IV; Start 02/14/25 at 10:00; Stop 02/15/25 at 09:59; Status DC Sodium Chloride 10 ml Q8H PRN IVP; Start 02/14/25 at 10:00; Stop 03/16/25 at 09:59 Morphine Sulfate 0.5 mg Q2H PRN IV; Start 02/14/25 at 10:00; Stop 02/15/25 at 09:59; Status DC Morphine Sulfate 1 mg Q2H PRN IV Last administered on 02/14/25at 14:23; Start 02/14/25 at 10:30; Stop 02/19/25 at 13:29; Status DC Acetaminophen 650 mg Q4H PRN RC; Start 02/14/25 at 10:00; Stop 02/23/25 at 11:52; Status DC Ondansetron HCl 4 mg Q6H PRN IV; Start 02/14/25 at 10:00; Stop 03/16/25 at 09:59 Sodium Chloride 500 ml @ 0 mls/hr AD IV; Start 02/14/25 at 10:00; Stop 03/16/25 at 09:59 Nitroglycerin/ Dextrose 0 ml @ 0 mls/hr AD IV; Start 02/14/25 at 10:00; Stop 02/17/25 at 09:59; Status DC Propofol 100 ml @ 0 mls/hr AD PRN IV; Start 02/14/25 at 10:00; Stop 02/18/25 at 09:59; Status DC Norepinephrine Bitartrate 8 mg/ Dextrose 250 ml @ 0 mls/hr AD PRN IV; Start 02/14/25 at 10:00; Stop 02/14/25 at 10:14; Status DC Epinephrine HCl 10 mg/Sodium Chloride 250 ml @ 0 mls/hr AD PRN IV; Start 02/14/25 at 10:00; Stop 02/14/25 at 10:14; Status DC Aminocaproic Acid 31553 mg/Sodium Chloride 310 ml @ 25 mls/hr AD IV; Start 02/14/25 at 10:00; Stop 02/14/25 at 10:19; Status DC Calcium Gluconate 1 gm/Sodium Chloride 60 ml @ 200 mls/hr AD PRN IV Last administered on 02/21/25at 08:36; Start 02/14/25 at 10:00; Stop 03/16/25 at 09:59 Magnesium Sulfate 50 ml @ 12.5 mls/hr AD PRN IV Last administered on 02/24/25at 08:17; Start 02/14/25 at 10:00; Stop 03/16/25 at 09:59 Potassium Chloride 100 ml @ 100 mls/hr AD PRN IV Last administered on 02/21/25at 16:43; Start 02/14/25 at 10:00; Stop 03/16/25 at 09:59 Potassium Phosphate 250 ml @ 42 mls/hr AD PRN IV; Start 02/14/25 at 10:00; Stop 03/16/25 at 09:59 Albumin Human 250 ml @ 0 mls/hr AD PRN IV Last administered on 02/14/25at 14:42; Start 02/14/25 at 10:00; Stop 02/14/25 at 14:42; Status DC Acetaminophen 650 mg Q4H PRN PO; Start 02/14/25 at 10:00; Stop 03/16/25 at 09:59 Insulin Human Regular 100 unit/ Sodium Chloride 100 ml @ 0 mls/hr AD IV Last administered on 02/15/25at 06:30; Start 02/14/25 at 10:00; Stop 02/16/25 at 09:59; Status DC Cefazolin Sodium 2 gm Q8H IVPB Last administered on 02/15/25at 06:25; Start 02/14/25 at 15:00; Stop 02/15/25 at 07:01; Status DC Tramadol HCl 25 mg Q6H PRN PO; Start 02/14/25 at 10:00; Stop 02/19/25 at 09:59; Status DC Tramadol HCl 50 mg Q6H PRN PO; Start 02/14/25 at 10:00; Stop 02/19/25 at 09:59; Status DC Famotidine 20 mg BID IV Last administered on 02/15/25at 20:15; Start 02/14/25 at 21:00; Stop 02/16/25 at 07:58; Status DC Sodium Bicarbonate 50 meq AD PRN IV Last administered on 02/16/25at 15:25; Start 02/14/25 at 10:00; Stop 02/17/25 at 09:59; Status DC Dextrose 50 ml AD PRN IV; Start 02/14/25 at 10:00; Stop 03/16/25 at 09:59 Glucagon 1 mg AD PRN IM; Start 02/14/25 at 10:00; Stop 03/16/25 at 09:59 Dobutamine HCl 250 mg STK-MED ONCE .ROUTE; Start 02/14/25 at 10:28; Stop 02/14/25 at 10:28; Status DC Sodium Bicarbonate 50 ml @ As Directed STK-MED ONCE .ROUTE; Start 02/14/25 at 10:52; Stop 02/14/25 at 10:52; Status DC Sodium Bicarbonate 200 ml @ As Directed STK-MED ONCE .ROUTE; Start 02/14/25 at 10:53; Stop 02/14/25 at 10:53; Status DC Vasopressin 20 units STK-MED ONCE .ROUTE; Start 02/14/25 at 11:51; Stop 02/14/25 at 11:51; Status DC Rocuronium Sunset 50 mg STK-MED ONCE .ROUTE; Start 02/14/25 at 12:14; Stop 02/14/25 at 12:14; Status DC Sodium Bicarbonate 100 ml @ As Directed STK-MED ONCE .ROUTE; Start 02/14/25 at 12:16; Stop 02/14/25 at 12:16; Status DC Vasopressin 40 units/Sodium Chloride 40 ml @ 0 mls/hr PROTOCOL IV Last administered on 02/14/25at 22:11; Start 02/14/25 at 13:00; Stop 03/16/25 at 12:59 Albumin Human 250 ml @ 0 mls/hr AD IV Last administered on 02/18/25at 10:27; Start 02/14/25 at 15:30; Stop 02/18/25 at 10:40; Status DC Calcium Gluconate 2 gm/Sodium Chloride 100 ml @ 0 mls/hr ONCE ONCE IV Last administered on 02/14/25at 16:15; Start 02/14/25 at 16:30; Stop 02/14/25 at 16:31; Status DC Pharmacy Profile Note 1 each ONCE MISC; Start 02/14/25 at 18:00; Stop 02/14/25 at 18:27; Status DC Sodium Bicarbonate 25 meq/Dextrose 1,025 ml @ 0 mls/hr Q0M IV Last administered on 02/18/25at 13:03; Start 02/14/25 at 18:00; Stop 03/16/25 at 17:59 Famotidine 20 mg BID PO Last administered on 02/16/25at 20:03; Start 02/16/25 at 09:00; Stop 02/17/25 at 07:09; Status DC Insulin Human Regular INSULIN SLIDING SCAL... ACHS SQ Last administered on 02/27/25at 21:34; Start 02/16/25 at 11:30; Stop 02/28/25 at 05:39; Status DC Cefepime HCl 1 gm Q12H IVPB Last administered on 02/19/25at 22:54; Start 02/16/25 at 10:30; Stop 02/20/25 at 08:16; Status DC Furosemide 100 mg/ Sodium Chloride 100 ml @ 0 mls/hr PROTOCOL IV Last administered on 02/19/25at 11:35; Start 02/16/25 at 10:30; Stop 02/20/25 at 09:01; Status DC Vancomycin HCl 500 ml @ 250 mls/hr ONCE ONCE IV Last administered on 02/16/25at 11:39; Start 02/16/25 at 12:00; Stop 02/16/25 at 13:59; Status DC Sodium Chloride 4 ml STK-MED ONCE IH Last administered on 02/16/25at 10:53; Start 02/16/25 at 10:44; Stop 02/16/25 at 10:44; Status DC Sodium Chloride 4 ml STK-MED ONCE IH Last administered on 02/16/25at 14:33; Start 02/16/25 at 14:26; Stop 02/16/25 at 14:26; Status DC Sodium Chloride 4 ml STK-MED ONCE IH Last administered on 02/16/25at 19:16; Start 02/16/25 at 18:32; Stop 02/16/25 at 18:32; Status DC Famotidine 20 mg DAILY PO Last administered on 03/05/25at 10:34; Start 02/17/25 at 09:00; Stop 03/18/25 at 08:59 Latanoprost 1 DROP FOR EACH EYE HS OP Last administered on 03/04/25at 21:39; Start 02/17/25 at 21:00; Stop 03/19/25 at 20:59 Home Med (Brimonidine-Timolol 0.2%/0.5% EYE DROPS) DAILY OP Last administered on 03/05/25at 10:34; Start 02/18/25 at 09:00; Stop 03/20/25 at 08:59 Albumin Human 250 ml @ 0 mls/hr AD IV; Start 02/18/25 at 10:30; Stop 02/20/25 at 09:03; Status DC Vancomycin HCl 1 each AD IV; Start 02/18/25 at 11:00; Stop 02/24/25 at 12:15; Status DC Vancomycin HCl 250 ml @ 125 mls/hr Q12H IV Last administered on 02/19/25at 11:20; Start 02/18/25 at 11:30; Stop 02/21/25 at 05:33; Status DC Potassium Chloride 20 meq BID PO Last administered on 03/05/25at 10:36; Start 02/19/25 at 10:30; Stop 03/21/25 at 10:29 Dexmedetomidine/ Sodium Chloride 400 mcg STK-MED ONCE IV Last administered on 02/20/25at 07:08; Start 02/20/25 at 07:00; Stop 02/20/25 at 07:00; Status DC Dexmedetomidine/ Sodium Chloride 400 mcg PROTOCOL IV Last administered on 02/22/25at 05:51; Start 02/20/25 at 07:30; Stop 02/22/25 at 15:01; Status DC Carvedilol 3.125 mg BID PO; Start 02/20/25 at 21:00; Stop 02/24/25 at 06:13; Status DC Spironolactone 25 mg DAILY PO Last administered on 03/05/25at 10:34; Start 02/20/25 at 09:00; Stop 03/22/25 at 08:59 Empaglifozin 10 mg DAILY PO Last administered on 02/22/25at 09:38; Start 02/20/25 at 09:00; Stop 02/22/25 at 15:01; Status DC Albumin Human 50 ml @ 0 mls/hr Q12H9 IV Last administered on 02/24/25at 08:15; Start 02/20/25 at 09:00; Stop 02/24/25 at 08:42; Status DC Furosemide 20 mg Q12H IV Last administered on 02/25/25at 21:27; Start 02/20/25 at 09:00; Stop 02/26/25 at 09:43; Status DC Pharmacy Profile Note 1 each ONCE MISC; Start 02/20/25 at 11:30; Stop 02/20/25 at 11:19; Status DC Piperacillin Sod/ Tazobactam Sod 50 ml @ 12.5 mls/hr Q8H IVPB Last administered on 02/24/25at 11:45; Start 02/20/25 at 11:30; Stop 02/24/25 at 18:10; Status DC Vancomycin HCl 250 ml @ 125 mls/hr Q24H IV Last administered on 02/23/25at 06:28; Start 02/21/25 at 06:00; Stop 02/24/25 at 05:57; Status DC Insulin Glargine 10 units DAILY SQ Last administered on 02/22/25at 11:54; Start 02/21/25 at 09:00; Stop 02/22/25 at 19:17; Status DC Calcium Gluconate 1 gm STK-MED ONCE .ROUTE; Start 02/21/25 at 08:34; Stop 02/21/25 at 08:34; Status DC Etomidate 20 mg STK-MED ONCE .ROUTE; Start 02/21/25 at 12:27; Stop 02/21/25 at 12:28; Status DC Fentanyl Citrate 100 mcg STK-MED ONCE .ROUTE; Start 02/21/25 at 12:30; Stop 02/21/25 at 12:30; Status DC Rocuronium Sunset 50 mg STK-MED ONCE .ROUTE; Start 02/21/25 at 12:30; Stop 02/21/25 at 12:30; Status DC Lidocaine HCl 20 ml STK-MED ONCE .ROUTE; Start 02/21/25 at 12:31; Stop 02/21/25 at 12:31; Status DC Cefazolin Sodium 1 gm STK-MED ONCE .ROUTE; Start 02/21/25 at 12:31; Stop 02/21/25 at 12:32; Status DC Bupivacaine HCl 2.5 mg STK-MED ONCE IJ; Start 02/21/25 at 12:32; Stop 02/21/25 at 12:32; Status DC Propofol 200 mg STK-MED ONCE IV; Start 02/21/25 at 12:35; Stop 02/21/25 at 12:35; Status DC Lidocaine HCl 100 mg STK-MED ONCE .ROUTE; Start 02/21/25 at 12:46; Stop 02/21/25 at 12:46; Status DC Cefazolin Sodium 1 gm STK-MED ONCE .ROUTE; Start 02/21/25 at 12:51; Stop 02/21/25 at 12:51; Status DC Rocuronium Sunset 50 mg STK-MED ONCE .ROUTE; Start 02/21/25 at 13:03; Stop 02/21/25 at 13:03; Status DC Cefazolin Sodium 2 gm STK-MED ONCE IVPB Last administered on 02/21/25at 12:53; Start 02/21/25 at 12:53; Stop 02/21/25 at 14:14; Status DC Lidocaine HCl 20 ml STK-MED ONCE INJ Last administered on 02/21/25at 12:18; Start 02/21/25 at 12:18; Stop 02/21/25 at 14:14; Status DC Bupivacaine HCl 75 mg STK-MED ONCE IJ Last administered on 02/21/25at 12:18; Start 02/21/25 at 12:18; Stop 02/21/25 at 14:14; Status DC Insulin Glargine 12 units DAILY SQ Last administered on 02/27/25at 17:30; Start 02/23/25 at 09:00; Stop 02/28/25 at 05:39; Status DC Dexmedetomidine/ Sodium Chloride 400 mcg PROTOCOL IV Last administered on 02/23/25at 00:17; Start 02/23/25 at 00:00; Stop 03/25/25 at 00:00 Midodrine 10 mg TID PO Last administered on 03/05/25at 10:45; Start 02/23/25 at 14:00; Stop 03/25/25 at 13:59 Prednisone 20 mg DAILY PO Last administered on 02/26/25at 09:50; Start 02/23/25 at 12:30; Stop 02/26/25 at 13:00; Status DC Vancomycin HCl 250 ml @ 125 mls/hr Q24H IV Last administered on 02/24/25at 06:26; Start 02/24/25 at 06:30; Stop 02/24/25 at 12:15; Status DC Carvedilol 3.125 mg BID PO Last administered on 03/05/25at 10:35; Start 02/24/25 at 09:00; Stop 03/26/25 at 08:59 Empaglifozin 10 mg DAILY PO Last administered on 02/24/25at 08:47; Start 02/24/25 at 09:00; Stop 02/24/25 at 13:01; Status DC Piperacillin Sod/ Tazobactam Sod 50 ml @ 12.5 mls/hr Q8H6 IVPB Last administered on 03/05/25at 06:12; Start 02/24/25 at 22:00; Stop 03/06/25 at 21:59 Furosemide 40 mg Q12H IV Last administered on 03/01/25at 09:28; Start 02/26/25 at 10:00; Stop 03/01/25 at 11:00; Status DC Insulin Glargine 15 units DAILY SQ Last administered on 03/05/25at 10:53; Start 02/28/25 at 09:00; Stop 03/30/25 at 08:59 Insulin Human Regular INSULIN SLIDING SCAL... ACHS SQ Last administered on 03/04/25at 21:31; Start 02/28/25 at 07:30; Stop 03/30/25 at 07:29 Furosemide 20 mg Q12H IV Last administered on 03/05/25at 10:35; Start 03/01/25 at 22:00; Stop 03/31/25 at 21:59 EUGENE ZARATE MD Mar 05, 2025 11:23
--- NOTE | 2025-03-05 11:36 | PN ---
[facility] PROGRESS NOTE Date Patient Seen: Mar 05, 2025 Time of Visit: 11:36 Supervising Physician: Dr Antonio Zhong Primary Care Physician: KELLEY ENCINAS MD Outpatient Specialists: Inpatient Consults: BIS PROBLEM LIST: CAD, status post CABG x3 Left-sided hemothorax s/p thoracentesis HAP Impella and a intra-aortic balloon pump support Type 2 diabetes with hyperglycemia Congested heart failure EF 20% Obstructive coronary artery disease Atherosclerosis Primary hypertension Morbid obesity; BMI 36 Cardiogenic shock; resolved INTERVAL HISTORY: Patient seen and evaluated, patient is sitting comfortably at the bedside chair, reporting no chest pain or shortness of breath No acute events overnight Afebrile Good saturations on room air Tolerating PT Plan: Pending custodial facility [facility] Continue diuresis Supplemental O2 if needed Cardiac rehab Lovenox subQ Antibiotics per ID REVIEW OF SYSTEMS: 12 point ROS reviewed with patient. Pertinent positives mentioned above. Otherwise negative. PHYSICAL EXAM: GENERAL: Patient comfortable in bed, HEENT: EOMI, Sclera non icteric, moist mucosa NECK: Supple, no JVD, trachea midline LUNGS: Clear breath sounds bilaterally. No wheezes HEART: Regular rate and rhythm. Normal S1 and S2, without murmurs sternum wound looks clean, no bleeding or discharge. ABD: Abdomen soft, nontender. Bowel sounds present EXT: Edema and hyperemia to the right ankle have improved compared to yesterday NEURO: Awake alert and oriented Vital Signs (last 8hr) Date Time Temp Pulse Resp B/P (MAP) Pulse Ox O2 Delivery O2 Flow Rate FiO2 03/05/25 10:35 106/59 03/05/25 08:00 97.7 66 19 106/59 94 Room Air 03/05/25 04:00 98.2 71 18 92/47 97 Room Air LABS: Hematology Labs: Test 03/05/25 03:26 Range/Units White Blood Count 8.8 4.8-10.8 K/uL Red Blood Count 3.64 L 4.50-6.20 MIL/uL Hemoglobin 10.8 L 14.0-18.0 g/dL Hematocrit 33.6 L 42-54 % Mean Corpuscular Volume 92.3 79-99 fL Mean Corpuscular Hemoglobin 29.7 27.0-33.0 pg Mean Corpuscular Hemoglobin Concent 32.1 32.0-36.0 g/dL Red Cell Distribution Width 17.2 H 11.0-15.5 % Platelet Count 329 130-400 K/uL Mean Platelet Volume 10.4 7.5-10.5 fL Immature Granulocyte % (Auto) 0.6 0-1 % Neutrophils (%) (Auto) 56.8 40.0-77.0 % Lymphocytes (%) (Auto) 25.6 21.0-51.0 % Monocytes (%) (Auto) 13.0 3.0-13.0 % Eosinophils (%) (Auto) 3.4 0.0-8.0 % Basophils (%) (Auto) 0.6 0.0-5.0 % Neutrophils # (Auto) 5.0 1.8-7.7 K/uL Lymphocytes # (Auto) 2.3 1.0-4.8 K/uL Monocytes # (Auto) 1.1 H 0.1-1.0 K/uL Eosinophils # (Auto) 0.30 0.00-0.70 K/uL Basophils # (Auto) 0.05 0.00-0.20 K/uL Absolute Immature Granulocyte (auto 0.05 0-1 K/uL Nucleated Red Blood Cells 0.0 0.0-0.19 % Chemistry Labs: Test 03/05/25 11:13 03/05/25 03:26 03/04/25 03:15 Range/Units Whole Blood Glucose 199 #H 70-110 MG/DL Sodium Level 138 136-145 mmol/L Potassium Level 4.1 3.5-5.1 mmol/L Chloride Level 101 101-111 mmol/L Carbon Dioxide Level 27 21-32 mmol/L Blood Urea Nitrogen 19 H 7-18 mg/dL Creatinine 1.3 0.5-1.3 mg/dL Glomerular Filtration Rate Calc 57 >90 mL/min Random Glucose 135 H 70-105 mg/dL Total Calcium 8.7 8.5-10.1 mg/dL Magnesium Level 2.00 1.80-2.40 mg/dL DIAGNOSTICS / RADIOLOGY RESULTS: [ ] NEURO: Minimize central acting medications as possible. Maintain fall precautions, adequate lighting during the day PULMONARY: Supplemental 02 as needed. Maintain aspiration precautions at all times CARDIOVASCULAR: Follow hemodynamics. Vital signs per facility protocol GI & NUTRITION: Continue with nutritional support. Continue stool softeners and laxatives as needed. KIDNEYS & ELECTROLYTES: Strict monitoring of intake, output and overall fluid balance. Avoid nephrotoxic medications to the extent possible. Medications to be dosed according to renal function. Monitor electrolytes and replace as needed ENDOCRINE: Maintain blood glucose between 100-180 at all times. Hypoglycemia protocol in place INFECTIOUS DISEASE: Trend temperature, WBC and procalcitonin level Follow cultures, deescalate antibiotics as soon as possible. Panculture if new onset fever ONCOLOGY/HEMATOLOGY/COAGULATION: Monitor for s/s of bleeding Monitor hemoglobin, coagulation studies as needed SKIN: Pressure ulcer prevention per facility protocol Specialty mattress ORTHO/REHAB: Continue PT/OT Prophylaxis: Continue GI and DVT prophylaxis Code Status: Full Resuscitation Disposition: as per cardiovascular MAGGIE JARRELL PAC Mar 05, 2025 11:36
--- NOTE | 2025-03-05 11:55 | PN ---
[facility] PROGRESS NOTE Date of Service: Mar 05, 2025 Time of Service: 11:55 HISTORY OF PRESENT ILLNESS: This is a 74-year-old male,a [employer]ze by caodaism whith past medical history of diabetes, hyperlipidemia and NH/coronary artery disease with cardiac stent who presented to the Ed for complaints of midsternal chest pain that is non radiating associated with diaphoresis and this happened when patient was laying down in bed aroun 11:50 pm last night and decided to come to the ED for evaluation.Patient reports pain was persistent.As per patient he had a history of heart attack before and underwent a stent placement.Patient reports the only medication he is taking is Metformin.Patient states he is supposed to be on Aspirin but has stopped taking it.Patient reports he occasionally drinks beer and last drink was yesterday ,had 2 beers he said. Seen and examined patient in the ER awake,alert and coherent,appears comfortable.Patient denies fever,chills,cough,nausea,vomiting,palpitation and shortness of breath. Latest vital signs temperature 98.2, heart rate 75, blood pressure 124/70 saturation 97% on room air. Labs: CBC unremarkable. Chloride 99, BUN 21, random glucose 469 to 439 to 327. Troponin from -. ECG result revealed revealed sinus rhythm heart rate 85 with atrial premature complex anterolateral infarct age indeterminate. Second EKG result revealed sinus rhythm heart rate 73 with left anterior fascicular block. Probable anterolateral infarct age indeterminate. Abnormal T consider ischemia lateral leads.. Chest x-ray result revealed no acute cardiopulmonary process is evident. While in the ER patient received 1500 mL NS bolus, insulin 5 units IV, aspirin 325 mg p.o. and patient was started on heparin drip per [facility] protocol. SUBJECTIVE: 02/10/25: Patient was seen and evaluated in ED9. Patient was alert, awake and orientedX3. Patient reports that he doesn't have any chest pain today. Patient reports occasional shortness of breath during nights. Patient denies any shortness of breath, nausea, vomiting, palpitations and lightheadedness. Patient denies any abdominal pain, burning urination. Patient mentions that he only takes metformin 3-4 times per week and has stopped taking aspirin because it wasn't reconciled. Troponin from -. 2D ECHO was done, pending results. Patient is currently on Heparin drip 02/11/25: Patient was evaluated at the bedside this morning. No overnight event. He is AAO x3. patient reported that he does not have chest pain or shortness of breath. He is hemodynamically stable. The labs remarkable for potassium 3.3, magnesium 1.6, HbA1c 13.9, troponin 08952. Left heart catheterization revealed severe triple-vessel disease. Echocardiogram revealed 25% ejection fraction with segmental akinesis. CT surgery was consulted who recommended CABG with Impella left ventricle assist. Family to decide about the procedure. He is currently on heparin drip, aspirin. Endocrinology on board. Rest of the plan as discussed below. 02/12/25: Patient was evaluated at the bedside this morning. No overnight event. He is AAO x3. patient reported that he does not have chest pain or shortness of breath. He is hemodynamically stable. Cardiology is on board and Dr. Blanton have suggested low-dose beta estela like metoprolol tartrate 12.5 mg b.i.d. for his heart failure. Dr Kaur still recommends CABG with 5.5 Impella LVAD and the patient agrees to it. We will continue Entresto, Aldactone, Jardiance, aspirin, Lasix as per CT surgeon recommendations. Today his potassium is 3.1 and we would like to be above 4 for CABG patients. So we will replace potassium 02/13/25: Patient was seen and evaluated in room 201. Patient reports feeling better. patient denies any chest pain, shortness of breath. He is continuing on Entresto, Aldactone, Jardiance, aspirin, Lasix as per CT surgeon recommendations.Patients Potassium today is 3.7, will continue replacing potassium. Patients was present along with the patient, she has a few question about the CABG procedure which she wanted to ask Dr. Alexis. 02/14/25. Patient was undergoing CABG procedure today in the morning. 02/15/25: Patient was seen and evaluated in room 213. Patient status post CABG day 1. Patient denies any fever, chills, shortness of breath. Patient complaints of pain along the incision. Patient is on IABP and Impella support. patient is on Vasopressin and Norepinephrine drip. Entresto, Aldactone, Jardiance were discontinued by Dr. Alexis. CT surgery are on the case and will follow their recommendations. 02/16/25: Patient was seen and evaluated in room 213. Patient status post CABG day 2. patient was asleep when we went bedside. Spoke with the nurse regarding overnights and she mentioned that patient was a bit confused in the night but later improved with sleep. Patient is continuing on Epinephrine drip. Patient was weaned off IABP and is currently only on Impella. Patient was started on Vancomycin and cefepime due to elevated WBC levels and findings suggestive of pneumonia on chest x-ray 02/17/25: Patient was seen and evaluated in room 213. Patient status post CABG day 2. patient was asleep when we went bedside. Spoke with the nurse regarding overnights and he mentioned that patient was started on lasix protocol. Patient is continuing on Epinephrine drip and Impella. Critical care are on the case and will follow their recommendations. 02/18/25: Patient was seen and examined at bedside. He is status post CABG day 3. He continues on Lasix drip 2.5, With Impella P3 support and epinephrine drip. His total output in the past 24 hours has been optimal, 4740 versus 2165 input. No acute events overnight. We will follow CTS recommendations regarding further weaning off Impella. 02/19/25: Patient was seen and evaluated in room 210. He is status post CABG day 4. He continues on Lasix drip 2.5, With Impella P3 support and epinephrine drip. His total output in the past 24 hours has been 2905 versus 4072. No acute overnight. Patient is scheduled for possible impella removal tomorrow. 02/20/25: Patient was seen and evaluated in room 210. He is status post CABG day 5. He continues on Lasix drip 2.5, Impella setting have been maintained at P3 settings. He is continuing on epinephrine drip. Cefepime was discontinued yesterday because overnight the patient was confused, agitated and combative suspecting the cause of his confusion and started on Zosyn. His total output in the past 24 hours has been 2675 versus 2206. Patient is scheduled for possible impella removal tomorrow. 02/21/25: Patient was seen and evaluated in room 210. He is status post CABG day 6. Patient is continuing on Epinephrine drip. patient was started on Lasix 20mg IV. Patient is scheduled for impella removal today. Patient is continuing on Zosyn. His total output in the past 24 hours has been 6700 versus 1785. 02/22/25: Patient was seen and evaluated in room 210. He is status post CABG day 7. Patient reports feeling better and he doesn't have any active complaints, Impella was removed yesterday and patient is continuing on Epinephrine drip. patient denies any shortness of breath, fever, chills and chest pain. Patient is continuing on Zosyn. His total output in the past 24 hours has been 3650 versus 1775. 02/23/25: Patient was seen and evaluated in room 210. He is status post CABG day 8. Patient complains of pain in left lower extremity, Patient denies any erythema, chest pain. Patient denies any fever, chills, shortness of breath, and dizziness. Ankle X-ray, US venous Doppler was ordered, will follow the results. Patient is continuing on lasix 20mg. His total output in the past 24 hours has been 4900 versus 1829. 02/24/25: Patient was seen and evaluated in room 210. He is status post CABG day 9. Patient is alert, awake, oriented X3. Patient reports that his pain in the left lower leg is getting better. Venous US ordered yesterday came back unrem arkable. Patient denies any chest pain, shortness of breath. Epinephrine drip was discontinued. Patient was started back on Coreg 3.125mg, Jardiance 10mg under cardiology recommendations. His total output in the past 24 hours has been 3300 versus 1560. 02/25/25: Patient was seen and evaluated in room 233 along with his . He is status post CABG day 10. Patient's mentioned that the patient passed blood clots in urine, Patient denies any burning micturition or difficulty urinating. Patient is alert, awake, oriented X3. Patient denies any pain in left lower extremity, Patient denies any chest pain, shortness of breath. Jardiance was stopped because of elevated bicarb. His total output in the past 24 hours has been 2300 versus 690. 02.26.2024: Patient is seen and evaluated in room 223. His current blood pressure is 105/57. He is on Aspirin, Lasix, Coreg, Jardiance, Aldactone, and Lipitor. Case management is coordinating cardiac rehabilitation and potential SNF placement tomorrow. Pulmonology advised thoracentesis for left pleural effusion, the patient is saturating above 95%. The patient reports no dyspnea or orthopnea. He is receiving 12 units of Lantus and is off the insulin drip. He is on Zosyn and Vancomycin, and his WBC is 15.4 today. Bilirubin is trending down to 1.3 02.27.2025: Patient is seen and evaluated in room 223. He has no active complaints, and the nurse reports no overnight events. Chest X-ray demonstrates improvement from yesterday following thoracentesis. Case management is arranging placement to a assisted facility, pending approval. From the cardiology perspective, the patient is cleared and approved for discharge to rehab. 02.28.2025: Patient is seen and evaluated in room 223. Cardiology left a note indicating possible AICD or LifeVest placement. Patient denies chest pain, shortness of breath, palpitations, and reports no lower-extremity edema. WBC is 14.7 today and trending down. Hemoglobin remains stable at 10.8. Chloride is 100 and BUN is 26. Blood sugars are 150 . Lantus has been increased from 12 units to 15 units. Pending referral to cardiac rehab. 03.01.2025: Patient is seen and evaluated in Room No. 223. The patient appears fluid overloaded. Laboratory results are as follows: WBC 15.5, Hemoglobin 12.5, Platelet count 540, Sodium 135, Chloride 96, BUN 25, Creatinine 1.5. Per Dr. Alexis, ventricular function will be assessed to determine candidacy for an AICD. The patient was previously on Lasix 40 mg, but due to rising BUN and creatinine, the dose has been reduced to Lasix 20 mg twice daily for volume management. 03.02.2025: Patient is seen and evaluated in room no. 223. Patient's WBC is 11.3 and trending down. Platelet count remains elevated at 446. Creatinine improved to 1.2 from 1.5 yesterday. BNP is 363, and we will monitor closely for any signs of fluid overload. The patient is currently wearing a LifeVest and will continue it for 8 weeks as per cardiology. We will transition Lasix from IV to oral formulation. Pending Cardiac rehabilitation approval. 03.03.2025: Patient is seen and evaluated in room number 223. His blood pressure today is 91/53. White blood cell count is 10.7 and trending down. Hemoglobin remains stable at 10.4. His BUN is 25. BNP is elevated at 462, so to further assess for possible fluid overload, a chest X-ray has been ordered and the report is currently pending. We will continue to monitor for any signs of fluid overload, and SNF placement is still pending. 03.04.2025: Patient was seen and evaluated in room 223. He reported no active complaints and expressed a desire to go home, as he is tired of staying in the hospital while awaiting approval. Case management is continuing to work on approval for transfer to [facility]. He will be transitioned to oral LASIX upon discharge. His current labs show a WBC of 10, hemoglobin 11, platelets 380, and magnesium 2. A chest X-ray performed yesterday showed no acute pulmonary process. 03/05/2025: Patient was seen and evaluated in room 223, family at bedside. Case discussed with RN, no acute overnight events. Patient says he is feeling better, denies any new or worsening symptoms. Morning labs show H&H 10.8, 33.6 respectively, sodium 139, potassium 3.4, BUN 19, creatinine 1.3. Patient is pending approval for placement to [facility] at discharge for rehabilitation. REVIEW OF SYSTEMS CONSTITUTIONAL: Denies fevers, chills, or night sweats. No unintentional weight loss reported. NEUROLOGICAL: Denies headache, amaurosis fugax, motor weakness, sensory deficit, vertigo/spinning sensation, gait abnormalities, or tremors. ENT: No hearing loss, otalgia, otorrhea, rhinitis, rhinorrhea, hoarseness, or sore throat. CARDIOVASCULAR: Denies chest pain, dyspnea on exertion, orthopnea, paroxysmal nocturnal dyspnea, palpitations, life-threatening arrhythmias, claudication. PULMONARY: Denies any cough, phlegm/sputum, hemoptysis, pleuritic chest pain. GASTROINTESTINAL: Denies any type of dysphagia to either liquids or solids. Denies nausea, vomiting, pyrosis, early satiety, abdominal pain, diarrhea, constipation, or changes in stool consistency or caliber. Denies coffee-ground emesis, hematemesis, hematochezia, or melanotic stools. GENITOURINARY: Denies frequency, urgency, nocturia, hematuria or incontinence (Storage/Irritative symptoms.) Low urinary stream, straining to void, urinary intermittency or hesitancy, splitting of the voiding stream, terminal dribbling. PHYSICAL EXAM GENERAL APPEARANCE: The patient is awake, alert, and oriented, in no acute cardiopulmonary distress. NEUROLOGICAL: Motor is 5/5 in bilateral upper and lower extremities proximal to distal. No sensory deficits. HEENT: Face is symmetric. Pupils are equal and reactive. Extraocular movements are intact. NECK: Supple. No thyromegaly. No submental, submandibular, pre-/postauricular, occipital or supraclavicular lymphadenopathy. CHEST: Normal chest expansion. No Telemetry. LUNGS: Absence of any rales, rhonchi or any wheezing. CARDIOVASCULAR: Regular. S1 and S2 normal. No appreciable rubs, murmurs or gallops. ABDOMEN: Soft, nontender, and nondistended. There is no rebound, voluntary guarding, or rigidity. : Deferred. No De Jesus. EXTREMITIES: Non-edematous and not cyanotic. No clubbing. Good capillary refill. SKIN: sternal scar - post CABG Vital Signs (last 8hr) Date Time Temp Pulse Resp B/P (MAP) Pulse Ox O2 Delivery O2 Flow Rate FiO2 03/05/25 10:35 95 Room Air* 0 21 03/05/25 10:35 106/59 03/05/25 08:00 97.7 66 19 106/59 94 Room Air 03/05/25 04:00 98.2 71 18 92/47 97 Room Air LABS: Laboratory: Test 03/05/25 11:13 03/05/25 03:26 03/04/25 03:15 Range/Units Whole Blood Glucose 199 #H 70-110 MG/DL White Blood Count 8.8 4.8-10.8 K/uL Red Blood Count 3.64 L 4.50-6.20 MIL/uL Hemoglobin 10.8 L 14.0-18.0 g/dL Hematocrit 33.6 L 42-54 % Mean Corpuscular Volume 92.3 79-99 fL Mean Corpuscular Hemoglobin 29.7 27.0-33.0 pg Mean Corpuscular Hemoglobin Concent 32.1 32.0-36.0 g/dL Red Cell Distribution Width 17.2 H 11.0-15.5 % Platelet Count 329 130-400 K/uL Mean Platelet Volume 10.4 7.5-10.5 fL Immature Granulocyte % (Auto) 0.6 0-1 % Neutrophils (%) (Auto) 56.8 40.0-77.0 % Lymphocytes (%) (Auto) 25.6 21.0-51.0 % Monocytes (%) (Auto) 13.0 3.0-13.0 % Eosinophils (%) (Auto) 3.4 0.0-8.0 % Basophils (%) (Auto) 0.6 0.0-5.0 % Neutrophils # (Auto) 5.0 1.8-7.7 K/uL Lymphocytes # (Auto) 2.3 1.0-4.8 K/uL Monocytes # (Auto) 1.1 H 0.1-1.0 K/uL Eosinophils # (Auto) 0.30 0.00-0.70 K/uL Basophils # (Auto) 0.05 0.00-0.20 K/uL Absolute Immature Granulocyte (auto 0.05 0-1 K/uL Nucleated Red Blood Cells 0.0 0.0-0.19 % Sodium Level 138 136-145 mmol/L Potassium Level 4.1 3.5-5.1 mmol/L Chloride Level 101 101-111 mmol/L Carbon Dioxide Level 27 21-32 mmol/L Blood Urea Nitrogen 19 H 7-18 mg/dL Creatinine 1.3 0.5-1.3 mg/dL Glomerular Filtration Rate Calc 57 >90 mL/min Random Glucose 135 H 70-105 mg/dL Total Calcium 8.7 8.5-10.1 mg/dL Magnesium Level 2.00 1.80-2.40 mg/dL Current Medications Medications (Trade) Dose Ordered Sig/Carol Route PRN Reason Start Time Stop Time Status Last Admin Dose Admin Acetaminophen (TYLenol 325MG TAB) 650 mg Q4H PRN PO MILD PAIN (1-3) 02/10/25 05:00 02/14/25 10:05 DC Acetaminophen (TYLenol 325MG TAB) 650 mg Q4H PRN PO Temp >38.3C(AFTER EXTUBATION) 02/14/25 10:00 03/16/25 09:59 Acetaminophen (TYLenol 325MG TAB) 650 mg Q6H PRN PO TEMPERATURE GREATER THAN 101.5 02/10/25 05:00 02/14/25 10:17 DC 02/12/25 17:13 650 MG Acetaminophen (TYLenol 325MG TAB) 650 mg Q6H PRN PO MILD PAIN (1-3) 02/14/25 10:00 03/16/25 09:59 Acetaminophen (TYLenol 650MG SUPPOSITORY) 650 mg Q4H PRN RC Temp >38.3C WHILE INTUBATED 02/14/25 10:00 02/23/25 11:52 DC Acetaminophen (acetaMINOPHEN 1,000MG/100ML) 1,000 mg Q6H6 IV 02/14/25 14:00 02/15/25 13:59 DC 02/15/25 12:14 1,000 MG Albumin Human 50 ml @ 0 mls/hr Q12H9 IV 02/20/25 09:00 02/24/25 08:42 DC 02/24/25 08:15 100 MLS/HR Albumin Human 250 ml @ 0 mls/hr AD IV 02/14/25 15:30 02/18/25 10:40 DC 02/18/25 10:27 250 MLS/HR Albumin Human 250 ml @ 0 mls/hr AD IV 02/18/25 10:30 02/20/25 09:03 DC Albumin Human 250 ml @ 0 mls/hr AD PRN IV IF HEMODYNAMICALLY UNSTABLE 02/14/25 10:00 02/14/25 14:42 DC 02/14/25 14:42 500 MLS/HR Aminocaproic Acid 89859 mg/Sodium Chloride 310 ml @ 25 mls/hr AD IV 02/14/25 10:00 02/14/25 10:19 DC Aminocaproic Acid 57361 mg/Sodium Chloride 480 ml @ 0 mls/hr AD PRN IV BLEEDING CONTROL 02/14/25 06:30 02/23/25 11:52 DC Aminocaproic Acid 41747 mg/Sodium Chloride 480 ml @ 0 mls/hr AD PRN IV BLEEDING CONTROL 02/14/25 07:00 02/14/25 06:51 DC Aspirin (Aspirin 325mg Tab) 325 mg ONCE PO 02/10/25 14:30 02/10/25 17:22 DC 02/10/25 14:32 325 MG Aspirin (Aspirin 81mg Ec Tab) 81 mg DAILY PO 02/10/25 09:00 03/12/25 08:59 03/05/25 10:34 81 MG Atorvastatin Calcium (LIPItor 40MG) 40 mg HS PO 02/14/25 21:00 03/16/25 20:59 03/04/25 21:23 40 MG Calcium Gluconate 1 gm/Sodium Chloride 60 ml @ 200 mls/hr AD PRN IV HYPOCALCEMIA 02/14/25 10:00 03/16/25 09:59 02/21/25 08:36 200 MLS/HR Carvedilol (Coreg 3.125MG) 3.125 mg BID PO 02/20/25 21:00 02/24/25 06:13 DC Carvedilol (Coreg 3.125MG) 3.125 mg BID PO 02/24/25 09:00 03/26/25 08:59 03/05/25 10:35 3.125 MG Cefazolin Sodium (Ancef) 2 gm ONCALL IVP 02/13/25 20:00 02/14/25 18:51 DC 02/14/25 08:50 2 GM Cefazolin Sodium (Ancef) 2 gm Q8H IVPB 02/14/25 15:00 02/15/25 07:01 DC 02/15/25 06:25 2 GM Cefepime HCl (MAXipime 1 GM vial) 1 gm Q12H IVPB 02/16/25 10:30 02/20/25 08:16 DC 02/19/25 22:54 1 GM Clopidogrel Bisulfate (plaVIX 300MG TAB) 600 mg ONCE PO 02/10/25 14:00 02/10/25 17:22 DC 02/10/25 14:19 600 MG Clopidogrel Bisulfate (plaVIX 75MG) 75 mg DAILY PO 02/11/25 09:00 02/11/25 07:28 DC Dexmedetomidine/ Sodium Chloride (PRECEdex 400MCG/ 100ML-NS) 400 mcg PROTOCOL IV 02/14/25 10:00 02/15/25 09:59 DC Dexmedetomidine/ Sodium Chloride (PRECEdex 400MCG/ 100ML-NS) 400 mcg PROTOCOL IV 02/20/25 07:30 02/22/25 15:01 DC 02/22/25 05:51 400 MCG Dexmedetomidine/ Sodium Chloride (PRECEdex 400MCG/ 100ML-NS) 400 mcg PROTOCOL IV 02/23/25 00:00 03/25/25 00:00 02/23/25 00:17 400 MCG Dextrose (D50w) 50 ml AD PRN IV HYPOGLYCEMIA PROTOCOL 02/10/25 05:00 02/14/25 10:17 DC Dextrose (D50w) 50 ml AD PRN IV HYPOGLYCEMIA PROTOCOL 02/14/25 10:00 03/16/25 09:59 Docusate Sodium (COLace 100MG CAP) 100 mg BID PO 02/14/25 21:00 03/16/25 20:59 03/05/25 10:34 100 MG Empaglifozin (Jardiance 10mg) 10 mg DAILY PO 02/10/25 14:30 02/14/25 09:59 DC 02/13/25 10:52 10 MG Empaglifozin (Jardiance 10mg) 10 mg DAILY PO 02/20/25 09:00 02/22/25 15:01 DC 02/22/25 09:38 10 MG Empaglifozin (Jardiance 10mg) 10 mg DAILY PO 02/24/25 09:00 02/24/25 13:01 DC 02/24/25 08:47 10 MG Enoxaparin Sodium (Lovenox) 30 mg DAILY SQ 02/17/25 09:00 03/19/25 08:59 03/05/25 10:37 30 MG Epinephrine HCl 10 mg/Sodium Chloride 250 ml @ 0 mls/hr AD PRN IV TITRATE 02/14/25 06:30 03/16/25 06:29 02/20/25 17:32 2.9 MLS/HR Epinephrine HCl 10 mg/Sodium Chloride 250 ml @ 0 mls/hr AD PRN IV TITRATE 02/14/25 07:00 02/14/25 06:51 DC Epinephrine HCl 10 mg/Sodium Chloride 250 ml @ 0 mls/hr AD PRN IV POST-OP CARDIOVASCULAR ORDERS 02/14/25 10:00 02/14/25 10:14 DC Famotidine (Pepcid 20mg Vial) 20 mg BID IV 02/14/25 21:00 02/16/25 07:58 DC 02/15/25 20:15 20 MG Famotidine (Pepcid 20mg Tab) 20 mg BID PO 02/16/25 09:00 02/17/25 07:09 DC 02/16/25 20:03 20 MG Famotidine (Pepcid 20mg Tab) 20 mg DAILY PO 02/10/25 09:00 02/14/25 09:59 DC 02/13/25 10:53 20 MG Famotidine (Pepcid 20mg Tab) 20 mg DAILY PO 02/17/25 09:00 03/18/25 08:59 03/05/25 10:34 20 MG Furosemide (LASix 20MG TAB) 20 mg DAILY PO 02/11/25 09:00 02/14/25 09:59 DC 02/13/25 10:52 20 MG Furosemide (LASix 20MG TAB) 20 mg Q12H PO 02/16/25 09:00 02/16/25 10:21 DC 02/16/25 08:19 20 MG Furosemide (LASix 20MG VIAL) 20 mg ONCE IV 02/10/25 17:00 02/10/25 21:00 DC 02/10/25 17:00 20 MG Furosemide (LASix 20MG VIAL) 20 mg ONCE IV 02/11/25 09:00 02/11/25 07:43 DC Furosemide (LASix 20MG VIAL) 20 mg Q12H IV 02/15/25 09:00 02/16/25 08:59 DC 02/15/25 20:16 20 MG Furosemide (LASix 20MG VIAL) 20 mg Q12H IV 02/20/25 09:00 02/26/25 09:43 DC 02/25/25 21:27 20 MG Furosemide (LASix 20MG VIAL) 20 mg Q12H IV 03/01/25 22:00 03/31/25 21:59 03/05/25 10:35 20 MG Furosemide (LASix 40MG VIAL) 40 mg Q12H IV 02/26/25 10:00 03/01/25 11:00 DC 03/01/25 09:28 40 MG Furosemide 100 mg/ Sodium Chloride 100 ml @ 0 mls/hr PROTOCOL IV 02/16/25 10:30 02/20/25 09:01 DC 02/19/25 11:35 2.5 MLS/HR Glucagon (Glucagon 1mg Kit) 1 mg AD PRN IM HYPOGLYCEMIA PROTOCOL 02/10/25 05:00 02/14/25 10:17 DC Glucagon (Glucagon 1mg Kit) 1 mg AD PRN IM HYPOGLYCEMIA PROTOCOL 02/14/25 10:00 03/16/25 09:59 Heparin Sodium (Porcine) (HEParin 5,000 UNIT VIAL) *calculation based on ACTUAL B... AD PRN IV HEPARIN PROTOCOL 02/12/25 21:00 02/14/25 09:59 DC 02/12/25 20:16 4,000 UNIT Heparin Sodium/ Dextrose 250 ml @ 0 mls/hr PROTOCOL IV 02/10/25 03:00 02/10/25 17:22 DC 02/10/25 03:00 16.2 MLS/HR Heparin Sodium/ Dextrose 250 ml @ 0 mls/hr Q6H IV 02/11/25 06:30 02/14/25 09:59 DC 02/13/25 13:01 9 MLS/HR Home Med (Home Medication) (Brimonidine-Timolol 0.2%/0.5% EYE DROPS) DAILY OP 02/18/25 09:00 03/20/25 08:59 03/05/25 10:34 1 EACH Insulin Glargine (LANtus 100 UNITS/ML 10 ML VIAL) 10 units DAILY 02/21/25 09:00 02/22/25 19:17 DC 02/22/25 11:54 10 UNITS Insulin Glargine (LANtus 100 UNITS/ML 10 ML VIAL) 12 units DAILY 02/23/25 09:00 02/28/25 05:39 DC 02/27/25 17:30 12 UNITS Insulin Glargine (LANtus 100 UNITS/ML 10 ML VIAL) 12 units DAILY08 02/13/25 08:00 02/14/25 09:59 DC 02/13/25 10:51 12 UNITS Insulin Glargine (LANtus 100 UNITS/ML 10 ML VIAL) 15 units DAILY 02/28/25 09:00 03/30/25 08:59 03/05/25 10:53 15 UNITS Insulin Glargine (LANtus 100 UNITS/ML 10 ML VIAL) 15 units DAILY08 02/11/25 08:00 02/13/25 05:24 DC 02/12/25 08:54 15 UNITS Insulin Human Regular (humuLIN R 100 UNIT/ML 3ML) 3 unit TIDAC SQ 02/12/25 07:30 02/14/25 09:59 DC 02/12/25 16:31 3 UNIT Insulin Human Regular (humuLIN R 100 UNIT/ML 3ML) INSULIN SLIDING SCAL... ACHS SQ 02/16/25 11:30 02/28/25 05:39 DC 02/27/25 21:34 2 UNIT Insulin Human Regular (humuLIN R 100 UNIT/ML 3ML) INSULIN SLIDING SCAL... ACHS SQ 02/28/25 07:30 03/30/25 07:29 03/04/25 21:31 2 UNIT Insulin Human Regular (humuLIN R 100 UNIT/ML 3ML) INSULIN SLIDING SCAL... Q4H SQ 02/10/25 05:00 02/10/25 11:10 DC 02/10/25 09:15 6 UNIT Insulin Human Regular (humuLIN R 100 UNIT/ML 3ML) INSULIN SLIDING SCAL... Q6H6 SQ 02/10/25 12:00 02/14/25 09:59 DC 02/11/25 17:29 2 UNIT Insulin Human Regular 100 unit/ Sodium Chloride 100 ml @ 0 mls/hr AD IV 02/14/25 10:00 02/16/25 09:59 DC 02/15/25 06:30 3 MLS/HR Lactulose (Constulose 20gm/ 30ml Udcup) 20 gm BID PRN PO CONSTIPATION 02/14/25 10:00 03/16/25 09:59 02/28/25 15:56 20 GM Latanoprost (Xalatan) 1 DROP FOR EACH EYE HS OP 02/17/25 21:00 03/19/25 20:59 03/04/25 21:39 1 DROP Magnesium Hydroxide (Milk Of Magnesium 30ml) 30 ml DAILY PRN PO CONSTIPATION 02/14/25 10:00 03/16/25 09:59 Magnesium Sulfate 50 ml @ 12.5 mls/hr AD PRN IV MAG LEVEL LESS THAN 2.0 02/14/25 10:00 03/16/25 09:59 02/24/25 08:17 12.5 MLS/HR Magnesium Sulfate 50 ml @ 0 mls/hr PROTOCOL PRN IV OTHER [SEE ORDER COMMENTS] 02/10/25 05:00 02/14/25 10:17 DC 02/12/25 07:13 25 MLS/HR Metoprolol Tartrate (loprESSOR) 12.5 mg BID PO 02/12/25 09:00 02/14/25 09:59 DC 02/14/25 06:44 12.5 MG Metoprolol Tartrate (loprESSOR) 12.5 mg BID PO 02/16/25 09:00 02/20/25 09:01 DC Midodrine (PROAMatine 5 MG TABLET) 10 mg TID PO 02/23/25 14:00 03/25/25 13:59 03/05/25 10:45 10 MG Morphine Sulfate (morPHINE 2MG SYG) 0.5 mg Q2H PRN IV MODERATE PAIN (4-6) IF NPO 02/14/25 10:00 02/15/25 09:59 DC Morphine Sulfate (morPHINE 2MG SYG) 1 mg Q2H PRN IV SEVERE PAIN (7-10) IF NPO 02/14/25 10:30 02/19/25 13:29 DC 02/14/25 14:23 1 MG Nitroglycerin (Nitrostat) 0.4 mg PROTOCOL PRN SL CHEST PAIN 02/10/25 05:00 02/14/25 09:59 DC Nitroglycerin/ Dextrose 0 ml @ 0 mls/hr AD IV 02/14/25 10:00 02/17/25 09:59 DC Norepinephrine Bitartrate 250 ml @ 0 mls/hr AD PRN IV TITRATE 02/14/25 06:30 03/16/25 06:29 02/17/25 01:06 1.9 MLS/HR Norepinephrine Bitartrate 250 ml @ 0 mls/hr AD PRN IV TITRATE 02/14/25 07:00 02/14/25 06:51 DC Norepinephrine Bitartrate 8 mg/ Dextrose 250 ml @ 0 mls/hr AD PRN IV POST-OP CARDIOVASCULAR ORDERS 02/14/25 10:00 02/14/25 10:14 DC Ondansetron HCl (zoFRAN 4MG INJ) 4 mg Q6H PRN IV NAUSEA/VOMITING 02/10/25 05:00 02/14/25 10:17 DC Ondansetron HCl (zoFRAN 4MG INJ) 4 mg Q6H PRN IV NAUSEA/VOMITING 02/14/25 10:00 03/16/25 09:59 Pharmacy Profile Note (Pharmacy Communication) 1 each ONCE MISC 02/14/25 18:00 02/14/25 18:27 DC Pharmacy Profile Note (Pharmacy Communication) 1 each ONCE MISC 02/20/25 11:30 02/20/25 11:19 DC Piperacillin Sod/ Tazobactam Sod 50 ml @ 12.5 mls/hr Q8H IVPB 02/20/25 11:30 02/24/25 18:10 DC 02/24/25 11:45 12.5 MLS/HR Piperacillin Sod/ Tazobactam Sod 50 ml @ 12.5 mls/hr Q8H6 IVPB 02/24/25 22:00 03/06/25 21:59 03/05/25 06:12 12.5 MLS/HR Potassium Phosphate 250 ml @ 42 mls/hr AD PRN IV LOW PHOS LEVEL 02/14/25 10:00 03/16/25 09:59 Potassium Chloride 100 ml @ 100 mls/hr AD PRN IV POTASSIUM PROTOCOL 02/10/25 05:00 02/15/25 06:27 DC 02/15/25 05:43 100 MLS/HR Potassium Chloride 100 ml @ 100 mls/hr AD PRN IV HYPOKALEMIA 02/14/25 10:00 03/16/25 09:59 02/21/25 16:43 100 MLS/HR Potassium Chloride (K-Dur/Klor-Con 20meq) 20 meq AD PRN PO POTASSIUM PROTOCOL 02/10/25 05:00 03/12/25 04:59 02/18/25 20:18 20 MEQ Potassium Chloride (K-Dur/Klor-Con 20meq) 20 meq BID PO 02/19/25 10:30 03/21/25 10:29 03/05/25 10:36 20 MEQ Potassium Chloride (KCl 10% Elixir 20meq/15ml) 20 meq AD PRN PO POTASSIUM PROTOCOL 02/10/25 05:00 03/12/25 04:59 02/25/25 09:30 20 MEQ Prednisone (deltaSONE/ oraSONE 20MG TAB) 20 mg DAILY PO 02/23/25 12:30 02/26/25 13:00 DC 02/26/25 09:50 20 MG Propofol 100 ml @ 0 mls/hr AD PRN IV SEDATION 02/14/25 10:00 02/18/25 09:59 DC Sacubitril/ Valsartan (Entresto 24 Mg-26 Mg Tablet) 0.5 each BID PO 02/10/25 21:00 02/14/25 09:59 DC 02/13/25 21:11 0.5 EACH Sodium Bicarbonate 25 meq/Dextrose 1,025 ml @ 0 mls/hr Q0M IV 02/14/25 18:00 03/16/25 17:59 02/18/25 13:03 9.9 MLS/HR Sodium Bicarbonate (Sodium Bicarb 50meq 50ml Vial) 50 meq AD PRN IV OTHER[SEE DOSING INSTRUCTIONS] 02/14/25 10:00 02/17/25 09:59 DC 02/16/25 15:25 50 MEQ Sodium Chloride 500 ml @ 0 mls/hr AD IV 02/14/25 10:00 03/16/25 09:59 Sodium Chloride 1,000 ml @ 10 mls/hr ONCE IV 02/14/25 10:00 02/15/25 09:59 DC Sodium Chloride 1,000 ml @ 100 mls/hr Q10H IV 02/10/25 05:00 02/10/25 17:22 DC 02/10/25 14:20 100 MLS/HR Sodium Chloride (NS Flush 10ml) 10 ml Q8H PRN IVP IV LINE FLUSH 02/14/25 10:00 03/16/25 09:59 Spironolactone (Aldactone 25mg) 25 mg DAILY PO 02/10/25 14:30 02/14/25 09:59 DC 02/13/25 10:52 25 MG Spironolactone (Aldactone 25mg) 25 mg DAILY PO 02/20/25 09:00 03/22/25 08:59 03/05/25 10:34 25 MG Tramadol HCl (UltRAM) 25 mg Q6H PRN PO MODERATE PAIN (4-6) 02/14/25 10:00 02/19/25 09:59 DC Tramadol HCl (UltRAM) 50 mg Q6H PRN PO SEVERE PAIN (7-10) 02/14/25 10:00 02/19/25 09:59 DC Vancomycin HCl 250 ml @ 125 mls/hr Q12H IV 02/18/25 11:30 02/21/25 05:33 DC 02/19/25 11:20 125 MLS/HR Vancomycin HCl 250 ml @ 125 mls/hr Q24H IV 02/21/25 06:00 02/24/25 05:57 DC 02/23/25 06:28 125 MLS/HR Vancomycin HCl 250 ml @ 125 mls/hr Q24H IV 02/24/25 06:30 02/24/25 12:15 DC 02/24/25 06:26 125 MLS/HR Vancomycin HCl (Vancomycin Protocol) 1 each AD IV 02/18/25 11:00 02/24/25 12:15 DC Vasopressin 40 units/Sodium Chloride 40 ml @ 0 mls/hr PROTOCOL IV 02/14/25 13:00 03/16/25 12:59 02/14/25 22:11 1.8 MLS/HR DIAGNOSTICS / RADIOLOGY: [ ] ASSESSMENT: Chest pain rule out ACS: NSTEMI POA Suspected pneumonia findings on Chest X-ray Possible metabolic encephalopathy Hyperglycemia secondary to uncontrolled diabetes POA Hyperlipidemia POA Medication noncompliance, POA Obesity POA NH/Coronary artery disease with cardiac stent POA PLAN: Pending SNF Approval NSTEMI POA: * EKG was done which revealed sinus rhythm heart rate 85 with atrial premature complex anterolateral infarct age indeterminate. Second EKG result revealed sinus rhythm heart rate 73 with left anterior fascicular block. Probable anterolateral infarct age indeterminate. Abnormal T consider ischemia lateral leads. * PERC score was one, Wells score was zero. Very low suspicion for Pulmonary Embolism. * Chest X - ray on 02.25.2025 - Persistent small left pleural effusion with left mid and lower zone airspace opacities, significantly unchanged from prior study. * Thoracentesis done today - removed 1.1 lit of fluid by Dr. Louie and the patient tolerated the procedure well * Chest x-ray done on 02/17/25 show, small stable left pleural effusion with adjacent lung atelectasis. follow up x-ray from 02/22/25 show Cardiomegaly with median sternotomy with cardiac revascularization procedure, there is suggestion of a moderate left-sided pleural effusion. * 2-D ECHO on 02/19/25 show LVEF of 25-30% with segmental akinesis (apical, apical lateral, anteroapical) * Troponin trends [id number] * Left heart catheterization revealed severe three-vessel CAD with occluded mid LAD, 90% proximal left circumflex, 95% distal RCA, and 90% ostial PDA. * As per CT surgeon recommendations Entresto 0.5 each, was held. 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 * On aspirin 81 mg p.o. * Patient is on lasix 20mg IV. * Impella removed * Epinpehrine drip was discontinued and patient was started on Coreg 31.125, * Jardiance 10mg was held due to elevated bicarb. * lifevest as per cardiology * BNP - 462, so to further assess for possible fluid overload, a chest X-ray has been ordered - which showed no acute process Suspected pneumonia findings on Chest X-ray * Chest x-ray done on 02/16/25 show diffuse airspace disease of the left lung, predominantly involving the left lower zone, could be due to an infection or atelectasis. Questionable left pleural effusion. * Chest x-ray done on 02/17/25 show, small stable left pleural effusion with adjacent lung atelectasis. follow up x-ray from 02/19/25 show no interval change. * Patient on Zosyn- Started on 02/20/25 * WBC count on (03/04/25) - 10 * Will monitor with daily labs. Possible metabolic encephalopathy * Chest x-ray done on 02/17/25 show, small stable left pleural effusion with adjacent lung atelectasis. * Patient was started on Vancomycin and cefepime due to elevated WBC levels and findings suggestive of pneumonia on chest x-ray * Cefepime was discontinued on 02/20/25 because the patient was confused, agitated and combative suspecting the cause of his confusion and was started on Zosyn. * Will monitor with daily labs Hyperglycemia secondary to uncontrolled diabetes POA: * HbA1c 13.9 * Following the Endocrinology recommendations. He is on Lantus 15 units, low-dose sliding scale insulin * Jardiance 10mg was held due to elevated bicarb. * We will monitor blood glucose. Hypokalemia Hypomagnesemia - resolved * Potassium 4 - 03.02.2025 * Magnesium 2 (03.04.2025) * We will replete the electrolytes and monitor. * Keep potassium above 4 and magnesium above 2. * We will start Slow-Mag oral t.i.d. once and will keep monitoring magnesium levels. Supportive measures * GI prophylaxis with Famotidine * DVT prophylaxis with Lovenox ATTESTATION BY PHYSICIAN I have seen and examined the patient. I reviewed the documentation, medical dec ision making, and treatment plan as noted by the resident physician above. I agree with the findings and plan of care. DIANNE STEELE MD, ADIL SHAH QUADRI MD Mar 05, 2025 11:55
--- NOTE | 2025-03-05 20:50 | PN ---
INFECTIOUS DISEASE PROGRESS NOTE Date of Service: Mar 05, 2025 SUBJECTIVE: This is a 74-year-old male patient who was seen and examined at bedside in room 223. Patient is awake, alert and able to state his name but still has been forgetful episodes. Patient was able to ambulate 50 ft with physical therapy assistance today. Remains afebrile and the WBC remains within normal level of 8.8. We will continue on Zosyn IV. Pending insurance approval to [facility]. PHYSICAL EXAM EYES: Anicteric. Pupils equal and reactive. HENT: No oral thrush seen, moist Oral mucosa. NECK: Supple, no JVD or thyromegaly. LUNGS: Good air entry. No cough. CHEST: Sternal incision. CARDIOVASCULAR: S1, S2 regular. No murmur heard. ABDOMEN: Soft, non tender, bowel sounds present. CENTRAL NERVOUS SYSTEM: Awake, alert, oriented. SKIN: No rashes, no swelling. Surgical incisions to bilateral lower extremities healing. LYMPHATICS: No peripheral lymphadenopathy. MUSCULOSKELETAL: No joint swelling, erythema or tenderness. EXTREMITIES: No cyanosis or clubbing. Weakness. BACK: No deformity, no pressure ulcer. GENITOURINARY: No dysuria or hematuria. Vital Sign (Last 12 Hours) 03/05/25 03/05/25 03/05/25 03/05/25 10:35 10:35 12:03 16:36 Temp 97.9 97.9 Pulse 58 66 Resp 18 18 B/P (MAP) 106/59 102/61 106/57 Pulse Ox 95 97 97 O2 Delivery Room Air* Room Air Room Air O2 Flow Rate 0 FiO2 21 03/05/25 20:00 Temp 98.1 Pulse 63 Resp 18 B/P (MAP) 103/53 Pulse Ox 97 O2 Delivery Room Air Intake & Output (last 24hrs) 03/04/25 03/04/25 03/05/25 15:00 23:00 07:00 Intake Total 372.5 ml 277.5 ml Output Total 300 ml 500 ml Balance 372.5 ml -22.5 ml -500 ml LABS: Laboratory: Test 03/05/25 19:44 03/05/25 03:26 03/04/25 03:15 Range/Units Whole Blood Glucose 153 H 70-110 MG/DL White Blood Count 8.8 4.8-10.8 K/uL Red Blood Count 3.64 L 4.50-6.20 MIL/uL Hemoglobin 10.8 L 14.0-18.0 g/dL Hematocrit 33.6 L 42-54 % Mean Corpuscular Volume 92.3 79-99 fL Mean Corpuscular Hemoglobin 29.7 27.0-33.0 pg Mean Corpuscular Hemoglobin Concent 32.1 32.0-36.0 g/dL Red Cell Distribution Width 17.2 H 11.0-15.5 % Platelet Count 329 130-400 K/uL Mean Platelet Volume 10.4 7.5-10.5 fL Immature Granulocyte % (Auto) 0.6 0-1 % Neutrophils (%) (Auto) 56.8 40.0-77.0 % Lymphocytes (%) (Auto) 25.6 21.0-51.0 % Monocytes (%) (Auto) 13.0 3.0-13.0 % Eosinophils (%) (Auto) 3.4 0.0-8.0 % Basophils (%) (Auto) 0.6 0.0-5.0 % Neutrophils # (Auto) 5.0 1.8-7.7 K/uL Lymphocytes # (Auto) 2.3 1.0-4.8 K/uL Monocytes # (Auto) 1.1 H 0.1-1.0 K/uL Eosinophils # (Auto) 0.30 0.00-0.70 K/uL Basophils # (Auto) 0.05 0.00-0.20 K/uL Absolute Immature Granulocyte (auto 0.05 0-1 K/uL Nucleated Red Blood Cells 0.0 0.0-0.19 % Sodium Level 138 136-145 mmol/L Potassium Level 4.1 3.5-5.1 mmol/L Chloride Level 101 101-111 mmol/L Carbon Dioxide Level 27 21-32 mmol/L Blood Urea Nitrogen 19 H 7-18 mg/dL Creatinine 1.3 0.5-1.3 mg/dL Glomerular Filtration Rate Calc 57 >90 mL/min Random Glucose 135 H 70-105 mg/dL Total Calcium 8.7 8.5-10.1 mg/dL Magnesium Level 2.00 1.80-2.40 mg/dL ASSESSMENT: Hospital-acquired pneumonia. Leukocytosis, resolving. 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 Postop anemia. Left Pleural effusion. Diabetes mellitus. Congestive heart failure. Debility. PLAN: Continue on Zosyn. Continue GI prophylaxis. Continue diuretics Monitor electrolytes. Continue physical therapy. Pending insurance approval to [facility]. This case was reviewed and discussed with my supervising physician Dr. Harrell and the above assessment and plan was formulated and agreed upon. ATTESTATION BY PHYSICIAN I have seen and examined the patient. I reviewed the documentation, medical decision making, and treatment plan as noted by the mid-level provider above. I agree with the findings and plan of care. BERENICE HARRELL MD, MIRTA L [facility] Mar 05, 2025 20:50
[2025-03-06 03:54] LABS: NUCLEATED RED BLOOD CELLS 0.0 % (0.0-0.19); PLATELET COUNT (AUTO) 287.0 K/uL (130-400); RED BLOOD CELL COUNT(AUTO) 3.66 MIL/uL (4.50-6.20); RED CELL DISTRIBUTION WIDTH 16.9 % (11.0-15.5); WHITE BLOOD COUNT (AUTO) 8.9 K/uL (4.8-10.8)
[2025-03-06 04:00] VITALS: BP 105/56; PULSE 62; RESP 18; TEMP 97.9
[2025-03-06 04:07] LABS: CREATININE 1.2 mg/dL (0.5-1.3); GLOMERULAR FILTR. RATE CALC 63.0 mL/min (>90); GLUCOSE,RANDOM 107.0 mg/dL (70-105); SODIUM SERUM 137.0 mmol/L (136-145); UREA NITROGEN, BLOOD 19.0 mg/dL (7-18)
[2025-03-06 07:46] VITALS: BP 95/49; PULSE 62; RESP 18; TEMP 97.9
--- NOTE | 2025-03-06 09:02 | PN ---
[facility] PROGRESS NOTE Date Patient Seen: Mar 06, 2025 Time of Visit: 09:02 Supervising Physician: Jaskaran Zhong Primary Care Physician: KELLEY ENCINAS MD Outpatient Specialists: Inpatient Consults: BIS PROBLEM LIST: CAD, status post CABG x3 Left-sided hemothorax s/p thoracentesis HAP Impella and a intra-aortic balloon pump support Type 2 diabetes with hyperglycemia Congested heart failure EF 20% Obstructive coronary artery disease Atherosclerosis Primary hypertension Morbid obesity; BMI 36 Cardiogenic shock; resolved INTERVAL HISTORY: Patient evaluated sitting in his chair at bedside, currently in agreed to work with physical therapy. He denies any chest pain today. Saturation has remained good on room air. He has his LifeVest at bedside, currently pending discharge to SNF facility once authorization is received. at bedside past whether they would be able to take him home tomorrow if they have not heard back from SNF facility, advised to discuss with the primary but that this was not recommended at this time given the patient's extensive surgery. Plan: Pending fdc facility [facility] Continue PT Continue diuresis Supplemental O2 if needed Cardiac rehab Lovenox subQ Antibiotics per ID REVIEW OF SYSTEMS: 12 point ROS reviewed with patient. Pertinent positives mentioned above. Otherwise negative. PHYSICAL EXAM: GENERAL: Patient comfortable in bed, HEENT: EOMI, Sclera non icteric, moist mucosa NECK: Supple, no JVD, trachea midline LUNGS: Clear breath sounds bilaterally. No wheezes HEART: Regular rate and rhythm. Normal S1 and S2, without murmurs sternum wound looks clean, no bleeding or discharge. ABD: Abdomen soft, nontender. Bowel sounds present EXT: Edema and hyperemia to the right ankle have improved compared to yesterday NEURO: Awake alert and oriented Vital Signs (last 8hr) Date Time Temp Pulse Resp B/P (MAP) Pulse Ox O2 Delivery O2 Flow Rate FiO2 03/06/25 07:46 97.9 62 18 95/49 99 Room Air 03/06/25 04:00 97.9 62 18 105/56 95 Room Air LABS: Hematology Labs: Test 03/06/25 03:31 03/05/25 03:26 Range/Units White Blood Count 8.9 4.8-10.8 K/uL Red Blood Count 3.66 L 4.50-6.20 MIL/uL Hemoglobin 10.8 L 14.0-18.0 g/dL Hematocrit 33.8 L 42-54 % Mean Corpuscular Volume 92.3 79-99 fL Mean Corpuscular Hemoglobin 29.5 27.0-33.0 pg Mean Corpuscular Hemoglobin Concent 32.0 32.0-36.0 g/dL Red Cell Distribution Width 16.9 H 11.0-15.5 % Platelet Count 287 130-400 K/uL Mean Platelet Volume 10.2 7.5-10.5 fL Nucleated Red Blood Cells 0.0 0.0-0.19 % Immature Granulocyte % (Auto) 0.6 0-1 % Neutrophils (%) (Auto) 56.8 40.0-77.0 % Lymphocytes (%) (Auto) 25.6 21.0-51.0 % Monocytes (%) (Auto) 13.0 3.0-13.0 % Eosinophils (%) (Auto) 3.4 0.0-8.0 % Basophils (%) (Auto) 0.6 0.0-5.0 % Neutrophils # (Auto) 5.0 1.8-7.7 K/uL Lymphocytes # (Auto) 2.3 1.0-4.8 K/uL Monocytes # (Auto) 1.1 H 0.1-1.0 K/uL Eosinophils # (Auto) 0.30 0.00-0.70 K/uL Basophils # (Auto) 0.05 0.00-0.20 K/uL Absolute Immature Granulocyte (auto 0.05 0-1 K/uL Chemistry Labs: Test 03/06/25 05:45 03/06/25 03:31 Range/Units Whole Blood Glucose 107 70-110 MG/DL Sodium Level 137 136-145 mmol/L Potassium Level 3.9 3.5-5.1 mmol/L Chloride Level 101 101-111 mmol/L Carbon Dioxide Level 25 21-32 mmol/L Blood Urea Nitrogen 19 H 7-18 mg/dL Creatinine 1.2 0.5-1.3 mg/dL Glomerular Filtration Rate Calc 63 >90 mL/min Random Glucose 107 H 70-105 mg/dL Total Calcium 8.8 8.5-10.1 mg/dL Magnesium Level 1.90 1.80-2.40 mg/dL B-Type Natriuretic Peptide 627 H 0-100 pg/mL DIAGNOSTICS / RADIOLOGY RESULTS: [ ] NEURO: Minimize central acting medications as possible. Maintain fall precautions, adequate lighting during the day PULMONARY: Supplemental 02 as needed. Maintain aspiration precautions at all times CARDIOVASCULAR: Follow hemodynamics. Vital signs per facility protocol GI & NUTRITION: Continue with nutritional support. Continue stool softeners and laxatives as needed. KIDNEYS & ELECTROLYTES: Strict monitoring of intake, output and overall fluid balance. Avoid nephrotoxic medications to the extent possible. Medications to be dosed according to renal function. Monitor electrolytes and replace as needed ENDOCRINE: Maintain blood glucose between 100-180 at all times. Hypoglycemia protocol in place INFECTIOUS DISEASE: Trend temperature, WBC and procalcitonin level Follow cultures, deescalate antibiotics as soon as possible. Panculture if new onset fever ONCOLOGY/HEMATOLOGY/COAGULATION: Monitor for s/s of bleeding Monitor hemoglobin, coagulation studies as needed SKIN: Pressure ulcer prevention per facility protocol Specialty mattress ORTHO/REHAB: Continue PT/OT Prophylaxis: Continue GI and DVT prophylaxis Code Status: Full Resuscitation Disposition: as per cardiovascular NAYA TAYLOR PAC Mar 06, 2025 09:02
[2025-03-06 09:05] VITALS: O2SAT 98
[2025-03-06 10:39] VITALS: BP 130/67
[2025-03-06 12:02] VITALS: BP 113/59; PULSE 71; RESP 18; TEMP 98.2
[2025-03-06 16:04] VITALS: BP 113/59; PULSE 71; RESP 18; TEMP 98.2
--- NOTE | 2025-03-06 16:18 | PN ---
INFECTIOUS DISEASE PROGRESS NOTE Date of Service: Mar 06, 2025 SUBJECTIVE: This is a 74-year-old male patient who remains afebrile, temperature is 98.1 and a WBC of 8.9. Patient has completed 10 days of IV antibiotics for pneumonia. Per report patient has been approved to [facility]. No antibiotics needed on discharge. PHYSICAL EXAM EYES: Anicteric. Pupils equal and reactive. HENT: No oral thrush seen, moist Oral mucosa. NECK: Supple, no JVD or thyromegaly. LUNGS: Good air entry. No cough. CHEST: Sternal incision. CARDIOVASCULAR: S1, S2 regular. No murmur heard. ABDOMEN: Soft, non tender, bowel sounds present. CENTRAL NERVOUS SYSTEM: Awake, alert, oriented. SKIN: No rashes, no swelling. Surgical incisions to bilateral lower extremities healing. LYMPHATICS: No peripheral lymphadenopathy. MUSCULOSKELETAL: No joint swelling, erythema or tenderness. EXTREMITIES: No cyanosis or clubbing. Weakness. BACK: No deformity, no pressure ulcer. GENITOURINARY: No dysuria or hematuria. Vital Sign (Last 12 Hours) 03/06/25 03/06/25 03/06/25 03/06/25 07:46 09:05 10:39 10:39 Temp 97.9 Pulse 62 Resp 18 B/P (MAP) 95/49 130/67 130/67 Pulse Ox 99 98 O2 Delivery Room Air Room Air* O2 Flow Rate 0 FiO2 21 03/06/25 03/06/25 12:02 16:04 Temp 98.2 98.2 Pulse 71 71 Resp 18 18 B/P (MAP) 113/59 113/59 Pulse Ox 93 93 O2 Delivery Room Air Room Air Intake & Output (last 24hrs) 03/05/25 03/05/25 03/06/25 15:00 23:00 07:00 Intake Total 505.0 ml 25.0 ml Output Total 600 ml 1400 ml Balance -95.0 ml -1375.0 ml LABS: Laboratory: Test 03/06/25 15:35 03/06/25 03:31 03/05/25 03:26 Range/Units Whole Blood Glucose 130 H 70-110 MG/DL White Blood Count 8.9 4.8-10.8 K/uL Red Blood Count 3.66 L 4.50-6.20 MIL/uL Hemoglobin 10.8 L 14.0-18.0 g/dL Hematocrit 33.8 L 42-54 % Mean Corpuscular Volume 92.3 79-99 fL Mean Corpuscular Hemoglobin 29.5 27.0-33.0 pg Mean Corpuscular Hemoglobin Concent 32.0 32.0-36.0 g/dL Red Cell Distribution Width 16.9 H 11.0-15.5 % Platelet Count 287 130-400 K/uL Mean Platelet Volume 10.2 7.5-10.5 fL Nucleated Red Blood Cells 0.0 0.0-0.19 % Sodium Level 137 136-145 mmol/L Potassium Level 3.9 3.5-5.1 mmol/L Chloride Level 101 101-111 mmol/L Carbon Dioxide Level 25 21-32 mmol/L Blood Urea Nitrogen 19 H 7-18 mg/dL Creatinine 1.2 0.5-1.3 mg/dL Glomerular Filtration Rate Calc 63 >90 mL/min Random Glucose 107 H 70-105 mg/dL Total Calcium 8.8 8.5-10.1 mg/dL Magnesium Level 1.90 1.80-2.40 mg/dL B-Type Natriuretic Peptide 627 H 0-100 pg/mL Immature Granulocyte % (Auto) 0.6 0-1 % Neutrophils (%) (Auto) 56.8 40.0-77.0 % Lymphocytes (%) (Auto) 25.6 21.0-51.0 % Monocytes (%) (Auto) 13.0 3.0-13.0 % Eosinophils (%) (Auto) 3.4 0.0-8.0 % Basophils (%) (Auto) 0.6 0.0-5.0 % Neutrophils # (Auto) 5.0 1.8-7.7 K/uL Lymphocytes # (Auto) 2.3 1.0-4.8 K/uL Monocytes # (Auto) 1.1 H 0.1-1.0 K/uL Eosinophils # (Auto) 0.30 0.00-0.70 K/uL Basophils # (Auto) 0.05 0.00-0.20 K/uL Absolute Immature Granulocyte (auto 0.05 0-1 K/uL ASSESSMENT: Hospital-acquired pneumonia. Leukocytosis, resolving. Multivessel coronary artery disease, s/p CABG on 02/14/2025, s/p surgical remov al of Impella on 2024. Postop anemia. Left Pleural effusion. Diabetes mellitus. Congestive heart failure. Debility. PLAN: Completed 10 days of Zosyn. Patient has been approved to [facility]. No antibiotics on discharge. This case was reviewed and discussed with my supervising physician Dr. Harrell and the above assessment and plan was formulated and agreed upon. ATTESTATION BY PHYSICIAN I have seen and examined the patient. I reviewed the documentation, medical decision making, and treatment plan as noted by the mid-level provider above. I agree with the findings and plan of care. BERENICE HARRELL MD, MIRTA L [facility] Mar 06, 2025 16:18
--- NOTE | 2025-03-06 16:26 | DS ---
Discharge Summary Assessment/Plan: ASSESSMENT: Chest pain rule out ACS: NSTEMI POA Suspected pneumonia findings on Chest X-ray Possible metabolic encephalopathy Hyperglycemia secondary to uncontrolled diabetes POA Hyperlipidemia POA Medication noncompliance, POA Obesity POA VT/Coronary artery disease with cardiac stent POA PLAN: Pending SNF Approval NSTEMI POA: * EKG was done which revealed sinus rhythm heart rate 85 with atrial premature complex anterolateral infarct age indeterminate. Second EKG result revealed sinus rhythm heart rate 73 with left anterior fascicular block. Probable anterolateral infarct age indeterminate. Abnormal T consider ischemia lateral leads. * PERC score was one, Wells score was zero. Very low suspicion for Pulmonary Embolism. * Chest X - ray on 02.25.2025 - Persistent small left pleural effusion with left mid and lower zone airspace opacities, significantly unchanged from prior study. * Thoracentesis done today - removed 1.1 lit of fluid by Dr. Louie and the patient tolerated the procedure well * Chest x-ray done on 02/17/25 show, small stable left pleural effusion with adjacent lung atelectasis. follow up x-ray from 02/22/25 show Cardiomegaly with median sternotomy with cardiac revascularization procedure, there is suggestion of a moderate left-sided pleural effusion. * 2-D ECHO on 02/19/25 show LVEF of 25-30% with segmental akinesis (apical, apical lateral, anteroapical) * Troponin trends [id number] * Left heart catheterization revealed severe three-vessel CAD with occluded mid LAD, 90% proximal left circumflex, 95% distal RCA, and 90% ostial PDA. * As per CT surgeon recommendations Entresto 0.5 each, was held. 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 * On aspirin 81 mg p.o. * Patient is on lasix 20mg IV. * Impella removed * Epinpehrine drip was discontinued and patient was started on Coreg 31.125, * Jardiance 10mg was held due to elevated bicarb. * lifevest as per cardiology * BNP - 462, so to further assess for possible fluid overload, a chest X-ray has been ordered - which showed no acute process Suspected pneumonia findings on Chest X-ray * Chest x-ray done on 02/16/25 show diffuse airspace disease of the left lung, predominantly involving the left lower zone, could be due to an infection or atelectasis. Questionable left pleural effusion. * Chest x-ray done on 02/17/25 show, small stable left pleural effusion with adjacent lung atelectasis. follow up x-ray from 02/19/25 show no interval change. * Patient on Zosyn- Started on 02/20/25 * WBC count on (03/04/25) - 10 * Will monitor with daily labs. Possible metabolic encephalopathy * Chest x-ray done on 02/17/25 show, small stable left pleural effusion with adjacent lung atelectasis. * Patient was started on Vancomycin and cefepime due to elevated WBC levels and findings suggestive of pneumonia on chest x-ray * Cefepime was discontinued on 02/20/25 because the patient was confused, agitated and combative suspecting the cause of his confusion and was started on Zosyn. * Will monitor with daily labs Hyperglycemia secondary to uncontrolled diabetes POA: * HbA1c 13.9 * Following the Endocrinology recommendations. He is on Lantus 15 units, low- dose sliding scale insulin * Jardiance 10mg was held due to elevated bicarb. * We will monitor blood glucose. Hypokalemia Hypomagnesemia - resolved * Potassium 4 - 03.02.2025 * Magnesium 2 (03.04.2025) * We will replete the electrolytes and monitor. * Keep potassium above 4 and magnesium above 2. * We will start Slow-Mag oral t.i.d. once and will keep monitoring magnesium levels. Supportive measures * GI prophylaxis with Famotidine * DVT prophylaxis with Lovenox Home Medications: Reported Medications Brimonidine Tartrate/Timolol (Brimonidine-Timolol 0.2%-0.5%) 0.2 %-0.5 % Drops, 1 DROP OP DAILY for 30 Days, #5 ML 0 Refills 02/10/25 Latanoprost (Latanoprost) 0.005 % Drops, 1 DROP OP HS, ML 0 Refills 02/10/25 Metformin HCl (Metformin HCl) 500 Mg Tablet, 500 MG PO BID, TAB 08/31/15 JULIA YBARRA MD Mar 06, 2025 16:26
--- NOTE | 2025-03-06 16:45 | PN ---
SUBJECTIVE: Status post CABG, Impella supported of 5.5 due to severe congestive heart failure. OBJECTIVE: GENERAL: The patient is awake, alert, in no acute distress. VITAL SIGNS: Stable as recorded in the medical record. CHEST: Sternum stable. Incision healed. LUNGS: Clear. EXTREMITIES: Warm and well perfused. No evidence of DVT, hematoma or infection. ASSESSMENT: Status post CABG. PLAN: * Coronary artery disease, status post surgical revascularization. Continue aspirin and beta blockers as well as Plavix. * DVT prophylaxis. Lovenox 20 mg once a day. * Congestive heart failure. The patient has a LifeVest. * Fluid overload. Lasix mg twice a day. * OT and PT. Transfer to rehab. TID: [id number] RECEIPT: [id number]
--- NOTE | 2025-03-06 18:23 | NUR ---
Patient discharged at this time, all personal items and documentation taken by patient and spouse, including life vest supplies. Patient informed to follow up with primary care physician, retail management trainee, and cardiothoracic surgeon on scheduled dates. Medication reconciliation form faxed to [facility] by [facility], copy given to patient in his discharge folder. Report given to Nurse Cao at 1750, patient discharged with left upper arm PICC line. Telemetry pack was removed, patient transported out of facility via stretcher by EMS.
--- NOTE | 2025-03-06 20:04 | PN ---
Endocrinology progress note DOS: 03/06/25 subjective: glucose are improving/stable and s/p CABG procedure and s/p removal of impella. Home diabetic regimen: metformin 500 mg bid, Hba1c 13.9% s/p thoracentesis. insulin has already been adjusted PAST MEDICAL HISTORY: [ Diabetes, hyperlipidemia, [place]/coronary artery disease ] PAST SURGICAL HISTORY: [ Cardiac stent, cholecystectomy and left inguinal hernia repair ] PAST SOCIAL HISTORY: [ Patient lives with . Patient admits he drinks two beer yesterday. Patient reports he occasional drinks alcohol denies cigarette and recreational drug use. ] FAMILY HISTORY: [ Diabetes, cardiovascular disease, asthma and cancer ] Coded Allergies: No Known Drug Allergies (Unverified Allergy, Unknown, 08/31/15) ASSESSMENT: Hyperglycemia secondary to uncontrolled diabetes POA improving Home diabetic regimen: metformin 500 mg bid, Hba1c 13.9% glucose is improving. NSTEMI POA s/p CABG triple vessel disease s/p CABG hospital acquired pneumonia Hyperlipidemia POA Obesity POA [place]/Coronary artery disease with cardiac stent POA PLAN: OFF insulin drip continue lantus 15 units daily. off regular insulin. Continue medium dose sliding scale insulin. Monitor glucose q x 6 hourly. Keep glucose less than 180 mg/dl. Patient will need insulin at discharge Vitals/Labs Vital Signs Date Time Temp Pulse Resp B/P (MAP) Pulse Ox O2 Delivery O2 Flow Rate FiO2 03/06/25 16:04 98.2 71 18 113/59 93 Room Air 03/06/25 09:05 0 21 Laboratory Tests 03/06/25 03:31 Medications Current Medications Sodium Chloride 1,000 ml @ 0 mls/hr ONCE ONCE IV; Start 02/10/25 at 01:00; Stop 02/10/25 at 00:46; Status DC Sodium Chloride 500 ml @ 0 mls/hr ONCE ONCE IV Last administered on 02/10/25at 00:53; Start 02/10/25 at 01:00; Stop 02/10/25 at 01:01; Status DC Insulin Human Regular 5 unit ONCE ONCE IV Last administered on 02/10/25at 01:30; Start 02/10/25 at 01:30; Stop 02/10/25 at 01:31; Status DC Aspirin 325 mg ONCE ONCE PO Last administered on 02/10/25at 02:32; Start 02/10/25 at 02:30; Stop 02/10/25 at 02:31; Status DC Heparin Sodium/ Dextrose 250 ml @ 0 mls/hr PROTOCOL IV Last administered on 02/10/25at 03:00; Start 02/10/25 at 03:00; Stop 02/10/25 at 17:22; Status DC Heparin Sodium (Porcine) 7,000 unit ONCE ONCE SQ Last administered on 02/10/25at 02:55; Start 02/10/25 at 03:00; Stop 02/10/25 at 03:01; Status DC Acetaminophen 650 mg Q6H PRN PO Last administered on 02/12/25at 17:13; Start 02/10/25 at 05:00; Stop 02/14/25 at 10:17; Status DC Acetaminophen 650 mg Q4H PRN PO; Start 02/10/25 at 05:00; Stop 02/14/25 at 10:05; Status DC Ondansetron HCl 4 mg Q6H PRN IV; Start 02/10/25 at 05:00; Stop 02/14/25 at 10:17; Status DC Nitroglycerin 0.4 mg PROTOCOL PRN SL; Start 02/10/25 at 05:00; Stop 02/14/25 at 09:59; Status DC Famotidine 20 mg DAILY PO Last administered on 02/13/25at 10:53; Start 02/10/25 at 09:00; Stop 02/14/25 at 09:59; Status DC Sodium Chloride 1,000 ml @ 100 mls/hr Q10H IV Last administered on 02/10/25at 14:20; Start 02/10/25 at 05:00; Stop 02/10/25 at 17:22; Status DC Insulin Human Regular INSULIN SLIDING SCAL... Q4H SQ Last administered on 02/10/25at 09:15; Start 02/10/25 at 05:00; Stop 02/10/25 at 11:10; Status DC Dextrose 50 ml AD PRN IV; Start 02/10/25 at 05:00; Stop 02/14/25 at 10:17; Status DC Glucagon 1 mg AD PRN IM; Start 02/10/25 at 05:00; Stop 02/14/25 at 10:17; Status DC Magnesium Sulfate 50 ml @ 0 mls/hr PROTOCOL PRN IV Last administered on 02/12/25at 07:13; Start 02/10/25 at 05:00; Stop 02/14/25 at 10:17; Status DC Potassium Chloride 100 ml @ 100 mls/hr AD PRN IV Last administered on 02/15/25at 05:43; Start 02/10/25 at 05:00; Stop 02/15/25 at 06:27; Status DC Potassium Chloride 20 meq AD PRN PO Last administered on 02/25/25at 09:30; Start 02/10/25 at 05:00; Stop 03/06/25 at 18:26; Status DC Potassium Chloride 20 meq AD PRN PO Last administered on 02/18/25at 20:18; Start 02/10/25 at 05:00; Stop 03/06/25 at 18:26; Status DC Aspirin 81 mg DAILY PO Last administered on 03/06/25at 10:37; Start 02/10/25 at 09:00; Stop 03/06/25 at 18:26; Status DC Insulin Human Regular INSULIN SLIDING SCAL... Q6H6 SQ Last administered on 02/11/25at 17:29; Start 02/10/25 at 12:00; Stop 02/14/25 at 09:59; Status DC Clopidogrel Bisulfate 600 mg ONCE PO Last administered on 02/10/25at 14:19; Start 02/10/25 at 14:00; Stop 02/10/25 at 17:22; Status DC Aspirin 325 mg ONCE PO Last administered on 02/10/25at 14:32; Start 02/10/25 at 14:30; Stop 02/10/25 at 17:22; Status DC Sacubitril/ Valsartan 0.5 each BID PO Last administered on 02/13/25at 21:11; Start 02/10/25 at 21:00; Stop 02/14/25 at 09:59; Status DC Empaglifozin 10 mg DAILY PO Last administered on 02/13/25at 10:52; Start 02/10/25 at 14:30; Stop 02/14/25 at 09:59; Status DC Spironolactone 25 mg DAILY PO Last administered on 02/13/25at 10:52; Start 02/10/25 at 14:30; Stop 02/14/25 at 09:59; Status DC Furosemide 20 mg ONCE IV Last administered on 02/10/25at 17:00; Start 02/10/25 at 17:00; Stop 02/10/25 at 21:00; Status DC Furosemide 20 mg ONCE IV; Start 02/11/25 at 09:00; Stop 02/11/25 at 07:43; Status DC Lidocaine HCl 20 ml STK-MED ONCE .ROUTE; Start 02/10/25 at 15:22; Stop 02/10/25 at 15:23; Status DC Iohexol 35,000 mg STK-MED ONCE IV; Start 02/10/25 at 15:22; Stop 02/10/25 at 15:23; Status DC Iohexol 50 ml STK-MED ONCE IV; Start 02/10/25 at 15:22; Stop 02/10/25 at 15:23; Status DC Heparin Sodium (Porcine) 10,000 unit STK-MED ONCE .ROUTE; Start 02/10/25 at 15:23; Stop 02/10/25 at 15:23; Status DC Heparin Sodium/ Sodium Chloride 1,000 ml @ As Directed STK-MED ONCE IV; Start 02/10/25 at 15:23; Stop 02/10/25 at 15:23; Status DC Nitroglycerin 50 mg STK-MED ONCE .ROUTE; Start 02/10/25 at 15:23; Stop 02/10/25 at 15:23; Status DC Heparin Sodium/ Sodium Chloride 500 ml @ As Directed STK-MED ONCE IV; Start 02/10/25 at 15:35; Stop 02/10/25 at 15:35; Status DC Fentanyl Citrate 100 mcg STK-MED ONCE .ROUTE; Start 02/10/25 at 15:39; Stop 02/10/25 at 15:40; Status DC Midazolam HCl 2 mg STK-MED ONCE .ROUTE; Start 02/10/25 at 15:40; Stop 02/10/25 at 15:40; Status DC Bivalirudin 250 mg STK-MED ONCE IV; Start 02/10/25 at 16:15; Stop 02/10/25 at 16:15; Status DC Heparin Sodium (Porcine) 7,000 unit ONCE ONCE IV Last administered on 02/11/25at 05:46; Start 02/11/25 at 05:30; Stop 02/11/25 at 05:31; Status DC Heparin Sodium/ Dextrose 250 ml @ 0 mls/hr Q6H IV Last administered on 02/13/25at 13:01; Start 02/11/25 at 06:30; Stop 02/14/25 at 09:59; Status DC Clopidogrel Bisulfate 75 mg DAILY PO; Start 02/11/25 at 09:00; Stop 02/11/25 at 07:28; Status DC Insulin Glargine 15 units DAILY08 SQ Last administered on 02/12/25at 08:54; Start 02/11/25 at 08:00; Stop 02/13/25 at 05:24; Status DC Furosemide 20 mg DAILY PO Last administered on 02/13/25at 10:52; Start 02/11/25 at 09:00; Stop 02/14/25 at 09:59; Status DC Insulin Human Regular 3 unit TIDAC SQ Last administered on 02/12/25at 16:31; Start 02/12/25 at 07:30; Stop 02/14/25 at 09:59; Status DC Metoprolol Tartrate 12.5 mg BID PO Last administered on 02/14/25at 06:44; Start 02/12/25 at 09:00; Stop 02/14/25 at 09:59; Status DC Potassium Chloride 40 meq BID ONCE PO; Start 02/12/25 at 21:00; Stop 02/12/25 at 21:01; Status DC Magnesium Chloride 64 mg Q8H6 ONCE PO; Start 02/12/25 at 14:00; Stop 02/12/25 at 14:01; Status DC Heparin Sodium (Porcine) *calculation based on ACTUAL B... AD PRN IV Last administered on 02/12/25at 20:16; Start 02/12/25 at 21:00; Stop 02/14/25 at 09:59; Status DC Insulin Glargine 12 units DAILY08 SQ Last administered on 02/13/25at 10:51; Start 02/13/25 at 08:00; Stop 02/14/25 at 09:59; Status DC Cefazolin Sodium 2 gm ONCALL IVP Last administered on 02/14/25at 08:50; Start 02/13/25 at 20:00; Stop 02/14/25 at 18:51; Status DC Epinephrine HCl 10 mg/Sodium Chloride 250 ml @ 0 mls/hr AD PRN IV Last administered on 02/20/25at 17:32; Start 02/14/25 at 06:30; Stop 03/06/25 at 18:26; Status DC Norepinephrine Bitartrate 250 ml @ 0 mls/hr AD PRN IV Last administered on 02/17/25at 01:06; Start 02/14/25 at 06:30; Stop 03/06/25 at 18:26; Status DC Aminocaproic Acid 11809 mg/Sodium Chloride 480 ml @ 0 mls/hr AD PRN IV; Start 02/14/25 at 06:30; Stop 02/23/25 at 11:52; Status DC Epinephrine HCl 10 mg/Sodium Chloride 250 ml @ 0 mls/hr AD PRN IV; Start 02/14/25 at 07:00; Stop 02/14/25 at 06:51; Status DC Norepinephrine Bitartrate 250 ml @ 0 mls/hr AD PRN IV; Start 02/14/25 at 07:00; Stop 02/14/25 at 06:51; Status DC Aminocaproic Acid 85226 mg/Sodium Chloride 480 ml @ 0 mls/hr AD PRN IV; Start 02/14/25 at 07:00; Stop 02/14/25 at 06:51; Status DC Cefazolin Sodium 2 gm STK-MED ONCE .ROUTE; Start 02/14/25 at 06:53; Stop 02/14/25 at 06:53; Status DC Nitroglycerin/ Dextrose 1 ml @ As Directed STK-MED ONCE .ROUTE; Start 02/14/25 at 07:00; Stop 02/14/25 at 07:00; Status DC Cefazolin Sodium 1 gm STK-MED ONCE .ROUTE Last administered on 02/14/25at 10:09; Start 02/14/25 at 07:37; Stop 02/14/25 at 07:38; Status DC Heparin Sodium/ Sodium Chloride 500 ml @ As Directed STK-MED ONCE IV; Start 02/14/25 at 07:38; Stop 02/14/25 at 07:38; Status DC Papaverine HCl 60 mg STK-MED ONCE .ROUTE Last administered on 02/14/25at 10:10; Start 02/14/25 at 07:38; Stop 02/14/25 at 07:38; Status DC Midazolam HCl 2 mg STK-MED ONCE .ROUTE; Start 02/14/25 at 08:14; Stop 02/14/25 at 08:14; Status DC Ketamine HCl 500 mg STK-MED ONCE IJ; Start 02/14/25 at 08:16; Stop 02/14/25 at 08:16; Status DC Protamine Sulfate 250 mg STK-MED ONCE IV; Start 02/14/25 at 08:17; Stop 02/14/25 at 08:17; Status DC Lidocaine HCl 100 mg STK-MED ONCE .ROUTE; Start 02/14/25 at 08:17; Stop 02/14/25 at 08:17; Status DC Heparin Sodium (Porcine) 10,000 unit STK-MED ONCE .ROUTE; Start 02/14/25 at 08:17; Stop 02/14/25 at 08:17; Status DC Epinephrine HCl 1 mg STK-MED ONCE .ROUTE; Start 02/14/25 at 08:17; Stop 02/14/25 at 08:17; Status DC Sodium Bicarbonate 200 ml @ As Directed STK-MED ONCE .ROUTE; Start 02/14/25 at 08:17; Stop 02/14/25 at 08:17; Status DC Norepinephrine Bitartrate 4 mg STK-MED ONCE IV; Start 02/14/25 at 08:17; Stop 02/14/25 at 08:17; Status DC Propofol 200 mg STK-MED ONCE IV; Start 02/14/25 at 08:19; Stop 02/14/25 at 08:19; Status DC Fentanyl Citrate 1,000 mcg STK-MED ONCE IJ; Start 02/14/25 at 08:19; Stop 02/14/25 at 08:19; Status DC Midazolam HCl 2 mg STK-MED ONCE .ROUTE; Start 02/14/25 at 08:20; Stop 02/14/25 at 08:20; Status DC Rocuronium [place] 50 mg STK-MED ONCE .ROUTE; Start 02/14/25 at 08:20; Stop 02/14/25 at 08:20; Status DC Acetaminophen 1,000 mg Q6H6 IV Last administered on 02/15/25at 12:14; Start 02/14/25 at 14:00; Stop 02/15/25 at 13:59; Status DC Aspirin 81 mg ONCE ONCE NG Last administered on 02/14/25at 13:56; Start 02/14/25 at 14:00; Stop 02/14/25 at 14:01; Status DC Docusate Sodium 100 mg BID PO Last administered on 03/06/25at 10:37; Start 02/14/25 at 21:00; Stop 03/06/25 at 18:26; Status DC Lactulose 20 gm BID PRN PO Last administered on 02/28/25at 15:56; Start 02/14/25 at 10:00; Stop 03/06/25 at 18:26; Status DC Furosemide 20 mg Q12H PO Last administered on 02/16/25at 08:19; Start 02/16/25 at 09:00; Stop 02/16/25 at 10:21; Status DC Furosemide 20 mg Q12H IV Last administered on 02/15/25at 20:16; Start 02/15/25 at 09:00; Stop 02/16/25 at 08:59; Status DC Atorvastatin Calcium 40 mg HS PO Last administered on 03/05/25at 22:34; Start 02/14/25 at 21:00; Stop 03/06/25 at 18:26; Status DC Enoxaparin Sodium 30 mg DAILY SQ Last administered on 03/06/25at 10:38; Start 02/17/25 at 09:00; Stop 03/06/25 at 18:26; Status DC Metoprolol Tartrate 12.5 mg BID PO; Start 02/16/25 at 09:00; Stop 02/20/25 at 09:01; Status DC Magnesium Hydroxide 30 ml DAILY PRN PO; Start 02/14/25 at 10:00; Stop 03/06/25 at 18:26; Status DC Dexmedetomidine/ Sodium Chloride 400 mcg PROTOCOL IV; Start 02/14/25 at 10:00; Stop 02/15/25 at 09:59; Status DC Acetaminophen 650 mg Q6H PRN PO; Start 02/14/25 at 10:00; Stop 03/06/25 at 18:26; Status DC Heparin Sodium (Porcine) 10,000 unit STK-MED ONCE .ROUTE; Start 02/14/25 at 10:00; Stop 02/14/25 at 10:00; Status DC Sodium Chloride 1,000 ml @ 10 mls/hr ONCE IV; Start 02/14/25 at 10:00; Stop 02/15/25 at 09:59; Status DC Sodium Chloride 10 ml Q8H PRN IVP; Start 02/14/25 at 10:00; Stop 03/06/25 at 18:26; Status DC Morphine Sulfate 0.5 mg Q2H PRN IV; Start 02/14/25 at 10:00; Stop 02/15/25 at 09:59; Status DC Morphine Sulfate 1 mg Q2H PRN IV Last administered on 02/14/25at 14:23; Start 02/14/25 at 10:30; Stop 02/19/25 at 13:29; Status DC Acetaminophen 650 mg Q4H PRN RC; Start 02/14/25 at 10:00; Stop 02/23/25 at 11:52; Status DC Ondansetron HCl 4 mg Q6H PRN IV; Start 02/14/25 at 10:00; Stop 03/06/25 at 18:26; Status DC Sodium Chloride 500 ml @ 0 mls/hr AD IV; Start 02/14/25 at 10:00; Stop 03/06/25 at 18:26; Status DC Nitroglycerin/ Dextrose 0 ml @ 0 mls/hr AD IV; Start 02/14/25 at 10:00; Stop 02/17/25 at 09:59; Status DC Propofol 100 ml @ 0 mls/hr AD PRN IV; Start 02/14/25 at 10:00; Stop 02/18/25 at 09:59; Status DC Norepinephrine Bitartrate 8 mg/ Dextrose 250 ml @ 0 mls/hr AD PRN IV; Start 02/14/25 at 10:00; Stop 02/14/25 at 10:14; Status DC Epinephrine HCl 10 mg/Sodium Chloride 250 ml @ 0 mls/hr AD PRN IV; Start 02/14/25 at 10:00; Stop 02/14/25 at 10:14; Status DC Aminocaproic Acid 14170 mg/Sodium Chloride 310 ml @ 25 mls/hr AD IV; Start 02/14/25 at 10:00; Stop 02/14/25 at 10:19; Status DC Calcium Gluconate 1 gm/Sodium Chloride 60 ml @ 200 mls/hr AD PRN IV Last administered on 02/21/25at 08:36; Start 02/14/25 at 10:00; Stop 03/06/25 at 18:26; Status DC Magnesium Sulfate 50 ml @ 12.5 mls/hr AD PRN IV Last administered on 03/06/25at 10:39; Start 02/14/25 at 10:00; Stop 03/06/25 at 18:26; Status DC Potassium Chloride 100 ml @ 100 mls/hr AD PRN IV Last administered on 02/21/25at 16:43; Start 02/14/25 at 10:00; Stop 03/06/25 at 18:26; Status DC Potassium Phosphate 250 ml @ 42 mls/hr AD PRN IV; Start 02/14/25 at 10:00; Stop 03/06/25 at 18:26; Status DC Albumin Human 250 ml @ 0 mls/hr AD PRN IV Last administered on 02/14/25at 14:42; Start 02/14/25 at 10:00; Stop 02/14/25 at 14:42; Status DC Acetaminophen 650 mg Q4H PRN PO; Start 02/14/25 at 10:00; Stop 03/06/25 at 18:26; Status DC Insulin Human Regular 100 unit/ Sodium Chloride 100 ml @ 0 mls/hr AD IV Last administered on 02/15/25at 06:30; Start 02/14/25 at 10:00; Stop 02/16/25 at 09:59; Status DC Cefazolin Sodium 2 gm Q8H IVPB Last administered on 02/15/25at 06:25; Start 02/14/25 at 15:00; Stop 02/15/25 at 07:01; Status DC Tramadol HCl 25 mg Q6H PRN PO; Start 02/14/25 at 10:00; Stop 02/19/25 at 09:59; Status DC Tramadol HCl 50 mg Q6H PRN PO; Start 02/14/25 at 10:00; Stop 02/19/25 at 09:59; Status DC Famotidine 20 mg BID IV Last administered on 02/15/25at 20:15; Start 02/14/25 at 21:00; Stop 02/16/25 at 07:58; Status DC Sodium Bicarbonate 50 meq AD PRN IV Last administered on 02/16/25at 15:25; Start 02/14/25 at 10:00; Stop 02/17/25 at 09:59; Status DC Dextrose 50 ml AD PRN IV; Start 02/14/25 at 10:00; Stop 03/06/25 at 18:26; Status DC Glucagon 1 mg AD PRN IM; Start 02/14/25 at 10:00; Stop 03/06/25 at 18:26; Status DC Dobutamine HCl 250 mg STK-MED ONCE .ROUTE; Start 02/14/25 at 10:28; Stop 02/14/25 at 10:28; Status DC Sodium Bicarbonate 50 ml @ As Directed STK-MED ONCE .ROUTE; Start 02/14/25 at 10:52; Stop 02/14/25 at 10:52; Status DC Sodium Bicarbonate 200 ml @ As Directed STK-MED ONCE .ROUTE; Start 02/14/25 at 10:53; Stop 02/14/25 at 10:53; Status DC Vasopressin 20 units STK-MED ONCE .ROUTE; Start 02/14/25 at 11:51; Stop 02/14/25 at 11:51; Status DC Rocuronium [place] 50 mg STK-MED ONCE .ROUTE; Start 02/14/25 at 12:14; Stop 02/14/25 at 12:14; Status DC Sodium Bicarbonate 100 ml @ As Directed STK-MED ONCE .ROUTE; Start 02/14/25 at 12:16; Stop 02/14/25 at 12:16; Status DC Vasopressin 40 units/Sodium Chloride 40 ml @ 0 mls/hr PROTOCOL IV Last administered on 02/14/25at 22:11; Start 02/14/25 at 13:00; Stop 03/06/25 at 18:26; Status DC Albumin Human 250 ml @ 0 mls/hr AD IV Last administered on 02/18/25at 10:27; Start 02/14/25 at 15:30; Stop 02/18/25 at 10:40; Status DC Calcium Gluconate 2 gm/Sodium Chloride 100 ml @ 0 mls/hr ONCE ONCE IV Last administered on 02/14/25at 16:15; Start 02/14/25 at 16:30; Stop 02/14/25 at 16:31; Status DC Pharmacy Profile Note 1 each ONCE MISC; Start 02/14/25 at 18:00; Stop 02/14/25 at 18:27; Status DC Sodium Bicarbonate 25 meq/Dextrose 1,025 ml @ 0 mls/hr Q0M IV Last administered on 02/18/25at 13:03; Start 02/14/25 at 18:00; Stop 03/06/25 at 18:26; Status DC Famotidine 20 mg BID PO Last administered on 02/16/25at 20:03; Start 02/16/25 at 09:00; Stop 02/17/25 at 07:09; Status DC Insulin Human Regular INSULIN SLIDING SCAL... ACHS SQ Last administered on 02/27/25at 21:34; Start 02/16/25 at 11:30; Stop 02/28/25 at 05:39; Status DC Cefepime HCl 1 gm Q12H IVPB Last administered on 02/19/25at 22:54; Start 02/16/25 at 10:30; Stop 02/20/25 at 08:16; Status DC Furosemide 100 mg/ Sodium Chloride 100 ml @ 0 mls/hr PROTOCOL IV Last administered on 02/19/25at 11:35; Start 02/16/25 at 10:30; Stop 02/20/25 at 09:01; Status DC Vancomycin HCl 500 ml @ 250 mls/hr ONCE ONCE IV Last administered on 02/16/25at 11:39; Start 02/16/25 at 12:00; Stop 02/16/25 at 13:59; Status DC Sodium Chloride 4 ml STK-MED ONCE IH Last administered on 02/16/25at 10:53; Start 02/16/25 at 10:44; Stop 02/16/25 at 10:44; Status DC Sodium Chloride 4 ml STK-MED ONCE IH Last administered on 02/16/25at 14:33; Start 02/16/25 at 14:26; Stop 02/16/25 at 14:26; Status DC Sodium Chloride 4 ml STK-MED ONCE IH Last administered on 02/16/25at 19:16; Start 02/16/25 at 18:32; Stop 02/16/25 at 18:32; Status DC Famotidine 20 mg DAILY PO Last administered on 03/06/25at 10:38; Start 02/17/25 at 09:00; Stop 03/06/25 at 18:26; Status DC Latanoprost 1 DROP FOR EACH EYE HS OP Last administered on 03/05/25at 22:42; Start 02/17/25 at 21:00; Stop 03/06/25 at 18:26; Status DC Home Med (Brimonidine-Timolol 0.2%/0.5% EYE DROPS) DAILY OP Last administered on 03/06/25at 10:53; Start 02/18/25 at 09:00; Stop 03/06/25 at 18:26; Status DC Albumin Human 250 ml @ 0 mls/hr AD IV; Start 02/18/25 at 10:30; Stop 02/20/25 at 09:03; Status DC Vancomycin HCl 1 each AD IV; Start 02/18/25 at 11:00; Stop 02/24/25 at 12:15; Status DC Vancomycin HCl 250 ml @ 125 mls/hr Q12H IV Last administered on 02/19/25at 11:20; Start 02/18/25 at 11:30; Stop 02/21/25 at 05:33; Status DC Potassium Chloride 20 meq BID PO Last administered on 03/06/25at 10:36; Start 02/19/25 at 10:30; Stop 03/06/25 at 18:26; Status DC Dexmedetomidine/ Sodium Chloride 400 mcg STK-MED ONCE IV Last administered on 02/20/25at 07:08; Start 02/20/25 at 07:00; Stop 02/20/25 at 07:00; Status DC Dexmedetomidine/ Sodium Chloride 400 mcg PROTOCOL IV Last administered on 02/22/25at 05:51; Start 02/20/25 at 07:30; Stop 02/22/25 at 15:01; Status DC Carvedilol 3.125 mg BID PO; Start 02/20/25 at 21:00; Stop 02/24/25 at 06:13; Status DC Spironolactone 25 mg DAILY PO Last administered on 03/06/25at 10:37; Start 02/20/25 at 09:00; Stop 03/06/25 at 18:26; Status DC Empaglifozin 10 mg DAILY PO Last administered on 02/22/25at 09:38; Start 02/20/25 at 09:00; Stop 02/22/25 at 15:01; Status DC Albumin Human 50 ml @ 0 mls/hr Q12H9 IV Last administered on 02/24/25at 08:15; Start 02/20/25 at 09:00; Stop 02/24/25 at 08:42; Status DC Furosemide 20 mg Q12H IV Last administered on 02/25/25at 21:27; Start 02/20/25 at 09:00; Stop 02/26/25 at 09:43; Status DC Pharmacy Profile Note 1 each ONCE MISC; Start 02/20/25 at 11:30; Stop 02/20/25 at 11:19; Status DC Piperacillin Sod/ Tazobactam Sod 50 ml @ 12.5 mls/hr Q8H IVPB Last administered on 02/24/25at 11:45; Start 02/20/25 at 11:30; Stop 02/24/25 at 18:10; Status DC Vancomycin HCl 250 ml @ 125 mls/hr Q24H IV Last administered on 02/23/25at 06:28; Start 02/21/25 at 06:00; Stop 02/24/25 at 05:57; Status DC Insulin Glargine 10 units DAILY SQ Last administered on 02/22/25at 11:54; Start 02/21/25 at 09:00; Stop 02/22/25 at 19:17; Status DC Calcium Gluconate 1 gm STK-MED ONCE .ROUTE; Start 02/21/25 at 08:34; Stop 02/21/25 at 08:34; Status DC Etomidate 20 mg STK-MED ONCE .ROUTE; Start 02/21/25 at 12:27; Stop 02/21/25 at 12:28; Status DC Fentanyl Citrate 100 mcg STK-MED ONCE .ROUTE; Start 02/21/25 at 12:30; Stop 02/21/25 at 12:30; Status DC Rocuronium [place] 50 mg STK-MED ONCE .ROUTE; Start 02/21/25 at 12:30; Stop 02/21/25 at 12:30; Status DC Lidocaine HCl 20 ml STK-MED ONCE .ROUTE; Start 02/21/25 at 12:31; Stop 02/21/25 at 12:31; Status DC Cefazolin Sodium 1 gm STK-MED ONCE .ROUTE; Start 02/21/25 at 12:31; Stop 02/21/25 at 12:32; Status DC Bupivacaine HCl 2.5 mg STK-MED ONCE IJ; Start 02/21/25 at 12:32; Stop 02/21/25 at 12:32; Status DC Propofol 200 mg STK-MED ONCE IV; Start 02/21/25 at 12:35; Stop 02/21/25 at 12:35; Status DC Lidocaine HCl 100 mg STK-MED ONCE .ROUTE; Start 02/21/25 at 12:46; Stop 02/21/25 at 12:46; Status DC Cefazolin Sodium 1 gm STK-MED ONCE .ROUTE; Start 02/21/25 at 12:51; Stop 02/21/25 at 12:51; Status DC Rocuronium [place] 50 mg STK-MED ONCE .ROUTE; Start 02/21/25 at 13:03; Stop 02/21/25 at 13:03; Status DC Cefazolin Sodium 2 gm STK-MED ONCE IVPB Last administered on 02/21/25at 12:53; Start 02/21/25 at 12:53; Stop 02/21/25 at 14:14; Status DC Lidocaine HCl 20 ml STK-MED ONCE INJ Last administered on 02/21/25at 12:18; Start 02/21/25 at 12:18; Stop 02/21/25 at 14:14; Status DC Bupivacaine HCl 75 mg STK-MED ONCE IJ Last administered on 02/21/25at 12:18; Start 02/21/25 at 12:18; Stop 02/21/25 at 14:14; Status DC Insulin Glargine 12 units DAILY SQ Last administered on 02/27/25at 17:30; Start 02/23/25 at 09:00; Stop 02/28/25 at 05:39; Status DC Dexmedetomidine/ Sodium Chloride 400 mcg PROTOCOL IV Last administered on 02/23/25at 00:17; Start 02/23/25 at 00:00; Stop 03/06/25 at 18:26; Status DC Midodrine 10 mg TID PO Last administered on 03/06/25at 13:28; Start 02/23/25 at 14:00; Stop 03/06/25 at 18:26; Status DC Prednisone 20 mg DAILY PO Last administered on 02/26/25at 09:50; Start 02/23/25 at 12:30; Stop 02/26/25 at 13:00; Status DC Vancomycin HCl 250 ml @ 125 mls/hr Q24H IV Last administered on 02/24/25at 06:26; Start 02/24/25 at 06:30; Stop 02/24/25 at 12:15; Status DC Carvedilol 3.125 mg BID PO Last administered on 03/06/25at 10:39; Start 02/24/25 at 09:00; Stop 03/06/25 at 18:26; Status DC Empaglifozin 10 mg DAILY PO Last administered on 02/24/25at 08:47; Start 02/24/25 at 09:00; Stop 02/24/25 at 13:01; Status DC Piperacillin Sod/ Tazobactam Sod 50 ml @ 12.5 mls/hr Q8H6 IVPB Last administered on 03/05/25at 22:50; Start 02/24/25 at 22:00; Stop 03/06/25 at 00:59; Status DC Furosemide 40 mg Q12H IV Last administered on 03/01/25at 09:28; Start 02/26/25 at 10:00; Stop 03/01/25 at 11:00; Status DC Insulin Glargine 15 units DAILY SQ Last administered on 03/06/25at 10:52; Start 02/28/25 at 09:00; Stop 03/06/25 at 18:26; Status DC Insulin Human Regular INSULIN SLIDING SCAL... ACHS SQ Last administered on 03/06/25at 12:44; Start 02/28/25 at 07:30; Stop 03/06/25 at 18:26; Status DC Furosemide 20 mg Q12H IV Last administered on 03/06/25at 10:36; Start 03/01/25 at 22:00; Stop 03/06/25 at 18:26; Status DC EUGENE ZARATE MD Mar 06, 2025 20:04
== END 2025-03-06 18:20 | DRG 1 ==
LOC: EDH 00:29 → EDHIP 04:39 → 2AH 12:13 → 2CV 02-14 07:53 → 2BH 02-17 04:36 → 2CH 02-23 06:42 → 2DH 02-24 18:05
PROVIDERS: ADMIT Internal Medicine; ATTEND Internal Medicine
PROC: 4A023N7 Measurement of Cardiac Sampling and Pressure, Left Heart, Percutaneous Approach (ICD-10-PCS; principal; 2025-02-10)
PROC: B2111ZZ Fluoroscopy of Multiple Coronary Arteries using Low Osmolar Contrast (ICD-10-PCS; 2025-02-10)
PROC: B2151ZZ Fluoroscopy of Left Heart using Low Osmolar Contrast (ICD-10-PCS; 2025-02-10)
PROC: 06BQ4ZZ Excision of Left Saphenous Vein, Percutaneous Endoscopic Approach (ICD-10-PCS; 2025-02-14)
PROC: X2HX0F9 Insertion of Conduit to Short-term External Heart Assist System into Thoracic Aorta, Ascending, Open Approach, New Technology Group 9 (ICD-10-PCS; 2025-02-14)
PROC: 5A0221D Assistance with Cardiac Output using Impeller Pump, Continuous (ICD-10-PCS; 2025-02-14)
PROC: 0PH000Z Insertion of Rigid Plate Internal Fixation Device into Sternum, Open Approach (ICD-10-PCS; 2025-02-14)
PROC: 02L70CK Occlusion of Left Atrial Appendage with Extraluminal Device, Open Approach (ICD-10-PCS; 2025-02-14)
PROC: B24BZZ4 Ultrasonography of Heart with Aorta, Transesophageal (ICD-10-PCS; 2025-02-14)
PROC: 5A02210 Assistance with Cardiac Output using Balloon Pump, Continuous (ICD-10-PCS; 2025-02-14 07:30)
PROC: 02HA0RZ Insertion of Short-term External Heart Assist System into Heart, Open Approach (ICD-10-PCS; 2025-02-14 07:30)
PROC: 02100Z9 Bypass Coronary Artery, One Artery from Left Internal Mammary, Open Approach (ICD-10-PCS; 2025-02-14 07:30)
PROC: 021109W Bypass Coronary Artery, Two Arteries from Aorta with Autologous Venous Tissue, Open Approach (ICD-10-PCS; 2025-02-14 07:30)
PROC: 02PA3RZ Removal of Short-term External Heart Assist System from Heart, Percutaneous Approach (ICD-10-PCS; 2025-02-21)
PROC: 05HY33Z Insertion of Infusion Device into Upper Vein, Percutaneous Approach (ICD-10-PCS; 2025-02-22)
PROC: 0W9B3ZZ Drainage of Left Pleural Cavity, Percutaneous Approach (ICD-10-PCS; 2025-02-26)
DX: I21.4 Non-ST elevation (NSTEMI) myocardial infarction (principal); G93.41 Metabolic encephalopathy; J18.9 Pneumonia, unspecified organism; R57.0 Cardiogenic shock; J95.1 Acute pulmonary insufficiency following thoracic surgery; I50.43 Acute on chronic combined systolic (congestive) and diastolic (congestive) heart failure; J94.2 Hemothorax; D62 Acute posthemorrhagic anemia; I11.0 Hypertensive heart disease with heart failure; E11.65 Type 2 diabetes mellitus with hyperglycemia; E66.01 Morbid (severe) obesity due to excess calories; J98.11 Atelectasis; Y95 Nosocomial condition; I25.10 Atherosclerotic heart disease of native coronary artery without angina pectoris; I25.5 Ischemic cardiomyopathy; E78.00 Pure hypercholesterolemia, unspecified; I44.4 Left anterior fascicular block; I25.2 Old myocardial infarction; Z68.36 Body mass index [BMI] 36.0-36.9, adult; Z79.4 Long term (current) use of insulin; Z79.82 Long term (current) use of aspirin; Z79.84 Long term (current) use of oral hypoglycemic drugs; Z79.899 Other long term (current) drug therapy; Z82.49 Family history of ischemic heart disease and other diseases of the circulatory system; Z82.5 Family history of asthma and other chronic lower respiratory diseases; Z83.3 Family history of diabetes mellitus; Z86.73 Personal history of transient ischemic attack (TIA), and cerebral infarction without residual deficits; Z91.148 Patient's other noncompliance with medication regimen for other reason; Z95.5 Presence of coronary angioplasty implant and graft
CPT/HCPCS: 32554; 36415; 36569; 36600; 71045; 73600; 76604; 80048; 80053; 80061; 80202; 81001; 82010; 82140; 82330; 82435; 82550; 82803; 82947; 82948; 83036; 83540; 83550; 83605; 83735; 83880; 84100; 84132; 84295; 84443; 84484; 85018; 85025; 85027; 85347; 85384; 85610; 85651; 85730; 86850; 86900; 86901; 86923; 87071; 87086; 87205; 87641; 93005; 93306; 93308; 93312; 93325; 93356; 93458; 93970; 94002; 94010; 94150; 94640; 96372; 96374; 99156; 99157; 99285; A4450; A7048; C1769; C1894; G0378; J0169; J0583; J0612; J0690; J0692; J1250; J1644; J1650; J1815; J1938; J2003; J2250; J2270; J2440; J2543; J2704; J2720; J3010; J3373; J3475; J3480; J3490; J7030; J7040; J7050; J7070; P9045; P9047; Q9967; A4213; A4215; A4216; A4221; A4222; A4223; A4351; A4649; A4663; A4930; A6204; A7040; A9900; C1713; C1751; C1760; C1768; C1776; C1887; J0665; J1308; J3375; Q9965